=== PATIENT | male | born 1940 | race Caucasian/White ===

== ENCOUNTER → 2016-10-01 | Outpatient (CLI) | payer OTHER ==
[2016-10-01 12:23] LABS: HEMATOCRIT 45.4 % (42-52); MEAN CELL VOLUME 103.2 fL (80-100); MEAN CORPUSCULAR HEMOGLOBIN 35.5 pg (25-34); MEAN CORPUSCULAR HGB CONC 34.4 g/dl (32-36); MEAN PLATELET VOLUME 10.2 fL (7.4-10.4); PLATELET COUNT 212 K/uL (130-400); WHITE BLOOD COUNT 6.31 K/uL (4.8-10.8)
[2016-10-01 13:14] LABS: CALCIUM 9.3 mg/dl (8.5-10.1)
[2016-10-01 13:18] LABS: ALT/SGPT 28 U/L (12-78); BLOOD UREA NITROGEN 20 mg/dl (7-18); BUN/CREATININE RATIO 18.1 (10-20); CARBON DIOXIDE 28 mmol/L (21-32); CHLORIDE 105 mmol/L (98-107); CHOLESTEROL 207 mg/dl (0-200); GLUCOSE 104 mg/dl (70-99); POTASSIUM 4.3 mmol/L (3.5-5.1); SODIUM 139 mmol/L (136-145); TRIGLYCERIDES 67 mg/dl (0-150); VERY LOW DENSITY LIPOPROT CALC 13 mg/dl
[2016-10-01 13:28] LABS: ALKALINE PHOSPHATASE 67 U/L (45-117); AST/SGOT 24 U/L (15-37); CHOLESTEROL/HDL RATIO 2.9; HDL CHOLESTEROL 71 mg/dl; LDL CHOLESTEROL CALCULATED 123 mg/dl
--- NOTE | 2016-10-07 13:09 | CODING QUERY MEDICAL NECESSITY ---
SUPPORTING DIAGNOSIS NEEDED A supporting diagnosis is required for the test/procedure performed on this patient in order for us to be reimbursed by the patient's insurance. Please provide a supporting diagnosis for the following test/procedure listed below next to the test name along with your signature. *If there is no additional diagnosis for this patient that would support the following test/procedure please document that below next to the test/procedure. Test(s)/Procedure(s) that require a supporting diagnosis: DOS 10/01 * Vitamin D DIAGNOSIS: * Vitamin B12 DIAGNOSIS: Provider Signature: Date: Thank you Shanita Lynne Health Information Management Once completed, please kindly fax back to [phone] For questions please call [phone]
== END | disposition home or self-care (01) ==
LOC: C.LABBFT 08:48
PROVIDERS: ATTEND Family Medicine
DX: R14.0 Abdominal distension (gaseous) (principal); R53.83 Other fatigue; E66.9 Obesity, unspecified; I49.9 Cardiac arrhythmia, unspecified; E55.9 Vitamin D deficiency, unspecified

== ENCOUNTER → 2016-12-17 | Outpatient (CLI) | payer OTHER | END | disposition home or self-care (01) | LOC: C.LABPVFM 11:46 | PROVIDERS: ATTEND Nurse Practitioner Family | DX: L02.511 Cutaneous abscess of right hand (principal) ==

== ENCOUNTER → 2017-04-03 | Outpatient (CLI) | payer OTHER ==
[2017-04-03 13:38] LABS: BLOOD UREA NITROGEN 12 mg/dl (7-18); BUN/CREATININE RATIO 14.2 (10-20); CALCIUM 8.4 mg/dl (8.5-10.1); CARBON DIOXIDE 26 mmol/L (21-32); CHLORIDE 108 mmol/L (98-107); CREATININE 0.87 mg/dl (0.60-1.40); GLUCOSE 93 mg/dl (70-99); POTASSIUM 4.2 mmol/L (3.5-5.1); SODIUM 140 mmol/L (136-145)
[2017-04-03 13:46] LABS: ESTIMATED AVERAGE GLUCOSE 108 mg/dl; HA1C FLAG Normal (Normal)
[2017-04-03 13:56] LABS: ALKALINE PHOSPHATASE 71 U/L (45-117); ALT/SGPT 32 U/L (12-78); AST/SGOT 24 U/L (15-37); CHOLESTEROL 183 mg/dl (0-200); CHOLESTEROL/HDL RATIO 2.7; HDL CHOLESTEROL 69 mg/dl; LDL CHOLESTEROL CALCULATED 96 mg/dl; TRIGLYCERIDES 91 mg/dl (0-150); VERY LOW DENSITY LIPOPROT CALC 18 mg/dl
== END | disposition home or self-care (01) ==
LOC: C.LABPVFM 08:55
PROVIDERS: ATTEND Nurse Practitioner Family
DX: Z13.220 Encounter for screening for lipoid disorders (principal); R73.03 Prediabetes; E55.9 Vitamin D deficiency, unspecified

== ENCOUNTER → 2017-05-08 | Outpatient (CLI) | payer OTHER ==
[2017-05-08 13:22] LABS: C-REACTIVE PROTEIN < 0.29 mg/dl (0-0.29); RHEUMATOID FACTOR < 10.0 U/mL (0-15); URIC ACID 5.3 mg/dl (2.6-7.2)
[2017-05-08 13:23] LABS: LYME DISEASE AB IGG NEG (NEG); LYME DISEASE AB IGM NEG (NEG)
== END | disposition home or self-care (01) ==
LOC: C.LABPVFM 09:03
PROVIDERS: ATTEND Nurse Practitioner Family
DX: M79.671 Pain in right foot (principal)

== ENCOUNTER → 2017-12-29 | Outpatient (CLI) | payer OTHER ==
[2017-12-29 17:51] LABS: BASO % 0.1 %; BASO ABS # 0.01 K/uL (0-0.2); EOS % 0.3 %; EOS ABS # 0.02 K/uL (0-0.5); HEMATOCRIT 44.2 % (42-52); HEMOGLOBIN 15.3 g/dL (14.0-18.0); IG# 0.02 K/uL (0.00-0.02); LYMPH % 17.7 %; LYMPH ABS # 1.25 K/uL (1.2-3.4); MEAN CELL VOLUME 102.6 fL (80-100); MEAN CORPUSCULAR HEMOGLOBIN 35.5 pg (25-34); MEAN CORPUSCULAR HGB CONC 34.6 g/dl (32-36); MEAN PLATELET VOLUME 9.8 fL (7.4-10.4); MONO % 8.3 %; MONO ABS # 0.59 K/uL (0.11-0.59); NEUT % 73.3 %; NEUT ABS # 5.19 K/uL (1.4-6.5); PLATELET COUNT 210 K/uL (130-400); RED CELL DISTRIBUTION WIDTH CV 13.7 % (11.5-14.5); RED CELL DISTRIBUTION WIDTH SD 51.4 fL (36.4-46.3); WHITE BLOOD COUNT 7.08 K/uL (4.8-10.8)
[2017-12-29 18:07] LABS: ALBUMIN 3.8 gm/dl (3.4-5.0); ALKALINE PHOSPHATASE 56 U/L (45-117); ALT/SGPT 29 U/L (12-78); AST/SGOT 21 U/L (15-37); CREATININE 1.06 mg/dl (0.60-1.40); TOTAL PROTEIN 7.3 gm/dl (6.4-8.2)
== END | disposition home or self-care (01) ==
LOC: C.LAB1850 16:20
PROVIDERS: ATTEND Internal Medicine Rheumatology
DX: Z79.899 Other long term (current) drug therapy (principal)

== ENCOUNTER 2023-07-12 23:01 | Inpatient (IN) ==
[2023-07-12 23:37] LABS: Basophils # (auto) 0.02 K/uL (0.00-0.20); Basophils % (auto) 0.3 %; Eosinophils # (auto) 0.02 K/uL (0.00-0.50); Eosinophils % (auto) 0.3 %; Hematocrit (blood only) 43.9 % (42.0-52.0); Hemoglobin 14.6 g/dl (14.0-18.0); Immature Granulocytes # (auto) 0.02 K/uL (0.01-0.20); Immature Granulocytes % (auto) 0.3 %; Lymphocytes # (auto) 0.76 K/uL (1.20-3.40); Lymphocytes % (auto) 10.7 %; Mean Corpuscular Hemoglobin 35.8 pg (25.0-34.0); Mean Corpuscular Hgb Conc 33.3 g/dL (32.0-36.0); Mean Corpuscular Volume 107.6 fL (80.0-100.0); Mean Platelet Volume 9.7 fL (9.4-12.4); Monocytes # (auto) 0.66 K/uL (0.11-0.59); Monocytes % (auto) 9.3 %; Neutrophils # (auto) 5.65 K/uL (1.40-6.50); Neutrophils % (auto) 79.1 %; Platelet Count 194 K/uL (130-400); RDW Coefficient of Variation 14.5 % (11.5-14.5); RDW Standard Deviation 57.3 fL (36.4-46.3); Red Blood Count 4.08 M/uL (4.70-6.10); White Blood Count 7.13 K/ul (4.8-10.8)
[2023-07-12 23:52] LABS: Albumin Globulin Ratio 1.3 (0.9-2); Albumin Level 3.8 gm/dl (3.4-5.0); BUN Creatinine Ratio 24.5 (10-20); Bilirubin,Total 1.1 mg/dl (0.2-1.0); Calcium 9.1 mg/dl (8.6-10.3); Creatinine Clr Calc Pharmacy 64.5 ml/min; Est GFR (African American) 85.9 ml/min; Est GFR (Non-African American) 74.2 ml/min; Potassium 3.7 mmol/L (3.5-5.1); Total Protein 6.8 gm/dl (6.0-8.3)
[2023-07-13 00:06] LABS: Thyroid Stimulating Hormone 4.302 uIu/ml (0.300-4.500)
[2023-07-13 01:22] LABS: Troponin I High Sensitivity 11.2 pg/ml (0-20)
[2023-07-13 01:47] LABS: Adenovirus PCR Not Detected (NotDetected); Bordetella parapertussis PCR Not Detected (NotDetected); Bordetella pertussis PCR Not Detected (NotDetected); Chlamydia pneumoniae PCR Not Detected (NotDetected); Coronavirus 229E PCR Not Detected (NotDetected); Coronavirus CoV-2 (COVID19)PCR Not Detected (NotDetected); Coronavirus HKU1 PCR Not Detected (NotDetected); Coronavirus NL63 PCR Not Detected (NotDetected); Coronavirus OC43PCR Not Detected (NotDetected); Human Metapneumovirus PCR Not Detected (NotDetected); Influenza A PCR Not Detected (NotDetected); Influenza B PCR Not Detected (NotDetected); Mycoplasma pneumoniae PCR Not Detected (NotDetected); Parainfluenza Virus 1 PCR Not Detected (NotDetected); Parainfluenza Virus 2 PCR Not Detected (NotDetected); Parainfluenza Virus 3 PCR Not Detected (NotDetected); Parainfluenza Virus 4 PCR Not Detected (NotDetected); Respiratory Syncytial VirusPCR Not Detected (NotDetected); Rhinovirus/Enterovirus PCR Not Detected (NotDetected)
--- OUTSIDE RECORDS SUMMARY | 2023-07-13 02:53 | External Medical Summary | Summary of Care ---
Author Name Unknown Organization [facility] Address [address] [facility] [place] [address] Phone [phone] Care Team Providers Care Coach Wirer Name Role Phone Benny Waite DO Primary Care Provider [phone] Reason for Visit * Reason Onset Date Comments Referral 07/08/2023 [facility] Pain Encounter Details Date Type Department Care Team (Late st Contact Info) Description 07/08/2023 Telephone Pharmacy Call Center [phone] [place] [address] Pharmacist2, [facility] [address] [facility] [address] Referral ([facility] Pain) Allergies Active Allergy Reactions Criticality Noted Date Comments Adhesive Tape 02/04/2017 Levofloxacin 09/01/2019 documented as of this encounter (statuses as of 07/08/2023) Medications Medication Sig Dispensed Refills Start Date End Date Status Acetaminophen 500 MG Oral Tablet TAKE 1 IN THE MORNING AND 2 IN THE EVENING 0 Active Aspirin 81 MG Oral Tablet Chewable Take by mouth 1 Tablet in the morning. Do not start before February 06, 2022. 0 02/06/2022 Active Docusate Sodium 100 MG Oral Capsule Take 1 Capsule by mouth at noon and 1 Capsule in the evening. 0 Active Metoprolol Succinate ER 25 MG Oral Tablet Extended Release 24 Hour (toPROL XL)Indications:Bander And Cellophaner Machine gunjan atrial fibrillation (HCC),CHF (congestive heart failure), NYHA class I, chronic, diastolic (HCC) TAKE ONE-HALF TABLET BY MOUTH IN THE MORNING 45 Tablet 3 02/22/2023 02/22/2024 Active Neomycin-Polymyxin- HC 3.5-72153-4 Otic SolutionIndications :Other infective acute otitis externa of left ear Administer 4 Drops into the left ear in the morning and 4 Drops at noon and 4 Drops before bedtime. To affected ear for 10 days 10 mL 0 05/13/2023 Active Allopurinol 300 MG Oral Tablet (Zyloprim) Take 1 Tablet by mouth in the morning. 100 Tablet 3 05/16/2023 Active Gabapentin 300 MG Oral Capsule (Neurontin)Indicati ons:Acute bilateral low back pain without sciatica,Senile purpura (HCC) Take 2 tablets in AM and 1 tablet in PM 0 05/19/2023 Active Finasteride 5 MG Oral Tablet (Proscar)Indication s:BPH with obstruction/lower urinary tract symptoms TAKE ONE TABLET BY MOUTH EVERY MORNING 100 Tablet 2 05/25/2023 Active busPIRone HCl 5 MG Oral Tablet (Buspar)Indications :Anxiety Take 1 Tablet by mouth in the morning and 1 Tablet before bedtime. 200 Tablet 3 06/18/2023 Active busPIRone HCl 5 MG Oral Tablet (Buspar)Indications :Anxiety Take 1 Tablet by mouth in the morning and 1 Tablet before bedtime. 20 Tablet 0 06/18/2023 Active DULoxetine HCl 30 MG Oral Capsule Delayed Release Particles (Cymbalta)Indicatio ns:Lumbar degenerative disc disease Take 1 Capsule by mouth in the morning. Do not cut, crush or chew. 100 Capsule 3 07/07/2023 Active traMADol HCl 50 MG Oral Tablet (Ultram)Indications :Lumbar degenerative disc disease Take 1 Tablet by mouth every 6 hours as needed for Pain, Severe. 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 02/05/2022 Permanent atrial fibrillation 12/22/2021 Overview: Added automatically from request for surgery [id number] Current 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 07/09/2021 Moderate to severe mitral regurgitation 04/03/20 Lumbar degenerative disc disease 04/03/2021 DEX (obstructive sleep apnea) 10/01/2020 Encounter for long-term (current) use of medicat ions 05/09/2019 CHF (congestive heart failur e), NYHA class I, chronic, diastolic 05/02/2019 BPH with obstruction/lower urinary tract symptom s 09/27/2017 Macular puckering 12/19/2008 Elevated prostate specific antigen (PSA) 009 ADVANCE DIRECTIVE INFORMATION 03/31/2007 Overview: No, Advance Directive brochure offered , patient declined. documented as of this encounter (statuses as of 07/08/2023) Resolved Problems Problem Noted Date Diagnosed Date Resolved Date Severe obesity with body mas s index (BMI) of 35.0 to 39.9 with serious comorbidity 04/24/2022 Aortic root enlargement 10/01/202001/12 Enlarged aorta 05/02/2019 08/19/2020 Senile purpura 05/02/2019 08/19/2020 Mixed connective tissue disease 05/07/2018 08/19/2020 Chronic atrial fibrillation 01/18/2018 12/11/2022 documented as of this encounter (statuses as of 07/08/2023) Immunizations Name Administration Dates Next Due COVID-19 mRNA, LNP-s, No Pre serve, 2-Dose Series (Moderna) 08/20/2020,07/17/2020 COVID-19 mRNA, LNP-s, No Pre serve, 2-Dose Series (Sinnet) 05/14/2021 COVID-19, LNP-s, No Preserve , Robbie-sucrose, Ages 12+ (Pfizer) 11/04/2021 COVID-19, MRNA-LNP, 23-24, P F, 30 MCG/0.3 mL, 12 YRS AND ABOVE, IM ([employer]) 04/16/2023 Covid-19, Mrna, Lnp-s, Pf, B ivalent, 30 Mcg, IM, 12 yrs and above (Pfizer) 03/17/2022 Pneumococcal Conjugate Vacc, 13 Valent (Prevnar) 04/20/2018 Pneumococcal Polysaccharide PPV23 (Pneumovax) 05/02/2019 Season Influenza, Quad, PF, Adjuvanted, 65+ Yrs, IM (FLUAD) 02/29/2020 Seasonal Influenza Virus Vac cine, Unspecified Formulation 02/24/2017,03/14/2016,02/22/2015 Seasonal Influenza, PF, 6 M & above, IM , (FluLaval or Fluzone) 03/09/2018 Seasonal Influenza, Quadriva lent Hd (Fluzone Hd) 02/19/2023,03/12/2022,03/13/2021 Seasonal Influenza, Trivalen t, Adjuvanted, 65+ yrs 03/22/2019 TDAP (age 10 and older)(Boostrix) 04/20/2018 Varicella Zoster Vaccine (Adult) 04/18/2015 Zoster Vaccine Recombinant (Shingrix) 12/13/2019 ,07/17/2019 documented as of this encounter Social History Tobacco Use Types Packs/Day Years Used Date Smoking Tobacco: Never Passive Smoke Exposure: Never Smokeless Tobacco: Never Alcohol Use Standard Drinks/Week Comments Not Currently 0 (1 standard drink = 0.6 oz pur e alcohol) AUDIT-C Answer Date Recorded Q1: How often do you have a drink containing alc ohol? Monthly or less 04/30/2020 Q2: How many drinks containi ng alcohol do you have on a typical day when you are drinking? 1 or 2 04/30/2020 Q3: How often do you have si x or more drinks on one occasion? Not asked 04/30/2020 PHQ-2 Answer Date Recorded PHQ Adult Total Score 2 06/16/2023 Hunger Vital Sign Answer Date Recorded Within the past 12 months, y ou worried that your food would run out before you got the money to buy more. Never true 06/16/19 24 Within the past 12 months, t he food you bought just didn't last and you didn't have money to get more. Never true 06/16/2023 Sex and Gender Information Value Date Recorded Sex Assigned at Male 09/15/2018 8:52 AM EDT Gender Identity Male 09/15/2018 8:52 AM EDT Sexual Orientation Straight 09/15/2018 8: 52 AM EDT Job Start Date Occupation Industry Not on file Not on file Not on file documented as of this encounter Functional Status Functional Status Response Date of Assess ment Are you deaf or do you have serious difficulty h earing? No 11/16/2022 Are you blind or do you have serious difficulty seeing, even when wearing glasses? No 11/16/2022 Do you have serious difficul ty walking or climbing stairs? (5 years old or older) No 11/16/2022 Do you have difficulty dress ing or bathing? (5 years old or older) No 11/16/2022 Because of a physical, menta l, or emotional condition, do you have difficulty doing errands alone such as visiting a doctor s office or shopping? (15 years old or older) No 11/17/19 Cognitive Status Response Date of Assessm ent Because of a physical, menta l, or emotional condition, do you have serious difficulty concentrating, remembering, or making decisions? (5 years old or older) No 11/16/2022 documented as of this encounter Miscellaneous Notes * Telephone Encounter - Benny Waite DO - 07/08/2023 3:43 PM EST Refer to Pain Management at [facility] * Telephone Encounter - Ki Swift RPh - 07/08/2023 3:36 PM EST [facility] is unable to accept a referral for patients on opioids without a UDS completed in the last 3 months. Will forward to pcp, please inform [facility] when UDS has been completed. Referral received and reviewed. Reason for referral: Pain Need clarification from referring provider before scheduling. Ki Swift RPh 07/08/2023, 3:37 PM * Telephone Encounter - Velma De La Garza, sap hana developer - 07/08/2023 2:52 PM EST Comments Pharmacist Medication Therapy Management: Minimum frequency patient should be seen in person for medication management: as appropriate per clinical condition and patient status By my signature, I understand that my patient Nikolas Silvestre will have his medication therapy managed by the [facility] Medication Therapy Disease Management [facility] ([facility]) per established policies, procedures, and protocols. I also certify that this referral may serve as an initiation of service forthe management of drug therapy in the above noted patient. [facility] providers will be responsible for scheduling patient visits, obtaining appropriate laboratory studies, and adjusting medication management therapy per patient's need, in addition to those roles spelled out in the clinic policy, procedures, and drug management protocols. I understand that the service provided by the [facility] Clinic is voluntary and have informed patient that they can refuse the service at their discretion. I am aware that the [facility] will provide me with a copy of the patient encounter via my [employer]. I authorize the [facility] to carry out these activities on my behalf. I consider this program to be a necessary part of the patient's medical care. Marnie Baker LPN Order Specific Questions Referral Priority Within 30 days (routine) Where should this appointment be scheduled? [facility] Referring Provider Role: Primary Care Reason for Referral: Pain Pain Diagnosis: Back pain Pain Treatment Options: Opioids and/or Non-opioids Does patient have a signed TETE? This is required for patients on opioids Yes Has patient completed a Urine Drug Screen in the past 3 months? This is required for patients on opioids No Pain Treatment Goal: Med Optimization documented in this encounter Plan of Treatment Upcoming Encounters Date Type Department Care Team (Late st Contact Info) Description 08/25/2023 9:40 AM EDT Office Visit Family Practice [address] [facility] [address] [place] [address] Benny Waite DO [address] [facility] [place] [address] 12/21/2023 11:00 AM EDT Nurse Only Ancillary [address] [place] [address] College, Nurse Annual Wellness Visit [address] [place] [address] 01/05/2024 7:15 AM EDT Cardiac Studies Cardiac Studies, [facility] [address] [place] [address] 01/05/2024 8:30 AM EDT Office Visit Cardiology, [facility] [address] [place] [address] Franco Mcgregor MD [address] [place] [address] Health Maintenance Due Date Last Done Comments Hepatitis B (1 of 3 - Risk 3-dose series) 1998 Depression Screening 06/16/2024 06/16/2023 DTaP,Tdap,and Td Vaccines (2 - Td or Tdap) 04/20/2028 04/20/2018 Pneumococcal Vaccine: 65+ Years Completed 05/02/2019, 04/20/2018 Zoster Vaccines Completed 12/13/2019, 08/2019, 04/18/2015 Influenza Vaccine (FLU shot) Completed 01/2023, 03/12/2022, 03/13/2021, Additional history exists COVID-19 Vaccine Completed 04/16/2023, 09/2021, 11/04/2021, Additional history exists GARDASIL-HPV IMMUNIZATION SERIES Aged Out No longer eligible based on patient's age to complete this topic MENINGOCOCCAL (MENACTRA/MENVEO) Aged Out No longer eligible based on patient's age to complete this topic documented as of this encounter Medical Devices Implanted Type Area Edging Machine Operator Device Identifier Shelf Expiration Date Model / Serial / Lot Device Watchman Flx 35mm - [id number] Implanted:Qty: 1 on 02/05/2022 by Diamond Teran IV, [place] at [facility] [employer] : INTRV CARD [id number] 10/20/2024 [id number] / / [id number] Cath Thermodilution 6fr - [id number] Implanted:Qty: 1 on 07/31/2022 by Franco Mcgregor MD at [facility] [employer] [id number] 04/30/2024 [id number] / / [id number] Clip Delivery Sytem G4 Xtw - [id number] Implanted:Qty: 1 on 11/16/2022 at [facility] [employer] [id number] 09/10/2023 [id number] / / [id number] documented as of this encounter Advance Directives Latest Code Status on File Code Status Date Activated Date Inactivated Comments Full Code 11/16/2022 4:24 PM 11/17/2022 8:54 PM This or natalia reflects the patients wishes and were consensually agreed upon. Question Answer Comments Discussion of Advance Directives occurred with: Patient Code Status History Code Status Date Activated Date Inactivated Comments Full Code 02/05/2022 9:21 AM 02/06/2022 2:35 PM This order reflects the patients wishes and were consensually agreed upon. Question Answer Comments Discussion of Advance Directives occurred with: Patient Full Code 09/13/2012 2:00 PM 09/14/2012 5:59 PM This or natalia reflects the patients wishes and were consensually agreed upon. Question Answer Comments Discussion of Advance Directives occurred with: Not Discussed Full Code 10/22/2011 4:13 PM 10/23/2011 5:41 PM This order reflects the patients wishes and were consensually agreed upon. Care Teams Coach Wirer Relationship Specialty Start Date End Date Benny Waite DO [address] [place] [address] PCP - General Internal Medicine 04/03/21 documented as of this encounter
--- OUTSIDE RECORDS SUMMARY | 2023-07-13 02:53 | External Medical Summary | Summary of Care ---
Author Name Unknown Organization [facility] Address [address] [facility] [place] [address] Phone [phone] Care Team Providers Care Specimen Accessioner Name Role Phone Benny Waite DO Primary Care Provider [phone] Reason for Visit * Reason Onset Date Comments Advice 07/08/2023 Encounter Details Date Type Department Care Team (Late st Contact Info) Description 07/08/2023 Telephone Family Practice 65 [facility] [place] [address] [place] [id number] Benny Waite [address] [place], [place] [id number] Advice Allergies Active Allergy Reactions Criticality Noted Date [...] Oral Tablet Extended Release 24 Hour (toPROL XL)Indications:Veneer Splicer gunjan atrial fibrillation (HCC),CHF (congestive heart failure), NYHA class I, chronic, diastolic (HCC) TAKE ONE-HALF TABLET BY MOUTH IN THE MORNING 45 Tablet 3 02/22/2023 02/22/2024 Active Neomycin-Polymyxin- HC 3.5-37673-9 Otic SolutionIndications :Other infective acute otitis externa [...] CHF (congestive heart failure) 11/16/2022 Atherosclerosis of [place] co 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 pectoris 08/11/2022 Severe tricuspid regurgitation 08/11/2022 Gout, arthropathy 07/20/2022 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 02/05/2022 Permanent atrial fibrillation 12/22/2021 Overview: Added automatically from request for surgery [id number] Current moderate episode of major depressive disorder [...] mRNA, LNP-s, No Pre serve, 2-Dose Series (In[employer]) 05/14/2021 COVID-19, LNP-s, No Preserve , Robbie-sucrose, Ages 12+ (Pfizer) 11/04/2021 COVID-19, MRNA-LNP, 23-24, P F, 30 MCG/0.3 mL, 12 YRS AND ABOVE, IM [facility] 04/16/2023 Covid-19, Mrna, Lnp-s, Pf, B ivalent, [...] encounter Miscellaneous Notes * Telephone Encounter - Marnie Bobo RN - 07/08/2023 5:37 PM EST Pt calling in-states he needed medication for congestion and went to [facility]-he got mucinex DM-states they did not have any plain mucinex or coricidin HBP. Told him he should not take the mucinex DM since he has high blood pressure. Verified with Dr Spears and she too states he should not take the mucinex DM. Notified pt of the recommendations and told him to try at another pharmacy or [facility]. Pt verbalized understanding. documented in this encounter Plan of Treatment Upcoming Encounters Date Type Department Care Team (Late st Contact Info) Description 08/25/2023 9:40 AM EDT Office Visit Family Practice [address] [place] [address] [place] [address] Benny Waite, DO 293 [place] [address] 12/21/2023 11:00 AM EDT Nurse Only Ancillary [address] [place] [address] [place] [address] College, Nurse Annual Wellness Visit [address] [facility] [address] [place] [address] 01/05/2024 7:15 AM EDT Cardiac Studies Cardiac Studies, [facility] [address] [place] [address] 01/05/2024 8:30 AM EDT Office Visit Cardiology, [facility] [address] [place] [address] Franco Mcgregor MD [address] [place] [address] Health Maintenance Due Date Last Done Comments [...] this encounter Medical Devices Implanted Type Area Laser Cutter Device Identifier Shelf Expiration Date Model / Serial / Lot Device Watchman Flx 35mm - [id number] Implanted:Qty: 1 on 02/05/2022 [place] Diamond Teran IV, [place] [facility] [employer] : INTRV CARD [id number] 10/20/2024 [id number] / / [id number] Cath Thermodilution 6fr - [id number] Implanted:Qty: 1 on 07/31/2022 by Franco Mcgregor MD [place] [facility] [employer] [id number] 04/30/2024 [id number] / / [id number] Clip Delivery Sytem G4 Xtw - [id number] Implanted:Qty: 1 on 11/16/2022 at [facility] [employer] [id number] 09/10/2023 [id number] / / [id number] documented as of this encounter Advance [...] and were consensually agreed upon. Care Teams Specimen Accessioner Relationship Specialty Start Date End Date Benny Waite DO [address] [place] [address] PCP - General Internal Medicine 04/03/21 documented as of this encounter
--- OUTSIDE RECORDS SUMMARY | 2023-07-13 02:53 | External Medical Summary | Summary of Care ---
Author Name Unknown Organization [facility] Address [address] [place] [address] Phone [phone] Care Team Providers Care Kiln Worker Name Role Phone Benny Waite DO Primary Care Provider [phone] Reason for Referral * Evaluate & Treat - Unlimited Visits (Within 30 days (routine)) - Authorized Specialty Diagnoses / Procedures Referred By Elaina hernandez Referred To Contact Pharmacist / Pharmacy Diagnoses Lumbar degenerative disc disease Benny Waite DO [address] [place] [address] Referral ID Status Reason Start Date Expiration Date Visits Requested Visits Authorized [id number] Authorized Specialty Services Required 07/07/2023 99 99 Question Answer Referral Priority Within 30 days (routine) Where should this appointment be scheduled? [facility] Referring Provider Role: Primary Care Reason for Referral: Pain Pain Diagnosis: Back pain Pain Treatment Options: Opioids and/or Non-opioids Does patient have a signed TETE? This is required for patients on opioids Yes Has patient completed a Urine Drug Screen in the past 3 months? This is required for patients on opioids No Pain Treatment Goal: Med Optimization Comments Pharmacist Medication Therapy Management: Minimum frequency patient should be seen in person for medication management: as appropriate per clinical condition and patient status By my signature, I understand that my patient Nikolas Silvestre will have his medication therapy managed by the [facility] Medication Therapy Disease Management [facility] ([facility]) per established policies, procedures, and protocols. I also certify that this referral may serve as an initiation of service for the management of drug therapy in the above noted patient. [facility] providers will be responsible for scheduling patient visits, obtaining appropriate laboratory studies, and adjusting medication management therapy per patient's need, in addition to those roles spelled out in the clinic policy, procedures, and drug management protocols. I understand that the service provided by the [facility] is voluntary and have informed patient that they can refuse the service at their discretion. I am aware that the [facility] will provide me with a copy of the patient encounter via my [employer] InBitTorrentet. I authorize the [facility] to carry out these activities on my behalf. I consider this program to be a necessary part of the patient's medical care. Marnie Baker LPN Reason for Visit * Reason Onset Date Comments Advice 07/07/2023 Claudia tomas Encounter Details Date Type Department Care Team (Late st Contact Info) Description 07/07/2023 Telephone Family Practice [facility] [address] [place] [address] Benny Waite, [address] [place] [address] Advice (Claudia tomas) Allergies Active Allergy Reactions Criticality Noted Date [...] Oral Tablet Extended Release 24 Hour (toPROL XL)Indications:Chr onic atrial fibrillation (HCC),CHF (congestive heart failure), NYHA class I, chronic, diastolic (HCC) TAKE ONE-HALF TABLET BY MOUTH IN THE MORNING 45 Tablet 3 02/22/2023 4 Active Neomycin-Polymyxin -HC 3.5-77368-9 Otic SolutionIndication s:Other infective acute otitis externa of left ear Administer 4 Drops into the left ear in the morning and 4 Drops at noon and 4 Drops before bedtime. To affected ear for 10 days 10 mL 0 05/13/2023 Active Allopurinol 300 MG Oral Tablet (Zyloprim) Take 1 Tablet by mouth in the morning. 100 Tablet 3 05/16/2023 Active Gabapentin 300 MG Oral Capsule (Neurontin)Indicat ions:Acute bilateral low back pain without sciatica,Senile purpura (HCC) Take 2 tablets in AM and 1 tablet in PM 0 05/19/2023 Active Finasteride 5 MG Oral Tablet (Proscar)Indicatio ns:BPH with obstruction/lower urinary tract symptoms TAKE ONE TABLET BY MOUTH EVERY MORNING 100 Tablet 2 05/25/2023 Active busPIRone HCl 5 MG Oral Tablet (Buspar)Indication s:Anxiety Take 1 Tablet by mouth in the morning and 1 Tablet before bedtime. 200 Tablet 3 06/18/2023 Active busPIRone HCl 5 MG Oral Tablet (Buspar)Indication s:Anxiety Take 1 Tablet by mouth in the morning and 1 Tablet before bedtime. 20 Tablet 0 06/18/2023 Active DULoxetine HCl 30 MG Oral Capsule Delayed Release Particles (Cymbalta)Indicati ons:Lumbar degenerative disc disease Take 1 Capsule by mouth in the morning. Do not cut, crush or chew. 100 Capsule 3 07/07/2023 Active traMADol HCl 50 MG Oral Tablet (Ultram)Indication s:Lumbar degenerative disc disease Take 1 Tablet by mouth every 6 hours as needed for Pain, Severe. 30 Tablet 0 07/07/2023 Active traMADol HCl 50 MG Oral Tablet (Ultram)Indication s:Lumbar degenerative disc disease Take 1 Tablet by mouth every 6 hours as needed for Pain, Severe. 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 02/05/2022 Permanent atrial fibrillation 12/22/2021 Overview: Added automatically from request for surgery [id number] Current moderate episode of major depressive disorder [...] with serious comorbidity 04/24/2022 Aortic root enlargement 10/01/2020 0809/2022 Enlarged aorta 05/02/2019 08/19/2020 Senile purpura 05/02/2019 08/19/2020 Mixed connective tissue disease 05/07/2018 08/19/2020 Chronic atrial fibrillation 01/18/2018 12/11/2022 documented as of this encounter (statuses as of 07/08/2023) Immunizations Name Administration Dates Next Due COVID-19 mRNA, LNP-s, No Pre serve, 2-Dose Series (Moderna) 08/20/2020,07/17/2020 COVID-19 mRNA, LNP-s, No Pre serve, 2-Dose Series (Pfizer) 05/14/2021 COVID-19, LNP-s, No Preserve , Robbie-sucrose, Ages 12+ (Pfizer) 11/04/2021 COVID-19, MRNA-LNP, 23-24, P F, 30 MCG/0.3 mL, 12 YRS AND ABOVE, IM (PFIZER-Comirnaty) 04/16/2023 Covid-19, Mrna, Lnp-s, Pf, B ivalent, [...] encounter Miscellaneous Notes * Telephone Encounter - Macy Carbajal OSA - 07/08/2023 4:39 PM EST Per MD request records sent to [facility] manag[facility] * Telephone Encounter - Antonietta Nguyễn RPh - 07/08/2023 9:02 AM EST MTM pain appointment is being processed. * Telephone Encounter - Marnie Baker LPN - 07/07/2023 3:31 PM EST Please schedule mtm pain appt * Telephone Encounter - Benny Waite DO - 07/07/2023 3:15 PM EST Will need TETE and urine tox screen at next visit * Telephone Encounter - Benny Waite DO - 07/07/2023 3:14 PM EST I have reviewed the patients controlled substance dispensing history in the Prescription Drug Monitoring Program in compliance with the [facility] regulations before prescribing a controlled substance. Last Tox Screen Results: No results found. However, due to the size of the patient record, not all encounters were searched.Please check Results Review for a complete set of results. * Telephone Encounter - Marnie Baker LPN - 07/07/2023 3:02 PM EST Patient is aware and will comply. Will do a home test. Thank you * Telephone Encounter - Benny Waite DO - 07/07/2023 11:22 AM EST Refer to [facility] Pain Management. Start Duloxetine 30 mg daily. Medication will take up to 30 days to start working Continue tramadol and Gabapentin * Telephone Encounter - Jena Monaco [facility] - 07/07/2023 11:03 AM EST Patient reports [facility] is unable to offer him any more injections for his back. Heis requesting pain medication for his back. Will forward this to Dr Waite. Patient also experiencing upper respiratory symptoms.. headache and runny nose. He states he was seen yesterday at [facility] but they never completed the respiratory panel. Patient looking for advise from Dr Waite. Offered for patient to have swab completed at [address] [place] [address], however, patient refused. Jena Monaco, Pharm D, [facility] Clinical Pharmacist Pat [address] [facility] 07/07/2023, 11:10 AM * Telephone Encounter - Macy Carbajal OSA - 07/07/2023 10:44 AM EST Would like to speak to Antonietta, wouldn't say about what documented in this encounter Plan of Treatment Upcoming Encounters Date Type Department Care Team (Late st Contact Info) Description 08/25/2023 9:40 AM EDT Office Visit Family Practice [facility] [address] [place] [address] Benny Waite, [address] [place] [address] 12/21/2023 11:00 AM EDT Nurse Only Ancillary [facility] [address] [place] [address] College, Nurse Annual Wellness Visit [address] [address] 01/05/2024 7:15 AM EDT Cardiac Studies Cardiac Studies, [facility] [address] [place] [address] 01/05/2024 8:30 AM EDT Office Visit Cardiology, [facility] [address] [place] [address] Franco Mcgregor MD [address] [place] [address] Scheduled Referrals Name Type Priority Associated Diagnoses Orde r Schedule PHARMACIST MEDS THERAPY MGMT REFERRAL OP Referral Within 30 days (routine) Lumbar degenerative disc disease Ordered: 07/07/2023 Health Maintenance Due Date Last Done Comments Hepatitis B (1 of 3 - Risk 3-dose series) 1998 Depression Screening 06/16/2024 06/16/2023 DTaP,Tdap,and Td Vaccines (2 - Td or Tdap) 04/20/2028 04/20/2018 Pneumococcal Vaccine: 65+ Years Completed 05/02/2019, 04/20/2018 Zoster Vaccines Completed 12/13/2019, 02/08/2019, 04/18/2015 Influenza Vaccine (FLU shot) Completed 01/2023, 03/12/2022, 03/13/2021, Additional history exists COVID-19 Vaccine Completed 04/16/2023, 09/2021, 11/04/2021, Additional history exists GARDASIL-HPV IMMUNIZATION SERIES Aged Out No longer eligible based on patient's age to complete this topic MENINGOCOCCAL (MENACTRA/MENVEO) Aged Out No longer eligible based on patient's age to complete this topic documented as of this encounter Medical Devices Implanted Type Area Fireworks Assembler Device Identifier Shelf Expiration Date Model / Serial / Lot Device Watchman Flx 35mm - [id number] Implanted:Qty: 1 on 02/05/2022 by Diamond Teran IV, MD at [facility] Related Content Database (RCD[employer]) SCIENTIFIC : INTRV CARD [id number] 10/20/2024 [id number] / / [id number] Cath Thermodilution 6fr - [id number] Implanted:Qty: 1 on 07/31/2022 by Franco Mcgregor MD at [facility] [employer] [id number] 04/30/2024 [id number] / / [id number] Clip Delivery Sytem G4 Xtw - [id number] Implanted:Qty: 1 on 11/16/2022 at [facility] [employer] [id number] 09/10/2023 [id number] / / [id number] documented as of this encounter Visit Diagnoses Diagnosis Lumbar degenerative disc disease Degeneration of lumbar or lumbosacral intervertebral disc documented in this encounter Advance Directives Latest Code Status [...] and were consensually agreed upon. Care Teams Kiln Worker Relationship Specialty Start Date End Date Benny Waite DO [address] [facility] [place] [address] PCP - General Internal Medicine 04/03/21 documented as of this encounter
--- OUTSIDE RECORDS SUMMARY | 2023-07-13 02:53 | External Medical Summary | Summary of Care ---
Author Name Unknown Organization [facility] Address [address] [facility] [place] [address] Phone [phone] Care Team Providers Care Furnishings Conservator Name Role Phone Benny Waite DO Primary Care Provider [phone] Reason for Visit * Reason Onset Date Comments Referral 07/08/2023 [facility] Pain Encounter Details Date Type Department Care Team (Late st Contact Info) Description 07/08/2023 Telephone Pharmacy Call Center [address] [place] [address] Pharmacist2, [facility] [address] [facility] [address] [facility] ([facility] Pain) Allergies Active Allergy Reactions Criticality Noted [...] Oral Tablet Extended Release 24 Hour (toPROL XL)Indications:Applications Processor gunjan atrial fibrillation (HCC),CHF (congestive heart failure), NYHA class I, chronic, diastolic (HCC) TAKE ONE-HALF TABLET BY MOUTH IN THE MORNING 45 Tablet 3 02/22/2023 02/22/2024 Active Neomycin-Polymyxin- HC 3.5-51411-3 Otic SolutionIndications :Other infective acute otitis externa [...] CHF (congestive heart failure) 11/16/2022 Atherosclerosis of [place] co 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 pectoris 08/11/2022 Severe tricuspid regurgitation 08/11/2022 Gout, arthropathy 07/20/2022 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 02/05/2022 Permanent atrial fibrillation 12/22/2021 Overview: Added automatically from request for surgery [id number] Current moderate episode of major depressive disorder [...] mRNA, LNP-s, No Pre serve, 2-Dose Series ([employer]) 05/14/2021 COVID-19, LNP-s, No Preserve , Robbie-sucrose, Ages 12+ (Pfizer) 11/04/2021 COVID-19, MRNA-LNP, 23-24, P F, 30 MCG/0.3 mL, 12 YRS AND ABOVE, IM (Bulbstorm-Comirnat) 04/16/2023 Covid-19, Mrna, Lnp-s, Pf, B ivalent, [...] PM EST Refer to Pain Management at [facility] * Telephone Encounter - Ki Swift RPh - 07/08/2023 3:36 PM EST [facility] is unable to accept a referral for patients on opioids without a UDS completed in the last 3 months. Will forward to pcp, please inform [facility] when UDS has been completed. Referral received and reviewed. Reason for referral: Pain Need clarification from referring provider before scheduling. Ki Swift RPh 07/08/2023, 3:37 PM * Telephone Encounter - Velma De La Garza, home appliance washing machine mechanic - 07/08/2023 2:52 PM EST Comments Pharmacist Medication Therapy Management: Minimum frequency patient should be seen in person for medication management: as appropriate per clinical condition and patient status By my signature, I understand that my patient Nikolas Silvestre will have his medication therapy managed by the [facility] Medication Therapy Disease Management Clinic ([facility]) per established policies, procedures, and protocols. I also certify that this referral may serve as an initiation of service forthe management of drug therapy in the above noted patient. [facility] providers will be responsible for scheduling patient visits, obtaining appropriate laboratory studies, and adjusting medication management therapy per patient's need, in addition to those roles spelled out in the clinic policy, procedures, and drug management protocols. I understand that the service provided by the [facility] is voluntary and have informed patient that they can refuse the service at their discretion. I am aware that the [facility] will provide me with a copy of the patient encounter via my [employer]. I authorize the [facility] to carry out these activities on my behalf. I consider this program to be a necessary part of the patient's medical care. Marnie Baker LPN Order Specific Questions Referral Priority Within 30 days (routine) Where should this appointment be scheduled? [facility] Referring Provider Role: Primary Care Reason for [...] AM EDT Office Visit Family Practice 65 [facility] 293 [facility] [place] [address] Benny Waite DO 293 [place] [address] 12/21/2023 11:00 AM EDT Nurse Only Ancillary [address] [place] [address] College, Nurse Annual Wellness Visit 65 [facility] 293 [facility] [place] [address] 01/05/2024 7:15 AM EDT Cardiac Studies Cardiac Studies, [facility] [address] [place] [address] 01/05/2024 8:30 AM EDT Office Visit Cardiology, [facility] [address] [place] [address] Franco Mcgregor MD [address] [place] [address] Health Maintenance Due Date Last Done Comments [...] this encounter Medical Devices Implanted Type Area Continuous Absorption Process Operator Device Identifier Shelf Expiration Date Model / Serial / Lot Device Watchman Flx 35mm - [id number] Implanted:Qty: 1 on 02/05/2022 by Diamond Teran IV, MD at [facility] Mlog : INTRV CARD [id number] 10/20/2024 [id number] / / [id number] Cath Thermodilution 6fr - [id number] Implanted:Qty: 1 on 07/31/2022 by Franco Mcgregor MD at [facility] [employer] [id number] 04/30/2024 [id number] / / [id number] Clip Delivery Sytem G4 Xtw - [id number] Implanted:Qty: 1 on 11/16/2022 at [facility] [employer] [id number] 09/10/2023 [id number] / / [id number] documented as of this encounter Advance [...] and were consensually agreed upon. Care Teams Furnishings Conservator Relationship Specialty Start Date End Date Benny Waite DO [address] [place] [address] PCP - General Internal Medicine 04/03/21 documented as of this encounter
--- OUTSIDE RECORDS SUMMARY | 2023-07-13 02:53 | External Medical Summary | Summary of Care ---
Author Name Unknown Organization [facility] Address [address] [facility] [place] [address] Phone [phone] Care Team Providers Care Employment Adjudicator Name Role Phone Benny Waite DO Primary Care Provider [phone] Reason for Referral * Evaluate & Treat - Unlimited Visits (Within 10 days (routine)) - Authorized Specialty Diagnoses / Procedures Referred By Elaina t Referred To Contact CARDIAC REHAB / Cardiology Diagnoses Hx of mitral valve replacement David Davidson DO [address] [place] [address] Referral ID Status Reason Start Date Expiration Date Visits Requested Visits Authorized [id number] Authorized Specialty Services Required 07/08/2023 999 999 Question Answer Referral Priority Within 10 days (routine) Where should this appointment be scheduled? [facility] Cardiac Rehabilitation Modality Virtual Based Cardiac Rehab Only Encounter Details Date Type Department Care Team (Late st Contact Info) Description 07/08/2023 Orders Only Cardiac Rehab Advanced, Virtual [address] [place] [address] David Davidson DO [address] [facility] [place] [address] Hx of mitral valve replacement* Allergies Active Allergy Reactions Criticality Noted Date [...] Oral Tablet Extended Release 24 Hour (toPROL XL)Indications:Advanced Practice Provider gunjan atrial fibrillation (HCC),CHF (congestive heart failure), NYHA class I, chronic, diastolic (HCC) TAKE ONE-HALF TABLET BY MOUTH IN THE MORNING 45 Tablet 3 02/22/2023 02/22/2024 Active Neomycin-Polymyxin- HC 3.5-17395-3 Otic SolutionIndications :Other infective acute otitis externa [...] Date Diagnosed Date Sacroiliitis, not elsewhere classified S/P MVR (mitral valve repair) 11/16/2022 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) 11/16/2022 Atherosclerosis of [place] co 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 pectoris 08/11/2022 Severe tricuspid regurgitation 08/11/2022 Gout, arthropathy 07/20/2022 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 02/05/2022 Permanent atrial fibrillation 12/22/2021 Overview: Added automatically from request for surgery [id number] Current 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 07/09/2021 Moderate to severe mitral regurgitation 04/03/20 21 Lumbar degenerative disc disease 04/03/2021 DEX (obstructive [...] MCG/0.3 mL, 12 YRS AND ABOVE, IM (PFIZER-ComirnatTripsidea) 04/16/2023 Covid-19, Mrna, Lnp-s, Pf, B ivalent, [...] (15 years old or older) No 11/17/19 23 Cognitive Status Response Date of Assessm ent Because of a physical, menta l, or emotional condition, do you have serious difficulty concentrating, remembering, or making decisions? (5 years old or older) No 11/16/2022 documented as of this encounter Progress Notes * Opal Caro, JACKIE - 07/08/2023 12:35 PM EST Meri, REQUEST: Please sign the PENDED ORDER for Virtual Cardiac Rehab Eligible ICD-10 DX: Z95.2 DX Name: MVR Date of Event: 11/2022 Details: Your patient has been identified as someone who would benefit from cardiac rehab. They have expressed interest in participating in [facility] new virtual cardiac rehab offering, delivered by [employer] ([email or web address]). Based on a chart review, they are eligible for cardiac rehab per CMS guidelines. Virtual Cardiac Rehab is supervised by [facility] clinicians and includes all the raquel of our in-person rehab programs, such as exercise training and heart healthy education. During the 12-week program, patients meet with an field clerk over video to work on their recovery 2-3 times perweek to help support them and strengthen their heart. All notes from their sessions will be accessible in [employer]. If you have any questions, please reply to this message, call [phone], or e-mail at [email or web address], documented in this encounter Plan of Treatment Upcoming Encounters Date Type Department Care Team (Late st Contact Info) Description 08/25/2023 9:40 AM EDT Office Visit Family Practice [address] [address] Benny Waite, [address] [place] [address] 12/21/2023 11:00 AM EDT Nurse Only Ancillary [address] [address] College, Nurse Annual Wellness Visit [address] [address] 01/05/2024 7:15 AM EDT Cardiac Studies Cardiac Studies, [facility] 132 [facility] [place] [address] 01/05/2024 8:30 AM EDT Office Visit Cardiology, [facility] 132 [facility] [place] [address] Franco Mcgregor MD [address] [place] [address] Scheduled Referrals Name Type Priority Associated Diagnoses Orde r Schedule CARDIAC REHAB REFERRAL OP Referral Within 10 days (routine) Hx of mitral valve replacement Ordered: 07/08/2023 Health Maintenance Due Date Last Done Comments [...] this encounter Medical Devices Implanted Type Area Insurance Account Assistant Device Identifier Shelf Expiration Date Model / Serial / Lot Device Watchman Flx 35mm - [id number] Implanted:Qty: 1 on 02/05/2022 by Diamond Teran IV, MD at [facility] [employer] : INTRV CARD [id number] 10/20/2024 [id number] 50 / / [id number] Cath Thermodilution 6fr - [id number] Implanted:Qty: 1 on 07/31/2022 by Franco Mcgregor MD at [facility] [employer] [id number] 04/30/2024 [id number] / / [id number] Clip Delivery Sytem G4 Xtw - [id number] Implanted:Qty: 1 on 11/16/2022 at [facility] [employer] [id number] 09/10/2023 [id number] / / [id number] documented as of this encounter Visit Diagnoses Diagnosis Hx of mitral valve replacement- Primary Heart valve replaced by other means documented in this encounter Advance Directives Latest [...] and were consensually agreed upon. Care Teams Employment Adjudicator Relationship Specialty Start Date End Date Benny Waite DO [address] [place] [address] PCP - General Internal Medicine 04/03/21 documented as of this encounter
--- OUTSIDE RECORDS SUMMARY | 2023-07-13 02:53 | External Medical Summary | Summary of Care ---
Author Name Unknown Organization [facility] Address [address] [facility] [place] [address] Phone [phone] Care Team Providers Care Canal Boat Captain Name Role Phone Benny Waite DO Primary Care Provider [phone] Reason for Visit * Reason Onset Date Comments Referral 07/08/2023 [facility] Pain Encounter Details Date Type Department Care Team (Late st Contact Info) Description 07/08/2023 Telephone Pharmacy Call Center WB [address] [place] [address] Pharmacist2, [facility] [address] [facility] ([facility] Pain) Allergies Active Allergy Reactions Criticality Noted [...] Oral Tablet Extended Release 24 Hour (toPROL XL)Indications:Cubing Machine Tender gunjan atrial fibrillation (HCC),CHF (congestive heart failure), NYHA class I, chronic, diastolic (HCC) TAKE ONE-HALF TABLET BY MOUTH IN THE MORNING 45 Tablet 3 02/22/2023 02/22/2024 Active Neomycin-Polymyxin- HC 3.5-00395-4 Otic SolutionIndications :Other infective acute otitis externa [...] CHF (congestive heart failure) 11/16/2022 Atherosclerosis of [place] co 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 pectoris 08/11/2022 Severe tricuspid regurgitation 08/11/2022 Gout, arthropathy 07/20/2022 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 02/05/2022 Permanent atrial fibrillation 12/22/2021 Overview: Added automatically from request for surgery [id number] Current moderate episode of major depressive disorder [...] mRNA, LNP-s, No Pre serve, 2-Dose Series ([employer]) 05/14/2021 COVID-19, LNP-s, No Preserve , Robbie-sucrose, Ages 12+ (Pfizer) 11/04/2021 COVID-19, MRNA-LNP, 23-24, P F, 30 MCG/0.3 mL, 12 YRS AND ABOVE, IM ([employer]-Comirnat) 04/16/2023 Covid-19, Mrna, Lnp-s, Pf, B ivalent, [...] encounter Miscellaneous Notes * Telephone Encounter - Ki Swift RPh - 07/08/2023 3:36 PM EST [facility] is unable to accept a referral for patients on opioids without a UDS completed in the last 3 months. Will forward to pcp, please inform [facility] when UDS has been completed. Referral received and reviewed. Reason for referral: Pain Need clarification from referring provider before scheduling. Ki Swift RPh 07/08/2023, 3:37 PM * Telephone Encounter - Velma De La Garza, seafood farmer - 07/08/2023 2:52 PM EST Comments Pharmacist Medication Therapy Management: Minimum frequency patient should be seen in person for medication management: as appropriate per clinical condition and patient status By my signature, I understand that my patient Nikolas Silvestre will have his medication therapy managed by the [facility] ([facility]) per established policies, procedures, and protocols. I also certify that this referral may serve as an initiation of service forthe management of drug therapy in the above noted patient. [facility] providers will be responsible for scheduling patient visits, obtaining appropriate laboratory studies, and adjusting medication management therapy per patient's need, in addition to those roles spelled out in the clinic policy, procedures, and drug management protocols. I understand that the service provided by the [facility] is voluntary and have informed patient that they can refuse the service at their discretion. I am aware that the [facility] Clinic will provide me with a copy of the patient encounter via my [employer]. I authorize the [facility] to carry out these activities on my behalf. I consider this program to be a necessary part of the patient's medical care. Marnie Baker LPN Order Specific Questions Referral Priority Within 30 days (routine) Where should this appointment be scheduled? Pat Referring Provider Role: Primary Care Reason for [...] AM EDT Office Visit Family Practice 65 [facility] 293 [place] [address] Benny Waite, 293 [place] [address] 12/21/2023 11:00 AM EDT Nurse Only Ancillary 65 [facility] 293 [place] [address] College, Nurse Annual Wellness Visit [address] [place] [address] 01/05/2024 7:15 AM EDT Cardiac Studies Cardiac Studies, [facility] [place] [address] 01/05/2024 8:30 AM EDT Office Visit Cardiology, [facility] 132 [facility] [place] [address] Franco Mcgregor MD [address] [facility] [address] Health Maintenance Due Date Last Done [...] this encounter Medical Devices Implanted Type Area Cook Frozen Dessert Device Identifier Shelf Expiration Date Model / Serial / Lot Device Watchman Flx 35mm - [id number] Implanted:Qty: 1 on 02/05/2022 by Diamond Teran IV, MD at [facility] [employer] : INTRV CARD [id number] 10/20/2024 [id number] 50 / / [id number] Cath Thermodilution 6fr - [id number] Implanted:Qty: 1 on 07/31/2022 by Franco Mcgregor MD at [facility] [employer] [id number] 04/30/2024 [id number] / / [id number] Clip Delivery Sytem G4 Xtw - [id number] Implanted:Qty: 1 on 11/16/2022 at [facility] [employer] [id number] 09/10/2023 [id number] / / [id number] documented as of this encounter Advance [...] and were consensually agreed upon. Care Teams Canal Boat Captain Relationship Specialty Start Date End Date Benny Waite DO [address] [facility] [place] [address] PCP - General Internal Medicine 04/03/21 documented as of this encounter
--- OUTSIDE RECORDS SUMMARY | 2023-07-13 02:54 | External Medical Summary | Summary of Care ---
Author Name Unknown Organization [facility] Address [address] [facility] [place] [address] Phone [phone] Care Team Providers Care Bridge Crew Member Name Role Phone YifansaurabhBenny DO Primary Care Provider [phone] Reason for Visit * Reason Onset Date Comments Test Results 07/06/2023 Unexpected or In determinate Result Encounter Details Date Type Department Care Team (Late st Contact Info) Description 07/06/2023 Telephone Cardiology Yehuda Rodríguez [address] [place] [address] Aleksandra Aggarwal PA-C [address] [place] [address] Test Results (Unexpected or Indeterminate ... Allergies Active Allergy Reactions Criticality Noted Date Comments Adhesive Tape 02/04/2017 Levofloxacin 09/01/2019 documented as of this encounter (statuses as of 07/07/2023) Medications Medication Sig Dispensed Refills Start Date [...] 1 Capsule in the evening. 0 Active traMADol HCl 50 MG Oral Tablet (Ultram)Indications :Lumbar degenerative disc disease Take 1 Tablet by mouth every 6 hours as needed for Pain, Severe. 30 Tablet 0 11/10/2022 Active Metoprolol Succinate ER 25 MG Oral Tablet Extended Release 24 Hour (toPROL XL)Indications:Junior Mechanical Engineer gunjan atrial fibrillation (HCC),CHF (congestive heart failure), NYHA class I, chronic, diastolic (HCC) TAKE ONE-HALF TABLET BY MOUTH IN THE MORNING 45 Tablet 3 02/22/2023 02/22/2024 Active Neomycin-Polymyxin- HC 3.5-73598-5 Otic SolutionIndications :Other infective acute otitis externa [...] before bedtime. 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) 11/16/2022 Atherosclerosis of [place] co 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 pectoris 08/11/2022 Severe tricuspid regurgitation 08/11/2022 Gout, arthropathy 07/20/2022 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 02/05/2022 Permanent atrial fibrillation 12/22/2021 Overview: Added automatically from request for surgery [id number] Current moderate episode of major depressive disorder [...] as of this encounter (statuses as of 07/07/2023) Resolved Problems Problem Noted Date Diagnosed Date Resolved Date Severe obesity with body mas s index (BMI) of 35.0 to 39.9 with serious comorbidity 04/24/2022 Aortic root enlargement 10/01/202001/12 Enlarged aorta 05/02/2019 08/19/2020 Senile purpura 05/02/2019 08/19/2020 Mixed connective tissue disease 05/07/2018 08/19/2020 Chronic atrial fibrillation 01/18/2018 12/11/2022 documented as of this encounter (statuses as of 07/07/2023) Immunizations Name Administration Dates Next Due COVID-19 mRNA, LNP-s, No Pre serve, 2-Dose Series (Moderna) 08/20/2020,07/17/2020 COVID-19 mRNA, LNP-s, No Pre serve, 2-Dose Series (Tapad) 05/14/2021 COVID-19, LNP-s, No Preserve , Robbie-sucrose, Ages 12+ (Pfizer) 11/04/2021 COVID-19, MRNA-LNP, 23-24, P F, 30 MCG/0.3 mL, 12 YRS AND ABOVE, IM [facility] 04/16/2023 Covid-19, Mrna, Lnp-s, Pf, B ivalent, 30 Mcg, IM, 12 yrs and above (Tapad) 03/17/2022 Pneumococcal Conjugate Vacc, 13 Valent (Prevnar) [...] Encounter - Benny Waite DO - 07/07/2023 11:26 AM EST Agree with respiratory pathogen panel and CT chest. No additional recommendations at this time. * Telephone Encounter - Preston Mchugh OSA - 07/06/2023 8:39 AM EST Called patient he is all set up for today at [address] patient is aware and will be here, * Addendum Note - Aleksandra Aggarwal PA-C - 07/06/2023 8:33 AM ESTAddended by: ALEKSANDRA AGGARWAL on: 07/06/2023 08:33 AM Modules accepted: Orders * Telephone Encounter - Aleksandra Aggarwal PA-C - 07/06/2023 8:19 AM EST Reviewed lab results and chest x-ray with patient over phone. Does not appear respiratory panel wascollected. Patient states he is very short of breath and "something is radically wrong". Per chest x-ray report, radiologist recommends chest CT, will order stat. FYI to PCP, any further recommendations? For scheduling, please assist in scheduling CT. * Telephone Encounter - Aleksandra Aggarwal PA-C - 07/06/2023 7:38 AM EST Noted, chest x-ray reviewed. Will call patient today to discuss results. * Telephone Encounter - Vijaya Buckley OSA - 07/06/2023 4:42 AM EST Hello- The radiologist discovered an unexpected or indeterminate finding on Nikolas Silvestre ([id number]) and asks that you review the following report. Study Type:XR CHEST 2 VIEWS Date of Study: IMPRESSION IMPRESSION Increasing superior mediastinal density, with underlying mass or adenopathy not excluded. RecommendCT thorax for further evaluation. Please respond to this encounter to acknowledge receipt of this message and take responsibility to ensure this report is reviewed. Thank you, DEX Murillo Client Service [facility] documented in this encounter Plan of Treatment Upcoming Encounters Date Type Department Care Team (Late st Contact Info) Description 08/25/2023 9:40 AM EDT Office Visit Family Practice 65 [facility] 293 [place] [address] Benny Waite, 293 [place] [address] 12/21/2023 11:00 AM EDT Nurse Only Ancillary 65 [facility] 293 [place] [address] College, Nurse Annual Wellness Visit [address] [facility] 293 [place] [address] 01/05/2024 7:15 AM EDT Cardiac Studies [facility], [facility] [address] 01/05/2024 8:30 AM EDT Office Visit Cardiology, [facility] 132 [place] [place] [address] Franco Mcgregor MD [address] [place] [address] Health Maintenance Due Date Last Done Comments [...] this encounter Medical Devices Implanted Type Area Wheel Grinder Device Identifier Shelf Expiration Date Model / Serial / Lot Device Watchman Flx 35mm - [id number] Implanted:Qty: 1 on 02/05/2022 by Diamond Teran IV, MD at [facility] [employer] : INTRV CARD [id number] 10/20/2024 [id number] 50 / / [id number] Cath Thermodilution 6fr - [id number] Implanted:Qty: 1 on 07/31/2022 by Franco Mcgregor MD at [facility] [employer] [id number] 04/30/2024 [id number] / / [id number] Clip Delivery Sytem G4 Xtw - [id number] Implanted:Qty: 1 on 11/16/2022 at [facility] [employer] [id number] 09/10/2023 [id number] / / [id number] documented as of this encounter Visit Diagnoses Diagnosis CHESTER (dyspnea on exertion)- Primary Other dyspnea and respiratory abnormality Abnormal finding on chest xray Other nonspecific abnormal finding of lung field documented in this encounter Advance Directives Latest [...] and were consensually agreed upon. Care Teams Bridge Crew Member Relationship Specialty Start Date End Date Benny Waite DO 293 [place] [address] PCP - General Internal Medicine 04/03/21 documented as of this encounter
--- OUTSIDE RECORDS SUMMARY | 2023-07-13 02:54 | External Medical Summary | Summary of Care ---
Author Name Unknown Organization [facility] Address [address] [facility] [place] [address] Phone [phone] Care Team Providers Care Busher Helper Name Role Phone Benny Waite DO Primary Care Provider Reason for Referral * Precert (Within 24 hrs (call dept; emergent)) - Pending Review Specialty Diagnoses / Procedures Referred By Elaina hernandez Referred To Contact Radiology Diagnoses CHESTER (dyspnea on exertion) Abnormal finding on chest xray Procedures CT CHEST W WO CONTRAST Aleksandra Aggarwal PA-C 400 [place] [address] Referral ID Status Reason Start Date Expiration Date V isits Requested Visits Authorized [id number] Pending Review 07/06/2023 999 999 Reason for Visit * Reason Onset Date Comments Test Results 07/06/2023 Unexpected or In determinate Result Encounter Details Date Type Department Care Team (Late st Contact Info) Description 07/06/2023 Telephone Cardiology Yehuda Rodríguez [address] [place] [address] Aleksandra Aggarwal PA-C [address] [place] [address] Test Results (Unexpected or Indeterminate ... Allergies Active Allergy Reactions Criticality Noted Date Comments Adhesive Tape 02/04/2017 Levofloxacin 09/01/2019 documented as of this encounter (statuses as of 07/06/2023) Medications Medication Sig Dispensed Refills Start Date [...] Oral Tablet Extended Release 24 Hour (toPROL XL)Indications:Salt Washer Harvesting Station gunjan atrial fibrillation (HCC),CHF (congestive heart failure), NYHA class I, chronic, diastolic (HCC) TAKE ONE-HALF TABLET BY MOUTH IN THE MORNING 45 Tablet 3 02/22/2023 02/22/2024 Active Neomycin-Polymyxin- HC 3.5-50390-2 Otic SolutionIndications :Other infective acute otitis externa [...] as of this encounter (statuses as of 07/06/2023) Active Problems Problem Noted Date Diagnosed Date Sacroiliitis, not elsewhere classified S/P MVR (mitral valve repair) 11/16/2022 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) 11/16/2022 Atherosclerosis of [place] co 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 pectoris 08/11/2022 Severe tricuspid regurgitation 08/11/2022 Gout, arthropathy 07/20/2022 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 02/05/2022 Permanent atrial fibrillation 12/22/2021 Overview: Added automatically from request for surgery [id number] Current moderate episode of major depressive disorder [...] as of this encounter (statuses as of 07/06/2023) Resolved Problems Problem Noted Date Diagnosed Date Resolved Date Severe obesity with body mas s index (BMI) of 35.0 to 39.9 with serious comorbidity 04/24/2022 Aortic root enlargement 10/01/202001/12 Enlarged aorta 05/02/2019 08/19/2020 Senile purpura 05/02/2019 08/19/2020 Mixed connective tissue disease 05/07/2018 08/19/2020 Chronic atrial fibrillation 01/18/2018 12/11/2022 documented as of this encounter (statuses as of 07/06/2023) Immunizations Name Administration Dates Next Due COVID-19 mRNA, LNP-s, No Pre serve, 2-Dose Series (Moderna) 08/20/2020,07/17/2020 COVID-19 mRNA, LNP-s, No Pre serve, 2-Dose Series (Pfizer) 05/14/2021 COVID-19, LNP-s, No Preserve , Robbie-sucrose, Ages 12+ (Pfizer) 11/04/2021 COVID-19, MRNA-LNP, 23-24, P F, 30 MCG/0.3 mL, 12 YRS AND ABOVE, IM (P[employer]ER-Comirnat) 04/16/2023 Covid-19, Mrna, Lnp-s, Pf, B ivalent, [...] encounter Miscellaneous Notes * Telephone Encounter - Preston Mchugh OSA [...] unexpected or indeterminate finding on Nikolas Silvestre ([id number]) and asks that you review the following report. Study Type:XR CHEST 2 VIEWS Date of Study: IMPRESSION IMPRESSION Increasing superior mediastinal density, with underlying mass or adenopathy not excluded. RecommendCT thorax for further evaluation. Please respond to this encounter to acknowledge receipt of this message and take responsibility to ensure this report is reviewed. Thank you, DEX Murillo Client Service [facility] [place] documented in this encounter Plan of Treatment Upcoming Encounters Date Type Department Care Team (Late st Contact Info) Description 07/06/2023 4:15 PM EST Imaging Radiology [address], [address] [place] [address] 07/07/2023 9:30 AM EST Telemedicine [facility], [facility] 132 [facility] [place] [address] Luann Mcgrath PA-C 132 [facility] [place] [address] 08/25/2023 9:40 AM EDT Office Visit Family Practice 65 [facility] 293 [place] [address] Benny Waite, 293 [place] [address] 12/21/2023 11:00 AM EDT Nurse Only Ancillary 65 [facility] 293 [place] [address] College, Nurse Annual Wellness Visit [address] [place] [address] 01/05/2024 7:15 AM EDT Cardiac Studies Cardiac Studies, [facility] 132 [place] [address] 01/05/2024 8:30 AM EDT Office Visit Cardiology, [facility] 132 [place] [address] Franco Mcgregor MD [address] [place] [address] Scheduled Orders Name Type Priority Associated Diagnoses Orde r Schedule CT CHEST W WO CONTRAST Medical Imaging STAT CHESTER (dyspnea on exertion) Abnormal finding on chest xray Expected: 07/06/2023, Expires: 08/06/2024 Health Maintenance Due Date Last Done Comments [...] this encounter Medical Devices Implanted Type Area Senior Chemical Process Engineer Device Identifier Shelf Expiration Date Model / Serial / Lot Device Watchman Flx 35mm - [id number] Implanted:Qty: 1 on 02/05/2022 by Diamond Teran IV, [place] [facility] [employer] : INTRV CARD [id number] 10/20/2024 [id number] 50 / / [id number] Cath Thermodilution 6fr - [id number] Implanted:Qty: 1 on 07/31/2022 by Franco Mcgregor MD at [facility] [employer] [id number] 04/30/2024 [id number] / / [id number] Clip Delivery Sytem G4 Xtw - [id number] Implanted:Qty: 1 on 11/16/2022 at [facility] [employer] [id number] 09/10/2023 [id number] / / [id number] documented as of this encounter Visit [...] and were consensually agreed upon. Care Teams Busher Helper Relationship Specialty Start Date End Date Benny Waite DO [address] [place] [address] PCP - General Internal Medicine 04/03/21 documented as of this encounter
--- OUTSIDE RECORDS SUMMARY | 2023-07-13 02:54 | External Medical Summary | Summary of Care ---
Author Name Unknown Organization [facility] Address [address] [facility] [address] Phone [phone] Care Team Providers Care Day Spa Manager Name Role Phone Benny Waite DO Primary Care Provider [phone] Reason for Visit * Reason Onset Date Comments Call Back 07/07/2023 Encounter Details Date Type Department Care Team (Late st Contact Info) Description 07/07/2023 Telephone Family Practice 65 [facility] 293 [place] [id number] Benny Waite 293 [place], [place] [id number] Call Back Allergies Active Allergy Reactions Criticality Noted Date [...] Oral Tablet Extended Release 24 Hour (toPROL XL)Indications:Margarine Maker gunjan atrial fibrillation (HCC),CHF (congestive heart failure), NYHA class I, chronic, diastolic (HCC) TAKE ONE-HALF TABLET BY MOUTH IN THE MORNING 45 Tablet 3 02/22/2023 02/22/2024 Active Neomycin-Polymyxin- HC 3.5-06867-6 Otic SolutionIndications :Other infective acute otitis externa [...] CHF (congestive heart failure) 11/16/2022 Atherosclerosis of [place] co 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 pectoris 08/11/2022 Severe tricuspid regurgitation 08/11/2022 Gout, arthropathy 07/20/2022 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 02/05/2022 Permanent atrial fibrillation 12/22/2021 Overview: Added automatically from request for surgery [id number] Current moderate episode of major depressive disorder [...] encounter Miscellaneous Notes * Telephone Encounter - Stephanie Salvador OSA - 07/07/2023 10:52 AM EST Patient was frustrated because he didn't get covid tested when he was at clinic for symptoms. He called back and refused to run 60 miles round trip for a covid trip. He advised that there is no reason for him to come in, then disconnected line. * Telephone Encounter - Chery Murrieta PHARM Tech - 07/07/2023 10:46 AM EST Pt called stating he was suppose to get covid test done at lab yesterday. Pt wants to know hwy it wasn't done. Transferred pt to labs. Thanks, Chery Murrieta Licensed Embalmer [facility] 07/07/2023,10:48 AM documented in this encounter Plan of Treatment Upcoming Encounters Date Type Department Care Team (Late st Contact Info) Description 08/25/2023 9:40 AM EDT Office Visit Family Practice [address] [facility], [address] [place] [address] Benny Waite, 293 [place] [address] 12/21/2023 11:00 AM EDT Nurse Only Ancillary 65 [facility] 293 [place] [address] College, Nurse Annual Wellness Visit [address] [address] 01/05/2024 7:15 AM EDT Cardiac Studies Cardiac Studies, [facility] 132 [place] [address] 01/05/2024 8:30 AM EDT Office Visit Cardiology, [facility] 132 [place] [address] Franco Mcgregor MD [address] [place] [address] Health Maintenance Due Date Last [...] this encounter Medical Devices Implanted Type Area Briar Wood Sorter Device Identifier Shelf Expiration Date Model / Serial / Lot Device Watchman Flx 35mm - [id number] Implanted:Qty: 1 on 02/05/2022 by Diamond Teran IV, MD at [facility] [employer] : INTRV CARD [id number] 10/20/2024 [id number] 50 / / [id number] Cath Thermodilution 6fr - [id number] Implanted:Qty: 1 on 07/31/2022 by Franco Mcgregor MD at [facility] [employer] [id number] 04/30/2024 [id number] / / [id number] Clip Delivery Sytem G4 Xtw - [id number] Implanted:Qty: 1 on 11/16/2022 at [facility] [employer] [id number] 09/10/2023 [id number] / / [id number] documented as of this encounter Advance [...] and were consensually agreed upon. Care Teams Day Spa Manager Relationship Specialty Start Date End Date Benny Waite DO [address] [place] [address] PCP - General Internal Medicine 04/03/21 documented as of this encounter
--- OUTSIDE RECORDS SUMMARY | 2023-07-13 02:54 | External Medical Summary | Summary of Care ---
Author Name Unknown Organization [facility] Address [address] [facility] [address] Phone [phone] Care Team Providers Care Solvent Mixer Name Role Phone Benny Waite DO Primary Care Provider [phone] Reason for Visit * Reason Onset Date Comments Call Back 07/07/2023 Encounter Details Date Type Department Care Team (Late st Contact Info) Description 07/07/2023 Telephone Family Practice 65 [facility] [address] [place] [id number] Benny Waite [address] [place], [place] [id number] Call Back Allergies Active Allergy Reactions Criticality [...] Oral Tablet Extended Release 24 Hour (toPROL XL)Indications:Investor gunjan atrial fibrillation (HCC),CHF (congestive heart failure), NYHA class I, chronic, diastolic (HCC) TAKE ONE-HALF TABLET BY MOUTH IN THE MORNING 45 Tablet 3 02/22/2023 02/22/2024 Active Neomycin-Polymyxin- HC 3.5-59959-5 Otic SolutionIndications :Other infective acute otitis externa [...] CHF (congestive heart failure) 11/16/2022 Atherosclerosis of [place] co 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 pectoris 08/11/2022 Severe tricuspid regurgitation 08/11/2022 Gout, arthropathy 07/20/2022 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 02/05/2022 Permanent atrial fibrillation 12/22/2021 Overview: Added automatically from request for surgery [id number] Current moderate episode of major depressive disorder [...] Transferred pt to labs. Thanks, Chery Murrieta O And M Supervisor [facility] ([facility]) 07/07/2023,10:48 AM documented in this encounter Plan of Treatment Upcoming Encounters Date Type Department Care Team (Late st Contact Info) Description 08/25/2023 9:40 AM EDT Office Visit Family Practice 65 [facility], [address] [place] [address] Benny Waite, [address] [place] [address] 12/21/2023 11:00 AM EDT Nurse Only Ancillary 65 [facility] [place] [address] [place] [address] College, Nurse Annual Wellness Visit [address] [address] 01/05/2024 7:15 AM EDT Cardiac Studies Cardiac Studies, [facility] [address] [place] [address] 01/05/2024 8:30 AM EDT Office Visit Cardiology, [facility] [address] [place] [address] Franco Mcgregor MD [address] [place] [address] Health Maintenance Due Date Last [...] this encounter Medical Devices Implanted Type Area Wood Mechanist Device Identifier Shelf Expiration Date Model / Serial / Lot Device Watchman Flx 35mm - [id number] Implanted:Qty: 1 on 02/05/2022 by Diamond Teran IV, MD at [facility] [employer] : INTRV CARD [id number] 10/20/2024 [id number] / / [id number] Cath Thermodilution 6fr - [id number] Implanted:Qty: 1 on 07/31/2022 by Franco Mcgregor MD at [facility] [employer] [id number] 04/30/2024 [id number] / / [id number] Clip Delivery Sytem G4 Xtw - [id number] Implanted:Qty: 1 on 11/16/2022 at [facility] [employer] [id number] 09/10/2023 [id number] / / [id number] documented as of this encounter Advance [...] and were consensually agreed upon. Care Teams Solvent Mixer Relationship Specialty Start Date End Date Benny Waite DO 293 [facility] [place] [address] PCP - General Internal Medicine 04/03/21 documented as of this encounter
--- OUTSIDE RECORDS SUMMARY | 2023-07-13 02:54 | External Medical Summary | Summary of Care ---
Author Name Unknown Organization [facility] Address [address] [facility] [place] [address] Phone [phone] Care Team Providers Care Telephone Information Clerk Name Role Phone Benny Waite DO Primary Care Provider [phone] Reason for Visit * Reason Comments Follow Up Encounter Details Date Type Department Care Team (Late st Contact Info) Description 07/07/2023 9:30 AM [facility] Telemedicine Interventional Pain Center, [facility] [address] [place] [phone] Luann Mcgrath PA-C [address] [place] [address] Sacroiliitis (HCC)*; Chronic right-sided low back pain with right-sided sciatica Allergies Active Allergy Reactions Criticality Noted Date [...] Oral Tablet Extended Release 24 Hour (toPROL XL)Indications: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 Coater Operator gunjan atrial fibrillation (HCC),CHF (congestive heart failure), NYHA class I, chronic, diastolic (HCC) TAKE ONE-HALF TABLET BY MOUTH IN THE MORNING 45 Tablet 3 02/22/2023 02/22/2024 Active Neomycin-Polymyxin- HC 3.5-29108-1 Otic SolutionIndications :Other infective acute otitis externa [...] CHF (congestive heart failure) 11/16/2022 Atherosclerosis of [place] co 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 pectoris 08/11/2022 Severe tricuspid regurgitation 08/11/2022 Gout, arthropathy 07/20/2022 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 02/05/2022 Permanent atrial fibrillation 12/22/2021 Overview: Added automatically from request for surgery [id number] Current moderate episode of major depressive disorder [...] mRNA, LNP-s, No Pre serve, 2-Dose Series (DEQ) 05/14/2021 COVID-19, LNP-s, No Preserve , Robbie-sucrose, Ages 12+ (Pfizer) 11/04/2021 COVID-19, MRNA-LNP, 23-24, P F, 30 MCG/0.3 mL, 12 YRS AND ABOVE, IM ([employer]) 04/16/2023 Covid-19, Mrna, Lnp-s, Pf, B ivalent, 30 Mcg, IM, 12 yrs and above (DEQ) 03/17/2022 Pneumococcal Conjugate Vacc, 13 Valent (Prevnar) [...] as of this encounter Progress Notes * Luann Mcgrath PA-C - 07/07/2023 9:45 AM EST Name: Nikolas Silvestre Date: 07/07/2023 After connecting to the patient via telephone, the patient was identified by name and date of . Patient was then informed that this was a telephone call only visit. The patient agreed to participate. Visit Disposition: Routine follow-up Total call duration nine minutes. HPI: Nikolas Silvestre is a 82 year old male known to the Pain Management clinic presents for follow up after right SI joint injection on 05/26/23. Admits mild pain reduction lasting less than three weeks. Pain has returned to baseline without injury. Notes he is "done being a guinea pig." Frustrated with bills that have resulted from procedures that have not provided alf relief. Locates pain R low back buttock and lateral hip pain. Baseline weakness B LE. Denies progressive LEparaesthesia. Denies bowel/bladder dysfunction. Using gabapentin, tylenol for pain relief. Xrays of procedure were reviewed. History of injections: L SI joint: 02/10/23 B SI joint: 11/11/22 Caudal ABNER: 06/23/21 Cervical TPI: 06/23/22, 07/30/21 History: Past Medical History: Diagnosis Date Aortic root enlargement (HCC) 10/01/2020 BPH with obstruction/lower urinary tract symptoms CHF (congestive heart failure), NYHA class I, chronic, diastolic (HCC) 05/02/2019 Chronic atrial fibrillation (HCC) 01/18/2018 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) 07/09/2021 DDD (degenerative disc disease), lumbar Depression Gout, arthropathy 07/20/2022 Nonrheumatic mitral valve regurgitation 04/03/2021 Renal calculus Severe obesity with body mass index (BMI) of 35.0 to 39.9 with serious comorbidity (HCC) 04/24/2022 Sleep apnea, obstructive Past Surgical History: Procedure Laterality Date CATARACT SURGERY,COMPLEX COLONOSCOPY, DIAGNOSTIC (RECTUM) 02/13/2021 diverticulosis, fair prep / [facility] COLORECTAL CANCER SCREEN; NOT AT RISK 04/04/2008 Diverticulosis CORONARY ANGIOGRAPHY W/RIGHT+LEFT CATH Bilateral 07/31/2022 CORONARY ANGIOGRAPHY W/RIGHT+LEFT CATH performed by Franco Mcgregor MD at [facility] CYSTOSCOPY 10/22/2011 CYSTOURETHROSCOPY performed by LIBERTAD FITZPATRICK at [facility] CYSTOSCOPY 09/13/2012 CYSTOURETHROSCOPY performed by Eliseo Menard MD at OR [facility] INJECT DX/THER SUBSTANCE INTERLAMINAR LUMBAR/SACRAL W IMAGE GUIDE 06/23/2021 INJECTION SPINE LUMBAR OR SACRAL performed by Anderson Easton DO at OR [facility] OTHER 02/13/1980 Dr. Vicente KOWALSKI surgery OTHER left hand reconstruction PERC CLOSURE TRANSCATH LEFT ATRIAL APPENDAGE W/ENDOCARDIAL IMPLANT N/A 02/05/2022 PERCUTANEOUS CLOSURE LEFT ATRIAL APPENDAGE IMPLANT performed by Diamond Teran IV, MD at [facility] PSA 06/14/2004 3.42 PSA 06/14/2005 3.72 PSA 02/13/2008 5.17 REMOVAL OF PROSTATE (TURP) 10/22/2011 TRANSURETHRAL RESECTION PROSTATE ELECTROSURGICAL performed by LIBERTAD FITZPATRICK at OR [facility] REMOVAL OF PROSTATE (TURP) 09/13/2012 TRANSURETHRAL RESECTION PROSTATE ELECTROSURGICAL performed by Eliseo Menard MD at OR [facility] REMOVE CATARACT, INSERT LENS PROSTH OU REMOVE TONSILS & ADENOIDS, UNDER 12 SACROILIAC JOINT INJECT W/GUIDANCE 11/11/2022 INJECTION SACROILIAC JOINT performed by Anderson Easton DO at OR [facility] SACROILIAC JOINT INJECT W/GUIDANCE 02/10/2023 INJECTION SACROILIAC JOINT performed by Anderson Easton DO at OR [facility] SACROILIAC JOINT INJECT W/GUIDANCE 05/26/2023 INJECTION SACROILIAC JOINT performed by Anderson Easton DO at OR [facility] TRANSCATH REPAIR MITRAL VALVE, INITIAL Bilateral 11/16/2022 TRANSCATHETER MITRAL VALVE REPAIR performed by Franco Mcgregor MD at [facility] VITRECTOMY W/ REMOVE OF EPIRETINAL MEMBRANE 11/12/2008 Right eye Current Outpatient Medications Medication Sig Dispense Refill Acetaminophen 500 MG Oral Tablet TAKE 1 IN THE MORNING AND 2 IN THE EVENING Aspirin 81 MG Oral Tablet Chewable Take by mouth 1 Tablet in the morning. Do not start before February 06, 2022. Docusate Sodium 100 MG Oral Capsule Take 1 Capsule by mouth at noon and 1 Capsule in the evening. traMADol HCl 50 MG Oral Tablet (Ultram) Take 1 Tablet by mouth every 6 hours as needed for Pain, Severe. 30 Tablet 0 Metoprolol Succinate ER 25 MG Oral Tablet Extended Release 24 Hour (toPROL XL) TAKE ONE-HALF TABLETBY MOUTH IN THE MORNING 45 Tablet 3 Iioogtso-Efbqvitcl-ND 3.5-76171-0 Otic Solution Administer 4 Drops into the left ear in the morningand 4 Drops at noon and 4 Drops before bedtime. To affected ear for 10 days 10 mL 0 Allopurinol 300 MG Oral Tablet (Zyloprim) Take 1 Tablet by mouth in the morning. 100 Tablet 3 Gabapentin 300 MG Oral Capsule (Neurontin) Take 2 tablets in AM and 1 tablet in PM Finasteride 5 MG Oral Tablet (Proscar) TAKE ONE TABLET BY MOUTH EVERY MORNING 100 Tablet 2 busPIRone HCl 5 MG Oral Tablet (Buspar) Take 1 Tablet by mouth in the morning and 1 Tablet before bedtime. 200 Tablet 3 busPIRone HCl 5 MG Oral Tablet (Buspar) Take 1 Tablet by mouth in the morning and 1 Tablet before bedtime. 20 Tablet 0 No current facility-administered medications for this visit. Review of patient's allergies indicates: Allergen Reactions Adhesive Tape Levaquin [Levofloxacin] ASSESSMENT: Chronic low back pain SI joint dysfunction Spinal stenosis? RECOMMENDATION: Persistent low back, R hip and upper leg pain. Mild improvement with most recent SI joint injection. Frustrated subsequent injections have provided less relief. Discussed possible L spine MRI, patient declines - again very frustrated with recent medical bills. Defer future injections at this jenn, can continue with medication management - question if cymbalta could be considered - is using burspar. If interested in MRI, can contact our clinic. Patient requested copy of note be sent to PCP. Total call duration nine minutes. Luann Mcgrath PA-C 07/07/2023 documented in this encounter Plan of Treatment Upcoming Encounters Date Type Department Care Team (Late st Contact Info) Description 08/25/2023 9:40 AM EDT Office Visit Family Practice 65 [facility] [address] [place] [address] Benny Waite DO [address] [place] [address] 12/21/2023 11:00 AM EDT Nurse Only Ancillary 65 [facility] [address] [place] [address] College, Nurse Annual Wellness Visit [address] [address] 01/05/2024 7:15 AM EDT Cardiac Studies Cardiac Studies, [facility] [address] [place] [address] 01/05/2024 8:30 AM EDT Office Visit Cardiology, [facility] [address] [place] [address] Franco Mcgregor MD [address] [place] [address] Health Maintenance Due Date Last Done Comments Hepatitis B (1 of 3 - Risk 3-dose series) 1998 Depression Screening 06/16/2024 06/16/2023 DTaP,Tdap,and Td Vaccines (2 - Td or Tdap) 04/20/2028 04/20/2018 Pneumococcal Vaccine: 65+ Years Completed 05/02/2019, 04/20/2018 Zoster Vaccines Completed 12/13/2019, 020 08/2019, 04/18/2015 Influenza Vaccine (FLU shot) Completed 01/2023, 03/12/2022, 03/13/2021, Additional history exists COVID-19 Vaccine Completed 04/16/2023, 09/2021, 11/04/2021, Additional history exists GARDASIL-HPV IMMUNIZATION SERIES Aged Out No longer eligible based on patient's age to complete this topic MENINGOCOCCAL (MENACTRA/MENVEO) Aged Out No longer eligible based on patient's age to complete this topic documented as of this encounter Medical Devices Implanted Type Area Documentation Lead Device Identifier Shelf Expiration Date Model / Serial / Lot Device Watchman Flx 35mm - [id number] Implanted:Qty: 1 on 02/05/2022 by Diamond Teran IV, MD at [facility] [employer] : INTRV CARD [id number] 10/20/2024 [id number] 50 / / [id number] Cath Thermodilution 6fr - [id number] Implanted:Qty: 1 on 07/31/2022 by Franco Mcgregor MD at [facility] [employer] [id number] 04/30/2024 [id number] / / [id number] Clip Delivery Sytem G4 Xtw - [id number] Implanted:Qty: 1 on 11/16/2022 at [facility] [employer] [id number] 09/10/2023 [id number] / / [id number] documented as of this encounter Visit Diagnoses Diagnosis Sacroiliitis (HCC)- Primary Sacroiliitis, not elsewhere classified Chronic right-sided low back pain with right-sided sciatica documented in this encounter Advance Directives Latest [...] and were consensually agreed upon. Care Teams Telephone Information Clerk Relationship Specialty Start Date End Date Benny Waite DO [address] [place] [address] PCP - General Internal Medicine 04/03/21 documented as of this encounter
--- OUTSIDE RECORDS SUMMARY | 2023-07-13 02:54 | External Medical Summary | Summary of Care ---
Author Name Unknown Organization [facility] Address [address] [facility] [place] [address] Phone [phone] Care Team Providers Care Psychologists Name Role Phone Benny Waite DO Primary Care Provider [phone] Reason for Referral * Precert (Within 24 hrs (call dept; emergent)) - Pending Review Specialty Diagnoses / Procedures Referred By Elaina hernandez Referred To Contact Radiology Diagnoses CHESTER (dyspnea on exertion) Abnormal finding on chest xray Procedures CT CHEST W WO CONTRAST Aleksandra Aggarwal PA-C [address] [id number] Referral ID Status Reason Start Date Expiration Date V isits Requested Visits Authorized [id number] Pending Review 07/06/2023 999 999 Reason for Visit * Reason Onset Date Comments Test Results 07/06/2023 Unexpected or In determinate Result Encounter Details Date Type Department Care Team (Late st Contact Info) Description 07/06/2023 Telephone Cardiology Yehuda Rodríguez [address] [id number] Aleksandra Aggarwal PA-C [address] [place] [id number] Test Results (Unexpected or Indeterminate [...] Oral Tablet Extended Release 24 Hour (toPROL XL)Indications:Animal Impersonator gunjan atrial fibrillation (HCC),CHF (congestive heart failure), NYHA class I, chronic, diastolic (HCC) TAKE ONE-HALF TABLET BY MOUTH IN THE MORNING 45 Tablet 3 02/22/2023 02/22/2024 Active Neomycin-Polymyxin- HC 3.5-83486-8 Otic SolutionIndications :Other infective acute otitis externa [...] CHF (congestive heart failure) 11/16/2022 Atherosclerosis of [place] co 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 pectoris 08/11/2022 Severe tricuspid regurgitation 08/11/2022 Gout, arthropathy 07/20/2022 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 02/05/2022 Permanent atrial fibrillation 12/22/2021 Overview: Added automatically from request for surgery [id number] Current moderate episode of major depressive disorder [...] as of this encounter Miscellaneous Notes * Addendum Note - Aleksandra Aggarwal PA-C [...] unexpected or indeterminate finding on Nikolas Silvestre ([id number]) and asks that you review the following report. Study Type:XR CHEST 2 VIEWS Date of Study: IMPRESSION IMPRESSION Increasing superior mediastinal density, with underlying mass or adenopathy not excluded. RecommendCT thorax for further evaluation. Please respond to this encounter to acknowledge receipt of this message and take responsibility to ensure this report is reviewed. Thank you, DEX Murillo Client Service [facility] documented in this encounter Plan of Treatment Upcoming Encounters Date Type Department Care Team (Late st Contact Info) Description 07/07/2023 9:30 AM EST Telemedicine Interventional Pain Center, [facility] [address] [address] Luann Mcgrath PA-C [address] [place] [address] 08/25/2023 9:40 AM EDT Office Visit [address] [facility] [phone] Benny Waite, DO 293 [place] [address] 12/21/2023 11:00 AM EDT Nurse Only Ancillary 65 [facility] 293 [place] [address] College, Nurse Annual Wellness Visit [address] [address] 01/05/2024 7:15 AM EDT Cardiac Studies Cardiac Studies, [facility] [address] [place] [address] 01/05/2024 8:30 AM EDT Office Visit Cardiology, [facility] [address] [place] [address] Franco Mcgregor MD [address] [place] [address] Scheduled Orders Name Type Priority [...] this encounter Medical Devices Implanted Type Area Ice Cream Chef Device Identifier Shelf Expiration Date Model / Serial / Lot Device Watchman Flx 35mm - [id number] Implanted:Qty: 1 on 02/05/2022 by Diamond Teran IV, MD at [facility] [employer] : INTRV CARD [id number] 10/20/2024 [id number] 50 / / [id number] Cath Thermodilution 6fr - [id number] Implanted:Qty: 1 on 07/31/2022 by Franco Mcgregor MD at [facility] [employer] [id number] 04/30/2024 [id number] / / [id number] Clip Delivery Sytem G4 Xtw - [id number] Implanted:Qty: 1 on 11/16/2022 at [facility] [employer] [id number] 09/10/2023 [id number] / / [id number] documented as of this encounter Visit [...] and were consensually agreed upon. Care Teams Psychologists Relationship Specialty Start Date End Date Benny Waite DO [address] [place] [address] PCP - General Internal Medicine 04/03/21 documented as of this encounter
--- OUTSIDE RECORDS SUMMARY | 2023-07-13 02:54 | External Medical Summary | Summary of Care ---
Author Name Unknown Organization [facility] Address [address] [facility] [place] [address] Phone [phone] Care Team Providers Care Top Lift Compressor Name Role Phone YifansaurabhBenny DO Primary Care Provider Reason for Visit * Reason Onset Date Comments Test Results 07/07/2023 Encounter Details Date Type Department Care Team (Late st Contact Info) Description 07/07/2023 Telephone Cardiology, [facility] 132 [facility] [place] [phone] Aleksandra Berger PA-C [address] [place] [address] [place] [address] Test Results Allergies Active Allergy Reactions Criticality Noted Date [...] Oral Tablet Extended Release 24 Hour (toPROL XL)Indications:Route 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 Servicer gunjan atrial fibrillation (HCC),CHF (congestive heart failure), NYHA class I, chronic, diastolic (HCC) TAKE ONE-HALF TABLET BY MOUTH IN THE MORNING 45 Tablet 3 02/22/2023 02/22/2024 Active Neomycin-Polymyxin- HC 3.5-63227-5 Otic SolutionIndications :Other infective acute otitis externa [...] CHF (congestive heart failure) 11/16/2022 Atherosclerosis of [place] co 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 pectoris 08/11/2022 Severe tricuspid regurgitation 08/11/2022 Gout, arthropathy 07/20/2022 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 02/05/2022 Permanent atrial fibrillation 12/22/2021 Overview: Added automatically from request for surgery [id number] Current moderate episode of major depressive disorder [...] mRNA, LNP-s, No Pre serve, 2-Dose Series ([employer]) 05/14/2021 COVID-19, LNP-s, No Preserve , Robbie-sucrose, Ages 12+ (Pfizer) 11/04/2021 COVID-19, MRNA-LNP, 23-24, P F, 30 MCG/0.3 mL, 12 YRS AND ABOVE, IM ([employer]) 04/16/2023 Covid-19, Mrna, Lnp-s, Pf, B ivalent, [...] encounter Miscellaneous Notes * Telephone Encounter - Aleksandra Berger PA-C - 07/07/2023 1:21 PM EST Discussed results of CT chest over phone. He states that he woke up this morning with sore throat, continues to have runny nose, shortness of breath. Discussed symptoms may be related to viral illness. He did not have respiratory panel done yesterday, I offered to have it done today to try to confirm if symptoms are due to flu, COVID, etc. 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 Discussed supportive measures. Regarding his symptoms, we discussed possibly starting diuretic such as furosemide to see if it would help his breathing. He states he has tried that in the past, it made him dizzy, he has been started on it and taken off and does not want to try it again. Today he has stopped buspirone to see if that helps. Recommended he discuss that further with PCP as they prescribed it. He states he will call PCP today. He was instructed to call office with any concerns. If symptoms were to worsen or he feels like he can't breathe he should be evaluated in the emergency department. documented in this encounter Plan of Treatment Upcoming Encounters Date Type Department Care Team (Late st Contact Info) Description 08/25/2023 9:40 AM EDT Office Visit Family Practice 65 [facility] 293 [place] [address] Benny Waite DO [address] [place] [address] 12/21/2023 11:00 AM EDT Nurse Only Ancillary 65 [facility] [address] [place] [address] College, Nurse Annual Wellness Visit [address] [address] 01/05/2024 7:15 AM EDT Cardiac Studies Cardiac Studies, [facility] [address] [place] [address] 01/05/2024 8:30 AM EDT Office Visit Cardiology, [facility] [address] [place] [address] Franco Mcgregor MD [address] [place] [address] Health Maintenance Due Date Last [...] this encounter Medical Devices Implanted Type Area Casting Repairer Device Identifier Shelf Expiration Date Model / Serial / Lot Device Watchman Flx 35mm - [id number] Implanted:Qty: 1 on 02/05/2022 by Diamond Teran IV, MD at [facility] [employer] : INTRV CARD [id number] 10/20/2024 [id number] 50 / / [id number] Cath Thermodilution 6fr - [id number] Implanted:Qty: 1 on 07/31/2022 by Franco Mcgregor MD at [facility] [employer] [id number] 04/30/2024 [id number] / / [id number] Clip Delivery Sytem G4 Xtw - [id number] Implanted:Qty: 1 on 11/16/2022 at [facility] [employer] [id number] 09/10/2023 [id number] / / [id number] documented as of this encounter Advance [...] and were consensually agreed upon. Care Teams Top Lift Compressor Relationship Specialty Start Date End Date Benny Waite DO 293 [facility] [place] [address] PCP - General Internal Medicine 10/21/21 documented as of this encounter
--- OUTSIDE RECORDS SUMMARY | 2023-07-13 02:55 | External Medical Summary | Summary of Care ---
Author Name Unknown Organization [facility] Address [address] [place] [address] Phone [phone] Care Team Providers Care Recovery Collector Name Role Phone Benny Waite DO Primary Care Provider [phone] Reason for Referral * Precert (Within 10 days (routine)) - Authorized Specialty Diagnoses / Procedures Referred By Contac t Referred To Contact Cardiac Studies Diagnoses Nonrheumatic mitral valve regurgitation S/P mitral valve clip implantation Procedures ECHO, COMPLETE (2D), TRANS-THORACIC Ale Leon CRNP [address] [place] [address] Referral ID Status Reason Start Date Expiration Date V isits Requested Visits Authorized [id number] Authorized Precert 12/15/2023 999 999 Reason for Visit * Reason Comments Hospital Follow-Up Encounter Details Date Type Department Care Team (Late st Contact Info) Description 06/16/2023 10:30 AM EST Office Visit Cardiology, [facility] [address] [place] [address] Ale Leon CRNP [address] [place] [address] Nonrheumatic mitral valve regurgitation*; S/P mitral valve clip implantation Allergies Active Allergy Reactions Criticality Noted Date Comments Adhesive Tape 02/04/2017 Levofloxacin 09/01/2019 documented as of this encounter (statuses as of 06/16/2023) Medications Medication Sig Dispensed Refills Start Date End Date Status Acetaminophen 500 MG Oral Tablet Take 2 Tablets by mouth as needed. 0 Active Aspirin 81 MG Oral Tablet Chewable Take by mouth 1 Tablet in the morning. Do not start before February 06, 2022. 0 02/06/2022 Active Additional Information Patient taking differently:81 mg OralDaily(Non-Specified), Reported on 08/11/2022 Docusate Sodium 100 MG Oral Capsule Take 1 Capsule by mouth at noon and 1 Capsule in the evening. 0 Active traMADol HCl 50 MG Oral Tablet (Ultram)Indications :Lumbar degenerative disc disease Take 1 Tablet by mouth every 6 hours as needed for Pain, Severe. 30 Tablet 0 11/10/2022 Active Metoprolol Succinate ER 25 MG Oral Tablet Extended Release 24 Hour (toPROL XL)Indications:Photography Spotter gunjan atrial fibrillation (HCC),CHF (congestive heart failure), NYHA class I, chronic, diastolic (HCC) TAKE ONE-HALF TABLET BY MOUTH IN THE MORNING 45 Tablet 3 02/22/2023 02/22/2024 Active Neomycin-Polymyxin- HC 3.5-03928-3 Otic SolutionIndications :Other infective acute otitis externa [...] EVERY MORNING 100 Tablet 2 05/25/2023 Active Meclizine HCl 12.5 MG Oral Tablet (Antivert)Indicatio ns:Vertigo Take 1 Tablet by mouth 2 times a day as needed for Dizziness. 180 Tablet 1 06/16/2023 Active Hospital, Clinic, or Other Facility Administered Medication Ordered Dose Route Frequency Start Date End Date Status Albuterol Sulfate (Proventil) (2.5 MG/3ML) 0.083% inhalation solution 2.5 mgIndications:SOB (shortness of breath) 2.5 mg NEBULIZER PRN 12/02/2022 12/02/2023 Act jacinto Albuterol Sulfate (Proventil) (5 MG/ML) 0.5% *conc* inhalation solution 2.5 mgIndications:SOB (shortness of breath) 2.5 mg NEBULIZER PRN 12/02/2022 12/02/2023 Act jacinto documented as of this encounter (statuses as of 06/16/2023) Active Problems Problem Noted Date Diagnosed Date Sacroiliitis, not elsewhere classified S/P MVR (mitral valve repair) 11/16/2022 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) 11/16/2022 Atherosclerosis of [place] co 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 pectoris 08/11/2022 Severe tricuspid regurgitation 08/11/2022 Gout, arthropathy 07/20/2022 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 02/05/2022 Permanent atrial fibrillation 12/22/2021 Overview: Added automatically from request for surgery [id number] Current moderate episode of major depressive disorder [...] as of this encounter (statuses as of 06/16/2023) Resolved Problems Problem Noted Date Diagnosed Date Resolved Date Severe obesity with body mas s index (BMI) of 35.0 to 39.9 with serious comorbidity 04/24/2022 Aortic root enlargement 10/01/202001/12 Enlarged aorta 05/02/2019 08/19/2020 Senile purpura 05/02/2019 08/19/2020 Mixed connective tissue disease 05/07/2018 08/19/2020 Chronic atrial fibrillation 01/18/2018 12/11/2022 documented as of this encounter (statuses as of 06/16/2023) Immunizations Name Administration Dates Next Due COVID-19 mRNA, LNP-s, No Pre serve, 2-Dose Series (Moderna) 08/20/2020,07/17/2020 COVID-19 mRNA, LNP-s, No Pre serve, 2-Dose Series (Pfizer) 05/14/2021 COVID-19, LNP-s, No Preserve , Robbie-sucrose, Ages 12+ (Pfizer) 11/04/2021 COVID-19, MRNA-LNP, 23-24, P F, 30 MCG/0.3 mL, 12 YRS AND ABOVE, IM ([employer]) 04/16/2023 Covid-19, Mrna, Lnp-s, Pf, B ivalent, 30 Mcg, IM, 12 yrs and above ([employer]) 03/17/2022 Pneumococcal Conjugate Vacc, 13 Valent (Prevnar) [...] Passive Smoke Exposure: Never Smokeless Tobacco: Never Tobacco Cessation:Counseling Given: Not Answered Alcohol Use Standard Drinks/Week Comments Not Currently [...] Answer Date Recorded PHQ Adult Total Score 0 06/02/2023 Hunger Vital Sign Answer Date Recorded Within the past 12 months, y ou worried that your food would run out before you got the money to buy more. Never true 06/02/20 23 Within the past 12 months, t he food you bought just didn't last and you didn't have money to get more. Never true 06/02/2023 Sex and Gender Information Value Date Recorded Sex Assigned at Male 09/15/2018 8:52 AM EDT Gender Identity Male 09/15/2018 8:52 AM EDT Sexual Orientation Straight 09/15/2018 8: 52 AM EDT Job Start Date Occupation Industry Not on file Not on file Not on file documented as of this encounter Last Filed Vital Signs Vital Sign Reading Time Taken Comments Blood Pressure 128/76 06/16/2023 9:38 AM EST Pulse 86 06/16/2023 9:38 AM EST Temperature - - Respiratory Rate - - Oxygen Saturation 96% 06/16/2023 9:38 AM EST Inhaled Oxygen Concentration - - Weight 101.2 kg (223 lb) 06/16/2023 9:38 AM EST Height - - Body Mass Index 34.67 06/16/2023 8:53 AM EST documented in this encounter Functional Status Functional Status Response [...] as of this encounter Progress Notes * Ale Leon CRNP - 06/16/2023 10:30 AM EST Cardiology Outpatient Clinic Note 06/16/2023 Primary Tipple Worker: Dr. Barraza Past medical history: Permanent atrial fibrillation [id number] score of 3 (age 1, CHF) S/p watchman (# 35mm FLEX) 02/05/[address] Teran (BRBPR while on Eliquis) History amaurosis fugax, 11/2021 Negative carotid duplex HFpEF, NYHA class 2 Moderate to severe mitral and tricuspid regurgitation S/p MitraClip XT W device with reduction of regurgitation for 4+ to 1+, 11/16/[address] Mcgregor Mildly enlarged aortic root and proximal ascending aorta, 3.8/3.8 cm respectively per echo 12/2022 Severe DEX, not on CPAP Seronegative inflammatory arthritis, on Plaquenil Hx of GERD and gastritis Vertigo HPI 82-year-old male presenting to the cardiology office today for an acute/hospital discharge appointment. Patient presented to [facility] Emergency Department on 06/10/2023 with multiple complaints including occasional chest pain and shortness of breath, weakness/fatigue, and lightheadedness. Symptoms have been present for several months. Cardiac workup was unremarkable including an unchanged EKG revealing atrial fibrillation, negative high sensitivity troponins. Chest x-ray without evidence of CHF. Blood work without electrolyte imbalances or anemia. Blood pressure was normotensive. While in the emergency department he was started on Eliquis due to his permanent atrial fibrillation however he does have a Watchman in place due to history of significant bleeding while on anticoagulation. Patient never started this medication. Today the patient presents with ongoing complaints as stated above. He is frustrated with frequent doctor's visits. Seen by his PCP earlier today-- concerns for vertigo. Given a PT referral and placed on Meclizine. He states he is compliant with all medications, and offers no side effects. Takes his blood pressures at home prior to morning medications. Notes that readings are 150s over 80s. Blood pressure is controlled in office, today 128/76 and 134/74. Current Outpatient Medications Medication Sig Dispense Refill Acetaminophen 500 MG Oral Tablet Take 2 Tablets by mouth as needed. Aspirin 81 MG Oral Tablet Chewable Take by mouth 1 Tablet in the morning. Do not start before February 06, 2022. (Patient taking differently: Take 1 Tablet by mouth daily.) Docusate Sodium 100 MG Oral Capsule Take [...] MOUTH IN THE MORNING 45 Tablet 3 Wrzjaefv-Nljtqgdbk-QN 3.5-04708-6 Otic Solution Administer 4 Drops into the [...] BY MOUTH EVERY MORNING 100 Tablet 2 Meclizine HCl 12.5 MG Oral Tablet (Antivert) Take 1 Tablet by mouth 2 times a day as needed for Dizziness. 180 Tablet 1 Current Facility-Administered Medications Medication Dose Route Frequency Provider Last Rate Last Admin Albuterol Sulfate (Proventil) (2.5 MG/3ML) 0.083% inhalation solution 2.5 mg 2.5 mg Nebulizer PRN FallGlen PA-C Albuterol Sulfate (Proventil) (5 MG/ML) 0.5% *conc* inhalation solution 2.5 mg 2.5 mg Nebulizer PRNHGlen shaffer PA-C 2.5 mg at 12/10/22 1256 Facility-Administered Medications Ordered in Other Visits Medication Dose Route Frequency Provider Last Rate Last Admin LORazepam (ATIVAN) inj Once PRN Suarez, Marion, SRNA 2 mg at 09/13/12 1340 Past Medical History: Diagnosis Date Aortic root [...] DIAGNOSTIC (RECTUM) 02/13/2021 diverticulosis, fair prep / [facility] COLORECTAL CANCER SCREEN; NOT AT RISK 04/04/2008 Diverticulosis CORONARY ANGIOGRAPHY W/RIGHT+LEFT CATH Bilateral 07/31/2022 CORONARY ANGIOGRAPHY W/RIGHT+LEFT CATH [place] Mcgreg[place] [facility] [place] 10/22[place]2011 CYSTOURETHROSCOPY performed by LIBERTAD FITZPATRICK at [facility] CYSTOSCOPY 09/13/2012 CYSTOURETHROSCOPY performed [place] Eliseo Menard [place] [facility] DX/THER SUBSTANCE INTERLAMINAR LUMBAR/SACRAL W IMAGE GUIDE 06/23/2021 INJECTION SPINE LUMBAR OR SACRAL performed by Anderson Easton DO at OR [facility] OTHER 02/13/1980 Dr. Zhang DEX surgery OTHER left hand reconstruction PERC CLOSURE TRANSCATH LEFT ATRIAL APPENDAGE W/ENDOCARDIAL IMPLANT N/A 02/05/2022 PERCUTANEOUS CLOSURE LEFT ATRIAL APPENDAGE IMPLANT performed by Diamond Teran IV, [place] [facility] [place] 06/14/2004 3.42 PSA 06/14/2005 3.72 PSA 02/13/2008 5.17 REMOVAL OF PROSTATE (TURP) 10/22/2011 TRANSURETHRAL RESECTION PROSTATE ELECTROSURGICAL performed [place] LIBERTAD FITZPATRICK [place] [facility]OVAL OF PROSTATE (TURP) 09/13/2012 TRANSURETHRAL RESECTION PROSTATE ELECTROSURGICAL performed by Eliseo Menard [place] [facility] [place] REMOVE CATARACT, INSERT LENS PROSTH OU REMOVE TONSILS & ADENOIDS, UNDER 12 SACROILIAC JOINT INJECT W/GUIDANCE 11/11/2022 INJECTION SACROILIAC JOINT performed by Anderson Easton DO at OR [facility] SACROILIAC JOINT INJECT W/GUIDANCE 02/10/2023 INJECTION SACROILIAC JOINT performed by Anderson Easton DO at OR [facility] SACROILIAC JOINT INJECT W/GUIDANCE 05/26/2023 INJECTION SACROILIAC JOINT performed by Anderson Easton DO at OR [facility] TRANSCATH REPAIR MITRAL VALVE, INITIAL Bilateral 11/16/2022 TRANSCATHETER MITRAL VALVE REPAIR performed by Franco Mcgregor MD [place] [facility] [place] W/ REMOVE OF EPIRETINAL MEMBRANE 11/12/2008 Right eye Social History Tobacco Use Smoking status: Never Passive exposure: Never Smokeless tobacco: Never Vaping Use Vaping Use: Never used Substance Use Topics Alcohol use: Not Currently Drug use: No Review of patient's allergies indicates: Allergen Reactions Adhesive Tape Levaquin [Levofloxacin] Review of Systems: See HPI for pertinent positives. All others negative, other than those noted in HPI. Physical Exam BP 128/76 | Pulse 86 | Wt 101.2 kg (223 lb) | SpO2 96% | BMI 34.67 kg/m | BSA 2.19 m General: No acute distress. A+Ox3. HEENT: Normocephalic. Atraumatic. Conjunctiva and sclera clear. NECK: No carotid bruits. No JVD. Carotid upstrokes are brisk. Heart: Irregular. S1 and S2 noted. +2/6 systolic murmur. Lungs: Clear to auscultation. No wheezes, rhonchi, rales. Abdomen: Normal bowel sounds. Soft. Nontender. No masses or organomegaly. No abdominal bruits. Extremities: No edema. No clubbing or cyanosis. 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 BL groin sites healed. Pulses: radial=2/4, posterior tibial=2/4, dorsalis pedis = 2/4. NEURO: No focal deficits. PSYCH: Normal. Lab data/imaging study review: TTE 11/17/22- POD 1 MitraClip The examination is adequate to evaluate the referral indication. Calculated LV ejection Fraction = 47% (bi-plane method of discs). There is diffuse mild hypokinesis. The right ventricular cavity is mildly dilated. The right ventricular systolic function is qualitatively normal. SP transcutaneous mitral zvwu-zp-vhfd repair with two MitraClip XTW devices. Mild mitral regurgitation is present. The average mitral mean gradient at a heart rate of 88 bpm is 3 mmHg. The aortic root and proximal ascending aorta are mildly enlarged. There was atrial fibrillation during the examination. " BO 11/16/22- Intra op MitraClip Imaging was done prior to,during and following transcatheter edge to edge. repair of the mitral valve with a Mitraclip Findings were discusses at the time of the procedure with Dr Lema? The examination is adequate to evaluate the referral indication. Preprcedural findings: There is bileaflet mitral valve prolapse present. The A2 scallop overrides P2 leading to a severe jet of posterior directed jet of severe mitral regurgitation. There is definite tricuspid valve prolapse present. There were two moderate jets of tricuspid regurgitation. The larger was between the anterior and posterior leaflets Following placement of the first mitral clip, the eccentric severe jet was markedly reduced . A more lateral jet of moderate MR became apparent. Asecond mirtral clip was placed reducing the MR to mild . Following the removal of the trans septal sheath, flow across there interatrial septum was predominately left to right. Given the position of the largest TR jet, the decision was mad not to proceed with transcatheter edge to edge repair of the tricuspid valve. " DSE 06/18/2022 The examination is adequate to evaluate the referral indication. The stress echo is negative for inducible ischemia. The qualitative LV ejection fraction is 50-54% (normal). The LV wall thickness is mildly increased (concentric). The left ventricular wall motion is normal. The left atrium is severely enlarged. The right atrium is moderately enlarged. The left ventricular diastolic function is abnormal. Mild aortic valve sclerosis is present. There is mild mitral annular calcification. The mitral valve leaflets thickness is mildly increased. There is borderline anterior mitral leaflet prolapse. There is mild posterior mitral leaflet prolapse. Moderate to severe mitral regurgitation. Severe tricuspid regurgitation is present. There is mild pulmonary regurgitation. The aortic root and proximal ascending aorta are mildly enlarged. Impression/Plan: 2. Nonrheumatic mitral valve regurgitation status post MitraClip 3. Nonrheumatic tricuspid valve regurgitation -Moderate to severe mitral and tricuspid regurgitation. S/p MitraClip XT W device with reduction ofMitral regurgitation for 4+ to 1+, 11/16/[address] Mcgregor -NYHA class 2-3 1. Continue aspirin 81 mg daily 2. Repeat resting echocardiogram in December prior to Dr. Mcgregor/valve clinic appointment. 4. Chronic diastolic congestive heart failure (HCC) -Euvolemic on exam. -NYHA class 2-3 1. Lasix was held due to positional lightheadedness. Not currently requiring diuretic therapy. 2. Follow a low-sodium diet (less than 2g/2000mg daily). Start daily weights- weigh first thing in the morning after using the bathroom. Should weight increase 3 pounds in 1 day or 5 pounds in 1 week, notify cardiology. 5. Permanent atrial fibrillation (HCC) 6. Presence of Watchman left atrial appendage closure device -Permanent atrial fibrillation. -[id number] score of 3 (age 1, CHF). Intolerant to AC--BRBPR while on Eliquis -S/p watchman (# 35mm FLEX) 02/05/[address] Teran Continue aspirin 81 mg daily Patient does not wish to start anticoagulation. The patient agrees to the above plan and will call with additional questions or concerns. ER with all emergencies advised. Follow-up: Return in about 6 months (around 12/15/2023). | Check-out note: 6 months with SH-- only wants to See SH. Echo same day as Balbir appt. I spent a total of 30 minutes on the date of service in preparation, delivery, and documentation ofthe care provided to Nikolas Silvestre excluding any time spent in the performance of separately billed services. JUAN Valero [facility], Department of Cardiology This chart was completed in part utilizing [employer] Speech Voice Recognition Software. Grammatical errors, random word insertions, prounoun errors, and incomplete sentences are an occasional consequence of this system due to software limitations, ambient noise, and hardware issues. Any formal questions or concerns about the content, text, or information contained within the body of this dictation should be directly addressed to the provider for clarification. documented in this encounter Plan of Treatment Upcoming Encounters Date Type Department Care Team (Late st Contact Info) Description 07/07/2023 9:30 AM EST Telemedicine Interventional Pain Center, [facility] [address] [facility] [place] [address] Luann Mcgrath PA-C [address] [facility] [address] 08/25/2023 9:40 AM EDT Office Visit Family Practice [address] [facility] [address] [place] [address] Benny Waite, [address] [place] [address] 12/21/2023 11:00 AM EDT Nurse Only Ancillary [address] [facility] [address] [place] [address] College, Nurse Annual Wellness Visit [address] [place] [address] 01/05/2024 7:15 AM EDT Cardiac Studies Cardiac Studies, [facility] [address] [place] [address] 01/05/2024 8:30 AM EDT Office Visit Cardiology, [facility] [address] [place] [address] Franco Mcgregor MD [address] [place] [address] Scheduled Orders Name Type Priority Associated Diagnoses Orde r Schedule ECHO, COMPLETE (2D), TRANS-THORACIC Echocardiology Routine Nonrheumatic mitral valve regurgitation S/P mitral valve clip implantation Expected: 12/15/2023, Expires: 07/17/2025 Health Maintenance Due Date Last Done Comments Hepatitis B (1 of 3 - Risk 3-dose series) 1998 Depression Screening 06/16/2024 06/16/2023 DTaP,Tdap,and Td Vaccines (2 - Td or Tdap) 04/20/2028 04/20/2018 Pneumococcal Vaccine: 65+ Years Completed 05/02/2019, 04/20/2018 Zoster Vaccines Completed 12/13/2019, 02/0 08/2019, 04/18/2015 Influenza Vaccine (FLU shot) Completed 01/2023, 03/12/2022, 03/13/2021, Additional history exists COVID-19 Vaccine Completed 04/16/2023, 09/2021, 11/04/2021, Additional history exists GARDASIL-HPV IMMUNIZATION SERIES Aged Out No longer eligible based on patient's age to complete this topic MENINGOCOCCAL (MENACTRA/MENVEO) Aged Out No longer eligible based on patient's age to complete this topic documented as of this encounter Medical Devices Implanted Type Area Mortgage Clerk Device Identifier Shelf Expiration Date Model / Serial / Lot Device Watchman Flx 35mm - [id number] Implanted:Qty: 1 on 02/05/2022 by Diamond Teran IV, [place] [facility] [employer] : INTRV CARD [id number] 10/20/2024 [id number] / / [id number] Cath Thermodilution 6fr - [id number] Implanted:Qty: 1 on 07/31/2022 by Franco Mcgregor MD [place] [facility] [place] [employer] [id number] 04/30/2024 [id number] / / [id number] Clip Delivery Sytem G4 Xtw - [id number] Implanted:Qty: 1 on 11/16/2022 [place] [facility] [employer] [id number] 09/10/2023 [id number] / / [id number] documented as of this encounter Visit Diagnoses Diagnosis Nonrheumatic mitral valve regurgitation- Primary S/P mitral valve clip implantation documented in this encounter Advance Directives Latest [...] and were consensually agreed upon. Care Teams Recovery Collector Relationship Specialty Start Date End Date Benny Waite DO [address] [place] [address] PCP - General Internal Medicine 04/03/21 documented as of this encounter
--- OUTSIDE RECORDS SUMMARY | 2023-07-13 02:55 | External Medical Summary | Summary of Care ---
Author Name Unknown Organization [facility] Address [address] [facility] [place] [address] Phone [phone] Care Team Providers Care Jet Wiper Name Role Phone YifansaurabhBenny DO Primary Care Provider [phone] Encounter Details Date Type Department Care Team (Late st Contact Info) Description 07/05/2023 Telephone Cardiology, [facility] [address] [place] [address] Casimiro Barraza MD [address] [place] [address] Allergies Active Allergy Reactions Criticality Noted Date Comments Adhesive Tape 02/04/2017 Levofloxacin 09/01/2019 documented as of this encounter (statuses as of 07/05/2023) Medications Medication Sig Dispensed Refills Start Date [...] Oral Tablet Extended Release 24 Hour (toPROL XL)Indications:Software Test Specialist gunjan atrial fibrillation (HCC),CHF (congestive heart failure), NYHA class I, chronic, diastolic (HCC) TAKE ONE-HALF TABLET BY MOUTH IN THE MORNING 45 Tablet 3 02/22/2023 02/22/2024 Active Neomycin-Polymyxin- HC 3.5-72177-9 Otic SolutionIndications :Other infective acute otitis externa [...] as of this encounter (statuses as of 07/05/2023) Active Problems Problem Noted Date Diagnosed Date [...] Overview: Added automatically from request for surgery [id number] Current moderate episode of major depressive disorder [...] as of this encounter (statuses as of 07/05/2023) Resolved Problems Problem Noted Date Diagnosed Date Resolved Date Severe obesity with body mas s index (BMI) of 35.0 to 39.9 with serious comorbidity 04/24/2022 Aortic root enlargement 10/01/202001/12 Enlarged aorta 05/02/2019 08/19/2020 Senile purpura 05/02/2019 08/19/2020 Mixed connective tissue disease 05/07/2018 08/19/2020 Chronic atrial fibrillation 01/18/2018 12/11/2022 documented as of this encounter (statuses as of 07/05/2023) Immunizations Name Administration Dates Next Due COVID-19 mRNA, LNP-s, No Pre serve, 2-Dose Series (Moderna) 08/20/2020,07/17/2020 COVID-19 mRNA, LNP-s, No Pre serve, 2-Dose Series (Factonomy) 05/14/2021 COVID-19, LNP-s, No Preserve , Robbie-sucrose, Ages 12+ (Pfizer) 11/04/2021 COVID-19, MRNA-LNP, 23-24, P F, 30 MCG/0.3 mL, 12 YRS AND ABOVE, IM ([employer]-Comirnaty) 04/16/2023 Covid-19, Mrna, Lnp-s, Pf, B ivalent, [...] encounter Miscellaneous Notes * Telephone Encounter - Oscar Viera RN - 07/05/2023 9:55 AM EST Called and spoke to patient after speaking with Marnie Taylor RN from [facility] here in [facility]. The patient had called them and stated he was short of breath. He was outside filling the bird feeder when it happened and he could hardly make it back to the house. He called [facility]. They had him check his 02 at an it was 92% with HR running 33- 40's. Was able to obtain appointment for Nikolas at2:00 pm today with Aleksandra Berger. He accepted. I called [facility] and left message that the patient will be coming in to Cardiology. documented in this encounter Plan of Treatment Upcoming Encounters Date Type Department Care Team (Late st Contact Info) Description 07/05/2023 2:00 PM EST Office Visit Cardiology, [facility] 132 [facility] [place] [address] Aleksandra Berger PA-C [address] [place] [address] [place] [address] 07/07/2023 9:30 AM EST Telemedicine Interventional Pain Center, [facility] 132 [facility] [place] [address] Luann Mcgrath PA-C 132 [facility] [place] [address] 08/25/2023 9:40 AM EDT Office Visit Family Practice 65 [facility] 293 [place] [address] Benny Waite, 293 [facility] [place] [address] 12/21/2023 11:00 AM EDT Nurse Only Ancillary 65 [facility] 293 [place] [address] College, Nurse Annual Wellness Visit [address] [place] [address] 01/05/2024 7:15 AM EDT Cardiac Studies Cardiac Studies, [facility] 132 [facility] [place] [address] 01/05/2024 8:30 AM EDT Office Visit Cardiology, [facility] 132 [facility] [place] [address] Franco Mcgregor MD [address] [place] [address] Health Maintenance Due Date Last [...] this encounter Medical Devices Implanted Type Area Still Pump Operator Device Identifier Shelf Expiration Date Model / Serial / Lot Device Watchman Flx 35mm - [id number] Implanted:Qty: 1 on 02/05/2022 by Diamond Teran IV, MD at [facility] [place] [employer] : INTRV CARD [id number] 10/20/2024 [id number] / / [id number] Cath Thermodilution 6fr - [id number] Implanted:Qty: 1 on 07/31/2022 by Franco Mcgregor MD at [facility] [employer] [id number] 04/30/2024 [id number] / / [id number] Clip Delivery Sytem G4 Xtw - [id number] Implanted:Qty: 1 on 11/16/2022 at [facility] [employer] [id number] 09/10/2023 [id number] / / [id number] documented as of this encounter Advance [...] and were consensually agreed upon. Care Teams Jet Wiper Relationship Specialty Start Date End Date Benny Waite DO [address] [place] [facility] [place] [address] PCP - General Internal Medicine 04/03/21 documented as of this encounter
--- OUTSIDE RECORDS SUMMARY | 2023-07-13 02:55 | External Medical Summary | Summary of Care ---
Author Name Unknown Organization [facility] Address [address] [facility] [place] [address] Phone [phone] Care Team Providers Care Carbon Rod Inserter Name Role Phone YifansaurabhBenny DO Primary Care Provider [phone] Reason for Visit * Reason Comments Outpatient Testing Encounter Details Date Type Department Care Team (Late st Contact Info) Description 07/05/2023 2:30 PM EST Laboratory Laboratory, [facility] [address] [facility] 132 [place] [address] CHESTER (dyspnea on exertion) Allergies Active Allergy Reactions Criticality Noted Date [...] Oral Tablet Extended Release 24 Hour (toPROL XL)Indications:Beaver Trapper gunjan atrial fibrillation (HCC),CHF (congestive heart failure), NYHA class I, chronic, diastolic (HCC) TAKE ONE-HALF TABLET BY MOUTH IN THE MORNING 45 Tablet 3 02/22/2023 02/22/2024 Active Neomycin-Polymyxin- HC 3.5-55036-9 Otic SolutionIndications :Other infective acute otitis externa [...] CHF (congestive heart failure) 11/16/2022 Atherosclerosis of napaimute co 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 pectoris 08/11/2022 Severe tricuspid regurgitation 08/11/2022 Gout, arthropathy 07/20/2022 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 02/05/2022 Permanent atrial fibrillation 12/22/2021 Overview: Added automatically from request for surgery [id number] Current moderate episode of major depressive disorder [...] mRNA, LNP-s, No Pre serve, 2-Dose Series ([employer]) 05/14/2021 COVID-19, LNP-s, No Preserve , Robbie-sucrose, Ages 12+ (Pfizer) 11/04/2021 COVID-19, MRNA-LNP, 23-24, P F, 30 MCG/0.3 mL, 12 YRS AND ABOVE, IM ([facility]-Comirnaty) 04/16/2023 Covid-19, Mrna, Lnp-s, Pf, B ivalent, [...] No 11/16/2022 documented as of this encounter Plan of Treatment Upcoming Encounters Date Type Department Care Team (Late st Contact Info) Description 07/05/2023 2:40 PM EST [facility] [address] [place] [address] Arrived 07/07/2023 9:30 AM EST Telemedicine Interventional Pain Center, [facility] 132 [place] [address] Luann Mcgrath PA-C 132 [place] [address] 08/25/2023 9:40 AM EDT Office Visit Family Practice 65 [facility] [address] [facility] [address] 12/21/2023 11:00 AM EDT Nurse Only Ancillary 65 [facility] 293 [facility] [address] College, Nurse Annual Wellness Visit [address] [address] 01/05/2024 7:15 AM EDT Cardiac Studies Cardiac Studies, [facility] 132 [facility] [place] [address] 01/05/2024 8:30 AM EDT Office Visit Cardiology, [facility] 132 [facility] [place] [address] Franco Mcgregor MD [address] [place], [place] [id number] Pending Results Name Type Priority Associated Diagnoses Date /Time COMPREHENSIVE METABOLIC PANEL Lab Routine CHESTER (dyspnea on exertion) 07/05/2023 2:12 PM EST BNP, NT-PRO Lab Routine CHESTER (dyspnea on exertion) 07/05/2023 2:12 PM EST Health Maintenance Due Date Last Done Comments [...] this encounter Medical Devices Implanted Type Area Junior Systems Analyst Device Identifier Shelf Expiration Date Model / Serial / Lot Device Watchman Flx 35mm - [id number] Implanted:Qty: 1 on 02/05/2022 by Diamond Teran IV, MD at [facility] [employer] : INTRV CARD [id number] 10/20/2024 [id number] 50 / / [id number] Cath Thermodilution 6fr - [id number] Implanted:Qty: 1 on 07/31/2022 by Franco Mcgregor MD at [facility] [employer] [id number] 04/30/2024 [id number] / / [id number] Clip Delivery Sytem G4 Xtw - [id number] Implanted:Qty: 1 on 11/16/2022 at [facility] [employer] [id number] 09/10/2023 [id number] / / [id number] documented as of this encounter Procedures Procedure Name Priority Date/Time Associated Diagnosis Comments DIFFERENTIAL, AUTOMATED Routine 07/05/2023 2:12 PM EST CHESTER (dyspnea on exertion) CBC Routine 07/05/2023 2:12 PM EST CHESTER (dyspnea on exertion) CBC Routine 07/05/2023 2:12 PM EST CHESTER (dyspnea on exertion) documented in this encounter Results * DIFFERENTIAL, AUTOMATED (07/05/2023 2:12 PM EST) WBC 7.71 4.00 - 10.80 K/uL 07/05/2023 2:16 PM EST [facility] [place] [facility]10 Neutrophils % 68.5 40.0 - 75.0 % 07/05/2023 2:16 PM EST [facility] [place] 57-10 Lymphocytes % 18.0 18.0 - 42.0 % 07/05/2023 2:16 PM EST [facility] [place] 57-10 Monocytes % 10.9 1.0 - 11.0 % 07/05/2023 2:16 PM EST [facility] [place] 57-10 Eosinophils % 2.1 0.0 - 6.0 % 07/05/2023 2:16 PM EST [facility] [place] 57-10 Basophils % 0.5 0.0 - 2.0 % 07/05/2023 2:16 PM EST [facility] [place] 57-10 Absolute Neutrophils 5.28 1.80 - 7.70 K/uL 07/05/2023 2:16 PM EST [facility] [place] 57-10 Absolute Lymphocytes 1.39 1.00 - 4.80 K/ul 07/05/2023 2:16 PM EST [facility] [place] 57-10 Absolute Monocytes 0.84 0.00 - 1.10 K/uL 07/05/2023 2:16 PM EST [facility] [place] 57[facility]10 Absolute Eosinophils 0.16 0.00 - 0.70 K/uL 07/05/2023 2:16 PM EST [facility] [place] 57[facility]10 Absolute Basophils 0.04 0.00 - 0.20 K/uL 07/05/2023 2:16 PM EST [facility] [place] 57-10 Blood Venous blood specimen / Unknown Venipuncture / Unknown 07/05/2023 2:12 PM EST 07/05/2023 2:12 PM EST Aleksandra Berger PA-C LAB BLOOD ORDER [facility] [place] 57-10 132 [place] [address] * CBC (07/05/2023 2:12 PM EST) WBC 7.71 4.00 - 10.80 K/uL 07/05/2023 2:16 PM EST [facility] [place] 57[facility]10 RBC 4.10 4.50 - 5.25 M/uL 07/05/2023 2:16 PM EST [facility] 57-10 HGB 15.4 14.0 - 16.8 g/dL 07/05/2023 2:16 PM EST [facility] [place] 57-10 HCT 43.7 40.0 - 48.4 % 07/05/2023 2:16 PM EST [facility] [place] 57[facility]10 MCV 106.6 82.0 - 99.5 fL 07/05/2023 2:16 PM EST [facility] [place] 57[facility]10 MCH 37.6 27.0 - 34.0 pg 07/05/2023 2:16 PM EST [facility] [place] 57-10 MCHC 35.2 32.0 - 36.0 g/dL 07/05/2023 2:16 PM EST [facility] [place] 57[facility]10 RDW 14.2 11.5 - 15.5 % 07/05/2023 2:16 PM EST [facility] [place] 57-10 PLT 188 140 - 400 K/uL 07/05/2023 2:16 PM EST [facility] [place] 57-10 MPV 9.5 6.6 - 11.1 fL 07/05/2023 2:16 PM EST [facility] [place] 57-10 Blood Venous blood specimen / Unknown Venipuncture / Unknown 07/05/2023 2:12 PM EST 07/05/2023 2:12 PM EST Aleksandra Berger PA-C LAB BLOOD ORDER [facility] [place] 57-10 [address] [place] [address] documented in this encounter Visit Diagnoses Diagnosis CHESTER (dyspnea on exertion) Other dyspnea and respiratory abnormality documented in this encounter Advance Directives Latest [...] and were consensually agreed upon. Care Teams Carbon Rod Inserter Relationship Specialty Start Date End Date Benny Waite DO [address] [facility] [address] PCP - General Internal Medicine 04/03/21 documented as of this encounter
--- OUTSIDE RECORDS SUMMARY | 2023-07-13 02:55 | External Medical Summary ---
Author Name Unknown Address Unknown Organization [id number]:[facility] [place] 57-10 - [address] [place] [address] Laboratory Report Ordering Provider Test Date Status JASEN GAMA 07/05/2023 14:12:54 Final Observation Date Value Abnormality Reference (Units ) Status BUN 07/05/2023 14:12:54 27 Above high normal 6-20 (mg/dL) Final Creatinine 07/05/2023 14:12:54 1.0 0.6-1.2 (mg/dL) Final Glomerular filtration rate/1.73 sq M.predicted [Volume Rate/Area] in Serum, Plasma or Blood by Creatinine-based formula (CKD-EPI) 07/05/2023 14:12:54 72 >=60 (mL/min) Final eGFR is calculated based on the CKD-EPI 2020 equation SODIUM 07/05/2023 14:12:54 143 135-146 (m mol/L) Final Potassium 07/05/2023 14:12:54 4.5 3.5-5.1 (m mol/L) Final Cl 07/05/2023 14:12:54 107 98-107 (mm ol/L) Final CO2 07/05/2023 14:12:54 26 22-32 (mmo l/L) Final Anion gap 07/05/2023 14:12:54 10 7-15 (mmol /L) Final Glucose 07/05/2023 14:12:54 69 Below low normal 70- 120 (mg/dL) Final Albumin 07/05/2023 14:12:54 4.2 3.8-5.0 (g /dL) Final AST (Aspartate aminotransferase) 07/05/2023 14:12:54 34 10-50 (U/L) Fin al Result may be falsely elevat ed due to hemolysis. Alk Phos 07/05/2023 14:12:54 68 35-130 (U/ L) Final Bilirubin, Total 07/05/2023 14:12:54 0.5 <=1 .2 (mg/dL) Final Calcium 07/05/2023 14:12:54 9.4 8.4-10.2 ( mg/dL) Final Protein 07/05/2023 14:12:54 6.8 6.0-8.3 (g /dL) Final ALT (Alanine aminotransferase) 07/05/2023 14:12:54 26 10-50 (U/L) Final Performing Location LABORATORY [place] 57-1 0 - [address] [facility] [address]
--- OUTSIDE RECORDS SUMMARY | 2023-07-13 02:55 | External Medical Summary ---
Author Name Unknown Address Unknown Organization [id number]:[facility] 57-10 - [address] [place] [address] Laboratory Report Ordering Provider Test Date Status JASEN GAMA 07/05/2023 14:12:54 Final Observation Date Value Abnormality Reference (Units ) Status WBC, Total 07/05/2023 14:12:54 7.71 4.00-10.8 0 (K/uL) Final RBC 07/05/2023 14:12:54 4.10 4.50-5.25 (M/uL) Final Hemoglobin 07/05/2023 14:12:54 15.4 14.0-16.8 (g/dL) Final HCT 07/05/2023 14:12:54 43.7 40.0-48.4 (%) Final MCV 07/05/2023 14:12:54 106.6 82.0-99.5 (fL) Final MCH 07/05/2023 14:12:54 37.6 27.0-34.0 (pg) Final MCHC 07/05/2023 14:12:54 35.2 32.0-36.0 (g/dL) Final RDW 07/05/2023 14:12:54 14.2 11.5-15.5 (%) Final Platelets 07/05/2023 14:12:54 188 140-400 (K /uL) Final MPV 07/05/2023 14:12:54 9.5 6.6-11.1 ( fL) Final Performing Location [facility]ORY [facility] 57-1 0 - [address] [place] [address]
--- OUTSIDE RECORDS SUMMARY | 2023-07-13 02:55 | External Medical Summary ---
Author Name Unknown Address Unknown Organization K01:[facility]ORY [facility] [address] [place] [address] Laboratory Report Ordering Provider Test Date Status JASEN GAMA 07/05/2023 14:12:54 Final Exclude Heart Failure: <300 pg/mL
Diagnose Heart Failure:
Age <50 yr: >450 pg/mL
50-75 yr: >900 pg/mL
>75 yr: >1800 pg/mL
GFR is 30-59 mL/min: >1200 pg/mL or Age- adjusted values
GFR <30 mL/min: do not use, not reliable

Prognostic threshold: 1000 pg/mL Observation Date Value Abnormality Reference (Units ) Status BNP, Pro-hormone 07/05/2023 14:12:54 1839 Above high no rmal <300 (pg/mL) Final Performing Location LAB[facility]ATORY [facility] - [facility] [address] [place] [address]
--- OUTSIDE RECORDS SUMMARY | 2023-07-13 02:55 | External Medical Summary | Summary of Care ---
Author Name Unknown Organization [facility] Address [address] [facility] [place] [address] Phone [phone] Care Team Providers Care Quartz Miner Name Role Phone YifansaurabhBenny DO Primary Care Provider [phone] Reason for Visit * Reason Onset Date Comments Test Results 07/06/2023 Unexpected or In determinate Result Encounter Details Date Type Department Care Team (Late st Contact Info) Description 07/06/2023 Telephone Cardiology Yehuda Rodríguez [address] [place] [address] Aleksandra Berger PA-C [address] [place] [address] Test Results (Unexpected or [...] Oral Tablet Extended Release 24 Hour (toPROL XL)Indications:Continuous Loft Operator gunjan atrial fibrillation (HCC),CHF (congestive heart failure), NYHA class I, chronic, diastolic (HCC) TAKE ONE-HALF TABLET BY MOUTH IN THE MORNING 45 Tablet 3 02/22/2023 02/22/2024 Active Neomycin-Polymyxin- HC 3.5-53306-2 Otic SolutionIndications :Other infective acute otitis externa [...] CHF (congestive heart failure) 11/16/2022 Atherosclerosis of galena co 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 pectoris 08/11/2022 Severe tricuspid regurgitation 08/11/2022 Gout, arthropathy 07/20/2022 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 02/05/2022 Permanent atrial fibrillation 12/22/2021 Overview: Added automatically from request for surgery [id number] Current moderate episode of major depressive disorder [...] mRNA, LNP-s, No Pre serve, 2-Dose Series ([employer]) 05/14/2021 COVID-19, LNP-s, No Preserve , Robbie-sucrose, Ages 12+ (Pfizer) 11/04/2021 COVID-19, MRNA-LNP, 23-24, P F, 30 MCG/0.3 mL, 12 YRS AND ABOVE, IM ([facility]) 04/16/2023 Covid-19, Mrna, Lnp-s, Pf, B ivalent, 30 Mcg, IM, 12 yrs and above ([employer]) 03/17/2022 Pneumococcal Conjugate Vacc, 13 Valent (Prevnar) [...] Telephone Encounter - Aleksandra Berger PA-C - 07/06/2023 7:38 AM EST Noted, chest x-ray reviewed. Will call patient today to discuss results. * Telephone Encounter - Vijaya Buckley OSA - 07/06/2023 4:42 AM EST Hello- The radiologist discovered an unexpected or indeterminate finding on Nikolas Silvestre ([id number]) and asks that you review the following report. Study Type:XR CHEST 2 VIEWS Date of Study: IMPRESSION IMPRESSION Increasing superior mediastinal density, with underlying mass or adenopathy not excluded. RecommendCT thorax for further evaluation. Please respond to this encounter to acknowledge receipt of this message and take responsibility to ensure this report is reviewed. Thank you, DEX Murillo Client Service [facility] documented in this encounter Plan of Treatment Upcoming Encounters Date Type Department Care Team (Late st Contact Info) Description 07/07/2023 9:30 AM EST Telemedicine Interventional Pain Center, [facility] 132 [facility] [place] [address] Luann Mcgrath PA-C 132 [facility] [place] [address] 08/25/2023 9:40 AM EDT Office Visit Family Practice 65 [facility] 293 [place] [address] Benny Waite, 293 [place] [address] 12/21/2023 11:00 AM EDT Nurse Only Ancillary 65 [facility] 293 [place] [address] College, Nurse Annual Wellness Visit [address] [place] [address] 01/05/2024 7:15 AM EDT Cardiac Studies Cardiac Studies, [facility] [address] 01/05/2024 8:30 AM EDT Office Visit Cardiology, [facility] [address] Franco Mcgregor MD [address] [place] [address] Health Maintenance Due Date Last Done Comments Hepatitis B (1 of 3 - Risk 3-dose series) 1998 Depression Screening 06/16/2024 06/16/2023 DTaP,Tdap,and Td Vaccines (2 - Td or Tdap) 04/20/2028 04/20/2018 Pneumococcal Vaccine: 65+ Years Completed 05/02/2019, 04/20/2018 Zoster Vaccines Completed 12/13/2019, 0208/2019, 04/18/2015 Influenza Vaccine (FLU shot) Completed 01/2023, 03/12/2022, 03/13/2021, Additional history exists COVID-19 Vaccine Completed 04/16/2023, 09/2021, 11/04/2021, Additional history exists GARDASIL-HPV IMMUNIZATION SERIES Aged Out No longer eligible based on patient's age to complete this topic MENINGOCOCCAL (MENACTRA/MENVEO) Aged Out No longer eligible based on patient's age to complete this topic documented as of this encounter Medical Devices Implanted Type Area Stabilizing Machine Operator Device Identifier Shelf Expiration Date Model / Serial / Lot Device Watchman Flx 35mm - [id number] Implanted:Qty: 1 on 02/05/2022 by Diamond Teran IV, MD [place] [facility] [employer] : INTRV CARD [id number] 10/20/2024 [id number] 50 / / [id number] Cath Thermodilution 6fr - [id number] Implanted:Qty: 1 on 07/31/2022 by Franco Mcgregor MD at [facility] [employer] [id number] 04/30/2024 [id number] / / [id number] Clip Delivery Sytem G4 Xtw - [id number] Implanted:Qty: 1 on 11/16/2022 at [facility] [employer] [id number] 09/10/2023 [id number] / / [id number] documented as of this encounter Advance [...] and were consensually agreed upon. Care Teams Quartz Miner Relationship Specialty Start Date End Date Benny Waite DO [address] [facility] [place] [address] PCP - General Internal Medicine 04/03/21 documented as of this encounter
--- OUTSIDE RECORDS SUMMARY | 2023-07-13 02:55 | External Medical Summary | Summary of Care ---
Author Name Unknown Organization [facility] Address [address] [facility] [place] [address] Phone [phone] Care Team Providers Care Scrap Worker Name Role Phone YifansaurabhBenny DO Primary Care Provider [phone] Reason for Visit * Reason Comments Follow Up Bp check Encounter Details Date Type Department Care Team (Late st Contact Info) Description 06/17/2023 3:30 PM EST Nurse Only Family Practice 65 [facility] [address] [place] [address] College, Nurse [facility] Prac [address] [address] Follow Up (Bp check ) Allergies Active Allergy Reactions Criticality Noted Date Comments Adhesive Tape 02/04/2017 Levofloxacin 09/01/2019 documented as of this encounter (statuses as of 06/20/2023) Medications Medication Sig Dispensed Refills Start Date [...] Oral Tablet Extended Release 24 Hour (toPROL XL)Indications:Events Intern gunjan atrial fibrillation (HCC),CHF (congestive heart failure), NYHA class I, chronic, diastolic (HCC) TAKE ONE-HALF TABLET BY MOUTH IN THE MORNING 45 Tablet 3 02/22/2023 02/22/2024 Active Neomycin-Polymyxin- HC 3.5-72675-9 Otic SolutionIndications :Other infective acute otitis externa [...] EVERY MORNING 100 Tablet 2 05/25/2023 Active documented as of this encounter (statuses as of 06/20/2023) Active Problems Problem Noted Date Diagnosed Date Sacroiliitis, not elsewhere classified 4 S/P MVR (mitral valve repair) 11/16/2022 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) 11/16/2022 Atherosclerosis of [place] 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 pectoris 08/11/2022 Severe tricuspid regurgitation 08/11/2022 Gout, arthropathy 07/20/2022 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 02/05/2022 Permanent atrial fibrillation 12/22/2021 Overview: Added automatically from request for surgery [id number] Current moderate episode of major depressive disorder [...] as of this encounter (statuses as of 06/20/2023) Resolved Problems Problem Noted Date Diagnosed Date Resolved Date Severe obesity with body mas s index (BMI) of 35.0 to 39.9 with serious comorbidity 04/24/2022 Aortic root enlargement 10/01/202001/12 Enlarged aorta 05/02/2019 08/19/2020 Senile purpura 05/02/2019 08/19/2020 Mixed connective tissue disease 05/07/2018 08/19/2020 Chronic atrial fibrillation 01/18/2018 12/11/2022 documented as of this encounter (statuses as of 06/20/2023) Immunizations Name Administration Dates Next Due COVID-19 [...] Sign Reading Time Taken Comments Blood Pressure 120/74 06/17/2023 3:43 PM EST Pulse 76 06/17/2023 3:43 PM EST Temperature - - Respiratory Rate - - Oxygen Saturation - - Inhaled Oxygen Concentration - - Weight - - Height - - Body Mass Index - - documented in this encounter Functional Status Functional [...] 9:30 AM EST Telemedicine Interventional [facility], [facility] [address] [address] [address] Luann Mcgrath PA-C [address] [address] 08/25/2023 9:40 AM EDT Office Visit Family Practice 65 [facility] [address] Benny Waite, 293 [facility], [place] [address] 12/21/2023 11:00 AM EDT Nurse Only Ancillary 65 [facility] [address] [facility] [address] [facility], Nurse Annual Wellness Visit [address] [address] 01/05/2024 7:15 AM EDT Cardiac Studies Cardiac Studies, [facility] [address] [address] [address] 01/05/2024 8:30 AM EDT Office Visit Cardiology, [facility] [address] [place] [address] Franco Mcgregor MD [address] [place] [address] Health Maintenance Due Date Last Done Comments [...] this encounter Medical Devices Implanted Type Area Liquid Sugar Melter Device Identifier Shelf Expiration Date Model / Serial / Lot Device Watchman Flx 35mm - [id number] Implanted:Qty: 1 on 02/05/2022 by Diamond Teran IV, MD at [facility] [email or web address] : INTRV CARD [id number] 10/20/2024 [id number] 50 / / [id number] Cath Thermodilution 6fr - [id number] Implanted:Qty: 1 on 07/31/2022 by Franco Mcgregor MD at [facility] [employer] [id number] 04/30/2024 [id number] / / [id number] Clip Delivery Sytem G4 Xtw - [id number] Implanted:Qty: 1 on 11/16/2022 at [facility] [employer] [id number] 09/10/2023 [id number] / / [id number] documented as of this encounter Advance [...] and were consensually agreed upon. Care Teams Scrap Worker Relationship Specialty Start Date End Date Benny Waite DO [address] [place] [address] PCP - General Internal Medicine 04/03/21 documented as of this encounter
--- OUTSIDE RECORDS SUMMARY | 2023-07-13 02:55 | External Medical Summary | Summary of Care ---
Author Name Unknown Organization [facility] Address [address] [facility] [place] [address] Phone [phone] Care Team Providers Care Policy And Planning Manager Name Role Phone Benny Waite DO Primary Care Provider [phone] Reason for Visit * Reason Onset Date Comments Advice 06/18/202306/18 Encounter Details Date Type Department Care Team (Late st Contact Info) Description 06/18/2023 Telephone Family Practice [address] [facility] [place] [address] [place] [phone] Benny Waite DO [address] [place], [place] [phone] Advice (06/18) Allergies Active Allergy Reactions Criticality Noted Date Comments Adhesive Tape 02/04/2017 Levofloxacin 09/01/2019 documented as of this encounter (statuses as of 06/18/2023) Medications Medication Sig Dispensed Refills Start Date [...] Oral Tablet Extended Release 24 Hour (toPROL XL)Indications:Rand Butter gunjan atrial fibrillation (HCC),CHF (congestive heart failure), NYHA class I, chronic, diastolic (HCC) TAKE ONE-HALF TABLET BY MOUTH IN THE MORNING 45 Tablet 3 02/22/2023 02/22/2024 Active Neomycin-Polymyxin- HC 3.5-35619-1 Otic SolutionIndications :Other infective acute otitis externa [...] before bedtime. 20 Tablet 0 06/18/2023 Active Hospital, Clinic, or Other Facility Administered Medication Ordered Dose Route Frequency Start Date End Date Status Albuterol Sulfate (Proventil) (2.5 MG/3ML) 0.083% inhalation solution 2.5 mgIndications:SOB (shortness of breath) 2.5 mg NEBULIZER PRN 12/02/2022 06/18/2023 Discontinued Albuterol Sulfate (Proventil) (5 MG/ML) 0.5% *conc* inhalation solution 2.5 mgIndications:SOB (shortness of breath) 2.5 mg NEBULIZER PRN 12/02/2022 06/18/2023 Discontinued documented as of this encounter (statuses as of 06/18/2023) Active Problems Problem Noted Date Diagnosed Date Sacroiliitis, not elsewhere classified S/P MVR (mitral valve repair) 11/16/2022 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) 11/16/2022 Atherosclerosis of [place] co 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 pectoris 08/11/2022 Severe tricuspid regurgitation 08/11/2022 Gout, arthropathy 07/20/2022 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 02/05/2022 Permanent atrial fibrillation 12/22/2021 Overview: Added automatically from request for surgery [id number] Current moderate episode of major depressive disorder [...] as of this encounter (statuses as of 06/18/2023) Resolved Problems Problem Noted Date Diagnosed Date Resolved Date Severe obesity with body mas s index (BMI) of 35.0 to 39.9 with serious comorbidity 04/24/2022 Aortic root enlargement 10/01/2020 08/09/2022 Enlarged aorta 05/02/2019 08/19/2020 Senile purpura 05/02/2019 08/19/2020 Mixed connective tissue disease 05/07/2018 08/19/2020 Chronic atrial fibrillation 01/18/2018 12/11/2022 documented as of this encounter (statuses as of 06/18/2023) Immunizations Name Administration Dates Next Due COVID-19 mRNA, LNP-s, No Pre serve, 2-Dose Series (Moderna) 08/20/2020,07/17/2020 COVID-19 mRNA, LNP-s, No Pre serve, 2-Dose Series ([facility]) 05/14/2021 COVID-19, LNP-s, No Preserve , Robbie-sucrose, Ages 12+ (Pfizer) 11/04/2021 COVID-19, MRNA-LNP, 23-24, P F, 30 MCG/0.3 mL, 12 YRS AND ABOVE, IM ([employer]) 04/16/2023 Covid-19, Mrna, Lnp-s, Pf, B ivalent, 30 Mcg, IM, 12 yrs and above ([facility]) 03/17/2022 Pneumococcal Conjugate Vacc, 13 Valent (Prevnar) [...] Miscellaneous Notes * Telephone Encounter - Marnie Baker LPN - 06/18/2023 2:33 PM EST Patient is aware and will comply. * Telephone Encounter - Macy West OSA - 06/18/2023 2:24 PM EST Pt returning Angie call. States he will be inside for a little bit. Please call him back. * Telephone Encounter - Marnie Baker, AMBER - 06/18/2023 1:25 PM EST Called, left message for patient to return call. Please confirm pharmacy. Thank you * Telephone Encounter - Benny Waite DO - 06/18/2023 1:18 PM EST Tart Buspar 5 mg two times a day * Telephone Encounter - BakerMarnie mabryAMBER - 06/18/2023 10:48 AM EST States the meclizine is helping the dizziness some. No headache. Bp goes up at night states 131/105 pulse 90. Took medication at 0800. Did not sleep well. * Telephone Encounter - Macy Carbajal OSA - 06/18/2023 8:08 AM EST Wants to speak to marnie Wouldn't tell me about what. I also spoke to [place].. whom he says keeps calling him changing his appt. The front office secretary said that she is not calling him, his Appt is Wednesday at 9:30 So I called and told him to disregard any calls that may come from anyone changing his therapy appt documented in this encounter Plan of Treatment Upcoming Encounters Date Type Department Care Team (Late st Contact Info) Description 07/07/2023 9:30 AM EST Telemedicine Interventional Pain Center, [facility] [address] [address] Luann Mcgrath PA-C [address] [place] [address] 08/25/2023 9:40 AM EDT Office Visit Family Practice 65 [facility] [address] [place] [phone] Benny Waite, [address] [place] [address] 12/21/2023 11:00 AM EDT Nurse Only Ancillary 65 [facility] [address] [place] [address] College, Nurse Annual Wellness Visit [address] [address] 01/05/2024 7:15 AM EDT Cardiac Studies Cardiac Studies, [facility] [address] [place] [address] 01/05/2024 8:30 AM EDT Office Visit Cardiology, [facility] [address] [place] [address] Franco Mcgregor MD [address] [place] [address] Health Maintenance Due Date Last Done Comments [...] this encounter Medical Devices Implanted Type Area Academic Dean Device Identifier Shelf Expiration Date Model / Serial / Lot Device Watchman Flx 35mm - [id number] Implanted:Qty: 1 on 02/05/2022 by Diamond Teran IV, MD at [facility] [employer] : INTRV CARD [id number] 10/20/2024 [id number] 50 / / [id number] Cath Thermodilution 6fr - [id number] Implanted:Qty: 1 on 07/31/2022 by Franco Mcgregor MD at [facility] [employer] [id number] 04/30/2024 [id number] / / [id number] Clip Delivery Sytem G4 Xtw - [id number] Implanted:Qty: 1 on 11/16/2022 at [facility] [employer] [id number] 09/10/2023 [id number] / / [id number] documented as of this encounter Visit Diagnoses Diagnosis Anxiety- Primary Anxiety state, unspecified documented in this encounter Advance Directives Latest Code Status on File Code Status Date Activated Date Inactivated Comments Full Code 11/16/2022 4:24 PM 11/17/2022 8:54 PM This or naatlia reflects the patients wishes and were consensually [...] and were consensually agreed upon. Care Teams Policy And Planning Manager Relationship Specialty Start Date End Date Benny Waite DO [address] [facility] [place] [address] PCP - General Internal Medicine 10/21/21 documented as of this encounter
--- OUTSIDE RECORDS SUMMARY | 2023-07-13 02:55 | External Medical Summary | Summary of Care ---
Author Name Unknown Organization [facility] Address [address] [facility] [place] [address] Phone [phone] Care Team Providers Care Shovel Logger Name Role Phone YifansaurabhBenny DO Primary Care Provider [phone] Reason for Visit * Reason Comments Acute Encounter Details Date Type Department Care Team (Late st Contact Info) Description 07/05/2023 2:00 PM EST Office Visit Cardiology, [facility] [address] [facility] [place] [id number] Aleksandra Berger PA-C [address] [place] [id number] CHESTER (dyspnea on exertion)*; Chronic heart failure with preserved ejection fraction (HCC); Permanent atrial fibrillation (HCC); Nonrheumatic mitral valve regurgitation; S/P mitral valve clip implantation Allergies Active [...] Oral Tablet Extended Release 24 Hour (toPROL XL)Indications:Lead Sharepoint Developer gunjan atrial fibrillation (HCC),CHF (congestive heart failure), NYHA class I, chronic, diastolic (HCC) TAKE ONE-HALF TABLET BY MOUTH IN THE MORNING 45 Tablet 3 02/22/2023 02/22/2024 Active Neomycin-Polymyxin- HC 3.5-05800-8 Otic SolutionIndications :Other infective acute otitis externa [...] CHF (congestive heart failure) 11/16/2022 Atherosclerosis of [place] 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 pectoris 08/11/2022 Severe tricuspid regurgitation 08/11/2022 Gout, arthropathy 07/20/2022 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 02/05/2022 Permanent atrial fibrillation 12/22/2021 Overview: Added automatically from request for surgery [id number] Current moderate episode of major depressive disorder [...] mRNA, LNP-s, No Pre serve, 2-Dose Series ([employer]) 05/14/2021 COVID-19, LNP-s, No Preserve , Robbie-sucrose, Ages 12+ (Pfizer) 11/04/2021 COVID-19, MRNA-LNP, 23-24, P F, 30 MCG/0.3 mL, 12 YRS AND ABOVE, IM ([facility]) 04/16/2023 Covid-19, Mrna, Lnp-s, Pf, B [...] Sign Reading Time Taken Comments Blood Pressure 116/82 07/05/2023 1:28 PM EST Pulse 68 07/05/2023 1:28 PM EST Temperature - - Respiratory Rate 34 07/05/2023 1:28 PM EST Oxygen Saturation 94% 07/05/2023 1:28 PM EST Inhaled Oxygen Concentration - - Weight 101.2 kg (223 lb) 07/05/2023 1:28 PM EST Height - - Body Mass Index [...] as of this encounter Progress Notes * Aleksandra Berger PA-C - 07/05/2023 12:50 PM EST 07/05/2023 Cardiology Follow Up Primary Supervisor Publications: Dr. Barraza Past medical history: Permanent atrial fibrillation [id number] score of 3 (age 1, CHF) S/p [...] Plaquenil Hx of GERD and gastritis Vertigo HPI: Nikolas Silvestre is a 82 year old male who presents for acute visit. States for past 3 days he has developed shortness of breath with exertion. First noticed it when hewas walking out to feed the birds. Some chest tightness at times, mainly when bending over and standing up. Denies cough, congestion, fever. Has chronic dizziness, feels this is unchanged since valvesurgery. Recently started on buspirone. Otherwise no medication changes, compliant. Denies edema, weight gain. Normal appetite. Drinks 2-3 glasses of water a day. States he has not felt well for quite some time, thought valve surgery would help but it did not. However, feels significantly worse over past few days. Is under stress at home, caring for with dementia. REVIEW OF SYSTEMS: See HPI for pertinent positives. All others negative other than those noted in the HPI. CONSTITUTIONAL: No change in weight, No weakness, No fatigue and No fevers, No sweats or chills. PULMONARY: No cough, sputum, or hemoptysis, No wheezing, No shortness of breath and No recent change in breathing. CARDIOVASCULAR: No chest pain, + dyspnea on exertion, No edema, No palpitations and No syncope. GASTROINTESTINAL: No abdominal pain, No change in bowel habits, No significant heartburn, No nausea, No vomiting, No diarrhea, No constipation, No blood in stools or black tarry stools. No dysphagia. HEMATOLOGIC: No abnormal bleeding and No bruising. NEUROLOGICAL: Normal balance, No headaches and No weakness. Review of patient's allergies indicates: Allergen Reactions Adhesive Tape Levaquin [Levofloxacin] Current Outpatient Medications Medication Sig Dispense Refill [...] MOUTH IN THE MORNING 45 Tablet 3 Xqoqqgfi-Xaiszaxah-XL 3.5-70813-4 Otic Solution Administer 4 Drops into the [...] No current facility-administered medications for this visit. Past Medical History: Diagnosis Date Aortic root enlargement (HCC) 10/01/2020 BPH with obstruction/lower urinary tract symptoms CHF (congestive heart failure), NYHA class I, chronic, diastolic ([facility]) 05/02/2019 Chronic atrial fibrillation ([facility]) 01/18/2018 Current 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 ([facility]) 07/09/2021 DDD (degenerative disc disease), lumbar Depression Gout, arthropathy 07/20/2022 Nonrheumatic mitral valve regurgitation 04/03/2021 Renal calculus Severe obesity with body mass index (BMI) of 35.0 to 39.9 with serious comorbidity ([facility]) 04/24/2022 Sleep apnea, obstructive Family History Problem Relation Age of Onset Other (Natural causes) Mother Stroke Mother Migraines Father Heart attack Father 55 No Known Problems Sister No Known Problems Sister Cancer Sister "female cancer" No Known Problems Brother Cancer None ne head or neck cancer Other (sleep apnea) Son Social History Socioeconomic History Marital status: Tobacco Use Smoking status: Never Passive exposure: Never Smokeless tobacco: Never Vaping Use Vaping Use: Never used Substance and Sexual Activity Alcohol use: Not Currently Drug use: No Social Determinants of Health Food Insecurity: No Food Insecurity (06/16/2023) Hunger Vital Sign Worried About Running Out of Food in the Last Year: Never true Ran Out of Food in the Last Year: Never true OBJECTIVE/PHYSICAL EXAMINATION: BP 116/82 (BP Site: Left Arm, BP Position: Sitting, BP Cuff Size: Large) | Pulse 68 | Resp 34 | Wt 101.2 kg (223 lb) | SpO2 94% | BMI 34.67 kg/m | BSA 2.19 m General: No acute distress. A+Ox3. HEENT: Normocephalic. Atraumatic. PERRL. EOMI. Conjunctiva and sclera clear. NECK: No carotid bruits. No JVD. Carotid upstrokes are brisk. Heart: Irregular. S1 and S2 noted. No murmur. No rubs or gallops. PMI non displaced. Lungs: Rhonchi throughout. Abdomen: Normal bowel sounds. Soft. Nontender. No masses or organomegaly. No abdominal bruits. Extremities: No edema. No clubbing or cyanosis. 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 Pulses: radial=2/4, posterior tibial=2/4, dorsalis pedis = 2/4. NEURO: No focal deficits. PSYCH: Appropriate affect and insight. DATA Labs & Imaging Reviewed Below: Echo 01/05/23 The rhythm during the transthoracic echo examination was atrial fibrillation with controlled ventricular response. Calculated LV ejection Fraction = 55% (bi-plane method of discs). The left atrium is severely enlarged (>48 ml/m^2,). SP transcutaneous mitral iugv-wt-sdog repair with two MitraClip XTW devices. The average mitral mean gradient at a heart rate of 67 bpm is 2.7 mmHg. Trivial mitral regurgitation. Mild tricuspid regurgitation is present. The estimated pulmonary artery systolic pressure is 38mm Hg. Compared to last available study changes are noted as follows: Left ventricular systolic function has improved. Cardiac Cath 07/31/22 The coronary arteries have mild non-obstructive disease with minor luminal irregularities. ASSESSMENT/PLAN: 82 year old male 1. CHESTER (dyspnea on exertion) 2. Chronic heart failure with preserved ejection fraction (HCC) 3. Permanent atrial fibrillation (HCC) 4. Nonrheumatic mitral valve regurgitation 5. S/P mitral valve clip implantation - Presents today with worsening dyspnea on exertion, started acutely 3 days ago, denies chest pain,palpitations - blood pressure and heart rate controlled - no edema, weight stable from last visit, up from May - cath and echo within past year reviewed - due to rhonchi on exam, acute change, respiratory panel ordered and chest x- ray to evaluate for pneumonia - labs ordered - if workup unremarkable, will consider ischemic workup vs trial of diuretic - instructed if shortness of breath worsens, develops new symptoms to go to ED DISPOSITION: Follow up pending results All questions were answered to the patients satisfaction. Patient advised to report to ED with any and all emergencies. The patient agrees to the above plan and will call with additional questions or concerns. Aleksandra Berger PA-C Cardiology, [address] [place] [address] I spent a total of 40 minutes on the date of service in preparation, delivery, and documentation ofthe care provided to Nikolas Silvestre excluding any time spent in the performance of separately billed services. This chart was completed in part utilizing [employer] Speech Voice Recognition Software. Grammatical errors, random word insertions, pronoun errors, and incomplete sentences are an occasional consequence of this system due to software limitations, ambient noise, and hardware issues. Any formal questions or concerns about the content, text, or information contained within the body of this dictation should be directly addressed to the provider for clarification. documented in this encounter Nursing Notes * Jena Zapata CMA - 07/05/2023 1:48 PM EST Examination Room: 7 Name: Nikolas Silvestre Date of : (1940). Reason for Visit: f/u per PCP Interim Hospitalization(s): none Problems/Concerns: dizziness/off balance, denies falls or syncope Chest Pain/SOB: Denies CP. SOB [facility] Discussed: No [facility] is a way you can talk to your provider online through e-mail. Would you like to sign up? I can activate it for you? DECLINES Patient was instructed to not get up on the exam table until directed and assisted by their provider; patient is to remain seated in the chair/ wheelchair/ exam table for fall prevention and safety reasons. Patient is aware to have assistance to step down off exam table with personnel. Patient voiced full comprehension of instructions. documented in this encounter Plan of Treatment Upcoming Encounters Date Type Department Care Team (Late st Contact Info) Description 07/07/2023 9:30 AM EST Telemedicine Interventional Pain Center, [facility] [address] [facility] [place] [address] Luann Mcgrath PA-C 132 [facility] [place] [address] 08/25/2023 9:40 AM EDT Office Visit Family Practice [address] [phone] Benny Waite, [address] [place] [address] 12/21/2023 11:00 AM EDT Nurse Only Ancillary [address] [address] [place], Nurse Annual Wellness Visit [address] [address] 01/05/2024 7:15 AM EDT Cardiac Studies Cardiac Studies, [facility] [address] [facility] [place] [address] 01/05/2024 8:30 AM EDT Office Visit Cardiology, [facility] [address] [facility] [place] [address] Franco Mcgregor MD [address] [place] [address] Pending Results Name Type Priority Associated Diagnoses Date /Time XR CHEST 2 VIEWS Medical Imaging Routine CHESTER (dyspnea on exertion) 07/05/2023 2:43 PM EST BNP, NT-PRO Lab Routine [place]STER (dyspnea on exertion) 07/05/2023 2:12 PM EST Scheduled Orders Name Type Priority Associated Diagnoses Orde r Schedule RESPIRATORY PATHOGEN PANEL, PCR Lab Routine [place]STER (dyspnea on exertion) Expected: 07/05/2023, Expires: 07/05/2024 BNP, NT-PRO Lab Routine [place]STER (dyspnea on exertion) Expected: 07/05/2023, Expires: 07/05/2024 Health Maintenance Due Date Last Done Comments [...] this encounter Medical Devices Implanted Type Area Retail Business Development Manager Device Identifier Shelf Expiration Date Model / Serial / Lot Device Watchman Flx 35mm - [id number] Implanted:Qty: 1 on 02/05/2022 by Diamond Teran IV, MD at [facility] [employer] : INTRV CARD [id number] 10/20/2024 [id number] / / [id number] Cath Thermodilution 6fr - [id number] Implanted:Qty: 1 on 07/31/2022 by Franco Mcgregor MD at [facility] [employer] [id number] 04/30/2024 [id number] / / [id number] Clip Delivery Sytem G4 Xtw - [id number] Implanted:Qty: 1 on 11/16/2022 at [facility] [employer] [id number] 09/10/2023 [id number] / / [id number] documented as of this encounter Results * (ABNORMAL) COMPREHENSIVE METABOLIC PANEL (07/05/2023 2:12 PM EST) BUN 27(H) 6 - 20 mg/dL 07/05/2023 3:23 PM EST [facility] [place] [facility] [facility] Creatinine 1.0 0.6 - 1.2 mg/dL 07/05/2023 3:23 PM EST [facility] [place] [facility] Estimated Glomerular Filtration Rate 72 >=60 mL/min 07/05/2023 3:23 PM EST [facility] [place] [facility] Comment:eGFR is calculated b ased on the CKD-EPI 2020 equation Sodium 143 135 - 146 mmol/L 07/05/2023 3:23 PM EST [facility] [place] [facility] Potassium 4.5 3.5 - 5.1 mmol/L 07/05/2023 3:23 PM EST [facility] Chloride 107 98 - 107 mmol/L 07/05/2023 3:23 PM EST [facility] CO2 26 22 - 32 mmol/L 07/05/2023 3:23 PM EST [facility] [place] [facility] Anion Gap 10 7 - 15 mmol/L 07/05/2023 3:23 PM EST [facility] [place] [facility] Glucose 69(L) 70 - 120 mg/dL 07/05/2023 3:23 PM EST [facility] [place] [facility] Albumin 4.2 3.8 - 5.0 g/dL 07/05/2023 3:23 PM EST [facility] [place] [facility] AST 34 10 - 50 U/L 07/05/2023 3:23 PM EST [facility] Comment:Result may be falsel y elevated due to hemolysis. Alkaline Phosphatase 68 35 - 130 U/L 07/05/2023 3:23 PM EST [facility] Bilirubin, Total 0.5 <=1.2 mg/dL 07/05/2023 3:23 PM EST [facility] Calcium 9.4 8.4 - 10.2 mg/dL 07/05/2023 3:23 PM EST [facility] Protein 6.8 6.0 - 8.3 g/dL 07/05/2023 3:23 PM EST [facility] ALT 26 10 - 50 U/L 07/05/2023 3:23 PM EST [facility] Blood Venous blood specimen / Unknown Venipuncture / Unknown 07/05/2023 2:12 PM EST 07/05/2023 2:12 PM EST Aleksandra Berger PA-C LAB BLOOD ORDER [facility] [address] [place] [address] documented in this encounter Visit Diagnoses Diagnosis CHESTER (dyspnea on exertion)- Primary Other dyspnea and respiratory abnormality Chronic heart failure with preserved ejection fraction (HCC) Permanent atrial fibrillation (HCC) Atrial fibrillation Nonrheumatic mitral valve regurgitation S/P mitral valve clip implantation documented in [...] and were consensually agreed upon. Care Teams Shovel Logger Relationship Specialty Start Date End Date Benny Waite DO 293 [place] [address] PCP - General Internal Medicine 04/03/21 documented as of this encounter
--- OUTSIDE RECORDS SUMMARY | 2023-07-13 02:55 | External Medical Summary | Summary of Care ---
Author Name Unknown Organization [facility] Address [address] [facility] [place] [address] Phone [phone] Care Team Providers Care Windows Migration Technician Name Role Phone Benny Waite DO Primary Care Provider [phone] Reason for Visit * Reason Onset Date Comments Advice 07/05/2023 Encounter Details Date Type Department Care Team (Late st Contact Info) Description 07/05/2023 Telephone Family Practice 65 [facility] [place] [address] [place] [phone] Benny Waite [address] [place], [place] [phone] Advice Allergies Active Allergy Reactions Criticality Noted [...] Oral Tablet Extended Release 24 Hour (toPROL XL)Indications:Sales/Marketing gunjan atrial fibrillation (HCC),CHF (congestive heart failure), NYHA class I, chronic, diastolic (HCC) TAKE ONE-HALF TABLET BY MOUTH IN THE MORNING 45 Tablet 3 02/22/2023 02/22/2024 Active Neomycin-Polymyxin- HC 3.5-63217-8 Otic SolutionIndications :Other infective acute otitis externa [...] CHF (congestive heart failure) 11/16/2022 Atherosclerosis of [place] co 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 pectoris 08/11/2022 Severe tricuspid regurgitation 08/11/2022 Gout, arthropathy 07/20/2022 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 02/05/2022 Permanent atrial fibrillation 12/22/2021 Overview: Added automatically from request for surgery [id number] Current moderate episode of major depressive disorder [...] mRNA, LNP-s, No Pre serve, 2-Dose Series ([employer]) 05/14/2021 COVID-19, LNP-s, No Preserve , Robbie-sucrose, Ages 12+ (Pfizer) 11/04/2021 COVID-19, MRNA-LNP, 23-24, P F, 30 MCG/0.3 mL, 12 YRS AND ABOVE, IM ([facility] 04/16/2023 Covid-19, Mrna, Lnp-s, Pf, B ivalent, 30 Mcg, IM, 12 yrs and above ([employer]) 03/17/2022 Pneumococcal Conjugate Vacc, 13 Valent (Prevnar) [...] Telephone Encounter - Marnie Bobo RN - 07/05/2023 9:56 AM EST Pt has appt today at 2:00 PM with cardiology * Telephone Encounter - Marnie Bobo RN - 07/05/2023 9:02 AM EST Spoke with pt-states his breathing is not any better-walked about 100 ft to his bird feeder and hada hard time getting back to the house d/t his breathing/sob. Minimal cough. Had pt do his pulse ox-92%, HR 33-had him try another finger-79%, HR 40. Not sure if fingers are cold. States he went to one session of PT for his dizziness-not sure if its going to help. Also his back continues to hurt-takes 4 tylenol/day and his gabapentin-not helping. Pt has appt with pain management 07/07/23. Told I would talk with Dr Waite and let him know his recommendations Dr Waite recommends trying to get appt with cardiology today-if they can't get him in he will see him here at [address]. Call to cardiology-spoke with Kyle-said he would see if they could get him in, if not he will let us know so we can bring him in. Tried to call pt-no answer-went to busy signal. documented in this encounter Plan of Treatment Upcoming Encounters Date Type Department Care Team (Late st Contact Info) Description 07/05/2023 2:00 PM EST Office Visit Cardiology, [facility] 132 [facility] [place] [address] Aleksandra Berger PA-C [address] [place] [address] [place] [phone] 07/07/2023 9:30 AM EST Telemedicine Interventional Pain Center, [facility] [address] [place] [address] Luann Mcgrath PA-C 132 [facility] [place] [address] 08/25/2023 9:40 AM EDT Office Visit Family Practice 65 [facility] 293 [facility] [place] [phone] Benny Waite DO 293 [place] [address] 12/21/2023 11:00 AM EDT Nurse Only Ancillary 65 [facility] 293 [facility] [place] [address] [place], Nurse Annual Wellness Visit [address] [place] [address], [place] [address] 01/05/2024 7:15 AM EDT Cardiac Studies Cardiac Studies, [facility] 132 [facility] [place] [address] 01/05/2024 8:30 AM EDT Office Visit Cardiology, [facility] 132 [facility] [place] [address] Franco Mcgregor MD [address] [place] [address] Health Maintenance Due Date Last Done Comments [...] this encounter Medical Devices Implanted Type Area End Finder Forming Department Device Identifier Shelf Expiration Date Model / Serial / Lot Device Watchman Flx 35mm - [id number] Implanted:Qty: 1 on 02/05/2022 by Diamond Teran IV, MD at [facility] : INTRV CARD [id number] 10/20/2024 [id number] / / [id number] Cath Thermodilution 6fr - [id number] Implanted:Qty: 1 on 07/31/2022 by Franco Mcgregor MD at [facility] [employer] [id number] 04/30/2024 [id number] / / [id number] Clip Delivery Sytem G4 Xtw - [id number] Implanted:Qty: 1 on 11/16/2022 at [facility] [employer] [id number] 09/10/2023 [id number] / / [id number] documented as of this encounter Advance [...] and were consensually agreed upon. Care Teams Windows Migration Technician Relationship Specialty Start Date End Date Benny Waite DO [address] [facility] [address] PCP - General Internal Medicine 04/03/21 documented as of this encounter
--- OUTSIDE RECORDS SUMMARY | 2023-07-13 02:55 | External Medical Summary | Summary of Care ---
Author Name Unknown Organization [facility] Address [address] [facility] [place] [address] Phone [phone] Care Team Providers Care Boat Person Name Role Phone Benny Waite DO Primary Care Provider [phone] Reason for Visit * Reason Onset Date Comments FYI 06/02/2023 bills Encounter Details Date Type Department Care Team (Late st Contact Info) Description 06/02/2023 Telephone Family Practice 65 [facility], [place] [address] [place] [id number] Benny Waite DO 293 [place] [address] FYI (bills) Allergies Active Allergy Reactions Criticality Noted Date Comments Adhesive Tape 02/04/2017 Levofloxacin 09/01/2019 documented as of this encounter (statuses as of 06/22/2023) Medications Medication Sig Dispensed Refills Start Date [...] Oral Tablet Extended Release 24 Hour (toPROL XL)Indications:Vault Maker gunjan atrial fibrillation (HCC),CHF (congestive heart failure), NYHA class I, chronic, diastolic (HCC) TAKE ONE-HALF TABLET BY MOUTH IN THE MORNING 45 Tablet 3 02/22/2023 02/22/2024 Active Neomycin-Polymyxin- HC 3.5-61855-7 Otic SolutionIndications :Other infective acute otitis externa [...] as of this encounter (statuses as of 06/22/2023) Active Problems Problem Noted Date Diagnosed Date Sacroiliitis, not elsewhere classified 4 S/P MVR (mitral valve repair) 11/16/2022 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) 11/16/2022 Atherosclerosis of [place] co 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 pectoris 08/11/2022 Severe tricuspid regurgitation 08/11/2022 Gout, arthropathy 07/20/2022 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 02/05/2022 Permanent atrial fibrillation 12/22/2021 Overview: Added automatically from request for surgery [id number] Current moderate episode of major depressive disorder [...] as of this encounter (statuses as of 06/22/2023) Resolved Problems Problem Noted Date Diagnosed Date Resolved Date Severe obesity with body mas s index (BMI) of 35.0 to 39.9 with serious comorbidity 04/24/2022 Aortic root enlargement 10/01/202001/12 Enlarged aorta 05/02/2019 08/19/2020 Senile purpura 05/02/2019 08/19/2020 Mixed connective tissue disease 05/07/2018 08/19/2020 Chronic atrial fibrillation 01/18/2018 12/11/2022 documented as of this encounter (statuses as of 06/22/2023) Immunizations Name Administration Dates Next Due COVID-19 [...] Telephone Encounter - Macy Carbajal OSA - 06/02/2023 9:26 AM EST Is questioning his bills Wants to speak to someone about his bills Was told by two separate people that we had someone here at 65 that could help him with his bills. Is receiving bills from all over and wants an explanation Very upset we did not have anyone here tired of getting the run around. Please advise documented in this encounter Plan of Treatment Upcoming Encounters Date Type Department Care Team (Late st Contact Info) Description 07/07/2023 9:30 AM EST Telemedicine Interventional Pain Center, [facility] [address] [address] Luann Mcgrath PA-C [address] [place] [address] 08/25/2023 9:40 AM EDT Office Visit Family Practice 65 [facility] [phone] Benny [facility], DO [facility] [address] 12/21/2023 11:00 AM EDT Nurse Only Ancillary 65 [facility] [address] College, Nurse Annual Wellness Visit [address] [facility] [address] [facility] [address] 01/05/2024 7:15 AM EDT Cardiac Studies Cardiac Studies, [facility] 132 [facility] [place] [address] 01/05/2024 8:30 AM EDT Office Visit [facility], [facility] [address] Franco Mcgregor MD [address] [place] [address] Health Maintenance Due Date Last [...] this encounter Medical Devices Implanted Type Area Basting Puller Device Identifier Shelf Expiration Date Model / Serial / Lot Device Watchman Flx 35mm - [id number] Implanted:Qty: 1 on 02/05/2022 by Diamond Teran IV, MD at [facility] [employer] : INTRV CARD [id number] 10/20/2024 [id number] 50 / / [id number] Cath Thermodilution 6fr - [id number] Implanted:Qty: 1 on 07/31/2022 by Franco Mcgregor MD at [facility] [employer] [id number] 04/30/2024 [id number] / / [id number] Clip Delivery Sytem G4 Xtw - [id number] Implanted:Qty: 1 on 11/16/2022 at [facility] [employer] [id number] 09/10/2023 [id number] / / [id number] documented as of this encounter Advance [...] and were consensually agreed upon. Care Teams Boat Person Relationship Specialty Start Date End Date Benny Waite DO [address] [place] [address] PCP - General Internal Medicine 04/03/21 documented as of this encounter
--- OUTSIDE RECORDS SUMMARY | 2023-07-13 02:55 | External Medical Summary ---
Author Name Unknown Address Unknown Organization [facility] [address] [place] [address] Laboratory Report Ordering Provider Test Date Status JASEN GAMA 07/05/2023 14:12:54 Final Observation Date Value Abnormality Reference (Units ) Status SYNC LEUKOCYTES IN BLOOD BY AUTOMATED COUNT 07/05/2023 14:12:54 7.71 4.00-10.80 (K/uL) Final Segs 07/05/2023 14:12:54 68.5 40.0-75.0 (%) Final Lymphs % 07/05/2023 14:12:54 18.0 18.0-42.0 (%) Final Monos 07/05/2023 14:12:54 10.9 1.0-11.0 (%) Final Eosinophils 07/05/2023 14:12:54 2.1 0.0-6.0 (%) Final Basos 07/05/2023 14:12:54 0.5 0.0-2.0 (%) Final Absolute Segs 07/05/2023 14:12:54 5.28 1.80-7.70 (K/uL) Final Lymphs, absolute 07/05/2023 14:12:54 1.39 1.00-4.80 (K/ul) Final Monos, Abs 07/05/2023 14:12:54 0.84 0.00-1.10 (K/uL) Final Eos, Abs 07/05/2023 14:12:54 0.16 0.00-0.70 (K/uL) Final Basos, Abs 07/05/2023 14:12:54 0.04 0.00-0.20 (K/uL) Final Performing Location [facility] [address] [place] [address]
--- OUTSIDE RECORDS SUMMARY | 2023-07-13 02:55 | External Medical Summary | Summary of Care ---
Author Name Unknown Organization [facility] Address [address] [facility] [address] Phone [phone] Care Team Providers Care Flatbed Truck Driver Name Role Phone Benny Waite DO Primary Care Provider [phone] Reason for Visit * Reason Onset Date Comments Advice 06/21/2023 Encounter Details Date Type Department Care Team (Late st Contact Info) Description 06/21/2023 Telephone Family Practice 65 [facility], [place] [address] [place] [phone] Benny Waite 293 [place], [place] [phone] Advice Allergies Active Allergy Reactions Criticality Noted Date Comments Adhesive Tape 02/04/2017 Levofloxacin 09/01/2019 documented as of this encounter (statuses as of 06/21/2023) Medications Medication Sig Dispensed Refills Start Date [...] Oral Tablet Extended Release 24 Hour (toPROL XL)Indications:Senior Occupational Therapist gunjan atrial fibrillation (HCC),CHF (congestive heart failure), NYHA class I, chronic, diastolic (HCC) TAKE ONE-HALF TABLET BY MOUTH IN THE MORNING 45 Tablet 3 02/22/2023 02/22/2024 Active Neomycin-Polymyxin- HC 3.5-60751-7 Otic SolutionIndications :Other infective acute otitis externa [...] as of this encounter (statuses as of 06/21/2023) Active Problems Problem Noted Date Diagnosed Date Sacroiliitis, not elsewhere classified 4 S/P MVR (mitral valve repair) 11/16/2022 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) 11/16/2022 Atherosclerosis of [place] co 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 pectoris 08/11/2022 Severe tricuspid regurgitation 08/11/2022 Gout, arthropathy 07/20/2022 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 02/05/2022 Permanent atrial fibrillation 12/22/2021 Overview: Added automatically from request for surgery [id number] Current moderate episode of major depressive disorder [...] as of this encounter (statuses as of 06/21/2023) Resolved Problems Problem Noted Date Diagnosed Date Resolved Date Severe obesity with body mas s index (BMI) of 35.0 to 39.9 with serious comorbidity 04/24/2022 Aortic root enlargement 10/01/202001/12 Enlarged aorta 05/02/2019 08/19/2020 Senile purpura 05/02/2019 08/19/2020 Mixed connective tissue disease 05/07/2018 08/19/2020 Chronic atrial fibrillation 01/18/2018 12/11/2022 documented as of this encounter (statuses as of 06/21/2023) Immunizations Name Administration Dates Next Due COVID-19 mRNA, LNP-s, No Pre serve, 2-Dose Series (Moderna) 08/20/2020,07/17/2020 COVID-19 mRNA, LNP-s, No Pre serve, 2-Dose Series ([facility]) 05/14/2021 COVID-19, LNP-s, No Preserve , Robbie-sucrose, Ages 12+ (Pfizer) 11/04/2021 COVID-19, MRNA-LNP, 23-24, P F, 30 MCG/0.3 mL, 12 YRS AND ABOVE, IM ([facility] 04/16/2023 Covid-19, Mrna, Lnp-s, Pf, B ivalent, 30 Mcg, IM, 12 yrs and above ([facility]) 03/17/2022 Pneumococcal Conjugate Vacc, 13 Valent (Prevnar) [...] Telephone Encounter - Benny Waite DO - 06/21/2023 2:55 PM EST Noted * Telephone Encounter - Marnie Baker LPN - 06/21/2023 2:14 PM EST Bp now is 120/81 pulse is 61. Advised patient that is WNL. Thank you * Telephone Encounter - Marnie Baker LPN - 06/21/2023 2:12 PM EST Oxygen level is 97 % Pulse is 48 Will monitor. Aware of physical therapy. Thank you * Telephone Encounter - Benny Waite DO - 06/21/2023 1:07 PM EST PT visit should be a one time visit for the eply maneuver * Telephone Encounter - Macy West OSA - 06/21/2023 1:00 PM EST Pt calling to report numbers at Marnie's request. Pulse is 97/48 States he is having trouble getting the pressure but will have when you return his call. * Telephone Encounter - Marnie Baker LPN - 06/21/2023 12:33 PM EST Patient went for PT this am, was told it would be $35.00 each visit. Did call insurance and was told it would cost $20.00 Thank you * Telephone Encounter - Marnie Baker LPN - 06/21/2023 12:29 PM EST Patient was shoveling snow, dropped blood pressure. Did get a bit dizzy. Will strip picker buspar today if able. Bp last check was 122/80 * Telephone Encounter - Macy Carbajal OSA - 06/21/2023 10:15 AM EST Left us a voice mail Wants Marnie to call him documented in this encounter Plan of Treatment Upcoming Encounters Date Type Department Care Team (Late st Contact Info) Description 07/07/2023 9:30 AM EST Telemedicine Interventional Pain Center, [facility] [address] [place] [address] Luann Mcgrath PA-C [address] [place] [address] 08/25/2023 9:40 AM EDT Office Visit Family Practice [address] [place] [address] [address] [place] [address] Benny Waite, 293 [place] [address] 12/21/2023 11:00 AM EDT Nurse Only Ancillary [address], [place] 293 [place] [address] College, Nurse Annual Wellness Visit [address] [facility] 293 [place] [address] 01/05/2024 7:15 AM EDT Cardiac Studies Cardiac Studies, [facility] [address] [place] [address] 01/05/2024 8:30 AM EDT Office Visit Cardiology, [facility] 132 [place] [address] Franco Mcgregor MD [address] [place], [place] [phone] Health Maintenance Due Date Last Done Comments [...] this encounter Medical Devices Implanted Type Area Cheese Packer Device Identifier Shelf Expiration Date Model / Serial / Lot Device Watchman Flx 35mm - [id number] Implanted:Qty: 1 on 02/05/2022 by Diamond Teran IV, MD at [facility] [employer] : INTRV CARD [id number] 10/20/2024 [id number] 50 / / [id number] Cath Thermodilution 6fr - [id number] Implanted:Qty: 1 on 07/31/2022 by Franco Mcgregor MD at [facility] [employer] [id number] 04/30/2024 [id number] / / [id number] Clip Delivery Sytem G4 Xtw - [id number] Implanted:Qty: 1 on 11/16/2022 at [facility] [employer] [id number] 09/10/2023 [id number] / / [id number] documented as of this encounter Advance [...] and were consensually agreed upon. Care Teams Flatbed Truck Driver Relationship Specialty Start Date End Date Benny Waite DO 293 [facility] [address] PCP - General Internal Medicine 04/03/21 documented as of this encounter
--- OUTSIDE RECORDS SUMMARY | 2023-07-13 02:55 | External Medical Summary | Summary of Care ---
Author Name Unknown Organization [facility] Address [address] [facility] [place] [address] Phone [phone] Care Team Providers Care Edge Grinder Name Role Phone YifansaurabhBenny DO Primary Care Provider [phone] Reason for Visit * Reason Onset Date Comments Test Results 07/06/2023 Unexpected or In determinate Result Encounter Details Date Type Department Care Team (Late st Contact Info) Description 07/06/2023 Telephone Cardiology Yehuda Rodríguez [address] [place] [address] Aleksandra Berger PA-C [address] [place] [address] Test Results (Unexpected or [...] Oral Tablet Extended Release 24 Hour (toPROL XL)Indications:Cna Hha gunjan atrial fibrillation (HCC),CHF (congestive heart failure), NYHA class I, chronic, diastolic (HCC) TAKE ONE-HALF TABLET BY MOUTH IN THE MORNING 45 Tablet 3 02/22/2023 02/22/2024 Active Neomycin-Polymyxin- HC 3.5-06736-0 Otic SolutionIndications :Other infective acute otitis externa [...] CHF (congestive heart failure) 11/16/2022 Atherosclerosis of [place] co 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 pectoris 08/11/2022 Severe tricuspid regurgitation 08/11/2022 Gout, arthropathy 07/20/2022 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 02/05/2022 Permanent atrial fibrillation 12/22/2021 Overview: Added automatically from request for surgery [id number] Current moderate episode of major depressive disorder [...] mRNA, LNP-s, No Pre serve, 2-Dose Series ([employer]) 05/14/2021 COVID-19, LNP-s, No Preserve , Robbie-sucrose, Ages 12+ (Pfizer) 11/04/2021 COVID-19, MRNA-LNP, 23-24, P F, 30 MCG/0.3 mL, 12 YRS AND ABOVE, IM ([facility]) 04/16/2023 Covid-19, Mrna, Lnp-s, Pf, B ivalent, 30 Mcg, IM, 12 yrs and above ([employer]) 03/17/2022 Pneumococcal Conjugate Vacc, 13 Valent (Prevnar) [...] encounter Miscellaneous Notes * Telephone Encounter - Vijaya Buckley OSA - 07/06/2023 4:42 AM EST Hello- The radiologist discovered an unexpected or indeterminate finding on Nikolas Silvestre ([id number]) and asks that you review the following report. Study Type:XR CHEST 2 VIEWS Date of Study: IMPRESSION IMPRESSION Increasing superior mediastinal density, with underlying mass or adenopathy not excluded. RecommendCT thorax for further evaluation. Please respond to this encounter to acknowledge receipt of this message and take responsibility to ensure this report is reviewed. Thank you, DEX Murillo Client Service Rep Diagnostic Medicine [place] documented in this encounter Plan of Treatment Upcoming Encounters Date Type Department Care Team (Late st Contact Info) Description 07/07/2023 9:30 AM EST Telemedicine Interventional Pain Center, [facility] [address] [place] [address] Luann Mcgrath PA-C [address] [place] [address] 08/25/2023 9:40 AM EDT Office Visit Family Practice 65 [facility] 293 [place] [address] Benny Waite, 293 [place] [address] 12/21/2023 11:00 AM EDT Nurse Only Ancillary 65 [facility] 293 [place] [address] College, Nurse Annual Wellness Visit [address] [facility] 293 [place] [address] 01/05/2024 7:15 AM EDT Cardiac Studies Cardiac Studies, [facility] 132 [place] [address] 01/05/2024 8:30 AM EDT Office Visit Cardiology, [facility] 132 [place] [address] Franco Mcgregor MD [address] [place] [address] Health Maintenance Due Date Last [...] this encounter Medical Devices Implanted Type Area Drug Room Clerk Device Identifier Shelf Expiration Date Model / Serial / Lot Device Watchman Flx 35mm - [id number] Implanted:Qty: 1 on 02/05/2022 by Diamond Teran IV, MD at [facility] [employer] : INTRV CARD [id number] 10/20/2024 [id number] 50 / / [id number] Cath Thermodilution 6fr - [id number] Implanted:Qty: 1 on 07/31/2022 by Franco Mcgregor MD at [facility] [employer] [id number] 04/30/2024 [id number] / / [id number] Clip Delivery Sytem G4 Xtw - [id number] Implanted:Qty: 1 on 11/16/2022 at [facility] [employer] [id number] 09/10/2023 [id number] / / [id number] documented as of this encounter Advance [...] and were consensually agreed upon. Care Teams Edge Grinder Relationship Specialty Start Date End Date Benny Waite DO [address] [place] [address] PCP - General Internal Medicine 04/03/21 documented as of this encounter
--- OUTSIDE RECORDS SUMMARY | 2023-07-13 02:56 | External Medical Summary | Summary of Care ---
Author Name Unknown Organization [facility] Address [address] [facility] [place] [address] Phone [phone] Care Team Providers Care Operations Recruiter Name Role Phone Benny Waite DO Primary Care Provider [phone] Reason for Referral * Evaluate & Treat - Unlimited Visits (Within 10 days (routine)) - Authorized Specialty Diagnoses / Procedures Referred By Elaina hernandez Referred To Contact Physical Therapy / Physical Medicine And Rehab Diagnoses Vertigo Benny Waite DO [address] [place] [address] Referral ID Status Reason Start Date Expiration Date Visits Requested Visits Authorized [id number] Authorized Specialty Services Required 06/16/[phone] Question Answer Referral Priority Within 10 days (routine) Where should this appointment be scheduled? [facility] Reason for Visit * Reason Comments Follow Up Encounter Details Date Type Department Care Team (Late st Contact Info) Description 06/16/2023 8:40 AM EST Office Visit Family Practice [address], [place] [address] [place] [address] Benny Waite DO [address] [place] [address] Vertigo*; Chronic combined systolic and diastolic CHF (congestive heart failure) (HCC); Permanent atrial fibrillation (HCC); Atherosclerosis of [place] coronary artery of [place] heart without angina pectoris; 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); Sacroiliitis, not elsewhere classified (HCC); BPH with obstruction/lower urinary tract symptoms; DEX (obstructive sleep apnea); S/P MVR (mitral valve repair); Severe tricuspid regurgitation; Presence of Watchman left atrial appendage closure device; Lumbar degenerative disc disease; Gout, arthropathy Allergies Active Allergy Reactions Criticality Noted Date [...] Oral Tablet Extended Release 24 Hour (toPROL XL)Indications:Instructor Extension Work gunjan atrial fibrillation (HCC),CHF (congestive heart failure), NYHA class I, chronic, diastolic (HCC) TAKE ONE-HALF TABLET BY MOUTH IN THE MORNING 45 Tablet 3 02/22/2023 02/22/2024 Active Neomycin-Polymyxin- HC 3.5-28949-8 Otic SolutionIndications :Other infective acute otitis externa [...] CHF (congestive heart failure) 11/16/2022 Atherosclerosis of [place] co 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 pectoris 08/11/2022 Severe tricuspid regurgitation 08/11/2022 Gout, arthropathy 07/20/2022 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 02/05/2022 Permanent atrial fibrillation 12/22/2021 Overview: Added automatically from request for surgery [id number] Current moderate episode of major depressive disorder [...] mRNA, LNP-s, No Pre serve, 2-Dose Series ([employer]) 05/14/2021 COVID-19, LNP-s, No Preserve , Robbie-sucrose, Ages 12+ (Pfizer) 11/04/2021 COVID-19, MRNA-LNP, 23-24, P F, 30 MCG/0.3 mL, 12 YRS AND ABOVE, IM ([facility]) 04/16/2023 Covid-19, Mrna, Lnp-s, [...] Never Smokeless Tobacco: Never Tobacco Cessation:Counseling Given: Yes Alcohol Use Standard Drinks/Week Comments Not Currently [...] 8:52 AM EDT Sexual Orientation Straight 09/15/2018 8 :52 AM EDT Job Start Date Occupation Industry Not on file Not on file Not on file documented as of this encounter Last Filed Vital Signs Vital Sign Reading Time Taken Comments Blood Pressure 134/74 06/16/2023 8:53 AM EST Pulse 76 06/16/2023 8:53 AM EST Temperature 36.3 C (97.3 F) 06/16/2023 8:53 AM ES T Respiratory Rate 16 06/16/2023 8:53 AM EST Oxygen Saturation 96% 06/16/2023 8:53 AM EST Inhaled Oxygen Concentration - - Weight 101.2 kg (223 lb 1.6 oz) 06/16/2023 8:53 AM EST Height 170.8 cm (5' 7.25") 06/16/2023 8:53 AM ES T Body Mass Index 34.68 06/16/2023 8:53 AM EST documented in this [...] as of this encounter Progress Notes * Benny Waite, - 06/16/2023 9:21 AM EST SUBJECTIVE: Nikolas Silvestre is a 82 year old male. Chief Complaint Patient presents with Follow Up HPI: Patient is an 82 year old male with a history of Atrial Fibrillation, Mitral Valve Repair, Diastolic CHF, Sleep Apnea, BiPAP intolerance, Lumbar Disc Disease, SI joint arthritis, Internal Hemorrhoids, BPH, Gout, and Watchman Device Implant that is seen for continued dizziness when bends at the waist. He also has dizziness with position change. Symptoms have been present for the last 3 months and occur intermittently. No chest pain is present. Chronic shortness of breath has worsened slowly. Chronic low back pain is unchanged. He is scheduled to see pain management on 07/07. No recent falls. Weight is up and appetite is good. Patient Active Problem List Diagnosis Code ADVANCE DIRECTIVE INFORMATION Elevated prostate specific antigen (PSA) R97.20 Macular puckering H35.379 BPH with obstruction/lower urinary tract symptoms N40.1, N13.8 CHF (congestive heart failure), NYHA class I, chronic, diastolic ([facility]) I50.32 Encounter for long-term (current) use of medications Z79.899 DEX (obstructive sleep apnea) G47.33 Moderate to severe mitral regurgitation I34.0 Lumbar degenerative disc disease M51.36 Current 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 ([facility]) F32.1 Permanent atrial fibrillation ([facility]) I48.21 Presence of Watchman left atrial appendage closure device Z95.818 Gout, arthropathy M10.9 Atherosclerosis of [place] co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 pectoris I25.10 Severe tricuspid regurgitation I07.1 S/P MVR (mitral valve repair) Z98.890 Chronic combined systolic and diastolic CHF (congestive heart failure) ([facility]) I50.42 Sacroiliitis, not elsewhere classified ([facility]) M46.1 Current Outpatient Medications Medication Sig Dispense Refill [...] MOUTH IN THE MORNING 45 Tablet 3 Allopurinol 300 MG Oral Tablet (Zyloprim) Take [...] as needed for Dizziness. 180 Tablet 1 Fgtognkd-Cfglqkpuz-JI 3.5-59117-1 Otic Solution Administer 4 Drops into the left ear in the morningand 4 Drops at noon and 4 Drops before bedtime. To affected ear for 10 days 10 mL 0 Current Facility-Administered Medications Medication Dose Route Frequency Provider Last Rate Last Admin Albuterol Sulfate (Proventil) (2.5 MG/3ML) 0.083% inhalation solution 2.5 mg 2.5 mg Nebulizer PRN [place] PA-C Albuterol Sulfate (Proventil) (5 MG/ML) 0.5% *conc* inhalation solution 2.5 mg 2.5 mg Nebulizer PRGlen Lowe PA-C 2.5 mg at 12/10/22 1256 Facility-Administered Medications Ordered in Other Visits Medication Dose Route Frequency Provider Last Rate Last Admin LORazepam (ATIVAN) inj Once PRN Marion Suarez SRNA 2 mg at 09/13/12 1340 The patient's medication list was reviewed and updated as needed. Past Medical History: Diagnosis Date Aortic root enlargement (HCC) 10/01/2020 BPH with obstruction/lower urinary tract symptoms CHF (congestive heart failure), NYHA class I, chronic, diastolic ([facility]) 05/02/2019 Chronic atrial fibrillation (HCC) 01/18/2018 Current 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 ([facility]) 07/09/2021 DDD (degenerative disc disease), lumbar Depression Gout, arthropathy 07/20/2022 Nonrheumatic mitral valve regurgitation 04/03/2021 Renal calculus Severe obesity with body mass index (BMI) of 35.0 to 39.9 with serious comorbidity ([facility]) 04/24/2022 Sleep apnea, obstructive Past Surgical History: Procedure Laterality Date CATARACT SURGERY,COMPLEX COLONOSCOPY, DIAGNOSTIC (RECTUM) 02/13/2021 diverticulosis, fair prep / [facility] COLORECTAL CANCER SCREEN; NOT AT RISK 04/04/2008 Diverticulosis CORONARY ANGIOGRAPHY W/RIGHT+LEFT CATH Bilateral 07/31/2022 CORONARY ANGIOGRAPHY W/RIGHT+LEFT CATH performed by Franco Mcgregor MD at [facility] CYSTOSCOPY 10/22/2011 CYSTOURETHROSCOPY performed by LIBERTAD FITZPATRICK at [facility] [place]STOSCOPY 09/13/2012 CYSTOURETHROSCOPY performed by Eliseo Menard MD at [facility] INJECT DX/THER SUBSTANCE INTERLAMINAR LUMBAR/SACRAL W IMAGE GUIDE 06/23/2021 INJECTION SPINE LUMBAR OR SACRAL performed by Anderson Easton DO at [facility] OTHER 02/13/1980 Dr. Zhang DEX surgery OTHER left hand reconstruction PERC CLOSURE TRANSCATH LEFT ATRIAL APPENDAGE W/ENDOCARDIAL IMPLANT N/A 02/05/2022 PERCUTANEOUS CLOSURE LEFT ATRIAL APPENDAGE IMPLANT performed by Diamond Teran IV, MD at [facility] PSA 06/14/2004 3.42 PSA 06/14/2005 3.72 PSA 02/13/2008 5.17 REMOVAL OF PROSTATE (TURP) 10/22/2011 TRANSURETHRAL RESECTION PROSTATE ELECTROSURGICAL performed by LIBERTAD FITZPATRICK at [facility] REMOVAL OF PROSTATE (TURP) 09/13/2012 TRANSURETHRAL RESECTION PROSTATE ELECTROSURGICAL performed by Eliseo Menard MD at [facility] REMOVE CATARACT, INSERT LENS PROSTH OU REMOVE TONSILS & ADENOIDS, UNDER 12 SACROILIAC JOINT INJECT W/GUIDANCE 11/11/2022 INJECTION SACROILIAC JOINT performed by Anderson Easton DO at [facility] SACROILIAC JOINT INJECT W/GUIDANCE 02/10/2023 INJECTION SACROILIAC JOINT performed by Anderson Easton DO at [facility] SACROILIAC JOINT INJECT W/GUIDANCE 05/26/2023 INJECTION SACROILIAC JOINT performed by Anderson Easton DO at [facility] TRANSCATH REPAIR MITRAL VALVE, INITIAL Bilateral 11/16/2022 TRANSCATHETER MITRAL VALVE REPAIR performed by Franco Mcgregor MD at [facility] VITRECTOMY W/ REMOVE OF EPIRETINAL MEMBRANE 11/12/2008 Right eye Review of patient's allergies indicates: Allergen Reactions Adhesive Tape Levaquin [Levofloxacin] Review of Systems Constitutional: Positive for fatigue. Negative for appetite change, chills, fever and unexpected weight change. HENT: Negative for congestion, sore throat and trouble swallowing. Respiratory: Positive for shortness of breath. Negative for cough and wheezing. Cardiovascular: Negative for chest pain, palpitations and leg swelling. Gastrointestinal: Negative for abdominal pain, blood in stool, constipation, diarrhea, nausea and vomiting. Genitourinary: Negative for dysuria and hematuria. Musculoskeletal: Positive for arthralgias, back pain and gait problem. Neurological: Positive for dizziness. Negative for syncope, weakness and headaches. Psychiatric/Behavioral: Negative for confusion, decreased concentration and sleep disturbance. OBJECTIVE: BP 134/74 | Pulse 76 | Temp 36.3 C (97.3 F) (Tympanic) | Resp 16 | Ht 1.708 m (5' 7.25") | Wt 101.2 kg (223 lb 1.6 oz) | SpO2 96% | BMI 34.68 kg/m | BSA 2.19 m Physical Exam Vitals and nursing note reviewed. Constitutional: General: He is not in acute distress. Appearance: Normal appearance. He is not toxic-appearing. HENT: Head: Normocephalic and atraumatic. Right Ear: Tympanic membrane and ear canal normal. Left Ear: Tympanic membrane and ear canal normal. Cardiovascular: Rate and Rhythm: Normal rate and regular rhythm. Heart sounds: Murmur heard. No gallop. Pulmonary: Effort: Pulmonary effort is normal. Breath sounds: Normal breath sounds. No wheezing, rhonchi or rales. Abdominal: General: Bowel sounds are normal. There is no distension. Palpations: Abdomen is soft. Tenderness: There is no abdominal tenderness. Musculoskeletal: Right lower leg: No edema. Left lower leg: No edema. Neurological: Mental Status: He is alert and oriented to person, place, and time. Mental status is at baseline. Motor: No weakness. Gait: Gait abnormal. Psychiatric: Mood and Affect: Mood normal. Behavior: Behavior normal. Thought Content: Thought content normal. PLAN AND ASSESSMENT: Vertigo (Primary) - Start Meclizine HCl 12.5 MG Oral Tablet (Antivert); Take 1 Tablet by mouth 2 times a day as needed for Dizziness. - PHYSICAL THERAPY REFERRAL OP Chronic combined systolic and diastolic CHF (congestive heart failure) (HCC) Continue Metoprolol ER Permanent atrial fibrillation (HCC) Continue Metoprolol ER S/P Watchman Atherosclerosis of [place] coronary artery of [place] heart without angina pectoris Continue Metoprolol ER, and ASA 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) Patient does not wish to take medication Sacroiliitis, not elsewhere classified (HCC) Continue to follow with Pain Management BPH with obstruction/lower urinary tract symptoms Continue Finasteride DEX (obstructive sleep apnea) CPAP / BiPAP intolerant S/P MVR (mitral valve repair) Severe tricuspid regurgitation Presence of Watchman left atrial appendage closure device Lumbar degenerative disc disease Continue Tramadol , and Gabapentin Gout, arthropathy Follow-up: Return in about 10 weeks (around 08/25/2023), or if symptoms worsen or fail to improve. |Check-out note: Schedule PT for Vertigo Benny Waite DO 9:21 AM 06/16/2023 documented in this encounter Nursing Notes * Marnie Baker LPN - 06/16/2023 8:52 AM EST Here for follow up, complaining of back spasms. Also complaining of dizziness when bends over. documented in this encounter Plan of Treatment Upcoming Encounters Date Type Department Care Team (Late st Contact Info) Description 06/16/2023 10:30 AM EST Office Visit [facility] [address] [place] [address] Ale Leon CRNP [address] [place] [address] Nonrheumatic mitral valve regurgitation*; S/P mitral valve clip implantation 07/07/2023 9:30 AM EST Telemedicine [facility] [address] [place] [address] Luann Mcgrath PA-C [address] [place] [address] 08/25/2023 9:40 AM EDT Office Visit Family Practice [address] [facility] [address] [facility], [place] [address] Benny Waite, [address] [facility], [place] [address] 12/21/2023 11:00 AM EDT Nurse Only Ancillary [address] [facility] [address] [facility], [place] [address] College, Nurse Annual Wellness Visit [address], [place] [address] 01/05/2024 7:15 AM EDT Cardiac Studies Cardiac Studies, [facility] [address] [facility] [place] [address] 01/05/2024 8:30 AM EDT Office Visit Cardiology[facility] [address] [place] [address] Franco Mcgregor MD [address] [facility] [place] [address] Scheduled Referrals Name Type Priority Associated Diagnoses Orde r Schedule PHYSICAL THERAPY REFERRAL OP Referral Within 10 days (routine) Vertigo Ordered: 06/16/2023 Health Maintenance Due Date Last Done Comments [...] this encounter Medical Devices Implanted Type Area Renewals Specialist Device Identifier Shelf Expiration Date Model / Serial / Lot Device Watchman Flx 35mm - [id number] Implanted:Qty: 1 on 02/05/2022 by Diamond Teran IV, MD at [facility] [employer] : INTRV CARD [id number] 10/20/2024 [id number] / / [id number] Cath Thermodilution 6fr - [id number] Implanted:Qty: 1 on 07/31/2022 by Franco Mcgregor MD at [facility] [employer] [id number] 04/30/2024 [id number] / / [id number] Clip Delivery Sytem G4 Xtw - [id number] Implanted:Qty: 1 on 11/16/2022 at [facility] Chrom[employer] [id number] 09/10/2023 [id number] / / [id number] documented as of this encounter Visit Diagnoses Diagnosis Vertigo- Primary Dizziness and giddiness Chronic combined systolic and diastolic CHF (congestive heart failure) (HCC) Chronic combined systolic and diastolic heart failure Permanent atrial fibrillation (HCC) Atrial fibrillation Atherosclerosis of [place] coronary artery of [place] heart without angina pectoris 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) Sacroiliitis, not elsewhere classified (HCC) Sacroiliitis, not elsewhere classified BPH with obstruction/lower urinary tract symptoms Hypertrophy of prostate with urinary obstruction and other lower urinary tract symptoms (LUTS) DEX (obstructive sleep apnea) Obstructive sleep apnea (adult) (pediatric) S/P MVR (mitral valve repair) Other postprocedural status Severe tricuspid regurgitation 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 Care Teams Operations Recruiter Relationship Specialty Start Date End Date Benny Waite DO [address] [place] [address] PCP - General Internal Medicine 04/03/21 documented as of this encounter
--- OUTSIDE RECORDS SUMMARY | 2023-07-13 02:56 | External Medical Summary | Summary of Care ---
Author Name Unknown Organization [facility] Address [address] [facility] [place] [address] Phone [phone] Care Team Providers Care Tack Cutter Name Role Phone Benny Waite DO Primary Care Provider [phone] Reason for Visit * Reason Onset Date Comments Appointment 06/11/2023 Encounter Details Date Type Department Care Team (Late st Contact Info) Description 06/11/2023 Telephone Family Practice 65 [facility], [place] [address] [place] [phone] Benny Waite 293 [place], [place] [phone] Appointment Allergies Active Allergy Reactions Criticality Noted Date Comments Adhesive Tape 02/04/2017 Levofloxacin 09/01/2019 documented as of this encounter (statuses as of 06/11/2023) Medications Medication Sig Dispensed Refills Start Date [...] Oral Tablet Extended Release 24 Hour (toPROL XL)Indications:Installation Technician gunjan atrial fibrillation (HCC),CHF (congestive heart failure), NYHA class I, chronic, diastolic (HCC) TAKE ONE-HALF TABLET BY MOUTH IN THE MORNING 45 Tablet 3 02/22/2023 02/22/2024 Active Neomycin-Polymyxin- HC 3.5-14811-3 Otic SolutionIndications :Other infective acute otitis externa [...] EVERY MORNING 100 Tablet 2 05/25/2023 Active Hospital, Clinic, or Other Facility Administered [...] as of this encounter (statuses as of 06/11/2023) Active Problems Problem Noted Date Diagnosed Date S/P MVR (mitral valve repair) 11/16/2022 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) 11/16/2022 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 08/11/2022 Severe tricuspid regurgitation 08/11/2022 Gout, arthropathy 07/20/2022 Severe obesity with body mas s index (BMI) of 35.0 to 39.9 with serious comorbidity 04/24/2022 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 02/05/2022 Permanent atrial fibrillation 12/22/2021 Overview: Added automatically from request for surgery [id number] Current moderate episode of major depressive disorder [...] as of this encounter (statuses as of 06/11/2023) Resolved Problems Problem Noted Date Diagnosed Date Resolved Date Aortic root enlargement 10/01/202001/12 Enlarged aorta 05/02/2019 08/19/2020 Senile purpura 05/02/2019 08/19/2020 Mixed connective tissue disease 05/07/2018 08/19/2020 Chronic atrial fibrillation 01/18/2018 12/11/2022 documented as of this encounter (statuses as of 06/11/2023) Immunizations Name Administration Dates Next Due COVID-19 mRNA, LNP-s, No Pre serve, 2-Dose Series (Moderna) 08/20/2020,07/17/2020 COVID-19 mRNA, LNP-s, No Pre serve, 2-Dose Series ([employer]) 05/14/2021 COVID-19, LNP-s, No Preserve , Robbie-sucrose, Ages 12+ (Pfizer) 11/04/2021 COVID-19, MRNA-LNP, 23-24, P F, 30 MCG/0.3 mL, 12 YRS AND ABOVE, IM (Wyldfire-Comirnat) 04/16/2023 Covid-19, Mrna, Lnp-s, Pf, B ivalent, [...] encounter Miscellaneous Notes * Telephone Encounter - Ale Leon CRNP - 06/11/2023 10:49 AM EST [facility] chart reviewed. ED provider note 06/10/2023: History of Present Illness This patient is an 82-year-old male who comes with multiple different complaints. Has not been feeling well since he has had a heart valve surgery over the summer. He says blood pressure was high last night it was 151/120s at the [place]. He has been feeling weak for the last couple weeks he gets dyspnea on exertion and when he bends over he may have slight fevers and feels sweaty at night. He has occasional chest pain had an episode last night for 5 minutes or less. No lower extremity pain or swelling. no cough . occasional palpitations. He felt lightheaded for the last 6 months. He is not present on blood thinner although is chronic A-fib. He had no blood or melena stool. no focal numbness or weakness or difficulty speaking or swallowing. Has been seen by his regular doctor as well as his safe deposit attendant and says they cannot get to the bottom of the problem they just recently cut down his metoprolol apparently. MDM Narrative This patient is a 82-year-old male who comes in with multiple complaints including hypertension. Heis normotensive. has normal vital signs at present and he has no chest pain or shortness of breath.he had some dyspnea on exertion weakness and occasional chest pain that been going on for several weeks to months. He looks well. He has a normal baseline neurologic exam. I had him walk he ambulateswithout difficulty or ataxia. EKG shows baseline A-fib which is unchanged when compared to his old EKG. his troponin is not elevated. Chest x- ray shows some cardiomegaly but no overt CHF he has no significant anemia. He has no significant electrolyte or metabolic abnormalities. They have been adjust ing his medications. I did discuss case with in consultation with the on-call safe deposit attendant, Dr. Delvalle. Reviewed the labs and workup. He agrees with the plan. At this point I will discharge the patient home everything looks very reassuring and this is been going on for weeks to months. The patient seems to be frustrated as he cannot get immediate answers and has been to his doctor a couple times. He was encouraged to return if he has worsening symptoms, any new problems or concerns and is encouraged have close follow-up with his regular doctor. Past medical history per my last OV note dated 05/14/2023 Past medical history: Permanent atrial fibrillation [id number] score of 3 (age 1, CHF) S/p watchman (# 35mm FLEX) 02/05/[address] Teran (BRBPR while on Eliquis) History amaurosis fugax, 11/2021 Negative carotid duplex HFpEF, NYHA class 2 Moderate to severe mitral and tricuspid regurgitation S/p MitraClip XT W device with reduction of regurgitation for 4+ to 1+, 11/16/[address] Mcgregor Mildly enlarged aortic root and proximal ascending aorta, 3.9 cm/4.1 cm respectively per echo 10/2021 Severe DEX, not on CPAP Seronegative inflammatory arthritis, on Plaquenil Hx of GERD and gastritis * Telephone Encounter - Jackelyn Ivey, DEX - 06/11/2023 9:19 AM EST Spoke with Pt, he was very upset and began cursing because he can't be seen today. Pt stated he went to the ED yesterday because he couldn't get a call back from anyone in cardiology. Pt accepted an appointment with Ale on 06/16, but stated "I might as well call the home if I have to wait that long". Pt also upset that he has had to make a copay at our clinic plus a large copay at the EDand still doesn't have any answers. Says he will address this when he comes in for his appointment. * Telephone Encounter - Macy Carbajal OSA - 06/11/2023 9:11 AM EST Returning your call * Telephone Encounter - Marnie Baker LPN - 06/11/2023 8:43 AM EST Reviewed hospital information, ER prescribed elaquis. Patient states he knows not to take medication. Thank you * Telephone Encounter - Marnie Baker LPN - 06/11/2023 8:37 AM EST Patient calling states was in ER yesterday as he was advised to go to ER. Patient has cardiac questions, wants to see cardiology as follow up. Please call and schedule. Thank you documented in this encounter Plan of Treatment Upcoming Encounters Date Type Department Care Team (Late st Contact Info) Description 06/16/2023 8:40 AM EST Office Visit Family Practice [address], [place] [address] [place] [address] Benny Waite, DO 293 [place] [address] 06/16/2023 10:30 AM EST Office Visit Cardiology, [facility] 132 [facility] [place] [address] Ale Leon CRNP [facility] [address] 07/07/2023 9:30 AM EST Telemedicine Interventional Pain Center, [facility] 132 [facility] [place] [address] Luann Mcgrath PA-C 132 [facility] [address] 08/25/2023 9:40 AM EDT Office Visit Family Practice [address] [place] [phone] Benny Waite, 293 [place] [address] 12/21/2023 11:00 AM EDT Nurse Only Ancillary [address] [address] College, Nurse Annual Wellness Visit [address] [address] 01/05/2024 8:30 AM EDT Office Visit [facility], [facility] [address] Franco Mcgregor MD [address] [place] [address] Health Maintenance Due Date Last Done Comments Hepatitis B (1 of 3 - Risk 3-dose series) 1998 Depression Screening 06/02/2024 06/02/2023 DTaP,Tdap,and Td Vaccines (2 - Td or [...] this encounter Medical Devices Implanted Type Area Foot Gatherer Device Identifier Shelf Expiration Date Model / Serial / Lot Device Watchman Flx 35mm - [id number] Implanted:Qty: 1 on 02/05/2022 by Diamond Teran IV, MD at [facility] [employer] : INTRV CARD [id number] 10/20/2024 [id number] 50 / / [id number] Cath Thermodilution 6fr - [id number] Implanted:Qty: 1 on 07/31/2022 by Franco Mcgregor MD at [facility] [employer] JACINTO [id number] 04/30/2024 [id number] / / [id number] Clip Delivery Sytem G4 Xtw - [id number] Implanted:Qty: 1 on 11/16/2022 at [facility] [place] [employer] Card [id number] 09/10/2023 [id number] TW / / [id number] documented as of this encounter Advance [...] and were consensually agreed upon. Care Teams Tack Cutter Relationship Specialty Start Date End Date Benny Waite DO [address] [place] [address] PCP - General Internal Medicine 04/03/21 documented as of this encounter
--- OUTSIDE RECORDS SUMMARY | 2023-07-13 02:56 | External Medical Summary | Summary of Care ---
Author Name Unknown Organization [facility] Address [address] [facility] [place] [address] Phone [phone] Care Team Providers Care Wafer Fab Technician Name Role Phone Benny Waite DO Primary Care Provider [phone] Reason for Visit * Reason Onset Date Comments Appointment 06/11/2023 Encounter Details Date Type Department Care Team (Late st Contact Info) Description 06/11/2023 Telephone Family Practice 65 [facility], [place] [address] [place] [phone] Benny Waite 293 [place], [place] [phone] Appointment Allergies Active Allergy Reactions Criticality Noted [...] Oral Tablet Extended Release 24 Hour (toPROL XL)Indications:Campus Aide gunjan atrial fibrillation (HCC),CHF (congestive heart failure), NYHA class I, chronic, diastolic (HCC) TAKE ONE-HALF TABLET BY MOUTH IN THE MORNING 45 Tablet 3 02/22/2023 02/22/2024 Active Neomycin-Polymyxin- HC 3.5-29945-6 Otic SolutionIndications :Other infective acute otitis externa [...] CHF (congestive heart failure) 11/16/2022 Atherosclerosis of deering co 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 pectoris 08/11/2022 Severe tricuspid regurgitation 08/11/2022 Gout, arthropathy 07/20/2022 Severe obesity with body mas s index (BMI) of 35.0 to 39.9 with serious comorbidity 04/24/2022 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 02/05/2022 Permanent atrial fibrillation 12/22/2021 Overview: Added automatically from request for surgery [id number] Current moderate episode of major depressive disorder [...] mRNA, LNP-s, No Pre serve, 2-Dose Series ([employer]) 05/14/2021 COVID-19, LNP-s, No Preserve , Robbie-sucrose, Ages 12+ (Pfizer) 11/04/2021 COVID-19, MRNA-LNP, 23-24, P F, 30 MCG/0.3 mL, 12 YRS AND ABOVE, IM ([employer]ro-Comirnat) 04/16/2023 Covid-19, Mrna, Lnp-s, Pf, B ivalent, [...] Leon CRNP - 06/11/2023 10:49 AM EST [facility] chart reviewed. ED provider note 06/10/2023: History of Present Illness This patient is an 82-year-old male who comes with multiple different complaints. Has not been feeling well since he has had a heart valve surgery over the summer. He says blood pressure was high last night it was 151/120s at the [facility]. He has been feeling weak for the [...] his regular doctor as well as his flaker operator and says they cannot get to the [...] case with in consultation with the on-call flaker operator, Dr. Delvalle. Reviewed the labs and workup. [...] 05/14/2023 Past medical history: Permanent atrial fibrillation [id number] score of 3 (age 1, CHF) S/p [...] EST Office Visit Family Practice [address], [place] [address] [place] [address] Benny Waite, DO 293 [place] [address] 06/16/2023 10:30 AM EST Office Visit Cardiology, [facility] 132 [facility] [place] [address] Ale Leon CRNP 132 [facility] [address] 07/07/2023 9:30 AM EST Telemedicine Interventional Pain Center, [facility] 132 [facility] [place] [address] Luann Mcgrath PA-C 132 [facility] [place] [address] 08/25/2023 9:40 AM EDT Office Visit Family Practice [address] [place] [phone] Benny Waite, 293 [place] [address] 12/21/2023 11:00 AM EDT Nurse Only Ancillary [address] [address] College, Nurse Annual Wellness Visit [address] [address] 01/05/2024 8:30 AM EDT Office Visit Cardiology, [facility] 132 [facility] [address] Fracno Mcgregor MD [address] [place] [address] Health Maintenance Due Date Last Done Comments [...] this encounter Medical Devices Implanted Type Area Bee Keeper Device Identifier Shelf Expiration Date Model / Serial / Lot Device Watchman Flx 35mm - [id number] Implanted:Qty: 1 on 02/05/2022 by Diamond Teran IV, [place] at [facility] [employer] : INTRV CARD [id number] 10/20/2024 [id number] 50 / / [id number] Cath Thermodilution 6fr - [id number] Implanted:Qty: 1 on 07/31/2022 by Franco Mcgregor MD at [facility] [employer]INTO [id number] 04/30/2024 [id number] / / [id number] Clip Delivery Sytem G4 Xtw - [id number] Implanted:Qty: 1 on 11/16/2022 at [facility] [employer] [id number] 09/10/2023 [id number] / / [id number] documented as of this encounter Advance [...] and were consensually agreed upon. Care Teams Wafer Fab Technician Relationship Specialty Start Date End Date Benny Waite DO [address] [place] [address] PCP - General Internal Medicine 04/03/21 documented as of this encounter
--- OUTSIDE RECORDS SUMMARY | 2023-07-13 02:56 | External Medical Summary | Summary of Care ---
Author Name Unknown Organization [facility] Address [address] [facility] [place] [address] Phone [phone] Care Team Providers Care Nursing Program Chair Name Role Phone Benny Waite DO Primary Care Provider [phone] Reason for Visit * Reason Onset Date Comments Appointment 06/11/2023 Encounter Details Date Type Department Care Team (Late st Contact Info) Description 06/11/2023 Telephone Family Practice 65 [facility], [employer] [address] [place] [phone] Benny Waite 293 [place], [place] [phone] Appointment Allergies Active Allergy Reactions Criticality Noted [...] Oral Tablet Extended Release 24 Hour (toPROL XL)Indications:Revenue Coordinator gunjan atrial fibrillation (HCC),CHF (congestive heart failure), NYHA class I, chronic, diastolic (HCC) TAKE ONE-HALF TABLET BY MOUTH IN THE MORNING 45 Tablet 3 02/22/2023 02/22/2024 Active Neomycin-Polymyxin- HC 3.5-34061-5 Otic SolutionIndications :Other infective acute otitis externa [...] CHF (congestive heart failure) 11/16/2022 Atherosclerosis of samish co 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 pectoris 08/11/2022 Severe tricuspid regurgitation 08/11/2022 Gout, arthropathy 07/20/2022 Severe obesity with body mas s index (BMI) of 35.0 to 39.9 with serious comorbidity 04/24/2022 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 02/05/2022 Permanent atrial fibrillation 12/22/2021 Overview: Added automatically from request for surgery [id number] Current moderate episode of major depressive disorder [...] mRNA, LNP-s, No Pre serve, 2-Dose Series ([employer]) 05/14/2021 COVID-19, LNP-s, No Preserve , Robbie-sucrose, Ages 12+ (Pfizer) 11/04/2021 COVID-19, MRNA-LNP, 23-24, P F, 30 MCG/0.3 mL, 12 YRS AND ABOVE, IM (gamesGRABR-Comirnat) 04/16/2023 Covid-19, Mrna, Lnp-s, Pf, B ivalent, [...] encounter Miscellaneous Notes * Telephone Encounter - Jackelyn Ivey OSA - 06/11/2023 9:19 AM EST Spoke with [...] 8:40 AM EST Office Visit Family Practice [address] [place] [address] 293 [place] [address] Benny Waite DO 293 [place] [address] 06/16/2023 10:30 AM EST Office Visit Cardiology, [facility] 132 [place] [address] Ale Leon CRNP [address] [place] [address] 07/07/2023 9:30 AM EST Telemedicine Interventional Pain Center, [facility] 132 [place] [address] Luann Mcgrath PA-C [address] [place] [address] 08/25/2023 9:40 AM EDT Office Visit Family [address] 293 [place] [phone] Benny Waite, 293 [place] [address] 12/21/2023 11:00 AM EDT Nurse Only Ancillary [address], [employer] 293 [place] [address] College, Nurse Annual Wellness Visit [address] [facility] 293 [place] [address] 01/05/2024 8:30 AM EDT Office Visit Cardiology, [facility] 132 [facility] [place], [place] [phone] Franco Mcgregor MD [address] [place] [address] Health Maintenance Due Date Last [...] this encounter Medical Devices Implanted Type Area Jitterbug Operator Device Identifier Shelf Expiration Date Model / Serial / Lot Device Watchman Flx 35mm - [id number] Implanted:Qty: 1 on 02/05/2022 by Diamond Teran IV, MD at [facility] [place] [employer] : INTRV CARD [id number] 10/20/2024 [id number] 50 / / [id number] Cath Thermodilution 6fr - [id number] Implanted:Qty: 1 on 07/31/2022 by Franco Mcgregor MD at [facility] [place] [employer] [id number] 04/30/2024 [id number] / / [id number] Clip Delivery Sytem G4 Xtw - [id number] Implanted:Qty: 1 on 11/16/2022 at [facility] [place] [employer] [id number] 09/10/2023 [id number] TW / / [id number] documented as of this encounter Advance [...] and were consensually agreed upon. Care Teams Nursing Program Chair Relationship Specialty Start Date End Date Benny Waite DO [address] [place] [address] PCP - General Internal Medicine 04/03/21 documented as of this encounter
--- OUTSIDE RECORDS SUMMARY | 2023-07-13 02:56 | External Medical Summary | Summary of Care ---
Author Name Unknown Organization [facility] Address [address] [facility] [place] [address] Phone [phone] Care Team Providers Care Sales And Leasing Agent Name Role Phone Benny Waite DO Primary Care Provider [phone] Reason for Visit * Reason Onset Date Comments Appointment 06/11/2023 Encounter Details Date Type Department Care Team (Late st Contact Info) Description 06/11/2023 Telephone Family Practice 65 [facility], [place] [address] [place] [phone] Benny Waite 293 [place], [place] [phone] Appointment Allergies Active Allergy Reactions Criticality Noted [...] Oral Tablet Extended Release 24 Hour (toPROL XL)Indications:Lubricating Engineer gunjan atrial fibrillation (HCC),CHF (congestive heart failure), NYHA class I, chronic, diastolic (HCC) TAKE ONE-HALF TABLET BY MOUTH IN THE MORNING 45 Tablet 3 02/22/2023 02/22/2024 Active Neomycin-Polymyxin- HC 3.5-46742-3 Otic SolutionIndications :Other infective acute otitis externa [...] CHF (congestive heart failure) 11/16/2022 Atherosclerosis of zuni co 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 pectoris 08/11/2022 Severe tricuspid regurgitation 08/11/2022 Gout, arthropathy 07/20/2022 Severe obesity with body mas s index (BMI) of 35.0 to 39.9 with serious comorbidity 04/24/2022 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 02/05/2022 Permanent atrial fibrillation 12/22/2021 Overview: Added automatically from request for surgery [id number] Current moderate episode of major depressive disorder [...] mRNA, LNP-s, No Pre serve, 2-Dose Series ([employer]) 05/14/2021 COVID-19, LNP-s, No Preserve , Robbie-sucrose, Ages 12+ (Pfizer) 11/04/2021 COVID-19, MRNA-LNP, 23-24, P F, 30 MCG/0.3 mL, 12 YRS AND ABOVE, IM (LOOKK-Comirnat) 04/16/2023 Covid-19, Mrna, Lnp-s, Pf, B ivalent, [...] 8:40 AM EST Office Visit Family Practice [address] [place] [address] 293 [place] [address] Benny Waite DO 293 [place] [address] 06/16/2023 10:30 AM EST Office Visit Cardiology, [facility] 132 [place] [address] Ale Leon CRNP [address] [place] [address] 07/07/2023 9:30 AM EST Telemedicine Interventional Pain Center, [facility] 132 [place] [address] Luann Mcgrath PA-C [address] [place] [address] 08/25/2023 9:40 AM EDT Office Visit Family [address] 293 [facility] [place] [phone] Benny Waite, 293 [place] [address] 12/21/2023 11:00 AM EDT Nurse Only Ancillary [address], [place] 293 [facility] [place] [address] College, Nurse Annual Wellness Visit [address] [facility] 293 [place] [address] 01/05/2024 8:30 AM EDT Office Visit Cardiology, [facility] 132 [facility] [place], [place] [phone] Franco Mcgregor MD [address] [place] [address] Health Maintenance Due Date Last [...] this encounter Medical Devices Implanted Type Area Technical Support Representative Device Identifier Shelf Expiration Date Model / Serial / Lot Device Watchman Flx 35mm - [id number] Implanted:Qty: 1 on 02/05/2022 by Diamond Teran IV, MD at [facility] [place] [employer] : INTRV CARD [id number] 10/20/2024 [id number] 50 / / [id number] Cath Thermodilution 6fr - [id number] Implanted:Qty: 1 on 07/31/2022 by Franco Mcgregor MD at [facility] [place] [employer] [id number] 04/30/2024 [id number] / / [id number] Clip Delivery Sytem G4 Xtw - [id number] Implanted:Qty: 1 on 11/16/2022 at [facility] [place] [employer] [id number] 09/10/2023 [id number] / / [id number] documented as of this encounter Advance Directives Latest Code Status on File Code Status Date Activated Date Inactivated Comments Full Code 11/16/2022 4:24 PM 11/17/2022 8:54 PM This o rder reflects the patients wishes and were consensually [...] and were consensually agreed upon. Care Teams Sales And Leasing Agent Relationship Specialty Start Date End Date Benny Waite DO [address] [place] [address] PCP - General Internal Medicine 04/03/21 documented as of this encounter
--- NOTE | 2023-07-13 03:22 | CT Scan Report ---
Exam(s): CT HEAD Without Contrast EXAM: CT Head Without Intravenous Contrast CLINICAL HISTORY: Reason for exam: confusion. TECHNIQUE: Axial computed tomography images of the head/brain without intravenous contrast. CTDI is 37.01 mGy and DLP is 625.8 mGy-cm. Automated exposure control was utilized for the study. A dose lowering technique was utilized adhering to the principles of ALARA. COMPARISON: 05/24/2013 MRI examination. FINDINGS: Brain: Moderate generalized brain atrophy. No hemorrhage. No significant white matter disease. Ventricles: Unremarkable. No ventriculomegaly. Bones/joints: Unremarkable. No acute fracture. Soft tissues: Unremarkable. Sinuses: Unremarkable as visualized. No acute sinusitis. Mastoid air cells: Unremarkable as visualized. No mastoid effusion. Other findings: Decreased attenuation within the deep, like compatible with microangiopathic disease. IMPRESSION: Chronic changes as described with no acute intracranial hemorrhage or space-occupying lesion. Electronically signed by: Kell Zeng MD 07/13/23 03:21 AM
[2023-07-13] MEDS ORDERED: METOPROLOL TARTRATE 1 MG/ML VIAL IV STA (03:47)
[2023-07-13] MEDS ORDERED: POTASSIUM CHLORIDE CRTAB 20 MEQ TABCR PO STA (03:47)
[2023-07-13 04:11] LABS: Magnesium 1.9 mg/dl (1.7-2.4)
[2023-07-13] MEDS ORDERED: OLANZapine 10 MG/2.1 ML SDV IM PRN (04:26)
--- NOTE | 2023-07-13 04:48 | Emergency Department Note ---
Impression & Plan Hypoxia, Delirium, Pleural effusion, Multifocal PVCs with pairing Admit to the [facility] ED Provider Note NAME: ASUNCION MENSAH AGE: 82 SEX: Male INFORMANT: Patient ED PROVIDER(S): Patricia Templeton DO CHIEF COMPLAINT: Fall and confusion PLAN: Disposition: Admit to the [facility] MEDICAL DECISION MAKING: This is an 82-year-old male patient who presents to the emergency department from home after suffering multiple falls today and having increased confusion. The family thought he might be having a bad reaction to newly prescribed medication duloxetine. On presentation to the emergency department, the patient is hypoxic. Chest x-ray shows evidence of a new left-sided pleural effusion. bus monitor reveals multifocal PVCs with couplets. CT scan of the brain was unremarkable. Laboratory studies reveal no leukocytosis. H&H are stable. Renal function is normal. Glucose is normal. The patient remains moderately confused here in the emergency department. Patient remains on 2 L of supplemental oxygen to maintain O2 saturations greater than 90%. Care/management discussed with: manager transition and the [facility]. Triage Nursing notes: Reviewed and agree with them. Vital Signs: reviewed and remarkable for hypoxia Additional History obtained from: EMS Differential Diagnosis: Medication side effects, CVA, hypoglycemia, pneumonia, CHF Diagnostics, independently interpreted by me: ECG: A-fib with PVCs and T wave inversion in the anterior and lateral leads. Cardiac Monitoring: A-fib at a rate of 82 with multifocal PVCs and couplets Imaging studies: Significant cardiomegaly with a large left-sided pleural effusion HPI: 82 year old Male arrives for evaluation of confusion. Family noted some increased confusion over the past couple of days and the patient had multiple falls throughout the day today. They are concerned that he is having a reaction to a newly prescribed medication a couple weeks ago-duloxetine PAST MEDICAL HISTORY: See Below, PAST SURGICAL HISTORY: See Below, SOCIAL HISTORY: See Below, HOME MEDICATIONS: See list ALLERGIES: See list VITALS: See Below PHYSICAL EXAMINATION: HEENT: Head - normocephalic and atraumatic. Pupils are equal, round, and reactive to light. Extraocular eye muscles are intact and sclera are anicteric. Ears - bilaterally patent canals with noninjected tympanic membranes and no evidence of hemotympanum. Nose - moist nasal mucosa without discharge. Mouth - moist buccal mucosa. Oropharynx is nonerythematous and there is no tonsillar exudate or edema noted. Neck: Supple; no JVD, nuchal rigidity, cervical lymphadenopathy, or auscultated bruits. Heart: Irregularly irregular rhythm with a controlled rate. There is a normal S1 and S2 with no murmurs, clicks, or gallops appreciated. Lungs: Clear to auscultation bilaterally with no wheezes, rales, or rhonchi. Abdomen: Soft, completely nontender, nondistended, with good bowel sounds. There are no palpable pulsatile masses or hepatosplenomegaly. There is no guarding, rigidity, or rebound noted. Extremities: No evidence of cyanosis, clubbing, or edema. There are easily palpable peripheral pulses. Neuro:The patient is awake and alert, oriented to day, time, and place. Muscle strength is 5/5 in all 4 extremities. The patient has equal hydrogen cell tender strength and equal pedal push and pull. There are no cerebellar signs. Emergency department treatment: bus monitor, supplemental oxygen Emergency department course: The patient was evaluated in room B-9. A complete history and physical was performed. Laboratory studies were drawn as above. Patient a portable chest x-ray. An order was placed for continuous cardiac monitoring. The patient was in a A-fib at a rate of 82. A twelve-lead EKG was obtained as described above. Patient went for CT scan of the head as described above I discussed the case with the [facility] and they will evaluate for further inpatient care. Past Med/Surg History Medical History Osteoarthritis History of kidney stones Rectal bleeding reason for scheduled colonoscopy On anticoagulant therapy eliquis bid Atrial fibrillation on eliquis bid--follows with Dr. Barraza History of amputation of left hand HTN (hypertension) Sleep apnea does not use bipap as ordered Surgical History Amputation of left hand History of lumbar discectomy History of appendectomy History of tooth extraction all top teeth removed History of tonsillectomy and adenoidectomy History of bilateral cataract extraction History of colonoscopy Family History Other No family history of adverse response to anesthesia No pertinent family history Social History Smoking Status: Former smoker Tobacco Type: Cigarettes Second Hand Exposure: No; Do You Dip or Chew Tobacco: No; Hx Alcohol Use: No Hx Substance Use: No Preferred Language: Vincentian Communication Ability: Effective Yarn Man Required: No Beliefs That Will Affect Care: None Current Living Situation: Spouse Current Living Situation Comment: Has dementia Other Information That Helps Us Care for You: No Feels Safe at Home: Yes Safety Concerns: Afraid for Self Assistive Devices: None Allergies Allergies Allergy/AdvReac Type Severity Reaction Status Date / Time adhesive Allergy Mild BLISTER Verified 06/09/21 18:11 SKIN levofloxacin [From Levaquin] Allergy Unknown CAN'T Verified 06/09/21 18:11 REMEMBER duloxetine [From Cymbalta] AdvReac Intermediate confusion Verified 07/13/23 06:49 Home Meds Home Medications Medication Instructions Recorded Confirmed metoprolol succinate 25 mg 12.5 mg PO QAM 01/11/19 07/13/23 tablet,extended release 24 hr finasteride 5 mg tablet 5 mg PO QAM 06/09/21 07/13/23 gabapentin 300 mg capsule See Rx Instructions .Route .COMPLEX 06/09/21 07/13/23 acetaminophen 500 mg tablet 1,000 mg PO AMPM 07/13/23 07/13/23 allopurinol 300 mg tablet 300 mg PO QAM 07/13/23 07/13/23 aspirin 81 mg chewable tablet 81 mg PO QAM 07/13/23 07/13/23 buspirone 5 mg tablet 5 mg PO AMHS 07/13/23 07/13/23 docusate sodium 100 mg capsule 100 mg PO BID 07/13/23 07/13/23 duloxetine 30 mg capsule,delayed 30 mg PO DAILY 07/13/23 07/13/23 release meclizine 12.5 mg tablet 12.5 mg PO BID PRN Dizziness 07/13/23 07/13/23 tramadol 50 mg tablet 50 mg PO Q6 PRN pain,severe 07/13/23 07/13/23 Results & Data (ED) Vital Signs Vital Signs - 24 hr 07/12/23 23:07 07/12/23 23:07 07/12/23 23:08 Temperature 36.9 C Temperature Source Oral Pulse Rate 82 83 77 Pulse Rate from SpO2 Sensor 83 Pulse Rhythm Regular Pulse Strength Normal Respiratory Rate 19 18 Respiratory Effort / Characteristics Non-Labored Spontaneous Respiratory Depth Normal Respiratory Pattern Regular Blood Pressure 137/98 137/98 Blood Pressure Mean 111 111 Blood Pressure Position Sitting Pulse Oximetry 94 96 Oxygen Delivery Method Room Air Room Air Oxygen Flow Rate Sepsis Recent Fever Within 48 Hours No Sepsis New/Unexplained Change in Mental Status N/A Sepsis Action Taken by Nursing No Action Required 07/12/23 23:11 07/12/23 23:31 07/12/23 23:58 Temperature Temperature Source Pulse Rate 87 77 82 Pulse Rate from SpO2 Sensor 80 82 Pulse Rhythm Regular Pulse Strength Respiratory Rate 20 20 20 Respiratory Effort / Characteristics Respiratory Depth Respiratory Pattern Blood Pressure 181/132 H 158/87 H Blood Pressure Mean 148 110 Blood Pressure Position Pulse Oximetry 94 90 90 Oxygen Delivery Method Room Air Room Air Nasal Cannula Oxygen Flow Rate 1 Sepsis Recent Fever Within 48 Hours Sepsis New/Unexplained Change in Mental Status Sepsis Action Taken by Nursing 07/12/23 23:58 07/13/23 00:00 07/13/23 00:30 Temperature Temperature Source Pulse Rate 71 76 Pulse Rate from SpO2 Sensor 73 78 Pulse Rhythm Pulse Strength Respiratory Rate 22 22 Respiratory Effort / Characteristics Respiratory Depth Respiratory Pattern Blood Pressure 152/107 H 177/124 H Blood Pressure Mean 122 141 Blood Pressure Position Pulse Oximetry 94 94 96 Oxygen Delivery Method Nasal Cannula Nasal Cannula Nasal Cannula Oxygen Flow Rate 1 1 1 Sepsis Recent Fever Within 48 Hours Sepsis New/Unexplained Change in Mental Status Sepsis Action Taken by Nursing 07/13/23 01:01 07/13/23 01:30 07/13/23 02:01 Temperature Temperature Source Pulse Rate 77 84 72 Pulse Rate from SpO2 Sensor 75 85 79 Pulse Rhythm Pulse Strength Respiratory Rate 22 19 22 Respiratory Effort / Characteristics Respiratory Depth Respiratory Pattern Blood Pressure 160/111 H 155/104 H 157/105 H Blood Pressure Mean 127 121 122 Blood Pressure Position Pulse Oximetry 96 97 97 Oxygen Delivery Method Nasal Cannula Nasal Cannula Nasal Cannula Oxygen Flow Rate 1 1 1 Sepsis Recent Fever Within 48 Hours Sepsis New/Unexplained Change in Mental Status Sepsis Action Taken by Nursing 07/13/23 02:30 07/13/23 03:04 07/13/23 03:14 Temperature Temperature Source Pulse Rate 79 83 82 Pulse Rate from SpO2 Sensor 74 77 Pulse Rhythm Pulse Strength Respiratory Rate 22 22 Respiratory Effort / Characteristics Respiratory Depth Respiratory Pattern Blood Pressure 154/97 H 160/90 H Blood Pressure Mean 116 113 Blood Pressure Position Pulse Oximetry 97 97 Oxygen Delivery Method Nasal Cannula Nasal Cannula Oxygen Flow Rate 1 1 Sepsis Recent Fever Within 48 Hours Sepsis New/Unexplained Change in Mental Status Sepsis Action Taken by Nursing 07/13/23 03:31 07/13/23 04:00 07/13/23 04:01 Temperature Temperature Source Pulse Rate 87 77 84 Pulse Rate from SpO2 Sensor 76 80 Pulse Rhythm Pulse Strength Respiratory Rate 24 23 Respiratory Effort / Characteristics Respiratory Depth Respiratory Pattern Blood Pressure 187/150 H 165/122 H 165/122 H Blood Pressure Mean 162 136 Blood Pressure Position Pulse Oximetry 96 100 Oxygen Delivery Method Nasal Cannula Nasal Cannula Oxygen Flow Rate 1 1 Sepsis Recent Fever Within 48 Hours Sepsis New/Unexplained Change in Mental Status Sepsis Action Taken by Nursing 07/13/23 04:01 07/13/23 04:10 07/13/23 04:15 Temperature Temperature Source Pulse Rate 72 75 79 Pulse Rate from SpO2 Sensor 82 64 73 Pulse Rhythm Pulse Strength Respiratory Rate 22 22 22 Respiratory Effort / Characteristics Respiratory Depth Respiratory Pattern Blood Pressure 165/122 H 169/122 H 153/106 H Blood Pressure Mean 136 137 121 Blood Pressure Position Pulse Oximetry 100 99 98 Oxygen Delivery Method Nasal Cannula Nasal Cannula Nasal Cannula Oxygen Flow Rate 1 1 1 Sepsis Recent Fever Within 48 Hours Sepsis New/Unexplained Change in Mental Status Sepsis Action Taken by Nursing 07/13/23 04:16 07/13/23 04:34 Temperature Temperature Source Pulse Rate 79 79 Pulse Rate from SpO2 Sensor 70 Pulse Rhythm Pulse Strength Respiratory Rate 22 Respiratory Effort / Characteristics Respiratory Depth Respiratory Pattern Blood Pressure 153/106 H 158/117 H Blood Pressure Mean 130 Blood Pressure Position Pulse Oximetry 95 Oxygen Delivery Method Nasal Cannula Oxygen Flow Rate 1 Sepsis Recent Fever Within 48 Hours Sepsis New/Unexplained Change in Mental Status Sepsis Action Taken by Nursing Laboratory Data 07/14/23 06:15 07/14/23 06:15 Lab Results 07/12/23 07/12/23 Range/Units 23:11 23:15 WBC 7.13 (4.8-10.8) K/ul RBC 4.08 L (4.70-6.10) M/uL Hgb 14.6 (14.0-18.0) g/dl Hct 43.9 (42.0-52.0) % MCV 107.6 H (80.0-100.0) fL MCH 35.8 H (25.0-34.0) pg MCHC 33.3 (32.0-36.0) g/dL RDW Std Deviation 57.3 H (36.4-46.3) fL RDW Coeff of Neal 14.5 (11.5-14.5) % Plt Count 194 (130-400) K/uL MPV 9.7 (9.4-12.4) fL Immature Gran % (Auto) 0.3 % Neut % (Auto) 79.1 % Lymph % (Auto) 10.7 % Nance % (Auto) 9.3 % Eos % (Auto) 0.3 % Baso % (Auto) 0.3 % Neut # (Auto) 5.65 (1.40-6.50) K/uL Lymph # (Auto) 0.76 L (1.20-3.40) K/uL Nance # (Auto) 0.66 H (0.11-0.59) K/uL Eos # (Auto) 0.02 (0.00-0.50) K/uL Baso # (Auto) 0.02 (0.00-0.20) K/uL Immature Gran # (Auto) 0.02 (0.01-0.20) K/uL Sodium 141 (136-145) mmol/L Potassium 3.7 (3.5-5.1) mmol/L Chloride 107 (98-107) mmol/L Carbon Dioxide 26 (21-32) mmol/L Anion Gap 8 (3-11) BUN 23 (6-23) mg/dl Creatinine 0.94 (0.6-1.4) mg/dl Est Cr Clr Drug Dosing 64.5 ml/min Est GFR ( Amer) 85.9 ml/min Est GFR (Non-Af Amer) 74.2 ml/min BUN/Creatinine Ratio 24.5 H (10-20) Glucose 103 H (70-99(Fasting)) mg/dl Calcium 9.1 (8.6-10.3) mg/dl Magnesium 1.9 (1.7-2.4) mg/dl Total Bilirubin 1.1 H (0.2-1.0) mg/dl AST 31 (13-39) U/L ALT 39 (7-52) U/L Alkaline Phosphatase 68 (34-104) U/L Troponin I High Sens 11.2 (0-20) pg/ml B-Natriuretic Peptide 407 H (0-100) pg/ml Total Protein 6.8 (6.0-8.3) gm/dl Albumin 3.8 (3.4-5.0) gm/dl Globulin 3.0 (2.5-4.0) gm/dl Albumin/Globulin Ratio 1.3 (0.9-2) TSH 4.302 (0.300-4.500) uIu/ml Adenovirus (PCR) Not Detected (NotDetected) B. pertussis DNA (PCR) Not Detected (NotDetected) B.parapertussis DNA PCR Not Detected (NotDetected) C. pneumoniae DNA (PCR) Not Detected (NotDetected) Coronavirus OC43 (PCR) Not Detected (NotDetected) Coronavirus HKU1 (PCR) Not Detected (NotDetected) Coronavirus 229E (PCR) Not Detected (NotDetected) SARS-CoV-2 (PCR) Not Detected (NotDetected) Coronavirus NL63 (PCR) Not Detected (NotDetected) Human Metapneumovir PCR Not Detected (NotDetected) Influenza Type A (PCR) Not Detected (NotDetected) Influenza Type B (PCR) Not Detected (NotDetected) M. pneumoniae (PCR) Not Detected (NotDetected) Parainfluenza 1 (PCR) Not Detected (NotDetected) Parainfluenza 2 (PCR) Not Detected (NotDetected) Parainfluenza 3 (PCR) Not Detected (NotDetected) Parainfluenza 4 (PCR) Not Detected (NotDetected) RSV (PCR) Not Detected (NotDetected) Entero/Rhino (PCR) Not Detected (NotDetected) Administered Medications Acetaminophen (Acetaminophen 500 Mg Tab) 1,000 mg PO BID [facility] Stop: 08/12/23 08:59 Last Admin: 07/14/23 08:38 Dose: 1,000 mg Documented By: MAIKEL Co-signed By: MADINA Admin: 07/13/23 21:48 Dose: 1,000 mg Documented By: Admin: 07/13/23 08:21 Dose: 1,000 mg Documented By: WILMAN Allopurinol (Allopurinol 300 Mg Tab) 300 mg PO QAM [facility] Stop: 08/12/23 08:59 Last Admin: 07/14/23 08:30 Dose: 300 mg Documented By: MAIKEL Co-signed By: MADINA Admin: 07/13/23 08:22 Dose: 300 mg Documented By: WILMAN Aspirin (Aspirin 81 Mg Ectab) 81 mg PO QAM [facility] Stop: 08/12/23 08:59 Last Admin: 07/14/23 08:30 Dose: 81 mg Documented By: MAIKEL Co-signed By: MADINA Admin: 07/13/23 08:22 Dose: 81 mg Documented By: WILMAN Buspirone HCl (Buspirone 5 Mg Tab) 5 mg PO AMHS [facility] Stop: 08/12/23 08:59 Last Admin: 07/14/23 08:31 Dose: 5 mg Documented By: MAIKEL Co-signed By: MADINA Admin: 07/13/23 21:48 Dose: 5 mg Documented By: Admin: 07/13/23 08:22 Dose: 5 mg Documented By: WILMAN Docusate Sodium (Docusate Sodium 100 Mg Cap) 100 mg PO BID [facility] Stop: 08/12/23 08:59 Last Admin: 07/14/23 08:38 Dose: 100 mg Documented By: MAIKEL Co-signed By: MADINA Admin: 07/13/23 21:48 Dose: 100 mg Documented By: Admin: 07/13/23 08:22 Dose: 100 mg Documented By: WILMAN Enoxaparin Sodium (Enoxaparin Inj 40 Mg/0.4 Ml Syr) [facility] [place] Stop: 08/12/23 08:59 Last Admin: 07/14/23 08:31 Dose: 40 mg Documented By: MAIKEL Co-signed By: MADINA Admin: 07/13/23 08:22 Dose: 40 mg Documented By: WILMAN Finasteride (Finasteride 5 Mg Tab) [facility] [place] Stop: 08/12/23 08:59 Last Admin: 07/14/23 08:32 Dose: 5 mg Documented By: MAIKEL Co-signed By: MADINA Admin: 07/13/23 08:23 Dose: 5 mg Documented By: WILMAN Gabapentin (Gabapentin 300 Mg Cap) 300 mg PO PM [facility] Stop: 08/12/23 20:59 Last Admin: 07/13/23 21:48 Dose: 300 mg Documented By: AUBRIE Gabapentin (Gabapentin 600 Mg Tab) 600 mg PO [facility] Stop: 08/12/23 08:59 Last Admin: 07/14/23 08:34 Dose: 600 mg Documented By: MAIKEL Co-signed By: MADINA Admin: 07/13/23 08:23 Dose: 600 mg Documented By: WILMAN Lidocaine (Lidocaine 5% 1 Patch) 1 patch TD [facility] Stop: 08/12/23 04:59 Last Admin: 07/14/23 08:33 Dose: 1 patch Documented By: MAIKEL Co-signed By: MADINA Admin: 07/13/23 05:29 Dose: 1 patch Documented By: DEEPAK Lisinopril (Lisinopril 2.5 Mg Tab) 2.5 mg PO [facility] Stop: 08/12/23 08:59 Last Admin: 07/14/23 08:34 Dose: 2.5 mg Documented By: MAIKEL Co-signed By: MADINA Admin: 07/13/23 10:00 Dose: 2.5 mg Documented By: WILMAN Metoprolol Succinate (Metoprolol Succ 25mg Ext Rel Tab) 25 mg PO [facility] Stop: 08/13/23 08:59 Last Admin: 07/14/23 08:34 Dose: 25 mg Documented By: MAIKEL Co-signed By: MADINA Miscellaneous (Remove Lidoderm Patch) 1 each N/A DAILY@2100 [facility] Stop: 08/12/23 20:59 Last Admin: 07/13/23 21:48 Dose: 1 each Documented By: AUBRIE Oxycodone HCl (Oxycodone Hcl Ir 5 Mg Tab (Immediate Release)) 5 mg PO Q4H PRN PRN Reason: Pain Stop: 07/27/23 04:57 Last Admin: 07/13/23 13:33 Dose: 5 mg Documented By: MADINA Discontinued Medications Furosemide (Furosemide Inj 20 Mg/2 Ml Vial) 20 mg IV ONE ONE Stop: 07/13/23 04:53 Last Admin: 07/13/23 05:29 Dose: 20 mg Documented By: DEEPAK Furosemide (Furosemide Inj 20 Mg/2 Ml Vial) 20 mg IV ONE ONE Stop: 07/13/23 12:34 Last Admin: 07/13/23 12:47 Dose: 20 mg Documented By: WILMAN Furosemide (Furosemide Inj 20 Mg/2 Ml Vial) 20 mg IV ONE ONE Stop: 07/14/23 11:09 Last Admin: 07/14/23 11:48 Dose: 20 mg Documented By: MAIKEL Co-signed By: MADINA Magnesium Sulfate/Dextrose (Magnesium Sulfate / D5w) 1 gm in 100 mls @ 50 mls/hr IV ONE ONE Stop: 07/13/23 10:44 Last Infusion: 07/13/23 11:11 Dose: Infused Documented By: Admin: 07/13/23 09:30 Dose: 50 mls/hr Documented By: WILMAN Ipratropium [place] (Ipratropium [place] Neb Soln 0.02% 0.5mg/2.5ml Vial) 0.5 mg INH NOW STA Stop: 07/13/23 04:53 Last Admin: 07/13/23 05:36 Dose: 0.5 mg Documented By: FRANKLIN Levalbuterol HCl (Levalbuterol 1.25 Mg/3 Ml Neb) 1.25 mg NEB NOW STA Stop: 07/13/23 04:53 Last Admin: 07/13/23 05:36 Dose: 1.25 mg Documented By: FRANKLIN Metoprolol Succinate (Metoprolol Succ 25mg Ext Rel Tab) 12.[facility] [place] Stop: 08/12/23 08:59 Last Admin: 07/13/23 08:23 Dose: 12.5 mg Documented By: WILMAN Metoprolol Succinate (Metoprolol Succ 25mg Ext Rel Tab) 12.5 mg PO ONE ONE Stop: 07/13/23 09:01 Last Admin: 07/13/23 10:01 Dose: 12.5 mg Documented By: WILMAN Metoprolol Tartrate (Metoprolol Tartrate 1 Mg/Ml Vial) 2.5 mg IV NOW STA Stop: 07/13/23 03:48 Last Admin: 07/13/23 04:01 Dose: 2.5 mg Documented By: DEEPAK Nitroglycerin (Nitroglycerin Sl 0.4 Mg/Tab Tab) 0.4 mg SL NOW STA Stop: 07/13/23 04:53 Last Admin: 07/13/23 05:43 Dose: 0.4 mg Documented By: FRANKLIN Potassium Chloride (Potassium Chloride Crtab 20 Meq Tabcr) 40 meq PO NOW STA Stop: 07/13/23 03:48 Last Admin: 07/13/23 04:01 Dose: 40 meq Documented By: DEEPAK Imaging Data Radiologist's Impression: Head CT 07/13/23 00:53 Exam(s): CT HEAD Without Contrast EXAM: CT Head Without Intravenous Contrast CLINICAL HISTORY: Reason for exam: confusion. TECHNIQUE: Axial computed tomography images of the head/brain without intravenous contrast. CTDI is 37.01 mGy and DLP is 625.8 mGy-cm. Automated exposure control was utilized for the study. A dose lowering technique was utilized adhering to the principles of ALARA. COMPARISON: 05/24/2013 MRI examination. FINDINGS: Brain: Moderate generalized brain atrophy. No hemorrhage. No significant white matter disease. Ventricles: Unremarkable. No ventriculomegaly. Bones/joints: Unremarkable. No acute fracture. Soft tissues: Unremarkable. Sinuses: Unremarkable as visualized. No acute sinusitis. Mastoid air cells: Unremarkable as visualized. No mastoid effusion. Other findings: Decreased attenuation within the deep, like compatible with microangiopathic disease. IMPRESSION: Chronic changes as described with no acute intracranial hemorrhage or space-occupying lesion. Electronically signed by: Kell Zeng MD 07/13/23 03:21 AM Discharge Plan Visit Data Chief Complaint: Confusion Stated Complaint: Confusion, Frequent Falls ED Provider: Patricia Templeton Discharge Problem: Hypoxia, Delirium, Pleural effusion, Multifocal PVCs with pairing Patient Disposition: Admitted As Inpatient Discharge Instructions Interventions: ED Discharge Assessment Last Done: 07/13/23 06:10
[2023-07-13] MEDS ORDERED: NITROGLYCERIN SL 0.4 MG/TAB TAB SL STA (04:52)
[2023-07-13] MEDS ORDERED: LEVALBUTEROL 1.25 MG/3 ML NEB NEB STA (04:52)
[2023-07-13] MEDS ORDERED: XOPENEX/ATROVENT 1.25mg/0.5MG NEB COMBO NEB STA (04:52)
[2023-07-13] MEDS ORDERED: IPRATROPIUM BROMIDE NEB SOLN 0.02% 0.5MG/2.5ML VIAL INH STA (04:52)
[2023-07-13] MEDS ORDERED: FUROSEMIDE INJ 20 MG/2 ML VIAL IV ONE ×2 (04:52→12:33)
--- NOTE | 2023-07-13 04:54 | History & Physical Report ---
Date of Service July 13, 2023 Assessment & Plan (1) Decompensated heart failure: Plan: Possibly from uncontrolled blood pressure secondary to uncontrolled back pain, history sacroiliitis, past history of back surgery History diastolic dysfunction Chest pain from uncontrolled blood pressure Rule out ACS given nitroglycerin relief at the ER Episodic encephalopathy Multifactorial: Uncontrolled blood pressure ? New Cymbalta Rx Rule out UTI valvular heart disease (severe MR status post MitraClip surgery, hx TR) A-fib status post Watchman device, rate controlled hx PVD DEX/CSA BiPAP intolerant prediabetes, hemoglobin A1c of 5.6 last year hx BPH MCTD as per records anxiety/mood disorder, at baseline PCU Diuretic Rx Titrate beta-winston to suppress ectopy cautiously given bifascicular block Initiate lisinopril Follow troponin TTE, Cardiology consult Re: Chest pain, CHF N.p.o. until patient seen by cardiology in anticipation of ischemic workup Analgesia, Lidoderm patch trial for back pain MRI lumbosacral spine if patient agreeable (Patient refused outpatient pain management recommendation.) Stop Cymbalta and add to ADR list Check UA DVT prophylaxis per Lovenox subcu Full code Patient requests for daughter to be updated of progress. Ms. Clara Oviedo, contact #[phone]. Text document was generated using [employer] voice recognition software. It may contain grammatical or spelling errors. Kindly contact undersigned for clarification of any documentation item in question. History of Present Illness Chief Complaint: Dizziness as per patient Confusion as per family Primary Care Provider: Benny Waite DO History obtained from patient, ER provider, and records. Medical history significant for chronic diastolic heart failure (EF 55%, TTE 2022), valvular heart disease (severe MR status post MitraClip surgery, hx TR), A-fib status post Watchman device, PVD, DEX/CSA BiPAP intolerant,, hypertension, prediabetes, GERD, BPH, MCTD as per records, hx vertigo, sacroiliitis, anxiety/mood disorder. Last confinement 2014 under orthopedic spine service for lumbar laminectomy for severe lumbar spine stenosis. Unremarkable postop course. Patient with shortness of breath symptoms worsen exertion over the last few weeks. Chronic sore throat symptoms with congestion. Daily substernal pain across his chest. Bilateral leg swelling with possible weight gain. No unusual cough symptoms. Claims to be compliant with home medications. Pulse ox O2 sats of 70s documented at home at 1 time. Patient seen at [facility] cardiology office on follow-up last June 16 following ER visits for chest pain/SOB. TTE contemplated. Patient seen at [facility] pain management for follow-up for right sacroiliitis pain last week. Last right SI joint injection was last month. Patient declined lumbosacral MRI and additional injection recommendation. Cymbalta course initiated outpatient to help with pain. Patient with worsening symptoms since yesterday. Dizziness described as both lightheadedness and spinning. No headache symptoms. PCP made aware of symptoms. PCP making arrangements for patient to be seen by cath lab manager for follow-up outpatient. Mucolytic prescribed outpatient for cough symptoms. Patient noted to be more confused than usual. Denies headache, abdominal pain, dysuria symptoms. New Cymbalta Rx for back pain not helping as per patient. SBP 180s upon arrival at the ER. Multiple PVCs noted on the monitor. Chest pain improved with nitroglycerin administration at the ER. 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 Allergies Allergy/AdvReac Type Severity Reaction Status Date / Time adhesive Allergy Mild BLISTER Verified 06/09/21 18:11 SKIN levofloxacin [From Levaquin] Allergy Unknown CAN'T Verified 06/09/21 18:11 REMEMBER duloxetine [From Cymbalta] AdvReac Intermediate confusion Verified 07/13/23 06:49 Home Medications Medication Instructions Recorded Confirmed Type metoprolol succinate 25 mg 12.5 mg PO QAM 01/11/19 07/13/23 History tablet,extended release 24 hr finasteride 5 mg tablet 5 mg PO QAM 06/09/21 07/13/23 History gabapentin 300 mg capsule See Rx Instructions .Route .COMPLEX 06/09/21 07/13/23 History acetaminophen 500 mg tablet 1,000 mg PO AMPM 07/13/23 07/13/23 History allopurinol 300 mg tablet 300 mg PO QAM 07/13/23 07/13/23 History aspirin 81 mg chewable tablet 81 mg PO QAM 07/13/23 07/13/23 History buspirone 5 mg tablet 5 mg PO AMHS 07/13/23 07/13/23 History docusate sodium 100 mg capsule 100 mg PO BID 07/13/23 07/13/23 History duloxetine 30 mg capsule,delayed 30 mg PO DAILY 07/13/23 07/13/23 History release meclizine 12.5 mg tablet 12.5 mg PO BID PRN Dizziness 07/13/23 07/13/23 History tramadol 50 mg tablet 50 mg PO Q6 PRN pain,severe 07/13/23 07/13/23 History Past Med/Surg History Medical History Osteoarthritis History of kidney stones Rectal bleeding reason for scheduled colonoscopy On anticoagulant therapy eliquis bid Atrial fibrillation on eliquis bid--follows with Dr. Barraza History of amputation of left hand HTN (hypertension) Sleep apnea does not use bipap as ordered Surgical History Amputation of left hand History of lumbar discectomy History of appendectomy History of tooth extraction all top teeth removed History of tonsillectomy and adenoidectomy History of bilateral cataract extraction History of colonoscopy Family History Other No family history of adverse response to anesthesia No pertinent family history Social History Smoking Status: Former smoker Tobacco Type: Cigarettes Second Hand Exposure: No; Do You Dip or Chew Tobacco: No; Hx Alcohol Use: No Hx Substance Use: No Preferred Language: Divehi Communication Ability: Effective Guest Services Manager Required: No Beliefs That Will Affect Care: None Current Living Situation: Spouse Current Living Situation Comment: Has dementia Other Information That Helps Us Care for You: No Feels Safe at Home: Yes Safety Concerns: Afraid for Self Assistive Devices: Denture - Lower, Glasses and Walker Review of Systems Review of Systems: As per HPI, all other systems reviewed and negative Physical Exam Physical Exam: GENERAL: Slightly uncomfortable, obese, minimal respiratory distress SKIN: Normal color, warm HEENT: [place] palpebral conjunctivae, no ptosis, dry buccal mucosa, nasal cannula in place NECK : Supple, short neck, no tenderness CHEST : Decreased breath sounds, no tenderness HEART : irregular, systolic murmur ABDOMEN: Some distention, nontender BACK : Low back tenderness EXTREMITIES : Minimal LE swelling, no LE tenderness, left hand stump NEUROLOGIC : Coherent, no facial asymmetry, slightly hard of hearing, no other gross focality Results & Data Results & Data Vital Signs (Past 12 Hours) Vital Signs Temp Pulse Resp BP Pulse Ox O2 Del Method O2 Flow Rate 07/13/23 04:38 86 22 157/117 H 97 Nasal Cannula 1 07/13/23 04:34 79 22 158/117 H 95 Nasal Cannula 1 07/13/23 04:16 79 153/106 H 07/13/23 04:15 79 22 153/106 H 98 Nasal Cannula 1 07/13/23 04:10 75 22 169/122 H 99 Nasal Cannula 1 07/13/23 04:01 72 22 165/122 H 100 Nasal Cannula 1 07/13/23 04:01 84 165/122 H 07/13/23 04:00 77 23 165/122 H 100 Nasal Cannula 1 07/13/23 03:31 87 24 187/150 H 96 Nasal Cannula 1 07/13/23 03:14 82 07/13/23 03:04 83 22 160/90 H 97 Nasal Cannula 1 07/13/23 02:30 79 22 154/97 H 97 Nasal Cannula 1 07/13/23 02:01 72 22 157/105 H 97 Nasal Cannula 1 07/13/23 01:30 84 19 155/104 H 97 Nasal Cannula 1 07/13/23 01:01 77 22 160/111 H 96 Nasal Cannula 1 07/13/23 00:30 76 22 177/124 H 96 Nasal Cannula 1 07/13/23 00:00 71 22 152/107 H 94 Nasal Cannula 1 07/12/23 23:58 94 Nasal Cannula 1 07/12/23 23:58 82 20 158/87 H 90 Nasal Cannula 1 07/12/23 23:31 77 20 181/132 H 90 Room Air 07/12/23 23:11 87 20 94 Room Air 07/12/23 23:08 36.9 C 77 18 137/98 96 Room Air 07/12/23 23:07 83 19 137/98 94 Room Air 07/12/23 23:07 82 Laboratory Results Laboratory Results WBC 7.13 K/ul (4.8-10.8) 07/12/23 23:15 RBC 4.08 M/uL (4.70-6.10) L 07/12/23 23:15 Hgb 14.6 g/dl (14.0-18.0) 07/12/23 23:15 Hct 43.9 % (42.0-52.0) 07/12/23 23:15 MCV 107.6 fL (80.0-100.0) H 07/12/23 23:15 MCH 35.8 pg (25.0-34.0) H 07/12/23 23:15 MCHC 33.3 g/dL (32.0-36.0) 07/12/23 23:15 RDW Std Deviation 57.3 fL (36.4-46.3) H 07/12/23 23:15 RDW Coeff of Neal 14.5 % (11.5-14.5) 07/12/23 23:15 Plt Count 194 K/uL (130-400) 07/12/23 23:15 MPV 9.7 fL (9.4-12.4) 07/12/23 23:15 Immature Gran % (Auto) 0.3 % 07/12/23 23:15 Neut % (Auto) 79.1 % 07/12/23 23:15 Lymph % (Auto) 10.7 % 07/12/23 23:15 Gray % (Auto) 9.3 % 07/12/23 23:15 Eos % (Auto) 0.3 % 07/12/23 23:15 Baso % (Auto) 0.3 % 07/12/23 23:15 Neut # (Auto) 5.65 K/uL (1.40-6.50) 07/12/23 23:15 Lymph # (Auto) 0.76 K/uL (1.20-3.40) L 07/12/23 23:15 Gray # (Auto) 0.66 K/uL (0.11-0.59) H 07/12/23 23:15 Eos # (Auto) 0.02 K/uL (0.00-0.50) 07/12/23 23:15 Baso # (Auto) 0.02 K/uL (0.00-0.20) 07/12/23 23:15 Immature Gran # (Auto) 0.02 K/uL (0.01-0.20) 07/12/23 23:15 Sodium 141 mmol/L (136-145) 07/12/23 23:15 Potassium 3.7 mmol/L (3.5-5.1) 07/12/23 23:15 Chloride 107 mmol/L (98-107) 07/12/23 23:15 Carbon Dioxide 26 mmol/L (21-32) 07/12/23 23:15 Anion Gap 8 (3-11) 07/12/23 23:15 BUN 23 mg/dl (6-23) 07/12/23 23:15 Creatinine 0.94 mg/dl (0.6-1.4) 07/12/23 23:15 Est Cr Clr Drug Dosing 64.5 ml/min 07/12/23 23:15 Est GFR ( Amer) 85.9 ml/min 07/12/23 23:15 Est GFR (Non-Af Amer) 74.2 ml/min 07/12/23 23:15 BUN/Creatinine Ratio 24.5 (10-20) H 07/12/23 23:15 Glucose 103 mg/dl (70-99(Fasting)) H 07/12/23 23:15 Calcium 9.1 mg/dl (8.6-10.3) 07/12/23 23:15 Magnesium 1.9 mg/dl (1.7-2.4) 07/12/23 23:15 Total Bilirubin 1.1 mg/dl (0.2-1.0) H 07/12/23 23:15 AST 31 U/L (13-39) 07/12/23 23:15 ALT 39 U/L (7-52) 07/12/23 23:15 Alkaline Phosphatase 68 U/L (34-104) 07/12/23 23:15 Troponin I High Sens 11.2 pg/ml (0-20) 07/12/23 23:15 B-Natriuretic Peptide 407 pg/ml (0-100) H 07/12/23 23:15 Total Protein 6.8 gm/dl (6.0-8.3) 07/12/23 23:15 Albumin 3.8 gm/dl (3.4-5.0) 07/12/23 23:15 Globulin 3.0 gm/dl (2.5-4.0) 07/12/23 23:15 Albumin/Globulin Ratio 1.3 (0.9-2) 07/12/23 23:15 TSH 4.302 uIu/ml (0.300-4.500) 07/12/23 23:15 Adenovirus (PCR) Not Detected (NotDetected) 07/12/23 23:11 B. pertussis DNA (PCR) Not Detected (NotDetected) 07/12/23 23:11 B.parapertussis DNA PCR Not Detected (NotDetected) 07/12/23 23:11 C. pneumoniae DNA (PCR) Not Detected (NotDetected) 07/12/23 23:11 Coronavirus OC43 (PCR) Not Detected (NotDetected) 07/12/23 23:11 Coronavirus HKU1 (PCR) Not Detected (NotDetected) 07/12/23 23:11 Coronavirus 229E (PCR) Not Detected (NotDetected) 07/12/23 23:11 SARS-CoV-2 (PCR) Not Detected (NotDetected) 07/12/23 23:11 Coronavirus NL63 (PCR) Not Detected (NotDetected) 07/12/23 23:11 Human Metapneumovir PCR Not Detected (NotDetected) 07/12/23 23:11 Influenza Type A (PCR) Not Detected (NotDetected) 07/12/23 23:11 Influenza Type B (PCR) Not Detected (NotDetected) 07/12/23 23:11 M. pneumoniae (PCR) Not Detected (NotDetected) 07/12/23 23:11 Parainfluenza 1 (PCR) Not Detected (NotDetected) 07/12/23 23:11 Parainfluenza 2 (PCR) Not Detected (NotDetected) 07/12/23 23:11 Parainfluenza 3 (PCR) Not Detected (NotDetected) 07/12/23 23:11 Parainfluenza 4 (PCR) Not Detected (NotDetected) 07/12/23 23:11 RSV (PCR) Not Detected (NotDetected) 07/12/23 23:11 Entero/Rhino (PCR) Not Detected (NotDetected) 07/12/23 23:[address] 07/13/23 00:53 Exam(s): CT HEAD Without Contrast EXAM: CT Head Without Intravenous Contrast CLINICAL HISTORY: Reason for exam: confusion. TECHNIQUE: Axial computed tomography images of the head/brain without intravenous contrast. CTDI is 37.01 mGy and DLP is 625.8 mGy-cm. Automated exposure control was utilized for the study. A dose lowering technique was utilized adhering to the principles of ALARA. COMPARISON: 05/24/2013 MRI examination. FINDINGS: Brain: Moderate generalized brain atrophy. No hemorrhage. No significant white matter disease. Ventricles: Unremarkable. No ventriculomegaly. Bones/joints: Unremarkable. No acute fracture. Soft tissues: Unremarkable. Sinuses: Unremarkable as visualized. No acute sinusitis. Mastoid air cells: Unremarkable as visualized. No mastoid effusion. Other findings: Decreased attenuation within the deep, like compatible with microangiopathic disease. IMPRESSION: Chronic changes as described with no acute intracranial hemorrhage or space-occupying lesion. Electronically signed by: Kell Zeng MD 07/13/23 03:21 AM Diagnostic Findings Chest x-ray as per my interpretation cardiomegaly, congestion, left pleural effusion EKG as per my interpretation : Rate 75, A-fib, LAD, LAFB, RBBB, ST depression lateral leads
[2023-07-13] MEDS ORDERED: oxyCODONE HCL IR 5 MG TAB (IMMEDIATE RELEASE) PO PRN (04:58)
[2023-07-13] MEDS ORDERED: PROMETHAZINE HCL 6.25 MG in SODIUM CHLORIDE 0.9% 50 ML IV PRN (04:58)
[2023-07-13] MEDS: LIDOCAINE 5% 1 PATCH TD SCH (05:29)
[2023-07-13] MEDS ORDERED: NITROGLYCERIN SL 0.4 MG/TAB TAB SL PRN (06:10)
[2023-07-13] MEDS ORDERED: ACETAMINOPHEN 325 MG TAB PO PRN (06:10)
[2023-07-13] MEDS ORDERED: MECLIZINE 12.5 MG TAB PO PRN (06:10)
[2023-07-13 06:23] LABS: Basophils # (auto) 0.02 K/uL (0.00-0.20); Basophils % (auto) 0.3 %; Eosinophils # (auto) 0.05 K/uL (0.00-0.50); Eosinophils % (auto) 0.7 %; Hematocrit (blood only) 42.8 % (42.0-52.0); Immature Granulocytes # (auto) 0.02 K/uL (0.01-0.20); Immature Granulocytes % (auto) 0.3 %; Lymphocytes # (auto) 1.11 K/uL (1.20-3.40); Lymphocytes % (auto) 16.3 %; Mean Corpuscular Hemoglobin 37.1 pg (25.0-34.0); Mean Corpuscular Volume 105.9 fL (80.0-100.0); Monocytes # (auto) 0.62 K/uL (0.11-0.59); Monocytes % (auto) 9.1 %; Neutrophils # (auto) 5.01 K/uL (1.40-6.50); Neutrophils % (auto) 73.3 %; Platelet Count 196 K/uL (130-400); RDW Coefficient of Variation 14.3 % (11.5-14.5); RDW Standard Deviation 56.3 fL (36.4-46.3); Red Blood Count 4.04 M/uL (4.70-6.10); White Blood Count 6.83 K/ul (4.8-10.8)
[2023-07-13 06:28] LABS: BUN Creatinine Ratio 24.7 (10-20); Calcium 9.3 mg/dl (8.6-10.3); Chol HDL Ratio 2.6 (0-5); Est GFR (African American) 87.1 ml/min; Est GFR (Non-African American) 75.1 ml/min; Potassium 3.9 mmol/L (3.5-5.1)
[2023-07-13 06:35] LABS: Troponin I High Sensitivity 9.8 pg/ml (0-20)
[2023-07-13 06:37] LABS: Partial Thromboplastin Time 29 Seconds (21-31)
--- NOTE | 2023-07-13 07:20 | XRay Report ---
XR chest 1V portable HISTORY: weakness COMPARISON: Chest 06/10/2023. FINDINGS: There are low lung volumes. No pneumothorax. The heart remains enlarged. There is mild cent ral pulmonary vascular congestion without overt edema. Small left pleural effusion and left basilar d ensities have progressed in the interval. Degenerative changes within the shoulders. No acute fractur es identified. IMPRESSION: 1. Cardiomegaly with mild pulmonary vascular congestion. 2. A small left pleural effusion and left basilar densities have progressed. This could represent ate lectasis or pneumonia. ACT 112: Negative or not required by law. Electronically signed by: Preston Carmichael M.D. 07/13/2023 7:19 AM
[2023-07-13] MEDS: ACETAMINOPHEN 500 MG TAB PO SCH ×2 (08:21→21:48)
[2023-07-13] MEDS: ASPIRIN 81 MG ECTAB PO SCH (08:22)
[2023-07-13] MEDS: ENOXAPARIN INJ 40 MG/0.4 ML SYR SQ SCH (08:22)
[2023-07-13] MEDS: DOCUSATE SODIUM 100 MG CAP PO SCH ×2 (08:22→21:48)
[2023-07-13] MEDS: allopurinoL 300 MG TAB PO SCH (08:22)
[2023-07-13] MEDS: busPIRone 5 MG TAB PO SCH ×2 (08:22→21:48)
[2023-07-13] MEDS: FINASTERIDE 5 MG TAB PO SCH (08:23)
[2023-07-13] MEDS: GABAPENTIN 600 MG TAB PO SCH (08:23)
--- NOTE | 2023-07-13 08:30 | Cardiology Consultation ---
Date of Consultation July 13, 2023 Assessment & Plan (1) Decompensated heart failure: (2) Atrial fibrillation: (3) Multifocal PVCs with pairing: (4) Delirium: Plan Assessment: 82 year old male with several weeks of worsening dyspnea on exertion, weakness, falls and increased confusion. Concerns for superimposed infection vs heart failure. Plan: 1. Decompensated heart failure: initial Chest xray suggestive of increased vascular congestion and left pleural effusion. Repeat chest xray now shows left basilar densities have progressed, consider atelectasis or pneumonia. -Patient does not exhibit extensive hypervolemia on physical exam. Lungs with + Rhonci and wheezes throughout. Question superimposed pneumonia infection. Further investigation per primary team. Received one time dose of IV lasix today. Montior I&O and weights, echocardiogram pending and will consider further diuretic regimen at that time. -Continue Toprol xl and Lisinopril as part of HF regimen. 2. Persistent Atrial fibrillation -Not new, longstanding. -Continue on Toprol xl as part of rate control. -Patient is s/p watchman procedure and no longer on oral AC therapy. -Continue to monitor on telemetry 3. Multifocial PVC's: -Review of Telemetry shows A-fib with PVCs. No couplets or sustained runs of PVC's -Obtain echocardiogram today to assess overall structure and function -Labs remain stable. Goal Potassium 4.0 and magnesium 2.0. 4. Delirium: -reported at time of ED evaluation -patient is AxOx4 with very appropriate affect at time of exam. -Concern for possible superimposed pneumonia given repeat chest xray and physical exam findings. -Rule out UTI. Case has been discussed with Dr. Walsh. Further recommendations regarding plan of care as per his assessment. I spent a total of 30 minutes on the date of service in preparation, delivery, documentation of the care provided to the patient excluding any time spent in the performance of separately billed services. JUAN Rangel [facility] Cardiology [facility] Supervising Physician Co-Signing Physician Notes Attending attestation: I have reviewed the advanced practitioner's documentation, and agree with, and take responsibility for the plan of care. Subjective: Pt seen at 3:45 pm by the undersigned in from 456. Rate controlled AF in the 60s noted on telemetry. Denies chest pain at present. SOB improved. Notes sore throat. Exam: CV: irreglar rhythm, 06/19 SM, No edema Lung: decreased BS at left base Data: Chest x-ray reveals small left pleural effusion, mild pulmonary vascular congest ion EKG performed 07/12/2023 at 2311: Atrial fibrillation 73 bpm, right bundle branch block, with noted PVC. Echocardiogram performed 07/13/2023: Mild concentric left ventricular hypertrophy, LVEF 55-60, severe left atrial lodgment, evidence of percutaneous mitral valve clip, mild residual mitral regurgitation, mild tricuspid regurgitation, the pulmonary systolic pressure is estimated be 51 mmHg ( moderately elevated). Impression/ Plan: -Problems as noted above Received a single dose of IV furosemide today Continue prior to hospital medications Sore throat symptoms noted. Viral respiratory panel negative. Patient not anticoagulated due to history of gastrointestinal bleeding, as percutaneous left atrial appendage occlusion device (Watchman device). I spent a total of 20 minutes coordinating, documenting, and providing care for this patient excluding time spent in the performance of separately billed services or time spent by another provider. Gm Walsh DO History of Present Illness Reason for Consultation: CHF Requesting Physician: Pat colmenares Attending Physician: Jose Wagner MD History of Present Illness Patient is a 82 year old male that presented to the ED after sustaining multiple falls and increased confusion. Patient is AXOX4 at time of my examination. He states that he has not been feeling well for a couple weeks with increased shortness of breath. He was seen in the cardiology clinic 07/05/23 and subsequent CTA was ordered for further investigation. It did not show any acute infectious process of volume overload at that time. Patient reports over the past 3 days he has become increasingly weak, dizzy and short of breath with minimal exertion. He had fallen multiple times in his home, but never struck his head, denies any loss of consciousness or syncope. He denies any runny nose, fever, congestion, no lower extremity edema, but does endorse some belly bloat. He has been constipated as well. Denies any chest pain, pressure, palpitations. EKG demonstrates A-fib Chest xray shows cardiomegaly with mild pulmonary vascular congestion and small left pleural effusion. 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 Barraza. Last seen in clinic 07/05/23 by Aleksandra Berger PA-C PMHx: 1. Permanent atrial fibrillation a. [id number] score of 3 (age 1, CHF) b. S/p watchman (# 35mm FLEX) 02/05/[address] Teran ([facility] while on Eliquis) 2. History amaurosis fugax, 11/2021 a. Negative carotid duplex 3. HFpEF, NYHA class 2 4. Moderate to severe mitral and tricuspid regurgitation 1. S/p MitraClip XT W device with reduction of regurgitation for 4+ to 1+, 11/16/[address] Mcgregor 5. Mildly enlarged aortic root and proximal ascending aorta, 3.8/3.8 cm respectively per echo 12/2022 6. Severe DEX, not on CPAP 7. Seronegative inflammatory arthritis, on Plaquenil 8. Hx of GERD and gastritis 9. Vertigo Allergies Allergy/AdvReac Type Severity Reaction Status Date / Time adhesive Allergy Mild BLISTER Verified 06/09/21 18:11 SKIN levofloxacin [From Levaquin] Allergy Unknown CAN'T Verified 06/09/21 18:11 REMEMBER duloxetine [From Cymbalta] AdvReac Intermediate confusion Verified 07/13/23 06:49 Home Medications Medication Instructions Recorded Confirmed Type metoprolol succinate 25 mg 12.5 mg PO QAM 01/11/19 07/13/23 History tablet,extended release 24 hr finasteride 5 mg tablet 5 mg PO QAM 06/09/21 07/13/23 History gabapentin 300 mg capsule See Rx Instructions .Route .COMPLEX 06/09/21 07/13/23 History acetaminophen 500 mg tablet 1,000 mg PO AMPM 07/13/23 07/13/23 History allopurinol 300 mg tablet 300 mg PO QAM 07/13/23 07/13/23 History aspirin 81 mg chewable tablet 81 mg PO QAM 07/13/23 07/13/23 History buspirone 5 mg tablet 5 mg PO AMHS 07/13/23 07/13/23 History docusate sodium 100 mg capsule 100 mg PO BID 07/13/23 07/13/23 History duloxetine 30 mg capsule,delayed 30 mg PO DAILY 07/13/23 07/13/23 History release meclizine 12.5 mg tablet 12.5 mg PO BID PRN Dizziness 07/13/23 07/13/23 History tramadol 50 mg tablet 50 mg PO Q6 PRN pain,severe 07/13/23 07/13/23 History Patient History Medical History Osteoarthritis History of kidney stones Rectal bleeding reason for scheduled colonoscopy On anticoagulant therapy eliquis bid Atrial fibrillation on eliquis bid--follows with Dr. Barraza History of amputation of left hand HTN (hypertension) Sleep apnea does not use bipap as ordered Surgical History Amputation of left hand History of lumbar discectomy History of appendectomy History of tooth extraction all top teeth removed History of tonsillectomy and adenoidectomy History of bilateral cataract extraction History of colonoscopy Family History Other No family history of adverse response to anesthesia No pertinent family history Social History Smoking Status: Former smoker Tobacco Type: Cigarettes Second Hand Exposure: No; Do You Dip or Chew Tobacco: No; Hx Alcohol Use: No Hx Substance Use: No Preferred Language: Lao Communication Ability: Effective Hole Filler Required: No Beliefs That Will Affect Care: None Current Living Situation: Spouse Current Living Situation Comment: Has dementia Other Information That Helps Us Care for You: No Feels Safe at Home: Yes Safety Concerns: Afraid for Self Assistive Devices: Denture - Lower, Glasses and Walker Review of Systems Review of Systems: All systems reviewed & are unremarkable except as noted in HPI & below Physical Exam Constitutional: well developed and well nourished Neck: normal visual inspection and trachea midline Respiratory: normal respiratory effort; no respiratory distress Auscultation: + rhonchi and + wheezes (scattered throughout) Cardiovascular: Rate/Rhythm: + irregularly irregular Heart Sounds: normal S1 and normal S2 Vessels: dorsalis pedis pulses present; no JVD Extremities: no edema Skin: no rashes, warm and dry Psychiatric: A+Ox3, euthymic affect Results & Data Vital Signs (Past 12 Hours) Vital Signs Temp Pulse Resp BP Pulse Ox O2 Del Method O2 Flow Rate 07/13/23 07:35 80 07/13/23 06:47 75 20 150/105 H 94 Nasal Cannula 2 01/30/24 06:04 84 25 H 130/90 96 Nasal Cannula 2 07/13/23 05:57 Nasal Cannula 2 07/13/23 05:27 76 20 95 Nasal Cannula 1 07/13/23 05:00 74 22 141/102 H 96 07/13/23 04:38 86 22 157/117 H 97 Nasal Cannula 1 07/13/23 04:34 79 22 158/117 H 95 Nasal Cannula 1 07/13/23 04:16 79 153/106 H 07/13/23 04:15 79 22 153/106 H 98 Nasal Cannula 1 07/13/23 04:10 75 22 169/122 H 99 Nasal Cannula 1 07/13/23 04:01 72 22 165/122 H 100 Nasal Cannula 1 07/13/23 04:01 84 165/122 H 07/13/23 04:00 77 23 165/122 H 100 Nasal Cannula 1 07/13/23 03:31 87 24 187/150 H 96 Nasal Cannula 1 07/13/23 03:14 82 07/13/23 03:04 83 22 160/90 H 97 Nasal Cannula 1 07/13/23 02:30 79 22 154/97 H 97 Nasal Cannula 1 07/13/23 02:01 72 22 157/105 H 97 Nasal Cannula 1 07/13/23 01:30 84 19 155/104 H 97 Nasal Cannula 1 07/13/23 01:01 77 22 160/111 H 96 Nasal Cannula 1 07/13/23 00:30 76 22 177/124 H 96 Nasal Cannula 1 07/13/23 00:00 71 22 152/107 H 94 Nasal Cannula 1 07/12/23 23:58 94 Nasal Cannula 1 07/12/23 23:58 82 20 158/87 H 90 Nasal Cannula 1 07/12/23 23:31 77 20 181/132 H 90 Room Air 07/12/23 23:11 87 20 94 Room Air 07/12/23 23:08 36.9 C 77 18 137/98 96 Room Air 07/12/23 23:07 83 19 137/98 94 Room Air 07/12/23 23:07 82 Laboratory Results Cardiac Enzymes 07/12/23 07/13/23 Range/Units 23:15 05:38 AST 31 (13-39) U/L Troponin I High Sens 11.2 9.8 (0-20) pg/ml B-Natriuretic Peptide 407 H (0-100) pg/ml Coagulation 07/12/23 07/13/23 Range/Units 23:15 05:38 APTT 29 (21-31) Seconds B-Natriuretic Peptide 407 H (0-100) pg/ml Lipids 07/13/23 Range/Units 05:38 Triglycerides 61 (0-150) mg/dl Cholesterol 177 (0-200) mg/dl HDL Cholesterol 69 mg/dl Cholesterol/HDL Ratio 2.6 (0-5) CBC 07/12/23 07/13/23 Range/Units 23:15 05:38 WBC 7.13 6.83 (4.8-10.8) K/ul RBC 4.08 L 4.04 L (4.70-6.10) M/uL Hgb 14.6 15.0 (14.0-18.0) g/dl Hct 43.9 42.8 (42.0-52.0) % Plt Count 194 196 (130-400) K/uL Neut # (Auto) 5.65 5.01 (1.40-6.50) K/uL Lymph # (Auto) 0.76 L 1.11 L (1.20-3.40) K/uL [place] # (Auto) 0.66 H 0.62 H (0.11-0.59) K/uL Eos # (Auto) 0.02 0.05 (0.00-0.50) K/uL Baso # (Auto) 0.02 0.02 (0.00-0.20) K/uL Comprehensive Metabolic Panel 07/12/23 07/13/23 Range/Units 23:15 05:38 Sodium 141 141 (136-145) mmol/L Potassium 3.7 3.9 (3.5-5.1) mmol/L Chloride 107 108 H (98-107) mmol/L Carbon Dioxide 26 27 (21-32) mmol/L BUN 23 23 (6-23) mg/dl Creatinine 0.94 0.93 (0.6-1.4) mg/dl Glucose 103 H 141 H (70-99(Fasting)) mg/dl Calcium 9.1 9.3 (8.6-10.3) mg/dl AST 31 (13-39) U/L ALT 39 (7-52) U/L Alkaline Phosphatase 68 (34-104) U/L Total Protein 6.8 (6.0-8.3) gm/dl Albumin 3.8 (3.4-5.0) gm/dl Intake and Output 07/12/23 07/13/23 07/13/23 22:59 06:59 14:59 Output Total 400 / 400 Balance -400 / -400 Output: Urine 400 / 400 Other: Weight 102 kg Weight Measurement Method Built in [facility] Diagnostic Findings EKG 07/12/23 A-fib with PVC Left axis deviation Right BBB T wave abnormality, lateral leads. Rate 73bpm Echocardiogram 01/05/23 Interpretation Summary The rhythm during the transthoracic echo examination was atrial fibrillation with controlled ventricular response. Calculated LV ejection Fraction = 55% (bi-plane method of discs). The left atrium is severely enlarged (>48 ml/m^2,). SP transcutaneous mitral [id number]-[id number] repair with two MitraClip XTW devices. The average mitral mean gradient at a heart rate of 67 bpm is 2.7 mmHg. Trivial mitral regurgitation. Mild tricuspid regurgitation is present. The estimated pulmonary artery systolic pressure is 38mm Hg. Compared to last available study changes are noted as follows: Left ventricular systolic function has improved. Left heart cath 07/2022: [facility] [place]. Mild non-obstructive CAD (2) Atrial fibrillation Atrial fibrillation type: longstanding persistent Qualified Code(s): I48.11 - Longstanding persistent atrial fibrillation
[2023-07-13] MEDS ORDERED: MAGNESIUM SULFATE / D5W 1 GM/100 ML BAG IV ONE (08:45)
[2023-07-13] MEDS ORDERED: METOPROLOL SUCC 25MG EXT REL TAB PO ONE (09:00)
[2023-07-13] MEDS ORDERED: METOPROLOL SUCC 25MG EXT REL TAB PO SCH (09:00)
[2023-07-13] MEDS: lisinopril 2.5 MG TAB PO SCH (10:00)
--- NOTE | 2023-07-13 12:12 | Electrocardiogram Report ---
Test Reason : Blood Pressure : / mmHG Vent. Rate : 073 BPM Atrial Rate : 000 BPM P-R Int : 000 ms QRS Dur : 140 ms QT Int : 428 ms P-R-T Axes : 000 -38 049 degrees QTc Int : 471 ms Atrial fibrillation with premature ventricular or aberrantly conducted complexes Left axis deviation Right bundle branch block T wave abnormality, consider lateral ischemia Abnormal ECG When compared with ECG of 10-JUN-2023 11:54, Nonspecific T wave abnormality has replaced inverted T waves in Inferior leads Inverted T waves have replaced nonspecific T wave abnormality in Lateral leads Confirmed by Devan Gillis ([id number]) on 07/13/2023 12:12:23 PM Referred By: REFERRED SELF Confirmed By:Devan Gillis
[2023-07-13 13:20] LABS: Appearance Urine Clear (Clear); Bilirubin Urine Negative (Negative); Blood Urine Negative (Negative); Color Urine Yellow; Glucose Urine UA Negative (Negative); Ketones Urine Negative (Negative); Leukocyte Esterase Urine Negative (Negative); Nitrite Urine Negative (Negative); Protein Urine Negative (Negative); Specific Gravity Urine 1.012 (1.000-1.030); Urobilinogen Urine Negative (Negative)
--- NOTE | 2023-07-13 15:18 | Hospitalist Progress Note ---
Date of Service July 13, 2023 Assessment & Plan (1) Decompensated heart failure: Plan: Acute on chronic diastolic heart failure Hypoxia secondary to above Last EF 55% Valvular heart disease Severe mitral regurgitation S/P surgery H/O tricuspid regurgitation --CXR:Cardiomegaly with mild pulmonary vascular congestion. A small left pleural effusion and left basilar densities have progressed. This could represent atelectasis or pneumonia. --ECHO pending Received IV Lasix Monitor volume status, I/Os, daily weight Cardiology consulted Continue metoprolol, lisinopril Continue diuretics based on further testing Supplemental oxygen as needed Hypertensive urgency Likely due to uncontrolled pain Continue lisinopril, metoprolol Monitor BP and adjust medications as needed Persistent atrial fibrillation S/P Watchman procedure Continue metoprolol Monitor and adjust medications as needed Chest pain Likely multifactorial secondary to hypertensive urgency, volume overload Troponins x 2 negative EKG showed nonspecific T wave abnormality in inferior, lateral leads Normal lipid panel Echo pending Continue aspirin 81 mg daily Altered mental status ? Secondary to Cymbalta DD: Hypoxia contributing as well --CT Head:Chronic changes as described with no acute intracranial hemorrhage or space-occupying lesion. Urine analysis within normal limits BioFire negative Reorient frequently to minimize delirium Chronic back pain H/O sacroiliitis H/O lumbar laminectomy for severe lumbar spinal stenosis Last SI joint injection was 1 month ago per record Patient declined lumbosacral MRI and additional injections Cymbalta held due to change in mental status Cautious use of pain medications Other chronic conditions: H/O PVD DEX/CSA BiPAP intolerant Pprediabetes, hemoglobin A1c of 5.6 last year BPH MCTD as per records Anxiety/mood disorder Gout Continue appropriate home medications Obesity BMI 37 DVT Px: Lovenox SQ Code Status Full code Admission and Anticipated Discharge Date Admission Date: July 13, 2023 Subjective Patient is seen and examined at bedside Confused pleasantly during my encounter Poor historian Denies any chest pain, dyspnea Oriented x 4 later during the day per RN Saturating well on 2 L supplemental oxygen Review of Systems Review of Systems: Other Physical Exam Physical Exam: Physical Exam: Vitals signs as noted above General Appearance:Obese, no apparent distress Head: normocephalic, Atraumatic Eyes: normal inspection, EOMI Neck: supple, Trachea midline Respiratory/Chest: Normal breath sounds, CTA, No accessory muscle use Cardiovascular: Irregularly irregular, + murmur Abdomen/GI:Soft, Non tender, +protuberant, Bowel sounds present Extremities/Musculoskeletal:normal inspection, Trace edema, Left Hand stump Neurologic/Psych:Alert, awake, grossly no focal neurological deficits, confused Skin: normal color, warm Results & Data Results & Data Vital Signs (Past 12 Hours) Vital Signs Temp Pulse Pulse Resp BP BP Pulse Ox 07/13/23 13:18 36.4 C 69 20 152/98 H 96 07/13/23 11:13 07/13/23 11:00 66 24 84 L 07/13/23 11:00 156/119 H 07/13/23 10:00 80 33 H 94 07/13/23 10:00 140/98 07/13/23 09:00 82 24 94 07/13/23 09:00 134/93 07/13/23 08:00 151/103 H 07/13/23 08:00 80 29 H 07/13/23 07:35 80 07/13/23 07:00 142/107 H 07/13/23 07:00 77 31 H 93 07/13/23 06:48 74 28 H 92 07/13/23 06:47 75 20 150/105 H 94 07/13/23 06:10 07/13/23 06:04 84 25 H 130/90 96 07/13/23 05:57 07/13/23 05:27 76 20 95 07/13/23 05:00 74 22 141/102 H 96 07/13/23 04:38 86 22 157/117 H 97 07/13/23 04:34 79 22 158/117 H 95 07/13/23 04:16 79 153/106 H 07/13/23 04:15 79 22 153/106 H 98 07/13/23 04:10 75 22 169/122 H 99 07/13/23 04:01 72 22 165/122 H 100 07/13/23 04:01 84 165/122 H 07/13/23 04:00 77 23 165/122 H 100 07/13/23 03:31 87 24 187/150 H 96 07/13/23 03:14 82 07/13/23 03:04 83 22 160/90 H 97 Pulse Ox O2 Del Method O2 Del Method O2 Flow Rate O2 Flow Rate 07/13/23 13:18 Nasal Cannula 2 07/13/23 11:13 95 Nasal Cannula 2 07/13/23 11:00 07/13/23 11:00 07/13/23 10:00 07/13/23 10:00 07/13/23 09:00 07/13/23 09:00 07/13/23 08:00 07/13/23 08:00 07/13/23 07:35 07/13/23 07:00 07/13/23 07:00 07/13/23 06:48 07/13/23 06:47 Nasal Cannula 2 07/13/23 06:10 95 Nasal Cannula 2 07/13/23 06:04 Nasal Cannula 2 07/13/23 05:57 Nasal Cannula 2 07/13/23 05:27 Nasal Cannula 1 07/13/23 05:00 07/13/23 04:38 Nasal Cannula 1 07/13/23 04:34 Nasal Cannula 1 07/13/23 04:16 07/13/23 04:15 Nasal Cannula 1 07/13/23 04:10 Nasal Cannula 1 07/13/23 04:01 Nasal Cannula 1 07/13/23 04:01 07/13/23 04:00 Nasal Cannula 1 07/13/23 03:31 Nasal Cannula 1 07/13/23 03:14 07/13/23 03:04 Nasal Cannula 1 Laboratory Results Short CBC 07/12/23 07/13/23 Range/Units 23:15 05:38 WBC 7.13 6.83 (4.8-10.8) K/ul Hgb 14.6 15.0 (14.0-18.0) g/dl Hct 43.9 42.8 (42.0-52.0) % Plt Count 194 196 (130-400) K/uL [facility] 07/12/23 07/13/23 23:15 05:38 Sodium 141 141 Potassium 3.7 3.9 Chloride 107 108 H Carbon Dioxide 26 27 BUN 23 23 Creatinine 0.94 0.93 Glucose 103 H 141 H Calcium 9.1 9.3 Liver Function 07/12/23 Range/Units 23:15 Total Bilirubin 1.1 H (0.2-1.0) mg/dl AST 31 (13-39) U/L ALT 39 (7-52) U/L Alkaline Phosphatase 68 (34-104) U/L Albumin 3.8 (3.4-5.0) gm/dl Urine 07/13/23 Range/Units 13:03 Urine Color Yellow Urine Appearance Clear (Clear) Urine pH 6.0 (4.5-7.5) Ur Specific [place] 1.012 (1.000-1.030) Urine Protein Negative (Negative) Urine Glucose (UA) Negative (Negative)
[2023-07-13] MEDS ORDERED: GABAPENTIN 300 MG CAP SCH (21:00)
[2023-07-13] MEDS: GABAPENTIN 300 MG CAP PO SCH (21:48)
[2023-07-14 07:00] LABS: Hematocrit (blood only) 45.5 % (42.0-52.0); Mean Corpuscular Hemoglobin 36.1 pg (25.0-34.0); Mean Corpuscular Volume 109.4 fL (80.0-100.0); Mean Platelet Volume 9.8 fL (9.4-12.4); Platelet Count 194 K/uL (130-400); RDW Coefficient of Variation 14.4 % (11.5-14.5); RDW Standard Deviation 58.3 fL (36.4-46.3); Red Blood Count 4.16 M/uL (4.70-6.10); White Blood Count 5.75 K/ul (4.8-10.8)
[2023-07-14 07:10] LABS: BUN Creatinine Ratio 29.5 (10-20); Calcium 9.3 mg/dl (8.6-10.3); Creatinine Clr Calc Pharmacy 56.1 ml/min; Est GFR (African American) 75.2 ml/min; Est GFR (Non-African American) 64.9 ml/min; Magnesium 2.1 mg/dl (1.7-2.4); Potassium 4.1 mmol/L (3.5-5.1)
[2023-07-14] MEDS: allopurinoL 300 MG TAB PO SCH (08:30)
[2023-07-14] MEDS: ASPIRIN 81 MG ECTAB PO SCH (08:30)
[2023-07-14] MEDS: busPIRone 5 MG TAB PO SCH ×2 (08:31→19:50)
[2023-07-14] MEDS: ENOXAPARIN INJ 40 MG/0.4 ML SYR SQ SCH (08:31)
[2023-07-14] MEDS: FINASTERIDE 5 MG TAB PO SCH (08:32)
[2023-07-14] MEDS: LIDOCAINE 5% 1 PATCH TD SCH (08:33)
[2023-07-14] MEDS: METOPROLOL SUCC 25MG EXT REL TAB PO SCH (08:34)
[2023-07-14] MEDS: lisinopril 2.5 MG TAB PO SCH (08:34)
[2023-07-14] MEDS: GABAPENTIN 600 MG TAB PO SCH (08:34)
[2023-07-14] MEDS: ACETAMINOPHEN 500 MG TAB PO SCH ×2 (08:38→19:55)
[2023-07-14] MEDS: DOCUSATE SODIUM 100 MG CAP PO SCH ×2 (08:38→19:54)
--- NOTE | 2023-07-14 09:02 | Cardiology Progress Note ---
Date of Service July 14, 2023 Assessment & Plan (1) Decompensated heart failure: (2) Atrial fibrillation: (3) Multifocal PVCs with pairing: (4) Delirium: Plan Assessment: 82 year old male with several weeks of worsening dyspnea on exertion, weakness, falls and increased confusion. Concerns for superimposed infection vs heart failure. Plan: 1. Decompensated heart failure: initial Chest xray suggestive of increased vascular congestion and left pleural effusion. Repeat chest xray now shows left basilar densities have progressed, consider atelectasis or pneumonia. -Patient does not exhibit extensive hypervolemia on physical exam. faint Crackles appreciated in left lower base, scant Exp. wheezes. Currently requiring supplemental O2 Question superimposed pneumonia infection. Further investigation per primary team. -give Lasix 20mg IV x1 dose and monitor fluid status with I&O and daily weights. -Labs stable. -Repeat chest xray in the AM -Pending response to IV diuretic, consider transition to low dose furosemide at discharge with OP labs in one week. -Continue Toprol xl and Lisinopril as part of HF regimen. 2. Persistent Atrial fibrillation -Not new, longstanding. -Continue on Toprol xl as part of rate control. -Patient is s/p watchman procedure and no longer on oral AC therapy. -Continue to monitor on telemetry 3. Multifocial PVC's: -Review of Telemetry shows A-fib with PVCs. No couplets or sustained runs of PVC's -Obtain echocardiogram today to assess overall structure and function -Labs remain stable. Goal Potassium 4.0 and magnesium 2.0. 4. Delirium: -reported at time of ED evaluation -patient remains AxOx4 with very appropriate affect at time of exam. -Rule out UTI. Case has been discussed with Dr. Walsh. Further recommendations regarding plan of care as per his assessment. I spent a total of 30 minutes on the date of service in preparation, delivery, documentation of the care provided to the patient excluding any time spent in the performance of separately billed services. JUAN Rangel [facility] Cardiology [facility] Admission and Anticipated Discharge Date Admission Date: July 13, 2023 Supervising Physician Co-Signing Physician Notes Attending attestation: I have reviewed the advanced practitioner's documentation, and agree with, and take responsibility for the plan of care. Subjective: Pt seen at 2:20pm by the undersigned in from 456. Rate controlled AF in the 60s noted on telemetry. Resting comfortably. Exam: CV: irreglar rhythm, 1/6 SM, No edema Lung: decreased BS at left base Data: Chest x-ray reveals small left pleural effusion, mild pulmonary vascular congestion EKG performed 07/12/2023 at 2311: Atrial fibrillation 73 bpm, right bundle branch block, with noted PVC. Echocardiogram performed 07/13/2023: Mild concentric left ventricular hypertrophy, LVEF 55-60, severe left atrial lodgment, evidence of percutaneous mitral valve clip, mild residual mitral regurgitation, mild tricuspid regurgitation, the pulmonary systolic pressure is estimated be 51 mmHg (moderately elevated). Impression/ Plan: -Problems as noted above -Proceed with furosemide 20 mg x 1 again today, also had a dose on 07/13/2023. Continue prior to hospital medications Sore throat symptoms noted. Viral respiratory panel negative. Patient not anticoagulated due to history of gastrointestinal bleeding, h percutaneous left atrial appendage occlusion device (Watchman device). Increase activity as tolerated. Would consider discharge on low-dose furosemide, perhaps 20 mg 3 days/week on Mondays, Wednesdays, and Fridays. I spent a total of 20 minutes coordinating, documenting, and providing care for this patient excluding time spent in the performance of separately billed services or time spent by another provider. Gm Walsh DO Subjective 07/14/23: patient seen and examined in follow up. He is out of bed in the chair visiting with friend/family. Reports some mild improvement in his breathing, but is currently wearing supplemental O2 via nasal canula. Denies chest pain, pressure, palpitations. No fevers, chills, no URI symtpoms. Renal function stable. Review of telemetry shows A-fib with occasional PVC's. Rates 70's. No acute events overnight. Notes, labs, vitals and diagnostics reviewed. Review of Systems Review of Systems: All systems reviewed & are unremarkable except as noted in HPI & below Physical Exam Constitutional: well developed and well nourished; no acute distress Neck: normal visual inspection and trachea midline Respiratory: normal respiratory effort; no respiratory distress Auscultation: + crackles (left lower base) and + wheezes (faint exp. wheeze in b/l upper lobes ) Cardiovascular: Rate/Rhythm: + irregularly irregular Heart Sounds: normal S1 and normal S2 Vessels: no JVD Extremities: no edema Skin: no rashes, warm and dry Psychiatric: A+Ox3, euthymic affect Results & Data Vital Signs (Past 12 Hours) Vital Signs Temp Pulse Pulse Resp BP Pulse Ox O2 Del Method 07/14/23 07:58 36.8 C 77 19 147/98 H 94 Nasal Cannula 07/14/23 07:57 69 07/14/23 03:03 36.2 C L 66 18 137/97 95 Nasal Cannula 07/13/23 23:25 36.4 C L 60 16 134/84 94 Nasal Cannula 07/13/23 21:57 65 O2 Flow Rate 07/14/23 07:58 2.0 07/14/23 07:57 07/14/23 03:03 2 07/13/23 23:25 2 07/13/23 21:57 Laboratory Results CBC 07/14/23 Range/Units 06:15 WBC 5.75 (4.8-10.8) K/ul RBC 4.16 L (4.70-6.10) M/uL Hgb 15.0 (14.0-18.0) g/dl Hct 45.5 (42.0-52.0) % Plt Count 194 (130-400) K/uL Comprehensive Metabolic Panel 07/14/23 Range/Units 06:15 Sodium 139 (136-145) mmol/L Potassium 4.1 (3.5-5.1) mmol/L Chloride 102 (98-107) mmol/L Carbon Dioxide 32 (21-32) mmol/L BUN 31 H (6-23) mg/dl Creatinine 1.05 (0.6-1.4) mg/dl Glucose 90 (70-99(Fasting)) mg/dl Calcium 9.3 (8.6-10.3) mg/dl Intake and Output 07/13/23 07/14/23 07/14/23 22:59 06:59 14:59 Intake Total 250 / 990 100 / 990 Balance 250 / 790 100 / 790 Intake: Oral 250 / 890 100 / 890 Other: # Unmeasured Voids 1 Weight 97.2 kg Weight Measurement Method Standing Scale (2) Atrial fibrillation Atrial fibrillation type: longstanding persistent Qualified Code(s): I48.11 - Longstanding persistent atrial fibrillation
[2023-07-14] MEDS ORDERED: FUROSEMIDE INJ 20 MG/2 ML VIAL IV ONE (11:08)
--- NOTE | 2023-07-14 16:31 | Hospitalist Progress Note ---
Date of Service July 14, 2023 Assessment & Plan (1) Decompensated heart failure: Plan: Acute on chronic diastolic heart failure Hypoxia secondary to above Last EF 55% Valvular heart disease Severe mitral regurgitation S/P surgery H/O tricuspid regurgitation --CXR:Cardiomegaly with mild pulmonary vascular congestion. A small left pleural effusion and left basilar densities have progressed. This could represent atelectasis or pneumonia. --ECHO: Mild concentric LVH. Left ventricle wall motion is normal. Left ventricle systolic function is normal. EF 55 to 60%. Left atrium is severely dilated. Evidence of percutaneous mitral valve clip. Mild mitral and tricuspid regurgitation. Pulmonary artery systolic pressure estimated to be 51 mmHg. Monitor volume status, I/Os, daily weight Appreciate cardiology input Continue metoprolol, lisinopril Supplemental oxygen as needed Received IV Lasix today Check chest x-ray tomorrow PT OT prior to discharge Hypertensive urgency Likely due to uncontrolled pain Continue lisinopril, metoprolol Monitor BP and adjust medications as needed BP better today Persistent atrial fibrillation S/P Watchman procedure Continue metoprolol Monitor and adjust medications as needed Chest pain Likely multifactorial secondary to hypertensive urgency, volume overload Troponins x 2 negative EKG showed nonspecific T wave abnormality in inferior, lateral leads Normal lipid panel Echo as above Continue aspirin 81 mg daily Currently denies any chest pain Altered mental status ? Secondary to Cymbalta DD: Hypoxia contributing as well --CT Head:Chronic changes as described with no acute intracranial hemorrhage or space-occupying lesion. Urine analysis within normal limits BioFire negative Reorient frequently to minimize delirium Mental status much improved Chronic back pain H/O sacroiliitis H/O lumbar laminectomy for severe lumbar spinal stenosis Last SI joint injection was 1 month ago per record Patient declined lumbosacral MRI and additional injections Cymbalta held due to change in mental status Cautious use of pain medications Other chronic conditions: H/O PVD DEX/CSA BiPAP intolerant Pprediabetes, hemoglobin A1c of 5.6 last year BPH MCTD as per records Anxiety/mood disorder Gout Continue appropriate home medications Obesity BMI 37 DVT Px: Lovenox SQ Code Status Full code Disposition PT OT prior to discharge Family contact: [place]: [phone]. Requests updates from providers. Admission and Anticipated Discharge Date Admission Date: July 13, 2023 Subjective Patient is seen and examined at bedside Mental status seem to be back to baseline Updated patient's step daughter over the phone Subjectively feels much better Also discussed with patient's family at bedside Offers no specific complaints Discussed with cardiology today Denies any chest pain, dyspnea Saturating well on minimal supplemental oxygen Review of Systems Review of Systems: All systems reviewed & are unremarkable except as noted in Subjective Physical Exam Physical Exam: Physical Exam: Vitals signs as noted above General Appearance:Obese, no apparent distress Head: normocephalic, Atraumatic Eyes: normal inspection, EOMI Neck: supple, Trachea midline Respiratory/Chest: Normal breath sounds, CTA, No accessory muscle use Cardiovascular: Irregularly irregular, + murmur Abdomen/GI:Soft, Non tender, +protuberant, Bowel sounds present Extremities/Musculoskeletal:normal inspection, Trace edema, Left Hand stump Neurologic/Psych:Alert, awake, grossly no focal neurological deficits, confused Skin: normal color, warm Results & Data Results & Data Vital Signs (Past 12 Hours) Vital Signs Temp Pulse Pulse Resp BP Pulse Ox Pulse Ox 07/14/23 15:49 36.8 C 69 18 115/76 90 07/14/23 15:03 72 07/14/23 14:25 93 07/14/23 11:45 36.5 C 62 20 108/73 96 07/14/23 10:51 95 07/14/23 10:41 07/14/23 07:58 36.8 C 77 19 147/98 H 94 07/14/23 07:57 69 O2 Del Method O2 Flow Rate O2 Flow Rate 07/14/23 15:49 Room Air 07/14/23 15:03 07/14/23 14:25 2 07/14/23 11:45 Nasal Cannula 2 07/14/23 10:51 07/14/23 10:41 Nasal Cannula 2 07/14/23 07:58 Nasal Cannula 2.0 07/14/23 07:57 Laboratory Results Short CBC 07/14/23 Range/Units 06:15 WBC 5.75 (4.8-10.8) K/ul Hgb 15.0 (14.0-18.0) g/dl Hct 45.5 (42.0-52.0) % Plt Count 194 (130-400) K/uL BMP 07/14/23 06:15 Sodium 139 Potassium 4.1 Chloride 102 Carbon Dioxide 32 BUN 31 H Creatinine 1.05 Glucose 90 Calcium 9.3
[2023-07-14] MEDS ORDERED: COUGH DROP (SUGAR FREE) LOZ 24 LOZ/1 BOX BUCCAL ONE (16:49)
[2023-07-14] MEDS: GABAPENTIN 300 MG CAP PO SCH (19:44)
[2023-07-15 06:46] LABS: Hematocrit (blood only) 43.2 % (42.0-52.0); Mean Corpuscular Hemoglobin 36.3 pg (25.0-34.0); Mean Corpuscular Hgb Conc 34.7 g/dL (32.0-36.0); Mean Corpuscular Volume 104.6 fL (80.0-100.0); Mean Platelet Volume 9.9 fL (9.4-12.4); Platelet Count 196 K/uL (130-400); RDW Coefficient of Variation 13.7 % (11.5-14.5); RDW Standard Deviation 51.8 fL (36.4-46.3); Red Blood Count 4.13 M/uL (4.70-6.10); White Blood Count 5.06 K/ul (4.8-10.8)
[2023-07-15 07:16] LABS: BUN Creatinine Ratio 34.1 (10-20); Calcium 9.1 mg/dl (8.6-10.3); Creatinine Clr Calc Pharmacy 72.1 ml/min; Est GFR (African American) 94.1 ml/min; Est GFR (Non-African American) 81.2 ml/min; Potassium 3.9 mmol/L (3.5-5.1)
--- NOTE | 2023-07-15 08:52 | XRay Report ---
XR chest 2V PA/lateral CLINICAL HISTORY: CHF, compare TECHNIQUE: 2 views of the chest were obtained. Comparison: Comparison is made to chest radiograph 07/13/2023 FINDINGS: No lines and tubes are seen. The cardiomediastinal silhouette is normal. The lungs are clear. No evid ence of pleural effusion or pneumothorax. IMPRESSION: Cardiomegaly without evidence of CHF. ACT 112: Negative or not required by law. Electronically signed by: Osvaldo Castellanos M.D. 07/15/2023 8:51 AM
[2023-07-15] MEDS: allopurinoL 300 MG TAB PO SCH (08:59)
[2023-07-15] MEDS: ACETAMINOPHEN 500 MG TAB PO SCH (08:59)
[2023-07-15] MEDS: DOCUSATE SODIUM 100 MG CAP PO SCH (09:00)
[2023-07-15] MEDS: FINASTERIDE 5 MG TAB PO SCH (09:00)
[2023-07-15] MEDS: GABAPENTIN 600 MG TAB PO SCH (09:00)
[2023-07-15] MEDS: ASPIRIN 81 MG ECTAB PO SCH (09:00)
[2023-07-15] MEDS: lisinopril 2.5 MG TAB PO SCH (09:01)
[2023-07-15] MEDS: LIDOCAINE 5% 1 PATCH TD SCH (09:01)
[2023-07-15] MEDS: METOPROLOL SUCC 25MG EXT REL TAB PO SCH (09:02)
[2023-07-15] MEDS: busPIRone 5 MG TAB PO SCH (10:16)
[2023-07-15] MEDS: ENOXAPARIN INJ 40 MG/0.4 ML SYR SQ SCH (10:17)
--- NOTE | 2023-07-15 12:00 | Cardiology Progress Note ---
Date of Service July 15, 2023 Assessment & Plan (1) Decompensated heart failure: (2) Atrial fibrillation: (3) Multifocal PVCs with pairing: (4) Delirium: Plan Assessment: 82 year old male with several weeks of worsening dyspnea on exertion, weakness, falls and increased confusion. Concerns for superimposed infection vs heart failure. Plan: 1. Decompensated heart failure: -patient is doing well from a cardiovascular standpoint. Euvolemic on physical exam. -Negative fluid balance of -500ml today. -chest xray shows improvement. -Discussed case in person with hospitalist. Patient is ok for discharge when ok with primary team. -Recommend starting furosemide 20mg three times per week (MWF) upon discharge. -Continue Toprol xl and Lisinopril as part of HF regimen. -Recommend labs 1 week post discharge (BMP) 2. Persistent Atrial fibrillation -Not new, longstanding. -Continue on Toprol xl as part of rate control. -Patient is s/p watchman procedure and no longer on oral AC therapy. -Continue to monitor on telemetry during course of hospitalization 3. Multifocial PVC's: -Review of Telemetry shows A-fib with PVCs. No couplets or sustained runs of PVC's -No acute events overnight. -Labs remain stable. Goal Potassium 4.0 and magnesium 2.0. 4. Delirium: -remains AxOx4. Case has been discussed with Dr. Walsh. Further recommendations regarding plan of care as per his assessment. I spent a total of 30 minutes on the date of service in preparation, delivery, documentation of the care provided to the patient excluding any time spent in the performance of separately billed services. JUAN Rangel [facility] Cardiology [facility] Admission and Anticipated Discharge Date Admission Date: July 13, 2023 Supervising Physician Co-Signing Physician Notes Supervising Physician Attestation: I have personally performed a history and physical examination on the patient. I agree with the physician psychiatric technician assistant's findings and plan as documented. Gm Walsh DO Subjective 07/15/2023: patient seen an examined at bedside. He reports feeling much better than yesterday. Currently on room air and denies any chest pain, pressure, palpitations, no shortness of breath, cough, no edema. he does endorse a dry "scratchy throat" relieved with fluids and lozenges. Review of telemetry shows A-fib with PVC's rate controlled. No acute events overnight. Notes, labs, vitals and diagnostics reviewed. Review of Systems Review of Systems: All systems reviewed & are unremarkable except as noted in HPI & below Physical Exam Constitutional: well developed and well nourished; no acute distress Neck: normal visual inspection and trachea midline Respiratory: normal respiratory effort, lungs clear to auscultation normal respiratory effort; no respiratory distress Cardiovascular: Rate/Rhythm: + irregularly irregular Heart Sounds: normal S1 and normal S2 Vessels: dorsalis pedis pulses present; no JVD Extremities: no edema Skin: no rashes, warm and dry Psychiatric: A+Ox3, euthymic affect Results & Data Vital Signs (Past 12 Hours) Vital Signs Temp Pulse Pulse Resp BP Pulse Ox O2 Del Method 07/15/23 10:00 83 07/15/23 07:44 36.5 C 80 20 130/75 93 Room Air 07/15/23 03:16 36.3 C L 65 16 119/80 93 Nasal Cannula 07/15/23 00:56 79 O2 Flow Rate 07/15/23 10:00 07/15/23 07:44 07/15/23 03:16 2 07/15/23 00:56 Laboratory Results CBC 07/15/23 Range/Units 06:00 WBC 5.06 (4.8-10.8) K/ul RBC 4.13 L (4.70-6.10) M/uL Hgb 15.0 (14.0-18.0) g/dl Hct 43.2 (42.0-52.0) % Plt Count 196 (130-400) K/uL Comprehensive Metabolic Panel 07/15/23 Range/Units 06:00 Sodium 138 (136-145) mmol/L Potassium 3.9 (3.5-5.1) mmol/L Chloride 103 (98-107) mmol/L Carbon Dioxide 29 (21-32) mmol/L BUN 28 H (6-23) mg/dl Creatinine 0.82 (0.6-1.4) mg/dl Glucose 84 (70-99(Fasting)) mg/dl Calcium 9.1 (8.6-10.3) mg/dl Intake and Output 07/14/23 07/15/23 07/15/23 22:59 06:59 14:59 Intake Total 150 / 670 100 / 670 Output Total 500 / 500 Balance 150 / 270 100 / 270 -500 / -500 Intake: Oral 150 / 670 100 / 670 Output: Urine 500 / 500 Other: # Unmeasured Voids 1 Weight 97.7 kg Weight Measurement Method Standing Scale (2) Atrial fibrillation Atrial fibrillation type: longstanding persistent Qualified Code(s): I48.11 - Longstanding persistent atrial fibrillation
--- NOTE | 2023-07-15 12:23 | Hospitalist Progress Note ---
Date of Service July 15, 2023 Assessment & Plan (1) Decompensated heart failure: Plan: Acute on chronic diastolic heart failure Hypoxia secondary to above Valvular heart disease Severe mitral regurgitation S/P surgery H/O tricuspid regurgitation --CXR:Cardiomegaly with mild pulmonary vascular congestion. A small left pleural effusion and left basilar densities have progressed. This could represent atelectasis or pneumonia. --ECHO: Mild concentric LVH. Left ventricle wall motion is normal. Left ventricle systolic function is normal. EF 55 to 60%. Left atrium is severely dilated. Evidence of percutaneous mitral valve clip. Mild mitral and tricuspid regurgitation. Pulmonary artery systolic pressure estimated to be 51 mmHg. Repeat chest x-ray on 07/15/2023:Cardiomegaly without evidence of CHF. Monitor volume status, I/Os, daily weight Appreciate cardiology input Continue metoprolol, lisinopril Received IV Lasix 2 step: Did not qualify for supplemental oxygen Plan to discharge on Lasix 20 mg 3 times a week (Wednesday, Wednesday, Wednesday) Needs follow-up with cardiology with repeat BMP as outpatient Hypertensive urgency Likely due to uncontrolled pain Continue lisinopril, metoprolol BP much improved Persistent atrial fibrillation S/P Watchman procedure Continue metoprolol Monitor and adjust medications as needed Chest pain Likely multifactorial secondary to hypertensive urgency, volume overload Troponins x 2 negative EKG showed nonspecific T wave abnormality in inferior, lateral leads Normal lipid panel Echo as above Continue aspirin 81 mg daily Currently denies any chest pain Altered mental status Metabolic/toxic encephalopathy ? Secondary to Cymbalta DD: Hypoxia contributing as well --CT Head:Chronic changes as described with no acute intracranial hemorrhage or space-occupying lesion. Urine analysis within normal limits BioFire negative Reorient frequently to minimize delirium Mental status seem to be back to baseline Chronic back pain H/O sacroiliitis H/O lumbar laminectomy for severe lumbar spinal stenosis Last SI joint injection was 1 month ago per record Patient declined lumbosacral MRI and additional injections Cymbalta held due to change in mental status Cautious use of pain medications Other chronic conditions: H/O PVD DEX/CSA BiPAP intolerant Pprediabetes, hemoglobin A1c of 5.6 last year BPH MCTD as per records Anxiety/mood disorder Gout Continue appropriate home medications Obesity BMI 37 DVT Px: Lovenox SQ Code Status Full code Disposition Home with home health Admission and Anticipated Discharge Date Admission Date: July 13, 2023 Subjective Patient is seen and examined at bedside Patient reports mild sore throat this morning Otherwise offers no complaints Discussed with cardiology today Tried to update patient's daughter--no answer Denies any chest pain, dyspnea Saturating well on room air Had 2 step earlier today Review of Systems Review of Systems: All systems reviewed & are unremarkable except as noted in Subjective Physical Exam Physical Exam: Physical Exam: Vitals signs as noted above General Appearance:Obese, no apparent distress Head: normocephalic, Atraumatic Eyes: normal inspection, EOMI Neck: supple, Trachea midline Respiratory/Chest: Normal breath sounds, CTA, No accessory muscle use Cardiovascular: Irregularly irregular, + murmur Abdomen/GI:Soft, Non tender, +protuberant, Bowel sounds present Extremities/Musculoskeletal:normal inspection, Trace edema, Left Hand stump Neurologic/Psych:Alert, awake, grossly no focal neurological deficits, confused Skin: normal color, warm Results & Data Results & Data Vital Signs (Past 12 Hours) Vital Signs Temp Pulse Pulse Pulse Pulse Resp Resp 07/15/23 12:18 58 L 66 18 07/15/23 11:52 36.9 C 68 20 07/15/23 10:00 83 07/15/23 07:44 36.5 C 80 20 07/15/23 03:16 36.3 C L 65 16 07/15/23 00:56 79 Resp BP Pulse Ox Pulse Ox Pulse Ox O2 Del Method O2 Flow Rate 07/15/23 12:18 16 90 91 07/15/23 11:52 100/61 92 Room Air 07/15/23 10:00 07/15/23 07:44 130/75 93 Room Air 07/15/23 03:16 119/80 93 Nasal Cannula 2 07/15/23 00:56 Laboratory Results Short CBC 07/15/23 Range/Units 06:00 WBC 5.06 (4.8-10.8) K/ul Hgb 15.0 (14.0-18.0) g/dl Hct 43.2 (42.0-52.0) % Plt Count 196 (130-400) K/uL BMP 07/15/23 06:00 Sodium 138 Potassium 3.9 Chloride 103 Carbon Dioxide 29 BUN 28 H Creatinine 0.82 Glucose 84 Calcium 9.1
--- NOTE | 2023-07-15 12:46 | Discharge Summary ---
Date of Service July 15, 2023 Admission HPI Per Admitting Provider History obtained from patient, ER provider, and records. Medical history significant for chronic diastolic heart failure (EF 55%, TTE 2022), valvular heart disease (severe MR status post MitraClip surgery, hx TR), A-fib status post Watchman device, PVD, DEX/CSA BiPAP intolerant,, hypertension, prediabetes, GERD, BPH, MCTD as per records, hx vertigo, sacroiliitis, anxiety/mood disorder. Last confinement 2014 under orthopedic spine service for lumbar laminectomy for severe lumbar spine stenosis. Unremarkable postop course. Patient with shortness of breath symptoms worsen exertion over the last few weeks. Chronic sore throat symptoms with congestion. Daily substernal pain across his chest. Bilateral leg swelling with possible weight gain. No unusual cough symptoms. Claims to be compliant with home medications. Pulse ox O2 sats of 70s documented at home at 1 time. Patient seen at [facility] cardiology office on follow-up last June 16 following ER visits for chest pain/SOB. TTE contemplated. [place] [facility] [place]up for right sacroiliitis pain last week. Last right SI joint injection was last month. Patient declined lumbosacral MRI and additional injection recommendation. Cymbalta course initiated outpatient to help with pain. Patient with worsening symptoms since yesterday. Dizziness described as both lightheadedness and spinning. No headache symptoms. PCP made aware of symptoms. PCP making arrangements for patient to be seen by cream buyer for follow-up outpatient. Mucolytic prescribed outpatient for cough symptoms. Patient noted to be more confused than usual. Denies headache, abdominal pain, dysuria symptoms. New Cymbalta Rx for back pain not helping as per patient. SBP 180s upon arrival at the ER. Multiple PVCs noted on the monitor. Chest pain improved with nitroglycerin administration at the ER. 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 Admission Exam Per Admitting Provider GENERAL: Slightly uncomfortable, obese, minimal respiratory distress SKIN: Normal color, warm HEENT: [place] palpebral conjunctivae, no ptosis, dry buccal mucosa, nasal cannula in place NECK : Supple, short neck, no tenderness CHEST : Decreased breath sounds, no tenderness HEART : irregular, systolic murmur ABDOMEN: Some distention, nontender BACK : Low back tenderness EXTREMITIES : Minimal LE swelling, no LE tenderness, left hand stump NEUROLOGIC : Coherent, no facial asymmetry, slightly hard of hearing, no other gross focality Principal Diagnosis Acute on chronic diastolic heart failure Hypoxia--Resolved Valvular heart disease Metabolic/toxic encephalopathy Atrial fibrillation Hypertensive urgency Discharge Data Allergies Allergy/AdvReac Type Severity Reaction Status Date / Time adhesive Allergy Mild BLISTER Verified 06/09/21 18:11 SKIN levofloxacin [From Levaquin] Allergy Unknown CAN'T Verified 06/09/21 18:11 REMEMBER duloxetine [From Cymbalta] AdvReac Intermediate confusion Verified 07/13/23 06:49 Consultations 07/13/23 03:42 ED Decision to Admit Stat 07/13/23 06:10 Consult Cardiology Routine Procedures Performed Laboratory Results WBC 5.06 K/ul (4.8-10.8) 07/15/23 06:00 RBC 4.13 M/uL (4.70-6.10) L 07/15/23 06:00 Hgb 15.0 g/dl (14.0-18.0) 07/15/23 06:00 Hct 43.2 % (42.0-52.0) 07/15/23 06:00 MCV 104.6 fL (80.0-100.0) H 07/15/23 06:00 MCH 36.3 pg (25.0-34.0) H 07/15/23 06:00 MCHC 34.7 g/dL (32.0-36.0) 07/15/23 06:00 RDW Std Deviation 51.8 fL (36.4-46.3) H 07/15/23 06:00 RDW Coeff of Neal 13.7 % (11.5-14.5) 07/15/23 06:00 Plt Count 196 K/uL (130-400) 07/15/23 06:00 MPV 9.9 fL (9.4-12.4) 07/15/23 06:00 Immature Gran % (Auto) 0.3 % 07/13/23 05:38 Neut % (Auto) 73.3 % 07/13/23 05:38 Lymph % (Auto) 16.3 % 07/13/23 05:38 [place] % (Auto) 9.1 % 07/13/23 05:38 Eos % (Auto) 0.7 % 07/13/23 05:38 Baso % (Auto) 0.3 % 07/13/23 05:38 Neut # (Auto) 5.01 K/uL (1.40-6.50) 07/13/23 05:38 Lymph # (Auto) 1.11 K/uL (1.20-3.40) L 07/13/23 05:38 [place] # (Auto) 0.62 K/uL (0.11-0.59) H 07/13/23 05:38 Eos # (Auto) 0.05 K/uL (0.00-0.50) 07/13/23 05:38 Baso # (Auto) 0.02 K/uL (0.00-0.20) 07/13/23 05:38 Immature Gran # (Auto) 0.02 K/uL (0.01-0.20) 07/13/23 05:38 APTT 29 Seconds (21-31) 07/13/23 05:38 PTT Ratio 1.0 07/13/23 05:38 Sodium 138 mmol/L (136-145) 07/15/23 06:00 Potassium 3.9 mmol/L (3.5-5.1) 07/15/23 06:00 Chloride 103 mmol/L (98-107) 07/15/23 06:00 Carbon Dioxide 29 mmol/L (21-32) 07/15/23 06:00 Anion Gap 6 (3-11) 07/15/23 06:00 BUN 28 mg/dl (6-23) H 07/15/23 06:00 Creatinine 0.82 mg/dl (0.6-1.4) 07/15/23 06:00 Est Cr Clr Drug Dosing 72.1 ml/min 07/15/23 06:00 Est GFR ( Amer) 94.1 ml/min 07/15/23 06:00 Est GFR (Non-Af Amer) 81.2 ml/min 07/15/23 06:00 BUN/Creatinine Ratio 34.1 (10-20) H 07/15/23 06:00 Glucose 84 mg/dl (70-99(Fasting)) 07/15/23 06:00 Calcium 9.1 mg/dl (8.6-10.3) 07/15/23 06:00 Magnesium 2.1 mg/dl (1.7-2.4) 07/14/23 06:15 Total Bilirubin 1.1 mg/dl (0.2-1.0) H 07/12/23 23:15 AST 31 U/L (13-39) 07/12/23 23:15 ALT 39 U/L (7-52) 07/12/23 23:15 Alkaline Phosphatase 68 U/L (34-104) 07/12/23 23:15 Troponin I High Sens 9.8 pg/ml (0-20) 07/13/23 05:38 B-Natriuretic Peptide 407 pg/ml (0-100) H 07/12/23 23:15 Total Protein 6.8 gm/dl (6.0-8.3) 07/12/23 23:15 Albumin 3.8 gm/dl (3.4-5.0) 07/12/23 23:15 Globulin 3.0 gm/dl (2.5-4.0) 07/12/23 23:15 Albumin/Globulin Ratio 1.3 (0.9-2) 07/12/23 23:15 Triglycerides 61 mg/dl (0-150) 07/13/23 05:38 Cholesterol 177 mg/dl (0-200) 07/13/23 05:38 LDL Cholesterol, Calc 96 mg/dl 07/13/23 05:38 VLDL Cholesterol, Calc 12 mg/dl (0-30) 07/13/23 05:38 HDL Cholesterol 69 mg/dl 07/13/23 05:38 Cholesterol/HDL Ratio 2.6 (0-5) 07/13/23 05:38 TSH 4.302 uIu/ml (0.300-4.500) 07/12/23 23:15 Urine Color Yellow 07/13/23 13:03 Urine Appearance Clear (Clear) 07/13/23 13:03 Urine pH 6.0 (4.5-7.5) 07/13/23 13:03 Ur Specific [place] 1.012 (1.000-1.030) 07/13/23 13:03 Urine Protein Negative (Negative) 07/13/23 13:03 Urine Glucose (UA) Negative (Negative) 07/13/23 13:03 Urine Ketones Negative (Negative) 07/13/23 13:03 Urine Blood Negative (Negative) 07/13/23 13:03 Urine Nitrite Negative (Negative) 07/13/23 13:03 Urine Bilirubin Negative (Negative) 07/13/23 13:03 Urine Urobilinogen Negative (Negative) 07/13/23 13:03 Ur Leukocyte Esterase Negative (Negative) 07/13/23 13:03 Adenovirus (PCR) Not Detected (NotDetected) 07/12/23 23:11 B. pertussis DNA (PCR) Not Detected (NotDetected) 07/12/23 23:11 B.parapertussis DNA PCR Not Detected (NotDetected) 07/12/23 23:11 C. pneumoniae DNA (PCR) Not Detected (NotDetected) 07/12/23 23:11 Coronavirus OC43 (PCR) Not Detected (NotDetected) 07/12/23 23:11 Coronavirus HKU1 (PCR) Not Detected (NotDetected) 07/12/23 23:11 Coronavirus 229E (PCR) Not Detected (NotDetected) 07/12/23 23:11 SARS-CoV-2 (PCR) Not Detected (NotDetected) 07/12/23 23:11 Coronavirus NL63 (PCR) Not Detected (NotDetected) 07/12/23 23:11 Human Metapneumovir PCR Not Detected (NotDetected) 07/12/23 23:11 Influenza Type A (PCR) Not Detected (NotDetected) 07/12/23 23:11 Influenza Type B (PCR) Not Detected (NotDetected) 07/12/23 23:11 M. pneumoniae (PCR) Not Detected (NotDetected) 07/12/23 23:11 Parainfluenza 1 (PCR) Not Detected (NotDetected) 07/12/23 23:11 Parainfluenza 2 (PCR) Not Detected (NotDetected) 07/12/23 23:11 Parainfluenza 3 (PCR) Not Detected (NotDetected) 07/12/23 23:11 Parainfluenza 4 (PCR) Not Detected (NotDetected) 07/12/23 23:11 RSV (PCR) Not Detected (NotDetected) 07/12/23 23:11 Entero/Rhino (PCR) Not Detected (NotDetected) 07/12/23 23:[address] 07/13/23 00:53 Exam(s): CT HEAD Without Contrast EXAM: CT Head Without Intravenous Contrast CLINICAL HISTORY: Reason for exam: confusion. TECHNIQUE: Axial computed tomography images of the head/brain without intravenous contrast. CTDI is 37.01 mGy and DLP is 625.8 mGy-cm. Automated exposure control was utilized for the study. A dose lowering technique was utilized adhering to the principles of ALARA. COMPARISON: 05/24/2013 MRI examination. FINDINGS: Brain: Moderate generalized brain atrophy. No hemorrhage. No significant white matter disease. Ventricles: Unremarkable. No ventriculomegaly. Bones/joints: Unremarkable. No acute fracture. Soft tissues: Unremarkable. Sinuses: Unremarkable as visualized. No acute sinusitis. Mastoid air cells: Unremarkable as visualized. No mastoid effusion. Other findings: Decreased attenuation within the deep, like compatible with microangiopathic disease. IMPRESSION: Chronic changes as described with no acute intracranial hemorrhage or space-occupying lesion. Electronically signed by: Kell Zeng MD 07/13/23 03:21 AM Chest X-Ray 07/15/23 07:17 XR chest 2V PA/lateral CLINICAL HISTORY: CHF, compare TECHNIQUE: 2 views of the chest were obtained. Comparison: Comparison is made to chest radiograph 07/13/2023 FINDINGS: No lines and tubes are seen. The cardiomediastinal silhouette is normal. The lungs are clear. No evidence of pleural effusion or pneumothorax. IMPRESSION: Cardiomegaly without evidence of CHF. ACT 112: Negative or not required by law. Electronically signed by: Osvaldo Castellanos M.D. 07/15/2023 8:51 AM Ordered Studies 07/13/23 00:53 CT head/brain wo con Stat Hospital Course (1) Decompensated heart failure: Acute on chronic diastolic heart failure Hypoxia secondary to above Valvular heart disease Severe mitral regurgitation S/P surgery H/O tricuspid regurgitation --CXR:Cardiomegaly with mild pulmonary vascular congestion. A small left pleural effusion and left basilar densities have progressed. This could represent atelectasis or pneumonia. --ECHO: Mild concentric LVH. Left ventricle wall motion is normal. Left ventricle systolic function is normal. EF 55 to 60%. Left atrium is severely dilated. Evidence of percutaneous mitral valve clip. Mild mitral and tricuspid regurgitation. Pulmonary artery systolic pressure estimated to be 51 mmHg. Repeat chest x-ray on 07/15/2023:Cardiomegaly without evidence of CHF. Monitor volume status, I/Os, daily weight Appreciate cardiology input Continue metoprolol, lisinopril Received IV Lasix 2 step: Did not qualify for supplemental oxygen Plan to discharge on Lasix 20 mg 3 times a week (Wednesday, Wednesday, Wednesday) Needs follow-up with cardiology with repeat BMP as outpatient Hypertensive urgency Likely due to uncontrolled pain Continue lisinopril, metoprolol BP much improved Persistent atrial fibrillation S/P Watchman procedure Continue metoprolol Monitor and adjust medications as needed Chest pain Likely multifactorial secondary to hypertensive urgency, volume overload Troponins x 2 negative EKG showed nonspecific T wave abnormality in inferior, lateral leads Normal lipid panel Echo as above Continue aspirin 81 mg daily Currently denies any chest pain Altered mental status Metabolic/toxic encephalopathy ? Secondary to Cymbalta DD: Hypoxia contributing as well --CT Head:Chronic changes as described with no acute intracranial hemorrhage or space-occupying lesion. Urine analysis within normal limits BioFire negative Reorient frequently to minimize delirium Mental status seem to be back to baseline Chronic back pain H/O sacroiliitis H/O lumbar laminectomy for severe lumbar spinal stenosis Last SI joint injection was 1 month ago per record Patient declined lumbosacral MRI and additional injections Cymbalta held due to change in mental status Cautious use of pain medications Other chronic conditions: H/O PVD DEX/CSA BiPAP intolerant Pprediabetes, hemoglobin A1c of 5.6 last year BPH MCTD as per records Anxiety/mood disorder Gout Continue appropriate home medications Obesity BMI 37 DVT Px: Lovenox SQ Code Status Full code Disposition Patient not interested in rehab placement Plan to discharge Home with home health Total Time Total Time Spent Total Time Spent (In Minutes): 65 minutes Discharge Plan Discharge Items Patient Disposition: Home - Home Health Services Reason For Visit: CHF Discharge Diagnosis: Acute on chronic diastolic heart failure Hypoxia--Resolved Valvular heart disease Altered mental status Atrial fibrillation Activity: Per Instructions section Exercise/Sports: Wait until after follow-up appointment Non-emergency contact: Primary Care Provider and Completions Engineer Call non-emergency contact if: you have any medication questions, your pain is concerning for you and you have a fever Follow-up/Referrals: Gm Walsh DO [Completions Engineer] - (The Cardiology office will contact you for a follow up appointment.) Benny Waite DO [Primary Care Provider] - 07/21/23 1:20 pm Diet: Heart Healthy Addtl Attending Provider Instructions: Follow-up with your primary care physician Dr. Waite on 07/21/23 at 1:20PM Follow-up with your cream buyer as recommended -- Get blood test (basic metabolic panel) in 1 week and follow-up with your primary care physician with results. -- Monitor your blood pressure regularly at home. Discuss with your primary care physician for further adjustment of medications as needed. Seek immediate medical attention if your symptoms reoccur or worsen Please take all medications as instructed on discharge list below. Please call if you have any questions or problems. You can reach a [facility] hospitalist on duty at [facility] 24 hours a day by calling [phone] Call your Primary Care doctor if any of the following symptoms or problems start or get worse: * Shortness of breath or difficulty breathing * Wake up at night short of breath * Chest pain * Cough * Swelling of your hands, feet, or legs * More fatigued or tired with your normal activity * Palpitations - sudden fast heart beats WEIGHT * Weigh yourself every morning after using the bathroom. * Use the same scale. * Wear the same amount of clothing. * Write your weight down on a chart. * Call your Primary Care doctor if you gain more than 2-3 pounds in 1-2 days. MEDICATIONS * Use this discharge instruction sheet for medication instructions. * Take your medications at the time your doctor ordered. * Do not skip a dose of your medicines. * If you miss a dose of medicine, take it as soon as possible, but DO NOT DOUBLE A DOSE. * Read your medicine information when you get home. * Know all of the side effects of your medicine. If in doubt, ask your pharmacist * Call your Primary Care doctor's office if you have any side effects. * Be sure all of your doctors know what medicine and herbs you take (including cold, flu, and herbal medicine). Take the following with you to your follow-up doctor appointments: * Weight Chart * Medication List * List of questions Do not drink excessive alcohol, beer or wine. Pending Studies at Discharge: No Stand-Alone Forms: My [facility], Smoking Cessation Medications and DC Order Prescriptions: New metoprolol succinate 25 mg Tablet Extended Release 24 Hr 25 mg PO QAM Qty: 30 1RF lisinopril 2.5 mg Tablet 2.5 mg PO QAM Qty: 30 1RF furosemide [Lasix] 20 mg tablet 20 mg PO UD Qty: 30 1RF Rx Instructions: Three times a week (Wednesday, Wednesday and Wednesday only) as advised Continued tramadol 50 mg tablet 50 mg PO Q6 PRN (Reason: pain,severe) buspirone 5 mg tablet 5 mg PO AMHS allopurinol 300 mg tablet 300 mg PO QAM meclizine 12.5 mg Tablet 12.5 mg PO BID PRN (Reason: Dizziness) acetaminophen 500 mg Tablet 1,000 mg PO AMPM docusate sodium 100 mg Capsule 100 mg PO BID aspirin [Aspirin Child] 81 mg Tablet,Chewable 81 mg PO QAM gabapentin 300 mg capsule See Rx Instructions .ROUTE .COMPLEX Rx Instructions: 600 mg orally in the am and 300 mg orally in the pm finasteride 5 mg tablet 5 mg PO QAM Discontinued metoprolol succinate 25 mg Tablet Extended Release 24 Hr 12.5 mg PO QAM duloxetine 30 mg capsule,delayed release(DR/EC) 30 mg PO DAILY Discharge Orders: Discharge Order (Routine); Ordered 07/15/23 Ordered By: Jose Wagner Admission Data Admit Date/Time: 07/13/23 04:57 Attending Provider: Jose Wagner Admit Provider: Tello Mendez Primary Care Provider: Benny Waite Other Providers: Tello Mendez; Ale Hicks; Gm Walsh; Casimiro Barraza; Josue Delvalle; Lobito Strong; Júnior Coppola; Rosalba Unger cca; Haritha Chua; Ale Leon; Lucian Snider; Daniel Treadwell; Aleksandra Berger; Sherice Schmitz; Erin Anguiano; Asael Branch
== END 2023-07-15 15:58 | disposition home health service (06) | DRG 291 ==
LOC: ED 23:01 → EDINP 07-13 04:57 → 4W 07-13 06:10

== ENCOUNTER 2023-12-04 10:05 | Inpatient (IN) ==
--- OUTSIDE RECORDS SUMMARY | 2023-12-04 10:13 | External Medical Summary | Summary of Care ---
Author Name Unknown Organization [facility] Address [address] [facility] [place] [address] Phone [phone] Care Team Providers Care Infusion Rn Name Role Phone Benny Waite DO Primary Care Provider Reason for Visit * Reason Onset Date Comments Appointment 12/03/2023 Fitness eval Encounter Details Date Type Department Care Team (Late st Contact Info) Description 12/03/2023 Telephone Family Practice [address] [facility], [place] [address] [place] [phone] Benny Waite DO [address] [place] [address] Appointment (Fitness eval) Allergies Active Allergy Reactions Criticality Noted Date Comments Adhesive Tape 02/04/2017 Duloxetine High 07/13/2023 Other Reaction(s): confusion Levofloxacin 09/01/2019 documented as of this encounter (statuses as of 12/03/2023) Medications Medication Sig Dispensed Refills Start Date End Date Status Acetaminophen 500 MG Oral Tablet TAKE 1 IN THE MORNING AND 2 IN THE EVENING Active Aspirin 81 MG Oral Tablet Chewable Take by mouth 1 Tablet in the morning. Do not start before February 06, 2022. 02/06/2022 Active Docusate Sodium 100 MG Oral Capsule Take 1 Capsule by mouth in the morning and 1 Capsule before bedtime. Active Allopurinol 300 MG Oral Tablet (Zyloprim) Take 1 Tablet by mouth in the morning. 100 Tablet 3 05/16/2023 Active Finasteride 5 MG Oral Tablet (Proscar)Indicatio ns:BPH with obstruction/lower urinary tract symptoms TAKE ONE TABLET BY MOUTH EVERY MORNING 100 Tablet 2 05/25/2023 Active Gabapentin 300 MG Oral Capsule (Neurontin)Indicat ions:Acute bilateral low back pain without sciatica TAKE ONE CAPSULE BY MOUTH THREE TIMES A DAY 300 Capsule 3 08/08/2023 08/07/2024 Active Metoprolol Succinate ER 25 MG Oral Tablet Extended Release 24 Hour (toPROL XL)Indications:Chr onic atrial fibrillation (HCC),CHF (congestive heart failure), NYHA class I, chronic, diastolic (HCC) Take 1 Tablet by mouth daily. 90 Tablet 3 08/09/2023 08/08/2024 Active traMADol HCl 50 MG Oral Tablet (Ultram)Indication s:Permanent atrial fibrillation (HCC),Lumbar degenerative disc disease TAKE ONE TABLET BY MOUTH IN THE MORNING, ONE TABLET AT NOON, AND ONE TABLET IN THE EVENING 90 Tablet 10/29/2023 Active Ondansetron HCl 4 MG Oral TabletIndications: Nausea Take 1 Tablet by mouth every 8 hours as needed for Nausea. 30 Tablet 11/09/2023 Active Meclizine HCl 12.5 MG Oral Tablet (Antivert) Take 1 Tablet by mouth 2 times a day as needed for Dizziness. 60 Tablet 3 11/15/2023 Active Sertraline HCl 25 MG Oral Tablet (Zoloft)Indication s: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) Take 1 Tablet by mouth in the morning. 30 Tablet 5 11/22/2023 Active Furosemide 40 MG Oral Tablet (Lasix)Indications :CHF (congestive heart failure), NYHA class I, chronic, diastolic (HCC),HTN, goal below 150/90 Take 1 Tablet by mouth in the morning. 100 Tablet 3 11/22/2023 Active oxygen IN GASIndications:CHF (congestive heart failure), NYHA class I, chronic, diastolic (HCC) Administer 2 L/min(Oxygen) into nostril continuous. 1 Each 11/22/2023 Active DIURETIC TITRATION PLAN If no improvement on day 3, contact heart failure managing provider. 1 Each 12/01/2023 Active documented as of this encounter (statuses as of 12/03/2023) Active Problems Problem Noted Date Diagnosed Date Chronic respiratory failure with hypoxia 024 HTN, goal below 150/90 11/22/2023 Constipation 10/26/2023 Last Assessment & Plan: New issue. Reports he generally moves his bowels daily. No BM for a week. Some mild abdominal discomfort, he is able to pass gas. No nausea or vomiting. He took a dose of MiraLax and stool softener last night without results. He will go to [facility] for abdominal x-ray today to rule out any obstruction. Dulcolax suppository sent to his pharmacy to use when he gets home, after getting his x-ray. Also discussed fleets enema and he refuses. He will try suppository 1st. Intake to follow up tomorrow. History of CVA (cerebrovascular accident) 2023 Last Assessment & Plan: BP at goal Continues aspirin LDL 89. It was briefly discussed at Neurology the possibility of starting a statin for LDL goal less than 70-2 defer further discussion with PCP Rectal bleeding 08/11/2023 Last Assessment & Plan: Pt reports this is not new and ongoing for one year. Bright red, known hemorrhoids. Had CBC done 08/05 and normal, reports no increased bleeding since that lab draw or since taking plavix. Will share note with PCP [facility]. 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 Not on statin--LDL 89. Will defer to PCP to add statin--goal <70 BP at goal today. 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 He continues BuSpar. Moderate to severe mitral regurgitation 04/03/20 Lumbar degenerative disc disease 04/03/2021 Last Assessment & Plan: Ambulates without assistive device Continues prn tylenol and gabapentin DEX (obstructive sleep apnea) 10/01/2020 Last Assessment & Plan: Intolerant to CPAP Encounter for long-term (current) use of medicat ions 05/09/2019 CHF (congestive heart failur e), NYHA class I, chronic, diastolic 05/02/2019 Last Assessment & Plan: "RED FLAG" HF Symptoms: Leg Swelling (Examples: "I can't wear certain socks or shoes", "My pants feel tight") Medication Regimen: Beta Josemanuel Therapy: Metoprolol Succinate (ER) COLE Inhibitor/ARB Therapy: No COLE/ARB/ARNI secondary to: DC by PCP Diuretic therapy: Lasix SGLT2 Inhibitor: No Current SGLT2 (Describe in the Comments) Remote Patient Monitoring V[place] [facility] [place] Device(s): Connected Scale Self - Management Plan Double dose of Furosemide for 3 days Exacerbation Plan BMP Chest X-Ray Additional Comments: Euvolemic today. He has had a weight gain but he has not had a bowel movement in over 1 week. 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 documented as of this encounter (statuses as of 12/03/2023) Resolved Problems Problem Noted Date Diagnosed Date Resolved Date 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) 11/16/2022 07/23/2023 Severe obesity with body mas s index (BMI) of 35.0 to 39.9 with serious comorbidity 04/24/2022 Aortic root enlargement 10/01/202001/12 Enlarged aorta 05/02/2019 08/19/2020 Senile purpura 05/02/2019 08/19/2020 Mixed connective tissue disease 05/07/2018 08/19/2020 Chronic atrial fibrillation 01/18/2018 12/11/2022 documented as of this encounter (statuses as of 12/03/2023) Immunizations Name Administration Dates Next Due COVID-19 mRNA, LNP-s, No Pre serve, 2-Dose Series (Moderna) 08/20/2020,07/17/2020 COVID-19 mRNA, LNP-s, No Pre serve, 2-Dose Series (Pfizer) 05/14/2021 COVID-19, LNP-s, No Preserve , Robbie-sucrose, Ages 12+ (Pfizer) 11/04/2021 COVID-19, MRNA-LNP, 23-24, P F, 30 MCG/0.3 mL, 12 YRS AND ABOVE, IM ([facility]) 11/29/2023,04/16/2023 Covid-19, Mrna, Lnp-s, Pf, B ivalent, 30 Mcg, IM, 12 yrs and above (Fidelis) 03/17/2022 Pneumococcal Conjugate Vacc, 13 Valent (Prevnar) [...] Answer Date Recorded PHQ Adult Total Score 19 11/10/2023 Hunger Vital Sign Answer Date Recorded Within the past 12 months, y ou worried that your food would run out before you got the money to buy more. Never true 07/30/19 24 Within the past 12 months, t he food you bought just didn't last and you didn't have money to get more. Never true 07/30/2023 Childcare Answer Date Recorded Do you feel overwhelmed with taking care of a child, family member or friend? Yes 07/30/2023 Does your family need help f inding childcare? (Household - for ages 0-17 years) Not on file 07/30/2023 Clothing Answer Date Recorded Have you been unable to get clothing when it was really needed? No 07/30/2023 Is your family able to get c lothes or diapers when needed? (Household - for ages 0-17 years) Not on file 07/30/2023 Personal Safety Answer Date Recorded Do you feel unsafe or have concerns for your saf ety? No 07/30/2023 Do you have concerns for you r family's safety? (Household - for ages 0-17 years) Not on file 07/30/2023 Utilities Answer Date Recorded Do you have trouble paying y our heating, water, or electric bill? Yes 07/30/2023 Is your family able to pay t he heat, water, or electric bill? (Household - for ages 0-17 years) Not on file 07/30/2023 Does your family have access to good internet? (Household - for ages 0-17 years) Not on file 07/30/2023 Employment Status Answer Date Recorded Are you unemployed or without regular income? No 07/30/2023 Does the household have a re gular source of income? (Household - for ages 0-17 years) Not on file 07/30/2023 Social Connections Answer Date Recorded How often do you feel lonely or isolated from th ose around you? Often 07/30/2023 Financial Resource Strain Answer Date R ecorded Do you have any trouble payi ng for your medications, or do you think you might in the future? No 07/30/2023 Does your family have troubl e paying for medicine? (Household - for ages 0-17 years) Not on file 07/30/2023 Transportation Needs Answer Date Record ed READ ONLY Do you have troubl e getting a ride to medical visits or work? Never True 07/30/2023 Does your family have a hard time getting a ride to doctors visits? (Household - for ages 0-17 years) Not on file 07/30/2023 Has lack of transportation k ept you from medical appointments, meetings, work, or from getting things needed for daily living? Check all that apply. (Adult - for ages 18 years and over) Not on file 07/30/2023 Do you (or your family) have trouble finding or paying for a ride (transportation)? (Household - for ages 0-17 years) Not on file 07/30/2023 Housing Stability Answer Date Recorded Do you currently live in a s helter or have no steady place to sleep at night? No 07/30/2023 READ ONLY Do you think you a re at risk of becoming homeless? No 07/30/2023 Does your family worry about paying for your home or becoming homeless? (Household - for ages 0-17 years) Not on file 0 07/30/2023 Are you homeless or worried that you might be in the future? (Adult - for ages 18 years and over) Not on file Are you (or your family) lila eless or worried that you might be in the future? (Household - for ages 0-17 years) Not on file Food Insecurity Answer Date Recorded Do you need food for this week? No 07/30/2023 Are you able to get enough f ood for your family? (Household - for ages 0-17 years) Not on file 07/30/2023 Does your family need food t his week? (Household - for ages 0-17 years) Not on file 07/30/2023 Do you always have enough fo od for your family? (Household - for ages 0-17 years) Not on file 07/30/2023 Sex and Gender Information Value Date Recorded [...] Miscellaneous Notes * Telephone Encounter - Macy West OSA - 12/03/2023 4:37 PM EDT Please contact pt for a fitness eval. documented in this encounter Plan of Treatment Upcoming Encounters Date Type Department Care Team (Late st Contact Info) Description 12/03/2023 5:00 PM EDT Scheduled Telephone [facility] [place] [address] [place] [address] Coordinator, [facility] [address] [place] [address] [address] 12/13/2023 11:20 AM EDT Office Visit Family Practice [address] [facility] [address] [place] [address] Benny Waite, [address] [place] [address] 12/17/2023 8:30 AM EDT Home Visit [facility], [facility] [address] [facility] [place] [address] Myrtle Allen, MICHELLE [address] [facility] [place] [address] 12/21/2023 11:00 AM EDT Nurse Only Ancillary [address] [place] [address] [address] [place] [address] College, Nurse Annual Wellness Visit [address] [place] [address], [place] [address] 01/05/2024 10:30 AM EDT Office Visit Cardiology, [facility] [address] [facility] [place] [address] Júnior Coppola, PAClifC [address] [facility] [place] [address] 01/12/2024 8:30 AM EDT Office Visit Cardiology, [facility] [address] [facility] [place] [address] Franco Mcgregor MD [address] [place] [address] 01/25/2024 1:00 PM EDT Telemedicine [facility], [facility] [address] [place] [address] Yadira Omalley CRNP [address] [place] [address] Ines Castro, [facility] [address] [place] [address] 02/15/2024 8:00 AM EDT Office Visit Cardiology, [facility] [address] [place] [address] Casimiro Barraza MD [address] [place] [address] 05/15/2024 1:20 PM EST Office Visit [facility] [place] [address] George Ferrer PA-C [address] [place] [address] Health Maintenance Due Date Last Done Comments Depression Monitoring 11/09/2024 11/10/2023 , 10/12/2023, 10/12/2023, Additional history exists Albumin/Creatinine Ratio 04/20/2026 04/20/2023 DTaP,Tdap,and Td Vaccines (2 - Td or Tdap) 04/20/2028 04/20/2018 Pneumococcal Vaccine: 65+ Years Completed 05/02/2019, 04/20/2018 Zoster Vaccines Completed 12/13/2019, 08/2019, 04/18/2015 Influenza Vaccine (FLU shot) Completed 01/2023, 03/12/2022, 03/13/2021, Additional history exists COVID-19 Vaccine Completed 11/29/2023, 08/2022, 03/17/2022, Additional history exists GARDASIL-HPV IMMUNIZATION SERIES Aged Out No longer eligible based on patient's age to complete this topic Hepatitis B Aged Out No longer eligi ble based on patient's age to complete this topic MENINGOCOCCAL (MENACTRA/MENVEO) Aged Out No longer eligible based on patient's age to complete this topic documented as of this encounter Medical Devices Implanted Type Area Road Production General Manager Device Identifier Shelf Expiration Date Model / Serial / Lot Device Watchman Flx 35mm - [id number] Implanted:Qty: 1 on 02/05/2022 by Diamond Teran IV, MD at [facility] [employer] : INTRV CARD [id number] 10/20/2024 [id number] / / [id number] Cath Thermodilution 6fr - [id number] Implanted:Qty: 1 on 07/31/2022 by Franco Mcgregor MD at [facility] [employer] [id number] 04/30/2024 [id number] / / [id number] Mirtaclip G4 - [id number] Implanted:Qty: 1 on 11/16/2022 at [facility] [employer] 06/25/2023 [id number] / / [id number] Clip Delivery Sytem G4 Xtw - [id number] Implanted:Qty: 1 on 11/16/2022 at [facility] [employer] [id number] 08/10/2023 [id number] / / [id number] Clip Delivery Sytem G4 Xtw - [id number] Implanted:Qty: 1 on 11/16/2022 at [facility] [employer] [id number] 09/10/2023 [id number] / / [id number] documented as of this encounter Advance Directives * Full Code (Latest Code Status on File) Date Activated Date Inactivated Comments 11/16/2022 4:24 PM 11/17/2022 8:54 PM This order ref lects the patients wishes and were consensually agreed upon. Question Answer Comments Discussion of Advance Directives occurred with: Patient * Full Code Date Activated Date Inactivated Comments 02/05/2022 9:21 AM 02/06/2022 2:35 PM This order r eflects the patients wishes and were consensually agreed upon. Question Answer Comments Discussion of Advance Directives occurred with: Patient * Full Code Date Activated Date Inactivated Comments 09/13/2012 2:00 PM 09/14/2012 5:59 PM This order ref lects the patients wishes and were consensually agreed upon. Question Answer Comments Discussion of Advance Directives occurred with: Not Discussed * Full Code Date Activated Date Inactivated Comments 10/22/2011 4:13 PM 10/23/2011 5:41 PM This order r eflects the patients wishes and were consensually agreed upon. Care Teams Infusion Rn Relationship Specialty Start Date End Date Benny Waite DO [address] [facility] [place] [address] PCP - General Internal Medicine 11/25/23 documented as of this encounter
--- OUTSIDE RECORDS SUMMARY | 2023-12-04 10:14 | External Medical Summary | Summary of Care ---
Author Name Unknown Organization [facility] Address [address] [address] [address] Phone [phone] Care Team Providers Care Harvest Worker Fruit Name Role Phone Benny Waite DO Primary Care Provider [phone] Reason for Visit * Reason Comments Dosage Adjustment In Person (Anticoag Cl inic) Medication Management Encounter Details Date Type Department Care Team (Late st Contact Info) Description 12/03/2023 8:30 AM EDT Pharmacy Family Practice [address] [phone] College, Pharmacist [address] [address] Medication management* Allergies Active Allergy Reactions Criticality Noted Date [...] 05/16/2023 Active Finasteride 5 MG Oral Tablet (Proscar)Indicati ons:BPH with obstruction/lower urinary tract symptoms TAKE ONE TABLET BY MOUTH EVERY MORNING 100 Tablet 2 05/25/2023 Active Gabapentin 300 MG Oral Capsule (Neurontin)Indica tions:Acute bilateral low back pain without sciatica TAKE ONE CAPSULE BY MOUTH THREE TIMES A DAY 300 Capsule 3 08/08/2023 5 Active Metoprolol Succinate ER 25 MG Oral Tablet Extended Release 24 Hour (toPROL XL)Indications:Ch ronic atrial fibrillation (HCC),CHF (congestive heart failure), NYHA class I, chronic, diastolic (HCC) Take 1 Tablet by mouth daily. 90 Tablet 3 08/09/2023 5 Active traMADol HCl 50 MG Oral Tablet (Ultram)Indicatio ns:Permanent atrial fibrillation (HCC),Lumbar degenerative disc disease TAKE ONE TABLET BY MOUTH IN THE MORNING, ONE TABLET AT NOON, AND ONE TABLET IN THE EVENING 90 Tablet 10/29/2023 Active Ondansetron HCl 4 MG Oral TabletIndications :Nausea Take 1 Tablet by mouth every 8 hours as needed for Nausea. 30 Tablet 11/09/2023 Active Meclizine HCl 12.5 MG Oral Tablet (Antivert) Take 1 Tablet by mouth 2 times a day as needed for Dizziness. 60 Tablet 3 11/15/2023 Active Sertraline HCl 25 MG Oral Tablet (Zoloft)Indicatio ns:Current 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 ([facility]) Take 1 Tablet by mouth in the morning. 30 Tablet 5 11/22/2023 Active Furosemide 40 MG Oral Tablet (Lasix)Indication s:CHF (congestive heart failure), NYHA class I, chronic, diastolic (HCC),HTN, goal below 150/90 Take 1 Tablet by mouth in the morning. 100 Tablet 3 11/22/2023 Active oxygen IN GASIndications:CH F (congestive heart failure), NYHA class I, chronic, diastolic (HCC) Administer 2 L/min(Oxygen) into nostril continuous. 1 Each 11/22/2023 Active DIURETIC TITRATION PLAN If no improvement on day 3, contact heart failure managing provider. 1 Each 12/01/2023 Active Senna 8.6 MG Oral CapsuleIndication s:Constipation, unspecified constipation type Take 8.6 mg by mouth daily. 08/12/2023 4 Discontinue d(Medicatio n List Clean Up) Proventil HFA 108 (90 Base) MCG/ACT Inhalation Aerosol Solution Inhale 2 Puffs by mouth 3 times a day as needed for Dyspnea, Cough or Wheezing. 6.7 g 3 09/10/2023 4 Discontinue d(Medicatio n List Clean Up) documented as of this encounter (statuses as [...] night without results. He will go to [facility] for abdominal x-ray today to rule out [...] with PCP to further evaluate tomorrow at appt. 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 Not on statin--LDL 89. Will defer to PCP to add statin--goal <70 BP at goal today. 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 He continues BuSpar. Moderate to severe mitral regurgitation 04/03/20 21 Lumbar degenerative disc disease 04/03/2021 Last Assessment [...] in the Comments) Remote Patient Monitoring Vendor: [facility] Device(s): Connected Scale Self - Management Plan [...] mRNA, LNP-s, No Pre serve, 2-Dose Series ([employer]) 05/14/2021 COVID-19, LNP-s, No Preserve , Robbie-sucrose, Ages 12+ (Pfizer) 11/04/2021 COVID-19, MRNA-LNP, 23-24, P F, 30 MCG/0.3 mL, 12 YRS AND ABOVE, IM ([facility]) 11/29/2023,04/16/2023 Covid-19, Mrna, Lnp-s, Pf, B ivalent, [...] as of this encounter Progress Notes * Antonietta Nguyễn, [facility] - 12/03/2023 8:34 AM EDT Medication Therapy [facility] - Medication Reconciliation Nikolas Silvestre is an 83 year old being seen for medication reconciliation. Med Rec Reason: Other Prescription insurance information: SAUL Haq Do you have any other prescription coverage: Yes, PACE Preferred pharmacy: [facility] [x] Problem list reviewed [x] Allergies reviewed and updated if needed [x] Drug interaction check completed [x] HEDIS list addressed Immunizations: Up to Date Medication Organization/Adherence: Has home care nurse or caregiver: no but is visited by @ Patient uses a pill box? Yes, refill(s) completed by self When you are at home, how often do you miss doses of medications? Less than once a week How difficult is it for you to pay for your medications? Somewhat difficult How often do you experience side effects from your medications? Never Labs/Vitals/Risk Scores: The ASCVD Risk score (Lul SUN, et al., 2019) failed to calculate for the following reasons: The 2019 ASCVD risk score is only valid for ages 40 to 79 The patient has a prior ID or stroke diagnosis BP Readings from Last 3 Encounters: 11/29/23 118/62 11/24/23 120/85 11/22/23 118/74 Recent Labs Units 07/02/22 0908 HEMOGLOBIN A1C - [facility] % 5.6 Recent Labs Units 11/29/23 1407 09/28/23 0933 08/05/23 1330 ESTIMATED GLOMERULAR FILTRATION RATE - [facility] mL/min 61 71 69 Serum creatinine: 1.2 mg/dL 11/29/23 1407 Estimated creatinine clearance: 51.2 mL/min Assessment & Plan: Medication discrepancies identified: patient brought in bottles today. Had two strengths of furosmide in his box - removed 20 mg dose and put in labelled bag for patient in case we need to decrease his dose in future. Dose/frequency of medications appropriate for current renal function? yes Other medication problems identified: patient notes some inconsistent bowels - discussed trying miralax. Also reports he taking Coricidin HBP Cold and Flu which helps his pain. Discussed that this contains acetaminophen and chlorpheniramine. The acetaminophen is helping the tramadol, but the chlorph eniramine is a 1st gen antihistamine and can cause constipation, dry mouth, confusion, and falls. Advised to try increasing acetaminophen rather than taking the cold medicine. Patient education provided: per above Referral pended for follow up management of: N/A Summary- Changes & Recommendations: Med rec completed with patient at his request. Antonietta Marroquin [facility] Clinical Pharmacist - Emergency Veterinary Assistant Medication Therapy Management Clinic 12/03/2023, 8:35 AM documented in this encounter Plan of Treatment Upcoming Encounters Date Type Department Care Team (Late st Contact Info) Description 12/03/2023 3:30 PM EDT Office Visit Interventional Pain Center, [facility] [address] [place] [address] Luann Guerra PA-C 132 [facility] [place] [address] 12/03/2023 5:00 PM EDT Scheduled Telephone [facility] [address] [place] [address] Coordinator, [facility] [address] [facility] [place] [address] 12/13/2023 11:20 AM EDT Office Visit Family Practice [address] [place] [address] 293 [place] [address] Benny Waite DO 293 [place] [address] 12/17/2023 8:30 AM EDT Home Visit [facility], [facility] [address] [place] [address] Myrtle Allen, RN [address] [place] [address] 12/21/2023 11:00 AM EDT Nurse Only Ancillary 65 [facility] 293 [place] [address] College, Nurse Annual Wellness Visit [address] [place] [address] 01/05/2024 10:30 AM EDT Office Visit Cardiology, [facility] [address] [place] [address] Júnior Coppola PA-C [address] [place] [address] 01/12/2024 8:30 AM EDT Office Visit Cardiology, [facility] 132 [facility] [place] [address] Franco Mcgregor MD [address] [place], [place] [id number] 01/25/2024 1:00 PM EDT Telemedicine [facility], [facility] [address] [place] [address] Yadira Omalley CRNP [address] [place] [address] Ines Castro, Community Health Etl Database Developer [address] [place] [address] 02/15/2024 8:00 AM EDT Office Visit Cardiology, [facility] [place] [address] Casimiro Barraza MD [address] [place] [address] 05/15/2024 1:20 PM EST Office Visit Otolaryngology [facility] [address] [place] [address] George Ferrer PA-C [address] [place] [address] Health Maintenance Due Date Last Done Comments [...] this encounter Medical Devices Implanted Type Area Dramatic Director Device Identifier Shelf Expiration Date Model / Serial / Lot Device Watchman Flx 35mm - [id number] Implanted:Qty: 1 on 02/05/2022 by Diamond Teran IV, MD at [facility] [place] INTRV CARD [id number] 10/20/2024 [id number] / / [id number] Cath Thermodilution 6fr - [id number] Implanted:Qty: 1 on 07/31/2022 by Franco Mcgregor MD at [facility] [employer] [id number] 04/30/2024 [id number] / / [id number] Mirtaclip G4 - [id number] Implanted:Qty: 1 on 11/16/2022 at [facility] [employer] 06/25/2023 [id number] / / [id number] Clip Delivery Sytem G4 Xtw - [id number] Implanted:Qty: 1 on 11/16/2022 at [facility] [employer] [id number] 08/10/2023 [id number] / / [id number] Clip Delivery Sytem G4 Xtw - [id number] Implanted:Qty: 1 on 11/16/2022 at [facility] [employer] [id number] 09/10/2023 [id number] / / [id number] documented as of this encounter Visit Diagnoses Diagnosis Medication management- Primary Encounter for long-term (current) use of other medications documented in this encounter Advance Directives * Full Code [...] and were consensually agreed upon. Care Teams Harvest Worker Fruit Relationship Specialty Start Date End Date Benny Waite DO [address] [facility] [place] [address] PCP - General Internal Medicine 11/25/23 documented as of this encounter
--- OUTSIDE RECORDS SUMMARY | 2023-12-04 10:14 | External Medical Summary | Summary of Care ---
Author Name Unknown Organization [facility] Address [address] [facility] [place] [address] Phone [phone] Care Team Providers Care Hogshead Cooper Name Role Phone Benny Waite DO Primary Care Provider [phone] Reason for Visit * Reason Onset Date Comments Test Results 11/30/202311/29 Encounter Details Date Type Department Care Team (Late st Contact Info) Description 11/30/2023 Telephone Family Practice [address] [place] [address] [place] [address] Benny Waite DO [address] [place] [address] Test Results (11/29) Allergies Active Allergy Reactions Criticality Noted Date Comments Adhesive Tape 02/04/2017 Duloxetine High 07/13/2023 Other Reaction(s): confusion Levofloxacin 09/01/2019 documented as of this encounter (statuses as of 11/30/2023) Medications Medication Sig Dispensed Refills Start Date [...] noon and 1 Capsule in the evening. Active Allopurinol 300 MG Oral Tablet (Zyloprim) Take 1 Tablet by mouth in the morning. 100 Tablet 3 05/16/2023 Active Finasteride 5 MG Oral Tablet (Proscar)Indication s:BPH with obstruction/lower urinary tract symptoms TAKE ONE TABLET BY MOUTH EVERY MORNING 100 Tablet 2 05/25/2023 Active Gabapentin 300 MG Oral Capsule (Neurontin)Indicati ons:Acute bilateral low back pain without sciatica TAKE ONE CAPSULE BY MOUTH THREE TIMES A DAY 300 Capsule 3 08/08/2023 08/07/2024 Active Metoprolol Succinate ER 25 MG Oral Tablet Extended Release 24 Hour (toPROL XL)Indications:Yacht Builder gunjan atrial fibrillation (HCC),CHF (congestive heart failure), NYHA class I, chronic, diastolic (HCC) Take 1 Tablet by mouth daily. 90 Tablet 3 08/09/2023 08/08/2024 Active Senna 8.6 MG Oral CapsuleIndications: Constipation, unspecified constipation type Take 8.6 mg by mouth daily. 08/12/2023 Active Proventil HFA 108 (90 Base) MCG/ACT Inhalation Aerosol Solution Inhale 2 Puffs by mouth 3 times a day as needed for Dyspnea, Cough or Wheezing. 6.7 g 3 09/10/2023 Active traMADol HCl 50 MG Oral Tablet (Ultram)Indications :Permanent atrial fibrillation (HCC),Lumbar degenerative disc disease TAKE ONE TABLET BY MOUTH IN THE MORNING, ONE TABLET AT NOON, AND ONE TABLET IN THE EVENING 90 Tablet 10/29/2023 Active Ondansetron HCl 4 MG Oral TabletIndications:N ausea Take 1 Tablet by mouth every 8 hours as needed for Nausea. 30 Tablet 11/09/2023 Active Meclizine HCl 12.5 MG Oral Tablet (Antivert) Take 1 Tablet by mouth 2 times a day as needed for Dizziness. 60 Tablet 3 11/15/2023 Active Sertraline HCl 25 MG Oral Tablet (Zoloft)Indications :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) Take 1 Tablet by mouth in the morning. 30 Tablet 5 11/22/2023 Active Furosemide 40 MG Oral Tablet (Lasix)Indications: CHF (congestive heart failure), NYHA class I, chronic, diastolic (HCC),HTN, goal below 150/90 Take 1 Tablet by mouth in the morning. 100 Tablet 3 11/22/2023 Active oxygen IN GASIndications:CHF (congestive heart failure), NYHA class I, chronic, diastolic (HCC) Administer 2 L/min(Oxygen) into nostril continuous. 1 Each 11/22/2023 Active documented as of this encounter (statuses as of 11/30/2023) Active Problems Problem Noted Date Diagnosed Date [...] night without results. 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 02/05/2022 Permanent atrial fibrillation 12/22/2021 Overview: Added automatically from request for surgery [id number] Last Assessment & Plan: S/p Watchman Current [...] in the Comments) Remote Patient Monitoring Vendor: [facility] Device(s): Connected Scale Self - Management Plan [...] as of this encounter (statuses as of 11/30/2023) Resolved Problems Problem Noted Date Diagnosed Date [...] as of this encounter (statuses as of 11/30/2023) Immunizations Name Administration Dates Next Due COVID-19 mRNA, LNP-s, No Pre serve, 2-Dose Series ([employer]a) 08/20/2020,07/17/2020 COVID-19 mRNA, LNP-s, No Pre serve, 2-Dose Series ([employer]) 05/14/2021 COVID-19, LNP-s, No Preserve , Robbie-sucrose, Ages 12+ (Pfizer) 11/04/2021 COVID-19, MRNA-LNP, 23-24, P F, 30 MCG/0.3 mL, 12 YRS AND ABOVE, IM ([facility]) 11/29/2023,04/16/2023 Covid-19, Mrna, Lnp-s, Pf, B ivalent, 30 Mcg, IM, 12 yrs and above ([employer]) 03/17/2022 Pneumococcal Conjugate Vacc, 13 Valent [...] encounter Miscellaneous Notes * Telephone Encounter - Asiya Bliss LPN - 11/30/2023 2:13 PM EDT Call placed to patient and relayed information from Dr. Waite. Pt acknowledged understanding. No questions at this time. * Telephone Encounter - Macy Carbajal OSA - 11/30/2023 2:02 PM EDT Returned call * Telephone Encounter - Asiya Bliss LPN - 11/30/2023 1:45 PM EDT Call placed to patient - no answer. Messages left on home number to return call to [phone]. Unable to leave message on home phone - mailbox is full. * Telephone Encounter - Asiya Bliss LPN - 11/30/2023 1:45 PM EDT ----- Message from Benny Waite DO sent at 11/30/2023 7:54 AM EDT ----- Labs are good. Continue current medications. documented in this encounter Plan of Treatment Upcoming Encounters Date Type Department Care Team (Late st Contact Info) Description 12/03/2023 8:30 AM EDT Pharmacy Family Practice [address] [place] [address] [facility] [id number] College, Pharmacist [address] [place] [address] 12/03/2023 8:40 AM EDT Office Visit Family Practice 65 [facility] 293 [facility] [address] Benny Waite DO 293 [facility], [place] [address] 12/03/2023 3:30 PM EDT Office Visit Interventional Pain Center, [facility] [address] [place] [address] Luann Guerra PA-C [address] [place] [address] 12/13/2023 11:20 AM EDT Office Visit Family Practice 65 [facility] 293 [facility] [facility] [address] Benny Waite, DO 293 [facility] [place] [address] 12/17/2023 8:30 AM EDT Home Visit [facility], [facility] 132 [facility] [place] [address] Myrtle Allen RN 132 [place] [address] 12/21/2023 11:00 AM EDT Nurse Only Ancillary [address] [place] [address], [place] [address] College, Nurse Annual Wellness Visit [address] [place] [address], [place] [address] 01/05/2024 10:30 AM EDT Office Visit Cardiology, [facility] 132 [facility] [place] [address] Júnior Coppola, PAClifC [facility] [address] 01/12/2024 8:30 AM EDT Office Visit Cardiology, [facility] 132 [facility] [place] [address] Franco Mcgregor MD [address] [place] [facility] [place] [address] 01/25/2024 1:00 PM EDT Telemedicine [facility], [facility] 132 [facility] [place] [address] Yadira Omalley CRNP 132 [facility] [place] [address] Ines Castro, Community Health Section Beamer [address] [place] [address] 02/15/2024 8:00 AM EDT Office Visit Cardiology, [facility] [address] [place] [address] Casimiro Barraza MD [address] [place] [address] 05/15/2024 1:20 PM EST Office Visit Otolaryngology [facility] [address] [place] [address] George Ferrer PA-C [address] [place] [address] Health Maintenance Due Date Last Done Comments [...] this encounter Medical Devices Implanted Type Area Engine Cleaner Device Identifier Shelf Expiration Date Model / Serial / Lot Device Watchman Flx 35mm - [id number] Implanted:Qty: 1 on 02/05/2022 by Diamond Teran IV, [place] at [facility] [employer] : INTRV CARD [id number] 10/20/2024 [id number] / / [id number] Cath Thermodilution 6fr - [id number] Implanted:Qty: 1 on 07/31/2022 by Franco Mcgregor MD at [facility] [employer] [id number] 04/30/2024 [id number] / / [id number] Mirtaclip G4 - [id number] Implanted:Qty: 1 on 11/16/2022 at [facility] [employer] 06/25/2023 [id number] / / [id number] Clip Delivery Sytem G4 Xtw - [id number] Implanted:Qty: 1 on 11/16/2022 at [facility] [employer] [id number] 08/10/2023 [id number] / / [id number] Clip Delivery Sytem G4 Xtw - [id number] Implanted:Qty: 1 on 11/16/2022 at [facility] [employer] [id number] 09/10/2023 [id number] / / [id number] documented as of this encounter Advance [...] and were consensually agreed upon. Care Teams Hogshead Cooper Relationship Specialty Start Date End Date Benny Waite DO [address] [facility] [place] [address] PCP - General Internal Medicine 11/25/23 documented as of this encounter
--- OUTSIDE RECORDS SUMMARY | 2023-12-04 10:14 | External Medical Summary | Summary of Care ---
Author Name Unknown Organization [facility] Address [address] [facility] [place] [address] Phone [phone] Care Team Providers Care Independent Contractor Name Role Phone Benny Waite DO Primary Care Provider [phone] Reason for Visit * Reason Onset Date Comments [facility]: Maintenance 12/01/2023 Encounter Details Date Type Department Care Team (Late st Contact Info) Description 12/01/2023 Telephone [facility], [facility] [address] [facility] [place] [address] Coordinator, [facility] [address] [facility] [place] [address] [facility]: Maintenance Allergies Active Allergy Reactions Criticality Noted Date Comments Adhesive Tape 02/04/2017 Duloxetine High 07/13/2023 Other Reaction(s): confusion Levofloxacin 09/01/2019 documented as of this encounter (statuses as of 12/01/2023) Medications Medication Sig Dispensed Refills Start Date [...] 08/09/2023 08/08/2024 Active Senna 8.6 MG Oral CapsuleIndications :Constipation, unspecified constipation type Take 8.6 mg by [...] as of this encounter (statuses as of 12/01/2023) Active Problems Problem Noted Date Diagnosed Date [...] night without results. 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 02/05/2022 Permanent atrial fibrillation 12/22/2021 Overview: Added automatically from request for surgery [id number] Last Assessment & Plan: S/p Watchman Current [...] in the Comments) Remote Patient Monitoring Vendor: [facility] Device(s): Connected Scale Self - Management [...] as of this encounter (statuses as of 12/01/2023) Resolved Problems Problem Noted Date Diagnosed Date [...] as of this encounter (statuses as of 12/01/2023) Immunizations Name Administration Dates Next Due COVID-19 mRNA, LNP-s, No Pre serve, 2-Dose Series (newMentor) 08/20/2020,07/17/2020 COVID-19 mRNA, LNP-s, No Pre serve, 2-Dose Series (Vitryn) 05/14/2021 COVID-19, LNP-s, No Preserve , Robbie-sucrose, Ages 12+ (Vitryn) 11/04/2021 COVID-19, MRNA-LNP, 23-24, P F, 30 MCG/0.3 mL, 12 YRS AND ABOVE, IM (Jobber-Comirnat) 11/29/2023,04/16/2023 Covid-19, Mrna, Lnp-s, Pf, B ivalent, 30 Mcg, IM, 12 yrs and above (Vitryn) 03/17/2022 Pneumococcal Conjugate Vacc, 13 Valent (Prevnar) [...] encounter Miscellaneous Notes * Telephone Encounter - Haritha Peña LPN - 12/01/2023 2:09 PM EDT Noted, PC added * Addendum Note - Yadira Omalley CRNP - 12/01/2023 1:26 PM EDTAddended by: YADIRA OMALLEY on: 12/01/2023 01:26 PM Modules accepted: Orders * Telephone Encounter - Yadira Omalley CRNP - 12/01/2023 1:25 PM EDT I am wondering if today's weight is accurate? Since he is feeling okay I think we can monitor and see what his weight is tomorrow. If his weight is the same we can initiate DTP. DTP orders placed. * Telephone Encounter - Haritha Peña LPN - 12/01/2023 11:35 AM EDT Images from the original note were not included. [facility] Remote Patient Monitoring Able to contact patient: Trigger type: Abnormal reading(s): AMC (Advanced Monitored Caregiving): Scale: Baseline weight: not set lbs Trigger weight: 226.4 lbs; weight increased 6 lbs in 3 day(s) Trigger priority per [facility]: High Patient takes diuretic medication: Yes, reviewed current diuretic use: Name of medication: Lasix Dose: 40 mg Frequency: daily Symptom review: Diet Reviewed: Yes. Patient has had any foods high in sodium: No Fluid Intake Reviewed: Yes. Patient is on a fluid restriction: Yes, restriction amount in milliliters or liters: 2l Adherent to restriction: Yes Self-Management Plan Reviewed: Red Flags: LE edema, increased SOB Risk assignment recommendation: Moderate risk findings (check as applicable): [] Moderate trigger priority on AMC [] Confirmed tympanic equivalent temperature 100.4-101.9 F one hour post administration of antipyretic [] Weight gain of 2.1-4.9 lbs over 1-2 days [] Confirmed new sustained resting HR greater than 105 WITHOUT symptoms [x] Weight gain of greater than or equal to 5 lbs in 5 days WITHOUT heart failure symptoms [] Confirmed new sustained resting HRT less than 60 WITHOUT symptoms [] Moderate heart failure symptoms [] Confirmed SBP less than 90 WITHOUT symptoms [] Moderate COPD symptoms [] Confirmed SBP greater than 170 WITHOUT symptoms [] Confirmed new SpO2 90-93% [] Confirmed DBP greater than 90 WITHOUT symptoms High risk findings (check as applicable): Spoke with pt he reports he was feeling more SOB earlier after he mowed the lawn but did not wear oxygen while mowing. Tries not to wear it because he does noyt like it on his face, Reviewed importance of wearing oxygen particularly with the current extreme heat. He noted that his abdomen feels hard but then that its been that way for at least 3 months. Denies LE edema. No missed med doses, eats MOWs meals nearly everyday. Encourged to stay inside in AC, stay well hydratyed to restriction. Pt saw PCP 11/[address] Overall risk and identified plan: Moderate risk: Next day follow up call scheduled Route to RNCM (Registered Nurse Geochemistry Teacher) and Advance Practitioner Route to RMC (Remote Medical Coordinator) documented in this encounter Plan of Treatment Upcoming Encounters Date Type Department Care Team (Late st Contact Info) Description 12/03/2023 8:30 AM EDT Pharmacy Family Practice [address] [place] [address] 293 [facility] [place] [address] College, Pharmacist [address] [address] 12/03/2023 8:40 AM EDT Office Visit Family Practice 65 [facility] 293 [facility] [place] [address] Benny Waite, 293 [place] [address] 12/03/2023 3:30 PM EDT Office Visit Interventional Pain Center, [facility] [address] [place] [address] Luann Guerra PA-C 132 [place] [address] 12/13/2023 11:20 AM EDT Office Visit Family Practice 65 [facility] 293 [facility] [place] [address] Benny Waite, 293 [place] [address] 12/17/2023 8:30 AM EDT Home Visit [facility], [facility] 132 [place] [address] Myrtle Allen, MICHELLE 132 [place] [address] 12/21/2023 11:00 AM EDT Nurse Only Ancillary [address] [place] [address] 293 [facility] [place] [address] College, Nurse Annual Wellness Visit [address] [place] [address] 01/05/2024 10:30 AM EDT Office Visit Cardiology, [facility] 132 [place] [address] Júnior Coppola PAClifC 132 [place] [address] 01/12/2024 8:30 AM EDT Office Visit Cardiology, [facility] 132 [facility] [place] [address] Frnaco Mcgregor MD [address] [place] [address] 01/25/2024 1:00 PM EDT Telemedicine [facility], [facility] 132 [facility] [place] [address] Yadira Omalley CRNP 132 [place] [address] Ines Castro, Community Health Vacuum Forming Machine Operator [address] [place] [address] 02/15/2024 8:00 AM EDT Office Visit Cardiology, [facility] [address] [place] [address] Casimiro Barraza MD [address] [place] [address] 05/15/2024 1:20 PM EST Office Visit Otolaryngology [facility] [address] [place] [address] George Ferrer PA-C [address] [place] [address] Health Maintenance Due Date Last Done Comments [...] this encounter Medical Devices Implanted Type Area Health Nurse Device Identifier Shelf Expiration Date Model / Serial / Lot Device Watchman Flx 35mm - [id number] Implanted:Qty: 1 on 02/05/2022 by Diamond Teran IV, [place] [facility] [employer] : INTRV CARD [id number] 10/20/2024 [id number] / / [id number] Cath Thermodilution 6fr - [id number] Implanted:Qty: 1 on 07/31/2022 by Franco Mcgregor MD at [facility] [employer] [id number] 04/30/2024 [id number] / / [id number] Mirtaclip G4 - [id number] Implanted:Qty: 1 on 11/16/2022 at [facility] [employer] 06/25/2023 [id number] / / [id number] Clip Delivery Sytem G4 Xtw - [id number] Implanted:Qty: 1 on 11/16/2022 at [facility] [employer] [id number] 08/10/2023 [id number] / / [id number] Clip Delivery Sytem G4 Xtw - [id number] Implanted:Qty: 1 on 11/16/2022 at [facility] [employer] [id number] 09/10/2023 [id number] / / [id number] documented as of this encounter Advance [...] and were consensually agreed upon. Care Teams Independent Contractor Relationship Specialty Start Date End Date Benny Waite DO [address] [place] [address] PCP - General Internal Medicine 11/25/23 documented as of this encounter
--- OUTSIDE RECORDS SUMMARY | 2023-12-04 10:14 | External Medical Summary | Summary of Care ---
Author Name Unknown Organization [facility] Address [address] [facility] [place] [address] Phone [phone] Care Team Providers Care Medical Research Assistant Name Role Phone Benny Waite DO Primary Care Provider [phone] Reason for Visit * Reason Onset Date Comments [facility]: Maintenance 12/03/2023 Encounter Details Date Type Department Care Team (Late st Contact Info) Description 12/03/2023 5:00 PM EDT Scheduled Telephone [facility], [facility] [address] [place] [address] Coordinator, [facility] [address] [place] [address] Allergies Active Allergy Reactions Criticality Noted Date [...] of major depressive disorder without prior episode ([facility]) Take 1 Tablet by mouth in the [...] night without results. 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 02/05/2022 Permanent atrial fibrillation 12/22/2021 Overview: Added automatically from request for surgery [id number] Last Assessment & Plan: S/p Watchman Current [...] the Comments) Remote Patient Monitoring Vendor: [facility] Device(s): Connected Scale Self - Management Plan [...] of 35.0 to 39.9 with serious comorbidity 04/24/20224 Aortic root enlargement 10/01/202001/12 Enlarged aorta 05/02/2019 08/19/2020 Senile purpura 05/02/2019 08/19/2020 Mixed connective tissue disease 05/07/2018 08/19/2020 Chronic atrial fibrillation 01/18/2018 12/11/2022 documented as of this encounter (statuses as of 12/03/2023) Immunizations Name Administration Dates Next Due COVID-19 mRNA, LNP-s, No Pre serve, 2-Dose Series (Moderna) 08/20/2020,07/17/2020 COVID-19 mRNA, LNP-s, No Pre serve, 2-Dose Series (Paperless World) 05/14/2021 COVID-19, LNP-s, No Preserve , Robbie-sucrose, Ages 12+ (Pfizer) 11/04/2021 COVID-19, MRNA-LNP, 23-24, P F, 30 MCG/0.3 mL, 12 YRS AND ABOVE, IM ([facility]) 11/29/2023,04/16/2023 Covid-19, Mrna, Lnp-s, Pf, B ivalent, 30 Mcg, IM, 12 yrs and above (Paperless World) 03/17/2022 Pneumococcal Conjugate Vacc, 13 Valent (Prevnar) [...] encounter Miscellaneous Notes * Telephone Encounter - Annmarie Shaikh LPN - 12/03/2023 10:56 AM EDT Images from the original note were not included. [facility] Telephonic Nurse Follow-Up Call [facility] Subprogram: Focused Care Management (3-9 months) Follow Up Call Type: 48 hour follow up Acute issue requiring follow-up call: Other: weight increase per AMC Objective: 12/03/2023 8:38 AM 11/29/2023 1:44 PM 11/24/2023 11:08 AM 11/22/2023 4:04 PM 11/21/2023 10:51 AM VITALS ACROSS ENCOUNTERS BP 118/58 118/62 120/85 118/74 122/68 Pulse 56 56 53 72 Weight 101.7 kg 101.2 kg 102.1 kg BMI 34.86 34.7 34.98 BMI 34.85 kg/m2 34.71 kg/m2 34.99 kg/m2 Remote Patient Monitoring: [facility] Scale: not transmitting Oxygen Needs: NO CHANGE from baseline supplemental oxygen needs DME Needs: NO DME needs identified Medications: No medication or dose adjustments made during acute episode Subjective: Condition Status: Symptoms resolved and back to baseline Current Concerns: [facility] did not transmit the last 2 days Call to pt states he has weighed himself everyday.Pt can not remember his home weight today. Stateshe saw his PCP today and weight in the office was 227 lbs dressed and after breakfast. Reviewed PCP note in Epic no concerns today Will send message to [facility] to trouble shoot Pt states he feels ok Denies increased SOB, -CP, -cough, -BLE edema, -ABD distention Reports taking regular dose of diuretic as ordered Will forward to care for any further direction Disposition: Routed to [facility] and/or [facility] Care Team for further advice Future Visits Scheduled: Future Appointments-next 60 days Date/Time Provider Specialty Dept Phone 12/03/2023 3:30 PM (Arrive by 3:15 PM) Luann Guerra PA-C Pain Medicine [phone] 12/03/2023 5:00 PM Coordinator [facility] [phone] 12/13/2023 11:20 AM (Arrive by 11:05 AM) Benny Waite, Family Medicine [phone] 12/17/2023 8:30 AM Myrtle Allen RN [facility] [phone] 12/21/2023 11:00 AM College, Nurse Annual Wellness Visit [address] [facility] Ancillary [phone] 01/05/2024 10:30 AM (Arrive by 10:15 AM) Júnior Coppola PA-C Cardiology [phone] 01/12/2024 8:30 AM (Arrive by 8:15 AM) Franco Mcgregor MD Cardiology [phone] 01/25/2024 1:00 PM nIes Castro, Community Health Solder Deposit Operator; Yadira Omalley CRNP [facility] [phone] 02/15/2024 8:00 AM (Arrive by 7:45 AM) Casimiro Barraza MD Cardiology [phone] 05/15/2024 1:20 PM (Arrive by 1:05 PM) George Ferrer PA-C Otolaryngology [phone] Annmarie Shaikh LPN documented in this encounter Plan of Treatment Upcoming Encounters Date Type Department Care Team (Late st Contact Info) Description 12/03/2023 3:30 PM EDT Office Visit Interventional Pain Center, [facility] [address] [place] [address] Luann Guerra PA-C 132 [facility] [place] [address] 12/13/2023 11:20 AM EDT Office Visit Family Practice 65 [facility] 293 [place] [address] Benny Waite, 293 [place] [address] 12/17/2023 8:30 AM EDT Home Visit juan pablo at [facility] [address] [place] [address] Myrtle Allen, MICHELLE 132 [facility] [place] [address] 12/21/2023 11:00 AM EDT Nurse Only Ancillary [address], [place] [address] College, Nurse Annual Wellness Visit [address] [place] [address] 01/05/2024 10:30 AM EDT Office Visit Cardiology, [facility] [address] [facility] [place] [address] Júnior Coppola PA-C [address] [place] [address] 01/12/2024 8:30 AM EDT Office Visit Cardiology, [facility] [address] [facility] [place] [address] Franco Mcgregor MD [address] [place] [address] 01/25/2024 1:00 PM EDT Telemedicine [facility], [facility] [place] [address] Yadira Omalley CRNP [address] [place] [place] [address] Ines Castro, Community Health Solder Deposit Operator [address] [place] [address] 02/15/2024 8:00 AM EDT Office Visit Cardiology, [facility] [place] [address] Casimiro Barraza MD [address] [place] [address] 05/15/2024 1:20 PM EST Office Visit Otol[facility]ology [facility] [address] [facility] [place] [address] George Ferrer PA-C [address] [place] [address] Health Maintenance Due Date Last Done Comments [...] encounter Medical Devices Implanted Type Area Wood Grinder Operator Device Identifier Shelf Expiration Date Model / Serial / Lot Device Watchman Flx 35mm - [id number] Implanted:Qty: 1 on 02/05/2022 by Diamond Teran IV, MD at [facility] [employer] : INTRV CARD [id number] 10/20/2024 [id number] 50 / / [id number] Cath Thermodilution 6fr - [id number] Implanted:Qty: 1 on 07/31/2022 by Franco Mcgregor MD at [facility] [employer] [id number] 04/30/2024 [id number] / / [id number] Mirtaclip G4 - [id number] Implanted:Qty: 1 on 11/16/2022 at [facility] [employer] 06/25/2023 [id number] / / [id number] Clip Delivery Sytem G4 Xtw - [id number] Implanted:Qty: 1 on 11/16/2022 at [facility] [employer] [id number] 08/10/2023 [id number] TW / / [id number] Clip Delivery Sytem G4 Xtw - [id number] Implanted:Qty: 1 on 11/16/2022 at [facility] [employer] [id number] 09/10/2023 [id number] TW / / [id number] documented as of this encounter Advance [...] and were consensually agreed upon. Care Teams Medical Research Assistant Relationship Specialty Start Date End Date Benny Waite DO [address] [place] [address] PCP - General Internal Medicine 11/25/23 documented as of this encounter
--- OUTSIDE RECORDS SUMMARY | 2023-12-04 10:14 | External Medical Summary | Summary of Care ---
Author Name Unknown Organization [facility] Address [address] [facility] [place] [address] Phone [phone] Care Team Providers Care Music Department Chair Name Role Phone Benny Waite DO Primary Care Provider [phone] Reason for Visit * Reason Onset Date Comments [facility]: Maintenance 12/01/2023 Encounter Details Date Type Department Care Team (Late st Contact Info) Description 12/01/2023 Telephone [facility], [facility] [address] [facility] [place] [address] Coordinator, [facility] [address] [facility] [place] [address] [facility]: Maintenance Allergies Active Allergy [...] night without results. 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 02/05/2022 Permanent atrial fibrillation 12/22/2021 Overview: Added automatically from request for surgery [id number] Last Assessment & Plan: S/p Watchman Current [...] in the Comments) Remote Patient Monitoring Vendor: [facility] Device(s): Connected Scale Self - Management [...] mRNA, LNP-s, No Pre serve, 2-Dose Series (Intuitive [employer]ata) 08/20/2020,07/17/2020 COVID-19 mRNA, LNP-s, No Pre serve, 2-Dose Series (Myagi) 05/14/2021 COVID-19, LNP-s, No Preserve , Robbie-sucrose, Ages 12+ (Myagi) 11/04/2021 COVID-19, MRNA-LNP, 23-24, P F, 30 MCG/0.3 mL, 12 YRS AND ABOVE, IM ([employer]-Comirnat) 11/29/2023,04/16/2023 Covid-19, Mrna, Lnp-s, Pf, B ivalent, 30 Mcg, IM, 12 yrs and above (Myagi) 03/17/2022 Pneumococcal Conjugate Vacc, 13 Valent (Prevnar) [...] encounter Miscellaneous Notes * Addendum Note - Yadira Omalley CRNP [...] lbs in 3 day(s) Trigger priority per AMC: High Patient takes diuretic medication: Yes, reviewed [...] call scheduled Route to RNCM (Registered Nurse Fire Pot Operator) and Advance Practitioner Route to RMC (Remote Medical Coordinator) documented in this encounter Plan of Treatment Upcoming Encounters Date Type Department Care Team (Late st Contact Info) Description 12/03/2023 8:30 AM EDT Pharmacy Family Practice [address] [place] [address] 293 [place] [address] College, Pharmacist [address] [place] [address] 12/03/2023 8:40 AM EDT Office Visit Family Practice [address] [place] [address] 293 [place] [phone] Benny Waite, 293 [place] [address] 12/03/2023 3:30 PM EDT Office Visit Interventional Pain Center, [facility] [address] [address] Luann Guerra PA-C [address] [place] [address] 12/13/2023 11:20 AM EDT Office Visit Family Practice [address] [place] [address] 293 [place] [address] Benny Waite, 293 [place] [address] 12/17/2023 8:30 AM EDT Home Visit [facility], [facility] [address] [place] [address] Myrtle Allen, RN [address] [place] [address] 12/21/2023 11:00 AM EDT Nurse Only Ancillary 65 [facility] 293 [place] [address] College, Nurse Annual Wellness Visit [address] [place] [address] 01/05/2024 10:30 AM EDT Office Visit Cardiology, [facility] [place] [address] Júnior Coppola PAClifC 132 [place] [address] 01/12/2024 8:30 AM EDT Office Visit Cardiology, [facility] 132 [facility] [place] [address] Franco Mcgregor MD [address] [place], [place] [address] 01/25/2024 1:00 PM EDT Telemedicine [facility], [facility] [address] [facility] [place] [address] Yadira Omalley CRNP [address] [facility] [place] [address] Ines Castro, Community Health Tailings Dam Pumper [address] [place] [address] 02/15/2024 8:00 AM EDT Office Visit Cardiology, [facility] 132 [facility] [place] [address] Casimiro Barraza MD [address] [place] [address] 05/15/2024 1:20 PM EST Office Visit Otolaryngology [facility] [address] [place] [address] George Ferrer PA-C [address] [place] [address] Health Maintenance Due Date Last Done Comments [...] this encounter Medical Devices Implanted Type Area Motion Picture Cameraman Device Identifier Shelf Expiration Date Model / Serial / Lot Device Watchman Flx 35mm - [id number] Implanted:Qty: 1 on 02/05/2022 by Diamond Teran IV, MD at [facility] [employer]) : INTRV CARD [id number] 10/20/2024 [id number] 50 / / [id number] Cath Thermodilution 6fr - [id number] Implanted:Qty: 1 on 07/31/2022 by Franco Mcgregor MD at [facility] [employer] [id number] 04/30/2024 [id number] / / [id number] Mirtaclip G4 - [id number] Implanted:Qty: 1 on 11/16/2022 at [facility] [employer] 06/25/2023 [id number] / / [id number] Clip Delivery Sytem G4 Xtw - [id number] Implanted:Qty: 1 on 11/16/2022 at [facility] [employer] [id number] 08/10/2023 [id number] / / [id number] Clip Delivery Sytem G4 Xtw - [id number] Implanted:Qty: 1 on 11/16/2022 at [facility] [employer] [id number] 09/10/2023 [id number] / / [id number] documented as of this encounter Advance [...] and were consensually agreed upon. Care Teams Music Department Chair Relationship Specialty Start Date End Date Benny Waite DO [address] [place] [address] PCP - General Internal Medicine 11/25/23 documented as of this encounter
--- OUTSIDE RECORDS SUMMARY | 2023-12-04 10:14 | External Medical Summary | Summary of Care ---
Author Name Unknown Organization [facility] Address [address] [facility] [place] [address] Phone [phone] Care Team Providers Care Ring Sorter Name Role Phone Benny Waite DO Primary Care Provider [phone] Reason for Visit * Reason Onset Date Comments [facility]: Maintenance 12/01/2023 Encounter Details Date Type Department Care Team (Late st Contact Info) Description 12/01/2023 Telephone [facility], [facility] [address] [facility] [place] [address] Coordinator, [facility] [address] [facility] [place] [address] [facility]: Maintenance Allergies Active Allergy [...] night without results. 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 02/05/2022 Permanent atrial fibrillation 12/22/2021 Overview: Added automatically from request for surgery [id number] Last Assessment & Plan: S/p Watchman Current [...] in the Comments) Remote Patient Monitoring Vendor: [facility] Device(s): Connected Scale Self - Management Plan [...] mRNA, LNP-s, No Pre serve, 2-Dose Series ([employer]) 08/20/2020,07/17/2020 COVID-19 mRNA, LNP-s, No Pre serve, 2-Dose Series ([employer]) 05/14/2021 COVID-19, LNP-s, No Preserve , Robbie-sucrose, Ages 12+ ([employer]) 11/04/2021 COVID-19, MRNA-LNP, 23-24, P F, 30 MCG/0.3 mL, 12 YRS AND ABOVE, IM (Nveloped-Comirnat) 11/29/2023,04/16/2023 Covid-19, Mrna, Lnp-s, Pf, B ivalent, 30 Mcg, IM, 12 yrs and above ([employer]) 03/17/2022 Pneumococcal Conjugate Vacc, 13 Valent (Prevnar) [...] call scheduled Route to RNCM (Registered Nurse Engraver) and Advance Practitioner Route to RMC (Remote Medical Coordinator) documented in this encounter Plan of Treatment Upcoming Encounters Date Type Department Care Team (Late st Contact Info) Description 12/03/2023 8:30 AM EDT Pharmacy Family Practice [address] [place] [address] 293 [facility] [place] [address] College, Pharmacist [address] [place] [address] 12/03/2023 8:40 AM EDT Office Visit Family Practice [address] [place] [address] 293 [facility] [place] [phone] Benny Waite, 293 [place] [address] 12/03/2023 3:30 PM EDT Office Visit Interventional Pain Center, [facility] [address] [place] [address] Luann Guerra PA-C [address] [place] [address] 12/13/2023 11:20 AM EDT Office Visit Family Practice [address] [place] [address] 293 [facility] [place] [address] Benny Waite, 293 [place] [address] 12/17/2023 8:30 AM EDT [facility], [facility] [address] [place] [address] Myrtle Allen, RN [address] [place] [address] 12/21/2023 11:00 AM EDT Nurse Only Ancillary 65 [facility] 293 [facility] [place] [address] College, Nurse Annual Wellness Visit [address] [place] [address] 01/05/2024 10:30 AM EDT Office Visit Cardiology, [facility] [place] [address] Júnior Coppola PAClifC 132 [place] [address] 01/12/2024 8:30 AM EDT Office Visit Cardiology, [facility] 132 [facility] [place] [address] Franco Mcgregor MD [address] [place], [place] [id number] 01/25/2024 1:00 PM EDT Telemedicine [facility], [facility] [address] [place] [address] Yadira Omalley CRNP [address] [facility] [place] [address] Ines Castro, Community Health Media Reporter [address] [place] [address] 02/15/2024 8:00 AM EDT Office Visit Cardiology, [facility] 132 [facility] [place] [address] Casimiro Barraza MD [address] [place] [address] 05/15/2024 1:20 PM EST Office Visit Otolaryngology [facility] [address] [place] [address] George Ferrer PA-C [address] [place] [address] Health Maintenance Due Date Last Done Comments [...] this encounter Medical Devices Implanted Type Area Operations Leader Device Identifier Shelf Expiration Date Model / Serial / Lot Device Watchman Flx 35mm - [id number] Implanted:Qty: 1 on 02/05/2022 by Diamond Teran IV, [place] [facility] [email or web address] : INTRV CARD [id number] 10/20/2024 [id number] 50 / / [id number] Cath Thermodilution 6fr - [id number] Implanted:Qty: 1 on 07/31/2022 by Franco Mcgregor MD at [facility] [employer] [id number] 04/30/2024 [id number] / / [id number] Mirtaclip G4 - [id number] Implanted:Qty: 1 on 11/16/2022 at [facility] [employer] 06/25/2023 [id number] / / [id number] Clip Delivery Sytem G4 Xtw - [id number] Implanted:Qty: 1 on 11/16/2022 at [facility] [employer] [id number] 08/10/2023 [id number] TW / / [id number] Clip Delivery Sytem G4 Xtw - [id number] Implanted:Qty: 1 on 11/16/2022 at [facility] [employer] [id number] 09/10/2023 [id number] / / [id number] documented as of this encounter Advance [...] and were consensually agreed upon. Care Teams Ring Sorter Relationship Specialty Start Date End Date Benny Waite DO [address] [place] [address] PCP - General Internal Medicine 11/25/23 documented as of this encounter
--- OUTSIDE RECORDS SUMMARY | 2023-12-04 10:14 | External Medical Summary | Summary of Care ---
Author Name Unknown Organization [facility] Address [address] [facility] [place] [address] Phone [phone] Care Team Providers Care Siebel Consultant Name Role Phone Benny Waite DO Primary Care Provider [phone] Reason for Visit * Reason Onset Date Comments [facility]: Maintenance 12/02/2023 Encounter Details Date Type Department Care Team (Late st Contact Info) Description 12/02/2023 11:00 AM EDT Scheduled Telephone [facility], [facility] [address] [place] [address] Coordinator, [facility] [address] [place] [address] Allergies Active Allergy Reactions Criticality Noted Date Comments Adhesive Tape 02/04/2017 Duloxetine High 07/13/2023 Other Reaction(s): confusion Levofloxacin 09/01/2019 documented as of this encounter (statuses as of 12/02/2023) Medications Medication Sig Dispensed Refills Start Date [...] as of this encounter (statuses as of 12/02/2023) Active Problems Problem Noted Date Diagnosed Date [...] night without results. 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 02/05/2022 Permanent atrial fibrillation 12/22/2021 Overview: Added automatically from request for surgery [id number] Last Assessment & Plan: S/p Watchman Current [...] in the Comments) Remote Patient Monitoring Vendor: [facility] Device(s): Connected Scale Self - Management Plan [...] as of this encounter (statuses as of 12/02/2023) Resolved Problems Problem Noted Date Diagnosed Date [...] as of this encounter (statuses as of 12/02/2023) Immunizations Name Administration Dates Next Due COVID-19 mRNA, LNP-s, No Pre serve, 2-Dose Series ([employer]exercise) 08/20/2020,07/17/2020 COVID-19 mRNA, LNP-s, No Pre serve, 2-Dose Series ([employer]) 05/14/2021 COVID-19, LNP-s, No Preserve , Robbie-sucrose, Ages 12+ ([employer]) 11/04/2021 COVID-19, MRNA-LNP, 23-24, P F, 30 MCG/0.3 mL, 12 YRS AND ABOVE, IM (Un[employer]ision-Comirnat) 11/29/2023,04/16/2023 Covid-19, Mrna, Lnp-s, Pf, B ivalent, 30 Mcg, IM, 12 yrs and above ([employer]) 03/17/2022 Pneumococcal Conjugate Vacc, 13 Valent (Prevnar) [...] encounter Miscellaneous Notes * Telephone Encounter - Tameka Pearl LPN - 12/02/2023 10:03 AM EDT [facility] Telephonic Nurse Follow-Up Call [facility] Subprogram: Focused Care Management (3-9 months) Follow Up Call Type: Routine follow up call / Status Check Acute issue requiring follow-up call: Remote Patient Monitoring Trigger Objective: 11/29/2023 1:44 PM 11/24/2023 11:08 AM 11/22/2023 4:04 PM 11/21/2023 10:51 AM 11/20/2023 10:17 AM VITALS ACROSS ENCOUNTERS BP 118/62 120/85 118/74 122/68 119/81 Pulse 56 53 72 85 Weight 101.2 kg 102.1 kg BMI 34.7 34.98 BMI 34.71 kg/m2 34.99 kg/m2 Remote Patient Monitoring: AMC Scale: no weight today Oxygen Needs: NO CHANGE from baseline supplemental oxygen needs DME Needs: NO DME needs identified Medications: No medication or dose adjustments made during acute episode Current Concerns: Call placed to patient for weight follow up. No weight today per [facility]. Left message on home number for return call to [facility] Disposition: Follow up call scheduled for tomorrow with VOLUNTEER COORDINATOR Administrative Representative Future Visits Scheduled: Future Appointments-next 60 days Date/Time Provider Specialty Dept Phone 12/03/2023 8:30 AM (Arrive by 8:15 AM) College, Pharmacist [facility] [phone] 12/03/2023 8:40 AM (Arrive by 8:25 AM) Benny Waite DO Family Medicine [phone] 12/03/2023 3:30 PM (Arrive by 3:15 PM) Luann Guerra PA-C Pain Medicine [phone] 12/13/2023 11:20 AM (Arrive by 11:05 AM) Benny Waite DO Family Medicine [phone] 12/17/2023 8:30 AM Myrtle Allen RN [facility] [phone] 12/21/2023 11:00 AM College, Nurse Annual Wellness Visit 65 [facility] [phone] 01/05/2024 10:30 AM (Arrive by 10:15 AM) Júnior Coppola PA-C Cardiology [phone] 01/12/2024 8:30 AM (Arrive by 8:15 AM) Franco Mcgregor MD Cardiology [phone] 01/25/2024 1:00 PM Ines Castro, Community Health Nuclear Technologist; Yadira Omalley CRNP [facility] [phone] 02/15/2024 8:00 AM (Arrive by 7:45 AM) Casimiro Barraza MD Cardiology [phone] 05/15/2024 1:20 PM (Arrive by 1:05 PM) George Ferrer PA-C Otolaryngology [phone] AMBER Dennis LPN [facility] 12/02/2023,10:03 AM documented in this encounter Plan of Treatment Upcoming Encounters Date Type Department Care Team (Late st Contact Info) Description 12/03/2023 8:30 AM EDT Pharmacy Family Practice [address] [place] [address] 293 [place] [address] College, Pharmacist [address] [place] [address] 12/03/2023 8:40 AM EDT Office Visit Family Practice [address] [place] [address] 293 [place] [address] Benny Waite, 293 [facility] [place] [address] 12/03/2023 3:30 PM EDT Office Visit Interventional Pain Center, [facility] [address] [facility] [place] [address] Luann Guerra PA-C [facility] [place] [address] 12/03/2023 5:00 PM EDT Scheduled Telephone [facility], [facility] [address] [facility] [place] [address] Coordinator, [facility] [address] [facility] [place] [address] 12/13/2023 11:20 AM EDT Office Visit Family Practice 65 [facility] 293 [place] [address] Benny Waite, 293 [facility] [place] [address] 12/17/2023 8:30 AM EDT Home Visit [facility], [facility] 132 [place] [address] Myrtle Allen, MICHELLE 132 [place] [address] 12/21/2023 11:00 AM EDT Nurse Only Ancillary [address] [place] [address] 293 [place] [address] College, Nurse Annual Wellness Visit [address] [place] [address] 01/05/2024 10:30 AM EDT Office Visit Cardiology, [facility] 132 [facility] [place] [address] Júnior Coppola PAClifC 132 [place] [address] 01/12/2024 8:30 AM EDT Office Visit Cardiology, [facility] 132 [facility] [place] [address] Franco Mcgregor MD [address] [place] [address] 01/25/2024 1:00 PM EDT Telemedicine [facility], [facility] 132 [facility] [place] [address] Yadira Omalley CRNP 132 [facility] [place] [address] Ines Castro, Community Health Nuclear Technologist [address] [place] [address] 02/15/2024 8:00 AM EDT Office Visit Cardiology, [facility] [address] [place] [address] Casimiro Barraza MD [address] [place] [address] 05/15/2024 1:20 PM EST Office Visit Otolaryngology [facility] [address] [place] [address] George Ferrer PA-C [address] [place] [address] Health Maintenance Due Date Last Done Comments [...] this encounter Medical Devices Implanted Type Area Chocolate Maker Device Identifier Shelf Expiration Date Model / Serial / Lot Device Watchman Flx 35mm - [id number] Implanted:Qty: 1 on 02/05/2022 by Diamond Teran IV, MD at [facility] [employer] : INTRV CARD [id number] 10/20/2024 [id number] 50 / / [id number] Cath Thermodilution 6fr - [id number] Implanted:Qty: 1 on 07/31/2022 by Franco Mcgregor MD at [facility] [employer] [id number] 04/30/2024 [id number] / / [id number] Mirtaclip G4 - [id number] Implanted:Qty: 1 on 11/16/2022 at [facility] [employer] 06/25/2023 [id number] / / [id number] Clip Delivery Sytem G4 Xtw - [id number] Implanted:Qty: 1 on 11/16/2022 at [facility] [employer] [id number] 08/10/2023 [id number] TW / / [id number] Clip Delivery Sytem G4 Xtw - [id number] Implanted:Qty: 1 on 11/16/2022 at [facility] [employer] [id number] 09/10/2023 [id number] TW / / [id number] documented as of this encounter Advance [...] and were consensually agreed upon. Care Teams Siebel Consultant Relationship Specialty Start Date End Date Benny Waite DO [address] [place] [address] PCP - General Internal Medicine 11/25/23 documented as of this encounter
--- OUTSIDE RECORDS SUMMARY | 2023-12-04 10:14 | External Medical Summary | Summary of Care ---
Author Name Unknown Organization [facility] Address [address] [facility] [place] [address] Phone [phone] Care Team Providers Care Washing Machine Mechanic Name Role Phone Benny Waite DO Primary Care Provider [phone] Reason for Visit * Reason Onset Date Comments [facility]: Maintenance 12/01/2023 Encounter Details Date Type Department Care Team (Late st Contact Info) Description 12/01/2023 Telephone [facility], 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 He will go to [facility] for abdominal x-ray today to rule [...] with PCP to further evaluate [facility] at [facility]. 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 Not on statin--LDL 89. Will defer to PCP to add statin--goal <70 BP at goal today. 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 02/05/2022 Permanent atrial fibrillation 12/22/2021 Overview: Added automatically from request for surgery [id number] Last Assessment & Plan: S/p Watchman Current [...] in the Comments) Remote Patient Monitoring Vendor: [facility] Device(s): Connected Scale Self - Management Plan [...] mRNA, LNP-s, No Pre serve, 2-Dose Series (test company) 05/14/2021 COVID-19, LNP-s, No Preserve , Robbie-sucrose, Ages 12+ (Pfizer) 11/04/2021 COVID-19, MRNA-LNP, 23-24, P F, 30 MCG/0.3 mL, 12 YRS AND ABOVE, IM ([employer]-Comirnat) 11/29/2023,04/16/2023 Covid-19, Mrna, Lnp-s, Pf, B ivalent, 30 Mcg, IM, 12 yrs and above (test company) 03/17/2022 Pneumococcal Conjugate Vacc, 13 Valent (Prevnar) [...] call scheduled Route to RNCM (Registered Nurse Bilingual Kindergarten Teacher) and Advance Practitioner Route to RMC (Remote Medical Coordinator) documented in this encounter Plan of Treatment Upcoming Encounters Date Type Department Care Team (Late st Contact Info) Description 12/03/2023 8:30 AM EDT Pharmacy Family Practice [address] [place] [address], [place] [address] [place], Pharmacist [address] [place] [address] 12/03/2023 8:40 AM EDT Office Visit Family Practice 65 [facility] 293 [place] [address] Benny Waite, DO 293 [place] [address] 12/03/2023 3:30 PM EDT Office Visit Interventional Pain Center, [facility] [address] [place] [address] Luann Guerra PA-C [address] [place] [address] 12/13/2023 11:20 AM EDT Office Visit Family Practice [address] [place] [address] 293 [facility], [place] [address] Benny Waite, DO 293 [place] [address] 12/17/2023 8:30 AM EDT [facility] [address] [place] [address] Myrtle Allen RN [address] [place] [address] 12/21/2023 11:00 AM EDT Nurse Only Ancillary [address] [place] [address] 293 [place] [address] College, Nurse Annual Wellness Visit [address] [place] [address] 01/05/2024 10:30 AM EDT Office Visit Cardiology, [facility] [address] [place] [address] Júnior Coppola, PA-C [address] [place] [address] 01/12/2024 8:30 AM EDT Office Visit Cardiology, [facility] 132 [facility] [place] [address] Franco Mcgregor MD [address] [place] [address] 01/25/2024 1:00 PM EDT Telemedicine [facility] [place], [facility] 132 [facility] [place] [address] Yadira Omalley CRNP 132 [place] [address] Ines Castro, Community Health Steel Fabricator [address] [place], [place] [address] 02/15/2024 8:00 AM EDT Office Visit Cardiology, [facility] 132 [place] [address] Casimiro Barraza MD 132 [place] [address] 05/15/2024 1:20 PM EST Office Visit Otolaryngology [facility] 132 [place] [address] George Ferrer PA-C 132 [place] [address] Health Maintenance Due Date Last Done Comments [...] this encounter Medical Devices Implanted Type Area Mixing House Operator Device Identifier Shelf Expiration Date Model / Serial / Lot Device Watchman Flx 35mm - [id number] Implanted:Qty: 1 on 02/05/2022 by Diamond Teran IV, MD at [facility] [employer] : INTRV CARD [id number] 10/20/2024 [id number] 50 / / [id number] Cath Thermodilution 6fr - [id number] Implanted:Qty: 1 on 07/31/2022 by Franco Mcgregor MD at [facility] [employer] [id number] 04/30/2024 [id number] / / [id number] Mirtaclip G4 - [id number] Implanted:Qty: 1 on 11/16/2022 at [facility] [employer] 06/25/2023 [id number] / / [id number] Clip Delivery Sytem G4 Xtw - [id number] Implanted:Qty: 1 on 11/16/2022 at [facility] [employer] [id number] 08/10/2023 [id number] / / [id number] Clip Delivery Sytem G4 Xtw - [id number] Implanted:Qty: 1 on 11/16/2022 at [facility] [employer] [id number] 09/10/2023 [id number] / / [id number] documented as of this encounter Advance [...] and were consensually agreed upon. Care Teams Washing Machine Mechanic Relationship Specialty Start Date End Date Benny Waite DO 293 [place] [address] PCP - General Internal Medicine 11/25/23 documented as of this encounter
--- OUTSIDE RECORDS SUMMARY | 2023-12-04 10:14 | External Medical Summary | Summary of Care ---
Author Name Unknown Organization [facility] Address [address] [place] [address] Phone [phone] Care Team Providers Care Private Mortgage Banker Safe Name Role Phone Benny Waite DO Primary Care Provider [phone] Reason for Visit * Reason Onset Date Comments [facility]: Maintenance 12/01/2023 Encounter Details Date Type Department Care Team (Late st Contact Info) Description 12/01/2023 1:30 PM EDT Scheduled Telephone [facility], [facility] [address] [place] [address] Coordinator, [facility] [place] [address] Allergies Active Allergy Reactions Criticality Noted Date [...] night without results. 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 02/05/2022 Permanent atrial fibrillation 12/22/2021 Overview: Added automatically from request for surgery [id number] Last Assessment & Plan: S/p Watchman Current [...] in the Comments) Remote Patient Monitoring Vendor: [facility] Device(s): Connected Scale Self - Management Plan [...] mRNA, LNP-s, No Pre serve, 2-Dose Series (Tabula) 08/20/2020,07/17/2020 COVID-19 mRNA, LNP-s, No Pre serve, 2-Dose Series (Adylitica) 05/14/2021 COVID-19, LNP-s, No Preserve , Robbie-sucrose, Ages 12+ (Adylitica) 11/04/2021 COVID-19, MRNA-LNP, 23-24, P F, 30 MCG/0.3 mL, 12 YRS AND ABOVE, IM (Soompi-Comirnat) 11/29/2023,04/16/2023 Covid-19, Mrna, Lnp-s, Pf, B ivalent, 30 Mcg, IM, 12 yrs and above (Adylitica) 03/17/2022 Pneumococcal Conjugate Vacc, 13 Valent (Prevnar) [...] encounter Miscellaneous Notes * Telephone Encounter - Charlotte Medel RN - 12/01/2023 3:27 PM EDT See other note from today. FCC added to check weight again tomorrow. Charlotte Medel RN [facility] Intake Triage Coordinator [phone] documented in this encounter Plan of Treatment Upcoming Encounters Date Type Department Care Team (Late st Contact Info) Description 12/02/2023 11:00 AM EDT Scheduled Telephone [facility], [place] [address] [place] [address] [address] Coordinator, [facility] [address] [place] [address] [address] 12/03/2023 8:30 AM EDT Pharmacy Family Practice [address] [place] [address] [address] [place] [address] College, Pharmacist [address] [place] [address], [place] [address] 12/03/2023 8:40 AM EDT Office Visit Family Practice [address] [place] [address] [address] [place] [phone] Benny Waite, [address] [place] [address] 12/03/2023 3:30 PM EDT Office Visit Interventional Pain Center, [facility] [address] [facility] [place] [address] Luann Guerra PA-C [facility] [address] 12/13/2023 11:20 AM EDT Office Visit Family Practice [address] [place] [address] [address] [place] [address] Benny Waite, 293 [place] [address] 12/17/2023 8:30 AM EDT Home Visit [facility], [facility] [address] [place] [address] Myrtle Allen, RN [facility] [address] 12/21/2023 11:00 AM EDT Nurse Only Ancillary 65 [facility] [address] [place] [address] College, Nurse Annual Wellness Visit [address] [place] [address] 01/05/2024 10:30 AM EDT Office Visit [facility], [facility] [address] J[facility]ior Coppola PAClifC 132 [place] [address] 01/12/2024 8:30 AM EDT Office Visit Cardiology, [facility] 132 [facility] [place] [address] Franco Mcgregor MD [address] [place] [address] 01/25/2024 1:00 PM EDT Telemedicine [facility], [facility] 132 [facility] [place] [address] Yadira Omalley CRNP [address] [place] [address] Ines Castro, [facility] Power Shovel Engineer [address] [place] [address] 02/15/2024 8:00 AM EDT Office Visit Cardiology, [facility] 132 [facility] [place] [address] Casimiro Barraza MD 132 [facility] [place] [address] 05/15/2024 1:20 PM EST Office Visit Otolaryngology [facility] [address] [place] [address] George Ferrer PA-C [address] [place] [address] Health Maintenance Due Date Last Done Comments [...] this encounter Medical Devices Implanted Type Area Set Up And Lay Out Inspector Device Identifier Shelf Expiration Date Model / Serial / Lot Device Watchman Flx 35mm - [id number] Implanted:Qty: 1 on 02/05/2022 by Diamond Teran IV, [place] at [facility] [employer] : INTRV CARD [id number] 10/20/2024 [id number] / / [id number] Cath Thermodilution 6fr - [id number] Implanted:Qty: 1 on 07/31/2022 by Franco Mcgregor MD at [facility] [employer] [id number] 04/30/2024 [id number] / / [id number] Mirtaclip G4 - [id number] Implanted:Qty: 1 on 11/16/2022 at [facility] [employer] 06/25/2023 [id number] / / [id number] Clip Delivery Sytem G4 Xtw - [id number] Implanted:Qty: 1 on 11/16/2022 at [facility] [employer] [id number] 08/10/2023 [id number] / / [id number] Clip Delivery Sytem G4 Xtw - [id number] Implanted:Qty: 1 on 11/16/2022 at [facility] [employer] [id number] 09/10/2023 [id number] / / [id number] documented as of this encounter Advance [...] and were consensually agreed upon. Care Teams Private Mortgage Banker Safe Relationship Specialty Start Date End Date Benny Waite DO [address] [facility] [place] [address] PCP - General Internal Medicine 11/25/23 documented as of this encounter
--- OUTSIDE RECORDS SUMMARY | 2023-12-04 10:14 | External Medical Summary | Summary of Care ---
Author Name Unknown Organization [facility] Address [address] [place] [place] [place] [address] Phone [phone] Care Team Providers Care Ore Miner Name Role Phone Benny Waite DO Primary Care Provider [phone] Reason for Visit * Reason Comments Follow Up Encounter Details Date Type Department Care Team (Late st Contact Info) Description 12/03/2023 8:40 AM EDT Office Visit Family Practice [address] [place] [address] [place] [address] Benny Waite DO [address] [place] [address] CHF (congestive heart failure), NYHA class I, chronic, diastolic (HCC)*; Chronic respiratory failure with hypoxia (HCC); 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); BPH with obstruction/lower urinary tract symptoms; DEX (obstructive sleep apnea); Permanent atrial fibrillation (HCC); Presence of Watchman left atrial appendage closure device; S/P MVR (mitral valve repair); History of CVA (cerebrovascular accident); Drug-induced constipation; HTN, goal below 150/90; Gout, arthropathy; Atherosclerosis of hamilton coronary artery 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 He will go to [facility] for abdominal x-ray today to rule [...] with PCP to [facility]. 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 Not on statin--LDL 89. Will defer to PCP to add statin--goal <70 BP at goal today. Sacroiliitis, not elsewhere classified 4 S/P MVR (mitral valve repair) 11/16/2022 Atherosclerosis of hamilton co 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 pectoris 08/11/2022 Severe tricuspid regurgitation 08/11/2022 Gout, arthropathy 07/20/2022 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 02/05/2022 Permanent atrial fibrillation 12/22/2021 Overview: Added automatically from request for surgery [id number] Last Assessment & Plan: S/p Watchman Current [...] mRNA, LNP-s, No Pre serve, 2-Dose Series ([employer]) 05/14/2021 COVID-19, LNP-s, No Preserve , Robbie-sucrose, Ages 12+ (Pfizer) 11/04/2021 COVID-19, MRNA-LNP, 23-24, P F, 30 MCG/0.3 mL, 12 YRS AND ABOVE, IM (LYCEEM-Comirnat) 11/29/2023,04/16/2023 Covid-19, Mrna, Lnp-s, Pf, B ivalent, [...] Sign Reading Time Taken Comments Blood Pressure 118/58 12/03/2023 8:38 AM EDT Pulse 56 12/03/2023 8:38 AM EDT Temperature 36.5 C (97.7 F) 12/03/2023 8:38 AM ED T Respiratory Rate 16 12/03/2023 8:38 AM EDT Oxygen Saturation 94% 12/03/2023 8:38 AM EDT Inhaled Oxygen Concentration - - Weight 101.7 kg (224 lb 3.2 oz) 12/03/2023 8:38 AM EDT Height 170.8 cm (5' 7.25") 12/03/2023 8:38 AM ED T Body Mass Index 34.85 12/03/2023 8:38 AM EDT documented in this encounter Functional Status Functional [...] encounter Progress Notes * Benny Waite, - 12/03/2023 9:00 AM EDT SUBJECTIVE: Nikolas Silvestre is a 83 year old male. Chief Complaint Patient presents with Follow Up HPI: Patient is an 83 year old male with a history of Atrial Fibrillation, Mitral Valve Repair, Diastolic CHF, Sleep Apnea, PiPAP intolerance, Lumbar Disc Disease, SI joint arthritis, Internal Hemorrhoids, BPH, Gout, right Occipital CVA, and Watchman Device Implant that is seen for follow up. Mood has improved slightly. Shortness of breath with exertion is stable and he is breathing better since oxygen was started. Weight is stable and appetite is fair. Fatigue is unchanged. Chronic back pain is unchanged and he is scheduled for Pain Management evaluation today. 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 CHF (congestive heart failure), NYHA class I, chronic, diastolic (HCC) Encounter for long-term (current) use of medications DEX (obstructive sleep apnea) Moderate to severe mitral regurgitation Lumbar degenerative disc disease 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) Permanent atrial fibrillation (HCC) Presence of Watchman left atrial appendage closure device Gout, arthropathy Atherosclerosis of hamilton co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 pectoris Severe tricuspid regurgitation S/P MVR (mitral valve repair) Sacroiliitis, not elsewhere classified (HCC) Visual field loss, post-stroke Rectal bleeding History of CVA (cerebrovascular accident) Constipation HTN, goal below 150/90 Chronic respiratory failure with hypoxia (HCC) Current Outpatient Medications Medication Sig Dispense Refill Acetaminophen 500 MG Oral Tablet TAKE 1 IN THE MORNING AND 2 IN THE EVENING Aspirin 81 MG Oral Tablet Chewable Take by mouth 1 Tablet in the morning. Do not start before February 06, 2022. Docusate Sodium 100 MG Oral Capsule Take 1 Capsule by mouth in the morning and 1 Capsule before bedtime. Allopurinol 300 MG Oral Tablet (Zyloprim) Take 1 Tablet by mouth in the morning. 100 Tablet 3 Finasteride 5 MG Oral Tablet (Proscar) TAKE ONE TABLET BY MOUTH EVERY MORNING 100 Tablet 2 Gabapentin 300 MG Oral Capsule (Neurontin) TAKE ONE CAPSULE BY MOUTH THREE TIMES A DAY 300 Capsule 3 Metoprolol Succinate ER 25 MG Oral Tablet Extended Release 24 Hour (toPROL XL) Take 1 Tablet by mouth daily. 90 Tablet 3 traMADol HCl 50 MG Oral Tablet (Ultram) TAKE ONE TABLET BY MOUTH IN THE MORNING, ONE TABLET AT NOON, AND ONE TABLET IN THE EVENING 90 Tablet 0 Ondansetron HCl 4 MG Oral Tablet Take 1 Tablet by mouth every 8 hours as needed for Nausea. 30 Tablet 0 Meclizine HCl 12.5 MG Oral Tablet (Antivert) Take 1 Tablet by mouth 2 times a day as needed for Dizziness. 60 Tablet 3 Sertraline HCl 25 MG Oral Tablet (Zoloft) Take 1 Tablet by mouth in the morning. 30 Tablet 5 Furosemide 40 MG Oral Tablet (Lasix) Take 1 Tablet by mouth in the morning. 100 Tablet 3 oxygen IN GAS Administer 2 L/min(Oxygen) into nostril continuous. 1 Each 0 DIURETIC TITRATION PLAN If no improvement on day 3, contact heart failure managing provider. 1 Each0 No current facility-administered medications for this visit. The patient's medication list was reviewed and updated as needed. Past Medical History: Diagnosis Date Aortic root enlargement ([facility]) 10/01/2020 BPH with obstruction/lower urinary tract symptoms CHF (congestive heart failure), NYHA class I, chronic, diastolic (HCC) 05/02/2019 Chronic atrial fibrillation (HCC) 01/18/2018 Chronic respiratory failure with hypoxia ([facility]) 11/29/2023 Current 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 ([facility]) 07/09/2021 DDD (degenerative disc disease), lumbar Depression Gout, arthropathy 07/20/2022 History of CVA (cerebrovascular accident) 09/28/2023 Nonrheumatic mitral valve regurgitation 04/03/2021 Renal calculus Severe obesity with body mass index (BMI) of 35.0 to 39.9 with serious comorbidity ([facility]) 04/24/2022 Sleep apnea, obstructive Past Surgical History: Procedure Laterality Date CATARACT SURGERY,COMPLEX COLONOSCOPY, DIAGNOSTIC (RECTUM) 02/13/2021 diverticulosis, fair prep / [facility] COLORECTAL CANCER SCREEN; NOT AT RISK 04/04/2008 Diverticulosis CORONARY ANGIOGRAPHY W/RIGHT+LEFT CATH Bilateral 07/31/2022 CORONARY ANGIOGRAPHY W/RIGHT+LEFT CATH performed by Franco Mcgregor MD at [facility] [place]OSCOPY 10/22/2011 CYSTOURETHROSCOPY performed by LIBERTAD FITZPATRICK at [facility] CYSTOSCOPY 09/13/2012 CYSTOURETHROSCOPY performed by Eliseo Menard MD at [facility] INJECT DX/THER SUBSTANCE INTERLAMINAR LUMBAR/SACRAL W IMAGE GUIDE 06/23/2021 INJECTION SPINE LUMBAR OR SACRAL performed by Anderson Easton DO at OR [facility] OTHER 02/13/1980 Dr. Zhang DEX surgery OTHER left hand reconstruction PERC CLOSURE TRANSCATH LEFT ATRIAL APPENDAGE W/ENDOCARDIAL IMPLANT N/A 02/05/2022 PERCUTANEOUS CLOSURE LEFT ATRIAL APPENDAGE IMPLANT performed by Diamond Teran IV, MD at [facility] PSA 06/14/2004 3.42 PSA 06/14/2005 3.72 PSA 02/13/2008 5.17 REMOVAL OF PROSTATE (TURP) 10/22/2011 TRANSURETHRAL RESECTION PROSTATE ELECTROSURGICAL performed by LIBERTAD FITZPATRICK at [facility] REMOVAL OF PROSTATE (TURP) 09/13/2012 TRANSURETHRAL RESECTION PROSTATE ELECTROSURGICAL performed by Eliseo Menard MD at [place] [facility] REMOVE CATARACT, INSERT LENS PROSTH OU REMOVE TONSILS & ADENOIDS, UNDER 12 SACROILIAC JOINT INJECT W/GUIDANCE 11/11/2022 INJECTION SACROILIAC JOINT performed by Anderson Easton DO at OR [facility] SACROILIAC JOINT INJECT W/GUIDANCE 02/10/2023 INJECTION SACROILIAC JOINT performed by Anderson Easton DO at OR [facility] SACROILIAC JOINT INJECT W/GUIDANCE 05/26/2023 INJECTION SACROILIAC JOINT performed by Anderson Easton DO at [facility] TRANSCATH REPAIR MITRAL VALVE, INITIAL Bilateral 11/16/2022 TRANSCATHETER MITRAL VALVE REPAIR performed by Franco Mcgregor MD at [facility] VITRECTOMY W/ REMOVE OF EPIRETINAL MEMBRANE 11/12/2008 Right eye Review of patient's allergies indicates: Allergen Reactions Duloxetine Other Reaction(s): confusion Adhesive Tape Levaquin [Levofloxacin] Review of Systems Constitutional: Positive for activity change and fatigue. Negative for unexpected weight change. HENT: Negative for congestion, sore throat and trouble swallowing. Respiratory: Positive for shortness of breath. Negative for cough and wheezing. Cardiovascular: Negative for chest pain, palpitations and leg swelling. Gastrointestinal: Positive for constipation. Negative for abdominal pain, blood in stool, diarrhea,nausea and vomiting. Genitourinary: Negative for dysuria, frequency and hematuria. Musculoskeletal: Positive for arthralgias, back pain and gait problem. Neurological: Negative for dizziness, syncope and headaches. Psychiatric/Behavioral: Positive for dysphoric mood. Negative for confusion, decreased concentration and sleep disturbance. The patient is not nervous/anxious. OBJECTIVE: BP 118/58 | Pulse 56 | Temp 36.5 C (97.7 F) (Tympanic) | Resp 16 | Ht 1.708 m (5' 7.25") | Wt 101.7 kg (224 lb 3.2 oz) | SpO2 94% | BMI 34.85 kg/m | BSA 2.2 m Physical Exam Vitals and nursing note reviewed. Constitutional: General: He is not in acute distress. Appearance: Normal appearance. He is not toxic-appearing. HENT: Head: Normocephalic and atraumatic. Cardiovascular: Rate and Rhythm: Normal rate and regular rhythm. Heart sounds: Murmur heard. Systolic murmur is present with a grade of 2/6. No gallop. Pulmonary: Effort: Pulmonary effort is [...] at baseline. Motor: No weakness. Gait: Gait normal. Psychiatric: Mood and Affect: Mood normal. Behavior: Behavior normal. Thought Content: Thought content normal. Results for orders placed or performed in visit on 11/29/23 BASIC METABOLIC PANEL Result Value Ref Range BUN 22 (H) 6 - 20 mg/dL Creatinine 1.2 0.6 - 1.2 mg/dL Estimated Glomerular Filtration Rate 61 >=60 mL/min Sodium 139 135 - 146 mmol/L Potassium 4.8 3.5 - 5.1 mmol/L Chloride 104 98 - 107 mmol/L CO2 27 22 - 32 mmol/L Anion Gap 8 7 - 15 mmol/L Glucose 93 70 - 120 mg/dL Calcium 9.2 8.4 - 10.2 mg/dL MAGNESIUM Result Value Ref Range Magnesium 2.1 1.5 - 2.6 mg/dL CBC Result Value Ref Range WBC 5.32 4.00 - 10.80 K/uL RBC 4.29 4.50 - 5.25 M/uL HGB 15.5 14.0 - 16.8 g/dL HCT 45.7 40.0 - 48.4 % MCV 106.5 82.0 - 99.5 fL MCH 36.1 27.0 - 34.0 pg MCHC 33.9 32.0 - 36.0 g/dL RDW 14.2 11.5 - 15.5 % PLT 207 140 - 400 K/uL MPV 11.0 6.6 - 11.1 fL nRBCs 0 <=0 /100 WBCs DIFFERENTIAL, AUTOMATED Result Value Ref Range WBC 5.32 4.00 - 10.80 K/uL Neutrophils % 57.7 40.0 - 75.0 % Lymphocytes % 22.7 18.0 - 42.0 % Monocytes % 13.9 (H) 1.0 - 11.0 % Eosinophils % 4.5 0.0 - 6.0 % Basophils % 0.6 0.0 - 2.0 % Immature Granulocytes % 0.6 0.0 - 2.0 % Absolute Neutrophils 3.07 1.80 - 7.70 K/uL Absolute Lymphocytes 1.21 1.00 - 4.80 K/ul Absolute Monocytes 0.74 0.00 - 1.10 K/uL Absolute Eosinophils 0.24 0.00 - 0.70 K/uL Absolute Basophils 0.03 0.00 - 0.20 K/uL Absolute Immature Granulocytes 0.03 0.00 - 0.20 K/uL *Note: Due to a large number of results and/or encounters for the requested time period, some results have not been displayed. A complete set of results can be found in Results Review. PLAN AND ASSESSMENT: CHF (congestive heart failure), NYHA class I, chronic, diastolic (HCC) (Primary) Continue Metoprolol ER, and Furosemide Chronic respiratory failure with hypoxia (HCC) Continue Oxygen 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) Continue Sertraline BPH with obstruction/lower urinary tract symptoms Continue Finasteride DEX (obstructive sleep apnea) Continue Oxygen BIPAP intolerant Permanent atrial fibrillation (HCC) Continue Metoprolol ER Presence of Watchman left atrial appendage closure device S/P MVR (mitral valve repair) History of CVA (cerebrovascular accident) Drug-induced constipation Continue Docusate HTN, goal below 150/90 Continue Metoprolol ER Gout, arthropathy Continue Allopurinol Atherosclerosis of hamilton coronary artery of hamilton heart without angina pectoris Continue ASA, and Metoprolol ER Lumbar degenerative disc disease Continue Tramadol and Gabapentin Pain Management evaluation is scheduled for today. Follow-up: Return if symptoms worsen or fail to improve. | Check-out note: Schedule fitness evaluation Benny Waite DO 9:04 AM 12/03/2023 documented in this encounter Nursing Notes * Marnie Baker LPN - 12/03/2023 8:38 AM EDT Here for follow up documented in this encounter Plan of Treatment Upcoming Encounters Date Type Department Care Team (Late st Contact Info) Description 12/03/2023 3:30 PM EDT Office Visit [facility] [address] [address] Luann Guerra PA-C [address] [place] [address] 12/03/2023 5:00 PM EDT Scheduled Telephone [facility] [place] [address] [place] [address] Coordinator, [facility] [place] [address] [place] [address] [address] 12/13/2023 11:20 AM EDT Office Visit Family Practice [address] [facility] [address] [place] [address] Benny Waite, [address] [place] [address] 12/17/2023 8:30 AM EDT Home Visit [facility] [address] [place] [address] Myrtle Allen, MICHELLE [address] [place] [address] 12/21/2023 11:00 AM EDT Nurse Only Ancillary [address] [place] [address] [address] [place] [address] College, Nurse Annual Wellness Visit [address] [place] [address] 01/05/2024 10:30 AM EDT Office Visit Cardiology, [facility] [address] [place] [address] Júnior Coppola PAClifC [address] [place] [address] 01/12/2024 8:30 AM EDT Office Visit Cardiology, [facility] [address] [place] [address] Franco Mcgregor MD [address] [place] [address] 01/25/2024 1:00 PM EDT Telemedicine [facility] [address] [facility] [place] [address] Yadira Omalley CRNP [address] [place] [address] Ines Castro, [facility] Motion Picture Commentator [address] [place] [address] 02/15/2024 8:00 AM EDT Office Visit Cardiology, [facility] [address] [place] [address] Casimiro Barraza MD [address] [place] [address] 05/15/2024 1:20 PM EST Office Visit Otolaryngology [facility] [address] [place] [address] George Ferrer PA-C [address] [place] [address] Health Maintenance Due Date Last Done Comments [...] this encounter Medical Devices Implanted Type Area Tow Picker Device Identifier Shelf Expiration Date Model / Serial / Lot Device Watchman Flx 35mm - [id number] Implanted:Qty: 1 on 02/05/2022 by Diamond Teran IV, MD at [facility] [employer] : INTRV CARD [id number] 10/20/2024 [id number] / / [id number] Cath Thermodilution 6fr - [id number] Implanted:Qty: 1 on 07/31/2022 by Franco Mcgregor MD at [facility] [employer] [id number] 04/30/2024 [id number] / / [id number] Mirtaclip G4 - [id number] Implanted:Qty: 1 on 11/16/2022 at [facility] [employer] 06/25/2023 [id number] / / [id number] Clip Delivery Sytem G4 Xtw - [id number] Implanted:Qty: 1 on 11/16/2022 at [facility] [employer] [id number] 08/10/2023 [id number] / / [id number] Clip Delivery Sytem G4 Xtw - [id number] Implanted:Qty: 1 on 11/16/2022 at [facility] [employer] [id number] 09/10/2023 [id number] / / [id number] documented as of this encounter Visit Diagnoses Diagnosis CHF (congestive heart failure), NYHA class I, chronic, diastolic (HCC)- Primary Chronic respiratory failure with hypoxia (HCC) Chronic respiratory failure 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 and other lower urinary tract symptoms (LUTS) DEX (obstructive sleep apnea) Obstructive sleep apnea (adult) (pediatric) Permanent atrial fibrillation (HCC) Atrial fibrillation Presence of Watchman left atrial appendage closure device S/P MVR (mitral valve repair) Other postprocedural status History of CVA (cerebrovascular accident) Transient ischemic attack (TIA), and cerebral infarction without residual deficits Drug-induced constipation Other constipation HTN, goal below 150/90 Gout, arthropathy Gouty arthropathy, unspecified Atherosclerosis of hamilton coronary artery of hamilton heart without angina pectoris Lumbar degenerative disc disease Degeneration of lumbar or lumbosacral intervertebral disc documented in this encounter Advance Directives * [...] and were consensually agreed upon. Care Teams Ore Miner Relationship Specialty Start Date End Date Benny Waite DO [address] [place] [address] PCP - General Internal Medicine 11/25/23 documented as of this encounter
--- OUTSIDE RECORDS SUMMARY | 2023-12-04 10:14 | External Medical Summary | Summary of Care ---
Author Name Unknown Organization [facility] Address [address] [facility] [place] [address] Phone [phone] Care Team Providers Care Major Account Representative Name Role Phone Benny Waite DO Primary Care Provider [phone] Reason for Visit * Reason Onset Date Comments [facility]: Maintenance 11/29/2023 Encounter Details Date Type Department Care Team (Late st Contact Info) Description 11/29/2023 Telephone [facility], [facility] [address] [facility] [place] [address] [facility], Nurse [facility] [address] [facility] [place] [phone] [facility]: Maintenance Allergies Active Allergy Reactions Criticality Noted Date Comments Adhesive Tape 02/04/2017 Duloxetine High 07/13/2023 Other Reaction(s): confusion Levofloxacin 09/01/2019 documented as of this encounter (statuses as of 11/29/2023) Medications Medication Sig Dispensed Refills Start Date [...] Oral Tablet Extended Release 24 Hour (toPROL XL)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 He will go to [facility] for abdominal x-ray today to rule [...] [facility] 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 Not on statin--LDL 89. Will defer to PCP to add statin--goal <70 BP at goal today. 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 02/05/2022 Permanent atrial fibrillation 12/22/2021 Overview: Added automatically from request for surgery [id number] Last Assessment & Plan: S/p Watchman Current [...] in the Comments) Remote Patient Monitoring Vendor: [facility] Device(s): Connected Scale Self - Management Plan [...] as of this encounter (statuses as of 11/29/2023) Resolved Problems Problem Noted Date Diagnosed Date [...] as of this encounter (statuses as of 11/29/2023) Immunizations Name Administration Dates Next Due COVID-19 mRNA, LNP-s, No Pre serve, 2-Dose Series (Moderna) 08/20/2020,07/17/2020 COVID-19 mRNA, LNP-s, No Pre serve, 2-Dose Series (PredictionIO) 05/14/2021 COVID-19, LNP-s, No Preserve , Robbie-sucrose, Ages 12+ (Pfizer) 11/04/2021 COVID-19, MRNA-LNP, 23-24, P F, 30 MCG/0.3 mL, 12 YRS AND ABOVE, IM ([employer]-Comirnat) 11/29/2023,04/16/2023 Covid-19, Mrna, Lnp-s, Pf, B ivalent, 30 Mcg, IM, 12 yrs and above (PredictionIO) 03/17/2022 Pneumococcal Conjugate Vacc, 13 Valent (Prevnar) [...] money to get more. Never true 07/30/2023 Sex and Gender Information Value Date [...] encounter Miscellaneous Notes * Telephone Encounter - Ines Coates RN - 11/29/2023 4:24 PM EDT Images from the original note were not included. Received return call from patient reporting that he rechecked his oxygen level as instructed and it's 94%. Denies any sob, or other complaints. Reinforced to continue to wear oxygen 2LPM. * Telephone Encounter - Irlanda Real LPN - 11/29/2023 3:37 PM EDT [facility] Remote Patient Monitoring Able to contact patient: Trigger type: Abnormal reading(s): AMC (Advanced Monitored Caregiving): Pulse Oximeter: Oxygen saturation per oximeter: 88 measured while on room air Trigger priority per AMC: high Baseline oxygen requirements: Room air Increased oxygen needs in past 24 hours: No Symptom review: SOB: + Diet Reviewed: Yes. Patient has had any foods high in sodium: No Fluid Intake Reviewed: Yes. Patient is on a fluid restriction: Yes, restriction amount in milliliters or liters: 2L Adherent to restriction: Yes Self-Management Plan Reviewed: Red Flags: none list Risk assignment recommendation: Moderate risk findings (check as applicable): [] Moderate trigger priority on AMC [] Confirmed tympanic equivalent temperature 100.4-101.9 F one hour post administration of antipyretic [] Weight gain of 2.1-4.9 lbs over 1-2 days [] Confirmed new sustained resting HR greater than 105 WITHOUT symptoms [] Weight gain of greater than or equal [...] symptoms High risk findings (check as applicable): [x] High trigger priority on AMC [] Confirmed tympanic equivalent temperature greater than or equalto 102 F on hour post administration of antipyretic [] Weight gain of greater than or equal to 5 lbs over 1-2 days [] Confirmed tympanic equivalent temperature less than 96 F [] Weight gain of greater than or equal to 5 lbs in 5 days WITH heart failure symptoms [] Confirmednew sustained resting HR greater than 105 WITH symptoms [] Severe heart failure symptoms [] Confirmed new sustained resting HR less than 60 WITH symptoms [] Severe COPD symptoms [] Confirmed SBP less than 90 WITH symptoms [x] Confirmed new SpO2 less than 90% [] Confirmed SBP greater than 170 WITH symptoms [] Confirmed DBP greater than 90 WITH symptoms Additional risk selection justification: Return call received from pt, he is just returning from PCP appt. He does have slight increase in SOB. Denies cough, - edema, - abdominal fulness. Sp02 92% atpcp appt. On recheck Sp02 86-87%. He thinks it may be from just getting home. He will recheck in a little after he has rested. Encouraged pt to use 02 if need. He will call [facility] with any concerns. Overall risk and identified plan: High risk: Route to RNCM (Registered Nurse Clamp Jig Assembler) and Advance Practitioner * Telephone Encounter - Irlanda Real LPN - 11/29/2023 1:17 PM EDT Images from the original note were not included. [facility] Remote Patient Monitoring Unable to contact patient: Trigger type: Abnormal reading(s): Device(s) Triggered: AMC (Advanced Monitored Caregiving): Pulse Oximeter: Oxygen saturation per oximeter: 88 Called pt to F/U on pulse ox reading LMOM to return call documented in this encounter Plan of Treatment Upcoming Encounters Date Type Department Care Team (Late st Contact Info) Description 12/03/2023 8:30 AM EDT Pharmacy Family Practice 65 [facility] 293 [place] [address] College, Pharmacist [address], [place] [address] 12/03/2023 8:40 AM EDT Office Visit Family Practice [address] [place] [address] 293 [place] [phone] Benny Waite, DO 293 [place] [address] 12/03/2023 3:30 PM EDT Office Visit Interventional Pain Center, [facility] 132 [facility] [place] [address] Luann Guerra PA-C [facility] [place] [address] 12/13/2023 11:20 AM EDT Office Visit Family Practice [address] [place] [address] 293 [facility], [place] [address] Benny Waite, DO 293 [place] [address] 12/17/2023 8:30 AM EDT [facility] [address] [place] [address] Myrtle Allen, RN 132 [facility] [place] [address] 12/21/2023 11:00 AM EDT Nurse Only Ancillary [address] [place] [address] 293 [facility], [place] [address] College, Nurse Annual Wellness Visit [address] [place] [address], [place] [address] 01/05/2024 10:30 AM EDT Office Visit Cardiology, [facility] [address] [place] [address] Júnior Coppola PAJaleesa [address] [place] [address] 01/12/2024 8:30 AM EDT Office Visit Cardiology, [facility] 132 [facility] [place] [address] Franco Mcgregor MD [address] [place] [address] 01/25/2024 1:00 PM EDT Telemedicine [facility], [facility] 132 [facility] [place] [address] Yadira Omalley CRNP 132 [place] [address] Ines Castro, Community Health Syrup Mixer Helper [address] [place] [address] 02/15/2024 8:00 AM EDT Office Visit Cardiology, [facility] 132 [place] [address] Casimiro Barraza MD 132 [facility] [place] [address] 05/15/2024 1:20 PM EST Office Visit Otolaryngology [facility] 132 [facility] [place] [address] George Ferrer PA-C 132 [place] [address] Health Maintenance Due Date Last Done Comments [...] this encounter Medical Devices Implanted Type Area Tallow Pumper Device Identifier Shelf Expiration Date Model / Serial / Lot Device Watchman Flx 35mm - [id number] Implanted:Qty: 1 on 02/05/2022 by Diamond Teran IV, [place] at [facility] [employer] : INTRV CARD [id number] 10/20/2024 [id number] / / [id number] Cath Thermodilution 6fr - [id number] Implanted:Qty: 1 on 07/31/2022 by Franco Mcgregor MD at [facility] [employer] [id number] 04/30/2024 [id number] / / [id number] Mirtaclip G4 - [id number] Implanted:Qty: 1 on 11/16/2022 at [facility] [place] [employer] 06/25/2023 [id number] / / [id number] Clip Delivery Sytem G4 Xtw - [id number] Implanted:Qty: 1 on 11/16/2022 at [facility] [employer] [id number] 08/10/2023 [id number] / / [id number] Clip Delivery Sytem G4 Xtw - [id number] Implanted:Qty: 1 on 11/16/2022 at [facility] [employer] [id number] 09/10/2023 [id number] / / [id number] documented as of this encounter Advance [...] and were consensually agreed upon. Care Teams Major Account Representative Relationship Specialty Start Date End Date Benny Waite DO [address] [place] [address] PCP - General Internal Medicine 11/25/23 documented as of this encounter
--- OUTSIDE RECORDS SUMMARY | 2023-12-04 10:15 | External Medical Summary | Summary of Care ---
Author Name Unknown Organization [facility] Address [address] [facility] [place] [address] Phone [phone] Care Team Providers Care State Archivist Name Role Phone Benny Waite DO Primary Care Provider [phone] Reason for Visit * Reason Onset Date Comments [facility]: Maintenance 11/29/2023 Encounter Details Date Type Department Care Team (Late st Contact Info) Description 11/29/2023 Telephone [facility], [facility] [address] [facility] [place] [address] [facility], Nurse [facility] [address] [facility] [place] [phone] [facility]: Maintenance Allergies Active Allergy [...] Oral Tablet Extended Release 24 Hour (toPROL XL)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 He will go to [facility] for abdominal x-ray today to rule out [...] [facility] 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 Not on statin--LDL 89. Will defer to PCP to add statin--goal <70 BP at goal today. Sacroiliitis, not elsewhere classified 4 S/P MVR (mitral valve repair) 11/16/2022 Atherosclerosis of 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 02/05/2022 Permanent atrial fibrillation 12/22/2021 Overview: Added automatically from request for surgery [id number] Last Assessment & Plan: S/p Watchman Current [...] in the Comments) Remote Patient Monitoring Vendor: [facility] Device(s): Connected Scale Self [...] mRNA, LNP-s, No Pre serve, 2-Dose Series (Intern [place]) 05/14/2021 COVID-19, LNP-s, No Preserve , Robbie-sucrose, Ages 12+ (Pfizer) 11/04/2021 COVID-19, MRNA-LNP, 23-24, P F, 30 MCG/0.3 mL, 12 YRS AND ABOVE, IM ([employer]-Comirnat) 11/29/2023,04/16/2023 Covid-19, Mrna, Lnp-s, Pf, B ivalent, 30 Mcg, IM, 12 yrs and above (Intern [place]) 03/17/2022 Pneumococcal Conjugate Vacc, 13 Valent (Prevnar) [...] encounter Miscellaneous Notes * Telephone Encounter - Irlanda Real LPN - 11/29/2023 3:37 PM EDT [facility] Remote Patient Monitoring Able to [...] use 02 if need. He will call [facility] with any concerns. Overall risk and identified plan: High risk: Route to RNCM (Registered Nurse Engineer First Assistant) and Advance Practitioner * Telephone Encounter - [...] 8:30 AM EDT Pharmacy Family Practice 65 [facility] 293 [place] [address] College, Pharmacist [address] [place] [address] 12/03/2023 8:40 AM EDT Office Visit Family Practice [facility] 293 [facility], [place] [address] Benny Waite, 293 [place] [address] 12/03/2023 3:30 PM EDT Office Visit Interventional Pain Center, [facility] 132 [facility] [place] [address] Luann Guerra PA-C 132 [facility] [place] [address] 12/13/2023 11:20 AM EDT Office Visit Family Practice 65 [facility] 293 [place] [address] Benny Waite, DO 293 [place] [address] 12/17/2023 8:30 AM EDT [facility] Visit [facility] [place], [facility] 132 [facility] [place] [address] Myrtle Allen RN 132 [place] [address] 12/21/2023 11:00 AM EDT Nurse Only Ancillary 65 [facility] 293 [place] [address] College, Nurse Annual Wellness Visit [address] [place] [address], [place] [address] 01/05/2024 10:30 AM EDT Office Visit Cardiology, [facility] 132 [facility] [place] [address] Júnior Coppola PA-C 132 [facility] [place] [address] 01/12/2024 8:30 AM EDT Office Visit Cardiology, [facility] 132 [facility] [place] [address] Franco Mcgregor MD [address] [facility] [place] [address] 01/25/2024 1:00 PM EDT Telemedicine [facility], [facility] 132 [place] [address] Yadira Omalley CRNP 132 [place] [address] Ines Castro, Community Health Accounting Support Specialist [address] [place] [address] 02/15/2024 8:00 AM EDT Office Visit Cardiology, [facility] 132 [place] [address] Casimiro Barraza MD 132 [place] [address] 05/15/2024 1:20 PM EST Office Visit Otolaryngology [facility] 132 [place] [address] George Ferrer PA-C 132 [place] [address] Health Maintenance Due Date Last Done Comments [...] this encounter Medical Devices Implanted Type Area Basin Operator Device Identifier Shelf Expiration Date Model / Serial / Lot Device Watchman Flx 35mm - [id number] Implanted:Qty: 1 on 02/05/2022 by Diamond Teran IV, [place] [facility] [employer] : INTRV CARD [id number] 10/20/2024 [id number] 50 / / [id number] Cath Thermodilution 6fr - [id number] Implanted:Qty: 1 on 07/31/2022 by Franco Mcgregor MD at [facility] [employer] [id number] 04/30/2024 [id number] / / [id number] Mirtaclip G4 - [id number] Implanted:Qty: 1 on 11/16/2022 at [facility] [place] [employer] 06/25/2023 [id number] / / [id number] Clip Delivery Sytem G4 Xtw - [id number] Implanted:Qty: 1 on 11/16/2022 [place] [facility] [employer] [id number] 08/10/2023 [id number] / / [id number] Clip Delivery Sytem G4 Xtw - [id number] Implanted:Qty: 1 on 11/16/2022 at [facility] [employer] [id number] 09/10/2023 [id number] / / [id number] documented as of this encounter Advance [...] and were consensually agreed upon. Care Teams State Archivist Relationship Specialty Start Date End Date Benny Waite DO [address] [place] [address] PCP - General Internal Medicine 11/25/23 documented as of this encounter
--- OUTSIDE RECORDS SUMMARY | 2023-12-04 10:15 | External Medical Summary ---
Author Name Unknown Address Unknown Organization K01:[facility] - [address] [place] [address] Laboratory Report Ordering Provider Test Date Status NIKOS MISHRA 11/29/2023 14:07:55 Final Observation Date Value Abnormality Reference (Units ) Status BUN 11/29/2023 14:07:55 22 Above high normal 6-20 (mg/dL) Final Creatinine 11/29/2023 14:07:55 1.2 0.6-1.2 (mg/dL) Final Glomerular filtration rate/1.73 sq M.predicted [Volume Rate/Area] in Serum, Plasma or Blood by Creatinine-based formula (CKD-EPI) 11/29/2023 14:07:55 61 >=60 (mL/min) Final eGFR is calculated based on the CKD-EPI 2020 equation Sodium 11/29/2023 14:07:55 139 135-146 (m mol/L) Final Potassium 11/29/2023 14:07:55 4.8 3.5-5.1 (m mol/L) Final Cl 11/29/2023 14:07:55 104 98-107 (mm ol/L) Final CO2 11/29/2023 14:07:55 27 22-32 (mmo l/L) Final Anion gap 11/29/2023 14:07:55 8 7-15 (mmol /L) Final Glucose 11/29/2023 14:07:55 93 70-120 (mg /dL) Final Calcium 11/29/2023 14:07:55 9.2 8.4-10.2 ( mg/dL) Final Performing Location [facility] - [address] [place] [address]
--- OUTSIDE RECORDS SUMMARY | 2023-12-04 10:15 | External Medical Summary | Summary of Care ---
Author Name Unknown Organization [facility] Address [address] [place] [facility] [place] [address] Phone [phone] Care Team Providers Care Health Care Aide Name Role Phone Benny Waite DO Primary Care Provider [phone] Reason for Visit * Reason Comments Follow Up Encounter Details Date Type Department Care Team (Late st Contact Info) Description 11/22/2023 4:20 PM EDT Office Visit Family Practice [address] [facility] [place] [address] [place] [address] Benny Waite DO [address] [place] [address] Current 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 ([facility])*; CHF (congestive heart failure), NYHA class I, chronic, diastolic ([facility]); HTN, goal below 150/90; BPH with obstruction/lower urinary tract symptoms; DEX (obstructive sleep apnea); Permanent atrial fibrillation ([facility]); Presence of Watchman left atrial appendage closure device; S/P MVR (mitral valve repair); History of CVA (cerebrovascular accident); Constipation, unspecified constipation type; Sacroiliitis, not elsewhere classified ([facility]); Severe tricuspid regurgitation; Atherosclerosis of yurok coronary artery of yurok heart without angina pectoris; Gout, arthropathy Allergies Active Allergy Reactions Criticality Noted Date Comments Adhesive Tape 02/04/2017 Duloxetine High 07/13/2023 Other Reaction(s): confusion Levofloxacin 09/01/2019 documented as of this encounter (statuses as of 11/23/2023) Medications Medication Sig Dispensed Refills Start Date [...] TIMES A DAY 300 Capsule 3 08/08/2023 Active Metoprolol Succinate ER 25 MG Oral Tablet Extended Release 24 Hour (toPROL XL)Indications:Chr onic atrial fibrillation (HCC),CHF (congestive heart failure), NYHA class I, chronic, diastolic (HCC) Take 1 Tablet by mouth daily. 90 Tablet 3 08/09/2023 5 Active Senna 8.6 MG Oral CapsuleIndications :Constipation, [...] into nostril continuous. 1 Each 11/22/2023 Active Furosemide 20 MG Oral Tablet (Lasix)Indications :CHF (congestive heart failure), NYHA class I, chronic, diastolic (HCC) Take 1 Tablet by mouth in the morning. 100 Tablet 3 09/28/2023 4 Discontinue d(Medicatio n/Dose Changed) documented as of this encounter (statuses as of 11/23/2023) Active Problems Problem Noted Date Diagnosed Date HTN, goal below 150/90 11/22/2023 Constipation 10/26/2023 Last Assessment & Plan: New issue. Reports he generally moves his bowels daily. No BM for a week. Some mild abdominal discomfort, he is able to pass gas. No nausea or vomiting. He took a dose of MiraLax and stool softener last night without results. He will go to [facility] for abdominal x-ray today to rule [...] MVR (mitral valve repair) 11/16/2022 Atherosclerosis of y[place]k co 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 pectoris 08/11/2022 Severe tricuspid regurgitation 08/11/2022 Gout, arthropathy 07/20/2022 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 02/05/2022 Permanent atrial fibrillation 12/22/2021 Overview: Added automatically from request for surgery [id number] Last Assessment & Plan: S/p Watchman Current [...] the Comments) Remote Patient [place]endor[place] [facility] Device(s): Connected Scale Self - Management Plan [...] as of this encounter (statuses as of 11/23/2023) Resolved Problems Problem Noted Date Diagnosed Date [...] as of this encounter (statuses as of 11/23/2023) Immunizations Name Administration Dates Next Due COVID-19 [...] Sign Reading Time Taken Comments Blood Pressure 118/74 11/22/2023 4:04 PM EDT Pulse 72 11/22/2023 4:04 PM EDT Temperature 36.2 C (97.1 F) 11/22/2023 4:04 PM ED T Respiratory Rate 20 11/22/2023 4:04 PM EDT Oxygen Saturation 95% 11/22/2023 4:04 PM EDT Inhaled Oxygen Concentration - - Weight 102.1 kg (225 lb) 11/22/2023 4:04 PM EDT Height 170.8 cm (5' 7.24") 11/22/2023 4:04 PM ED T Body Mass Index 34.99 11/22/2023 4:04 PM EDT documented in this encounter Functional Status [...] as of this encounter Progress Notes * Marnie Baker LPN - 11/23/2023 3:03 PM EDT Order sent to [id number] | [employer] * Benny Waite DO - 11/22/2023 8:09 PM EDT SUBJECTIVE: Nikolas Silvestre is a 83 year old male. Chief Complaint Patient presents with Follow Up HPI: Patient is an 83 year old male with a history of Atrial Fibrillation, Mitral Valve Repair, Diastolic CHF, Sleep Apnea, BiPAP intolerance, Lumbar Disc Disease, SI joint arthritis, Internal Hemorrhoids, BPH, Gout, right occipital CVA, and Watchman Device Implant that is seen for follow up. He has continued shortness of breath that is present with exertion and when he lays flat. He has worsening anxiety and intermittent elevation of blood pressures when he is anxious. BP is otherwise normal on home monitor. Weight is up. No chest pain is present. Fatigue is unchanged. His recently and he has irritability, difficulty sleeping and cries at times. BAck pain is unchanged. Patient Active Problem List Diagnosis ADVANCE DIRECTIVE [...] appendage closure device Gout, arthropathy Atherosclerosis of yurok co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 pectoris Severe tricuspid regurgitation S/P MVR (mitral valve repair) Sacroiliitis, not elsewhere classified (HCC) Visual field loss, post-stroke Rectal bleeding History of CVA (cerebrovascular accident) Constipation HTN, goal below 150/90 Current Outpatient Medications Medication Sig Dispense Refill Acetaminophen 500 MG Oral Tablet TAKE 1 IN THE MORNING AND 2 IN THE EVENING Aspirin 81 MG Oral Tablet Chewable Take by mouth 1 Tablet in the morning. Do not start before February 06, 2022. Docusate Sodium 100 MG Oral Capsule Take 1 Capsule by mouth at noon and 1 Capsule in the evening. Allopurinol 300 MG Oral Tablet (Zyloprim) Take [...] Tablet by mouth daily. 90 Tablet 3 Senna 8.6 MG Oral Capsule Take 8.6 mg by mouth daily. Proventil HFA 108 (90 Base) MCG/ACT Inhalation Aerosol Solution Inhale 2 Puffs by mouth 3 times a day as needed for Dyspnea, Cough or Wheezing. 6.7 g 3 traMADol HCl 50 MG Oral Tablet [...] L/min(Oxygen) into nostril continuous. 1 Each 0 No current facility-administered medications for this [...] DIAGNOSTIC (RECTUM) 02/13/2021 diverticulosis, fair prep / [facility]; NOT AT RISK 04/04/2008 Diverticulosis CORONARY ANGIOGRAPHY W/RIGHT+LEFT CATH Bilateral 07/31/2022 CORONARY ANGIOGRAPHY W/RIGHT+LEFT CATH performed [place] Franco Mcgregor [place] [facility] [place] 10/22/2011 CYSTOURETHROSCOPY performed by LIBERTAD FITZPATRICK [place] [facility] [place] 09/13/2012 CYSTOURETHROSCOPY performed [place] Eliseo Menard [place] [facility] [place] DX/THER SUBSTANCE INTERLAMINAR LUMBAR/SACRAL W IMAGE GUIDE 06/23/2021 INJECTION SPINE LUMBAR OR SACRAL performed by Anderson Easton DO at [facility] OTHER 02/13/1980 Dr. Zhang DEX surgery OTHER [...] PROSTATE ELECTROSURGICAL performed by LIBERTAD FITZPATRICK at [facility] REMOVAL OF PROSTATE (TURP) 09/13/2012 TRANSURETHRAL RESECTION PROSTATE ELECTROSURGICAL performed by Eliseo Menard MD [place] [facility] [place]OVE CATARACT, INSERT LENS PROSTH OU REMOVE TONSILS & ADENOIDS, UNDER 12 SACROILIAC JOINT INJECT W/GUIDANCE 11/11/2022 INJECTION SACROILIAC JOINT performed by Anderson Easton DO at OR [facility] SACROILIAC JOINT INJECT W/GUIDANCE 02/10/2023 INJECTION SACROILIAC JOINT performed by Anderson Easton DO at OR [facility] SACROILIAC JOINT INJECT W/GUIDANCE 05/26/2023 INJECTION SACROILIAC JOINT performed by Anderson Easton DO at OR [facility] TRANSCATH REPAIR MITRAL VALVE, INITIAL Bilateral 11/16/2022 TRANSCATHETER MITRAL VALVE REPAIR performed by Franco Mcgregor MD [place] [facility] [place] [place]RECT[place] W/ REMOVE OF EPIRETINAL MEMBRANE 11/12/2008 Right eye Review of patient's allergies indicates: Allergen Reactions Duloxetine Other Reaction(s): confusion Adhesive Tape Levaquin [Levofloxacin] Review of Systems Constitutional: Positive for activity change and fatigue. Negative for appetite change and unexpected weight change. HENT: Negative for congestion, sore throat and trouble swallowing. Respiratory: Positive for shortness of breath. Negative for cough and wheezing. Cardiovascular: Positive for palpitations. Negative for chest pain and leg swelling. Gastrointestinal: Positive for constipation. Negative for abdominal pain, blood in stool, diarrhea,nausea and vomiting. Genitourinary: Negative for dysuria, frequency and hematuria. Musculoskeletal: Positive for arthralgias, back pain and gait problem. Neurological: Positive for dizziness and headaches. Negative for syncope. Psychiatric/Behavioral: Positive for agitation, dysphoric mood and sleep disturbance. Negative for confusion, decreased concentration and suicidal ideas. The patient is nervous/anxious. OBJECTIVE: BP 118/74 | Pulse 72 | Temp 36.2 C (97.1 F) | Resp 20 | Ht 1.708 m (5' 7.24") | Wt 102.1 kg (225 lb) | SpO2 95% | BMI 34.99 kg/m | BSA 2.2 m Physical Exam Vitals and nursing note reviewed. Constitutional: General: He is not in acute distress. Appearance: He is not toxic-appearing. HENT: Head: Normocephalic and atraumatic. Cardiovascular: Rate and Rhythm: Normal rate and regular rhythm. Heart sounds: Murmur heard. Systolic murmur is present with a grade of 2/6. No gallop. Pulmonary: Effort: Pulmonary effort is normal. Breath sounds: Normal breath sounds. No wheezing or rales. Abdominal: General: Bowel sounds are normal. There is no distension. Palpations: Abdomen is soft. Tenderness: There is no abdominal tenderness. Musculoskeletal: Right lower leg: No edema. Left lower leg: No edema. Neurological: Mental Status: He is alert. Mental status is at baseline. Gait: Gait abnormal. Psychiatric: Mood and Affect: Mood is depressed. Affect is flat. PLAN AND ASSESSMENT: 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) (Primary) - Start Sertraline HCl 25 MG Oral Tablet (Zoloft); Take 1 Tablet by mouth in the morning. CHF (congestive heart failure), NYHA class I, chronic, diastolic (HCC) - Increase Furosemide 40 MG Oral Tablet (Lasix); Take 1 Tablet by mouth in the morning. - PULSE OX W/ REST/EXERCISE, MULTIPLE (OP) - Start oxygen IN GAS; Administer 2 L/min(Oxygen) into nostril continuous. Oxygen saturation drops with ambulation HTN, goal below 150/90 - Furosemide 40 MG Oral Tablet (Lasix); Take 1 Tablet by mouth in the morning. BPH with obstruction/lower urinary tract symptoms Continue Finasteride DEX (obstructive sleep apnea) BIPAP intolerant Permanent atrial fibrillation (HCC) S/P Watchman Continue Metoprolol ER Presence of Watchman left atrial appendage closure device S/P MVR (mitral valve repair) History of CVA (cerebrovascular accident) Continue ASA Constipation, unspecified constipation type Continue Docusate Sacroiliitis, not elsewhere classified (HCC) Severe tricuspid regurgitation Atherosclerosis of yurok coronary artery of yurok heart without angina pectoris Continue ASA, and Metoprolol ER Gout, arthropathy Continue Allopurinol Follow Up: Return in about 1 week (around 11/29/2023), or if symptoms worsen or fail to improve. Benny Waite DO 8:09 PM 11/22/2023 documented in this encounter Nursing Notes * Marnie Baker LPN - 11/22/2023 4:01 PM EDT Here for follow up, pain left side of neck and above left hip as well. Please review zio documented in this encounter Plan of Treatment Upcoming Encounters Date Type Department Care Team (Late st Contact Info) Description 11/24/2023 11:00 AM EDT Home Visit Care Coordination and Integration [address] [place] [address] Mira Nascimento, [facility] Wellness Coordinator [address] [place] [address] 11/29/2023 1:40 PM EDT Office Visit Family Practice [address] [place] [address] [address] [place] [address] Benny Waite DO [address] [place] [address] 12/03/2023 8:30 AM EDT Pharmacy Family Practice 65 [facility] [address] [place] [id number] College, Pharmacist [address] [place] [address] 12/03/2023 8:40 AM EDT Office Visit Family Practice 65 [facility] 293 [place] [address] Benny Waite, DO 293 [facility] [place] [address] 12/03/2023 3:30 PM EDT Office Visit Interventional Pain Center, [facility] 132 [facility] [place] [address] Luann Guerra PA-C [facility] [place] [address] 12/13/2023 11:20 AM EDT Office Visit Family Practice [address] [place] [address] 293 [place] [address] Benny Waite, DO 293 [facility] [place] [address] 12/17/2023 8:30 AM EDT [facility] 132 [facility] [place] [address] Myrtle Allen RN 132 [place] [address] 12/21/2023 11:00 AM EDT Nurse Only Ancillary [address] [place] [address], [place] [address] College, Nurse Annual Wellness Visit [address] [place] [address], [place] [address] 01/05/2024 10:30 AM EDT Office Visit Cardiology, [facility] [address] [place] [address] Júnior Coppola PA-C [address] [place] [address] 01/12/2024 8:30 AM EDT Office Visit Cardiology, [facility] 132 [place] [address] Franco Mcgregor MD [address] [place] [address] 01/25/2024 1:00 PM EDT Telemedicine [facility] [place] 132 [place] [address] Yadira Omalley CRNP [address] [place] [address] Ines Castro, [facility] Wellness Coord[facility] [address] [place], [place] [id number] 02/15/2024 8:00 AM EDT Office Visit Cardiology, [facility] 132 [place] [address] Casimiro Barraza MD 132 [place] [address] 05/15/2024 1:20 PM EST Office Visit Otolaryngology [facility] 132 [place] [address] George Ferrer PA-C [address] [place] [address] Health Maintenance Due Date Last Done Comments COVID-19 Vaccine (2022- season) 2023 04/16/2023, 03/17/2022, 11/04/2021, Additional history exists Depression Monitoring 11/09/2024 11/10/2023 , 10/12/2023, 10/12/2023, Additional history exists Albumin/Creatinine Ratio 04/20/2026 04/20/2023 DTaP,Tdap,and Td Vaccines (2 - Td or Tdap) 04/20/2028 04/20/2018 Pneumococcal Vaccine: 65+ Years Completed 05/02/2019, 04/20/2018 Zoster Vaccines Completed 12/13/2019, 02/0 08/2019, 04/18/2015 Influenza Vaccine (FLU shot) Completed 01/2023, 03/12/2022, 03/13/2021, Additional history exists GARDASIL-HPV IMMUNIZATION SERIES Aged Out No longer eligible based on patient's age to complete this topic Hepatitis B Aged Out No longer eligi ble based on patient's age to complete this topic MENINGOCOCCAL (MENACTRA/MENVEO) Aged Out No longer eligible based on patient's age to complete this topic documented as of this encounter Medical Devices Implanted Type Area Geriatric Aide Device Identifier Shelf Expiration Date Model / Serial / Lot Device Watchman Flx 35mm - [id number] Implanted:Qty: 1 on 02/05/2022 by Diamond Teran IV, [place] [facility] [employer] : INTRV CARD [id number] 10/20/2024 [id number] / / [id number] Cath Thermodilution 6fr - [id number] Implanted:Qty: 1 on 07/31/2022 by Franco Mcgregor MD [place] [facility] [employer] [id number] 04/30/2024 [id number] / / [id number] Mirtaclip G4 - [id number] Implanted:Qty: 1 on 11/16/2022 at [facility] Jenn Rykert 06/25/2023 [id number] / / [id number] Clip Delivery Sytem G4 Xtw - [id number] Implanted:Qty: 1 on 11/16/2022 at [facility] [employer] [id number] 08/10/2023 [id number] / / [id number] Clip Delivery Sytem G4 Xtw - [id number] Implanted:Qty: 1 on 11/16/2022 at [facility] Jenn Rykert [id number] 09/10/2023 [id number] / / [id number] documented as of this encounter Procedures Procedure Name Priority Date/Time Associated Diagnosis Comments PULSE OX W/ REST/EXERCISE, MULTIPLE (OP) Routine 11/23/2023 CHF (congestive heart failure), NYHA class I, chronic, diastolic (HCC) documented in this encounter Results * PULSE OX W/ REST/EXERCISE, MULTIPLE (OP) (11/23/2023) Pulse Oximetry-Initia l Rest 90 Pulse Oximetry-During Exercise 86 Pulse Oximetry-Post Exercise 87 Comment:with 2 LPM of oxygen at rest 95. 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)- Primary CHF (congestive heart failure), NYHA class I, chronic, diastolic (HCC) HTN, goal below 150/90 BPH with obstruction/lower urinary tract symptoms Hypertrophy [...] (TIA), and cerebral infarction without residual deficits Constipation, unspecified constipation type Sacroiliitis, not elsewhere classified (HCC) Sacroiliitis, not elsewhere classified Severe tricuspid regurgitation Diseases of tricuspid valve Atherosclerosis of yurok coronary artery of yurok heart without angina pectoris Gout, arthropathy Gouty arthropathy, unspecified documented in this encounter Advance Directives * [...] and were consensually agreed upon. Care Teams Health Care Aide Relationship Specialty Start Date End Date Benny Waite DO [address] [facility] [place] [address] PCP - General Internal Medicine 04/03/21 documented as of this encounter
--- OUTSIDE RECORDS SUMMARY | 2023-12-04 10:15 | External Medical Summary | Summary of Care ---
Author Name Unknown Organization [facility] Address [address] [facility] [place] [address] Phone [phone] Care Team Providers Care Head Bander And Liner Operator Name Role Phone Benny Waite DO Primary Care Provider Reason for Visit * Reason Onset Date Comments [facility]: Maintenance 11/29/2023 Encounter Details Date Type Department Care Team (Late st Contact Info) Description 11/29/2023 Telephone [facility], [facility] [address] [facility] [place] [address] [facility], Nurse [facility] [address] [facility] [place] [phone] [facility]: Maintenance Allergies Active Allergy [...] Oral Tablet Extended Release 24 Hour (toPROL XL)Indications:Environmental Services Associate gunjan atrial fibrillation (HCC),CHF (congestive heart failure), [...] results. He will go to [facility] for abdominal x-ray today to [...] MVR (mitral valve repair) 11/16/2022 Atherosclerosis of [place] co 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 pectoris 08/11/2022 Severe tricuspid regurgitation 08/11/2022 Gout, arthropathy 07/20/2022 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 02/05/2022 Permanent atrial fibrillation 12/22/2021 Overview: Added automatically from request for surgery [id number] Last Assessment & Plan: S/p Watchman Current [...] the Comments) Remote Patient Monitoring Vendor: [facility] Device(s): Connected Scale Self - Management Plan [...] mRNA, LNP-s, No Pre serve, 2-Dose Series ([employer]) 08/20/2020,07/17/2020 COVID-19 mRNA, LNP-s, No Pre serve, 2-Dose Series ([employer]) 05/14/2021 COVID-19, LNP-s, No Preserve , Robbie-sucrose, Ages 12+ (Pfizer) 11/04/2021 COVID-19, MRNA-LNP, 23-24, P F, 30 MCG/0.3 mL, 12 YRS AND ABOVE, IM ([employer]) 04/16/2023 Covid-19, Mrna, Lnp-s, Pf, B ivalent, 30 Mcg, IM, 12 yrs and above ([employer]) 03/17/2022 Pneumococcal Conjugate Vacc, 13 Valent (Prevnar) [...] Team (Late st Contact Info) Description 11/29/2023 1:40 PM EDT Office Visit Family Practice [address] [place] [address] 293 [place] [phone] Benny Waite, 293 [place] [address] Arrived 12/03/2023 8:30 AM EDT Pharmacy Family Practice 65 [facility] 293 [place] [phone] College, Pharmacist [address] [place] [address] 12/03/2023 8:40 AM EDT Office Visit Family Practice 65 [facility] 293 [place] [address] Benny Waite, 293 [place] [address] 12/03/2023 3:30 PM EDT Office Visit Interventional Pain Center, [facility] [address] [place] [address] Luann Guerra PA-C [address] [place] [address] 12/13/2023 11:20 AM EDT Office Visit Family Practice 65 [facility] 293 [place] [address] Benny Waite, DO 293 [place] [address] 12/17/2023 8:30 AM EDT Home Visit [facility], [facility] 132 [place] [address] Myrtle Allen RN 132 [place] [address] 12/21/2023 11:00 AM EDT Nurse Only Ancillary [address] [place] [address] 293 [place] [address] College, Nurse Annual Wellness Visit [address] [place] [address] 01/05/2024 10:30 AM EDT Office Visit Cardiology, [facility] 132 [place] [address] Júnior Coppola PAClifC 132 [place] [address] 01/12/2024 8:30 AM EDT Office Visit Cardiology, [facility] 132 [facility] [place] [address] Franco Mcgregor MD [address] [place] [address] 01/25/2024 1:00 PM EDT Telemedicine [facility], [facility] 132 [place] [address] Yadira Omalley CRNP 132 [place] [address] Ines Castro, [facility] Women'S Activities Adviser [address] [place] [address] 02/15/2024 8:00 AM EDT Office Visit Cardiology, [facility] [address] [place] [address] Casimiro Barraza MD [address] [place] [address] 05/15/2024 1:20 PM EST Office Visit Otolaryngology [facility] [address] [place] [address] George Ferrer PA-C [address] [place] [address] Health Maintenance Due Date Last Done Comments COVID-19 Vaccine ( season) 2023 04/16/2023, 03/17/2022, 11/04/2021, Additional history [...] this encounter Medical Devices Implanted Type Area Hot Water Heater Installer Device Identifier Shelf Expiration Date Model / Serial / Lot Device Watchman Flx 35mm - [id number] Implanted:Qty: 1 on 02/05/2022 by Diamond Teran IV, [place] at [facility] [place] Operative Media : INTRV CARD [id number] 10/20/2024 [id number] / / [id number] Cath Thermodilution 6fr - [id number] Implanted:Qty: 1 on 07/31/2022 by Franco Mcgregor MD at [facility] [place] [employer] [id number] 04/30/2024 [id number] / / [id number] Mirtaclip G4 - [id number] Implanted:Qty: 1 on 11/16/2022 at [facility] [place] [employer] 06/25/2023 [id number] / / [id number] Clip Delivery Sytem G4 Xtw - [id number] Implanted:Qty: 1 on 11/16/2022 at [facility] [place] [employer] [id number] 08/10/2023 [id number] / / [id number] Clip Delivery Sytem G4 Xtw - [id number] Implanted:Qty: 1 on 11/16/2022 at [facility] [place] [employer] [id number] 09/10/2023 [id number] / / [id number] documented as of this encounter Advance [...] and were consensually agreed upon. Care Teams Head Bander And Liner Operator Relationship Specialty Start Date End Date Benny Waite DO [address] [place] [address] PCP - General Internal Medicine 11/25/23 documented as of this encounter
--- OUTSIDE RECORDS SUMMARY | 2023-12-04 10:15 | External Medical Summary | Summary of Care ---
Author Name Unknown Organization [facility] Address [address] [place] [address] Phone [phone] Care Team Providers Care Social And Human Services Assistant Name Role Phone Benny Waite DO Primary Care Provider [phone] Reason for Visit * Reason Onset Date Comments Advice 11/23/202311/22 Encounter Details Date Type Department Care Team (Late st Contact Info) Description 11/23/2023 Telephone Family Practice [address], [place] 293 [place] [phone] Benny Waite DO 293 [place] [address] Advice (11/22) Allergies Active Allergy Reactions Criticality Noted Date Comments Adhesive Tape 02/04/2017 Duloxetine High 07/13/2023 Other Reaction(s): confusion Levofloxacin 09/01/2019 documented as of this encounter (statuses as of 11/24/2023) Medications Medication Sig Dispensed Refills Start Date [...] Oral Tablet Extended Release 24 Hour (toPROL XL)Indications: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 02/05/2022 Permanent atrial fibrillation 12/22/2021 Overview: Added automatically from request for surgery [id number] Last Assessment & Plan: S/p Watchman Current [...] in the Comments) Remote Patient Monitoring Vendor: [facility] Device(s): Connected Scale Self - Management Plan [...] as of this encounter (statuses as of 11/24/2023) Resolved Problems Problem Noted Date Diagnosed Date [...] as of this encounter (statuses as of 11/24/2023) Immunizations Name Administration Dates Next Due COVID-19 mRNA, LNP-s, No Pre serve, 2-Dose Series (Moderna) 08/20/2020,07/17/2020 COVID-19 mRNA, LNP-s, No Pre serve, 2-Dose Series (Pfizer) 05/14/2021 COVID-19, LNP-s, No Preserve , Robbie-sucrose, Ages 12+ (Pfizer) 11/04/2021 COVID-19, MRNA-LNP, 23-24, P F, 30 MCG/0.3 mL, 12 YRS AND ABOVE, IM ([employer]-ComirnatTensil[employer]) 04/16/2023 Covid-19, Mrna, Lnp-s, Pf, B ivalent, [...] Telephone Encounter - Benny Waite DO - 11/24/2023 1:01 PM EDT Noted * Telephone Encounter - Marnie Baker LPN - 11/24/2023 12:50 PM EDT Advised patient to use portable oxygen until home concentrator arrives. Thank you * Telephone Encounter - Macy Carbajal OSA - 11/24/2023 9:44 AM EDT Returned Marnie's call When calling back, sounded very short of breath * Telephone Encounter - Benny Waite DO - 11/23/2023 8:14 PM EDT Noted Check in on patient tomorrow. * Telephone Encounter - Marnie Baker LPN - 11/23/2023 3:58 PM EDT Did take tramadol last night. Did sleep well and oxygen helped. Said he slept well last night. [facility], may will go as in patient. Thank you * Telephone Encounter - Macy Carbajal OSA - 11/23/2023 3:36 PM EDT Returning call wants one of the Angie to call him * Telephone Encounter - Marnie Baker LPN - 11/23/2023 2:49 PM EDT Called home number, left message to return call. Called cell, voicemail is full Thank you * Telephone Encounter - Macy Carbajal OSA - 11/23/2023 10:30 AM EDT Would like to speak to one of the Angie documented in this encounter Plan of Treatment Upcoming Encounters Date Type Department Care Team (Late st Contact Info) Description 11/29/2023 1:40 PM EDT Office Visit Family Practice 65 [facility] 293 [place] [address] Benny Waite, 293 [place] [address] 12/03/2023 8:30 AM EDT Pharmacy Family Practice 65 [facility] 293 [place] [address] College, Pharmacist [address] [place] [address] 12/03/2023 8:40 AM EDT Office Visit Family Practice 65 [facility] 293 [place] [address] Benny Waite, DO 293 [place] [place] [address] 12/03/2023 3:30 PM EDT Office Visit Interventional Pain Center, [facility] [address] [place] [address] Luann Guerra PA-C [address] [place] [address] 12/13/2023 11:20 AM EDT Office Visit Family Practice 65 [facility] 293 [place] [address] Benny Waite, 293 [place] [address] 12/17/2023 8:30 AM EDT [facility], [facility] 132 [facility] [place] [address] Myrtle Allen, MICHELLE [facility] [address] 12/21/2023 11:00 AM EDT Nurse Only Ancillary [address] [place] [address] 293 [place] [address] College, Nurse Annual Wellness Visit [address] [place] [address], [place] [address] 01/05/2024 10:30 AM EDT Office Visit Cardiology, [facility] 132 [facility] [place] [address] Júnior Coppola, PAClifC 132 [facility] [address] 01/12/2024 8:30 AM EDT Office Visit Cardiology, [facility] 132 [facility] [place] [address] Franco Mcgregor MD [address] [place] [address] 01/25/2024 1:00 PM EDT [facility]medicine [facility], [facility] 132 [facility] [place] [address] Yadira Omalley CRNP 132 [employer] [place] [address] Ines Castro, Community Health Director Bioinformatics [address] [place] [address] 02/15/2024 8:00 AM EDT Office Visit Cardiology, [facility] [address] [place] [address] Casimiro Barraza MD [address] [place] [address] 05/15/2024 1:20 PM EST Office Visit [facility] [place] [address] George Ferrer PA-C [address] [place] [address] Health Maintenance Due Date Last Done Comments [...] this encounter Medical Devices Implanted Type Area Rewind Operator Device Identifier Shelf Expiration Date Model / Serial / Lot Device Watchman Flx 35mm - [id number] Implanted:Qty: 1 on 02/05/2022 by Diamond Teran IV, MD at [facility] [employer] : INTRV CARD [id number] 10/20/2024 [id number] 50 / / [id number] Cath Thermodilution 6fr - [id number] Implanted:Qty: 1 on 07/31/2022 by Franco Mcgregor MD at [facility] [employer] [id number] 04/30/2024 [id number] / / [id number] Mirtaclip G4 - [id number] Implanted:Qty: 1 on 11/16/2022 at [facility] [employer] 06/25/2023 [id number] / / [id number] Clip Delivery Sytem G4 Xtw - [id number] Implanted:Qty: 1 on 11/16/2022 at [facility] [employer] [id number] 08/10/2023 [id number] / / [id number] Clip Delivery Sytem G4 Xtw - [id number] Implanted:Qty: 1 on 11/16/2022 at [facility] [employer] [id number] 09/10/2023 [id number] / / [id number] documented as of this encounter Advance [...] and were consensually agreed upon. Care Teams Social And Human Services Assistant Relationship Specialty Start Date End Date Benny Waite DO [address] [place] [address] PCP - General Internal Medicine 04/03/21 documented as of this encounter
--- OUTSIDE RECORDS SUMMARY | 2023-12-04 10:15 | External Medical Summary | Summary of Care ---
Author Name Unknown Organization [facility] Address [address] [facility] [address] Phone [phone] Care Team Providers Care Retail Merchandising Coordinator Name Role Phone Benny Waite DO Primary Care Provider [phone] Reason for Visit * Reason Onset Date Comments Advice 11/25/2023 Encounter Details Date Type Department Care Team (Late st Contact Info) Description 11/25/2023 Telephone Family Practice [address], [place] [address] [place] [address] [facility] [address] [place] [address] Advice Allergies Active Allergy Reactions Criticality Noted Date Comments Adhesive Tape 02/04/2017 Duloxetine High 07/13/2023 Other Reaction(s): confusion Levofloxacin 09/01/2019 documented as of this encounter (statuses as of 11/25/2023) Medications Medication Sig Dispensed Refills Start Date [...] Oral Tablet Extended Release 24 Hour (toPROL XL)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 Reports he generally moves his bowels daily. No BM for a week. Some mild abdominal discomfort, he is able to pass gas. No nausea or vomiting. He took a dose of MiraLax and stool softener last night without results. 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 02/05/2022 Permanent atrial fibrillation 12/22/2021 Overview: Added automatically from request for surgery [id number] Last Assessment & Plan: S/p Watchman Current [...] in the Comments) Remote Patient Monitoring Vendor: [facility] Device(s): Connected Scale Self - Management Plan [...] as of this encounter (statuses as of 11/25/2023) Resolved Problems Problem Noted Date Diagnosed Date [...] as of this encounter (statuses as of 11/25/2023) Immunizations Name Administration Dates Next Due COVID-19 mRNA, LNP-s, No Pre serve, 2-Dose Series (Moderna) 08/20/2020,07/17/2020 COVID-19 mRNA, LNP-s, No Pre serve, 2-Dose Series (Pfizer) 05/14/2021 COVID-19, LNP-s, No Preserve , Robbie-sucrose, Ages 12+ (Pfizer) 11/04/2021 COVID-19, MRNA-LNP, 23-24, P F, 30 MCG/0.3 mL, 12 YRS AND ABOVE, IM ([employer]) 04/16/2023 Covid-19, Mrna, Lnp-s, Pf, B ivalent, [...] encounter Miscellaneous Notes * Telephone Encounter - Antonietta Nguyễn [facility] - 11/25/2023 10:26 AM EDT Patient wondering about his sertraline and furosemide. Advised him that it was sent from [place] to [facility] and is on a truck. Per tracking number it will be delivered between 10:30a-2:30p today. Patient also asking about his oxygen, but while I put him on hold to check with the nurses and he hung up. Nurse checking with tomorrow health about the O2 order. Antonietta Vo, Pharm D, BCACP Clinical Pharmacist 65 [facility] 11/25/2023, 10:32 AM Ph. [phone] * Telephone Encounter - Macy West OSA - 11/25/2023 9:41 AM EDT Pt left a voicemail requesting Antonietta return his phone call. Please call him at [phone] documented in this encounter Plan of Treatment Upcoming Encounters Date Type Department Care Team (Late st Contact Info) Description 11/29/2023 1:40 PM EDT Office Visit Family Practice [address] [place] [address], [place] [phone] Benny Waite DO 293 [facility] [place] [address] 12/03/2023 8:30 AM EDT Pharmacy Family Practice [address] [place] [address] 293 [facility] [place] [address] College, Pharmacist [address] [place] [address], [place] [address] 12/03/2023 8:40 AM EDT Office Visit Family Practice 65 [facility] 293 [facility] [place] [address] Benny Waite, DO 293 [facility] [place] [address] 12/03/2023 3:30 PM EDT Office Visit Interventional Pain Center, [facility] [address] [place] [address] Luann Guerra PA-C [address] [place] [address] 12/13/2023 11:20 AM EDT Office Visit Family Practice [address] [place] [address] 293 [facility] [place] [address] Benny Waite, DO 293 [facility] [place] [address] 12/17/2023 8:30 AM EDT [facility] [address] [place] [address] Myrtle Allen RN [facility] [place] [address] 12/21/2023 11:00 AM EDT Nurse Only Ancillary [address] [place] [address], [place] [address] College, Nurse Annual Wellness Visit [address] [place] [address], [place] [address] 01/05/2024 10:30 AM EDT Office Visit Cardiology, [facility] 132 [place] [address] Júnior Coppola PA-C [address] [place] [address] 01/12/2024 8:30 AM EDT Office Visit Cardiology, [facility] 132 [facility] [place] [address] Franco Mcgregor MD [address] [place], [place] [address] 01/25/2024 1:00 PM EDT Telemedicine [facility], [facility] 132 [facility] [place] [address] Yadira Omalley CRNP 132 [place] [address] Ines Castro, Community Health Application Integration Architect [address] [place] [address] 02/15/2024 8:00 AM EDT Office Visit Cardiology, [facility] 132 [facility] [place] [address] Casimiro Barraza MD 132 [place] [address] 05/15/2024 1:20 PM EST Office Visit Otolaryngology [facility] 132 [facility] [place] [address] George Ferrer PA-C 132 [place] [address] Health Maintenance Due Date Last Done Comments [...] this encounter Medical Devices Implanted Type Area Invas Tech Device Identifier Shelf Expiration Date Model / Serial / Lot Device Watchman Flx 35mm - [id number] Implanted:Qty: 1 on 02/05/2022 by Diamond Teran IV, MD at [facility] [employer] : INTRV CARD [id number] 10/20/2024 [id number] 50 / / [id number] Cath Thermodilution 6fr - [id number] Implanted:Qty: 1 on 07/31/2022 by Franco Mcgregor MD at [facility] [employer] [id number] 04/30/2024 [id number] / / [id number] Mirtaclip G4 - [id number] Implanted:Qty: 1 on 11/16/2022 at [facility] [employer] 06/25/2023 [id number] / / [id number] Clip Delivery Sytem G4 Xtw - [id number] Implanted:Qty: 1 on 11/16/2022 at [facility] [employer] [id number] 08/10/2023 [id number] TW / / [id number] Clip Delivery Sytem G4 Xtw - [id number] Implanted:Qty: 1 on 11/16/2022 at [facility] [employer] [id number] 09/10/2023 [id number] TW / / [id number] documented as of this encounter Advance [...] and were consensually agreed upon. Care Teams Retail Merchandising Coordinator Relationship Specialty Start Date End Date Benny Waite DO PCP - General Internal Medicine 04/03/21 documented as of this encounter
--- OUTSIDE RECORDS SUMMARY | 2023-12-04 10:15 | External Medical Summary | Summary of Care ---
Author Name Unknown Organization [facility] Address [address] [facility] [address] Phone [phone] Care Team Providers Care Associate Product Manager Name Role Phone Benny Waite DO Primary Care Provider [phone] Reason for Visit * Reason Onset Date Comments Advice 11/25/2023 Encounter Details Date Type Department Care Team (Late st Contact Info) Description 11/25/2023 Telephone Family Practice 65 [facility] [place] 293 [place] [address] Benny Waite DO 293 [place] [address] Advice Allergies Active Allergy Reactions Criticality Noted [...] Oral Tablet Extended Release 24 Hour (toPROL XL)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 Call to pt-states he received a call from [facility] and they will be delivering his O2-pt not sure when. Told I would think it would be today or at latest tomorrow. To call if they do not come. Pt states since only getting O2 now would it be necessary to come in on Wednesday to see Dr Waite-told definitely to keep his appt on Wednesday. Pt still having some dizziness/lightheadedness. Told to monitor his time outside for the next few days-to be in the 80's and 90's. To stay inside when able and to drink plenty of fluids. * Telephone Encounter - Chery Murrieta PHARM Tech - 11/25/2023 11:47 AM EDT Reg home care called stating she needed to clarify a few things on script with While on the phone caller said she found it and disregard call. Thanks, Chery Murrieta Home Care Scheduler [facility] 11/25/2023,11:47 AM * Telephone Encounter - Marnie Bobo RN - 11/25/2023 11:03 AM EDT Pt had called in to pharmacist. Was also asking about when his oxygen is coming. Call made to [employer]. Flight Test Data Acquisition Technician pushed his O2 order as we talked. States it will be going through [facility] and that someone from [employer] and [facility] would be reaching out to him probably today Call to pt and notified of the above. Pt currently using POC at home when needed. documented in this encounter Plan of Treatment Upcoming Encounters Date Type Department Care Team (Late st Contact Info) Description 11/29/2023 1:40 PM EDT Office Visit Family Practice 65 [facility] 293 [place] [address] Benny Waite, DO 293 [place] [address] 12/03/2023 8:30 AM EDT Pharmacy Family Practice 65 [facility] 293 [place] [address] College, Pharmacist [address] [place] [address], [place] [address] 12/03/2023 8:40 AM EDT Office Visit Family Practice 65 [facility] 293 [place] [address] Benny Waite, DO 293 [place] [address] 12/03/2023 3:30 PM EDT Office Visit Interventional Pain Center, [facility] [address] [place] [address] Luann Guerra PA-C [facility] [place] [address] 12/13/2023 11:20 AM EDT Office Visit Family Practice [address] [place] [address] 293 [place] [address] Benny Waite, DO 293 [place] [address] 12/17/2023 8:30 AM EDT Home Visit [facility], [facility] [address] [place] [address] Myrtle Allen RN [address] [place] [address] 12/21/2023 11:00 AM EDT Nurse Only Ancillary 65 [facility] 293 [place] [address] College, Nurse Annual Wellness Visit [address] [place] [address] 01/05/2024 10:30 AM EDT Office Visit Cardiology, [facility] 132 [facility] [place] [address] Júnior Coppola PAClifC 132 [facility] [address] 01/12/2024 8:30 AM EDT Office Visit Cardiology, [facility] 132 [facility] [place] [address] Franco Mcgregor MD [address] [place] [address] 01/25/2024 1:00 PM EDT Telemedicine [facility], [facility] [place] [address] Yadira Omalley CRNP 132 [facility] [address] Ines Castro, Community Health Softball Umpire [address] [place] [address] 02/15/2024 8:00 AM EDT Office Visit Cardiology, [facility] 132 [facility] [place] [address] Casimiro Barraza MD 132 [facility] [address] 05/15/2024 1:20 PM EST Office Visit Otolaryngology [facility] 132 [facility] [place] [address] George Ferrer PA-C [address] [place] [address] Health Maintenance Due Date Last Done Comments [...] this encounter Medical Devices Implanted Type Area Linen Supervisor Device Identifier Shelf Expiration Date Model / Serial / Lot Device Watchman Flx 35mm - [id number] Implanted:Qty: 1 on 02/05/2022 by Diamond Teran IV, MD at [facility] [employer] : INTRV CARD [id number] 10/20/2024 [id number] 50 / / [id number] Cath Thermodilution 6fr - [id number] Implanted:Qty: 1 on 07/31/2022 by Franco Mcgregor MD at [facility] [employer] [id number] 04/30/2024 [id number] / / [id number] Mirtaclip G4 - [id number] Implanted:Qty: 1 on 11/16/2022 at [facility] [employer] 06/25/2023 [id number] / / [id number] Clip Delivery Sytem G4 Xtw - [id number] Implanted:Qty: 1 on 11/16/2022 at [facility] [employer] [id number] 08/10/2023 [id number] TW / / [id number] Clip Delivery Sytem G4 Xtw - [id number] Implanted:Qty: 1 on 11/16/2022 at [facility] [employer] [id number] 09/10/2023 [id number] / / [id number] documented as of this encounter Advance [...] and were consensually agreed upon. Care Teams Associate Product Manager Relationship Specialty Start Date End Date Benny Waite DO PCP - General Internal Medicine 04/03/21 documented as of this encounter
--- OUTSIDE RECORDS SUMMARY | 2023-12-04 10:15 | External Medical Summary | Summary of Care ---
Author Name Unknown Organization [facility] Address [address] [place] [place] [address] Phone [phone] Care Team Providers Care Director Of Vocational Guidance Name Role Phone Benny Waite DO Primary Care Provider [phone] Reason for Visit * Reason Onset Date Comments Advice 11/24/2023 Encounter Details Date Type Department Care Team (Late st Contact Info) Description 11/24/2023 Telephone Family Practice [address] [facility] [place] [facility] [place] [address] [place] [address] Benny Waite DO [address] [place] [address] Advice Allergies Active Allergy Reactions [...] Oral Tablet Extended Release 24 Hour (toPROL XL)Indications: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 02/05/2022 Permanent atrial fibrillation 12/22/2021 Overview: Added automatically from request for surgery [id number] Last Assessment & Plan: S/p Watchman Current [...] in the Comments) Remote Patient Monitoring V[place] [facility] [place]s): Connected Scale Self [...] MCG/0.3 mL, 12 YRS AND ABOVE, IM (Trunk Show-ComirnatPiqora) 04/16/2023 Covid-19, Mrna, Lnp-s, Pf, B ivalent, [...] Miscellaneous Notes * Telephone Encounter - Marnie Bobo, RN - 11/24/2023 12:13 PM EDT Returned call to Mira-she was asking about his O2-had just been in to see Nikolas and he said he hadn't gotten it yet and he wasn't sure where it was coming from. Told Mira that it was sent in through [employer] yesterday and it would be coming from [facility]. He is to use it as needed for SOB at 2 L. He has a portable oxygen concentrator at home. She will let Nikolas know. * Telephone Encounter - Macy Carbajal OSA - 11/24/2023 11:25 AM EDT Mira Nascimento called Wants to speak to Marnie Taylor Please call back documented in this encounter Plan of Treatment Upcoming Encounters Date Type Department Care Team (Late st Contact Info) Description 11/29/2023 1:40 PM EDT Office Visit Family Practice [address] [place] [address] [address] [place] [phone] Benny Waite, [address] [facility], [place] [address] 12/03/2023 8:30 AM EDT Pharmacy Family Practice 65 [facility] [address] [place] [phone] College, Pharmacist [address] [place] [address] 12/03/2023 8:40 AM EDT Office Visit Family Practice 65 [facility] [address] [place] [phone] Benny Waite, DO 293 [facility] [place] [address] 12/03/2023 3:30 PM EDT Office Visit Interventional Pain Center, [facility] 132 [facility] [place] [address] Luann Guerra PA-C 132 [facility] [place] [address] 12/13/2023 11:20 AM EDT Office Visit Family Practice [address] [place] [address] [address] [place] [address] Benny Waite, DO 293 [facility] [place] [address] 12/17/2023 8:30 AM EDT Home Visit [facility], [facility] 132 [facility] [place] [address] yMrtle Allen RN [facility] [address] 12/21/2023 11:00 AM EDT Nurse Only Ancillary [address] [place] [address], [place] [address] College, Nurse Annual Wellness Visit [address] [place] [address], [place] [address] 01/05/2024 10:30 AM EDT Office Visit Cardiology, [facility] [address] [facility] [place] [address] Júnior Coppola PAJaleesa [address] [place] [address] 01/12/2024 8:30 AM EDT Office Visit Cardiology, [facility] [address] [facility] [place] [address] Franco Mcgregor MD [address] [facility] [place] [address] 01/25/2024 1:00 PM EDT Telemedicine [facility], [facility] [address] Yadira Omalley CRNP 132 [place] [address] Ines Castro, [facility] [employer] Estate Underwriter [address] [place] [address] 02/15/2024 8:00 AM EDT Office Visit Cardiology, [facility] 132 [facility] [place] [address] Casimiro Barraza MD [address] [place] [address] 05/15/2024 1:20 PM EST Office Visit Otolaryngology [facility] 132 [facility] [address] George Ferrer PA-C [address] [place] [address] Health Maintenance Due Date Last Done Comments [...] this encounter Medical Devices Implanted Type Area Digital Measurement Advisor Device Identifier Shelf Expiration Date Model / Serial / Lot Device Watchman Flx 35mm - [id number] Implanted:Qty: 1 on 02/05/2022 by Diamond Teran IV, MD at [facility] [employer] : INTRV CARD [id number] 10/20/2024 [id number] / / [id number] Cath Thermodilution 6fr - [id number] Implanted:Qty: 1 on 07/31/2022 by Franco Mcgregor MD at [facility] [employer] [id number] 04/30/2024 [id number] / / [id number] Mirtaclip G4 - [id number] Implanted:Qty: 1 on 11/16/2022 at [facility] [employer] 06/25/2023 [id number] / / [id number] Clip Delivery Sytem G4 Xtw - [id number] Implanted:Qty: 1 on 11/16/2022 at [facility] [employer] [id number] 08/10/2023 [id number] / / [id number] Clip Delivery Sytem G4 Xtw - [id number] Implanted:Qty: 1 on 11/16/2022 at [facility] [employer] [id number] 09/10/2023 [id number] / / [id number] documented as of this encounter Advance [...] and were consensually agreed upon. Care Teams Director Of Vocational Guidance Relationship Specialty Start Date End Date Benny Waite DO [address] [place] [address] PCP - General Internal Medicine 04/03/21 documented as of this encounter
--- OUTSIDE RECORDS SUMMARY | 2023-12-04 10:15 | External Medical Summary | Summary of Care ---
Author Name Unknown Organization [facility] Address [address] [place] [address] Phone [phone] Care Team Providers Care Preflight Inspector Name Role Phone Benny Waite DO Primary Care Provider [phone] Reason for Visit * Reason Comments Follow Up Encounter Details Date Type Department Care Team (Late st Contact Info) Description 11/29/2023 1:40 PM EDT Office Visit Family Practice [address] [place] [address] [place] [address] Benny Waite DO [address] [place] [address] CHF (congestive heart failure), NYHA class I, chronic, diastolic (HCC)*; Permanent atrial fibrillation (HCC); Presence of Watchman left atrial appendage closure device; Chronic respiratory failure with hypoxia (HCC); 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); BPH with obstruction/lower urinary tract symptoms; DEX (obstructive sleep apnea); Gout, arthropathy; 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 He will go to [facility] for [facility]-ray today to [...] [facility] 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 Not on statin--LDL 89. Will defer to PCP to add statin--goal <70 BP at goal today. Sacroiliitis, not elsewhere classified 4 S/P MVR (mitral valve repair) 11/16/2022 Atherosclerosis of barrow co 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 pectoris 08/11/2022 Severe tricuspid regurgitation 08/11/2022 Gout, arthropathy 07/20/2022 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 02/05/2022 Permanent atrial fibrillation 12/22/2021 Overview: Added automatically from request for surgery [id number] Last Assessment & Plan: S/p Watchman Current [...] in the Comments) Remote Patient Monitoring Vendor: [facility] Device(s): Connected Scale Self - Management Plan [...] MCG/0.3 mL, 12 YRS AND ABOVE, IM ([employer]) 11/29/2023,04/16/2023 Covid-19, Mrna, Lnp-s, Pf, B ivalent, [...] Sign Reading Time Taken Comments Blood Pressure 118/62 11/29/2023 1:44 PM EDT Pulse 56 11/29/2023 1:44 PM EDT Temperature 36.7 C (98 F) 11/29/2023 1:44 PM EDT Respiratory Rate 16 11/29/2023 1:44 PM EDT Oxygen Saturation 92% 11/29/2023 1:44 PM EDT Inhaled Oxygen Concentration - - Weight 101.2 kg (223 lb 3.2 oz) 11/29/2023 1:44 PM EDT Height 170.8 cm (5' 7.24") 11/29/2023 1:44 PM ED T Body Mass Index 34.71 11/29/2023 1:44 PM EDT documented in this encounter Functional [...] No 11/16/2022 documented as of this encounter Patient Instructions * Patient Instructions* Marnie Baker LPN - 11/29/2023 1:43 PM EDT Patient Instructions - Fall Prevention (This education is for all patients over 65 regardless of symptoms) Remember to take your current medications as prescribed. In order to prevent falls, you are encouraged to: Exercise Utilize assistive/adaptive devices Avoid multifocal lenses when walking Avoid hazards in home Maintain a regular toileting schedule Any questions please contact our office. Preventing Falls in the Home (This education is for all patients over 65 regardless of symptoms) As you get older, falls are more likely. Thats because your reaction time slows. Your muscles and joints may also get stiffer, making them less flexible. Illness, medications, and vision changes can also affect your balance. A fall could leave you unable to live on your own. To make your home safer, follow these tips: Floors Put nonskid pads under area rugs Remove throw rugs Replace worn floor coverings Tack carpets firmly to each step on carpeted stairs. Put nonskid strips on the edges of uncarpeted stairs Keep floors and stairs free of clutter and cords Arrange furniture so there are clear pathways Clean up any spills right away Bathrooms Install grab bars in the tub or shower Apply nonskid strips or put a nonskid rubber mat in the tub or shower Sit on a bath chair to bathe Use bathmats with nonskid backing Lighting Keep a flashlight in each room Put a nightlight along the pathway between the bedroom and the bathroom Luis A Patient Education Copyright 2008 - 2010 Luis A except where otherwise noted Preventing Falls: Exercises to Improve Balance, Flexibility, Strength, and Staying Power (This education is for all patients over 65 regardless of symptoms) Certain types of exercises may help make you less likely to fall. Try the ones below. Or do other exercises that your healthcare provider suggests. Depending on your health, you may need to start slowly. Dont let that stop you. Even small amounts of exercise can help you. Be sure to talk to yourhealthcare provider before starting any exercise program. Improve Balance Many types of exercise can help improve balance. Riaz chi and yoga are good examples. Heres another one to try. You can do it anytime and almost anywhere. Stand next to a counter or solid support. Push yourself up onto your tiptoes. Hold for 5 seconds. If you start to lose your balance, hold on to the counter. Rest and repeat 5 times. Work up to holding for 20 to 30 seconds, if you can. Increase Flexibility Being more flexible makes it easier for you to move around safely. Try exercises like the seated hamstring stretch. Sit in a chair and put one foot on a stool. Straighten your leg and reach with both hands down either side of your leg. Reach as far down your leg as you can. Hold for about 20 seconds. Go back to the starting position. Then repeat 5 times. Switch legs. Build Strength Resistance exercises help build strength. You can do them without equipment. Or you can use weights, elastic bands, or special machines. One such exercise is called the biceps curl. You can hold a 1 pound weight or even a can of soup. Do this exercise at least 3 times a week. Strive for everyday. Sit up straight in a chair. Keep your elbow close to your body and your wrist straight. Bend your arm, moving your hand up to your shoulder. Then slowly lower your arm. Repeat 5 times. Switch to the other arm. Build Your Staying Power Aerobic exercises make your heart and lungs stronger so you can keep moving longer. Walking and swimming are two of the best types of exercises you can do. Using a stationary bike is great, too. Find an aerobic exercise that you enjoy. Start slowly and build up. Even 5 minutes is helpful. Aimfor a goal of 30 minutes, at least 3 times a week. You dont have to do 30 minutes in one session. Break it up and walk a little throughout the day. More Helpful Tips Start easy. Slowly work up to doing more. Talk with your healthcare provider about the best exercises for you. Call senior centers or health clubs about exercise programs. If needed, have a family member watch you walk every so often to check your stability. Exercise with a friend. Choose an activity you both enjoy. Try exercises that you can do anytime, anywhere. Here are two examples. Have someone with you when you first try these: Practice walking by placing one foot right in front of the other. Stand up and sit down 10 times. Repeat this throughout the day. Luis A Patient Education Copyright 2008 - 2010 Luis A except where otherwise noted. Preventing Falls: Moving Safely Using a Cane or Walker (This education is for all patients over 65 regardless of symptoms) Keep the cane away from your feet so you dont trip. A walking aid, such as a cane or walker, can help you stay more independent and avoid falls. Remember to keep your walking aid within easy reach when youre in a chair or in bed. And learn how to use it safely so you dont injure yourself. Using a Cane If you have a stronger side, hold the cane on that side. Get your balance. Move the cane and your weaker leg forward. Support your weight on both the cane and your weaker side. Step with your stronger leg. Start again from step 1. If youre using a folding walker, be sure you know how to lock it open. Check that its locked open before each use. Using a Walker Roll the walker (or lift it, if youre using one without wheels) forward about 12 inches. Step forward with your weaker leg first. Use the walker to help keep your balance. Bring your other foot forward to the center of the walker. Start again from step 1. Helpful Tips Check with your healthcare provider about the right walking aid to use. Ask about a walker with a seat attached. Check the tips of your cane or walker to make sure they have nonskid covers. Move slowly from room to room. Dont hanson. Sit down to get dressed. Use a donavon pack or backpack to keep your hands free. Get help for jobs that mean climbing, even on a stepstool. [employer] Patient Education Copyright 2008 - 2010 Luis A except where otherwise noted. Treating Urinary Incontinence in Men (This education is for all patients over 65 regardless of symptoms) You can't always control the release of urine. You may leak urine. Or you may not be able to hold your urine until you can get to a bathroom. This is called urinary incontinence. The problem can be managed. Talk to your doctor about your treatment options. Taking Medications Prescription medications may help you. They may: Help the sphincter to work better. (This is the muscle that closes to keep urine from leaking out of the bladder.) Help stop the bladder from valentino too often to push urine out. Help the bladder muscles contract with more force. Help relax the sphincter muscle and allow urine to flow more freely. Making Changes to Your Routine Certain changes in your daily routine may help. These include: Avoiding caffeine and alcohol. Using timed voiding. This is following a schedule for drinking fluids and urinating. Doing Kegel exercises daily. These exercises involve tightening the muscles in your sphincter and around your bladder to help strengthen them. Your doctor can explain how to do them. Using a Catheter A catheter is a narrow tube that is inserted through the urethra into the bladder. It drains urine.A condom catheter covers the penis. It channels urine into a collection bag. It is worn most of thetime. Intermittent catheterization means inserting a catheter to drain the bladder, then removing it. This is done on a regular schedule. Having Surgery If other options don't work, surgery may be recommended. If surgery is an option, your healthcare provider can discuss it with you and explain its risks and benefits. Healing After Prostate Surgery Surgery on the prostate gland can cause incontinence. Most often, the incontinence is only for a short time. It clears up when healing is complete. Very rarely, prostate surgery can result in permanent incontinence. documented in this encounter Progress Notes * Benny Waite, - 11/29/2023 2:10 PM EDT SUBJECTIVE: Nikolas Silvestre is a [...] with exertion and when he lays flat. Furosemide was increased 1 week ago and shortness of breath has improved slightly. Mood is slightly better. Weight is down. No chest pain is present. Fatigue is unchanged. His recently and he has irritability, difficulty sleeping and cries at times. Back pain is unchanged. Patient Active Problem List [...] appendage closure device Gout, arthropathy Atherosclerosis of barrow co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 pectoris Severe tricuspid [...] (HCC) 01/18/2018 Chronic respiratory failure with hypoxia (HCC) 11/29/2023 Current moderate episode of major depressive [...] (RECTUM) 02/13/2021 diverticulosis, fair prep / [facility] COLORECTAL CANCER SCREEN; NOT AT RISK 04/04/2008 Diverticulosis CORONARY ANGIOGRAPHY W/RIGHT+LEFT CATH Bilateral 07/31/2022 CORONARY ANGIOGRAPHY W/RIGHT+LEFT CATH performed by Franco Mcgregor MD at [facility] CYSTOSCOPY 10/22/2011 CYSTOURETHROSCOPY performed by LIBERTAD FITZPATRICK at [facility] CYSTOSCOPY 09/13/2012 CYSTOURETHROSCOPY performed by Eliseo Menard MD at [facility] INJECT DX/THER SUBSTANCE INTERLAMINAR LUMBAR/SACRAL W IMAGE GUIDE 06/23/2021 INJECTION SPINE LUMBAR OR SACRAL performed by Anderson Easton DO at [facility] OTHER 02/13/1980 Dr. Zhang DEX surgery OTHER left hand reconstruction PERC CLOSURE TRANSCATH LEFT ATRIAL APPENDAGE W/ENDOCARDIAL IMPLANT N/A 02/05/2022 PERCUTANEOUS CLOSURE LEFT ATRIAL APPENDAGE IMPLANT performed by Diamond Teran IV, MD at [facility] PSA 06/14/2004 3.42 PSA 06/14/2005 3.72 PSA 02/13/2008 5.17 REMOVAL OF PROSTATE (TURP) 10/22/2011 TRANSURETHRAL RESECTION PROSTATE ELECTROSURGICAL performed by LIBERTAD FITZPATRICK at [facility] REMOVAL OF PROSTATE (TURP) 09/13/2012 TRANSURETHRAL RESECTION PROSTATE ELECTROSURGICAL performed by Eliseo Menard MD at [facility] REMOVE CATARACT, INSERT LENS PROSTH OU REMOVE TONSILS & ADENOIDS, UNDER 12 SACROILIAC JOINT INJECT W/GUIDANCE 11/11/2022 INJECTION SACROILIAC JOINT performed by Anderson Easton DO at OR [facility] SACROILIAC JOINT INJECT W/GUIDANCE 02/10/2023 INJECTION SACROILIAC JOINT performed by Anderson Easton DO at OR [facility] SACROILIAC JOINT INJECT W/GUIDANCE 05/26/2023 INJECTION SACROILIAC JOINT performed by Anderson Easton DO at [facility] TRANSCATH REPAIR MITRAL VALVE, INITIAL Bilateral 11/16/2022 TRANSCATHETER MITRAL VALVE REPAIR performed by Franco Mcgregor MD at [facility] VITRECTOMY W/ REMOVE OF EPIRETINAL MEMBRANE 11/12/2008 Right eye Review of patient's allergies indicates: Allergen Reactions Duloxetine Other Reaction(s): confusion Adhesive Tape Levaquin [Levofloxacin] Review of Systems Constitutional: Positive for activity change and fatigue. Negative for chills and fever. HENT: Negative for congestion, sore throat and trouble swallowing. Respiratory: Positive for shortness of breath. Negative for cough and wheezing. Cardiovascular: Negative for chest pain, palpitations and leg swelling. Gastrointestinal: Negative for abdominal pain, blood in stool, constipation, diarrhea, nausea and vomiting. Genitourinary: Negative for dysuria, frequency and hematuria. Musculoskeletal: Positive for arthralgias, back pain, gait problem and myalgias. Neurological: Negative for dizziness, syncope and headaches. Psychiatric/Behavioral: Positive for agitation, dysphoric mood and sleep disturbance. Negative for confusion, decreased concentration, self-injury and suicidal ideas. OBJECTIVE: BP 118/62 | Pulse 56 | Temp 36.7 C (98 F) (Tympanic) | Resp 16 | Ht 1.708 m (5' 7.24") | Wt 101.2 kg (223 lb 3.2 oz) | SpO2 92% | BMI 34.71 kg/m | BSA 2.19 m Physical Exam [...] Motor: No weakness. Gait: Gait normal. Psychiatric: Attention and Perception: Attention normal. Mood and Affect: Mood is depressed. Affect is flat. Speech: Speech normal. Behavior: Behavior normal. Cognition and Memory: Cognition and memory normal. PLAN AND ASSESSMENT: CHF (congestive heart failure), NYHA class I, chronic, diastolic (HCC) (Primary) - BASIC METABOLIC PANEL; Future; Expected date: 11/29/2023 - MAGNESIUM; Future; Expected date: 11/29/2023 - BASIC METABOLIC PANEL - MAGNESIUM Continue Furosemide and Metoprolol ER Permanent atrial fibrillation (HCC) - CBC WITH WBC DIFFERENTIAL; Future; Expected date: 11/29/2023 - CBC WITH WBC DIFFERENTIAL Continue Metoprolol ER Presence of Watchman left atrial appendage closure device Chronic respiratory failure with hypoxia (HCC) Continue Oxygen 2 L NC 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) Continue Sertraline BPH with obstruction/lower urinary tract symptoms Continue FInasteride DEX (obstructive sleep apnea) BIPAP intolerant Gout, arthropathy Continue Allopurinol 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 Benny Waite DO 2:11 PM 11/29/2023 documented in this encounter Plan of Treatment Upcoming Encounters Date Type Department Care Team (Late st Contact Info) Description 12/03/2023 8:30 AM EDT Pharmacy Family Practice [address] [facility] [address] [place] [address] College, Pharmacist [address] [place] [address], [place] [address] 12/03/2023 8:40 AM EDT Office Visit Family Practice [address] [place] [address] [address] [place] [phone] Benny Waite DO 293 [place] [address] 12/03/2023 3:30 PM EDT Office Visit Interventional Pain Center, [facility] [address] [facility] [place] [address] Luann Guerra PA-C [address] [facility] [place] [address] 12/13/2023 11:20 AM EDT Office Visit Family Practice [address] [facility] [address] [place] [address] Benny Waite, [address] [place] [address] 12/17/2023 8:30 AM EDT Home Visit [facility], [facility] [address] [facility] [place] [address] Myrtle Allen RN 132 [facility] [place] [address] 12/21/2023 11:00 AM EDT Nurse Only Ancillary [address] [facility] [address] [place] [address] College, Nurse Annual Wellness Visit [address] [place] [address], [place] [address] 01/05/2024 10:30 AM EDT Office Visit Cardiology, [facility] [address] [facility] [place] [address] Júnior Coppola PA-C [address] [facility] [place] [address] 01/12/2024 8:30 AM EDT Office Visit Cardiology, [facility] [address] [facility] [place] [address] Franco Mcgregor MD [address] [place] [facility] [place] [address] 01/25/2024 1:00 PM EDT Telemedicine [facility], [facility] [address] [place] [address] Yadira Omalley CRNP [address] [facility] [place] [address] Ines Castro, Community Health Retail Salesperson [address] [place] [address] 02/15/2024 8:00 AM EDT Office Visit Cardiology, [facility] [address] [facility] [place] [address] Casimiro Barraza MD 132 [place] [address] 05/15/2024 1:20 PM EST Office Visit Otolaryngology [facility] [address] [facility] [place] [address] George Ferrer PA-C 132 [place] [address] Pending Results Name Type Priority Associated Diagnoses Date /Time BASIC METABOLIC PANEL Lab Routine CHF (congestive heart failure), NYHA class I, chronic, diastolic (HCC) 11/29/2023 2:07 PM EDT MAGNESIUM Lab Routine CHF (congestive heart failure), NYHA class I, chronic, diastolic (HCC) 11/29/2023 2:07 PM EDT CBC WITH WBC DIFFERENTIAL Lab Routine Permanent atrial fibrillation (HCC) 11/29/2023 2:07 PM EDT CBC Lab Routine Permanent atrial fibrillation (HCC) 11/29/2023 2:07 PM EDT DIFFERENTIAL, AUTOMATED Lab Routine Permanent atrial fibrillation (HCC) 11/29/2023 2:07 PM EDT Scheduled Orders Name Type Priority Associated Diagnoses Orde r Schedule BASIC METABOLIC PANEL Lab Routine CHF (congestive heart failure), NYHA class I, chronic, diastolic (HCC) Expected: 11/29/2023 (Approximate), Expires: 11/28/2024 MAGNESIUM Lab Routine CHF (congestive heart failure), NYHA class I, chronic, diastolic (HCC) Expected: 11/29/2023 (Approximate), Expires: 11/28/2024 CBC WITH WBC DIFFERENTIAL Lab Routine Permanent atrial fibrillation (HCC) Expected: 11/29/2023 (Approximate), Expires: 11/28/2024 Health Maintenance Due Date Last Done Comments [...] this encounter Medical Devices Implanted Type Area Rn Homecare Device Identifier Shelf Expiration Date Model / Serial / Lot Device Watchman Flx 35mm - [id number] Implanted:Qty: 1 on 02/05/2022 by Diamond Teran IV, MD at [facility] [employer] : INTRV CARD [id number] 10/20/2024 [id number] 50 / / [id number] Cath Thermodilution 6fr - [id number] Implanted:Qty: 1 on 07/31/2022 by Franco Mcgregor MD at [facility] [employer] [id number] 04/30/2024 [id number] / / [id number] Mirtaclip G4 - [id number] Implanted:Qty: 1 on 11/16/2022 at [facility] [employer] 06/25/2023 [id number] / / [id number] Clip Delivery Sytem G4 Xtw - [id number] Implanted:Qty: 1 on 11/16/2022 at [facility] [employer] [id number] 08/10/2023 [id number] / / [id number] Clip Delivery Sytem G4 Xtw - [id number] Implanted:Qty: 1 on 11/16/2022 at [facility] [employer] [id number] 09/10/2023 [id number] TW / / [id number] documented as of this encounter Visit Diagnoses Diagnosis CHF (congestive heart failure), NYHA class I, chronic, diastolic (HCC)- Primary Permanent atrial fibrillation (HCC) Atrial fibrillation Presence of Watchman left atrial appendage closure device Chronic respiratory failure with hypoxia (HCC) Chronic respiratory failure 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 and other lower urinary tract symptoms (LUTS) DEX (obstructive sleep apnea) Obstructive sleep apnea (adult) (pediatric) Gout, arthropathy Gouty arthropathy, unspecified 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 Care Teams Preflight Inspector Relationship Specialty Start Date End Date Benny Waite DO [address] [place] [address] PCP - General Internal Medicine 11/25/23 documented as of this encounter
--- OUTSIDE RECORDS SUMMARY | 2023-12-04 10:15 | External Medical Summary ---
Author Name Unknown Address Unknown Organization K01:[facility] - [address] [place] [address] Laboratory Report Ordering Provider Test Date Status NIKOS MISHRA 11/29/2023 14:07:55 Final Observation Date Value Abnormality Reference (Units ) Status Magnesium 11/29/2023 14:07:55 2.1 1.5-2.6 (m g/dL) Final Performing Location [facility] [address] [place] [address]
--- OUTSIDE RECORDS SUMMARY | 2023-12-04 10:15 | External Medical Summary ---
Author Name Unknown Address Unknown Organization K01:LABORATORY [facility] [place] - [address] [facility] [place] [address] Laboratory Report Ordering Provider Test Date Status NIKOS MISHRA 11/29/2023 14:07:55 Final Observation Date Value Abnormality Reference (Units ) Status SYNC LEUKOCYTES IN BLOOD BY AUTOMATED COUNT 11/29/2023 14:07:55 5.32 4.00-10.80 (K/uL) Final Segs 11/29/2023 14:07:55 57.7 40.0-75.0 (%) Final Lymphs % 11/29/2023 14:07:55 22.7 18.0-42.0 (%) Final Monos 11/29/2023 14:07:55 13.9 Above high normal 1.0-11.0 (%) Final Eosinophils 11/29/2023 14:07:55 4.5 0.0-6.0 (%) Final Basos 11/29/2023 14:07:55 0.6 0.0-2.0 (%) Final Immature Granulocyte, Percent 11/29/2023 14:07:55 0.6 0.0-2.0 (%) Final Absolute Segs 11/29/2023 14:07:55 3.07 1.80-7.70 (K/uL) Final Lymphs, absolute 11/29/2023 14:07:55 1.21 1.00-4.80 (K/ul) Final Monos, Abs 11/29/2023 14:07:55 0.74 0.00-1.10 (K/uL) Final Eos, Abs 11/29/2023 14:07:55 0.24 0.00-0.70 (K/uL) Final Basos, Abs 11/29/2023 14:07:55 0.03 0.00-0.20 (K/uL) Final Immature Granulocytes, Number 11/29/2023 14:07:55 0.03 0.00-0.20 (K/uL) Final Performing Location LABORATORY [facility] - [facility] [address] [facility] [address]
--- OUTSIDE RECORDS SUMMARY | 2023-12-04 10:15 | External Medical Summary | Summary of Care ---
Author Name Unknown Organization [facility] Address [address] [place] [address] Phone [phone] Care Team Providers Care Service Tester Name Role Phone Benny Waite DO Primary Care Provider [phone] Encounter Details Date Type Department Care Team (Late st Contact Info) Description 11/24/2023 11:00 AM EDT Home Visit Care Coordination and Integration [address] [place], [place] [phone] Mira Nascimento, Community Health Production Tester [address] [place], [place] [phone] Allergies Active Allergy Reactions Criticality Noted Date [...] Oral Tablet Extended Release 24 Hour (toPROL XL)Indications: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 He will go to 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 02/05/2022 Permanent atrial fibrillation 12/22/2021 Overview: Added automatically from request for surgery [id number] Last Assessment & Plan: S/p Watchman Current [...] Comments) Remote Patient Monitoring [place]endor[place] [facility] [place]s): Connected Scale Self - Management Plan [...] MCG/0.3 mL, 12 YRS AND ABOVE, IM (Met[employer]-Comirnat[employer] & Loyal) 04/16/2023 Covid-19, Mrna, Lnp-s, Pf, B ivalent, [...] Sign Reading Time Taken Comments Blood Pressure 120/85 11/24/2023 11:08 AM EDT Pulse 53 11/24/2023 11:08 AM EDT Temperature 36.2 C (97.1 F) 11/24/2023 11:08 AM E DT Respiratory Rate 20 11/24/2023 11:08 AM EDT Oxygen Saturation 91% 11/24/2023 11:08 AM EDT Inhaled Oxygen Concentration - - Weight - [...] as of this encounter Progress Notes * Mira Nascimento [facility] Health Production Tester - 11/24/2023 11:23 AM EDT Telemedicine visit: No Community Health Production Tester (REBEKAH) documentation: CHW f/u visit to check on vital signs/ BP. Pt's vital signs were good, although he stated he was having dizziness again and a headache. Pt stated the was to [facility] on Wednesday, November 212023. They changed his Lasix to double to dose,Zoloft was added, also. He stated he has not received these medications yet from mail order. CHW contacted the mail order services, however, there were no available techs to take the call. Pt's number was left for call back. Pt also stated that at his visit he was ordered home oxygen. He states that he has had no one from any oxygen vendor contact him yet. CHW placed a call to Marnie Bobo RN at [address] [place] [address] to see who the vendor was that was set up for oxygen. Awaiting return call. Electronically signed by Mira Nascimento [facility] Health Production Tester at 11/24/2023 11:48 AM EDT documented in this encounter Plan of Treatment Upcoming Encounters Date Type Department Care Team (Late st Contact Info) Description 11/29/2023 1:40 PM EDT Office Visit Family Practice [address] [place] [address] [place] [address] Benny Waite, DO 293 [facility] [place] [address] 12/03/2023 8:30 AM EDT Pharmacy Family Practice [address] [place] [address], [place] [address] College, Pharmacist [address] [place] [address] 12/03/2023 8:40 AM EDT Office Visit Family Practice 65 [facility] 293 [place] [address] Benny Waite, DO 293 [facility] [place] [address] 12/03/2023 3:30 PM EDT Office Visit Interventional Pain Center, [facility] 132 [facility] [place] [address] Luann Guerra PA-C 132 [facility] [place] [address] 12/13/2023 11:20 AM EDT Office Visit Family Practice [address] [place] [address], [place] [address] Benny Waite, DO 293 [facility] [place] [address] 12/17/2023 8:30 AM EDT [facility] [address] [place] [address] Myrtle Allen, RN 132 [facility] [place] [address] 12/21/2023 11:00 AM EDT Nurse Only Ancillary [address] [place] [address], [place] [address] College, Nurse Annual Wellness Visit [address], [place] [address] 01/05/2024 10:30 AM EDT Office Visit Cardiology, [facility] [address] [place] [address] Júnior Coppola PA-C 132 [facility] [place] [address] 01/12/2024 8:30 AM EDT Office Visit Cardiology, [facility] [place] [address] Franco Mcgregor MD [address] [place] [address] 01/25/2024 1:00 PM EDT Telemedicine [facility], [facility] [place] [address] Yadira Omalley CRNP 132 [facility] [place] [address] Ines Castro, Community Health Production Tester [address] [place], [place] [phone] 02/15/2024 8:00 AM EDT Office Visit Cardiology, [facility] 132 [facility] [place] [address] Casimiro Barraza MD 132 [facility] [place] [address] 05/15/2024 1:20 PM EST Office Visit Otolaryngology [facility] 132 [facility] [place] [address] George Ferrer PA-C 132 [facility] [address] Health Maintenance Due Date Last Done Comments [...] this encounter Medical Devices Implanted Type Area Lettuce Trimmer Device Identifier Shelf Expiration Date Model / Serial / Lot Device Watchman Flx 35mm - [id number] Implanted:Qty: 1 on 02/05/2022 by Diamnod Teran IV, MD at [facility] [employer] : INTRV CARD [id number] 10/20/2024 [id number] / / [id number] Cath Thermodilution 6fr - [id number] Implanted:Qty: 1 on 07/31/2022 by Franco Mcgregor MD at [facility] [employer] [id number] 04/30/2024 [id number] / / [id number] Mirtaclip G4 - [id number] Implanted:Qty: 1 on 11/16/2022 at [facility] [employer] 06/25/2023 [id number] / / [id number] Clip Delivery Sytem G4 Xtw - [id number] Implanted:Qty: 1 on 11/16/2022 at [facility] [employer] [id number] 08/10/2023 [id number] / / [id number] Clip Delivery Sytem G4 Xtw - [id number] Implanted:Qty: 1 on 11/16/2022 at [facility] [employer] [id number] 09/10/2023 [id number] / / [id number] documented as of this encounter Advance [...] and were consensually agreed upon. Care Teams Service Tester Relationship Specialty Start Date End Date Benny Waite DO [address] [place] [address] PCP - General Internal Medicine 04/03/21 documented as of this encounter
--- OUTSIDE RECORDS SUMMARY | 2023-12-04 10:15 | External Medical Summary | Summary of Care ---
Author Name Unknown Organization [facility] Address [address] [place] [facility] [place] [address] Phone [phone] Care Team Providers Care Supervisor [employer]ar [employer] Name Role Phone Benny Waite DO Primary Care Provider [phone] Reason for Visit * Reason Onset Date Comments Advice 11/23/202311/22 Encounter Details Date Type Department Care Team (Late st Contact Info) Description 11/23/2023 Telephone Family Practice [address] [place] [address] [place] [phone] Benny Waite DO 293 [place] [address] Advice (11/22) Allergies Active Allergy [...] Oral Tablet Extended Release 24 Hour (toPROL XL)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 [facility] to [facility], may will go as in patient. [...] PM EDT Office Visit Family Practice 65 [facility] 293 [place] [address] Benny Waite, 293 [place] [address] 12/03/2023 8:30 AM EDT Pharmacy Family Practice 65 [facility] 293 [place] [address] College, Pharmacist [address] [place] [address] 12/03/2023 8:40 AM EDT Office Visit Family Practice 65 [facility] 293 [place] [address] Benny Waite, DO 293 [place] [address] 12/03/2023 3:30 PM EDT Office Visit Interventional Pain Center, [facility] [address] [place] [address] Luann Guerra PA-C [address] [place] [address] 12/13/2023 11:20 AM EDT Office Visit Family Practice 65 [facility] 293 [place] [address] Benny Waite, 293 [place] [address] 12/17/2023 8:30 AM EDT [facility] Visit [facility], [facility] 132 [facility] [place] [address] Myrtle Allen, MICHELLE 132 [facility] [address] 12/21/2023 11:00 AM EDT Nurse Only Ancillary [address] [place] [address] 293 [place] [address] College, Nurse Annual Wellness Visit [address] [place] [address], [place] [address] 01/05/2024 10:30 AM EDT Office Visit Cardiology, [facility] 132 [facility] [place] [address] Júnior Coppola, PAClifC 132 [facility] [address] 01/12/2024 8:30 AM EDT Office Visit Cardiology, [facility] 132 [facility] [place] [address] Franco Mcgregor MD [address] [place] [address] 01/25/2024 1:00 PM EDT Telemedicine [facility], [facility] 132 [facility] [place] [address] Yadira Omalley CRNP 132 [place] [address] Ines Castro, Community Health Mechanical Intern [address] [place] [address] 02/15/2024 8:00 AM EDT Office Visit Cardiology, [facility] [address] [place] [address] Casimiro Barraza MD [address] [place] [address] 05/15/2024 1:20 PM EST Office Visit [facility]ol[facility]ology [facility] [place] [address] George Ferrer PA-C [address] [place] [address] Health Maintenance Due Date Last Done Comments [...] this encounter Medical Devices Implanted Type Area Spare Fixer Device Identifier Shelf Expiration Date Model / Serial / Lot Device Watchman Flx 35mm - [id number] Implanted:Qty: 1 on 02/05/2022 by Diamond Teran IV, MD at [facility] [employer] : INTRV CARD [id number] 10/20/2024 [id number] 50 / / [id number] Cath Thermodilution 6fr - [id number] Implanted:Qty: 1 on 07/31/2022 by Franco Mcgregor MD at [facility] [employer] [id number] 04/30/2024 [id number] / / [id number] Mirtaclip G4 - [id number] Implanted:Qty: 1 on 11/16/2022 at [facility] [employer] 06/25/2023 [id number] / / [id number] Clip Delivery Sytem G4 Xtw - [id number] Implanted:Qty: 1 on 11/16/2022 at [facility] [employer] [id number] 08/10/2023 [id number] / / [id number] Clip Delivery Sytem G4 Xtw - [id number] Implanted:Qty: 1 on 11/16/2022 at [facility] [employer] [id number] 09/10/2023 [id number] / / [id number] documented as of this encounter Advance [...] and were consensually agreed upon. Care Teams Supervisor Briar Shop Relationship Specialty Start Date End Date Benny Waite DO [address] [place] [address] PCP - General Internal Medicine 04/03/21 documented as of this encounter
--- OUTSIDE RECORDS SUMMARY | 2023-12-04 10:15 | External Medical Summary ---
Author Name Unknown Address Unknown Organization K01:LABORATORY [facility] [place] - [address] [facility] [address] [facility] [address] Laboratory Report Ordering Provider Test Date Status NIKOS MISHRA 11/29/2023 14:07:55 Final Observation Date Value Abnormality Reference (Units ) Status WBC, Total 11/29/2023 14:07:55 5.32 4.00-10.80 (K/uL) Final RBC 11/29/2023 14:07:55 4.29 4.50-5.25 (M/uL) Final Hemoglobin 11/29/2023 14:07:55 15.5 14.0-16.8 (g/dL) Final HCT 11/29/2023 14:07:55 45.7 40.0-48.4 (%) Final MCV 11/29/2023 14:07:55 106.5 82.0-99.5 (fL) Final MCH 11/29/2023 14:07:55 36.1 27.0-34.0 (pg) Final MCHC 11/29/2023 14:07:55 33.9 32.0-36.0 (g/dL) Final RDW 11/29/2023 14:07:55 14.2 11.5-15.5 (%) Final Platelets 11/29/2023 14:07:55 207 140-400 (K/uL) Final MPV 11/29/2023 14:07:55 11.0 6.6-11.1 (fL) Final Nucleated erythrocytes/100 leukocytes [Ratio] in Blood by Automated count 11/29/2023 14:07:55 0 <=0 (/100 WBCs) Final Performing Location LABORATORY [facility] - [address] [place] [address]
--- OUTSIDE RECORDS SUMMARY | 2023-12-04 10:16 | External Medical Summary | Summary of Care ---
Author Name Unknown Organization [facility] Address [address] [facility] [place] [address] Phone [phone] Care Team Providers Care Ebd Special Education Teacher Name Role Phone Benny Waite DO Primary Care Provider Reason for Visit * Reason Comments [facility]: Maintenance Encounter Details Date Type Department Care Team (Late st Contact Info) Description 11/18/2023 8:30 AM EDT [facility], [facility] [address] [place] [address] Myrtle Allen, RN [address] [place] [address] Allergies Active Allergy Reactions Criticality Noted Date Comments Adhesive Tape 02/04/2017 Duloxetine High 07/13/2023 Other Reaction(s): confusion Levofloxacin 09/01/2019 documented as of this encounter (statuses as of 11/18/2023) Medications Medication Sig Dispensed Refills Start Date [...] TIMES A DAY 300 Capsule 3 08/08/2023 08/07/19 25 Active Metoprolol Succinate ER 25 MG Oral Tablet Extended Release 24 Hour (toPROL XL)Indications:Ch ronic atrial fibrillation (HCC),CHF (congestive heart failure), NYHA class I, chronic, diastolic (HCC) Take 1 Tablet by mouth daily. 90 Tablet 3 08/09/2023 08/08/19 25 Active Senna 8.6 MG Oral CapsuleIndication s:Constipation, unspecified constipation type Take 8.6 mg by mouth daily. 08/12/2023 Active Additional Information Patient not taking.Reported on 11/18/2023 Proventil HFA 108 (90 Base) MCG/ACT Inhalation Aerosol Solution Inhale 2 Puffs by mouth 3 times a day as needed for Dyspnea, Cough or Wheezing. 6.7 g 3 09/10/2023 Active Furosemide 20 MG Oral Tablet (Lasix)Indication s:CHF (congestive heart failure), NYHA class I, chronic, diastolic (HCC) Take 1 Tablet by mouth in the morning. 100 Tablet 3 09/28/2023 Active traMADol HCl 50 MG Oral Tablet [...] for Dizziness. 60 Tablet 3 11/15/2023 Active Bisacodyl 10 MG Rectal Suppository (Dulcolax) Administer 1 Suppository into the rectum daily as needed for Constipation. Do not use for more than 1 week. 10 Suppository 10/26/2023 11/18/19 24 Discontinu ed(Medicat ion List Clean Up) documented as of this encounter (statuses as of 11/18/2023) Active Problems Problem Noted Date Diagnosed Date Constipation 10/26/2023 Last Assessment & Plan: New issue. Reports he generally moves his bowels daily. No BM for a week. Some mild abdominal discomfort, he is able to pass gas. No nausea or vomiting. He took a dose of MiraLax and stool softener last night without results. 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 02/05/2022 Permanent atrial fibrillation 12/22/2021 Overview: Added automatically from request for surgery [id number] Last Assessment & Plan: S/p Watchman Current [...] in the Comments) Remote Patient Monitoring Vendor: [facility] Device(s): Connected Scale Self - [...] as of this encounter (statuses as of 11/18/2023) Resolved Problems Problem Noted Date Diagnosed Date [...] as of this encounter (statuses as of 11/18/2023) Immunizations Name Administration Dates Next Due COVID-19 mRNA, LNP-s, No Pre serve, 2-Dose Series (Moderna) 08/20/2020,07/17/2020 COVID-19 mRNA, LNP-s, No Pre serve, 2-Dose Series (Pfizer) 05/14/2021 COVID-19, LNP-s, No Preserve , Robbie-sucrose, Ages 12+ (Pfizer) 11/04/2021 COVID-19, MRNA-LNP, 23-24, P F, 30 MCG/0.3 mL, 12 YRS AND ABOVE, IM ([employer]) 04/16/2023 Covid-19, Mrna, Lnp-s, Pf, B ivalent, 30 Mcg, IM, 12 yrs and above ([employer]) 03/17/2022 Pneumococcal Conjugate Vacc, 13 Valent (Prevnar) [...] Sign Reading Time Taken Comments Blood Pressure 108/68 11/18/2023 10:05 AM EDT left arm standing Pulse 85 11/18/2023 9:50 AM EDT Temperature 36.9 C (98.4 F) 11/18/2023 9 :50 AM EDT Respiratory Rate 20 11/18/2023 9:50 AM EDT Oxygen Saturation 93% 11/18/2023 9:5 0 AM EDT Inhaled Oxygen Concentration - - Weight 100.4 kg (221 lb 4.8 oz) 11/18/2023 9:50 AM EDT Height - - Body Mass Index 34.41 11/10/2023 2:03 PM EDT documented in this encounter Functional [...] as of this encounter Progress Notes * Myrtle Allen RN - 11/18/2023 7:49 AM EDT Images from the original note were not included. [facility] Green Promotions Specialist Visit Date: 11/18/2023 Time: 7:49 AM Name: Nikolas Silvestre : 1940 Current Concerns: Pt seen for return RNCM visit Pt reports he continues to have issues with high bp readings He checks at least once a day, sometimes twice a day He states he gets a headache when he has high readings Today he states he has a headache that radiates down the left side of his head and down to his leftshoulder area Also reports intermittent chest pains at times - last episode was this am, unable to say how long it lasted - states he drank a glass of water and went back to bed and it went away BP low during visit after taking morning meds - 100/60 manually and 105/71 with [facility]C cuff Bp 100/60 sitting and 108/68 standing Denies dizziness at this time States he does get dizzy sometimes with bending over Requesting to see medtronics technician but does not until end of December Message sent to Cardiology and scheduling to see if he can see Dr. Barraza or Júnior Coppola this month Lungs clear bilaterally Pulse ox of 97% reading today was nurse reading, not patient - to check accuracy Physical Exam: BP 108/68 Comment: left arm standing | Pulse 85 | Temp 36.9 C (98.4 F) | Resp 20 | Wt 100.4 kg (221 lb 4.8 oz) | SpO2 93% | BMI 34.41 kg/m | BSA 2.18 m Pain 4 Physical Exam Constitutional: General: He is not in acute distress. Cardiovascular: Rate and Rhythm: Normal rate and regular rhythm. Pulses: Normal pulses. Heart sounds: Normal heart sounds. Pulmonary: Effort: Pulmonary effort is normal. Breath sounds: Normal breath sounds. Abdominal: Palpations: Abdomen is soft. Skin: General: Skin is warm and dry. Neurological: Mental Status: He is alert and oriented to person, place, and time. Problems/Symptoms: Review of Systems Constitutional: Negative. HENT: Negative. Eyes: Negative. Respiratory: Positive for shortness of breath (at baseline). Cardiovascular: Negative. Gastrointestinal: Negative. Genitourinary: Negative. Musculoskeletal: Positive for arthralgias and gait problem. Skin: Negative. Neurological: Positive for dizziness (intermittent). Psychiatric/Behavioral: Positive for dysphoric mood. Medication Reconciliation: (See medication list) Does patient take medications as ordered: Yes Patient Well Being: PHQ2/9: No questionnaires available. No change in living situation Denies falls [facility] Completed this Visit: No. Routine visit and No falls since last visit Advanced Care Planning: No documentation, acp on file. Reinforcement/Education: Reviewed HF symptom monitoring: -Weigh self daily in am, post-void and record -Do not add salt to food, avoid foods high in sodium -Limit fluids to 2 liters per day -Report the following: ->2 lb weight gain in one day or 5 lbs in a week to PCP -increased edema in feet, abdomen or hands -increased SOB and cough, especially if at night -increased fatigue or vertigo Educated on home safety: Create a fall proof home Clear floors of clutter, loose wires, throw rugs, and cords. Make sure halls, stairways, and entrances are well lit. Install a nightlight in your bedroom, hallway and bathroom. Install grab bars or handrails in the bathroom and on stairs. Use a non-skid tub/shower mat. Avoid climbing on a chair; instead use a step stool with a high handrail. Keep sidewalks and steps in good repair Keep steps and sidewalks free of snow and ice. Using aids to support and prevent falls If you have poor balance or have fallen in the past, consider additional support such as a cane or walker. Use a cane with good support and that is the proper length for you. Use a walker if a cane doesnt provide enough support. Avoid medications that increase the risk of falling by causing dizziness, change in sensation or slowed reflexes. Certain medicines may cause falls - blood pressure pills, heart medicines, water pills, or sleepingpills. Be sure to understand each medicine that you are taking and any side effects that may occur. Improve your balance and flexibility with muscle strengthening exercises. Ask your health care provider for some exercises that will be right for you. Reinforced safety education and fall prevention. and Reinforced medication regimen. Timing., Dosing., and Purspose. Treatment/Plan: Continue meds as prescribed/reviewed Tramadol prn for pain Also takes apap twice a day Low Na diet Meclizine prn for dizziness Use of assistive device Keep all appts as scheduled Daily wts, bp and pulse ox readings via [facility] Home Interventions Provided: Home Intervention: Other; eval Consulted PCP/Specialist Reinforced current Plan of Care, including self-management and medication regimen Patient's 'Red Flags': Worsening SOB Poor balance Feeling more depressed or down Patient Needs to Remember: Call [facility] at with any new or worsening health concerns or problems, red flag symptoms. Referrals Needed: Other none Follow Up: Is there cellular connectivity/connectivity in the home? Yes Does the patient have internet in the home? Yes Patient encouraged to call the intake phone number for all urgent but not emergent issues. Is the patient new to [employer] [facility] within the last 30 days? No, Assess appropriateness for upcoming telehealth visits. Cancel telehealth visits & schedule home visit with care manufacturing team leader(s)as indicated. Provider is in agreement with Plan of Care: Yes Scheduled to follow up with patient in one month. Myrtle Allen RN 11/18/2023 7:49 AM documented in this encounter Plan of Treatment Upcoming Encounters Date Type Department Care Team (Late st Contact Info) Description 12/03/2023 8:30 AM EDT Pharmacy Family Practice [address] [place] [address] [place], Pharmacist [address] [place] [address] [place] [address] 12/03/2023 8:40 AM EDT Office Visit Family Practice 65 [facility] 293 [facility] [place] [address] Benny Waite, DO 293 [place] [address] 12/03/2023 3:30 PM EDT Office Visit Interventional [facility] Center, [facility] 132 [facility] [address] Luann Guerra PA-C 132 [place] [address] 12/13/2023 11:20 AM EDT Office Visit Family Practice 65 [facility] 293 [facility] [place] [address] Benny Waite, DO 293 [place] [address] 12/17/2023 8:30 AM EDT [facility] Visit [facility], [facility] 132 [facility] [place] [address] Myrtle Allen RN 132 [place] [address] 12/21/2023 11:00 AM EDT Nurse Only Ancillary 65 [facility] 293 [facility] [place] [address] College, Nurse Annual Wellness Visit [address] [place] [address] 01/12/2024 8:30 AM EDT Office Visit Cardiology, [facility] 132 [facility] [place] [address] Franco Mcgregor MD [address] [place] [address] 01/25/2024 1:00 PM EDT Telemedicine [facility], [facility] 132 [facility] [place] [address] Yadira Omalley CRNP [address] [place] [address] Ines Castro, Community Health Strainer Cleaner [address] [place] [address] 02/15/2024 8:00 AM EDT Office Visit Cardiology, [facility] 132 [facility] [place] [address] Casimiro Barraza MD 132 [facility] [place] [address] 05/15/2024 1:20 PM EST Office Visit Otolaryngology [facility] 132 [facility] [place] [address] George Ferrer PA-C 132 [facility] [place] [address] Health Maintenance Due Date Last Done Comments COVID-19 Vaccine ( season) 2023 04/16/2023, 03/17/2022, 11/04/2021, Additional history exists Depression, Most Recent Score >= 10 (will fire each visit until score < 10) 11/11/2023 11/10/2023, 10/12/2023, 10/12/2023, Additional history exists DTaP,Tdap,and Td Vaccines (2 - Td or [...] this encounter Medical Devices Implanted Type Area Medical Affairs Manager Device Identifier Shelf Expiration Date Model / Serial / Lot Device Watchman Flx 35mm - [id number] Implanted:Qty: 1 on 02/05/2022 by Diamond Teran IV, MD at [facility] [employer] : INTRV CARD [id number] 10/20/2024 [id number] / / [id number] Cath Thermodilution 6fr - [id number] Implanted:Qty: 1 on 07/31/2022 by Franco Mcgregor MD at [facility] [employer] [id number] 04/30/2024 [id number] / / [id number] Mirtaclip G4 - [id number] Implanted:Qty: 1 on 11/16/2022 at [facility] [employer] 06/25/2023 [id number] / / [id number] Clip Delivery Sytem G4 Xtw - [id number] Implanted:Qty: 1 on 11/16/2022 at [facility] [employer] [id number] 08/10/2023 [id number] / / [id number] Clip Delivery Sytem G4 Xtw - [id number] Implanted:Qty: 1 on 11/16/2022 at [facility] [employer] [id number] 09/10/2023 [id number] / / [id number] documented as of this encounter Advance [...] and were consensually agreed upon. Care Teams Ebd Special Education Teacher Relationship Specialty Start Date End Date Benny Waite DO 293 [place] [address] PCP - General Internal Medicine 04/03/21 documented as of this encounter
--- OUTSIDE RECORDS SUMMARY | 2023-12-04 10:16 | External Medical Summary | Summary of Care ---
Author Name Unknown Organization [facility] Address [address] [facility] [place] [address] Phone [phone] Care Team Providers Care Continuous Wave Operator Name Role Phone Benny Waite DO Primary Care Provider [phone] Reason for Visit * Reason Comments [facility]: Maintenance Encounter Details Date Type Department Care Team (Late st Contact Info) Description 11/20/2023 4:00 PM EDT Home Visit [facility], [facility] 132 [facility] [place] [address] [facility], Nurse [facility] 132 [facility] [place] [address] Allergies Active Allergy Reactions Criticality Noted Date Comments Adhesive Tape 02/04/2017 Duloxetine High 07/13/2023 Other Reaction(s): confusion Levofloxacin 09/01/2019 documented as of this encounter (statuses as of 11/20/2023) Medications Medication Sig Dispensed Refills Start Date [...] 09/10/2023 Active Furosemide 20 MG Oral Tablet (Lasix)Indications [...] for Dizziness. 60 Tablet 3 11/15/2023 Active documented as of this encounter (statuses as of 11/20/2023) Active Problems Problem Noted Date Diagnosed Date Constipation 10/26/2023 Last Assessment & Plan: New issue. Reports he generally moves his bowels daily. No BM for a week. Some mild abdominal discomfort, he is able to pass gas. No nausea or vomiting. He took a dose of MiraLax and stool softener last night without results. He will go to 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 02/05/2022 Permanent atrial fibrillation 12/22/2021 Overview: Added automatically from request for surgery [id number] Last Assessment & Plan: S/p Watchman Current [...] as of this encounter (statuses as of 11/20/2023) Resolved Problems Problem Noted Date Diagnosed Date [...] as of this encounter (statuses as of 11/20/2023) Immunizations Name Administration Dates Next Due COVID-19 mRNA, LNP-s, No Pre serve, 2-Dose Series (Moderna) 08/20/2020,07/17/2020 COVID-19 mRNA, LNP-s, No Pre serve, 2-Dose Series (Pfizer) 05/14/2021 COVID-19, LNP-s, No Preserve , Robbie-sucrose, Ages 12+ (Pfizer) 11/04/2021 COVID-19, MRNA-LNP, 23-24, P F, 30 MCG/0.3 mL, 12 YRS AND ABOVE, IM ([facility]) 04/16/2023 Covid-19, Mrna, Lnp-s, Pf, B ivalent, 30 Mcg, IM, 12 yrs and above ([employer]) 03/17/2022 Pneumococcal Conjugate Vacc, 13 Valent (Prevnar) [...] Sign Reading Time Taken Comments Blood Pressure 119/81 11/20/2023 10:17 AM EDT AM C bp monitor cuff Pulse 85 11/20/2023 10:17 AM EDT Temperature - - Respiratory Rate - - [...] as of this encounter Progress Notes * Teresa Hernández RN - 11/20/2023 4:00 PM EDT Images from the original note were not included. [facility] Home Mortgage UnderwriterCyber Security Instructor Visit Date: 11/20/2023 Time: 9:58 AM Name: Nikolas Silvestre : 1940 Acute HV 11/19/23- "Acute visit made to check bp at request of PCP Pt had spoke with PCP office this am and reported increased bp this am of 155/110 at 0630, 148/79 at 0830 - these were prior to taking morning meds He had also reported a severe headache upon awakening this am BP during visit 124/76 Denies HYDE this time - took Tramadol for pain with relief" Current Concerns: Acute visit for 24 hour prakash of bp. Took 2 Tramadol and bp medication around 0800. Still with headache at present. States he had been push mowing small area of back yard yesterday [place] SOB, increased headache and dizziness. Mentions his 6 weeks ago-offered condolences. RN manual bp 122/84 [facility] automatic cuff--119/81 HR 85 Pt denies falls, but states he flipped his computer chair onto its side yesterday. Did not hit his body or head on the floor. Denies injuries from accident yesterday. Physical Exam: BP 119/81 Comment: [facility] bp monitor cuff | Pulse 85 119/81 HR 85 on [facility] bp monitor cuff after RNCM manual bp check Pain 4 Manageable pain level is 2 [facility]-10 Completed this Visit: Yes. [facility]: Reason Completed: Status post fall [facility] ([facility]) Fall Risk Assessment Tool Age 65+: Yes (11/20/23999) Diagnosis (3 or more co-existing): Yes (11/20/23999) Prior history of falls within 3 months: No (11/20/23999) Incontinence: No (11/20/23999) Visual impairment: No (11/20/23999) Impaired functional mobility: No (11/20/23 1000) Environmental hazards: Yes (11/20/23999) Poly Pharmacy (4 or more prescriptions - any type): Yes (06/08/24 1000) Pain affecting level of function: No (11/20/23 1000) Cognitive impairment: No (11/20/23 1000) Score - a score of 4 or more is considered at risk for fallin (11/20/23 1000) [facility] Interventions: Fall education provided, reviewed/provided Fall brochure Treatment/Plan: 24 hr f/u visit for manual bp check Keep follow up visit with PCP 11/22/23 Home Interventions Provided: Home Intervention: Other; bp check Patient Needs to Remember: Call [facility] at with any new or worsening health concerns or problems, red flag symptoms. Referrals Needed: none Follow Up: Is there cellular connectivity/connectivity in the home? Yes Does the patient have internet in the home? Yes Patient encouraged to call the intake phone number for all urgent but not emergent issues. Scheduled to follow up with patient in 1 day. Teresa Hernández RN 11/20/2023 9:58 AM documented in this encounter Plan of Treatment Upcoming Encounters Date Type Department Care Team (Late st Contact Info) Description 11/21/2023 9:30 AM EDT [facility] Visit [facility] [place], [facility] 132 [facility] [place] [address] [facility], Nurse [facility] 132 [facility] [place] [address] 11/22/2023 4:20 PM EDT Office Visit Family Practice [address] [place] [address] 293 [facility], [place] [address] Benny Waite DO 293 [facility], [place] [address] 12/03/2023 8:30 AM EDT Pharmacy Family Practice 65 [facility] 293 [facility], [place] [address] College, Pharmacist [address] [place] [address], [place] [address] 12/03/2023 8:40 AM EDT Office Visit Family Practice 65 [facility] 293 [place] [address] Benny Waite, DO 293 [place] [address] 12/03/2023 3:30 PM EDT Office Visit Interventional Pain Center, [facility] 132 [facility] [place] [address] Luann Guerra PA-C 132 [facility] [address] 12/13/2023 11:20 AM EDT Office Visit Family Practice [address] [place] [address] Benny Waite, DO 293 [place] [address] 12/17/2023 8:30 AM EDT Home Visit [facility] [place], [facility] 132 [facility] [place] [address] Myrtle Allen RN 132 [facility] [address] 12/21/2023 11:00 AM EDT Nurse Only Ancillary [address] [place] [address] College, Nurse Annual Wellness Visit [address] [place] [address], [place] [address] 01/12/2024 8:30 AM EDT Office Visit Cardiology, [facility] 132 [facility] [place] [address] Franco Mcgregor MD 100 [place] [facility] [address] 01/25/2024 1:00 PM EDT [facility]icine [facility], [facility] [place] [address] Yadira Omalley CRNP 132 [facility] [place] [address] Ines Castro, Community Health Payroll Services Analyst [address] [place] [address] 02/15/2024 8:00 AM EDT Office Visit Cardiology, [facility] 132 [facility] [place] [address] Casimiro Barraza MD 132 [facility] [place] [address] 05/15/2024 1:20 PM EST Office Visit Otolaryngology [facility] 132 [facility] [place] [address] George Ferrer PA-C 132 [facility] [place] [address] Health Maintenance Due Date Last Done Comments [...] this encounter Medical Devices Implanted Type Area Inspector Hairspring Device Identifier Shelf Expiration Date Model / Serial / Lot Device Watchman Flx 35mm - [id number] Implanted:Qty: 1 on 02/05/2022 by Diamond Teran IV, MD at [facility] [place] [employer] : INTRV CARD [id number] 10/20/2024 [id number] 50 / / [id number] Cath Thermodilution 6fr - [id number] Implanted:Qty: 1 on 07/31/2022 by Franco Mcgregor MD at [facility] [facility] [employer] [id number] 04/30/2024 [id number] / / [id number] Mirtaclip G4 - [id number] Implanted:Qty: 1 on 11/16/2022 at [facility] [employer] 06/25/2023 [id number] / / [id number] Clip Delivery Sytem G4 Xtw - [id number] Implanted:Qty: 1 on 11/16/2022 at [facility] [employer] [id number] 08/10/2023 [id number] TW / / [id number] Clip Delivery Sytem G4 Xtw - [id number] Implanted:Qty: 1 on 11/16/2022 at [facility] [employer] [id number] 09/10/2023 [id number] / / [id number] documented as of this encounter Advance [...] and were consensually agreed upon. Care Teams Continuous Wave Operator Relationship Specialty Start Date End Date Benny Waite DO 293 [facility] [place] [address] PCP - General Internal Medicine 04/03/21 documented as of this encounter
--- OUTSIDE RECORDS SUMMARY | 2023-12-04 10:16 | External Medical Summary | Summary of Care ---
Author Name Unknown Organization [facility] Address [address] [place] [place] [address] Phone [phone] Care Team Providers Care Lease Broker Name Role Phone Benny Waite DO Primary Care Provider [phone] Reason for Visit * Reason Onset Date Comments Information 11/22/2023 Encounter Details Date Type Department Care Team (Late st Contact Info) Description 11/22/2023 Telephone Family Practice 65 [facility], [place] [address] [place] [address] Benny Waite DO [address] [place] [address] Information Allergies Active Allergy Reactions Criticality Noted Date Comments Adhesive Tape 02/04/2017 Duloxetine High 07/13/2023 Other Reaction(s): confusion Levofloxacin 09/01/2019 documented as of this encounter (statuses as of 11/22/2023) Medications Medication Sig Dispensed Refills Start Date [...] as of this encounter (statuses as of 11/22/2023) Active Problems Problem Noted Date Diagnosed Date Constipation 10/26/2023 Last Assessment & Plan: New issue. Reports he generally moves his bowels daily. No BM for a week. Some mild abdominal discomfort, he is able to pass gas. No nausea or vomiting. He took a dose of MiraLax and stool softener last night without results. He will go to [facility] for abdominal x-ray today to rule [...] [facility] 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 Not on statin--LDL 89. Will defer to PCP to add statin--goal <70 BP at goal today. 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 02/05/2022 Permanent atrial fibrillation 12/22/2021 Overview: Added automatically from request for surgery [id number] Last Assessment & Plan: S/p Watchman Current [...] in the Comments) Remote Patient Monitoring Vendor: [facility] Device(s): Connected Scale [...] as of this encounter (statuses as of 11/22/2023) Resolved Problems Problem Noted Date Diagnosed Date [...] as of this encounter (statuses as of 11/22/2023) Immunizations Name Administration Dates Next Due COVID-19 mRNA, LNP-s, No Pre serve, 2-Dose Series (Moderna) 08/20/2020,07/17/2020 COVID-19 mRNA, LNP-s, No Pre serve, 2-Dose Series (Pfizer) 05/14/2021 COVID-19, LNP-s, No Preserve , Robbie-sucrose, Ages 12+ (Pfizer) 11/04/2021 COVID-19, MRNA-LNP, 23-24, P F, 30 MCG/0.3 mL, 12 YRS AND ABOVE, IM ([employer]) 04/16/2023 Covid-19, Mrna, Lnp-s, Pf, B ivalent, [...] Telephone Encounter - Benny Waite DO - 11/22/2023 8:41 AM EDT Noted * Telephone Encounter - Marnie Bobo RN - 11/22/2023 8:30 AM EDT Pt calling in-states he awoke this AM with severe headache and dizzines-took BP- and it was 177/121,took AM meds-BP came down to 128/83, currently 135/71. Headache and dizziness have improved, stateshe just avoids bending over because that with start the headache and dizziness over again. [facility] was in for BP checks over the weekend and within normal range 11/19-119/81 and 122/84, 11/20 122/68. Pt has appt today with Dr Waite-to keep appt as scheduled. Dr Waite made aware. documented in this encounter Plan of Treatment Upcoming Encounters Date Type Department Care Team (Late st Contact Info) Description 11/22/2023 9:15 AM EDT Scheduled Telephone [facility], [facility] 132 [facility] [place] [address] Coordinator, [facility] 132 [facility] [place] [address] 11/22/2023 4:20 PM EDT Office Visit Family Practice [address] [place] [address] [address] [place] [address] Benny Waite, [address] [place] [address] 11/24/2023 11:00 AM EDT Home Visit Care Coordination and Integration [address] [place] [address] Mira Nascimento, Community Health Commissioner Public Works [address] [place] [address] 12/03/2023 8:30 AM EDT Pharmacy Family Practice 65 [facility] 293 [facility] [place] [address] College, Pharmacist [address] [place] [address] 12/03/2023 8:40 AM EDT Office Visit Family Practice [facility] 293 [facility] [place] [address] Benny Waite, DO 293 [facility] [place] [address] 12/03/2023 3:30 PM EDT Office Visit Interventional Pain Center, [facility] [address] [place] [address] Luann Guerra PA-C 132 [facility] [place] [address] 12/13/2023 11:20 AM EDT Office Visit Family Practice [facility] 293 [facility] [place] [address] Benny Waite, DO 293 [facility] [place] [address] 12/17/2023 8:30 AM EDT [facility], [facility] [address] [place] [address] Myrtle Allen RN 132 [facility] [place] [address] 12/21/2023 11:00 AM EDT Nurse Only Ancillary [address] [place] [address] 293 [facility] [place] [address] College, Nurse Annual Wellness Visit [address] [place] [address], [place] [address] 01/05/2024 10:30 AM EDT Office Visit Cardiology, [facility] [address] [place] [address] Júnior Coppola PAJaleesa [address] [place] [address] 01/12/2024 8:30 AM EDT Office Visit Cardiology, [facility] 132 [place] [address] Franco Mcgregor MD [address] [place] [address] 01/25/2024 1:00 PM EDT Telemedicine [facility], [place] [facility] 132 [place] [address] Yadira Omalley CRNP 132 [facility] [place] [address] Ines Castro, Community Health Commissioner Public Works [address] [place] [address] 02/15/2024 8:00 AM EDT Office Visit Cardiology, [facility] 132 [place] [address] Casimiro Barraza MD 132 [facility] [address] 05/15/2024 1:20 PM EST Office Visit Otolaryngology [facility] 132 [place] [address] George Ferrer PA-C 132 [place] [address] Health Maintenance Due Date Last Done Comments [...] this encounter Medical Devices Implanted Type Area Manager Chinese Device Identifier Shelf Expiration Date Model / Serial / Lot Device Watchman Flx 35mm - [id number] Implanted:Qty: 1 on 02/05/2022 by Diamond Teran IV, MD at [facility] Host Committee : INTRV CARD [id number] 10/20/2024 [id number] / / [id number] Cath Thermodilution 6fr - [id number] Implanted:Qty: 1 on 07/31/2022 by Franco Mcgregor MD at [facility] [employer] [id number] 04/30/2024 [id number] / / [id number] Mirtaclip G4 - [id number] Implanted:Qty: 1 on 11/16/2022 at [facility] [employer] 06/25/2023 [id number] / / [id number] Clip Delivery Sytem G4 Xtw - [id number] Implanted:Qty: 1 on 11/16/2022 at [facility] [employer] [id number] 08/10/2023 [id number] TW / / [id number] Clip Delivery Sytem G4 Xtw - [id number] Implanted:Qty: 1 on 11/16/2022 at [facility] [employer] [id number] 09/10/2023 [id number] TW / / [id number] documented as of this encounter Advance [...] and were consensually agreed upon. Care Teams Lease Broker Relationship Specialty Start Date End Date Benny Waite DO [address] [place] [address] PCP - General Internal Medicine 04/03/21 documented as of this encounter
--- OUTSIDE RECORDS SUMMARY | 2023-12-04 10:16 | External Medical Summary | Summary of Care ---
Author Name Unknown Organization [facility] Address [address] [facility] [place] [address] Phone [phone] Care Team Providers Care Civil Drafting Technician Name Role Phone Benny Waite DO Primary Care Provider Reason for Visit * Reason Comments [facility]: Acute Encounter Details Date Type Department Care Team (Late st Contact Info) Description 11/21/2023 9:30 AM EDT Home Visit [facility], [facility] 132 [facility] [place] [address] [facility], Nurse [facility] 132 [facility] [place] [address] Allergies Active Allergy Reactions Criticality Noted Date Comments Adhesive Tape 02/04/2017 Duloxetine High 07/13/2023 Other Reaction(s): confusion Levofloxacin 09/01/2019 documented as of this encounter (statuses as of 11/21/2023) Medications Medication Sig Dispensed Refills Start Date [...] as of this encounter (statuses as of 11/21/2023) Active Problems Problem Noted Date Diagnosed Date Constipation 10/26/2023 Last Assessment & Plan: New issue. Reports he generally moves his bowels daily. No BM for a week. Some mild abdominal discomfort, he is able to pass gas. No nausea or vomiting. He took a dose of MiraLax and stool softener last night without results. 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 02/05/2022 Permanent atrial fibrillation 12/22/2021 Overview: Added automatically from request for surgery [id number] Last Assessment & Plan: S/p Watchman Current [...] Comments) Remote Patient Monitoring Vendor: [facility] Device(s): Connected Scale Self - Management Plan [...] as of this encounter (statuses as of 11/21/2023) Resolved Problems Problem Noted Date Diagnosed Date [...] as of this encounter (statuses as of 11/21/2023) Immunizations Name Administration Dates Next Due COVID-19 mRNA, LNP-s, No Pre serve, 2-Dose Series (Moderna) 08/20/2020,07/17/2020 COVID-19 mRNA, LNP-s, No Pre serve, 2-Dose Series (Pfizer) 05/14/2021 COVID-19, LNP-s, No Preserve , Robbie-sucrose, Ages 12+ (Pfizer) 11/04/2021 COVID-19, MRNA-LNP, 23-24, P F, 30 MCG/0.3 mL, 12 YRS AND ABOVE, IM ([facility]) 04/16/2023 Covid-19, Mrna, Lnp-s, Pf, B ivalent, 30 Mcg, IM, 12 yrs and above ([employer]) 03/17/2022 Pneumococcal Conjugate Vacc, 13 Valent (Prevnar) [...] Sign Reading Time Taken Comments Blood Pressure 122/68 11/21/2023 10:51 AM EDT Pulse - - Temperature - - Respiratory Rate - - [...] Progress Notes * Myrtle Allen RN - 11/21/2023 10:27 AM EDT Images from the original note were not included. [facility] [employer] Cart RepairersBarrel Dedenting Machine Operator Visit Date: 11/21/2023 Time: 10:27 AM Name: Nikolas Silvestre : 1940 Current Concerns: Pt seen for bp check Has appt with pcp tomorrow and pcp requested daily bp check until seen Pt reports he woke up with a severe headache again this am Takes Tramadol 3x a day and is also taking Tylenol 1gram in am and 500mg in pm BP was 145/96 prior to taking bp meds and with HYDE He reports he still has a headache - meds help "some" Now bp is 131/93 via [facility] cuff and 122/68 manually Problems/Symptoms: Review of Systems Respiratory: Positive for shortness of breath (CHESTER - at baseline). Neurological: Positive for headaches. Physical Exam: BP 122/68 Pain 4 Physical Exam Constitutional: General: He is not in acute distress. Musculoskeletal: Right lower leg: No edema. Left lower leg: No edema. Skin: General: Skin is warm and dry. Neurological: Mental Status: He is alert and oriented to person, place, and time. [facility]-10 Completed this Visit: No. No falls since last visit Treatment/Plan: Continue meds as ordered Daily wts and bp check via [facility] Tramadol 3x a day APAP 1 gram twice a day or q 8 hrs as needed F/u with PCP tomorrow CHW check scheduled for 11/23 Home Interventions Provided: Home Intervention: Other; bp check, eval Reinforced current Plan of Care, including self-management and medication regimen Patient Needs to Remember: Call [facility] at with any new or worsening health concerns or problems, red flag symptoms. Referrals Needed: Other none Follow Up: Is there cellular connectivity/connectivity in the home? Yes Does the patient have internet in the home? Yes Patient encouraged to call the intake phone number for all urgent but not emergent issues. Scheduled to follow up with patient in 3 weeks, sooner if needed. Myrtle Allen RN 11/21/2023 10:27 AM documented in this encounter Plan of Treatment Upcoming Encounters Date Type Department Care Team (Late st Contact Info) Description 11/22/2023 4:20 PM EDT Office Visit Family Practice 65 [facility] 293 [place] [phone] Benny Waite, 293 [place] [address] 11/24/2023 11:00 AM EDT Home Visit Care Coordination and Integration [address] [place] [address] Mira Nascimento, Community Health Hospice Admitting Clerk [address] [place] [address] 12/03/2023 8:30 AM EDT Pharmacy Family Practice 65 [facility] 293 [place] [phone] College, Pharmacist [address] [place] [address], [place] [address] 12/03/2023 8:40 AM EDT Office Visit Family Practice [address] [place] [address] 293 [place] [phone] Benny Waite, 293 [place] [address] 12/03/2023 3:30 PM EDT Office Visit Interventional Pain Center, [facility] [address] [place] [address] Luann Guerra PA-C [address] [place] [address] 12/13/2023 11:20 AM EDT Office Visit Family Practice 65 [facility] [address] [place] [phone] Benny Waite, 293 [place] [address] 12/17/2023 8:30 AM EDT Home Visit [facility], [facility] 132 [facility] [place] [address] Myrtle Allen, RN 132 [facility] [place] [address] 12/21/2023 11:00 AM EDT Nurse Only Ancillary 65 [facility] 293 [place] [address] College, Nurse Annual Wellness Visit [address] [place] [address] 01/12/2024 8:30 AM EDT Office Visit Cardiology, [facility] 132 [place] [address] Franco Mcgregor MD [address] [place] [address] 01/25/2024 1:00 PM EDT Telemedicine [facility], [facility] 132 [place] [address] Yadira Omalley CRNP 132 [facility] [place] [address] Ines Castro, Community Health Hospice Admitting Clerk [address] [place], [place] [id number] 02/15/2024 8:00 AM EDT Office Visit Cardiology, [facility] 132 [place] [address] Casimiro Barraza MD 132 [facility] [place] [address] 05/15/2024 1:20 PM EST Office Visit Otolaryngology [facility] 132 [place] [place] [address] George Ferrer PA-C [address] [place] [address] Health Maintenance Due Date Last Done Comments [...] this encounter Medical Devices Implanted Type Area Supervisor Kosher Dietary Service Device Identifier Shelf Expiration Date Model / Serial / Lot Device Watchman Flx 35mm - [id number] Implanted:Qty: 1 on 02/05/2022 by Diamond Teran IV, MD at [facility] [employer] : INTRV CARD [id number] 10/20/2024 [id number] 50 / / [id number] Cath Thermodilution 6fr - [id number] Implanted:Qty: 1 on 07/31/2022 by Franco Mcgregor MD at [facility] [employer] [id number] 04/30/2024 [id number] / / [id number] Mirtaclip G4 - [id number] Implanted:Qty: 1 on 11/16/2022 at [facility] [employer] 06/25/2023 [id number] / / [id number] Clip Delivery Sytem G4 Xtw - [id number] Implanted:Qty: 1 on 11/16/2022 at [facility] [employer] [id number] 08/10/2023 [id number] TW / / [id number] Clip Delivery Sytem G4 Xtw - [id number] Implanted:Qty: 1 on 11/16/2022 at [facility] [employer] [id number] 09/10/2023 [id number] / / [id number] documented as of this encounter Advance [...] and were consensually agreed upon. Care Teams Civil Drafting Technician Relationship Specialty Start Date End Date Benny Waite DO [address] [facility] [place] [address] PCP - General Internal Medicine 04/03/21 documented as of this encounter
--- OUTSIDE RECORDS SUMMARY | 2023-12-04 10:16 | External Medical Summary | Summary of Care ---
Author Name Unknown Organization [facility] Address [address] [facility] [address] Phone [phone] Care Team Providers Care Shipping Specialist Name Role Phone Benny Waite DO Primary Care Provider [phone] Reason for Visit * Reason Onset Date Comments Advice 11/17/202311/16 Encounter Details Date Type Department Care Team (Late st Contact Info) Description 11/17/2023 Telephone Family Practice [address] [place] [address] [place] [phone] Benny Waite DO [address] [place] [address] Advice (11/16) Allergies Active Allergy Reactions Criticality Noted Date Comments Adhesive Tape 02/04/2017 Duloxetine High 07/13/2023 Other Reaction(s): confusion Levofloxacin 09/01/2019 documented as of this encounter (statuses as of 11/17/2023) Medications Medication Sig Dispensed Refills Start Date [...] by mouth daily. 90 Tablet 3 08/09/2023 Active Senna 8.6 MG Oral CapsuleIndications :Constipation, [...] the morning. 100 Tablet 3 09/28/2023 Active Bisacodyl 10 MG Rectal Suppository (Dulcolax) Administer 1 Suppository into the rectum daily as needed for Constipation. Do not use for more than 1 week. 10 Suppository 10/26/2023 Active traMADol HCl 50 MG Oral Tablet [...] as of this encounter (statuses as of 11/17/2023) Active Problems Problem Noted Date Diagnosed Date Constipation 10/26/2023 Last Assessment & Plan: New issue. Reports he generally moves his bowels daily. No BM for a week. Some mild abdominal discomfort, he is able to pass gas. No nausea or vomiting. He took a dose of MiraLax and stool softener last night without results. 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 02/05/2022 Permanent atrial fibrillation 12/22/2021 Overview: Added automatically from request for surgery [id number] Last Assessment & Plan: S/p Watchman Current [...] in the Comments) Remote Patient Monitoring Vendor: [facility] Device(s): Connected Scale Self [...] as of this encounter (statuses as of 11/17/2023) Resolved Problems Problem Noted Date Diagnosed Date [...] as of this encounter (statuses as of 11/17/2023) Immunizations Name Administration Dates Next Due COVID-19 mRNA, LNP-s, No Pre serve, 2-Dose Series (Moderna) 08/20/2020,07/17/2020 COVID-19 mRNA, LNP-s, No Pre serve, 2-Dose Series (Pfizer) 05/14/2021 COVID-19, LNP-s, No Preserve , Robbie-sucrose, Ages 12+ (Pfizer) 11/04/2021 COVID-19, MRNA-LNP, 23-24, P F, 30 MCG/0.3 mL, 12 YRS AND ABOVE, IM ([facility]) 04/16/2023 Covid-19, Mrna, Lnp-s, Pf, B ivalent, 30 Mcg, IM, 12 yrs and above ([employer]) 03/17/2022 Pneumococcal Conjugate Vacc, 13 Valent (Prevnar) [...] Telephone Encounter - Marnie Bobo RN - 11/17/2023 5:14 PM EDT Call to pt-states has not rechecked BP. Denies chest pain. Told I had checked with Dr Spears and she was OK with BP-just should continue to monitor. [facility] going in tomorrow. Pt states he has a sore throat-denies any allergies. DId not take temp. Told to try warm salt watergargles and keep throat moist with frequent sips of water. Pt asking if ZIO patch results are back yet-told that weren't and it takes 2-4 weeks to get results and that we would let him know once received. Pt frustrated that no one is helping him-told that we were trying-that is why we are doing the tests. Told to see how he does tomorrow with [facility]. * Telephone Encounter - Macy eWst OSA - 11/17/2023 4:54 PM EDT Pt calling back. When answering the phone, pt angrily states "Joelle Russo, thanks for having one of those nurses call me back, its pretty bad when you're having blood pressure problems and are unable to talk to a nurse" Pt was advised that Marnie Taylor did reach out to him earlier this afternoon but he didn't answer and a vm was not avail. Pt then asked if we expected him to sit in front of his phone waiting on a call all day long. I advised, yes, if you are waiting on a call and you do not have a voicemail, you should probably wait until you hear back. Pt states he does not need Marnie Taylor to call him back [facility] will be at his house tomorrow and theycan answer this for him. Marnie TaylorONOFRE. * Telephone Encounter - Mica Guzman LPN - 11/17/2023 3:31 PM EDT Please advise on below as well: ----- Message from Benny Waite DO sent at 11/17/2023 3:20 PM EDT ----- Zio is OK * Telephone Encounter - Marnie Bobo RN - 11/17/2023 2:32 PM EDT Call to pt-no answer-unable to leave a message-no machine. * Telephone Encounter - Macy Carbajal OSA - 11/17/2023 10:03 AM EDT Wants to speak to one of the Angie Outcome of tests ran last week And BP is elevated 143/90 Wants called documented in this encounter Plan of Treatment Upcoming Encounters Date Type Department Care Team (Late st Contact Info) Description 11/18/2023 8:30 AM EDT Home Visit [facility] [address] [address] Myrtle Allen RN [address] [address] 12/03/2023 8:30 AM EDT Pharmacy Family Practice 65 [facility] 293 [place] [phone] College, Pharmacist 65 [facility] 293 [place] [address] 12/03/2023 8:40 AM EDT Office Visit Family Practice 65 [facility] 293 [place] [phone] Benny Waite, 293 [facility] [place] [address] 12/03/2023 3:30 PM EDT Office Visit Interventional Pain Center, [facility] [address] [place] [address] Luann Guerra PA-C 132 [facility] [place] [address] 12/13/2023 11:20 AM EDT Office Visit Family Practice 65 [facility] 293 [place] [address] Benny Waite, [address] [place] [address] 12/21/2023 11:00 AM EDT Nurse Only Ancillary 65 [facility] [address] [place] [address] [place], Nurse Annual Wellness Visit [address] [address] 01/12/2024 8:30 AM EDT Office Visit Cardiology, [facility] 132 [place] [address] Franco Mcgregor MD [address] [place] [address] 01/25/2024 1:00 PM EDT Telemedicine [facility] [place], [facility] [address] [place] [address] Yadira Omalley CRNP 132 [place] [address] Ines Castro, [employer] Production Machine Operator [address] [place] [address] 02/15/2024 8:00 AM EDT Office Visit Cardiology, [facility] [address] [place] [address] Casimiro Barraza MD 132 [facility] [place] [address] 05/15/2024 1:20 PM EST Office Visit Otolaryngology [facility] [address] [place] [address] George Ferrer PA-C [address] [address] Health Maintenance Due Date Last Done Comments [...] this encounter Medical Devices Implanted Type Area Car Conditioner Device Identifier Shelf Expiration Date Model / Serial / Lot Device Watchman Flx 35mm - [id number] Implanted:Qty: 1 on 02/05/2022 by Diamond Teran IV, MD at [facility] [employer] : INTRV CARD [id number] 10/20/2024 [id number] / / [id number] Cath Thermodilution 6fr - [id number] Implanted:Qty: 1 on 07/31/2022 by Franco Mcgregor MD at [facility] [employer] [id number] 04/30/2024 [id number] / / [id number] Mirtaclip G4 - [id number] Implanted:Qty: 1 on 11/16/2022 at [facility] [employer] 06/25/2023 [id number] / / [id number] Clip Delivery Sytem G4 Xtw - [id number] Implanted:Qty: 1 on 11/16/2022 at [facility] [employer] [id number] 08/10/2023 [id number] / / [id number] Clip Delivery Sytem G4 Xtw - [id number] Implanted:Qty: 1 on 11/16/2022 at [facility] [employer] [id number] 09/10/2023 [id number] / / [id number] documented as of this encounter Advance [...] and were consensually agreed upon. Care Teams Shipping Specialist Relationship Specialty Start Date End Date Benny Waite DO [address] [place] [address] PCP - General Internal Medicine 04/03/21 documented as of this encounter
--- OUTSIDE RECORDS SUMMARY | 2023-12-04 10:16 | External Medical Summary | Summary of Care ---
Author Name Unknown Organization [facility] Address [address] [facility] [place] [address] Phone [phone] Care Team Providers Care Medical Chemist Name Role Phone Benny Waite DO Primary Care Provider [phone] Reason for Visit * Reason Onset Date Comments [facility]: Maintenance 11/18/2023 Encounter Details Date Type Department Care Team (Late st Contact Info) Description 11/18/2023 Telephone [facility], [facility] [address] [place] [address] Myrtle Allen, RN [address] [address] [address] [facility]: Maintenance Allergies Active Allergy [...] results. 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 02/05/2022 Permanent atrial fibrillation 12/22/2021 Overview: Added automatically from request for surgery [id number] Last Assessment & Plan: S/p Watchman Current [...] in the Comments) Remote Patient Monitoring Vendor: [facility] Device(s): Connected Scale Self - [...] MCG/0.3 mL, 12 YRS AND ABOVE, IM ([employer] [facility]) 04/16/2023 Covid-19, Mrna, Lnp-s, Pf, B ivalent, 30 Mcg, IM, 12 yrs and above ([employer]) 03/17/2022 Pneumococcal Conjugate Vacc, 13 Valent (Prevnar) [...] Miscellaneous Notes * Telephone Encounter - Preston Mchugh, DEX - 11/22/2023 8:18 AM EDT Patient has been scheduled on: Wednesday Arrive by 10:15 AM Appt at 10:30 AM (30 min) * Telephone Encounter - Benny Waite DO - 11/20/2023 8:45 AM EDT Noted. Agree with office visit on 11/21. * Telephone Encounter - Marnie Bobo RN - 11/19/2023 4:26 PM EDT Pt called in states that I should read the message from Júnior Coppola. Told him that he didn't wantto change/add any new medications at this time and that he should stay well hydrated, control his pain, etc. Told him that he wanted to schedule a f/u appt with him and that someone from his office would be reaching out to him. Pt states he was mowing grass-push mower-stopped and checked his BP-it was 199/80, pulse ox was 85%and HR 64. Pt has been resting and had him recheck his BP-it was 115/76, pulse ox 95, HR 86. [facility] and it was 124/76. Told pt that some from [facility] would be stopping in tomorr and Wednesday to check his BP. States he will be out of his meclizine tomorrow-states he calledmail order pharmacy and was told it was sent out today and he should have it tomorrow. Reinforced with him that this it a prn medication and should not be taken bid every day-only as needed. Pt to keep scheduled appt on Wednesday with Dr Waite. * Telephone Encounter - Júnior Coppola PA-C - 11/19/2023 1:15 PM EDT Labile blood pressures noted with systolic readings ranging from 97-160, generally acceptably well-controlled. With these readings, I am hesitant to add additional antihypertensive therapy at this time. Recommend staying hydrated, controlling pain, typical nonpharmacologic treatments. Please arrange cardiology follow-up evaluation with the undersigned. Júnior Coppola PA-C Department of Cardiology * Telephone Encounter - Benny Waite DO - 11/19/2023 12:51 PM EDT Noted. * Telephone Encounter - Marnie Bobo RN - 11/19/2023 12:[address] Waite had a cancellation on Wednesday11/22/23 at 4;20-call to pt-agreeable to appt-appt on Wednesday11/24/23 cancelled. * Telephone Encounter - Marnie Bobo RN - 11/19/2023 11:34 AM EDT Call to pt-states BP this AM at 6:30 was 155/110, 8:30 148/74 (took medication at that time), and 11:10 133/94. Continues with headaches that radiate down left neck and shoulder. Scheduled pt for appt 11/24 23 at 8:40AM-pt upset that he can't be seen sooner. Told would keep that appt but would checkwith Dr Waite on Wednesday to see if he can be seen any sooner. Pt not happy but agreeable. Sent message to Myrtle at [facility] to see how frequently they could go in to do a manual BP reading. Myrtle reached out stating that they can try to go in daily for a manual BP-told to do if possible until he is seen next week by Dr Waite. She suggested maybe only having him check his BP 1-2 hr after taking his blood pressure medication. She will let him know. * Telephone Encounter - Benny Waite DO - 11/19/2023 9:05 AM EDT Recommend daily BP taken manually, not with electronic device. Pain may be musculoskeletal referred from cervical disc disease. Neurologic evaluation just done in 07/2023 including MRI brain, and MRA head/ neck. Pain that radiates to the shoulder is not a symptom of TIA/CVA. He does not need evaluation id ED at this time. Does cardiology have any recommendations on blood pressure variation ? Schedule visit with me. * Telephone Encounter - Júnior Coppola PA-C - 11/18/2023 3:43 PM EDT I'm not convinced that the BP readings are causing the headaches that radiate down left side of face and to shoulder area. Recommend evaluation by PCP et al, ER if acute neurological issues. Júnior Coppola PA-C Department of Cardiology * Telephone Encounter - Myrtle Allen RN - 11/18/2023 10:15 AM EDT Images from the original note were not included. Pt has been having ongoing issues with fluctuating bp, high readings with headaches that radiate down left side of face and to shoulder area. Has home [facility] bp cuff and checked today and seems accurate. [facility] cuff reading was 105/70 and manual was 100/60 sitting and 108/68 standing. He is requesting f/u with Dr. Barraza or Júnior Coppola this month if possible. He sees Dr. Mcgregor end of next month but this issue has been ongoing and he is getting concerned with his readings and headaches. Could an appointment please be arranged? Thank you! documented in this encounter Plan of Treatment Upcoming Encounters Date Type Department Care Team (Late st Contact Info) Description 11/22/2023 9:15 AM EDT Scheduled Telephone [facility] [place], [address] [place] [address] Coordinator, [facility] [address] [place] [address] 11/22/2023 4:20 PM EDT Office Visit Family Practice 65 [facility] 293 [place] [phone] Benny Waite, DO 293 [place] [address] 11/24/2023 11:00 AM EDT Home Visit Care Coordination and Integration [address] [place] [address] Mira Nascimento, Community Health Recreation Worker [address] [place] [address] 12/03/2023 8:30 AM EDT Pharmacy Family Practice 65 [facility] 293 [place] [phone] College, Pharmacist [address] [place] [address] 12/03/2023 8:40 AM EDT Office Visit Family Practice [address] [place] [address] 293 [place] [phone] Benny Waite, DO 293 [place] [address] 12/03/2023 3:30 PM EDT Office Visit Interventional Pain Center, [facility] [address] [address] Luann Guerra PA-C [address] [place] [address] 12/13/2023 11:20 AM EDT Office Visit Family Practice 65 [facility] 293 [place] [phone] Benny Waite, DO 293 [place] [address] 12/17/2023 8:30 AM EDT Home Visit [facility], [facility] 132 [place] [address] Myrtle Allen, RN 132 [place] [address] 12/21/2023 11:00 AM EDT Nurse Only Ancillary 65 [facility] 293 [place] [address] College, Nurse Annual Wellness Visit [address] [place] [address] 01/05/2024 10:30 AM EDT Office Visit Cardiology, [facility] 132 [place] [address] Júnior Coppola PAClifC [address] [place] [address] 01/12/2024 8:30 AM EDT Office Visit Cardiology, [facility] 132 [place] [address] Franco Mcgregor MD [address] [place] [address] 01/25/2024 1:00 PM EDT Telemedicine [facility], [facility] 132 [place] [address] Yadira Omalley CRNP 132 [place] [address] Ines Castro, Community Health Recreation Worker [address] [place] [address] 02/15/2024 8:00 AM EDT Office Visit Cardiology, [facility] [address] [place] [address] Casimiro Barraza MD [address] [place] [address] 05/15/2024 1:20 PM EST Office Visit Otolaryngology [facility] [address] [place] [address] George Ferrer PA-C [address] [place] [address] Health Maintenance Due Date Last Done Comments [...] this encounter Medical Devices Implanted Type Area Dry Cell And Battery Assembler Device Identifier Shelf Expiration Date Model / Serial / Lot Device Watchman Flx 35mm - [id number] Implanted:Qty: 1 on 02/05/2022 by Diamond Teran IV, MD at [facility] [place] [employer] : INTRV CARD [id number] 10/20/2024 [id number] 50 / / [id number] Cath Thermodilution 6fr - [id number] Implanted:Qty: 1 on 07/31/2022 by Franco Mcgregor MD at [facility] [place] [place] [employer] [id number] 04/30/2024 [id number] / / [id number] Mirtaclip G4 - [id number] Implanted:Qty: 1 on 11/16/2022 at [facility] [place] [place] [employer] 06/25/2023 [id number] / / [id number] Clip Delivery Sytem G4 Xtw - [id number] Implanted:Qty: 1 on 11/16/2022 at [facility] [place] [place] [employer] [id number] 08/10/2023 [id number] / / [id number] Clip Delivery Sytem G4 Xtw - [id number] Implanted:Qty: 1 on 11/16/2022 at [facility] [place] [place] [employer] [id number] 09/10/2023 [id number] / / [id number] documented as of this encounter Advance [...] were consensually agreed upon. Care Teams Medical Chemist Relationship Specialty Start Date End Date Benny Waite DO 293 [facility], [place] [address] PCP - General Internal Medicine 04/03/21 documented as of this encounter
--- OUTSIDE RECORDS SUMMARY | 2023-12-04 10:16 | External Medical Summary | Summary of Care ---
Author Name Unknown Organization [facility] Address [address] [facility] [place] [address] Phone [phone] Care Team Providers Care Real Estate Broker Name Role Phone Benny Waite DO Primary Care Provider [phone] Reason for Visit * Reason Onset Date Comments Follow Up 11/22/2023 Encounter Details Date Type Department Care Team (Late st Contact Info) Description 11/22/2023 9:15 AM EDT Scheduled Telephone [facility], [facility] [address] [place] [address] Coordinator, [facility] [address] [place] [address] Allergies Active Allergy Reactions Criticality Noted Date [...] night without results. 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 02/05/2022 Permanent atrial fibrillation 12/22/2021 Overview: Added automatically from request for surgery [id number] Last Assessment & Plan: S/p Watchman Current [...] in the Comments) Remote Patient Monitoring Vendor: [facility] Device(s): Connected Scale Self - Management Plan [...] MCG/0.3 mL, 12 YRS AND ABOVE, IM ([employer]EX) 04/16/2023 Covid-19, Mrna, Lnp-s, Pf, B ivalent, 30 Mcg, IM, 12 yrs and above ([employer]) 03/17/2022 Pneumococcal Conjugate Vacc, 13 Valent (Prevnar) [...] encounter Miscellaneous Notes * Telephone Encounter - Symone Sneed RN - 11/22/2023 8:12 AM EDT Images from the original note were not included. [facility] Telephonic Nurse Follow-Up Call [facility] Subprogram: Focused Care Management (3-9 months) Follow Up Call Type: Routine follow up call / Status Check Acute issue requiring follow-up call: Other: Dizzy, nervous, hypertensive. Objective: 11/21/2023 10:51 AM 11/20/2023 10:17 AM 11/20/2023 10:16 AM 11/19/2023 12:52 PM 11/18/2023 10:05 AM VITALS ACROSS ENCOUNTERS BP 122/68 119/81 122/84 124/76 108/68 Pulse 85 Remote Patient Monitoring: [facility] Blood Pressure Cuff: Oxygen Needs: NO CHANGE from baseline supplemental oxygen needs DME Needs: NO DME needs identified Medications: No medication or dose adjustments made during acute episode Subjective: Condition Status: Improvement in symptoms but not at baseline Current Concerns: Spoke to Nikolas, he tells me he is feeling better now, denies dizziness, denies headache. Last BP on [facility] this morning 162/84. He states he wasn't calling 911 to go to ED last night because they don't doanything for him. I explained that they have medication to lower BP. He states [facility] nurses came to check his BP this weekend and he doesn't know why, he has a BP cuff that we monitor. I explained we just want to check on him and make sure the BP cuff was working properly. He also told me he doesn't know if he is going to PCP appt today, it is at 4:30pm and that doesn't give him a lot of time in office because it closes. I recommended he go to PCP appointment. Advised to call [facility] at [phone] with any new or worsening symptoms, call 911 in case of emergency. Disposition: Issue resolved. All appropriate follow up scheduled. Future Visits Scheduled: Future Appointments-next 60 days Date/Time Provider Specialty Dept Phone 11/22/2023 9:15 AM [facility] [phone] 11/22/2023 4:20 PM (Arrive by 4:05 PM) Benny Waite DO Family Medicine [phone] 11/24/2023 11:00 AM Mira Nascimento [facility] Health Pipe Organ Mechanic Apprentice Family Medicine [phone] 12/03/2023 8:30 AM (Arrive by 8:15 AM) Edi, Pharmacist 65 [facility] Medicine [phone] 12/03/2023 8:40 AM (Arrive by 8:25 AM) Benny Waite DO Family Medicine [phone] 12/03/2023 3:30 PM (Arrive by 3:15 PM) Luann Guerra PA-C Pain Medicine [phone] 12/13/2023 11:20 AM (Arrive by 11:05 AM) Benny Waite DO Family Medicine [phone] 12/17/2023 8:30 AM Myrtle Allen RN [facility] [place] [phone] 12/21/2023 11:00 AM College, Nurse Annual Wellness Visit [address] [place] [address] 01/05/2024 10:30 AM (Arrive by 10:15 AM) Júnior Coppola PA-C Cardiology [phone] 01/12/2024 8:30 AM (Arrive by 8:15 AM) Franco Mcgregor MD Cardiology [phone] 01/25/2024 1:00 PM Ines Castro, Community Health Pipe Organ Mechanic Apprentice; Yadira Omalley CRNP [facility] [phone] 02/15/2024 8:00 AM (Arrive by 7:45 AM) Casimiro Barraza MD Cardiology [phone] 05/15/2024 1:20 PM (Arrive by 1:05 PM) George Ferrer PA-C Otolaryngology [phone] Symone Sneed RN documented in this encounter Plan of Treatment Upcoming Encounters Date Type Department Care Team (Late st Contact Info) Description 11/22/2023 4:20 PM EDT Office Visit Family Practice [address] [place] [address] [place] [address] Benny Waite DO [address] [place] [address], [place] [address] 11/24/2023 11:00 AM EDT Home Visit Care Coordination and Integration [address] [facility] [place] [address] Mira Nascimento, Community Health Pipe Organ Mechanic Apprentice [address] [place] [address] 12/03/2023 8:30 AM EDT Pharmacy Family Practice [address] [place] [address] College, Pharmacist [address] [address] 12/03/2023 8:40 AM EDT Office Visit Family Practice [address] [place] [phone] Benny Waite, DO 293 [place] [address] 12/03/2023 3:30 PM EDT Office Visit Interventional Pain Center, [facility] 132 [facility] [place] [address] Luann Guerra PA-C 132 [facility] [place] [address] 12/13/2023 11:20 AM EDT Office Visit Family Practice [address] [place] [phone] Benny Waite, DO 293 [place] [address] 12/17/2023 8:30 AM EDT Home Visit [facility], [facility] [address] [place] [address] Myrtle Allen, RN [facility] [place] [address] 12/21/2023 11:00 AM EDT Nurse Only Ancillary 65 [address] [address] College, Nurse Annual Wellness Visit [address] [place] [address] 01/05/2024 10:30 AM EDT Office Visit Cardiology, [facility] 132 [facility] [place] [address] Júnior Coppola, PA-C [address] [place] [address] 01/12/2024 8:30 AM EDT Office Visit Cardiology, [facility] 132 [facility] [place] [address] Franco Mcgregor MD [address] [place] [address] 01/25/2024 1:00 PM EDT Telemedicine [facility] [address] [facility] [place] [address] Yadira Omalley CRNP [address] [place] [address] Ines Castro, Community Health Pipe Organ Mechanic Apprentice [address] [place] [address] 02/15/2024 8:00 AM EDT Office Visit Cardiology, [facility] 132 [facility] [place] [address] Casimiro Barraza MD [address] [place] [address] 05/15/2024 1:20 PM EST Office Visit Otolaryngology [facility] [address] [place] [address] George Ferrer PAJaleesa [address] [place] [address] Health Maintenance Due Date Last Done Comments COVID-19 Vaccine (2022-24 season) 2023 04/16/2023, 03/17/2022, 11/04/2021, Additional history [...] this encounter Medical Devices Implanted Type Area Bank Vault Custodian Device Identifier Shelf Expiration Date Model / Serial / Lot Device Watchman Flx 35mm - [id number] Implanted:Qty: 1 on 02/05/2022 by Diamond Teran IV, MD at [facility] [employer] : INTRV CARD [id number] 10/20/2024 [id number] 50 / / [id number] Cath Thermodilution 6fr - [id number] Implanted:Qty: 1 on 07/31/2022 by Franco Mcgregor MD at [facility] [employer] [id number] 04/30/2024 [id number] / / [id number] Mirtaclip G4 - [id number] Implanted:Qty: 1 on 11/16/2022 at [facility] [employer] 06/25/2023 [id number] / / [id number] Clip Delivery Sytem G4 Xtw - [id number] Implanted:Qty: 1 on 11/16/2022 at [facility] [employer] [id number] 08/10/2023 [id number] / / [id number] Clip Delivery Sytem G4 Xtw - [id number] Implanted:Qty: 1 on 11/16/2022 at [facility] [employer] [id number] 09/10/2023 [id number] / / [id number] documented as of this encounter Advance [...] and were consensually agreed upon. Care Teams Real Estate Broker Relationship Specialty Start Date End Date Benny Waite DO [address] [place] [address] PCP - General Internal Medicine 04/03/21 documented as of this encounter
--- OUTSIDE RECORDS SUMMARY | 2023-12-04 10:16 | External Medical Summary | Summary of Care ---
Author Name Unknown Organization [facility] Address [address] [facility] [place] [address] Phone [phone] Care Team Providers Care Associate Professor Of Biblical Studies Name Role Phone Benny Waite DO Primary Care Provider [phone] Reason for Visit * Reason Comments [facility]: Acute Encounter Details Date Type Department Care Team (Late st Contact Info) Description 11/19/2023 2:30 PM EDT Home Visit [facility], [facility] 132 [employer] [address] [place] [address] Myrtle Allen, RN [address] [place] [address] Allergies Active Allergy Reactions Criticality Noted Date Comments Adhesive Tape 02/04/2017 Duloxetine High 07/13/2023 Other Reaction(s): confusion Levofloxacin 09/01/2019 documented as of this encounter (statuses as of 11/19/2023) Medications Medication Sig Dispensed Refills Start Date [...] as of this encounter (statuses as of 11/19/2023) Active Problems Problem Noted Date Diagnosed Date Constipation 10/26/2023 Last Assessment & Plan: New issue. Reports he generally moves his bowels daily. No BM for a week. Some mild abdominal discomfort, he is able to pass gas. No nausea or vomiting. He took a dose of MiraLax and stool softener last night without results. 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 02/05/2022 Permanent atrial fibrillation 12/22/2021 Overview: Added automatically from request for surgery [id number] Last Assessment & Plan: S/p Watchman Current [...] the Comments) Remote Patient Monitoring Vendor: [facility] Device(s): Connected Scale Self - Management Plan [...] as of this encounter (statuses as of 11/19/2023) Resolved Problems Problem Noted Date Diagnosed Date [...] as of this encounter (statuses as of 11/19/2023) Immunizations Name Administration Dates Next Due COVID-19 mRNA, LNP-s, No Pre serve, 2-Dose Series (Moderna) 08/20/2020,07/17/2020 COVID-19 mRNA, LNP-s, No Pre serve, 2-Dose Series (Pfizer) 05/14/2021 COVID-19, LNP-s, No Preserve , Robbie-sucrose, Ages 12+ (Pfizer) 11/04/2021 COVID-19, MRNA-LNP, 23-24, P F, 30 MCG/0.3 mL, 12 YRS AND ABOVE, IM ([facility]) 04/16/2023 Covid-19, Mrna, Lnp-s, Pf, B ivalent, 30 Mcg, IM, 12 yrs and above ([employer]) 03/17/2022 Pneumococcal Conjugate Vacc, 13 Valent (Prevnar) [...] Sign Reading Time Taken Comments Blood Pressure 124/76 11/19/2023 12:52 PM EDT le ft arm sitting Pulse - - Temperature - - Respiratory [...] Progress Notes * Myrtle Allen RN - 11/19/2023 12:52 PM EDT [facility] [employer] Architect Visit Date: 11/19/2023 Time: 12:53 PM Name: Nikolas Silvestre : 1940 Current Concerns: Acute visit made to check bp at request of PCP Pt had spoke with PCP office this am and reported increased bp this am of 155/110 at 0630, 148/79 at 0830 - these were prior to taking morning meds He had also reported a severe headache upon awakening this am BP during visit 124/76 Denies HYDE this time - took Tramadol for pain with relief TT sent to PCP's nurse Marnie Bobo with update Physical Exam: BP 124/76 Comment: left arm sitting Pain 0 [facility]-10 Completed this Visit: No. No falls since last visit Treatment/Plan: 24 and 48 hr f/u visit to check bp manually Advised pt to only check bp once a day 2-3 hrs after taking bp meds in am Home Interventions Provided: Home Intervention: Other; bp check Patient Needs to Remember: Call [facility] at with any new or worsening health concerns or problems, red flag symptoms. Referrals Needed: Other none Follow Up: Is there cellular connectivity/connectivity in the home? Yes Does the patient have internet in the home? Yes Patient encouraged to call the intake phone number for all urgent but not emergent issues. Scheduled to follow up with patient in 24 hrs. Myrtle Allen RN 11/19/2023 12:53 PM documented in this encounter Plan of Treatment Upcoming Encounters Date Type Department Care Team (Late st Contact Info) Description 11/20/2023 4:00 PM EDT Home Visit Pat at [facility] 132 [place] [address] [facility], Nurse [place] [address] [place] [address] 11/21/2023 9:30 AM EDT Home Visit Pat at [facility] [address] [place] [address] [facility], Nurse [facility] 132 [facility] [place] [address] 11/22/2023 4:20 PM EDT Office Visit Family Practice 65 [facility] 293 [place] [address] Benny Waite, DO 293 [facility], [place] [address] 12/03/2023 8:30 AM EDT Pharmacy Family Practice 65 [facility] 293 [place] [address] College, Pharmacist [address] [place] [address] 12/03/2023 8:40 AM EDT Office Visit Family Practice 65 [facility] 293 [place] [address] Benny Waite, DO 293 [facility] [address] 12/03/2023 3:30 PM EDT Office Visit Interventional Pain Center, [facility] 132 [facility] [place] [address] Luann Guerra PA-C 132 [facility] [place] [address] 12/13/2023 11:20 AM EDT Office Visit Family Practice 65 [facility] 293 [facility], [place] [address] Benny Waite, DO 293 [facility], [place] [address] 12/17/2023 8:30 AM EDT [facility] Visit [facility], [facility] 132 [facility] [place] [address] Myrtle Allen RN [address] [place] [address] 12/21/2023 11:00 AM EDT Nurse Only Ancillary 65 [facility] 293 [place] [address] College, Nurse Annual Wellness Visit [address] [place] [address] 01/12/2024 8:30 AM EDT Office Visit Cardiology, [facility] 132 [facility] [place] [address] Franco Mcgregor MD [address] [place] [address] 01/25/2024 1:00 PM EDT Telemedicine [facility], [facility] 132 [facility] [place] [address] Yadira Omalley CRNP [facility] [address] Ines Castro, Community Health Science Intern [address] [place] [address] 02/15/2024 8:00 AM EDT Office Visit Cardiology, [facility] 132 [facility] [place] [address] Casimiro Barraza MD [address] [place] [address] 05/15/2024 1:20 PM EST Office Visit Otolaryngology [facility] [address] [place] [address] George Ferrer PA-C [address] [place] [address] Health Maintenance Due Date Last Done Comments [...] this encounter Medical Devices Implanted Type Area Drivers License Examiner Device Identifier Shelf Expiration Date Model / Serial / Lot Device Watchman Flx 35mm - [id number] Implanted:Qty: 1 on 02/05/2022 by Diamond Teran IV, [place] [facility] [employer] : INTRV CARD [id number] 10/20/2024 [id number] 50 / / [id number] Cath Thermodilution 6fr - [id number] Implanted:Qty: 1 on 07/31/2022 by Franco Mcgregor MD at [facility] [employer] [id number] 04/30/2024 [id number] / / [id number] Mirtaclip G4 - [id number] Implanted:Qty: 1 on 11/16/2022 at [facility] [employer] 06/25/2023 [id number] / / [id number] Clip Delivery Sytem G4 Xtw - [id number] Implanted:Qty: 1 on 11/16/2022 at [facility] [employer] [id number] 08/10/2023 [id number] / / [id number] Clip Delivery Sytem G4 Xtw - [id number] Implanted:Qty: 1 on 11/16/2022 at [facility] [employer] [id number] 09/10/2023 [id number] / / [id number] documented as of this encounter Advance [...] were consensually agreed upon. Care Teams Associate Professor Of Biblical Studies Relationship Specialty Start Date End Date Benny Waite DO [address] [place] [address] PCP - General Internal Medicine 04/03/21 documented as of this encounter
--- OUTSIDE RECORDS SUMMARY | 2023-12-04 10:16 | External Medical Summary | Summary of Care ---
Author Name Unknown Organization [facility] Address [address] [facility] [place] [address] Phone [phone] Care Team Providers Care Customer Development Representative Name Role Phone Benny Waite DO Primary Care Provider [phone] Reason for Visit * Reason Comments [facility]: Maintenance Encounter Details Date Type Department Care Team (Late st Contact Info) Description 11/18/2023 8:30 AM EDT Home Visit [facility], [facility] [address] [place] [address] [place] [address] Myrtle Allen, RN [address] [place] [address] Allergies Active Allergy Reactions Criticality Noted Date [...] night without results. 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 [facility] [facility] Visit Date: 11/18/2023 Time: 7:49 AM Name: [...] sometimes with bending over Requesting to see gravel inspector but does not until end of December [...] No change in living situation Denies falls [facility] Completed this Visit: No. Routine visit [...] wts, bp and pulse ox readings via [facility] Home Interventions Provided: Home Intervention: Other; eval Consulted PCP/Specialist Reinforced current Plan of Care, including self-management and medication regimen Patient's 'Red Flags': Worsening SOB Poor balance Feeling more depressed or down Patient Needs to Remember: Call [facility] at with any new or worsening health concerns or problems, red flag symptoms. Referrals Needed: Other none Follow Up: Is there cellular connectivity/connectivity in the home? Yes Does the patient have internet in the home? Yes Patient encouraged to call the intake phone number for all urgent but not emergent issues. Is the patient new to [facility] within the last 30 days? No, Assess appropriateness for upcoming telehealth visits. Cancel telehealth visits & schedule home visit with care inspector outside steam distribution(s)as indicated. Provider is in agreement with Plan of Care: Yes Scheduled to follow up with patient in one month. Myrtle Allen RN 11/18/2023 7:49 AM documented in this encounter Plan of Treatment Upcoming Encounters Date Type Department Care Team (Late st Contact Info) Description 11/22/2023 4:20 PM EDT Office Visit Family [facility] 65 [facility] 293 [place] [address] Benny Waite, DO 293 [place] [address] 12/03/2023 8:30 AM EDT Pharmacy Family Practice [address] [place] [address] College, Pharmacist [address] [place] [address] 12/03/2023 8:40 AM EDT Office Visit Family Practice [address] [place] [address] Benny Waite, DO 293 [facility], [place] [address] 12/03/2023 3:30 PM EDT Office Visit Interventional Pain Center, [facility] 132 [facility] Willie [facility] [place] [address] Luann Guerra PA-C 132 [facility] [address] 12/13/2023 11:20 AM EDT Office Visit Family Practice [address] [place] [address], [place] [address] Benny Waite, DO 293 [place] [address] 12/17/2023 8:30 AM EDT [facility] [address] [place] [address] Myrtle Allen, RN [facility] [place] [address] 12/21/2023 11:00 AM EDT Nurse Only Ancillary [address] [place] [address] College, Nurse Annual Wellness Visit [address] [place] [address] 01/12/2024 8:30 AM EDT Office Visit Cardiology, [facility] 132 [facility] [place] [address] Franco Mcgregor MD [address] [place] [address] 01/25/2024 1:00 PM EDT Telemedicine [facility], [facility] 132 [facility] [place] [address] Yadira Omalley CRNP 132 [place] [address] Ines Castro, Community Health Courtroom Deputy Or Calendar Clerk [address] [place] [address] 02/15/2024 8:00 AM EDT Office Visit Cardiology, [facility] 132 [facility] [place] [address] Casimiro Barraza MD 132 [place] [address] 05/15/2024 1:20 PM EST Office Visit Otolaryngology [facility] 132 [facility] [place] [address] George Ferrer PA-C 132 [place] [address] Health Maintenance Due Date Last Done Comments [...] encounter Medical Devices Implanted Type Area Manager Java Device Identifier Shelf Expiration Date Model / Serial / Lot Device Watchman Flx 35mm - [id number] Implanted:Qty: 1 on 02/05/2022 by Diamond Teran IV, [place] [facility] [employer] : INTRV CARD [id number] 10/20/2024 [id number] 50 / / [id number] Cath Thermodilution 6fr - [id number] Implanted:Qty: 1 on 07/31/2022 by Franco Mcgregor MD at [facility] [employer] [id number] 04/30/2024 [id number] / / [id number] Mirtaclip G4 - [id number] Implanted:Qty: 1 on 11/16/2022 at [facility] [employer] 06/25/2023 [id number] / / [id number] Clip Delivery Sytem G4 Xtw - [id number] Implanted:Qty: 1 on 11/16/2022 at [facility] [employer] [id number] 08/10/2023 [id number] / / [id number] Clip Delivery Sytem G4 Xtw - [id number] Implanted:Qty: 1 on 11/16/2022 at [facility] [employer] [id number] 09/10/2023 [id number] / / [id number] documented as of this encounter Advance [...] and were consensually agreed upon. Care Teams Customer Development Representative Relationship Specialty Start Date End Date Benny Waite DO 293 [place] [address] PCP - General Internal Medicine 04/03/21 documented as of this encounter
--- OUTSIDE RECORDS SUMMARY | 2023-12-04 10:16 | External Medical Summary | Summary of Care ---
Author Name Unknown Organization [facility] Address [address] [facility] [place] [address] Phone [phone] Care Team Providers Care Marketing Area Manager Name Role Phone Benny Waite DO Primary Care Provider [phone] Reason for Visit * Reason Onset Date Comments [facility]: Maintenance 11/18/2023 Encounter Details Date Type Department Care Team (Late st Contact Info) Description 11/18/2023 Telephone [facility], [facility] [address] [place] [address] Myrtle Allen, RN [address] [place] [address] [facility]: Maintenance Allergies Active Allergy [...] results. 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 [facility] was in [place] and checked his BP and it was [...] but agreeable. Sent message to Myrtle at [email or web address] to see how frequently they could go [...] face and to shoulder area. Has home [facility] bp cuff and checked today and seems accurate. [facility] cuff reading was 105/70 and manual was 100/60 sitting and 108/68 standing. He is requesting f/u with Dr. Barraza or Júnior Copploa this month if possible. He sees Dr. [...] PM EDT Home Visit [facility], [facility] 132 [facility] [place] [address] [facility], Nurse [address] [place] [address] 11/21/2023 9:30 AM EDT Home Visit [facility], [facility] 132 [facility] [place] [address] [facility], [facility] 132 [facility] [place]ANE [place] [address] 11/22/2023 4:20 PM EDT Office Visit Family Practice 65 [facility] 293 [place] [place] [phone] Benny Waite, DO 293 [place] [address] 12/03/2023 8:30 AM EDT Pharmacy Family Practice 65 [facility] 293 [place] [place] [phone] College, Pharmacist [address] [place] [address] 12/03/2023 8:40 AM EDT Office Visit Family Practice 65 [facility] 293 [facility] [place] [address] Benny Waite, DO 293 [place] [address] 12/03/2023 3:30 PM EDT Office Visit Interventional Pain Center, [facility] 132 [facility] [place] [address] Luann Guerra PA-C 132 [facility] [place] [address] 12/13/2023 11:20 AM EDT Office Visit Family Practice 65 [facility] 293 [facility] [place] [address] Benny Waite, DO 293 [place] [address] 12/17/2023 8:30 AM EDT Home Visit [facility], [facility] 132 [facility] [place] [address] Myrtle Allen, RN 132 [facility] [place] [address] 12/21/2023 11:00 AM EDT Nurse Only Ancillary 65 [facility] 293 [place] [address] College, Nurse Annual Wellness Visit [address] [place] [address] 01/12/2024 8:30 AM EDT Office Visit Cardiology, [facility] 132 [facility] [place] [address] Franco Mcgregor MD [address] [place] [address] 01/25/2024 1:00 PM EDT Telemedicine [facility], [facility] 132 [facility] [place] [address] Yadira Omalley CRNP 132 [facility] [place] [address] Ines Castro, Community Health Independent Insurance Adjuster [address] [place] [address] 02/15/2024 8:00 AM EDT Office Visit Cardiology, [facility] 132 [facility] [place] [address] Casimiro Barraza MD 132 [facility] [place] [address] 05/15/2024 1:20 PM EST Office Visit Otolaryngology [facility] [address] [place] [address] George Ferrer PA-C [address] [place] [address] Health Maintenance Due Date Last Done Comments COVID-19 Vaccine (7 - 2023-24 season) 2023 04/16/2023, 03/17/2022, 11/04/2021, Additional history [...] this encounter Medical Devices Implanted Type Area Director Of Assisted Living Device Identifier Shelf Expiration Date Model / Serial / Lot Device Watchman Flx 35mm - [id number] Implanted:Qty: 1 on 02/05/2022 by Diamond Teran IV, MD at [facility] [employer] : INTRV CARD [id number] 10/20/2024 [id number] / / [id number] Cath Thermodilution 6fr - [id number] Implanted:Qty: 1 on 07/31/2022 by Franco Mcgregor MD at [facility] [employer] [id number] 04/30/2024 [id number] / / [id number] Mirtaclip G4 - [id number] Implanted:Qty: 1 on 11/16/2022 at [facility] [employer] 06/25/2023 [id number] / / [id number] Clip Delivery Sytem G4 Xtw - [id number] Implanted:Qty: 1 on 11/16/2022 at [facility] [employer] [id number] 08/10/2023 [id number] / / [id number] Clip Delivery Sytem G4 Xtw - [id number] Implanted:Qty: 1 on 11/16/2022 at [facility] [employer] [id number] 09/10/2023 [id number] / / [id number] documented as of this encounter Advance [...] and were consensually agreed upon. Care Teams Marketing Area Manager Relationship Specialty Start Date End Date Benny Waite DO [address] [place] [address] PCP - General Internal Medicine 04/03/21 documented as of this encounter
--- OUTSIDE RECORDS SUMMARY | 2023-12-04 10:16 | External Medical Summary | Summary of Care ---
Author Name Unknown Organization [facility] Address [address] [place] [place] [place] [address] Phone [phone] Care Team Providers Care Ear Flap Binder Name Role Phone Benny Waite DO Primary Care Provider [phone] Reason for Visit * Reason Comments Follow Up Encounter Details Date Type Department Care Team (Late st Contact Info) Description 11/22/2023 4:20 PM EDT Office Visit Family Practice 65 [facility] [place] 293 [place] [address] Benny Waite DO 293 [place] [address] Current 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 ([facility]; CHF (congestive heart failure), NYHA class I, chronic, diastolic ([facility]); HTN, goal below 150/90; BPH with obstruction/lower urinary tract symptoms; DEX (obstructive sleep apnea); Permanent atrial fibrillation ([facility]); Presence of Watchman left atrial appendage closure device; S/P MVR (mitral valve repair); History of CVA (cerebrovascular accident); Constipation, unspecified constipation type; Sacroiliitis, not elsewhere classified ([facility]); Severe tricuspid regurgitation; Atherosclerosis of [place] coronary artery of [place] heart without angina pectoris; Gout, arthropathy Allergies [...] night without results. He will go to [facility] for abdominal x-ray today to rule [...] MVR (mitral valve repair) 11/16/2022 Atherosclerosis of [place] co 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 pectoris 08/11/2022 Severe tricuspid regurgitation 08/11/2022 Gout, arthropathy 07/20/2022 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 02/05/2022 Permanent atrial fibrillation 12/22/2021 Overview: Added automatically from request for surgery [id number] Last Assessment & Plan: S/p Watchman Current [...] Remote Patient Monitoring Vendor: [facility] Device(s): Connected Scale Self - [...] encounter Progress Notes * Benny Waite, - 11/22/2023 8:09 PM EDT SUBJECTIVE: Nikolas [...] heart failure), NYHA class I, chronic, diastolic ([facility]) Encounter for long-term (current) use of medications DEX (obstructive sleep apnea) Moderate to severe mitral regurgitation Lumbar degenerative disc disease Current 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 ([facility]) Permanent atrial fibrillation ([facility]) Presence of Watchman left atrial appendage closure device Gout, arthropathy Atherosclerosis of [place] co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 pectoris Severe tricuspid regurgitation S/P MVR (mitral valve repair) Sacroiliitis, not elsewhere classified ([facility]) Visual field loss, post-stroke Rectal bleeding History [...] Medical History: Diagnosis Date Aortic root enlargement ([facility]) 10/01/2020 BPH with obstruction/lower urinary tract symptoms CHF (congestive heart failure), NYHA class I, chronic, diastolic ([facility]) 05/02/2019 Chronic atrial fibrillation ([facility]) 01/18/2018 Current 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 ([facility]) 07/09/2021 DDD (degenerative disc disease), lumbar Depression Gout, arthropathy 07/20/2022 History of CVA (cerebrovascular accident) 09/28/2023 Nonrheumatic mitral valve regurgitation 04/03/2021 Renal calculus Severe obesity with body mass index (BMI) of 35.0 to 39.9 with serious comorbidity ([facility]) 04/24/2022 Sleep apnea, obstructive Past Surgical History: Procedure Laterality Date CATARACT SURGERY,COMPLEX COLONOSCOPY, DIAGNOSTIC (RECTUM) 02/13/2021 diverticulosis, fair prep / [facility] COLORECTAL CANCER SCREEN; NOT AT RISK 04/04/2008 Diverticulosis CORONARY ANGIOGRAPHY W/RIGHT+LEFT CATH Bilateral 07/31/2022 CORONARY ANGIOGRAPHY W/RIGHT+LEFT CATH performed by Franco Mcgregor MD at [facility] CYSTOSCOPY 10/22/2011 CYSTOURETHROSCOPY performed by LIBERTAD FITZPATRICK at OR [facility] CYSTOSCOPY 09/13/2012 CYSTOURETHROSCOPY performed by Eliseo Menard MD at OR [facility] INJECT DX/THER SUBSTANCE INTERLAMINAR LUMBAR/SACRAL W IMAGE GUIDE 06/23/2021 INJECTION SPINE LUMBAR OR SACRAL performed by Anderson Easton DO at OR [facility] OTHER 02/13/1980 Dr. Zhang DEX surgery OTHER left hand reconstruction PERC CLOSURE TRANSCATH LEFT ATRIAL APPENDAGE W/ENDOCARDIAL IMPLANT N/A 02/05/2022 PERCUTANEOUS CLOSURE LEFT ATRIAL APPENDAGE IMPLANT performed by Diamond Teran IV, MD at [facility] PSA 06/14/2004 3.42 PSA 06/14/2005 3.72 PSA 02/13/2008 5.17 REMOVAL OF PROSTATE (TURP) 10/22/2011 TRANSURETHRAL RESECTION PROSTATE ELECTROSURGICAL performed by LIBERTAD FITZPATRICK at [facility] REMOVAL OF PROSTATE (TURP) 09/13/2012 TRANSURETHRAL RESECTION PROSTATE ELECTROSURGICAL performed by Eliseo Menard MD at [facility] REMOVE CATARACT, INSERT LENS PROSTH OU REMOVE TONSILS & ADENOIDS, UNDER 12 SACROILIAC JOINT INJECT W/GUIDANCE 11/11/2022 INJECTION SACROILIAC JOINT performed by Anderson Easton DO at [facility] SACROILIAC JOINT INJECT W/GUIDANCE 02/10/2023 INJECTION SACROILIAC JOINT performed by Anderson Easton DO at OR [facility] SACROILIAC JOINT INJECT W/GUIDANCE 05/26/2023 INJECTION SACROILIAC JOINT performed by Anderson Easton DO at [facility] TRANSCATH REPAIR MITRAL VALVE, INITIAL Bilateral 11/16/2022 TRANSCATHETER MITRAL VALVE REPAIR performed by Franco Mcgregor MD at [facility] VITRECTOMY W/ REMOVE [...] heart failure), NYHA class I, chronic, diastolic ([facility]) - Increase Furosemide 40 MG Oral Tablet [...] classified (HCC) Severe tricuspid regurgitation Atherosclerosis of [place] coronary artery of [place] heart without angina pectoris Continue ASA, and [...] Visit Care Coordination and Integration [address] [place] [address] Mira Nascimento, Community Health Tv Host [address] [place] [address] 11/29/2023 1:40 PM EDT Office Visit Family Practice [address] [place] [address], [place] [phone] Benny Waite, 293 [place] [address] 12/03/2023 8:30 AM EDT Pharmacy Family Practice 65 [facility] 293 [facility] [place] [address] College, Pharmacist [address] [place] [address] 12/03/2023 8:40 AM EDT Office Visit Family Practice 65 [facility] 293 [facility] [place] [address] Benny Waite, 293 [facility] [address] 12/03/2023 3:30 PM EDT Office Visit Interventional Pain Center, [facility] 132 [facility] [place] [address] Luann Guerra PA-C 132 [facility] [place] [address] 12/13/2023 11:20 AM EDT Office Visit Family Practice 65 [facility] 293 [place] [address] Benny Waite, 293 [facility] [place] [address] 12/17/2023 8:30 AM EDT [facility] Visit [facility], [facility] 132 [facility] [place] [address] Myrtle Allen RN 132 [facility] [place] [address] 12/21/2023 11:00 AM EDT Nurse Only Ancillary [address] [place] [address] College, Nurse Annual Wellness Visit [address] [address] 01/05/2024 10:30 AM EDT Office Visit Cardiology, [facility] 132 [facility] [place] [address] Júnior Coppola PA-C 132 [facility] [place] [address] 01/12/2024 8:30 AM EDT Office Visit Cardiology, [facility] 132 [facility] [place] [address] Franco Mcgregor MD 100 [address] [facility], [place] [address] 01/25/2024 1:00 PM EDT [facility], [facility] 132 [facility] [place] [address] Yadira Omalley CRNP 132 [facility] [place] [address] Ines Castro, Community Health Tv Host [address] [place] [address] 02/15/2024 8:00 AM EDT Office Visit Cardiology, [facility] 132 [facility] [place] [address] Casimiro Barraza MD 132 [facility] [place] [address] 05/15/2024 1:20 PM EST Office Visit Otolaryngology [facility] 132 [facility] [place] [address] George Ferrer PA-C 132 [facility] [address] Scheduled Orders Name Type Priority Associated Diagnoses Orde r Schedule PULSE OX W/ REST/EXERCISE, MULTIPLE (OP) Procedures Routine CHF (congestive heart failure), NYHA class I, chronic, diastolic (HCC) Ordered: 11/22/2023 Health Maintenance Due Date Last Done Comments [...] this encounter Medical Devices Implanted Type Area Anatomy And Physiology Instructor Device Identifier Shelf Expiration Date Model / Serial / Lot Device Watchman Flx 35mm - [id number] Implanted:Qty: 1 on 02/05/2022 by Diamond Teran IV, MD at [facility] [employer] : INTRV CARD [id number] 10/20/2024 [id number] 50 / / [id number] Cath Thermodilution 6fr - [id number] Implanted:Qty: 1 on 07/31/2022 by Franco Mcgregor MD at [facility] [employer] [id number] 04/30/2024 [id number] / / [id number] Mirtaclip G4 - [id number] Implanted:Qty: 1 on 11/16/2022 at [facility] [employer] 06/25/2023 [id number] / / [id number] Clip Delivery Sytem G4 Xtw - [id number] Implanted:Qty: 1 on 11/16/2022 at [facility] [employer] [id number] 08/10/2023 [id number] TW / / [id number] Clip Delivery Sytem G4 Xtw - [id number] Implanted:Qty: 1 on 11/16/2022 at [facility] [employer] [id number] 09/10/2023 [id number] / / [id number] documented as of this encounter Visit Diagnoses Diagnosis Current moderate [...] regurgitation Diseases of tricuspid valve Atherosclerosis of [place] coronary artery of [place] heart without angina pectoris Gout, arthropathy Gouty [...] and were consensually agreed upon. Care Teams Ear Flap Binder Relationship Specialty Start Date End Date Benny Waite DO 293 [facility] [place] [address] PCP - General Internal Medicine 04/03/21 documented as of this encounter
--- OUTSIDE RECORDS SUMMARY | 2023-12-04 10:17 | External Medical Summary | Summary of Care ---
Author Name Unknown Organization [facility] Address [address] [facility] [place] [address] Phone [phone] Care Team Providers Care Senior Oracle D[employer] Name Role Phone Benny Waite DO Primary Care Provider [phone] Reason for Visit * Reason Onset Date Comments Med Request 11/15/2023 Encounter Details Date Type Department Care Team (Late st Contact Info) Description 11/15/2023 Telephone Family Practice 65 [facility] [address] [place] [address] Benny Waite DO 293 [place] [address] Med Request Allergies Active Allergy Reactions Criticality Noted Date Comments Adhesive Tape 02/04/2017 Duloxetine High 07/13/2023 Other Reaction(s): confusion Levofloxacin 09/01/2019 documented as of this encounter (statuses as of 11/15/2023) Medications Medication Sig Dispensed Refills Start Date [...] for Dizziness. 60 Tablet 3 11/15/2023 Active Meclizine HCl 12.5 MG Oral Tablet (Antivert) Take 1 Tablet by mouth 2 times a day as needed for Dizziness. 07/23/2023 11/15/19 24 Discontinu ed(Refill) documented as of this encounter (statuses as of 11/15/2023) Active Problems Problem Noted Date Diagnosed Date Constipation 10/26/2023 Last Assessment & Plan: New issue. Reports he generally moves his bowels daily. No BM for a week. Some mild abdominal discomfort, he is able to pass gas. No nausea or vomiting. He took a dose of MiraLax and stool softener last night without results. He will go to [facility] for abdominal x-ray today to rule out [...] MVR (mitral valve repair) 11/16/2022 Atherosclerosis of [place] co 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 pectoris 08/11/2022 Severe tricuspid regurgitation 08/11/2022 Gout, arthropathy 07/20/2022 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 02/05/2022 Permanent atrial fibrillation 12/22/2021 Overview: Added automatically from request for surgery [id number] Last Assessment & Plan: S/p Watchman Current [...] as of this encounter (statuses as of 11/15/2023) Resolved Problems Problem Noted Date Diagnosed Date [...] as of this encounter (statuses as of 11/15/2023) Immunizations Name Administration Dates Next Due COVID-19 mRNA, LNP-s, No Pre serve, 2-Dose Series (Moderna) 08/20/2020,07/17/2020 COVID-19 mRNA, LNP-s, No Pre serve, 2-Dose Series (Pfizer) 05/14/2021 COVID-19, LNP-s, No Preserve , Robbie-sucrose, Ages 12+ (Pfizer) 11/04/2021 COVID-19, MRNA-LNP, 23-24, P F, 30 MCG/0.3 mL, 12 YRS AND ABOVE, IM ([facility] 04/16/2023 Covid-19, Mrna, Lnp-s, Pf, B ivalent, [...] Telephone Encounter - Marnie Baker LPN - 11/15/2023 1:12 PM EDT Pended. * Telephone Encounter - Aleksandra Mcdonald CPhT - 11/15/2023 12:42 PM EDT Patient requesting refills for Meclizine HCl 12.5 MG Oral Tablet (Antivert) . Upon chart review, medication is listed as discontinued, with discontinuation reason as "patient preference". Please advise if you wish to continue this therapy for the patient. Thank you, Aleksandra Mcdonald [place] [facility] ([facility]) (Formerly Telepharmacy) 11/15/2023,12:44 PM documented in this encounter Plan of Treatment Upcoming Encounters Date Type Department Care Team (Late st Contact Info) Description 11/18/2023 8:30 AM EDT Home Visit [facility] 132 [place] [address] Myrtle Allen RN 132 [place] [address] 12/03/2023 8:40 AM EDT Office Visit Family Practice [address] [place] [address] 293 [place] [address] Benny Waite, 293 [facility], [place] [address] 12/03/2023 3:30 PM EDT Office Visit Interventional Pain Center, Health system 132 [place] [address] Luann Guerra PA-C 132 [place] [address] 12/13/2023 11:20 AM EDT Office Visit Family Practice 65 [facility] 293 [place] [address] Benny Waite, 293 [facility] [place] [address] 12/21/2023 11:00 AM EDT Nurse Only Ancillary 65 [facility] 293 [place] [address] College, Nurse Annual Wellness Visit [address] [place] [address] 01/12/2024 8:30 AM EDT Office Visit Cardiology, Health system 132 [facility] [place] [address] Franco Mcgregor MD [address] [place] [address] 01/25/2024 1:00 PM EDT [facility]icine [facility] [place], [facility] 132 [facility] [place] [address] Yadira Omalley CRNP 132 [place] [address] Ines Castro, Community Health Refuse Laborer [address] [place] [address] 02/15/2024 8:00 AM EDT Office Visit Cardiology, Health system 132 [facility] [place] [address] Casimiro Barraza MD 132 [place] [address] 05/15/2024 1:20 PM EST Office Visit Otolaryngology Health system 132 [facility] [place] [address] George Ferrer PA-C [address] [place] [address] Health Maintenance Due Date Last Done Comments [...] this encounter Medical Devices Implanted Type Area General Maintenance Mechanic Device Identifier Shelf Expiration Date Model / Serial / Lot Device Watchman Flx 35mm - [id number] Implanted:Qty: 1 on 02/05/2022 by Diamond Teran IV, MD at [facility] [employer] : INTRV CARD [id number] 10/20/2024 [id number] 50 / / [id number] Cath Thermodilution 6fr - [id number] Implanted:Qty: 1 on 07/31/2022 by Franco Mcgregor MD at [facility] [employer] [id number] 04/30/2024 [id number] / / [id number] Mirtaclip G4 - [id number] Implanted:Qty: 1 on 11/16/2022 at [facility] [employer] 06/25/2023 [id number] / / [id number] Clip Delivery Sytem G4 Xtw - [id number] Implanted:Qty: 1 on 11/16/2022 at [facility] [employer] [id number] 08/10/2023 [id number] TW / / [id number] Clip Delivery Sytem G4 Xtw - [id number] Implanted:Qty: 1 on 11/16/2022 at [facility] [employer] [id number] 09/10/2023 [id number] / / [id number] documented as of this encounter Advance [...] and were consensually agreed upon. Care Teams Senior Oracle Dba Relationship Specialty Start Date End Date Benny Waite DO [address] [place] [address] PCP - General Internal Medicine 04/03/21 documented as of this encounter
--- OUTSIDE RECORDS SUMMARY | 2023-12-04 10:17 | External Medical Summary | Summary of Care ---
Author Name Unknown Organization [facility] Address [address] [facility] [place] [address] Phone [phone] Care Team Providers Care Film Writer Name Role Phone Benny Waite DO Primary Care Provider [phone] Reason for Visit * Reason Onset Date Comments [facility]: Maintenance 11/12/2023 Encounter Details Date Type Department Care Team (Late st Contact Info) Description 11/12/2023 Telephone [facility], [facility] [address] [facility] [place] [address] [facility], Nurse [facility] [address] [facility] J[place] ABBASI [id number] [facility]: Maintenance Allergies Active Allergy Reactions Criticality Noted Date Comments Adhesive Tape 02/04/2017 Duloxetine High 07/13/2023 Other Reaction(s): confusion Levofloxacin 09/01/2019 documented as of this encounter (statuses as of 11/12/2023) Medications Medication Sig Dispensed Refills Start Date [...] a day as needed for Dizziness. 07/23/2023 Active Gabapentin 300 MG Oral Capsule (Neurontin)Indicat [...] needed for Nausea. 30 Tablet 11/09/2023 Active documented as of this encounter (statuses as of 11/12/2023) Active Problems Problem Noted Date Diagnosed Date Constipation 10/26/2023 Last Assessment & Plan: New issue. Reports he generally moves his bowels daily. No BM for a week. Some mild abdominal discomfort, he is able to pass gas. No nausea or vomiting. He took a dose of MiraLax and stool softener last night without results. He will go to [facility] for abdominal x-ray today to rule [...] MVR (mitral valve repair) 11/16/2022 Atherosclerosis of [place] co 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 pectoris 08/11/2022 Severe tricuspid regurgitation 08/11/2022 Gout, arthropathy 07/20/2022 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 02/05/2022 Permanent atrial fibrillation 12/22/2021 Overview: Added automatically from request for surgery [id number] Last Assessment & Plan: S/p Watchman Current [...] Remote Patient Monitoring Vendor: [facility] Device(s): Connected Scale Self - Management Plan [...] as of this encounter (statuses as of 11/12/2023) Resolved Problems Problem Noted Date Diagnosed Date [...] as of this encounter (statuses as of 11/12/2023) Immunizations Name Administration Dates Next Due COVID-19 mRNA, LNP-s, No Pre serve, 2-Dose Series (Moderna) 08/20/2020,07/17/2020 COVID-19 mRNA, LNP-s, No Pre serve, 2-Dose Series (Pfizer) 05/14/2021 COVID-19, LNP-s, No Preserve , Robbie-sucrose, Ages 12+ (Pfizer) 11/04/2021 COVID-19, MRNA-LNP, 23-24, P F, 30 MCG/0.3 mL, 12 YRS AND ABOVE, IM ([facility]) 04/16/2023 Covid-19, Mrna, Lnp-s, Pf, B ivalent, 30 Mcg, IM, 12 yrs and above (Choosly) 03/17/2022 Pneumococcal Conjugate Vacc, 13 Valent (Prevnar) [...] Telephone Encounter - Irlanda Real LPN - 11/12/2023 12:18 PM EDT [facility] Remote Patient Monitoring Able to contact patient: Trigger type: Abnormal reading(s): AMC (Advanced Monitored Caregiving): Pulse Oximeter: Oxygen saturation per oximeter: 88 measured while on room air Trigger priority per AMC: high Symptom review: denies new/worsening symptoms Diet Reviewed: N/A Fluid Intake Reviewed: N/A Self-Management Plan Reviewed: Red Flags: none listed Risk assignment recommendation: Moderate risk findings (check [...] symptoms High risk findings (check as applicable): [] High trigger priority on AMC [] Confirmed tympanic equivalent temperature greater than or equal to 102 F on hour post administration of [...] 90 WITH symptoms Additional risk selection justification: Spoke with pt denies increased SOB. On recheck Sp02 92%. Encouraged to call [facility] with any concerns Overall risk and identified plan: High risk: Route to RNCM (Registered Nurse Catch Basin Cleaner) and Advance Practitioner * Telephone Encounter - Irlanda Real LPN - 11/12/2023 11:35 AM EDT Images from the original note were not included. [facility] Remote Patient Monitoring Unable to contact patient: Trigger type: Abnormal reading(s): Device(s) Triggered: AMC (Advanced Monitored Caregiving): Pulse Oximeter: Oxygen saturation per oximeter: 88 Called pt to F/U on Sp02 reading no answer LMOM to return call documented in this encounter Plan of Treatment Upcoming Encounters Date Type Department Care Team (Late st Contact Info) Description 11/18/2023 8:30 AM EDT [facility] Visit [facility], [facility] [address] [place] [address] Myrtle Allen RN [facility] [place] [address] 12/03/2023 8:40 AM EDT Office Visit Family Practice [address] [place] [address] 293 [facility] [place] [place] [address] Benny Waite, 293 [place] [address] 12/03/2023 3:30 PM EDT Office Visit Interventional Pain Center, [facility] [address] [place] [address] Luann Guerra PA-C 132 [facility] [place] [address] 12/13/2023 11:20 AM EDT Office Visit Family Practice 65 [facility] 293 [facility] [place] [address] Benny Waite, 293 [facility], [place] [address] 12/21/2023 11:00 AM EDT Nurse Only Ancillary [facility] 293 [facility] [address] [place], Nurse Annual Wellness Visit [address] [facility] 293 [place] [address] 01/12/2024 8:30 AM EDT Office Visit Cardiology, [facility] [place] [address] Franco Mcgregor MD [address] [place] [address] 01/25/2024 1:00 PM EDT Telemedicine [facility], [facility] 132 [place] [address] Yadira Omalley CRNP 132 [place] [address] Ines Castro, Community Health Freight Broker Agent [address] [place], [place] [id number] 02/15/2024 8:00 AM EDT Office Visit Cardiology, [facility] [address] Casimiro Barraza MD 132 [facility] [address] 05/15/2024 1:20 PM EST Office Visit Otolaryngology [facility] 132 [facility] [place] [address] George Ferrer PA-C 132 [facility] [address] Health Maintenance Due Date Last Done Comments [...] this encounter Medical Devices Implanted Type Area Corrections Counselor Device Identifier Shelf Expiration Date Model / Serial / Lot Device Watchman Flx 35mm - [id number] Implanted:Qty: 1 on 02/05/2022 by Diamond Teran IV, MD at [facility] [employer] : INTRV CARD [id number] 10/20/2024 [id number] / / [id number] Cath Thermodilution 6fr - [id number] Implanted:Qty: 1 on 07/31/2022 by Franco Mcgregor MD at [facility] [employer]ACINTO [id number] 04/30/2024 [id number] / / [id number] Mirtaclip G4 - [id number] Implanted:Qty: 1 on 11/16/2022 at [facility] CASEY [employer] 06/25/2023 [id number] / / [id number] Clip Delivery Sytem G4 Xtw - [id number] Implanted:Qty: 1 on 11/16/2022 at [facility] [employer] [id number] 08/10/2023 [id number] / / [id number] Clip Delivery Sytem G4 Xtw - [id number] Implanted:Qty: 1 on 11/16/2022 at [facility] [employer] [id number] 09/10/2023 [id number] / / [id number] documented as of this encounter Advance [...] and were consensually agreed upon. Care Teams Film Writer Relationship Specialty Start Date End Date Benny Waite DO 293 [place] [address] PCP - General Internal Medicine 04/03/21 documented as of this encounter
--- OUTSIDE RECORDS SUMMARY | 2023-12-04 10:17 | External Medical Summary | Summary of Care ---
Author Name Unknown Organization [facility] Address [address] [place] [place] [address] Phone [phone] Care Team Providers Care Saas Architect Name Role Phone Benny Waite DO Primary Care Provider [phone] Reason for Visit * Reason Onset Date Comments Appointment 11/12/2023 No show Encounter Details Date Type Department Care Team (Late st Contact Info) Description 11/12/2023 Telephone Family Practice 65 [facility] [place] 293 [place] [address] Benny Waite DO 293 [place] [address] Appointment (No show) Allergies Active Allergy Reactions Criticality Noted Date [...] night without results. 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 * Telephone Encounter - Marnie Baker LPN - 11/12/2023 10:25 AM EDT Called patient, he overslept. Patient is scheduled for follow up 12/02. Reviewed appt date and time. States he is feeling a bit better today as far as his nausea. Dizziness continues. Thank you * Telephone Encounter - Macy Carbajal OSA - 11/12/2023 9:54 AM EDT Patient no showed for appointment Wants marnie to call him documented in this encounter Plan of Treatment Upcoming Encounters Date Type Department Care Team (Late st Contact Info) Description 11/18/2023 8:30 AM EDT Home Visit [facility] 132 [place] [address] Myrtle Allen RN [address] [place] [address] 12/03/2023 8:40 AM EDT Office Visit Family [address] [address] Benny Waite DO 293 [place] [address] 12/03/2023 3:30 PM EDT Office Visit Interventional Pain Center, [facility] [address] [place] [address] Luann Guerra PA-C [address] [place] [address] 12/13/2023 11:20 AM EDT Office Visit Family [address] [place] [address] Benny Waite, 293 [place] [address] 12/21/2023 11:00 AM EDT Nurse Only Ancillary [facility] 293 [place] [address] College, Nurse Annual Wellness Visit [address] [place] [address] 01/12/2024 8:30 AM EDT Office Visit Cardiology, [facility] 132 [facility] [place] [address] Franco Mcgregor MD [address] [place] [address] 01/25/2024 1:00 PM EDT [facility]icine [facility] [place], [facility] 132 [facility] [place] [address] Yadira Omalley CRNP 132 [facility] [place] [address] Ines Castro, Community Health Information Security Consultant [address] [place] [address] 02/15/2024 8:00 AM EDT Office Visit Cardiology, [facility] 132 [facility] [place] [address] Casimiro Barraza MD 132 [facility] [place] [address] 05/15/2024 1:20 PM EST Office Visit Otolaryngology [facility] 132 [facility] [place] [address] George Ferrer PA-C 132 [facility] [place] [address] Health Maintenance Due Date Last Done Comments [...] this encounter Medical Devices Implanted Type Area Tank Tester Device Identifier Shelf Expiration Date Model / Serial / Lot Device Watchman Flx 35mm - [id number] Implanted:Qty: 1 on 02/05/2022 by Diamond Teran IV, [place] [facility] [place] [employer] : INTRV CARD [id number] 10/20/2024 [id number] / / [id number] Cath Thermodilution 6fr - [id number] Implanted:Qty: 1 on 07/31/2022 by Franco Mcgregor [place] [facility] [place] [employer] [id number] 04/30/2024 [id number] / / [id number] Mirtaclip G4 - [id number] Implanted:Qty: 1 on 11/16/2022 at [facility] [place] CASEY [employer] 06/25/2023 [id number] / / [id number] Clip Delivery Sytem G4 Xtw - [id number] Implanted:Qty: 1 on 11/16/2022 [place] [facility] [place] [employer] [id number] 08/10/2023 [id number] TW / / [id number] Clip Delivery Sytem G4 Xtw - [id number] Implanted:Qty: 1 on 11/16/2022 at [facility] [place] [employer] [id number] 09/10/2023 [id number] / / [id number] documented as of this encounter Advance [...] and were consensually agreed upon. Care Teams Saas Architect Relationship Specialty Start Date End Date Benny Waite DO [address] [place] [address] PCP - General Internal Medicine 04/03/21 documented as of this encounter
--- OUTSIDE RECORDS SUMMARY | 2023-12-04 10:17 | External Medical Summary | Summary of Care ---
Author Name Unknown Organization [facility] Address [address] [facility] [place] [address] Phone [phone] Care Team Providers Care Financial Aid Counselor Name Role Phone Benny Waite DO Primary Care Provider [phone] Reason for Visit * Reason Onset Date Comments [facility]: Maintenance 11/16/2023 Encounter Details Date Type Department Care Team (Late st Contact Info) Description 11/16/2023 Telephone [facility], [place] [address] [place] [address] [facility], Nurse [facility] [address] [place] [address] [facility]: Maintenance Allergies Active Allergy Reactions Criticality Noted Date Comments Adhesive Tape 02/04/2017 Duloxetine High 07/13/2023 Other Reaction(s): confusion Levofloxacin 09/01/2019 documented as of this encounter (statuses as of 11/16/2023) Medications Medication Sig Dispensed Refills Start Date [...] as of this encounter (statuses as of 11/16/2023) Active Problems Problem Noted Date Diagnosed Date Constipation 10/26/2023 Last Assessment & Plan: New issue. Reports he generally moves his bowels daily. No BM for a week. Some mild abdominal discomfort, he is able to pass gas. No nausea or vomiting. He took a dose of MiraLax and stool softener last night without results. He will go to [facility] for abdominal x-ray today to rule [...] [facility] 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 Not on statin--LDL 89. Will defer to PCP to add statin--goal <70 BP at goal today. 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 02/05/2022 Permanent atrial fibrillation 12/22/2021 Overview: Added automatically from request for surgery [id number] Last Assessment & Plan: S/p Watchman Current [...] in the Comments) Remote Patient Monitoring Vendor: [facility] Device(s): Connected Scale Self - Management [...] as of this encounter (statuses as of 11/16/2023) Resolved Problems Problem Noted Date Diagnosed Date [...] as of this encounter (statuses as of 11/16/2023) Immunizations Name Administration Dates Next Due COVID-19 mRNA, LNP-s, No Pre serve, 2-Dose Series (Moderna) 08/20/2020,07/17/2020 COVID-19 mRNA, LNP-s, No Pre serve, 2-Dose Series (Pfizer) 05/14/2021 COVID-19, LNP-s, No Preserve , Robbie-sucrose, Ages 12+ (Elite [employer]) 11/04/2021 COVID-19, MRNA-LNP, 23-24, P F, 30 MCG/0.3 mL, 12 YRS AND ABOVE, IM ([facility] [place] [facility]) 04/16/2023 Covid-19, Mrna, Lnp-s, Pf, B ivalent, 30 Mcg, IM, 12 yrs and above (Elite Form) 03/17/2022 Pneumococcal Conjugate Vacc, 13 Valent (Prevnar) [...] encounter Miscellaneous Notes * Telephone Encounter - Agatha Reddy LPN - 11/16/2023 10:51 AM EDT Images from the original note were not included. [facility] Remote Patient Monitoring Able to contact patient: Trigger type: Abnormal reading(s): AMC ([facility]): Pulse Oximeter: Oxygen saturation per oximeter: 88% measured while on room air Symptom review: Headache Diet Reviewed: N/A Fluid Intake Reviewed: N/A Self-Management Plan Reviewed: Red Flags: none Risk assignment recommendation: Moderate risk findings (check as applicable): [x] Moderate trigger priority on AMC [] Confirmed tympanic equivalent temperature 100.4-101.9 F onehour post administration of antipyretic [] Weight gain [...] as applicable): [] High trigger priority on [facility] [] Confirmed tympanic equivalent temperature greater than [...] Confirmed SBP less than 90 WITH symptoms [] Confirmed new SpO2 less than 90% [] Confirmed SBP greater than 170 WITH symptoms [] Confirmed DBP greater than 90 WITH symptoms Additional risk selection justification: Spoke to patient had headache took tylenol and is startingto go away denies any chest pain or increased SOB at this time Pulse ox now 91% RA Rechecking his BP also 148/98 wash 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 supervisor 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 spoke 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 this am Encouraged to call with any urgent issues Overall risk and identified plan: Moderate risk: Route to RNCM (Registered Nurse Pump Machine Operator) and Advance Practitioner documented in this encounter Plan of Treatment Upcoming Encounters Date Type Department Care Team (Late st Contact Info) Description 11/18/2023 8:30 AM EDT Home Visit [facility], [facility] [address] [place] [address] Myrtle Allen, RN [address] [place] [address] 12/03/2023 8:30 AM EDT Pharmacy Family Practice [facility] 293 [place] [address] College, Pharmacist [address] [place] [address] 12/03/2023 8:40 AM EDT Office Visit Family Practice [facility] 293 [facility], [place] [address] Benny Waite, 293 [facility], [place] [address] 12/03/2023 3:30 PM EDT Office Visit Interventional Pain Center, [facility] [address] [place] [address] Luann Guerra PA-C 132 [facility] [address] 12/13/2023 11:20 AM EDT Office Visit Family Practice [facility] 293 [place] [address] Benny Waite, 293 [place] [address] 12/21/2023 11:00 AM EDT Nurse Only Ancillary [facility] 293 [place] [address] College, Nurse Annual Wellness Visit [address] [place] [address] 01/12/2024 8:30 AM EDT Office Visit Cardiology, [facility] 132 [place] [address] Franco Mcgregor MD [address] [place] [address] 01/25/2024 1:00 PM EDT Telemedicine [facility], [facility] 132 [place] [address] Yadira Omalley CRNP 132 [place] [address] Ines Castro, Community Health Seed Yeast Operator [address] [place] [address] 02/15/2024 8:00 AM EDT Office Visit Cardiology, [facility] 132 [place] [address] Casimiro Barraza MD 132 [place] [address] 05/15/2024 1:20 PM EST Office Visit Otolaryngology [facility] 132 [place] [address] George Ferrer PA-C 132 [place] [address] Health Maintenance Due Date Last Done Comments [...] this encounter Medical Devices Implanted Type Area Warehouse Operator Device Identifier Shelf Expiration Date Model / Serial / Lot Device Watchman Flx 35mm - [id number] Implanted:Qty: 1 on 02/05/2022 by Diamond Teran IV, MD at [facility] [employer] : INTRV CARD [id number] 10/20/2024 [id number] / / [id number] Cath Thermodilution 6fr - [id number] Implanted:Qty: 1 on 07/31/2022 by Franco Mcgregor MD at [facility] [employer] [id number] 04/30/2024 [id number] / / [id number] Mirtaclip G4 - [id number] Implanted:Qty: 1 on 11/16/2022 at [facility] CASEY [employer] 06/25/2023 [id number] / / [id number] Clip Delivery Sytem G4 Xtw - [id number] Implanted:Qty: 1 on 11/16/2022 at [facility] [employer] [id number] 08/10/2023 [id number] TW / / [id number] Clip Delivery Sytem G4 Xtw - [id number] Implanted:Qty: 1 on 11/16/2022 at [facility] [employer] [id number] 09/10/2023 [id number] / / [id number] documented as of this encounter Advance Directives * Full Code (Latest Code Status on File) Date Activated Date Inactivated Comments 11/16/2022 4:24 PM 11/17/2022 8:54 PM This order re flects the patients wishes and were consensually agreed [...] and were consensually agreed upon. Care Teams Financial Aid Counselor Relationship Specialty Start Date End Date Benny Waite DO 293 [place] [address] PCP - General Internal Medicine 04/03/21 documented as of this encounter
--- OUTSIDE RECORDS SUMMARY | 2023-12-04 10:17 | External Medical Summary | Summary of Care ---
Author Name Unknown Organization [facility] Address [address] [place] [place] [place] [address] Phone [phone] Care Team Providers Care C.O.D. Clerk Name Role Phone Benny Waite DO Primary Care Provider Reason for Visit * Reason Onset Date Comments Home Monitoring Orders Only 11/15/2023 Encounter Details Date Type Department Care Team (Late st Contact Info) Description 11/15/2023 Home Monitoring Family Practice [address], [place] 293 [place] [address] Benny Waite DO 293 [place] [address] DEX (obstructive sleep apnea)* Allergies Active Allergy Reactions Criticality Noted Date [...] night without results. 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 Patient does not understand what is going on. * Macy West OSA - 11/16/2023 8:43 AM EDT Pt calling to advise he got a call from someone who will be picking up equipment, however; he was unaware of anything being changed. Please call him at his home number. * Anamaria San OSA - 11/15/2023 12:00 PM EDT Patient [place] been [place] [address] home [place] program due to program completed. documented in this encounter Plan of Treatment Upcoming Encounters Date Type Department Care Team (Late st Contact Info) Description 11/18/2023 8:30 AM EDT Home Visit [facility] [address] [address] Myrtle Allen RN [address] [address] 12/03/2023 8:30 AM EDT Pharmacy Family Practice 65 [facility] 293 [facility], [place] [phone] College, Pharmacist [address], [place] [address] 12/03/2023 8:40 AM EDT Office Visit Family Practice 65 [facility] 293 [facility], [place] [phone] Benny Waite DO 293 [place] [address] 12/03/2023 3:30 PM EDT Office Visit [facility], [facility] [place] [address] Luann Guerra PA-C [address] [place] [address] 12/13/2023 11:20 AM EDT Office Visit Family Practice 65 [facility] 293 [place] [address] Benny Waite, 293 [place] [address] 12/21/2023 11:00 AM EDT Nurse Only Ancillary 65 [facility] 293 [place] [address] College, Nurse Annual Wellness Visit [address] [place] [address] 01/12/2024 8:30 AM EDT Office Visit Cardiology, [facility] [address] [facility] [place] [address] Franco Mcgregor MD [address] [place], [place] [id number] 01/25/2024 1:00 PM EDT [facility]icine [facility] [place], [facility] [address] [place] [address] Yadira Omalley CRNP [address] [place] [address] Ines Castro, Community Health Film Casting Operator [address] [place] [address] 02/15/2024 8:00 AM EDT Office Visit Cardiology, [facility] 132 [facility] [address] Casimiro Barraza MD [address] [place] [address] 05/15/2024 1:20 PM EST Office Visit Otolaryngology [facility] [address] [place] [address] George Ferrer PA-C [address] [place] [address] Health Maintenance Due Date Last Done Comments [...] this encounter Medical Devices Implanted Type Area Gear Tooth Lapping Machine Operator Device Identifier Shelf Expiration Date Model / Serial / Lot Device Watchman Flx 35mm - [id number] Implanted:Qty: 1 on 02/05/2022 by Diamond Teran IV, MD at [facility] [employer] : INTRV CARD [id number] 10/20/2024 [id number] 50 / / [id number] Cath Thermodilution 6fr - [id number] Implanted:Qty: 1 on 07/31/2022 by Franco Mcgregor MD at [facility] [employer]TO [id number] 04/30/2024 [id number] / / [id number] Mirtaclip G4 - [id number] Implanted:Qty: 1 on 11/16/2022 at [facility] [employer] 06/25/2023 [id number] / / [id number] Clip Delivery Sytem G4 Xtw - [id number] Implanted:Qty: 1 on 11/16/2022 at [facility] [employer] [id number] 08/10/2023 [id number] TW / / [id number] Clip Delivery Sytem G4 Xtw - [id number] Implanted:Qty: 1 on 11/16/2022 at [facility] [employer] [id number] 09/10/2023 [id number] / / [id number] documented as of this encounter Visit Diagnoses Diagnosis DEX (obstructive sleep apnea)- Primary Obstructive sleep apnea (adult) (pediatric) documented in this encounter Advance Directives * [...] and were consensually agreed upon. Care Teams C.O.D. Clerk Relationship Specialty Start Date End Date Benny Waite DO [address] [place] [address] PCP - General Internal Medicine 04/03/21 documented as of this encounter
--- OUTSIDE RECORDS SUMMARY | 2023-12-04 10:17 | External Medical Summary | Summary of Care ---
Author Name Unknown Organization [facility] Address [address] [place] [place] [address] Phone [phone] Care Team Providers Care Dress Draper Name Role Phone Benny Waite DO Primary Care Provider [phone] Reason for Visit * Reason Onset Date Comments Home Monitoring Orders Only 11/15/2023 Encounter Details Date Type Department Care Team (Late st Contact Info) Description 11/15/2023 Home Monitoring Family Practice [address], [place] [address] [place] [address] Benny Waite DO 293 [place] [address] DEX (obstructive sleep apnea)* Allergies [...] night without results. He will go to [facility] for abdominal x-ray today to rule [...] Overview: Added automatically from request for surgery [id number] Last Assessment & Plan: S/p Watchman Current [...] in the Comments) Remote Patient Monitoring Vendor: [facility] Device(s): Connected Scale Self - Management Plan [...] MCG/0.3 mL, 12 YRS AND ABOVE, IM ([employer]) 04/16/2023 Covid-19, Mrna, Lnp-s, Pf, B ivalent, 30 Mcg, IM, 12 yrs and above ([employer]) 03/17/2022 Pneumococcal Conjugate Vacc, 13 Valent (Prevnar) [...] as of this encounter Progress Notes * Anamaria San OSA - 11/15/2023 12:00 PM EDT Patient has been [facility] the [id number] due to program completed. documented in this encounter Plan of Treatment Upcoming Encounters Date Type Department Care Team (Late st Contact Info) Description 11/18/2023 8:30 AM EDT Home Visit [facility] [place], [facility] [address] [address] Myrtle Allen RN [address] [place] [address] 12/03/2023 8:40 AM EDT Office Visit Family Practice [address] [place] [address] [facility] [phone] Benny Waite, DO 293 [place] [address] 12/03/2023 3:30 PM EDT Office Visit [facility], [facility] [address] [place] [address] Luann Guerra PA-C [facility] [place] [address] 12/13/2023 11:20 AM EDT Office Visit Family Practice [address] [place] [address] [facility] [address] Benny Waite, DO 293 [place] [address] 12/21/2023 11:00 AM EDT Nurse Only Ancillary [address] [place] [address], [place] [address] [place], Nurse Annual Wellness Visit [address] [address] 01/12/2024 8:30 AM EDT Office Visit Cardiology, [facility] [address] [place] [address] Franco Mcgregor MD [address] [facility] [place] [address] 01/25/2024 1:00 PM EDT [facility]icine [facility], [facility] [address] Yadira Omalley CRNP 132 [place] [address] Ines Castro, Community Health Steel Erector [address] [place] [address] 02/15/2024 8:00 AM EDT Office Visit Cardiology, [facility] [address] Casimiro Barraza MD [address] [facility] [place] [place] [address] 05/15/2024 1:20 PM EST Office Visit Otolaryngology [facility] 132 [facility] [address] George Ferrer PA-C [address] [facility] [place] [address] Health Maintenance Due Date Last Done Comments [...] encounter Medical Devices Implanted Type Area Manager Supply Chain Planning Device Identifier Shelf Expiration Date Model / Serial / Lot Device Watchman Flx 35mm - [id number] Implanted:Qty: 1 on 02/05/2022 by Diamond Teran IV, MD at [facility] [employer] : INTRV CARD [id number] 10/20/2024 [id number] 50 / / [id number] Cath Thermodilution 6fr - [id number] Implanted:Qty: 1 on 07/31/2022 by Franco Mcgregor MD at [facility] [employer] [id number] 04/30/2024 [id number] / / [id number] Mirtaclip G4 - [id number] Implanted:Qty: 1 on 11/16/2022 at [facility] [employer] 06/25/2023 [id number] / / [id number] Clip Delivery Sytem G4 Xtw - [id number] Implanted:Qty: 1 on 11/16/2022 at [facility] [employer]ajah [id number] 08/10/2023 [id number] / / [id number] Clip Delivery Sytem G4 Xtw - [id number] Implanted:Qty: 1 on 11/16/2022 at [facility] Jajah [id number] 09/10/2023 [id number] TW / / [id number] documented as of this encounter Visit [...] and were consensually agreed upon. Care Teams Dress Draper Relationship Specialty Start Date End Date Benny Waite DO 293 [place] [address] PCP - General Internal Medicine 04/03/21 documented as of this encounter
--- OUTSIDE RECORDS SUMMARY | 2023-12-04 10:17 | External Medical Summary | Summary of Care ---
Author Name Unknown Organization [facility] Address [address] [place] [facility] [place] [address] Phone [phone] Care Team Providers Care Mail Weigher Name Role Phone Benny Waite DO Primary Care Provider [phone] Reason for Visit * Reason Onset Date Comments Home Monitoring Orders Only 11/15/2023 Encounter Details Date Type Department Care Team (Late st Contact Info) Description 11/15/2023 Home Monitoring Family Practice [address], [place] 293 [place] [address] Benny Waite DO 293 [place] [address] DEX (obstructive sleep apnea)* Allergies [...] night without results. 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) 04/16/2023 Covid-19, Mrna, Lnp-s, Pf, B ivalent, 30 Mcg, IM, 12 yrs and above ([employer]) 03/17/2022 Pneumococcal Conjugate Vacc, 13 Valent (Prevnar) [...] EDT Patient has been [place] the [place] [address] [place] program due to program completed. documented in this encounter Plan of Treatment Upcoming Encounters Date Type Department Care Team (Late st Contact Info) Description 11/18/2023 8:30 AM EDT Home Visit [facility] [address] [address] Myrtle Allen RN [address] [address] [address] 12/03/2023 8:30 AM EDT Pharmacy Family Practice 65 [facility] 293 [facility], [place] [address] College, Pharmacist [address], [place] [address] 12/03/2023 8:40 AM EDT Office Visit Family Practice [facility] 293 [facility], [place] [phone] Benny Waite DO 293 [place] [address] 12/03/2023 3:30 PM EDT Office Visit Interventional [facility] Center, [facility] [place] [address] Luann Guerra PA-C [facility] [place] [address] 12/13/2023 11:20 AM EDT Office Visit Family Practice 65 [facility] 293 [place] [address] Benny Waite, 293 [place] [address] 12/21/2023 11:00 AM EDT Nurse Only Ancillary 65 [facility] 293 [place] [address] College, Nurse Annual Wellness Visit [address] [place] [address] 01/12/2024 8:30 AM EDT Office Visit Cardiology, [facility] 132 [place] [address] Franco Mcgregor MD [address] [place], [place] [address] 01/25/2024 1:00 PM EDT [facility]icine [facility] [place], [facility] [place] [address] Yadira Omalley CRNP [address] [place] [address] Ines Castro, Community Health Metal Storage Worker [address] [place] [address] 02/15/2024 8:00 AM EDT Office Visit Cardiology, [facility] 132 [place] [address] Casimiro Barraza MD [address] [place] [address] 05/15/2024 1:20 PM EST Office Visit Otolaryngology [facility] [address] [place] [address] George Ferrer PA-C [address] [place] [address] Health Maintenance Due Date Last Done Comments [...] this encounter Medical Devices Implanted Type Area Automotive Teacher Device Identifier Shelf Expiration Date Model / Serial / Lot Device Watchman Flx 35mm - [id number] Implanted:Qty: 1 on 02/05/2022 by Diamond Teran IV, MD at [facility] [employer] : INTRV CARD [id number] 10/20/2024 [id number] 50 / / [id number] Cath Thermodilution 6fr - [id number] Implanted:Qty: 1 on 07/31/2022 by Franco Mcgregor MD at [facility] [employer] [id number] 04/30/2024 [id number] / / [id number] Mirtaclip G4 - [id number] Implanted:Qty: 1 on 11/16/2022 at [facility] [employer] 06/25/2023 [id number] / / [id number] Clip Delivery Sytem G4 Xtw - [id number] Implanted:Qty: 1 on 11/16/2022 at [facility] [employer] [id number] 08/10/2023 [id number] TW / / [id number] Clip Delivery Sytem G4 Xtw - [id number] Implanted:Qty: 1 on 11/16/2022 at [facility] [employer] [id number] 09/10/2023 [id number] / / [id number] documented as of this encounter Visit [...] and were consensually agreed upon. Care Teams Mail Weigher Relationship Specialty Start Date End Date Benny Waite DO [address] [place] [address] PCP - General Internal Medicine 04/03/21 documented as of this encounter
--- OUTSIDE RECORDS SUMMARY | 2023-12-04 10:17 | External Medical Summary | Summary of Care ---
Author Name Unknown Organization [facility] Address [address] [place] [facility] [place] [address] Phone [phone] Care Team Providers Care Patient Financial Specialist Name Role Phone Benny Waite DO Primary Care Provider [phone] Reason for Visit * Reason Onset Date Comments Home Monitoring Orders Only 11/15/2023 Encounter Details Date Type Department Care Team (Late st Contact Info) Description 11/15/2023 Home Monitoring Family Practice [address], [place] 293 [place] [address] Benny Waite DO 293 [place] [address] DEX (obstructive sleep apnea)* Allergies [...] night without results. 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 Device(s): Connected Scale Self [...] MCG/0.3 mL, 12 YRS AND ABOVE, IM ([employer]) 04/16/2023 Covid-19, Mrna, Lnp-s, Pf, B ivalent, 30 Mcg, IM, 12 yrs and above ([employer]) 03/17/2022 Pneumococcal Conjugate Vacc, 13 Valent (Prevnar) [...] as of this encounter Progress Notes * Macy West, DEX - 11/16/2023 8:43 AM EDT Pt calling to advise he got a call from someone who will be picking up equipment, however; he was unaware of anything being changed. Please call him at his home number. * Anamaria San OSA - 11/15/2023 12:00 PM EDT Patient has been [place] the [place] [address] home monitoring program due to program completed. documented in this encounter Plan of Treatment Upcoming Encounters Date Type Department Care Team (Late st Contact Info) Description 11/18/2023 8:30 AM EDT Home Visit Pat at [facility] [address] [address] Myrtle Allen RN [address] [place] [address] 12/03/2023 8:30 AM EDT Pharmacy Family Practice [address] [place] [address] 293 [place] [address] College, Pharmacist [address] [place] [address] 12/03/2023 8:40 AM EDT Office Visit Family Practice 65 [facility] 293 [place] [address] Benny Waite, 293 [place] [address] 12/03/2023 3:30 PM EDT Office Visit [facility], [facility] [address] [address] Luann Guerra PA-C [address] [place] [address] 12/13/2023 11:20 AM EDT Office Visit Family Practice 65 [facility] 293 [place] [address] Benny Waite, 293 [place] [address] 12/21/2023 11:00 AM EDT Nurse Only Ancillary 65 [facility] 293 [place] [address] College, Nurse Annual Wellness Visit [address] [place] [address] 01/12/2024 8:30 AM EDT Office Visit Cardiology, [facility] 132 [facility] [place] [address] Franco Mcgregor MD [address] [place] [address] 01/25/2024 1:00 PM EDT [facility]icine [facility] [place], [facility] 132 [place] [address] Yadira Omalley CRNP [address] [place] [address] Ines Castro, Community Health International Project Manager [address] [place] [address] 02/15/2024 8:00 AM EDT Office Visit Cardiology, [facility] 132 [facility] [place] [address] Casimiro Barraza MD 132 [place] [address] 05/15/2024 1:20 PM EST Office Visit Otolaryngology [facility] 132 [place] [place] [address] George Ferrer PA-C [address] [place] [address] Health Maintenance Due Date Last Done Comments [...] this encounter Medical Devices Implanted Type Area Consulting Technical Manager Device Identifier Shelf Expiration Date Model / Serial / Lot Device Watchman Flx 35mm - [id number] Implanted:Qty: 1 on 02/05/2022 by Diamond Teran IV, MD at [facility] [employer] : INTRV CARD [id number] 10/20/2024 [id number] 50 / / [id number] Cath Thermodilution 6fr - [id number] Implanted:Qty: 1 on 07/31/2022 by Franco Mcgregor MD at [facility] [employer] [id number] 04/30/2024 [id number] / / [id number] Mirtaclip G4 - [id number] Implanted:Qty: 1 on 11/16/2022 at [facility] [employer] 06/25/2023 [id number] / / [id number] Clip Delivery Sytem G4 Xtw - [id number] Implanted:Qty: 1 on 11/16/2022 at [facility] [employer] [id number] 08/10/2023 [id number] / / [id number] Clip Delivery Sytem G4 Xtw - [id number] Implanted:Qty: 1 on 11/16/2022 at [facility] [employer] [id number] 09/10/2023 [id number] / / [id number] documented as of this encounter Visit [...] and were consensually agreed upon. Care Teams Patient Financial Specialist Relationship Specialty Start Date End Date Benny Waite DO 293 [place] [address] PCP - General Internal Medicine 04/03/21 documented as of this encounter
--- OUTSIDE RECORDS SUMMARY | 2023-12-04 10:17 | External Medical Summary | Summary of Care ---
Author Name Unknown Organization [facility] Address [address] [facility] [place] [address] Phone [phone] Care Team Providers Care Building Maintenance Technician Name Role Phone Benny Waite DO Primary Care Provider [phone] Reason for Visit * Reason Onset Date Comments [facility]: Maintenance 11/15/2023 Encounter Details Date Type Department Care Team (Late st Contact Info) Description 11/15/2023 Telephone [facility], [facility] [address] [place] [address] Myrtle Allen, RN [address] [place] [address] [facility]: Maintenance Allergies Active Allergy [...] results. He will go to [facility] for abdominal x-ray today to rule out [...] [facility] 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 Not on statin--LDL 89. Will defer to PCP to add statin--goal <70 BP at goal today. 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 He is concerned that his BP is high and fluctuating. TT sent to Yoav Allen RNCM re: same. Myrtle clarified that only the wearable is being discontinued, it was just for short term. He can still have the BP cuff and scale. Notified pt of same and he verbalized understanding. Laura RICK, RN [facility] Intake Triage Coordinator [phone] * Telephone Encounter - Myrtle Allen RN - 11/15/2023 11:37 AM EDT Please discharge the patient from [facility]. Device(s) to be discontinued: CHM wearable devicedue to monitoring completed. Thank you. documented in this encounter Plan of Treatment Upcoming Encounters Date Type Department Care Team (Late st Contact Info) Description 11/18/2023 8:30 AM EDT Home Visit [facility] [address] [facility] [address] [facility] [place] [address] Myrtle Allen RN [address] [facility] [address] [facility] [address] 12/03/2023 8:30 AM EDT Pharmacy Family Practice [address] [facility] [address] [facility] [place] [id number] College, Pharmacist [address] [place] [address] 12/03/2023 8:40 AM EDT Office Visit Family Practice [address] [facility] [address] [facility] [place] [id number] Benny Waite, 293 [place] [address] 12/03/2023 3:30 PM EDT Office Visit Interventional [facility], [facility] 132 [facility] [place] [address] Luann Guerra PA-C 132 [facility] [place] [address] 12/13/2023 11:20 AM EDT Office Visit Family Practice [address] [facility] [address] [facility] [place] [address] Benny Waite, 293 [place] [address] 12/21/2023 11:00 AM EDT Nurse Only Ancillary [address] [place] [address], [place] [address] College, Nurse Annual Wellness Visit [address] [place] [address] 01/12/2024 8:30 AM EDT Office Visit Cardiology, [facility] [address] [facility] [place] [address] Franco Mcgregor MD [address] [place] [address] 01/25/2024 1:00 PM EDT Telemedicine [facility], [facility] [address] [facility] [place] [address] Yadira Omalley CRNP [facility] [address] Ines Castro, [facility] Cytogenetic Technologist [address] [place] [address] 02/15/2024 8:00 AM EDT Office Visit Cardiology, [facility] [address] [facility] [place] [id number] Casimiro Barraza MD [address] [place] [address] 05/15/2024 1:20 PM EST Office Visit Otolaryngology [facility] [address] [place] [address] George Ferrer PA-C [address] [place] [address] Health Maintenance Due Date Last Done Comments [...] this encounter Medical Devices Implanted Type Area Flight Operations Manager Device Identifier Shelf Expiration Date Model / Serial / Lot Device Watchman Flx 35mm - [id number] Implanted:Qty: 1 on 02/05/2022 by Diamond Teran IV, MD at [facility] [employer] : INTRV CARD [id number] 10/20/2024 [id number] / / [id number] Cath Thermodilution 6fr - [id number] Implanted:Qty: 1 on 07/31/2022 by Franco Mcgregor MD at [facility] [place] [employer] [id number] 04/30/2024 [id number] / / [id number] Mirtaclip G4 - [id number] Implanted:Qty: 1 on 11/16/2022 at [facility] [employer] 06/25/2023 [id number] / / [id number] Clip Delivery Sytem G4 Xtw - [id number] Implanted:Qty: 1 on 11/16/2022 at [facility] [employer] [id number] 08/10/2023 [id number] / / [id number] Clip Delivery Sytem G4 Xtw - [id number] Implanted:Qty: 1 on 11/16/2022 at [facility] [facility] [employer] [id number] 09/10/2023 [id number] / / [id number] documented as of this encounter Advance [...] and were consensually agreed upon. Care Teams Building Maintenance Technician Relationship Specialty Start Date End Date Benny Waite DO [address] [facility] [place] [address] PCP - General Internal Medicine 04/03/21 documented as of this encounter
--- OUTSIDE RECORDS SUMMARY | 2023-12-04 10:17 | External Medical Summary | Summary of Care ---
Author Name Unknown Organization [facility] Address [address] [facility] [address] Phone [phone] Care Team Providers Care Riddler Operator Name Role Phone Benny Waite DO Primary Care Provider [phone] Reason for Visit * Reason Comments NEW PATIENT Nosebleeds, dry thro at and impacted cerumen * Evaluate & Treat - Unlimited Visits (Within 10 days (routine)) - Pending Review Specialty Diagnoses / Procedures Referred By Elaina hernandez Referred To Contact Otolaryngology Diagnoses Bleeding from the nose Benny Waite DO [address] [place] [address] Referral ID Status Reason Start Date Expiration Date Visits Requested Visits Authorized [id number] Pending Review Specialty Services Required 09/02/[phone] Encounter Details Date Type Department Care Team (Late st Contact Info) Description 11/10/2023 2:20 PM EDT Office Visit Otolaryngology [facility] [address] [facility] [place] [address] George Ferrer PA-C [address] [place] [address] Recurrent epistaxis [R04.0]*; Chronic sore throat; Sore throat Allergies Active Allergy Reactions Criticality Noted Date [...] results. He will go to [facility] for abdominal x-ray today to rule [...] MVR (mitral valve repair) 11/16/2022 Atherosclerosis of confederated salish co 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 pectoris 08/11/2022 Severe tricuspid regurgitation 08/11/2022 Gout, arthropathy 07/20/2022 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 02/05/2022 Permanent atrial fibrillation 12/22/2021 Overview: Added automatically from request for surgery [id number] Last Assessment & Plan: S/p Watchman Current [...] in the Comments) Remote Patient Monitoring Vendor: [facility] Device(s): Connected Scale Self - [...] mRNA, LNP-s, No Pre serve, 2-Dose Series ([employer]) 05/14/2021 COVID-19, LNP-s, No Preserve , Robbie-sucrose, Ages 12+ (Pfizer) 11/04/2021 COVID-19, MRNA-LNP, 23-24, P F, 30 MCG/0.3 mL, 12 YRS AND ABOVE, IM ([employer]) 04/16/2023 Covid-19, Mrna, Lnp-s, Pf, B ivalent, [...] Sign Reading Time Taken Comments Blood Pressure - - Pulse - - Temperature 35.8 C (96.5 F) 11/10/2023 2:03 PM ED T Respiratory Rate - - Oxygen Saturation - - Inhaled Oxygen Concentration - - Weight 100.7 kg (222 lb 1.6 oz) 11/10/2023 2:03 PM EDT Height 170.8 cm (5' 7.24") 11/10/2023 2:03 PM ED T Body Mass Index 34.53 11/10/2023 2:03 PM EDT documented in this [...] this encounter Patient Instructions * Patient Instructions* George Ferrer PA-C - 11/10/2023 2:34 PM EDT Education of epistaxis prevention was provided, which includes: 1. NeilMed or similar nasal irrigations twice a day 2. Rankin spray or saline mist spray 4 times a day and as needed to keep nasal mucosa moist 3. Avoid nasal cannula for supplemental oxygen if required, can use face tent or face mask instead. 4. Use of a humidifier in the bedroom 5. Vaseline in bilateral nasal vestibules twice a day (after using NeilMed) If patient has an episode of epistaxis: 1. Can use over the counter Oxymetazoline spray (Afrin) in both nostrils 2. Hold firm pressure over the soft portion of the nose, as demonstrated in clinic for 20 minutes. NO PEEKING. 3. Lean forward so blood is not swallowed or aspirated 4. If still bleeding after 20 minutes can repeat steps 1-3 one more time 5. If still bleeding proceed to nearest Emergency department or Urgent care [facility]: [phone] documented in this encounter Progress Notes * George Ferrer PA-C - 11/10/2023 2:20 PM EDT HISTORY OF PRESENT ILLNESS This 83 year old male is seen at the request of Benny Waite DO for the initial evaluation of epistaxis. Patient is accompanied by self. Had bleeding from both nostrils in August. He had nose bleeding and was seen at [facility] ER 08/31/23. Was seen again 09/05/23 at the ER for removal of packing from left nostril. Prior to August , no issues with recurrent epistaxis. Since August has not had any nosebleeds. Pt is on aspirin. Was on plavix at time of bleeds for afib-- has since discontinued looks like back in August. He does not use any saline sprays or vaseline. His throat is often sore and irritated. He will sometimes just get a drink of water and will resolve. Other times takes a few cough drops. Smoking hx: when he was much younger for a few years. No hx of head/neck cancer for pt or family. Denies blood tinged mucous. Ear: left ear has had some dampness and decreased hearing. Hearing is worse in left ear compared toright. He was seen by audiology 3-4 years ago at [facility] and noted to have asymmetry. Has not had any recent change in hearing. Some discomfort in left ear. Fairly constant left sided tinnitus for years. No hx of otologic surgeries. No injury or trauma. Does not wear hearing aids. 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] 07/23/2023 Sacroiliitis, not elsewhere classified (HCC) [M46.1] 06/16/2023 S/P MVR (mitral valve repair) [Z98.890] 11/16/2022 Atherosclerosis of confederated salish co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 pectoris [I25.10] 08/11/2022 Severe tricuspid regurgitation [I07.1] 08/11/2022 Gout, arthropathy [M10.9] 07/20/2022 Presence of Watchman left atrial appendage closure device [Z95.818] 02/05/2022 Permanent atrial fibrillation (HCC) [I48.21] 12/22/2021 Added automatically from request for surgery [id number] 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) [F32.1] 07/09/2021 Moderate to severe mitral regurgitation [I34.0] 04/03/2021 Lumbar degenerative disc disease [M51.36] 04/03/2021 DEX (obstructive sleep apnea) [G47.33] 10/01/2020 Encounter for long-term (current) use of medications [Z79.899] 05/09/2019 CHF (congestive heart failure), NYHA class I, chronic, diastolic (HCC) [I50.32] 05/02/2019 BPH with obstruction/lower urinary tract symptoms [N40.1, N13.8] 09/27/2017 Macular puckering [H35.379] 12/19/2008 Elevated prostate specific antigen (PSA) [R97.20] 11/12/2008 ADVANCE DIRECTIVE INFORMATION 03/31/2007 No, Advance Directive brochure offered , patient declined. Past Medical History: Diagnosis Date Aortic root [...] DIAGNOSTIC (RECTUM) 02/13/2021 diverticulosis, fair prep / [facility] COLORECTAL CANCER SCREEN; NOT AT RISK 04/04/2008 Diverticulosis CORONARY ANGIOGRAPHY W/RIGHT+LEFT CATH Bilateral 07/31/2022 CORONARY ANGIOGRAPHY W/RIGHT+LEFT CATH performed by Franco Mcgregor MD at [facility] CYSTOSCOPY 10/22/2011 CYSTOURETHROSCOPY performed by LIBERTAD FITZPATRICK at [facility] CYSTOSCOPY 09/13/2012 CYSTOURETHROSCOPY performed by Eliseo Menard MD at [facility] INJECT DX/THER SUBSTANCE INTERLAMINAR LUMBAR/SACRAL W IMAGE GUIDE 06/23/2021 INJECTION SPINE LUMBAR OR SACRAL performed by Anderson Easton DO at OR [facility] OTHER 02/13/1980 Dr. Zhang DEX surgery OTHER left hand reconstruction PERC CLOSURE TRANSCATH LEFT ATRIAL APPENDAGE W/ENDOCARDIAL IMPLANT N/A 02/05/2022 PERCUTANEOUS CLOSURE LEFT ATRIAL APPENDAGE IMPLANT performed by Diamond Teran IV, MD at [facility] PSA 06/14/2004 3.42 PSA 06/14/2005 3.72 PSA 02/13/2008 5.17 REMOVAL OF PROSTATE (TURP) 10/22/2011 TRANSURETHRAL RESECTION PROSTATE ELECTROSURGICAL performed by LIBERTAD FITZPATRICK at [facility] REMOVAL OF PROSTATE (TURP) 09/13/2012 TRANSURETHRAL RESECTION PROSTATE ELECTROSURGICAL performed by Eliseo Menard MD at [facility] REMOVE CATARACT, INSERT LENS PROSTH OU REMOVE TONSILS & ADENOIDS, UNDER 12 SACROILIAC JOINT INJECT W/GUIDANCE 11/11/2022 INJECTION SACROILIAC JOINT performed by Anderson Easton DO at [facility] SACROILIAC JOINT INJECT W/GUIDANCE 02/10/2023 INJECTION SACROILIAC JOINT performed by Anderson Easton DO at [facility] SACROILIAC JOINT INJECT W/GUIDANCE 05/26/2023 INJECTION SACROILIAC JOINT performed by Anderson Easton DO at [facility] TRANSCATH REPAIR MITRAL VALVE, INITIAL Bilateral 11/16/2022 TRANSCATHETER MITRAL VALVE REPAIR performed by Franco Mcgregor MD at [facility] VITRECTOMY W/ REMOVE OF EPIRETINAL MEMBRANE 11/12/2008 [...] times a day as needed for Dizziness. Gabapentin 300 MG Oral Capsule (Neurontin) TAKE [...] Dyspnea, Cough or Wheezing. 6.7 g 3 Furosemide 20 MG Oral Tablet (Lasix) Take 1 Tablet by mouth in the morning. 100 Tablet 3 Bisacodyl 10 MG Rectal Suppository (Dulcolax) Administer 1 Suppository into the rectum daily as needed for Constipation. Do not use for more than 1 week. 10 Suppository 0 traMADol HCl 50 MG Oral Tablet (Ultram) TAKE ONE TABLET BY MOUTH IN THE MORNING, ONE TABLET AT NOON, AND ONE TABLET IN THE EVENING 90 Tablet 0 Ondansetron HCl 4 MG Oral Tablet Take 1 Tablet by mouth every 8 hours as needed for Nausea. 30 Tablet 0 No current facility-administered medications for this visit. Review of patient's allergies indicates: Allergen Reactions Duloxetine Other Reaction(s): confusion Adhesive Tape Levaquin [Levofloxacin] Family History Problem Relation Name Age of Onset Other (Natural causes) Mother Stroke Mother Migraines Father Heart attack Father 55 No Known Problems Sister No Known Problems Sister Cancer Sister "female cancer" No Known Problems Brother Cancer None ne head or neck cancer Other (sleep apnea) Son Social History Social History Tobacco Use Smoking status: Never Passive exposure: Never Smokeless tobacco: Never Substance Use Topics Alcohol use: Not Currently Vaping/E-Cigarette Use Vaping/E-Cigarette Use Never User Vaping/E-Cigarette Substances Nicotine No Other No Flavoring No THC No Cannabidiol (CBD) No Vaping/E-Cigarette Devices Disposable No Pre-filled or Refillable Cartridge No Refillable Tank No Pre-filled Pod No I reviewed the updated past medical history, problem list, past surgical history, social history, family history, allergy and current medication list. Occupational History Work: ROS General: No recent weight loss/gain. No fatigue. Cardio: No palpitations, chest pain, no orthopnea, or dyspnea on exertion. Lung: No cough, wheezing, sputum or shortness of breath. Nerve: No numbness, weakness of extremities, diplopia, vertigo, mental status change Heme: No easy bruising, bleeding. No fever. No chills. No sweats. Neuro: No memory loss, no weakness, no numbness. Skin: No rash, itching or new/changing lesions. Eyes: No change in vision, redness of the eyes, or ocular pain. ROS otherwise negative unless stated in PMH or HPI. Temp 35.8 C (96.5 F) (Tympanic) | Ht 1.708 m (5' 7.24") | Wt 100.7 kg (222 lb 1.6 oz) | BMI 34.53 kg/m | BSA 2.19 m PHYSICAL EXAMINATION: Gen: Patient is a healthy male and appears his stated age. He is alert, oriented, cooperative and in no acute distress. The patient is obese.. He is appropriately conversant and His voice is normal in character and quality. Face: No facial asymmetry. There was no erythema or edema noted. Facial movement was symmetric without weakness. No skin lesions were detected. Eyes: The pupils are equal round. No scleral icterus. Ears: The auricles are normally formed without lesions. The external auditory canals are patent andwithout lesion. Both tympanic membranes are intact and freely mobile without perforation, effusion or significant retraction pockets. Nose: The septum is non obstructing and the turbinates are without abnormality. No masses, polyps, mucopus, or other lesion are visualized. Oral Cavity: The mucosa is moist without lesion. The hard palate is intact. The soft palate is intact . The occlusion is stable. Tongue is of normal size with normal mobility. Oropharynx: The tonsils are unremarkable. There is no erythema and no exudate on either side. Salivary glands: No visible or palpable abnormalities of the parotid glands or submandibular glandsbilaterally Neck: Thyroid- no thyromegaly. No neck mass to palpation. Lymphatics: No visible or palpable abnormalities of the lymph nodes of the posterior triangle, anterior cervical chain, central neck or submandibular region. Cranial nerves: Cranial nerves II, III, IV, and were noted to be intact via extra-ocular muscle movement testing. Cranial nerve VII noted to be intact and symmetric by facial movement. Cranial nerve VIII was grossly normal (not tested with tuning forks).. Cranial nerves IX and X noted to be intact by gag reflex and palatal movement. Cranial nerve XII noted to be intact by active and symmetric tongue movement. CV/Heart: regular rate Lungs: No audible stridor No increased work of breathing Able to speak in full sentences Procedure: Due to patient's inability to cooperate with mirror exam or concern for structures otherwise not evaluated, fiberoptic examination of the larynx was performed. The nose was first topically decongested with topical oxymetazoline 0.05% spray and topically anesthetized with topical Lidocaine 4% spray.The scope was used to examine each side of the nose. There were no masses visualized. The nasal mucosa was without lesion. The middle meatus on each side was clear of mass, polyp, or mucopus. The septum was non-obstructing. The nasopharynx was without lesion. Fiberoptic examination revealed no masslesions. Vocal cord mobility was normal without paralysis or paresis. There was no significant edema or erythema of the larynx. No vocal cord masses were visualized. Exam was negative for post cricoid or pyriform sinuses lesions. The patient tolerated the procedure well. Patient should refrain fromeating or drinking for 30-45 minutes due to anesthesia of the pharynx and possible interference with swallowing. I performed the procedure. ASSESSMENT: 1. Recurrent epistaxis [R04.0] 2. Chronic sore throat 3. Sore throat Plan: Focus on prevention of epistaxis as discussed below. Normal scope exam. Offered repeat neck CT-- he had done in 2020 and was normal-- he declined at this time He would like to see an reporting developer to see about possibly getting hearing aids- given information. F/U in 4-6 mo for recheck, sooner PRN. Patient Instructions Education of epistaxis prevention was provided, which includes: 1. NeilMed or similar nasal irrigations twice a day 2. Rankin spray or saline mist spray 4 times a day and as needed to keep nasal mucosa moist 3. Avoid nasal cannula for supplemental oxygen if required, can use face tent or face mask instead. 4. Use of a humidifier in the bedroom 5. Vaseline in bilateral nasal vestibules twice a day (after using NeilMed) If patient has an episode of epistaxis: 1. Can use over the counter Oxymetazoline spray (Afrin) in both nostrils 2. Hold firm pressure over the soft portion of the nose, as demonstrated in clinic for 20 minutes. NO PEEKING. 3. Lean forward so blood is not swallowed or aspirated 4. If still bleeding after 20 minutes can repeat steps 1-3 one more time 5. If still bleeding proceed to nearest Emergency department or Urgent care [facility]: [phone] Pt verbalized understanding of above and agrees with plan. Questions/Concerns addressed. Patient Goals for plan of care discussed in detail. BRENNA Bond Otol[facility]ology, [facility] [place] 11/10/2023 7:14 AM I spent a total of 30-39 minutes (exact time 36 mins) on the date of service in preparation, delivery, and documentation of the care provided to Nikolas Silvestre excluding any time spent in the performance of separately billed services. documented in this encounter Nursing Notes * Asael Agosto CMA - 11/10/2023 2:01 PM EDT Chief Complaint Patient presents with NEW PATIENT Nosebleeds, dry throat and impacted cerumen Nikolas Silvestre is a 83 year old male who presents today with nosebleeds that occurred from both nostrils 5 months ago, he had his nose packed at [facility]. He is on 81mg of Aspirinbut no anticoagulants. He also has a dry throat that is sore in the morning. He states that he has wax in his left ear and his ear has been wet. He was referred by his PCP. documented in this encounter Plan of Treatment Upcoming Encounters Date Type Department Care Team (Late st Contact Info) Description 11/18/2023 8:30 AM EDT Home Visit Pat at [facility] [address] [facility] [place] [address] Myrtle Allen, RN 132 [facility] [place] [address] 12/03/2023 8:40 AM EDT Office Visit Family Practice [address] [facility] 293 [place] [address] Benny Waite, DO 293 [facility] [place] [address] 12/03/2023 3:30 PM EDT Office Visit Interventional [facility] Center, [facility] 132 [facility] [place] [address] Luann Guerra PA-C [address] [facility] [address] [facility] [address] 12/13/2023 11:20 AM EDT Office Visit Family Practice [address] [place] [address] [address] [place] [address] Benny Waite, DO [address] [facility] [place] [address] 12/21/2023 11:00 AM EDT Nurse Only Ancillary [address] [place] [address], [place] [address] College, Nurse Annual Wellness Visit [address] [place] [address] 01/12/2024 8:30 AM EDT Office Visit Cardiology, [facility] [address] [facility] [place] [address] Franco Mcgregor MD [address] [facility] [place] [address] 01/25/2024 1:00 PM EDT Telemedicine [facility] [place], [facility] [address] [place] [address] Yadira Omalley CRNP [address] [facility] [place] [address] Ines Castro, Community Health Disaster Recovery Specialist [address] [place] [address] 02/15/2024 8:00 AM EDT Office Visit Cardiology, [facility] [place] [address] Casimiro Barraza MD [address] [place] [address] 05/15/2024 1:20 PM EST Office Visit Otolaryngology [facility] [place] [address] George Ferrer PA-C [address] [place] [address] Scheduled Referrals Name Type Priority Associated Diagnoses Order Schedule ADULT/PEDS OTOLARYNGOLOGY REFERRAL OP Referral Within 10 days (routine) Bleeding from the nose Ordered: 09/02/2023 Health Maintenance Due Date Last Done Comments [...] this encounter Medical Devices Implanted Type Area Projects Manager Device Identifier Shelf Expiration Date Model / Serial / Lot Device Watchman Flx 35mm - [id number] Implanted:Qty: 1 on 02/05/2022 by Diamond Teran IV, MD at [facility] [employer] : INTRV CARD [id number] 10/20/2024 [id number] / / [id number] Cath Thermodilution 6fr - [id number] Implanted:Qty: 1 on 07/31/2022 by Franco Mcgregor MD at [facility] [employer] [id number] 04/30/2024 [id number] / / [id number] Mirtaclip G4 - [id number] Implanted:Qty: 1 on 11/16/2022 at [facility] [employer] 06/25/2023 [id number] / / [id number] Clip Delivery Sytem G4 Xtw - [id number] Implanted:Qty: 1 on 11/16/2022 at [facility] [employer] [id number] 08/10/2023 [id number] / / [id number] Clip Delivery Sytem G4 Xtw - [id number] Implanted:Qty: 1 on 11/16/2022 at [facility] [employer] [id number] 09/10/2023 [id number] / / [id number] documented as of this encounter Visit Diagnoses Diagnosis Recurrent epistaxis [R04.0]- Primary Epistaxis Chronic sore throat Chronic pharyngitis Sore throat Acute pharyngitis documented in this encounter Advance Directives * [...] and were consensually agreed upon. Care Teams Riddler Operator Relationship Specialty Start Date End Date Benny Waite DO [address] [place] [address] PCP - General Internal Medicine 04/03/21 documented as of this encounter
--- OUTSIDE RECORDS SUMMARY | 2023-12-04 10:17 | External Medical Summary | Summary of Care ---
Author Name Unknown Organization [facility] Address [address] [facility] [place] [address] Phone [phone] Care Team Providers Care Specimen Accessioner Name Role Phone Benny Waite DO Primary Care Provider [phone] Reason for Visit * Reason Onset Date Comments [facility]: Maintenance 11/15/2023 Encounter Details Date Type Department Care Team (Late st Contact Info) Description 11/15/2023 Telephone [facility], [facility] [address] [place] [address] Myrtle Allen, RN [address] [place] [address] [facility]: Maintenance Allergies Active Allergy [...] [facility] 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 Not on statin--LDL 89. Will defer to PCP to add statin--goal <70 BP at goal today. Sacroiliitis, not elsewhere classified 4 S/P MVR (mitral valve repair) 11/16/2022 Atherosclerosis of [place] co 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 pectoris 08/11/2022 Severe tricuspid regurgitation 08/11/2022 Gout, arthropathy 07/20/2022 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 02/05/2022 Permanent atrial fibrillation 12/22/2021 Overview: Added automatically from request for surgery [id number] Last Assessment & Plan: S/p Watchman Current [...] Comments) Remote Patient Monitoring Vendor: [facility] Device(s): Connected Scale Self - Management Plan [...] MCG/0.3 mL, 12 YRS AND ABOVE, IM ([facility]) 04/16/2023 Covid-19, Mrna, Lnp-s, Pf, B ivalent, 30 Mcg, IM, 12 yrs and above ([employer]) 03/17/2022 Pneumococcal Conjugate Vacc, 13 Valent (Prevnar) [...] encounter Miscellaneous Notes * Telephone Encounter - Myrtle Allen RN - 11/15/2023 11:37 AM EDT Please discharge the patient from [facility]. Device(s) to be discontinued: CHM wearable devicedue to monitoring completed. Thank you. documented in this encounter Plan of Treatment Upcoming Encounters Date Type Department Care Team (Late st Contact Info) Description 11/18/2023 8:30 AM EDT Home Visit [facility] [address] [place] [address] Myrtle Allen RN [address] [place] [address] 12/03/2023 8:40 AM EDT Office Visit Family Practice [address] [place] [address] 293 [place] [address] Benny Waite, 293 [place] [address] 12/03/2023 3:30 PM EDT Office Visit Interventional Pain Center, [facility] 132 [place] [address] Luann Guerra PA-C [facility] [address] 12/13/2023 11:20 AM EDT Office Visit Family Practice [address] [place] [address] 293 [facility], [place] [address] Benny Waite, 293 [facility], [place] [address] 12/21/2023 11:00 AM EDT Nurse Only Ancillary [address] [place] [address] 293 [facility], [place] [address] College, Nurse Annual Wellness Visit [address] [place] [address], [place] [address] 01/12/2024 8:30 AM EDT Office Visit Cardiology, [facility] 132 [place] [address] Franco Mcgregor MD [address] [place] [address] 01/25/2024 1:00 PM EDT Telemedicine [facility], [facility] 132 [place] [address] Yadira Omalley CRNP 132 [place] [address] Ines Castro, Community Health Senior Product Development Scientist [address] [place], [place] [id number] 02/15/2024 8:00 AM EDT Office Visit Cardiology, [facility] 132 [place] [address] Casimiro Barraza MD 132 [place] [address] 05/15/2024 1:20 PM EST Office Visit Otolaryngology [facility] 132 [place] [address] George Ferrer PA-C [address] [place] [address] Health Maintenance Due Date Last Done Comments [...] this encounter Medical Devices Implanted Type Area Facepiece Line Supervisor Device Identifier Shelf Expiration Date Model / Serial / Lot Device Watchman Flx 35mm - [id number] Implanted:Qty: 1 on 02/05/2022 by Diamond Teran IV, MD at [facility] [employer] : INTRV CARD [id number] 10/20/2024 [id number] 50 / / [id number] Cath Thermodilution 6fr - [id number] Implanted:Qty: 1 on 07/31/2022 by Franco Mcgregor MD at [facility] [employer] [id number] 04/30/2024 [id number] / / [id number] Mirtaclip G4 - [id number] Implanted:Qty: 1 on 11/16/2022 at [facility] [employer]/20 06/25/2023 [id number] / / [id number] Clip Delivery Sytem G4 Xtw - [id number] Implanted:Qty: 1 on 11/16/2022 at [facility] [employer]/20 [id number] 08/10/2023 [id number] / / [id number] Clip Delivery Sytem G4 Xtw - [id number] Implanted:Qty: 1 on 11/16/2022 at [facility] [employer] [id number] 09/10/2023 [id number] / / [id number] documented as of this encounter Advance [...] Date End Date Benny Waite DO [address] [place] [address] PCP - General Internal Medicine 04/03/21 documented as of this encounter
--- OUTSIDE RECORDS SUMMARY | 2023-12-04 10:17 | External Medical Summary | Summary of Care ---
Author Name Unknown Organization [facility] Address [address] [facility] [place] [address] Phone [phone] Care Team Providers Care Afterschool Babysitter Name Role Phone Benny Waite DO Primary Care Provider [phone] Reason for Visit * Reason Onset Date Comments Home Monitoring Orders Only 11/15/2023 Encounter Details Date Type Department Care Team (Late st Contact Info) Description 11/15/2023 Home Monitoring Family Practice [address] [place] [address] [place] [address] Benny Waite DO 293 [place] [address] DEX (obstructive sleep apnea)* Allergies [...] without results. 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) 04/16/2023 Covid-19, Mrna, Lnp-s, Pf, B ivalent, 30 Mcg, IM, 12 yrs and above ([employer]) 03/17/2022 Pneumococcal Conjugate Vacc, 13 Valent (Prevnar) [...] EDT Patient [place] been [place] the [place] [address] home monitoring program due to program completed. documented in this encounter Plan of Treatment Upcoming Encounters Date Type Department Care Team (Late st Contact Info) Description 11/18/2023 8:30 AM EDT Home Visit [facility] 132 [place] [address] Myrtle Allen RN [address] [place] [address] 12/03/2023 8:30 AM EDT Pharmacy Family Practice [address] [place] [address] 293 [place] [address] College, Pharmacist [address] [place] [address] 12/03/2023 8:40 AM EDT Office Visit Family Practice 65 [facility] 293 [place] [address] Benny Waite, 293 [place] [address] 12/03/2023 3:30 PM EDT Office Visit Interventional Pain Center, [facility] 132 [place] [address] Luann Guerra PA-C [address] [address] 12/13/2023 11:20 AM EDT Office Visit Family Practice 65 [facility] 293 [place] [address] Benny Waite, 293 [place] [address] 12/21/2023 11:00 AM EDT Nurse Only Ancillary 65 [facility] 293 [place] [address] College, Nurse Annual Wellness Visit [address] [place] [address] 01/12/2024 8:30 AM EDT Office Visit Cardiology, [facility] 132 [employer] [place] [address] Franco Mcgregor MD [address] [place] [address] 01/25/2024 1:00 PM EDT [facility]icine [facility] [place], [facility] [address] [employer] [address] Yadira Omalley CRNP 132 [place] [address] Ines Castro, Community Health Reporting Analyst [address] [place] [address] 02/15/2024 8:00 AM EDT Office Visit Cardiology, [facility] [address] [employer] [place] [address] Casimiro Barraza MD 132 [facility] [place] [address] 05/15/2024 1:20 PM EST Office Visit Otolaryngology [facility] [address] [facility] [place] [address] George Ferrer PA-C [address] [place] [address] Health Maintenance Due Date Last Done Comments [...] this encounter Medical Devices Implanted Type Area Display Mechanic Device Identifier Shelf Expiration Date Model / Serial / Lot Device Watchman Flx 35mm - [id number] Implanted:Qty: 1 on 02/05/2022 by Diamond Teran IV, MD at [facility] [employer] : INTRV CARD [id number] 10/20/2024 [id number] 50 / / [id number] Cath Thermodilution 6fr - [id number] Implanted:Qty: 1 on 07/31/2022 by Franco Mcgregor MD at [facility] [facility] [employer] [id number] 04/30/2024 [id number] / / [id number] Mirtaclip G4 - [id number] Implanted:Qty: 1 on 11/16/2022 at [facility] [employer] 06/25/2023 [id number] / / [id number] Clip Delivery Sytem G4 Xtw - [id number] Implanted:Qty: 1 on 11/16/2022 at [facility] [employer] [id number] 08/10/2023 [id number] TW / / [id number] Clip Delivery Sytem G4 Xtw - [id number] Implanted:Qty: 1 on 11/16/2022 at [facility] [employer] [id number] 09/10/2023 [id number] TW / / [id number] documented as of this encounter Visit [...] and were consensually agreed upon. Care Teams Afterschool Babysitter Relationship Specialty Start Date End Date Benny Waite DO 293 [place] [address] PCP - General Internal Medicine 04/03/21 documented as of this encounter
--- OUTSIDE RECORDS SUMMARY | 2023-12-04 10:18 | External Medical Summary | Summary of Care ---
Author Name Unknown Organization [facility] Address [address] [facility] [place] [address] Phone [phone] Care Team Providers Care Client Support Administrator Name Role Phone Benny Waite DO Primary Care Provider [phone] Reason for Visit * Reason Onset Date Comments [facility]: Maintenance 11/11/2023 Encounter Details Date Type Department Care Team (Late st Contact Info) Description 11/11/2023 Telephone [facility], [facility] [address] [facility] [place] [address] [facility], Nurse [facility] [address] [facility] J[place] [id number] [facility]: Maintenance Allergies Active Allergy Reactions Criticality Noted Date Comments Adhesive Tape 02/04/2017 Duloxetine High 07/13/2023 Other Reaction(s): confusion Levofloxacin 09/01/2019 documented as of this encounter (statuses as of 11/11/2023) Medications Medication Sig Dispensed Refills Start Date [...] as of this encounter (statuses as of 11/11/2023) Active Problems Problem Noted Date Diagnosed Date Constipation 10/26/2023 Last Assessment & Plan: New issue. Reports he generally moves his bowels daily. No BM for a week. Some mild abdominal discomfort, he is able to pass gas. No nausea or vomiting. He took a dose of MiraLax and stool softener last night without results. 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 02/05/2022 Permanent atrial fibrillation 12/22/2021 Overview: Added automatically from request for surgery [id number] Last Assessment & Plan: S/p Watchman Current [...] the Comments) Remote Patient Monitoring Vendor: [facility] Device(s): Connected Scale Self [...] as of this encounter (statuses as of 11/11/2023) Resolved Problems Problem Noted Date Diagnosed Date [...] as of this encounter (statuses as of 11/11/2023) Immunizations Name Administration Dates Next Due COVID-19 mRNA, LNP-s, No Pre serve, 2-Dose Series (Moderna) 08/20/2020,07/17/2020 COVID-19 mRNA, LNP-s, No Pre serve, 2-Dose Series (Pfizer) 05/14/2021 COVID-19, LNP-s, No Preserve , Robbie-sucrose, Ages 12+ (Pfizer) 11/04/2021 COVID-19, MRNA-LNP, 23-24, P F, 30 MCG/0.3 mL, 12 YRS AND ABOVE, IM ([facility]) 04/16/2023 Covid-19, Mrna, Lnp-s, Pf, B ivalent, 30 Mcg, IM, 12 yrs and above ([employer]) 03/17/2022 Pneumococcal Conjugate Vacc, 13 Valent (Prevnar) [...] encounter Miscellaneous Notes * Telephone Encounter - Gayla Quinones LPN - 11/11/2023 11:10 AM EDT Images from the original note were not included. [facility] Remote Patient Monitoring Unable to contact patient: Trigger type: Abnormal reading(s): Device(s) Triggered: AMC (Advanced Monitored Caregiving): Pulse Oximeter: Trigger priority per AMC: 85 LMOM to please return call documented in this encounter Plan of Treatment Upcoming Encounters Date Type Department Care Team (Late st Contact Info) Description 11/12/2023 8:00 AM EDT Office Visit Family Practice [address] [place] [address] 293 [place] [address] Benny Waite, 293 [facility], [place] [address] 11/18/2023 8:30 AM EDT [facility] [address] [place] [address] Myrtle Allen RN 132 [facility] [address] 12/03/2023 8:40 AM EDT Office Visit Family Practice [address] [place] [address] 293 [facility], [place] [address] Benny Waite, 293 [place] [address] 12/03/2023 3:30 PM EDT Office Visit Interventional [facility] Center, [facility] [address] [place] [address] Luann Guerra PA-C [address] [place] [address] 12/13/2023 11:20 AM EDT Office Visit [address] 293 [place] [address] Benny Waite, 293 [place] [address] 12/21/2023 11:00 AM EDT Nurse Only Ancillary 65 [facility] 293 [place] [address] College, Nurse Annual Wellness Visit [address] [place] [address] 01/12/2024 8:30 AM EDT Office Visit Cardiology, [facility] 132 [facility] [address] Franco Mcgregor MD [address] [place], [place] [address] 01/25/2024 1:00 PM EDT Telemedicine [facility] [place], [facility] 132 [facility] [place] [address] Yadira Omalley CRNP 132 [facility] [place] [address] Ines Castro, Community Health Operations And Intelligence Assistant [address] [place] [address] 02/15/2024 8:00 AM EDT Office Visit Cardiology, [facility] 132 [facility] [place] [address] Casimiro Barraza MD 132 [facility] [place] [address] 05/15/2024 1:20 PM EST Office Visit Otolaryngology [facility] 132 [facility] [place] [address] George Ferrer PA-C 132 [facility] [place] [address] Health Maintenance Due Date Last Done Comments [...] this encounter Medical Devices Implanted Type Area Refrigerator Tester Device Identifier Shelf Expiration Date Model / Serial / Lot Device Watchman Flx 35mm - [id number] Implanted:Qty: 1 on 02/05/2022 by Diamond Teran IV, MD at [facility] [employer] : INTRV CARD [id number] 10/20/2024 [id number] 50 / / [id number] Cath Thermodilution 6fr - [id number] Implanted:Qty: 1 on 07/31/2022 by Franco Mcgregor MD at [facility] [employer] [id number] 04/30/2024 [id number] / / [id number] Mirtaclip G4 - [id number] Implanted:Qty: 1 on 11/16/2022 at [facility] [employer] 06/25/2023 [id number] / / [id number] Clip Delivery Sytem G4 Xtw - [id number] Implanted:Qty: 1 on 11/16/2022 at [facility] [employer] [id number] 08/10/2023 [id number] TW / / [id number] Clip Delivery Sytem G4 Xtw - [id number] Implanted:Qty: 1 on 11/16/2022 at [facility] [employer] [id number] 09/10/2023 [id number] / / [id number] documented as of this encounter Advance [...] and were consensually agreed upon. Care Teams Client Support Administrator Relationship Specialty Start Date End Date Benny Waite DO 293 [place] [address] PCP - General Internal Medicine 04/03/21 documented as of this encounter
--- OUTSIDE RECORDS SUMMARY | 2023-12-04 10:18 | External Medical Summary | Summary of Care ---
Author Name Unknown Organization [facility] Address [address] [facility] [place] [address] Phone [phone] Care Team Providers Care Paper Hanger Name Role Phone Benny Waite DO Primary Care Provider Reason for Visit * Reason Onset Date Comments [facility]: Maintenance 11/06/2023 Encounter Details Date Type Department Care Team (Late st Contact Info) Description 11/06/2023 9:30 AM EDT Scheduled Telephone [facility], [facility] 132 [facility] [place] [address] [facility], Nurse [facility] 132 [facility] [place] [address] Allergies Active Allergy Reactions Criticality Noted Date Comments Adhesive Tape 02/04/2017 Duloxetine High 07/13/2023 Other Reaction(s): confusion Levofloxacin 09/01/2019 documented as of this encounter (statuses as of 11/06/2023) Medications Medication Sig Dispensed Refills Start Date [...] IN THE EVENING 90 Tablet 10/29/2023 Active documented as of this encounter (statuses as of 11/06/2023) Active Problems Problem Noted Date Diagnosed Date Constipation 10/26/2023 Last Assessment & Plan: New issue. Reports he generally moves his bowels daily. No BM for a week. Some mild abdominal discomfort, he is able to pass gas. No nausea or vomiting. He took a dose of MiraLax and stool softener last night without results. 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 02/05/2022 Permanent atrial fibrillation 12/22/2021 Overview: Added automatically from request for surgery [id number] Last Assessment & Plan: S/p Watchman Current [...] in the Comments) Remote Patient Monitoring Vendor: [facility] Device(s): Connected Scale Self [...] as of this encounter (statuses as of 11/06/2023) Resolved Problems Problem Noted Date Diagnosed Date [...] as of this encounter (statuses as of 11/06/2023) Immunizations Name Administration Dates Next Due COVID-19 mRNA, LNP-s, No Pre serve, 2-Dose Series (Moderna) 08/20/2020,07/17/2020 COVID-19 mRNA, LNP-s, No Pre serve, 2-Dose Series (Pfizer) 05/14/2021 COVID-19, LNP-s, No Preserve , Robbie-sucrose, Ages 12+ (Pfizer) 11/04/2021 COVID-19, MRNA-LNP, 23-24, P F, 30 MCG/0.3 mL, 12 YRS AND ABOVE, IM ([employer]) 04/16/2023 Covid-19, Mrna, Lnp-s, Pf, B ivalent, 30 Mcg, IM, 12 yrs and above (Digabit) 03/17/2022 Pneumococcal Conjugate Vacc, 13 Valent (Prevnar) [...] Answer Date Recorded PHQ Adult Total Score 3 10/12/2023 Hunger Vital Sign Answer Date Recorded Within [...] encounter Miscellaneous Notes * Telephone Encounter - Teresa Hernández RN - 11/06/2023 8:48 AM EDT Images from the original note were not included. Communication Note Name: Nikolas Silvestre Situation: f/u elevated bp, pt called triage 11/04 with elevated bp Background: HF AMC readings Assessment: Feeling at baseline today. Bp is a little better this morning. Denies ill symptoms from baseline yesterday with elevated bp. States he did wear oxygen yesterday as he felt sob and had pain at the bottom of R/ribs--pt states this occurs from time to time at baseline. Per pt at baseline he has dizziness, hazy vision(no changes with elevated bp), constipation with abdominal bloating. Cannot recall any stressful events that would increase bp Pt fills a pill production planner scheduler independently, but does not know his medications. Metoprolol once daily -pt is not uncertain of names of medication, "I just put them in my pill production planner scheduler" Per pt, he thought maybe he missed medication yesterday, but pill slots were empty. Otherwise he states he has been taking his medications daily according to the prescription bottle instructions. Denies chest pain/pressure, increased sob today, cough/congestion, fever/chills, nausea, vomiting, diarrhea. States he is wearing a Zio patch at present time. Last BM 11/04 Weighed yesterday but no weight transmission. Has not weighed yet today--pt stepped on scale during call 220.2 lbs--after 1 cup coffee Denies s/s of worsening HF. Denies pain issues--lower back pain has improved with new Tramadol rx. States he does not have pain today so far. Pt voices upset with call yesterday and repeated questions regarding when/what medications he took that day. States he will not calling the at home nurses again and will call [address] production officer doctor. Pt was agreeable to [facility] RN phone follow up in 1 day to reassess. Recommendation: Continue to monitor bp Take medications as ordered Nurse phone f/u 1 day Call [facility] at with any new or worsening health concerns or problems, red flag symptoms. Call 911 with stroke like symptoms, reviewed with pt. documented in this encounter Plan of Treatment Upcoming Encounters Date Type Department Care Team (Late st Contact Info) Description 11/07/2023 8:30 AM EDT Scheduled Telephone [facility] [place], [address] [place] [address] [facility], Nurse [facility] [address] [place] [address] 11/10/2023 2:20 PM EDT Office Visit Otolaryngology [facility] 132 [facility] [place] [address] George Ferrer PA-C [address] [place] [address] 11/18/2023 8:30 AM EDT [facility], [facility] [place] [address] Myrtle Allen RN [facility] [place] [address] 12/03/2023 8:40 AM EDT Office Visit Family Practice [address] [place] [address] 293 [place] [address] Benny Waite, 293 [facility], [place] [address] 12/03/2023 3:30 PM EDT Office Visit Interventional Pain Center, [facility] 132 [facility] [place] [address] Luann Guerra PA-C 132 [facility] [place] [address] 12/13/2023 11:20 AM EDT Office Visit Family Practice [address] [place] [address] 293 [place] [address] Benny Waite, 293 [facility] [place] [address] 12/21/2023 11:00 AM EDT Nurse Only Ancillary [address] [place] [address] 293 [place] [address] College, Nurse Annual Wellness Visit [address] [facility] 293 [place] [address] 01/12/2024 8:30 AM EDT Office Visit Cardiology, [facility] 132 [place] [address] Franco Mcgregor MD [address] [place] [address] 01/25/2024 1:00 PM EDT [facility]medicine [facility], [facility] 132 [place] [address] Yadira Omalley CRNP 132 [place] [address] Ines Castro, Community Health Stock Selector [address] [place] [address] 02/15/2024 8:00 AM EDT Office Visit Cardiology, [facility] 132 [place] [address] Casimiro Barraza MD 132 [place] [address] Health Maintenance Due Date Last Done Comments COVID-19 Vaccine (2022- season) 2023 04/16/2023, 03/17/2022, 11/04/2021, Additional history exists DTaP,Tdap,and Td Vaccines (2 [...] this encounter Medical Devices Implanted Type Area Food Porter Device Identifier Shelf Expiration Date Model / Serial / Lot Device Watchman Flx 35mm - [id number] Implanted:Qty: 1 on 02/05/2022 by Diamond Teran IV, [place] at [facility] [employer] : INTRV CARD [id number] 10/20/2024 [id number] 50 / / [id number] Cath Thermodilution 6fr - [id number] Implanted:Qty: 1 on 07/31/2022 by Franco Mcgregor MD at [facility] [employer] [id number] 04/30/2024 [id number] / / [id number] Mirtaclip G4 - [id number] Implanted:Qty: 1 on 11/16/2022 at [facility] [employer] 06/25/2023 [id number] / / [id number] Clip Delivery Sytem G4 Xtw - [id number] Implanted:Qty: 1 on 11/16/2022 at [facility] [employer] [id number] 08/10/2023 [id number] / / [id number] Clip Delivery Sytem G4 Xtw - [id number] Implanted:Qty: 1 on 11/16/2022 at [facility] [employer] [id number] 09/10/2023 [id number] / / [id number] documented as of this encounter Advance [...] and were consensually agreed upon. Care Teams Paper Hanger Relationship Specialty Start Date End Date Benny Waite DO 293 [place] [address] PCP - General Internal Medicine 04/03/21 documented as of this encounter
--- OUTSIDE RECORDS SUMMARY | 2023-12-04 10:18 | External Medical Summary | Summary of Care ---
Author Name Unknown Organization [facility] Address [address] [place] [place] [address] Phone [phone] Care Team Providers Care Hvac Lead Name Role Phone Benny Waite DO Primary Care Provider Reason for Visit * Reason Onset Date Comments Information 11/09/2023 Encounter Details Date Type Department Care Team (Late st Contact Info) Description 11/09/2023 Telephone Family Practice [address], [place] 293 [place] [address] Benny Waite DO 293 [place] [address] Information Allergies Active Allergy Reactions Criticality Noted Date Comments Adhesive Tape 02/04/2017 Duloxetine High 07/13/2023 Other Reaction(s): confusion Levofloxacin 09/01/2019 documented as of this encounter (statuses as of 11/09/2023) Medications Medication Sig Dispensed Refills Start Date [...] as of this encounter (statuses as of 11/09/2023) Active Problems Problem Noted Date Diagnosed Date Constipation 10/26/2023 Last Assessment & Plan: New issue. Reports he generally moves his bowels daily. No BM for a week. Some mild abdominal discomfort, he is able to pass gas. No nausea or vomiting. He took a dose of MiraLax and stool softener last night without results. 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 02/05/2022 Permanent atrial fibrillation 12/22/2021 Overview: Added automatically from request for surgery [id number] Last Assessment & Plan: S/p Watchman Current [...] as of this encounter (statuses as of 11/09/2023) Resolved Problems Problem Noted Date Diagnosed Date [...] as of this encounter (statuses as of 11/09/2023) Immunizations Name Administration Dates Next Due COVID-19 mRNA, LNP-s, No Pre serve, 2-Dose Series (Moderna) 08/20/2020,07/17/2020 COVID-19 mRNA, LNP-s, No Pre serve, 2-Dose Series (Pfizer) 05/14/2021 COVID-19, LNP-s, No Preserve , Robbie-sucrose, Ages 12+ (Pfizer) 11/04/2021 COVID-19, MRNA-LNP, 23-24, P F, 30 MCG/0.3 mL, 12 YRS AND ABOVE, IM ([employer]) 04/16/2023 Covid-19, Mrna, Lnp-s, Pf, B ivalent, 30 Mcg, IM, 12 yrs and above (Everstring) 03/17/2022 Pneumococcal Conjugate Vacc, 13 Valent (Prevnar) [...] Telephone Encounter - Marnie Baker LPN - 11/09/2023 5:04 PM EDT Patient is aware and will comply. Thank you * Telephone Encounter - Benny Waite DO - 11/09/2023 5:02 PM EDT Star Zofran 4 mg three times a day as needed. * Telephone Encounter - Marnie Baker LPN - 11/09/2023 4:02 PM EDT Called, complaining of upset stomach and slight headache. States when in this morning did take one tylenol as directed. States this did help some. Can he have medication for nausea No vomiting or diarrhea, no fever or chills, is able to eat and drink, no chest pain no sob increased. Please add to nurse call back schedule tomorrow at 1 pm Thank you documented in this encounter Plan of Treatment Upcoming Encounters Date Type Department Care Team (Late st Contact Info) Description 11/10/2023 2:20 PM EDT Office Visit Otolaryngology [facility] [address] [place] [address] George Ferrer PA-C 132 [place] [address] 11/12/2023 8:00 AM EDT Office Visit Family Practice [address] [place] [address] 293 [place] [address] Benny Waite DO 293 [facility], [place] [address] 11/18/2023 8:30 AM EDT Home Visit juan pablo at [facility] 132 [place] [address] Myrtle Allen, RN [address] [place] [address] 12/03/2023 8:40 AM EDT Office Visit Family Practice 65 [facility] 293 [place] [phone] Benny Waite, DO 293 [place] [address] 12/03/2023 3:30 PM EDT Office Visit Interventional Pain Center, [facility] 132 [place] [address] Luann Guerra PA-C 132 [place] [address] 12/13/2023 11:20 AM EDT Office Visit Family Practice 65 [facility] 293 [place] [address] Benny Waite, DO 293 [place] [address] 12/21/2023 11:00 AM EDT Nurse Only Ancillary [address] [place] [address] College, Nurse Annual Wellness Visit [address] [address] 01/12/2024 8:30 AM EDT Office Visit Cardiology, [facility] 132 [place] [address] Franco Mcgregor MD [address] [place] [address] 01/25/2024 1:00 PM EDT [facility]icine [facility], [facility] 132 [place] [address] Yadira Omalley CRNP 132 [facility] [place] [address] Ines Castro, Community Health Animal Care Specialist [address] [facility] [place] [address] 02/15/2024 8:00 AM EDT Office Visit Cardiology, [facility] [address] [place] [address] Casimiro Barraza MD [address] [place] [address] Health Maintenance Due Date Last Done Comments [...] this encounter Medical Devices Implanted Type Area Licensed Psychologist Manager Device Identifier Shelf Expiration Date Model / Serial / Lot Device Watchman Flx 35mm - [id number] Implanted:Qty: 1 on 02/05/2022 by Diamond Teran IV, [place] [facility] [place] [employer] ! : INTRV CARD [id number] 10/20/2024 [id number] 50 / / [id number] Cath Thermodilution 6fr - [id number] Implanted:Qty: 1 on 07/31/2022 by Franco Mcgregor MD at [facility] [place] [employer] [id number] 04/30/2024 [id number] / / [id number] Mirtaclip G4 - [id number] Implanted:Qty: 1 on 11/16/2022 at [facility] [employer] 06/25/2023 [id number] / / [id number] Clip Delivery Sytem G4 Xtw - [id number] Implanted:Qty: 1 on 11/16/2022 at [facility] [employer] [id number] 08/10/2023 [id number] TW / / [id number] Clip Delivery Sytem G4 Xtw - [id number] Implanted:Qty: 1 on 11/16/2022 at [facility] [employer] [id number] 09/10/2023 [id number] TW / / [id number] documented as of this encounter Visit Diagnoses Diagnosis Nausea- Primary Nausea alone documented in this encounter Advance Directives * [...] and were consensually agreed upon. Care Teams Hvac Lead Relationship Specialty Start Date End Date Benny Waite DO 293 [place] [address] PCP - General Internal Medicine 04/03/21 documented as of this encounter
--- OUTSIDE RECORDS SUMMARY | 2023-12-04 10:18 | External Medical Summary | Summary of Care ---
Author Name Unknown Organization [facility] [address] [facility] [address] Phone [phone] Care Team Providers Care Shank Archer Name Role Phone Benny Waite DO Primary Care Provider [phone] Encounter Details Date Type Department Care Team (Late st Contact Info) Description 11/09/2023 10:00 AM EDT Nurse Only Family Practice 65 [facility] 293 [place] [address] College, Nurse Fam Prac [address] [address] Allergies Active Allergy Reactions Criticality Noted Date [...] night without results. He will go to [facility] for abdominal x-ray today to rule [...] Overview: Added automatically from request for surgery [id number] Last Assessment & Plan: S/p Watchman Current [...] MCG/0.3 mL, 12 YRS AND ABOVE, IM ([employer] [employer]) 04/16/2023 Covid-19, Mrna, Lnp-s, Pf, B ivalent, 30 Mcg, IM, 12 yrs and above ([employer]) 03/17/2022 Pneumococcal Conjugate Vacc, 13 Valent (Prevnar) [...] Sign Reading Time Taken Comments Blood Pressure 128/86 11/09/2023 10:06 AM EDT Pulse 64 11/09/2023 10:06 AM EDT Temperature - - Respiratory Rate - - Oxygen Saturation 92% 11/09/2023 10:06 AM EDT Inhaled Oxygen Concentration - - [...] of this encounter Progress Notes * Benny Waite DO - 11/09/2023 10:52 AM EDT Noted * Marnie Baker LPN - 11/09/2023 10:01 AM EDT Patient in today for bp check, states at home his bp is high. Today states his at home monitor was 159/?, states problems with dizziness and headache. documented in this encounter Plan of Treatment Upcoming Encounters Date Type Department Care Team (Late st Contact Info) Description 11/09/2023 12:15 PM EDT [facility]uled Telephone [facility] [address] [place] [address] Coordinator, [facility] 132 [facility] [place] [address] 11/10/2023 2:20 PM EDT Office Visit Otolaryngology [facility] [address] [place] [address] George Ferrer PA-C [address] [place] [address] 11/18/2023 8:30 AM EDT [facility] Visit [facility] [place], [facility] [address] [place] [address] Myrtle Allen RN [address] [place] [address] 12/03/2023 8:40 AM EDT Office Visit Family Practice [address] [place] [address] 293 [place] [address] Benny Waite DO 293 [facility], [place] [address] 12/03/2023 3:30 PM EDT Office Visit Interventional Pain Center, [facility] 132 [facility] [place] [address] Luann Guerra PA-C 132 [facility] [address] 12/13/2023 11:20 AM EDT Office Visit Family Practice 65 [facility] 293 [place] [address] Benny Waite, 293 [place] [address] 12/21/2023 11:00 AM EDT Nurse Only Ancillary 65 [facility] 293 [place] [address] College, Nurse Annual Wellness Visit [address] [place] [address] 01/12/2024 8:30 AM EDT Office Visit Cardiology, [facility] [address] Franco Mcgregor MD [address] [place] [address] 01/25/2024 1:00 PM EDT Telemedicine [facility] [place], [facility] 132 [facility] [place] [address] Yadira Omalley CRNP 132 [facility] [place] [address] Ines Castro, Community Health Surgical Instrument Repair Specialist [address] [place] [address] 02/15/2024 8:00 AM EDT Office Visit Cardiology, [facility] 132 [facility] [place] [address] Casimiro Barraza MD [address] [place] [address] Health Maintenance Due Date Last Done Comments [...] this encounter Medical Devices Implanted Type Area Machine Adjuster Leader Device Identifier Shelf Expiration Date Model / Serial / Lot Device Watchman Flx 35mm - [id number] Implanted:Qty: 1 on 02/05/2022 by Diamond Teran IV, [place] [facility] [employer] : INTRV CARD [id number] 10/20/2024 [id number] 50 / / [id number] Cath Thermodilution 6fr - [id number] Implanted:Qty: 1 on 07/31/2022 by rFanco Mcgregor MD at [facility] [employer] [id number] 04/30/2024 [id number] / / [id number] Mirtaclip G4 - [id number] Implanted:Qty: 1 on 11/16/2022 [place] [facility] [employer] 06/25/2023 [id number] / / [id number] Clip Delivery Sytem G4 Xtw - [id number] Implanted:Qty: 1 on 11/16/2022 [place] [facility] [employer] [id number] 08/10/2023 [id number] / / [id number] Clip Delivery Sytem G4 Xtw - [id number] Implanted:Qty: 1 on 11/16/2022 at [facility] [employer] [id number] 09/10/2023 [id number] / / [id number] documented as of this encounter Advance [...] and were consensually agreed upon. Care Teams Shank Archer Relationship Specialty Start Date End Date Benny Waite DO [address] [place] [address] PCP - General Internal Medicine 04/03/21 documented as of this encounter
--- OUTSIDE RECORDS SUMMARY | 2023-12-04 10:18 | External Medical Summary | Summary of Care ---
Author Name Unknown Organization [facility] Address [address] [facility] [place] [address] Phone [phone] Care Team Providers Care Lithograph Press Operator Tinware Name Role Phone Benny Waite DO Primary Care Provider [phone] Reason for Visit * Reason Onset Date Comments [facility]: Maintenance 11/06/2023 Encounter Details Date Type Department Care Team (Late st Contact Info) Description 11/06/2023 9:30 AM EDT Scheduled Telephone [facility], [facility] 132 [facility] [place] [address] [facility], Nurse [facility] 132 [facility] [place] [address] Allergies Active Allergy Reactions Criticality Noted Date Comments Adhesive Tape 02/04/2017 Duloxetine High 07/13/2023 Other Reaction(s): confusion Levofloxacin 09/01/2019 documented as of this encounter (statuses as of 11/07/2023) Medications Medication Sig Dispensed Refills Start Date [...] as of this encounter (statuses as of 11/07/2023) Active Problems Problem Noted Date Diagnosed Date Constipation 10/26/2023 Last Assessment & Plan: New issue. Reports he generally moves his bowels daily. No BM for a week. Some mild abdominal discomfort, he is able to pass gas. No nausea or vomiting. He took a dose of MiraLax and stool softener last night without results. 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 02/05/2022 Permanent atrial fibrillation 12/22/2021 Overview: Added automatically from request for surgery [id number] Last Assessment & Plan: S/p Watchman Current [...] in the Comments) Remote Patient Monitoring Vendor[place] [facility] [place] Device(s): Connected Scale Self - Management Plan [...] as of this encounter (statuses as of 11/07/2023) Resolved Problems Problem Noted Date Diagnosed Date [...] as of this encounter (statuses as of 11/07/2023) Immunizations Name Administration Dates Next Due COVID-19 mRNA, LNP-s, No Pre serve, 2-Dose Series (Moderna) 08/20/2020,07/17/2020 COVID-19 mRNA, LNP-s, No Pre serve, 2-Dose Series (Pfizer) 05/14/2021 COVID-19, LNP-s, No Preserve , Robbie-sucrose, Ages 12+ (Pfizer) 11/04/2021 COVID-19, MRNA-LNP, 23-24, P F, 30 MCG/0.3 mL, 12 YRS AND ABOVE, IM ([facility]) 04/16/2023 Covid-19, Mrna, Lnp-s, Pf, B ivalent, 30 Mcg, IM, 12 yrs and above (Groove) 03/17/2022 Pneumococcal Conjugate Vacc, 13 Valent (Prevnar) [...] would increase bp Pt fills a pill corporate meeting planner independently, but does not know his medications. Metoprolol once daily -pt is not uncertain of names of medication, "I just put them in my pill corporate meeting planner" Per pt, he thought maybe he missed [...] nurses again and will call 65 Forward contract negotiation manager doctor. Pt was agreeable to [facility] RN phone follow up in 1 day to reassess. Recommendation: Continue to monitor bp Take medications as ordered Nurse phone f/u 1 day Call [facility] at with any new or worsening health concerns or problems, red flag symptoms. Call 911 with stroke like symptoms, reviewed with pt. documented in this encounter Plan of Treatment Upcoming Encounters Date Type Department Care Team (Late st Contact Info) Description 11/10/2023 2:20 PM EDT Office Visit Otolaryngology [facility] 132 [facility] [place] [address] George Ferrer PA-C [address] [place] [address] 11/18/2023 8:30 AM EDT Home Visit Pat at Home, [facility] [address] [place] [address] Myrtle Allen, RN [address] [place] [address] 12/03/2023 8:40 AM EDT Office Visit Family Practice [address] [place] [address], [place] [phone] Benny Waite, DO 293 [place] [address] 12/03/2023 3:30 PM EDT Office Visit Interventional Pain Center, [facility] [place] [address] Luann Guerra PA-C 132 [facility] [place] [address] 12/13/2023 11:20 AM EDT Office Visit Family Practice [address] [place] [address] 293 [place] [phone] Benny Waite, DO 293 [place] [address] 12/21/2023 11:00 AM EDT Nurse Only Ancillary [address] [place] [address], [place] [address] College, Nurse Annual Wellness Visit [address] [place] [address], [place] [address] 01/12/2024 8:30 AM EDT Office Visit Cardiology, [facility] 132 [facility] [place] [address] Franco Mcgregor MD [address] [place] [address] 01/25/2024 1:00 PM EDT [facility]medicine [facility], [facility] 132 [place] [address] Yadira Omalley CRNP 132 [place] [address] Ines Castro, Community Health Conservation Science Officer [address] [place] [address] 02/15/2024 8:00 AM EDT Office Visit Cardiology, [facility] 132 [place] [address] Casimiro Barraza MD 132 [place] [address] Health Maintenance Due Date Last Done Comments [...] this encounter Medical Devices Implanted Type Area Transmission Worker Device Identifier Shelf Expiration Date Model / Serial / Lot Device Watchman Flx 35mm - [id number] Implanted:Qty: 1 on 02/05/2022 by Diamond Teran IV, [place] [facility] [place] [employer] : INTRV CARD [id number] 10/20/2024 [id number] 50 / / [id number] Cath Thermodilution 6fr - [id number] Implanted:Qty: 1 on 07/31/2022 by Franco Mcgregor MD [place] [facility] [place] [employer] [id number] 04/30/2024 [id number] / / [id number] Mirtaclip G4 - [id number] Implanted:Qty: 1 on 11/16/2022 at [facility] [employer] 06/25/2023 [id number] / / [id number] Clip Delivery Sytem G4 Xtw - [id number] Implanted:Qty: 1 on 11/16/2022 [place] [facility] [employer] [id number] 08/10/2023 [id number] TW / / [id number] Clip Delivery Sytem G4 Xtw - [id number] Implanted:Qty: 1 on 11/16/2022 at [facility] [employer] [id number] 09/10/2023 [id number] / / [id number] documented as of this encounter Advance [...] and were consensually agreed upon. Care Teams Lithograph Press Operator Tinware Relationship Specialty Start Date End Date Benny Waite DO [address] [address] PCP - General Internal Medicine 04/03/21 documented as of this encounter
--- OUTSIDE RECORDS SUMMARY | 2023-12-04 10:18 | External Medical Summary | Summary of Care ---
Author Name Unknown Organization [facility] Address [address] [facility] [place] [address] Phone [phone] Care Team Providers Care Auto Transport Driver Name Role Phone Benny Waite DO Primary Care Provider [phone] Reason for Visit * Reason Onset Date Comments Advice 11/01/2023 Information 11/01/202310/31 Encounter Details Date Type Department Care Team (Late st Contact Info) Description 11/01/2023 Telephone Family Practice 65 [facility] [place] 293 [place] [phone] Benny Waite 293 [place], [place] [id number] Advice; Information (10/31) Allergies Active Allergy Reactions Criticality Noted Date Comments Adhesive Tape 02/04/2017 Duloxetine High 07/13/2023 Other Reaction(s): confusion Levofloxacin 09/01/2019 documented as of this encounter (statuses as of 11/01/2023) Medications Medication Sig Dispensed Refills Start Date [...] as of this encounter (statuses as of 11/01/2023) Active Problems Problem Noted Date Diagnosed Date Constipation 10/26/2023 Last Assessment & Plan: New issue. Reports he generally moves his bowels daily. No BM for a week. Some mild abdominal discomfort, he is able to pass gas. No nausea or vomiting. He took a dose of MiraLax and stool softener last night without results. He will go to 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 02/05/2022 Permanent atrial fibrillation 12/22/2021 Overview: Added automatically from request for surgery [id number] Last Assessment & Plan: S/p Watchman Current [...] in the Comments) Remote Patient Monitoring Vendor: [facility] [place] Device(s): Connected Scale Self - Management Plan [...] as of this encounter (statuses as of 11/01/2023) Resolved Problems Problem Noted Date Diagnosed Date [...] as of this encounter (statuses as of 11/01/2023) Immunizations Name Administration Dates Next Due COVID-19 mRNA, LNP-s, No Pre serve, 2-Dose Series (Moderna) 08/20/2020,07/17/2020 COVID-19 mRNA, LNP-s, No Pre serve, 2-Dose Series (Pfizer) 05/14/2021 COVID-19, LNP-s, No Preserve , Robbie-sucrose, Ages 12+ (Pfizer) 11/04/2021 COVID-19, MRNA-LNP, 23-24, P F, 30 MCG/0.3 mL, 12 YRS AND ABOVE, IM ([facility]) 04/16/2023 Covid-19, Mrna, Lnp-s, Pf, B ivalent, 30 Mcg, IM, 12 yrs and above (Wildfire) 03/17/2022 Pneumococcal Conjugate Vacc, 13 Valent (Prevnar) [...] Telephone Encounter - Macy Carbajal OSA - 11/01/2023 1:20 PM EDT 11/10/2023 14:20 Patient aware * Telephone Encounter - Marnie BakerAMBER - 11/01/2023 1:13 PM EDT Patient is aware and will comply. was ill and recently , please assist with ENT appt. Thank you * Telephone Encounter - Benny Waite DO - 11/01/2023 11:59 AM EDT Reschedule with ENT * Telephone Encounter - Asiya Bliss LPN - 11/01/2023 11:00 AM EDT Call placed to patient. He states the Zio patch is loose. Upon further discussion sounds like the adhesive is intact but the button monitor is not touching his skin. Informed pt that the button does not have adhesive. Pt states it is not flashing orange. Pt also stated he had to cancel appt with Ear/nose dr that was a f/u to his nose bleeds due to his 's illness. He is asking about rescheduling that appt. Please advise - does pt still need appt? Pt would like call back after 1:00 advising if he needs appt. * Telephone Encounter - Macy Carbajal OSA - 11/01/2023 10:49 AM EDT "This is second call with no return call" Please call his * Telephone Encounter - Macy Carbajal OSA - 11/01/2023 8:47 AM EDT Would like one of the Angie to call documented in this encounter Plan of Treatment Upcoming Encounters Date Type Department Care Team (Late st Contact Info) Description 11/10/2023 2:20 PM EDT Office Visit Otolaryngology [facility] [address] [place] [address] George Ferrer PA-C 132 [place] [address] 11/18/2023 8:30 AM EDT Home Visit Pat at Home, [facility] 132 [place] [address] Myrtle Allen RN [address] [place] [address] 12/03/2023 8:40 AM EDT Office Visit Family Practice [address] [place] [address] 293 [facility], [place] [phone] Benny Waite, 293 [facility], [place] [address] 12/03/2023 3:30 PM EDT Office Visit Interventional Pain Center, [facility] [address] [place] [address] Luann Guerra PA-C [address] [place] [address] 12/13/2023 11:20 AM EDT Office Visit Family Practice 65 [facility] 293 [place] [address] Benny Waite, 293 [place] [address] 12/21/2023 11:00 AM EDT Nurse Only Ancillary 65 [facility] 293 [facility], [place] [address] College, Nurse Annual Wellness Visit [address] [place] [address] 01/12/2024 8:30 AM EDT Office Visit Cardiology, [facility] 132 [place] [address] Franco Mcgregor MD [address] [place] [address] 01/25/2024 1:00 PM EDT Telemedicine [facility], [facility] 132 [place] [address] Yadira Omalley CRNP 132 [place] [address] Ines Castro, Community Health Data Warehousing Manager [address] [place] [address] 02/15/2024 8:00 AM EDT Office Visit Cardiology, [facility] 132 [place] [address] Casimiro Barraza MD 132 [place] [address] Health Maintenance Due Date Last Done Comments [...] this encounter Medical Devices Implanted Type Area Dormitory Maid Device Identifier Shelf Expiration Date Model / Serial / Lot Device Watchman Flx 35mm - [id number] Implanted:Qty: 1 on 02/05/2022 by Diamond Teran IV, [place] at [facility] [place] [employer] : INTRV CARD [id number] 10/20/2024 [id number] 50 / / [id number] Cath Thermodilution 6fr - [id number] Implanted:Qty: 1 on 07/31/2022 by Franco Mcgregor MD at [facility] [employer] [id number] 04/30/2024 [id number] / / [id number] Mirtaclip G4 - [id number] Implanted:Qty: 1 on 11/16/2022 at [facility] [employer] [facility] 06/25/2023 [id number] / / [id number] Clip Delivery Sytem G4 Xtw - [id number] Implanted:Qty: 1 on 11/16/2022 at [facility] [employer] [id number] 08/10/2023 [id number] TW / / [id number] Clip Delivery Sytem G4 Xtw - [id number] Implanted:Qty: 1 on 11/16/2022 at [facility] [employer] [id number] 09/10/2023 [id number] / / [id number] documented as of this encounter Advance [...] and were consensually agreed upon. Care Teams Auto Transport Driver Relationship Specialty Start Date End Date Benny Waite DO [address] [place] [address] PCP - General Internal Medicine 04/03/21 documented as of this encounter
--- OUTSIDE RECORDS SUMMARY | 2023-12-04 10:18 | External Medical Summary | Summary of Care ---
Author Name Unknown Organization [facility] Address [address] [facility] [place] [address] Phone [phone] Care Team Providers Care Dial Marker Name Role Phone Benny Waite DO Primary Care Provider [phone] Reason for Visit * Reason Onset Date Comments [facility]: Maintenance 11/04/2023 Encounter Details Date Type Department Care Team (Late st Contact Info) Description 11/04/2023 Telephone [facility], [place] [address] [place] [address] [facility], Nurse [facility] [address] [place] [address] [facility]: Maintenance Allergies Active Allergy Reactions Criticality Noted Date Comments Adhesive Tape 02/04/2017 Duloxetine High 07/13/2023 Other Reaction(s): confusion Levofloxacin 09/01/2019 documented as of this encounter (statuses as of 11/04/2023) Medications Medication Sig Dispensed Refills Start Date [...] as of this encounter (statuses as of 11/04/2023) Active Problems Problem Noted Date Diagnosed Date Constipation 10/26/2023 Last Assessment & Plan: New issue. Reports he generally moves his bowels daily. No BM for a week. Some mild abdominal discomfort, he is able to pass gas. No nausea or vomiting. He took a dose of MiraLax and stool softener last night without results. 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 02/05/2022 Permanent atrial fibrillation 12/22/2021 Overview: Added automatically from request for surgery [id number] Last Assessment & Plan: S/p Watchman Current [...] in the Comments) Remote Patient Monitoring Vendor: [facility] [place] Device(s): Connected Scale Self - Management Plan [...] as of this encounter (statuses as of 11/04/2023) Resolved Problems Problem Noted Date Diagnosed Date [...] as of this encounter (statuses as of 11/04/2023) Immunizations Name Administration Dates Next Due COVID-19 mRNA, LNP-s, No Pre serve, 2-Dose Series (Moderna) 08/20/2020,07/17/2020 COVID-19 mRNA, LNP-s, No Pre serve, 2-Dose Series (Pfizer) 05/14/2021 COVID-19, LNP-s, No Preserve , Robbie-sucrose, Ages 12+ (Pfizer) 11/04/2021 COVID-19, MRNA-LNP, 23-24, P F, 30 MCG/0.3 mL, 12 YRS AND ABOVE, IM ([facility]) 04/16/2023 Covid-19, Mrna, Lnp-s, Pf, B ivalent, 30 Mcg, IM, 12 yrs and above (Real Life Plus) 03/17/2022 Pneumococcal Conjugate Vacc, 13 Valent (Prevnar) [...] Telephone Encounter - Agatha Reddy LPN - 11/04/2023 12:24 PM EDT Images from the original note were not included. [facility] Remote Patient Monitoring Able to contact patient: Trigger type: Abnormal reading(s): AMC (Advanced Monitored Caregiving): Scale: Trigger weight: 222.9 lbs; weight increased 3.1 lbs in 1 day(s) Symptom review: None Diet Reviewed: N/A Fluid Intake Reviewed: N/A Self-Management Plan Reviewed: Red Flags: None listed Risk assignment recommendation: Moderate risk findings (check as applicable): [x] Moderate trigger priority on AMC [] Confirmed tympanic equivalent temperature 100.4-101.9 F onehour post administration of antipyretic [x] Weight gain of 2.1-4.9 lbs over 1-2 days [] Confirmed new sustained resting HR greater than 105WITHOUT symptoms [] Weight gain of greater than [...] Additional risk selection justification: Spoke to patient denies any issues of increased SOB or edema last BM yesterday taking stool softners will call with any issues Taking furosemide 20mg daily Overall risk and identified plan: Moderate risk: Route to RNCM (Registered Nurse Sales Representatives) and Advance Practitioner documented in this encounter Plan of Treatment Upcoming Encounters Date Type Department Care Team (Late st Contact Info) Description 11/10/2023 2:20 PM EDT Office Visit Otolaryngology [facility] 132 [facility] [place] [address] George Ferrer PA-C [address] [place] [address] 11/18/2023 8:30 AM EDT Home Visit [facility], [facility] [address] [place] [address] Myrtle Allen, RN [address] [place] [address] 12/03/2023 8:40 AM EDT Office Visit Family Practice [address] [place] [address] 293 [place] [address] Benny Waite, DO 293 [place] [address] 12/03/2023 3:30 PM EDT Office Visit Interventional Pain Center, [facility] [place] [address] Luann Guerra PA-C [address] [place] [address] 12/13/2023 11:20 AM EDT Office Visit Family Practice [address] [place] [address] 293 [facility], [place] [address] Benny Waite, DO 293 [place] [address] 12/21/2023 11:00 AM EDT Nurse Only Ancillary [address] [place] [address] 293 [facility], [place] [address] College, Nurse Annual Wellness Visit [address] [place] [address] 01/12/2024 8:30 AM EDT Office Visit Cardiology, [facility] 132 [place] [address] Franco Mcgregor MD [address] [place] [address] 01/25/2024 1:00 PM EDT Telemedicine [facility], [facility] 132 [place] [address] Yadira Omalley CRNP 132 [facility] [place] [address] Ines Castro, Community Health Network Solutions Architect [address] [place], [place] [id number] 02/15/2024 8:00 AM EDT Office Visit Cardiology, [facility] 132 [place] [address] Casimiro Braraza MD 132 [place] [address] Health Maintenance Due Date Last Done Comments [...] this encounter Medical Devices Implanted Type Area Lean Manufacturing Coordinator Device Identifier Shelf Expiration Date Model / Serial / Lot Device Watchman Flx 35mm - [id number] Implanted:Qty: 1 on 02/05/2022 by Diamond Teran IV, [place] [facility] [place] [employer] : INTRV CARD [id number] 10/20/2024 [id number] / / [id number] Cath Thermodilution 6fr - [id number] Implanted:Qty: 1 on 07/31/2022 by Franco Mcgregor MD at [facility] [place] [employer] [id number] 04/30/2024 [id number] / / [id number] Mirtaclip G4 - [id number] Implanted:Qty: 1 on 11/16/2022 at [facility] [place] [employer] 06/25/2023 [id number] / / [id number] Clip Delivery Sytem G4 Xtw - [id number] Implanted:Qty: 1 on 11/16/2022 at [facility] [place] [employer] [id number] 08/10/2023 [id number] / / [id number] Clip Delivery Sytem G4 Xtw - [id number] Implanted:Qty: 1 on 11/16/2022 at [facility] [place] [employer] [id number] 09/10/2023 [id number] / / [id number] documented as of this encounter Advance [...] and were consensually agreed upon. Care Teams Dial Marker Relationship Specialty Start Date End Date Benny Waite DO [address] [facility] [place] [address] PCP - General Internal Medicine 04/03/21 documented as of this encounter
--- OUTSIDE RECORDS SUMMARY | 2023-12-04 10:18 | External Medical Summary | Summary of Care ---
Author Name Unknown Organization [facility] Address [address] [place] [facility] [place] [place] [address] Phone [phone] Care Team Providers Care Change Director Name Role Phone Benny Waite DO Primary Care Provider [phone] Reason for Visit * Reason Onset Date Comments Returning Call 11/09/2023 Phone call Encounter Details Date Type Department Care Team (Late st Contact Info) Description 11/09/2023 Telephone Family Practice [address] [place] [address] [place] [phone] Benny Waite DO 293 [place] [address] Returning Call (Phone call) Allergies Active Allergy Reactions Criticality Noted Date [...] He will go to [facility] for abdominal x-ray today to rule out [...] MVR (mitral valve repair) 11/16/2022 Atherosclerosis of [place] co 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 pectoris 08/11/2022 Severe tricuspid regurgitation 08/11/2022 Gout, arthropathy 07/20/2022 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 * Telephone Encounter - Marnie Baker LPN - 11/09/2023 12:44 PM EDT States he is feeling better now, did take one tylenol and a mecizine. * Telephone Encounter - Macy Carbajal OSA - 11/09/2023 12:02 PM EDT Left message on donor recruiter phone Wants Marnie to call him documented in this encounter Plan of Treatment Upcoming Encounters Date Type Department Care Team (Late st Contact Info) Description 11/10/2023 2:20 PM EDT Office Visit Otolaryngology [facility] [address] [address] George Ferrer PA-C 132 [facility] [place] [address] 11/18/2023 8:30 AM EDT Home Visit [facility] at [facility] 132 [place] [address] Myrtle Allen RN [address] [place] [address] 12/03/2023 8:40 AM EDT Office Visit Family Practice [address] [place] [address] 293 [facility], [place] [address] Benny Waite, 293 [place] [address] 12/03/2023 3:30 PM EDT Office Visit Interventional Pain Center, [facility] 132 [place] [address] Luann Guerra PA-C [address] [place] [address] 12/13/2023 11:20 AM EDT Office Visit Family Practice 65 [facility] 293 [place] [address] Benny Waite, 293 [place] [address] 12/21/2023 11:00 AM EDT Nurse Only Ancillary 65 [facility] [address] [place] [address] College, Nurse Annual Wellness Visit [address] [address] 01/12/2024 8:30 AM EDT [facility] 132 [place] [address] Franco Mcgregor MD [address] [place] [address] 01/25/2024 1:00 PM EDT [facility]medicine [facility], [facility] 132 [place] [address] Yadira Omalely CRNP 132 [place] [address] Ines Castro, Community Health Director [employer] [address] [place], [place] [id number] 02/15/2024 8:00 AM EDT Office Visit Cardiology, [facility] 132 [place] [address] Casimiro Barraza MD 132 [facility] [place] [address] Health Maintenance Due Date Last Done Comments [...] this encounter Medical Devices Implanted Type Area Auto Damage Adjuster Device Identifier Shelf Expiration Date Model / Serial / Lot Device Watchman Flx 35mm - [id number] Implanted:Qty: 1 on 02/05/2022 by Diamond Teran IV, [place] [facility] [place] [employer] : INTRV CARD [id number] 10/20/2024 [id number] 50 / / [id number] Cath Thermodilution 6fr - [id number] Implanted:Qty: 1 on 07/31/2022 by Franco Mcgregor MD [place] [facility] [place] [employer] [id number] 04/30/2024 [id number] / / [id number] Mirtaclip G4 - [id number] Implanted:Qty: 1 on 11/16/2022 at [facility] [employer] 06/25/2023 [id number] / / [id number] Clip Delivery Sytem G4 Xtw - [id number] Implanted:Qty: 1 on 11/16/2022 at [facility] [employer] [id number] 08/10/2023 [id number] TW / / [id number] Clip Delivery Sytem G4 Xtw - [id number] Implanted:Qty: 1 on 11/16/2022 at [facility] [employer] [id number] 09/10/2023 [id number] TW / / [id number] documented as of this encounter Advance [...] and were consensually agreed upon. Care Teams Change Director Relationship Specialty Start Date End Date Benny Waite DO 293 [place] [address] PCP - General Internal Medicine 04/03/21 documented as of this encounter
--- OUTSIDE RECORDS SUMMARY | 2023-12-04 10:18 | External Medical Summary | Summary of Care ---
Author Name Unknown Organization [facility] Address [address] [facility] [place] [address] Phone [phone] Care Team Providers Care Technology Lead Name Role Phone Benny Waite DO Primary Care Provider [phone] Reason for Visit * Reason Onset Date Comments [facility]: Maintenance 11/06/2023 Encounter Details Date Type Department Care Team (Late st Contact Info) Description 11/06/2023 9:30 AM EDT Scheduled Telephone [facility], [facility] 132 [facility] [place] [address] [facility], Nurse [facility] 132 [facility] [place] [address] Allergies Active Allergy Reactions Criticality Noted Date [...] night without results. 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) 04/16/2023 Covid-19, Mrna, Lnp-s, Pf, B ivalent, 30 Mcg, IM, 12 yrs and above ([employer]) 03/17/2022 Pneumococcal Conjugate Vacc, 13 Valent (Prevnar) [...] would increase bp Pt fills a pill transit planner independently, but does not know his medications. Metoprolol once daily -pt is not uncertain of names of medication, "I just put them in my pill transit planner" Per pt, he thought maybe he [...] nurses again and will call [address] aws solution architect doctor. Pt was agreeable to [facility] RN phone follow up in 1 day to reassess. Recommendation: Continue to monitor bp Take medications as ordered Nurse phone f/u 1 day Call [facility] at with any new or worsening health concerns or problems, red flag symptoms. Call 911 with stroke like symptoms, reviewed with pt. documented in this encounter Plan of Treatment Upcoming Encounters Date Type Department Care Team (Late st Contact Info) Description 11/07/2023 8:30 AM EDT Scheduled Telephone [facility] at [facility], [address] [place] [address] [facility], Nurse [facility] [address] [place] [address] 11/10/2023 2:20 PM EDT Office Visit Otolaryngology [facility] 132 [facility] [place] [address] George Ferrer PA-C [address] [facility] [place] [address] 11/18/2023 8:30 AM EDT [facility] Visit [facility], [facility] [place] [address] Myrtle Allen RN [facility] [place] [address] 12/03/2023 8:40 AM EDT Office Visit Family Practice [address] [place] [address] 293 [facility] [place] [address] Benny Waite, 293 [facility], [place] [address] 12/03/2023 3:30 PM EDT Office Visit Interventional Pain Center, [facility] 132 [facility] [place] [address] Luann Guerra PA-C 132 [facility] [place] [address] 12/13/2023 11:20 AM EDT Office Visit Family Practice [address] [place] [address] 293 [facility] [place] [phone] Benny Waite, 293 [place] [address] 12/21/2023 11:00 AM EDT Nurse Only Ancillary [address] [place] [address] 293 [place] [address] College, Nurse Annual Wellness Visit [address] [facility] 293 [place] [address] 01/12/2024 8:30 AM EDT Office Visit Cardiology, [facility] 132 [place] [address] Franco Mcgregor MD [address] [place] [address] 01/25/2024 1:00 PM EDT Telemedicine [facility], [facility] 132 [place] [address] Yadira Omalley CRNP 132 [place] [address] Ines Castro, Community Health Patent Attorney [address] [place] [address] 02/15/2024 8:00 AM EDT Office Visit Cardiology, [facility] 132 [place] [address] Casimiro Barraza MD 132 [place] [address] Health Maintenance Due Date Last Done Comments [...] this encounter Medical Devices Implanted Type Area Cost Control Specialist Device Identifier Shelf Expiration Date Model / Serial / Lot Device Watchman Flx 35mm - [id number] Implanted:Qty: 1 on 02/05/2022 by Diamond Teran IV, MD at [facility] [place] [employer] : INTRV CARD [id number] 10/20/2024 [id number] 50 / / [id number] Cath Thermodilution 6fr - [id number] Implanted:Qty: 1 on 07/31/2022 by Franco Mcgregor MD at [facility] [place] [employer] [id number] 04/30/2024 [id number] / / [id number] Mirtaclip G4 - [id number] Implanted:Qty: 1 on 11/16/2022 at [facility] [place] [employer] 06/25/2023 [id number] / / [id number] Clip Delivery Sytem G4 Xtw - [id number] Implanted:Qty: 1 on 11/16/2022 at [facility] [place] [employer] [id number] 08/10/2023 [id number] TW / / [id number] Clip Delivery Sytem G4 Xtw - [id number] Implanted:Qty: 1 on 11/16/2022 at [facility] [place] [employer] [id number] 09/10/2023 [id number] TW / / [id number] documented as of this encounter Advance [...] and were consensually agreed upon. Care Teams Technology Lead Relationship Specialty Start Date End Date Benny Waite DO 293 [place] [address] PCP - General Internal Medicine 04/03/21 documented as of this encounter
--- OUTSIDE RECORDS SUMMARY | 2023-12-04 10:18 | External Medical Summary | Summary of Care ---
Author Name Unknown Organization [facility] Address [address] [facility] [place] [address] Phone [phone] Care Team Providers Care Clinical Geneticist Name Role Phone Benny Waite DO Primary Care Provider [phone] Reason for Visit * Reason Onset Date Comments [facility]: Maintenance 11/07/2023 Encounter Details Date Type Department Care Team (Late st Contact Info) Description 11/07/2023 8:30 AM EDT Scheduled Telephone [facility], [facility] 132 [facility] [place] [address] [facility], Nurse [facility] 132 [facility] [place] [address] Allergies Active Allergy Reactions Criticality Noted Date [...] without results. He will go to 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 02/05/2022 Permanent atrial fibrillation 12/22/2021 Overview: Added automatically from request for surgery [id number] Last Assessment & Plan: S/p Watchman Current [...] the Comments) Remote Patient Monitoring Vendor: [facility] Device(s): Connected Scale [...] MCG/0.3 mL, 12 YRS AND ABOVE, IM ([facility]) 04/16/2023 Covid-19, Mrna, Lnp-s, Pf, B ivalent, 30 Mcg, IM, 12 yrs and above ([employer]) 03/17/2022 Pneumococcal Conjugate Vacc, 13 Valent (Prevnar) [...] Telephone Encounter - Ines Coates RN - 11/07/2023 10:23 AM EDT Images from the original note were not included. [facility] Telephonic Nurse Follow-Up Call [facility] Subprogram: Focused Care Management (3-9 months) Follow Up Call Type: Weekend Call Acute issue requiring follow-up call: Other: blood pressure readings Objective: 10/29/2023 7:59 AM 10/26/2023 11:19 AM 10/14/2023 8:51 AM 10/12/2023 8:55 AM 10/12/2023 8:50 AM VITALS ACROSS ENCOUNTERS BP 118/58 120/60 124/64 Pulse 64 66 72 88 95 Weight 102 kg 98.2 kg BMI 34.95 BMI 34.95 kg/m2 33.66 kg/m2 Remote Patient Monitoring: [facility] Scale: see below [facility] Blood Pressure Cuff: see below [facility] Pulse Ox: see below Oxygen Needs: NO supplemental oxygen needs identified DME Needs: NO DME needs identified Medications: No medication or dose adjustments made during acute episode Subjective: Condition Status: Symptoms resolved and back to baseline Current Concerns: call to follow up on elevated blood pressure on 11/05/23. Per [facility] readings, bp back to baseline. Spoke to pt who reports that he is feeling much better and back to baseline. Concerned about why bp spiked. Unsure if he missed bp pill in med box. Instructed to continue taking his regular meds as ordered and checking his blood pressure, wts daily and we will continue to monitor. Call got cuff off prior to providing instruction on HTN management. Attempted to call back. No answer. No vm. Will continue to monitor [facility]. Disposition: Issue resolved. All appropriate follow up scheduled. Future Visits Scheduled: Future Appointments-next 60 days Date/Time Provider Specialty Dept Phone 11/10/2023 2:20 PM (Arrive by 2:05 PM) George Ferrer PA-C Otolaryngology [phone] 11/18/2023 8:30 AM Myrtle Allen RN [facility] [phone] 12/03/2023 8:40 AM (Arrive by 8:25 AM) Benny Waite DO Family Medicine [phone] 12/03/2023 3:30 PM (Arrive by 3:15 PM) Luann Guerra PA-C Pain Medicine [phone] 12/13/2023 11:20 AM (Arrive by 11:05 AM) Benny Waite DO Family Medicine [phone] 12/21/2023 11:00 AM College, Nurse Annual Wellness Visit [address] [place] [address] 01/12/2024 8:30 AM (Arrive by 8:15 AM) Franco Mcgregor MD Cardiology [phone] 01/25/2024 1:00 PM Ines Castro, Community Health Collaborating Supervising Physician; Shahram Yadira L, [facility] [phone] 02/15/2024 8:00 AM (Arrive by 7:45 AM) Casimiro Barraza MD Cardiology [phone] Ines Coates, RN documented in this encounter Plan of Treatment Upcoming Encounters Date Type Department Care Team (Late st Contact Info) Description 11/10/2023 2:20 PM EDT Office Visit Otolaryngology [facility] [address] [place] [address] George Ferrer PA-C [address] [place] [address] 11/18/2023 8:30 AM EDT Home Visit Pat at [facility] [address] [address] Myrtle Allen, RN [address] [place] [address] 12/03/2023 8:40 AM EDT Office Visit Family Practice [address] [place] [address] 293 [facility] [place] [place] [address] Benny Waite, 293 [place] [address] 12/03/2023 3:30 PM EDT Office Visit Interventional Pain Center, [facility] [address] [place] [address] Luann Guerra PA-C 132 [facility] [place] [address] 12/13/2023 11:20 AM EDT Office Visit Family Practice 65 [facility] 293 [facility] [place] [address] Benny Waite, DO 293 [place] [address] 12/21/2023 11:00 AM EDT Nurse Only Ancillary 65 [facility] 293 [facility] [place] [place] [address] College, Nurse Annual Wellness Visit [address] [place] [address] 01/12/2024 8:30 AM EDT Office Visit Cardiology, [facility] 132 [place] [address] Franco Mcgregor MD [address] [place] [address] 01/25/2024 1:00 PM EDT Telemedicine [facility], [facility] 132 [place] [place] [address] Yadira Omalley CRNP 132 [facility] [place] [address] Ines Castro, Community Health Collaborating Supervising Physician [address] [place] [address] 02/15/2024 8:00 AM EDT Office Visit Cardiology, [facility] 132 [facility] [place] [address] Casimiro Braraza MD 132 [facility] [place] [address] Health Maintenance Due Date Last Done Comments [...] this encounter Medical Devices Implanted Type Area Screen Tacker Device Identifier Shelf Expiration Date Model / Serial / Lot Device Watchman Flx 35mm - [id number] Implanted:Qty: 1 on 02/05/2022 by Diamond Teran IV, MD at [facility] [place] [employer] : INTRV CARD [id number] 10/20/2024 [id number] 50 / / [id number] Cath Thermodilution 6fr - [id number] Implanted:Qty: 1 on 07/31/2022 by Franco Mcgregor MD at [facility] [place] [employer] [id number] 04/30/2024 [id number] / / [id number] Mirtaclip G4 - [id number] Implanted:Qty: 1 on 11/16/2022 at [facility] [employer] 06/25/2023 [id number] / / [id number] Clip Delivery Sytem G4 Xtw - [id number] Implanted:Qty: 1 on 11/16/2022 at [facility] [employer] [id number] 08/10/2023 [id number]-C TW / / [id number] Clip Delivery Sytem G4 Xtw - [id number] Implanted:Qty: 1 on 11/16/2022 at [facility] [employer] [id number] 09/10/2023 [id number] TW / / [id number] documented as of this encounter Advance [...] and were consensually agreed upon. Care Teams Clinical Geneticist Relationship Specialty Start Date End Date Benny Waite DO 293 [place] [address] PCP - General Internal Medicine 04/03/21 documented as of this encounter
--- OUTSIDE RECORDS SUMMARY | 2023-12-04 10:18 | External Medical Summary | Summary of Care ---
Author Name Unknown Organization [facility] Address [address] [facility] [place] [address] Phone [phone] Care Team Providers Care Pathologist Assistant Name Role Phone Benny Waite DO Primary Care Provider Reason for Visit * Reason Onset Date Comments [facility]: Maintenance 11/12/2023 Encounter Details Date Type Department Care Team (Late st Contact Info) Description 11/12/2023 Telephone [facility], [facility] [address] [facility] [place] [address] [facility], Nurse [facility] [address] [facility] [place] [id number] [facility]: Maintenance Allergies Active Allergy [...] night without results. 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) 04/16/2023 Covid-19, Mrna, Lnp-s, Pf, B ivalent, 30 Mcg, IM, 12 yrs and above ([employer]) 03/17/2022 Pneumococcal Conjugate Vacc, 13 Valent (Prevnar) [...] Home Visit [facility], [facility] [address] [place] [address] Myrtle Allen RN [address] [place] [address] 12/03/2023 8:40 AM EDT Office Visit Family Practice [address] [place] [address] 293 [facility] [place] [address] Benny Waite, 293 [facility] [address] 12/03/2023 3:30 PM EDT Office Visit Interventional Pain Center, [facility] [address] [place] [address] Luann Guerra PA-C 132 [facility] [address] 12/13/2023 11:20 AM EDT Office Visit Family Practice 65 [facility] 293 [facility] [address] Benny Waite, 293 [facility] [address] 12/21/2023 11:00 AM EDT Nurse Only Ancillary 65 [facility] 293 [facility] [address] College, Nurse Annual Wellness Visit [address] [employer] 293 [facility] [address] 01/12/2024 8:30 AM EDT Office Visit Cardiology, [facility] 132 [facility] [address] Franco Mcgregor MD [address] [place] [address] 01/25/2024 1:00 PM EDT Telemedicine [facility], [facility] 132 [place] [address] Yadira Omalley CRNP 132 [place] [address] Ines Castro, Community Health Refuge Manager [address] [place] [address] 02/15/2024 8:00 AM EDT Office Visit Cardiology, [facility] 132 [place] [address] Casimiro Barraza MD 132 [place] [address] 05/15/2024 1:20 PM EST Office Visit Otolaryngology [facility] 132 [place] [address] George Ferrer PA-C 132 [place] [address] Health Maintenance Due Date Last Done Comments [...] this encounter Medical Devices Implanted Type Area Heart Nurse Device Identifier Shelf Expiration Date Model / Serial / Lot Device Watchman Flx 35mm - [id number] Implanted:Qty: 1 on 02/05/2022 by Diamond Teran IV, MD at [facility] [place] [employer] : INTRV CARD [id number] 10/20/2024 [id number] 50 / / [id number] Cath Thermodilution 6fr - [id number] Implanted:Qty: 1 on 07/31/2022 by Franco Mcgregor MD at [facility] [employer] [id number] 04/30/2024 [id number] / / [id number] Mirtaclip G4 - [id number] Implanted:Qty: 1 on 11/16/2022 at [facility] [employer] 06/25/2023 [id number] / / [id number] Clip Delivery Sytem G4 Xtw - [id number] Implanted:Qty: 1 on 11/16/2022 at [facility] [employer] [id number] 08/10/2023 [id number] TW / / [id number] Clip Delivery Sytem G4 Xtw - [id number] Implanted:Qty: 1 on 11/16/2022 at [facility] [employer] [id number] 09/10/2023 [id number] TW / / [id number] documented as of this encounter Advance [...] and were consensually agreed upon. Care Teams Pathologist Assistant Relationship Specialty Start Date End Date Benny Waite DO 293 [place] [address] PCP - General Internal Medicine 04/03/21 documented as of this encounter
--- OUTSIDE RECORDS SUMMARY | 2023-12-04 10:18 | External Medical Summary | Summary of Care ---
Author Name Unknown Organization [facility] Address [address] [facility] [place] [address] Phone [phone] Care Team Providers Care Traffic Sign Erection Supervisor Name Role Phone Benny Waite DO Primary Care Provider [phone] Reason for Visit * Reason Onset Date Comments [facility]: Maintenance 11/10/2023 Encounter Details Date Type Department Care Team (Late st Contact Info) Description 11/10/2023 Telephone [facility], [place] [address] [facility] [place] [address] Region, Nurse [facility] [address] [facility] [place] [address] [facility]: Maintenance Allergies Active Allergy Reactions Criticality Noted Date Comments Adhesive Tape 02/04/2017 Duloxetine High 07/13/2023 Other Reaction(s): confusion Levofloxacin 09/01/2019 documented as of this encounter (statuses as of 11/10/2023) Medications Medication Sig Dispensed Refills Start Date [...] as of this encounter (statuses as of 11/10/2023) Active Problems Problem Noted Date Diagnosed Date [...] Overview: Added automatically from request for surgery [id number] Last Assessment & Plan: S/p Watchman Current [...] the Comments) Remote Patient Monitoring Vendor: [facility] Device(s): Connected Scale Self - Management Plan [...] as of this encounter (statuses as of 11/10/2023) Resolved Problems Problem Noted Date Diagnosed Date [...] as of this encounter (statuses as of 11/10/2023) Immunizations Name Administration Dates Next Due COVID-19 mRNA, LNP-s, No Pre serve, 2-Dose Series (Moderna) 08/20/2020,07/17/2020 COVID-19 mRNA, LNP-s, No Pre serve, 2-Dose Series (Pfizer) 05/14/2021 COVID-19, LNP-s, No Preserve , Robbie-sucrose, Ages 12+ (Pfizer) 11/04/2021 COVID-19, MRNA-LNP, 23-24, P F, 30 MCG/0.3 mL, 12 YRS AND ABOVE, IM ([facility]) 04/16/2023 Covid-19, Mrna, Lnp-s, Pf, B ivalent, 30 Mcg, IM, 12 yrs and above ([employer]de[employer]) 03/17/2022 Pneumococcal Conjugate Vacc, 13 Valent (Prevnar) [...] Telephone Encounter - Tameka Pearl LPN - 11/10/2023 12:40 PM EDT Images from the original note were not included. [facility] Remote Patient Monitoring Unable to contact patient: Trigger type: Abnormal reading(s): Device(s) Triggered: AMC (Advanced Monitored Caregiving): Pulse Oximeter: Oxygen saturation per oximeter: 85% Pulse rate per oximeter: 80 Trigger priority per AMC: high Plan: call placed to patient for AMC trigger. Left message on home number for return call to [facility] Tameka Pearl LPN [facility] 11/10/2023,12:40 PM documented in this encounter Plan of Treatment Upcoming Encounters Date Type Department Care Team (Late st Contact Info) Description 11/10/2023 2:20 PM EDT Office Visit Otolaryngology [facility] 132 [place] [address] George Ferrer PA-C [facility] [place] [address] 11/12/2023 8:00 AM EDT Office Visit [address] 293 [facility] [place] [address] Benny Waite, 293 [place] [address] 11/18/2023 8:30 AM EDT Home Visit [facility] [place], [facility] 132 [place] [address] Myrtle Allen, RN [address] [place] [address] 12/03/2023 8:40 AM EDT Office Visit [address] 293 [facility] [place] [address] Benny Waite, [address] [place] [address] 12/03/2023 3:30 PM EDT Office Visit Interventional Pain Center, [facility] [place] [address] Luann Guerra PA-C [facility] [place] [address] 12/13/2023 11:20 AM EDT Office Visit Family Practice 65 [facility] 293 [facility] [place] [address] Benny Waite, [address] [place] [address] 12/21/2023 11:00 AM EDT Nurse Only Ancillary 65 [facility] 293 [facility] [place] [address] College, Nurse Annual Wellness Visit [address] [place] [address] 01/12/2024 8:30 AM EDT Office Visit Cardiology, [facility] 132 [place] [address] Franco Mcgregor MD [address] [place], [place] [id number] 01/25/2024 1:00 PM EDT Telemedicine [facility] [place], [facility] [place] [address] Yadira Omalley CRNP [address] [place] [address] Ines Castro, [facility] Spun Paste Machine Operator [address] [place] [address] 02/15/2024 8:00 AM EDT Office Visit Cardiology, [facility] 132 [facility] [place] [address] Casimiro Barraza MD [address] [place] [address] Health Maintenance Due Date Last Done Comments [...] this encounter Medical Devices Implanted Type Area Carpet Installation Specialist Device Identifier Shelf Expiration Date Model / Serial / Lot Device Watchman Flx 35mm - [id number] Implanted:Qty: 1 on 02/05/2022 by Diamond Teran IV, [place] at [facility] [employer] : INTRV CARD [id number] 10/20/2024 [id number] / / [id number] Cath Thermodilution 6fr - [id number] Implanted:Qty: 1 on 07/31/2022 by Franco Mcgregor MD at [facility] [employer] [id number] 04/30/2024 [id number] / / [id number] Mirtaclip G4 - [id number] Implanted:Qty: 1 on 11/16/2022 at [facility] [employer] 06/25/2023 [id number] / / [id number] Clip Delivery Sytem G4 Xtw - [id number] Implanted:Qty: 1 on 11/16/2022 at [facility] [employer] [id number] 08/10/2023 [id number] TW / / [id number] Clip Delivery Sytem G4 Xtw - [id number] Implanted:Qty: 1 on 11/16/2022 at [facility] [employer] [id number] 09/10/2023 [id number] / / [id number] documented as of this encounter Advance [...] and were consensually agreed upon. Care Teams Traffic Sign Erection Supervisor Relationship Specialty Start Date End Date Benny Waite DO [address] [place] [address] PCP - General Internal Medicine 04/03/21 documented as of this encounter
--- OUTSIDE RECORDS SUMMARY | 2023-12-04 10:18 | External Medical Summary | Summary of Care ---
Author Name Unknown Organization [facility] Address [address] [facility] [place] [address] Phone [phone] Care Team Providers Care Special Officer Automat Name Role Phone Benny Waite DO Primary Care Provider [phone] Reason for Visit * Reason Onset Date Comments Follow Up 11/09/2023 Encounter Details Date Type Department Care Team (Late st Contact Info) Description 11/09/2023 12:15 PM EDT Scheduled Telephone [facility], [facility] [address] [place] [address] Coordinator, [facility] [address] [place] [address] Allergies Active Allergy Reactions Criticality Noted Date [...] night without results. 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 No answer, unable to leave message, mailbox is full. No answer on home phone. Per chart review, patient did go to see PCP today for same. documented in this encounter Plan of Treatment Upcoming Encounters Date Type Department Care Team (Late st Contact Info) Description 11/10/2023 2:20 PM EDT Office Visit Otolaryngology [facility] 132 [facility] [place] [address] George Ferrer PA-C [address] [place] [address] 11/12/2023 8:00 AM EDT Office Visit Family Practice [address] [place] [address] 293 [place] [address] Benny Waite, DO 293 [place] [address] 11/18/2023 8:30 AM EDT Home Visit [facility] [place] [address] Myrtle Allen RN [facility] [place] [address] 12/03/2023 8:40 AM EDT Office Visit Family Practice [address] [place] [address] 293 [place] [address] Benny Waite, DO 293 [place] [address] 12/03/2023 3:30 PM EDT Office Visit Interventional Pain Center, [facility] [address] [place] [address] Luann Guerra PA-C [address] [place] [address] 12/13/2023 11:20 AM EDT Office Visit Family Practice [address] [place] [address] [place] [address] Benny Waite, 293 [place] [address] 12/21/2023 11:00 AM EDT Nurse Only Ancillary [address] [place] [address] College, Nurse Annual Wellness Visit [address] [place] [address] 01/12/2024 8:30 AM EDT Office Visit Cardiology, [facility] [address] [place] [address] Franco Mcgregor MD [address] [place] [address] 01/25/2024 1:00 PM EDT [facility]icine [facility] [place], [facility] [address] [place] [address] Yadira Omalley CRNP 132 [place] [address] Ines Castro, [facility] Inner Layer Scrubber Tender [address] [place] [address] 02/15/2024 8:00 AM EDT Office Visit Cardiology, [facility] 132 [facility] [place] [address] Casimiro Barraza MD 132 [place] [address] Health Maintenance Due Date Last Done Comments [...] this encounter Medical Devices Implanted Type Area Processor Inspector Device Identifier Shelf Expiration Date Model / Serial / Lot Device Watchman Flx 35mm - [id number] Implanted:Qty: 1 on 02/05/2022 by Diamond Teran IV, MD at [facility] [employer] : INTRV CARD [id number] 10/20/2024 [id number] 50 / / [id number] Cath Thermodilution 6fr - [id number] Implanted:Qty: 1 on 07/31/2022 by Franco Mcgregor MD at [facility] [employer] [id number] 04/30/2024 [id number] / / [id number] Mirtaclip G4 - [id number] Implanted:Qty: 1 on 11/16/2022 at [facility] [employer] 06/25/2023 [id number] / / [id number] Clip Delivery Sytem G4 Xtw - [id number] Implanted:Qty: 1 on 11/16/2022 at [facility] [employer] [id number] 08/10/2023 [id number] TW / / [id number] Clip Delivery Sytem G4 Xtw - [id number] Implanted:Qty: 1 on 11/16/2022 at [facility] [employer] [id number] 09/10/2023 [id number] / / [id number] documented as of this encounter Advance [...] and were consensually agreed upon. Care Teams Special Officer Automat Relationship Specialty Start Date End Date Benny Waite DO [address] [place] [address] PCP - General Internal Medicine 04/03/21 documented as of this encounter
--- OUTSIDE RECORDS SUMMARY | 2023-12-04 10:19 | External Medical Summary | Summary of Care ---
Author Name Unknown Organization [facility] Address [address] [place] [address] Phone [phone] Care Team Providers Care [employer] Name Role Phone Benny Waite DO Primary Care Provider [phone] Reason for Visit * Reason Comments [facility]: Telehealth Encounter Details Date Type Department Care Team (Late st Contact Info) Description 10/26/2023 11:00 AM EDT Telemedicine [facility], [facility] [address] [place] [address] Yadira Omalley CRNP [address] [place] [address] Ines Castro, Community Health Supervisor [facility] [address] [place] [address] Constipation, unspecified constipation type*; CHF (congestive heart failure), NYHA class I, chronic, diastolic (HCC); 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); History of CVA (cerebrovascular accident); Presence of Watchman left atrial appendage closure device; Permanent atrial fibrillation (HCC) Allergies Active Allergy Reactions Criticality Noted Date Comments Adhesive Tape 02/04/2017 Duloxetine High 07/13/2023 Other Reaction(s): confusion Levofloxacin 09/01/2019 documented as of this encounter (statuses as of 10/27/2023) Medications Medication Sig Dispensed Refills Start Date [...] 1 Capsule in the evening. 0 Active Allopurinol 300 MG Oral Tablet (Zyloprim) [...] before bedtime. 200 Tablet 3 06/18/2023 Active Meclizine HCl 12.5 MG Oral Tablet (Antivert) Take 1 Tablet by mouth 2 times a day as needed for Dizziness. 0 07/23/2023 Active Gabapentin 300 MG Oral Capsule [...] type Take 8.6 mg by mouth daily. 0 08/12/2023 Active Proventil HFA 108 (90 Base) [...] disc disease Take 1 Tablet by mouth in the morning and 1 Tablet at noon and 1 Tablet in the evening. 90 Tablet 0 09/28/2023 Active Bisacodyl 10 MG Rectal Suppository (Dulcolax) Administer 1 Suppository into the rectum daily as needed for Constipation. Do not use for more than 1 week. 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 08/11/2022 Severe tricuspid regurgitation 08/11/2022 Gout, arthropathy 07/20/2022 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 02/05/2022 Permanent atrial fibrillation 12/22/2021 Overview: Added automatically from request for surgery [id number] Last Assessment & Plan: S/p Watchman Current [...] Comments) Remote Patient Monitoring Vendor[place] [facility] Device(s): Connected Scale Self - Management Plan [...] as of this encounter (statuses as of 10/27/2023) Resolved Problems Problem Noted Date Diagnosed Date [...] as of this encounter (statuses as of 10/27/2023) Immunizations Name Administration Dates Next Due COVID-19 mRNA, LNP-s, No Pre serve, 2-Dose Series (Moderna) 08/20/2020,07/17/2020 COVID-19 mRNA, LNP-s, No Pre serve, 2-Dose Series ([employer]) 05/14/2021 COVID-19, LNP-s, No Preserve , Robbie-sucrose, Ages 12+ ([employer]) 11/04/2021 COVID-19, MRNA-LNP, 23-24, P F, 30 MCG/0.3 mL, 12 YRS AND ABOVE, IM ([employer]) 04/16/2023 Covid-19, Mrna, Lnp-s, Pf, B ivalent, 30 Mcg, IM, 12 yrs and above ([employer]) 03/17/2022 Pneumococcal Conjugate Vacc, 13 Valent (Prevnar) [...] Sign Reading Time Taken Comments Blood Pressure 120/60 10/26/2023 11:19 AM EDT Pulse 66 10/26/2023 11:19 AM EDT Temperature 35.8 C (96.5 F) 10/26/2023 11:19 AM E DT Respiratory Rate - - Oxygen Saturation 94% 10/26/2023 11:19 AM EDT Inhaled Oxygen Concentration - - [...] as of this encounter Progress Notes * Ines Castro, Community Health Supervisor [facility] - 10/26/2023 11:18 AM EDT Telemedicine visit: Yes Patient location: HOME. I was not in a hospital or clinic location. After connecting through televideo, patient was verified with two unique identifiers. Patient (or authorized legal litigation claim representative) was then informed that this was a Telemedicine visit and being conducted confidentially over secure lines. Methods to assure confidentiality were taken. Patient acknowledged consent and understanding of privacy and security of the Telemedicine visit. The patient agreed to participate. Community Health Supervisor [facility] ([facility]) documentation: CHW initiated telehealth visit with provider Yadira Castro- Community Health Worker 1 Support Services/[facility] [employer] [facility] [email or web address] * Yadira Omalley CRNP - 10/26/2023 11:00 AM EDT Images from the original note were not included. [facility] Problem Oriented Charting Provider Visit Date: 10/26/2023 Time: 11:27 AM [facility] Sub-Program: Focused Care Management (3-9 months) Assessment and Plan #1 Constipation, unspecified constipation type (Primary) Assessment & Plan: New issue. Reports he [...] when he gets home, after getting his x-ray.Also discussed fleets enema and he refuses. He will try suppository 1st. Intake to follow up tomorrow. Orders: - XR Abd Obstruct Series with Chest 1 View #2 CHF (congestive heart failure), NYHA class I, chronic, diastolic (HCC) Assessment & Plan: "RED FLAG" HF Symptoms: Leg Swelling (Examples: "I can't wear certain socks or shoes", "My pants feel tight") Medication Regimen: Beta Josemanuel Therapy: Metoprolol Succinate (ER) COLE Inhibitor/ARB Therapy: No COLE/ARB/ARNI secondary to: DC by PCP Diuretic therapy: Lasix SGLT2 Inhibitor: No Current SGLT2 (Describe in the Comments) Remote Patient Monitoring Vendor: [facility] Device(s): Connected Scale Self - Management Plan Double dose of Furosemide for 3 days Exacerbation Plan BMP Chest X-Ray Additional Comments: Euvolemic today. He has had a weight gain but he has not had a bowel movement in over 1 week. #3 Current 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 ([facility]) Assessment & Plan: Discussed how he is feeling in light of the recent of his and he reports he is coping. He continues BuSpar. #4 History of CVA (cerebrovascular accident) Assessment & Plan: BP at goal Continues aspirin LDL 89. It was briefly discussed at Neurology the possibility of starting a statin for LDL goal less than 70-2 defer further discussion with PCP #5 Presence of Watchman left atrial appendage closure device #6 Permanent atrial fibrillation ([facility]) Overview: Added automatically from request for surgery [id number] Other orders - Bisacodyl; Administer 1 Suppository into the rectum daily as needed for Constipation. Do not use for more than 1 week. Dispense: 10 Suppository; Refill: 0 Additional Medical Decision Making: Plan as above. Low suspicion for bowel obstruction but he is willing to go for an x-ray. Advised to use suppository. We will have intake follow-up tomorrow resultsof x-ray and if he had a bowel movement. RN to continue to monitor. We will plan a recheck in 12 weeks. Check-out note: [facility] scheduling--please schedule 12 week follow-up via telemedicine Scheduled appointments in the next 60 days: Future Appointments-next 60 days Date/Time Provider Specialty Dept Phone 10/26/2023 11:00 AM Ines Castro, [facility] Health Supervisor Sewing [facility]; Yadira Omalley CRNP [facility] [phone] 10/29/2023 8:00 AM (Arrive by 7:45 AM) Benny Waite DO Family Medicine [phone] 11/18/2023 8:30 AM Myrtle Allen RN [facility] [phone] 12/03/2023 3:30 PM (Arrive by 3:15 PM) Luann Guerra PA-C Pain Medicine [phone] 12/13/2023 11:20 AM (Arrive by 11:05 AM) Benny Waite DO Family Medicine [phone] 12/21/2023 11:00 AM College, Nurse Annual Wellness Visit [facility] [phone] 01/12/2024 8:30 AM (Arrive by 8:15 AM) Franco Mcgregor MD Cardiology [phone] 02/15/2024 8:00 AM (Arrive by 7:45 AM) Casimiro Barraza MD Cardiology [phone] A total of 20 minutes was spent face to face (via video-based telemedicine if designated as a telemedicine visit) This dictation was verbally transcribed via Dictation system. Occasional Errors, spelling flaws andomissions are inherent in digital transcriptions. Please contact the undersigned for any clarification/correction in the dictated transcript as needed. Subjective Subjective Is this a Telemedicine Visit? Yes, Patient location: HOME. I was not in a hospital or clinic location. After connecting through televideo, patient was verified with two unique identifiers. Patient (or authorized legal litigation claim representative) was then informed that this was a Telemedicine visit and being conducted confidentially over secure lines. Methods to assure confidentiality were taken. Patient acknowledged consent and understanding of privacy and security of the Telemedicine visit. The patient agreed to participate. Reason For [facility] Visit: Follow-Up Current Concerns: Nikolas Silvestre is a 83 year old male [facility] PMH--chronic diastolic heart failure, valvular heart disease-severe MR status post mitral clip surgery, AFib status post Watchman device, PVD, DEX/CSA BiPAP intolerant, hypertension, prediabetes, GERD, BPH ED 08/31/23--epistaxis ED 09/04--nasal packing removal PCP 10/12/23 Today's concerns are: No BM for approx one week. Tried miralax last night with stool softener and no BM. Some upper abd mild discomfort, passing gas. No N/V. Had dulcolax supp but did not use. Typically moves bowels once a day Additional Review of Systems Constitutional: Negative for appetite change. Trying to keep wt down Respiratory: Positive for cough (occasional--dry throat at night) and shortness of breath. Cardiovascular: Negative for leg swelling. Gastrointestinal: Positive for constipation. Negative for nausea and vomiting. Genitourinary: Negative for difficulty urinating. Neurological: Negative for dizziness and light-headedness. Objective Objective Vitals: 10/26/23 1119 Temp: 35.8 C (96.5 F) Pulse: 66 SpO2: 94% BP: 120/60 Last Weights: Wt Readings from Last 3 Encounters: 10/14/23 98.2 kg (216 lb 8 oz) 10/12/23 99.6 kg (219 lb 8 oz) 09/28/23 99.9 kg (220 lb 3.2 oz) Last BPs: BP Readings from Last 4 Encounters: 10/26/23 120/60 10/14/23 124/64 10/12/23 122/76 09/28/23 122/78 Physical Exam Constitutional: General: He is not in acute distress. Appearance: He is not toxic-appearing. Cardiovascular: Rate and Rhythm: Normal rate and regular rhythm. Pulmonary: Effort: Pulmonary effort is normal. No respiratory distress. Breath sounds: Normal breath sounds. Abdominal: General: Bowel sounds are normal. Palpations: Abdomen is soft. Tenderness: There is abdominal tenderness (epigastric). Skin: Coloration: Skin is not pale. Neurological: General: No focal deficit present. Mental Status: He is alert. Psychiatric: Mood and Affect: Mood normal. Behavior: Behavior normal. Comments: Flat affect Lab Review: I have reviewed the following results: BMP results Recent Labs Units 09/28/23 0933 08/05/23 1330 07/21/23 1404 SODIUM - [facility] mmol/L 141 145 143 POTASSIUM - [facility] mmol/L 4.5 4.2 4.2 CHLORIDE - [facility] mmol/L 106 106 105 CO2 - [facility] mmol/L 27 29 29 CREATININE - [facility] mg/dL 1.0 1.1 1.1 BUN - [facility] mg/dL 13 13 22* Lipid panel results Recent Labs Units 11/17/22 0445 CHOLESTEROL - [facility] mg/dL 157 LDL CHOLESTEROL (CALCULATED) - [facility] mg/dL 89 HDL CHOLESTEROL - [facility] mg/dL 51 TRIGLYCERIDES - [facility] mg/dL 87 CBC results Recent Labs Units 09/28/23 0933 08/05/23 1330 07/05/23 1412 WBC K/uL 8.65 5.94 7.71 HGB g/dL 15.4 15.8 15.4 HCT % 44.3 47.2 43.7 PLT K/uL 199 194 188 HbA1c results Recent Labs Units 07/02/22 0908 HEMOGLOBIN A1C - [facility] % 5.6 TSH results Recent Labs Units 11/19/21 1426 TSH - [facility] uIU/mL 2.63 Vitamin D results No results for input(s): "25OHVITAMIND" in the last 88022 hours. Hepatic panel results Recent Labs Units 09/28/23 0933 07/05/23 1412 11/20/22 0732 PROTEIN - [facility] g/dL 6.5 6.8 7.6 BILIRUBIN, TOTAL - [facility] mg/dL 0.9 0.5 1.2 ALKALINE PHOSPHATASE - [facility] U/L 86 68 94 AST - [facility] U/L 33 34 26 ALT - [facility] U/L 24 26 26 Protein/cr ratio results No results for input(s): "PROCRRATIO" in the last 50203 hours. Medication Review "Bottles Out" medication review not performed today JUAN Domínguez 9:04 AM *Communication sent to PCP (via autofax if non-[facility]), [facility] Health Care Team members,relevant Specialty Care Physicians* documented in this encounter Miscellaneous Notes * Assessment & Plan Note - Yadira Omalley CRNP - 10/26/2023 2:08 PM EDT Associated Problem(s): Constipation New issue. Reports he generally moves his [...] when he gets home, after getting his x-ray.Also discussed fleets enema and he refuses. He will try suppository 1st. Intake to follow up tomorrow. * Assessment & Plan Note - Yadira Omalley CRNP - 10/26/2023 2:07 PM EDT Associated Problem(s): History of CVA (cerebrovascular accident) BP at goal Continues aspirin LDL 89. 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 He continues BuSpar. * Assessment & Plan Note - Yadira Omalley CRNP - 10/26/2023 2:03 PM EDT Associated Problem(s): CHF (congestive heart failure), NYHA class I, chronic, diastolic (HCC) "RED FLAG" HF Symptoms: Leg Swelling (Examples: "I can't wear certain socks or shoes", "My pants feel tight") Medication Regimen: Beta Josemanuel Therapy: Metoprolol Succinate (ER) COLE Inhibitor/ARB Therapy: No COLE/ARB/ARNI secondary to: DC by PCP Diuretic therapy: Lasix SGLT2 Inhibitor: No Current SGLT2 (Describe in the Comments) Remote Patient Monitoring Vendor: [facility] Device(s): Connected Scale Self - Management Plan Double dose of Furosemide for 3 days Exacerbation Plan BMP Chest X-Ray Additional Comments: Euvolemic today. He has had a weight gain but he has not had a bowel movement in over 1 week. documented in this encounter Plan of Treatment Upcoming Encounters Date Type Department Care Team (Late st Contact Info) Description 10/27/2023 12:45 PM EDT Scheduled Telephone [facility], [facility] [address] [place] [address] Coordinator, [facility] [address] [place] [address] 10/29/2023 8:00 AM EDT Office Visit Family Practice [address] [place] [address] [address] [place] [address] Benny Waite DO [address] [place] [address] 11/18/2023 8:30 AM EDT [facility] Visit [facility] [address] [place] [address] Myrtle Allen, RN 132 [facility] [place] [address] 12/03/2023 3:30 PM EDT Office Visit Interventional Pain Center, [facility] [address] [place] [address] Luann Guerra PA-C 132 [place] [address] 12/13/2023 11:20 AM EDT Office Visit Family Practice 65 [facility] [address] [place] [address] Benny Waite, 293 [place] [address] 12/21/2023 11:00 AM EDT Nurse Only Ancillary 65 [facility] [address] [place] [address] College, Nurse Annual Wellness Visit [address] [place] [address] 01/12/2024 8:30 AM EDT Office Visit Cardiology, [facility] 132 [place] [address] Franco Mcgregor MD [address] [place] [address] 02/15/2024 8:00 AM EDT Office Visit Cardiology, [facility] 132 [facility] [place] [address] Casimiro Barraza MD [address] [place] [address] Scheduled Orders Name Type Priority Associated Diagnoses Orde r Schedule XR ABDOMEN OBSTRUCT SERIES W CHEST 1 VIEW Medical Imaging Routine Constipation, unspecified constipation type Ordered: 10/26/2023 Health Maintenance Due Date Last Done Comments DTaP,Tdap,and Td Vaccines (2 - Td or [...] this encounter Medical Devices Implanted Type Area Extruder Operator Helper Device Identifier Shelf Expiration Date Model / Serial / Lot Device Watchman Flx 35mm - [id number] Implanted:Qty: 1 on 02/05/2022 by Diamond Teran IV, MD at [facility] [place] [place] [employer] : INTRV CARD [id number] 10/20/2024 [id number] / / [id number] Cath Thermodilution 6fr - [id number] Implanted:Qty: 1 on 07/31/2022 by Franco Mcgregor MD at [facility] [place] [place] [employer] [id number] 04/30/2024 [id number] / / [id number] Mirtaclip G4 - [id number] Implanted:Qty: 1 on 11/16/2022 at [facility] [place] [place] [employer] 06/25/2023 [id number] / / [id number] Clip Delivery Sytem G4 Xtw - [id number] Implanted:Qty: 1 on 11/16/2022 at [facility] [place] [place] [employer] [id number] 08/10/2023 [id number] / / [id number] Clip Delivery Sytem G4 Xtw - [id number] Implanted:Qty: 1 on 11/16/2022 at [facility] [place] [place] [employer] [id number] 09/10/2023 [id number] / / [id number] documented as of this encounter Visit Diagnoses Diagnosis Constipation, unspecified constipation type- Primary CHF (congestive heart failure), NYHA class I, chronic, diastolic (HCC) 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) History of CVA (cerebrovascular accident) Transient ischemic attack (TIA), and cerebral infarction without residual deficits Presence of Watchman left atrial appendage closure device Permanent atrial fibrillation (HCC) Atrial fibrillation documented in this encounter Advance Directives Latest [...] and were consensually agreed upon. Care Teams [employer] Relationship Specialty Start Date End Date Benny Waite DO [address] [place] [address] PCP - General Internal Medicine 04/03/21 documented as of this encounter
--- OUTSIDE RECORDS SUMMARY | 2023-12-04 10:19 | External Medical Summary | Summary of Care ---
Author Name Unknown Organization [facility] Address [address] [facility] [place] [address] Phone [phone] Care Team Providers Care Armament Repairer Name Role Phone Benny Waite DO Primary Care Provider [phone] Reason for Visit * Reason Onset Date Comments [facility]: Maintenance 10/26/2023 Encounter Details Date Type Department Care Team (Late st Contact Info) Description 10/26/2023 Telephone [facility], [facility] [address] [facility] [place] [address] [facility], Nurse [facility] [address] [facility] J[place] ABBASI [id number] [facility]: Maintenance Allergies Active Allergy Reactions Criticality Noted Date Comments Adhesive Tape 02/04/2017 Duloxetine High 07/13/2023 Other Reaction(s): confusion Levofloxacin 09/01/2019 documented as of this encounter (statuses as of 10/26/2023) Medications Medication Sig Dispensed Refills Start Date [...] 05/16/2023 Active Finasteride 5 MG Oral Tablet (Proscar)Indications :BPH with obstruction/lower urinary tract symptoms TAKE ONE TABLET BY MOUTH EVERY MORNING 100 Tablet 2 05/25/2023 Active busPIRone HCl 5 MG Oral Tablet (Buspar)Indications: Anxiety Take 1 Tablet by mouth in the morning and 1 Tablet before bedtime. 200 Tablet 3 06/18/2023 Active Meclizine HCl 12.5 MG Oral Tablet (Antivert) Take 1 Tablet by mouth 2 times a day as needed for Dizziness. 0 07/23/2023 Active Gabapentin 300 MG Oral Capsule (Neurontin)Indicatio ns:Acute bilateral low back pain without sciatica TAKE ONE CAPSULE BY MOUTH THREE TIMES A DAY 300 Capsule 3 08/08/2023 08/07/2024 Active Metoprolol Succinate ER 25 MG Oral Tablet Extended Release 24 Hour (toPROL XL)Indications:Chron ic atrial fibrillation (HCC),CHF (congestive heart failure), NYHA class I, chronic, diastolic (HCC) Take 1 Tablet by mouth daily. 90 Tablet 3 08/09/2023 08/08/2024 Active Senna 8.6 MG Oral CapsuleIndications:C onstipation, unspecified constipation type Take 8.6 mg by mouth daily. 0 08/12/2023 Active Proventil HFA 108 (90 Base) MCG/ACT Inhalation Aerosol Solution Inhale 2 Puffs by mouth 3 times a day as needed for Dyspnea, Cough or Wheezing. 6.7 g 3 09/10/2023 Active Furosemide 20 MG Oral Tablet (Lasix)Indications:C HF (congestive heart failure), NYHA class I, chronic, diastolic (HCC) Take 1 Tablet by mouth in the morning. 100 Tablet 3 09/28/2023 Active traMADol HCl 50 MG Oral Tablet (Ultram)Indications: Lumbar degenerative disc disease Take 1 Tablet by mouth in the morning and 1 Tablet at noon and 1 Tablet in the evening. 90 Tablet 0 09/28/2023 Active documented as of this encounter (statuses as of 10/26/2023) Active Problems Problem Noted Date Diagnosed Date History of CVA (cerebrovascular accident) 2023 Rectal bleeding 08/11/2023 Last Assessment & Plan: Pt reports this is not new and ongoing for one year. Bright red, known hemorrhoids. 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 Asked if Crisis called him "I don't know, there have been so many people calling me." Reports he feels like he may as well not be living, but denies suicidal plan. No guns in the home. Continues buspar. [facility] Crisis number given to pt by [facility] Behavioral health CM referral placed Moderate to severe mitral regurgitation 04/03/20 21 [...] Therapy: Metoprolol Succinate (ER) COLE Inhibitor/ARB Therapy: Lisinopril Diuretic therapy: Lasix SGLT2 Inhibitor: No Current SGLT2 (Describe in the Comments) Remote Patient Monitoring Vendor: [facility] Device(s): Connected Scale Connected Pulse Ox Connected BP Cuff Self - Management Plan Double dose of Furosemide for 3 days Exacerbation Plan BMP Additional Comments: Euvolemic today. Pt requests [facility] scale, BP and pulse ox which was ordered. 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 documented as of this encounter (statuses as of 10/26/2023) Resolved Problems Problem Noted Date Diagnosed Date [...] as of this encounter (statuses as of 10/26/2023) Immunizations Name Administration Dates Next Due COVID-19 mRNA, LNP-s, No Pre serve, 2-Dose Series (Moderna) 08/20/2020,07/17/2020 COVID-19 mRNA, LNP-s, No Pre serve, 2-Dose Series ([employer]) 05/14/2021 COVID-19, LNP-s, No Preserve , Robbie-sucrose, [...] encounter Miscellaneous Notes * Telephone Encounter - Yari Aponte RN - 10/26/2023 12:24 PM EDT Follow up phone call scheduled tomorrow 10/26 per provider request. Yari Aponte RN, BSN [facility] negative restorer Navigator * Telephone Encounter - Yadira Omalley CRNP - 10/26/2023 12:05 PM EDT Patient has not had a BM in close to a week. He has no signs of fluid retention. He is going to go today for an abdominal x-ray to rule out any obstruction. I sent Dulcolax suppositories for him to start today after he goes for the x- ray.(TT sent to scheduling to schedule x-ray at [facility]) Please follow-up with call tomorrow to ensure he had bowel movement/results of x-ray. * Telephone Encounter - Iris Guerra LPN - 10/26/2023 10:40 AM EDT Images from the original note were not included. [facility] Remote Patient Monitoring documented in this encounter Plan of Treatment Upcoming Encounters Date Type Department Care Team (Late st Contact Info) Description 10/27/2023 12:45 PM EDT Scheduled Telephone [facility] [place], [facility] [address] [place] [address] Coordinator, [facility] [address] [place] [address] 10/29/2023 8:00 AM EDT Office Visit Family Practice [address] [place] [address] 293 [place] [address] Benny Watie DO 293 [place] [address] 11/18/2023 8:30 AM EDT Home Visit [facility] [place], [facility] [address] [place] [address] Myrtle Allen, RN 132 [facility] [place] [address] 12/03/2023 3:30 PM EDT Office Visit Interventional Pain Center, [facility] [address] [place] [address] Luann Guerra PA-C [address] [place] [address] 12/13/2023 11:20 AM EDT Office Visit Family Practice [address] [facility] 293 [place] [address] Benny Waite DO 293 [place] [address] 12/21/2023 11:00 AM EDT Nurse Only Ancillary [facility] 293 [place] [address] College, Nurse Annual Wellness Visit [address] [address] 01/12/2024 8:30 AM EDT Office Visit Cardiology, [facility] 132 [place] [address] Franco Mcgregor MD [address] [place] [address] 02/15/2024 8:00 AM EDT Office Visit Cardiology, [facility] 132 [place] [address] Casimiro Barraza MD 132 [place] [address] Health Maintenance Due Date Last Done Comments [...] this encounter Medical Devices Implanted Type Area Computer Application Developer Device Identifier Shelf Expiration Date Model / Serial / Lot Device Watchman Flx 35mm - [id number] Implanted:Qty: 1 on 02/05/2022 by Diamond Teran IV, MD at [facility] [employer] : INTRV CARD [id number] 10/20/2024 [id number] / / [id number] Cath Thermodilution 6fr - [id number] Implanted:Qty: 1 on 07/31/2022 by Franco Mcgregor MD at [facility] [employer] [id number] 04/30/2024 [id number] / / [id number] Mirtaclip G4 - [id number] Implanted:Qty: 1 on 11/16/2022 at [facility] [employer] 06/25/2023 [id number] / / [id number] Clip Delivery Sytem G4 Xtw - [id number] Implanted:Qty: 1 on 11/16/2022 at [facility] [email or web address] [id number] 08/10/2023 [id number] / / [id number] Clip Delivery Sytem G4 Xtw - [id number] Implanted:Qty: 1 on 11/16/2022 at [facility] [email or web address] [id number] 09/10/2023 [id number] / / [id number] documented as of this encounter Advance [...] and were consensually agreed upon. Care Teams Armament Repairer Relationship Specialty Start Date End Date Benny Waite DO [address] [place] [address] PCP - General Internal Medicine 04/03/21 documented as of this encounter
--- OUTSIDE RECORDS SUMMARY | 2023-12-04 10:19 | External Medical Summary | Summary of Care ---
Author Name Unknown Organization [facility] [address] [facility] [address] Phone [phone] Care Team Providers Care Hydraulic Dredge Operator Name Role Phone Benny Waite DO Primary Care Provider [phone] Encounter Details Date Type Department Care Team (Late st Contact Info) Description 07/27/2023 Telephone [facility], [facility] [address] [facility] [place] [phone] [facility], Nurse [facility] [address] [facility] [place] [address] Allergies Active Allergy Reactions Criticality Noted Date [...] as needed for Dizziness. 0 07/23/2023 Active Neomycin-Polymyxin -HC 3.5-34128-0 Otic SolutionIndication s:Other infective acute otitis externa of left ear Administer 4 Drops into the left ear in the morning and 4 Drops at noon and 4 Drops before bedtime. To affected ear for 10 days 10 mL 0 05/13/2023 4 Discontinue d(Medicatio n List Clean Up) Gabapentin 300 MG Oral Capsule (Neurontin)Indicat ions:Acute bilateral low back pain without sciatica,Senile purpura (HCC) Take 2 tablets in AM and 1 tablet in PM 0 05/19/2023 4 Discontinue d(Refill) traMADol HCl 50 MG Oral Tablet (Ultram)Indication s:Lumbar degenerative disc disease Take 1 Tablet by mouth every 6 hours as needed for Pain, Severe. 30 Tablet 0 07/07/2023 4 Discontinue d(Refill) Lisinopril 2.5 MG Oral Tablet (Prinivil) Take 1 Tablet by mouth in the morning. 0 4 Discontinue d(Refill) Furosemide 20 MG Oral Tablet (Lasix) Take 1 Tablet by mouth once a day on Wednesday, Wednesday, and Wednesday only. 0 4 Discontinue d(Refill) Clopidogrel Bisulfate 75 MG Oral Tablet (Plavix)Indication s:Visual field loss, post-stroke Take 1 Tablet by mouth in the morning. 30 Tablet 0 07/22/2023 4 Discontinue d(Medicatio n List Clean Up) Metoprolol Succinate ER 25 MG Oral Tablet Extended Release 24 Hour (toPROL XL)Indications:Chr onic atrial fibrillation (HCC),CHF (congestive heart failure), NYHA class I, chronic, diastolic (HCC) Take 1 Tablet by mouth in the morning. Pt taking full 25mg. 0 07/23/2023 4 Discontinue d(Medicatio n List Clean Up) [...] results. 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 02/05/2022 Permanent atrial fibrillation 12/22/2021 Overview: Added automatically from request for surgery [id number] Last Assessment & Plan: S/p Watchman Current [...] in the Comments) Remote Patient Monitoring Vendor: [facility] Device(s): Connected Scale Self - Management Plan [...] MCG/0.3 mL, 12 YRS AND ABOVE, IM ([employer]) 04/16/2023 Covid-19, Mrna, Lnp-s, Pf, B ivalent, [...] Telephone Encounter - Haritha Peña LPN - 07/27/2023 6:17 PM EST Will call pt to confirm 07/29 HV documented in this encounter Plan of Treatment Upcoming Encounters Date Type Department Care Team (Late st Contact Info) Description 10/27/2023 12:45 PM EDT Scheduled Telephone [facility], [facility] [address] [place] [address] Coordinator, [facility] 132 [place] [address] 10/29/2023 8:00 AM EDT Office Visit [address] 293 [facility] [place] [address] Benny Waite, 293 [place] [address] 11/18/2023 8:30 AM EDT Home Visit [facility], [facility] [address] [place] [address] Myrtle Allen, RN 132 [place] [address] 12/03/2023 3:30 PM EDT Office Visit Interventional Pain Center, [facility] [address] [place] [address] Luann Guerra PA-C [address] [place] [address] 12/13/2023 11:20 AM EDT Office Visit [address] 293 [facility] [place] [address] Benny Waite DO 293 [place] [address] 12/21/2023 11:00 AM EDT Nurse Only Ancillary 65 [facility] 293 [facility] [place] [address] College, Nurse Annual Wellness Visit [address] [place] [address] 01/12/2024 8:30 AM EDT Office Visit Cardiology, [facility] 132 [place] [address] Franco Mcgregor MD [address] [place] [address] 02/15/2024 8:00 AM EDT Office Visit Cardiology, [facility] 132 [place] [address] Casimiro Barraza MD 132 [place] [address] Health Maintenance Due Date Last Done Comments [...] this encounter Medical Devices Implanted Type Area Luster Repairer Device Identifier Shelf Expiration Date Model / Serial / Lot Device Watchman Flx 35mm - [id number] Implanted:Qty: 1 on 02/05/2022 by Diamond Teran IV, MD at [facility] [employer] : INTRV CARD [id number] 10/20/2024 [id number] / / [id number] Cath Thermodilution 6fr - [id number] Implanted:Qty: 1 on 07/31/2022 by Franco Mcgregor MD at [facility] [employer] [id number] 04/30/2024 [id number] / / [id number] Mirtaclip G4 - [id number] Implanted:Qty: 1 on 11/16/2022 at [facility] [employer] 06/25/2023 [id number] / / [id number] Clip Delivery Sytem G4 Xtw - [id number] Implanted:Qty: 1 on 11/16/2022 at [facility] [employer] [id number] 08/10/2023 [id number] / / [id number] Clip Delivery Sytem G4 Xtw - [id number] Implanted:Qty: 1 on 11/16/2022 at [facility] [employer] [id number] 09/10/2023 [id number] / / [id number] documented as of this encounter Advance [...] and were consensually agreed upon. Care Teams Hydraulic Dredge Operator Relationship Specialty Start Date End Date Benny Waite DO 293 [place] [address] PCP - General Internal Medicine 04/03/21 documented as of this encounter
--- OUTSIDE RECORDS SUMMARY | 2023-12-04 10:19 | External Medical Summary | Summary of Care ---
Author Name Unknown Organization [facility] Address [address] [facility] [place] [address] Phone [phone] Care Team Providers Care Maitre D' Name Role Phone Benny Waite DO Primary Care Provider [phone] Reason for Visit * Reason Onset Date Comments [facility]: Maintenance 10/31/2023 Encounter Details Date Type Department Care Team (Late st Contact Info) Description 10/31/2023 4:00 PM EDT Scheduled Telephone [facility], [facility] 132 [facility] [place] [address] [facility], Nurse [facility] 132 [facility] [place] [address] Allergies Active Allergy Reactions Criticality Noted Date Comments Adhesive Tape 02/04/2017 Duloxetine High 07/13/2023 Other Reaction(s): confusion Levofloxacin 09/01/2019 documented as of this encounter (statuses as of 10/31/2023) Medications Medication Sig Dispensed Refills Start Date [...] as of this encounter (statuses as of 10/31/2023) Active Problems Problem Noted Date Diagnosed Date Constipation 10/26/2023 Last Assessment & Plan: New issue. Reports he generally moves his bowels daily. No BM for a week. Some mild abdominal discomfort, he is able to pass gas. No nausea or vomiting. He took a dose of MiraLax and stool softener last night without results. 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 02/05/2022 Permanent atrial fibrillation 12/22/2021 Overview: Added automatically from request for surgery [id number] Last Assessment & Plan: S/p Watchman Current [...] in the Comments) Remote Patient Monitoring Vendor: [facility] Device(s): Connected Scale Self - Management Plan [...] as of this encounter (statuses as of 10/31/2023) Resolved Problems Problem Noted Date Diagnosed Date [...] as of this encounter (statuses as of 10/31/2023) Immunizations Name Administration Dates Next Due COVID-19 mRNA, LNP-s, No Pre serve, 2-Dose Series (Moderna) 08/20/2020,07/17/2020 COVID-19 mRNA, LNP-s, No Pre serve, 2-Dose Series (Pfizer) 05/14/2021 COVID-19, LNP-s, No Preserve , Robbie-sucrose, Ages 12+ (Pfizer) 11/04/2021 COVID-19, MRNA-LNP, 23-24, P F, 30 MCG/0.3 mL, 12 YRS AND ABOVE, IM ([facility]) 04/16/2023 Covid-19, Mrna, Lnp-s, Pf, B ivalent, 30 Mcg, IM, 12 yrs and above (Trly Uniq) 03/17/2022 Pneumococcal Conjugate Vacc, 13 Valent (Prevnar) [...] encounter Miscellaneous Notes * Telephone Encounter - Yasmine Leung RN - 10/31/2023 10:51 AM EDT Images from the original note were not included. [facility] Telephonic Nurse Follow-Up Call [facility] Subprogram: Focused Care Management (3-9 months) Follow Up Call Type: Weekend Call Acute issue requiring follow-up call: Remote Patient Monitoring Trigger Objective: 10/29/2023 7:59 AM 10/26/2023 11:19 AM 10/14/2023 8:51 AM 10/12/2023 8:55 AM 10/12/2023 8:50 AM VITALS ACROSS ENCOUNTERS BP 118/58 120/60 124/64 Pulse 64 66 72 88 95 Weight 102 kg 98.2 kg BMI 34.95 BMI 34.95 kg/m2 33.66 kg/m2 Remote Patient Monitoring: [facility] Scale: Oxygen Needs: NO supplemental oxygen needs identified DME Needs: NO DME needs identified Medications: No medication or dose adjustments made during acute episode Subjective: Condition Status: No change in symptoms Current Concerns: Denies SOB, Edema. Feels OK Disposition: Issue resolved. All appropriate follow up scheduled. Future Visits Scheduled: Future Appointments-next 60 days Date/Time Provider Specialty Dept Phone 10/31/2023 4:[address] [facility], Nurse Fanny Stewart at Home [phone] 11/18/2023 8:30 AM Myrtle Allen RN [facility] [phone] 12/03/2023 8:40 AM (Arrive by 8:25 AM) Benny Waite DO Family Medicine [phone] 12/03/2023 3:30 PM (Arrive by 3:15 PM) Luann Guerra PA-C Pain Medicine [phone] 12/13/2023 11:20 AM (Arrive by 11:05 AM) Benny Waite DO Family Medicine [phone] 12/21/2023 11:00 AM [facility] Nurse Annual Wellness Visit 65 [facility] [phone] 01/12/2024 8:30 AM (Arrive by 8:15 AM) Franco Mcgregor MD Cardiology [phone] 01/25/2024 1:00 PM Ines Castro, [facility]; Yadira Omalley CRNP [facility] [phone] 02/15/2024 8:00 AM (Arrive by 7:45 AM) Casimiro Barraza MD Cardiology [phone] Yasmine Leung, RN documented in this encounter Plan of Treatment Upcoming Encounters Date Type Department Care Team (Late st Contact Info) Description 11/18/2023 8:30 AM EDT Home Visit [facility] at [facility], [facility] [place] [address] Myrtle Allen RN [address] [place] [address] 12/03/2023 8:40 AM EDT Office Visit Family Practice [address] [place] [address], [place] [address] Benny Waite, DO 293 [place] [address] 12/03/2023 3:30 PM EDT Office Visit Interventional Pain Center, [facility] 132 [facility] [place] [address] Luann Guerra PA-C 132 [facility] [address] 12/13/2023 11:20 AM EDT Office Visit Family Practice [address] [place] [address] 293 [facility], [place] [address] Benny Waite, DO 293 [place] [address] 12/21/2023 11:00 AM EDT Nurse Only Ancillary [address] [place] [address], [place] [address] College, Nurse Annual Wellness Visit [address], [place] [address] 01/12/2024 8:30 AM EDT Office Visit Cardiology, [facility] 132 [facility] [place] [address] Franco Mcgregor MD [address] [place] [address] 01/25/2024 1:00 PM EDT Telemedicine [facility] [place], [facility] 132 [place] [address] Yadira Omalley CRNP 132 [place] [address] Ines Castro, [facility] [address] [place] [address] 02/15/2024 8:00 AM EDT Office Visit Cardiology, [facility] 132 [place] [address] Casimiro Barraza MD 132 [place] [address] Health Maintenance Due Date Last Done Comments [...] this encounter Medical Devices Implanted Type Area Plant Attendant Device Identifier Shelf Expiration Date Model / Serial / Lot Device Watchman Flx 35mm - [id number] Implanted:Qty: 1 on 02/05/2022 by Diamond Teran IV, MD at [facility] [employer] : INTRV CARD [id number] 10/20/2024 [id number] / / [id number] Cath Thermodilution 6fr - [id number] Implanted:Qty: 1 on 07/31/2022 by Franco Mcgregor MD at [facility] [employer] [id number] 04/30/2024 [id number] / / [id number] Mirtaclip G4 - [id number] Implanted:Qty: 1 on 11/16/2022 at [facility] [employer] 06/25/2023 [id number] / / [id number] Clip Delivery Sytem G4 Xtw - [id number] Implanted:Qty: 1 on 11/16/2022 at [facility] [employer] [id number] 08/10/2023 [id number] TW / / [id number] Clip Delivery Sytem G4 Xtw - [id number] Implanted:Qty: 1 on 11/16/2022 at [facility] [employer] [id number] 09/10/2023 [id number] / / [id number] documented as of this encounter Advance [...] and were consensually agreed upon. Care Teams Maitre D' Relationship Specialty Start Date End Date Benny Waite DO [address] [place] [address] PCP - General Internal Medicine 04/03/21 documented as of this encounter
--- OUTSIDE RECORDS SUMMARY | 2023-12-04 10:19 | External Medical Summary | Summary of Care ---
Author Name Unknown Organization [facility] Address [address] [place] [address] Phone [phone] Care Team Providers Care Leacher Name Role Phone Benny Waite DO Primary Care Provider [phone] Reason for Visit * Reason Comments Follow Up Encounter Details Date Type Department Care Team (Late st Contact Info) Description 10/29/2023 8:00 AM EDT Office Visit Family Practice [address] [place] [address] [place] [address] Benny Waite DO [address] [place] [address] Dizziness*; CHF (congestive heart failure), NYHA class I, chronic, diastolic (HCC); Permanent atrial fibrillation (HCC); History of CVA (cerebrovascular accident); S/P MVR (mitral valve repair); Severe tricuspid regurgitation; Atherosclerosis of [place] coronary artery of [place] heart without angina pectoris; Gout, arthropathy; Presence of Watchman left atrial appendage closure device; BPH with obstruction/lower urinary tract symptoms; 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); Lumbar degenerative disc disease; Abdominal pain, generalized; Abnormal CBC Allergies Active Allergy Reactions Criticality Noted Date Comments Adhesive Tape 02/04/2017 Duloxetine High 07/13/2023 Other Reaction(s): confusion Levofloxacin 09/01/2019 documented as of this encounter (statuses as of 10/29/2023) Medications Medication Sig Dispensed Refills Start Date [...] 07/23/2023 Active Gabapentin 300 MG Oral Capsule (Neurontin)Indica [...] 1 week. 10 Suppository 0 10/26/2023 Active traMADol HCl 50 MG Oral Tablet (Ultram)Indicatio ns:Permanent atrial fibrillation (HCC),Lumbar degenerative disc disease TAKE ONE TABLET BY MOUTH IN THE MORNING, ONE TABLET AT NOON, AND ONE TABLET IN THE EVENING 90 Tablet 0 10/29/2023 Active busPIRone HCl 5 MG Oral Tablet (Buspar)Indicatio ns:Anxiety Take 1 Tablet by mouth in the morning and 1 Tablet before bedtime. 200 Tablet 3 06/18/2023 10/29/19 24 Discontinu ed(Medicat ion/Dose Changed) traMADol HCl 50 MG Oral Tablet (Ultram)Indicatio ns:Lumbar degenerative disc disease Take 1 Tablet by mouth in the morning and 1 Tablet at noon and 1 Tablet in the evening. 90 Tablet 0 09/28/2023 10/29/19 24 Discontinu ed(Refill) documented as of this encounter (statuses as of 10/29/2023) Active Problems Problem Noted Date Diagnosed Date Constipation 10/26/2023 Last Assessment & Plan: New issue. Reports he generally moves his bowels daily. No BM for a week. Some mild abdominal discomfort, he is able to pass gas. No nausea or vomiting. He took a dose of MiraLax and stool softener last night without results. He will go to [facility] for abdominal x-ray today to rule out [...] MVR (mitral valve repair) 11/16/2022 Atherosclerosis of [place] co 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 pectoris 08/11/2022 Severe tricuspid regurgitation 08/11/2022 Gout, arthropathy 07/20/2022 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 02/05/2022 Permanent atrial fibrillation 12/22/2021 Overview: Added automatically from request for surgery [id number] Last Assessment & Plan: S/p Watchman Current [...] in the Comments) Remote Patient Monitoring Vendor: [facility] Device(s): Connected Scale [...] as of this encounter (statuses as of 10/29/2023) Resolved Problems Problem Noted Date Diagnosed Date [...] as of this encounter (statuses as of 10/29/2023) Immunizations Name Administration Dates Next Due COVID-19 mRNA, LNP-s, No Pre serve, 2-Dose Series (Moderna) 08/20/2020,07/17/2020 COVID-19 mRNA, LNP-s, No Pre serve, 2-Dose Series (Archevos) 05/14/2021 COVID-19, LNP-s, No Preserve , Robbie-sucrose, Ages 12+ (Pfizer) 11/04/2021 COVID-19, MRNA-LNP, 23-24, P F, 30 MCG/0.3 mL, 12 YRS AND ABOVE, IM (Gigalocal-Comirnaty) 04/16/2023 Covid-19, Mrna, Lnp-s, Pf, B ivalent, [...] Reading Time Taken Comments Blood Pressure 118/58 10/29/2023 7:59 AM EDT Pulse 64 10/29/2023 7:59 AM EDT Temperature 36.4 C (97.6 F) 10/29/2023 7:59 AM ED T Respiratory Rate 16 10/29/2023 7:59 AM EDT Oxygen Saturation 96% 10/29/2023 7:59 AM EDT Inhaled Oxygen Concentration - - Weight 102 kg (224 lb 12.8 oz) 10/29/2023 7:59 A M EDT Height 170.8 cm (5' 7.25") 10/29/2023 7:59 AM ED T Body Mass Index 34.95 10/29/2023 7:59 AM EDT documented in this encounter Functional [...] encounter Progress Notes * Benny Waite, - 10/29/2023 8:29 AM EDT SUBJECTIVE: Nikolas Silvestre is a 83 year old male. Chief Complaint Patient presents with Follow Up HPI: Patient is an 83 year old male with a history of Atrial Fibrillation, Mitral Valve Repair, Diastolic CHF, Sleep Apnea, BiPAP intolerance, Lumbar DIsc DIsease, SI joint Arthritis, Internal Hemorrhoids, BPH, Gout, right occipital CVA, and Watchman Device Implant that is seen for follow up. Shortness of breath is unchanged with increased dose of Furosemide. Weight is up and appetite has improved. Hebecomes short of breath with ambulation and when he bends at the waist. No chest pain is present. Difficulty sleeping and fatigue are unchanged. Dizziness with position change has not improved. He does not believe that Buspar is helping with Anxiety. Chronic back pain is unchanged. Patient Active Problem List Diagnosis Code ADVANCE DIRECTIVE INFORMATION Elevated prostate specific antigen (PSA) R97.20 Macular puckering H35.379 BPH with obstruction/lower urinary tract symptoms N40.1, N13.8 CHF (congestive heart failure), NYHA class I, chronic, diastolic ([facility]) I50.32 Encounter for long-term (current) use of medications Z79.899 DEX (obstructive sleep apnea) G47.33 Moderate to severe mitral regurgitation I34.0 Lumbar degenerative disc disease M51.36 Current 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 ([facility]) F32.1 Permanent atrial fibrillation ([facility]) I48.21 Presence of Watchman left atrial appendage closure device Z95.818 Gout, arthropathy M10.9 Atherosclerosis of [place] co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 pectoris I25.10 Severe tricuspid regurgitation I07.1 S/P MVR (mitral valve repair) Z98.890 Sacroiliitis, not elsewhere classified ([facility]) M46.1 Visual field loss, 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 90 Tablet 3 Proventil HFA 108 (90 Base) MCG/ACT Inhalation Aerosol Solution Inhale 2 Puffs by mouth 3 times a day as needed for Dyspnea, Cough or Wheezing. 6.7 g 3 Furosemide 20 MG Oral Tablet (Lasix) Take 1 Tablet by mouth in the morning. 100 Tablet 3 traMADol HCl 50 MG Oral Tablet (Ultram) Take 1 Tablet by mouth in the morning and 1 Tablet at noon and 1 Tablet in the evening. 90 Tablet 0 Senna 8.6 MG Oral Capsule Take 8.6 mg by mouth daily. Bisacodyl 10 MG Rectal Suppository (Dulcolax) Administer 1 Suppository into the rectum daily as needed for Constipation. Do not use for more than 1 week. 10 Suppository 0 No current facility-administered medications for this visit. The patient's medication list was reviewed and updated as needed. Past Medical History: Diagnosis Date Aortic root enlargement (HCC) 10/01/2020 BPH with obstruction/lower urinary tract symptoms CHF (congestive heart failure), NYHA class I, chronic, diastolic ([facility]) 05/02/2019 Chronic atrial fibrillation ([facility]) 01/18/2018 Current 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 ([facility]) 07/09/2021 DDD (degenerative disc disease), lumbar Depression Gout, arthropathy 07/20/2022 History of CVA (cerebrovascular accident) 09/28/2023 Nonrheumatic mitral valve regurgitation 04/03/2021 Renal calculus Severe obesity with body mass index (BMI) of 35.0 to 39.9 with serious comorbidity ([facility]) 04/24/2022 Sleep apnea, obstructive Past Surgical History: Procedure Laterality Date CATARACT SURGERY,COMPLEX COLONOSCOPY, DIAGNOSTIC (RECTUM) 02/13/2021 diverticulosis, fair prep / [facility] COLORECTAL CANCER SCREEN; NOT AT RISK 04/04/2008 Diverticulosis CORONARY ANGIOGRAPHY W/RIGHT+LEFT CATH Bilateral 07/31/2022 CORONARY ANGIOGRAPHY W/RIGHT+LEFT CATH performed by Franco Mcgregor MD at [facility] CYSTOSCOPY 10/22/2011 CYSTOURETHROSCOPY performed by LIBERTAD FITZPATRICK at [facility] CYSTOSCOPY 09/13/2012 CYSTOURETHROSCOPY performed by Eliseo Menard MD at OR [facility] INJECT DX/THER SUBSTANCE INTERLAMINAR LUMBAR/SACRAL W IMAGE GUIDE 06/23/2021 INJECTION SPINE LUMBAR OR SACRAL performed by Anderson Easton DO at OR [facility] OTHER 02/13/1980 Dr. Ivcente DEX surgery OTHER left hand reconstruction PERC CLOSURE TRANSCATH LEFT ATRIAL APPENDAGE W/ENDOCARDIAL IMPLANT N/A 02/05/2022 PERCUTANEOUS CLOSURE LEFT ATRIAL APPENDAGE IMPLANT performed by Diamond Teran IV, MD at [facility] PSA 06/14/2004 3.42 PSA 06/14/2005 3.72 PSA 02/13/2008 5.17 REMOVAL OF PROSTATE (TURP) 10/22/2011 TRANSURETHRAL RESECTION PROSTATE ELECTROSURGICAL performed by LIBERTAD FITZPATRICK at [facility] REMOVAL OF PROSTATE (TURP) 09/13/2012 TRANSURETHRAL RESECTION PROSTATE ELECTROSURGICAL performed by Eliseo Menard MD at [facility] REMOVE CATARACT, INSERT LENS PROSTH OU REMOVE TONSILS & ADENOIDS, UNDER 12 SACROILIAC JOINT INJECT W/GUIDANCE 11/11/2022 INJECTION SACROILIAC JOINT performed by Anderson Easton DO at [facility] SACROILIAC JOINT INJECT W/GUIDANCE 02/10/2023 INJECTION SACROILIAC JOINT performed by Anderson Easton DO at OR [facility] SACROILIAC JOINT INJECT W/GUIDANCE 05/26/2023 INJECTION SACROILIAC JOINT performed by Anderson Easton DO at OR [facility] TRANSCATH REPAIR MITRAL VALVE, INITIAL Bilateral 11/16/2022 TRANSCATHETER MITRAL VALVE REPAIR performed by Franco Mcgregor MD at [facility] VITRECTOMY W/ REMOVE OF EPIRETINAL MEMBRANE 11/12/2008 Right eye Review of patient's allergies indicates: Allergen Reactions Duloxetine Other Reaction(s): confusion Adhesive Tape Levaquin [Levofloxacin] Review of Systems Constitutional: Positive for fatigue. Negative for chills, fever and unexpected weight change. HENT: Negative for congestion, sore throat and trouble swallowing. Respiratory: Positive for shortness of breath. Negative for cough and wheezing. Cardiovascular: Negative for chest pain, palpitations and leg swelling. Gastrointestinal: Positive for constipation. Negative for abdominal pain, blood in stool, diarrhea,nausea and vomiting. Genitourinary: Negative for dysuria and hematuria. Musculoskeletal: Positive for arthralgias, back pain and gait problem. Neurological: Positive for dizziness. Negative for syncope and headaches. Psychiatric/Behavioral: Positive for sleep disturbance. Negative for confusion and decreased concentration. OBJECTIVE: BP 118/58 | Pulse 64 | Temp 36.4 C (97.6 F) (Tympanic) | Resp 16 | Ht 1.708 m (5' 7.25") | Wt 102 kg (224 lb 12.8 oz) | SpO2 96% | BMI 34.95 kg/m | BSA 2.2 m Physical Exam Vitals and nursing note reviewed. Constitutional: General: He is not in acute distress. Appearance: Normal appearance. He is not toxic-appearing. HENT: Head: Normocephalic and atraumatic. Cardiovascular: Rate and Rhythm: Normal rate. Rhythm irregular. Heart sounds: Murmur heard. Systolic murmur is present. No gallop. Pulmonary: Effort: Pulmonary effort is [...] and time. Mental status is at baseline. Gait: Gait abnormal. Psychiatric: Mood and Affect: Mood normal. Behavior: Behavior normal. Thought Content: Thought content normal. PLAN AND ASSESSMENT: Dizziness (Primary) - EXTERNAL EKG 8 TO 15 DAYS HOME ENROLLMENT; Future; Expected date: 10/30/2023 - EXTERNAL EKG 8 TO 15 DAYS HOME ENROLLMENT Continue Meclizine Stop Buspar CHF (congestive heart failure), NYHA class I, chronic, diastolic (HCC) Continue Furosemide Permanent atrial fibrillation (HCC) - EXTERNAL EKG 8 TO 15 DAYS HOME ENROLLMENT; Future; Expected date: 10/30/2023 - EXTERNAL EKG 8 TO 15 DAYS HOME ENROLLMENT Continue Metoprolol ER S/P Watchman History of CVA (cerebrovascular accident) Continue ASA S/P MVR (mitral valve repair) Severe tricuspid regurgitation Atherosclerosis of [place] coronary artery of [place] heart without angina pectoris Continue ASA, and Metoprolol ER Gout, arthropathy Continue Allopurinol 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 Abdominal pain, generalized Due to constipation Patient taking Senna and Docusate Abnormal CBC Follow Up: Return in about 1 month (around 11/29/2023), or if symptoms worsen or fail to improve. Benny Waite DO 8:29 AM 10/29/2023 * Marnie Baker LPN - 10/29/2023 8:28 AM EDT Zio applied per order documented in this encounter Nursing Notes * Marnie Baker LPN - 10/29/2023 7:59 AM EDT Continues to have back pain and sob. documented in this encounter Plan of Treatment Upcoming Encounters Date Type Department Care Team (Late st Contact Info) Description 11/18/2023 8:30 AM EDT Home Visit [facility] [address] [address] Myrtle Allen RN [address] [place] [address] 12/03/2023 8:40 AM EDT Office Visit [address] [place] [address] Benny Waite DO [address] [place] [address] 12/03/2023 3:30 PM EDT Office Visit [facility] Center, [facility] [address] [address] Luann Guerra PA-C [address] [place] [address] 12/13/2023 11:20 AM EDT Office Visit Family Practice [address] [facility] [address] [place] [address] Benny Waite, [address] [place] [address] 12/21/2023 11:00 AM EDT Nurse Only Ancillary [address] [address] College, Nurse Annual Wellness Visit [address] [address] 01/12/2024 8:30 AM EDT [facility] [address] [place] [address] Franco Mcgregor MD [address] [place] [address] 01/25/2024 1:00 PM EDT Telemedicine [facility] [address] [place] [address] Yadira Omalley CRNP [address] [place] [address] Ines Castro, [facility] [employer] Machine Adjuster [address] [place] [address] 02/15/2024 8:00 AM EDT Office Visit Cardiology, [facility] [address] [place] [address] Casimiro Barraza MD [address] [place] [address] Scheduled Orders Name Type Priority Associated Diagnoses Orde r Schedule EXTERNAL EKG 8 TO 15 DAYS HOME ENROLLMENT Holter Routine Dizziness Permanent atrial fibrillation (HCC) Expected: 10/30/2023 (Approximate), Expires: 10/28/2024 Health Maintenance Due Date Last Done Comments [...] this encounter Medical Devices Implanted Type Area Scrubbing Machine Operator Device Identifier Shelf Expiration Date Model / Serial / Lot Device Watchman Flx 35mm - [id number] Implanted:Qty: 1 on 02/05/2022 by Diamond Teran IV, MD at [facility] Hologic : INTRV CARD [id number] 10/20/2024 [id number] / / [id number] Cath Thermodilution 6fr - [id number] Implanted:Qty: 1 on 07/31/2022 by Franco Mcgregor MD at [facility] [employer] [id number] 04/30/2024 [id number] / / [id number] Mirtaclip G4 - [id number] Implanted:Qty: 1 on 11/16/2022 at [facility] [employer] 06/25/2023 [id number] / / [id number] Clip Delivery Sytem G4 Xtw - [id number] Implanted:Qty: 1 on 11/16/2022 at [facility] [employer] [id number] 08/10/2023 [id number] / / [id number] Clip Delivery Sytem G4 Xtw - [id number] Implanted:Qty: 1 on 11/16/2022 at [facility] [employer] [id number] 09/10/2023 [id number] / / [id number] documented as of this encounter Visit Diagnoses Diagnosis Dizziness- Primary Dizziness and giddiness CHF (congestive heart failure), NYHA class I, chronic, diastolic (HCC) Permanent atrial fibrillation (HCC) Atrial fibrillation History of CVA (cerebrovascular accident) Transient ischemic attack (TIA), and cerebral infarction without residual deficits S/P MVR (mitral valve repair) Other postprocedural status Severe tricuspid regurgitation Diseases of tricuspid valve Atherosclerosis of [place] coronary artery of [place] heart without angina pectoris Gout, arthropathy Gouty arthropathy, unspecified Presence of Watchman left atrial appendage 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 Care Teams Leacher Relationship Specialty Start Date End Date Benny Waite DO [address] [place] [address] PCP - General Internal Medicine 04/03/21 documented as of this encounter
--- OUTSIDE RECORDS SUMMARY | 2023-12-04 10:19 | External Medical Summary | Summary of Care ---
Author Name Unknown Organization [facility] Address [address] [facility] [place] [address] Phone [phone] Care Team Providers Care Spice Fumigator Name Role Phone Benny Waite DO Primary Care Provider [phone] Reason for Visit * Reason Onset Date Comments [facility]: Maintenance 10/27/2023 Encounter Details Date Type Department Care Team (Late st Contact Info) Description 10/27/2023 12:45 PM EDT Scheduled Telephone [facility], [facility] [address] [place] [address] Coordinator, [facility] [address] [place] [address] Allergies Active Allergy Reactions Criticality Noted Date [...] without results. He will go to [facility] for abdominal x-ray today to rule [...] MVR (mitral valve repair) 11/16/2022 Atherosclerosis of [place] co 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 pectoris 08/11/2022 Severe tricuspid regurgitation 08/11/2022 Gout, arthropathy 07/20/2022 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 02/05/2022 Permanent atrial fibrillation 12/22/2021 Overview: Added automatically from request for surgery [id number] Last Assessment & Plan: S/p Watchman Current [...] in the Comments) Remote Patient Monitoring Vendor: [facility] Device(s): Connected Scale Self - Management Plan [...] MCG/0.3 mL, 12 YRS AND ABOVE, IM ([facility] 04/16/2023 Covid-19, Mrna, Lnp-s, Pf, B ivalent, [...] Telephone Encounter - Irlanda Real LPN - 10/27/2023 10:52 AM EDT See telephone encounter documented in this encounter Plan of Treatment Upcoming Encounters Date Type Department Care Team (Late st Contact Info) Description 10/29/2023 8:00 AM EDT Office Visit Family Practice 65 [facility] 293 [place] [address] Benny Waite, [address] [place] [address] 11/18/2023 8:30 AM EDT Home Visit [facility] [address] [place] [address] Myrtle Allen RN [address] [place] [address] 12/03/2023 3:30 PM EDT Office Visit Interventional Pain Center, [facility] [address] [place] [address] Luann Guerra PA-C [facility] [place] [address] 12/13/2023 11:20 AM EDT Office Visit Family Practice [address] [place] [address] 293 [place] [address] Benny Waite, [address] [place] [address] 12/21/2023 11:00 AM EDT Nurse Only Ancillary [address] [place] [address] 293 [facility], [place] [address] [place], Nurse Annual Wellness Visit [address] [place] [address], [place] [address] 01/12/2024 8:30 AM EDT Office Visit Cardiology, [facility] [place] [address] Franco Mcgregor MD [address] [place] [facility] [address] 02/15/2024 8:00 AM EDT Office Visit Cardiology, [facility] [address] [place] [address] Casimiro Barraza MD [address] [place] [address] Health Maintenance Due Date Last Done Comments [...] this encounter Medical Devices Implanted Type Area Social Worker Clinical Device Identifier Shelf Expiration Date Model / Serial / Lot Device Watchman Flx 35mm - [id number] Implanted:Qty: 1 on 02/05/2022 by Diamond Teran IV, MD at [facility] [employer] : INTRV CARD [id number] 10/20/2024 [id number] 50 / / [id number] Cath Thermodilution 6fr - [id number] Implanted:Qty: 1 on 07/31/2022 by Franco Mcgregor MD at [facility] [employer] [id number] 04/30/2024 [id number] / / [id number] Mirtaclip G4 - [id number] Implanted:Qty: 1 on 11/16/2022 at [facility] [employer] 06/25/2023 [id number] / / [id number] Clip Delivery Sytem G4 Xtw - [id number] Implanted:Qty: 1 on 11/16/2022 at [facility] [employer] [id number] 08/10/2023 [id number] TW / / [id number] Clip Delivery Sytem G4 Xtw - [id number] Implanted:Qty: 1 on 11/16/2022 at [facility] [employer] [id number] 09/10/2023 [id number] / / [id number] documented as of this encounter Advance [...] and were consensually agreed upon. Care Teams Spice Fumigator Relationship Specialty Start Date End Date Benny Waite DO [address] [place] [address] PCP - General Internal Medicine 04/03/21 documented as of this encounter
--- OUTSIDE RECORDS SUMMARY | 2023-12-04 10:19 | External Medical Summary | Summary of Care ---
Author Name Unknown Organization [facility] Address [address] [place] [facility] [place] [address] Phone [phone] Care Team Providers Care Hunting Guide Name Role Phone Benny Waite DO Primary Care Provider [phone] Reason for Visit * Reason Comments Follow Up Encounter Details Date Type Department Care Team (Late st Contact Info) Description 10/29/2023 8:00 AM EDT Office Visit Family Practice [address] [place] [address] [place] [address] Benny Waite DO [address] [place] [address] Dizziness*; CHF (congestive heart failure), NYHA class I, chronic, diastolic (HCC); Permanent atrial fibrillation (HCC); History of CVA (cerebrovascular accident); S/P MVR (mitral valve repair); Severe tricuspid regurgitation; Atherosclerosis of [place] coronary artery of [place] heart without angina pectoris; Gout, arthropathy; Presence [...] ns:Permanent atrial fibrillation (HCC),Lumbar degenerative disc disease Take 1 Tablet by mouth in the morning and 1 Tablet at noon and 1 Tablet in the evening. 90 Tablet 0 10/29/2023 Active busPIRone HCl [...] night without results. He will go to [facility] for abdominal x-ray today to rule [...] MVR (mitral valve repair) 11/16/2022 Atherosclerosis of [place] co 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 pectoris 08/11/2022 Severe tricuspid regurgitation 08/11/2022 Gout, arthropathy 07/20/2022 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 02/05/2022 Permanent atrial fibrillation 12/22/2021 Overview: Added automatically from request for surgery [id number] Last Assessment & Plan: S/p Watchman Current [...] Comments) Remote Patient Monitoring Vendor: [facility] Device(s): Connected Scale Self - Management Plan [...] mRNA, LNP-s, No Pre serve, 2-Dose Series (FOUNDD) 05/14/2021 COVID-19, LNP-s, No Preserve , Robbie-sucrose, Ages 12+ (Pfizer) 11/04/2021 COVID-19, MRNA-LNP, 23-24, P F, 30 MCG/0.3 mL, 12 YRS AND ABOVE, IM (BrightTALK-Comirnaty) 04/16/2023 Covid-19, Mrna, Lnp-s, Pf, B ivalent, [...] heart failure), NYHA class I, chronic, diastolic ([facility]) I50.32 Encounter for long-term (current) use of medications Z79.899 DEX (obstructive sleep apnea) G47.33 Moderate to severe mitral regurgitation I34.0 Lumbar degenerative disc disease M51.36 Current 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 ([facility]) F32.1 Permanent atrial fibrillation ([facility]) I48.21 Presence of Watchman left atrial appendage closure device Z95.818 Gout, arthropathy M10.9 Atherosclerosis of [place] co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 pectoris I25.10 Severe tricuspid regurgitation I07.1 S/P MVR (mitral valve repair) Z98.890 Sacroiliitis, not elsewhere classified ([facility]) M46.1 Visual field loss, 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, 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 [...] heart failure), NYHA class I, chronic, diastolic ([facility]) 05/02/2019 Chronic atrial fibrillation ([facility]) 01/18/2018 Current 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 ([facility]) 07/09/2021 DDD (degenerative disc disease), lumbar Depression Gout, arthropathy 07/20/2022 History of CVA (cerebrovascular accident) 09/28/2023 Nonrheumatic mitral valve regurgitation 04/03/2021 Renal calculus Severe obesity with body mass index (BMI) of 35.0 to 39.9 with serious comorbidity ([facility]) 04/24/2022 Sleep apnea, obstructive Past Surgical History: Procedure Laterality Date CATARACT SURGERY,COMPLEX COLONOSCOPY, DIAGNOSTIC (RECTUM) 02/13/2021 diverticulosis, fair prep / [facility] COLORECTAL CANCER SCREEN; NOT AT RISK 04/04/2008 Diverticulosis CORONARY ANGIOGRAPHY W/RIGHT+LEFT CATH Bilateral 07/31/2022 CORONARY ANGIOGRAPHY W/RIGHT+LEFT CATH performed by Franco Mcgregor MD at [facility] CYSTOSCOPY 10/22/2011 CYSTOURETHROSCOPY performed by LIBERTAD FITZPATRICK at [facility] CYSTOSCOPY 09/13/2012 CYSTOURETHROSCOPY performed by Eliseo Menard MD at OR [facility] INJECT DX/THER SUBSTANCE INTERLAMINAR LUMBAR/SACRAL W IMAGE GUIDE 06/23/2021 INJECTION SPINE LUMBAR OR SACRAL performed by Anderson Easton DO at OR [facility] OTHER 02/13/1980 Dr. Vicente DEX surgery OTHER left hand reconstruction PERC CLOSURE TRANSCATH LEFT ATRIAL APPENDAGE W/ENDOCARDIAL IMPLANT N/A 02/05/2022 PERCUTANEOUS CLOSURE LEFT ATRIAL APPENDAGE IMPLANT performed by Diamond Teran IV, MD at [facility] PSA 06/14/2004 3.42 PSA 06/14/2005 3.72 PSA 02/13/2008 5.17 REMOVAL OF PROSTATE (TURP) 10/22/2011 TRANSURETHRAL RESECTION PROSTATE ELECTROSURGICAL performed by LIBERTAD FITZPATRICK at [facility] REMOVAL OF PROSTATE (TURP) 09/13/2012 TRANSURETHRAL RESECTION PROSTATE ELECTROSURGICAL performed by Eliseo Menard MD at [facility] REMOVE CATARACT, INSERT LENS PROSTH OU REMOVE TONSILS & ADENOIDS, UNDER 12 SACROILIAC JOINT INJECT W/GUIDANCE 11/11/2022 INJECTION SACROILIAC JOINT performed by Anderson Easton DO at [facility] SACROILIAC JOINT INJECT W/GUIDANCE 02/10/2023 INJECTION SACROILIAC JOINT performed by Anderson Easton DO at OR [facility] SACROILIAC JOINT INJECT W/GUIDANCE 05/26/2023 INJECTION SACROILIAC JOINT performed by Anderson Easton DO at OR [facility] TRANSCATH REPAIR MITRAL VALVE, INITIAL Bilateral 11/16/2022 TRANSCATHETER MITRAL VALVE REPAIR performed by Franco Mcgregor MD at [facility] VITRECTOMY W/ REMOVE OF EPIRETINAL MEMBRANE 11/12/2008 [...] valve repair) Severe tricuspid regurgitation Atherosclerosis of [place] coronary artery of [place] heart without angina pectoris Continue ASA, and [...] Description 11/18/2023 8:30 AM EDT Home Visit [facility] [address] [place] [address] Myrtle Allen RN [address] [place] [address] 12/03/2023 8:40 AM EDT Office Visit [address] 293 [place] [address] Benny Waite DO 293 [place] [address] 12/03/2023 3:30 PM EDT Office Visit [facility], [facility] [address] [place] [address] Luann Guerra PA-C [address] [place] [address] 12/13/2023 11:20 AM EDT Office Visit Family Practice 65 [facility] [address] [place] [address] Benny Waite, [address] [place] [address] 12/21/2023 11:00 AM EDT Nurse Only Ancillary [address] [address] College, Nurse Annual Wellness Visit [address] [address] 01/12/2024 8:30 AM EDT [facility] [address] [place] [address] Franco Mcgregor MD [address] [place] [address] 01/25/2024 1:00 PM EDT Telemedicine [facility] at [facility] [address] [place] [address] Yadira Omalley CRNP [address] [place] [address] Ines Castro, Community Health Quality Control Tech [employer] [address] [place] [address] 02/15/2024 8:00 AM EDT Office Visit Cardiology, [facility] [address] [place] [address] Casimiro Barraza MD [address] [place] [address] Scheduled Orders Name Type Priority Associated Diagnoses [...] this encounter Medical Devices Implanted Type Area Bender Hand Device Identifier Shelf Expiration Date Model / Serial / Lot Device Watchman Flx 35mm - [id number] Implanted:Qty: 1 on 02/05/2022 by Diamond Teran IV, MD at [facility] Banno : INTRV CARD [id number] 10/20/2024 [id number] 50 / / [id number] Cath Thermodilution 6fr - [id number] Implanted:Qty: 1 on 07/31/2022 by Franco Mcgregor MD at [facility] [employer] [id number] 04/30/2024 [id number] / / [id number] Mirtaclip G4 - [id number] Implanted:Qty: 1 on 11/16/2022 at [facility] [employer] 06/25/2023 [id number] / / [id number] Clip Delivery Sytem G4 Xtw - [id number] Implanted:Qty: 1 on 11/16/2022 at [facility] [employer] [id number] 08/10/2023 [id number] / / [id number] Clip Delivery Sytem G4 Xtw - [id number] Implanted:Qty: 1 on 11/16/2022 at [facility] [employer] [id number] 09/10/2023 [id number] / / [id number] documented as of this encounter Visit Diagnoses Diagnosis Dizziness- Primary Dizziness and giddiness CHF (congestive heart failure), NYHA class I, chronic, diastolic (HCC) Permanent atrial fibrillation (HCC) Atrial fibrillation History of CVA (cerebrovascular accident) Transient ischemic attack (TIA), and cerebral infarction without residual deficits S/P MVR (mitral valve repair) Other postprocedural status Severe tricuspid regurgitation Diseases of tricuspid valve Atherosclerosis of [place] coronary artery of [place] heart without angina pectoris Gout, arthropathy Gouty [...] and were consensually agreed upon. Care Teams Hunting Guide Relationship Specialty Start Date End Date Benny Waite DO 293 [place] [address] PCP - General Internal Medicine 04/03/21 documented as of this encounter
--- OUTSIDE RECORDS SUMMARY | 2023-12-04 10:19 | External Medical Summary | Summary of Care ---
Author Name Unknown Organization [facility] Address [address] [facility] [place] [address] Phone [phone] Care Team Providers Care Fuel Efficient Aircraft Designer Name Role Phone Benny Waite DO Primary Care Provider Reason for Visit * Reason Onset Date Comments [facility]: Screening 10/30/2023 Encounter Details Date Type Department Care Team (Late st Contact Info) Description 10/30/2023 Telephone [facility], [facility] [address] [facility] [place] [address] Region, Nurse [address] [place] [address] [facility]: Screening Allergies Active Allergy Reactions Criticality Noted Date Comments Adhesive Tape 02/04/2017 Duloxetine High 07/13/2023 Other Reaction(s): confusion Levofloxacin 09/01/2019 documented as of this encounter (statuses as of 10/30/2023) Medications Medication Sig Dispensed Refills Start Date [...] THE EVENING 90 Tablet 0 10/29/2023 Active documented as of this encounter (statuses as of 10/30/2023) Active Problems Problem Noted Date Diagnosed Date Constipation 10/26/2023 Last Assessment & Plan: New issue. Reports he generally moves his bowels daily. No BM for a week. Some mild abdominal discomfort, he is able to pass gas. No nausea or vomiting. He took a dose of MiraLax and stool softener last night without results. He will go to [facility] for abdominal x-ray today to rule [...] Overview: Added automatically from request for surgery [id number] Last Assessment & Plan: S/p Watchman Current [...] as of this encounter (statuses as of 10/30/2023) Resolved Problems Problem Noted Date Diagnosed Date [...] as of this encounter (statuses as of 10/30/2023) Immunizations Name Administration Dates Next Due COVID-19 mRNA, LNP-s, No Pre serve, 2-Dose Series (Moderna) 08/20/2020,07/17/2020 COVID-19 mRNA, LNP-s, No Pre serve, 2-Dose Series (Pfizer) 05/14/2021 COVID-19, LNP-s, No Preserve , Robbie-sucrose, Ages 12+ (Yesmywine) 11/04/2021 COVID-19, MRNA-LNP, 23-24, P F, 30 MCG/0.3 mL, 12 YRS AND ABOVE, IM ([employer]) 04/16/2023 Covid-19, Mrna, Lnp-s, Pf, B ivalent, 30 Mcg, IM, 12 yrs and above (Yesmywine) 03/17/2022 Pneumococcal Conjugate Vacc, 13 Valent (Prevnar) [...] Telephone Encounter - Haritha Peña LPN - 10/30/2023 9:46 AM EDT Images from the original note were not included. [facility] Remote Patient Monitoring Unable to contact patient: Trigger type: Abnormal reading(s): Device(s) Triggered: AMC (Advanced Monitored Caregiving): Scale: Trigger weight: 221.8 lbs; weight increased 4.2 lbs in 4 day(s) Plan: Follow up call scheduled LM requesting return call Pt had OV w PCP yesterday and there was no mention of sx of fluid overload. documented in this encounter Plan of Treatment Upcoming Encounters Date Type Department Care Team (Late st Contact Info) Description 10/31/2023 4:00 PM EDT Scheduled Telephone [facility], [facility] [address] [place] [address] [facility], Nurse [facility] [address] [place] [address] 11/18/2023 8:30 AM EDT Home Visit [facility] [place], [facility] [address] [place] [address] Myrtle Allen RN [address] [place] [address] 12/03/2023 8:40 AM EDT Office Visit Family [address] 293 [facility] [place] [address] Benny Waite DO 293 [place] [address] 12/03/2023 3:30 PM EDT Office Visit Inter[facility], [facility] [address] [place] [address] Luann Guerra PA-C [address] [place] [address] 12/13/2023 11:20 AM EDT Office Visit Family Practice [address] [place] [address] 293 [place] [address] Benny Waite, DO 293 [place] [address] 12/21/2023 11:00 AM EDT Nurse Only Ancillary 65 [facility] 293 [place] [address] College, Nurse Annual Wellness Visit [address] [place] [address] 01/12/2024 8:30 AM EDT Office Visit Cardiology, [facility] [address] [place] [address] Franco Mcgregor MD [address] [place] [address] 01/25/2024 1:00 PM EDT Telemedicine [facility], [facility] [address] [place] [address] Yadira Omalley CRNP 132 [place] [address] Ines Castro, Community Health Rn Er [address] [place] [address] 02/15/2024 8:00 AM EDT Office Visit Cardiology, [facility] [address] [place] [address] Casimiro Barraza MD 132 [place] [address] Health Maintenance Due Date Last Done Comments [...] this encounter Medical Devices Implanted Type Area Therapeutic Dietitian Device Identifier Shelf Expiration Date Model / Serial / Lot Device Watchman Flx 35mm - [id number] Implanted:Qty: 1 on 02/05/2022 by Diamond Teran IV, MD at [facility] [employer] Index : INTRV CARD [id number] 10/20/2024 [id number] 50 / / [id number] Cath Thermodilution 6fr - [id number] Implanted:Qty: 1 on 07/31/2022 by Franco Mcgregor MD at [facility] [employer] [id number] 04/30/2024 [id number] / / [id number] Mirtaclip G4 - [id number] Implanted:Qty: 1 on 11/16/2022 at [facility] [employer] 06/25/2023 [id number] / / [id number] Clip Delivery Sytem G4 Xtw - [id number] Implanted:Qty: 1 on 11/16/2022 at [facility] [employer] [id number] 08/10/2023 [id number] TW / / [id number] Clip Delivery Sytem G4 Xtw - [id number] Implanted:Qty: 1 on 11/16/2022 at [facility] [employer] [id number] 09/10/2023 [id number] TW / / [id number] documented as of this encounter Advance [...] and were consensually agreed upon. Care Teams Fuel Efficient Aircraft Designer Relationship Specialty Start Date End Date Benny Waite DO 293 [place] [address] PCP - General Internal Medicine 04/03/21 documented as of this encounter
--- OUTSIDE RECORDS SUMMARY | 2023-12-04 10:19 | External Medical Summary | Summary of Care ---
Author Name Unknown Organization [facility] Address [address] [place] [address] Phone [phone] Care Team Providers Care Bankruptcy Attorney Name Role Phone Benny Waite DO Primary Care Provider [phone] Reason for Visit * Reason Onset Date Comments Appointment 10/26/2023 Encounter Details Date Type Department Care Team (Late st Contact Info) Description 10/26/2023 Telephone [facility], [facility] [address] [facility] [place] [address] Bindu Colon, Community Health Funds Development Director [address] [place] [address] Appointment Allergies Active Allergy Reactions Criticality Noted [...] at goal today. Sacroiliitis, not elsewhere classified S/P MVR (mitral valve repair) 11/16/2022 Atherosclerosis of [place] co 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 pectoris 08/11/2022 Severe tricuspid regurgitation 08/11/2022 Gout, arthropathy 07/20/2022 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 02/05/2022 Permanent atrial fibrillation 12/22/2021 Overview: Added automatically from request for surgery [id number] Last Assessment & Plan: S/p Watchman Current [...] No guns in the home. Continues buspar. [facility] Crisis number given to pt by [facility] health CM referral placed Moderate to severe [...] [facility] Device(s): Connected Scale Connected Pulse Ox Connected BP Cuff Self - Management Plan Double dose of Furosemide for 3 days Exacerbation Plan BMP Additional Comments: Euvolemic today. Pt requests [facility] scale, BP and pulse ox which was [...] mRNA, LNP-s, No Pre serve, 2-Dose Series ([email or web address]) 05/14/2021 COVID-19, LNP-s, No Preserve , Robbie-sucrose, Ages 12+ (Pfizer) 11/04/2021 COVID-19, MRNA-LNP, 23-24, P F, 30 MCG/0.3 mL, 12 YRS AND ABOVE, IM ([facility]) 04/16/2023 Covid-19, Mrna, Lnp-s, [...] encounter Miscellaneous Notes * Telephone Encounter - Bindu Colon Community Health Funds Development Director - 10/26/2023 11:58 AM EDT TT from Simona Omalley to schedule abdominal xray for today for Pt at [facility]. Called and spoke withDenise. She stated that for xrays Pt does not need an appt. But must be there prior to 2:55pm as that is when they stop accepting patients. Called Pt and advised. He stated that he would go . documented in this encounter Plan of Treatment Upcoming Encounters Date Type Department Care Team (Late st Contact Info) Description 10/29/2023 8:00 AM EDT Office Visit Family Practice 65 [facility] 293 [place] [address] Benny Waite, DO 293 [place] [address] 11/18/2023 8:30 AM EDT [facility] 132 [facility] [place] [address] Myrtle Allen RN 132 [place] [address] 12/03/2023 3:30 PM EDT Office Visit Interventional [facility] Center, [facility] 132 [facility] [place] [address] Luann Guerra PA-C 132 [facility] [place] [address] 12/13/2023 11:20 AM EDT Office Visit Family Practice 65 [facility] 293 [place] [address] Benny Waite, DO 293 [place] [address] 12/21/2023 11:00 AM EDT Nurse Only Ancillary 65 [facility] 293 [place] [address] [place], Nurse Annual Wellness Visit [address] [place] [address] 01/12/2024 8:30 AM EDT Office Visit Cardiology, [facility] 132 [facility] [place] [address] Franco Mcgregor MD [address] [place] [facility] [place] [address] 02/15/2024 8:00 AM EDT Office Visit Cardiology, [facility] [address] [place] [address] Casimiro Barraza MD [address] [place] [address] Health Maintenance Due Date Last Done Comments [...] encounter Medical Devices Implanted Type Area Director Labor Standards Device Identifier Shelf Expiration Date Model / Serial / Lot Device Watchman Flx 35mm - [id number] Implanted:Qty: 1 on 02/05/2022 by Diamond Teran IV, MD at [facility] [employer] : INTRV CARD [id number] 10/20/2024 [id number] / / [id number] Cath Thermodilution 6fr - [id number] Implanted:Qty: 1 on 07/31/2022 by Franco Mcgregor MD at [facility] [employer] [id number] 04/30/2024 [id number] / / [id number] Mirtaclip G4 - [id number] Implanted:Qty: 1 on 11/16/2022 at [facility] [employer] 06/25/2023 [id number] / / [id number] Clip Delivery Sytem G4 Xtw - [id number] Implanted:Qty: 1 on 11/16/2022 at [facility] [employer] [id number] 08/10/2023 [id number] TW / / [id number] Clip Delivery Sytem G4 Xtw - [id number] Implanted:Qty: 1 on 11/16/2022 at [facility] [employer] [id number] 09/10/2023 [id number] / / [id number] documented as of this encounter Advance [...] and were consensually agreed upon. Care Teams Bankruptcy Attorney Relationship Specialty Start Date End Date Benny Waite DO [address] [place] [address] PCP - General Internal Medicine 04/03/21 documented as of this encounter
--- OUTSIDE RECORDS SUMMARY | 2023-12-04 10:19 | External Medical Summary | Summary of Care ---
Author Name Unknown Organization [facility] Address [address] [facility] [place] [address] Phone [phone] Care Team Providers Care University Manager Name Role Phone Benny Waite DO Primary Care Provider [phone] Reason for Visit * Reason Onset Date Comments [facility]: Maintenance 10/27/2023 Encounter Details Date Type Department Care Team (Late st Contact Info) Description 10/27/2023 Telephone [facility], [facility] [address] [facility] [place] [address] [facility], Nurse [facility] [address] [facility] JON ABBASI [phone] [facility]: Maintenance Allergies Active Allergy [...] night without results. He will go to [facility] for abdominal x-ray today to rule [...] (mitral valve repair) 11/16/2022 Atherosclerosis of [place] co 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 pectoris 08/11/2022 Severe tricuspid regurgitation 08/11/2022 Gout, arthropathy 07/20/2022 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 02/05/2022 Permanent atrial fibrillation 12/22/2021 Overview: Added automatically from request for surgery [id number] Last Assessment & Plan: S/p Watchman Current [...] in the Comments) Remote Patient Monitoring Vendor: [facility] Device(s): Connected Scale Self [...] MCG/0.3 mL, 12 YRS AND ABOVE, IM ([facility]) 04/16/2023 Covid-19, Mrna, Lnp-s, Pf, B ivalent, 30 Mcg, IM, 12 yrs and above (Budding [employer]) 03/17/2022 Pneumococcal Conjugate Vacc, 13 Valent (Prevnar) [...] Encounter - Irlanda Real LPN - 10/27/2023 10:25 AM EDT Images from the original note were not included. [facility] Remote Patient Monitoring Able to contact patient: Trigger type: Abnormal reading(s): AMC (Advanced Monitored Caregiving): Scale: Trigger weight: 219.8 lbs; weight increased 7.1 lbs in 6 day(s) Trigger priority per AMC: high Patient takes diuretic medication: Yes, reviewed current diuretic use: Name of medication: furosemide Dose: 20 mg Frequency: daily Symptom review: Abdominal Pain: + Abdominal Fullness: + Diet Reviewed: Yes. Patient has had any foods high in sodium: No Fluid Intake Reviewed: Yes. Patient is on a fluid restriction: Yes, restriction amount in milliliters or liters: 64 oz Adherent to restriction: No, drinks about 120 oz daily Self-Management Plan Reviewed: Red Flags: none listed [...] as applicable): [x] High trigger priority on [facility] [] Confirmed tympanic equivalent temperature greater than [...] selection justification: Spoke with pt denies increased SOB, - edema. Abdominal bloating continues. Abdomin sore to touch per pt this has been ongoing. He did not go for xray and did not use suppositories. He had 3 small soft bowel movements yesterday and 2 today. He is passing gas,denies N/V. He believes he is steady on scale. Believes he is adherent to sodium restriction, receives meals on wheels. Had pepper steak with mash potatoes and carrots for dinner, small amount of gravy on meat. C/O sore throat and dry peeling lips x 1 weeks. Denies cough or congestion. He drinks approx ten 12 oz glasses of water daily. Denies any missed doses of medication. Overall risk and identified plan: High risk: Route to RNCM (Registered Nurse Home Stereo Equipment Installer) and Advance Practitioner documented in this encounter Plan of Treatment Upcoming Encounters Date Type Department Care Team (Late st Contact Info) Description 10/27/2023 12:45 PM EDT Scheduled Telephone [facility], [facility] [address] [place] [address] Coordinator, [facility] [address] [place] [address] 10/29/2023 8:00 AM EDT Office Visit Family Practice [address] [place] [address] 293 [place] [address] Benny Waite DO 293 [place] [address] 11/18/2023 8:30 AM EDT [facility] Visit [facility] [place], [facility] [address] [place] [address] Myrtle Allen RN [address] [place] [address] 12/03/2023 3:30 PM EDT Office Visit Interventional Pain Center, [facility] [address] [place] [address] Luann Guerra PA-C 132 [facility] [place] [address] 12/13/2023 11:20 AM EDT Office Visit Family Practice [address] [place] [address] 293 [place] [address] Benny Waite, 293 [place] [address] 12/21/2023 11:00 AM EDT Nurse Only Ancillary 65 [facility] 293 [place] [address] [place], Nurse Annual Wellness Visit [address] [place] [address] 01/12/2024 8:30 AM EDT Office Visit Cardiology, [facility] 132 [facility] [place] [address] Franco Mcgregor MD [address] [place] [address] 02/15/2024 8:00 AM EDT Office Visit Cardiology, [facility] 132 [facility] [place] [address] Casimiro Barraza MD 132 [facility] [address] Health Maintenance Due Date Last Done Comments [...] this encounter Medical Devices Implanted Type Area Box Truck Washer Device Identifier Shelf Expiration Date Model / Serial / Lot Device Watchman Flx 35mm - [id number] Implanted:Qty: 1 on 02/05/2022 by Diamond Teran IV, MD at [facility] [employer] : INTRV CARD [id number] 10/20/2024 [id number] 50 / / [id number] Cath Thermodilution 6fr - [id number] Implanted:Qty: 1 on 07/31/2022 by Franco Mcgregor MD at [facility] [employer] [id number] 04/30/2024 [id number] / / [id number] Mirtaclip G4 - [id number] Implanted:Qty: 1 on 11/16/2022 at [facility] [employer] 06/25/2023 [id number] / / [id number] Clip Delivery Sytem G4 Xtw - [id number] Implanted:Qty: 1 on 11/16/2022 at [facility] [employer] [id number] 08/10/2023 [id number] / / [id number] Clip Delivery Sytem G4 Xtw - [id number] Implanted:Qty: 1 on 11/16/2022 at [facility] [employer] [id number] 09/10/2023 [id number] TW / / [id number] documented as of this encounter Advance [...] and were consensually agreed upon. Care Teams University Manager Relationship Specialty Start Date End Date Benny Waite DO 293 [place] [address] PCP - General Internal Medicine 04/03/21 documented as of this encounter
--- OUTSIDE RECORDS SUMMARY | 2023-12-04 10:19 | External Medical Summary | Summary of Care ---
Author Name Unknown Organization [facility] Address [address] [place] [address] Phone [phone] Care Team Providers Care Semiconductor Assembler Name Role Phone Benny Waite DO Primary Care Provider [phone] Reason for Visit * Reason Onset Date Comments Appointment 10/27/2023 Encounter Details Date Type Department Care Team (Late st Contact Info) Description 10/27/2023 Telephone [facility], [facility] [address] [place] [address] [phone] Services, Scheduling [address] [place] [address] Appointment Allergies Active Allergy Reactions Criticality Noted [...] results. 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 02/05/2022 Permanent atrial fibrillation 12/22/2021 Overview: Added automatically from request for surgery [id number] Last Assessment & Plan: S/p Watchman Current [...] in the Comments) Remote Patient Monitoring Vendor: [facility] Device(s): Connected Scale Self - [...] MCG/0.3 mL, 12 YRS AND ABOVE, IM ([facility]) 04/16/2023 Covid-19, Mrna, Lnp-s, Pf, B ivalent, 30 Mcg, IM, 12 yrs and above ([employer]) 03/17/2022 Pneumococcal Conjugate Vacc, 13 Valent (Prevnar) [...] encounter Miscellaneous Notes * Telephone Encounter - Madelyn Slaughter OSA - 10/27/2023 3:50 PM EDT Shahram requests a 3 mon fu, appt set for 01/24, reminder sent documented in this encounter Plan of Treatment Upcoming Encounters Date Type Department Care Team (Late st Contact Info) Description 10/29/2023 8:00 AM EDT Office Visit Family Practice 65 [facility] 293 [place] [address] Benny Waite, DO 293 [facility] [place] [address] 11/18/2023 8:30 AM EDT [facility], [facility] 132 [place] [address] Myrtle Allen RN [address] [place] [address] 12/03/2023 3:30 PM EDT Office Visit Interventional Pain Center, [facility] [address] [facility] [place] [address] Luann Guerra PA-C 132 [place] [address] 12/13/2023 11:20 AM EDT Office Visit Family Practice 65 [facility] 293 [place] [address] Benny Waite, DO 293 [facility] [place] [address] 12/21/2023 11:00 AM EDT Nurse Only Ancillary [address] [place] [address] 293 [place] [address] College, Nurse Annual Wellness Visit [address] [place] [address] 01/12/2024 8:30 AM EDT Office Visit Cardiology, [facility] 132 [facility] [place] [address] Franco Mcgregor MD [address] [place] [address] 01/25/2024 1:00 PM EDT Telemedicine [facility] [place], [facility] 132 [place] [address] Yadira Omalley CRNP 132 [place] [address] Ines Castro, Community Health Lens Cementer [address] [place] [address] 02/15/2024 8:00 AM EDT Office Visit Cardiology, [facility] 132 [place] [address] Casimiro Barraza MD 132 [place] [address] Health Maintenance Due Date Last Done Comments [...] this encounter Medical Devices Implanted Type Area Second Mate Device Identifier Shelf Expiration Date Model / Serial / Lot Device Watchman Flx 35mm - [id number] Implanted:Qty: 1 on 02/05/2022 by Diamond Teran IV, MD at [facility] [employer] : INTRV CARD [id number] 10/20/2024 [id number] 50 / / [id number] Cath Thermodilution 6fr - [id number] Implanted:Qty: 1 on 07/31/2022 by Franco Mcgregor MD at [facility] [employer] [id number] 04/30/2024 [id number] / / [id number] Mirtaclip G4 - [id number] Implanted:Qty: 1 on 11/16/2022 at [facility] [employer] 06/25/2023 [id number] / / [id number] Clip Delivery Sytem G4 Xtw - [id number] Implanted:Qty: 1 on 11/16/2022 at [facility] [employer] [id number] 08/10/2023 [id number] TW / / [id number] Clip Delivery Sytem G4 Xtw - [id number] Implanted:Qty: 1 on 11/16/2022 at [facility] [employer] [id number] 09/10/2023 [id number] TW / / [id number] documented as of this encounter Advance [...] and were consensually agreed upon. Care Teams Semiconductor Assembler Relationship Specialty Start Date End Date Benny Waite DO [address] [place] [address] PCP - General Internal Medicine 04/03/21 documented as of this encounter
--- OUTSIDE RECORDS SUMMARY | 2023-12-04 10:19 | External Medical Summary | Summary of Care ---
Author Name Unknown Organization [facility] Address [address] [facility] [place] [address] Phone [phone] Care Team Providers Care Knotting Machine Operator Name Role Phone Benny Waite DO Primary Care Provider [phone] Reason for Visit * Reason Onset Date Comments [facility]: Screening 10/30/2023 Encounter Details Date Type Department Care Team (Late st Contact Info) Description 10/30/2023 Telephone [facility], [facility] [address] [facility] [place] [address] Region, Nurse [address] [place] [address] [facility]: [...] results. 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 Feels the best today he has all week. Had a couple episodes of diarrhea earlier in the week. Resolved now. Will continue to monitor * Telephone Encounter - Haritha Peña LPN [...] PM EDT Scheduled Telephone [facility], [facility] [address] [place] [address] [facility], Nurse [facility] [address] [place] [address] 11/18/2023 8:30 AM EDT Home Visit [facility] [place], [facility] [address] [place] [address] Myrtle Allen RN 132 [facility] [place] [address] 12/03/2023 8:40 AM EDT Office Visit Family Practice [address] [place] [address] [place] [address] Benny Waite DO 293 [facility], [place] [address] 12/03/2023 3:30 PM EDT Office Visit Interventional Pain Center, [facility] 132 [place] [address] Luann Guerra PA-C 132 [place] [address] 12/13/2023 11:20 AM EDT Office Visit Family Practice 65 [facility] 293 [place] [address] Benny Waite, 293 [place] [address] 12/21/2023 11:00 AM EDT Nurse Only Ancillary 65 [facility] 293 [place] [address] College, Nurse Annual Wellness Visit [address] [place] [address] 01/12/2024 8:30 AM EDT Office Visit Cardiology, [facility] 132 [place] [address] Franco Mcgregor MD [address] [place] [address] 01/25/2024 1:00 PM EDT [facility]icine [facility] [place], [facility] 132 [place] [address] Yadira Omalley CRNP 132 [place] [address] Ines Castro, Community Health Nutritional Assistant [address] [place] [address] 02/15/2024 8:00 AM EDT Office Visit Cardiology, [facility] [place] [address] Casimiro Barraza MD 132 [place] [address] Health Maintenance Due Date Last Done Comments [...] this encounter Medical Devices Implanted Type Area Administrative Resources Associate Device Identifier Shelf Expiration Date Model / Serial / Lot Device Watchman Flx 35mm - [id number] Implanted:Qty: 1 on 02/05/2022 by Diamond Teran IV, MD at [facility] [employer] : INTRV CARD [id number] 10/20/2024 [id number] 50 / / [id number] Cath Thermodilution 6fr - [id number] Implanted:Qty: 1 on 07/31/2022 by Franco Mcgregor MD at [facility] [employer] [id number] 04/30/2024 [id number] / / [id number] Mirtaclip G4 - [id number] Implanted:Qty: 1 on 11/16/[address] [facility] [employer] 06/25/2023 [id number] / / [id number] Clip Delivery Sytem G4 Xtw - [id number] Implanted:Qty: 1 on 11/16/[address] [facility] [employer] [id number] 08/10/2023 [id number] TW / / [id number] Clip Delivery Sytem G4 Xtw - [id number] Implanted:Qty: 1 on 11/16/[address] [facility] [employer] [id number] 09/10/2023 [id number] TW / / [id number] documented as of this encounter Advance [...] and were consensually agreed upon. Care Teams Knotting Machine Operator Relationship Specialty Start Date End Date Benny Waite DO 293 [place] [address] PCP - General Internal Medicine 04/03/21 documented as of this encounter
--- OUTSIDE RECORDS SUMMARY | 2023-12-04 10:20 | External Medical Summary | Summary of Care ---
Author Name Unknown Organization [facility] Address [address] [facility] [place] [address] Phone [phone] Care Team Providers Care Pepper Cutter Name Role Phone Benny Waite DO Primary Care Provider [phone] Reason for Visit * Reason Onset Date Comments [facility]: Maintenance 10/25/2023 Encounter Details Date Type Department Care Team (Late st Contact Info) Description 10/25/2023 Telephone [facility], [facility] [address] [facility] [place] [address] [facility], Nurse [facility] 1000 [address] [facility] JON ABBASI [phone] [facility]: Maintenance Allergies Active Allergy Reactions Criticality Noted Date Comments Adhesive Tape 02/04/2017 Duloxetine High 07/13/2023 Other Reaction(s): confusion Levofloxacin 09/01/2019 documented as of this encounter (statuses as of 10/25/2023) Medications Medication Sig Dispensed Refills Start Date [...] as of this encounter (statuses as of 10/25/2023) Active Problems Problem Noted Date Diagnosed Date [...] MVR (mitral valve repair) 11/16/2022 Atherosclerosis of [place] co 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 pectoris 08/11/2022 Severe tricuspid regurgitation 08/11/2022 Gout, arthropathy 07/20/2022 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 Continues buspar. [facility] Crisis number given to pt by [facility] Behavioral health CM referral placed Moderate to [...] Remote Patient Monitoring Vendor: [facility] Device(s): Connected Scale Connected Pulse Ox Connected BP Cuff Self - Management Plan Double dose of Furosemide for 3 days Exacerbation Plan BMP Additional Comments: Euvolemic today. Pt requests [facility] scale, BP and pulse ox which was ordered. 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 documented as of this encounter (statuses as of 10/25/2023) Resolved Problems Problem Noted Date Diagnosed Date [...] as of this encounter (statuses as of 10/25/2023) Immunizations Name Administration Dates Next Due COVID-19 mRNA, LNP-s, No Pre serve, 2-Dose Series (Moderna) 08/20/2020,07/17/2020 COVID-19 mRNA, LNP-s, No Pre serve, 2-Dose Series (Orabrush) 05/14/2021 COVID-19, LNP-s, No Preserve , Robbie-sucrose, [...] encounter Miscellaneous Notes * Telephone Encounter - Irladna Real, AMBER - 10/25/2023 12:03 PM EDT Images from the original note were not included. [facility] Remote Patient Monitoring Able to contact patient: Trigger type: Abnormal reading(s): AMC (Advanced Monitored Caregiving): Pulse Oximeter: Oxygen saturation per oximeter: 89 measured while on room air Trigger priority per AMC: high Baseline oxygen requirements: Room air Symptom review: headache Diet Reviewed: Yes. Patient has had any foods high in sodium: No Fluid Intake Reviewed: Yes. Patient is on a fluid restriction: Yes, restriction amount in milliliters or liters: 64 oz Adherent to restriction: Yes Self-Management Plan Reviewed: Red Flags: none listed [...] Additional risk selection justification: Spoke with pt c/o headache and not feeling "right" this morning. He did feel increased SOB this morning. Unsure if it's related to 's passing last week. On recheck Sp02 93%. Denies increased edema. Abdominal does feel bloated but he has not had a normal BM in 3 days. He is drinking approx 40 oz daily. Encouraged to drink 64 oz fluid. He believes he is adherent to sodium restriction. Encouraged to call [facility] with any concerns. Overall risk and identified plan: High risk: Route to RNCM (Registered Nurse Hospitalist Nocturnist Physician) and Advance Practitioner documented in this encounter Plan of Treatment Upcoming Encounters Date Type Department Care Team (Late st Contact Info) Description 10/26/2023 11:00 AM EDT Telemedicine [facility], [address] [place] [address] Yadira Omalley CRNP [address] [place] [address] Ines Castro, Community Health Bit Shaver [address] [place] [address] 10/29/2023 8:00 AM EDT Office Visit Family Practice [address] [place] [address] 293 [place] [address] Benny Waite, DO 293 [facility] [place] [address] 11/18/2023 8:30 AM EDT [facility] 132 [facility] [place] [address] Myrtle Allen RN 132 [place] [address] 12/03/2023 3:30 PM EDT Office Visit Interventional Pain Center, [facility] 132 [facility] [place] [address] Luann Guerra PA-C [facility] [place] [address] 12/13/2023 11:20 AM EDT Office Visit Family Practice [address] [place] [address] 293 [place] [address] Benny Waite, DO 293 [facility] [place] [address] 12/21/2023 11:00 AM EDT Nurse Only Ancillary [address] [place] [address] 293 [place] [address] College, Nurse Annual Wellness Visit [address] [place] [address], [place] [address] 01/12/2024 8:30 AM EDT Office Visit Cardiology, [facility] 132 [place] [address] Franco Mcgregor MD [address] [place] [address] 02/15/2024 8:00 AM EDT Office Visit Cardiology, [facility] 132 [place] [address] Casimiro Barraza MD 132 [place] [address] Health Maintenance Due Date Last Done Comments [...] this encounter Medical Devices Implanted Type Area Building Service Worker Device Identifier Shelf Expiration Date Model / Serial / Lot Device Watchman Flx 35mm - [id number] Implanted:Qty: 1 on 02/05/2022 by Diamond Teran IV, MD at [facility] [employer] : INTRV CARD [id number] 10/20/2024 [id number] 50 / / [id number] Cath Thermodilution 6fr - [id number] Implanted:Qty: 1 on 07/31/2022 by Franco Mcgregor MD at [facility] [employer] [id number] 04/30/2024 [id number] / / [id number] Mirtaclip G4 - [id number] Implanted:Qty: 1 on 11/16/2022 at [facility] [employer] 06/25/2023 [id number] / / [id number] Clip Delivery Sytem G4 Xtw - [id number] Implanted:Qty: 1 on 11/16/2022 at [facility] [employer] [id number] 08/10/2023 [id number] / / [id number] Clip Delivery Sytem G4 Xtw - [id number] Implanted:Qty: 1 on 11/16/2022 at [facility] [employer] [id number] 09/10/2023 [id number] / / [id number] documented as of this encounter Advance [...] and were consensually agreed upon. Care Teams Pepper Cutter Relationship Specialty Start Date End Date Benny Waite DO [address] [place] [facility] [place] [address] PCP - General Internal Medicine 04/03/21 documented as of this encounter
--- OUTSIDE RECORDS SUMMARY | 2023-12-04 10:20 | External Medical Summary | Summary of Care ---
Author Name Unknown Organization [facility] Address [address] [place] [address] Phone [phone] Care Team Providers Care Financial Foundations Representative Name Role Phone Benny Waite DO Primary Care Provider [phone] Encounter Details Date Type Department Care Team (Late st Contact Info) Description 10/20/2023 9:30 AM EDT Home Visit Care Coordination and Integration [address] [place], [place] [phone] Ines Castro, Community Health Drupal Web Developer [address] [place] [address], [place] [id number] Allergies Active Allergy Reactions Criticality Noted Date Comments Adhesive Tape 02/04/2017 Duloxetine High 07/13/2023 Other Reaction(s): confusion Levofloxacin 09/01/2019 documented as of this encounter (statuses as of 10/20/2023) Medications Medication Sig Dispensed Refills Start Date [...] as of this encounter (statuses as of 10/20/2023) Active Problems Problem Noted Date Diagnosed Date [...] MVR (mitral valve repair) 11/16/2022 Atherosclerosis of [place] co 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 No guns in the home. [facility] Crisis number given to pt by [facility] Behavioral health CM referral placed Moderate [...] in the Comments) Remote Patient Monitoring Vendor: [facility] Device(s): Connected Scale Connected Pulse Ox Connected BP Cuff Self - Management Plan Double dose of Furosemide for 3 days Exacerbation Plan BMP Additional Comments: Euvolemic today. Pt requests [facility] scale, BP and pulse ox which was ordered. 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 documented as of this encounter (statuses as of 10/20/2023) Resolved Problems Problem Noted Date Diagnosed Date [...] as of this encounter (statuses as of 10/20/2023) Immunizations Name Administration Dates Next Due COVID-19 [...] Progress Notes * Ines Castro, Community Health Drupal Web Developer - 10/20/2023 10:00 AM EDT Telemedicine visit: No Community Health Drupal Web Developer (REBEKAH) documentation: CHW initiated home visit with patient. Patient was very negative when CHW arrived and said that he argued over and over again yesterday with [facility] about what was going on with his current health monitor and that it was not staying on and keeps coming off at night and he is not aware that it is. The velcro on the band is not holding. CHW suggested other places to wear it and patient refused to try it and continued to argue that it would still come off. He is only willing to wear this monitor for aweek, that was what he agreed to before he got it. Patient put his [facility] BP cuff on and got a readingof 129/75. Patient became very agitated with CHW and [facility] in general. Very argumentative and defiant with anything and just saying that there is no reason his BP is going up and down and he never had high BP. And his [facility] doctors are not doing anything about it. Refused CHW to take his vitals. Patient would possibly like a second opinion and he would like time to think about it. CM instructed CHW to take CH monitor, she got enough readings. Ines Castro- Community Health Worker 1 Support Services/[facility] [email or web address] documented in this encounter Plan of Treatment Upcoming Encounters Date Type Department Care Team (Late st Contact Info) Description 10/26/2023 11:00 AM EDT Telemedicine [facility], [facility] 132 [facility] [place] [address] Yadira Omalley CRNP 132 [facility] [place] [address] Ines Castro, Community Health Drupal Web Developer [address] [place] [address] 10/29/2023 8:00 AM EDT Office Visit Family Practice [address] [place] [address] [address] [place] [address] Benny Waite, 293 [place] [address] 11/18/2023 8:30 AM EDT Home Visit [facility], [facility] [address] [place] [address] Myrtle Allen, RN 132 [facility] [place] [address] 12/03/2023 3:30 PM EDT Office Visit Interventional [facility] Center, [facility] [address] [place] [address] Luann Guerra PA-C 132 [facility] [place] [address] 12/13/2023 11:20 AM EDT Office Visit Family Practice 65 [facility] 293 [place] [address] Benny Waite, 293 [place] [address] 12/21/2023 11:00 AM EDT Nurse Only Ancillary 65 [facility] 293 [place] [address] College, Nurse Annual Wellness Visit [address] [place] [address] 01/12/2024 8:30 AM EDT Office Visit Cardiology, [facility] 132 [facility] [place] [address] Franco Mcgregor MD [address] [place] [address] 02/15/2024 8:00 AM EDT Office Visit Cardiology, [facility] 132 [facility] [place] [address] Casimiro Barraza MD 132 [place] [address] Health Maintenance Due Date Last Done Comments [...] this encounter Medical Devices Implanted Type Area Intelligence Agent Device Identifier Shelf Expiration Date Model / Serial / Lot Device Watchman Flx 35mm - [id number] Implanted:Qty: 1 on 02/05/2022 by Diamond Teran IV, MD at [facility] [employer] : INTRV CARD [id number] 10/20/2024 [id number] 50 / / [id number] Cath Thermodilution 6fr - [id number] Implanted:Qty: 1 on 07/31/2022 by Franco Mcgregor MD at [facility] [employer] [id number] 04/30/2024 [id number] / / [id number] Mirtaclip G4 - [id number] Implanted:Qty: 1 on 11/16/2022 at [facility] [employer] 06/25/2023 [id number] / / [id number] Clip Delivery Sytem G4 Xtw - [id number] Implanted:Qty: 1 on 11/16/2022 at [facility] [employer] [id number] 08/10/2023 [id number] / / [id number] Clip Delivery Sytem G4 Xtw - [id number] Implanted:Qty: 1 on 11/16/2022 at [facility] [employer] [id number] 09/10/2023 [id number] / / [id number] documented as of this encounter Advance [...] were consensually agreed upon. Care Teams Financial Foundations Representative Relationship Specialty Start Date End Date Benny Waite DO [address] [place] [address] PCP - General Internal Medicine 04/03/21 documented as of this encounter
--- OUTSIDE RECORDS SUMMARY | 2023-12-04 10:20 | External Medical Summary | Summary of Care ---
Author Name Unknown Organization [facility] Address [address] [facility] [place] [address] Phone [phone] Care Team Providers Care Psych Arnp Name Role Phone Benny Waite DO Primary Care Provider [phone] Reason for Visit * Reason Onset Date Comments [facility]: Maintenance 10/26/2023 Encounter Details Date Type Department Care Team (Late st Contact Info) Description 10/26/2023 Telephone [facility], [facility] [address] [facility] [place] [address] [facility], Nurse [facility] [address] [facility] [place] [phone] [facility]: Maintenance Allergies Active Allergy [...] MVR (mitral valve repair) 11/16/2022 Atherosclerosis of [place] co 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 pectoris 08/11/2022 Severe tricuspid regurgitation 08/11/2022 Gout, arthropathy 07/20/2022 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 Continues buspar. [facility] Crisis number given to pt by [facility] Behavioral health CM referral placed Moderate [...] in the Comments) Remote Patient Monitoring Vendor: [facility] Device(s): Connected Scale Connected Pulse Ox Connected BP Cuff Self - Management Plan Double dose of Furosemide for 3 days Exacerbation Plan BMP Additional Comments: Euvolemic today. Pt requests [facility] scale, BP and pulse ox which [...] mRNA, LNP-s, No Pre serve, 2-Dose Series (SecondMic) 05/14/2021 COVID-19, LNP-s, No Preserve , Robbie-sucrose, [...] encounter Miscellaneous Notes * Telephone Encounter - Yadira Omalley CRNP [...] sent to scheduling to schedule x-ray at [facility]) Please follow-up with call tomorrow to ensure [...] AM EDT Office Visit Family Practice 65 [facility] 293 [place] [address] eBnny Waite, DO 293 [place] [address] 11/18/2023 8:30 AM EDT [facility] Visit [facility] [place], [facility] [place] [address] Myrtle Allen RN 132 [facility] [place] [address] 12/03/2023 3:30 PM EDT Office Visit Interventional Pain Center, [facility] 132 [place] [address] Luann Guerra PA-C 132 [facility] [place] [address] 12/13/2023 11:20 AM EDT Office Visit Family Practice 65 [facility] 293 [facility], [place] [address] Benny Waite, 293 [facility], [place] [address] 12/21/2023 11:00 AM EDT Nurse Only Ancillary 65 [facility] 293 [facility], [place] [address] College, Nurse Annual Wellness Visit [address] [place] [address] 01/12/2024 8:30 AM EDT Office Visit Cardiology, [facility] 132 [place] [address] Franco Mcgregor MD [address] [place] [address] 02/15/2024 8:00 AM EDT Office Visit Cardiology, [facility] 132 [place] [address] Casimiro Barraza MD 132 [facility] [place] [address] Health Maintenance Due Date Last Done Comments [...] this encounter Medical Devices Implanted Type Area Marketing Services Coordinator Device Identifier Shelf Expiration Date Model / Serial / Lot Device Watchman Flx 35mm - [id number] Implanted:Qty: 1 on 02/05/2022 by Diamond Teran IV, MD at [facility] [employer] : INTRV CARD [id number] 10/20/2024 [id number] 50 / / [id number] Cath Thermodilution 6fr - [id number] Implanted:Qty: 1 on 07/31/2022 by Franco Mcgregor MD at [facility] [employer] [id number] 04/30/2024 [id number] / / [id number] Mirtaclip G4 - [id number] Implanted:Qty: 1 on 11/16/2022 at [facility] [employer] 06/25/2023 [id number] / / [id number] Clip Delivery Sytem G4 Xtw - [id number] Implanted:Qty: 1 on 11/16/2022 at [facility] [employer] [id number] 08/10/2023 [id number] TW / / [id number] Clip Delivery Sytem G4 Xtw - [id number] Implanted:Qty: 1 on 11/16/2022 at [facility] [employer] [id number] 09/10/2023 [id number] / / [id number] documented as of this encounter Advance [...] and were consensually agreed upon. Care Teams Psych Arnp Relationship Specialty Start Date End Date Benny Waite DO [address] [facility] [place] [address] PCP - General Internal Medicine 04/03/21 documented as of this encounter
--- OUTSIDE RECORDS SUMMARY | 2023-12-04 10:20 | External Medical Summary | Summary of Care ---
Author Name Unknown Organization [facility] Address [address] [facility] [place] [address] Phone [phone] Care Team Providers Care Fire Extinguisher Installer Name Role Phone Benny Waite DO Primary Care Provider [phone] Reason for Visit * Reason Onset Date Comments [facility]: Maintenance 10/26/2023 Encounter Details Date Type Department Care Team (Late st Contact Info) Description 10/26/2023 Telephone [facility], [facility] 1000 [address] [facility] [place] [address] [facility], Nurse [facility] 1000 E [facility] [place] [phone] [facility]: Maintenance Allergies Active Allergy [...] MVR (mitral valve repair) 11/16/2022 Atherosclerosis of [place] co 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 Continues buspar. [facility] Crisis number given to pt by [facility] Behavioral health CM referral placed [...] in the Comments) Remote Patient Monitoring Vendor: [facility] Device(s): Connected Scale Connected Pulse Ox Connected BP Cuff Self - Management Plan Double dose of Furosemide for 3 days Exacerbation Plan BMP Additional Comments: Euvolemic today. Pt requests [facility] scale, BP and pulse ox which was [...] mRNA, LNP-s, No Pre serve, 2-Dose Series (MediaPhy) 05/14/2021 COVID-19, LNP-s, No Preserve , Robbie-sucrose, [...] encounter Miscellaneous Notes * Telephone Encounter - Iris Guerra LPN - 10/26/2023 10:40 AM EDT Images from the original note were not included. [facility] Remote Patient Monitoring documented in this encounter Plan of Treatment Upcoming Encounters Date Type Department Care Team (Late st Contact Info) Description 10/26/2023 11:00 AM EDT Telemedicine [facility], [facility] [place] [address] Yadira Omalley CRNP [address] [place] [address] Matthew, Ines Y, Community Health Electric Meter Tester [address] [place] [address] 10/29/2023 8:00 AM EDT Office Visit Family Practice 65 [facility] 293 [place] [address] eBnny Waite, DO 293 [place] [address] 11/18/2023 8:30 AM EDT Home Visit [facility], [facility] 132 [facility] [place] [address] Myrtle Allen RN 132 [facility] [place] [address] 12/03/2023 3:30 PM EDT Office Visit Interventional Pain Center, [facility] 132 [facility] [place] [address] Luann Guerra PA-C 132 [place] [address] 12/13/2023 11:20 AM EDT Office Visit Family Practice 65 [facility] 293 [place] [address] Benny Waite, DO 293 [place] [address] 12/21/2023 11:00 AM EDT Nurse Only Ancillary 65 [facility] 293 [place] [address] College, Nurse Annual Wellness Visit [address] [place] [address] 01/12/2024 8:30 AM EDT Office Visit Cardiology, [facility] 132 [facility] [place] [address] Franco Mcgregor MD [address] [place] [address] 02/15/2024 8:00 AM EDT Office Visit Cardiology, [facility] [address] [place] [address] Casimiro Barraza MD [address] [place] [address] Health Maintenance Due Date Last Done Comments [...] this encounter Medical Devices Implanted Type Area Die Trouble Shooter Device Identifier Shelf Expiration Date Model / Serial / Lot Device Watchman Flx 35mm - [id number] Implanted:Qty: 1 on 02/05/2022 by Diamond Teran IV, MD at [facility] [employer] : INTRV CARD [id number] 10/20/2024 [id number] 50 / / [id number] Cath Thermodilution 6fr - [id number] Implanted:Qty: 1 on 07/31/2022 by Franco Mcgregor MD at [facility] [employer] [id number] 04/30/2024 [id number] / / [id number] Mirtaclip G4 - [id number] Implanted:Qty: 1 on 11/16/2022 at [facility] [employer] 06/25/2023 [id number] / / [id number] Clip Delivery Sytem G4 Xtw - [id number] Implanted:Qty: 1 on 11/16/2022 at [facility] [employer] [id number] 08/10/2023 [id number] / / [id number] Clip Delivery Sytem G4 Xtw - [id number] Implanted:Qty: 1 on 11/16/2022 at [facility] [employer] [id number] 09/10/2023 [id number] / / [id number] documented as of this encounter Advance [...] and were consensually agreed upon. Care Teams Fire Extinguisher Installer Relationship Specialty Start Date End Date Benny Waite DO 293 [place] [address] PCP - General Internal Medicine 04/03/21 documented as of this encounter
--- OUTSIDE RECORDS SUMMARY | 2023-12-04 10:20 | External Medical Summary | Summary of Care ---
Author Name Unknown Organization [facility] Address [address] [facility] [place] [address] Phone [phone] Care Team Providers Care Technical Training Specialist Name Role Phone Benny Waite DO Primary Care Provider [phone] Reason for Visit * Reason Onset Date Comments [facility]: Maintenance 10/26/2023 Encounter Details Date Type Department Care Team (Late st Contact Info) Description 10/26/2023 Telephone [facility], [facility] 1000 [address] [facility] [place] [address] [facility], Nurse [facility] 1000 [address] [facility] [place] [phone] [facility]: Maintenance Allergies Active Allergy [...] MVR (mitral valve repair) 11/16/2022 Atherosclerosis of [place] co 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 pectoris 08/11/2022 Severe tricuspid regurgitation 08/11/2022 Gout, arthropathy 07/20/2022 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 Continues buspar. [facility] Crisis number given to pt by [facility] Behavioral health CM referral placed Moderate [...] BMP Additional Comments: Euvolemic today. Pt requests [facility] scale, BP and pulse ox which was [...] mRNA, LNP-s, No Pre serve, 2-Dose Series ([email or web address]) 05/14/2021 COVID-19, LNP-s, No Preserve , Robbie-sucrose, [...] EDT Office Visit Family Practice [address] [place] 293 [place] [address] Benny Waite, DO 293 [place] [address] 11/18/2023 8:30 AM EDT [facility] Visit [facility], [facility] 132 [facility] [place] [address] Myrtle Allen, RN 132 [facility] [place] [address] 12/03/2023 3:30 PM EDT Office Visit Interventional Pain Center, [facility] 132 [facility] [place] [address] Luann Guerra PA-C 132 [facility] [place] [address] 12/13/2023 11:20 AM EDT Office Visit Family Practice 65 [facility] 293 [place] [address] Benny Waite, 293 [place] [address] 12/21/2023 11:00 AM EDT Nurse Only Ancillary [address] [place] [address] 293 [place] [address] College, Nurse Annual Wellness Visit [address] [place] [address], [place] [address] 01/12/2024 8:30 AM EDT Office Visit Cardiology, [facility] 132 [facility] [place] [address] Franco Mc[place]geor MD [address] [place] [address] 02/15/2024 8:00 AM EDT Office Visit Cardiology, [facility] 132 [facility] [place] [address] Casimiro Barraza MD 132 [facility] [place] [address] Health Maintenance Due Date Last Done Comments [...] this encounter Medical Devices Implanted Type Area Reformatory Attendant Device Identifier Shelf Expiration Date Model / Serial / Lot Device Watchman Flx 35mm - [id number] Implanted:Qty: 1 on 02/05/2022 by Diamond Teran IV, [place] [facility] [employer] : INTRV CARD [id number] 10/20/2024 [id number] 50 / / [id number] Cath Thermodilution 6fr - [id number] Implanted:Qty: 1 on 07/31/2022 by Franco Mcgreg[place] MD at [facility] [employer] [id number] 04/30/2024 [id number] / / [id number] Mirtaclip G4 - [id number] Implanted:Qty: 1 on 11/16/2022 at [facility] [employer] 06/25/2023 [id number] / / [id number] Clip Delivery Sytem G4 Xtw - [id number] Implanted:Qty: 1 on 11/16/2022 at [facility] [employer] [id number] 08/10/2023 [id number] TW / / [id number] Clip Delivery Sytem G4 Xtw - [id number] Implanted:Qty: 1 on 11/16/2022 at [facility] [employer] [id number] 09/10/2023 [id number] / / [id number] documented as of this encounter Advance [...] and were consensually agreed upon. Care Teams Technical Training Specialist Relationship Specialty Start Date End Date Benny Waite DO 293 [place] [address] PCP - General Internal Medicine 04/03/21 documented as of this encounter
--- OUTSIDE RECORDS SUMMARY | 2023-12-04 10:20 | External Medical Summary | Summary of Care ---
Author Name Unknown Organization [facility] Address [address] [facility] [place] [address] Phone [phone] Care Team Providers Care Derrick Boat Captain Name Role Phone Benny Waite DO Primary Care Provider [phone] Reason for Visit * Reason Onset Date Comments Test Results 10/19/2023 Encounter Details Date Type Department Care Team (Late st Contact Info) Description 10/19/2023 Telephone Cardiology, [facility] [address] [facility] [place] [address] Ale Leon CRNP [address] [facility] [place] [address] Test Results Allergies Active Allergy Reactions Criticality Noted Date Comments Adhesive Tape 02/04/2017 Duloxetine High 07/13/2023 Other Reaction(s): confusion Levofloxacin 09/01/2019 documented as of this encounter (statuses as of 10/19/2023) Medications Medication Sig Dispensed Refills Start Date [...] as of this encounter (statuses as of 10/19/2023) Active Problems Problem Noted Date Diagnosed Date [...] MVR (mitral valve repair) 11/16/2022 Atherosclerosis of [place] co 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 pectoris 08/11/2022 Severe tricuspid regurgitation 08/11/2022 Gout, arthropathy 07/20/2022 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 Continues buspar. [facility] Crisis number given to pt by [facility] Behavioral health CM referral placed [...] in the Comments) Remote Patient Monitoring Vendor: [facility] Device(s): Connected Scale Connected Pulse Ox Connected BP Cuff Self - Management Plan Double dose of Furosemide for 3 days Exacerbation Plan BMP Additional Comments: Euvolemic today. Pt requests [facility] scale, BP and pulse ox which was ordered. 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 documented as of this encounter (statuses as of 10/19/2023) Resolved Problems Problem Noted Date Diagnosed Date [...] as of this encounter (statuses as of 10/19/2023) Immunizations Name Administration Dates Next Due COVID-19 mRNA, LNP-s, No Pre serve, 2-Dose Series (Moderna) 08/20/2020,07/17/2020 COVID-19 mRNA, LNP-s, No Pre serve, 2-Dose Series (Pfizer) 05/14/2021 COVID-19, LNP-s, No Preserve , Robbie-sucrose, Ages 12+ ([employer]acher[employer]) 11/04/2021 COVID-19, MRNA-LNP, 23-24, P F, 30 [...] Telephone Encounter - Ale Leon CRNP - 10/19/2023 11:44 AM EDT Patient being evaluated by [facility] today for blood pressure check. * Telephone Encounter - Tyree Estrada LPN - 10/19/2023 9:51 AM EDT Called patient and informed of Ale's message. Patient verbalized understanding. Patient complained of ongoing issues with BP and headaches. Does have a PCP appointment scheduled on 10/29/23. ----- Message from JUAN Tanner sent at 10/19/2023 7:54 AM EDT ----- Echocardiogram showing a normal LVEF of 55-59%. Evidence of mitral valve clip without stenosis. Mild MR and TR. PASP of 47 mmHg. Follow-up with Dr. Mcgregor as scheduled. documented in this encounter Plan of Treatment Upcoming Encounters Date Type Department Care Team (Late st Contact Info) Description 10/26/2023 11:00 AM EDT Telemedicine [facility], [facility] 132 [facility] [place] [address] Yadira Omalley CRNP 132 [facility] [place] [address] Ines Castro, Community Health Financial Analysis Manager [address] [place] [address] 10/29/2023 8:00 AM EDT Office Visit [address] 293 [place] [address] Benny Waite, 293 [place] [address] 11/18/2023 8:30 AM EDT [facility] Visit [facility] [place], [facility] 132 [facility] [place] [address] Myrtle Allen, RN 132 [facility] [place] [address] 12/03/2023 3:30 PM EDT Office Visit Interventional Pain Center, [facility] [address] [place] [address] Luann Guerra PA-C [facility] [place] [address] 12/13/2023 11:20 AM EDT Office Visit [address] 293 [place] [address] Benny Waite, 293 [place] [address] 12/21/2023 11:00 AM EDT Nurse Only Ancillary [address] [place] 293 [place] [address] College, Nurse Annual Wellness Visit [address] [facility] 293 [place] [address] 01/12/2024 8:30 AM EDT Office Visit Cardiology, [facility] 132 [place] [address] Franco Mcgregor MD [address] [place] [address] 02/15/2024 8:00 AM EDT Office Visit Cardiology, [facility] 132 [place] [address] Casimiro Barraza MD 132 [place] [address] Health Maintenance Due Date Last Done Comments [...] this encounter Medical Devices Implanted Type Area Field Counsel Device Identifier Shelf Expiration Date Model / Serial / Lot Device Watchman Flx 35mm - [id number] Implanted:Qty: 1 on 02/05/2022 by Diamond Teran IV, [place] [facility] [email or web address] : INTRV CARD [id number] 10/20/2024 [id number] 50 / / [id number] Cath Thermodilution 6fr - [id number] Implanted:Qty: 1 on 07/31/2022 by Franco Mcgregor MD at [facility] [employer] [id number] 04/30/2024 [id number] / / [id number] Mirtaclip G4 - [id number] Implanted:Qty: 1 on 11/16/2022 at [facility] [employer] 06/25/2023 [id number] / / [id number] Clip Delivery Sytem G4 Xtw - [id number] Implanted:Qty: 1 on 11/16/2022 at [facility] [employer] [id number] 08/10/2023 [id number] / / [id number] Clip Delivery Sytem G4 Xtw - [id number] Implanted:Qty: 1 on 11/16/2022 at [facility] [employer] [id number] 09/10/2023 [id number] / / [id number] documented as of this encounter Advance [...] and were consensually agreed upon. Care Teams Derrick Boat Captain Relationship Specialty Start Date End Date Benny Waite DO [address] [place] [address] PCP - General Internal Medicine 04/03/21 documented as of this encounter
--- OUTSIDE RECORDS SUMMARY | 2023-12-04 10:20 | External Medical Summary | Summary of Care ---
Author Name Unknown Organization [facility] Address [address] [facility] [place] [address] Phone [phone] Care Team Providers Care Slab Lifting Supervisor Name Role Phone Benny Waite DO Primary Care Provider [phone] Reason for Visit * Reason Onset Date Comments [facility]: Maintenance 10/19/2023 Encounter Details Date Type Department Care Team (Late st Contact Info) Description 10/19/2023 Telephone [facility], [facility] [address] [facility] [place] [address] [facility], Nurse 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 Continues buspar. [facility] Crisis number given to pt by [facility] Behavioral health CM referral placed [facility] [place] Device(s): Connected Scale Connected Pulse Ox Connected BP Cuff Self - Management Plan Double dose of Furosemide for 3 days Exacerbation Plan BMP Additional Comments: Euvolemic today. Pt requests [facility] scale, BP and pulse ox which [...] mRNA, LNP-s, No Pre serve, 2-Dose Series (Guided Delivery Systems) 05/14/2021 COVID-19, LNP-s, No Preserve , Robbie-sucrose, [...] encounter Miscellaneous Notes * Addendum Note - Claribel Quiles RN - 10/19/2023 12:44 PM EDTAddended by: CLARIBEL QUILES on: 10/19/2023 12:44 PM Modules accepted: Orders * Telephone Encounter - Claribel Quiles RN - 10/19/2023 12:15 PM EDT Call received from pt. Calling to report that the arm band for his [facility] BP cuff is not staying on. States that the velcro is not sticking. Pt asking for a [facility] steam heating installer to come and trouble shoot AMCcuff. TT message sent to [facility] shipping order clerk to assist with setting up home visit today or tomorrow to trouble shoot [facility] equipment. * Telephone Encounter - Ines Coates RN - 10/19/2023 10:46 AM EDT Received incoming call from pt stating there are no lights on his sensor/pneumatic deicer inspector and thinks there should be. Confirmed pneumatic deicer inspector is plugged into outlet. Had pt unplug/plug back in. Asked pt to move to another outlet. Patient, at that time discovered that the cord was not plugged into the back of the pneumatic deicer inspector. Connected cord and pulsing green lights appeared. Instructed to leave on the pneumatic deicer inspector for 30 minutes,then reapply to arm band. Pt verbalizes understanding and able to repeat back instruction correctly. * Telephone Encounter - Annmarie Shaikh LPN - 10/19/2023 10:08 AM EDT CH trigger for no data in 4 hrs and battery at only 1% Call to pt made aware CHM is not transmitting due to low battery Pt will charge device now documented in this encounter Plan of Treatment Upcoming Encounters Date Type Department Care Team (Late st Contact Info) Description 10/26/2023 11:00 AM EDT Telemedicine [facility] [place], [facility] 132 [place] [address] Yadira Omalley CRNP 132 [place] [address] Ines Castro, Community Health Rn Diabetes [address] [place] [address] 10/29/2023 8:00 AM EDT Office Visit Family Practice 65 [facility] [place] 293 [place] [address] Benny Waite, DO 293 [place] [address] 11/18/2023 8:30 AM EDT [facility] Visit [facility], [facility] 132 [place] [address] Myrtle Allen, RN 132 [place] [address] 12/03/2023 3:30 PM EDT Office Visit Interventional Pain Center, [facility] 132 [place] [address] Luann Guerra PA-C 132 [place] [address] 12/13/2023 11:20 AM EDT Office Visit Family Practice 65 [facility] 293 [place] [address] Benny Waite, DO 293 [place] [address] 12/21/2023 11:00 AM EDT Nurse Only Ancillary [address] [place] [address], [place] [address] College, Nurse Annual Wellness Visit [address] [place] [address] 01/12/2024 8:30 AM EDT Office Visit Cardiology, [facility] 132 [place] [address] Franco Mcgregor MD [address] [facility] [place] [address] 02/15/2024 8:00 AM EDT Office Visit Cardiology, [facility] 132 [facility] [place] [address] Casimiro Barraza MD 132 [facility] [place] [address] Health Maintenance Due Date Last Done Comments [...] this encounter Medical Devices Implanted Type Area Glue Size Machine Operator Device Identifier Shelf Expiration Date Model / Serial / Lot Device Watchman Flx 35mm - [id number] Implanted:Qty: 1 on 02/05/2022 by Diamond Teran IV, [place] at [facility] [employer] : INTRV CARD [id number] 10/20/2024 [id number] 50 / / [id number] Cath Thermodilution 6fr - [id number] Implanted:Qty: 1 on 07/31/2022 by Franco cMgregor MD at [facility] [employer] [id number] 04/30/2024 [id number] / / [id number] Mirtaclip G4 - [id number] Implanted:Qty: 1 on 11/16/2022 at [facility] [employer] 06/25/2023 [id number] / / [id number] Clip Delivery Sytem G4 Xtw - [id number] Implanted:Qty: 1 on 11/16/2022 at [facility] [employer] [id number] 08/10/2023 [id number] / / [id number] Clip Delivery Sytem G4 Xtw - [id number] Implanted:Qty: 1 on 11/16/2022 at [facility] [employer] [id number] 09/10/2023 [id number] / / [id number] documented as of this encounter Visit Diagnoses Diagnosis CHF (congestive heart failure), NYHA class I, chronic, diastolic (HCC)- Primary documented in this encounter Advance Directives Latest [...] and were consensually agreed upon. Care Teams Slab Lifting Supervisor Relationship Specialty Start Date End Date Benny Waite DO [address] [place] [address] PCP - General Internal Medicine 04/03/21 documented as of this encounter
--- OUTSIDE RECORDS SUMMARY | 2023-12-04 10:20 | External Medical Summary | Summary of Care ---
Author Name Unknown Organization [facility] Address [address] [facility] [place] [address] Phone [phone] Care Team Providers Care Sewer Line Repairer Name Role Phone Benny Waite DO Primary Care Provider Reason for Visit * Reason Onset Date Comments [facility]: Maintenance 10/19/2023 Encounter Details Date Type Department Care Team (Late st Contact Info) Description 10/19/2023 Telephone [facility], [facility] [address] [facility] [place] [address] [facility], Nurse [facility] [address] [facility] [place] ABB[place] [id number] [facility]: Maintenance Allergies Active Allergy [...] (mitral valve repair) 11/16/2022 Atherosclerosis of [place] co 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 pectoris 08/11/2022 Severe tricuspid regurgitation 08/11/2022 Gout, arthropathy 07/20/2022 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 Continues buspar. [facility] Crisis number given to pt by [facility] Behavioral health CM referral placed [...] in the Comments) Remote Patient Monitoring Vendor: [facility] Device(s): Connected Scale Connected Pulse Ox Connected BP Cuff Self - Management Plan Double dose of Furosemide for 3 days Exacerbation Plan BMP Additional Comments: Euvolemic today. Pt requests [facility] scale, BP and pulse ox which was [...] mRNA, LNP-s, No Pre serve, 2-Dose Series ([employer] 05/14/2021 COVID-19, LNP-s, No Preserve , Robbie-sucrose, [...] encounter Miscellaneous Notes * Telephone Encounter - Claribel Quiles RN - 10/19/2023 4:37 PM EDT Call placed to the pt. Made him aware of ANNIE home visit tomorrow. Pt states that he believes that the CHM monitoring is supposed to be completed soon and asking if he could just discontinue wearing. Will forward to Myrtle MARTINEZ for input on CHM monitoring and need for annie tomorrow to troubleshoot. * Addendum Note - Claribel Quiles RN - 10/19/2023 12:44 PM EDTAddended by: CLARIBEL QUILES on: 10/19/2023 12:44 PM Modules accepted: Orders * Telephone Encounter - Claribel Quiles RN - 10/19/2023 12:15 PM EDT Call received from pt. Calling to report that the arm band for his CHM BP cuff is not staying on. States that the velcro is not sticking. Pt asking for a [facility] recruiting team lead to come and trouble shoot AMCcuff. TT message sent to [facility] vb developer to assist with setting up home visit today or tomorrow to trouble shoot [facility] equipment. * Telephone Encounter - Ines Coates RN - 10/19/2023 10:46 AM EDT Received incoming call from pt stating there are no lights on his sensor/sfdc solution architect and thinks there should be. Confirmed sfdc solution architect is plugged into outlet. Had pt unplug/plug back in. Asked pt to move to another outlet. Patient, at that time discovered that the cord was not plugged into the back of the sfdc solution architect. Connected cord and pulsing green lights appeared. Instructed to leave on the sfdc solution architect for 30 minutes,then reapply to arm band. [...] Visit Care Coordination and Integration [address] [place], [place] [id number] Ines Castro, Community Health Call Person [address] [place] [address] 10/26/2023 11:00 AM EDT Tele[facility]icine [facility], [facility] 132 [place] [address] Yadira Omalley CRNP 132 [facility] [place] [place] [address] Ines Castro, Community Health Call Person [address] [place] [address] 10/29/2023 8:00 AM EDT Office Visit Family Practice [address] [place] [address] 293 [place] [address] Benny Waite, 293 [place] [address] 11/18/2023 8:30 AM EDT Home Visit [facility], [facility] 132 [facility] [place] [address] Myrtle Allen RN 132 [facility] [place] [address] 12/03/2023 3:30 PM EDT Office Visit Interventional Pain Center, [facility] 132 [facility] [place] [address] Luann Guerra PA-C [address] [facility] [place] [place] [address] 12/13/2023 11:20 AM EDT Office Visit Family Practice [address] [place] [address] 293 [place] [address] Benny Waite, 293 [place] [address] 12/21/2023 11:00 AM EDT Nurse Only Ancillary 65 [facility] 293 [place] [address] College, Nurse Annual Wellness Visit 65 [facility] 293 [place] [address] 01/12/2024 8:30 AM EDT Office Visit Cardiology, [facility] 132 [place] [address] Franco Mcgregor MD [address] [place] [address] 02/15/2024 8:00 AM EDT Office Visit Cardiology, [facility] 132 [place] [address] Casimiro Barraza MD 132 [place] [address] Health Maintenance Due Date Last Done Comments [...] encounter Medical Devices Implanted Type Area Manager Of Tax Device Identifier Shelf Expiration Date Model / Serial / Lot Device Watchman Flx 35mm - [id number] Implanted:Qty: 1 on 02/05/2022 by Diamond Teran IV, MD at [facility] [employer] : INTRV CARD [id number] 10/20/2024 [id number] 50 / / [id number] Cath Thermodilution 6fr - [id number] Implanted:Qty: 1 on 07/31/2022 by Franco Mcgregor MD at [facility] [employer] [id number] 04/30/2024 [id number] / / [id number] Mirtaclip G4 - [id number] Implanted:Qty: 1 on 11/16/2022 at [facility] [employer] 06/25/2023 [id number] / / [id number] Clip Delivery Sytem G4 Xtw - [id number] Implanted:Qty: 1 on 11/16/2022 at [facility] [employer] [id number] 08/10/2023 [id number] / / [id number] Clip Delivery Sytem G4 Xtw - [id number] Implanted:Qty: 1 on 11/16/2022 at [facility] [employer] [id number] 09/10/2023 [id number] / / [id number] documented as of this encounter Visit [...] and were consensually agreed upon. Care Teams Sewer Line Repairer Relationship Specialty Start Date End Date Benny Waite DO [address] [place] [address] PCP - General Internal Medicine 04/03/21 documented as of this encounter
--- OUTSIDE RECORDS SUMMARY | 2023-12-04 10:20 | External Medical Summary | Summary of Care ---
Author Name Unknown Organization [facility] Address [address] [facility] [place] [address] Phone [phone] Care Team Providers Care Foot Piece Assembler Name Role Phone Benny Waite DO Primary Care Provider [phone] Reason for Visit * Reason Onset Date Comments [facility]: Maintenance 10/19/2023 Encounter Details Date Type Department Care Team (Late st Contact Info) Description 10/19/2023 Telephone [facility], [place] [address] [place] [address] [facility], Nurse [facility] [address] [place] [address] [facility]: Maintenance Allergies Active Allergy [...] Overview: Added automatically from request for surgery [id number] Last Assessment & Plan: S/p Watchman Current [...] No guns in the home. Continues buspar. [facility] Crisis number given to pt by [facility] health CM referral placed Moderate to [...] the Comments) Remote Patient Monitoring Vendor: [facility] Device(s): Connected Scale Connected Pulse Ox Connected BP Cuff Self - Management Plan Double dose of Furosemide for 3 days Exacerbation Plan BMP Additional Comments: Euvolemic today. Pt requests [facility] scale, BP and pulse ox which was [...] Miscellaneous Notes * Telephone Encounter - Agatha Rdedy LPN - 10/19/2023 10:49 AM EDT Call to patient with recommendations to recheck BP at 2p Verbalized understanding * Telephone Encounter - Agatha Reddy LPN - 10/19/2023 10:14 AM EDT Call to patient with recommendations to recheck BP this afternoon UTC on home phone Call to cell Mailbox full Will attempt later today * Telephone Encounter - Domingo Bland PA-C - 10/19/2023 10:02 AM EDT [facility] Remote Medical Command Phone Encounter Thank you for your assistance in the care of this patient today. 83 year old year old male patient who presents today with no complaints today. He was called because his AMC scale noted that his blood pressure was elevated. Per patient his blood pressure typicallyis elevated in the morning and then decreases in the afternoon. Recommendations: Given that the patient is asymptomatic lids conduct a trial of having the patient do his blood pressure in the morning and around 2:00 a.m. each day. Patient is scheduled to see a nurse practitioner on October 26, 2023, his primary care provider on October 29, 2023 This note was prepared with the help of fluency and if there is any mis-spelled words , sentences or something which doesn't represent the content of the subject that could be technical error and please refer to the author for clarification. * Telephone Encounter - Agatha Reddy LPN - 10/19/2023 8:44 AM EDT Images from the original note were not included. [facility] Remote Patient Monitoring Able to contact patient: Trigger type: Abnormal reading(s): AMC (Advanced Monitored Caregiving): Blood Pressure Cuff: Blood pressure per cuff: 151/104 Symptom review: None Diet Reviewed: N/A Fluid [...] WITHOUT symptoms [] Confirmed new SpO2 90-93% [x] Confirmed DBP greater than 90 WITHOUT symptoms [...] selection justification: Spoke to patient denies any headaches, dizziness, palpitations for chest pain, taking medications as directed per med list Rechecked BP still high 138/101 States it has been high in the am then will go down in the afternoon Routing to [facility] /Care team for recommendations Overall risk and identified plan: Moderate risk: Route to RNCM (Registered Nurse Parachute Marker) and Advance Practitioner Route to RMC (Remote Medical Coordinator) documented in this encounter Plan of Treatment Upcoming Encounters Date Type Department Care Team (Late st Contact Info) Description 10/26/2023 11:00 AM EDT Telemedicine [facility] at [facility] 132 [place] [address] Yadira Omalley CRNP 132 [place] [address] Ines Castro, Community Health Echocardiography Tech [address] [place] [address] 10/29/2023 8:00 AM EDT Office Visit Family Practice [address] [place] 293 [place] [id number] Benny Waite, 293 [place] [address] 11/18/2023 8:30 AM EDT Home Visit [facility], [facility] 132 [facility] [place] [address] Myrtle Allen, RN 132 [facility] [place] [address] 12/03/2023 3:30 PM EDT Office Visit Interventional Pain Center, [facility] 132 [facility] [place] [address] Luann Guerra PA-C 132 [place] [address] 12/13/2023 11:20 AM EDT Office Visit Family Practice [address] [place] [address] 293 [place] [address] Benny Waite, 293 [place] [address] 12/21/2023 11:00 AM EDT Nurse Only Ancillary [address] [place] [address] College, Nurse Annual Wellness Visit [address] [place] [address] 01/12/2024 8:30 AM EDT Office Visit Cardiology, [facility] [address] Franco Mcgregor MD [address] [place] [address] 02/15/2024 8:00 AM EDT Office Visit Cardiology, [facility] 132 [facility] [place] [address] Casimiro Barraza MD 132 [place] [address] Health Maintenance Due Date Last Done Comments [...] this encounter Medical Devices Implanted Type Area Well Drill Operator Device Identifier Shelf Expiration Date Model / Serial / Lot Device Watchman Flx 35mm - [id number] Implanted:Qty: 1 on 02/05/2022 by Diamond Teran IV, [place] at [facility] [employer] : INTRV CARD [id number] 10/20/2024 [id number] 50 / / [id number] Cath Thermodilution 6fr - [id number] Implanted:Qty: 1 on 07/31/2022 by Franco Mcgregor MD at [facility] [employer] [id number] 04/30/2024 [id number] / / [id number] Mirtaclip G4 - [id number] Implanted:Qty: 1 on 11/16/2022 at [facility] [employer] 06/25/2023 [id number] / / [id number] Clip Delivery Sytem G4 Xtw - [id number] Implanted:Qty: 1 on 11/16/2022 at [facility] [employer] [id number] 08/10/2023 [id number] TW / / [id number] Clip Delivery Sytem G4 Xtw - [id number] Implanted:Qty: 1 on 11/16/2022 at [facility] [employer] [id number] 09/10/2023 [id number] / / [id number] documented as of this encounter Advance [...] and were consensually agreed upon. Care Teams Foot Piece Assembler Relationship Specialty Start Date End Date Benny Waite DO 293 [place] [address] PCP - General Internal Medicine 04/03/21 documented as of this encounter
--- OUTSIDE RECORDS SUMMARY | 2023-12-04 10:20 | External Medical Summary | Summary of Care ---
Author Name Unknown Organization [facility] Address [address] [facility] [place] [address] Phone [phone] Care Team Providers Care Clinical Scientist Name Role Phone Benny Waite DO Primary Care Provider [phone] Reason for Visit * Reason Onset Date Comments [facility]: Maintenance 10/25/2023 Encounter Details Date Type Department Care Team (Late st Contact Info) Description 10/25/2023 Telephone [facility], [facility] [address] [facility] [place] [address] [facility], Nurse [facility] [address] [facility] [place] ABBAS[place] [id number] [facility]: Maintenance Allergies Active Allergy [...] MVR (mitral valve repair) 11/16/2022 Atherosclerosis of [place] co 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 pectoris 08/11/2022 Severe tricuspid regurgitation 08/11/2022 Gout, arthropathy 07/20/2022 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 Continues buspar. [facility] Crisis number given to pt by [facility] Behavioral health CM referral placed Moderate [facility] Device(s): Connected Scale Connected Pulse Ox Connected BP Cuff Self - Management Plan Double dose of Furosemide for 3 days Exacerbation Plan BMP Additional Comments: Euvolemic today. Pt requests [facility] scale, BP and pulse ox which was [...] mRNA, LNP-s, No Pre serve, 2-Dose Series (CLARED) 05/14/2021 COVID-19, LNP-s, No Preserve , Robbie-sucrose, [...] Telephone Encounter - Yadira Omalley CRNP - 10/25/2023 4:26 PM EDT Pt reporting no BM in 3 days--please see if he is passing gas, having any abd pain. Can use dulcolax supp and/or miralax to have BM. Please follow up tomorrow. * Telephone Encounter - Irlanda Real LPN - 10/25/2023 12:03 PM EDT Images from [...] as applicable): [] Moderate trigger priority on [facility] [] Confirmed tympanic equivalent temperature 100.4-101.9 F [...] as applicable): [x] High trigger priority on [facility] [] Confirmed tympanic equivalent temperature greater than [...] adherent to sodium restriction. Encouraged to call [facility] with any concerns. Overall risk and identified plan: High risk: Route to RNCM (Registered Nurse Ice Skating Coach) and Advance Practitioner documented in this encounter Plan of Treatment Upcoming Encounters Date Type Department Care Team (Late st Contact Info) Description 10/26/2023 11:00 AM EDT Telemedicine [facility], [facility] 132 [facility] [place] [address] Yadira Omalley CRNP 132 [facility] [place] [address] Ines Castro, Community Health Corporate Attorney [address] [place] [address] 10/29/2023 8:00 AM EDT Office Visit [address] 293 [place] [address] Benny Waite, 293 [place] [address] 11/18/2023 8:30 AM EDT Home Visit [facility], [facility] [address] [place] [address] Myrtle Allen RN 132 [facility] [place] [address] 12/03/2023 3:30 PM EDT Office Visit Interventional Pain Center, [facility] [address] [place] [address] Luann Guerra PA-C [address] [place] [address] 12/13/2023 11:20 AM EDT Office Visit [address] 293 [place] [address] Benny Waite DO 293 [place] [address] 12/21/2023 11:00 AM EDT Nurse Only Ancillary 65 [facility] 293 [place] [address] College, Nurse Annual Wellness Visit [address] [place] [address] 01/12/2024 8:30 AM EDT Office Visit Cardiology, [facility] 132 [place] [address] Franco Mcgregor MD [address] [place] [address] 02/15/2024 8:00 AM EDT Office Visit Cardiology, [facility] 132 [facility] [place] [id number] Casiimro Barraza MD 132 [place] [address] Health Maintenance Due Date Last Done Comments [...] this encounter Medical Devices Implanted Type Area Efficiency Miner Device Identifier Shelf Expiration Date Model / Serial / Lot Device Watchman Flx 35mm - [id number] Implanted:Qty: 1 on 02/05/2022 by Diamond Teran IV, MD at [facility] [employer] : INTRV CARD [id number] 10/20/2024 [id number] 50 / / [id number] Cath Thermodilution 6fr - [id number] Implanted:Qty: 1 on 07/31/2022 by Franco Mcgregor MD at [facility] [employer] [id number] 04/30/2024 [id number] / / [id number] Mirtaclip G4 - [id number] Implanted:Qty: 1 on 11/16/2022 at [facility] [employer] 06/25/2023 [id number] / / [id number] Clip Delivery Sytem G4 Xtw - [id number] Implanted:Qty: 1 on 11/16/2022 at [facility] [employer] [id number] 08/10/2023 [id number] TW / / [id number] Clip Delivery Sytem G4 Xtw - [id number] Implanted:Qty: 1 on 11/16/2022 at [facility] [employer] [id number] 09/10/2023 [id number] TW / / [id number] documented as of this encounter Advance [...] were consensually agreed upon. Care Teams Clinical Scientist Relationship Specialty Start Date End Date Benny Waite DO 293 [place] [address] PCP - General Internal Medicine 04/03/21 documented as of this encounter
--- OUTSIDE RECORDS SUMMARY | 2023-12-04 10:20 | External Medical Summary | Summary of Care ---
Author Name Unknown Organization [facility] Address [address] [facility] [place] [address] Phone [phone] Care Team Providers Care Extraction Operator Name Role Phone Benny Waite DO Primary Care Provider [phone] Reason for Visit * Reason Onset Date Comments [facility]: Maintenance 10/25/2023 Encounter Details Date Type Department Care Team (Late st Contact Info) Description 10/25/2023 Telephone [facility], [facility] [address] [facility] [place] [address] [facility], Nurse [facility] [address] [facility] JON ABBASI [id number] [facility]: Maintenance Allergies Active Allergy [...] (mitral valve repair) 11/16/2022 Atherosclerosis of [place] co 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 pectoris 08/11/2022 Severe tricuspid regurgitation 08/11/2022 Gout, arthropathy 07/20/2022 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 Continues buspar. [facility] Crisis number given to pt by [facility] Behavioral health CM referral placed Moderate [...] in the Comments) Remote Patient Monitoring Vendor: [facility] Device(s): Connected Scale Connected Pulse Ox Connected BP Cuff Self - Management Plan Double dose of Furosemide for 3 days Exacerbation Plan BMP Additional Comments: Euvolemic today. Pt requests [facility] scale, BP and pulse ox which was [...] mRNA, LNP-s, No Pre serve, 2-Dose Series (Machine Safety Manangement) 05/14/2021 COVID-19, LNP-s, No Preserve , Robbie-sucrose, [...] Telephone Encounter - Annmarie Shaikh LPN - 10/25/2023 4:33 PM EDT Call to pt states he is passing some gas Repots some ABD pain, discomfort, bloating Relayed instructions from Simona Omalley pt states he thinks he has both dulcolax supp and miralax at home will try one today Pt has a telemed visit scheduled with Simona Omalley tomorrow at 11:30 am no f/u call scheduled Will forward to provider to make aware * Telephone Encounter - Yadira Omalley CRNP - 10/25/2023 4:26 PM EDT Pt reporting no BM in 3 days--please see if he is passing gas, having any abd pain. Can use dulcolax supp and/or miralax to have BM. Please follow up tomorrow. * Telephone Encounter - Irlanda Real AIRPORT DUTY MANAGER - 10/25/2023 12:03 PM EDT Images from [...] adherent to sodium restriction. Encouraged to call [facility] with any concerns. Overall risk and identified plan: High risk: Route to RNCM (Registered Nurse Greaser And Oiler) and Advance Practitioner documented in this encounter Plan of Treatment Upcoming Encounters Date Type Department Care Team (Late st Contact Info) Description 10/26/2023 11:00 AM EDT [facility] 132 [facility] [place] [address] Yadira Omalley CRNP 132 [facility] [place] [address] Ines Castro, Community Health Cutter Operator [address] [place] [address] 10/29/2023 8:00 AM EDT Office Visit Family Practice 65 [facility], [place] 293 [place] [address] Benny Waite, 293 [place] [address] 11/18/2023 8:30 AM EDT [facility] Visit [facility] 132 [facility] [place] [address] Myrtle Allen RN 132 [facility] [place] [address] 12/03/2023 3:30 PM EDT Office Visit Interventional Pain Center, [facility] 132 [facility] [place] [address] Luann Guerra PA-C 132 [facility] [place] [address] 12/13/2023 11:20 AM EDT Office Visit Family Practice [address] [place] [address] 293 [place] [address] Benny Waite, 293 [place] [address] 12/21/2023 11:00 AM EDT Nurse Only Ancillary [address] [place] [address] College, Nurse Annual Wellness Visit [address] [place] [address] 01/12/2024 8:30 AM EDT Office Visit Cardiology, [facility] 132 [facility] [place] [address] Franco Mcgregor MD [address] [place] [address] 02/15/2024 8:00 AM EDT Office Visit Cardiology, [facility] 132 [facility] [place] [address] Casimiro Barraza MD 132 [facility] [address] Health Maintenance Due Date Last Done Comments [...] this encounter Medical Devices Implanted Type Area Pallet Assembler Device Identifier Shelf Expiration Date Model / Serial / Lot Device Watchman Flx 35mm - [id number] Implanted:Qty: 1 on 02/05/2022 by Diamond Teran IV, [place] [facility] [place] [employer] : INTRV CARD [id number] 10/20/2024 [id number] 50 / / [id number] Cath Thermodilution 6fr - [id number] Implanted:Qty: 1 on 07/31/2022 by Franco Mcgregor MD [place] [facility] [place] [employer] [id number] 04/30/2024 [id number] / / [id number] Mirtaclip G4 - [id number] Implanted:Qty: 1 on 11/16/2022 at [facility] [employer] 06/25/2023 [id number] / / [id number] Clip Delivery Sytem G4 Xtw - [id number] Implanted:Qty: 1 on 11/16/2022 at [facility] [employer] [id number] 08/10/2023 [id number] TW / / [id number] Clip Delivery Sytem G4 Xtw - [id number] Implanted:Qty: 1 on 11/16/2022 at [facility] [employer] [id number] 09/10/2023 [id number] / / [id number] documented as of this encounter Advance [...] and were consensually agreed upon. Care Teams Extraction Operator Relationship Specialty Start Date End Date Benny Waite DO [address] [facility] [place] [address] PCP - General Internal Medicine 04/03/21 documented as of this encounter
--- OUTSIDE RECORDS SUMMARY | 2023-12-04 10:20 | External Medical Summary | Summary of Care ---
Author Name Unknown Organization [facility] Address [address] [place] [address] Phone [phone] Care Team Providers Care Skein Bleacher Name Role Phone Benny Waite DO Primary Care Provider [phone] Reason for Visit * Reason Onset Date Comments Appointment 10/19/2023 Encounter Details Date Type Department Care Team (Late st Contact Info) Description 10/19/2023 Telephone [facility], [place] [address] [place], [place] [id number] Services, Scheduling [address] [place] [address] Appointment Allergies Active Allergy Reactions Criticality Noted [...] MVR (mitral valve repair) 11/16/2022 Atherosclerosis of [place] co 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 pectoris 08/11/2022 Severe tricuspid regurgitation 08/11/2022 Gout, arthropathy 07/20/2022 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 No guns in the home. [facility] Crisis number given to pt by [facility] Behavioral health CM referral placed Moderate [place] Device(s): Connected Scale Connected [...] Telephone Encounter - Madelyn Slaughter OSA - 10/19/2023 3:35 PM EDT [facility] the BP Cuff. Appt set for 10/19 documented in this encounter Plan of Treatment Upcoming Encounters Date Type Department Care Team (Late st Contact Info) Description 10/20/2023 9:30 AM EDT Home Visit Care Coordination and Integration [address] [place] [address] Ines Castro, Community Health Information Management Manager [address] [place] [address] 10/26/2023 11:00 AM EDT Telemedicine [facility], [address] [place] [address] Yadira Omalley CRNP 132 [place] [address] Ines Castro, Community Health Information Management Manager [address] [place] [address] 10/29/2023 8:00 AM EDT Office Visit Family Practice [address] [place] [address] 293 [place] [address] Benny Waite, DO 293 [place] [address] 11/18/2023 8:30 AM EDT [facility] Visit [facility], [facility] 132 [facility] [place] [address] Myrtle Allen RN 132 [facility] [place] [address] 12/03/2023 3:30 PM EDT Office Visit Interventional Pain Center, [facility] 132 [facility] [place] [address] Luann Guerra PA-C 132 [facility] [place] [address] 12/13/2023 11:20 AM EDT Office Visit Family Practice [address] [place] [address] 293 [place] [address] Benny Waite, 293 [place] [address] 12/21/2023 11:00 AM EDT Nurse Only Ancillary 65 [facility] 293 [place] [address] College, Nurse Annual Wellness Visit [address] [place] [address], [place] [address] 01/12/2024 8:30 AM EDT Office Visit Cardiology, [facility] 132 [place] [address] Franco Mcgregor MD [address] [place] [address] 02/15/2024 8:00 AM EDT Office Visit Cardiology, [facility] 132 [place] [address] Caismiro Barraza MD 132 [place] [address] Health Maintenance Due Date Last Done Comments [...] this encounter Medical Devices Implanted Type Area Tree Surgeon Device Identifier Shelf Expiration Date Model / Serial / Lot Device Watchman Flx 35mm - [id number] Implanted:Qty: 1 on 02/05/2022 by Diamond Teran IV, MD at [facility] [employer] : INTRV CARD [id number] 10/20/2024 [id number] 50 / / [id number] Cath Thermodilution 6fr - [id number] Implanted:Qty: 1 on 07/31/2022 by Franco Mcgregor MD at [facility] [employer] [id number] 04/30/2024 [id number] / / [id number] Mirtaclip G4 - [id number] Implanted:Qty: 1 on 11/16/2022 at [facility] [employer] 06/25/2023 [id number] / / [id number] Clip Delivery Sytem G4 Xtw - [id number] Implanted:Qty: 1 on 11/16/2022 at [facility] [employer] [id number] 08/10/2023 [id number] TW / / [id number] Clip Delivery Sytem G4 Xtw - [id number] Implanted:Qty: 1 on 11/16/2022 at [facility] [employer] [id number] 09/10/2023 [id number] / / [id number] documented as of this encounter Advance [...] and were consensually agreed upon. Care Teams Skein Bleacher Relationship Specialty Start Date End Date Benny Waite DO 293 [address] [place] [address] PCP - General Internal Medicine 04/03/21 documented as of this encounter
--- OUTSIDE RECORDS SUMMARY | 2023-12-04 10:21 | External Medical Summary | Summary of Care ---
Author Name Unknown Organization [facility] Address [address] [facility] [place] [address] Phone [phone] Care Team Providers Care Gis Administrator Name Role Phone Benny Waite DO Primary Care Provider [phone] Reason for Visit * Reason Onset Date Comments [facility]: Maintenance 10/19/2023 Encounter Details Date Type Department Care Team (Late st Contact Info) Description 10/19/2023 Telephone [facility], [place] [address] [place] [address] 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 Continues buspar. [facility] Crisis number given to pt by [facility] health CM referral placed Moderate to [...] Comments) Remote Patient Monitoring Vendor: [facility] Device(s): Connected Scale Connected Pulse Ox Connected BP Cuff Self - Management Plan Double dose of Furosemide for 3 days Exacerbation Plan BMP Additional Comments: Euvolemic today. Pt requests [facility] scale, BP and pulse [...] with recommendations to recheck BP this afternoon [facility] on home phone Call to cell Mailbox [...] Moderate risk: Route to RNCM (Registered Nurse Telephone Triage Nurse) and Advance Practitioner Route to RMC (Remote Medical Coordinator) documented in this encounter Plan of Treatment Upcoming Encounters Date Type Department Care Team (Late st Contact Info) Description 10/26/2023 11:00 AM EDT [facility]medicine [facility] [address] [facility] [place] [address] Yadira Omalley CRNP 132 [place] [address] Ines Castro, Community Health Front Facer [address] [place] [address] 10/29/2023 8:00 AM EDT Office Visit Family Practice [address] [place] [address], [place] [address] [place] [address] Benny Waite, 293 [place] [address] 11/18/2023 8:30 AM EDT [facility] Visit [facility] [address] [facility] [place] [address] Myrtle Allen RN 132 [facility] [place] [address] 12/03/2023 3:30 PM EDT Office Visit Interventional Pain Center, [facility] 132 [facility] [place] [address] Luann Guerra PA-C 132 [facility] [place] [address] 12/13/2023 11:20 AM EDT Office Visit Family Practice [address] [place] [address] 293 [facility] [place] [address] Benny Waite, 293 [facility] [place] [address] 12/21/2023 11:00 AM EDT Nurse Only Ancillary [address] [place] [address] 293 [place] [address] College, Nurse Annual Wellness Visit [address] [place] [address] 01/12/2024 8:30 AM EDT Office Visit Cardiology, [facility] [address] [facility] [place] [address] Franco Mcgregor MD [address] [place] [address] 02/15/2024 8:00 AM EDT Office Visit Cardiology, [facility] [address] [facility] [place] [address] Casimiro Barraza MD 132 [facility] [place] [address] Health Maintenance Due Date Last Done Comments [...] this encounter Medical Devices Implanted Type Area Edge Stitcher Device Identifier Shelf Expiration Date Model / Serial / Lot Device Watchman Flx 35mm - [id number] Implanted:Qty: 1 on 02/05/2022 by Diamond Teran IV, MD at [facility] [employer] : INTRV CARD [id number] 10/20/2024 [id number] 50 / / [id number] Cath Thermodilution 6fr - [id number] Implanted:Qty: 1 on 07/31/2022 by Franco Mcgregor MD at [facility] [employer] [id number] 04/30/2024 [id number] / / [id number] Mirtaclip G4 - [id number] Implanted:Qty: 1 on 11/16/2022 at [facility] [employer] 06/25/2023 [id number] / / [id number] Clip Delivery Sytem G4 Xtw - [id number] Implanted:Qty: 1 on 11/16/2022 at [facility] [employer] [id number] 08/10/2023 [id number] TW / / [id number] Clip Delivery Sytem G4 Xtw - [id number] Implanted:Qty: 1 on 11/16/2022 at [facility] [employer] [id number] 09/10/2023 [id number] TW / / [id number] documented as of this encounter Advance [...] and were consensually agreed upon. Care Teams Gis Administrator Relationship Specialty Start Date End Date Benny Waite DO 293 [facility] [place] [address] PCP - General Internal Medicine 04/03/21 documented as of this encounter
--- OUTSIDE RECORDS SUMMARY | 2023-12-04 10:21 | External Medical Summary | Summary of Care ---
Author Name Unknown Organization [facility] Address [address] [facility] [place] [address] Phone [phone] Care Team Providers Care Structural Engineering Project Manager Name Role Phone Benny Waite DO Primary Care Provider [phone] Reason for Visit * Reason Onset Date Comments Test Results 10/19/2023 Encounter Details Date Type Department Care Team (Late st Contact Info) Description 10/19/2023 Telephone Cardiology, [facility] [address] [facility] [place] [address] Ale Leon CRNP [address] [facility] [place] [address] Test Results Allergies Active Allergy Reactions Criticality [...] MVR (mitral valve repair) 11/16/2022 Atherosclerosis of [place] co 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 pectoris 08/11/2022 Severe tricuspid regurgitation 08/11/2022 Gout, arthropathy 07/20/2022 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 02/05/2022 Permanent atrial fibrillation 12/22/2021 Overview: Added automatically from request for surgery [id number] Last Assessment & Plan: S/p Watchman Current [...] No guns in the home. Continues buspar. [facility] Crisis number given to pt by [facility] Behavioral health CM referral placed Moderate to [...] [facility] Device(s): Connected Scale Connected Pulse Ox Connected BP Cuff Self - Management Plan Double dose of Furosemide for 3 days Exacerbation Plan BMP Additional Comments: Euvolemic today. Pt requests [facility] scale, BP and pulse ox [...] LNP-s, No Preserve , Robbie-sucrose, Ages 12+ (IO Turbine) 11/04/2021 COVID-19, MRNA-LNP, 23-24, P F, 28 [...] encounter Miscellaneous Notes * Telephone Encounter - Tyree Estrada LPN [...] 11:00 AM EDT Telemedicine [facility], [facility] [address] [place] [address] Yadira Omalley CRNP [address] [place] [address] Ines Castro, Community Health Development Specialist [address] [place] [address] 10/29/2023 8:00 AM EDT Office Visit Family Practice [address] [place] [address] 293 [place] [address] Benny Waite, 293 [place] [address] 11/18/2023 8:30 AM EDT [facility] Visit [facility], [facility] [address] [place] [address] Myrtle Allen RN 132 [facility] [place] [address] 12/03/2023 3:30 PM EDT Office Visit Interventional Pain Center, [facility] [address] [place] [address] Luann Guerra PA-C [facility] [place] [address] 12/13/2023 11:20 AM EDT Office Visit Family Practice 65 [facility] 293 [place] [address] Benny Waite, 293 [place] [address] 12/21/2023 11:00 AM EDT Nurse Only Ancillary [facility] 293 [place] [address] College, Nurse Annual Wellness Visit [address] [place] [place] [address] 01/12/2024 8:30 AM EDT Office Visit Cardiology, [facility] 132 [place] [address] Franco Mcgregor MD [address] [place] [address] 02/15/2024 8:00 AM EDT Office Visit Cardiology, [facility] 132 [place] [address] Casimiro Barraza MD 132 [facility] [place] [address] Health Maintenance Due Date Last Done Comments [...] this encounter Medical Devices Implanted Type Area Hog Slaughterer Device Identifier Shelf Expiration Date Model / Serial / Lot Device Watchman Flx 35mm - [id number] Implanted:Qty: 1 on 02/05/2022 by Diamond Teran IV, MD at [facility] [employer] : INTRV CARD [id number] 10/20/2024 [id number] 50 / / [id number] Cath Thermodilution 6fr - [id number] Implanted:Qty: 1 on 07/31/2022 by Franco Mcgregor MD at [facility] [employer] [id number] 04/30/2024 [id number] / / [id number] Mirtaclip G4 - [id number] Implanted:Qty: 1 on 11/16/2022 at [facility] [employer] 06/25/2023 [id number] / / [id number] Clip Delivery Sytem G4 Xtw - [id number] Implanted:Qty: 1 on 11/16/2022 at [facility] [employer] [id number] 08/10/2023 [id number] TW / / [id number] Clip Delivery Sytem G4 Xtw - [id number] Implanted:Qty: 1 on 11/16/2022 at [facility] [employer] [id number] 09/10/2023 [id number] TW / / [id number] documented as of this encounter Advance [...] and were consensually agreed upon. Care Teams Structural Engineering Project Manager Relationship Specialty Start Date End Date Benny Waite DO [address] [place] [address] PCP - General Internal Medicine 04/03/21 documented as of this encounter
--- OUTSIDE RECORDS SUMMARY | 2023-12-04 10:21 | External Medical Summary | Summary of Care ---
Author Name Unknown Organization [facility] Address [address] [place] [facility] [place] [address] Phone [phone] Care Team Providers Care Community Center Worker Name Role Phone Benny Waite DO Primary Care Provider [phone] Reason for Visit * Reason Onset Date Comments Information 10/18/2023 Encounter Details Date Type Department Care Team (Late st Contact Info) Description 10/18/2023 Telephone Family Practice 65 [facility] [place] [address] [place] [address] Benny Waite DO 293 [place] [address] Information Allergies Active Allergy Reactions Criticality Noted Date Comments Adhesive Tape 02/04/2017 Duloxetine High 07/13/2023 Other Reaction(s): confusion Levofloxacin 09/01/2019 documented as of this encounter (statuses as of 10/18/2023) Medications Medication Sig Dispensed Refills Start Date [...] as of this encounter (statuses as of 10/18/2023) Active Problems Problem Noted Date Diagnosed Date History of CVA (cerebrovascular accident) 2023 Rectal bleeding 08/11/2023 Last Assessment & Plan: Pt reports this is not new and ongoing for one year. Bright red, known hemorrhoids. Had CBC done 08/05 and normal, reports no increased bleeding since that lab draw or since taking plavix. Will share [facility] with [facility] 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 Not on statin--LDL 89. Will defer to PCP to add statin--goal <70 BP at goal today. 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 Continues buspar. [facility] Crisis number given to pt by [facility] Behavioral health CM referral placed Moderate [...] [facility] Device(s): Connected Scale Connected Pulse Ox Connected BP Cuff Self - Management Plan Double dose of Furosemide for 3 days Exacerbation Plan BMP Additional Comments: Euvolemic today. Pt requests [facility] scale, BP and pulse ox which was ordered. 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 documented as of this encounter (statuses as of 10/18/2023) Resolved Problems Problem Noted Date Diagnosed Date [...] as of this encounter (statuses as of 10/18/2023) Immunizations Name Administration Dates Next Due COVID-19 [...] Telephone Encounter - Benny Waite DO - 10/18/2023 4:44 PM EDT Keep visit on 10/25 * Telephone Encounter - Marnie Baker LPN - 10/18/2023 3:29 PM EDT States took bp at home and was high but today is normal. States yesterday didn't feel well today feels ok. States he gets fatigued very easily. Had cardiac study today. Has appt on 10/[address] Waite. * Telephone Encounter - Macy Carbajal OSA - 10/18/2023 2:40 PM EDT Would like to speak to one of the Marnie's documented in this encounter Plan of Treatment Upcoming Encounters Date Type Department Care Team (Late st Contact Info) Description 10/26/2023 11:00 AM EDT Tele[facility]icine [facility], [facility] [address] [place] [address] Yadira Omalley CRNP [address] [place] [address] Ines Castro, Community Health Die Hardener [facility] [place] [address] 10/29/2023 8:00 AM EDT Office Visit Family [address] [place] [address] Benny Waite DO 293 [place] [address] 11/18/2023 8:30 AM EDT [facility] Visit [facility], [facility] [address] [place] [address] Myrtle Allen RN [address] [place] [address] 12/03/2023 3:30 PM EDT Office Visit Interventional Pain Center, [facility] [address] [place] [address] Luann Guerra PA-C [address] [place] [address] 12/13/2023 11:20 AM EDT Office Visit [address] [place] [address] Benny Waite DO 293 [place] [address] 12/21/2023 11:00 AM EDT Nurse Only Ancillary 65 [facility] [place] 293 [place] [address] College, Nurse Annual Wellness Visit [address] [place] [address] 01/12/2024 8:30 AM EDT Office Visit Cardiology, [facility] 132 [place] [address] Franco Mcgregor MD [address] [place] [address] 02/15/2024 8:00 AM EDT Office Visit Cardiology, [facility] 132 [place] [address] Casimiro Barraza MD 132 [place] [address] Health Maintenance Due Date Last Done Comments [...] this encounter Medical Devices Implanted Type Area Post Doc Fellowship Device Identifier Shelf Expiration Date Model / Serial / Lot Device Watchman Flx 35mm - [id number] Implanted:Qty: 1 on 02/05/2022 by Diamond Teran IV, MD at [facility] [employer] : INTRV CARD [id number] 10/20/2024 [id number] 50 / / [id number] Cath Thermodilution 6fr - [id number] Implanted:Qty: 1 on 07/31/2022 by Franco Mcgregor MD at [facility] [employer] [id number] 04/30/2024 [id number] / / [id number] Mirtaclip G4 - [id number] Implanted:Qty: 1 on 11/16/2022 at [facility] [employer] 06/25/2023 [id number] / / [id number] Clip Delivery Sytem G4 Xtw - [id number] Implanted:Qty: 1 on 11/16/2022 at [facility] [employer] [id number] 08/10/2023 [id number] TW / / [id number] Clip Delivery Sytem G4 Xtw - [id number] Implanted:Qty: 1 on 11/16/2022 at [facility] [employer] [id number] 09/10/2023 [id number] TW / / [id number] documented as of this encounter Advance [...] and were consensually agreed upon. Care Teams Community Center Worker Relationship Specialty Start Date End Date Benny Waite DO 293 [place] [address] PCP - General Internal Medicine 04/03/21 documented as of this encounter
--- OUTSIDE RECORDS SUMMARY | 2023-12-04 10:21 | External Medical Summary | Summary of Care ---
Author Name Unknown Organization [facility] Address [address] [facility] [place] [address] Phone [phone] Care Team Providers Care System Operation Superintendent Name Role Phone Benny Waite DO Primary Care Provider [phone] Reason for Visit * Reason Onset Date Comments [facility]: Maintenance 10/19/2023 Encounter Details Date Type Department Care Team (Late st Contact Info) Description 10/19/2023 Telephone [facility], [facility] [address] [facility] [place] [address] [facility], Nurse [facility] [address] [facility] [place] [id number] [facility]: Maintenance Allergies Active Allergy [...] MVR (mitral valve repair) 11/16/2022 Atherosclerosis of [place] co 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 pectoris 08/11/2022 Severe tricuspid regurgitation 08/11/2022 Gout, arthropathy 07/20/2022 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 02/05/2022 Permanent atrial fibrillation 12/22/2021 Overview: Added automatically from request for surgery [id number] Last Assessment & Plan: S/p Watchman Current [...] No guns in the home. Continues buspar. [facility] Crisis number given to pt by [facility] Behavioral health CM referral placed Moderate to [...] in the Comments) Remote Patient Monitoring Vendor: [facility] Device(s): Connected Scale Connected Pulse Ox Connected BP Cuff Self - Management Plan Double dose of Furosemide for 3 days Exacerbation Plan BMP Additional Comments: Euvolemic today. Pt requests [facility] scale, BP and pulse ox which was [...] mRNA, LNP-s, No Pre serve, 2-Dose Series (SCREEMO) 05/14/2021 COVID-19, LNP-s, No Preserve , Robbie-sucrose, [...] Info) Description 10/26/2023 11:00 AM EDT Telemedicine [facility] [address] [place] [address] Yadira Omalley CRNP [address] [place] [address] Ines Castro, Community Health Economics Professor [address] [place] [address] 10/29/2023 8:00 AM EDT Office Visit Family Practice 65 [facility] 293 [place] [address] Benny Waite, DO 293 [place] [address] 11/18/2023 8:30 AM EDT [facility] 132 [facility] [place] [address] Myrtle Allen RN 132 [place] [address] 12/03/2023 3:30 PM EDT Office Visit Interventional Pain Center, [facility] 132 [facility] [place] [address] Luann Guerra PA-C 132 [facility] [address] 12/13/2023 11:20 AM EDT Office Visit Family Practice [address] [place] [address] 293 [place] [address] Benny Waite, 293 [place] [address] 12/21/2023 11:00 AM EDT Nurse Only Ancillary [address] [place] [address] 293 [place] [address] College, Nurse Annual Wellness Visit [address] [place] [address], [place] [address] 01/12/2024 8:30 AM EDT Office Visit Cardiology, [facility] [place] [address] Franco Mcgregor MD [address] [facility], [place] [address] 02/15/2024 8:00 AM EDT Office Visit Cardiology, [facility] [address] [place] [address] Casimiro Barraza MD [address] [place] [address] Health Maintenance Due Date Last Done Comments [...] this encounter Medical Devices Implanted Type Area Assembling Fabricator Device Identifier Shelf Expiration Date Model / Serial / Lot Device Watchman Flx 35mm - [id number] Implanted:Qty: 1 on 02/05/2022 by Diamond Teran IV, MD at [facility] [employer] : INTRV CARD [id number] 10/20/2024 [id number] 50 / / [id number] Cath Thermodilution 6fr - [id number] Implanted:Qty: 1 on 07/31/2022 by Franco Mcgregor MD at [facility] [employer] [id number] 04/30/2024 [id number] / / [id number] Mirtaclip G4 - [id number] Implanted:Qty: 1 on 11/16/2022 at [facility] [employer] 06/25/2023 [id number] / / [id number] Clip Delivery Sytem G4 Xtw - [id number] Implanted:Qty: 1 on 11/16/2022 at [facility] [employer] [id number] 08/10/2023 [id number] / / [id number] Clip Delivery Sytem G4 Xtw - [id number] Implanted:Qty: 1 on 11/16/2022 at [facility] [employer] [id number] 09/10/2023 [id number] / / [id number] documented as of this encounter Advance [...] and were consensually agreed upon. Care Teams System Operation Superintendent Relationship Specialty Start Date End Date Benny Waite DO 293 [place] [address] PCP - General Internal Medicine 04/03/21 documented as of this encounter
--- OUTSIDE RECORDS SUMMARY | 2023-12-04 10:21 | External Medical Summary | Summary of Care ---
Author Name Unknown Organization [facility] Address [address] [place] [address] Phone [phone] Care Team Providers Care Asbestos Remover Name Role Phone Benny Waite DO Primary Care Provider [phone] Reason for Visit * Reason Onset Date Comments Home Monitoring Orders Only 10/14/2023 Encounter Details Date Type Department Care Team (Latest Contact Info) Description 10/14/2023 Home Monitoring Care Coordination and Integration [address], [place] [id number] Josseline Trinh OSA [address] [place] [address] Abnormal vital signs* Allergies Active Allergy Reactions Criticality Noted Date Comments Adhesive Tape 02/04/2017 Duloxetine High 07/13/2023 Other Reaction(s): confusion Levofloxacin 09/01/2019 documented as of this encounter (statuses as of 10/14/2023) Medications Medication Sig Dispensed Refills Start Date [...] as of this encounter (statuses as of 10/14/2023) Active Problems Problem Noted Date Diagnosed Date History of CVA (cerebrovascular accident) 2023 Rectal bleeding 08/11/2023 Last Assessment & Plan: Pt reports this is not new and ongoing for one year. Bright red, known hemorrhoids. Had CBC done 08/05 and normal, reports no increased bleeding since that lab draw or since taking plavix. Will share note with PCP to further evaluate tomorrow at [facility]. 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 Not on statin--LDL 89. Will defer to PCP to add statin--goal <70 BP at goal today. 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 Continues buspar. [facility] Crisis number given to pt by [facility] Behavioral health CM referral placed [...] in the Comments) Remote Patient Monitoring Vendor: [facility] Device(s): Connected Scale Connected Pulse Ox Connected BP Cuff Self - Management Plan Double dose of Furosemide for 3 days Exacerbation Plan BMP Additional Comments: Euvolemic today. Pt requests [facility] scale, BP and pulse ox which was ordered. 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 documented as of this encounter (statuses as of 10/14/2023) Resolved Problems Problem Noted Date Diagnosed Date [...] as of this encounter (statuses as of 10/14/2023) Immunizations Name Administration Dates Next Due COVID-19 [...] as of this encounter Progress Notes * Josseline Trinh OSA - 10/14/2023 1:13 PM EDT Patient has been successfully enrolled to the [id number] program and will be provided with the Current AppUpper - ASO Wearable device to facilitate their participation in remote monitoring: [facility] wearable only Patient has been oriented to remote patient monitoring by their Habilitation Worker. The case operator has also provided the patient with instruction and education regarding the program. Current health to assist with initial device set-up. Delivery Method: On-Hand Kit Kit Name: Nick hogan Delivered by Ines Castro Diagnosis: Vital Sign Trending Patient understands that this monitoring should not be used as a replacement for emergency and/or urgent care. If patient experiences any urgent symptoms, they are aware to call their corporate safety manager for additional instructions. In emergency situations, they will either call 911 or report directly to the ED for further evaluation. documented in this encounter Plan of Treatment Upcoming Encounters Date Type Department Care Team (Late st Contact Info) Description 10/14/2023 2:30 PM EDT Home Visit Care Coordination and Integration [address] [place] [address] Ines Castro, Community Health Company Manager [address] [place] [address] 10/15/2023 10:30 AM EDT Scheduled Telephone Family Practice [address] [place] [address] [address] [place] [address] College, Nurse [facility] Prac [address] [place] [address] 10/18/2023 11:30 AM EDT Cardiac Studies Cardiac Studies, [facility] [address] 10/26/2023 11:00 AM EDT Telemedicine [facility], [facility] 132 [facility] [place] [address] Yadira Omalley CRNP 132 [facility] [address] Ines Castro, Community Health Company Manager [address] [place] [address] 10/29/2023 8:00 AM EDT Office Visit Family Practice [address] [place] [address] [address] [place] [address] Benny Waite, [address] [place] [address] 11/18/2023 8:30 AM EDT Home Visit [facility], [facility] 132 [facility] [place] [address] Myrtle Allen, RN 132 [facility] [place] [address] 12/03/2023 3:30 PM EDT Office Visit Interventional Pain Center, [facility] 132 [facility] [place] [address] Luann Guerra PA-C 132 [facility] [place] [address] 12/13/2023 11:20 AM EDT Office Visit Family Practice [address] [place] [address], [place] [address] Benny Waite, [address] [place] [address] 12/21/2023 11:00 AM EDT Nurse Only Ancillary [address] [place] [address], [place] [address] College, Nurse Annual Wellness Visit [address] [place] [address] 01/12/2024 8:30 AM EDT Office Visit Cardiology, [facility] 132 [facility] [place] [address] Franco Mcgregor MD [address] [place] [address] 02/15/2024 8:00 AM EDT Office Visit Cardiology, [facility] 132 [facility] [place] [address] Casimiro Barraza MD 132 [facility] [place] [address] Health Maintenance Due Date Last Done Comments [...] encounter Medical Devices Implanted Type Area Manager Access Device Identifier Shelf Expiration Date Model / Serial / Lot Device Watchman Flx 35mm - [id number] Implanted:Qty: 1 on 02/05/2022 by Diamond Teran IV, MD at [email or web address] : INTRV CARD [id number] 10/20/2024 [id number] / / [id number] Cath Thermodilution 6fr - [id number] Implanted:Qty: 1 on 07/31/2022 by Franco Mcgregor MD at [facility] [employer] [id number] 04/30/2024 [id number] / / [id number] Mirtaclip G4 - [id number] Implanted:Qty: 1 on 11/16/2022 at [facility] [employer] 06/25/2023 [id number] / / [id number] Clip Delivery Sytem G4 Xtw - [id number] Implanted:Qty: 1 on 11/16/2022 at [facility] [employer] [id number] 08/10/2023 [id number] / / [id number] Clip Delivery Sytem G4 Xtw - [id number] Implanted:Qty: 1 on 11/16/2022 at [facility] [employer] [id number] 09/10/2023 [id number] / / [id number] documented as of this encounter Visit Diagnoses Diagnosis Abnormal vital signs- Primary documented in this encounter Advance Directives [...] and were consensually agreed upon. Care Teams Asbestos Remover Relationship Specialty Start Date End Date Benny Waite DO [address] [place] [address] PCP - General Internal Medicine 04/03/21 documented as of this encounter
--- OUTSIDE RECORDS SUMMARY | 2023-12-04 10:21 | External Medical Summary | Summary of Care ---
Author Name Unknown Organization [facility] Address [address] [facility] [place] [address] Phone [phone] Care Team Providers Care Mattress Specialist Name Role Phone Benny Waite DO Primary Care Provider [phone] Reason for Referral * Evaluate & Treat - Unlimited Visits (Within 10 days (routine)) - Pending Review Specialty Diagnoses / Procedures Referred By Elaina hernandez Referred To Contact Laboratory Veterinarian Diagnoses DEX (obstructive sleep apnea) Arturo Saenz DO [address] [facility] [place] [address] Referral ID Status Reason Start Date Expiration Date Visits Requested Visits Authorized [id number] Pending Review Specialty Services Required 10/14/[phone] Question Answer Referral Priority Within 10 days (routine) Program Type [facility] Current Health Device(s) Requested 04/01 Wearable Where should this appointment be scheduled? [facility] Alarm Settings Standard per protocol Comments Current Health Monitor Ordering Form: Method of Delivery: On-Hand Kit Delivery: "One of our team members will deliver the kit to your home and aide in the set up." Enrollment Diagnosis: Vital Sign Trending Anticipated Duration: 7-14 days Responsible Program: [facility] Reason for Visit * Reason Comments [facility]: Maintenance Encounter Details Date Type Department Care Team (Late st Contact Info) Description 10/14/2023 8:30 AM EDT Home Visit [facility], [address] [place] [address] Myrtle Allen RN 132 [place] [address] DEX (obstructive sleep apnea)* Allergies Active Allergy [...] MVR (mitral valve repair) 11/16/2022 Atherosclerosis of marshall co 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 pectoris 08/11/2022 Severe tricuspid regurgitation 08/11/2022 Gout, arthropathy 07/20/2022 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 Continues buspar. [facility] Crisis number given to pt by [facility] Home health referral placed Moderate to severe mitral regurgitation [...] mRNA, LNP-s, No Pre serve, 2-Dose Series ([employer]) 08/20/2020,07/17/2020 COVID-19 mRNA, LNP-s, No Pre serve, 2-Dose Series ([employer]) 05/14/2021 COVID-19, LNP-s, No Preserve , Robbie-sucrose, Ages 12+ ([employer]) 11/04/2021 COVID-19, MRNA-LNP, 23-24, P F, 30 MCG/0.3 mL, 12 YRS AND ABOVE, IM ([employer]) 04/16/2023 Covid-19, Mrna, Lnp-s, Pf, B ivalent, 30 Mcg, IM, 12 yrs and above ([employer]) 03/17/2022 Pneumococcal Conjugate Vacc, 13 Valent (Prevnar) [...] Sign Reading Time Taken Comments Blood Pressure 124/64 10/14/2023 8:51 AM EDT Pulse 72 10/14/2023 8:51 AM EDT Temperature 36.4 C (97.6 F) 10/14/2023 8:51 AM ED T Respiratory Rate 18 10/14/2023 8:51 AM EDT Oxygen Saturation 94% 10/14/2023 8:51 AM EDT RA at rest Inhaled Oxygen Concentration - - Weight 98.2 kg (216 lb 8 oz) 10/14/2023 8:51 AM EDT Height - - Body Mass Index 33.66 08/25/2023 9:27 AM EDT documented in this encounter Functional [...] Progress Notes * Myrtle Allen RN - 10/14/2023 6:43 AM EDT Images from the original note were not included. [facility] Laboratory Veterinarian Visit Date: 10/14/2023 Time: 8:43 AM Name: Nikolas Silvestre : 1940 Current Concerns: Pt seen for return RNCM visit His last week on hospice services Tearful at times but states it was for the best and he is holding up Provided support Received new [facility] scale and it did transmit okay BP cuff was not transmitting Pt was checking bp in a different room and had pt check closer to router Also called [facility] for troubleshooting and is transmitting now. Saw PCP earlier this week at [address] Was referred to Pain Medicine for ongoing back pain Referred to podiatry for nail care No changes in meds noted At last PCP appt on 09/27, his furosemide was increased from 20mg 3x a week to daily and tramadol increased to TID PRN from BID PRN He states he has only been taking it as needed, has not been taking it 3x a day States he gets SOB with exertion Also gets a pain across his chest, not new and is not associated with activity or SOB - cannot say if it is every day or several times a week - does report that it happens when he is outside being more active Pt has had some low oxygen level readings He states they are usually low when he first gets up States he had a sleep apnea test in the past and also had a bipap but he does not want to do that again He is agreeable to have CH 24/7 Wearable device to track pulse ox trends for a week or two Referral placed for CHW delivery Physical Exam: BP 124/64 | Pulse 65 | Temp 36.4 C (97.6 F) | Resp 18 | Wt 98.2 kg (216 lb 8 oz) | SpO2 94% Comment: RA at rest | BMI 33.66 kg/m | BSA 2.16 m Pain 0 Physical Exam Constitutional: General: He is not in acute distress. Cardiovascular: Rate and Rhythm: Normal rate and regular rhythm. Pulses: Normal pulses. Pulmonary: Effort: Pulmonary effort is normal. Breath sounds: Wheezing (LLL) present. Abdominal: General: Bowel sounds are normal. Palpations: Abdomen is soft. Skin: General: Skin is warm and dry. Neurological: Mental Status: He is alert and oriented to person, place, and time. Problems/Symptoms: Review of Systems Constitutional: Negative. HENT: Negative. Respiratory: Positive for shortness of breath (CHESTER _ at baseline). Gastrointestinal: Negative. Genitourinary: Negative. Musculoskeletal: Positive for arthralgias and back pain. Skin: Negative. Psychiatric/Behavioral: Positive for dysphoric mood. Medication Reconciliation: (See medication list) Does patient take medications as ordered: Yes Patient Well Being: PHQ2/9: No questionnaires available. Support provided on recent passing of Denies falls [facility]-10 Completed this Visit: No. Routine visit and No falls since last visit Advanced Care Planning: No documentation, ACP on file. Reinforcement/Education: Educated on home safety: Create a fall [...] exercises that will be right for you. Reviewed HF symptom monitoring: -Weigh self daily [...] if at night -increased fatigue or vertigo Reinforced safety education and fall prevention. and Reinforced medication regimen. Timing., Dosing., and Purspose. Treatment/Plan: Continue meds as prescribed/reviewed Tramadol prn for pain Also takes apap twice a day Low Na diet Meclizine prn for dizziness Use of assistive device Keep all appts as scheduled Daily wts, bp and pulse ox readings via [facility] RPM for Wearable device referral placed Home Interventions Provided: Home Intervention: Other; eval Reinforced current Plan of Care, including self-management and medication regimen Patient's 'Red Flags': Worsening SOB Poor balance Feeling more depressed or down Patient Needs to Remember: Call [facility] at with any new or worsening health concerns or problems, red flag symptoms. Referrals Needed: Other [facility] Wearable RPM Follow Up: Is there cellular connectivity/connectivity in the home? Yes Does the patient have internet in the home? Yes Patient encouraged to call the intake phone number for all urgent but not emergent issues. Is the patient new to [facility] within the last 30 days? No, Assess appropriateness for upcoming telehealth visits. Cancel telehealth visits & schedule home visit with care team sports sales associate(s)as indicated. Provider is in agreement with Plan of Care: Yes Scheduled to follow up with patient in 10 days with provider, 3 weeks with RNCM. Myrtle Allen, RN 10/14/2023 8:43 AM documented in this encounter Plan of Treatment Upcoming Encounters Date Type Department Care Team (Late st Contact Info) Description 10/14/2023 2:30 PM EDT Home Visit Care Coordination and Integration [address] [place] [address] Ines Castro, Community Health Art Preparator [address] [place] [address] 10/15/2023 10:30 AM EDT Scheduled Telephone Family Practice [address] [place] [address] [address] [place] [address] College, Nurse [facility] Prac [address] [place] [address] 10/18/2023 11:30 AM EDT Cardiac Studies Cardiac Studies, [facility] 132 [place] [address] 10/26/2023 11:00 AM EDT Telemedicine [facility], [facility] 132 [place] [address] Yadira Omalley CRNP 132 [place] [address] Ines Castro, Community Health Art Preparator [address] [place] [address] 10/29/2023 8:00 AM EDT Office Visit Family Practice [address] [place] [address] [address] [place] [address] Benny Waite DO [address] [place] [address] 11/18/2023 8:30 AM EDT Home Visit [facility], [facility] 132 [facility] [place] [address] Myrtle Allen, RN 132 [facility] [place] [address] 12/03/2023 3:30 PM EDT Office Visit Interventional Pain Center, [facility] 132 [facility] [place] [address] Luann Guerra PA-C 132 [facility] [place] [address] 12/13/2023 11:20 AM EDT Office Visit Family Practice [address] [place] [address] [address] [place] [address] Benny Waite, [address] [place] [address] 12/21/2023 11:00 AM EDT Nurse Only Ancillary [address] [address] [place], Nurse Annual Wellness Visit [address] [address] 01/12/2024 8:30 AM EDT Office Visit Cardiology, [facility] 132 [facility] [place] [address] Franco Mcgregor MD [address] [place] [address] 02/15/2024 8:00 AM EDT Office Visit Cardiology, [facility] 132 [facility] [place] [address] Casimiro [facility]raza MD [facility] [address] Scheduled Referrals Name Type Priority Associated Diagnoses Orde r Schedule REMOTE PATIENT MONITORING REFERRAL Referral Within 10 days (routine) DEX (obstructive sleep apnea) Ordered: 10/14/2023 Health Maintenance Due Date Last Done Comments [...] this encounter Medical Devices Implanted Type Area Statistical Machine Mechanic Device Identifier Shelf Expiration Date Model / Serial / Lot Device Watchman Flx 35mm - [id number] Implanted:Qty: 1 on 02/05/2022 by Diamond Teran IV, MD at [facility] [id number] : INTRV CARD [id number] 10/20/2024 [id number] / / [id number] Cath Thermodilution 6fr - [id number] Implanted:Qty: 1 on 07/31/2022 by Franco Mcgregor MD at [facility] [employer] [id number] 04/30/2024 [id number] / / [id number] Mirtaclip G4 - [id number] Implanted:Qty: 1 on 11/16/2022 at [facility] [employer] 06/25/2023 [id number] / / [id number] Clip Delivery Sytem G4 Xtw - [id number] Implanted:Qty: 1 on 11/16/2022 at [facility] [employer] [id number] 08/10/2023 [id number] / / [id number] Clip Delivery Sytem G4 Xtw - [id number] Implanted:Qty: 1 on 11/16/2022 at [facility] [employer] [id number] 09/10/2023 [id number] / / [id number] documented as of this encounter Visit Diagnoses Diagnosis DEX (obstructive sleep apnea)- Primary Obstructive sleep apnea (adult) (pediatric) documented in this encounter Advance Directives Latest [...] and were consensually agreed upon. Care Teams Mattress Specialist Relationship Specialty Start Date End Date Benny Waite DO [address] [place] [address] PCP - General Internal Medicine 04/03/21 documented as of this encounter
--- OUTSIDE RECORDS SUMMARY | 2023-12-04 10:21 | External Medical Summary | Summary of Care ---
Author Name Unknown Organization [facility] Address [address] [facility] [place] [address] Phone [phone] Care Team Providers Care Fire Claims Adjuster Name Role Phone Benny Waite DO Primary Care Provider [phone] Reason for Visit * Reason Onset Date Comments [facility]: Maintenance 10/19/2023 Encounter Details Date Type Department Care Team (Late st Contact Info) Description 10/19/2023 Telephone [facility], [place] [facility] [address] [place] [address] [facility], Nurse 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 Continues buspar. [facility] Crisis number given to pt by [facility] health CM referral placed Moderate to [...] [facility] Device(s): Connected Scale Connected Pulse Ox Connected BP Cuff Self - Management Plan Double dose of Furosemide for 3 days Exacerbation Plan BMP Additional Comments: Euvolemic today. Pt requests [facility] scale, BP and pulse ox which was [...] Encounter - Agatha Rdedy LPN - 10/19/2023 8:44 AM EDT Images from the original note were not included. [facility] at Home Remote Patient Monitoring Able to [...] Moderate risk: Route to RNCM (Registered Nurse Program Admin) and Advance Practitioner Route to RMC (Remote Medical Coordinator) documented in this encounter Plan of Treatment Upcoming Encounters Date Type Department Care Team (Late st Contact Info) Description 10/26/2023 11:00 AM EDT Telemedicine [facility] at [facility] [address] [place] [address] Yadira Omalley CRNP [address] [place] [address] Ines Castro, Community Health Predatory Hunter [facility] [place] [address] 10/29/2023 8:00 AM EDT Office Visit Family Practice 65 [facility] 293 [place] [address] Benny Waite, DO 293 [place] [address] 11/18/2023 8:30 AM EDT [facility] Visit [facility], [facility] 132 [facility] [place] [address] Myrtle Allen, RN 132 [facility] [place] [address] 12/03/2023 3:30 PM EDT Office Visit Interventional Pain Center, [facility] 132 [facility] [place] [address] Luann Guerra PA-C 132 [place] [address] 12/13/2023 11:20 AM EDT Office Visit Family Practice 65 [facility] 293 [place] [address] Benny Waite, DO 293 [place] [address] 12/21/2023 11:00 AM EDT Nurse Only Ancillary 65 [facility] 293 [place] [address] College, Nurse Annual Wellness Visit [address] [place] [address] 01/12/2024 8:30 AM EDT Office Visit Cardiology, [facility] 132 [facility] [place] [address] Franco Mcgregor MD [address] [place] [facility] [place] [address] 02/15/2024 8:00 AM EDT Office Visit Cardiology, [facility] [address] [place] [address] Casimiro Barraza MD [address] [place] [address] Health Maintenance Due Date Last Done Comments [...] this encounter Medical Devices Implanted Type Area Clipper Counters Device Identifier Shelf Expiration Date Model / Serial / Lot Device Watchman Flx 35mm - [id number] Implanted:Qty: 1 on 02/05/2022 by Diamond Teran IV, MD at [facility] [employer] : INTRV CARD [id number] 10/20/2024 [id number] 50 / / [id number] Cath Thermodilution 6fr - [id number] Implanted:Qty: 1 on 07/31/2022 by Franco Mcgregor MD at [facility] [employer] [id number] 04/30/2024 [id number] / / [id number] Mirtaclip G4 - [id number] Implanted:Qty: 1 on 11/16/2022 at [facility] [employer] 06/25/2023 [id number] / / [id number] Clip Delivery Sytem G4 Xtw - [id number] Implanted:Qty: 1 on 11/16/2022 at [facility] [employer] [id number] 08/10/2023 [id number] / / [id number] Clip Delivery Sytem G4 Xtw - [id number] Implanted:Qty: 1 on 11/16/2022 at [facility] [employer] [id number] 09/10/2023 [id number] / / [id number] documented as of this encounter Advance [...] were consensually agreed upon. Care Teams Fire Claims Adjuster Relationship Specialty Start Date End Date Benny Waite DO [address] [place] [address] PCP - General Internal Medicine 04/03/21 documented as of this encounter
--- OUTSIDE RECORDS SUMMARY | 2023-12-04 10:21 | External Medical Summary | Summary of Care ---
Author Name Unknown Organization [facility] Address [address] [facility] [place] [address] Phone [phone] Care Team Providers Care Gig Tender Name Role Phone Benny Waite DO Primary Care Provider Reason for Visit * Reason Onset Date Comments [facility]: Maintenance 10/15/2023 Encounter Details Date Type Department Care Team (Late st Contact Info) Description 10/15/2023 Telephone [facility], [facility] [address] [facility] [place] [address] [facility], Nurse [facility] [address] [facility] J[place] ABBASI [phone] [facility]: Maintenance Allergies Active Allergy Reactions Criticality Noted Date Comments Adhesive Tape 02/04/2017 Duloxetine High 07/13/2023 Other Reaction(s): confusion Levofloxacin 09/01/2019 documented as of this encounter (statuses as of 10/15/2023) Medications Medication Sig Dispensed Refills Start Date [...] as of this encounter (statuses as of 10/15/2023) Active Problems Problem Noted Date Diagnosed Date [...] MVR (mitral valve repair) 11/16/2022 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 Continues buspar. [facility] Crisis number given to pt by [facility] Behavioral health CM referral placed Moderate [...] [facility] Device(s): Connected Scale Connected Pulse Ox Connected BP Cuff Self - Management Plan Double dose of Furosemide for 3 days Exacerbation Plan BMP Additional Comments: Euvolemic today. Pt requests [facility] scale, BP and pulse ox which was ordered. 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 documented as of this encounter (statuses as of 10/15/2023) Resolved Problems Problem Noted Date Diagnosed Date [...] as of this encounter (statuses as of 10/15/2023) Immunizations Name Administration Dates Next Due COVID-19 mRNA, LNP-s, No Pre serve, 2-Dose Series (Moderna) 08/20/2020,07/17/2020 COVID-19 mRNA, LNP-s, No Pre serve, 2-Dose Series (VenueAgent) 05/14/2021 COVID-19, LNP-s, No Preserve , Robbie-sucrose, [...] encounter Miscellaneous Notes * Telephone Encounter - Joni GaylaAMBER mayen - 10/15/2023 12:16 PM EDT Images from the original note were not included. [facility] at Home Remote Patient Monitoring Able to contact patient: Trigger type: Abnormal reading(s): 82 Symptom review: none Diet Reviewed: Yes. Patient has had any foods high in sodium: No Fluid Intake Reviewed: No, Self-Management Plan Reviewed: Red Flags: Risk assignment recommendation: Moderate risk findings (check [...] 90 WITH symptoms Additional risk selection justification: spoke with Nikolas states he feels fine denies any SOB, chest discomfort states he is just relaxing today and will call if he needs us. Nikolas mentioned he is currently unable to use BP Due to being handicap and not being able to use that arm Overall risk and identified plan: Moderate risk: Next day follow up call scheduled Route to RNCM (Registered Nurse [place]) and Advance Practitioner documented in this encounter Plan of Treatment Upcoming Encounters Date Type Department Care Team (Late st Contact Info) Description 10/18/2023 11:30 AM EDT Cardiac Studies Cardiac Studies, [facility] [address] [place] [address] 10/26/2023 11:00 AM EDT Telemedicine [facility] [place], [facility] [address] [place] [address] Yadira Omalley CRNP [address] [place] [address] Ines Castro, Community Health Pediatric Immunologist [address] [place] [address] 10/29/2023 8:00 AM EDT Office Visit Family Practice 65 [facility] 293 [place] [address] Benny Waite, DO 293 [place] [address] 11/18/2023 8:30 AM EDT Home Visit [facility] at [facility] 132 [place] [address] Myrtle Allen RN 132 [place] [address] 12/03/2023 3:30 PM EDT Office Visit Interventional Pain Center, [facility] 132 [facility] [address] Luann Guerra PA-C 132 [place] [address] 12/13/2023 11:20 AM EDT Office Visit Family Practice [address] [place] [address] 293 [place] [address] Benny Waite, DO 293 [place] [address] 12/21/2023 11:00 AM EDT Nurse Only Ancillary [address] [place] [address] 293 [place] [address] College, Nurse Annual Wellness Visit [address] [place] [address], [place] [address] 01/12/2024 8:30 AM EDT Office Visit Cardiology, [facility] 132 [place] [address] Franco Mcgregor MD [address] [place] [address] 02/15/2024 8:00 AM EDT Office Visit Cardiology, [facility] [address] [place] [address] Casimiro Barraza MD [address] [place] [address] Health Maintenance Due Date Last Done Comments [...] this encounter Medical Devices Implanted Type Area Vegetable Harvest Worker Device Identifier Shelf Expiration Date Model / Serial / Lot Device Watchman Flx 35mm - [id number] Implanted:Qty: 1 on 02/05/2022 by Diamond Teran IV, MD at [facility] [employer] : INTRV CARD [id number] 10/20/2024 [id number] 50 / / [id number] Cath Thermodilution 6fr - [id number] Implanted:Qty: 1 on 07/31/2022 by Franco Mcgregor MD at [facility] [employer] [id number] 04/30/2024 [id number] / / [id number] Mirtaclip G4 - [id number] Implanted:Qty: 1 on 11/16/[address] [facility] [employer] 06/25/2023 [id number] / / [id number] Clip Delivery Sytem G4 Xtw - [id number] Implanted:Qty: 1 on 11/16/[address] [facility] [employer] [id number] 08/10/2023 [id number] TW / / [id number] Clip Delivery Sytem G4 Xtw - [id number] Implanted:Qty: 1 on 11/16/[address] [facility] [employer] [id number] 09/10/2023 [id number] TW / / [id number] documented as of this encounter Advance [...] and were consensually agreed upon. Care Teams Gig Tender Relationship Specialty Start Date End Date Benny Waite DO 293 [place] [address] PCP - General Internal Medicine 04/03/21 documented as of this encounter
--- OUTSIDE RECORDS SUMMARY | 2023-12-04 10:21 | External Medical Summary | Summary of Care ---
Author Name Unknown Organization [facility] Address [address] [facility] [place] [address] Phone [phone] Care Team Providers Care Negative Turner Name Role Phone Benny Waite DO Primary Care Provider [phone] Reason for Visit * Reason Onset Date Comments [facility]: Maintenance 10/14/2023 Encounter Details Date Type Department Care Team (Late st Contact Info) Description 10/14/2023 Telephone [facility], [facility] [address] [facility] [place] [address] [facility], Nurse [facility] [address] [facility] JON BORJAS [phone] [facility]: Maintenance Allergies Active Allergy [...] MVR (mitral valve repair) 11/16/2022 Atherosclerosis of tanacross co 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 pectoris 08/11/2022 Severe tricuspid regurgitation 08/11/2022 Gout, arthropathy 07/20/2022 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 Continues buspar. [facility] Crisis number given to pt by [facility] Behavioral health CM referral placed Moderate [...] [facility] Device(s): Connected Scale Connected Pulse Ox Connected BP Cuff Self - Management Plan Double dose of Furosemide for 3 days Exacerbation Plan BMP Additional Comments: Euvolemic today. Pt requests [facility] scale, BP and pulse ox [...] mRNA, LNP-s, No Pre serve, 2-Dose Series (Motostrano) 05/14/2021 COVID-19, LNP-s, No Preserve , Robbie-sucrose, [...] Telephone Encounter - Annmarie Shaikh LPN - 10/14/2023 4:03 PM EDT Images from the original note were not included. Pt on [facility] report for instillation Review of [facility] and [facility] notes. Pt seen by [facility] today / and RNCM assisted with set up Review of [facility] readings are transmitting documented in this encounter Plan of Treatment Upcoming Encounters Date Type Department Care Team (Late st Contact Info) Description 10/15/2023 10:30 AM EDT Scheduled Telephone Family Practice 65 [facility] [place] 293 [facility] [place] [address] [place], Nurse [facility] Prac [address] [place] [address] 10/18/2023 11:30 AM EDT Cardiac Studies Cardiac Studies, [facility] [place] [address] 10/26/2023 11:00 AM EDT [facility]icine [facility], [facility] 132 [place] [address] Yadira Omalley CRNP 132 [facility] [address] Ines Castro, Community Health Floral Associate [facility] [place] [address] 10/29/2023 8:00 AM EDT Office Visit Family Practice [address] [place] [address] 293 [place] [address] Benny Waite, 293 [place] [address] 11/18/2023 8:30 AM EDT Home Visit [facility], [facility] 132 [facility] [place] [address] Myrtle Allen RN 132 [facility] [place] [address] 12/03/2023 3:30 PM EDT Office Visit Interventional Pain Center, [facility] 132 [place] [address] Luann Guerra PA-C 132 [facility] [address] 12/13/2023 11:20 AM EDT Office Visit Family [address] [place] [address] Benny Waite, 293 [place] [address] 12/21/2023 11:00 AM EDT Nurse Only Ancillary 65 [facility] 293 [facility] [place] [address] College, Nurse Annual Wellness Visit [address] [place] [address] 01/12/2024 8:30 AM EDT Office Visit Cardiology, [facility] 132 [place] [address] Franco Mcgregor MD [address] [place] [address] 02/15/2024 8:00 AM EDT Office Visit Cardiology, [facility] 132 [facility] [place] [address] Casimiro Barraza MD 132 [place] [address] Health Maintenance Due Date Last Done Comments [...] this encounter Medical Devices Implanted Type Area Veneer Drier Tailer Device Identifier Shelf Expiration Date Model / Serial / Lot Device Watchman Flx 35mm - [id number] Implanted:Qty: 1 on 02/05/2022 by Diamond Teran IV, MD at [facility] [email or web address] : INTRV CARD [id number] 10/20/2024 [id number] 50 / / [id number] Cath Thermodilution 6fr - [id number] Implanted:Qty: 1 on 07/31/2022 by Franco Mcgregor MD at [facility] [employer] [id number] 04/30/2024 [id number] / / [id number] Mirtaclip G4 - [id number] Implanted:Qty: 1 on 11/16/2022 at [facility] [employer] 06/25/2023 [id number] / / [id number] Clip Delivery Sytem G4 Xtw - [id number] Implanted:Qty: 1 on 11/16/2022 at [facility] [employer] [id number] 08/10/2023 [id number] TW / / [id number] Clip Delivery Sytem G4 Xtw - [id number] Implanted:Qty: 1 on 11/16/2022 at [facility] [employer] [id number] 09/10/2023 [id number] TW / / [id number] documented as of this encounter Advance [...] and were consensually agreed upon. Care Teams Negative Turner Relationship Specialty Start Date End Date Benny Waite DO [address] [facility] [place] [address] PCP - General Internal Medicine 04/03/21 documented as of this encounter
--- OUTSIDE RECORDS SUMMARY | 2023-12-04 10:21 | External Medical Summary | Summary of Care ---
Author Name Unknown Organization [facility] Address [address] [facility] [place] [address] Phone [phone] Care Team Providers Care Filler Leaf Cutter Long Name Role Phone Benny Waite DO Primary Care Provider [phone] Reason for Visit * Reason Onset Date Comments [facility]: Maintenance 10/19/2023 Encounter Details Date Type Department Care Team (Late st Contact Info) Description 10/19/2023 Telephone [facility], [facility] [address] [facility] J[place] [address] [facility], Nurse [facility] 1000 [address] [facility] JON ABBASI [phone] [facility]: Maintenance Allergies Active Allergy [...] MVR (mitral valve repair) 11/16/2022 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 08/11/2022 Severe tricuspid regurgitation 08/11/2022 Gout, arthropathy 07/20/2022 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 Continues buspar. [facility] Crisis number given to pt by [facility] Behavioral health CM referral placed Moderate to [...] [facility] [place] Device(s): Connected Scale Connected Pulse Ox Connected BP Cuff Self - Management Plan Double dose of Furosemide for 3 days Exacerbation Plan BMP Additional Comments: Euvolemic today. Pt requests [facility] scale, BP and pulse [...] mRNA, LNP-s, No Pre serve, 2-Dose Series ([email or web address]) 05/14/2021 COVID-19, LNP-s, No Preserve , Robbie-sucrose, [...] stating there are no lights on his sensor/waiter/waitress economy class and thinks there should be. Confirmed waiter/waitress economy class is plugged into outlet. Had pt unplug/plug back in. Asked pt to move to another outlet. Patient, at that time discovered that the cord was not plugged into the back of the waiter/waitress economy class. Connected cord and pulsing green lights appeared. Instructed to leave on the waiter/waitress economy class for 30 minutes,then reapply to arm band. [...] 11:00 AM EDT Telemedicine [facility], [facility] [address] [place] [address] Yadira Omalley CRNP [address] [place] [address] Ines Castro, Community Health [employer] [address] [place] [address] 10/29/2023 8:00 AM EDT Office Visit Family [address] 293 [place] [address] Benny Waite, 293 [place] [address] 11/18/2023 8:30 AM EDT [facility] Visit [facility] [place], [facility] [address] [place] [address] Myrtle Allen, MICHELLE 132 [facility] J[place] [address] 12/03/2023 3:30 PM EDT Office Visit Interventional Pain Center, [facility] 132 [place] [address] Luann Guerra PA-C [address] [place] [address] 12/13/2023 11:20 AM EDT Office Visit Family Practice 65 [facility] 293 [place] [address] Benny Waite, 293 [place] [address] 12/21/2023 11:00 AM EDT Nurse Only Ancillary 65 [facility] 293 [place] [address] College, Nurse Annual Wellness Visit [address] [address] 01/12/2024 8:30 AM EDT [facility] 132 [facility] [place] [address] Franco Mcgregor MD [address] [place] [address] 02/15/2024 8:00 AM EDT Office Visit Cardiology, [facility] [address] Casimiro Barraza MD 132 [place] [address] Health Maintenance Due Date Last Done Comments [...] this encounter Medical Devices Implanted Type Area Business Services Vice President Device Identifier Shelf Expiration Date Model / Serial / Lot Device Watchman Flx 35mm - [id number] Implanted:Qty: 1 on 02/05/2022 by Diamond Teran IV, [place] [facility] [employer] : INTRV CARD [id number] 10/20/2024 [id number] 50 / / [id number] Cath Thermodilution 6fr - [id number] Implanted:Qty: 1 on 07/31/2022 by Franco Mcgregor MD at [facility] [employer] [id number] 04/30/2024 [id number] / / [id number] Mirtaclip G4 - [id number] Implanted:Qty: 1 on 11/16/2022 at [facility] [employer] 06/25/2023 [id number] / / [id number] Clip Delivery Sytem G4 Xtw - [id number] Implanted:Qty: 1 on 11/16/2022 at [facility] [employer] [id number] 08/10/2023 [id number] TW / / [id number] Clip Delivery Sytem G4 Xtw - [id number] Implanted:Qty: 1 on 11/16/2022 at [facility] [employer] [id number] 09/10/2023 [id number] / / [id number] documented as of this encounter Advance [...] and were consensually agreed upon. Care Teams Filler Leaf Cutter Long Relationship Specialty Start Date End Date Benny Waite DO [address] [place] [address] PCP - General Internal Medicine 04/03/21 documented as of this encounter
--- OUTSIDE RECORDS SUMMARY | 2023-12-04 10:21 | External Medical Summary | Summary of Care ---
Author Name Unknown Organization [facility] Address [address] [place] [address] Phone [phone] Care Team Providers Care Fast Food Delivery Driver Name Role Phone Benny Waite DO Primary Care Provider [phone] Encounter Details Date Type Department Care Team (Late st Contact Info) Description 10/14/2023 2:30 PM EDT Home Visit Care Coordination and Integration [address] [place], [place] [phone] Ines Castro, Community Health Logging Crew Foreman [address] [place] [address], [place] [phone] Allergies Active Allergy Reactions Criticality Noted Date [...] MVR (mitral valve repair) 11/16/2022 Atherosclerosis of elem co 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 pectoris 08/11/2022 Severe tricuspid regurgitation 08/11/2022 Gout, arthropathy 07/20/2022 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 No guns in the home. [facility] Crisis number given to pt by [facility] Behavioral health CM referral placed [...] the Comments) Remote Patient Monitoring Vendor: [facility] Device(s): Connected Scale Connected Pulse Ox Connected [...] Progress Notes * Ines Castro, Community Health Logging Crew Foreman - 10/14/2023 3:15 PM EDT Telemedicine visit: No Community Health Logging Crew Foreman (REBEKAH) documentation: CHW initiated home visit and assisted in setting up CH 04/01 monitor Ines Castro- Community Health Worker 1 Support Services/[facility] [employer] [facility] [email or web address] documented in this encounter Plan of Treatment Upcoming Encounters Date Type Department Care Team (Late st Contact Info) Description 10/15/2023 10:30 AM EDT Scheduled Telephone Family Practice [address], [place] [address] [place] [id number] College, Nurse [facility] Prac [address] [facility] [address] [place] [address] 10/18/2023 11:30 AM EDT Cardiac Studies Cardiac Studies, [facility] 132 [facility] [place] [address] 10/26/2023 11:00 AM EDT Telemedicine [facility], [facility] 132 [facility] [place] [address] Yadira Omalley CRNP 132 [facility] [place] [address] Ines Castro, Community Health Logging Crew Foreman [facility] [place] [address] 10/29/2023 8:00 AM EDT Office Visit [address] [place] [address] Benny Waite, 293 [place] [address] 11/18/2023 8:30 AM EDT [facility] Visit [facility], [facility] 132 [facility] [place] [address] Myrtle Allen, RN 132 [place] [address] 12/03/2023 3:30 PM EDT Office Visit Interventional Pain Center, [facility] 132 [facility] [place] [address] Luann Guerra PA-C 132 [facility] [address] 12/13/2023 11:20 AM EDT Office Visit [address] [place] [address] Benny Waite, 293 [place] [address] 12/21/2023 11:00 AM EDT Nurse Only Ancillary [facility] [address] [place] [address] College, Nurse Annual Wellness Visit [address] [address] 01/12/2024 8:30 AM EDT Office Visit Cardiology, [facility] 132 [place] [address] Franco Mcgregor MD [address] [place] [address] 02/15/2024 8:00 AM EDT Office Visit Cardiology, [facility] [address] [place] [address] Casimiro Barraza MD 132 [place] [address] Health Maintenance Due Date Last Done Comments [...] this encounter Medical Devices Implanted Type Area Meter Reader Chief Device Identifier Shelf Expiration Date Model / Serial / Lot Device Watchman Flx 35mm - [id number] Implanted:Qty: 1 on 02/05/2022 by Diamond Teran IV, MD at [facility] [employer] : INTRV CARD [id number] 10/20/2024 [id number] 50 / / [id number] Cath Thermodilution 6fr - [id number] Implanted:Qty: 1 on 07/31/2022 by Franco Mcgregor MD at [facility] [employer] [id number] 04/30/2024 [id number] / / [id number] Mirtaclip G4 - [id number] Implanted:Qty: 1 on 11/16/2022 at [facility] [employer] 06/25/2023 [id number] / / [id number] Clip Delivery Sytem G4 Xtw - [id number] Implanted:Qty: 1 on 11/16/2022 at [facility] [employer] [id number] 08/10/2023 [id number] TW / / [id number] Clip Delivery Sytem G4 Xtw - [id number] Implanted:Qty: 1 on 11/16/2022 at [facility] [employer] [id number] 09/10/2023 [id number] / / [id number] documented as of this encounter Advance [...] and were consensually agreed upon. Care Teams Fast Food Delivery Driver Relationship Specialty Start Date End Date Benny Waite DO [address] [facility] [place] [address] PCP - General Internal Medicine 04/03/21 documented as of this encounter
--- OUTSIDE RECORDS SUMMARY | 2023-12-04 10:21 | External Medical Summary | Summary of Care ---
Author Name Unknown Organization [facility] Address [address] [facility] [place] [address] Phone [phone] Care Team Providers Care Marine Specialist Name Role Phone Benny Waite DO Primary Care Provider [phone] Reason for Visit * Reason Onset Date Comments [facility]: Maintenance 10/19/2023 Encounter Details Date Type Department Care Team (Late st Contact Info) Description 10/19/2023 Telephone [facility], [place] [address] [place] [address] [facility], Nurse [facility] [address] [place] [address] [facility]: Maintenance Allergies Active Allergy [...] MVR (mitral valve repair) 11/16/2022 Atherosclerosis of [place] co 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 pectoris 08/11/2022 Severe tricuspid regurgitation 08/11/2022 Gout, arthropathy 07/20/2022 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 Pt requests [facility] scale, BP and pulse ox [...] encounter Miscellaneous Notes * Telephone Encounter - Domingo Bland PA-C - 10/19/2023 10:02 AM EDT [facility] Command Phone Encounter Thank you [...] for clarification. * Telephone Encounter - Agatha ReddyAMBER - 10/19/2023 8:44 AM EDT Images from [...] Moderate risk: Route to RNCM (Registered Nurse Clerical Administrative Assistant) and Advance Practitioner Route to RMC (Remote Medical Coordinator) documented in this encounter Plan of Treatment Upcoming Encounters Date Type Department Care Team (Late st Contact Info) Description 10/26/2023 11:00 AM EDT Telemedicine [facility], [facility] [address] [place] [address] Yadira Omalley CRNP [address] [place] [address] Ines Castro, Community Health Brown Stock Washer [address] [place] [address] 10/29/2023 8:00 AM EDT Office Visit Family Practice [address] [place] [address] [address] [place] [address] Benny Waite, 293 [place] [address] 11/18/2023 8:30 AM EDT Home Visit [facility], [facility] [address] [place] [address] Myrtle Allen, MICHELLE [facility] [place] [address] 12/03/2023 3:30 PM EDT Office Visit Interventional Pain Center, [facility] [address] [place] [address] Luann Guerra PA-C [address] [place] [address] 12/13/2023 11:20 AM EDT Office Visit Family Practice 65 [facility] 293 [facility] [place] [address] Benny Waite DO 293 [place] [address] 12/21/2023 11:00 AM EDT Nurse Only Ancillary 65 [facility] [address] [place] [address] College, Nurse Annual Wellness Visit [address] [place] [address] 01/12/2024 8:30 AM EDT [facility] 132 [place] [address] Franco Mcgregor MD [address] [place] [address] 02/15/2024 8:00 AM EDT Office Visit Cardiology, [facility] 132 [place] [address] Casimiro Bararza MD 132 [place] [address] Health Maintenance Due Date Last Done Comments [...] this encounter Medical Devices Implanted Type Area Primary Therapist Device Identifier Shelf Expiration Date Model / Serial / Lot Device Watchman Flx 35mm - [id number] Implanted:Qty: 1 on 02/05/2022 by Diamond Teran IV, MD at [facility] [employer] : INTRV CARD [id number] 10/20/2024 [id number] 50 / / [id number] Cath Thermodilution 6fr - [id number] Implanted:Qty: 1 on 07/31/2022 by Franco Mcgregor MD at [facility] [employer] [id number] 04/30/2024 [id number] / / [id number] Mirtaclip G4 - [id number] Implanted:Qty: 1 on 11/16/2022 at [facility] [employer] 06/25/2023 [id number] / / [id number] Clip Delivery Sytem G4 Xtw - [id number] Implanted:Qty: 1 on 11/16/2022 at [facility] [employer] [id number] 08/10/2023 [id number] TW / / [id number] Clip Delivery Sytem G4 Xtw - [id number] Implanted:Qty: 1 on 11/16/2022 at [facility] [place] [employer] [id number] 09/10/2023 [id number] TW / / [id number] documented as of this encounter Advance [...] and were consensually agreed upon. Care Teams Marine Specialist Relationship Specialty Start Date End Date Benny Waite DO [address] [place] [address] PCP - General Internal Medicine 04/03/21 documented as of this encounter
--- OUTSIDE RECORDS SUMMARY | 2023-12-04 10:21 | External Medical Summary | Summary of Care ---
Author Name Unknown Organization [facility] Address [address] [facility] [place] [address] Phone [phone] Care Team Providers Care Long Goods Drier Name Role Phone Benny Waite DO Primary Care Provider [phone] Reason for Visit * Reason Onset Date Comments [facility]: Maintenance 10/19/2023 Encounter Details Date Type Department Care Team (Late st Contact Info) Description 10/19/2023 Telephone [facility], [place] [address] [place] [address] [facility], Nurse [facility] [address] [place] [address] [facility]: Maintenance Allergies Active Allergy [...] MVR (mitral valve repair) 11/16/2022 Atherosclerosis of [place] co 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 pectoris 08/11/2022 Severe tricuspid regurgitation 08/11/2022 Gout, arthropathy 07/20/2022 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 Continues buspar. [facility] Crisis number given to pt by [facility] health CM referral placed Moderate to [...] [facility] Device(s): Connected Scale Connected Pulse Ox Connected BP Cuff Self - Management Plan Double dose of Furosemide for 3 days Exacerbation Plan BMP Additional Comments: Euvolemic today. Pt requests [facility] scale, BP and pulse ox which was [...] from the original note were not included. [facility] Remote Patient Monitoring Able to [...] Moderate risk: Route to RNCM (Registered Nurse Central Sterilization Technician) and Advance Practitioner Route to RMC (Remote Medical Coordinator) documented in this encounter Plan of Treatment Upcoming Encounters Date Type Department Care Team (Late st Contact Info) Description 10/26/2023 11:00 AM EDT Telemedicine [facility] [address] [place] [address] Yadira Omalley CRNP [address] [place] [address] Ines Castro, Community Health Quarantine Officer [facility] [place] [place] [address] 10/29/2023 8:00 AM EDT Office Visit Family Practice 65 [facility] 293 [place] [address] Benny Waite, DO 293 [place] [address] 11/18/2023 8:30 AM EDT Home Visit [facility], [facility] 132 [facility] [place] [address] Myrtle Allen, RN 132 [place] [address] 12/03/2023 3:30 PM EDT Office Visit Interventional Pain Center, [facility] 132 [facility] [place] [address] Luann Guerra PA-C 132 [place] [address] 12/13/2023 11:20 AM EDT Office Visit Family Practice 65 [facility] 293 [place] [address] Benny Waite, DO 293 [place] [address] 12/21/2023 11:00 AM EDT Nurse Only Ancillary 65 [facility] 293 [place] [address] College, Nurse Annual Wellness Visit [address] [place] [address] 01/12/2024 8:30 AM EDT Office Visit [facility], [facility] [address] Franco Mcgregor MD [address] [place] [facility] [place] [address] 02/15/2024 8:00 AM EDT Office Visit Cardiology, [facility] [address] [place] [address] Casimiro Barraza MD [address] [place] [address] Health Maintenance Due Date Last Done Comments [...] this encounter Medical Devices Implanted Type Area Order To Delivery Supervisor Device Identifier Shelf Expiration Date Model / Serial / Lot Device Watchman Flx 35mm - [id number] Implanted:Qty: 1 on 02/05/2022 by Diamond Teran IV, MD at [facility] [employer] : INTRV CARD [id number] 10/20/2024 [id number] 50 / / [id number] Cath Thermodilution 6fr - [id number] Implanted:Qty: 1 on 07/31/2022 by Franco Mcgregor MD at [facility] [employer] [id number] 04/30/2024 [id number] / / [id number] Mirtaclip G4 - [id number] Implanted:Qty: 1 on 11/16/2022 at [facility] [employer] 06/25/2023 [id number] / / [id number] Clip Delivery Sytem G4 Xtw - [id number] Implanted:Qty: 1 on 11/16/2022 at [facility] [employer] [id number] 08/10/2023 [id number] TW / / [id number] Clip Delivery Sytem G4 Xtw - [id number] Implanted:Qty: 1 on 11/16/2022 at [facility] [employer] [id number] 09/10/2023 [id number] TW / / [id number] documented as of this encounter Advance [...] and were consensually agreed upon. Care Teams Long Goods Drier Relationship Specialty Start Date End Date Benny Waite DO [address] [place] [address] PCP - General Internal Medicine 04/03/21 documented as of this encounter
--- OUTSIDE RECORDS SUMMARY | 2023-12-04 10:22 | External Medical Summary | Summary of Care ---
Author Name Unknown Organization [facility] Address [address] [place] [address] Phone [phone] Care Team Providers Care Quantitative Software Engineer Name Role Phone Benny Waite DO Primary Care Provider [phone] Reason for Referral * Evaluate & Treat - Unlimited Visits (Within 10 days (routine)) - Pending Review Specialty Diagnoses / Procedures Referred By Elaina hernandez Referred To Contact Pain Management / Pain Medicine Diagnoses Lumbar degenerative disc disease Benny Waite DO [address] [place] [address] Referral ID Status Reason Start Date Expiration Date Visits Requested Visits Authorized [id number] Pending Review Specialty Services Required 10/12/[phone] Question Answer Referral Priority Within 10 days (routine) Where should this appointment be scheduled? [place] Reason for referral? Interventional Pain Management - (Injection) What condition is the patient being referred for? Lumbar Radiculopathy What is the preferred location to have this test performed? [facility] Comments Patient Name: Nikolas Silvestre Date of : 1940 Department Phone Number: MRI or CT (if unable to have a MRI) is recommended if any of the following apply: 1. Patient has neck or back pain with radiation to extremities. A previous MRI will be accepted if symptoms unchanged since prior MRI. 2. Spinal surgery since last MRI. If yes, order a MRI with and without contrast. 3. Hx or ongoing cancer treatment. Patient will need spine x-ray (Ap/Lat) for axial neck or back pain if not done previously. Fax No. [facility] [phone] or contact medical front desk coordinator [phone] Fax No. [facility] [phone] or contact medical front desk coordinator [phone] Fax No. [facility] [phone] or contact medical front desk coordinator [phone] * Evaluate & Treat - Unlimited Visits (Within 10 days (routine)) - Pending Review Specialty Diagnoses / Procedures Referred By Elaina hernandez Referred To Contact Podiatry Diagnoses Acquired deformity of toenail Benny Waite DO [address] [place] [address] Referral ID Status Reason Start Date Expiration Date Visits Requested Visits Authorized [id number] Pending Review Specialty Services Required 10/12/[phone] Question Answer Referral Priority Within 10 days (routine) Where should this appointment be scheduled? [facility] Which condition are you referring this patient for? Nail trimming Medicare Patient? Yes Can Patient perform routine footcare without assistance? No Does patient have a chronic condition? Yes Has patient been seen in the past 6 months? No Reason for Visit * Reason Comments Short of Breath Encounter Details Date Type Department Care Team (Late st Contact Info) Description 10/12/2023 8:00 AM EDT Office Visit Family Practice [address] [place] [address], [place] [address] [place] [address] Benny Waite DO [address] [place] [address] CHF (congestive heart failure), NYHA class I, chronic, diastolic (HCC)*; DEX (obstructive sleep apnea); Permanent atrial fibrillation (HCC); Presence of Watchman left atrial appendage closure device; S/P MVR (mitral valve repair); Severe tricuspid regurgitation; Visual field loss, post-stroke; History of CVA (cerebrovascular accident); Acquired deformity of toenail; BPH with obstruction/lower urinary tract symptoms; Lumbar degenerative disc disease; Gout, arthropathy; Atherosclerosis of galena coronary artery of galena heart without angina pectoris; Shortness of breath Allergies Active Allergy Reactions Criticality Noted Date Comments Adhesive Tape 02/04/2017 Duloxetine High 07/13/2023 Other Reaction(s): confusion Levofloxacin 09/01/2019 documented as of this encounter (statuses as of 10/12/2023) Medications Medication Sig Dispensed Refills Start Date [...] as of this encounter (statuses as of 10/12/2023) Active Problems Problem Noted Date Diagnosed Date [...] Overview: Added automatically from request for surgery [id number] Last Assessment & Plan: S/p Watchman Current [...] No guns in the home. Continues buspar. [facility] Crisis number given to pt by [facility] health CM referral placed Moderate to severe mitral regurgitation 04/03/20 Lumbar [facility] [place]s): Connected Scale Connected Pulse Ox Connected BP Cuff Self - Management Plan Double dose of Furosemide for 3 days Exacerbation Plan BMP Additional Comments: Euvolemic today. Pt requests [facility] [place], BP and pulse ox which was ordered. 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 documented as of this encounter (statuses as of 10/12/2023) Resolved Problems Problem Noted Date Diagnosed Date [...] as of this encounter (statuses as of 10/12/2023) Immunizations Name Administration Dates Next Due COVID-19 mRNA, LNP-s, No Pre serve, 2-Dose Series (Moderna) 08/20/2020,07/17/2020 COVID-19 mRNA, LNP-s, No Pre serve, 2-Dose Series (Pfizer) 05/14/2021 COVID-19, LNP-s, No Preserve , Robbie-sucrose, Ages 12+ (Pfizer) 11/04/2021 COVID-19, MRNA-LNP, 23-24, P F, 30 MCG/0.3 mL, 12 YRS AND ABOVE, IM ([employer]) 04/16/2023 Covid-19, Mrna, Lnp-s, Pf, B ivalent, [...] Sign Reading Time Taken Comments Blood Pressure 122/76 10/12/2023 8:33 AM EDT Pulse 88 10/12/2023 8:55 AM EDT Temperature 36.4 C (97.6 F) 10/12/2023 8:33 AM ED T Respiratory Rate - - Oxygen Saturation 96% 10/12/2023 8:55 AM EDT Inhaled Oxygen Concentration - - Weight 99.6 kg (219 lb 8 oz) 10/12/2023 8:33 AM EDT Height - - Body Mass Index 34.12 08/25/2023 9:27 AM EDT documented in this [...] of this encounter Progress Notes * Marnie Bobo RN - 10/12/2023 11:55 AM EDT Pulse ox with rest/exercise with and without O2 Pulse ox without O2 Rest 92%, HR 71 Walk 89%, HR 91 Rest 92%, HR 88 Pulse ox with O2 at 2L Rest 94%, HR 75 Walk 93%, HR 95 Rest 96%, HR 88 * Benny Waite, - 10/12/2023 10:06 AM EDT SUBJECTIVE: Nikolas Silvestre is a 83 year old male. Chief Complaint Patient presents with Short of Breath HPI: Patient is an 83 year old male with a history of Atrial Fibrillation, Mitral Valve Repair, Diastolic CHF, Sleep Apnea, BiPAP intolerance, Lumbar DIsc DIsease, SI joint Arthritis, Internal Hemorrhoids, BPH, Gout, right occipital CVA, and Watchman Device Implant that is seen for follow up. Shortness of breath continues to worsen. Furosemide dose was increased and breathing did not improve. Weight is down and appetite is fair. He is scheduled for Echo in 12/2023. He becomes short of breath with ambulation and when he bends at the waist. No chest pain is present. His this week andappetite has decreased. Difficulty sleeping and fatigue are unchanged. He is unable to bend to trimhis toenails. Patient Active Problem List Diagnosis Code ADVANCE DIRECTIVE INFORMATION Elevated prostate specific antigen (PSA) R97.20 Macular puckering H35.379 BPH with obstruction/lower urinary tract symptoms N40.1, N13.8 CHF (congestive heart failure), NYHA class I, chronic, diastolic ([facility]) I50.32 Encounter for long-term (current) use of medications Z79.899 DEX (obstructive sleep apnea) G47.33 Moderate to severe mitral regurgitation I34.0 Lumbar degenerative disc disease M51.36 Current 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 ([facility]) F32.1 Permanent atrial fibrillation ([facility]) I48.21 Presence of Watchman left atrial appendage closure device Z95.818 Gout, arthropathy M10.9 Atherosclerosis of galena co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 pectoris I25.10 Severe tricuspid regurgitation I07.1 S/P MVR (mitral valve repair) Z98.890 Sacroiliitis, not elsewhere classified ([facility]) M46.1 Visual field loss, 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, H54.7 Rectal bleeding K62.5 History of CVA (cerebrovascular accident) Z86.73 Current Outpatient Medications Medication Sig Dispense Refill [...] 1 Tablet before bedtime. 200 Tablet 3 Meclizine HCl 12.5 MG Oral Tablet (Antivert) [...] Capsule Take 8.6 mg by mouth daily. Furosemide 20 MG Oral Tablet (Lasix) Take 1 Tablet by mouth in the morning. 100 Tablet 3 traMADol HCl 50 MG Oral Tablet (Ultram) Take 1 Tablet by mouth in the morning and 1 Tablet at noon and 1 Tablet in the evening. 90 Tablet 0 Proventil HFA 108 (90 Base) MCG/ACT Inhalation Aerosol Solution Inhale 2 Puffs by mouth 3 times a day as needed for Dyspnea, Cough or Wheezing. 6.7 g 3 No current facility-administered medications for this visit. [...] (RECTUM) 02/13/2021 diverticulosis, fair prep / [facility]; NOT AT RISK 04/04/2008 Diverticulosis CORONARY ANGIOGRAPHY W/RIGHT+LEFT CATH Bilateral 07/31/2022 CORONARY ANGIOGRAPHY W/RIGHT+LEFT CATH performed by Franco Mcgregor MD at [facility] [place] CYSTOSCOPY 10/22/2011 CYSTOURETHROSCOPY performed by LIBERTAD FITZPATRICK at [facility] CYSTOSCOPY 09/13/2012 CYSTOURETHROSCOPY performed by Eliseo Menard MD at OR [facility] [place] INJECT DX/THER SUBSTANCE INTERLAMINAR LUMBAR/SACRAL W IMAGE GUIDE 06/23/2021 INJECTION SPINE LUMBAR OR SACRAL performed by Anderson Easton DO at OR [facility] OTHER 02/13/1980 Dr. Zhang DEX surgery OTHER left hand reconstruction PERC CLOSURE TRANSCATH LEFT ATRIAL APPENDAGE W/ENDOCARDIAL IMPLANT N/A 02/05/2022 PERCUTANEOUS CLOSURE LEFT ATRIAL APPENDAGE IMPLANT performed by Diamond Teran IV, MD at [facility] [place] PSA 06/14/2004 3.42 PSA 06/14/2005 3.72 PSA 02/13/2008 5.17 REMOVAL OF PROSTATE (TURP) 10/22/2011 TRANSURETHRAL RESECTION PROSTATE ELECTROSURGICAL performed by LIBERTAD FITZPATRICK at [facility] REMOVAL OF PROSTATE (TURP) 09/13/2012 TRANSURETHRAL RESECTION PROSTATE ELECTROSURGICAL performed by Eliseo Menard MD at OR [facility] [place] REMOVE CATARACT, INSERT LENS PROSTH OU REMOVE TONSILS & ADENOIDS, UNDER 12 SACROILIAC JOINT INJECT W/GUIDANCE 11/11/2022 INJECTION SACROILIAC JOINT performed by Anderson Easton DO at OR [facility] SACROILIAC JOINT INJECT W/GUIDANCE 02/10/2023 INJECTION SACROILIAC JOINT performed by Anderson Easton DO at OR [facility] SACROILIAC JOINT INJECT W/GUIDANCE 05/26/2023 INJECTION SACROILIAC JOINT performed by Anderson Easton DO at OR [facility] TRANSCATH REPAIR MITRAL VALVE, INITIAL Bilateral 11/16/2022 TRANSCATHETER MITRAL VALVE REPAIR performed by Franco Mcgregor MD at [facility] [place] VITRECTOMY W/ REMOVE OF EPIRETINAL MEMBRANE 11/12/2008 Right eye Review of patient's allergies indicates: Allergen Reactions Duloxetine Other Reaction(s): confusion Adhesive Tape Levaquin [Levofloxacin] Review of Systems Constitutional: Positive for appetite change and fatigue. Negative for chills and fever. HENT: Negative for congestion, sore throat and trouble swallowing. Respiratory: Positive for shortness of breath. Negative for cough and wheezing. Cardiovascular: Negative for chest pain, palpitations and leg swelling. Gastrointestinal: Negative for abdominal pain, blood in stool, constipation, diarrhea, nausea and vomiting. Genitourinary: Negative for dysuria, frequency and hematuria. Musculoskeletal: Positive for back pain and gait problem. Neurological: Negative for dizziness, syncope and headaches. Psychiatric/Behavioral: Positive for dysphoric mood and sleep disturbance. Negative for confusion, decreased concentration and suicidal ideas. OBJECTIVE: BP 122/76 (BP Site: Left Arm, BP Position: Sitting, BP Cuff Size: Regular) | Pulse 88 | Temp 36.4 C (97.6 F) | Wt 99.6 kg (219 lb 8 oz) | SpO2 93% | BMI 34.12 kg/m | BSA 2.17 m Physical Exam Vitals and nursing note [...] No edema. Left lower leg: No edema. Feet: Comments: All toenails are thickened and long Neurological: Mental Status: He is alert and oriented to person, place, and time. Mental status is at baseline. Motor: No weakness. Gait: Gait normal. Psychiatric: Mood and Affect: Mood normal. Behavior: Behavior normal. Thought Content: Thought content normal. PLAN AND ASSESSMENT: CHF (congestive heart failure), NYHA class I, chronic, diastolic (HCC) (Primary) Echo scheduled Continue to follow with Cardiology Continue Furosemide DEX (obstructive sleep apnea) Patient did not tolerate BIPAP Permanent atrial fibrillation (HCC) Continue Metoprolol ER S/P Watchman Presence of Watchman left atrial appendage closure device S/P MVR (mitral valve repair) Severe tricuspid regurgitation Visual field loss, post-stroke History of CVA (cerebrovascular accident) Continue ASA Acquired deformity of toenail - PODIATRY REFERRAL OP BPH with obstruction/lower urinary tract symptoms Lumbar degenerative disc disease - PAIN MEDICINE REFERRAL OP Gout, arthropathy Continue Allopurinol Atherosclerosis of galena coronary artery of galena heart without angina pectoris Continue Metoprolol and ASA Shortness of breath - PULSE OX W/ REST/EXERCISE, MULTIPLE (OP) Follow-up: Return in about 2 weeks (around 10/26/2023), or if symptoms worsen or fail to improve. | Check-out note: See if Echo can be moved up. Schedule Podiatry. Benny Waite DO 10:06 AM 10/12/2023 documented in this encounter Nursing Notes * Marnie Boob RN - 10/12/2023 8:27 AM EDT Return visit Still having some SOB with exertion. PUuse ox 89-93% ? fungal infection-more so on right great toe, but some on left great toe. documented in this encounter Plan of Treatment Upcoming Encounters Date Type Department Care Team (Late st Contact Info) Description 10/13/2023 10:00 AM EDT Scheduled Telephone Family Practice 65 [facility] [address] [place] [id number] [place], Nurse Fam Prac [address] [address] 10/14/2023 8:30 AM EDT Home Visit [facility] [address] [facility] [place] [address] Myrtle Allen RN 132 [place] [address] 10/15/2023 10:30 AM EDT Scheduled Telephone Family Practice 65 [facility] 293 [facility] [place] [address] Mamers, Nurse Fam Prac [address] [address] 10/18/2023 11:30 AM EDT Cardiac Studies Cardiac Studies, [facility] [address] [facility] [place] [address] 10/26/2023 11:00 AM EDT Telemedicine [facility] [address] [facility] [place] [address] Yadira Omalley CRNP 132 [facility] [place] [address] Ines Castro, Community Health Guardian Ad Litem [address] [place] [address] 10/29/2023 8:00 AM EDT Office Visit Family Practice 65 [facility] 293 [facility] [place] [address] Benny Waite, DO [address] [place] [address] 12/03/2023 3:30 PM EDT Office Visit [facility], [facility] [address] [facility] [place] [address] Luann Guerra PA-C [address] [place] [address] 12/13/2023 11:20 AM EDT Office Visit Family Practice 65 [facility] 293 [facility] [place] [address] Benny Waite, DO [address] [place] [address] 12/21/2023 11:00 AM EDT Nurse Only Ancillary [address] [place] [address] College, Nurse Annual Wellness Visit [address] [place] [address] 01/12/2024 8:30 AM EDT Office Visit Cardiology, [facility] [address] [facility] [place] [address] Franco Mcgregor MD [address] [place] [address] 02/15/2024 8:00 AM EDT Office Visit Cardiology, [facility] 132 [facility] [place] [address] Casimiro Barraza MD 132 [facility] [place] [address] Scheduled Orders Name Type Priority Associated Diagnoses Orde r Schedule PULSE OX W/ REST/EXERCISE, MULTIPLE (OP) Procedures Routine Shortness of breath Ordered: 10/12/2023 Scheduled Referrals Name Type Priority Associated Diagnoses Orde r Schedule PODIATRY REFERRAL OP Referral Within 10 days (routine) Acquired deformity of toenail Ordered: 10/12/2023 PAIN MEDICINE REFERRAL OP Referral Within 10 days (routine) Lumbar degenerative disc disease Ordered: 10/12/2023 Health Maintenance Due Date Last Done Comments [...] encounter Medical Devices Implanted Type Area Senior Restaurant Manager Device Identifier Shelf Expiration Date Model / Serial / Lot Device Watchman Flx 35mm - [id number] Implanted:Qty: 1 on 02/05/2022 by Diamond Teran IV, MD at [facility] [place] [employer] : INTRV CARD [id number] 10/20/2024 [id number] / / [id number] Cath Thermodilution 6fr - [id number] Implanted:Qty: 1 on 07/31/2022 by Franco Mcgregor MD at [facility] [place] [employer] [id number] 04/30/2024 [id number] / / [id number] Mirtaclip G4 - [id number] Implanted:Qty: 1 on 11/16/2022 at [facility] [place] [email or web address] 06/25/2023 [id number] / / [id number] Clip Delivery Sytem G4 Xtw - [id number] Implanted:Qty: 1 on 11/16/2022 at [facility] [place] [email or web address] [id number] 08/10/2023 [id number] / / [id number] Clip Delivery Sytem G4 Xtw - [id number] Implanted:Qty: 1 on 11/16/2022 at [facility] [place] [email or web address] [id number] 09/10/2023 [id number] / / [id number] documented as of this encounter Visit Diagnoses Diagnosis CHF (congestive heart failure), NYHA class I, chronic, diastolic (HCC)- Primary DEX (obstructive sleep apnea) Obstructive sleep apnea (adult) (pediatric) Permanent atrial fibrillation (HCC) Atrial fibrillation Presence of Watchman left atrial appendage closure device S/P MVR (mitral valve repair) Other postprocedural status Severe tricuspid regurgitation Diseases of tricuspid valve Visual field loss, post-stroke Disturbances of vision, late effect of cerebrovascular disease History of CVA (cerebrovascular accident) Transient ischemic attack (TIA), and cerebral infarction without residual deficits Acquired deformity of toenail Unspecified disease of nail BPH with obstruction/lower urinary tract symptoms Hypertrophy of prostate with urinary obstruction and other lower urinary tract symptoms (LUTS) Lumbar degenerative disc disease Degeneration of lumbar or lumbosacral intervertebral disc Gout, arthropathy Gouty arthropathy, unspecified Atherosclerosis of galena coronary artery of galena heart without angina pectoris Shortness of breath documented in this encounter Advance Directives Latest [...] and were consensually agreed upon. Care Teams Quantitative Software Engineer Relationship Specialty Start Date End Date Benny Waite DO [address] [place] [address] PCP - General Internal Medicine 04/03/21 documented as of this encounter
--- OUTSIDE RECORDS SUMMARY | 2023-12-04 10:22 | External Medical Summary | Summary of Care ---
Author Name Unknown Organization [facility] [address] [facility] [address] Phone [phone] Care Team Providers Care Mail Technician Name Role Phone Benny Waite DO Primary Care Provider [phone] Reason for Visit * Reason Onset Date Comments Information 10/13/202310/12 Encounter Details Date Type Department Care Team (Late st Contact Info) Description 10/13/2023 10:00 AM EDT Scheduled Telephone Family Practice 65 [facility] 293 [place] [phone] College, Nurse [facility] Prac [address] [address] Arrived Allergies Active Allergy Reactions Criticality Noted Date Comments Adhesive Tape 02/04/2017 Duloxetine High 07/13/2023 Other Reaction(s): confusion Levofloxacin 09/01/2019 documented as of this encounter (statuses as of 10/13/2023) Medications Medication Sig Dispensed Refills Start Date [...] as of this encounter (statuses as of 10/13/2023) Active Problems Problem Noted Date Diagnosed Date [...] Overview: Added automatically from request for surgery [id number] Last Assessment & Plan: S/p Watchman Current [...] No guns in the home. Continues buspar. [facility] Crisis number given to pt by [facility] Behavioral health CM referral placed Moderate to [...] the Comments) Remote Patient Monitoring Vendor: [facility] Device(s): Connected Scale Connected Pulse Ox Connected BP Cuff Self - Management Plan Double dose of Furosemide for 3 days Exacerbation Plan BMP Additional Comments: Euvolemic today. Pt requests [facility] scale, BP and pulse ox which was ordered. 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 documented as of this encounter (statuses as of 10/13/2023) Resolved Problems Problem Noted Date Diagnosed Date [...] as of this encounter (statuses as of 10/13/2023) Immunizations Name Administration Dates Next Due COVID-19 mRNA, LNP-s, No Pre serve, 2-Dose Series (Moderna) 08/20/2020,07/17/2020 COVID-19 mRNA, LNP-s, No Pre serve, 2-Dose Series (The Kitchen Hotline) 05/14/2021 COVID-19, LNP-s, No Preserve , Robbie-sucrose, [...] Telephone Encounter - Marnie Baker LPN - 10/13/2023 3:43 PM EDT Spoke to Nikolas, he is doing ok. Discussed appointments. Thank you * Telephone Encounter - Marnie Baker LPN - 10/13/2023 2:25 PM EDT Called, left message for patient to return call. Wanting to check status of Nikolas. Thank you documented in this encounter Plan of Treatment Upcoming Encounters Date Type Department Care Team (Late st Contact Info) Description 10/14/2023 8:30 AM EDT [facility] 132 [place] [address] Myrtle Allen RN 132 [place] [address] 10/15/2023 10:30 AM EDT Scheduled Telephone Family Practice [address] [place] [address] 293 [place] [address] Sch[place], Nurse [facility] Prac [address] [place] [address] 10/18/2023 11:30 AM EDT Cardiac Studies Cardiac Studies, [facility] 132 [place] [address] 10/26/2023 11:00 AM EDT Telemedicine [facility], [facility] 132 [employer] [place] [address] Yadira Omalley CRNP 132 [place] [address] Ines Castro, Community Health Production Planning Supervisor [address] [place] [address] 10/29/2023 8:00 AM EDT Office Visit Family Practice [address] [place] [address] 293 [place] [address] Benny Waite DO 293 [place] [address] 12/03/2023 3:30 PM EDT Office Visit Interventional Pain Center, [facility] 132 [employer] [place] [address] Luann Guerra PA-C 132 [facility] [address] 12/13/2023 11:20 AM EDT Office Visit Family Practice 65 [facility] 293 [place] [address] Benny Waite DO 293 [place] [address] 12/21/2023 11:00 AM EDT Nurse Only Ancillary 65 [facility] 293 [place] [address] College, Nurse Annual Wellness Visit [address] [address] 01/12/2024 8:30 AM EDT Office Visit Cardiology, [facility] 132 [employer] [address] Franco Mcgregor MD [address] [place] [address] 02/15/2024 8:00 AM EDT Office Visit Cardiology, [facility] 132 [employer] [place] [address] Casimiro Barraza MD 132 [place] [address] Health Maintenance Due Date Last Done Comments [...] this encounter Medical Devices Implanted Type Area Chief Jailer Device Identifier Shelf Expiration Date Model / Serial / Lot Device Watchman Flx 35mm - [id number] Implanted:Qty: 1 on 02/05/2022 by Diamond Teran IV, MD at [facility] [employer] : INTRV CARD [id number] 10/20/2024 [id number] 50 / / [id number] Cath Thermodilution 6fr - [id number] Implanted:Qty: 1 on 07/31/2022 by Franco Mcgregor MD at [facility] [employer] [id number] 04/30/2024 [id number] / / [id number] Mirtaclip G4 - [id number] Implanted:Qty: 1 on 11/16/2022 at [facility] [employer] 06/25/2023 [id number] / / [id number] Clip Delivery Sytem G4 Xtw - [id number] Implanted:Qty: 1 on 11/16/2022 at [facility] [employer] [id number] 08/10/2023 [id number] TW / / [id number] Clip Delivery Sytem G4 Xtw - [id number] Implanted:Qty: 1 on 11/16/2022 at [facility] [employer] [id number] 09/10/2023 [id number] TW / / [id number] documented as of this encounter Advance [...] were consensually agreed upon. Care Teams Mail Technician Relationship Specialty Start Date End Date Benny Waite DO 293 [place] [address] PCP - General Internal Medicine 04/03/21 documented as of this encounter
--- OUTSIDE RECORDS SUMMARY | 2023-12-04 10:22 | External Medical Summary | Summary of Care ---
Author Name Unknown Organization [facility] Address [address] [facility] [place] [address] Phone [phone] Care Team Providers Care Refrigeration Insulator Name Role Phone Benny Waite DO Primary Care Provider [phone] Reason for Visit * Reason Onset Date Comments [facility]: Maintenance 10/14/2023 Encounter Details Date Type Department Care Team (Late st Contact Info) Description 10/14/2023 Telephone [facility], [place] [facility] [address] [place] [address] [facility], Nurse [facility] [address] [place] [address] [facility]: Maintenance Allergies Active Allergy [...] valve repair) 11/16/2022 Atherosclerosis of [place] co 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 pectoris 08/11/2022 Severe tricuspid regurgitation 08/11/2022 Gout, arthropathy 07/20/2022 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 Continues buspar. [facility] Crisis number given to pt by [facility] health CM referral placed Moderate to [...] Regimen: Beta Josemanuel Therapy: Metoprolol Succinate (ER) CLOE Inhibitor/ARB Therapy: Lisinopril Diuretic therapy: Lasix SGLT2 Inhibitor: No Current SGLT2 (Describe in the Comments) Remote Patient Monitoring Vendor: [facility] Device(s): Connected Scale Connected Pulse Ox Connected BP Cuff Self - Management Plan Double dose of Furosemide for 3 days Exacerbation Plan BMP Additional Comments: Euvolemic today. Pt requests [facility] scale, BP and [...] Telephone Encounter - Agatha Reddy LPN - 10/14/2023 7:56 AM EDT Images from the original note were not included. ONOFRE sanchez Has appt with RNCM today documented in this encounter Plan of Treatment Upcoming Encounters Date Type Department Care Team (Late st Contact Info) Description 10/14/2023 8:30 AM EDT [facility] [address] [place] [address] Myrtle Allen RN 132 [place] [address] 10/15/2023 10:30 AM EDT Scheduled Telephone Family Practice [address] [place] [address] [place] [phone] College, Nurse [facility] Prac [address] [place] [address], [place] [address] 10/18/2023 11:30 AM EDT Cardiac Studies Cardiac Studies, [facility] 132 [place] [address] 10/26/2023 11:00 AM EDT [facility]medicine [facility], [facility] 132 [place] [address] Yadira Omalley CRNP 132 [place] [address] Ines Castro, Community Health Jar Capper [address] [place] [address] 10/29/2023 8:00 AM EDT Office Visit Family Practice [address] [place] [address], [place] [phone] Benny Waite, 293 [place] [address] 12/03/2023 3:30 PM EDT Office Visit Interventional Pain Center, [facility] 132 [facility] [address] Luann Guerra PA-C 132 [place] [address] 12/13/2023 11:20 AM EDT Office Visit Family Practice [address] [place] [address] [place] [phone] Benny Waite, 293 [place] [address] 12/21/2023 11:00 AM EDT Nurse Only Ancillary [facility] 293 [place] [address] College, Nurse Annual Wellness Visit 65 [facility] 293 [place] [address] 01/12/2024 8:30 AM EDT Office Visit Cardiology, [facility] 132 [place] [address] Franco Mcgregor MD [address] [place] [address] 02/15/2024 8:00 AM EDT Office Visit Cardiology, [facility] 132 [place] [address] Casimiro Barraza MD 132 [place] [address] Health Maintenance Due Date Last Done Comments [...] this encounter Medical Devices Implanted Type Area Press Cutter Device Identifier Shelf Expiration Date Model / Serial / Lot Device Watchman Flx 35mm - [id number] Implanted:Qty: 1 on 02/05/2022 by Diamond Teran IV, MD at [facility] [employer] : INTRV CARD [id number] 10/20/2024 [id number] 50 / / [id number] Cath Thermodilution 6fr - [id number] Implanted:Qty: 1 on 07/31/2022 by Franco Mcgregor MD at [facility] [employer] [id number] 04/30/2024 [id number] / / [id number] Mirtaclip G4 - [id number] Implanted:Qty: 1 on 11/16/2022 at [facility] [employer] 06/25/2023 [id number] / / [id number] Clip Delivery Sytem G4 Xtw - [id number] Implanted:Qty: 1 on 11/16/2022 at [facility] [employer] [id number] 08/10/2023 [id number] TW / / [id number] Clip Delivery Sytem G4 Xtw - [id number] Implanted:Qty: 1 on 11/16/2022 at [facility] [employer] [id number] 09/10/2023 [id number] TW / / [id number] documented as of this encounter Advance [...] and were consensually agreed upon. Care Teams Refrigeration Insulator Relationship Specialty Start Date End Date Benny Waite DO 293 [place] [address] PCP - General Internal Medicine 04/03/21 documented as of this encounter
--- OUTSIDE RECORDS SUMMARY | 2023-12-04 10:22 | External Medical Summary | Summary of Care ---
Author Name Unknown Organization [facility] Address [address] [facility] [place] [address] Phone [phone] Care Team Providers Care Distillation Operator Helper Name Role Phone Benny Waite DO Primary Care Provider [phone] Reason for Visit * Reason Onset Date Comments [facility]: Maintenance 10/12/2023 Encounter Details Date Type Department Care Team (Late st Contact Info) Description 10/12/2023 Telephone [facility], [facility] [address] [place] [address] Ines Coates, RN [address] [place] [address] [facility]: Maintenance Allergies Active Allergy [...] Overview: Added automatically from request for surgery [id number] Last Assessment & Plan: S/p Watchman Current [...] No guns in the home. Continues buspar. [facility] Crisis number given to pt by [facility] Behavioral health CM referral placed Moderate to [...] in the Comments) Remote Patient Monitoring Vendor: [facility] Device(s): Connected Scale Connected Pulse Ox Connected BP Cuff Self - Management Plan Double dose of Furosemide for 3 days Exacerbation Plan BMP Additional Comments: Euvolemic today. Pt requests [facility] scale, BP and pulse ox [...] Telephone Encounter - Ines Coates RN - 10/12/2023 12:23 PM EDT Incoming call from patient to confirm his upcoming RNCM HV scheduled for 10/14/23. Reports he was to see PCP today. Did not qualify for oxygen. Pulse ox at home currently 96%. Ongoing SOB, but no increase in swelling or abdominal bloating. Per PCP notes, lungs clear. States he would like RNCM to help him set up new [facility] scale when she comes this week. States currentweight is down from normal. Reinforced to call [facility] if having increased sob, spo2 less than 90%, increased swelling, abdominal bloating. Pt verbalizes understanding. Wt Readings from Last 8 Encounters: 10/12/23 99.6 kg (219 lb 8 oz) 09/28/23 99.9 kg (220 lb 3.2 oz) 08/25/23 101.5 kg (223 lb 11.2 oz) 08/20/23 94.3 kg (208 lb) 08/12/23 100.1 kg (220 lb 11.2 oz) 07/29/23 101.6 kg (224 lb) 07/21/23 100.1 kg (220 lb 9.6 oz) 07/05/23 101.2 kg (223 lb) documented in this encounter Plan of Treatment Upcoming Encounters Date Type Department Care Team (Late st Contact Info) Description 10/13/2023 10:00 AM EDT Scheduled Telephone Family Practice [address] [place] [address], [place] [address] [place], Nurse Jesus Prac [address] [place] [address] 10/14/2023 8:30 AM EDT [facility] [place], [facility] [address] [place] [address] Myrtle Allen RN 132 [facility] [place] [address] 10/15/2023 10:30 AM EDT Scheduled Telephone Family Practice 65 [facility] 293 [facility], [place] [address] [place], Nurse Fam Prac [address] [place] [address] 10/18/2023 11:30 AM EDT Cardiac Studies Cardiac Studies, [facility] [address] [place] [address] 10/26/2023 11:00 AM EDT Telemedicine [facility], [facility] [address] [place] [address] Yadira Omalley CRNP [address] [place] [address] Ines Castro, Community Health Dean For Student Affairs [address] [place] [address] 10/29/2023 8:00 AM EDT Office Visit Family Practice [address] [phone] Benny Waite, DO 293 [place] [address] 12/03/2023 3:30 PM EDT Office Visit Interventional Pain Center, [facility] 132 [facility] [place] [address] Luann Guerra PA-C 132 [facility] [address] 12/13/2023 11:20 AM EDT Office Visit Family Practice [address] [place] [address], [place] [address] Benny Waite, 293 [place] [address] 12/21/2023 11:00 AM EDT Nurse Only Ancillary [address] [place] [address] College, Nurse Annual Wellness Visit [address] [place] [address] 01/12/2024 8:30 AM EDT Office Visit Cardiology, [facility] 132 [facility] [place] [address] Franco Mcgregor MD [address] [place] [address] 02/15/2024 8:00 AM EDT Office Visit Cardiology, [facility] 132 [facility] [place] [address] Casimiro Barraza MD [address] [place] [address] Health Maintenance Due Date Last Done Comments [...] this encounter Medical Devices Implanted Type Area Doll Wig Maker Device Identifier Shelf Expiration Date Model / Serial / Lot Device Watchman Flx 35mm - [id number] Implanted:Qty: 1 on 02/05/2022 by Diamond Teran IV, MD at [facility] [employer] : INTRV CARD [id number] 10/20/2024 [id number] 50 / / [id number] Cath Thermodilution 6fr - [id number] Implanted:Qty: 1 on 07/31/2022 by Franco Mcgregor MD at [facility] [employer] [id number] 04/30/2024 [id number] / / [id number] Mirtaclip G4 - [id number] Implanted:Qty: 1 on 11/16/2022 at [facility] [employer] 06/25/2023 [id number] / / [id number] Clip Delivery Sytem G4 Xtw - [id number] Implanted:Qty: 1 on 11/16/2022 at [facility] [employer] [id number] 08/10/2023 [id number] TW / / [id number] Clip Delivery Sytem G4 Xtw - [id number] Implanted:Qty: 1 on 11/16/2022 at [facility] [employer] [id number] 09/10/2023 [id number] TW / / [id number] documented as of this encounter Advance [...] and were consensually agreed upon. Care Teams Distillation Operator Helper Relationship Specialty Start Date End Date Benny Waite DO 293 [facility] [place] [address] PCP - General Internal Medicine 04/03/21 documented as of this encounter
--- OUTSIDE RECORDS SUMMARY | 2023-12-04 10:22 | External Medical Summary | Summary of Care ---
Author Name Unknown Organization [facility] Address [address] [facility] [place] [address] Phone [phone] Care Team Providers Care Books Binder Name Role Phone Benny Waite DO Primary Care Provider [phone] Reason for Visit * Reason Onset Date Comments [facility]: Maintenance 10/13/2023 Encounter Details Date Type Department Care Team (Late st Contact Info) Description 10/13/2023 Telephone [facility], [facility] [address] [facility] [place] [address] [facility], Nurse [facility] 1000 [address] [facility] J[place] [id number] [facility]: Maintenance Allergies Active Allergy [...] MVR (mitral valve repair) 11/16/2022 Atherosclerosis of [place] co 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 pectoris 08/11/2022 Severe tricuspid regurgitation 08/11/2022 Gout, arthropathy 07/20/2022 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 02/05/2022 Permanent atrial fibrillation 12/22/2021 Overview: Added automatically from request for surgery [id number] Last Assessment & Plan: S/p Watchman Current [...] System Crisis number given to pt by [facility] Behavioral health CM referral placed Moderate [...] the Comments) Remote Patient Monitoring Vendor: [facility] Device(s): Connected Scale Connected Pulse Ox Connected BP Cuff Self - Management Plan Double dose of Furosemide for 3 days Exacerbation Plan BMP Additional Comments: Euvolemic today. Pt requests [facility] scale, BP and pulse [...] mRNA, LNP-s, No Pre serve, 2-Dose Series (Usbek & Rica) 05/14/2021 COVID-19, LNP-s, No Preserve , Robbie-sucrose, [...] Telephone Encounter - Gayla Quinones LPN - 10/13/2023 10:24 AM EDT Images from the original note were not included. [facility] Remote Patient Monitoring Unable to contact patient: Trigger type: Abnormal reading(s): Device(s) Triggered: [facility] (Advanced Monitored Caregiving): Pulse Oximeter: Trigger priority per [facility]: Patient new to [facility] monitoring per [facility] has FP appointment today documented in this encounter Plan of Treatment Upcoming Encounters Date Type Department Care Team (Late st Contact Info) Description 10/14/2023 8:30 AM EDT Home Visit [facility] [place], [address] [place] [address] Myrtle Allen, RN 132 [facility] [place] [address] 10/15/2023 10:30 AM EDT Scheduled Telephone Family Practice [address] [place] [address] 293 [place] [phone] College, Nurse [facility] Prac [address] [place] [address] 10/18/2023 11:30 AM EDT Cardiac Studies Cardiac Studies, [facility] 132 [facility] [place] [address] 10/26/2023 11:00 AM EDT [facility]icine [facility], [facility] 132 [facility] [place] [address] Yadira Omalley CRNP 132 [place] [address] Ines Castro, Community Health Dielectric Embossing Machine Operator [address] [place] [address] 10/29/2023 8:00 AM EDT Office Visit Family Practice [address] [place] [phone] Benny Waite, 293 [place] [address] 12/03/2023 3:30 PM EDT Office Visit Interventional Pain Center, [facility] 132 [facility] [place] [address] Luann Guerra PA-C [facility] [place] [address] 12/13/2023 11:20 AM EDT Office Visit Family Practice [address] [place] [address], [place] [phone] Benny Waite, 293 [place] [address] 12/21/2023 11:00 AM EDT Nurse Only Ancillary [address], [place] 293 [place] [address] College, Nurse Annual Wellness Visit [address] [address] 01/12/2024 8:30 AM EDT Office Visit Cardiology, [facility] 132 [place] [address] Franco Mcgregor MD [address] [place] [address] 02/15/2024 8:00 AM EDT Office Visit Cardiology, [facility] 132 [place] [address] Casimiro Barraza MD 132 [place] [address] Health Maintenance Due Date Last Done Comments [...] this encounter Medical Devices Implanted Type Area Marble Machine Tender Device Identifier Shelf Expiration Date Model / Serial / Lot Device Watchman Flx 35mm - [id number] Implanted:Qty: 1 on 02/05/2022 by Diamond Teran IV, MD at [facility] [employer] : INTRV CARD [id number] 10/20/2024 [id number] / / [id number] Cath Thermodilution 6fr - [id number] Implanted:Qty: 1 on 07/31/2022 by Franco Mcgregor MD at [facility] [employer] [id number] 04/30/2024 [id number] / / [id number] Mirtaclip G4 - [id number] Implanted:Qty: 1 on 11/16/2022 at [facility] [employer] 06/25/2023 [id number] / / [id number] Clip Delivery Sytem G4 Xtw - [id number] Implanted:Qty: 1 on 11/16/2022 at [facility] [employer] [id number] 08/10/2023 [id number] TW / / [id number] Clip Delivery Sytem G4 Xtw - [id number] Implanted:Qty: 1 on 11/16/2022 at [facility] [employer] [id number] 09/10/2023 [id number] / / [id number] documented as of this encounter Advance [...] and were consensually agreed upon. Care Teams Books Binder Relationship Specialty Start Date End Date Benny Waite DO [address] [place] [address] PCP - General Internal Medicine 04/03/21 documented as of this encounter
--- OUTSIDE RECORDS SUMMARY | 2023-12-04 10:22 | External Medical Summary | Summary of Care ---
Author Name Unknown Organization [facility] Address [address] [facility] [place] [address] Phone [phone] Care Team Providers Care Interactive Art Director Name Role Phone Benny Waite DO Primary Care Provider [phone] Reason for Visit * Reason Onset Date Comments [facility]: Maintenance 10/14/2023 Encounter Details Date Type Department Care Team (Late st Contact Info) Description 10/14/2023 Telephone [facility], [place] [address] [place] [address] [facility], Nurse [facility] [address] [place] [address] [facility]: Maintenance Allergies Active Allergy [...] MVR (mitral valve repair) 11/16/2022 Atherosclerosis of tling[place] & [place] co 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 pectoris 08/11/2022 Severe tricuspid regurgitation 08/11/2022 Gout, arthropathy 07/20/2022 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 Continues buspar. [facility] Crisis number given to pt by [facility] health CM referral placed Moderate [...] BMP Additional Comments: Euvolemic today. Pt requests [facility] scale, BP and [...] [facility] [address] [place] [address] Myrtle Allen RN 132 [place] [address] 10/15/2023 10:30 AM EDT Scheduled Telephone Family Practice [address] [place] [address] 293 [facility] [place] [phone] College, Nurse [facility] Prac [address] [place] [address], [place] [address] 10/18/2023 11:30 AM EDT Cardiac Studies Cardiac Studies, [facility] 132 [place] [address] 10/26/2023 11:00 AM EDT Telemedicine [facility], [facility] 132 [place] [address] Yadira Omalley CRNP 132 [place] [address] Ines Castro, Community Health [employer] [address] [place] [address] 10/29/2023 8:00 AM EDT Office Visit Family Practice [address] [place] [address], [place] [phone] Benny Waite, 293 [place] [address] 12/03/2023 3:30 PM EDT Office Visit [facility], [facility] [address] [facility] [address] Luann Guerra PA-C 132 [place] [address] 12/13/2023 11:20 AM EDT Office Visit Family Practice [address] [place] [address] 293 [place] [address] Benny Waite, 293 [place] [address] 12/21/2023 11:00 AM EDT Nurse Only Ancillary 65 [facility] 293 [place] [address] College, Nurse Annual Wellness Visit [address] [facility] 293 [place] [address] 01/12/2024 8:30 AM EDT Office Visit Cardiology, [facility] 132 [place] [address] Franco Mcgregor MD [address] [place] [address] 02/15/2024 8:00 AM EDT Office Visit Cardiology, [facility] 132 [place] [address] Casimiro Barraza MD 132 [place] [address] Health Maintenance Due Date Last Done Comments [...] this encounter Medical Devices Implanted Type Area Patrol Man Device Identifier Shelf Expiration Date Model / Serial / Lot Device Watchman Flx 35mm - [id number] Implanted:Qty: 1 on 02/05/2022 by Diamond Teran IV, MD at [facility] [employer] : INTRV CARD [id number] 10/20/2024 [id number] 50 / / [id number] Cath Thermodilution 6fr - [id number] Implanted:Qty: 1 on 07/31/2022 by Franco Mcgregor MD at [facility] [employer] [id number] 04/30/2024 [id number] / / [id number] Mirtaclip G4 - [id number] Implanted:Qty: 1 on 11/16/2022 at [facility] [employer] 06/25/2023 [id number] / / [id number] Clip Delivery Sytem G4 Xtw - [id number] Implanted:Qty: 1 on 11/16/2022 at [facility] [employer] [id number] 08/10/2023 [id number] / / [id number] Clip Delivery Sytem G4 Xtw - [id number] Implanted:Qty: 1 on 11/16/2022 at [facility] [employer] [id number] 09/10/2023 [id number] / / [id number] documented as of this encounter Advance [...] and were consensually agreed upon. Care Teams Interactive Art Director Relationship Specialty Start Date End Date Benny Waite DO [address] [place] [address] PCP - General Internal Medicine 04/03/21 documented as of this encounter
--- OUTSIDE RECORDS SUMMARY | 2023-12-04 10:23 | External Medical Summary | Summary of Care ---
Author Name Unknown Organization [facility] Address [address] [place] [facility] [place] [address] Phone [phone] Care Team Providers Care Performance Instructor Name Role Phone Benny Waite DO Primary Care Provider [phone] Encounter Details Date Type Department Care Team (Late st Contact Info) Description 10/04/2023 Telephone Family Practice 65 [facility] 293 [place] [address] Benny Waite DO 293 [place] [address] Allergies Active Allergy Reactions Criticality Noted Date Comments Adhesive Tape 02/04/2017 Duloxetine High 07/13/2023 Other Reaction(s): confusion Levofloxacin 09/01/2019 documented as of this encounter (statuses as of 10/05/2023) Medications Medication Sig Dispensed Refills Start Date [...] as of this encounter (statuses as of 10/05/2023) Active Problems Problem Noted Date Diagnosed Date [...] MVR (mitral valve repair) 11/16/2022 Atherosclerosis of [place] co 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 pectoris 08/11/2022 Severe tricuspid regurgitation 08/11/2022 Gout, arthropathy 07/20/2022 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 Continues buspar. [facility] Crisis number given to pt by [facility] Behavioral health CM referral placed Moderate [...] as of this encounter (statuses as of 10/05/2023) Resolved Problems Problem Noted Date Diagnosed Date [...] as of this encounter (statuses as of 10/05/2023) Immunizations Name Administration Dates Next Due COVID-19 [...] Answer Date Recorded PHQ Adult Total Score 18 09/28/2023 Hunger Vital Sign Answer Date Recorded Within [...] Telephone Encounter - Benny Waite DO - 10/05/2023 9:16 AM EDT Noted. * Telephone Encounter - Marnie Baker LPN - 10/04/2023 1:40 PM EDT Patient called, states that he occasionally gets problems with his vision. Had this before, had work up with eye doc was negative. Reviewed appt dates and times, confirmed. Appt on 10/08/2023 Thank you documented in this encounter Plan of Treatment Upcoming Encounters Date Type Department Care Team (Late st Contact Info) Description 10/06/2023 2:20 PM EDT Office Visit Otolaryngology [facility] 132 [facility] [place] [address] George Ferrer PA-C 132 [facility] [place] [address] 10/08/2023 8:20 AM EDT Office Visit Family Practice 65 [facility] 293 [place] [address] Benny Waite, DO 293 [facility] [place] [address] 10/14/2023 8:30 AM EDT [facility] Visit [facility], [facility] 132 [place] [address] Myrtle Allen RN 132 [place] [address] 10/26/2023 11:00 AM EDT Telemedicine [facility], [facility] 132 [place] [address] Yadira Omalley CRNP 132 [place] [address] Ines Castro, Community Health Transportation Economics Teacher [address] [place] [address] 12/13/2023 11:20 AM EDT Office Visit Family Practice 65 [facility] 293 [place] [address] Benny Waite, 293 [facility] [place] [address] 12/21/2023 11:00 AM EDT Nurse Only Ancillary 65 [facility] 293 [facility] [place] [facility], [place] [address] College, Nurse Annual Wellness Visit [address] [facility], [place] [address] 01/12/2024 7:15 AM EDT Cardiac Studies Cardiac Studies, [facility] 132 [facility] [address] 01/12/2024 8:30 AM EDT Office Visit Cardiology, [facility] 132 [facility] [place] [address] Franco Mcgregor MD [address] [facility] [place] [address] Health Maintenance Due Date Last Done Comments Depression, Most Recent Score >= 10 (will fire each visit until score < 10) 09/29/2023 09/28/2023, 09/28/2023 DTaP,Tdap,and Td Vaccines (2 - Td or [...] this encounter Medical Devices Implanted Type Area Program Lead Device Identifier Shelf Expiration Date Model / Serial / Lot Device Watchman Flx 35mm - [id number] Implanted:Qty: 1 on 02/05/2022 by Diamond Teran IV, MD at [facility] [employer] : INTRV CARD [id number] 10/20/2024 [id number] 50 / / [id number] Cath Thermodilution 6fr - [id number] Implanted:Qty: 1 on 07/31/2022 by Franco Mcgregor MD at [facility] [employer] [id number] 04/30/2024 [id number] / / [id number] Mirtaclip G4 - [id number] Implanted:Qty: 1 on 11/16/2022 at [facility] [employer] 06/25/2023 [id number] / / [id number] Clip Delivery Sytem G4 Xtw - [id number] Implanted:Qty: 1 on 11/16/2022 at [facility] [employer] [id number] 08/10/2023 [id number] TW / / [id number] Clip Delivery Sytem G4 Xtw - [id number] Implanted:Qty: 1 on 11/16/2022 at [facility] [employer] [id number] 09/10/2023 [id number] TW / / [id number] documented as of this encounter Advance [...] and were consensually agreed upon. Care Teams Performance Instructor Relationship Specialty Start Date End Date Benny Waite DO [address] [place] [address] PCP - General Internal Medicine 04/03/21 documented as of this encounter
--- OUTSIDE RECORDS SUMMARY | 2023-12-04 10:23 | External Medical Summary ---
Author Name Unknown Address Unknown Organization K01:[facility] [facility] [place] [address] Laboratory Report Ordering Provider Test Date Status NIKOS MISHRA 09/28/2023 09:33:01 Final Exclude Heart Failure: <300 pg/mL
Diagnose Heart Failure:
Age <50 yr: >450 pg/mL
50-75 yr: >900 pg/mL
>75 yr: >1800 pg/mL
GFR is 30-59 mL/min: >1200 pg/mL or Age- adjusted values
GFR <30 mL/min: do not use, not reliable

Prognostic threshold: 1000 pg/mL Observation Date Value Abnormality Reference (Units ) Status BNP, Pro-hormone 09/28/2023 09:33:01 896 Above high no rmal <300 (pg/mL) Final Performing Location [facility] [place] [facility] [place] [address]
--- OUTSIDE RECORDS SUMMARY | 2023-12-04 10:23 | External Medical Summary ---
Author Name Unknown Address Unknown Organization [id number]:[facility] [place] - [address] [facility] [place] [address] Laboratory Report Ordering Provider Test Date Status NIKOS MISHRA 09/28/2023 09:33:01 Final Observation Date Value Abnormality Reference (Units ) Status SYNC LEUKOCYTES IN BLOOD BY AUTOMATED COUNT 09/28/2023 09:33:01 8.65 4.00-10.80 (K/uL) Final Segs 09/28/2023 09:33:01 76.1 Above high normal 40.0-75.0 (%) Final Lymphs % 09/28/2023 09:33:01 11.0 Below low normal 18.0-42.0 (%) Final Monos 09/28/2023 09:33:01 10.1 1.0-11.0 (%) Final Eosinophils 09/28/2023 09:33:01 2.3 0.0-6.0 (%) Final Basos 09/28/2023 09:33:01 0.3 0.0-2.0 (%) Final Immature Granulocyte, Percent 09/28/2023 09:33:01 0.2 0.0-2.0 (%) Final Absolute Segs 09/28/2023 09:33:01 6.58 1.80-7.70 (K/uL) Final Lymphs, absolute 09/28/2023 09:33:01 0.95 Below low normal 1.00-4.80 (K/ul) Final Monos, Abs 09/28/2023 09:33:01 0.87 0.00-1.10 (K/uL) Final Eos, Abs 09/28/2023 09:33:01 0.20 0.00-0.70 (K/uL) Final Basos, Abs 09/28/2023 09:33:01 0.03 0.00-0.20 (K/uL) Final Immature Granulocytes, Number 09/28/2023 09:33:01 0.02 0.00-0.20 (K/uL) Final Performing Location [facility] [place] - [facility] [place] [address]
--- OUTSIDE RECORDS SUMMARY | 2023-12-04 10:23 | External Medical Summary | Summary of Care ---
Author Name Unknown Organization [facility] Address [address] [facility] [place] [address] Phone [phone] Care Team Providers Care Md Pediatric Allergist Name Role Phone Benny Waite DO Primary Care Provider [phone] Encounter Details Date Type Department Care Team (Late st Contact Info) Description 09/20/2023 Telephone Family Practice 65 [facility] 293 [place] [address] Benny Waite DO 293 [place] [address] Allergies Active Allergy Reactions Criticality Noted Date Comments Adhesive Tape 02/04/2017 Duloxetine High 07/13/2023 Other Reaction(s): confusion Levofloxacin 09/01/2019 documented as of this encounter (statuses as of 09/28/2023) Medications Medication Sig Dispensed Refills Start Date [...] or Wheezing. 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 No guns in the home. [facility]ues [facility] Crisis number given to pt by [facility] health CM referral placed Moderate to [...] [facility] Device(s): Connected Scale Connected Pulse Ox Connected BP Cuff Self - Management Plan Double dose of Furosemide for 3 days Exacerbation Plan BMP Additional Comments: Euvolemic today. Pt requests [facility] scale, BP and pulse ox which was ordered. 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 documented as of this encounter (statuses as of 09/28/2023) Resolved Problems Problem Noted Date Diagnosed Date [...] as of this encounter (statuses as of 09/28/2023) Immunizations Name Administration Dates Next Due COVID-19 mRNA, LNP-s, No Pre serve, 2-Dose Series (Moderna) 08/20/2020,07/17/2020 COVID-19 mRNA, LNP-s, No Pre serve, 2-Dose Series (Adworx) 05/14/2021 COVID-19, LNP-s, No Preserve , Robbie-sucrose, [...] Telephone Encounter - Marnie Bobo RN - 09/28/2023 3:28 PM EDT Spoke with pt and notified of message below. * Telephone Encounter - Marnie Bobo RN - 09/20/2023 4:03 PM EDT Pt calling in-states he has not been receiving his monthly OTC master cards. Told pt that I would talk with the health plan inbound sales representative in the office and he will reach out to him. Stephon notified and states he will f/u with pt. Pt also states he never did receive his $40 gift card for doing his AWV back in December 2022. Had talked with the Medicare Rewards Program several times-last time was back on 05/03/23 and was told that they received his claim on 03/31/23 and that it will be 3-4 months until pt receives his card. Call to Medicare REwards Program-spoke with Antonietta-states they just mailed out his reward card on 09/03/23-he should receive by end of October. Told that he has been waiting since December. Will let pt know. Sent message to Adelaida Ocampo on 09/21/23 and she was going to reach out to the head of the Medicare Rewards Program documented in this encounter Plan of Treatment Upcoming Encounters Date Type Department Care Team (Late st Contact Info) Description 10/01/2023 10:40 AM EDT Office Visit Family Practice [address] [place] [address] 293 [place] [address] Benny Waite, 293 [place] [address] 10/06/2023 2:20 PM EDT Office Visit Otolaryngology [facility] 132 [facility] [place] [address] George Ferrer PA-C 132 [place] [address] 10/08/2023 8:20 AM EDT Office Visit Family Practice [address] [place] [address] 293 [place] [address] Benny Waite, 293 [place] [address] 10/14/2023 8:30 AM EDT [facility] [address] [place] [address] Myrtle Allen, RN [address] [facility] [place] [address] 10/26/2023 11:00 AM EDT [facility]medicine [facility], [facility] [address] [place] [address] Yadira Omalley CRNP 132 [facility] [place] [address] Ines Castro, Community Health Oil And Gas Field Technician [address] [place] [address] 12/13/2023 11:20 AM EDT Office Visit Family Practice 65 [facility] [address] [place] [address] Benny Waite, 293 [place] [address] 12/21/2023 11:00 AM EDT Nurse Only Ancillary 65 [facility] [address] [place] [address] College, Nurse Annual Wellness Visit [address] [address] 01/12/2024 7:15 AM EDT Cardiac Studies Cardiac Studies, [facility] 132 [place] [address] 01/12/2024 8:30 AM EDT Office Visit Cardiology, [facility] 132 [place] [address] Franco Mcgregor MD [address] [place], [place] [address] Health Maintenance Due Date Last Done Comments [...] this encounter Medical Devices Implanted Type Area Hostler Helper Device Identifier Shelf Expiration Date Model / Serial / Lot Device Watchman Flx 35mm - [id number] Implanted:Qty: 1 on 02/05/2022 by Diamond Teran IV, [place] [facility] [employer] : INTRV CARD [id number] 10/20/2024 [id number] / / [id number] Cath Thermodilution 6fr - [id number] Implanted:Qty: 1 on 07/31/2022 by Franco Mcgregor MD at [facility] [employer] [id number] 04/30/2024 [id number] / / [id number] Mirtaclip G4 - [id number] Implanted:Qty: 1 on 11/16/2022 at [facility] [employer] 06/25/2023 [id number] / / [id number] Clip Delivery Sytem G4 Xtw - [id number] Implanted:Qty: 1 on 11/16/2022 at [facility] [employer] [id number] 08/10/2023 [id number] / / [id number] Clip Delivery Sytem G4 Xtw - [id number] Implanted:Qty: 1 on 11/16/2022 at [facility] [employer] [id number] 09/10/2023 [id number] / / [id number] documented as of this encounter Advance [...] and were consensually agreed upon. Care Teams Md Pediatric Allergist Relationship Specialty Start Date End Date Benny Waite DO [address] [place] [address] PCP - General Internal Medicine 04/03/21 documented as of this encounter
--- OUTSIDE RECORDS SUMMARY | 2023-12-04 10:23 | External Medical Summary | Summary of Care ---
Author Name Unknown Organization [facility] Address [address] [address] Phone [phone] Care Team Providers Care Donor Relations Manager Name Role Phone Benny Waite DO Primary Care Provider [phone] Reason for Visit * Reason Onset Date Comments Appointment 10/11/2023 Encounter Details Date Type Department Care Team (Late st Contact Info) Description 10/11/2023 Telephone Family Practice [address] [place] [address] [place] [address] Benny Waite DO 293 [place], [place] [id number] Appointment Allergies Active Allergy Reactions Criticality Noted Date Comments Adhesive Tape 02/04/2017 Duloxetine High 07/13/2023 Other Reaction(s): confusion Levofloxacin 09/01/2019 documented as of this encounter (statuses as of 10/11/2023) Medications Medication Sig Dispensed Refills Start Date [...] as of this encounter (statuses as of 10/11/2023) Active Problems Problem Noted Date Diagnosed Date History of CVA (cerebrovascular accident) 2023 Rectal bleeding 08/11/2023 Last Assessment & Plan: Pt reports this is not new and ongoing for one year. Bright red, known hemorrhoids. Had CBC done 08/05 and normal, reports no increased bleeding since that lab draw or since taking plavix. Will share [facility] with [facility] 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 Continues buspar. [facility] Crisis number given to pt by [facility] health referral placed Moderate to severe mitral [...] as of this encounter (statuses as of 10/11/2023) Resolved Problems Problem Noted Date Diagnosed Date [...] as of this encounter (statuses as of 10/11/2023) Immunizations Name Administration Dates Next Due COVID-19 [...] Telephone Encounter - Marnie Bobo RN - 10/11/2023 9:15 AM EDT Pt calling in to reschedule his appt with Dr Waite which he had to cancel on Wednesday d/t his passing away. Pt states he is doing OK. Is having issues with his toenail-?fungal infection. Thick and lifting up. Denies any redness, discharge, pain. Appt rescheduled for 10/02/23 at 8:00 AM documented in this encounter Plan of Treatment Upcoming Encounters Date Type Department Care Team (Late st Contact Info) Description 10/12/2023 8:00 AM EDT Office Visit Family Practice 65 [facility] 293 [facility] [place] [address] Benny Waite, DO 293 [facility] [place] [address] 10/14/2023 8:30 AM EDT [facility], [facility] 132 [place] [address] Myrtle Allen, RN 132 [facility] [place] [address] 10/26/2023 11:00 AM EDT Telemedicine [facility], [facility] 132 [place] [address] Yadira Omalley CRNP 132 [place] [address] Ines Castro, Community Health Performance Improvement Director 100 [place] [address] 12/13/2023 11:20 AM EDT Office Visit Family Practice 65 [facility] 293 [facility] [place] [address] Benny Waite, DO 293 [facility] [place] [address] 12/21/2023 11:00 AM EDT Nurse Only Ancillary 65 [facility] 293 [facility] [place] [address] College, Nurse Annual Wellness Visit [address] [place] [address], [place] [address] 01/12/2024 7:15 AM EDT Cardiac Studies Cardiac Studies, [facility] 132 [place] [address] 01/12/2024 8:30 AM EDT Office Visit Cardiology, [facility] 132 [facility] [place] [address] Franco Mcgregor MD [address] [place] [address] 02/15/2024 8:00 AM EDT Office Visit Cardiology, [facility] 132 [facility] [place] [address] Casimiro Barraza MD 132 [facility] [place] [address] Health Maintenance Due Date Last Done Comments [...] this encounter Medical Devices Implanted Type Area Support Director Device Identifier Shelf Expiration Date Model / Serial / Lot Device Watchman Flx 35mm - [id number] Implanted:Qty: 1 on 02/05/2022 by Diamond Teran IV, [place] at [facility] [employer] [place] INTRV CARD [id number] 10/20/2024 [id number] / / [id number] Cath Thermodilution 6fr - [id number] Implanted:Qty: 1 on 07/31/2022 by Franco Mcgregor MD at [facility] [employer] [id number] 04/30/2024 [id number] / / [id number] Mirtaclip G4 - [id number] Implanted:Qty: 1 on 11/16/2022 at [facility] [employer] 06/25/2023 [id number] / / [id number] Clip Delivery Sytem G4 Xtw - [id number] Implanted:Qty: 1 on 11/16/2022 at [facility] [employer] [id number] 08/10/2023 [id number] / / [id number] Clip Delivery Sytem G4 Xtw - [id number] Implanted:Qty: 1 on 11/16/2022 at [facility] [employer] [id number] 09/10/2023 [id number] / / [id number] documented as of this encounter Advance [...] and were consensually agreed upon. Care Teams Donor Relations Manager Relationship Specialty Start Date End Date Benny Waite DO [address] [place] [address] PCP - General Internal Medicine 04/03/21 documented as of this encounter
--- OUTSIDE RECORDS SUMMARY | 2023-12-04 10:23 | External Medical Summary | Summary of Care ---
Author Name Unknown Organization [facility] Address [address] [place] [address] Phone [phone] Care Team Providers Care Survey Director Name Role Phone Benny Waite DO Primary Care Provider [phone] Reason for Visit * Reason Onset Date Comments Test Results 09/28/202309/27 Encounter Details Date Type Department Care Team (Late st Contact Info) Description 09/28/2023 Telephone Family Practice [address] [facility] [place] 293 [place] [address] Benny Waite DO 293 [place] [address] Test Results (09/27) Allergies Active Allergy Reactions Criticality Noted Date [...] [facility] 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 Not on statin--LDL 89. Will defer to PCP to add statin--goal <70 BP at goal today. Sacroiliitis, not elsewhere classified 4 S/P MVR (mitral valve repair) 11/16/2022 Atherosclerosis of [place] co 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 pectoris 08/11/2022 Severe tricuspid regurgitation 08/11/2022 Gout, arthropathy 07/20/2022 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 02/05/2022 Permanent atrial fibrillation 12/22/2021 Overview: Added automatically from request for surgery [id number] Last Assessment & Plan: S/p Watchman Current [...] No guns in the home. Continues buspar. [facility] Crisis number given to pt by [facility] Behavioral health referral placed Moderate to severe mitral [...] in the Comments) Remote Patient Monitoring Vendor: [facility] Device(s): Connected Scale Connected Pulse Ox Connected [...] Telephone Encounter - Asiya Bliss LPN - 09/28/2023 4:32 PM EDT Call placed to patient and relayed information from Dr. Waite. Patient acknowledged understanding and states he will comply. * Telephone Encounter - Asiya Bliss LPN - 09/28/2023 4:30 PM EDT ----- Message from Benny Waite DO sent at 09/28/2023 4:22 PM EDT ----- Labs are stable. Continue medications as discussed at visit. documented in this encounter Plan of Treatment Upcoming Encounters Date Type Department Care Team (Late st Contact Info) Description 10/01/2023 10:40 AM EDT Office Visit [address] 293 [place] [address] Benny Waite, 293 [place] [address] 10/06/2023 2:20 PM EDT Office Visit Otolaryngology [facility] 132 [facility] [place] [address] George Ferrer PA-C 132 [facility] [place] [address] 10/08/2023 8:20 AM EDT Office Visit [address] 293 [place] [address] Benny Waite, 293 [place] [address] 10/14/2023 8:30 AM EDT [facility] [place], [facility] [address] [place] [address] Myrtle Allen RN [address] [place] [address] 10/26/2023 11:00 AM EDT Telemedicine [facility], [facility] [address] [place] [address] Yadira Omalley CRNP [address] [place] [address] Ines Csatro, Community Health Levee Superintendent [place] [address] 12/13/2023 11:20 AM EDT Office Visit Family Practice 65 [facility] 293 [place] [address] Benny Waite, 293 [place] [address] 12/21/2023 11:00 AM EDT Nurse Only Ancillary 65 [facility] 293 [place] [address] College, Nurse Annual Wellness Visit [address] [address] 01/12/2024 7:15 AM EDT Cardiac Studies Cardiac Studies, [facility] 132 [place] [address] 01/12/2024 8:30 AM EDT Office Visit Cardiology, [facility] 132 [place] [address] Franco Mcgregor MD [address] [place] [address] Health Maintenance Due Date Last Done Comments [...] this encounter Medical Devices Implanted Type Area Biology Tutor Device Identifier Shelf Expiration Date Model / Serial / Lot Device Watchman Flx 35mm - [id number] Implanted:Qty: 1 on 02/05/2022 by Diamond Teran IV, MD at [facility] [place] [employer] : INTRV CARD [id number] 10/20/2024 [id number] / / [id number] Cath Thermodilution 6fr - [id number] Implanted:Qty: 1 on 07/31/2022 by Franco Mcgregor MD at [facility] [place] [employer] [id number] 04/30/2024 [id number] / / [id number] Mirtaclip G4 - [id number] Implanted:Qty: 1 on 11/16/2022 at [facility] [place] [employer] 06/25/2023 [id number] / / [id number] Clip Delivery Sytem G4 Xtw - [id number] Implanted:Qty: 1 on 11/16/2022 at [facility] [place] [employer] [id number] 08/10/2023 [id number] / / [id number] Clip Delivery Sytem G4 Xtw - [id number] Implanted:Qty: 1 on 11/16/2022 at [facility] [place] [employer] [id number] 09/10/2023 [id number] / / [id number] documented as of this encounter Advance [...] and were consensually agreed upon. Care Teams Survey Director Relationship Specialty Start Date End Date Benny Waite DO [address] [place] [address] PCP - General Internal Medicine 04/03/21 documented as of this encounter
--- OUTSIDE RECORDS SUMMARY | 2023-12-04 10:23 | External Medical Summary | Summary of Care ---
Author Name Unknown Organization [facility] Address [address] [place] [address] Phone [phone] Care Team Providers Care Adjunct Professor Name Role Phone Benny Waite DO Primary Care Provider [phone] Reason for Visit * Reason Onset Date Comments Advice 09/27/202309/26 Encounter Details Date Type Department Care Team (Late st Contact Info) Description 09/27/2023 Telephone Family Practice 65 [facility] [place] 293 [place] [address] Benny Waite DO 293 [place] [address] Advice (09/26) Allergies Active Allergy Reactions Criticality Noted Date Comments Adhesive Tape 02/04/2017 Duloxetine High 07/13/2023 Other Reaction(s): confusion Levofloxacin 09/01/2019 documented as of this encounter (statuses as of 09/27/2023) Medications Medication Sig Dispensed Refills Start Date [...] 1 Capsule in the evening. 0 Active Neomycin-Polymyxin -HC 3.5-87951-6 Otic SolutionIndication s:Other infective acute otitis externa of left ear Administer 4 Drops into the left ear in the morning and 4 Drops at noon and 4 Drops before bedtime. To affected ear for 10 days 10 mL 0 05/13/2023 Active Additional Information Patient not taking.Reported on 07/28/2023 Allopurinol 300 MG Oral Tablet (Zyloprim) Take [...] before bedtime. 200 Tablet 3 06/18/2023 Active Furosemide 20 MG Oral Tablet (Lasix) Take 1 Tablet by mouth once a day on Wednesday, Wednesday, and Wednesday only. 0 Active Meclizine HCl 12.5 MG Oral Tablet [...] mg by mouth daily. 0 08/12/2023 Active traMADol HCl 50 MG Oral Tablet (Ultram)Indication s:Lumbar degenerative disc disease Take 1 Tablet by mouth in the morning and 1 Tablet before bedtime. 60 Tablet 0 08/25/2023 Active Amoxicillin-Pot Clavulanate 875-125 MG Oral Tablet (Augmentin) Take 1 Tablet by mouth in the morning and 1 Tablet before bedtime. 0 08/31/2023 Active Lisinopril 2.5 MG Oral Tablet (Prinivil)Indicati ons:CHF (congestive heart failure), NYHA class I, chronic, diastolic (HCC) Take 1 Tablet by mouth in the morning. 100 Tablet 3 09/07/2023 Active Proventil HFA 108 (90 Base) MCG/ACT Inhalation Aerosol Solution Inhale 2 Puffs by mouth 3 times a day as needed for Dyspnea, Cough or Wheezing. 6.7 g 3 09/10/2023 Active documented as of this encounter (statuses as of 09/27/2023) Active Problems Problem Noted Date Diagnosed Date Rectal bleeding 08/11/2023 Last Assessment & Plan: Pt reports this is not new and ongoing for one year. Bright red, known hemorrhoids. Had CBC done 08/05 and normal, reports no increased bleeding since that lab draw or since taking plavix. Will share note with [facility]CP [facility] 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 Not on statin--LDL 89. Will defer to PCP to add statin--goal <70 BP at goal today. 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 Continues buspar. [facility] Crisis number given to pt by [facility] health CM referral placed Moderate [...] as of this encounter (statuses as of 09/27/2023) Resolved Problems Problem Noted Date Diagnosed Date [...] as of this encounter (statuses as of 09/27/2023) Immunizations Name Administration Dates Next Due COVID-19 mRNA, LNP-s, No Pre serve, 2-Dose Series (Moderna) 08/20/2020,07/17/2020 COVID-19 mRNA, LNP-s, No Pre serve, 2-Dose Series (Pfizer) 05/14/2021 COVID-19, LNP-s, No Preserve , Robbie-sucrose, Ages 12+ (Pfizer) 11/04/2021 COVID-19, MRNA-LNP, 23-24, P F, 30 MCG/0.3 mL, 12 YRS AND ABOVE, IM ([email or web address]) 04/16/2023 Covid-19, Mrna, Lnp-s, Pf, B ivalent, 30 Mcg, IM, 12 yrs and above ([employer]) 03/17/2022 Pneumococcal Conjugate Vacc, 13 Valent (Prevnar) [...] Answer Date Recorded PHQ Adult Total Score 15 09/24/2023 Hunger Vital Sign Answer Date Recorded Within [...] Telephone Encounter - Marnie Bobo RN - 09/27/2023 3:30 PM EDT Pt returned call-states has been having SOB-started last /Wednesday and feels has gotten worse. Hard to talk at time. Throat is dry and dryness goes up into ears. Feels he is on too many medications. Had spoken with cardiology and they will talk with Dr Barraza about his medications. Denies any chest pain. Feels SOB in throat/neck-denies feeling of swelling. Used VICKS and help temporarily. Denies swelling in feet/legs/hands/face. States gets lightheaded when stands up. Had pt check his O2 level-93-94%, HR 66. Spoke with Dr Waite-he doesn't want to stop any of his medications at this time. Request pt come in to be seen. Offered pt appt tomorrow at 8AM-pt will try to get a ride. To call if doesn't work outand can find another time to come. Pt agreeable. To continue to monitor his pulse ox. * Telephone Encounter - Marnie Bobo RN - 09/27/2023 3:16 PM EDT Call to pt-no answer-unable to leave message * Telephone Encounter - Macy Carbajal OSA - 09/27/2023 2:00 PM EDT Would like to speak someone Wouldn't give me any information Please call documented in this encounter Plan of Treatment Upcoming Encounters Date Type Department Care Team (Late st Contact Info) Description 09/28/2023 8:00 AM EDT Office Visit Family Practice [address], [place] 293 [place] [place] [address] Benny Waite, 293 [place] [address] 10/06/2023 2:20 PM EDT Office Visit Otolaryngology [facility] 132 [place] [address] George Ferrer PA-C 132 [place] [address] 10/08/2023 8:20 AM EDT Office Visit Family Practice 65 [facility] 293 [place] [address] Benny Waite, DO 293 [place] [address] 10/14/2023 8:30 AM EDT [facility], [facility] 132 [place] [address] Myrtle Allen RN 132 [place] [address] 10/26/2023 11:00 AM EDT Telemedicine [facility], [facility] 132 [place] [address] Yadira Omalley CRNP 132 [place] [address] Ines Castro, Community Health Milk Powder Grinder 100 [place] [address] 12/13/2023 11:20 AM EDT Office Visit Family Practice 65 [facility] 293 [place] [address] Benny Waite, [address] [place] [address] 12/21/2023 11:00 AM EDT Nurse Only Ancillary 65 [facility] 293 [place] [place] [address] College, Nurse Annual Wellness Visit [address] [place] [address] 01/12/2024 7:15 AM EDT Cardiac Studies Cardiac Studies, [facility] 132 [place] [address] 01/12/2024 8:30 AM EDT Office Visit Cardiology, [facility] 132 [place] [address] Franco Mcgregor MD [address] [place] [address] Health Maintenance Due Date Last Done Comments Depression, Most Recent Score >= 10 (will fire each visit until score < 10) 09/25/2023 09/24/2023 DTaP,Tdap,and Td Vaccines (2 - Td or [...] this encounter Medical Devices Implanted Type Area Skein Winding Operator Device Identifier Shelf Expiration Date Model / Serial / Lot Device Watchman Flx 35mm - [id number] Implanted:Qty: 1 on 02/05/2022 by Diamond Teran IV, [place] at [facility] [place] [employer] : INTRV CARD [id number] 10/20/2024 [id number] / / [id number] Cath Thermodilution 6fr - [id number] Implanted:Qty: 1 on 07/31/2022 by Franco Mcgregor MD [place] [facility] [place] [place] [employer] [id number] 04/30/2024 [id number] / / [id number] Mirtaclip G4 - [id number] Implanted:Qty: 1 on 11/16/2022 at [facility] [place] [employer] 06/25/2023 [id number] / / [id number] Clip Delivery Sytem G4 Xtw - [id number] Implanted:Qty: 1 on 11/16/2022 at [facility] [place] [employer] [id number] 08/10/2023 [id number] / / [id number] Clip Delivery Sytem G4 Xtw - [id number] Implanted:Qty: 1 on 11/16/2022 at [facility] [place] [employer] [id number] 09/10/2023 [id number] / / [id number] documented as of this encounter Advance [...] and were consensually agreed upon. Care Teams Adjunct Professor Relationship Specialty Start Date End Date Benny Waite DO [address] [facility] [place] [address] PCP - General Internal Medicine 04/03/21 documented as of this encounter
--- OUTSIDE RECORDS SUMMARY | 2023-12-04 10:23 | External Medical Summary | Summary of Care ---
Author Name Unknown Organization [facility] Address [address] [address] Phone [phone] Care Team Providers Care Lcac Radar Operator/Navigator Name Role Phone Benny Waite DO Primary Care Provider [phone] Reason for Visit * Reason Comments Follow Up Encounter Details Date Type Department Care Team (Late st Contact Info) Description 09/28/2023 8:00 AM EDT Office Visit Family Practice [address] [facility] [address] [place] [phone] Benny Waite DO [address] [place] [address] Shortness of breath*; CHF (congestive heart failure), NYHA class I, chronic, diastolic (HCC); Current 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 ([facility]); BPH with obstruction/lower urinary tract symptoms; DEX (obstructive sleep apnea); Lumbar degenerative disc disease; Permanent atrial fibrillation ([facility]); Gout, arthropathy; S/P MVR (mitral valve repair); Severe tricuspid regurgitation; History of CVA (cerebrovascular accident); Atherosclerosis of te-moak coronary artery of te-moak heart without angina pectoris; Presence of Watchman left atrial appendage closure device Allergies Active Allergy Reactions Criticality Noted Date Comments Adhesive Tape 02/04/2017 Duloxetine High 07/13/2023 Other Reaction(s): confusion Levofloxacin 09/01/2019 documented as of this encounter (statuses as of 09/30/2023) Medications Medication Sig Dispensed Refills Start Date [...] the evening. 90 Tablet 0 09/28/2023 Active Neomycin-Polymyxin -HC [id number] Otic SolutionIndication s:Other infective acute otitis externa of left ear Administer 4 Drops into the left ear in the morning and 4 Drops at noon and 4 Drops before bedtime. To affected ear for 10 days 10 mL 0 05/13/2023 4 Discontinue d(Medicatio n List Clean Up) Furosemide 20 MG Oral Tablet (Lasix) Take 1 Tablet by mouth once a day on Wednesday, Wednesday, and Wednesday only. 0 4 Discontinue d(Refill) traMADol HCl 50 MG Oral Tablet (Ultram)Indication s:Lumbar degenerative disc disease Take 1 Tablet by mouth in the morning and 1 Tablet before bedtime. 60 Tablet 0 08/25/2023 4 Discontinue d(Refill) Amoxicillin-Pot Clavulanate 875-125 MG Oral Tablet (Augmentin) Take 1 Tablet by mouth in the morning and 1 Tablet before bedtime. 0 08/31/2023 4 Discontinue d(Medicatio n List Clean Up) Lisinopril 2.5 MG Oral Tablet (Prinivil)Indicati ons:CHF (congestive heart failure), NYHA class I, chronic, diastolic (HCC) Take 1 Tablet by mouth in the morning. 100 Tablet 3 09/07/2023 4 Discontinue d(Medicatio n/Dose Changed) documented as of this encounter (statuses as of 09/30/2023) Active Problems Problem Noted Date Diagnosed Date [...] MVR (mitral valve repair) 11/16/2022 Atherosclerosis of te-moak co 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 pectoris 08/11/2022 Severe tricuspid regurgitation 08/11/2022 Gout, arthropathy 07/20/2022 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 02/05/2022 Permanent atrial fibrillation 12/22/2021 Overview: Added automatically from request for surgery [id number] Last Assessment & Plan: S/p Watchman Current [...] Continues buspar. [facility] Crisis number given to pt by [facility] health CM referral placed Moderate [...] as of this encounter (statuses as of 09/30/2023) Resolved Problems Problem Noted Date Diagnosed Date [...] as of this encounter (statuses as of 09/30/2023) Immunizations Name Administration Dates Next Due COVID-19 mRNA, LNP-s, No Pre serve, 2-Dose Series (Moderna) 08/20/2020,07/17/2020 COVID-19 mRNA, LNP-s, No Pre serve, 2-Dose Series (Net 263) 05/14/2021 COVID-19, LNP-s, No Preserve , Robbie-sucrose, Ages 12+ (Net 263) 11/04/2021 COVID-19, MRNA-LNP, 23-24, P F, 30 MCG/0.3 mL, 12 YRS AND ABOVE, IM ([employer]-Comirnaty) 04/16/2023 Covid-19, Mrna, Lnp-s, Pf, B ivalent, [...] Sign Reading Time Taken Comments Blood Pressure 122/78 09/28/2023 8:23 AM EDT Pulse 77 09/28/2023 8:23 AM EDT Temperature 36.1 C (96.9 F) 09/28/2023 8:23 AM ED T Respiratory Rate - - Oxygen Saturation 96% 09/28/2023 8:23 AM EDT Inhaled Oxygen Concentration - - Weight 99.9 kg (220 lb 3.2 oz) 09/28/2023 8:23 A M EDT Height - - Body Mass Index 34.23 08/25/2023 9:27 AM EDT documented in this [...] Progress Notes * Benny Waite DO - 09/30/2023 2:02 PM EDT SUBJECTIVE: Nikolas Silvestre is a 83 year old male. Chief Complaint Patient presents with Follow Up HPI: Patient is an 83 year old male with a history of Atrial FIbrillation, Mitral Valve Repair, DIastolic CHF, Sleep Apnea, BiPAP intolerance, Lumbar Disc Disease, SI joint Arthritis, Internal Hemorrhoids, BPH, Gout, right occipital CVA, and Watchman Device implant that is seen for follow up. Chronic shortness of breath continues to worsen. Chronic low back pain that does not radiate is unchanged as well. No chest pain is present. He is dizzy when he bends down. No syncope. Weight is stable and appetite is good. He has difficulty sleeping and fatigue is present daily. He does feel bad about himself but would not hurt himself. Patient Active Problem List Diagnosis Code ADVANCE DIRECTIVE INFORMATION Elevated prostate specific antigen (PSA) R97.20 Macular puckering H35.379 BPH with obstruction/lower urinary tract symptoms N40.1, N13.8 CHF (congestive heart failure), NYHA class I, chronic, diastolic ([facility]) I50.32 Encounter for long-term (current) use of medications Z79.899 DEX (obstructive sleep apnea) G47.33 Moderate to severe mitral regurgitation I34.0 Lumbar degenerative disc disease M51.36 Current 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 ([facility]) F32.1 Permanent atrial fibrillation ([facility]) I48.21 Presence of Watchman left atrial appendage closure device Z95.818 Gout, arthropathy M10.9 Atherosclerosis of te-moak co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 pectoris I25.10 Severe tricuspid regurgitation I07.1 S/P MVR (mitral valve repair) Z98.890 Sacroiliitis, not elsewhere classified ([facility]) M46.1 Visual field loss, post-stroke [...] Tablet in the evening. 90 Tablet 0 No current facility-administered medications for this visit. The patient's medication list was reviewed and updated as needed. Past Medical History: Diagnosis Date Aortic root enlargement (HCC) 10/01/2020 BPH with obstruction/lower urinary tract symptoms CHF (congestive heart failure), NYHA class I, chronic, diastolic (HCC) 05/02/2019 Chronic atrial fibrillation (HCC) 01/18/2018 Current 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 ([facility]) 07/09/2021 DDD (degenerative disc disease), lumbar Depression Gout, arthropathy 07/20/2022 History of CVA (cerebrovascular accident) 09/28/2023 Nonrheumatic mitral valve regurgitation 04/03/2021 Renal calculus Severe obesity with body mass index (BMI) of 35.0 to 39.9 with serious comorbidity (HCC) 04/24/2022 Sleep apnea, obstructive Past Surgical History: Procedure Laterality Date CATARACT SURGERY,COMPLEX COLONOSCOPY, DIAGNOSTIC (RECTUM) 02/13/2021 diverticulosis, [facility] COLORECTAL CANCER SCREEN; NOT AT RISK 04/04/2008 Diverticulosis CORONARY ANGIOGRAPHY W/RIGHT+LEFT CATH Bilateral 07/31/2022 CORONARY ANGIOGRAPHY W/RIGHT+LEFT CATH performed [place] Franco Mcgregor [place] [facility] [place]STOSCOPY 10/22/2011 CYSTOURETHROSCOPY performed by LIBERTAD FITZPATRICK at [place] [facility] CYSTOSCOPY 09/13/2012 CYSTOURETHROSCOPY performed by Eliseo Menard MD at [place] [facility] INJECT DX/THER SUBSTANCE INTERLAMINAR LUMBAR/SACRAL W IMAGE GUIDE 06/23/2021 INJECTION SPINE LUMBAR OR SACRAL performed by Anderson Easton DO at OR [facility] OTHER 02/13/1980 Dr. Zhang DEX surgery OTHER left hand reconstruction PERC CLOSURE TRANSCATH LEFT ATRIAL APPENDAGE W/ENDOCARDIAL IMPLANT N/A 02/05/2022 PERCUTANEOUS CLOSURE LEFT ATRIAL APPENDAGE IMPLANT performed by Diamond Teran IV, MD at [facility] PSA 06/14/2004 3.42 PSA 06/14/2005 3.72 PSA 02/13/2008 5.17 REMOVAL OF PROSTATE (TURP) 10/22/2011 TRANSURETHRAL RESECTION PROSTATE ELECTROSURGICAL performed by LIBERTAD FITZPATRICK [place] [facility] REMOVAL OF PROSTATE (TURP) 09/13/2012 TRANSURETHRAL RESECTION PROSTATE ELECTROSURGICAL performed by Eliseo Menard MD at [place] [facility] REMOVE CATARACT, INSERT LENS PROSTH OU REMOVE TONSILS & ADENOIDS, UNDER 12 SACROILIAC JOINT INJECT W/GUIDANCE 11/11/2022 INJECTION SACROILIAC JOINT performed by Anderson Easton DO at OR [facility] SACROILIAC JOINT INJECT W/GUIDANCE 02/10/2023 INJECTION SACROILIAC JOINT performed by Anderson Easton DO at OR [facility] SACROILIAC JOINT INJECT W/GUIDANCE 05/26/2023 INJECTION SACROILIAC JOINT performed by Anderson Easton DO at OR [facility] TRANSCATH REPAIR MITRAL VALVE, INITIAL Bilateral 11/16/2022 TRANSCATHETER MITRAL VALVE REPAIR performed by Franco Mcgregor MD at [facility] VITRECTOMY W/ REMOVE OF [...] blood in stool, diarrhea,nausea and vomiting. Genitourinary: Positive for frequency. Negative for dysuria and hematuria. Musculoskeletal: Positive for arthralgias, back pain and gait problem. Neurological: Positive for dizziness. Negative for syncope and headaches. Psychiatric/Behavioral: Positive for dysphoric mood and sleep disturbance. Negative for confusion, decreased concentration, self-injury and suicidal ideas. OBJECTIVE: BP 122/78 (BP Site: Left Arm) | Pulse 77 | Temp 36.1 C (96.9 F) | Wt 99.9 kg (220 lb 3.2 oz) | SpO2 96% | BMI 34.23 kg/m | BSA 2.18 m Physical Exam Vitals and nursing note reviewed. Constitutional: General: He is not in acute distress. Appearance: Normal appearance. He is not toxic-appearing. HENT: Head: Normocephalic and atraumatic. Cardiovascular: Rate and Rhythm: Normal rate and regular rhythm. Heart sounds: Murmur heard. Systolic murmur is present. No gallop. Pulmonary: Effort: Pulmonary effort is normal. Breath sounds: Normal breath sounds. No wheezing or rales. Chest: Chest wall: No tenderness. Abdominal: General: Bowel sounds are normal. There [...] Content: Thought content normal. PLAN AND ASSESSMENT: Shortness of breath (Primary) - XR CHEST 2 VIEWS - COMPREHENSIVE METABOLIC PANEL; Future; Expected date: 09/28/2023 - CBC WITH WBC DIFFERENTIAL; Future; Expected date: 09/28/2023 - COMPREHENSIVE METABOLIC PANEL - CBC WITH WBC DIFFERENTIAL CHF (congestive heart failure), NYHA class I, chronic, diastolic (HCC) - XR CHEST 2 VIEWS - COMPREHENSIVE METABOLIC PANEL; Future; Expected date: 09/28/2023 - CBC WITH WBC DIFFERENTIAL; Future; Expected date: 09/28/2023 - BNP, NT-PRO; Future; Expected date: 09/28/2023 - Increase Furosemide 20 MG Oral Tablet (Lasix); Take 1 Tablet by mouth in the morning. Continue Metoprolol ER - COMPREHENSIVE METABOLIC PANEL - CBC WITH WBC DIFFERENTIAL - BNP, NT-PRO 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) Patient does not wish to start additional medications. BPH with obstruction/lower urinary tract symptoms Continue Finasteride DEX (obstructive sleep apnea) Did not tolerate BiPAP Lumbar degenerative disc disease - traMADol HCl 50 MG Oral Tablet (Ultram); Take 1 Tablet by mouth in the morning and 1 Tablet at noon and 1 Tablet in the evening. Continue Gabapentin Permanent atrial fibrillation (HCC) Continue Metoprolol ER S/P Watchman implant Gout, arthropathy S/P MVR (mitral valve repair) Severe tricuspid regurgitation History of CVA (cerebrovascular accident) Atherosclerosis of te-[place] coronary artery of te-moak heart without angina pectoris Presence of Watchman left atrial appendage closure device Follow Up: Return in about 3 days (around 10/01/2023), or if symptoms worsen or fail to improve. Benny Waite DO 2:02 PM 09/30/2023 * Marnie Bobo RN - 09/28/2023 9:32 AM EDT LAB DRA[place] AND [place] [facility] [place] documented in this encounter Miscellaneous Notes * Result Encounter Note - Marnie Baker LPN - 09/29/2023 10:44 AM EDT Letter has been sent * Result Encounter Note - Asiya Bliss LPN - 09/28/2023 4:33 PM EDT Spoke to patient - see telephone encounter. documented in this encounter Plan of Treatment Upcoming Encounters Date Type Department Care Team (Late st Contact Info) Description 10/01/2023 10:40 AM EDT Office Visit Family Practice [address] [place] [address] [place] [phone] Benny Waite DO [address] [place] [address] 10/06/2023 2:20 PM EDT Office Visit Otolaryngology [facility] [address] [place] [address] George Ferrer PA-C [address] [place] [address] 10/08/2023 8:20 AM EDT Office Visit Family Practice [address] [place] [address] [address] [facility] [place] [phone] Benny Waite, [address] [place] [address] 10/14/2023 8:30 AM EDT Home Visit [facility], [facility] [address] [place] [address] Myrtle Allen, RN [address] [place] [address] 10/26/2023 11:00 AM EDT Telemedicine [facility], [facility] [address] [place] [address] Yadira Omalley CRNP [address] [place] [address] Ines Castro, Community Health Economic Forecaster [address] [place] [address] 12/13/2023 11:20 AM EDT Office Visit Family Practice [address] [place] [address] [address] [facility] [place] [phone] Benny Waite, DO [address] [place] [address] 12/21/2023 11:00 AM EDT Nurse Only Ancillary [facility] [address] [place] [address] College, Nurse Annual Wellness Visit [address] [facility] [address] [place] [address] 01/12/2024 7:15 AM EDT Cardiac Studies Cardiac Studies, [facility] [address] [place] [address] 01/12/2024 8:30 AM EDT Office Visit Cardiology, [facility] [address] [place] [address] Franco Mcgregor MD [address] [place] [address] Health Maintenance Due Date Last Done Comments [...] this encounter Medical Devices Implanted Type Area [employer]astics Production Machine Operator Device Identifier Shelf Expiration Date Model / Serial / Lot Device Watchman Flx 35mm - [id number] Implanted:Qty: 1 on 02/05/2022 by Diamond Teran IV, MD at [facility] [employer] : INTRV CARD [id number] 10/20/2024 [id number] / / [id number] Cath Thermodilution 6fr - [id number] Implanted:Qty: 1 on 07/31/2022 by Franco Mcgregor MD at [facility] [employer] [id number] 04/30/2024 [id number] / / [id number] Mirtaclip G4 - [id number] Implanted:Qty: 1 on 11/16/2022 at [facility] [employer] 06/25/2023 [id number] / / [id number] Clip Delivery Sytem G4 Xtw - [id number] Implanted:Qty: 1 on 11/16/2022 at [facility] [employer] [id number] 08/10/2023 [id number] / / [id number] Clip Delivery Sytem G4 Xtw - [id number] Implanted:Qty: 1 on 11/16/2022 at [facility] [employer] [id number] 09/10/2023 [id number] / / [id number] documented as of this encounter Procedures Procedure Name Priority Date/Time Associated Diagnosis Comments XR CHEST 2 VIEWS Routine 09/28/2023 10:3 9 AM EDT Shortness of breath CHF (congestive heart failure), NYHA class I, chronic, diastolic (HCC) DIFFERENTIAL, AUTOMATED Routine 09/28/2023 9:33 AM EDT Shortness of breath CHF (congestive heart failure), NYHA class I, chronic, diastolic (HCC) BNP (NT-PROBNP) Routine 09/28/2023 9:33 AM EDT CHF (congestive heart failure), NYHA class I, chronic, diastolic (HCC) COMPREHENSIVE METABOLIC PANEL Routine 09/28/2023 9:33 AM EDT Shortness of breath CHF (congestive heart failure), NYHA class I, chronic, diastolic (HCC) CBC Routine 09/28/2023 9:33 AM EDT Shortness of breath CHF (congestive heart failure), NYHA class I, chronic, diastolic (HCC) CBC Routine 09/28/2023 9:33 AM EDT Shortness of breath CHF (congestive heart failure), NYHA class I, chronic, diastolic (HCC) documented in this encounter Results * XR CHEST 2 VIEWS (09/28/2023 10:39 AM EDT) Anatomical Region Laterality Modality Chest Digital Radiogra phy 09/28/2023 7:25 PM EDT Impressions 09/28/2023 7:23 PM EDT IMPRESSION No active disease. Narrative 09/28/2023 7:23 PM EDT EXAM XR CHEST 2 VIEWS - 09/28/2023 10:39 am HISTORY "shortness of breath" TECHNIQUE Frontal and lateral views of the chest were obtained. COMPARISON 07/05/2023 FINDINGS Stable cardiomediastinal silhouette. No acute consolidation. No pleural effusion or pneumothorax. Procedure Note Stefano Rossi MD - 09/28/2023 EXAM XR CHEST 2 VIEWS - 09/28/2023 10:39 am HISTORY "shortness of breath" TECHNIQUE Frontal and lateral views of the chest were obtained. COMPARISON 07/05/2023 FINDINGS Stable cardiomediastinal silhouette. No acute consolidation. No pleuraleffusion or pneumothorax. IMPRESSION IMPRESSION No active disease. Benny Waite DO RADIOLOGY (RAD GENER AL) * (ABNORMAL) DIFFERENTIAL, AUTOMATED (09/28/2023 9:33 AM EDT) WBC 8.65 4.00 - 10.80 K/uL 09/28/2023 3:39 PM EDT [facility] Neutrophils % 76.1(H) 40.0 - 75.0 % 09/28/2023 3:39 PM EDT [facility] Lymphocytes % 11.0(L) 18.0 - 42.0 % 09/28/2023 3:39 PM EDT [facility] Monocytes % 10.1 1.0 - 11.0 % 09/28/2023 3:39 PM EDT [facility] Eosinophils % 2.3 0.0 - 6.0 % 09/28/2023 3:39 PM EDT [facility] Basophils % 0.3 0.0 - 2.0 % 09/28/2023 3:39 PM EDT [facility] Immature Granulocytes % 0.2 0.0 - 2.0 % 09/28/2023 3:39 PM EDT [facility] Absolute Neutrophils 6.58 1.80 - 7.70 K/uL 09/28/2023 3:39 PM EDT [facility] Absolute Lymphocytes 0.95(L) 1.00 - 4.80 K/ul 09/28/2023 3:39 PM EDT [facility] Absolute Monocytes 0.87 0.00 - 1.10 K/uL 09/28/2023 3:39 PM EDT [facility] Absolute Eosinophils 0.20 0.00 - 0.70 K/uL 09/28/2023 3:39 PM EDT [facility] Absolute Basophils 0.03 0.00 - 0.20 K/uL 09/28/2023 3:39 PM EDT [facility] Absolute Immature Granulocytes 0.02 0.00 - 0.20 K/uL 09/28/2023 3:39 PM EDT [facility] Blood Venous blood specimen / Unknown Venipuncture / Unknown 09/28/2023 9:33 AM EDT 09/28/2023 9:33 AM EDT Benny Waite DO LAB BLOOD ORDERABLES [facility] [address] [place] [address] * CBC (09/28/2023 9:33 AM EDT) [facility] WBC 8.65 4.00 - 10.80 K/uL 09/28/2023 3:39 PM EDT [facility] RBC 4.22 4.50 - 5.25 M/uL 09/28/2023 3:39 PM EDT [facility] HGB 15.4 14.0 - 16.8 g/dL 09/28/2023 3:39 PM EDT [facility] HCT 44.3 40.0 - 48.4 % 09/28/2023 3:39 PM EDT [facility] MCV 105.0 82.0 - 99.5 fL 09/28/2023 3:39 PM EDT [facility] MCH 36.5 27.0 - 34.0 pg 09/28/2023 3:39 PM EDT LAB[facility]ATORY [facility] MCHC 34.8 32.0 - 36.0 g/dL 09/28/2023 3:39 PM EDT LAB[facility]ATORY [facility] RDW 13.8 11.5 - 15.5 % 09/28/2023 3:39 PM EDT LAB[facility]ORY [facility] PLT 199 140 - 400 K/uL 09/28/2023 3:39 PM EDT LAB[facility]ATORY [facility] MPV 10.3 6.6 - 11.1 fL 09/28/2023 3:39 PM EDT LAB[facility]ORY [facility] nRBCs 0 <=0 /100 WBCs 09/28/2023 3:39 PM EDT [facility]ORY [facility] Blood Venous blood specimen / Unknown Venipuncture / Unknown 09/28/2023 9:33 AM EDT 09/28/2023 9:33 AM EDT Benny Waite DO LAB BLOOD ORDERABLES [facility] [address] [place] [address] * (ABNORMAL) BNP, NT-PRO (09/28/2023 9:33 AM EDT) [facility] Signature BNP, NT-Pro 896(H) <300 pg/mL 09/28/2023 2:36 PM EDT LABORATORY [facility] Blood Venous blood specimen / Unknown Venipuncture / Unknown 09/28/2023 9:33 AM EDT 09/28/2023 9:33 AM EDT Narrative [facility]ATORY [facility] - 09/28/2023 2:36 PM EDT Exclude Heart Failure: <300 pg/mL Diagnose Heart Failure: Age <50 yr: >450 pg/mL 50-75 yr: >900 pg/mL >75 yr: >1800 pg/mL GFR is 30-59 mL/min: >1200 pg/mL or Age-adjusted values GFR <30 mL/min: do not use, not reliable Prognostic threshold: 1000 pg/mL Benny Waite DO LAB BLOOD ORDERABLES [facility] [address] [place] [address] * COMPREHENSIVE METABOLIC PANEL (09/28/2023 9:33 AM EDT) BUN 13 6 - 20 mg/dL 09/28/2023 2:36 PM EDT [facility] Creatinine 1.0 0.6 - 1.2 mg/dL 09/28/2023 2:36 PM EDT LABORATORY GM Estimated Glomerular Filtration Rate 71 >=60 mL/min 09/28/2023 2:36 PM EDT [facility] Comment:eGFR is calculated b ased on the CKD-EPI 2020 equation Sodium 141 135 - 146 mmol/L 09/28/2023 2:36 PM EDT [facility] Potassium 4.5 3.5 - 5.1 mmol/L 09/28/2023 2:36 PM EDT [facility] Chloride 106 98 - 107 mmol/L 09/28/2023 2:36 PM EDT [facility] CO2 27 22 - 32 mmol/L 09/28/2023 2:36 PM EDT [facility] Anion Gap 8 7 - 15 mmol/L 09/28/2023 2:36 PM EDT [facility] Glucose 92 70 - 120 mg/dL 09/28/2023 2:36 PM EDT [facility] Albumin 4.0 3.8 - 5.0 g/dL 09/28/2023 2:36 PM EDT [facility] AST 33 10 - 50 U/L 09/28/2023 2:36 PM EDT [facility] Alkaline Phosphatase 86 35 - 130 U/L 09/28/2023 2:36 PM EDT [facility] Bilirubin, Total 0.9 <=1.2 mg/dL 09/28/2023 2:36 PM EDT [facility] Calcium 9.3 8.4 - 10.2 mg/dL 09/28/2023 2:36 PM EDT [facility] Protein 6.5 6.0 - 8.3 g/dL 09/28/2023 2:36 PM EDT [facility] ALT 24 10 - 50 U/L 09/28/2023 2:36 PM EDT [facility] Blood Venous blood specimen / Unknown Venipuncture / Unknown 09/28/2023 9:33 AM EDT 09/28/2023 9:33 AM EDT Benny Waite DO LAB BLOOD ORDERABLES [facility] [address] [place] [address] documented in this encounter Visit Diagnoses Diagnosis Shortness of breath- Primary CHF (congestive heart failure), NYHA class I, chronic, diastolic (HCC) 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 and other lower urinary tract symptoms (LUTS) DEX (obstructive sleep apnea) Obstructive sleep apnea (adult) (pediatric) Lumbar degenerative disc disease Degeneration of lumbar or lumbosacral intervertebral disc Permanent atrial fibrillation (HCC) Atrial fibrillation Gout, arthropathy Gouty arthropathy, unspecified S/P MVR (mitral valve repair) Other postprocedural status Severe tricuspid regurgitation Diseases of tricuspid valve History of CVA (cerebrovascular accident) Transient ischemic attack (TIA), and cerebral infarction without residual deficits Atherosclerosis of te-[place]ak coronary artery of te-[place] heart without angina pectoris Presence of Watchman left atrial appendage closure device documented in this encounter Advance Directives Latest [...] and were consensually agreed upon. Care Teams Lcac Radar Operator/Navigator Relationship Specialty Start Date End Date Benny Waite DO [address] [place] [address] PCP - General Internal Medicine 04/03/21 documented as of this encounter
--- OUTSIDE RECORDS SUMMARY | 2023-12-04 10:23 | External Medical Summary ---
Author Name Unknown Address Unknown Organization K01:LABORATORY [facility] - [facility] [place] [address] Laboratory Report Ordering Provider Test Date Status NIKOS MISHRA 09/28/2023 09:33:01 Final Observation Date Value Abnormality Reference (Units ) Status BUN 09/28/2023 09:33:01 13 6-20 (mg/dL) Final Creatinine 09/28/2023 09:33:01 1.0 0.6-1.2 (mg/dL) Final Glomerular filtration rate/1.73 sq M.predicted [Volume Rate/Area] in Serum, Plasma or Blood by Creatinine-based formula (CKD-EPI) 09/28/2023 09:33:01 71 >=60 (mL/min) Final eGFR is calculated based on the CKD-EPI 2020 equation Sodium 09/28/2023 09:33:01 141 135-146 (m mol/L) Final Potassium 09/28/2023 09:33:01 4.5 3.5-5.1 (m mol/L) Final Cl 09/28/2023 09:33:01 106 98-107 (mm ol/L) Final CO2 09/28/2023 09:33:01 27 22-32 (mmo l/L) Final Anion gap 09/28/2023 09:33:01 8 7-15 (mmol /L) Final Glucose 09/28/2023 09:33:01 92 70-120 (mg /dL) Final Albumin 09/28/2023 09:33:01 4.0 3.8-5.0 (g /dL) Final AST (Aspartate aminotransferase) 09/28/2023 09:33:01 33 10-50 (U/L) Final Alk Phos 09/28/2023 09:33:01 86 35-130 (U/ L) Final Bilirubin, Total 09/28/2023 09:33:01 0.9 <=1 .2 (mg/dL) Final Calcium 09/28/2023 09:33:01 9.3 8.4-10.2 ( mg/dL) Final Protein 09/28/2023 09:33:01 6.5 6.0-8.3 (g /dL) Final ALT (Alanine aminotransferase) 09/28/2023 09:33:01 24 10-50 (U/L) Final Performing Location LABORATORY [facility] - [facility] [address]. [facility] [address]
--- OUTSIDE RECORDS SUMMARY | 2023-12-04 10:23 | External Medical Summary | Summary of Care ---
Author Name Unknown Organization [facility] Address [address] [place] [address] Phone [phone] Care Team Providers Care Screening Technician Name Role Phone Benny Waite DO Primary Care Provider [phone] Reason for Referral * Evaluate & Treat - Unlimited Visits (Within 10 days (routine)) - Pending Review Specialty Diagnoses / Procedures Referred By Elaina hernandez Referred To Contact Pain Management / Pain Medicine Diagnoses Lumbar degenerative disc disease Benny Waite DO [address] [place] [address] Referral ID Status Reason Start Date Expiration Date Visits Requested Visits Authorized [id number] Pending Review Specialty Services Required 10/12/2023 999 [...] pain if not done previously. Fax No. [facility] [phone] or contact front end developer [phone] Fax No. [facility] [phone] or contact front end developer [phone] Fax No. [facility] [phone] or contact front end developer [phone] * Evaluate & Treat - Unlimited Visits (Within 10 days (routine)) - Pending Review Specialty Diagnoses / Procedures Referred By Elaina hernandez Referred To Contact Podiatry Diagnoses Acquired deformity of toenail Benny Waite DO [address] [place] [address] Referral ID Status Reason Start Date Expiration Date Visits Requested Visits Authorized [id number] Pending Review Specialty Services Required 10/12/2023 999 [...] AM EDT Office Visit Family Practice [address] [place] [address], [place] [address] [place] [address] Benny Waite DO [address] [place] [address] CHF (congestive heart failure), NYHA class I, chronic, diastolic (HCC)*; DEX (obstructive sleep apnea); Permanent atrial fibrillation (HCC); Presence of Watchman left atrial appendage closure device; S/P MVR (mitral valve repair); Severe tricuspid regurgitation; Visual field loss, post-stroke; History of CVA (cerebrovascular accident); Acquired deformity of toenail; BPH with obstruction/lower urinary tract symptoms; Lumbar degenerative disc disease; Gout, arthropathy; Atherosclerosis of [place] coronary artery of [place] heart without angina pectoris; Shortness of breath [...] MVR (mitral valve repair) 11/16/2022 Atherosclerosis of [place] co 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 pectoris 08/11/2022 Severe tricuspid regurgitation 08/11/2022 Gout, arthropathy 07/20/2022 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 02/05/2022 Permanent atrial fibrillation 12/22/2021 Overview: Added automatically from request for surgery [id number] Last Assessment & Plan: S/p Watchman Current [...] No guns in the home. Continues buspar. [facility] Crisis number given to pt by [facility] health CM referral placed Moderate to [...] in the Comments) Remote Patient Monitoring Vendor: [facility] Device(s): Connected Scale Connected Pulse Ox Connected BP Cuff Self - Management Plan Double dose of Furosemide for 3 days Exacerbation Plan BMP Additional Comments: Euvolemic today. Pt requests [facility] scale, BP and pulse ox which was [...] MCG/0.3 mL, 12 YRS AND ABOVE, IM (Novogenie-ComirnatSwank) 04/16/2023 Covid-19, Mrna, Lnp-s, Pf, B ivalent, [...] 10/12/2023 8:33 AM EDT Pulse 88 10/12/2023 8:33 AM EDT Temperature 36.4 C (97.6 F) 10/12/2023 8:33 AM ED T Respiratory Rate - - Oxygen Saturation 93% 10/12/2023 8:33 AM EDT Inhaled Oxygen Concentration - - [...] this encounter Progress Notes * Benny Waite, DO - 10/12/2023 10:06 AM EDT SUBJECTIVE: Nikolas [...] failure), NYHA class I, chronic, diastolic (HCC) I50.32 Encounter for long-term (current) use of medications Z79.899 DEX (obstructive sleep apnea) G47.33 Moderate to severe mitral regurgitation I34.0 Lumbar degenerative disc disease M51.36 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) F32.1 Permanent atrial fibrillation (HCC) I48.21 Presence of Watchman left atrial appendage closure device Z95.818 Gout, arthropathy M10.9 Atherosclerosis of [place] co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 pectoris I25.10 Severe tricuspid regurgitation I07.1 S/P MVR (mitral valve repair) Z98.890 Sacroiliitis, not elsewhere classified (HCC) M46.1 Visual field loss, 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, H54.7 [...] of major depressive disorder without prior episode ([facility]) 07/09/2021 DDD (degenerative disc disease), lumbar Depression Gout, arthropathy 07/20/2022 History of CVA (cerebrovascular accident) 09/28/2023 Nonrheumatic mitral valve regurgitation 04/03/2021 Renal calculus Severe obesity with body mass index (BMI) of 35.0 to 39.9 with serious comorbidity ([facility]) 04/24/2022 Sleep apnea, obstructive Past Surgical History: Procedure Laterality Date CATARACT SURGERY,COMPLEX COLONOSCOPY, DIAGNOSTIC (RECTUM) 02/13/2021 diverticulosis, fair prep / [facility] COLORECTAL CANCER SCREEN; NOT AT RISK 04/04/2008 Diverticulosis CORONARY ANGIOGRAPHY W/RIGHT+LEFT CATH Bilateral 07/31/2022 CORONARY ANGIOGRAPHY W/RIGHT+LEFT CATH performed by Franco Mcgregor MD at [facility] CYSTOSCOPY 10/22/2011 CYSTOURETHROSCOPY performed by LIBERTAD FITZPATRICK at [facility] CYSTOSCOPY 09/13/2012 CYSTOURETHROSCOPY performed by Eliseo Menard MD at OR [facility] INJECT DX/THER SUBSTANCE INTERLAMINAR LUMBAR/SACRAL W IMAGE GUIDE 06/23/2021 INJECTION SPINE LUMBAR OR SACRAL performed by Anderson Easton DO at OR [facility] OTHER 02/13/1980 Dr. Vicente KOWALSKI surgery OTHER left hand reconstruction PERC CLOSURE TRANSCATH LEFT ATRIAL APPENDAGE W/ENDOCARDIAL IMPLANT N/A 02/05/2022 PERCUTANEOUS CLOSURE LEFT ATRIAL APPENDAGE IMPLANT performed by Diamond Teran IV, MD at [facility] PSA 06/14/2004 3.42 PSA 06/14/2005 3.72 PSA 02/13/2008 5.17 REMOVAL OF PROSTATE (TURP) 10/22/2011 TRANSURETHRAL RESECTION PROSTATE ELECTROSURGICAL performed by LIBERTAD FITZPATRICK at [facility] REMOVAL OF PROSTATE (TURP) 09/13/2012 TRANSURETHRAL RESECTION PROSTATE ELECTROSURGICAL performed by Eliseo Menard MD at OR [facility] REMOVE CATARACT, INSERT LENS [...] Franco Mcgregor MD at [facility] VITRECTOMY W/ REMOVE OF [...] OP Gout, arthropathy Continue Allopurinol Atherosclerosis of [place] coronary artery of [place] heart without angina pectoris Continue Metoprolol and ASA Shortness of breath - PULSE OX W/ REST/EXERCISE, MULTIPLE (OP) Follow-up: Return in about 2 weeks (around 10/26/2023), or if symptoms worsen or fail to improve. | Check-out note: See if Echo can be moved up. Schedule Podiatry. Benny Waite DO 10:06 AM 10/12/2023 documented in this encounter Nursing Notes * Marnie Bobo RN - 10/12/2023 8:27 AM EDT Return visit Still having some SOB with exertion. PUuse ox 89-93% ? fungal infection-more so on right great toe, but some on left great toe. documented in this encounter Plan of Treatment Upcoming Encounters Date Type Department Care Team (Late st Contact Info) Description 10/13/2023 10:00 AM EDT Scheduled Telephone Family Practice [facility], [address] [place] [address] [place], Nurse Fam Prac [address] [place] [address] 10/14/2023 8:30 AM EDT Home Visit [facility], [facility] 132 [facility] [place] [address] Mytrle Allen, RN 132 [place] [address] 10/15/2023 10:30 AM EDT Scheduled Telephone Family Practice [address] [place] [address] 293 [place] [phone] [place], Nurse Fam Prac [address] [address] 10/26/2023 11:00 AM EDT Telemedicine [facility], [facility] 132 [facility] [place] [address] Yadira Omalley CRNP 132 [place] [address] Ines Castro, Community Health Farmer [employer] [address] [place] [address] 10/29/2023 8:00 AM EDT Office Visit Family Practice [address] [place] [address] 293 [place] [address] Benny Waite, [address] [place] [address] 12/03/2023 3:30 PM EDT Office Visit [facility], [facility] 132 [facility] [place] [address] Luann Guerra PA-C 132 [facility] [place] [address] 12/13/2023 11:20 AM EDT Office Visit Family Practice 65 [facility] 293 [place] [address] Benny Waite, [address] [place] [address] 12/21/2023 11:00 AM EDT Nurse Only Ancillary 65 [facility] [address] [place] [address] College, Nurse Annual Wellness Visit [address] [place] [address] 01/12/2024 7:15 AM EDT Cardiac Studies Cardiac Studies, [facility] 132 [place] [address] 01/12/2024 8:30 AM EDT Office Visit Cardiology, [facility] 132 [place] [address] Franco Mcgregor MD [address] [place] [address] 02/15/2024 8:00 AM EDT Office Visit Cardiology, [facility] 132 [place] [address] Casimiro Barraza MD [address] [place] [address] Scheduled Orders Name Type Priority Associated Diagnoses [...] this encounter Medical Devices Implanted Type Area Roller Shop Supervisor Device Identifier Shelf Expiration Date Model / Serial / Lot Device Watchman Flx 35mm - [id number] Implanted:Qty: 1 on 02/05/2022 by Diamond Teran IV, MD at [facility] Parse : INTRV CARD [id number] 10/20/2024 [id number] / / [id number] Cath Thermodilution 6fr - [id number] Implanted:Qty: 1 on 07/31/2022 by Franco Mcgregor MD at [facility] [employer] [id number] 04/30/2024 [id number] / / [id number] Mirtaclip G4 - [id number] Implanted:Qty: 1 on 11/16/2022 at [facility] [employer] 06/25/2023 [id number] / / [id number] Clip Delivery Sytem G4 Xtw - [id number] Implanted:Qty: 1 on 11/16/2022 at [facility] [employer] [id number] 08/10/2023 [id number] / / [id number] Clip Delivery Sytem G4 Xtw - [id number] Implanted:Qty: 1 on 11/16/2022 at [facility] [employer] [id number] 09/10/2023 [id number] / / [id number] documented as of this encounter Visit [...] Gout, arthropathy Gouty arthropathy, unspecified Atherosclerosis of [place] coronary artery of [place] heart without angina pectoris Shortness of breath [...] and were consensually agreed upon. Care Teams Screening Technician Relationship Specialty Start Date End Date Benny Waite DO [address] [place] [address] PCP - General Internal Medicine 04/03/21 documented as of this encounter
--- OUTSIDE RECORDS SUMMARY | 2023-12-04 10:23 | External Medical Summary | Summary of Care ---
Author Name Unknown Organization [facility] Address [address] [facility] [address] Phone [phone] Care Team Providers Care Concrete Laborer Name Role Phone Benny Waite DO Primary Care Provider [phone] Reason for Visit * Reason Onset Date Comments Advice 10/05/2023 Encounter Details Date Type Department Care Team (Late st Contact Info) Description 10/05/2023 Telephone Family Practice 65 [facility] [address] [place] [address] Benny Waite DO [address] [place], [place] [id number] Advice (/) Allergies Active Allergy Reactions Criticality Noted Date Comments Adhesive Tape 02/04/2017 Duloxetine High 07/13/2023 Other Reaction(s): confusion Levofloxacin 09/01/2019 documented as of this encounter (statuses as of 10/08/2023) Medications Medication Sig Dispensed Refills Start Date [...] as of this encounter (statuses as of 10/08/2023) Active Problems Problem Noted Date Diagnosed Date [...] [facility] 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 Not on statin--LDL 89. Will defer to PCP to add statin--goal <70 BP at goal today. Sacroiliitis, not elsewhere classified 4 S/P MVR (mitral valve repair) 11/16/2022 Atherosclerosis of [place] co 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 pectoris 08/11/2022 Severe tricuspid regurgitation 08/11/2022 Gout, arthropathy 07/20/2022 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 02/05/2022 Permanent atrial fibrillation 12/22/2021 Overview: Added automatically from request for surgery [id number] Last Assessment & Plan: S/p Watchman Current [...] [place] Crisis number given to pt by [facility] health CM referral placed Moderate [...] the Comments) Remote Patient Monitoring Vendor: [facility] Device(s): Connected Scale Connected Pulse Ox Connected BP Cuff Self - Management Plan Double dose of Furosemide for 3 days Exacerbation Plan BMP Additional Comments: Euvolemic today. Pt requests [facility] scale, BP and pulse ox which was ordered. 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 documented as of this encounter (statuses as of 10/08/2023) Resolved Problems Problem Noted Date Diagnosed Date [...] as of this encounter (statuses as of 10/08/2023) Immunizations Name Administration Dates Next Due COVID-19 mRNA, LNP-s, No Pre serve, 2-Dose Series (Moderna) 08/20/2020,07/17/2020 COVID-19 mRNA, LNP-s, No Pre serve, 2-Dose Series ([employer]) 05/14/2021 COVID-19, LNP-s, No Preserve , Robbie-sucrose, [...] Telephone Encounter - Marnie Baker LPN - 10/05/2023 2:28 PM EDT Called, not able leave a message documented in this encounter Plan of Treatment Upcoming Encounters Date Type Department Care Team (Late st Contact Info) Description 10/14/2023 8:30 AM EDT Home Visit [facility] [address] [place] [address] Myrtle Allen RN [address] [place] [address] 10/26/2023 11:00 AM EDT Telemedicine [facility], [facility] [address] [place] [address] Yadira Omalley CRNP [address] [place] [address] Ines Castro, Community Health Oral Therapist [address] [place] [address] 12/13/2023 11:20 AM EDT Office Visit Family Practice [address] [place] [phone] Benny Waite, DO [address] [place] [address] 12/21/2023 11:00 AM EDT Nurse Only Ancillary 65 [facility] [address] [place] [address] College, Nurse Annual Wellness Visit [address] [address] 01/12/2024 7:15 AM EDT Cardiac Studies Cardiac Studies, [facility] [address] [place] [address] 01/12/2024 8:30 AM EDT Office Visit Cardiology, [facility] [address] [place] [address] Franco Mcgregor MD [address] [place], [place] [phone] Health Maintenance Due Date Last Done Comments [...] this encounter Medical Devices Implanted Type Area Pediatric Psychologist Device Identifier Shelf Expiration Date Model / Serial / Lot Device Watchman Flx 35mm - [id number] Implanted:Qty: 1 on 02/05/2022 by Diamond Teran IV, MD at [facility] Dom[employer] Income : INTRV CARD [id number] 10/20/2024 [id number] / / [id number] Cath Thermodilution 6fr - [id number] Implanted:Qty: 1 on 07/31/2022 by Franco Mcgregor MD at [facility] [employer] [id number] 04/30/2024 [id number] / / [id number] Mirtaclip G4 - [id number] Implanted:Qty: 1 on 11/16/2022 at [facility] [employer] 06/25/2023 [id number] / / [id number] Clip Delivery Sytem G4 Xtw - [id number] Implanted:Qty: 1 on 11/16/2022 at [facility] [employer] [id number] 08/10/2023 [id number] / / [id number] Clip Delivery Sytem G4 Xtw - [id number] Implanted:Qty: 1 on 11/16/2022 at [facility] [employer] [id number] 09/10/2023 [id number] / / [id number] documented as of this encounter Advance [...] and were consensually agreed upon. Care Teams Concrete Laborer Relationship Specialty Start Date End Date Benny Waite DO [address] [place] [address] PCP - General Internal Medicine 04/03/21 documented as of this encounter
--- OUTSIDE RECORDS SUMMARY | 2023-12-04 10:23 | External Medical Summary ---
Author Name Unknown Address Unknown Organization K01:LABORATORY [facility] - [facility] [address] [facility] [address] [place] [address] Laboratory Report Ordering Provider Test Date Status NIKOS MISHRA 09/28/2023 09:33:01 Final Observation Date Value Abnormality Reference (Units ) Status WBC, Total 09/28/2023 09:33:01 8.65 4.00-10.80 (K/uL) Final RBC 09/28/2023 09:33:01 4.22 4.50-5.25 (M/uL) Final Hemoglobin 09/28/2023 09:33:01 15.4 14.0-16.8 (g/dL) Final HCT 09/28/2023 09:33:01 44.3 40.0-48.4 (%) Final MCV 09/28/2023 09:33:01 105.0 82.0-99.5 (fL) Final MCH 09/28/2023 09:33:01 36.5 27.0-34.0 (pg) Final MCHC 09/28/2023 09:33:01 34.8 32.0-36.0 (g/dL) Final RDW 09/28/2023 09:33:01 13.8 11.5-15.5 (%) Final Platelets 09/28/2023 09:33:01 199 140-400 (K/uL) Final MPV 09/28/2023 09:33:01 10.3 6.6-11.1 (fL) Final Nucleated erythrocytes/100 leukocytes [Ratio] in Blood by Automated count 09/28/2023 09:33:01 0 <=0 (/100 WBCs) Final Performing Location LABORATORY [facility] - [address] [place] [address]
--- OUTSIDE RECORDS SUMMARY | 2023-12-04 10:23 | External Medical Summary | Summary of Care ---
Author Name Unknown Organization [facility] Address [address] [facility] [address] Phone [phone] Care Team Providers Care Pumper Brewery Name Role Phone Benny Waite DO Primary Care Provider [phone] Reason for Visit * Reason Comments Dosage Adjustment In Person (Anticoag Cl inic) Medication Management Encounter Details Date Type Department Care Team (Late st Contact Info) Description 09/28/2023 9:00 AM EDT Pharmacy Family Practice [address] [address] Huetter, Pharmacist [address] [address] Encounter for medication management* Allergies Active Allergy Reactions Criticality Noted [...] with [facility] 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 Not on statin--LDL 89. Will defer to PCP to add statin--goal <70 BP at goal today. 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 [facility] Crisis number given to pt by [facility] health referral placed Moderate to severe mitral [...] [facility] Device(s): Connected Scale Connected Pulse Ox Connected [...] mRNA, LNP-s, No Pre serve, 2-Dose Series ([employer]) 05/14/2021 COVID-19, LNP-s, No Preserve , Robbie-sucrose, Ages 12+ ([employer]) 11/04/2021 COVID-19, MRNA-LNP, 23-24, P F, 30 MCG/0.3 mL, 12 YRS AND ABOVE, IM ([facility]) 04/16/2023 Covid-19, Mrna, Lnp-s, Pf, B ivalent, 30 Mcg, IM, 12 yrs and above ([employer]) 03/17/2022 Pneumococcal Conjugate Vacc, 13 Valent (Prevnar) [...] as of this encounter Progress Notes * Hui Vo, Antonietta Taveras, [facility] - 09/28/2023 11:54 AM EDT Medication Therapy [facility] - Medication Reconciliation Nikolas Silvestre is an 83 year old being seen for medication reconciliation. PCP made multiple changes today - reviewed these with patient Prescription insurance information: SAUL summers Do you have any other prescription coverage: Yes, ZEHRA Preferred pharmacy: [facility] ([facility]) [x] Problem list reviewed [x] Allergies reviewed and updated if needed [x] Drug interaction check completed [x] HEDIS list addressed Immunizations: Up to Date Medication Organization/Adherence: Has home care nurse or caregiver: no Patient uses a pill box? Yes, refill(s) completed by self When you are at home, how often do you miss doses of medications? unknown How difficult is it for you to pay for your medications? Somewhat difficult How often do you experience side effects from your medications? unknown Labs/Vitals/Risk Scores: The ASCVD Risk score (Lul SUN, et al., 2019) failed to calculate for the following reasons: The 2019 ASCVD risk score is only valid for ages 40 to 79 The patient has a prior CT or stroke diagnosis BP Readings from Last 3 Encounters: 09/28/23 122/78 09/09/23 118/68 08/25/23 118/64 Recent Labs Units 07/02/22 0908 H[facility] 5.6 Recent Labs Units 08/05/23 1330 07/21/23 1404 07/05/23 1412 ESTIMATED GLOMERULAR FILTRATION RATE - [facility] mL/min 69 64 72 Serum creatinine: 1.1 mg/dL 08/05/23 1330 Estimated creatinine clearance: 55.6 mL/min Assessment & Plan: Medication discrepancies identified: none Dose/frequency of medications appropriate for current renal function? yes Other medication problems identified: confusion on medications. Low BP and fluid retension. Increased pain - all addressed by pcp today. Patient education provided: regarding med changes from PCP visit today - STOP lisinopril, increase furosemide and tramadol. Referral pended for follow up management of: N/A Depression - no medications BPH - finasteride CHF - on low dose metoprolol succinate, COLE stopped today, lasix increased Disc disease/Pain - tramadol, acetaminophen, gabapentin Afib/Valve disease - no anticoagulation due to watchman. ASCVD/Hx CVA - on baby aspirin, completed 30 days of clopidogrel. LDL not at goal < 70, not currently on statin. Neuro said to defer to PCP. Constipation - senna Summary- Changes & Recommendations: Med review completed and meds reviewed with patient. Provided chart below to help with medication changes. PCP to see patient again in 3 days - could consider initiation of statin for CVA per neuro as well as minimization/discontinuation of gabapentin with concurrent HF, especially in setting of current swelling. Repeat med rec visit in 1 year Antonietta Marroquin [facility] Clinical Pharmacist - Electric Motor Analyst Medication Therapy Management [facility] 09/28/2023, 11:54 AM Why you take it Medication Directions Morning Midday Evening Fluid Furosemide 20 MG Oral Tablet (Lasix) Take 1 Tablet by mouth in the morning. 1 tablet Pain traMADol HCl 50 MG Oral Tablet (Ultram) Take 1 Tablet by mouth in the morning and 1 Tablet at noon and 1 Tablet in the evening. 1 tablet 1 tablet 1 tablet Constipation Senna 8.6 MG Oral Capsule Take 8.6 mg by mouth daily. 1 tablet Heart Metoprolol Succinate ER 25 MG Oral Tablet Extended Release 24 Hour (toPROL XL) Take 1 Tablet by mouth daily. 1 tablet Pain Gabapentin 300 MG Oral Capsule (Neurontin) TAKE ONE CAPSULE BY MOUTH THREE TIMES A DAY 1 capsule 1 capsule 1 capsule Anxiety busPIRone HCl 5 MG Oral Tablet (Buspar) Take 1 Tablet by mouth in the morning and 1 Tablet before bedtime. 1 tablet 1 tablet Prostate Finasteride 5 MG Oral Tablet (Proscar) TAKE ONE TABLET BY MOUTH EVERY MORNING 1 tablet Gout Allopurinol 300 MG Oral Tablet (Zyloprim) Take 1 Tablet by mouth in the morning. 1 tablet Constipation Docusate Sodium 100 MG Oral Capsule Take 1 Capsule by mouth at noon and 1 Capsule in the evening. 1 capsule 1 capsule Heart Aspirin 81 MG Oral Tablet Chewable Take by mouth 1 Tablet in the morning. Do not start beforeAugus2021. 1 tablet Pain Acetaminophen 500 MG Oral Tablet TAKE 1 IN THE MORNING AND 2 IN THE EVENING as needed Breathing Proventil HFA 108 (90 Base) MCG/ACT Inhalation Aerosol Solution Inhale 2 Puffs by mouth 3times a day as needed for Dyspnea, Cough or Wheezing. as needed Dizziness Meclizine HCl 12.5 MG Oral Tablet (Antivert) Take 1 Tablet by mouth 2 times a day as needed for Dizziness. as needed STOP lisinopril Increase furosemide to every day Increase tramadol to three times a day documented in this encounter Plan of Treatment Upcoming Encounters Date Type Department Care Team (Late st Contact Info) Description 10/01/2023 10:40 AM EDT Office Visit Family [address] 293 [facility] [place] [address] Benny Waite, 293 [place] [address] 10/06/2023 2:20 PM EDT Office Visit Otolaryngology [facility] 132 [facility] [place] [address] George Ferrer PA-C [facility] [address] 10/08/2023 8:20 AM EDT Office Visit [facility] [address] [place] [address] 293 [facility] [place] [address] Benny Waite, 293 [place] [address] 10/14/2023 8:30 AM EDT [facility] Visit [facility] [place], [facility] [address] [place] [address] Myrtle [place], RN 132 [facility] [place] [address] 10/26/2023 11:00 AM EDT [facility]medicine [facility], [facility] [address] [place] [address] Yadira Omalley CRNP [facility] [address] Ines Castro, Community Health Administrator [address] [place] [address] 12/13/2023 11:20 AM EDT Office Visit Family Practice 65 [facility] 293 [place] [address] Benny Waite, 293 [place] [address] 12/21/2023 11:00 AM EDT Nurse Only Ancillary 65 [facility] 293 [place] [address] College, Nurse Annual Wellness Visit [address] [address] 01/12/2024 7:15 AM EDT Cardiac Studies Cardiac Studies, [facility] 132 [place] [address] 01/12/2024 8:30 AM EDT Office Visit Cardiology, [facility] 132 [place] [address] Franco Mcgregor MD [address] [place] [address] Health Maintenance Due Date Last Done Comments [...] this encounter Medical Devices Implanted Type Area Cath Laboratory Technician Device Identifier Shelf Expiration Date Model / Serial / Lot Device Watchman Flx 35mm - [id number] Implanted:Qty: 1 on 02/05/2022 by Diamond Teran IV, MD at [facility] [employer] : INTRV CARD [id number] 10/20/2024 [id number] / / [id number] Cath Thermodilution 6fr - [id number] Implanted:Qty: 1 on 07/31/2022 by Franco Mcgregor MD at [facility] [employer] [id number] 04/30/2024 [id number] / / [id number] Mirtaclip G4 - [id number] Implanted:Qty: 1 on 11/16/2022 at [facility] [employer] 06/25/2023 [id number] / / [id number] Clip Delivery Sytem G4 Xtw - [id number] Implanted:Qty: 1 on 11/16/2022 at [facility] [employer] [id number] 08/10/2023 [id number] / / [id number] Clip Delivery Sytem G4 Xtw - [id number] Implanted:Qty: 1 on 11/16/2022 at [facility] [employer] [id number] 09/10/2023 [id number] / / [id number] documented as of this encounter Visit Diagnoses Diagnosis Encounter for medication management- Primary Encounter for long-term (current) use of other medications documented in this encounter Advance Directives Latest [...] and were consensually agreed upon. Care Teams Pumper Brewery Relationship Specialty Start Date End Date Benny Waite DO 293 [place] [address] PCP - General Internal Medicine 04/03/21 documented as of this encounter
--- OUTSIDE RECORDS SUMMARY | 2023-12-04 10:23 | External Medical Summary | Summary of Care ---
Author Name Unknown Organization [facility] Address [address] [facility] [address] Phone [phone] Care Team Providers Care Detention Officer Name Role Phone Benny Waite DO Primary Care Provider [phone] Reason for Visit * Reason Onset Date Comments Appointment 10/01/2023 Encounter Details Date Type Department Care Team (Late st Contact Info) Description 10/01/2023 Telephone Family Practice [address] [place] [address] [place] [address] Benny Waite DO 293 [place], [place] [id number] Appointment Allergies Active Allergy Reactions Criticality Noted Date Comments Adhesive Tape 02/04/2017 Duloxetine High 07/13/2023 Other Reaction(s): confusion Levofloxacin 09/01/2019 documented as of this encounter (statuses as of 10/01/2023) Medications Medication Sig Dispensed Refills Start Date [...] as of this encounter (statuses as of 10/01/2023) Active Problems Problem Noted Date Diagnosed Date [...] [facility] 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 Not on statin--LDL 89. Will defer to PCP to add statin--goal <70 BP at goal today. Sacroiliitis, not elsewhere classified 4 S/P MVR (mitral valve repair) 11/16/2022 Atherosclerosis of [place] co 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 pectoris 08/11/2022 Severe tricuspid regurgitation 08/11/2022 Gout, arthropathy 07/20/2022 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 02/05/2022 Permanent atrial fibrillation 12/22/2021 Overview: Added automatically from request for surgery [id number] Last Assessment & Plan: S/p Watchman Current [...] No guns in the home. Continues buspar. [facility] Crisis number given to pt by [facility] health referral placed Moderate to severe mitral [...] [place] [facility] [place] Device(s): Connected Scale Connected Pulse Ox Connected BP Cuff Self - Management Plan Double dose of Furosemide for 3 days Exacerbation Plan BMP Additional Comments: Euvolemic today. Pt [place] [facility] [place], BP and pulse ox which was ordered. 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 documented as of this encounter (statuses as of 10/01/2023) Resolved Problems Problem Noted Date Diagnosed Date [...] as of this encounter (statuses as of 10/01/2023) Immunizations Name Administration Dates Next Due COVID-19 [...] Telephone Encounter - Marnie Bobo RN - 10/01/2023 8:23 AM EDT Pt has appt already scheduled for 10/08/23-no need to come to appt 10/07/23-pt notified and agreeableto appt 10/08/23. * Telephone Encounter - Marnie Bobo RN - 10/01/2023 8:14 AM EDT Pt called-states he needs to cancel his appt today. States he is doing much better-breathing improved. Told him I would talk to Dr Waite to see if he wants him to reschedule and would let him know. Spoke with Dr Waite-would like him to come in next week so we can monitor his blood work and see if any further changes in his medication need to be made. Spoke with pt-agreeable to appt next 10/07/23 at 8:40 AM-appt scheduled. documented in this encounter Plan of Treatment Upcoming Encounters Date Type Department Care Team (Late st Contact Info) Description 10/06/2023 2:20 PM EDT Office Visit Otolaryngology [facility] 132 [facility] [place] [address] George Ferrer PA-C 132 [place] [address] 10/08/2023 8:20 AM EDT Office Visit Family Practice [address] [place] [address] 293 [place] [address] Benny Waite, 293 [place] [address] 10/14/2023 8:30 AM EDT [facility] Visit [facility] [place], [facility] 132 [facility] [place] [address] Myrtle [place] RN 132 [place] [address] 10/26/2023 11:00 AM EDT Telemedicine [facility], [facility] 132 [facility] [place] [address] Yadira Omalley CRNP 132 [facility] [place] [address] Ines Castro, Community Health Procurement Manager [facility] [place] [address] 12/13/2023 11:20 AM EDT Office Visit Family Practice 65 [facility] 293 [place] [address] Benny Waite, DO 293 [place] [address] 12/21/2023 11:00 AM EDT Nurse Only Ancillary 65 [facility] 293 [place] [address] College, Nurse Annual Wellness Visit 65 [facility] 293 [place] [address] 01/12/2024 7:15 AM EDT Cardiac Studies Cardiac Studies, [facility] 132 [place] [address] 01/12/2024 8:30 AM EDT Office Visit Cardiology, [facility] 132 [place] [address] Franco Mcgregor MD [address] [place] [address] Health Maintenance Due Date Last [...] this encounter Medical Devices Implanted Type Area Environmental Remediation Engineer Device Identifier Shelf Expiration Date Model / Serial / Lot Device Watchman Flx 35mm - [id number] Implanted:Qty: 1 on 02/05/2022 by Diamond Teran IV, MD at [facility] [employer] : INTRV CARD [id number] 10/20/2024 [id number] / / [id number] Cath Thermodilution 6fr - [id number] Implanted:Qty: 1 on 07/31/2022 by Franco Mcgregor MD at [facility] [employer] [id number] 04/30/2024 [id number] / / [id number] Mirtaclip G4 - [id number] Implanted:Qty: 1 on 11/16/2022 at [facility] [employer] 06/25/2023 [id number] / / [id number] Clip Delivery Sytem G4 Xtw - [id number] Implanted:Qty: 1 on 11/16/2022 at [facility] [employer] [id number] 08/10/2023 [id number] / / [id number] Clip Delivery Sytem G4 Xtw - [id number] Implanted:Qty: 1 on 11/16/2022 at [facility] [employer] [id number] 09/10/2023 [id number] / / [id number] documented as of this encounter Advance [...] and were consensually agreed upon. Care Teams Detention Officer Relationship Specialty Start Date End Date Benny Waite DO [address] [place] [address] PCP - General Internal Medicine 04/03/21 documented as of this encounter
--- OUTSIDE RECORDS SUMMARY | 2023-12-04 10:23 | External Medical Summary | Summary of Care ---
Author Name Unknown Organization [facility] Address [address] [facility] [address] Phone [phone] Care Team Providers Care Counter Stitcher Name Role Phone Benny Waite DO Primary Care Provider [phone] Reason for Visit * Reason Onset Date Comments Appointment 10/01/2023 Encounter Details Date Type Department Care Team (Late st Contact Info) Description 10/01/2023 Telephone Family Practice [address], [place] [address] [place] [address] Benny Waite DO 293 [place], [place] [phone] Appointment Allergies Active Allergy Reactions Criticality Noted [...] [facility] 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 Not on statin--LDL 89. Will defer to PCP to add statin--goal <70 BP at goal today. Sacroiliitis, not elsewhere classified 4 S/P MVR (mitral valve repair) 11/16/2022 Atherosclerosis of [place] co 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 pectoris 08/11/2022 Severe tricuspid regurgitation 08/11/2022 Gout, arthropathy 07/20/2022 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 02/05/2022 Permanent atrial fibrillation 12/22/2021 Overview: Added automatically from request for surgery [id number] Last Assessment & Plan: S/p Watchman Current [...] guns in the home. Continues buspar. [facility] Crisis number given to pt by [facility] health referral placed Moderate to severe [...] [facility] Device(s): Connected Scale Connected Pulse Ox Connected BP Cuff Self - Management Plan Double dose of Furosemide for 3 days Exacerbation Plan BMP Additional Comments: Euvolemic today. Pt requests [facility] scale, BP and pulse ox which was [...] 10/06/2023 2:20 PM EDT Office Visit Otolaryngology [facility] 132 [facility] [place] [address] George Ferrer PA-C 132 [place] [address] 10/08/2023 8:20 AM EDT Office Visit Family Practice [address] [place] [address] 293 [place] [address] Benny Waite, 293 [place] [address] 10/14/2023 8:30 AM EDT [facility] Visit [facility] [place], [facility] 132 [facility] [place] [address] Myrtle [place] RN 132 [facility] [place] [address] 10/26/2023 11:00 AM EDT Telemedicine [facility], [facility] 132 [facility] [place] [address] Yadira Omalley CRNP 132 [facility] [place] [address] Ines Castro, Community Health Assistant Auto Center Manager [facility] [place] [address] 12/13/2023 11:20 AM EDT Office Visit Family Practice 65 [facility] 293 [place] [address] Benny Waite, DO 293 [place] [address] 12/21/2023 11:00 AM EDT Nurse Only Ancillary 65 [facility] 293 [place] [address] College, Nurse Annual Wellness Visit 65 [facility] 293 [place] [address] 01/12/2024 7:15 AM EDT Cardiac Studies Cardiac Studies, [facility] 132 [place] [address] 01/12/2024 8:30 AM EDT Office Visit Cardiology, [facility] 132 [place] [address] Franco Mcgregor MD [address] [place] [address] Health Maintenance Due Date Last [...] this encounter Medical Devices Implanted Type Area Foam Dispenser Device Identifier Shelf Expiration Date Model / Serial / Lot Device Watchman Flx 35mm - [id number] Implanted:Qty: 1 on 02/05/2022 by Diamond Teran IV, MD at [facility] [employer] : INTRV CARD [id number] 10/20/2024 [id number] / / [id number] Cath Thermodilution 6fr - [id number] Implanted:Qty: 1 on 07/31/2022 by Franco Mcgregor MD at [facility] [employer] [id number] 04/30/2024 [id number] / / [id number] Mirtaclip G4 - [id number] Implanted:Qty: 1 on 11/16/2022 at [facility] [employer] 06/25/2023 [id number] / / [id number] Clip Delivery Sytem G4 Xtw - [id number] Implanted:Qty: 1 on 11/16/2022 at [facility] [employer] [id number] 08/10/2023 [id number] / / [id number] Clip Delivery Sytem G4 Xtw - [id number] Implanted:Qty: 1 on 11/16/2022 at [facility] [employer] [id number] 09/10/2023 [id number] / / [id number] documented as of this encounter Advance [...] and were consensually agreed upon. Care Teams Counter Stitcher Relationship Specialty Start Date End Date Benny Waite DO [address] [place] [address] PCP - General Internal Medicine 04/03/21 documented as of this encounter
--- OUTSIDE RECORDS SUMMARY | 2023-12-04 10:24 | External Medical Summary | Summary of Care ---
Author Name Unknown Organization [facility] Address [address] [facility] [place] [address] Phone [phone] Care Team Providers Care Magnetic Tester Name Role Phone Danica Waite DO Primary Care Provider [phone] Reason for Visit * Reason Onset Date Comments [facility]: Maintenance 09/09/2023 Encounter Details Date Type Department Care Team (Late st Contact Info) Description 09/09/2023 Telephone [facility], [facility] [address] [facility] [place] [address] Myrtle Allen, RN [address] [place] [address] [facility]: Maintenance Allergies Active Allergy Reactions Criticality Noted Date Comments Adhesive Tape 02/04/2017 Duloxetine High 07/13/2023 Other Reaction(s): confusion Levofloxacin 09/01/2019 documented as of this encounter (statuses as of 09/10/2023) Medications Medication Sig Dispensed Refills Start Date [...] in the evening. 0 Active Neomycin-Polymyxin -HC 3.5-67847-9 Otic SolutionIndication s:Other infective acute otitis externa [...] as of this encounter (statuses as of 09/10/2023) Active Problems Problem Noted Date Diagnosed Date Rectal bleeding 08/11/2023 Last Assessment & Plan: Pt reports this is not new and ongoing for one year. Bright red, known hemorrhoids. Had CBC done 08/05 and normal, reports no increased bleeding since that lab draw or since taking plavix. [facility] 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 Not on statin--LDL 89. Will defer to PCP to add statin--goal <70 BP at goal today. 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 Continues buspar. [facility] Crisis number given to pt by [facility] CM referral placed Moderate to severe mitral [...] [facility] Device(s): Connected Scale Connected Pulse Ox Connected BP Cuff Self - Management Plan Double dose of Furosemide for 3 days Exacerbation Plan BMP Additional Comments: Euvolemic today. Pt requests [facility] scale, BP and pulse ox which was ordered. 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 documented as of this encounter (statuses as of 09/10/2023) Resolved Problems Problem Noted Date Diagnosed Date [...] as of this encounter (statuses as of 09/10/2023) Immunizations Name Administration Dates Next Due COVID-19 mRNA, LNP-s, No Pre serve, 2-Dose Series (Moderna) 08/20/2020,07/17/2020 COVID-19 mRNA, LNP-s, No Pre serve, 2-Dose Series (Pfizer) 05/14/2021 COVID-19, LNP-s, No Preserve , Robbie-sucrose, Ages 12+ (Pfizer) 11/04/2021 COVID-19, MRNA-LNP, 23-24, P F, 30 MCG/0.3 mL, 12 YRS AND ABOVE, IM ([facility]) 04/16/2023 Covid-19, Mrna, Lnp-s, Pf, B ivalent, 30 Mcg, IM, 12 yrs and above ([employer]) 03/17/2022 Pneumococcal Conjugate Vacc, 13 Valent (Prevnar) [...] Answer Date Recorded PHQ Adult Total Score 17 07/30/2023 Hunger Vital Sign Answer Date Recorded Within [...] encounter Miscellaneous Notes * Addendum Note - SulDanica wiley DO - 09/10/2023 3:51 PM EDTAddended by: DANICA WAITE on: 09/10/2023 03:51 PM Modules accepted: Orders * Telephone Encounter - Myrtle Allen RN - 09/10/2023 3:47 PM EDT Called and spoke with Nikolas. He is aware of the above. Let him know to call [facility] when inhaler arrives and [facility] nurse can stop out and show him how to use it. He verbalizes understanding. * Addendum Note - Marnie Baker LPN - 09/10/2023 1:49 PM EDTAddended by: MARNIE BAKER on: 09/10/2023 01:49 PM Modules accepted: Orders * Telephone Encounter - Marnie Baker LPN - 09/10/2023 1:49 PM EDT Will send to mail away. Will send to [facility] nurse to assist patient with training. * Telephone Encounter - Danica Waite DO - 09/09/2023 8:07 PM EDT Start albuterol two puffs three times a day as needed If no improvement in shortness of breath in 4 weeks would stop Albiuterol * Telephone Encounter - Ines Coates RN - 09/09/2023 2:51 PM EDT Spoke with primary RNMyrtle CARBAJAL RN. She feels that with some education, pt would be able to use an inhaler if one is ordered. * Telephone Encounter - Macy Carbajal OSA - 09/09/2023 2:32 PM EDT Returned call * Telephone Encounter - Marnie Baker LPN - 09/09/2023 2:05 PM EDT Called, not able to leave a message. Is there a device we can use with patient as he has one hand. Will send to nurse [facility] and pharmacy. Thank you * Telephone Encounter - Danica Waite DO - 09/09/2023 12:35 PM EDT See if patient will be able to use an inhaler. Shortness of breath is going to be present due to chronic cardiac disease * Telephone Encounter - Myrtle Allen RN - 09/09/2023 9:19 AM EDT Good morning, Pt reports he has SOB with exertion - has had for months - not getting worse but not getting better- wondering if anything more can be done Noted scattered wheezing of right lobes He has been using a cool mist humidifier at night and feels it helps some No acute cough - just a dry non productive cough in the mornings upon waking. Pulse ox 98% at rest and does not decrease much with ambulation. Is there any other recommendations for him? Would a prn inhaler be beneficial? Please advise. Thank you! documented in this encounter Plan of Treatment Upcoming Encounters Date Type Department Care Team (Late st Contact Info) Description 10/06/2023 2:20 PM EDT Office Visit Otolaryngology [facility] 132 [facility] [place] [address] George Ferrer PA-C 132 [facility] [place] [address] 10/08/2023 8:20 AM EDT Office Visit Family Practice [address] [place] [phone] Danica Waite, DO 293 [place] [address] 10/14/2023 8:30 AM EDT [facility] 132 [facility] [place] [address] Myrtle Allen RN 132 [facility] [address] 12/13/2023 11:20 AM EDT Office Visit Family Practice [address] [place] [address] 293 [place] [address] Danica Waite, DO 293 [place] [address] 12/21/2023 11:00 AM EDT Nurse Only Ancillary [address] [place] [address], [place] [address] College, Nurse Annual Wellness Visit [address] [place] [address], [place] [address] 01/12/2024 7:15 AM EDT Cardiac Studies Cardiac Studies, [facility] 132 [facility] [place] [address] 01/12/2024 8:30 AM EDT Office Visit Cardiology, [facility] [address] [facility] [place] [address] Franco Mcgregor MD [address] [facility] [place] [address] Health Maintenance Due Date Last Done Comments Depression, Most Recent Score >= 10 (will fire each visit until score < 10) 07/31/2023 07/30/2023 DTaP,Tdap,and Td Vaccines (2 - Td or [...] this encounter Medical Devices Implanted Type Area Forest Management Teacher Device Identifier Shelf Expiration Date Model / Serial / Lot Device Watchman Flx 35mm - [id number] Implanted:Qty: 1 on 02/05/2022 by Diamond Teran IV, MD at [facility] [employer] : INTRV CARD [id number] 10/20/2024 [id number] 50 / / [id number] Cath Thermodilution 6fr - [id number] Implanted:Qty: 1 on 07/31/2022 by Franco Mcgregor MD at [facility] [employer] [id number] 04/30/2024 [id number] / / [id number] Mirtaclip G4 - [id number] Implanted:Qty: 1 on 11/16/2022 at [facility] [employer] 06/25/2023 [id number] / / [id number] Clip Delivery Sytem G4 Xtw - [id number] Implanted:Qty: 1 on 11/16/2022 at [facility] [employer] [id number] 08/10/2023 [id number] / / [id number] Clip Delivery Sytem G4 Xtw - [id number] Implanted:Qty: 1 on 11/16/2022 at [facility] [employer] [id number] 09/10/2023 [id number] / / [id number] documented as of this encounter Advance [...] and were consensually agreed upon. Care Teams Magnetic Tester Relationship Specialty Start Date End Date Danica Waite DO [address] [place] [address] PCP - General Internal Medicine 04/03/21 documented as of this encounter
--- OUTSIDE RECORDS SUMMARY | 2023-12-04 10:24 | External Medical Summary | Summary of Care ---
Author Name Unknown Organization [facility] Address [address] [place] [facility] [place] [address] Phone [phone] Care Team Providers Care Senior Formulation Scientist Name Role Phone Benny Waite DO Primary Care Provider [phone] Reason for Visit * Reason Onset Date Comments Medication Problem 09/14/2023 Encounter Details Date Type Department Care Team (Late st Contact Info) Description 09/14/2023 Telephone Family Practice 65 [facility] 293 [place] [address] Benny Waite DO 293 [place], [place] [id number] Medication Problem Allergies Active Allergy Reactions Criticality Noted Date Comments Adhesive Tape 02/04/2017 Duloxetine High 07/13/2023 Other Reaction(s): confusion Levofloxacin 09/01/2019 documented as of this encounter (statuses as of 09/14/2023) Medications Medication Sig Dispensed Refills Start Date [...] in the evening. 0 Active Neomycin-Polymyxin -HC 3.5-63406-9 Otic SolutionIndication s:Other infective acute otitis externa [...] as of this encounter (statuses as of 09/14/2023) Active Problems Problem Noted Date Diagnosed Date Rectal bleeding 08/11/2023 Last Assessment & Plan: Pt reports this is not new and ongoing for one year. Bright red, known hemorrhoids. Had CBC done 08/05 and normal, reports no increased bleeding since that lab draw or since taking plavix. Will share note with PCP [facility] 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 Not on statin--LDL 89. Will defer to PCP to add statin--goal <70 BP at goal today. 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 Continues buspar. [facility] Crisis number given to pt by [facility] health CM referral placed Moderate to [...] the Comments) Remote Patient Monitoring Vendor: [facility] Device(s): Connected Scale Connected Pulse Ox Connected BP Cuff Self - Management Plan Double dose of Furosemide for 3 days Exacerbation Plan BMP Additional Comments: Euvolemic today. Pt requests [facility] scale, BP and pulse ox which was ordered. 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 documented as of this encounter (statuses as of 09/14/2023) Resolved Problems Problem Noted Date Diagnosed Date [...] as of this encounter (statuses as of 09/14/2023) Immunizations Name Administration Dates Next Due COVID-19 mRNA, LNP-s, No Pre serve, 2-Dose Series (Moderna) 08/20/2020,07/17/2020 COVID-19 mRNA, LNP-s, No Pre serve, 2-Dose Series (Pfizer) 05/14/2021 COVID-19, LNP-s, No Preserve , Robbie-sucrose, Ages 12+ (Pfizer) 11/04/2021 COVID-19, MRNA-LNP, 23-24, P F, 30 MCG/0.3 mL, 12 YRS AND ABOVE, IM ([facility]) 04/16/2023 Covid-19, Mrna, Lnp-s, Pf, B ivalent, 30 Mcg, IM, 12 yrs and above ([employer]) 03/17/2022 Pneumococcal Conjugate Vacc, 13 Valent (Prevnar) [...] Telephone Encounter - Marnie Baker LPN - 09/14/2023 1:11 PM EDT Spoke to patient, annie is going into home advised him to have her call me once he is there. Thank you * Telephone Encounter - Antonietta Nguyễn [facility] - 09/14/2023 12:24 PM EDT Checked mail order records. Patient was shipped 3 albuterol HFA inhalers and were delivered yesterday. Neither mail order or PCP office have nasal spray on file. 12:25 PM - called patient - no answer, no voicemail picked up. Antonietta Vo, Pharm D, BCACP Clinical Pharmacist [address] [facility] 09/14/2023, 12:25 PM Ph. [phone] * Telephone Encounter - Macy West OSA - 09/14/2023 11:53 AM EDT Pt calling to speak with Marnie or Antonietta. Pt states that he did receive the nasal spray but did not receive the inhalers. Please call him as she doesn't know what he should do. documented in this encounter Plan of Treatment Upcoming Encounters Date Type Department Care Team (Late st Contact Info) Description 09/14/2023 2:30 PM EDT Home Visit [facility] Coordination [facility] Integration [address] [place] [facility] [place] [address] [facility] Printer Apprentice [address] [place] [facility] [place] [address] 10/06/2023 2:20 PM EDT Office Visit Otolaryngology [facility] [address] [place] [address] George Ferrer PA-C [address] [place] [address] 10/08/2023 8:20 AM EDT Office Visit Family Practice [address] [phone] Benny Waite, DO 293 [place] [address] 10/14/2023 8:30 AM EDT Home Visit [facility] at [facility] 132 [facility] [place] [address] Myrtle Allen RN 132 [place] [address] 12/13/2023 11:20 AM EDT Office Visit Family Practice [address] [phone] Benny Waite, DO 293 [place] [address] 12/21/2023 11:00 AM EDT Nurse Only Ancillary [address] [address] College, Nurse Annual Wellness Visit [address] [address] 01/12/2024 7:15 AM EDT Cardiac Studies Cardiac Studies, [facility] 132 [facility] [place] [address] 01/12/2024 8:30 AM EDT Office Visit Cardiology, [facility] 132 [facility] [place] [address] Franco Mcgregor MD [address] [facility] [place] [address] Health Maintenance Due Date Last Done [...] this encounter Medical Devices Implanted Type Area Vertical Mill Operator Device Identifier Shelf Expiration Date Model / Serial / Lot Device Watchman Flx 35mm - [id number] Implanted:Qty: 1 on 02/05/2022 by Diamond Teran IV, MD at [facility] [employer] : INTRV CARD [id number] 10/20/2024 [id number] 50 / / [id number] Cath Thermodilution 6fr - [id number] Implanted:Qty: 1 on 07/31/2022 by Franco Mcgregor MD at [facility] [employer] [id number] 04/30/2024 [id number] / / [id number] Mirtaclip G4 - [id number] Implanted:Qty: 1 on 11/16/2022 at [facility] [employer] 06/25/2023 [id number] / / [id number] Clip Delivery Sytem G4 Xtw - [id number] Implanted:Qty: 1 on 11/16/2022 at [facility] [employer] [id number] 08/10/2023 [id number] TW / / [id number] Clip Delivery Sytem G4 Xtw - [id number] Implanted:Qty: 1 on 11/16/2022 at [facility] [employer] [id number] 09/10/2023 [id number] TW / / [id number] documented as of this encounter Advance [...] were consensually agreed upon. Care Teams Senior Formulation Scientist Relationship Specialty Start Date End Date Benny Waite DO [address] [place] [address] PCP - General Internal Medicine 04/03/21 documented as of this encounter
--- OUTSIDE RECORDS SUMMARY | 2023-12-04 10:24 | External Medical Summary | Summary of Care ---
Author Name Unknown Organization [facility] Address [address] [facility] [place] [address] Phone [phone] Care Team Providers Care Manufacturing Engineering Technician Name Role Phone Benny Waite DO Primary Care Provider [phone] Reason for Visit * Reason Onset Date Comments [facility]: Maintenance 09/09/2023 Encounter Details Date Type Department Care Team (Late st Contact Info) Description 09/09/2023 Telephone [facility], [facility] 132 [facility] [place] [address] Myrtle Allen, RN [address] [place] [address] [facility]: Maintenance Allergies Active Allergy [...] in the evening. 0 Active Neomycin-Polymyxin -HC 3.5-40156-3 Otic SolutionIndication s:Other infective acute otitis externa [...] the morning. 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 Continues buspar. [facility] Crisis number given to pt by [facility] referral placed Moderate to severe mitral regurgitation [...] [facility] [place] Device(s): Connected Scale Connected Pulse Ox Connected BP Cuff Self - Management Plan Double dose of Furosemide for 3 days Exacerbation Plan BMP Additional Comments: Euvolemic today. Pt requests [facility] scale, BP and pulse [...] MCG/0.3 mL, 12 YRS AND ABOVE, IM ([facility] 04/16/2023 Covid-19, Mrna, Lnp-s, Pf, B ivalent, 30 Mcg, IM, 12 yrs and above ([employer]) 03/17/2022 Pneumococcal Conjugate Vacc, 13 Valent (Prevnar) [...] encounter Miscellaneous Notes * Addendum Note - Marnie Baker LPN - 09/10/2023 1:49 PM EDTAddended by: MARNIE BAKER on: 09/10/2023 01:49 PM Modules accepted: Orders * Telephone Encounter - Marnie Baker LPN - 09/10/2023 1:49 PM EDT Will send to mail away. Will send to [facility] nurse to assist patient with training. * Telephone Encounter - Benny Waite DO - 09/09/2023 8:07 PM EDT Start albuterol two puffs three times a day as needed If no improvement in shortness of breath in 4 weeks would stop Albiuterol * Telephone Encounter - Ines Coates RN - 09/09/2023 2:51 PM EDT Spoke with primary RNCM, Myrtle Allen RN. She feels that with some education, [...] Telephone Encounter - Benny Waite DO - 09/09/2023 12:35 PM EDT [...] 10/06/2023 2:20 PM EDT Office Visit Otolaryngology [facility] [address] [address] George Ferrer PA-C [address] [place] [address] 10/08/2023 8:20 AM EDT Office Visit Family Practice [address] [place] [address] 293 [place] [address] Benny Waite DO 293 [place] [address] 10/14/2023 8:30 AM EDT Home Visit [facility] [address] [place] [address] Myrtle Allen RN 132 [place] [address] 12/13/2023 11:20 AM EDT Office Visit Family Practice 65 [facility] 293 [place] [address] Benny Waite, 293 [place] [address] 12/21/2023 11:00 AM EDT Nurse Only Ancillary 65 [facility] 293 [place] [address] College, Nurse Annual Wellness Visit 65 [facility] 293 [place] [address] 01/12/2024 7:15 AM EDT Cardiac Studies Cardiac Studies, [facility] 132 [place] [address] 01/12/2024 8:30 AM EDT Office Visit Cardiology, [facility] 132 [place] [address] Franco Mcgregor MD [address] [place] [address] Health Maintenance Due Date Last [...] encounter Medical Devices Implanted Type Area Insurance Processor Device Identifier Shelf Expiration Date Model / Serial / Lot Device Watchman Flx 35mm - [id number] Implanted:Qty: 1 on 02/05/2022 by Diamond Teran IV, [place] [facility] [employer] : INTRV CARD [id number] 10/20/2024 [id number] / / [id number] Cath Thermodilution 6fr - [id number] Implanted:Qty: 1 on 07/31/2022 by Franco Mcgregor MD at [facility] [employer] [id number] 04/30/2024 [id number] / / [id number] Mirtaclip G4 - [id number] Implanted:Qty: 1 on 11/16/2022 at [facility] [employer] 06/25/2023 [id number] / / [id number] Clip Delivery Sytem G4 Xtw - [id number] Implanted:Qty: 1 on 11/16/2022 at [facility] [employer] [id number] 08/10/2023 [id number] TW / / [id number] Clip Delivery Sytem G4 Xtw - [id number] Implanted:Qty: 1 on 11/16/2022 at [facility] [employer] [id number] 09/10/2023 [id number] / / [id number] documented as of this encounter Advance [...] and were consensually agreed upon. Care Teams Manufacturing Engineering Technician Relationship Specialty Start Date End Date Benny Waite DO 293 [place] [address] PCP - General Internal Medicine 04/03/21 documented as of this encounter
--- OUTSIDE RECORDS SUMMARY | 2023-12-04 10:24 | External Medical Summary | Summary of Care ---
Author Name Unknown Organization [facility] Address [address] [place] [address] Phone [phone] Care Team Providers Care Customs Appraiser Name Role Phone Benny Waite DO Primary Care Provider [phone] Encounter Details Date Type Department Care Team (Late st Contact Info) Description 09/14/2023 2:30 PM EDT Home Visit Care Coordination and Integration [address] [place] [address] Mira Nascimento, [facility] [address] [place] [address] Allergies Active Allergy Reactions Criticality Noted Date [...] in the evening. 0 Active Neomycin-Polymyxin -HC 3.5-89050-2 Otic SolutionIndication s:Other infective acute otitis externa [...] [facility] 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 Not on statin--LDL 89. Will defer to PCP to add statin--goal <70 BP at goal today. 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 02/05/2022 Permanent atrial fibrillation 12/22/2021 Overview: Added automatically from request for surgery [id number] Last Assessment & Plan: S/p Watchman Current [...] Hospital Crisis number given to pt by [facility] health referral placed Moderate to [...] MCG/0.3 mL, 12 YRS AND ABOVE, IM ([facility] 04/16/2023 Covid-19, Mrna, Lnp-s, Pf, B [...] of this encounter Progress Notes * Mira Nascimento, [facility] - 09/14/2023 4:27 PM EDT Telemedicine visit: No [facility] (REBEKAH) documentation: CHW completed hv that was supposed to be to trouble shoot the [facility] scale, however, when CHW arrived,pt said he wanted the scale gone from his house and handed the box to the CHW. CHW took the [facility] scale to the [facility] for [employer] black pickler. Ines Ramon RNCM was notified and made aware. Electronically signed by Mira Nascimento [facility] at 09/14/2023 4:34 PM EDT documented in this encounter Plan of Treatment Upcoming Encounters Date Type Department Care Team (Late st Contact Info) Description 10/06/2023 2:20 PM EDT Office Visit Otolaryngology [facility] [address] [facility] [place] [address] George Ferrer PA-C 132 [facility] [place] [address] 10/08/2023 8:20 AM EDT Office Visit Family Practice 65 [facility] 293 [facility], [place] [address] Benny Waite, 293 [place] [address] 10/14/2023 8:30 AM EDT Home Visit [facility] [address] [place] [address] Myrtle Allen RN 132 [place] [address] 12/13/2023 11:20 AM EDT Office Visit Family Practice 65 [facility] [address] [place] [address] Benny Waite, 293 [place] [address] 12/21/2023 11:00 AM EDT Nurse Only Ancillary 65 [facility] 293 [facility], [place] [address] College, Nurse Annual Wellness Visit [address] [facility] [address] [place] [facility] [place] [address] 01/12/2024 7:15 AM EDT Cardiac Studies Cardiac Studies, [facility] [address] [place] [address] 01/12/2024 8:30 AM EDT Office Visit Cardiology, [facility] 132 [place] [address] Franco Mcgregor MD [address] [place] [address] Health Maintenance Due Date Last [...] this encounter Medical Devices Implanted Type Area Tobacco Educator Device Identifier Shelf Expiration Date Model / Serial / Lot Device Watchman Flx 35mm - [id number] Implanted:Qty: 1 on 02/05/2022 by Diamond Teran IV, MD at [facility] [employer] : INTRV CARD [id number] 10/20/2024 [id number] / / [id number] Cath Thermodilution 6fr - [id number] Implanted:Qty: 1 on 07/31/2022 by Franco Mcgregor MD at [facility] [employer] [id number] 04/30/2024 [id number] / / [id number] Mirtaclip G4 - [id number] Implanted:Qty: 1 on 11/16/2022 at [facility] [employer] 06/25/2023 [id number] / / [id number] Clip Delivery Sytem G4 Xtw - [id number] Implanted:Qty: 1 on 11/16/2022 at [facility] [employer] [id number] 08/10/2023 [id number] / / [id number] Clip Delivery Sytem G4 Xtw - [id number] Implanted:Qty: 1 on 11/16/2022 at [facility] [employer] [id number] 09/10/2023 [id number] / / [id number] documented as of this encounter Advance [...] and were consensually agreed upon. Care Teams Customs Appraiser Relationship Specialty Start Date End Date Benny Waite DO [address] [place] [place] [address] PCP - General Internal Medicine 04/03/21 documented as of this encounter
--- OUTSIDE RECORDS SUMMARY | 2023-12-04 10:24 | External Medical Summary | Summary of Care ---
Author Name Unknown Organization [facility] Address [address] [facility] [place] [address] Phone [phone] Care Team Providers Care Produce Team Member Name Role Phone Benny Waite DO Primary Care Provider [phone] Reason for Visit * Reason Onset Date Comments [facility]: Maintenance 09/09/2023 Encounter Details Date Type Department Care Team (Late st Contact Info) Description 09/09/2023 Telephone [facility], [facility] 132 [facility] [place] [address] Myrtle Allen, RN [address] [place] [address] [facility]: Maintenance Allergies Active Allergy [...] in the evening. 0 Active Neomycin-Polymyxin -HC 3.5-16752-7 Otic SolutionIndication s:Other infective acute otitis externa [...] MVR (mitral valve repair) 11/16/2022 Atherosclerosis of [place] co 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 pectoris 08/11/2022 Severe tricuspid regurgitation 08/11/2022 Gout, arthropathy 07/20/2022 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 02/05/2022 Permanent atrial fibrillation 12/22/2021 Overview: Added automatically from request for surgery [id number] Last Assessment & Plan: S/p Watchman Current [...] No guns in the home. Continues buspar. [facility] Crisis number given to pt by [facility] referral placed Moderate to severe mitral regurgitation [...] MCG/0.3 mL, 12 YRS AND ABOVE, IM ([employer] [facility] 04/16/2023 Covid-19, Mrna, Lnp-s, Pf, B ivalent, 30 Mcg, IM, 12 yrs and above ([employer]) 03/17/2022 Pneumococcal Conjugate Vacc, 13 Valent (Prevnar) [...] the above. Let him know to call [facility] when inhaler arrives and [facility] nurse can stop out and show him how to use it. He verbalizes understanding. * Addendum Note - Marnie Baker LPN - 09/10/2023 1:49 PM EDTAddended by: MARNIE BAKER on: 09/10/2023 01:49 PM Modules accepted: Orders * Telephone Encounter - Marnie Baker LPN - 09/10/2023 1:49 PM EDT Will send to mail away. Will send to [facility] nurse to assist patient with training. [...] 10/06/2023 2:20 PM EDT Office Visit Otolaryngology [facility] [address] [place] [address] George Ferrer PA-C [address] [address] 10/08/2023 8:20 AM EDT Office Visit Family Practice [address] [place] [address] 293 [facility], [place] [address] Benny Waite DO 293 [facility], [place] [address] 10/14/2023 8:30 AM EDT Home Visit [facility], [facility] [address] [facility] [place] [address] Myrtle Allen, RN 132 [facility] [place] [address] 12/13/2023 11:20 AM EDT Office Visit Family Practice [address] [place] [address] 293 [place] [address] Benny Waite, [address] [place] [address] 12/21/2023 11:00 AM EDT Nurse Only Ancillary [address] [place] [address] College, Nurse Annual Wellness Visit [address] [place] [address] 01/12/2024 7:15 AM EDT Cardiac Studies Cardiac Studies, [facility] 132 [place] [address] 01/12/2024 8:30 AM EDT Office Visit Cardiology, [facility] 132 [place] [address] Franco Mcgregor MD [address] [place] [address] Health Maintenance Due Date Last [...] this encounter Medical Devices Implanted Type Area Apartment Manager Device Identifier Shelf Expiration Date Model / Serial / Lot Device Watchman Flx 35mm - [id number] Implanted:Qty: 1 on 02/05/2022 by Diamond Teran IV, MD at [facility] [employer] : INTRV CARD [id number] 10/20/2024 [id number] / / [id number] Cath Thermodilution 6fr - [id number] Implanted:Qty: 1 on 07/31/2022 by Franco Mcgregor MD at [facility] [employer] [id number] 04/30/2024 [id number] / / [id number] Mirtaclip G4 - [id number] Implanted:Qty: 1 on 11/16/2022 at [facility] [employer] 06/25/2023 [id number] / / [id number] Clip Delivery Sytem G4 Xtw - [id number] Implanted:Qty: 1 on 11/16/2022 at [facility] [employer] [id number] 08/10/2023 [id number] / / [id number] Clip Delivery Sytem G4 Xtw - [id number] Implanted:Qty: 1 on 11/16/2022 at [facility] [employer] [id number] 09/10/2023 [id number] / / [id number] documented as of this encounter Advance [...] and were consensually agreed upon. Care Teams Produce Team Member Relationship Specialty Start Date End Date Benny Waite DO 293 [place] [address] PCP - General Internal Medicine 04/03/21 documented as of this encounter
--- OUTSIDE RECORDS SUMMARY | 2023-12-04 10:24 | External Medical Summary | Summary of Care ---
Author Name Unknown Organization [facility] Address [address] [place] [address] Phone [phone] Care Team Providers Care Turntable Man Name Role Phone Benny Waite DO Primary Care Provider Reason for Referral * Evaluate & Treat - Unlimited Visits (Within 10 days (routine)) - Pending Review Specialty Diagnoses / Procedures Referred By Elaina hernandez Referred To Contact Oral/Maxillofacial Surgery / Oral Maxillary Surgery Diagnoses Lip lesion Benny Waite DO [address] [place] [address] Referral ID Status Reason Start Date Expiration Date Visits Requested Visits Authorized [id number] Pending Review Specialty Services Required 08/25/[phone] Question Answer Referral Priority Within 10 days (routine) Where should this appointment be scheduled? External Reason for Referral Other (Comment Below) Reason for Visit * Reason Comments Follow Up Encounter Details Date Type Department Care Team (Late st Contact Info) Description 08/25/2023 9:40 AM EDT Office Visit Family Practice [facility] [place] [address] [place] [address] Benny Waite DO [address] [place] [address] CHF (congestive heart failure), NYHA class I, chronic, diastolic (HCC)*; DEX (obstructive sleep apnea); Permanent atrial fibrillation (HCC); Presence of Watchman left atrial appendage closure device; Atherosclerosis of inaja coronary artery of inaja heart without angina pectoris; S/P MVR (mitral valve repair); Rectal bleeding; 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); BPH with obstruction/lower urinary tract symptoms; Lumbar degenerative disc disease; Lip lesion Allergies Active Allergy Reactions Criticality Noted Date [...] 1 Capsule in the evening. 0 Active Neomycin-Polymyxi n-HC 3.5-52246-3 Otic SolutionIndicatio ns:Other infective acute otitis externa of left ear [...] 08/09/2023 5 Active Senna 8.6 MG Oral CapsuleIndication s:Constipation, unspecified constipation type Take 8.6 mg by mouth daily. 0 08/12/2023 Active traMADol HCl 50 MG Oral Tablet (Ultram)Indicatio ns:Lumbar degenerative disc disease Take 1 Tablet by mouth in the morning and 1 Tablet before bedtime. 60 Tablet 0 08/25/2023 Active Lisinopril 2.5 MG Oral Tablet (Prinivil) Take 1 Tablet by mouth in the morning. 0 4 Discontinue d(Refill) Clopidogrel Bisulfate 75 MG Oral Tablet (Plavix)Indicatio ns:Visual field loss, post-stroke Take 1 Tablet by mouth in the morning. 30 Tablet 0 07/22/2023 4 Discontinue d(Medicatio n List Clean Up) traMADol HCl 50 MG Oral Tablet (Ultram)Indicatio ns:Lumbar degenerative disc disease Take 1 Tablet by mouth every 6 hours as needed for Pain, Severe. 30 Tablet 0 08/10/2023 4 Discontinue d(Refill) documented as of this [...] MVR (mitral valve repair) 11/16/2022 Atherosclerosis of [place] co 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 pectoris 08/11/2022 Severe tricuspid regurgitation 08/11/2022 Gout, arthropathy 07/20/2022 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 02/05/2022 Permanent atrial fibrillation 12/22/2021 Overview: Added automatically from request for surgery [id number] Last Assessment & Plan: S/p Watchman Current [...] No guns in the home. Continues buspar. [facility] Crisis number given to pt by [facility] health CM referral placed Moderate to [...] [facility] [place] Device(s): Connected Scale Connected Pulse Ox Connected BP Cuff Self - Management Plan Double dose of Furosemide for 3 days Exacerbation Plan BMP Additional Comments: Euvolemic today. Pt requests [facility] scale, BP and pulse ox which [...] mRNA, LNP-s, No Pre serve, 2-Dose Series ([employer] Watch) 05/14/2021 COVID-19, LNP-s, No Preserve , Robbie-sucrose, Ages 12+ (Pfizer) 11/04/2021 COVID-19, MRNA-LNP, 23-24, P F, 30 MCG/0.3 mL, 12 YRS AND ABOVE, IM ([employer]-Comirnaty) 04/16/2023 Covid-19, Mrna, Lnp-s, Pf, B ivalent, [...] Sign Reading Time Taken Comments Blood Pressure 118/64 08/25/2023 9:27 AM EDT Pulse 60 08/25/2023 9:27 AM EDT Temperature 36.4 C (97.5 F) 08/25/2023 9:27 AM ED T Respiratory Rate 18 08/25/2023 9:27 AM EDT Oxygen Saturation 95% 08/25/2023 9:27 AM EDT Inhaled Oxygen Concentration - - Weight 101.5 kg (223 lb 11.2 oz) 08/25/2023 9:27 AM EDT Height 170.8 cm (5' 7.25") 08/25/2023 9:27 AM ED T Body Mass Index 34.78 08/25/2023 9:27 AM EDT documented in this [...] encounter Progress Notes * Benny Waite, - 08/25/2023 10:49 AM EDT SUBJECTIVE: Nikolas Silvestre is a 83 year old male. Chief Complaint Patient presents with Follow Up HPI: Patient is an 83 year old male with a history of Atrial Fibrillation, Mitral Valve repair, Diastolic CHF, Sleep Apnea, BiPAP intolerance, Lumbar Disc Disease, SI joint arthritis, Internal Hemorrhoids, BPH, gout, right occipital CVA, and Watchman Device implant that is seen for follow up. Left eye vision loss is stable. Chronic shortness of breath is unchanged. Lumbar back pain that does not radiate is unchanged. No chest pain is present. Weight is stable but abdominal girth has enlarged. Patient has lip lesion that bleeds daily for over 1 year. Patient Active Problem List Diagnosis Code ADVANCE DIRECTIVE INFORMATION Elevated prostate specific antigen (PSA) R97.20 Macular puckering H35.379 BPH with obstruction/lower urinary tract symptoms N40.1, N13.8 CHF (congestive heart failure), NYHA class I, chronic, diastolic ([facility]) I50.32 Encounter for long-term (current) use of medications Z79.899 DEX (obstructive sleep apnea) G47.33 Moderate to severe mitral regurgitation I34.0 Lumbar degenerative disc disease M51.36 Current 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 ([facility]) F32.1 Permanent atrial fibrillation ([facility]) I48.21 Presence of Watchman left atrial appendage closure device Z95.818 Gout, arthropathy M10.9 Atherosclerosis of inaja co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 pectoris I25.10 Severe tricuspid regurgitation I07.1 S/P MVR (mitral valve repair) Z98.890 Sacroiliitis, not elsewhere classified ([facility]) M46.1 Visual field loss, 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 60 Tablet 0 Acetaminophen 500 MG Oral Tablet TAKE 1 IN THE MORNING AND 2 IN THE EVENING Aspirin 81 MG Oral Tablet Chewable Take by mouth 1 Tablet in the morning. Do not start before February 06, 2022. Docusate Sodium 100 MG Oral Capsule Take 1 Capsule by mouth at noon and 1 Capsule in the evening. Gxevrgjb-Qzuedjuvr-ZZ 3.5-44903-3 Otic Solution Administer 4 Drops into the left ear in the morningand 4 Drops at noon and 4 Drops before bedtime. To affected ear for 10 days (Patient not taking: Reported on 07/28/2023) 10 mL 0 Allopurinol 300 MG Oral Tablet (Zyloprim) Take 1 Tablet by mouth in the morning. 100 Tablet 3 Finasteride 5 MG Oral Tablet (Proscar) TAKE ONE TABLET BY MOUTH EVERY MORNING 100 Tablet 2 busPIRone HCl 5 MG Oral Tablet (Buspar) Take 1 Tablet by mouth in the morning and 1 Tablet before bedtime. 200 Tablet 3 Lisinopril 2.5 MG Oral Tablet (Prinivil) Take 1 Tablet by mouth in the morning. Furosemide 20 MG Oral Tablet (Lasix) Take 1 Tablet by mouth once a day on Wednesday, Wednesday, and Wednesday only. Clopidogrel Bisulfate 75 MG Oral Tablet (Plavix) Take 1 Tablet by mouth in the morning. 30 Tablet 0 Meclizine HCl 12.5 MG [...] Capsule Take 8.6 mg by mouth daily. No current facility-administered medications for this visit. [...] DIAGNOSTIC (RECTUM) 02/13/2021 diverticulosis, fair prep / [facility] COLOR[facility]AL CANCER SCREEN; NOT AT RISK 04/04/2008 Diverticulosis CORONARY ANGIOGRAPHY W/RIGHT+LEFT CATH Bilateral 07/31/2022 CORONARY ANGIOGRAPHY W/RIGHT+LEFT CATH performed by Franco Mcgregor MD at [facility] CYSTOSCOPY 10/22/2011 CYSTOURETHROSCOPY performed by LIBERTAD FITZPATRICK at OR [facility] CYSTOSCOPY 09/13/2012 CYSTOURETHROSCOPY performed by Eliseo Menard MD at OR [facility] INJECT DX/THER SUBSTANCE INTERLAMINAR LUMBAR/SACRAL W IMAGE GUIDE 06/23/2021 INJECTION SPINE LUMBAR OR SACRAL performed by Anderson Easton DO at OR [facility] OTHER 02/13/1980 Dr. Zhang DEX [...] ELECTROSURGICAL performed by LIBERTAD FITZPATRICK at OR [facility] REMOVAL OF PROSTATE (TURP) 09/13/2012 TRANSURETHRAL RESECTION PROSTATE ELECTROSURGICAL performed by Eliseo Menard MD at OR [facility] REMOVE CATARACT, INSERT LENS PROSTH OU REMOVE TONSILS & ADENOIDS, UNDER 12 SACROILIAC JOINT INJECT W/GUIDANCE 11/11/2022 INJECTION SACROILIAC JOINT performed by Anderson Easton DO at OR [facility] SACROILIAC JOINT INJECT W/GUIDANCE 02/10/2023 INJECTION SACROILIAC JOINT performed by Anderson Easton DO at OR [facility] SACROILIAC JOINT INJECT W/GUIDANCE 05/26/2023 INJECTION SACROILIAC JOINT performed by Anderson Easton DO at OR [facility] TRANSCATH REPAIR MITRAL VALVE, INITIAL Bilateral 11/16/2022 TRANSCATHETER MITRAL VALVE REPAIR performed by Franco Mcgregor MD at [facility] VITRECTOMY W/ REMOVE OF EPIRETINAL MEMBRANE 11/12/2008 Right eye Review of patient's allergies indicates: Allergen Reactions Duloxetine Other Reaction(s): confusion Adhesive Tape Levaquin [Levofloxacin] Review of Systems Constitutional: Positive for fatigue. Negative for appetite change and unexpected weight change. HENT: Negative for congestion, sore throat and trouble swallowing. Eyes: Positive for visual disturbance. Respiratory: Positive for shortness of breath. Negative for cough. Cardiovascular: Negative for chest pain, palpitations and leg swelling. Gastrointestinal: Positive for constipation. Negative for abdominal pain, blood in stool, diarrhea,nausea and vomiting. Genitourinary: Positive for frequency. Negative for dysuria and hematuria. Musculoskeletal: Positive for arthralgias, back pain and gait problem. Neurological: Negative for dizziness, syncope and headaches. Psychiatric/Behavioral: Negative for confusion, decreased concentration and sleep disturbance. OBJECTIVE: BP 118/64 | Pulse 60 | Temp 36.4 C (97.5 F) | Resp 18 | Ht 1.708 m (5' 7.25") | Wt 101.5 kg (223 lb 11.2 oz) | SpO2 95% | BMI 34.78 kg/m | BSA 2.19 m Physical Exam Vitals and nursing note reviewed. Constitutional: General: He is not in acute distress. Appearance: Normal appearance. He is not toxic-appearing. HENT: Head: Normocephalic and atraumatic. Mouth/Throat: Mouth: Mucous membranes are moist. Pharynx: No oropharyngeal exudate or posterior oropharyngeal erythema. Comments: Purple papular upper lip lesion is present Cardiovascular: Rate and Rhythm: Normal rate and [...] and Affect: Mood normal. Behavior: Behavior normal. Results for orders placed or performed in visit on 08/05/23 BASIC METABOLIC PANEL Result Value Ref Range BUN 13 6 - 20 mg/dL Creatinine 1.1 0.6 - 1.2 mg/dL Estimated Glomerular Filtration Rate 69 >=60 mL/min Sodium 145 135 - 146 mmol/L Potassium 4.2 3.5 - 5.1 mmol/L Chloride 106 98 - 107 mmol/L CO2 29 22 - 32 mmol/L Anion Gap 10 7 - 15 mmol/L Glucose 114 70 - 120 mg/dL Calcium 9.2 8.4 - 10.2 mg/dL ERYTHROCYTE SEDIMENTATION RATE (ESR) Result Value Ref Range ESR 8 <20 mm/hour CRP (INFLAMMATORY MARKER) Result Value Ref Range CRP (Inflammatory Marker) <3 <=5 mg/L CBC Result Value Ref Range WBC 5.94 4.00 - 10.80 K/uL RBC 4.36 4.50 - 5.25 M/uL HGB 15.8 14.0 - 16.8 g/dL HCT 47.2 40.0 - 48.4 % MCV 108.3 82.0 - 99.5 fL MCH 36.2 27.0 - 34.0 pg MCHC 33.5 32.0 - 36.0 g/dL RDW 14.3 11.5 - 15.5 % PLT 194 140 - 400 K/uL MPV 9.7 6.6 - 11.1 fL DIFFERENTIAL, AUTOMATED Result Value Ref Range WBC 5.94 4.00 - 10.80 K/uL Neutrophils % 71.0 40.0 - 75.0 % Lymphocytes % 15.7 (L) 18.0 - 42.0 % Monocytes % 11.1 (H) 1.0 - 11.0 % Eosinophils % 1.9 0.0 - 6.0 % Basophils % 0.3 0.0 - 2.0 % Absolute Neutrophils 4.22 1.80 - 7.70 K/uL Absolute Lymphocytes 0.93 (L) 1.00 - 4.80 K/ul Absolute Monocytes 0.66 0.00 - 1.10 K/uL Absolute Eosinophils 0.11 0.00 - 0.70 K/uL Absolute Basophils 0.02 0.00 - 0.20 K/uL *Note: Due to a large number of results and/or encounters for the requested time period, some results have not been displayed. A complete set of results can be found in Results Review. 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 Lip lesion - ORAL & MAXILLOFACIAL SURGERY REFERRAL OP Follow-up: Return in about 3 months (around 11/25/2023), or if symptoms worsen or fail to improve. |Check-out note: Schedule with Oral Surgery Benny Waite DO 10:51 AM 08/25/2023 documented in this encounter Plan of Treatment Upcoming Encounters Date Type Department Care Team (Late st Contact Info) Description 09/14/2023 2:30 PM EDT Home Visit Care Coordination and Integration [address] [place] [address] [facility] Sales Correspondence Clerk [address] [place] [address] 10/06/2023 2:20 PM EDT Office Visit Otolaryngology [facility] 132 [facility] [address] [facility] [place] [address] George Ferrer PA-C 132 [facility] [place] [address] 10/08/2023 8:20 AM EDT Office Visit [address] [place] [address] Benny Waite DO [address] [place] [address] 10/14/2023 8:30 AM EDT Home Visit [facility] [address] [place] [address] Myrtle Allen, RN [address] [facility] [place] [address] 12/13/2023 11:20 AM EDT Office Visit Family Practice 65 [facility] [address] [place] [address] Benny Waite, [address] [place] [address] 12/21/2023 11:00 AM EDT Nurse Only Ancillary 65 [facility] [address] [place] [address] College, Nurse Annual Wellness Visit [address] [address] 01/12/2024 7:15 AM EDT Cardiac Studies Cardiac Studies, [facility] 132 [place] [address] 01/12/2024 8:30 AM EDT Office Visit Cardiology, [facility] [address] [place] [address] Franco Mcgregor MD [address] [place] [address] Scheduled Referrals Name Type Priority Associated Diagnoses Order Schedule ORAL & MAXILLOFACIAL SURGERY REFERRAL OP Referral Within 10 days (routine) Lip lesion Ordered: 08/25/2023 Health Maintenance Due Date Last Done Comments [...] this encounter Medical Devices Implanted Type Area Commission Auditor Device Identifier Shelf Expiration Date Model / Serial / Lot Device Watchman Flx 35mm - [id number] Implanted:Qty: 1 on 02/05/2022 by Diamond Teran IV, MD at [facility] [employer] : INTRV CARD [id number] 10/20/2024 [id number] / / [id number] Cath Thermodilution 6fr - [id number] Implanted:Qty: 1 on 07/31/2022 by Franco Mcgregor MD at [facility] [employer] [id number] 04/30/2024 [id number] / / [id number] Mirtaclip G4 - [id number] Implanted:Qty: 1 on 11/16/2022 at [facility] [employer] 06/25/2023 [id number] / / [id number] Clip Delivery Sytem G4 Xtw - [id number] Implanted:Qty: 1 on 11/16/2022 at [facility] [employer] [id number] 08/10/2023 [id number] / / [id number] Clip Delivery Sytem G4 Xtw - [id number] Implanted:Qty: 1 on 11/16/2022 at [facility] [employer] [id number] 09/10/2023 [id number] / / [id number] documented as of this encounter Visit Diagnoses Diagnosis CHF (congestive heart failure), NYHA class I, chronic, diastolic (HCC)- Primary DEX (obstructive sleep apnea) Obstructive sleep apnea (adult) (pediatric) Permanent atrial fibrillation (HCC) Atrial fibrillation Presence of Watchman left atrial appendage closure device Atherosclerosis of inaja coronary artery of inaja heart without angina pectoris S/P MVR (mitral valve repair) Other postprocedural status Rectal bleeding Hemorrhage of rectum and anus 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 Care Teams Turntable Man Relationship Specialty Start Date End Date Benny Waite DO [address] [place] [address] PCP - General Internal Medicine 04/03/21 documented as of this encounter
--- OUTSIDE RECORDS SUMMARY | 2023-12-04 10:24 | External Medical Summary | Summary of Care ---
Author Name Unknown Organization [facility] Address [address] [facility] [place] [address] Phone [phone] Care Team Providers Care Marine Diesel Mechanic Name Role Phone Benny Waite DO Primary Care Provider [phone] Reason for Visit * Reason Onset Date Comments Appointment 09/27/2023 Encounter Details Date Type Department Care Team (Late st Contact Info) Description 09/27/2023 Telephone Cardiology, [facility] [address] [place] [address] Ale Leon CRNP [address] [place] [address] Appointment Allergies Active Allergy Reactions Criticality Noted [...] in the evening. 0 Active Neomycin-Polymyxin -HC 3.5-05525-2 Otic SolutionIndication s:Other infective acute otitis externa [...] [facility] 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 Not on statin--LDL 89. Will defer to PCP to add statin--goal <70 BP at goal today. 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 Continues buspar. [facility] Crisis number given to pt by [facility] Behavioral health CM referral placed Moderate [...] MCG/0.3 mL, 12 YRS AND ABOVE, IM ([facility]) 04/16/2023 Covid-19, Mrna, Lnp-s, Pf, B ivalent, 30 Mcg, IM, 12 yrs and above ([employer]) 03/17/2022 Pneumococcal Conjugate Vacc, 13 Valent (Prevnar) [...] encounter Miscellaneous Notes * Telephone Encounter - Su Barrett LPN - 09/27/2023 3:40 PM EDT Pt scheduled for both 01/12/24 * Telephone Encounter - Su Barrett LPN - 09/27/2023 3:27 PM EDT Provider note 06/2023 states echo in December 2023 prior to follow up with valve clinic. Neither are scheduled. Spoke with pt today asking when his follow up is. Please assist pt with scheduling. Orders for echo are placed. documented in this encounter Plan of Treatment Upcoming Encounters Date Type Department Care Team (Late st Contact Info) Description 09/28/2023 8:00 AM EDT Office Visit Family [address] 293 [place] [address] Benny Waite DO 293 [place] [address] 10/06/2023 2:20 PM EDT Office Visit Otolaryngology [facility] [address] [place] [address] George Ferrer PA-C [facility] [place] [address] 10/08/2023 8:20 AM EDT Office Visit [address] [facility], [place] [address] Benny Waite DO 293 [facility], [place] [address] 10/14/2023 8:30 AM EDT Home Visit juan pablo at [facility] [address] [place] [address] Myrtle Allen, RN [address] [place] [address] 10/26/2023 11:00 AM EDT Telemedicine [facility], [facility] 132 [facility] [place] [address] Yadira Omalley CRNP 132 [place] [address] Ines Castro, Community Health Knitting Tester [address] [place] [address] 12/13/2023 11:20 AM EDT Office Visit Family Practice 65 [facility] [address] [place] [address] Benny Waite, DO [address] [place] [address] 12/21/2023 11:00 AM EDT Nurse Only Ancillary 65 [facility] [address] [place] [address] College, Nurse Annual Wellness Visit [address] [address] 01/12/2024 7:15 AM EDT Cardiac Studies Cardiac Studies, [facility] 132 [place] [address] 01/12/2024 8:30 AM EDT Office Visit Cardiology, [facility] 132 [place] [address] Franco Mcgregor MD [address] [place], [place] [id number] Health Maintenance Due Date Last Done Comments [...] encounter Medical Devices Implanted Type Area Business Account Manager Device Identifier Shelf Expiration Date Model / Serial / Lot Device Watchman Flx 35mm - [id number] Implanted:Qty: 1 on 02/05/2022 by Diamond Teran IV, MD at [facility] [place] [employer] : INTRV CARD [id number] 10/20/2024 [id number] / / [id number] Cath Thermodilution 6fr - [id number] Implanted:Qty: 1 on 07/31/2022 by Franco Mcgregor MD at [facility] [place] [employer] [id number] 04/30/2024 [id number] / / [id number] Mirtaclip G4 - [id number] Implanted:Qty: 1 on 11/16/2022 at [facility] [place] [employer] 06/25/2023 [id number] / / [id number] Clip Delivery Sytem G4 Xtw - [id number] Implanted:Qty: 1 on 11/16/2022 at [facility] [place] [employer] [id number] 08/10/2023 [id number] / / [id number] Clip Delivery Sytem G4 Xtw - [id number] Implanted:Qty: 1 on 11/16/2022 at [facility] [place] [employer] [id number] 09/10/2023 [id number] / / [id number] documented as of this encounter Advance [...] were consensually agreed upon. Care Teams Marine Diesel Mechanic Relationship Specialty Start Date End Date Benny Waite DO [address] [place] [address] PCP - General Internal Medicine 04/03/21 documented as of this encounter
--- OUTSIDE RECORDS SUMMARY | 2023-12-04 10:24 | External Medical Summary | Summary of Care ---
Author Name Unknown Organization [facility] Address [address] [facility] [place] [address] Phone [phone] Care Team Providers Care Lead Dental Assistant Name Role Phone Benny Waite DO Primary Care Provider [phone] Reason for Visit * Reason Onset Date Comments [facility]: Maintenance 09/14/2023 Encounter Details Date Type Department Care Team (Late st Contact Info) Description 09/14/2023 Telephone [facility], [facility] 132 [facility] [place] [address] [facility], Nurse [facility] 132 [facility] [place] [address] [facility]: Maintenance Allergies Active Allergy [...] in the evening. 0 Active Neomycin-Polymyxin -HC 3.5-84790-3 Otic SolutionIndication s:Other infective acute otitis externa [...] to further evaluate tomorrow at [facility]. 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 Not on statin--LDL 89. Will defer to PCP to add statin--goal <70 BP at goal today. Sacroiliitis, not elsewhere classified 4 S/P MVR (mitral valve repair) 11/16/2022 Atherosclerosis of [place] co 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 pectoris 08/11/2022 Severe tricuspid regurgitation 08/11/2022 Gout, arthropathy 07/20/2022 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 02/05/2022 Permanent atrial fibrillation 12/22/2021 Overview: Added automatically from request for surgery [id number] Last Assessment & Plan: S/p Watchman Current [...] No guns in the home. Continues buspar. [facility] Crisis number given to pt by [facility] referral placed Moderate to severe mitral regurgitation [...] the Comments) Remote Patient Monitoring Vendor: [facility] Device(s): Connected Scale Connected Pulse Ox Connected BP Cuff Self - Management Plan Double dose of Furosemide for 3 days Exacerbation Plan BMP Additional Comments: Euvolemic today. Pt requests [facility] scale, BP and pulse [...] mRNA, LNP-s, No Pre serve, 2-Dose Series (Pax8) 05/14/2021 COVID-19, LNP-s, No Preserve , Orbbie-sucrose, Ages 12+ (Pfizer) 11/04/2021 COVID-19, MRNA-LNP, 23-24, P F, 30 MCG/0.3 mL, 12 YRS AND ABOVE, IM ([facility] 04/16/2023 Covid-19, Mrna, Lnp-s, Pf, B ivalent, 30 Mcg, IM, 12 yrs and above (Pax8) 03/17/2022 Pneumococcal Conjugate Vacc, 13 Valent (Prevnar) [...] Telephone Encounter - Yari Aponte RN - 09/14/2023 10:03 AM EDT Phone call from patient who reports [facility] keeps calling him about not getting readings. Patient inquiring if [facility] is able to see readings. [facility] dashboard reviewed, no transmissions noted. Patient is very frustrated that [facility] has not been receiving readings, states he recently went to hospital for epistaxis and has been checking BP 2x/day. BP has been fluctuating. Patient is frustrated that readings have not been coming through and is asking why [facility] or RNCM did not notify him of same.Patient states [facility] equipment is "junk" and would like to notify their engine assembly supervisor. Did attempt to explain that is why [facility] was contacting patient. Patient obtained BP while on phone 131/92 HR-74. He states weight is between 214-215 lbs He states he has spoken to [facility] and they want him to move it all around his house but he doesn't have very many places he can move it. Patient states he wants to know if equipment will work and if not, he does not want it. Offered to have CHW come out to home to troubleshoot. TT message sent to care team CHW Barney Castro for HV Yari Aponte RN, BSN [facility] manager field Navigator documented in this encounter Plan of Treatment Upcoming Encounters Date Type Department Care Team (Late st Contact Info) Description 10/06/2023 2:20 PM EDT [facility] [address] [place] [address] George Ferrer PA-C 132 [place] [address] 10/08/2023 8:20 AM EDT Office Visit Family Practice [address] [place] [address] [facility] [address] Benny Waite DO 293 [facility], [place] [address] 10/14/2023 8:30 AM EDT [facility] Visit [facility], [facility] 132 [place] [address] Myrtle Allen, RN 132 [place] [address] 12/13/2023 11:20 AM EDT Office Visit Family Practice 65 [facility] 293 [place] [address] Benny Waite, 293 [place] [address] 12/21/2023 11:00 AM EDT Nurse Only Ancillary 65 [facility] 293 [place] [address] College, Nurse Annual Wellness Visit [address] [place] [address] 01/12/2024 7:15 AM EDT Cardiac Studies Cardiac Studies, [facility] 132 [place] [address] 01/12/2024 8:30 AM EDT Office Visit Cardiology, [facility] 132 [place] [address] Franco Mcgregor MD [address] [place] [address] Health Maintenance Due Date Last [...] this encounter Medical Devices Implanted Type Area Tours Captain Device Identifier Shelf Expiration Date Model / Serial / Lot Device Watchman Flx 35mm - [id number] Implanted:Qty: 1 on 02/05/2022 by Diamond Teran IV, MD at [facility] [employer] : INTRV CARD [id number] 10/20/2024 [id number] 50 / / [id number] Cath Thermodilution 6fr - [id number] Implanted:Qty: 1 on 07/31/2022 by Franco Mcgregor MD at [facility] [employer] [id number] 04/30/2024 [id number] / / [id number] Mirtaclip G4 - [id number] Implanted:Qty: 1 on 11/16/2022 at [facility] [employer] 06/25/2023 [id number] / / [id number] Clip Delivery Sytem G4 Xtw - [id number] Implanted:Qty: 1 on 11/16/2022 at [facility] [employer] [id number] 08/10/2023 [id number] / / [id number] Clip Delivery Sytem G4 Xtw - [id number] Implanted:Qty: 1 on 11/16/2022 at [facility] [employer] [id number] 09/10/2023 [id number] / / [id number] documented as of this encounter Advance [...] and were consensually agreed upon. Care Teams Lead Dental Assistant Relationship Specialty Start Date End Date Benny Waite DO 293 [place] [address] PCP - General Internal Medicine 04/03/21 documented as of this encounter
--- OUTSIDE RECORDS SUMMARY | 2023-12-04 10:24 | External Medical Summary | Summary of Care ---
Author Name Unknown Organization [facility] Address [address] [facility] [place] [address] Phone [phone] Care Team Providers Care Senior Cost Estimator Name Role Phone Benny Waite DO Primary Care Provider [phone] Reason for Visit * Reason Onset Date Comments [facility]: Maintenance 09/17/2023 Encounter Details Date Type Department Care Team (Late st Contact Info) Description 09/17/2023 Telephone [facility], [facility] 132 [facility] [place] [address] [facility], Nurse [facility] 132 [facility] [place]ST[place] [address] [facility]: Maintenance Allergies Active Allergy Reactions Criticality Noted Date Comments Adhesive Tape 02/04/2017 Duloxetine High 07/13/2023 Other Reaction(s): confusion Levofloxacin 09/01/2019 documented as of this encounter (statuses as of 09/17/2023) Medications Medication Sig Dispensed Refills Start Date [...] in the evening. 0 Active Neomycin-Polymyxin -HC 3.5-48577-9 Otic SolutionIndication s:Other infective acute otitis externa [...] as of this encounter (statuses as of 09/17/2023) Active Problems Problem Noted Date Diagnosed Date Rectal bleeding 08/11/2023 Last Assessment & Plan: Pt reports this is not new and ongoing for one year. Bright red, known hemorrhoids. Had CBC done 08/05 and normal, reports no increased bleeding since that lab draw or since taking plavix. Will [facility] 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 Not on statin--LDL 89. Will defer to PCP to add statin--goal <70 BP at goal today. 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 Continues buspar. [facility] Crisis number given to pt by [facility] referral placed Moderate to severe mitral regurgitation [...] as of this encounter (statuses as of 09/17/2023) Resolved Problems Problem Noted Date Diagnosed Date [...] as of this encounter (statuses as of 09/17/2023) Immunizations Name Administration Dates Next Due COVID-19 mRNA, LNP-s, No Pre serve, 2-Dose Series (Moderna) 08/20/2020,07/17/2020 COVID-19 mRNA, LNP-s, No Pre serve, 2-Dose Series ([employer]) 05/14/2021 COVID-19, LNP-s, No Preserve , Robbie-sucrose, Ages 12+ (Pfizer) 11/04/2021 COVID-19, MRNA-LNP, 23-24, P F, 30 MCG/0.3 mL, 12 YRS AND ABOVE, IM ([facility]) 04/16/2023 Covid-19, Mrna, Lnp-s, Pf, B ivalent, 30 Mcg, IM, 12 yrs and above ([employer]) 03/17/2022 Pneumococcal Conjugate Vacc, 13 Valent [...] Telephone Encounter - Claribel Quiles RN - 09/17/2023 9:42 AM EDT Call received from the pt. States that he got 2 [facility] scales in the mail this week. Pt asking what heshould do with them. Advised pt to set up one of the scales and if it works properly GA can come and pickling operator the extra scale. Pt verbalized understanding. Will call back with any issues and to make GA aware the scale is set up. documented in this encounter Plan of Treatment Upcoming Encounters Date Type Department Care Team (Late st Contact Info) Description 10/06/2023 2:20 PM EDT Office Visit Otolaryngology [facility] 132 [facility] Willie [facility] [place] [address] George Ferrer PA-C [address] [place] [address] 10/08/2023 8:20 AM EDT Office Visit Family Practice [address] [place] [address] 293 [place] [address] Benny Waite, [address] [place] [address] 10/14/2023 8:30 AM EDT Home Visit [facility] 132 [facility] [place] [address] Myrtle Allen RN [address] [place] [address] 12/13/2023 11:20 AM EDT Office Visit Family Practice [address] [place] [address] 293 [place] [address] Benny Waite, 293 [place] [address] 12/21/2023 11:00 AM EDT Nurse Only Ancillary [address] [place], [place] [address] [place] [address] College, Nurse Annual Wellness Visit [facility] 293 [place] [address] 01/12/2024 7:15 AM EDT Cardiac Studies Cardiac Studies, [facility] 132 [place] [address] 01/12/2024 8:30 AM EDT Office Visit Cardiology, [facility] 132 [place] [address] Franco Mcgregor MD [address] [place] [address] Health Maintenance Due Date Last Done Comments [...] this encounter Medical Devices Implanted Type Area Corn Husker Machine Operator Device Identifier Shelf Expiration Date Model / Serial / Lot Device Watchman Flx 35mm - [id number] Implanted:Qty: 1 on 02/05/2022 by Diamond Teran IV, MD at [facility] [employer] : INTRV CARD [id number] 10/20/2024 [id number] 50 / / [id number] Cath Thermodilution 6fr - [id number] Implanted:Qty: 1 on 07/31/2022 by Franco Mcgregor MD at [facility] [employer] [id number] 04/30/2024 [id number] / / [id number] Mirtaclip G4 - [id number] Implanted:Qty: 1 on 11/16/2022 at [facility] [employer] 06/25/2023 [id number] / / [id number] Clip Delivery Sytem G4 Xtw - [id number] Implanted:Qty: 1 on 11/16/2022 at [facility] [employer] [id number] 08/10/2023 [id number] / / [id number] Clip Delivery Sytem G4 Xtw - [id number] Implanted:Qty: 1 on 11/16/2022 at [facility] [employer] [id number] 09/10/2023 [id number] / / [id number] documented as of this encounter Advance [...] were consensually agreed upon. Care Teams Senior Cost Estimator Relationship Specialty Start Date End Date Benny Waite DO 293 [facility], [place] [address] PCP - General Internal Medicine 04/03/21 documented as of this encounter
--- OUTSIDE RECORDS SUMMARY | 2023-12-04 10:24 | External Medical Summary | Summary of Care ---
Author Name Unknown Organization [facility] Address [address] [facility] [address] Phone [phone] Care Team Providers Care Sheep Clipper Name Role Phone Benny Waite DO Primary Care Provider [phone] Encounter Details Date Type Department Care Team (Late st Contact Info) Description [facility]2023 [facility] [address] [place] [address] Isela Obrien PA-C 174 [facility] JON [place] [address] Allergies Active Allergy Reactions Criticality Noted Date Comments Adhesive Tape 02/04/2017 Duloxetine High 07/13/2023 Other Reaction(s): confusion Levofloxacin 09/01/2019 documented as of this encounter (statuses as of 09/13/2023) Medications Medication Sig Dispensed Refills Start Date [...] in the evening. 0 Active Neomycin-Polymyxin -HC 3.5-87083-3 Otic SolutionIndication s:Other infective acute otitis externa [...] as of this encounter (statuses as of 09/13/2023) Active Problems Problem Noted Date Diagnosed Date [...] [facility] 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 Not on statin--LDL 89. Will defer to PCP to add statin--goal <70 BP at goal today. 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 Continues buspar. [facility] Crisis number given to pt by [facility] health referral placed Moderate to severe mitral [...] in the Comments) Remote Patient Monitoring Vendor: [facility] Device(s): Connected Scale Connected Pulse Ox Connected BP Cuff Self - Management Plan Double dose of Furosemide for 3 days Exacerbation Plan BMP Additional Comments: Euvolemic today. Pt requests [facility] scale, BP and pulse ox which was ordered. 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 documented as of this encounter (statuses as of 09/13/2023) Resolved Problems Problem Noted Date Diagnosed Date [...] as of this encounter (statuses as of 09/13/2023) Immunizations Name Administration Dates Next Due COVID-19 mRNA, LNP-s, No Pre serve, 2-Dose Series (Moderna) 08/20/2020,07/17/2020 COVID-19 mRNA, LNP-s, No Pre serve, 2-Dose Series (Pfizer) 05/14/2021 COVID-19, LNP-s, No Preserve , Robbie-sucrose, Ages 12+ (Pfizer) 11/04/2021 COVID-19, MRNA-LNP, 23-24, P F, 30 MCG/0.3 mL, 12 YRS AND ABOVE, IM ([facility]) 04/16/2023 Covid-19, Mrna, Lnp-s, Pf, B ivalent, 30 Mcg, IM, 12 yrs and above ([employer]) 03/17/2022 Pneumococcal Conjugate Vacc, 13 Valent (Prevnar) [...] encounter Miscellaneous Notes * Telephone Encounter - Isela Obrien PA-C - 09/13/2023 12:47 PM EDT Patient spelled last name and verbalized birthdate to verify identity. Called to ask when and where next appt is on 10/06/23. Discussed w pt,no other questions documented in this encounter Plan of Treatment Upcoming Encounters Date Type Department Care Team (Late st Contact Info) Description 10/06/2023 2:20 PM EDT Office Visit Otolaryngology [facility] [address] [place] [address] George Ferrer PA-C [address] [place] [address] 10/08/2023 8:20 AM EDT Office Visit Family Practice [address] [place] [address] 293 [facility] [place] [address] Benny Waite, 293 [facility], [place] [address] 10/14/2023 8:30 AM EDT Home Visit [facility] [address] [place] [address] Myrtle Allen RN [facility] [place] [address] 12/13/2023 11:20 AM EDT Office Visit Family Practice [address] [place] [address] 293 [facility], [place] [address] Benny Waite, 293 [facility], [place] [address] 12/21/2023 11:00 AM EDT Nurse Only Ancillary 65 [facility] 293 [facility], [place] [address] College, Nurse Annual Wellness Visit [address] [address] 01/12/2024 7:15 AM EDT Cardiac Studies Cardiac Studies, [facility] 132 [facility] [place]ST[place] [address] 01/12/2024 8:30 AM EDT Office Visit Cardiology, [facility] 132 [facility] [place] [address] Franco Mcgregor MD [address] [place] [address] Health Maintenance Due Date Last [...] this encounter Medical Devices Implanted Type Area Pipe Installer Device Identifier Shelf Expiration Date Model / Serial / Lot Device Watchman Flx 35mm - [id number] Implanted:Qty: 1 on 02/05/2022 by Diamond Teran IV, MD [place] [facility] [employer] : INTRV CARD [id number] 10/20/2024 [id number] 50 / / [id number] Cath Thermodilution 6fr - [id number] Implanted:Qty: 1 on 07/31/2022 by Franco Mcgregor MD at [facility] [employer] [id number] 04/30/2024 [id number] / / [id number] Mirtaclip G4 - [id number] Implanted:Qty: 1 on 11/16/2022 at [facility] [employer] 06/25/2023 [id number] / / [id number] Clip Delivery Sytem G4 Xtw - [id number] Implanted:Qty: 1 on 11/16/2022 at [facility] [employer] [id number] 08/10/2023 [id number] / / [id number] Clip Delivery Sytem G4 Xtw - [id number] Implanted:Qty: 1 on 11/16/2022 at [facility] [employer] [id number] 09/10/2023 [id number] / / [id number] documented as of this encounter Advance [...] and were consensually agreed upon. Care Teams Sheep Clipper Relationship Specialty Start Date End Date Benny Waite DO [address] [place] [address] PCP - General Internal Medicine 04/03/21 documented as of this encounter
--- OUTSIDE RECORDS SUMMARY | 2023-12-04 10:24 | External Medical Summary | Summary of Care ---
Author Name Unknown Organization [facility] Address [address] [place] [address] Phone [phone] Care Team Providers Care Reservationist Name Role Phone Benny Waite DO Primary Care Provider [phone] Reason for Visit * Reason Onset Date Comments Appointment 09/20/2023 Encounter Details Date Type Department Care Team (Late st Contact Info) Description 09/20/2023 Telephone [facility], [facility] [address] [facility] [place] [address] Services, Scheduling [address] [place] [address] Appointment (//) Allergies Active Allergy Reactions Criticality Noted Date Comments Adhesive Tape 02/04/2017 Duloxetine High 07/13/2023 Other Reaction(s): confusion Levofloxacin 09/01/2019 documented as of this encounter (statuses as of 09/20/2023) Medications Medication Sig Dispensed Refills Start Date [...] in the evening. 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 [facility] Crisis number given to pt by [facility] health CM referral placed Moderate to [...] as of this encounter (statuses as of 09/20/2023) Resolved Problems Problem Noted Date Diagnosed Date [...] as of this encounter (statuses as of 09/20/2023) Immunizations Name Administration Dates Next Due COVID-19 mRNA, LNP-s, No Pre serve, 2-Dose Series (Moderna) 08/20/2020,07/17/2020 COVID-19 mRNA, LNP-s, No Pre serve, 2-Dose Series (Pfizer) 05/14/2021 COVID-19, LNP-s, No Preserve , Robbie-sucrose, Ages 12+ (FriendCode) 11/04/2021 COVID-19, MRNA-LNP, 23-24, P F, 30 MCG/0.3 mL, 12 YRS AND ABOVE, IM ([facility]) 04/16/2023 Covid-19, Mrna, Lnp-s, Pf, B ivalent, 30 Mcg, IM, 12 yrs and above (FriendCode) 03/17/2022 Pneumococcal Conjugate Vacc, 13 Valent (Prevnar) [...] encounter Miscellaneous Notes * Telephone Encounter - Amaya Menard OSA - 09/20/2023 9:45 AM EDT Per Request to schedule 3 month telemed... Called s/w pt he advised 10/25 at 11:00am is a good date and time. documented in this encounter Plan of Treatment Upcoming Encounters Date Type Department Care Team (Late st Contact Info) Description 10/06/2023 2:20 PM EDT Office Visit Otolaryngology [facility] [address] [facility] [place] [address] George Ferrer PA-C 132 [facility] [place] [address] 10/08/2023 8:20 AM EDT Office Visit Family Practice [address] [place] [address] 293 [place] [address] Benny Waite, [address] [place] [address] 10/14/2023 8:30 AM EDT [facility] Visit [facility], [facility] [address] [facility] [place] [address] Myrtle Allen, RN 132 [place] [address] 10/26/2023 11:00 AM EDT Telemedicine [facility], [facility] [address] [facility] [place] [address] Yadira Omalley CRNP 132 [place] [address] Ines Castro, Community Health Station Repairer [address] [place] [address] 12/13/2023 11:20 AM EDT Office Visit [address] [place] [address] Benny Waite, [address] [place] [address] 12/21/2023 11:00 AM EDT Nurse Only Ancillary [address] [facility] [place] [address] [place] [address] College, Nurse Annual Wellness Visit [address] [facility] 293 [place] [address] 01/12/2024 7:15 AM EDT Cardiac Studies Cardiac Studies, [facility] [address] [place] [address] 01/12/2024 8:30 AM EDT Office Visit Cardiology, [facility] [address] [place] [address] Franco Mcgregor MD [address] [place] [address] Health Maintenance Due Date Last [...] encounter Medical Devices Implanted Type Area Rn Office Device Identifier Shelf Expiration Date Model / Serial / Lot Device Watchman Flx 35mm - [id number] Implanted:Qty: 1 on 02/05/2022 by Diamond Teran IV, MD at [facility] [employer] : INTRV CARD [id number] 10/20/2024 [id number] 50 / / [id number] Cath Thermodilution 6fr - [id number] Implanted:Qty: 1 on 07/31/2022 by Franco Mcgregor MD at [facility] [employer] [id number] 04/30/2024 [id number] / / [id number] Mirtaclip G4 - [id number] Implanted:Qty: 1 on 11/16/2022 at [facility] Remote 06/25/2023 [id number] / / [id number] Clip Delivery Sytem G4 Xtw - [id number] Implanted:Qty: 1 on 11/16/2022 at [facility] Remote [id number] 08/10/2023 [id number] / / [id number] Clip Delivery Sytem G4 Xtw - [id number] Implanted:Qty: 1 on 11/16/2022 at [facility] Remote [id number] 09/10/2023 [id number] / / [id number] documented as of this encounter Advance [...] and were consensually agreed upon. Care Teams Reservationist Relationship Specialty Start Date End Date Benny Waite DO [address] [place] [address] PCP - General Internal Medicine 04/03/21 documented as of this encounter
--- OUTSIDE RECORDS SUMMARY | 2023-12-04 10:24 | External Medical Summary | Summary of Care ---
Author Name Unknown Organization [facility] Address [address] [facility] [place] [address] Phone [phone] Care Team Providers Care Surveillance Analyst Name Role Phone Benny Waite DO Primary Care Provider [phone] Reason for Visit * Reason Onset Date Comments [facility]: Maintenance 09/14/2023 Encounter Details Date Type Department Care Team (Late st Contact Info) Description 09/14/2023 Telephone [facility], [facility] 132 [facility] JON VILLAR [address] [facility], Nurse [facility] 132 [facility] [place] [address] [facility] [...] in the evening. 0 Active Neomycin-Polymyxin -HC 3.5-94732-0 Otic SolutionIndication s:Other infective acute otitis externa [...] MVR (mitral valve repair) 11/16/2022 Atherosclerosis of [place] co 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 pectoris 08/11/2022 Severe tricuspid regurgitation 08/11/2022 Gout, arthropathy 07/20/2022 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 02/05/2022 Permanent atrial fibrillation 12/22/2021 Overview: Added automatically from request for surgery [id number] Last Assessment & Plan: S/p Watchman Current [...] No guns in the home. Continues buspar. [facility] Crisis number given to pt by [facility] referral placed Moderate to severe mitral [...] in the Comments) Remote Patient Monitoring Vendor: [facility] Device(s): Connected Scale Connected Pulse Ox Connected BP Cuff Self - Management Plan Double dose of Furosemide for 3 days Exacerbation Plan BMP Additional Comments: Euvolemic today. Pt requests [facility] scale, BP and [...] mRNA, LNP-s, No Pre serve, 2-Dose Series (iNEWiT) 05/14/2021 COVID-19, LNP-s, No Preserve , Robbie-sucrose, Ages 12+ (Pfizer) 11/04/2021 COVID-19, MRNA-LNP, 23-24, P F, 30 MCG/0.3 mL, 12 YRS AND ABOVE, IM ([facility]) 04/16/2023 Covid-19, Mrna, Lnp-s, Pf, B ivalent, 30 Mcg, IM, 12 yrs and above (iNEWiT) 03/17/2022 Pneumococcal Conjugate Vacc, 13 Valent (Prevnar) [...] EDT Phone call from patient who reports [facility] keeps calling him about not getting readings. Patient inquiring if [facility] is able to see readings. [facility] dashboard reviewed, no transmissions noted. Patient is very frustrated that [facility] has not been receiving readings, states he recently went to hospital for epistaxis and has been checking BP 2x/day. BP has been fluctuating. Patient is frustrated that readings have not been coming through and is asking why [facility] or RNCM did not notify him of same.Patient states [facility] equipment is "junk" and would like to notify their scanning supervisor. Did attempt to explain that is why [facility] was contacting patient. Patient obtained BP while on phone 131/92 HR-74. He states weight is between 214-215 lbs He states he has spoken to [facility] and they want him to move it all around his house but he doesn't have very many places he can move it. Patient states he wants to know if equipment will work and if not, he does not want it. Offered to have [facility]W come out to home to troubleshoot. [facility] scheduled today with Angela Nascimento to troubleshoot scale. Patient is agreeable to having equipment checked by CHW before discontinuing. Yari Aponte RN, BSN [facility] renal dialysis technician Navigator documented in this encounter Plan of Treatment Upcoming Encounters Date Type Department Care Team (Late st Contact Info) Description 09/14/2023 2:30 PM EDT Home Visit Care Coordination and Integration [address] [facility] [place] [address] Mira Nascimento Community [facility] Claim Service Representative [address] [place] [facility] [place] [address] 10/06/2023 2:20 PM EDT Office Visit Otolaryngology [facility] 132 [place] [address] George Ferrer PA-C 132 [place] [address] 10/08/2023 8:20 AM EDT Office Visit Family Practice [facility] 293 [place] [address] Benny Waite, DO 293 [place] [address] 10/14/2023 8:30 AM EDT Home Visit [facility] 132 [facility] [place] [address] Myrtle Allen RN 132 [facility] [place] [address] 12/13/2023 11:20 AM EDT Office Visit Family Practice [address] [place] [address] 293 [place] [address] Benny Waite, DO 293 [place] [address] 12/21/2023 11:00 AM EDT Nurse Only Ancillary [address] [place] [address] College, Nurse Annual Wellness Visit [address] [place] [address] 01/12/2024 7:15 AM EDT Cardiac Studies Cardiac Studies, [facility] [address] 01/12/2024 8:30 AM EDT Office Visit Cardiology, [facility] 132 [place] [address] Franco Mcgregor MD [address] [place] [address] Health Maintenance Due Date Last [...] this encounter Medical Devices Implanted Type Area Speedboat Driver Device Identifier Shelf Expiration Date Model / Serial / Lot Device Watchman Flx 35mm - [id number] Implanted:Qty: 1 on 02/05/2022 by Diamond Teran IV, MD at [facility] [employer] : INTRV CARD [id number] 10/20/2024 [id number] 50 / / [id number] Cath Thermodilution 6fr - [id number] Implanted:Qty: 1 on 07/31/2022 by Franco Mcgregor MD at [facility] [employer] [id number] 04/30/2024 [id number] / / [id number] Mirtaclip G4 - [id number] Implanted:Qty: 1 on 11/16/2022 at [facility] [employer] 06/25/2023 [id number] / / [id number] Clip Delivery Sytem G4 Xtw - [id number] Implanted:Qty: 1 on 11/16/2022 at [facility] [employer] [id number] 08/10/2023 [id number] TW / / [id number] Clip Delivery Sytem G4 Xtw - [id number] Implanted:Qty: 1 on 11/16/2022 at [facility] [employer] [id number] 09/10/2023 [id number] / / [id number] documented as of this encounter Advance [...] and were consensually agreed upon. Care Teams Surveillance Analyst Relationship Specialty Start Date End Date Benny Waite DO [address] [place] [address] PCP - General Internal Medicine 04/03/21 documented as of this encounter
--- OUTSIDE RECORDS SUMMARY | 2023-12-04 10:25 | External Medical Summary | Summary of Care ---
Author Name Unknown Organization [facility] Address [address] [facility] [address] Phone [phone] Care Team Providers Care Operational Review Sergeant Name Role Phone Danica Waite DO Primary Care Provider [phone] Reason for Visit * Reason Onset Date Comments FYI 09/06/202309/08 Encounter Details Date Type Department Care Team (Late st Contact Info) Description 09/06/2023 Refill Family Practice [address], [place] [address] [place] [address] Danica Waite DO [address] [place], [place] [address] CHF (congestive heart failure), NYHA class I, chronic, diastolic (HCC)*; Lumbar degenerative disc disease Allergies Active Allergy Reactions Criticality Noted Date Comments Adhesive Tape 02/04/2017 Duloxetine High 07/13/2023 Other Reaction(s): confusion Levofloxacin 09/01/2019 documented as of this encounter (statuses as of 09/09/2023) Medications Medication Sig Dispensed Refills Start Date [...] in the evening. 0 Active Neomycin-Polymyxi n-HC 3.5-86431-9 Otic SolutionIndicatio ns:Other infective acute otitis externa [...] 08/31/2023 Active Lisinopril 2.5 MG Oral Tablet (Prinivil)Indicat ions:CHF (congestive heart failure), NYHA class I, chronic, diastolic (HCC) Take 1 Tablet by mouth in the morning. 100 Tablet 3 09/07/2023 Active Lisinopril 2.5 MG Oral Tablet (Prinivil) Take 1 Tablet by mouth in the morning. 0 4 Discontinue d(Refill) Clopidogrel Bisulfate 75 MG Oral Tablet (Plavix)Indicatio ns:Visual field loss, post-stroke Take 1 Tablet by mouth in the morning. 30 Tablet 0 07/22/2023 4 Discontinue d(Medicatio n List Clean Up) documented as of this encounter (statuses as of 09/09/2023) Active Problems Problem Noted Date Diagnosed Date [...] Overview: Added automatically from request for surgery [id number] Last Assessment & Plan: S/p Watchman Current [...] No guns in the home. Continues buspar. [facility] Crisis number given to pt by [facility] health CM referral placed Moderate to severe [...] Remote Patient Monitoring Vendor: [facility] Device(s): Connected Scale Connected Pulse Ox Connected BP Cuff Self - Management Plan Double dose of Furosemide for 3 days Exacerbation Plan BMP Additional Comments: Euvolemic today. Pt requests [facility] scale, BP and pulse ox which was ordered. 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 documented as of this encounter (statuses as of 09/09/2023) Resolved Problems Problem Noted Date Diagnosed Date [...] as of this encounter (statuses as of 09/09/2023) Immunizations Name Administration Dates Next Due COVID-19 mRNA, LNP-s, No Pre serve, 2-Dose Series (PFSweb) 08/20/2020,07/17/2020 COVID-19 mRNA, LNP-s, No Pre serve, 2-Dose Series ([employer]) 05/14/2021 COVID-19, LNP-s, No Preserve , Robbie-sucrose, Ages 12+ ([employer]) 11/04/2021 COVID-19, MRNA-LNP, 23-24, P F, 30 MCG/0.3 mL, 12 YRS AND ABOVE, IM ([facility]) 04/16/2023 Covid-19, Mrna, Lnp-s, Pf, B ivalent, 30 Mcg, IM, 12 yrs and above ([employer]) 03/17/2022 Pneumococcal Conjugate Vacc, 13 Valent [...] encounter Miscellaneous Notes * Telephone Encounter - Samuel Caro, LPN - 09/09/2023 2:38 PM EDT Called and spoke to Mel, states he "is not that bad and not that good". Taking medication "as I should be". Advised patient to call office if he needs anything. Thank you * Telephone Encounter - Marnie Baker LPN - 09/09/2023 2:09 PM EDT Called, not able leave a message. Will continue to call to check in on patients needs. Thank you * Telephone Encounter - Marnie Baker LPN - 09/07/2023 10:40 AM EDT Patient is aware and will comply. Will call patient later today to check to see if he needs any other refills. Thank you * Telephone Encounter - Danica Waite DO - 09/07/2023 8:38 AM EDTSigned Prescriptions: Disp Refills Lisinopril 2.5 MG Oral Tablet (Prinivil) 100 Ta*3 Sig: Take 1 Tablet by mouth in the morning. Authorizing Provider: DANICA WAITE * Telephone Encounter - Danica Waite DO - 09/07/2023 8:37 AM EDT Tramadol not due yet. Filled 30 day supply at [facility] on 08/25/2023 * Telephone Encounter - Antonietta Nguyễn [facility] - 09/07/2023 7:57 AM EDT Patient needs refills on lisinopril and tramadol - needs jesus manuel. * Telephone Encounter - Antonietta Nguyễn [facility] - 09/06/2023 4:50 PM EDT Called patient back. Female answered the phone and wouldn't identify herself. She said mel was not available. Antonietta Vo, Pharm D, BCACP Clinical Pharmacist [address] - [facility] 09/06/2023, 4:51 PM Ph. [phone] * Telephone Encounter - Macy West OSA - 09/06/2023 3:57 PM EDT Pt calling for Antonietta yDe to return his call. He can be reached at [phone] He is stating he has meds that need over nighted TONIGHT. Please call him at his home number documented in this encounter Plan of Treatment Upcoming Encounters Date Type Department Care Team (Late st Contact Info) Description 10/06/2023 2:20 PM EDT Office Visit Otolaryngology [facility] 132 [place] [address] George Ferrer PA-C 132 [place] [address] 10/08/2023 8:20 AM EDT Office Visit Family Practice [address] [address] Danica Waite, DO [address] [place] [address] 10/14/2023 8:30 AM EDT [facility] [place] [address] Myrtle Allen RN [address] [facility] [place] [address] 12/13/2023 11:20 AM EDT Office Visit Family Practice [address] [place] [address] 293 [place] [address] Danica Waite, DO 293 [place] [address] 12/21/2023 11:00 AM EDT Nurse Only Ancillary [address] [place] [address] College, Nurse Annual Wellness Visit [address] [address] 01/12/2024 7:15 AM EDT Cardiac Studies Cardiac Studies, [facility] 132 [facility] [place] [address] 01/12/2024 8:30 AM EDT Office Visit Cardiology, [facility] [address] [facility] [place] [address] Franco Mcgregor MD [address] [place] [facility] [place] [address] Health Maintenance Due Date Last Done [...] this encounter Medical Devices Implanted Type Area Python Java Developer Device Identifier Shelf Expiration Date Model / Serial / Lot Device Watchman Flx 35mm - [id number] Implanted:Qty: 1 on 02/05/2022 by Diamond Teran IV, MD at [facility] [employer] : INTRV CARD [id number] 10/20/2024 [id number] / / [id number] Cath Thermodilution 6fr - [id number] Implanted:Qty: 1 on 07/31/2022 by Franco Mcgregor MD at [facility] [employer] [id number] 04/30/2024 [id number] / / [id number] Mirtaclip G4 - [id number] Implanted:Qty: 1 on 11/16/2022 at [facility] [employer] 06/25/2023 [id number] / / [id number] Clip Delivery Sytem G4 Xtw - [id number] Implanted:Qty: 1 on 11/16/2022 at [facility] [employer] [id number] 08/10/2023 [id number] / / [id number] Clip Delivery Sytem G4 Xtw - [id number] Implanted:Qty: 1 on 11/16/2022 at [facility] [employer] [id number] 09/10/2023 [id number] / / [id number] documented as of this encounter Visit Diagnoses Diagnosis CHF (congestive heart failure), NYHA class I, chronic, diastolic (HCC)- Primary Lumbar degenerative disc disease Degeneration of lumbar [...] and were consensually agreed upon. Care Teams Operational Review Sergeant Relationship Specialty Start Date End Date Danica Waite DO [address] [place] [address] PCP - General Internal Medicine 04/03/21 documented as of this encounter
--- OUTSIDE RECORDS SUMMARY | 2023-12-04 10:25 | External Medical Summary | Summary of Care ---
Author Name Unknown Organization [facility] Address [address] [facility] [place] [address] Phone [phone] Care Team Providers Care Head Of Commission Department Name Role Phone Benny Waite DO Primary Care Provider [phone] Reason for Visit * Reason Onset Date Comments [facility]: Maintenance 09/07/2023 Encounter Details Date Type Department Care Team (Late st Contact Info) Description 09/07/2023 9:00 AM EDT Scheduled Telephone [facility], [facility] [address] [facility] [place] [address] Coordinator, [facility] 132 [facility] [place] [address] Allergies Active Allergy Reactions Criticality Noted Date Comments Adhesive Tape 02/04/2017 Duloxetine High 07/13/2023 Other Reaction(s): confusion Levofloxacin 09/01/2019 documented as of this encounter (statuses as of 09/07/2023) Medications Medication Sig Dispensed Refills Start Date [...] in the evening. 0 Active Neomycin-Polymyxin -HC 3.5-71074-0 Otic SolutionIndication s:Other infective acute otitis externa [...] as of this encounter (statuses as of 09/07/2023) Active Problems Problem Noted Date Diagnosed Date Rectal bleeding 08/11/2023 Last Assessment & Plan: Pt reports this is not new and ongoing for one year. Bright red, known hemorrhoids. Had CBC done 08/05 and normal, reports no increased bleeding since that lab draw or since taking plavix. Will share note with PCP [facility] 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 Not on statin--LDL 89. Will defer to PCP to add statin--goal <70 BP at goal today. 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 [facility] Crisis number given to pt by [facility] referral placed Moderate to severe mitral [...] in the Comments) Remote Patient Monitoring Vendor: [facility] Device(s): Connected Scale Connected Pulse Ox Connected BP Cuff Self - Management Plan Double dose of Furosemide for 3 days Exacerbation Plan BMP Additional Comments: Euvolemic today. Pt requests [facility] scale, BP and pulse ox which was ordered. 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 documented as of this encounter (statuses as of 09/07/2023) Resolved Problems Problem Noted Date Diagnosed Date [...] as of this encounter (statuses as of 09/07/2023) Immunizations Name Administration Dates Next Due COVID-19 mRNA, LNP-s, No Pre serve, 2-Dose Series (Moderna) 08/20/2020,07/17/2020 COVID-19 mRNA, LNP-s, No Pre serve, 2-Dose Series (Pfizer) 05/14/2021 COVID-19, LNP-s, No Preserve , Robbie-sucrose, Ages 12+ (Pfizer) 11/04/2021 COVID-19, MRNA-LNP, 23-24, P F, 30 MCG/0.3 mL, 12 YRS AND ABOVE, IM ([facility]ins[facility]) 04/16/2023 Covid-19, Mrna, Lnp-s, Pf, B ivalent, 30 Mcg, IM, 12 yrs and above ([employer]) 03/17/2022 Pneumococcal Conjugate Vacc, 13 Valent (Prevnar) [...] encounter Miscellaneous Notes * Telephone Encounter - Micheline Medrano RN - 09/07/2023 8:34 AM EDT [facility] Telephonic Nurse Follow-Up Call [facility] Subprogram: Focused Care Management (3-9 months) Follow Up Call Type: Routine follow up call / Status Check Acute issue requiring follow-up call: Other: nose bleed Objective: 08/25/2023 9:27 AM 08/20/2023 9:17 AM 08/12/2023 9:00 AM 08/11/2023 10:28 AM 08/05/2023 2:21 PM VITALS ACROSS ENCOUNTERS BP 118/64 108/62 114/66 120/60 130/72 Pulse 60 60 70 68 Weight 101.5 kg 94.3 kg 100.1 kg BMI 34.78 34.32 BMI 34.78 kg/m2 32.34 kg/m2 34.31 kg/m2 Remote Patient Monitoring: NONE Oxygen Needs: NO supplemental oxygen needs identified DME Needs: NO DME needs identified Medications: No medication or dose adjustments made during acute episode Subjective: Condition Status: Symptoms resolved and back to baseline Current Concerns: Spoke with Nikolas states his nose bleed has resolved and is only having clear drainage from his nostrils. Continues to use saline nasal spray to both nares 3- 4 times daily, and cool mist humidifier. Advised to continue using saline nasal spray and humidifier. Aware that his cardiology appt is on 01/[address] Barraza, may call their office to have the appt changed. Disposition: Routed to [facility] and/or [facility] Care Team for further advice and RNCM visit scheduled Future Visits Scheduled: Future Appointments-next 60 days Date/Time Provider Specialty Dept Phone 09/07/2023 9:00 AM [facility] [phone] 09/09/2023 12:30 PM Myrtle Allen RN [facility] [phone] 10/06/2023 2:20 PM (Arrive by 2:05 PM) George Ferrer PA-C Otolaryngology [phone] 10/08/2023 8:20 AM (Arrive by 8:05 AM) Benny Waite DO Family Medicine [phone] 12/13/2023 11:20 AM (Arrive by 11:05 AM) Benny Waite DO Family Medicine [phone] 12/21/2023 11:00 AM College, Nurse Annual Wellness Visit [address] [phone] 01/12/2024 7:15 AM SPINNING FRAME TENDER 2 GW Cardiac Studies [phone] 01/12/2024 8:30 AM (Arrive by 8:15 AM) Franco Mcgregor MD Cardiology [phone] Micheline Medrano, RN documented in this encounter Plan of Treatment Upcoming Encounters Date Type Department Care Team (Late st Contact Info) Description 09/09/2023 12:30 PM EDT [facility] [address] [place] [address] Myrtle Allen RN [address] [place] [address] 10/06/2023 2:20 PM EDT Office Visit Otolaryngology [facility] [address] [place] [address] George Ferrer PA-C 132 [facility] [place] [address] 10/08/2023 8:20 AM EDT Office Visit Family Practice [address] [place] [address], [place] [phone] Benny Waite, DO 293 [place] [place] [address] 12/13/2023 11:20 AM EDT Office Visit Family Practice 65 [facility] 293 [place] [phone] Benny Waite, DO 293 [place] [address] 12/21/2023 11:00 AM EDT Nurse Only Ancillary [address] [place] [address] College, Nurse Annual Wellness Visit [address] 293 [place] [address] 01/12/2024 7:15 AM EDT Cardiac Studies Cardiac Studies, [facility] [address] 01/12/2024 8:30 AM EDT Office Visit Cardiology, [facility] 132 [place] [address] Franco Mcgregor MD [address] [place] [address] Health Maintenance Due Date Last Done Comments [...] this encounter Medical Devices Implanted Type Area Delinquent Account Clerk Device Identifier Shelf Expiration Date Model / Serial / Lot Device Watchman Flx 35mm - [id number] Implanted:Qty: 1 on 02/05/2022 by Diamond Teran IV, MD at [facility] [employer] : INTRV CARD [id number] 10/20/2024 [id number] 50 / / [id number] Cath Thermodilution 6fr - [id number] Implanted:Qty: 1 on 07/31/2022 by Franco Mcgregor MD at [facility] [employer] [id number] 04/30/2024 [id number] / / [id number] Mirtaclip G4 - [id number] Implanted:Qty: 1 on 11/16/2022 at [facility] [email or web address] 06/25/2023 [id number] / / [id number] Clip Delivery Sytem G4 Xtw - [id number] Implanted:Qty: 1 on 11/16/2022 at [facility] [email or web address] [id number] 08/10/2023 [id number] / / [id number] Clip Delivery Sytem G4 Xtw - [id number] Implanted:Qty: 1 on 11/16/2022 at [facility] [email or web address] [id number] 09/10/2023 [id number] / / [id number] documented as of this encounter Advance [...] were consensually agreed upon. Care Teams Head Of Commission Department Relationship Specialty Start Date End Date Benny Waite DO [address] [place] [address] PCP - General Internal Medicine 04/03/21 documented as of this encounter
--- OUTSIDE RECORDS SUMMARY | 2023-12-04 10:25 | External Medical Summary | Summary of Care ---
Author Name Unknown Organization [facility] Address [address] [facility] [place] [address] Phone [phone] Care Team Providers Care Business Development Officer Name Role Phone Benny Waite DO Primary Care Provider [phone] Reason for Visit * Reason Onset Date Comments [facility]: Maintenance 09/09/2023 Encounter Details Date Type Department Care Team (Late st Contact Info) Description 09/09/2023 Telephone [facility], [facility] 132 [facility] [place] [address] Myrtle Allen, RN [address] [place] [address] [facility]: Maintenance Allergies Active Allergy [...] in the evening. 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 [facility] Crisis number given to pt by [facility] referral placed Moderate to severe mitral [...] in the Comments) Remote Patient Monitoring Vendor: [facility] Device(s): Connected Scale Connected Pulse Ox Connected BP Cuff Self - Management Plan Double dose of Furosemide for 3 days Exacerbation Plan BMP Additional Comments: Euvolemic today. Pt requests [facility] scale, BP and pulse ox which was [...] MCG/0.3 mL, 12 YRS AND ABOVE, IM ([facility]ist-[facility])) 04/16/2023 Covid-19, Mrna, Lnp-s, Pf, B ivalent, 30 Mcg, IM, 12 yrs and above ([employer]) 03/17/2022 Pneumococcal Conjugate Vacc, 13 Valent (Prevnar) [...] 10/06/2023 2:20 PM EDT Office Visit Otolaryngology [facility] 132 [place] [address] George Ferrer PA-C 132 [facility] [place] [address] 10/08/2023 8:20 AM EDT Office Visit Family Practice [address] [place] [address] 293 [place] [address] Benny Waite, DO 293 [place] [address] 10/14/2023 8:30 AM EDT Home Visit [facility] at [facility] 132 [place] [address] Myrtle Allen RN 132 [place] [address] 12/13/2023 11:20 AM EDT Office Visit Family Practice [address] [place] [address] 293 [place] [address] Benny Waite, DO 293 [place] [address] 12/21/2023 11:00 AM EDT Nurse Only Ancillary [address] [place] [address] College, Nurse Annual Wellness Visit [address] [place] [address], [place] [address] 01/12/2024 7:15 AM EDT Cardiac Studies Cardiac Studies, [facility] 132 [facility] [place] [address] 01/12/2024 8:30 AM EDT Office Visit Cardiology, [facility] 132 [facility] [place] [address] Franco Mcgregor MD [address] [place] [address] Health Maintenance Due Date Last [...] this encounter Medical Devices Implanted Type Area Pug Machine Operator Device Identifier Shelf Expiration Date Model / Serial / Lot Device Watchman Flx 35mm - [id number] Implanted:Qty: 1 on 02/05/2022 by Diamond Teran IV, MD at [facility] [employer] : INTRV CARD [id number] 10/20/2024 [id number] 50 / / [id number] Cath Thermodilution 6fr - [id number] Implanted:Qty: 1 on 07/31/2022 by Franco Mcgregor MD at [facility] [employer] [id number] 04/30/2024 [id number] / / [id number] Mirtaclip G4 - [id number] Implanted:Qty: 1 on 11/16/2022 at [facility] [employer] 06/25/2023 [id number] / / [id number] Clip Delivery Sytem G4 Xtw - [id number] Implanted:Qty: 1 on 11/16/2022 at [facility] [employer] [id number] 08/10/2023 [id number] / / [id number] Clip Delivery Sytem G4 Xtw - [id number] Implanted:Qty: 1 on 11/16/2022 at [facility] [employer] [id number] 09/10/2023 [id number] / / [id number] documented as of this encounter Advance [...] and were consensually agreed upon. Care Teams Business Development Officer Relationship Specialty Start Date End Date Benny Waite DO [address] [facility] [place] [address] PCP - General Internal Medicine 04/03/21 documented as of this encounter
--- OUTSIDE RECORDS SUMMARY | 2023-12-04 10:25 | External Medical Summary | Summary of Care ---
Author Name Unknown Organization [facility] Address [address] [facility] [place] [address] Phone [phone] Care Team Providers Care Solar Energy Systems Engineer Name Role Phone Benny Waite DO Primary Care Provider [phone] Reason for Visit * Reason Comments [facility]: Maintenance Encounter Details Date Type Department Care Team (Late st Contact Info) Description 09/09/2023 12:30 PM EDT Home Visit [facility], [facility] 132 [facility] [place] [address] Myrtle Allen, RN [address] [place] [address] Allergies Active Allergy Reactions Criticality Noted Date [...] in the evening. 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 Continues buspar. [facility] Crisis number given to pt by [facility] referral placed Moderate to severe mitral regurgitation [...] in the Comments) Remote Patient Monitoring Vendor: [facility] Device(s): Connected Scale Connected Pulse Ox Connected BP Cuff Self - Management Plan Double dose of Furosemide for 3 days Exacerbation Plan BMP Additional Comments: Euvolemic today. Pt requests [facility] scale, BP and pulse ox which was [...] MCG/0.3 mL, 12 YRS AND ABOVE, IM ([employer]) 04/16/2023 Covid-19, Mrna, Lnp-s, Pf, B ivalent, 30 Mcg, IM, 12 yrs and above ([employer]) 03/17/2022 Pneumococcal Conjugate Vacc, 13 Valent [...] Sign Reading Time Taken Comments Blood Pressure 118/68 09/09/2023 9:03 AM EDT Pulse 66 09/09/2023 9:03 AM EDT Temperature 36.3 C (97.3 F) 09/09/2023 9:03 AM ED T Respiratory Rate 18 09/09/2023 9:03 AM EDT Oxygen Saturation 98% 09/09/2023 9:03 AM EDT Inhaled Oxygen Concentration - - [...] of this encounter Progress Notes * Myrtle Allen, RN - 09/09/2023 8:22 AM EDT [facility] Bonding Equipment Operator Visit Date: 09/09/2023 Time: 8:22 AM Name: Nikolas Silvestre : 1940 Current Concerns: Pt seen for return RNCM visit Was in ED last week for nosebleed and had packing placed - then returned to have it removed Reports no further bleeding noted since Is having some clear drainage but this is chronic Pt reports he has SOB with exertion - has had for months - not getting worse but not getting better- wondering if anything more can be done Noted scattered wheezing of right lobes He has been using a cool mist humidifier at night and feels it helps some Has a dry cough usually only in the mornings TE sent to PCP Dr. Waite to see if any other intervention is recommended Physical Exam: BP 118/68 | Pulse 66 | Temp 36.3 C (97.3 F) | Resp 18 | SpO2 98% Pain 0 Physical Exam Constitutional: General: He is not in acute distress. Cardiovascular: Rate and Rhythm: Normal rate and regular rhythm. Pulses: Normal pulses. Heart sounds: Normal heart sounds. Pulmonary: Effort: Pulmonary effort is normal. Breath sounds: Wheezing (expiratory, right lobes) present. Abdominal: Palpations: Abdomen is soft. Skin: General: Skin is warm and dry. Neurological: Mental Status: He is alert and oriented to person, place, and time. Problems/Symptoms: Review of Systems Constitutional: Positive for fatigue. HENT: Positive for rhinorrhea (clear). Eyes: Positive for visual disturbance (left eye "barnhart spots" intermittent). Respiratory: Positive for shortness of breath (CHESTER and with bending over). Cardiovascular: Negative. Gastrointestinal: Negative. Genitourinary: Negative. Musculoskeletal: Positive for arthralgias. Skin: Negative. Psychiatric/Behavioral: Negative. Medication Reconciliation: (See medication list) Does patient take medications as ordered: Yes Patient Well Being: PHQ2/9: No questionnaires available. No change in living situation Denies falls [facility] Completed this Visit: No. Routine visit and No falls since last visit Advanced Care Planning: No documentation, acp on file. Reinforcement/Education: Educated on home safety: [...] assistive device Keep all appts as scheduled TE sent to PCP regarding possible intervention for ongoing SOB Home Interventions Provided: Home Intervention: Other; eval Consulted PCP/Specialist Reinforced current Plan of Care, including self-management and medication regimen Patient's 'Red Flags': Worsening vision Poor balance Uncontrolled pain Patient Needs to Remember: Call [facility] at with any new or worsening health concerns or problems, red flag symptoms. Referrals Needed: Other none Follow Up: Is there cellular connectivity/connectivity in the home? Yes Does the patient have internet in the home? Yes Patient encouraged to call the intake phone number for all urgent but not emergent issues. Is the patient new to [facility] within the last 30 days? No, Assess appropriateness for upcoming telehealth visits. Cancel telehealth visits & schedule home visit with care steam crane operator(s)as indicated. Provider is in agreement with Plan of Care: Yes Scheduled to follow up with patient in one month. Myrtle Allen RN 09/09/2023 8:22 AM documented in this encounter Plan of Treatment Upcoming Encounters Date Type Department Care Team (Late st Contact Info) Description 10/06/2023 2:20 PM EDT Office Visit Otolaryngology [facility] 132 [place] [address] George Ferrer PA-C [address] [place] [address] 10/08/2023 8:20 AM EDT Office Visit [address] 293 [place] [address] Benny Waite DO 293 [place] [address] 10/14/2023 8:30 AM EDT [facility] 132 [place] [address] Myrtle Allen RN 132 [place] [address] 12/13/2023 11:20 AM EDT Office Visit [address] [place] [address] Benny Waite, 293 [place] [address] 12/21/2023 11:00 AM EDT Nurse Only Ancillary 65 [facility] 293 [place] [address] College, Nurse Annual Wellness Visit [address] [address] 01/12/2024 7:15 AM EDT Cardiac Studies Cardiac Studies, [facility] 132 [place] [address] 01/12/2024 8:30 AM EDT Office Visit Cardiology, [facility] 132 [place] [address] Franco Mcgregor MD [address] [place] [address] Health Maintenance Due Date Last [...] this encounter Medical Devices Implanted Type Area Heading Matcher And Assembler Device Identifier Shelf Expiration Date Model / Serial / Lot Device Watchman Flx 35mm - [id number] Implanted:Qty: 1 on 02/05/2022 by Diamond Teran IV, MD at [facility] [employer] : INTRV CARD [id number] 10/20/2024 [id number] / / [id number] Cath Thermodilution 6fr - [id number] Implanted:Qty: 1 on 07/31/2022 by Franco Mcgregor MD at [facility] [employer] [id number] 04/30/2024 [id number] / / [id number] Mirtaclip G4 - [id number] Implanted:Qty: 1 on 11/16/2022 at [facility] [employer] 06/25/2023 [id number] / / [id number] Clip Delivery Sytem G4 Xtw - [id number] Implanted:Qty: 1 on 11/16/2022 at [facility] [employer] [id number] 08/10/2023 [id number] / / [id number] Clip Delivery Sytem G4 Xtw - [id number] Implanted:Qty: 1 on 11/16/2022 at [facility] [employer] [id number] 09/10/2023 [id number] / / [id number] documented as of this encounter Advance [...] and were consensually agreed upon. Care Teams Solar Energy Systems Engineer Relationship Specialty Start Date End Date Benny Waite DO [address] [facility] [place] [address] PCP - General Internal Medicine 04/03/21 documented as of this encounter
--- OUTSIDE RECORDS SUMMARY | 2023-12-04 10:25 | External Medical Summary | Summary of Care ---
Author Name Unknown Organization [facility] Address [address] [facility] [place] [address] Phone [phone] Care Team Providers Care Word Processing Operator Name Role Phone Benny Waite DO Primary Care Provider [phone] Reason for Visit * Reason Onset Date Comments [facility]: Maintenance 09/09/2023 Encounter Details Date Type Department Care Team (Late st Contact Info) Description 09/09/2023 Telephone [facility], [facility] 132 [facility] [place] [address] Myrtle Allen, RN [address] [place] [address] [facility]: Maintenance Allergies Active Allergy [...] in the evening. 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 Continues buspar. [facility] Crisis number given to pt by [facility] referral placed Moderate to severe mitral regurgitation [...] MCG/0.3 mL, 12 YRS AND ABOVE, IM ([facility]) 04/16/2023 Covid-19, Mrna, Lnp-s, Pf, B ivalent, 30 Mcg, IM, 12 yrs and above (BroadClip) 03/17/2022 Pneumococcal Conjugate Vacc, 13 Valent (Prevnar) [...] Office Visit Otolaryngology [facility] [address] [address] George Ferrer PA-C [address] [place] [address] 10/08/2023 8:20 AM EDT Office Visit Family Practice [address] [place] [address], [place] [address] Benny Waite, 293 [place] [address] 10/14/2023 8:30 AM EDT Home Visit [facility] 132 [place] [address] Myrtle Allen RN [facility] [place] [address] 12/13/2023 11:20 AM EDT Office Visit Family Practice [address] [place] [address] 293 [place] [address] Benny Waite, 293 [place] [address] 12/21/2023 11:00 AM EDT Nurse Only Ancillary [address] [place] [address] 293 [place] [address] College, Nurse Annual Wellness Visit [address] [place] [address], [place] [address] 01/12/2024 7:15 AM EDT Cardiac Studies Cardiac Studies, [facility] 132 [facility] [place] [address] 01/12/2024 8:30 AM EDT Office Visit Cardiology, [facility] 132 [facility] [place] [address] Franco Mcgregor MD [address] [place] [address] Health Maintenance Due Date Last Done Comments [...] this encounter Medical Devices Implanted Type Area Teacher Of The Sight Impaired Device Identifier Shelf Expiration Date Model / Serial / Lot Device Watchman Flx 35mm - [id number] Implanted:Qty: 1 on 02/05/2022 by Diamond Teran IV, [place] [facility] [employer] : INTRV CARD [id number] 10/20/2024 [id number] / / [id number] Cath Thermodilution 6fr - [id number] Implanted:Qty: 1 on 07/31/2022 by Franco Mcgregor MD [place] [facility] [employer] [id number] 04/30/2024 [id number] / / [id number] Mirtaclip G4 - [id number] Implanted:Qty: 1 on 11/16/2022 at [facility] [employer] 06/25/2023 [id number] / / [id number] Clip Delivery Sytem G4 Xtw - [id number] Implanted:Qty: 1 on 11/16/2022 at [facility] [employer] [id number] 08/10/2023 [id number] / / [id number] Clip Delivery Sytem G4 Xtw - [id number] Implanted:Qty: 1 on 11/16/2022 at [facility] [employer] [id number] 09/10/2023 [id number] / / [id number] documented as of this encounter Advance [...] and were consensually agreed upon. Care Teams Word Processing Operator Relationship Specialty Start Date End Date Benny Waite DO [address] [place] [address] PCP - General Internal Medicine 04/03/21 documented as of this encounter
--- OUTSIDE RECORDS SUMMARY | 2023-12-04 10:25 | External Medical Summary | Summary of Care ---
Author Name Unknown Organization [facility] Address [address] [facility] [place] [address] Phone [phone] Care Team Providers Care Special Assets Officer Name Role Phone Benny Waite DO Primary Care Provider [phone] Reason for Visit * Reason Onset Date Comments [facility]: Maintenance 09/09/2023 Encounter Details Date Type Department Care Team (Late st Contact Info) Description 09/09/2023 Telephone [facility], [facility] 132 [facility] [place] [address] Myrtle Allen, RN [address] [place] [address] [facility]: Maintenance Allergies Active Allergy [...] in the evening. 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 Continues buspar. [facility] Crisis number given to pt by [facility] referral placed Moderate to severe [place]): Connected Scale Connected Pulse Ox Connected BP Cuff Self - Management Plan Double dose of Furosemide for 3 days Exacerbation Plan BMP Additional Comments: Euvolemic today. Pt requests [facility] [place], BP and pulse ox which was [...] MCG/0.3 mL, 12 YRS AND ABOVE, IM ([facility]) 04/16/2023 Covid-19, Mrna, Lnp-s, Pf, B ivalent, 30 Mcg, IM, 12 yrs and above (NextFit) 03/17/2022 Pneumococcal Conjugate Vacc, 13 Valent (Prevnar) [...] encounter Miscellaneous Notes * Telephone Encounter - Iens Coates RN - 09/09/2023 2:51 PM EDT [...] 10/06/2023 2:20 PM EDT Office Visit Otolaryngology [facility] 132 [place] [address] George Ferrer PA-C 132 [place] [address] 10/08/2023 8:20 AM EDT Office Visit Family Practice [address] [place] [address] 293 [place] [address] Benny Waite, DO 293 [place] [address] 10/14/2023 8:30 AM EDT Home Visit [facility] [address] [place] [address] Myrtle Allen RN 132 [place] [address] 12/13/2023 11:20 AM EDT Office Visit Family Practice [address] [place] [address] 293 [place] [address] Benny Waite, DO 293 [place] [address] 12/21/2023 11:00 AM EDT Nurse Only Ancillary [address] [place] [address] College, Nurse Annual Wellness Visit [address] [place] [address], [place] [address] 01/12/2024 7:15 AM EDT Cardiac Studies Cardiac Studies, [facility] [address] [place] [address] 01/12/2024 8:30 AM EDT Office Visit Cardiology, [facility] [address] [place] [address] Franco Mcgregor MD [address] [place] [address] Health Maintenance Due Date Last [...] this encounter Medical Devices Implanted Type Area Neuropsychology Medical Consultant Device Identifier Shelf Expiration Date Model / Serial / Lot Device Watchman Flx 35mm - [id number] Implanted:Qty: 1 on 02/05/2022 by Diamond Teran IV, MD [place] [facility] [place] [employer] : INTRV CARD [id number] 10/20/2024 [id number] 50 / / [id number] Cath Thermodilution 6fr - [id number] Implanted:Qty: 1 on 07/31/2022 by Franco Mcgregor MD [place] [facility] [place] [employer] [id number] 04/30/2024 [id number] / / [id number] Mirtaclip G4 - [id number] Implanted:Qty: 1 on 11/16/2022 at [facility] [place] [employer] 06/25/2023 [id number] / / [id number] Clip Delivery Sytem G4 Xtw - [id number] Implanted:Qty: 1 on 11/16/2022 at [facility] [place] [employer] [id number] 08/10/2023 [id number] TW / / [id number] Clip Delivery Sytem G4 Xtw - [id number] Implanted:Qty: 1 on 11/16/2022 at [facility] [place] [employer] [id number] 09/10/2023 [id number] TW / / [id number] documented as of this encounter Advance [...] were consensually agreed upon. Care Teams Special Assets Officer Relationship Specialty Start Date End Date Benny Waite DO 293 [place] [place] [address] PCP - General Internal Medicine 04/03/21 documented as of this encounter
--- OUTSIDE RECORDS SUMMARY | 2023-12-04 10:25 | External Medical Summary | Summary of Care ---
Author Name Unknown Organization [facility] Address [address] [facility] [address] Phone [phone] Care Team Providers Care Relay Associate Name Role Phone Danica Waite DO Primary Care Provider [phone] Reason for Visit * Reason Onset Date Comments FYI 09/06/2023 Encounter Details Date Type Department Care Team (Late st Contact Info) Description 09/06/2023 Refill Family Practice 65 [facility] 293 [place] [address] Danica Waite DO 293 [place] [address] CHF (congestive heart failure), NYHA class I, chronic, diastolic (HCC)*; Lumbar degenerative disc disease Allergies Active Allergy Reactions Criticality Noted Date Comments Adhesive Tape 02/04/2017 Duloxetine High 07/13/2023 Other Reaction(s): confusion Levofloxacin 09/01/2019 documented as of this encounter (statuses as of 09/08/2023) Medications Medication Sig Dispensed Refills Start Date [...] in the evening. 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 02/05/2022 Permanent atrial fibrillation 12/22/2021 Overview: Added automatically from request for surgery [id number] Last Assessment & Plan: S/p Watchman Current [...] [place] Crisis number given to pt by [place] [...] as of this encounter (statuses as of 09/08/2023) Resolved Problems Problem Noted Date Diagnosed Date [...] as of this encounter (statuses as of 09/08/2023) Immunizations Name Administration Dates Next Due COVID-19 mRNA, LNP-s, No Pre serve, 2-Dose Series (Identiv) 08/20/2020,07/17/2020 COVID-19 mRNA, LNP-s, No Pre serve, 2-Dose Series (Gorsh) 05/14/2021 COVID-19, LNP-s, No Preserve , Robbie-sucrose, Ages 12+ (Gorsh) 11/04/2021 COVID-19, MRNA-LNP, 23-24, P F, 30 MCG/0.3 mL, 12 YRS AND ABOVE, IM ([employer]ir[employer]) 04/16/2023 Covid-19, Mrna, Lnp-s, Pf, B ivalent, 30 Mcg, IM, 12 yrs and above (Gorsh) 03/17/2022 Pneumococcal Conjugate Vacc, 13 Valent (Prevnar) [...] Miscellaneous Notes * Telephone Encounter - Samuel Marnie BrarAMBER - 09/07/2023 10:40 AM EDT Patient is [...] due yet. Filled 30 day supply at [facility] on 08/25/2023 * Telephone Encounter - Antonietta Nguyễn RP - 09/07/2023 7:57 AM EDT Patient needs refills on lisinopril and tramadol - needs jesus manuel. * Telephone Encounter - Antonietta Nguyễn RPh - 09/06/2023 4:50 PM EDT Called patient back. Female answered the phone and wouldn't identify herself. She said mel was not available. Antonietta Vo, Pharm D, BCACP Clinical Pharmacist [address] [place] [address] - Medication Therapy [facility] 09/06/2023, 4:51 PM Ph. [phone] * Telephone Encounter - Macy West OSA - 09/06/2023 3:57 PM EDT Pt calling for Antonietta or Marnie to return his call. He can be reached at [phone] He is stating he has meds that need over nighted TONIGHT. Please call him at his home number documented in this encounter Plan of Treatment Upcoming Encounters Date Type Department Care Team (Late st Contact Info) Description 09/09/2023 12:30 PM EDT Home Visit [facility] [place], [facility] [address] [place] [address] Myrtle Allen RN [address] [place] [address] 10/06/2023 2:20 PM EDT Office Visit Otolaryngology [facility] [address] [place] [address] George Ferrer PA-C 132 [facility] [place] [address] 10/08/2023 8:20 AM EDT Office Visit Family Practice [address] [place] [address] 293 [facility], [place] [address] Danica Waite, 293 [place] [address] 12/13/2023 11:20 AM EDT Office Visit Family Practice 65 [facility] 293 [place] [address] Danica Waite, 293 [place] [address] 12/21/2023 11:00 AM EDT Nurse Only Ancillary 65 [facility] 293 [place] [address] College, Nurse Annual Wellness Visit 65 [facility] 293 [place] [address] 01/12/2024 7:15 AM EDT Cardiac Studies Cardiac Studies, [facility] 132 [facility] [place] [address] 01/12/2024 8:30 AM EDT Office Visit Cardiology, [facility] 132 [place] [address] Franco Mcgregor MD [address] [place] [address] Health Maintenance Due Date Last [...] this encounter Medical Devices Implanted Type Area Wire Drawing Machine Operator Device Identifier Shelf Expiration Date Model / Serial / Lot Device Watchman Flx 35mm - [id number] Implanted:Qty: 1 on 02/05/2022 by Diamond Teran IV, MD at [facility] [employer] : INTRV CARD [id number] 10/20/2024 [id number] 50 / / [id number] Cath Thermodilution 6fr - [id number] Implanted:Qty: 1 on 07/31/2022 by Franco Mcgregor MD at [facility] [employer] [id number] 04/30/2024 [id number] / / [id number] Mirtaclip G4 - [id number] Implanted:Qty: 1 on 11/16/2022 at [facility] [employer] 06/25/2023 [id number] / / [id number] Clip Delivery Sytem G4 Xtw - [id number] Implanted:Qty: 1 on 11/16/2022 at [facility] [employer] [id number] 08/10/2023 [id number] TW / / [id number] Clip Delivery Sytem G4 Xtw - [id number] Implanted:Qty: 1 on 11/16/2022 at [facility] [employer] [id number] 09/10/2023 [id number] / / [id number] documented as of this encounter Visit [...] and were consensually agreed upon. Care Teams Relay Associate Relationship Specialty Start Date End Date Danica Waite DO [address] [facility] [place] [address] PCP - General Internal Medicine 04/03/21 documented as of this encounter
--- OUTSIDE RECORDS SUMMARY | 2023-12-04 10:25 | External Medical Summary | Summary of Care ---
Author Name Unknown Organization [facility] Address [address] [facility] [address] Phone [phone] Care Team Providers Care Repair Operator Name Role Phone Danica Waite DO Primary Care Provider [phone] Reason for Visit * Reason Onset Date Comments FYI 09/06/202309/08 Encounter Details Date Type Department Care Team (Late st Contact Info) Description 09/06/2023 Refill Family Practice [address] [facility] [place] 293 [place] [address] Danica Waite DO 293 [place], [place] [address] CHF (congestive heart failure), NYHA class I, [...] in the evening. 0 Active Neomycin-Polymyxi n-HC 3.5-79126-2 Otic SolutionIndicatio ns:Other infective acute otitis externa [...] Overview: Added automatically from request for surgery [id number] Last Assessment & Plan: S/p Watchman Current [...] No guns in the home. Continues buspar. [facility] Crisis number given to pt by [facility] Device(s): Connected Scale Connected Pulse Ox Connected BP Cuff Self - Management Plan Double dose of Furosemide for 3 days Exacerbation Plan BMP Additional Comments: Euvolemic today. Pt requests [facility] scale, BP and pulse ox which was [...] mRNA, LNP-s, No Pre serve, 2-Dose Series (Javelin) 08/20/2020,07/17/2020 COVID-19 mRNA, LNP-s, No Pre serve, 2-Dose Series ([employer]us [employer]) 05/14/2021 COVID-19, LNP-s, No Preserve , Robbie-sucrose, Ages 12+ (Nimbus Data) 11/04/2021 COVID-19, MRNA-LNP, 23-24, P F, 30 MCG/0.3 mL, 12 YRS AND ABOVE, IM ([facility]) 04/16/2023 Covid-19, Mrna, Lnp-s, Pf, B ivalent, 30 Mcg, IM, 12 yrs and above ([employer] Data) 03/17/2022 Pneumococcal Conjugate Vacc, 13 Valent (Prevnar) [...] due yet. Filled [address] [facility] on 08/25/2023 * Telephone Encounter - Antonietta Nguyễn [facility] - 09/07/2023 7:57 AM EDT Patient needs refills on lisinopril and tramadol - needs jesus manuel. * Telephone Encounter - Antonietta Nguyễn RP - 09/06/2023 4:50 PM EDT Called patient back. Female answered the phone and wouldn't identify herself. She said eml was not available. Antonietta Vo, Pharm D, BCACP Clinical Pharmacist [address] [place] [address] - Medication Therapy [facility] 09/06/2023, 4:51 PM Ph. [phone] * Telephone Encounter - Macy West OSA - 09/06/2023 3:57 PM EDT Pt calling for Antonietta Dye to return his call. He can be reached at [phone] He is stating he has meds that need over nighted TONIGHT. Please call him at his home number documented in this encounter Plan of Treatment Upcoming Encounters Date Type Department Care Team (Late st Contact Info) Description 10/06/2023 2:20 PM EDT Office Visit Otolaryngology [facility] 132 [facility] [place] [address] George Ferrer PA-C 132 [facility] [place] [address] 10/08/2023 8:20 AM EDT Office Visit Family Practice [address] [place] [address] 293 [facility] [address] Danica Waite DO 293 [place] [address] 10/14/2023 8:30 AM EDT [facility], [facility] 132 [facility] [place] [address] Myrtle Allen, RN 132 [place] [address] 12/13/2023 11:20 AM EDT Office Visit Family Practice [address] [place] [address] 293 [place] [address] Danica Waite, 293 [place] [address] 12/21/2023 11:00 AM EDT Nurse Only Ancillary [address] [place] [address] 293 [place] [address] College, Nurse Annual Wellness Visit [address] [place] [address] 01/12/2024 7:15 AM EDT Cardiac Studies Cardiac Studies, [facility] 132 [place] [address] 01/12/2024 8:30 AM EDT Office Visit Cardiology, [facility] 132 [place] [address] Franco Mcgregor MD [address] [place] [address] Health Maintenance Due Date Last [...] this encounter Medical Devices Implanted Type Area Incident Response Consultant Device Identifier Shelf Expiration Date Model / Serial / Lot Device Watchman Flx 35mm - [id number] Implanted:Qty: 1 on 02/05/2022 by Diamond Teran IV, MD at [facility] [place] [employer] : INTRV CARD [id number] 10/20/2024 [id number] 50 / / [id number] Cath Thermodilution 6fr - [id number] Implanted:Qty: 1 on 07/31/2022 by Franco Mcgregor MD at [facility] [place] [employer] [id number] 04/30/2024 [id number] / / [id number] Mirtaclip G4 - [id number] Implanted:Qty: 1 on 11/16/2022 at [facility] [place] [employer] 06/25/2023 [id number] / / [id number] Clip Delivery Sytem G4 Xtw - [id number] Implanted:Qty: 1 on 11/16/2022 at [facility] [place] [employer] [id number] 08/10/2023 [id number] TW / / [id number] Clip Delivery Sytem G4 Xtw - [id number] Implanted:Qty: 1 on 11/16/2022 at [facility] [place] [employer] [id number] 09/10/2023 [id number] / / [id number] documented as of this encounter Visit [...] and were consensually agreed upon. Care Teams Repair Operator Relationship Specialty Start Date End Date Danica Waite DO [address] [place] [address] PCP - General Internal Medicine 04/03/21 documented as of this encounter
--- OUTSIDE RECORDS SUMMARY | 2023-12-04 10:25 | External Medical Summary | Summary of Care ---
Author Name Unknown Organization [facility] Address [address] [place] [address] Phone [phone] Care Team Providers Care Commercial Loan Underwriter Name Role Phone Benny Waite DO Primary Care Provider [phone] Reason for Visit * Reason Onset Date Comments Advice 09/01/2023 Bloody nose Encounter Details Date Type Department Care Team (Late st Contact Info) Description 09/01/2023 Telephone Family Practice 65 [facility] [place] [address] [place] [address] Benny Waite DO [address] [place] [address] Advice (Bloody nose) Allergies Active Allergy Reactions Criticality Noted Date Comments Adhesive Tape 02/04/2017 Duloxetine High 07/13/2023 Other Reaction(s): confusion Levofloxacin 09/01/2019 documented as of this encounter (statuses as of 09/06/2023) Medications Medication Sig Dispensed Refills Start Date [...] in the evening. 0 Active Neomycin-Polymyxin -HC 3.5-99730-2 Otic SolutionIndication s:Other infective acute otitis externa [...] before bedtime. 200 Tablet 3 06/18/2023 Active Lisinopril 2.5 MG Oral Tablet (Prinivil) Take 1 Tablet by mouth in the morning. 0 Active Furosemide 20 MG Oral Tablet (Lasix) Take 1 Tablet by mouth once a day on Wednesday, Wednesday, and Wednesday only. 0 Active Clopidogrel Bisulfate 75 MG Oral Tablet (Plavix)Indication s:Visual field loss, post-stroke Take 1 Tablet by mouth in the morning. 30 Tablet 0 07/22/2023 Active Meclizine HCl 12.5 MG Oral Tablet [...] before bedtime. 60 Tablet 0 08/25/2023 Active documented as of this encounter (statuses as of 09/06/2023) Active Problems Problem Noted Date Diagnosed Date Rectal bleeding 08/11/2023 Last Assessment & Plan: Pt reports this is not new and ongoing for one year. Bright red, known hemorrhoids. Had CBC done 08/05 and normal, reports no increased bleeding since that lab draw or since taking plavix. Will share [facility] with [facility] 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 No guns in the home. [facility] health referral placed Moderate to severe [...] as of this encounter (statuses as of 09/06/2023) Resolved Problems Problem Noted Date Diagnosed Date [...] as of this encounter (statuses as of 09/06/2023) Immunizations Name Administration Dates Next Due COVID-19 mRNA, LNP-s, No Pre serve, 2-Dose Series (Moderna) 08/20/2020,07/17/2020 COVID-19 mRNA, LNP-s, No Pre serve, 2-Dose Series (Pfizer) 05/14/2021 COVID-19, LNP-s, No Preserve , Robbie-sucrose, Ages 12+ (Pfizer) 11/04/2021 COVID-19, MRNA-LNP, 23-24, P F, 30 MCG/0.3 mL, 12 YRS AND ABOVE, IM ([employer]) 04/16/2023 Covid-19, Mrna, Lnp-s, Pf, B ivalent, [...] Telephone Encounter - Marnie Baker LPN - 09/02/2023 3:59 PM EDT Patient went to ER for nose bleed on 08/30 was told 5 days placement of rocket to have removed. Will go to ER on Wednesday to have rocket removed. Is scheduled with ENT 10/05. Thank you * Telephone Encounter - Marnie Bobo RN - 09/02/2023 9:03 AM EDT Pt calling in-states he has small amt of blood/water draining from nose-not large amt-dabs with kleenex/handkerchief. States rocket still in but is out about 1 inch. States was to be getting a call for a follow up appt with ENT to have removed. Told I would look into it and talk with Dr Waite and let him know the plan. ENT declines taking packing out-states they did not put it in. Pt will have to return to ER to haveremoved. ENT will follow with pt 10/06/23 to assess nose. Pt can f/u with Dr Waite after the packing is removed. * Telephone Encounter - Macy West OSA - 09/01/2023 5:04 PM EDT Pt calling to speak with nursing, however; all nursing is gone for the day. Pt states the Left side of his nose packaging has come out and now has a bloody, watery discharge. States not blood but bloody water. Pt was advised to go to the ER as no nursing is available at this time. Dr Waite advised if bleeding to go to the ER. Pt declined to go to the ER and disconnected the call. Pt was also advised, before hanging up on me, that he could call back and talk with a triage nurse who can assist him rather than waiting until tomorrow morning when nursing comes back in. Nothing avail w pcp at this time tomorrow. documented in this encounter Plan of Treatment Upcoming Encounters Date Type Department Care Team (Late st Contact Info) Description 09/07/2023 9:00 AM EDT Scheduled Telephone [facility], [facility] [address] [place] [address] Coordinator, [facility] 132 [facility] [place] [address] 09/09/2023 12:30 PM EDT [facility], [facility] 132 [facility] [place] [address] Myrtle Allen, RN [address] [place] [address] 10/06/2023 2:20 PM EDT Office Visit Otolaryngology [facility] 132 [facility] [place] [address] George Ferrer PA-C 132 [facility] [place] [address] 10/08/2023 8:20 AM EDT Office Visit Family Practice 65 [facility] 293 [place] [address] Benny Waite, DO 293 [facility] [place] [address] 12/13/2023 11:20 AM EDT Office Visit Family Practice 65 [facility] 293 [facility] [address] Benny Waite, DO 293 [facility] [place] [address] 12/21/2023 11:00 AM EDT Nurse Only Ancillary [address] [place] [address] College, Nurse Annual Wellness Visit [address] [place] [address], [place] [address] 01/12/2024 7:15 AM EDT Cardiac Studies Cardiac Studies, [facility] [address] [place] [address] 01/12/2024 8:30 AM EDT Office Visit Cardiology, [facility] [address] [place] [address] Franco Mcgregor MD [address] [facility] [address] Health Maintenance Due Date Last Done [...] this encounter Medical Devices Implanted Type Area Yeast Maker Device Identifier Shelf Expiration Date Model / Serial / Lot Device Watchman Flx 35mm - [id number] Implanted:Qty: 1 on 02/05/2022 by Diamond Teran IV, MD at [facility] [email or web address] : INTRV CARD [id number] 10/20/2024 [id number] 50 / / [id number] Cath Thermodilution 6fr - [id number] Implanted:Qty: 1 on 07/31/2022 by Franco Mcgregor MD at [facility] [employer] [id number] 04/30/2024 [id number] / / [id number] Mirtaclip G4 - [id number] Implanted:Qty: 1 on 11/16/2022 at [facility] [employer] 06/25/2023 [id number] / / [id number] Clip Delivery Sytem G4 Xtw - [id number] Implanted:Qty: 1 on 11/16/2022 at [facility] [employer] [id number] 08/10/2023 [id number] TW / / [id number] Clip Delivery Sytem G4 Xtw - [id number] Implanted:Qty: 1 on 11/16/2022 at [facility] [employer] [id number] 09/10/2023 [id number] / / [id number] documented as of this encounter Advance [...] and were consensually agreed upon. Care Teams Commercial Loan Underwriter Relationship Specialty Start Date End Date Benny Waite DO [address] [place] [address] PCP - General Internal Medicine 04/03/21 documented as of this encounter
--- OUTSIDE RECORDS SUMMARY | 2023-12-04 10:25 | External Medical Summary | Summary of Care ---
Author Name Unknown Organization [facility] Address [address] [facility] [address] Phone [phone] Care Team Providers Care Fish Peddler Name Role Phone Danica Waite DO Primary Care Provider [phone] Reason for Visit * Reason Onset Date Comments FYI 09/06/202309/08 Encounter Details Date Type Department Care Team (Late st Contact Info) Description 09/06/2023 Refill Family Practice [address] [facility] [place] [address] [place] [address] Danica Waite DO [address] [place], [place] [id number] CHF (congestive heart failure), NYHA class I, [...] in the evening. 0 Active Neomycin-Polymyxi n-HC 3.5-37904-8 Otic SolutionIndicatio ns:Other infective acute otitis externa [...] Overview: Added automatically from request for surgery [id number] Last Assessment & Plan: S/p Watchman Current [...] Center Crisis number given to pt by [facility] health CM referral placed Moderate to [...] the Comments) Remote Patient Monitoring Vendor: [facility] Device(s): Connected Scale Connected Pulse Ox Connected BP Cuff Self - Management Plan Double dose of Furosemide for 3 days Exacerbation Plan BMP Additional Comments: Euvolemic today. Pt requests [facility] scale, BP and pulse ox which was [...] mRNA, LNP-s, No Pre serve, 2-Dose Series (TYT ([employer])) 08/20/2020,07/17/2020 COVID-19 mRNA, LNP-s, No Pre serve, 2-Dose Series (Sentiment) 05/14/2021 COVID-19, LNP-s, No Preserve , Robbie-sucrose, Ages 12+ (Sentiment) 11/04/2021 COVID-19, MRNA-LNP, 23-24, P F, 30 MCG/0.3 mL, 12 YRS AND ABOVE, IM ([facility]) 04/16/2023 Covid-19, Mrna, Lnp-s, Pf, B ivalent, 30 Mcg, IM, 12 yrs and above (Sentiment) 03/17/2022 Pneumococcal Conjugate Vacc, 13 Valent (Prevnar) [...] due yet. Filled 30 day supply at [facility] on 08/25/2023 * Telephone Encounter - Antonietta Nguyễn [facility] - 09/07/2023 7:57 AM EDT Patient needs refills on lisinopril and tramadol - needs jesus manuel. * Telephone Encounter - Antonietta Nguyễn [facility] - 09/06/2023 4:50 PM EDT Called patient back. Female answered the phone and wouldn't identify herself. She said mel was not available. Antonietta Vo, Pharm D, BCACP Clinical Pharmacist [address] [facility] 09/06/2023, 4:51 PM Ph. [phone] * Telephone Encounter - Macy West OSA - 09/06/2023 3:57 PM EDT Pt calling for Antonietta Dye to return his call. He can be reached at [phone] He is stating he has meds that need over nighted TONIGHT. Please call him at his home number documented in this encounter Plan of Treatment Upcoming Encounters Date Type Department Care Team (Late st Contact Info) Description 10/06/2023 2:20 PM EDT Office Visit Otolaryngology [facility] [address] [place] [address] George Ferrer PA-C 132 [facility] [place] [address] 10/08/2023 8:20 AM EDT Office Visit Family Practice [address] [address] Danica Waite, DO [address] [place] [address] 10/14/2023 8:30 AM EDT [facility] 132 [facility] [place] [address] Myrtle Allen RN 132 [place] [address] 12/13/2023 11:20 AM EDT Office Visit Family Practice [address] [place] [address] 293 [place] [address] Danica Waite, DO 293 [place] [address] 12/21/2023 11:00 AM EDT Nurse Only Ancillary [address] [place] [address] College, Nurse Annual Wellness Visit [address] [address] 01/12/2024 7:15 AM EDT Cardiac Studies Cardiac Studies, [facility] 132 [facility] [place] [address] 01/12/2024 8:30 AM EDT Office Visit Cardiology, [facility] 132 [facility] [place] [address] Franco Mcgregor MD [address] [facility] [place] [address] Health Maintenance Due Date Last Done [...] this encounter Medical Devices Implanted Type Area Switch Inspector Device Identifier Shelf Expiration Date Model / Serial / Lot Device Watchman Flx 35mm - [id number] Implanted:Qty: 1 on 02/05/2022 by Diamond Teran IV, MD at [facility] [employer] : INTRV CARD [id number] 10/20/2024 [id number] 50 / / [id number] Cath Thermodilution 6fr - [id number] Implanted:Qty: 1 on 07/31/2022 by Franco Mcgregor MD at [facility] [employer] [id number] 04/30/2024 [id number] / / [id number] Mirtaclip G4 - [id number] Implanted:Qty: 1 on 11/16/2022 at [facility] [employer] 06/25/2023 [id number] / / [id number] Clip Delivery Sytem G4 Xtw - [id number] Implanted:Qty: 1 on 11/16/2022 at [facility] [employer] [id number] 08/10/2023 [id number] TW / / [id number] Clip Delivery Sytem G4 Xtw - [id number] Implanted:Qty: 1 on 11/16/2022 at [facility] [employer] [id number] 09/10/2023 [id number] TW / / [id number] documented as of this encounter Visit [...] and were consensually agreed upon. Care Teams Fish Peddler Relationship Specialty Start Date End Date Danica Waite DO [address] [place] [address] PCP - General Internal Medicine 04/03/21 documented as of this encounter
--- OUTSIDE RECORDS SUMMARY | 2023-12-04 10:25 | External Medical Summary | Summary of Care ---
Author Name Unknown Organization [facility] Address [address] [facility] [address] Phone [phone] Care Team Providers Care Clinical Rehabilitation Liaison Name Role Phone Danica Waite DO Primary Care Provider [phone] Reason for Visit * Reason Onset Date Comments FYI 09/06/202309/08 Encounter Details Date Type Department Care Team (Late st Contact Info) Description 09/06/2023 Refill Family Practice [address], [place] [address] [place] [address] Danica Waite DO [address] [place], [place] [phone] CHF (congestive heart failure), NYHA class I, [...] in the evening. 0 Active Neomycin-Polymyxi n-HC 3.5-38713-5 Otic SolutionIndicatio ns:Other infective acute otitis externa [...] MVR (mitral valve repair) 11/16/2022 Atherosclerosis of [place]in[place]cock co 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 pectoris 08/11/2022 Severe tricuspid regurgitation 08/11/2022 Gout, arthropathy 07/20/2022 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 02/05/2022 Permanent atrial fibrillation 12/22/2021 Overview: Added automatically from request for surgery [id number] Last Assessment & Plan: S/p Watchman Current [...] in the home. Continues [facility]par. [facility] Crisis number given to pt by [facility] health CM referral placed Moderate to [...] mRNA, LNP-s, No Pre serve, 2-Dose Series ([employer]) 08/20/2020,07/17/2020 COVID-19 mRNA, LNP-s, No Pre serve, 2-Dose Series ([employer]) 05/14/2021 COVID-19, LNP-s, No Preserve , Robbie-sucrose, Ages 12+ ([employer]) 11/04/2021 COVID-19, MRNA-LNP, 23-24, P F, 30 MCG/0.3 mL, 12 YRS AND ABOVE, IM ([employer]) 04/16/2023 Covid-19, Mrna, Lnp-s, Pf, B ivalent, 30 Mcg, IM, 12 yrs and above ([employer]) 03/17/2022 Pneumococcal Conjugate Vacc, 13 Valent (Prevnar) [...] due yet. Filled 30 day supply at [facility] on 08/25/2023 * Telephone Encounter - Antonietta Nguyễn [facility] - 09/07/2023 7:57 AM EDT Patient needs refills on lisinopril and tramadol - needs jesus manuel. * Telephone Encounter - Antonietta Nguyễn [facility] - 09/06/2023 4:50 PM EDT Called patient back. Female answered the phone and wouldn't identify herself. She said mel was not available. Antonietta Vo, Pharm D, BCACP Clinical Pharmacist [address] [facility] 09/06/2023, 4:51 PM Ph. [phone] * Telephone Encounter - Macy West OSA - 09/06/2023 3:57 PM EDT Pt calling for Antonietta Dye to return his call. He can be reached at [phone] He is stating he has meds that need over nighted TONIGHT. Please call him at his home number documented in this encounter Plan of Treatment Upcoming Encounters Date Type Department Care Team (Late st Contact Info) Description 10/06/2023 2:20 PM EDT Office Visit Otolaryngology [facility] [address] [address] George Ferrer PA-C 132 [facility] [place] [address] 10/08/2023 8:20 AM EDT Office Visit Family Practice [address] [address] Danica Waite, DO 293 [place] [address] 10/14/2023 8:30 AM EDT [facility] 132 [facility] [place] [address] Myrtle Allen RN 132 [place] [address] 12/13/2023 11:20 AM EDT Office Visit Family Practice [address] [place] [address] 293 [facility] [address] Danica Waite, DO 293 [place] [address] 12/21/2023 11:00 AM EDT Nurse Only Ancillary [address] [place] [address] College, Nurse Annual Wellness Visit [address] [address] 01/12/2024 7:15 AM EDT Cardiac Studies Cardiac Studies, [facility] 132 [facility] [place] [address] 01/12/2024 8:30 AM EDT Office Visit Cardiology, [facility] 132 [facility] [place] [address] Franco Mcgregor MD [address] [place] [address] Health Maintenance Due Date Last Done [...] this encounter Medical Devices Implanted Type Area Color Checker Roving Or Yarn Device Identifier Shelf Expiration Date Model / Serial / Lot Device Watchman Flx 35mm - [id number] Implanted:Qty: 1 on 02/05/2022 by Diamond Teran IV, MD at [facility] [email or web address] : INTRV CARD [id number] 10/20/2024 [id number] 50 / / [id number] Cath Thermodilution 6fr - [id number] Implanted:Qty: 1 on 07/31/2022 by Franco Mcgregor MD at [facility] [employer] [id number] 04/30/2024 [id number] / / [id number] Mirtaclip G4 - [id number] Implanted:Qty: 1 on 11/16/2022 at [facility] [employer] 06/25/2023 [id number] / / [id number] Clip Delivery Sytem G4 Xtw - [id number] Implanted:Qty: 1 on 11/16/2022 at [facility] [employer] [id number] 08/10/2023 [id number] TW / / [id number] Clip Delivery Sytem G4 Xtw - [id number] Implanted:Qty: 1 on 11/16/2022 at [facility] [employer] [id number] 09/10/2023 [id number] TW / / [id number] documented as of this encounter Visit [...] were consensually agreed upon. Care Teams Clinical Rehabilitation Liaison Relationship Specialty Start Date End Date Danica Waite DO [address] [place] [address] PCP - General Internal Medicine 04/03/21 documented as of this encounter
--- OUTSIDE RECORDS SUMMARY | 2023-12-04 10:25 | External Medical Summary | Summary of Care ---
Author Name Unknown Organization [facility] Address [address] [place] [address] Phone [phone] Care Team Providers Care Grinder Needle Tip Name Role Phone Benny Waite DO Primary Care Provider [phone] Reason for Visit * Reason Onset Date Comments Information 09/06/2023 Encounter Details Date Type Department Care Team (Late st Contact Info) Description 09/06/2023 Telephone Family Practice [address] [place] [address] Benny Waite DO [address] [place], [place] [id number] Information Allergies Active Allergy Reactions Criticality Noted [...] in the evening. 0 Active Neomycin-Polymyxin -HC 3.5-52680-3 Otic SolutionIndication s:Other infective acute otitis externa [...] 1 Tablet before bedtime. 0 08/31/2023 Active documented as of this encounter (statuses [...] [facility] 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 Not on statin--LDL 89. Will defer to PCP to add statin--goal <70 BP at goal today. Sacroiliitis, not elsewhere classified 4 S/P MVR (mitral valve repair) 11/16/2022 Atherosclerosis of [place] co 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 pectoris 08/11/2022 Severe tricuspid regurgitation 08/11/2022 Gout, arthropathy 07/20/2022 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 02/05/2022 Permanent atrial fibrillation 12/22/2021 Overview: Added automatically from request for surgery [id number] Last Assessment & Plan: S/p Watchman Current [...] Continues buspar. [facility] Crisis number given to pt by [facility] referral placed Moderate to severe mitral [...] Additional Comments: Euvolemic today. Pt requests [facility] scale, BP [...] MCG/0.3 mL, 12 YRS AND ABOVE, IM (Loladex-Comiratrium health [employer]) 04/16/2023 Covid-19, Mrna, Lnp-s, Pf, B ivalent, 30 Mcg, IM, 12 yrs and above ([email or web address]) 03/17/2022 Pneumococcal Conjugate Vacc, 13 Valent (Prevnar) [...] Telephone Encounter - Marnie Baker LPN - 09/06/2023 3:00 PM EDT Reviewed medication list with patient. Scheduled for one month follow up. * Telephone Encounter - Benny Waite DO - 09/06/2023 10:59 AM EDT Needs visit in 1 month * Telephone Encounter - Marnie Baker LPN - 09/06/2023 10:20 AM EDT Went to ER for packing removal of nose. States no problems, feels ok. Keep scheduled appts as directed. Is scheduled to see DR Waite in December, is this acceptable? Is scheduled to see ENT 10/06/2023 documented in this encounter Plan of Treatment Upcoming Encounters Date Type Department Care Team (Late st Contact Info) Description 09/07/2023 9:00 AM EDT Scheduled Telephone [facility], [facility] [address] [address] Coordinator, [facility] [address] [address] 09/09/2023 12:30 PM EDT Home Visit [facility] at [facility] [address] [address] Myrtle Allen RN [address] [address] 10/06/2023 2:20 PM EDT Office Visit Otolaryngology [facility] [address] [address] George Ferrer PA-C [address] [address] 10/08/2023 8:20 AM EDT Office Visit Family Practice [address] [place] [address] [facility] [address] Benny Waiet, DO 293 [place] [address] 12/13/2023 11:20 AM EDT Office Visit Family Practice 65 [facility] 293 [place] [address] Benny Waite, DO 293 [place] [address] 12/21/2023 11:00 AM EDT Nurse Only Ancillary 65 [facility] 293 [place] [address] College, Nurse Annual Wellness Visit [address] [place] [address] 01/12/2024 7:15 AM EDT Cardiac Studies Cardiac Studies, [facility] 132 [facility] [address] 01/12/2024 8:30 AM EDT Office Visit Cardiology, [facility] 132 [facility] [place] [address] Franco Mcgregor MD [address] [place] [address] Health Maintenance Due Date [...] this encounter Medical Devices Implanted Type Area Broadcast Checker Device Identifier Shelf Expiration Date Model / Serial / Lot Device Watchman Flx 35mm - [id number] Implanted:Qty: 1 on 02/05/2022 by Diamond Teran IV, MD at [facility] [employer] : INTRV CARD [id number] 10/20/2024 [id number] / / [id number] Cath Thermodilution 6fr - [id number] Implanted:Qty: 1 on 07/31/2022 by Franco Mcgregor MD at [facility] [employer] [id number] 04/30/2024 [id number] / / [id number] Mirtaclip G4 - [id number] Implanted:Qty: 1 on 11/16/[address] [employer] 06/25/2023 [id number] / / [id number] Clip Delivery Sytem G4 Xtw - [id number] Implanted:Qty: 1 on 11/16/[address] [facility] [employer] [id number] 08/10/2023 [id number] / / [id number] Clip Delivery Sytem G4 Xtw - [id number] Implanted:Qty: 1 on 11/16/[address] [facility] [employer] [id number] 09/10/2023 [id number] / / [id number] documented as of this encounter Advance [...] and were consensually agreed upon. Care Teams Grinder Needle Tip Relationship Specialty Start Date End Date Benny Waite DO [address] [facility] [place] [address] PCP - General Internal Medicine 04/03/21 documented as of this encounter
--- OUTSIDE RECORDS SUMMARY | 2023-12-04 10:26 | External Medical Summary | Summary of Care ---
Author Name Unknown Organization [facility] Address [address] [facility] [place] [address] Phone [phone] Care Team Providers Care Cager Operator Name Role Phone Benny Waite DO Primary Care Provider [phone] Reason for Visit * Reason Onset Date Comments [facility]: Maintenance 09/05/2023 Encounter Details Date Type Department Care Team (Late st Contact Info) Description 09/05/2023 3:00 PM EDT Scheduled Telephone [facility], [facility] 132 [facility] [place] [address] [facility], Nurse [facility] 132 [facility] [place] [address] Allergies Active Allergy Reactions Criticality Noted Date Comments Adhesive Tape 02/04/2017 Duloxetine High 07/13/2023 Other Reaction(s): confusion Levofloxacin 09/01/2019 documented as of this encounter (statuses as of 09/05/2023) Medications Medication Sig Dispensed Refills Start Date [...] in the evening. 0 Active Neomycin-Polymyxin -HC 3.5-08614-2 Otic SolutionIndication s:Other infective acute otitis externa [...] as of this encounter (statuses as of 09/05/2023) Active Problems Problem Noted Date Diagnosed Date Rectal bleeding 08/11/2023 Last Assessment & Plan: Pt reports this is not new and ongoing for one year. Bright red, known hemorrhoids. Had CBC done 08/05 and normal, reports no increased bleeding since that lab draw or since taking plavix. Will share note with [facility] 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 Not on statin--LDL 89. Will defer to PCP to add statin--goal <70 BP at goal today. Sacroiliitis, not elsewhere classified 4 S/P MVR (mitral valve repair) 11/16/2022 Atherosclerosis of [place] co 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 pectoris 08/11/2022 Severe tricuspid regurgitation 08/11/2022 Gout, arthropathy 07/20/2022 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 02/05/2022 Permanent atrial fibrillation 12/22/2021 Overview: Added automatically from request for surgery [id number] Last Assessment & Plan: S/p Watchman Current [...] plan. No guns in the home. [facility] Crisis number given to pt by [facility] health CM referral placed Moderate to [...] Patient Monitoring Vendor: [facility] Device(s): Connected Scale Connected Pulse Ox Connected BP Cuff Self - Management Plan Double dose of Furosemide for 3 days Exacerbation Plan BMP Additional Comments: Euvolemic today. Pt requests [facility] scale, BP and pulse ox which was ordered. 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 documented as of this encounter (statuses as of 09/05/2023) Resolved Problems Problem Noted Date Diagnosed Date [...] as of this encounter (statuses as of 09/05/2023) Immunizations Name Administration Dates Next Due COVID-19 mRNA, LNP-s, No Pre serve, 2-Dose Series (Moderna) 08/20/2020,07/17/2020 COVID-19 mRNA, LNP-s, No Pre serve, 2-Dose Series (Pfizer) 05/14/2021 COVID-19, LNP-s, No Preserve , Robbie-sucrose, Ages 12+ (Pfizer) 11/04/2021 COVID-19, MRNA-LNP, 23-24, P F, 30 MCG/0.3 mL, 12 YRS AND ABOVE, IM ([employer] [place]-ComirnatVendAsta) 04/16/2023 Covid-19, Mrna, Lnp-s, Pf, B ivalent, [...] encounter Miscellaneous Notes * Telephone Encounter - Mahamed Camara RN - 09/05/2023 2:25 PM EDT PC to follow up on the following- Assessment (professional conclusion, VS) Patient was recently in ED for a nosebleed and had packing placed in both nostrils. Patient currently still has packing in one nostril as the other had fallen out a few days ago. Patient does note that there is blood-tinged watery seepage around packing that is still in place. Patient is asking about whether he should go to ED to have it removed. Recommendation/Request Per notes, patient was previously recommended to go to ED today to have packing removed as ENT declined to remove packing. Advised patient that he should go to ED for this. Patient unwilling to commit to going as directed saying he might "get cold feet." Advised patient that he should make every effort to go so they can remove packing and make sure bleeding has stopped. Routed to [facility] weekend nurse and director of casework services for follow up as necessary. Spoke with patient who reports he did go to the ER to have the packing removed from his nostril. Hesays he's been home for about an hour. Patient says he bent over in the ER to pick something up, and when he sat up, he had a mouthful of blood. Nurse told him that was normal, and he was sent home within a 1/2 hour. Patient reports he did have 1 more episode like that after getting home, but it stopped. Encouraged patient to keep a bottle of Afrin nasal spray readily available, as this can help to stop the bleeding. Also, encouraged patient to avoid bending over, blowing his nose, lifting, etc. Educated patient on finger placement if he needs to hold pressure on his nose. Patient v/u. No other acute concerns at this time. Patient aware to call with any questions/concerns. documented in this encounter Plan of Treatment Upcoming Encounters Date Type Department Care Team (Late st Contact Info) Description 09/09/2023 12:30 PM EDT Home Visit [facility] [address] [address] Myrtle Allen RN [address] [address] 10/06/2023 2:20 PM EDT Office Visit Otolaryngology [facility] [address] [address] George Ferrer PA-C 132 [place] [address] 12/13/2023 11:20 AM EDT Office Visit Family Practice [facility] 293 [place] [address] Benny Waite, 293 [facility] [place] [address] 12/21/2023 11:00 AM EDT Nurse Only Ancillary 65 [facility] 293 [place] [address] College, Nurse Annual Wellness Visit [address] [place] [address] 01/12/2024 7:15 AM EDT Cardiac Studies Cardiac Studies, [facility] 132 [place] [address] 01/12/2024 8:30 AM EDT Office Visit Cardiology, [facility] 132 [place] [address] Franco Mcgregor MD [address] [place] [address] Health Maintenance Due Date Last [...] this encounter Medical Devices Implanted Type Area Tariff Supervisor Device Identifier Shelf Expiration Date Model / Serial / Lot Device Watchman Flx 35mm - [id number] Implanted:Qty: 1 on 02/05/2022 by Diamond Teran IV, MD at [facility] [employer] : INTRV CARD [id number] 10/20/2024 [id number] 50 / / [id number] Cath Thermodilution 6fr - [id number] Implanted:Qty: 1 on 07/31/2022 by Franco Mcgregor MD at [facility] [employer] [id number] 04/30/2024 [id number] / / [id number] Mirtaclip G4 - [id number] Implanted:Qty: 1 on 11/16/2022 at [facility] [employer] 06/25/2023 [id number] / / [id number] Clip Delivery Sytem G4 Xtw - [id number] Implanted:Qty: 1 on 11/16/2022 at [facility] [employer] [id number] 08/10/2023 [id number] / / [id number] Clip Delivery Sytem G4 Xtw - [id number] Implanted:Qty: 1 on 11/16/2022 at [facility] [employer] [id number] 09/10/2023 [id number] / / [id number] documented as of this encounter Advance [...] and were consensually agreed upon. Care Teams Cager Operator Relationship Specialty Start Date End Date Benny Waite DO [address] [place] [address] PCP - General Internal Medicine 04/03/21 documented as of this encounter
--- OUTSIDE RECORDS SUMMARY | 2023-12-04 10:26 | External Medical Summary | Summary of Care ---
Author Name Unknown Organization [facility] Address [address] [facility] [place] [address] Phone [phone] Care Team Providers Care Car Dryer Name Role Phone Benny Waite DO Primary Care Provider [phone] Reason for Visit * Reason Onset Date Comments [facility]: Maintenance 09/06/2023 Encounter Details Date Type Department Care Team (Late st Contact Info) Description 09/06/2023 12:15 PM EDT Scheduled Telephone [facility], [facility] 132 [facility] [place] [address] Coordinator, [facility] [address] [address] Allergies Active Allergy Reactions Criticality Noted Date [...] in the evening. 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 No guns in the home. [facility] Crisis number given to pt by [facility] health CM referral placed Moderate [...] [facility] Device(s): Connected Scale Connected Pulse Ox Connected BP Cuff Self - Management Plan Double dose of Furosemide for 3 days Exacerbation Plan BMP Additional Comments: Euvolemic today. Pt requests [facility] scale, BP and pulse ox which was [...] MCG/0.3 mL, 12 YRS AND ABOVE, IM ([employer]irnat[employer]) 04/16/2023 Covid-19, Mrna, Lnp-s, Pf, B ivalent, [...] Telephone Encounter - Ines Coates RN - 09/06/2023 8:12 AM EDT [facility] Telephonic Nurse Follow-Up Call [facility] Subprogram: Focused Care Management (3-9 months) Follow Up Call Type: 24 hour follow up Acute issue requiring follow-up call: Other: nose bleed Objective: 08/25/2023 9:27 AM 08/20/2023 9:17 AM 08/12/2023 9:00 AM 08/11/2023 10:28 AM 08/05/2023 2:21 PM VITALS ACROSS ENCOUNTERS BP 118/64 108/62 114/66 120/60 130/72 Pulse 60 60 70 68 Weight 101.5 kg 94.3 kg 100.1 kg BMI 34.78 34.32 BMI 34.78 kg/m2 32.34 kg/m2 34.31 kg/m2 Medications: No medication or dose adjustments made during acute episode Subjective: Patient on for follow up call to see if he had packing removed at ED yesterday. Pt recently in ED for nosebleed and had packing placed in both nostrils. Called into triage yesterday to report packinghad come out of one side. Pt was instructed to go to ED at [facility] to have packing removed as previously instructed. Condition Status: spoke with patient who confirms that he did go to [facility] ED yesterday and packing was removed from both sides. Pt reports a couple of times he has had watery, blood tinged drainage from his nose when he leans forward. Pt reports using saline nasal mist to keep membranes moist.Pt continues on plavix and baby aspirin daily. Pt also reports continue daily "sore throat" in the morning when he wakes. Uses throat lozengesDenies seeing any white patches/lesions in the back of his throat or on his tongue. Reports that the sore throat lasts a few hours in the am. Has tried cool mist humidifier, but symptoms persist. Pt reports this is a long standing issue and PCP is aware. Pt also concerned about white,flaky patches on his face and arms. States that he picks at them and they bleed. Advised not to pick at areas due to chance of bleeding, infection. Will forward to RNCM to assess at home visit scheduled later this week. Pt also asking if he can reschedule cardiology appt that he missed last week. Will send to scheduling. Recommendations/ Plan: Continue saline nasal mist to both nares 3-4 times a day and as needed to keep membranes moist Cool mist humifier If nose bleed returns, pinch and hold pressure to nose just below bridge of nose, call [facility]. If bleeding persists longer than 10-15 minutes or feeling dizzy, light headed, call 911. [facility] Forward to scheduling to r/s cardiology appt and set up ED follow up with PCP Disposition: Follow up call scheduled for tomorrow with AMBER ThomasRailroad Watchman Future Visits Scheduled: Future Appointments-next 60 days Date/Time Provider Specialty Dept Phone 09/06/2023 12:15 PM Coordinator, Fanny Thomas [facility] [phone] 09/09/2023 12:30 PM Myrtle Allen RN [facility] [phone] 10/06/2023 2:20 PM (Arrive by 2:05 PM) George Ferrer PA-C Otolaryngology [phone] 12/13/2023 11:20 AM (Arrive by 11:05 AM) Benny Waite, Family Medicine [phone] 12/21/2023 11:00 AM College, Nurse Annual Wellness Visit [address] [facility] Ancillary [phone] 01/12/2024 7:15 AM INSTRUCTIONAL COACH 2 [facility] Cardiac Studies [phone] 01/12/2024 8:30 AM (Arrive by 8:15 AM) Franco Mcgregor MD Cardiology [phone] Ines Coates RN documented in this encounter Plan of Treatment Upcoming Encounters Date Type Department Care Team (Late st Contact Info) Description 09/07/2023 9:00 AM EDT Scheduled Telephone [facility], [facility] [address] [address] Coordinator, Fanny Thomas [address] [address] 09/09/2023 12:30 PM EDT [facility] Visit [facility] [place], [facility] [address] [address] Myrtle Allen RN [address] [address] 10/06/2023 2:20 PM EDT Office Visit Otolaryngology [facility] 132 [facility] [place] [address] George Ferrer PA-C 132 [facility] [place] [address] 12/13/2023 11:20 AM EDT Office Visit Family Practice 65 [facility] 293 [place] [address] Benny Waite, 293 [place] [address] 12/21/2023 11:00 AM EDT Nurse Only Ancillary [address] [place] [address], [place] [address] College, Nurse Annual Wellness Visit [address] [place] [address], [place] [address] 01/12/2024 7:15 AM EDT Cardiac Studies Cardiac Studies, [facility] 132 [facility] [address] 01/12/2024 8:30 AM EDT Office Visit Cardiology, [facility] 132 [facility] [address] Franco Mcgregor MD [address] [place] [address] Health Maintenance Due Date Last [...] this encounter Medical Devices Implanted Type Area Stitch Burnisher Device Identifier Shelf Expiration Date Model / Serial / Lot Device Watchman Flx 35mm - [id number] Implanted:Qty: 1 on 02/05/2022 by Diamond Teran IV, MD at [facility] [employer] : INTRV CARD [id number] 10/20/2024 [id number] / / [id number] Cath Thermodilution 6fr - [id number] Implanted:Qty: 1 on 07/31/2022 by Franco Mcgregor MD at [facility] [employer] [id number] 04/30/2024 [id number] / / [id number] Mirtaclip G4 - [id number] Implanted:Qty: 1 on 11/16/2022 at [facility] [employer] 06/25/2023 [id number] / / [id number] Clip Delivery Sytem G4 Xtw - [id number] Implanted:Qty: 1 on 11/16/2022 at [facility] [employer] [id number] 08/10/2023 [id number] / / [id number] Clip Delivery Sytem G4 Xtw - [id number] Implanted:Qty: 1 on 11/16/2022 at [facility] [employer] [id number] 09/10/2023 [id number] / / [id number] documented as of this encounter Advance [...] and were consensually agreed upon. Care Teams Car Dryer Relationship Specialty Start Date End Date Benny Waite DO 293 [facility] [place] [address] PCP - General Internal Medicine 04/03/21 documented as of this encounter
[2023-12-04 11:23] LABS: Basophils # (auto) 0.04 K/uL (0.00-0.20); Basophils % (auto) 0.7 %; Eosinophils # (auto) 0.23 K/uL (0.00-0.50); Eosinophils % (auto) 3.8 %; Hematocrit (blood only) 43.1 % (42.0-52.0); Hemoglobin 14.4 g/dl (14.0-18.0); Immature Granulocytes # (auto) 0.01 K/uL (0.01-0.20); Immature Granulocytes % (auto) 0.2 %; Lymphocytes # (auto) 1.06 K/uL (1.20-3.40); Lymphocytes % (auto) 17.6 %; Mean Corpuscular Hemoglobin 34.9 pg (25.0-34.0); Mean Corpuscular Hgb Conc 33.4 g/dL (32.0-36.0); Mean Corpuscular Volume 104.4 fL (80.0-100.0); Mean Platelet Volume 9.8 fL (9.4-12.4); Monocytes # (auto) 0.78 K/uL (0.11-0.59); Neutrophils # (auto) 3.89 K/uL (1.40-6.50); Neutrophils % (auto) 64.7 %; Platelet Count 200 K/uL (130-400); RDW Coefficient of Variation 14.3 % (11.5-14.5); RDW Standard Deviation 54.7 fL (36.4-46.3); Red Blood Count 4.13 M/uL (4.70-6.10); White Blood Count 6.01 K/ul (4.8-10.8)
[2023-12-04 11:39] LABS: Albumin Level 3.9 gm/dl (3.4-5.0); BUN Creatinine Ratio 22.3 (10-20); Bilirubin Direct 0.1 mg/dl (0-0.2); Bilirubin,Total 0.5 mg/dl (0.2-1.0); Calcium 9.2 mg/dl (8.6-10.3); Creatinine Clr Calc Pharmacy 60.2 ml/min; Est GFR (African American) 76.4 ml/min; Est GFR (Non-African American) 65.9 ml/min; Potassium 4.5 mmol/L (3.5-5.1); Total Protein 6.8 gm/dl (6.0-8.3)
[2023-12-04 11:44] LABS: Troponin I High Sensitivity 4.1 pg/ml (0-20)
--- NOTE | 2023-12-04 11:44 | CT Scan Report ---
CT SCAN OF THE BRAIN WITHOUT IV CONTRAST CLINICAL HISTORY: Change in mental status. Hallucinations. COMPARISON STUDY: Abdominal CT dated 07/13/2023. TECHNIQUE: Unenhanced axial CT scan of the brain is performed from the vertex to the skull base. A do se lowering technique was utilized adhering to the principles of ALARA. 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 A chronic appearing right o ccipital lobe infarct is new from 07/13/2023. There is age-related involutional change noting moderate subcortical and periventricular microangiopathic disease. There is no hemorrhage, mass effect, or ev idence of acute territorial ischemia by CT criteria. Bland-white matter differentiation is preserved. No extra-axial fluid collection is seen. Ventricles, sulci, cisterns: Prominent secondary to involutional change. Intracranial vasculature: There is atherosclerotic calcification of the cavernous carotid arteries. Calvarium: Unremarkable. Sinuses and mastoids: The visualized paranasal sinuses are clear. The mastoid air cells are well pneu matized. Orbits: The bony orbits are grossly intact. There are bilateral ocular lens implants. IMPRESSION: There is no hemorrhage, mass effect, or evidence of acute territorial ischemia by CT christian humphries. ACT 112: Negative or not required by law. Electronically signed by: Tobi Swenson M.D. 12/04/2023 11:41 AM
--- NOTE | 2023-12-04 12:45 | Emergency Department Note ---
Impression & Plan AMS (altered mental status) ED Provider Note NAME: ASUNCION MENSAH AGE: 83 SEX: Male INFORMANT: Patient ED PROVIDER(S): Bassem Mckeon MD CHIEF COMPLAINT: Change in mental status PLAN: Disposition: Admitted Outpatient prescription management: none Referral: None MEDICAL DECISION MAKING: Patient presented because of a change mental status with concerns of hallucinations. Patient states that he does feel off at times. Workup was initiated. CT imaging of the head and abdomen and pelvis performed. Blood work obtained. ECG completed as well. Patient's ECG did show A-fib with PVCs. Right bundle branch block. No acute ischemia. Patient CBC, chemistry panel, LFTs, procalcitonin, and troponin along with lactate were unremarkable. Urinalysis was negative. CT imaging of the head as well as the abdomen pelvis did not reveal any gross abnormalities. There was an old appearing occipital infarct seen that was new from his last imaging about 6 months ago. The patient was exhibiting signs of confusion and I am concerned about his managing his medications. The patient reportedly did take extra Zoloft. He does not have any serotonergic findings at this time. This raises concerns that he may have taken/not taken his other medications properly. I did talk with his daughter and she noted he was very confused this morning at home taking things off the wall and throwing things outside. Due to this I think the patient needs further management in the hospital. It appears patient does not realize the extent of his problem. [facility] Case discussed and diagnostics were reviewed. Patient was evaluated by the team in the ER and admitted for further management. Care/management discussed with: salt manager Level of care consideration(s): After review of the information above and other included data, I feel the patient requires escalation of care to admission Triage Nursing notes: reviewed and agree them. Vital Signs: reviewed and remarkable for no significant abnormalities Additional History obtained from: Patient's daughter. She notes patient was exhibiting significant confusion. He was throwing things outside his home. Chronic Medical/Social Conditions affecting care: A-fib, anticoagulation use, hypertension Prior/ Outside/ External records reviewed: none Differential Diagnosis: Infection, hypoglycemia, electrolyte abnormalities, overdose, toxicologic, cardiac sources, intracerebral event, neurologic, trauma, as well as other pathologies. Diagnostics, independently interpreted by me: ECG: Twelve-lead ECG reveals atrial fibrillation with PVCs at 67 bpm. Left axis deviation right bundle pallavi block. No ST elevation. Cardiac Monitoring: Cardiac monitoring ordered by me: The patient was placed on continuous cardiac monitoring and observed. It revealed a normal sinus rhythm at 63 bpm Medical decision rules: none Imaging studies: Head CT: A noncontrast CT scan of the head was performed and was negative for tumor, fracture, intracranial hemorrhage, or other acute pathology. HPI: 83 year old Male arrives for evaluation of change in mental status. Patient notes feeling off and having hallucinations. Family was concerned about confusion. He saw his PCP yesterday. He was recently started on Zoloft and this was continued. Patient wears chronic home O2. He denies any trauma. He does note some generalized lower abdominal pain that is described as mild. Pt denies LOC, headache, fevers, chills, diaphoresis, visual changes, neck pain, chest pain, new breathing difficulties, nausea, vomiting, back pain, melena, hematochezia, urinary symptoms, numbness, focal weakness, rash, or other complaints.. PAST MEDICAL HISTORY: See Below, hypertension, A-fib PAST SURGICAL HISTORY: See Below, SOCIAL HISTORY: See Below, retired HOME MEDICATIONS: See Below ALLERGIES: See Below VITALS: See Below PHYSICAL EXAMINATION: GENERAL: Awake, alert, [id number], in no distress HENT: Normocephalic, atraumatic. Oropharynx unremarkable. EYES: Normal conjunctiva. Sclera non-icteric. NECK: Inspection normal. Non-tender. Supple. No nuchal rigidity. FROM. No masses. RESPIRATORY: Clear to auscultation. No wheezes. No rales. Normal respiratory effort. CARDIAC: Normal rate. Irregular rhythm. No murmurs. No rubs. Extremities warm and well perfused. Pulses equal. No JVD. GI: Soft, non-distended. No tenderness to palpation. No rebound or guarding. No masses. RECTAL: Deferred. MUSCULOSKELETAL: Atraumatic. Chest examination reveals no tenderness. The back is symmetrical on inspection without obvious abnormality. There is no CVA tenderness to palpation. No joint edema. LOWER EXTREMITIES: Calves are equal size bilaterally and non-tender. No edema. No discoloration. NEURO: Relatively normal sensorium. No focal sensory or motor deficits noted. SKIN: No rash or jaundice noted. PROCEDURES: none CRITICAL CARE: none OBSERVATION NOTE: none Past Med/Surg History Problem List (Updated 12/04/23 @ 12:44 by Bassem Mckeon MD) AMS (altered mental status) (Acute) Vision loss, left eye Severe tricuspid regurgitation Lip lesion BPH (benign prostatic hyperplasia) Lumbar disc disease CHF (congestive heart failure) Decompensated heart failure Multifocal PVCs with pairing (Acute) Pleural effusion (Acute) Delirium (Acute) Hypoxia (Acute) Atrial fibrillation on eliquis bid--follows with Dr. Barraza On anticoagulant therapy (Acute) eliquis bid Encounter for pre-operative examination Lumbar spinal stenosis (Acute) Achilles tendonitis, bilateral Plantar fasciitis, bilateral History of amputation of left hand History of colonoscopy 2020 HTN (hypertension) Sleep apnea does not use bipap as ordered Medical History Mitral regurgitation Presence of Watchman left atrial appendage closure device Occipital stroke Osteoarthritis History of kidney stones Rectal bleeding reason for scheduled colonoscopy On anticoagulant therapy eliquis bid Atrial fibrillation on eliquis bid--follows with Dr. 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 History of lumbar discectomy History of appendectomy History of tooth extraction all top teeth removed History of tonsillectomy and adenoidectomy History of bilateral cataract extraction 2020 History of colonoscopy 2020 Family History Other No family history of adverse response to anesthesia No pertinent family history Social History Smoking Status: Never smoker Tobacco Type: Cigarettes Second Hand Exposure: No; Do You Dip or Chew Tobacco: No; Hx Alcohol Use: No Hx Substance Use: No Preferred Language: Bolivian Communication Ability: Effective 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 Plant 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 Required: No Beliefs That Will Affect Care: None Current Living Situation: Spouse Current Living Situation Comment: Has dementia Feels Safe at Home: Yes Assistive Devices: None Allergies Allergies Allergy/AdvReac Type Severity Reaction Status Date / Time adhesive Allergy Mild BLISTER Verified 06/09/21 18:11 SKIN levofloxacin [From Levaquin] Allergy Unknown CAN'T Verified 06/09/21 18:11 REMEMBER duloxetine [From Cymbalta] AdvReac Intermediate confusion Verified 07/13/23 06:49 Home Meds Home Medications Medication Instructions Recorded Confirmed finasteride 5 mg tablet 5 mg PO QAM 06/09/21 12/04/23 gabapentin 300 mg capsule 300 mg PO TID 06/09/21 12/04/23 acetaminophen 500 mg tablet 1,000 mg PO AMPM 07/13/23 12/04/23 allopurinol 300 mg tablet 300 mg PO QAM 07/13/23 12/04/23 aspirin 81 mg chewable tablet 81 mg PO QAM 07/13/23 12/04/23 docusate sodium 100 mg capsule 100 mg PO BID 07/13/23 12/04/23 meclizine 12.5 mg tablet 12.5 mg PO BID PRN Dizziness 07/13/23 12/04/23 tramadol 50 mg tablet 50 mg PO Q6 PRN pain,severe 07/13/23 12/04/23 clopidogrel 75 mg tablet 75 mg PO DAILY 08/26/23 12/04/23 furosemide 20 mg tablet (Lasix) 40 mg PO DAILY 12/04/23 12/04/23 ketoconazole 2 % topical cream 1 applic topical UD 12/04/23 12/04/23 sertraline 25 mg tablet 25 mg PO DAILY 12/04/23 12/04/23 Previous Rx's Medication Instructions Recorded metoprolol succinate 25 mg 25 mg PO QAM #30 tabs 07/15/23 tablet,extended release 24 hr Results & Data (ED) Vital Signs Vital Signs - 24 hr 12/04/23 10:17 12/04/23 10:23 12/04/23 12:26 Temperature 37.1 C Temperature Source Oral Pulse Rate 64 72 Pulse Rate [Apical] 63 Pulse Rhythm [Apical] Pulse Strength [Apical] Respiratory Rate 18 19 Respiratory Effort / Characteristics Non-Labored Non-Labored Respiratory Depth Normal Normal Respiratory Pattern Regular Regular Blood Pressure 131/90 Blood Pressure [Left Arm] Blood Pressure Mean 103 Blood Pressure Mean [Left Arm] Pulse Oximetry 95 97 Oxygen Delivery Method Nasal Cannula Nasal Cannula Oxygen Flow Rate 2 2 Sepsis Recent Fever Within 48 Hours No Sepsis New/Unexplained Change in Mental Status Yes Sepsis Action Taken by Nursing No Action Required 12/04/23 14:47 12/04/23 14:50 12/04/23 16:00 Temperature Temperature Source Pulse Rate Pulse Rate [Apical] 74 68 Pulse Rhythm [Apical] Regular Pulse Strength [Apical] Normal Respiratory Rate 20 18 Respiratory Effort / Characteristics SOB on Exertion Respiratory Depth Normal Respiratory Pattern Regular Blood Pressure Blood Pressure [Left Arm] 167/107 H 143/84 H Blood Pressure Mean Blood Pressure Mean [Left Arm] 127 103 Pulse Oximetry 96 96 97 Oxygen Delivery Method Nasal Cannula Nasal Cannula Nasal Cannula Oxygen Flow Rate 2 2 2 Sepsis Recent Fever Within 48 Hours Sepsis New/Unexplained Change in Mental Status Sepsis Action Taken by Nursing 12/04/23 16:41 12/04/23 17:00 Temperature Temperature Source Pulse Rate 82 Pulse Rate [Apical] 78 Pulse Rhythm [Apical] Pulse Strength [Apical] Respiratory Rate 14 Respiratory Effort / Characteristics Respiratory Depth Respiratory Pattern Blood Pressure Blood Pressure [Left Arm] 158/98 H Blood Pressure Mean Blood Pressure Mean [Left Arm] 118 Pulse Oximetry 96 Oxygen Delivery Method Nasal Cannula Oxygen Flow Rate 2 Sepsis Recent Fever Within 48 Hours Sepsis New/Unexplained Change in Mental Status Sepsis Action Taken by Nursing Laboratory Data 12/04/23 11:08 12/04/23 11:08 Lab Results 12/04/23 12/04/23 Range/Units 11:08 Unknown WBC 6.01 (4.8-10.8) K/ul RBC 4.13 L (4.70-6.10) M/uL Hgb 14.4 (14.0-18.0) g/dl Hct 43.1 (42.0-52.0) % MCV 104.4 H (80.0-100.0) fL MCH 34.9 H (25.0-34.0) pg MCHC 33.4 (32.0-36.0) g/dL RDW Std Deviation 54.7 H (36.4-46.3) fL RDW Coeff of Neal 14.3 (11.5-14.5) % Plt Count 200 (130-400) K/uL MPV 9.8 (9.4-12.4) fL Immature Gran % (Auto) 0.2 % Neut % (Auto) 64.7 % Lymph % (Auto) 17.6 % [place] % (Auto) 13.0 % Eos % (Auto) 3.8 % Baso % (Auto) 0.7 % Neut # (Auto) 3.89 (1.40-6.50) K/uL Lymph # (Auto) 1.06 L (1.20-3.40) K/uL [place] # (Auto) 0.78 H (0.11-0.59) K/uL Eos # (Auto) 0.23 (0.00-0.50) K/uL Baso # (Auto) 0.04 (0.00-0.20) K/uL Immature Gran # (Auto) 0.01 (0.01-0.20) K/uL Sodium 141 (136-145) mmol/L Potassium 4.5 (3.5-5.1) mmol/L Chloride 107 (98-107) mmol/L Carbon Dioxide 29 (21-32) mmol/L Anion Gap 5 (3-11) BUN 23 (6-23) mg/dl Creatinine 1.03 (0.6-1.4) mg/dl Est Cr Clr Drug Dosing 60.2 ml/min Est GFR ( Amer) 76.4 ml/min Est GFR (Non-Af Amer) 65.9 ml/min BUN/Creatinine Ratio 22.3 H (10-20) Glucose 102 H (70-99(Fasting)) mg/dl Lactate 0.8 (0.4-2.0) mmol/L Calcium 9.2 (8.6-10.3) mg/dl Magnesium 2.0 (1.7-2.4) mg/dl Total Bilirubin 0.5 (0.2-1.0) mg/dl Direct Bilirubin 0.1 (0-0.2) mg/dl AST 28 (13-39) U/L ALT 28 (7-52) U/L Alkaline Phosphatase 79 (34-104) U/L Troponin I High Sens 4.1 (0-20) pg/ml Total Protein 6.8 (6.0-8.3) gm/dl Albumin 3.9 (3.4-5.0) gm/dl Procalcitonin < 0.02 (0-0.5) ng/ml Urine Color Yellow Urine Appearance Clear (Clear) Urine pH 5.5 (4.5-7.5) Ur Specific [place] >= 1.030 (1.000-1.030) Urine Protein 1+ H (Negative) Urine Glucose (UA) Negative (Negative) Urine Ketones Negative (Negative) Urine Blood Negative (Negative) Urine Nitrite Negative (Negative) Urine Bilirubin Negative (Negative) Urine Urobilinogen Negative (Negative) Ur Leukocyte Esterase Negative (Negative) Urine RBC 3-5 H (0-2) /hpf Urine WBC 0-5 (0-5) /hpf Ur Epithelial Cells 3-5 H (0-2) /hpf Urine Bacteria None Seen (None Seen) Hyaline Casts Present A (None Presnt) /lpf Imaging Data Radiologist's Impression: Chest X-Ray 12/04/23 10:47 SINGLE VIEW CHEST CLINICAL HISTORY: Sepsis FINDINGS: An AP, portable, upright chest radiograph is compared to study dated 07/15/2023.. The heart is enlarged noting atherosclerotic calcification of the thoracic aorta. There is pulmonary vascular congestion. The cervical chain projects over the mitral valve. There is bibasilar scarring/atelectasis. No airspace consolidation or large pleural effusion is identified. No pneumothorax is seen. The skeletal structures are osteopenic. The bony thorax is grossly intact. Arthritic change is seen in the shoulders. IMPRESSION: 1. Cardiomegaly with pulmonary vascular congestion. 2. No airspace consolidation or large pleural effusion is identified. ACT 112: Negative or not required by law. Electronically signed by: Tobi Swenson M.D. 12/04/2023 1:13 PM Abdomen/Pelvis CT 12/04/23 11:16 CT SCAN OF THE ABDOMEN AND PELVIS WITHOUT IV CONTRAST CLINICAL HISTORY: Change in mental status. Lower abdominal pain COMPARISON STUDY: Abdominal CT dated 12/05/2021. TECHNIQUE: CT scan of the abdomen and pelvis is performed from the lung bases to the proximal femora. Images are reviewed in the axial, sagittal, and coronal planes. IV contrast was not administered for this examination as per the referring clinician. Note that the examination was performed insignificantly suboptimal fashion without oral and IV contrast. There is also motion artifact. A dose lowering technique was utilized adhering to the principles of ALARA. CT DOSE: 3.83 mGy.cm FINDINGS: Lung bases: The heart is markedly enlarged and without pericardial effusion. Postsurgical change is seen in the expected location of the mitral valve. A small hiatal hernia is noted. The lung bases are clear noting bibasilar scarring/atelectasis. Liver: The unenhanced liver is normal in size, contour, and attenuation. There is no intrahepatic biliary ductal dilatation. Gallbladder: Surgically absent noting clips in the gallbladder fossa. Spleen: Normal in size and attenuation. Pancreas: The unenhanced pancreas is mildly atrophic and grossly unremarkable. Adrenal glands: Unremarkable. Kidneys: The unenhanced kidneys demonstrate cortical atrophy and are without hydronephrosis. There are no renal calculi identified. A 13 mm cyst is noted on the right. Abdominal vasculature: The abdominal aorta is normal in course and caliber noting moderate atherosclerotic calcification. Bowel: There is advanced colonic diverticulosis without CT evidence of acute diverticulitis. No bowel obstruction is seen. Moderate fecal retention is noted throughout the colon. The appendix is not identified and reported surgically absent. Peritoneum: There is no intraperitoneal free air or abdominal ascites. There is a fat-containing umbilical hernia. Lymphadenopathy: None. Pelvic viscera: The prostate gland is diminutive and heterogeneous. The bladder is mildly distended, and the wall is thickened/trabeculated indicating chronic outlet obstruction. A 4 mm bladder diverticulum is seen on the left. There are small bilateral fat-containing groin hernias. Skeletal structures: The skeletal structures are osteopenic. There is moderate to advanced lumbosacral spondylosis. Postlaminectomy changes seen in the lower lumbar region. Sclerotic change is noted in the pubic symphysis. No lytic or blastic lesions are seen. IMPRESSION: 1. Suboptimal examination without oral and IV contrast. 2. No acute infectious or inflammatory findings are identified in the abdomen or pelvis. 3. Marked cardiomegaly. 4. Colonic diverticulosis without CT evidence of acute diverticulitis. 5. Additional findings as above. ACT 112: Negative or not required by law. Electronically signed by: Tobi Swenson M.D. 12/04/2023 1:[address] 12/04/23 11:16 CT SCAN OF THE BRAIN WITHOUT IV CONTRAST CLINICAL HISTORY: Change in mental status. Hallucinations. COMPARISON STUDY: Abdominal CT dated 07/13/2023. TECHNIQUE: Unenhanced axial CT scan of the brain is performed from the vertex to the skull base. A dose lowering technique was utilized adhering to the principles of ALARA. FINDINGS: Brain parenchyma: A focus of right cerebellar encephalomalacia is unchanged and consistent with a remote insult. 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 A chronic appearing right occipital lobe infarct is new from 07/13/2023. There is age-related involutional change noting moderate subcortical and periventricular microangiopathic disease. There is no hemorrhage, mass effect, or evidence of acute territorial ischemia by CT criteria. Bland-white matter differentiation is preserved. No extra-axial fluid collection is seen. Ventricles, sulci, cisterns: Prominent secondary to involutional change. Intracranial vasculature: There is atherosclerotic calcification of the cavernous carotid arteries. Calvarium: Unremarkable. Sinuses and mastoids: The visualized paranasal sinuses are clear. The mastoid air cells are well pneumatized. Orbits: The bony orbits are grossly intact. There are bilateral ocular lens implants. IMPRESSION: There is no hemorrhage, mass effect, or evidence of acute territorial ischemia by CT criteria. ACT 112: Negative or not required by law. Electronically signed by: Tobi Swenson M.D. 12/04/2023 11:41 AM Discharge Plan Visit Data Chief Complaint: Illness Stated Complaint: HALLUCINATIONS ED Provider: Bassem Mckeon Discharge Problem: AMS (altered mental status) Forms Stand Alone Forms: My [facility] Prescriptions Prescriptions: No Action clopidogrel 75 mg tablet 75 mg PO DAILY tramadol 50 mg tablet 50 mg PO Q6 PRN (Reason: pain,severe) allopurinol 300 mg tablet 300 mg PO QAM meclizine 12.5 mg Tablet 12.5 mg PO BID PRN (Reason: Dizziness) acetaminophen 500 mg Tablet 1,000 mg PO AMPM docusate sodium 100 mg Capsule 100 mg PO BID aspirin 81 mg Tablet,Chewable 81 mg PO QAM metoprolol succinate 25 mg Tablet Extended Release 24 Hr 25 mg PO QAM Qty: 30 1RF gabapentin 300 mg capsule 300 mg PO TID finasteride 5 mg tablet 5 mg PO QAM sertraline 25 mg tablet 25 mg PO DAILY ketoconazole 2 % cream 1 applic TOPICAL UD furosemide [Lasix] 20 mg tablet 40 mg PO DAILY Referrals Referrals: Benny Waite DO [Primary Care Provider] -
--- NOTE | 2023-12-04 13:14 | XRay Report ---
SINGLE VIEW CHEST CLINICAL HISTORY: Sepsis FINDINGS: An AP, portable, upright chest radiograph is compared to study dated 07/15/2023.. The heart i s enlarged noting atherosclerotic calcification of the thoracic aorta. There is pulmonary vascular c ongestion. The cervical chain projects over the mitral valve. There is bibasilar scarring/atelectasis . No airspace consolidation or large pleural effusion is identified. No pneumothorax is seen. The ske letal structures are osteopenic. The bony thorax is grossly intact. Arthritic change is seen in the s houlders. IMPRESSION: 1. Cardiomegaly with pulmonary vascular congestion. 2. No airspace consolidation or large pleural effusion is identified. ACT 112: Negative or not required by law. Electronically signed by: Tobi Swenson M.D. 12/04/2023 1:13 PM
--- NOTE | 2023-12-04 13:18 | Electrocardiogram Report ---
Test Reason : Blood Pressure : / mmHG Vent. Rate : 067 BPM Atrial Rate : 000 BPM P-R Int : 000 ms QRS Dur : 142 ms QT Int : 428 ms P-R-T Axes : 000 -44 -15 degrees QTc Int : 452 ms Atrial fibrillation with premature ventricular or aberrantly conducted complexes Left axis deviation Right bundle branch block Abnormal ECG When compared with ECG of 12-JUL-2023 23:11, Inverted T waves have replaced nonspecific T wave abnormality in Inferior leads Confirmed by Devan Gillis ([id number]) on 12/04/2023 1:18:14 PM Referred By: Benny Waite Confirmed By:Devan Gillis
--- NOTE | 2023-12-04 13:35 | CT Scan Report ---
CT SCAN OF THE ABDOMEN AND PELVIS WITHOUT IV CONTRAST CLINICAL HISTORY: Change in mental status. Lower abdominal pain COMPARISON STUDY: Abdominal CT dated 12/05/2021. TECHNIQUE: CT scan of the abdomen and pelvis is performed from the lung bases to the proximal femora. Images are reviewed in the axial, sagittal, and coronal planes. IV contrast was not administered for this examination as per the referring clinician. Note that the examination was performed insignifica ntly suboptimal fashion without oral and IV contrast. There is also motion artifact. A dose lowering technique was utilized adhering to the principles of ALARA. CT DOSE: 2063.83 mGy.cm FINDINGS: Lung bases: The heart is markedly enlarged and without pericardial effusion. Postsurgical change is s een in the expected location of the mitral valve. A small hiatal hernia is noted. The lung bases are clear noting bibasilar scarring/atelectasis. Liver: The unenhanced liver is normal in size, contour, and attenuation. There is no intrahepatic cintia iary ductal dilatation. Gallbladder: Surgically absent noting clips in the gallbladder fossa. Spleen: Normal in size and attenuation. Pancreas: The unenhanced pancreas is mildly atrophic and grossly unremarkable. Adrenal glands: Unremarkable. Kidneys: The unenhanced kidneys demonstrate cortical atrophy and are without hydronephrosis. There ar e no renal calculi identified. A 13 mm cyst is noted on the right. Abdominal vasculature: The abdominal aorta is normal in course and caliber noting moderate atheroscle rotic calcification. Bowel: There is advanced colonic diverticulosis without CT evidence of acute diverticulitis. No bowel obstruction is seen. Moderate fecal retention is noted throughout the colon. The appendix is not id entified and reported surgically absent. Peritoneum: There is no intraperitoneal free air or abdominal ascites. There is a fat-containing umbi lical hernia. Lymphadenopathy: None. Pelvic viscera: The prostate gland is diminutive and heterogeneous. The bladder is mildly distended, and the wall is thickened/trabeculated indicating chronic outlet obstruction. A 4 mm bladder divertic ulum is seen on the left. There are small bilateral fat-containing groin hernias. Skeletal structures: The skeletal structures are osteopenic. There is moderate to advanced lumbosacra l spondylosis. Postlaminectomy changes seen in the lower lumbar region. Sclerotic change is noted in the pubic symphysis. No lytic or blastic lesions are seen. IMPRESSION: 1. Suboptimal examination without oral and IV contrast. 2. No acute infectious or inflammatory findings are identified in the abdomen or pelvis. 3. Marked cardiomegaly. 4. Colonic diverticulosis without CT evidence of acute diverticulitis. 5. Additional findings as above. ACT 112: Negative or not required by law. Electronically signed by: Tobi Swenson M.D. 12/04/2023 1:33 PM
[2023-12-04 15:03] LABS: Appearance Urine Clear (Clear); Bilirubin Urine Negative (Negative); Blood Urine Negative (Negative); Color Urine Yellow; Glucose Urine UA Negative (Negative); Ketones Urine Negative (Negative); Leukocyte Esterase Urine Negative (Negative); Nitrite Urine Negative (Negative); Protein Urine 1+ (Negative); Specific Gravity Urine >= 1.030 (1.000-1.030); Urobilinogen Urine Negative (Negative); pH Urine 5.5 (4.5-7.5)
[2023-12-04 15:28] LABS: Hyaline Casts Urine Present /lpf (None Presnt)
[2023-12-04 15:29] LABS: Bacteria Urine None Seen (None Seen); WBC Urine 0-5 /hpf (0-5)
--- NOTE | 2023-12-04 16:32 | History & Physical Report ---
Date of Service December 04, 2023 Assessment & Plan (1) AMS (altered mental status): (2) CHF (congestive heart failure): (3) Atrial fibrillation: (4) HTN (hypertension): (5) Presence of Watchman left atrial appendage closure device: (6) Mitral regurgitation: Plan: AMS Metabolic/toxic encephalopathy - Admit to PCU - CT reviewed: small chronic left parietal lobe infarct is also unchanged. A chronic appearing right occipital lobe infarct is new from 07/13/2023. There is age-related involutional change noting moderate subcortical and periventricular microangiopathic disease. There is no hemorrhage, mass effect, or evidence of acute territorial ischemia by CT criteria. - Possible that he had this occipital lobe infarct since the last time he was here - Lives at home alone, in a trailor, O2 dependent - family is concerned that he can't go home - UA does not appear grossly infected, no other acute signs of infection, follow blood cultures - Check Urine drug screen, TSH - ? medication noncompliance vs dosing inappropriately - Started zoloft a week ago- possible med confusion? daughter told ER he took 2 pills vs 1 as instructed. Monitor med compliance. - 1:1 may be needed - possible dementia is adding to his symptoms, attempt gentle reorientation -? Secondary to Cymbalta DD: Hypoxia contributing as well Chronic diastolic heart failure Hypoxia secondary to above Valvular heart disease Severe mitral regurgitation S/P surgery H/O tricuspid regurgitation Peripheral vascular disease -CXR:Cardiomegaly with pulmonary vascular congestion. -ECHO Jun 2023: Mild concentric LVH. Left ventricle wall motion is normal. Left ventricle systolic function is normal. EF 55 to 60%. Left atrium is severely dilated. Evidence of percutaneous mitral valve clip. Mild mitral and tricuspid regurgitation. Pulmonary artery systolic pressure estimated to be 51 mmHg. -Monitor volume status, I/Os, daily weight -Continue metoprolol, lisinopril, lasix 40 mg daily -BiPAP intolerant Persistent atrial fibrillation S/P Watchman procedure -Continue metoprolol -Monitor and adjust medications as needed Chronic back pain H/O sacroiliitis H/O lumbar laminectomy for severe lumbar spinal stenosis -Last SI joint injection was 1 month ago per record -Patient declined lumbosacral MRI and additional injections -Cautious use of pain medications Depression - Daughter reports his in September - likely that this was the reason for trying zoloft. Will discontinue this med as he has only taken it for 1 day with worsening confusion/hallucinations. Also during last hospital stay was taken off cymbalta for neuropathy also with worsening mood. - Pt has not been on SSRI previously, could trial paxil if he hasn't previously for his age for depression and poor medication compliance with it's extended half life. - May also consider rexulti for patient of this age if it is for mood stabilization, age related agitation associated with dementia in light of the chronic cva seen on imaging, and as AMS resolves. Prediabetes - hemoglobin A1c of 5.6 last year BPH - chronic, stable Gout - chronic, stable Obesity -BMI 35 - diet and exercise to be encouraged throughout hospital stay Discussion held with Bindu over the phone. She was updated on the patient's course/plan for admission, specific questions were answered, she plans to come visit the patient tomorrow. DVT PPx: Lovenox SQ DVT ppx: teds, scds, plavix, aspirin Lines: PIV x 1 FEN/GI: Heart healthy easy to chew CODE: DNR/DNI Dispo: From home, likely to remain in the hospital x 1-2 days A total of 80 minutes were spent with greater than 50% of that time face to face with the patient, personally reviewing all current laboratories, imaging studies, past medication reconciliation, outpatient chart review, and discussion with specialists to collaborate care for the patient with attending. Please see attending documentation for corrections and/or additions. History of Present Illness Chief Complaint: AMS Primary Care Provider: Benny Waite, This is a 83-year-old male with PMHx of chronic diastolic heart failure (EF 55%, TTE 2022), valvular heart disease (severe MR status post MitraClip surgery, hx TR), A-fib status post Watchman device, PVD, DEX/CSA BiPAP intolerant,, hyp ertension, prediabetes, GERD, BPH, MCTD as per records, hx vertigo, sacroiliitis, anxiety/mood disorder.who presents to the hospital with worsening altered mental status. It appears that he was started on Zoloft approximately 1 week ago and has worsening hallucinations since that timeframe per daughters report to the ER. Similarly per EMR link when he started trial of BuSpar in the past he also had development of hallucinations. I discussed his case with Bindu (step-daughter), Patient called his daughter this morning, stripping bed, thinking there were people plastering his house, which is not occurring per Bindu. His other daughter, Mira, is currently in [place] visiting friends, thinking she was having an affair but this also is not actually occurring. Pt states he took 2 zolofts total, which arrived in the mail Wednesday night, but is confused if he took one yesterday and today, or two together last night. Also when reviewing medications with the patient, he is telling me that he used to take Lasix 15 and increased it to 20 mg, which does not make sense as he was never prescribed 15 mg on my review. He cannot recall if he actually took his medications this morning. Nursing states that he was wandering around the C pod earlier today looking for his dog. The patient himself today denies any auditory or visual hallucinations. He says he sometimes sees bland/black visual changes out of the left triana, but that has been going on for some time now. He denies remembering exactly what happened this morning. He denies any acute complaints of worsening pain but states that he does use pain meds for his lower back 2-3 times per day. Family has concern for his safety at home as he lives alone, with left hand removed sometime ago and being left-handed, having to learn to be right-handed, family wonders if they may benefit from having him placed in a facility. Allergies Allergy/AdvReac Type Severity Reaction Status Date / Time adhesive Allergy Mild BLISTER Verified 06/09/21 18:11 SKIN levofloxacin [From Levaquin] Allergy Unknown CAN'T Verified 06/09/21 18:11 REMEMBER duloxetine [From Cymbalta] AdvReac Intermediate confusion Verified 07/13/23 06:49 Home Medications Medication Instructions Recorded Confirmed Type finasteride 5 mg tablet 5 mg PO QAM 06/09/21 12/04/23 History gabapentin 300 mg capsule 300 mg PO TID 06/09/21 12/04/23 History acetaminophen 500 mg tablet 1,000 mg PO AMPM 07/13/23 12/04/23 History allopurinol 300 mg tablet 300 mg PO QAM 07/13/23 12/04/23 History aspirin 81 mg chewable tablet 81 mg PO QAM 07/13/23 12/04/23 History docusate sodium 100 mg capsule 100 mg PO BID 07/13/23 12/04/23 History meclizine 12.5 mg tablet 12.5 mg PO BID PRN Dizziness 07/13/23 12/04/23 History tramadol 50 mg tablet 50 mg PO Q6 PRN pain,severe 07/13/23 12/04/23 History metoprolol succinate 25 mg 25 mg PO QAM #30 tabs 07/15/23 12/04/23 Rx tablet,extended release 24 hr clopidogrel 75 mg tablet 75 mg PO DAILY 08/26/23 12/04/23 History furosemide 20 mg tablet (Lasix) 40 mg PO DAILY 12/04/23 12/04/23 History ketoconazole 2 % topical cream 1 applic topical UD 12/04/23 12/04/23 History sertraline 25 mg tablet 25 mg PO DAILY 12/04/23 12/04/23 History Past Med/Surg History Problem List (Updated 12/04/23 @ 12:44 by Bassem Mckeon MD) AMS (altered mental status) (Acute) Vision loss, left eye Severe tricuspid regurgitation Lip lesion BPH (benign prostatic hyperplasia) Lumbar disc disease CHF (congestive heart failure) Decompensated heart failure Multifocal PVCs with pairing (Acute) Pleural effusion (Acute) Delirium (Acute) Hypoxia (Acute) Atrial fibrillation on eliquis bid--follows with Dr. Barraza On anticoagulant therapy (Acute) eliquis bid Encounter for pre-operative examination Lumbar spinal stenosis (Acute) Achilles tendonitis, bilateral Plantar fasciitis, bilateral History of amputation of left hand History of colonoscopy 2020 HTN (hypertension) Sleep apnea does not use bipap as ordered Medical History Mitral regurgitation Presence of Watchman left atrial appendage closure device Occipital stroke Osteoarthritis History of kidney stones Rectal bleeding reason for scheduled colonoscopy On anticoagulant therapy eliquis bid Atrial fibrillation on eliquis bid--follows with Dr. 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 History of lumbar discectomy History of appendectomy History of tooth extraction all top teeth removed History of tonsillectomy and adenoidectomy History of bilateral cataract extraction 2020 History of colonoscopy 2020 Family History Other No family history of adverse response to anesthesia No pertinent family history Social History Smoking Status: Never smoker Tobacco Type: Cigarettes Second Hand Exposure: No; Do You Dip or Chew Tobacco: No; Hx Alcohol Use: No Hx Substance Use: No Preferred Language: Brazilian Communication Ability: Effective Vice Provost Required: No Beliefs That Will Affect Care: None Current Living Situation: Spouse Current Living Situation Comment: Has dementia Feels Safe at Home: Yes Assistive Devices: None Review of Systems Review of Systems: Constitutional: No fever, sweats or chills Eyes: No diplopia, no worsening or blurred vision ENT: normal hearing, no trouble swallowing Respiratory: No cough, sputum, dyspnea at rest or on exertion, Wears 2 to 3 L while at home times Cardiovascular: No chest pain, tightness or palpitations Abdomen: No pain, nausea, vomiting, diarrhea or constipation Musculoskeletal: No joint pain, calf pain, swelling Neurologic: No weakness, numbness/tingling, or balance problems Psychiatric: No anxiety or depression, Denies suicidal or homicidal ideations Skin: No rash or itch Physical Exam Physical Exam: General: awake, alert, no apparent distress, elderly white male Head: Normocephalic, atraumatic ENT: PERRL, EOMI, no pharyngeal exudate, mucous membranes moist Chest: On 2 LPM NC, diminished breath sounds throughout, expiratory wheeze audible, faint crackles, no rales Cardiac: irregularly irregular, rate controlled, no murmur, no JVD, normal peripheral pulses, good capillary refill Abdominal: protuberant abdomen, NABS x 4 quadrants, soft, nondistended, nontender to palpation, no rebound or guarding Extremities: Normal inspection, no peripheral edema or erythema, calfs nontender to palpation Psych: Normal mood and affect confused, denies auditory or visual hallucinations, denies SI and HI Neuro: AAO to self, place that he is in a hospital, cannot recall events from this morning, strength intact bilaterally and rated 4/5, no motor deficits, speech is clear, no peripheral sensory deficits Results & Data Results & Data Vital Signs (Past 12 Hours) Vital Signs Temp Pulse Pulse Resp BP BP Pulse Ox 12/04/23 16:00 68 18 143/84 H 97 12/04/23 14:50 96 12/04/23 14:47 74 20 167/107 H 96 12/04/23 12:26 63 19 97 12/04/23 10:23 72 12/04/23 10:17 37.1 C 64 18 131/90 95 O2 Del Method O2 Flow Rate 12/04/23 16:00 Nasal Cannula 2 12/04/23 14:50 Nasal Cannula 2 12/04/23 14:47 Nasal Cannula 2 12/04/23 12:26 Nasal Cannula 2 12/04/23 10:23 12/04/23 10:17 Nasal Cannula 2 Laboratory Results 12/04/23 11:08 Aerobic Blood Culture - Pending Blood Anaerobic Blood Culture - Pending 12/04/23 11:05 Aerobic Blood Culture - Pending Blood Anaerobic Blood Culture - Pending 12/04/23 12/04/23 Unknown 11:08 WBC 6.01 RBC 4.13 L Hgb 14.4 Hct 43.1 MCV 104.4 H MCH 34.9 H MCHC 33.4 RDW Std Deviation 54.7 H RDW Coeff of Neal 14.3 Plt Count 200 MPV 9.8 Immature Gran % (Auto) 0.2 Neut % (Auto) 64.7 Lymph % (Auto) 17.6 Barton % (Auto) 13.0 Eos % (Auto) 3.8 Baso % (Auto) 0.7 Neut # (Auto) 3.89 Lymph # (Auto) 1.06 L Barton # (Auto) 0.78 H Eos # (Auto) 0.23 Baso # (Auto) 0.04 Immature Gran # (Auto) 0.01 Sodium 141 Potassium 4.5 Chloride 107 Carbon Dioxide 29 Anion Gap 5 BUN 23 Creatinine 1.03 Est Cr Clr Drug Dosing 60.2 Est GFR ( Amer) 76.4 Est GFR (Non-Af Amer) 65.9 BUN/Creatinine Ratio 22.3 H Glucose 102 H Lactate 0.8 Calcium 9.2 Magnesium 2.0 Total Bilirubin 0.5 Direct Bilirubin 0.1 AST 28 ALT 28 Alkaline Phosphatase 79 Troponin I High Sens 4.1 Total Protein 6.8 Albumin 3.9 Procalcitonin < 0.02 Urine Color Yellow Urine Appearance Clear Urine pH 5.5 Ur Specific [place] >= 1.030 Urine Protein 1+ H Urine Glucose (UA) Negative Urine Ketones Negative Urine Blood Negative Urine Nitrite Negative Urine Bilirubin Negative Urine Urobilinogen Negative Ur Leukocyte Esterase Negative Urine RBC 3-5 H Urine WBC 0-5 Ur Epithelial Cells 3-5 H Urine Bacteria None Seen Hyaline Casts Present A Diagnostic Findings Chest X-Ray 12/04/23 10:47 SINGLE VIEW CHEST CLINICAL HISTORY: Sepsis FINDINGS: An AP, portable, upright chest radiograph is compared to study dated 07/15/2023.. The heart is enlarged noting atherosclerotic calcification of the thoracic aorta. There is pulmonary vascular congestion. The cervical chain projects over the mitral valve. There is bibasilar scarring/atelectasis. No airspace consolidation or large pleural effusion is identified. No pneumothorax is seen. The skeletal structures are osteopenic. The bony thorax is grossly intact. Arthritic change is seen in the shoulders. IMPRESSION: 1. Cardiomegaly with pulmonary vascular congestion. 2. No airspace consolidation or large pleural effusion is identified. ACT 112: Negative or not required by law. Electronically signed by: Tobi Swenson M.D. 12/04/2023 1:13 PM Abdomen/Pelvis CT 12/04/23 11:16 CT SCAN OF THE ABDOMEN AND PELVIS WITHOUT IV CONTRAST CLINICAL HISTORY: Change in mental status. Lower abdominal pain COMPARISON STUDY: Abdominal CT dated 12/05/2021. TECHNIQUE: CT scan of the abdomen and pelvis is performed from the lung bases to the proximal femora. Images are reviewed in the axial, sagittal, and coronal planes. IV contrast was not administered for this examination as per the referring clinician. Note that the examination was performed insignificantly suboptimal fashion without oral and IV contrast. There is also motion artifact. A dose lowering technique was utilized adhering to the principles of ALARA. CT DOSE: 3.83 mGy.cm FINDINGS: Lung bases: The heart is markedly enlarged and without pericardial effusion. Postsurgical change is seen in the expected location of the mitral valve. A small hiatal hernia is noted. The lung bases are clear noting bibasilar scarring/atelectasis. Liver: The unenhanced liver is normal in size, contour, and attenuation. There is no intrahepatic biliary ductal dilatation. Gallbladder: Surgically absent noting clips in the gallbladder fossa. Spleen: Normal in size and attenuation. Pancreas: The unenhanced pancreas is mildly atrophic and grossly unremarkable. Adrenal glands: Unremarkable. Kidneys: The unenhanced kidneys demonstrate cortical atrophy and are without hydronephrosis. There are no renal calculi identified. A 13 mm cyst is noted on the right. Abdominal vasculature: The abdominal aorta is normal in course and caliber noting moderate atherosclerotic calcification. Bowel: There is advanced colonic diverticulosis without CT evidence of acute diverticulitis. No bowel obstruction is seen. Moderate fecal retention is noted throughout the colon. The appendix is not identified and reported surgically absent. Peritoneum: There is no intraperitoneal free air or abdominal ascites. There is a fat-containing umbilical hernia. Lymphadenopathy: None. Pelvic viscera: The prostate gland is diminutive and heterogeneous. The bladder is mildly distended, and the wall is thickened/trabeculated indicating chronic outlet obstruction. A 4 mm bladder diverticulum is seen on the left. There are small bilateral fat-containing groin hernias. Skeletal structures: The skeletal structures are osteopenic. There is moderate to advanced lumbosacral spondylosis. Postlaminectomy changes seen in the lower lumbar region. Sclerotic change is noted in the pubic symphysis. No lytic or blastic lesions are seen. IMPRESSION: 1. Suboptimal examination without oral and IV contrast. 2. No acute infectious or inflammatory findings are identified in the abdomen or pelvis. 3. Marked cardiomegaly. 4. Colonic diverticulosis without CT evidence of acute diverticulitis. 5. Additional findings as above. ACT 112: Negative or not required by law. Electronically signed by: Tobi Swenson M.D. 12/04/2023 1:[address] 12/04/23 11:16 CT SCAN OF THE BRAIN WITHOUT IV CONTRAST CLINICAL HISTORY: Change in mental status. Hallucinations. COMPARISON STUDY: Abdominal CT dated 07/13/2023. TECHNIQUE: Unenhanced axial CT scan of the brain is performed from the vertex to the skull base. A dose lowering technique was utilized adhering to the princip les of ALA. FINDINGS: Brain parenchyma: A focus of right cerebellar encephalomalacia is unchanged and consistent with a remote insult. 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 A chronic appearing right occipital lobe infarct is new from 07/13/2023. There is age-related involutional change noting moderate subcortical and periventricular microangiopathic disease. There is no hemorrhage, mass effect, or evidence of acute territorial ischemia by CT criteria. Bland-white matter differentiation is preserved. No extra-axial fluid collection is seen. Ventricles, sulci, cisterns: Prominent secondary to involutional change. Intracranial vasculature: There is atherosclerotic calcification of the cavernous carotid arteries. Calvarium: Unremarkable. Sinuses and mastoids: The visualized paranasal sinuses are clear. The mastoid air cells are well pneumatized. Orbits: The bony orbits are grossly intact. There are bilateral ocular lens implants. IMPRESSION: There is no hemorrhage, mass effect, or evidence of acute territorial ischemia by CT criteria. ACT 112: Negative or not required by law. Electronically signed by: Tobi Swenson M.D. 12/04/2023 11:41 AM Supervising Physician Co-Signing Physician Notes Patient seen and examined independently. Discussed with above provider. Patient's presents with altered mental status after initiation of sertraline. In the ED, he was calm and cooperative; not in distress. He is oriented to time and place. Chest x-ray shows pulmonary edema. Patient lives alone; admitted for possible placement. Also IV Lasix for acute on chronic diastolic heart failure. I have reviewed the advanced practitioner's documentation, and I agree with, and take responsibility for the plan of care I spent a total of 25 minutes coordinating, documenting, and providing care for this patient excluding time spent in the performance of separately billed services. All of the aforementioned completed while collaborating with the assigned advanced practitioner for a full treatment plan (3) Atrial fibrillation Atrial fibrillation type: longstanding persistent Qualified Code(s): I48.11 - Longstanding persistent atrial fibrillation
[2023-12-04] MEDS: FUROSEMIDE INJ 20 MG/2 ML VIAL IV ONE (18:07)
[2023-12-04 20:00] LABS: Thyroid Stimulating Hormone 1.816 uIu/ml (0.300-4.500)
[2023-12-04] MEDS: ACETAMINOPHEN 500 MG TAB PO SCH (20:34)
[2023-12-04] MEDS: DOCUSATE SODIUM 100 MG CAP PO SCH (20:35)
[2023-12-04] MEDS: GABAPENTIN 300 MG CAP PO SCH (20:35)
[2023-12-05] MEDS: COUGH DROP (SUGAR FREE) LOZ 24 LOZ/1 BOX BUCCAL PRN (01:01)
[2023-12-05] MEDS: ACETAMINOPHEN 325 MG TAB PO PRN (01:26)
[2023-12-05 07:40] LABS: Hemoglobin 14.9 g/dl (14.0-18.0); Mean Corpuscular Hemoglobin 35.1 pg (25.0-34.0); Mean Corpuscular Hgb Conc 33.1 g/dL (32.0-36.0); Mean Corpuscular Volume 105.9 fL (80.0-100.0); Mean Platelet Volume 9.8 fL (9.4-12.4); Platelet Count 179 K/uL (130-400); RDW Coefficient of Variation 14.2 % (11.5-14.5); RDW Standard Deviation 55.3 fL (36.4-46.3); Red Blood Count 4.25 M/uL (4.70-6.10); White Blood Count 6.21 K/ul (4.8-10.8)
[2023-12-05 07:57] LABS: BUN Creatinine Ratio 23.5 (10-20); Creatinine Clr Calc Pharmacy 63.1 ml/min; Est GFR (African American) 81.2 ml/min
[2023-12-05] MEDS ORDERED: FUROSEMIDE 40 MG TAB PO SCH (09:00)
[2023-12-05] MEDS: allopurinoL 300 MG TAB PO SCH (09:06)
[2023-12-05] MEDS: ENOXAPARIN INJ 40 MG/0.4 ML SYR SQ SCH (09:06)
[2023-12-05] MEDS: CLOPIDOGREL BISULFATE 75 MG TAB PO SCH (09:07)
[2023-12-05] MEDS: ASPIRIN 81 MG ECTAB PO SCH (09:08)
[2023-12-05] MEDS: FINASTERIDE 5 MG TAB PO SCH (09:08)
[2023-12-05 09:09] LABS: Amphetamines+Metham, Urine Neg (Neg); Barbiturates, Urine Neg (Neg); Benzodiazepine, Urine Neg (Neg); Cocaine, Urine Neg (Neg); Fentanyl, Urine Neg (Neg); MDMA (Ecstacy), Urine Neg (Neg); Marijuana, Urine Neg (Neg); Methadone, Urine Neg (Neg); Opiate, Urine Neg (Neg); Phencyclidine, Urine Neg (Neg)
[2023-12-05] MEDS: FUROSEMIDE INJ 20 MG/2 ML VIAL IV SCH (09:09)
[2023-12-05] MEDS: METOPROLOL SUCC 25MG EXT REL TAB PO SCH (09:09)
--- NOTE | 2023-12-05 14:01 | Psychiatric Consultation ---
Date of Consultation December 05, 2023 Impression / Recommendations Impression Nikolas Silvestre is a 83 yo old man with history of occipital lobe stroke admitted for altered mental status. Diagnostically consistent with possible encephalopathy/delirium versus dementia with hallucinations (vascular dementia based on head CT findings vs lewy body dementia given fluctuations and visual hallucinations) versus sequelae from occipital lobe stroke/Александр Bonnet syndrome versus medication side effect (would be quite an atypical response to low dose SSRI but history of atypical side effects to buspar and duloxetine). Goal in dementia is to avoid medication management of behaviors if possible by maximizing non-pharmacologic strategies for behavioral management. However, given worsening paranoia and distress due to this and concerns about it impacting his safety of living alone could consider starting antipsychotic if patient and family feels risk/benefit profile favors treatment. Note all antipsychotic medications carry black box warning for increased risk of all- cause mortality in setting of dementia. Overall, I spent a total of 60 minutes with this case including review of chart records, review of labwork, review of EKG QTc, direct evaluation of the patient at bedside, counseling the patient, discussion of the patient with the hospitalist provider, discussion with the psychiatric liason during clinical rounds and documentation in the electronic health record. (1) AMS (altered mental status): (2) Visual hallucinations: Plan -Agree with discontinuation of sertraline, would not restart an alternative SSRI -Consider outpatient neurology workup for dementia -Consider seroquel 12.5 mg qhs and can titrate up to 25mg HS if tolerated and as needed for management of paranoia/hallucinations. -Consider melatonin 3mg HS -Continue medical workup to rule out and treat any underlying causes contributing to potential delirium, avoid or limit use of deliriogenic medications (benzodiazepines, opioids, anticholinergics) -Continue with delirium prevention measures: raising blinds during the day, closing at night, frequent re-orientation, contact with family/friends, explaining procedures/nursing care measures prior to physical contact, correct any hearing and visual impairments -Psych liason to attempt to get collateral information from pt's daughter -For behavioral emergency: olanzapine 2.5 mg IM x 1 (DO NOT exceed 10mg per 24 hours, check EKG if IM dose required, NEVER co-administer with IM or IV benzodiazepines). Psych History Identifying Data 83 yo man with history of chronic diastolic heart failure, valvular heart disease, A-fib status post Watchman device, PVD, DEX/CSA BiPAP intolerant, hypertension, prediabetes, GERD, BPH, hx vertigo, sacroiliitis, anxiety admitted medically for altered mental status. Psychiatry consulted for visual hallucinations. Chief Complaint "I can't go to rehab I need to have my back injections next week". History of Present Illness Nikolas was brought to the hospital by family due to concerns for increased paranoia and new visual hallucinations. Per admission H&P from collateral from family: "Bindu (step-daughter), Patient called his daughter this morning, stripping bed, thinking there were people plastering his house, which is not occurring per Bindu. His other daughter, Mira, is currently in [place] visiting friends, thinking she was having an affair but this also is not actually occurring. " He was recently started on sertraline 25mg daily about one week ago but he's only taken one or two doses. History of possible visual hallucinations with Buspar and duloxetine trials in the past. Nikolas denies any current visual hallucinations today but recalls seeing things in the past that were "illusions" and "like watching a movie strip in front of my eyes". He expresses frustration that he's been in the hospital previously (Jul 2023) and "no one could tell me what's wrong". He struggles to identify what if any symptoms he's dealing with but when asked specific questions endorses some depression since his of 50 years . He denies any SI. Endorses increased memory difficulties including losing his "pocketbook" even after looking for it the drawer where his step-daughter found it. Reports belief that his step- daughter is stealing his money and trying to mess with his medication. Does not want us to talk to her, Bindu, but gives permission for psych liason RN to call his daughter Mira. Allergies Allergy/AdvReac Type Severity Reaction Status Date / Time adhesive Allergy Mild BLISTER Verified 06/09/21 18:11 SKIN levofloxacin [From Levaquin] Allergy Unknown CAN'T Verified 06/09/21 18:11 REMEMBER duloxetine [From Cymbalta] AdvReac Intermediate confusion Verified 07/13/23 06:49 Home Medications Medication Instructions Recorded Confirmed Type finasteride 5 mg tablet 5 mg PO QAM 06/09/21 12/04/23 History gabapentin 300 mg capsule 300 mg PO TID 06/09/21 12/04/23 History acetaminophen 500 mg tablet 1,000 mg PO AMPM 07/13/23 12/04/23 History allopurinol 300 mg tablet 300 mg PO QAM 07/13/23 12/04/23 History aspirin 81 mg chewable tablet 81 mg PO QAM 07/13/23 12/04/23 History docusate sodium 100 mg capsule 100 mg PO BID 07/13/23 12/04/23 History meclizine 12.5 mg tablet 12.5 mg PO BID PRN Dizziness 07/13/23 12/04/23 History tramadol 50 mg tablet 50 mg PO Q6 PRN pain,severe 07/13/23 12/04/23 History metoprolol succinate 25 mg 25 mg PO QAM #30 tabs 07/15/23 12/04/23 Rx tablet,extended release 24 hr clopidogrel 75 mg tablet 75 mg PO DAILY 08/26/23 12/04/23 History furosemide 20 mg tablet (Lasix) 40 mg PO DAILY 12/04/23 12/04/23 History ketoconazole 2 % topical cream 1 applic topical UD 12/04/23 12/04/23 History sertraline 25 mg tablet 25 mg PO DAILY 12/04/23 12/04/23 History Patient History Medical History Mitral regurgitation Presence of Watchman left atrial appendage closure device Occipital stroke Osteoarthritis History of kidney stones Rectal bleeding reason for scheduled colonoscopy Surgical History S/P TURP H/O cystoscopy H/O mitral valve repair Amputation of left hand History of lumbar discectomy History of appendectomy History of tooth extraction all top teeth removed History of tonsillectomy and adenoidectomy History of bilateral cataract extraction 2020 Family History Other No family history of adverse response to anesthesia No pertinent family history Social History Smoking Status: Never smoker Tobacco Type: Cigarettes Second Hand Exposure: No; Do You Dip or Chew Tobacco: No; Hx Alcohol Use: No Hx Substance Use: No Preferred Language: Indonesian Communication Ability: Effective Forestry Instructor Required: No Beliefs That Will Affect Care: None Current Living Situation: Alone Current Living Situation Comment: Has dementia Feels Safe at Home: Yes Safety Concerns: Feels Safe At This Time Assistive Devices: Cane, Oxygen - Continuous and Walker Physical Exam Psychiatric: Orientation: alert, oriented to person and oriented to place Apperance: appropriately dressed and appropriately groomed Eye Contact: good eye contact Motor Behavior: no abnormal motor movements Speech: normal rate/rhythm/volume of speech Affect: + tearful affect and + irritable affect Mood: + anxious mood and + irritable mood Thought Process: + looseness of associations and + perseveration Thought Content: + preoccupation and + paranoid Suicidal Thoughts: denies suicidal thoughts Homicidal Thoughts: denies homicidal thoughts Hallucinations: no auditory hallucinations and no visual hallucinations Cognition: remote memory grossly intact, attention grossly intact and language grossly intact; + recent memory not intact Insight: + poor insight Judgment: + limited judgement Vital Signs (Past 24 Hours): Last Vital Signs Temp 36.6 C 12/05/23 01:00 Pulse 73 12/05/23 11:25 Resp 20 12/05/23 11:25 BP 129/86 12/05/23 11:25 Pulse Ox 94 12/05/23 11:25 O2 Del Method Nasal Cannula 12/05/23 11:25 O2 Flow Rate 3 12/05/23 11:25 Results & Data (PSY) Diagnostic Findings Per radiologist report of head CT: "A focus of right cerebellar encephalomalacia is unchanged and consistent with a remote insult. 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 A chronic appearing right occipital lobe infarct is new from 07/13/2023. There is age-related involutional change noting moderate subcortical and periventricular microangiopathic disease." Medications Administered Acetaminophen (Acetaminophen 500 Mg Tab) 1,000 mg PO BID DANIELLE Stop: 01/03/24 19:59 Last Admin: 12/05/23 09:07 Dose: 1,000 mg Documented By: Admin: 12/04/23 20:34 Dose: 1,000 mg Documented By: JOSELIN Acetaminophen (Acetaminophen 325 Mg Tab) 650 mg PO Q4H PRN PRN Reason: Moderate Pain (Scale 4, 5, 6) Stop: 01/03/24 19:25 Last Admin: 12/05/23 01:26 Dose: 650 mg Documented By: WILBERT Allopurinol ([facility]ol 300 Mg Tab) [facility] [place] Stop: 01/04/24 08:59 Last Admin: 12/05/23 09:06 Dose: 300 mg Documented By: JOHNIE Aspirin (Aspirin 81 Mg Ectab) 81 mg PO QAM [facility] Stop: 01/04/24 08:59 Last Admin: 12/05/23 09:08 Dose: 81 mg Documented By: JOHNIE Clopidogrel Bisulfate (Clopidogrel Bisulfate 75 Mg Tab) 75 mg PO DAILY [facility] Stop: 01/04/24 08:59 Last Admin: 12/05/23 09:07 Dose: 75 mg Documented By: JOHNIE Docusate Sodium (Docusate Sodium 100 Mg Cap) 100 mg PO BID [facility] Stop: 01/03/24 20:59 Last Admin: 12/05/23 09:08 Dose: 100 mg Documented By: Admin: 12/04/23 20:35 Dose: 100 mg Documented By: JOSELIN Enoxaparin Sodium (Enoxaparin Inj 40 Mg/0.4 Ml Syr) 40 mg SQ [facility] Stop: 01/04/24 08:59 Last Admin: 12/05/23 09:06 Dose: 40 mg Documented By: JOHNIE Finasteride (Finasteride 5 Mg Tab) [facility] [place] Stop: 01/04/24 08:59 Last Admin: 12/05/23 09:08 Dose: 5 mg Documented By: JOHNIE Furosemide (Furosemide Inj 20 Mg/2 Ml Vial) 20 mg IV DAILY [facility] Stop: 01/04/24 08:59 Last Admin: 12/05/23 09:09 Dose: 20 mg Documented By: JOHNIE Gabapentin (Gabapentin 300 Mg Cap) 300 mg PO TID [facility] Stop: 01/03/24 20:59 Last Admin: 12/05/23 09:07 Dose: 300 mg Documented By: Admin: 12/04/23 20:35 Dose: 300 mg Documented By: JOSELIN Menthol (Cough Drop (Sugar Free) Ap 24 Ap/1 Box) 1 ap BUCCAL Q6H PRN PRN Reason: Sore Throat Stop: 01/04/24 00:12 Last Admin: 12/05/23 01:01 Dose: 1 ap Documented By: WILBERT Metoprolol Succinate (Metoprolol Succ 25mg Ext Rel Tab) 25 mg PO QA DANIELLE Stop: 01/04/24 08:59 Last Admin: 12/05/23 09:09 Dose: 25 mg Documented By: JOHNIE Coding Level of Care Code 67137 IN/OBS CONSULT LVL 4,60M Diagnoses AMS (altered mental status) R41.82 Visual hallucinations R44.1
[2023-12-05] MEDS: OLANZapine 10 MG/2.1 ML SDV IM STA (15:16)
--- NOTE | 2023-12-05 15:16 | Hospitalist Progress Note ---
Date of Service December 05, 2023 Assessment & Plan (1) AMS (altered mental status): (2) CHF (congestive heart failure): (3) Atrial fibrillation: (4) HTN (hypertension): (5) Presence of Watchman left atrial appendage closure device: (6) Mitral regurgitation: Plan: AMS Possible Metabolic/toxic encephalopathy Possible side effect from SSRI Patient presented with hallucination after he was started on sertraline - CT reviewed: small chronic left parietal lobe infarct is also unchanged. A chronic appearing right occipital lobe infarct is new from 07/13/2023. There is age-related involutional change noting moderate subcortical and periventricular microangiopathic disease. There is no hemorrhage, mass effect, or evidence of acute territorial ischemia by CT criteria. - Lives at home alone, in a trailor, O2 dependent - family is concerned that he can't go home - UA does not appear grossly infected, no other acute signs of infection, follow blood cultures Psychiatry consulted; started on Seroquel 12.5mg HS Frequent re-orientation Continue on aspirin, started on rosuvastatin for possible vascular dementia. patient not under anticoagulation give hx of GI bleeding and has watchman procedure. Acute on Chronic diastolic heart failure Valvular heart disease Severe mitral regurgitation S/P surgery H/O tricuspid regurgitation Peripheral vascular disease -CXR on andmission:Cardiomegaly with pulmonary vascular congestion. -ECHO Jun 2023: Mild concentric LVH. Left ventricle wall motion is normal. Left ventricle systolic function is normal. EF 55 to 60%. Left atrium is severely dilated. Evidence of percutaneous mitral valve clip. Mild mitral and tricuspid regurgitation. Pulmonary artery systolic pressure estimated to be 51 mmHg. -Monitor volume status, I/Os, daily weight -Continue metoprolol, lisinopril -on iv lasix daily. Persistent atrial fibrillation S/P Watchman procedure -Continue metoprolol -Monitor and adjust medications as needed Chronic back pain H/O sacroiliitis H/O lumbar laminectomy for severe lumbar spinal stenosis -Last SI joint injection was 1 month ago per record -Patient declined lumbosacral MRI and additional injections -Cautious use of pain medications Depression -Sertaline disconitnue; -Psychiatry consulted; started on seroquel Prediabetes - hemoglobin A1c of 5.6 last year BPH - chronic, stable Gout - chronic, stable Obesity -BMI 35 -outpatient follow up DVT PPx: Lovenox SQ Lines: PIV x 1 FEN/GI: Heart healthy easy to chew CODE: DNR/DNI Dispo: PT/OT eval; may require rehab. Time spent evaluating patient, direct bedside care, chart review, placing o rders, interpretation of diagnostic studies, discussion with consultants, patient, and family members, as well as other required patient management activities is 50 minutes Please note the above document was generated using voice recognition software. It may contain grammatical, syntax or spelling errors. Any formal questions or concerns about the content, text or information contained within the body of this dictation should be directly addressed to the provider for clarification Admission and Anticipated Discharge Date Admission Date: December 04, 2023 Subjective Patient seen and examined at bedside He is awake and able to answer most of the question appropriately Required IM Zyprexa for delirium Review of Systems Review of Systems: All systems reviewed & are unremarkable except as noted in Subjective Physical Exam Physical Exam: Constitutional: AOx3; not in any distress Respiratory: Bilateral basal crackles Cardiovascular: RRR, no murmur, no edema Vessels: no JVD or carotid bruit Chest: normal inspection of chest Abdomen: normal bowel sounds, soft, nontender, no hepatosplenomegaly Musculoskeletal: no cyanosis or clubbing, extremities motor strength 5/5 Skin: no rashes, warm and dry normal turgor Neurologic: PERRL, EOMI, accommodation nl, no face palsy, no dysarthria CN's II- XI intact bilaterally and moves all extremities Results & Data Results & Data Vital Signs (Past 12 Hours) Vital Signs Pulse Pulse Resp BP Pulse Ox Pulse Ox O2 Del Method 12/05/23 14:52 74 20 130/91 96 Nasal Cannula 12/05/23 14:00 95 12/05/23 14:00 77 12/05/23 11:25 73 20 129/86 94 Nasal Cannula 12/05/23 08:00 78 20 142/88 H 94 Nasal Cannula 12/05/23 07:17 74 20 157/102 H 92 Nasal Cannula 12/05/23 06:50 74 12/05/23 05:20 76 18 117/74 98 Nasal Cannula O2 Del Method O2 Flow Rate O2 Flow Rate 12/05/23 14:52 3 12/05/23 14:00 Nasal Cannula 3 12/05/23 14:00 12/05/23 11:25 3 12/05/23 08:00 2 12/05/23 07:17 2 12/05/23 06:50 12/05/23 05:20 2 (3) Atrial fibrillation Atrial fibrillation type: longstanding persistent Qualified Code(s): I48.11 - Longstanding persistent atrial fibrillation
[2023-12-05] MEDS: ROSUVASTATIN CALCIUM 20 MG TAB PO SCH (16:50)
[2023-12-05] MEDS: QUEtiapine FUMARATE 25 MG TABLET PO SCH (20:45)
[2023-12-05] MEDS: LORATADINE 10 MG TAB PO SCH (20:45)
[2023-12-06] MEDS: CHLORASEPTIC (PHENOL) 1.4% SOLN 180 ML BTL MT PRN (01:32)
[2023-12-06 06:58] LABS: BUN Creatinine Ratio 23.1 (10-20); Calcium 8.8 mg/dl (8.6-10.3); Creatinine Clr Calc Pharmacy 58.6 ml/min; Est GFR (African American) 75.5 ml/min; Est GFR (Non-African American) 65.2 ml/min; Potassium 3.5 mmol/L (3.5-5.1)
[2023-12-06 07:13] LABS: Estimated Average Glucose 114 mg/dl; Hemoglobin A1C 5.6 % (4.5-5.6)
[2023-12-06] MEDS: FLUTICASONE PROPIONATE NA SPR 16 GM BTL SCH (10:19)
[2023-12-06] MEDS: MAGNESIUM HYDROXIDE SUSP 30 ML UDC PO SCH (10:19)
--- NOTE | 2023-12-06 11:43 | Hospitalist Progress Note ---
Date of Service December 06, 2023 Assessment & Plan (1) AMS (altered mental status): (2) CHF (congestive heart failure): (3) Atrial fibrillation: (4) HTN (hypertension): (5) Presence of Watchman left atrial appendage closure device: (6) Mitral regurgitation: Plan: AMS Possible Metabolic/toxic encephalopathy Possible side effect from SSRI Patient presented with hallucination after he was started on sertraline - CT reviewed: small chronic left parietal lobe infarct is also unchanged. A chronic appearing right occipital lobe infarct is new from 07/13/2023. There is age-related involutional change noting moderate subcortical and periventricular microangiopathic disease. There is no hemorrhage, mass effect, or evidence of acute territorial ischemia by CT criteria. - Lives at home alone, in a trailor, O2 dependent - family is concerned that he can't go home - UA does not appear grossly infected, no other acute signs of infection, follow blood cultures Psychiatry consulted; started on Seroquel 12.5mg HS Frequent re-orientation Continue on aspirin, started on rosuvastatin for possible vascular dementia. patient not under anticoagulation give hx of GI bleeding and has watchman procedure. Acute on Chronic diastolic heart failure Valvular heart disease Severe mitral regurgitation S/P surgery H/O tricuspid regurgitation Peripheral vascular disease -CXR on andmission:Cardiomegaly with pulmonary vascular congestion. -ECHO Jun 2023: Mild concentric LVH. Left ventricle wall motion is normal. Left ventricle systolic function is normal. EF 55 to 60%. Left atrium is severely dilated. Evidence of percutaneous mitral valve clip. Mild mitral and tricuspid regurgitation. Pulmonary artery systolic pressure estimated to be 51 mmHg. -Monitor volume status, I/Os, daily weight -Continue metoprolol, lisinopril -on iv lasix daily. Persistent atrial fibrillation S/P Watchman procedure -Continue metoprolol -Monitor and adjust medications as needed Chronic back pain H/O sacroiliitis H/O lumbar laminectomy for severe lumbar spinal stenosis -Last SI joint injection was 1 month ago per record -Patient declined lumbosacral MRI and additional injections -Cautious use of pain medications Depression -Sertaline disconitnue; -Psychiatry consulted; started on seroquel Prediabetes - hemoglobin A1c of 5.6 last year BPH - chronic, stable Gout - chronic, stable Obesity -BMI 35 -outpatient follow up DVT PPx: Lovenox SQ Lines: PIV x 1 FEN/GI: Heart healthy easy to chew CODE: DNR/DNI Dispo: PT OT eval completed; recommend home. Will remove one-to-one monitoring. Possible discharge in next few days. Currently on IV diuretics for acute on chronic diastolic heart failure Time spent evaluating patient, direct bedside care, chart review, placing orders, interpretation of diagnostic studies, discussion with consultants, patient, and family members, as well as other required patient management activities is 50 minutes Please note the above document was generated using voice recognition software. It may contain grammatical, syntax or spelling errors. Any formal questions or concerns about the content, text or information contained within the body of this dictation should be directly addressed to the provider for clarification Admission and Anticipated Discharge Date Admission Date: December 04, 2023 Subjective Patient seen and examined at bedside. His alert oriented x 3; not in distress. No agitation overnight Reports nasal stuffiness. Saturating well at 2 L of oxygen Physical Exam Physical Exam: Constitutional: AOx3; not in any distress Respiratory: Bilateral basal crackles Cardiovascular: RRR, no murmur, no edema Vessels: no JVD or carotid bruit Chest: normal inspection of chest Abdomen: normal bowel sounds, soft, nontender, no hepatosplenomegaly Musculoskeletal: no cyanosis or clubbing, extremities motor strength 5/5 Skin: no rashes, warm and dry normal turgor Neurologic: PERRL, EOMI, accommodation nl, no face palsy, no dysarthria CN's II- XI intact bilaterally and moves all extremities Results & Data Results & Data Vital Signs (Past 12 Hours) Vital Signs Temp Pulse Pulse Resp BP Pulse Ox O2 Del Method 12/06/23 11:30 36.3 C L 78 20 125/84 93 Nasal Cannula 12/06/23 07:57 37.0 C 82 20 141/80 H 96 Nasal Cannula 12/06/23 07:24 78 12/06/23 07:11 Nasal Cannula 12/06/23 02:50 36.8 C 80 18 162/95 H 95 Nasal Cannula O2 Flow Rate 12/06/23 11:30 2 12/06/23 07:57 2 12/06/23 07:24 12/06/23 07:11 2 12/06/23 02:50 2 (3) Atrial fibrillation Atrial fibrillation type: longstanding persistent Qualified Code(s): I48.11 - Longstanding persistent atrial fibrillation
[2023-12-07 07:22] LABS: Calcium 9.1 mg/dl (8.6-10.3); Creatinine Clr Calc Pharmacy 63.7 ml/min; Est GFR (African American) 83.2 ml/min; Est GFR (Non-African American) 71.8 ml/min; Potassium 3.7 mmol/L (3.5-5.1)
--- NOTE | 2023-12-07 13:06 | Hospitalist Progress Note ---
Date of Service December 07, 2023 Assessment & Plan (1) AMS (altered mental status): (2) CHF (congestive heart failure): (3) Atrial fibrillation: (4) HTN (hypertension): (5) Presence of Watchman left atrial appendage closure device: (6) Mitral regurgitation: Plan: AMS Possible Metabolic/toxic encephalopathy Possible side effect from SSRI Patient presented with hallucination after he was started on sertraline - CT reviewed: small chronic left parietal lobe infarct is also unchanged. A chronic appearing right occipital lobe infarct is new from 07/13/2023. There is age-related involutional change noting moderate subcortical and periventricular microangiopathic disease. There is no hemorrhage, mass effect, or evidence of acute territorial ischemia by CT criteria. - Lives at home alone, in a trailor, O2 dependent - family is concerned that he can't go home - UA does not appear grossly infected, no other acute signs of infection, follow blood cultures Psychiatry consulted; started on Seroquel 12.5mg HS Frequent re-orientation Continue on aspirin, started on rosuvastatin for possible vascular dementia. patient not under anticoagulation give hx of GI bleeding and has watchman procedure. Acute on Chronic diastolic heart failure Valvular heart disease Severe mitral regurgitation S/P surgery H/O tricuspid regurgitation Peripheral vascular disease -CXR on andmission:Cardiomegaly with pulmonary vascular congestion. -ECHO Jun 2023: Mild concentric LVH. Left ventricle wall motion is normal. Left ventricle systolic function is normal. EF 55 to 60%. Left atrium is severely dilated. Evidence of percutaneous mitral valve clip. Mild mitral and tricuspid regurgitation. Pulmonary artery systolic pressure estimated to be 51 mmHg. -Monitor volume status, I/Os, daily weight -Continue metoprolol, lisinopril -Status post IV Lasix, will restart an oral Lasix 40 mg once a day tomorrow a.m. Persistent atrial fibrillation S/P Watchman procedure -Continue metoprolol -Monitor and adjust medications as needed Chronic back pain H/O sacroiliitis H/O lumbar laminectomy for severe lumbar spinal stenosis -Last SI joint injection was 1 month ago per record -Patient declined lumbosacral MRI and additional injections -Cautious use of pain medications Depression -Sertaline disconitnue; -Psychiatry consulted; started on seroquel Prediabetes - hemoglobin A1c of 5.6 last year BPH - chronic, stable Gout - chronic, stable Obesity -BMI 35 -outpatient follow up DVT PPx: Lovenox SQ Lines: PIV x 1 FEN/GI: Heart healthy easy to chew CODE: DNR/DNI Dispo: PT OT eval completed; recommend home. As per case management, daughter arranging for additional caregiver. Plan to monitor for delirium pain overnight. Time spent evaluating patient, direct bedside care, chart review, placing orders, interpretation of diagnostic studies, discussion with consultants, patient, and family members, as well as other required patient management activities is 50 minutes Please note the above document was generated using voice recognition software. It may contain grammatical, syntax or spelling errors. Any formal questions or concerns about the content, text or information contained within the body of this dictation should be directly addressed to the provider for clarification Admission and Anticipated Discharge Date Admission Date: December 04, 2023 Subjective Patient seen and examined at bedside. Comfortable; not in distress. Denies fever, chills, chest pain, shortness of breath, abdominal pain or urinary symptoms. No significant overnight events Review of Systems Review of Systems: All systems reviewed & are unremarkable except as noted in Subjective Physical Exam Physical Exam: Constitutional: AOx3; not in any distress Respiratory:clear breath sounds Cardiovascular: RRR, no murmur, no edema Vessels: no JVD or carotid bruit Chest: normal inspection of chest Abdomen: normal bowel sounds, soft, nontender, no hepatosplenomegaly Musculoskeletal: no cyanosis or clubbing, extremities motor strength 5/5 Skin: no rashes, warm and dry normal turgor Neurologic: PERRL, EOMI, accommodation nl, no face palsy, no dysarthria CN's II- XI intact bilaterally and moves all extremities Results & Data Results & Data Vital Signs (Past 12 Hours) Vital Signs Temp Pulse Resp BP BP Pulse Ox O2 Del Method 12/07/23 11:45 36.9 C 60 18 101/65 91 Nasal Cannula 12/07/23 07:48 36.6 C 66 18 137/90 90 Nasal Cannula 12/07/23 07:25 Nasal Cannula 12/07/23 03:48 36.6 C 52 L 18 131/59 L 95 Room Air O2 Flow Rate 12/07/23 11:45 2 12/07/23 07:48 2 12/07/23 07:25 2 12/07/23 03:48 (3) Atrial fibrillation Atrial fibrillation type: longstanding persistent Qualified Code(s): I48.11 - Longstanding persistent atrial fibrillation
[2023-12-08 08:17] LABS: Calcium 8.9 mg/dl (8.6-10.3); Potassium 3.9 mmol/L (3.5-5.1)
[2023-12-08 08:23] LABS: BUN Creatinine Ratio 22.1 (10-20); Creatinine Clr Calc Pharmacy 70.6 ml/min; Est GFR (African American) 91.6 ml/min; Est GFR (Non-African American) 79.1 ml/min
[2023-12-08] MEDS: FUROSEMIDE 40 MG TAB PO SCH (09:45)
--- NOTE | 2023-12-08 15:12 | Hospitalist Progress Note ---
Date of Service December 08, 2023 Assessment & Plan (1) AMS (altered mental status): (2) CHF (congestive heart failure): (3) Atrial fibrillation: (4) HTN (hypertension): (5) Presence of Watchman left atrial appendage closure device: (6) Mitral regurgitation: Plan: AMS Possible Metabolic/toxic encephalopathy Possible side effect from SSRI Patient presented with hallucination after he was started on sertraline - CT reviewed: unchanged small chronic left parietal lobe infarct. A chronic appearing right occipital lobe infarct is new from 07/13/2023. There is age- related involutional change noting moderate subcortical and periventricular microangiopathic disease. There is no hemorrhage, mass effect, or evidence of acute territorial ischemia by CT criteria. - Lives at home alone, in a trailor, O2 dependent - family is concerned that he can't go home - UA does not appear grossly infected, no other acute signs of infection, follow blood cultures Psychiatry consulted; started on Seroquel 12.5mg HS Frequent re-orientation Continue on aspirin, started on rosuvastatin for possible vascular dementia. continue. patient not under anticoagulation give hx of GI bleeding and has watchman procedure. Acute on Chronic diastolic heart failure Valvular heart disease Severe mitral regurgitation S/P surgery H/O tricuspid regurgitation Peripheral vascular disease -CXR on andmission:Cardiomegaly with pulmonary vascular congestion. -ECHO Jun 2023: Mild concentric LVH. Left ventricle wall motion is normal. Left ventricle systolic function is normal. EF 55 to 60%. Left atrium is severely dilated. Evidence of percutaneous mitral valve clip. Mild mitral and tricuspid regurgitation. Pulmonary artery systolic pressure estimated to be 51 mmHg. -Monitor volume status, I/Os, daily weight -Continue metoprolol, lisinopril -Status post IV Lasix, c/w oral Lasix 40 mg once a day Persistent atrial fibrillation S/P Watchman procedure -Continue metoprolol -Monitor and adjust medications as needed Chronic back pain H/O sacroiliitis H/O lumbar laminectomy for severe lumbar spinal stenosis -Last SI joint injection was 1 month ago per record -Patient declined lumbosacral MRI and additional injections -Cautious use of pain medications Depression -Sertaline disconitnue; -Psychiatry consulted; started on seroquel Prediabetes - hemoglobin A1c of 5.6 last year BPH - chronic, stable Gout - chronic, stable Obesity -BMI 35 -outpatient follow up DVT PPx: Lovenox SQ Lines: PIV x 1 FEN/GI: Heart healthy easy to chew CODE: DNR/DNI Dispo: PT OT eval completed; recommend home. As per case management, daughter arranging for additional caregiver/other arrangements. Once social issues resolved, pt can be discharged. med/surg until then. Please note the above document was generated using voice recognition software. It may contain grammatical, syntax or spelling errors. Any formal questions or concerns about the content, text or information contained within the body of this dictation should be directly addressed to the provider for clarification Admission and Anticipated Discharge Date Admission Date: December 04, 2023 Subjective Patient seen and examined at bedside. Comfortable; not in distress. Denies fever, chills, chest pain, shortness of breath, abdominal pain or urinary symptoms. No significant overnight events, reports eating ok and moving bowels ok. Physical Exam Physical Exam: Constitutional: AOx3; not in any distress Respiratory:clear breath sounds Cardiovascular: RRR, no murmur, no edema Vessels: no JVD or carotid bruit Chest: normal inspection of chest Abdomen: normal bowel sounds, soft, nontender, no hepatosplenomegaly Musculoskeletal: no cyanosis or clubbing, extremities motor strength 5/5 Skin: no rashes, warm and dry normal turgor Neurologic: PERRL, EOMI, accommodation nl, no face palsy, no dysarthria CN's II- XI intact bilaterally and moves all extremities Results & Data Results & Data Vital Signs (Past 12 Hours) Vital Signs Temp Pulse Pulse Resp BP Pulse Ox O2 Del Method 12/08/23 14:48 88 12/08/23 10:45 36.8 C 77 19 141/91 H 91 Room Air 12/08/23 09:35 93 Room Air 12/08/23 09:29 122/66 94 Nasal Cannula 12/08/23 09:00 Room Air 12/08/23 07:52 97 H 12/08/23 07:34 36.5 C 80 20 147/101 H 94 Nasal Cannula O2 Flow Rate 12/08/23 14:48 12/08/23 10:45 12/08/23 09:35 12/08/23 09:29 1 12/08/23 09:00 12/08/23 07:52 12/08/23 07:34 1 (3) Atrial fibrillation Atrial fibrillation type: longstanding persistent Qualified Code(s): I48.11 - Longstanding persistent atrial fibrillation
--- NOTE | 2023-12-09 15:48 | Hospitalist Progress Note ---
Date of Service December 09, 2023 Assessment & Plan (1) AMS (altered mental status): (2) CHF (congestive heart failure): (3) Atrial fibrillation: (4) HTN (hypertension): (5) Presence of Watchman left atrial appendage closure device: (6) Mitral regurgitation: Plan: AMS Possible Metabolic/toxic encephalopathy Possible side effect from SSRI Patient presented with hallucination after he was started on sertraline - CT reviewed: unchanged small chronic left parietal lobe infarct. A chronic appearing right occipital lobe infarct is new from 07/13/2023. There is age- related involutional change noting moderate subcortical and periventricular microangiopathic disease. There is no hemorrhage, mass effect, or evidence of acute territorial ischemia by CT criteria. - Lives at home alone, in a trailor, O2 dependent - family is concerned that he can't go home - UA does not appear grossly infected, no other acute signs of infection, follow blood cultures Psychiatry consulted; started on Seroquel 12.5mg HS Frequent re-orientation Continue on aspirin, started on rosuvastatin for possible vascular dementia. continue. patient not under anticoagulation give hx of GI bleeding and has watchman procedure. Acute on Chronic diastolic heart failure Valvular heart disease Severe mitral regurgitation S/P surgery H/O tricuspid regurgitation Peripheral vascular disease -CXR on andmission:Cardiomegaly with pulmonary vascular congestion. -ECHO Jun 2023: Mild concentric LVH. Left ventricle wall motion is normal. Left ventricle systolic function is normal. EF 55 to 60%. Left atrium is severely dilated. Evidence of percutaneous mitral valve clip. Mild mitral and tricuspid regurgitation. Pulmonary artery systolic pressure estimated to be 51 mmHg. -Monitor volume status, I/Os, daily weight -Continue metoprolol, lisinopril -Status post IV Lasix, c/w oral Lasix 40 mg once a day -He is euvolemic Persistent atrial fibrillation S/P Watchman procedure -Continue metoprolol -Monitor and adjust medications as needed Chronic back pain H/O sacroiliitis H/O lumbar laminectomy for severe lumbar spinal stenosis -Last SI joint injection was 1 month ago per record -Patient declined lumbosacral MRI and additional injections -Cautious use of pain medications Depression -Sertraline discontinued; -Psychiatry consulted; started on seroquel Prediabetes - hemoglobin A1c of 5.6 last year BPH - chronic, stable Gout - chronic, stable Obesity -BMI 35 -outpatient follow up DVT PPx: Lovenox SQ CODE: DNR/DNI Dispo: PT OT eval completed; recommend home. As per case management, daughter arranging for additional caregiver/other arrangements. Daughter unable to secure caregivers and plan is to go to [facility] on Wednesday. Pt was seen and examined in collaboration with Dr. Basurto, please see addendum A total of 42 minutes was spent coordinating, documenting, and providing care for this patient excluding time spent in the performance of separately billed services. This included personally viewing all current laboratories and imaging studies, medication reconciliation, outpatient chart review, and discussion with specialists. Admission and Anticipated Discharge Date Admission Date: December 04, 2023 Supervising Physician Co-Signing Physician Notes Pt was not seen and evaluated by myself. Subjective Pt was seen and examined in room 383-1. Follow up metabolic encephalopathy. He is lying in bed and offers no acute complaints. He would like to talk to CM regarding his POA paperwork. He is hopeful to go home soon. He denies f/c/s, chest pain, sob, n/v/d. Review of Systems Review of Systems: All systems reviewed & are unremarkable except as noted in HPI & below Physical Exam Physical Exam: Gen: WD/WN, NAD, A&O x3 HEENT: Normocephalic, atraumatic, conjunctivae moist, sclerae anicteric, mucous membranes moist. Lung: Clear to Auscultation bilaterally, no wheezes/rales/rhonchi Heart: Regular rate, regular rhythm, no murmurs, rubs, or gallops Abdomen: obese abd, Soft, NT, ND +BS x 4 Extremities: No edema, L partial hand amputation Skin: Warm, no rash, negative turgor. Results & Data Results & Data Vital Signs (Past 12 Hours) Vital Signs Temp Pulse Resp BP Pulse Ox O2 Del Method 12/09/23 14:59 37 C 81 16 152/88 H 95 Room Air 12/09/23 10:17 Room Air 12/09/23 07:36 36.4 C L 94 H 19 157/90 H 92 Room Air Medications Administered Current Inpatient Medications Acetaminophen (Acetaminophen 500 Mg Tab) 1,000 mg PO BID DANIELLE Stop: 01/03/24 19:59 Last Admin: 12/09/23 08:00 Dose: Not Given Acetaminophen (Acetaminophen 325 Mg Tab) 650 mg PO Q4H PRN PRN Reason: Moderate Pain (Scale 4, 5, 6) Stop: 01/03/24 19:25 Last Admin: 12/09/23 07:58 Dose: 650 mg Allopurinol (Allopurinol 300 Mg Tab) [facility] [place] Stop: 01/04/24 08:59 Last Admin: 12/09/23 07:50 Dose: 300 mg Aspirin (Aspirin 81 Mg Ectab) 81 mg [facility] [place] Stop: 01/04/24 08:59 Last Admin: 12/09/23 07:50 Dose: 81 mg Clopidogrel Bisulfate (Clopidogrel Bisulfate 75 Mg Tab) 75 mg PO DAILY [facility] Stop: 01/04/24 08:59 Last Admin: 12/09/23 07:50 Dose: 75 mg Docusate Sodium (Docusate Sodium 100 Mg Cap) 100 mg PO BID [facility] Stop: 01/03/24 20:59 Last Admin: 12/09/23 07:58 Dose: 100 mg Enoxaparin Sodium (Enoxaparin Inj 40 Mg/0.4 Ml Syr) 40 mg SQ [facility] Stop: 01/04/24 08:59 Last Admin: 12/09/23 07:53 Dose: 40 mg Finasteride (Finasteride 5 Mg Tab) 5 mg PO [facility] Stop: 01/04/24 08:59 Last Admin: 12/09/23 07:54 Dose: 5 mg Fluticasone Propionate (Fluticasone Propionate Na Spr 16 Gm Btl) 2 sprays NA BID [facility] Stop: 01/05/24 09:44 Last Admin: 12/09/23 07:52 Dose: 2 sprays Furosemide (Furosemide 40 Mg Tab) 40 mg [facility] [place] Stop: 01/07/24 08:59 Last Admin: 12/09/23 07:53 Dose: 40 mg Gabapentin (Gabapentin 300 Mg Cap) 300 mg PO TID [facility] Stop: 01/03/24 20:59 Last Admin: 12/09/23 15:01 Dose: 300 mg Loratadine (Loratadine 10 Mg Tab) 10 mg [facility] [place] Stop: 01/04/24 18:29 Last Admin: 12/09/23 07:49 Dose: 10 mg Magnesium Hydroxide (Magnesium Hydroxide Susp 30 Ml Udc) 30 ml PO BID [facility] Stop: 01/05/24 09:44 Last Admin: 12/09/23 07:58 Dose: 30 ml Menthol (Cough Drop (Sugar Free) Ap 24 Ap/1 Box) 1 ap BUCCAL Q6H PRN PRN Reason: Sore Throat Stop: 01/04/24 00:12 Last Admin: 12/05/23 23:00 Dose: 1 ap Metoprolol Succinate (Metoprolol Succ 25mg Ext Rel Tab) 25 mg [facility] [place] Stop: 01/04/24 08:59 Last Admin: 12/09/23 07:50 Dose: 25 mg Ondansetron HCl (Ondansetron Inj 2 Mg/Ml 2 Ml Vial) 4 mg IV Q4H PRN PRN Reason: Nausea And Vomiting Stop: 01/03/24 19:25 Phenol (Chloraseptic (Phenol) 1.4% Soln 180 Ml Btl) 1 sprays MT TID PRN PRN Reason: Sore Throat Stop: 01/05/24 01:10 Last Admin: 12/06/23 01:32 Dose: 1 sprays Quetiapine Fumarate (Quetiapine Fumarate 25 Mg Tablet) 12.5 mg PO HS [facility] Stop: 01/04/24 20:59 Last Admin: 12/08/23 20:15 Dose: 12.5 mg Rosuvastatin Calcium (Rosuvastatin Calcium 20 Mg Tab) 20 mg [facility] [place] Stop: 01/04/24 15:14 Last Admin: 12/09/23 07:51 Dose: 20 mg (3) Atrial fibrillation Atrial fibrillation type: longstanding persistent Qualified Code(s): I48.11 - Longstanding persistent atrial fibrillation
[2023-12-10] MEDS ORDERED: AZELASTINE HCL 0.1% NASAL 200 SPRAYS/27,400 MCG BTL SCH (01:10)
[2023-12-10] MEDS: AZELASTINE HCL 0.1% NASAL 200 SPRAYS/27,400 MCG BTL PRN (03:12)
[2023-12-10 08:07] LABS: Basophils # (auto) 0.03 K/uL (0.00-0.20); Basophils % (auto) 0.6 %; Eosinophils # (auto) 0.25 K/uL (0.00-0.50); Eosinophils % (auto) 5.1 %; Hematocrit (blood only) 44.5 % (42.0-52.0); Hemoglobin 15.2 g/dl (14.0-18.0); Immature Granulocytes # (auto) 0.02 K/uL (0.01-0.20); Immature Granulocytes % (auto) 0.4 %; Lymphocytes # (auto) 1.23 K/uL (1.20-3.40); Lymphocytes % (auto) 25.1 %; Mean Corpuscular Hemoglobin 35.2 pg (25.0-34.0); Mean Corpuscular Hgb Conc 34.2 g/dL (32.0-36.0); Mean Platelet Volume 9.9 fL (9.4-12.4); Monocytes # (auto) 0.65 K/uL (0.11-0.59); Monocytes % (auto) 13.2 %; Neutrophils # (auto) 2.73 K/uL (1.40-6.50); Neutrophils % (auto) 55.6 %; Platelet Count 176 K/uL (130-400); RDW Standard Deviation 53.7 fL (36.4-46.3); Red Blood Count 4.32 M/uL (4.70-6.10); White Blood Count 4.91 K/ul (4.8-10.8)
[2023-12-10 08:26] LABS: BUN Creatinine Ratio 17.7 (10-20); Calcium 8.8 mg/dl (8.6-10.3); Creatinine Clr Calc Pharmacy 63.2 ml/min; Est GFR (African American) 83.2 ml/min; Est GFR (Non-African American) 71.8 ml/min; Magnesium 2.3 mg/dl (1.7-2.4); Potassium 3.7 mmol/L (3.5-5.1)
[2023-12-10 08:28] LABS: Creatinine Clr Calc Pharmacy 61.3 ml/min; Est GFR (African American) 80.2 ml/min; Est GFR (Non-African American) 69.2 ml/min
[2023-12-10 10:12] LABS: Folate (Folic Acid),Ser orPlas 12.7 ng/ml (>5.38)
[2023-12-10] MEDS: ONDANSETRON INJ 2 MG/ML 2 ML VIAL IV PRN (10:14)
--- NOTE | 2023-12-10 11:40 | CT Scan Report ---
CT abd pelvis wo con CLINICAL HISTORY: eval for diverticular bleed vs other GIB, BRPR TECHNIQUE: Helical axial images of the abdomen and pelvis were obtained. Automated dose lowering tech niques and/or adjustment according to patient size were utilized for this exam. This exam was perfor med without intravenous contrast. CT DOSE: 1303.8 mGy.cm COMPARISON: Comparison is made to CT abdomen pelvis 12/04/2023 FINDINGS: Lower chest: Cardiomegaly is partially visualized. Liver: Unremarkable. No focal lesions are seen. Gallbladder and biliary tree: Patient is status post cholecystectomy. No intra- or extrahepatic bilia ry ductal dilation. Pancreas: Unremarkable, no focal lesions. Spleen: Splenule is incidentally noted. Adrenals: Unremarkable. Kidneys and ureters: Unremarkable. Bladder: Unremarkable. Reproductive organs: Unremarkable. Bowel: Diverticulosis is seen without evidence of diverticulitis. A small hiatal hernia is seen Lymph nodes Retroperitoneal: Unremarkable. Pelvic: Unremarkable. Mesenteric: Unremarkable. Peritoneum: Normal. Vessels: Unremarkable. Abdominal wall: Unremarkable. Bones: Unremarkable. IMPRESSION: 1. No acute abnormality and in particular no evidence of GI bleed in this noncontrast exam. 2. Diverticulosis without diverticulitis. 3. Additional findings as above. ACT 112: Negative or not required by law. Electronically signed by: Osvaldo Castellanos M.D. 12/10/2023 11:38 AM
[2023-12-10 14:43] LABS: Hematocrit (blood only) 43.6 % (42.0-52.0); Hemoglobin 14.9 g/dl (14.0-18.0)
--- NOTE | 2023-12-10 14:50 | Hospitalist Progress Note ---
Date of Service December 10, 2023 Assessment & Plan (1) AMS (altered mental status): (2) CHF (congestive heart failure): (3) Atrial fibrillation: (4) HTN (hypertension): (5) Presence of Watchman left atrial appendage closure device: (6) Mitral regurgitation: (7) Chronic hypoxic respiratory failure, on home oxygen therapy: (8) Rectal bleeding: Plan AMS Possible Metabolic/toxic encephalopathy Possible side effect from SSRI Patient presented with hallucination after he was started on sertraline - CT reviewed: unchanged small chronic left parietal lobe infarct. A chronic appearing right occipital lobe infarct is new from 07/13/2023. There is age- related involutional change noting moderate subcortical and periventricular microangiopathic disease. There is no hemorrhage, mass effect, or evidence of acute territorial ischemia by CT criteria. - Lives at home alone, in a trailor, O2 dependent - family is concerned that he can't go home - UA does not appear grossly infected, no other acute signs of infection, follow blood cultures Psychiatry consulted; started on Seroquel 12.5mg HS Frequent re-orientation Continue on aspirin, started on rosuvastatin for possible vascular dementia. continue. patient not under anticoagulation give hx of GI bleeding and has watchman procedure. Acute BRBPR Pt has had 3 BRBPR episodes today HOLD plavix and Lovenox for now, continue ASA last cscope in 2020 internal hem and sigmoid diverticulosis - this was done due to rectal bleeding on eliquis and was felt to be diverticular in nature vs hemorrhoids I suspect this is again related to int hemorrhoids vs diverticular I will d/c lovenox and hold plavix until bleeding resolves, pt currently on DAPT Hgb 15.2 this a.m. and 14.9 @ 1400, no significant drop --CT a/p showed diverticulosis, no acute abn Anusol HC MT bid x 7 days consult GI per Dr. Sb Loza on PPI daily Acute on Chronic diastolic heart failure Valvular heart disease Severe mitral regurgitation S/P surgery H/O tricuspid regurgitation Peripheral vascular disease -CXR on admission:Cardiomegaly with pulmonary vascular congestion. -ECHO Jun 2023: Mild concentric LVH. Left ventricle wall motion is normal. Left ventricle systolic function is normal. EF 55 to 60%. Left atrium is severely dilated. Evidence of percutaneous mitral valve clip. Mild mitral and tricuspid regurgitation. Pulmonary artery systolic pressure estimated to be 51 mmHg. 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 given not an oral anticoagulation candidate Eval for cognitive decline pt w/o formal dx of dementia daughter concerned about cognitive decline and wishes for formal eval I discussed with her that I will have ST eval for cognitive assessment and based on those results we can refer him back to neurology for neuropsych testing Chronic back pain H/O sacroiliitis H/O lumbar laminectomy for severe lumbar spinal stenosis -Last SI joint injection was 1 month ago per record -Patient declined lumbosacral MRI and additional injections -Cautious use of pain medications Depression -Sertraline discontinued; -Psychiatry consulted; started on seroquel Prediabetes - hemoglobin A1c of 5.6 last year BPH - chronic, stable Gout - chronic, stable Obesity -BMI 35 -outpatient follow up DVT PPx: Lovenox SQ D/C due to rectal bleeding, SCDS only CODE: DNR/DNI Dispo: PT OT eval completed; recommend home. As per case management, daughter arranging for additional caregiver/other arrangements. Daughter unable to secure caregivers and plan is to go to [facility] on Wednesday. Pt was seen and examined in collaboration with Dr. Basurto, please see addendum A total of 56 minutes was spent coordinating, documenting, and providing care for this patient excluding time spent in the performance of separately billed services. This included personally viewing all current laboratories and imaging studies, medication reconciliation, outpatient chart review, and discussion with specialists. Discussed with daughter Mira over the phone regarding today's current assessment and plan and she agrees with above. She is requesting cognitive evaluation. Admission and Anticipated Discharge Date Admission Date: December 04, 2023 Supervising Physician Co-Signing Physician Notes Pt was not seen and evaluated by myself. Subjective Pt was seen and examined in room 383-1. Follow up metabolic encephalopathy. He is sitting up along his bedside. Nurse is also at bedside. Prior to my visit he complains of 2 episodes of bright red blood per rectum. He states he noticed bright red blood in the toilet bowl and a significant amount. He denies ever having anything like this in the past. Nurse states that she did get his Plavix so far today. He denies any nausea, vomiting or grace abdominal pain. He feels his abdomen is, "tight." He also complains of a frontal headache and some dizziness upon standing. He denies fever, chills, sweats, chest pain, shortness breath. During further conversation he becomes very tearful. "I've been through a lot and it is just one thing after another." Review of Systems Review of Systems: All systems reviewed & are unremarkable except as noted in HPI & below Physical Exam Physical Exam: Gen: WD/WN, NAD, A&O x3, very tearful, anxious HEENT: Normocephalic, atraumatic, conjunctivae moist, sclerae anicteric, mucous membranes moist. Lung: Clear to Auscultation bilaterally, no wheezes/rales/rhonchi Heart: Regular rate, regular rhythm, no murmurs, rubs, or gallops Abdomen: obese abd, Soft, NT, ND +BS x 4 Extremities: No edema, L partial hand amputation Skin: Warm, no rash, negative turgor. Rectal: no external bleeding hemorrhoids, bright red blood noted on external rectal area Results & Data Results & Data Vital Signs (Past 12 Hours) Vital Signs Temp Pulse Resp BP BP Pulse Ox O2 Del Method 12/10/23 14:30 36.6 C 74 16 108/72 94 Room Air 12/10/23 07:22 36.8 C 67 16 120/69 92 Room Air 12/10/23 06:27 36.7 C 74 20 130/84 92 Room Air Laboratory Results Short CBC 12/10/23 12/10/23 Range/Units 07:27 14:16 WBC 4.91 (4.8-10.8) K/ul Hgb 15.2 14.9 (14.0-18.0) g/dl Hct 44.5 43.6 (42.0-52.0) % Plt Count 176 (130-400) K/uL BMP 12/10/23 12/10/23 07:27 07:27 Sodium 142 Potassium 3.7 Chloride 106 Carbon Dioxide 31 BUN 17 Creatinine 0.99 0.96 Glucose 107 H Calcium 8.8 I have independently reviewed and interpreted patient's a.m. labs including CBC, BMP Diagnostic Findings Abdomen/Pelvis CT 12/10/23 10:20 CT abd pelvis wo con CLINICAL HISTORY: eval for diverticular bleed vs other GIB, BRPR TECHNIQUE: Helical axial images of the abdomen and pelvis were obtained. Automated dose lowering techniques and/or adjustment according to patient size were utilized for this exam. This exam was performed without intravenous contrast. CT DOSE: 1303.8 mGy.cm COMPARISON: Comparison is made to CT abdomen pelvis 12/04/2023 FINDINGS: Lower chest: Cardiomegaly is partially visualized. Liver: Unremarkable. No focal lesions are seen. Gallbladder and biliary tree: Patient is status post cholecystectomy. No intra- or extrahepatic biliary ductal dilation. Pancreas: Unremarkable, no focal lesions. Spleen: Splenule is incidentally noted. Adrenals: Unremarkable. Kidneys and ureters: Unremarkable. Bladder: Unremarkable. Reproductive organs: Unremarkable. Bowel: Diverticulosis is seen without evidence of diverticulitis. A small hiatal hernia is seen Lymph nodes Retroperitoneal: Unremarkable. Pelvic: Unremarkable. Mesenteric: Unremarkable. Peritoneum: Normal. Vessels: Unremarkable. Abdominal wall: Unremarkable. Bones: Unremarkable. IMPRESSION: 1. No acute abnormality and in particular no evidence of GI bleed in this noncontrast exam. 2. Diverticulosis without diverticulitis. 3. Additional findings as above. ACT 112: Negative or not required by law. Electronically signed by: Osvaldo Castellanos M.D. 12/10/2023 11:38 AM Medications Administered Current Inpatient Medications Acetaminophen (Acetaminophen 500 Mg Tab) 1,000 mg PO BID [facility] Stop: 01/03/24 19:59 Last Admin: 12/10/23 09:31 Dose: 1,000 mg Acetaminophen (Acetaminophen 325 Mg Tab) 650 mg PO Q4H PRN PRN Reason: Moderate Pain (Scale 4, 5, 6) Stop: 01/03/24 19:25 Last Admin: 12/10/23 03:12 Dose: 650 mg Allopurinol (Allopurinol 300 Mg Tab) 300 mg PO QAM [facility] Stop: 01/04/24 08:59 Last Admin: 12/10/23 09:32 Dose: 300 mg Aspirin (Aspirin 81 Mg Ectab) 81 mg PO QAM [facility] Stop: 01/04/24 08:59 Last Admin: 12/10/23 09:44 Dose: 81 mg Azelastine HCl (Azelastine Hcl 0.1% Nasal 200 Sprays/27,400 Mcg Btl) 1 sprays NA BID PRN PRN Reason: Allergic Symptoms Stop: 01/09/24 01:09 Last Admin: 12/10/23 03:12 Dose: 1 sprays Clopidogrel Bisulfate (Clopidogrel Bisulfate 75 Mg Tab) 75 mg PO DAILY [facility] Stop: 01/04/24 08:59 Last Admin: 12/10/23 09:32 Dose: 75 mg Docusate Sodium (Docusate Sodium 100 Mg Cap) 100 mg PO BID [facility] Stop: 01/03/24 20:59 Last Admin: 12/10/23 09:32 Dose: 100 mg Enoxaparin Sodium (Enoxaparin Inj 40 Mg/0.4 Ml Syr) 40 mg SQ [facility] Stop: 01/04/24 08:59 Last Admin: 12/10/23 09:43 Dose: Not Given Finasteride (Finasteride 5 Mg Tab) 5 mg PO [facility] Stop: 01/04/24 08:59 Last Admin: 12/10/23 09:32 Dose: 5 mg Fluticasone Propionate (Fluticasone Propionate Na Spr 16 Gm Btl) 2 sprays NA BID [facility] Stop: 01/05/24 09:44 Last Admin: 12/10/23 09:34 Dose: 2 sprays Furosemide ([facility]semide 40 Mg Tab) [facility] Stop: 01/07/24 08:59 Last Admin: 12/10/23 09:35 Dose: 40 mg Gabapentin (Gabapentin 300 Mg Cap) 300 mg PO TID [facility] Stop: 01/03/24 20:59 Last Admin: 12/10/23 13:42 Dose: 300 mg Loratadine (Loratadine 10 Mg Tab) 10 mg PO QAM [facility] Stop: 01/04/24 18:29 Last Admin: 12/10/23 09:33 Dose: 10 mg Magnesium Hydroxide (Magnesium Hydroxide Susp 30 Ml Udc) 30 ml PO BID [facility] Stop: 01/05/24 09:44 Last Admin: 12/10/23 09:35 Dose: Not Given Menthol (Cough Drop (Sugar Free) Ap 24 Ap/1 Box) 1 ap BUCCAL Q6H PRN PRN Reason: Sore Throat Stop: 01/04/24 00:12 Last Admin: 12/05/23 23:00 Dose: 1 ap Metoprolol Succinate (Metoprolol Succ 25mg Ext Rel Tab) 25 mg PO [facility] Stop: 01/04/24 08:59 Last Admin: 12/10/23 09:33 Dose: 25 mg Ondansetron HCl (Ondansetron Inj 2 Mg/Ml 2 Ml Vial) 4 mg IV Q4H PRN PRN Reason: Nausea And Vomiting Stop: 01/03/24 19:25 Last Admin: 12/10/23 10:14 Dose: 4 mg Phenol (Chloraseptic (Phenol) 1.4% Soln 180 Ml Btl) 1 sprays MT TID PRN PRN Reason: Sore Throat Stop: 01/05/24 01:10 Last Admin: 12/06/23 01:32 Dose: 1 sprays Quetiapine Fumarate (Quetiapine Fumarate 25 Mg Tablet) 12.5 mg PO [facility] Stop: 01/04/24 20:59 Last Admin: 12/09/23 20:41 Dose: 12.5 mg Rosuvastatin Calcium (Rosuvastatin Calcium 20 Mg Tab) 20 mg PO [facility] Stop: 01/04/24 15:14 Last Admin: 12/10/23 09:33 Dose: 20 mg (3) Atrial fibrillation Atrial fibrillation type: longstanding persistent Qualified Code(s): I48.11 - Longstanding persistent atrial fibrillation
--- NOTE | 2023-12-10 15:09 | Gastrointestinal Consultation ---
Date of Consultation December 10, 2023 Assessment & Plan (1) Rectal bleedin year male with history of chronic diastolic heart failure (EF 55%, TTE 2022), valvular heart disease (severe MR status post MitraClip surgery, hx TR), A-fib status post Watchman device, PVD, DEX/CSA BiPAP intolerant, hypertension, prediabetes, GERD, BPH, MCTD as per records, hx vertigo, sacroiliitis, anxiety/mood disorder admitted through the ED w/ AMS - GI was asked to evaluate for rectal bleeding. Colonoscopy in 2020 for evaluation of rectal bleeding noting diverticulosis and internal hemorrhiods. He had two isolated episodes of BRBPR, has remained hemodynamically stable throughout day with stable HGB at 14.9 without BUN elevation. Suspected rectal bleeding is related to hemorrhoids or diverticular disease. As he has remained clinically stable, would continue observation for now. If there is evidence of active, ongoing GI bleeding, consideration for endoscopic evaluation would be made at that time. Hold ASA/Plavix and Lovenox if able and observe response. Trend H&H. Monitor and document GI output. Transfuse PRN per primary team. PO PPI. Agree w/ treatment of hemorrhoids with Anusol. Offered general surgery evaluation but he has deferred this at this point in time. If bleeding returns, persists associated with drop in HGB, please contact the covering GI service for consideration of endoscopic evaluation early next week/weekend if needed. Thank you for allowing us to participate in the care of this patient. Please call with any acute changes, questions or concerns. Please see addendum below with additional recommendation from my supervising physician. I spent a total of 60 minutes on the date of service in review of patient's record, and previously obtained information in person and appropriate medical visit, discussion and education of plan, with patient and/or caregiver, placing orders for te sts/referral/procedures as medically necessary and documentation of pertinent clinical information in patient's medical records for their visit today. Supervising Physician Co-Signing Physician Notes I examined the patient and reviewed patient's chart , laboratory data and imaging studies. I agree with with assessment and plan of care as suggested by advanced practice provider. Minor rectal bleeding. Hemodynamically stable. No major change in hemoglobin. He is on Lovenox and Plavix. Recent colonoscopy in 2020 showed diverticula. If possible discontinue Plavix. Defer colonoscopy. Reevaluate for major or ongoing bleeding History of Present Illness Reason for Consultation: rectal bleeding Requesting Physician: Sb Attending Physician: Juan Basurto MD History of Present Illness 83 year male with history of chronic diastolic heart failure (EF 55%, TTE 2022), valvular heart disease (severe MR status post MitraClip surgery, hx TR), A-fib status post Watchman device, PVD, DEX/CSA BiPAP intolerant, hypertension, prediabetes, GERD, BPH, MCTD as per records, hx vertigo, sacroiliitis, an xiety/mood disorder admitted through the ED w/ AMS - GI was asked to evaluate for rectal bleeding. Pt was seen and evaluated, chart reviewed. Notes he woke up this morning with some abd cramping, need to move his bowels. This was a formed brown stool, followed by some BRB in the toilet bowl. No clots. Suggests a few hours later he had urge to pass stool again and he had a looser brown stool mixed with BRB in the toilet bowl. No further episodes since early AM. No nausea, vomiting. Tolerating PO intake. He notes he has had intermittent dizziness but suggests this outdates the episodes of rectal bleeding. HGB 14.9 BUN 17 Anticoagulated on ASA, Plavix CTAP 2023:No acute abnormality and in particular no evidence of GI bleed in this noncontrast exam. Diverticulosis without diverticulitis.Additional findings as above. Colonoscopy 2020: - Preparation of the colon was fair. - The examined colon appeared normal. - Sigmoid diverticulosis. - Internal hemorrhoids. - Suspect bleeding is from diverticula +/- hemorrhoids. Allergies Allergy/AdvReac Type Severity Reaction Status Date / Time adhesive Allergy Mild BLISTER Verified 06/09/21 18:11 SKIN levofloxacin [From Levaquin] Allergy Unknown CAN'T Verified 06/09/21 18:11 REMEMBER sertraline AdvReac Severe hallucinati Verified 12/09/23 16:22 ons duloxetine [From Cymbalta] AdvReac Intermediate confusion Verified 07/13/23 06:49 Home Medications Medication Instructions Recorded Confirmed Type finasteride 5 mg tablet 5 mg PO QAM 06/09/21 12/04/23 History gabapentin 300 mg capsule 300 mg PO TID 06/09/21 12/04/23 History acetaminophen 500 mg tablet 1,000 mg PO AMPM 07/13/23 12/04/23 History allopurinol 300 mg tablet 300 mg PO QAM 07/13/23 12/04/23 History aspirin 81 mg chewable tablet 81 mg PO QAM 07/13/23 12/04/23 History docusate sodium 100 mg capsule 100 mg PO BID 07/13/23 12/04/23 History meclizine 12.5 mg tablet 12.5 mg PO BID PRN Dizziness 07/13/23 12/04/23 History tramadol 50 mg tablet 50 mg PO Q6 PRN pain,severe 07/13/23 12/04/23 History metoprolol succinate 25 mg 25 mg PO QAM #30 tabs 07/15/23 12/04/23 Rx tablet,extended release 24 hr clopidogrel 75 mg tablet 75 mg PO DAILY 08/26/23 12/04/23 History furosemide 20 mg tablet (Lasix) 40 mg PO DAILY 12/04/23 12/04/23 History ketoconazole 2 % topical cream 1 applic topical UD 12/04/23 12/04/23 History sertraline 25 mg tablet 25 mg PO DAILY 12/04/23 12/04/23 History Patient History Medical History Mitral regurgitation Presence of Watchman left atrial appendage closure device Occipital stroke Osteoarthritis History of kidney stones Rectal bleeding reason for scheduled colonoscopy Surgical History S/P TURP H/O cystoscopy H/O mitral valve repair Amputation of left hand History of lumbar discectomy History of appendectomy History of tooth extraction all top teeth removed History of tonsillectomy and adenoidectomy History of bilateral cataract extraction 2020 Family History Other No family history of adverse response to anesthesia No pertinent family history Social History Smoking Status: Never smoker Tobacco Type: Cigarettes Second Hand Exposure: No; Do You Dip or Chew Tobacco: No; Hx Alcohol Use: No Hx Substance Use: No Preferred Language: German Communication Ability: Effective Remote Ruby On Rails Developer Required: No Beliefs That Will Affect Care: None Current Living Situation: Alone Current Living Situation Comment: Has dementia Feels Safe at Home: Yes Assistive Devices: Cane, Oxygen - Continuous and Walker Review of Systems Review of Systems: All other findings negative except as noted in HPI. Physical Exam Constitutional: WD/WN, vitals as above Respiratory: normal respiratory effort, lungs clear to auscultation Cardiovascular: Rate/Rhythm: regular rate and regular rhythm Gastrointestinal (Abdomen): normal bowel sounds, soft, nontender, no hepatosplenomegaly Skin: no rashes, warm and dry Results & Data Vital Signs (Past 12 Hours) Vital Signs Temp Pulse Resp BP BP Pulse Ox O2 Del Method 12/10/23 14:30 36.6 C 74 16 108/72 94 Room Air 12/10/23 08:00 Room Air 12/10/23 07:22 36.8 C 67 16 120/69 92 Room Air 12/10/23 06:27 36.7 C 74 20 130/84 92 Room Air Laboratory Results 12/10/23 12/10/23 12/10/23 Range/Units 14:16 07:27 07:27 WBC (4.8-10.8) K/ul RBC (4.70-6.10) M/uL Hgb 14.9 (14.0-18.0) g/dl Hct 43.6 (42.0-52.0) % MCV (80.0-100.0) fL MCH (25.0-34.0) pg MCHC (32.0-36.0) g/dL RDW Std Deviation (36.4-46.3) fL RDW Coeff of Neal (11.5-14.5) % Plt Count (130-400) K/uL MPV (9.4-12.4) fL Immature Gran % (Auto) % Neut % (Auto) % Lymph % (Auto) % [place] % (Auto) % Eos % (Auto) % Baso % (Auto) % Neut # (Auto) (1.40-6.50) K/uL Lymph # (Auto) (1.20-3.40) K/uL [place] # (Auto) (0.11-0.59) K/uL Eos # (Auto) (0.00-0.50) K/uL Baso # (Auto) (0.00-0.20) K/uL Immature Gran # (Auto) (0.01-0.20) K/uL Sodium (136-145) mmol/L Potassium (3.5-5.1) mmol/L Chloride (98-107) mmol/L Carbon Dioxide (21-32) mmol/L Anion Gap (3-11) BUN (6-23) mg/dl Creatinine (0.6-1.4) mg/dl Est Cr Clr Drug Dosing ml/min Est GFR ( Amer) 83.2 ml/min Est GFR (Non-Af Amer) 71.8 69.2 ml/min BUN/Creatinine Ratio 17.7 (10-20) Glucose 107 H (70-99(Fasting)) mg/dl Calcium 8.8 (8.6-10.3) mg/dl Phosphorus 3.0 (2.5-4.9) mg/dl Magnesium 2.3 (1.7-2.4) mg/dl Vitamin B12 430 (180-914) pg/ml Folate 12.70 (>5.38) ng/ml 12/10/23 12/10/23 12/10/23 Range/Units 07:27 07:27 07:27 WBC 4.91 (4.8-10.8) K/ul RBC 4.32 L (4.70-6.10) M/uL Hgb 15.2 (14.0-18.0) g/dl Hct 44.5 (42.0-52.0) % MCV 103.0 H (80.0-100.0) fL MCH 35.2 H (25.0-34.0) pg MCHC 34.2 (32.0-36.0) g/dL RDW Std Deviation 53.7 H (36.4-46.3) fL RDW Coeff of Neal 14.0 (11.5-14.5) % Plt Count 176 (130-400) K/uL MPV 9.9 (9.4-12.4) fL Immature Gran % (Auto) 0.4 % Neut % (Auto) 55.6 % Lymph % (Auto) 25.1 % [place] % (Auto) 13.2 % Eos % (Auto) 5.1 % Baso % (Auto) 0.6 % Neut # (Auto) 2.73 (1.40-6.50) K/uL Lymph # (Auto) 1.23 (1.20-3.40) K/uL [place] # (Auto) 0.65 H (0.11-0.59) K/uL Eos # (Auto) 0.25 (0.00-0.50) K/uL Baso # (Auto) 0.03 (0.00-0.20) K/uL Immature Gran # (Auto) 0.02 (0.01-0.20) K/uL Sodium 142 (136-145) mmol/L Potassium 3.7 (3.5-5.1) mmol/L Chloride 106 (98-107) mmol/L Carbon Dioxide 31 (21-32) mmol/L Anion Gap 5 (3-11) BUN 17 (6-23) mg/dl Creatinine 0.96 0.99 (0.6-1.4) mg/dl Est Cr Clr Drug Dosing 63.2 61.3 ml/min Est GFR ( Amer) 80.2 ml/min Est GFR (Non-Af Amer) ml/min BUN/Creatinine Ratio (10-20) Glucose (70-99(Fasting)) mg/dl Calcium (8.6-10.3) mg/dl Phosphorus (2.5-4.9) mg/dl Magnesium (1.7-2.4) mg/dl Vitamin B12 (180-914) pg/ml Folate (>5.38) ng/ml PG Care Time/CCT Total # of Minutes Spent Total Time Spent with Patient: Total time spent is greater than 50% in coordination of care (as documented) at patient's floor/unit and/or counseling patient: Coding Level of Care Code 38360 INT INP/OBS CARE 2/55MIN Diagnoses Rectal bleeding K62.5
[2023-12-10] MEDS: PANTOprazole 40 MG TAB PO SCH (16:05)
[2023-12-10] MEDS: HYDROCORTISONE ACETATE 25 MG SUPP PR SCH (20:39)
[2023-12-11 07:09] LABS: Hematocrit (blood only) 43.9 % (42.0-52.0); Hemoglobin 15.1 g/dl (14.0-18.0); Mean Corpuscular Hemoglobin 35.6 pg (25.0-34.0); Mean Corpuscular Hgb Conc 34.4 g/dL (32.0-36.0); Mean Corpuscular Volume 103.5 fL (80.0-100.0); Platelet Count 173 K/uL (130-400); RDW Coefficient of Variation 13.9 % (11.5-14.5); RDW Standard Deviation 53.1 fL (36.4-46.3); Red Blood Count 4.24 M/uL (4.70-6.10); White Blood Count 5.66 K/ul (4.8-10.8)
[2023-12-11 07:55] LABS: BUN Creatinine Ratio 17.2 (10-20); Calcium 8.7 mg/dl (8.6-10.3); Creatinine Clr Calc Pharmacy 61.3 ml/min; Est GFR (African American) 80.2 ml/min; Est GFR (Non-African American) 69.2 ml/min; Potassium 3.8 mmol/L (3.5-5.1)
--- NOTE | 2023-12-11 15:28 | Hospitalist Progress Note ---
Date of Service December 11, 2023 Assessment & Plan (1) AMS (altered mental status): (2) CHF (congestive heart failure): (3) Atrial fibrillation: (4) HTN (hypertension): (5) Presence of Watchman left atrial appendage closure device: (6) Mitral regurgitation: (7) Chronic hypoxic respiratory failure, on home oxygen therapy: (8) Rectal bleeding: Plan Possible Metabolic/toxic encephalopathy: Possible side effect from SSRI Patient presented with hallucination after he was started on sertraline. Admitting CT head with no acute finding. UA negative for infection, blood culture negative growth for 5 days. Patient lives alone at home, in trailer, O2 dependentfamily is concerned that he cannot take care of himself alone at home. Psychiatry consulted; started on Seroquel 12.5mg HS Frequent re-orientation, Mentation has improved. Continue on aspirin, started on rosuvastatin for possible vascular dementia. continue. patient not under anticoagulation give hx of GI bleeding and has watchman procedure. Acute BRBPR: 3 episodes on 12/10/2023. GI evaluated, recommended holding aspirin and Plavix and Lovenox. They are on hold, patient with no further BRBPR today. If with further bleeding, reach out to GI service again for possible endoscopic evaluation. Last c-scope in 2020 internal hem and sigmoid diverticulosis - this was done due to rectal bleeding on eliquis and was felt to be diverticular in nature vs hemorrhoids Etiology:int hemorrhoids vs diverticular CTAP 12/09 with diverticulosis, no acute abnormality. Continue Anusol HC pr. twice daily 12/09, PPI daily. Acute on Chronic diastolic heart failure Valvular heart disease Severe mitral regurgitation S/P surgery H/O tricuspid regurgitation Peripheral vascular disease -CXR on admission:Cardiomegaly with pulmonary vascular congestion. -ECHO Jun 2023: Mild concentric LVH. Left ventricle wall motion is normal. Left ventricle systolic function is normal. EF 55 to 60%. Left atrium is severely dilated. Evidence of percutaneous mitral valve clip. Mild mitral and tricuspid regurgitation. Pulmonary artery systolic pressure estimated to be 51 mmHg. 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 Speech for cognitive assessment. Formal neuropsychiatric testing as an outpatient. Chronic back pain H/O sacroiliitis H/O lumbar laminectomy for severe lumbar spinal stenosis -Last SI joint injection was 1 month ago per record -Patient declined lumbosacral MRI and additional injections -Cautious use of pain medications Depression: Sertraline discontinued. Psychiatric evaluated, started on Seroquel. Continue. Prediabetes: hemoglobin A1c of 5.6 last year BPH: chronic, stable Gout: chronic, stable Obesity: BMI 35. outpatient follow up DVT PPx: Lovenox SQ D/C due to rectal bleeding, SCDS only CODE: DNR/DNI Dispo: PT OT eval completed; recommend home. As per case management, daughter arranging for additional caregiver/other arrangements. Daughter unable to secure caregivers and plan is to go to [facility] on Wednesday. Admission and Anticipated Discharge Date Admission Date: December 04, 2023 Subjective Pt was seen and examined in room 383-1. Follow up metabolic encephalopathy. Patient was lying in bed, on room air, comfortable, not in any acute distress. Patient reports no further blood per rectum. He reports improvement. He denies any abdominal pain. He offers no other Complaints. He denies fever/chills/sweats/chest pain/shortness of breath. Physical Exam Physical Exam: Constitutional: AOx3; not in any distress Respiratory:clear breath sounds Cardiovascular: RRR, no murmur, no edema Vessels: no JVD or carotid bruit Chest: normal inspection of chest Abdomen: normal bowel sounds, soft, nontender, no hepatosplenomegaly Musculoskeletal: no cyanosis or clubbing, extremities motor strength 5/5 Skin: no rashes, warm and dry normal turgor Neurologic: PERRL, EOMI, accommodation nl, no face palsy, no dysarthria CN's II- XI intact bilaterally and moves all extremities Results & Data Results & Data Vital Signs (Past 12 Hours) Vital Signs Temp Pulse Resp BP Pulse Ox O2 Del Method 12/11/23 15:10 36.5 C 72 16 122/79 91 Room Air 12/11/23 07:25 36.3 C L 76 16 123/80 91 Room Air (3) Atrial fibrillation Atrial fibrillation type: longstanding persistent Qualified Code(s): I48.11 - Longstanding persistent atrial fibrillation
[2023-12-12 06:30] LABS: Hematocrit (blood only) 45.2 % (42.0-52.0); Hemoglobin 15.4 g/dl (14.0-18.0); Mean Corpuscular Hemoglobin 35.2 pg (25.0-34.0); Mean Corpuscular Hgb Conc 34.1 g/dL (32.0-36.0); Mean Corpuscular Volume 103.4 fL (80.0-100.0); Mean Platelet Volume 9.9 fL (9.4-12.4); Platelet Count 182 K/uL (130-400); RDW Coefficient of Variation 13.8 % (11.5-14.5); RDW Standard Deviation 52.9 fL (36.4-46.3); Red Blood Count 4.37 M/uL (4.70-6.10); White Blood Count 6.28 K/ul (4.8-10.8)
[2023-12-12 06:50] LABS: Calcium 8.9 mg/dl (8.6-10.3); Creatinine Clr Calc Pharmacy 64.6 ml/min; Est GFR (African American) 85.3 ml/min; Est GFR (Non-African American) 73.6 ml/min; Magnesium 2.3 mg/dl (1.7-2.4); Phosphorus 3.6 mg/dl (2.5-4.9); Potassium 3.9 mmol/L (3.5-5.1)
--- NOTE | 2023-12-12 13:50 | Hospitalist Progress Note ---
Date of Service December 12, 2023 Assessment & Plan (1) AMS (altered mental status): (2) CHF (congestive heart failure): (3) Atrial fibrillation: (4) HTN (hypertension): (5) Presence of Watchman left atrial appendage closure device: (6) Mitral regurgitation: (7) Chronic hypoxic respiratory failure, on home oxygen therapy: (8) Rectal bleeding: Plan Possible Metabolic/toxic encephalopathy: Possible side effect from SSRI Patient presented with hallucination after he was started on sertraline. Admitting CT head with no acute finding. UA negative for infection, blood culture negative growth for 5 days. Patient lives alone at home, in trailer, O2 dependentfamily is concerned that he cannot take care of himself alone at home. Psychiatry consulted; started on Seroquel 12.5mg HS Frequent re-orientation, Mentation has improved. Continue on aspirin, started on rosuvastatin for possible vascular dementia. continue. patient not under anticoagulation give hx of GI bleeding and has watchman procedure. Acute BRBPR: 3 episodes on 12/10/2023. GI evaluated, recommended holding aspirin and Plavix and Lovenox. They are on hold, patient with no further BRBPR today. If with further bleeding, reach out to GI service again for possible endoscopic evaluation. Last c-scope in 2020 internal hem and sigmoid diverticulosis - this was done due to rectal bleeding on eliquis and was felt to be diverticular in nature vs hemorrhoids Etiology:int hemorrhoids vs diverticular CTAP 12/09 with diverticulosis, no acute abnormality. Continue Anusol HC pr. twice daily 12/09, PPI daily. DAPT needs resumed gradually in next few days. Acute on Chronic diastolic heart failure Valvular heart disease Severe mitral regurgitation S/P surgery H/O tricuspid regurgitation Peripheral vascular disease -CXR on admission:Cardiomegaly with pulmonary vascular congestion. -ECHO Jun 2023: Mild concentric LVH. Left ventricle wall motion is normal. Left ventricle systolic function is normal. EF 55 to 60%. Left atrium is severely dilated. Evidence of percutaneous mitral valve clip. Mild mitral and tricuspid regurgitation. Pulmonary artery systolic pressure estimated to be 51 mmHg. 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 Speech for cognitive assessment. Formal neuropsychiatric testing as an outpatient. Chronic back pain H/O sacroiliitis H/O lumbar laminectomy for severe lumbar spinal stenosis -Last SI joint injection was 1 month ago per record -Patient declined lumbosacral MRI and additional injections -Cautious use of pain medications Depression: Sertraline discontinued. Psychiatric evaluated, started on Seroquel. Continue. Prediabetes: hemoglobin A1c of 5.6 last year BPH: chronic, stable Gout: chronic, stable Obesity: BMI 35. outpatient follow up DVT PPx: Lovenox SQ D/C due to rectal bleeding, SCDS only CODE: DNR/DNI Dispo: PT OT eval completed; recommend home. As per case management, daughter arranging for additional caregiver/other arrangements. Daughter unable to secure caregivers and plan is to go to [facility] on Wednesday. Admission and Anticipated Discharge Date Admission Date: December 04, 2023 Subjective Pt was seen and examined in room 383-1. Follow up metabolic encephalopathy. Patient was lying in bed, on room air, comfortable, not in any acute distress. Patient reports no further bloody BM. He reports improvement. He denies any abdominal pain. He offers no other Complaints. He denies fever/chills/sweats/chest pain/shortness of breath. Physical Exam Physical Exam: Constitutional: AOx3; not in any distress Respiratory:clear breath sounds Cardiovascular: RRR, no murmur, no edema Vessels: no JVD or carotid bruit Chest: normal inspection of chest Abdomen: normal bowel sounds, soft, nontender, no hepatosplenomegaly Musculoskeletal: no cyanosis or clubbing, extremities motor strength 5/5 Skin: no rashes, warm and dry normal turgor Neurologic: PERRL, EOMI, accommodation nl, no face palsy, no dysarthria CN's II- XI intact bilaterally and moves all extremities Results & Data Results & Data Vital Signs (Past 12 Hours) Vital Signs Temp Pulse Resp BP Pulse Ox O2 Del Method 12/12/23 08:22 Room Air 12/12/23 07:33 36.5 C 84 16 125/77 92 Room Air (3) Atrial fibrillation Atrial fibrillation type: longstanding persistent Qualified Code(s): I48.11 - Longstanding persistent atrial fibrillation
[2023-12-13 07:34] LABS: Hematocrit (blood only) 45.1 % (42.0-52.0); Hemoglobin 15.6 g/dl (14.0-18.0); Mean Corpuscular Hemoglobin 35.5 pg (25.0-34.0); Mean Corpuscular Hgb Conc 34.6 g/dL (32.0-36.0); Mean Corpuscular Volume 102.7 fL (80.0-100.0); Mean Platelet Volume 10.1 fL (9.4-12.4); Platelet Count 178 K/uL (130-400); RDW Coefficient of Variation 13.8 % (11.5-14.5); RDW Standard Deviation 53.4 fL (36.4-46.3); Red Blood Count 4.39 M/uL (4.70-6.10); White Blood Count 6.73 K/ul (4.8-10.8)
--- NOTE | 2023-12-13 09:29 | Hospitalist Progress Note ---
Date of Service December 13, 2023 Assessment & Plan (1) AMS (altered mental status): (2) CHF (congestive heart failure): (3) Atrial fibrillation: (4) HTN (hypertension): (5) Presence of Watchman left atrial appendage closure device: (6) Mitral regurgitation: (7) Chronic hypoxic respiratory failure, on home oxygen therapy: (8) Rectal bleeding: Plan Nikolas Silvestre is an 83 y/o M with PMHx of chronic diastolic heart failure [EF 55%; TTE 2022], valvular heart disease [severe MR s/p MitraClip surgery; hx TR], A-fib s/p Watchman device, PVD, DEX/CSA BiPAP intolerance, hypertension, prediabetes, GERD, BPH, MCTD as per records, hx of vertigo, sacroiliitis, anxiety/mood disorder and other problems listed below who presented to the hospital with worsening altered mental status. Per previous hospitalist progress note with additional updates/addendum: Possible Metabolic/Toxic Encephalopathy: ? Possible side effect from SSRI (sertraline). -Patient presented to ED with hallucinations after he was started on sertraline. -Admitting CT head with no acute finding. UA negative for infection, blood culture negative growth after 5 days. Pt lives alone at home (in trailer), O2 dependent --> Family is concerned that he cannot take care of himself alone at home. Psychiatry consulted; pt was started on Seroquel 12.5mg HS - pt reports he is doing well on this medication so far. Frequent re-orientation, mentation has improved significantly. Pt was started on rosuvastatin for possible vascular dementia - will continue. Pt not under anticoagulation give significant hx of GI bleeding and Watchman procedure. Acute BRBPR: Pt had 3 episodes on 12/10/2023. GI evaluated him; recommended holding aspirin, Plavix and SQ Lovenox. Those medications are currently on hold, patient with no further BRBPR since 12/09. If pt with further bleeding at any point, plan to reach out to GI service again for possible endoscopic evaluation. Last c-scope in 2020 showed internal hem and sigmoid diverticulosis --> This was done 2/2 rectal bleeding on Eliquis and was felt to be diverticular in nature vs. hemorrhoids. Etiology: ? int hemorrhoids vs. diverticular CTAP 12/09 with diverticulosis, no acute abnormality. Continue Anusol HC NV twice daily 12/09, PPI daily. Pt c/o blood streaks on toilet paper when wiping today; denies blood in stool - Hgb holding steady ~15. Will continue to hold DAPT for now - will need to reassess restarting regimen in the outpatient setting following discharge. Acute on Chronic Diastolic Heart Failure Valvular Heart Disease Severe Mitral Regurgitation S/P Surgery H/O Tricuspid Regurgitation Peripheral Vascular Disease CXR on admission: Cardiomegaly with pulmonary vascular congestion. ECHO Jun 2023: Mild concentric LVH. Left ventricle wall motion is normal. Left ventricle systolic function is normal. EF 55 to 60%. Left atrium is severely dilated. Evidence of percutaneous mitral valve clip. Mild mitral and tricuspid regurgitation. Pulmonary artery systolic pressure estimated to be 51 mmHg. Monitor volume status, I/Os, and daily weights. Weight has remained stable ~99-100kg. Continue metoprolol, euvolemic on examination. Pt s/p IV Lasix, c/w oral Lasix 40 mg once a day. Persistent Atrial Fibrillation S/P Watchman Procedure: Continue metoprolol, monitor and adjust medications PRN. Chronic Hypoxic Respiratory Failure 2/2 DEX Intolerant to BiPAP, CHF, Afib: Continue supplemental oxygen at HS; currently 94% SpO2 on RA, denies any SOB and has been ambulating w/o issue. Hx of R Occipital CVA On ASA, Plavix and statin as outpatient --> Will continue holding DAPT for now 2/2 blood streaking on toilet paper when wiping Hx of failing just ASA therapy in setting of stroke, hence emt intermediate DAPT candidate given not an oral anticoagulation candidate. Will ultimately need to reassess restarting DAPT regimen in the outpatient setting following discharge. Evaluation for Cognitive Decline Pt w/o formal dx of dementia --> Pt's daughter concerned about cognitive decline and wishes for formal evaluation. Speech therapy saw pt and conducted cognitive assessment. Formal christiano ropsychiatric testing as an outpatient. Chronic Back Pain H/O Sacroiliitis H/O Lumbar Laminectomy 2/2 Severe Lumbar Spinal Stenosis Last SI joint injection was ~1 month ago per chart review. Pt previously declined lumbosacral MRI and additional injections. Cautious use of pain medications given presenting hallucinations, risk of conf usion. Depression: Sertraline discontinued 2/2 presenting hallucinations. Psychiatry evaluated, pt started on Seroquel - will continue. Prediabetes: Hemoglobin A1c of 5.6 last year, no need to readdress at this time. 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 Obesity: BMI 35 on admission, recommend outpatient follow-up w/ PCP to address this concern. DVT Prophylaxis: SQ Lovenox discontinued 2/2 rectal bleeding, SCDs only for now. Code Status: DNR/DNI - Per previous provider documentation. PCP: Benny Waite DO Dispo: As per discussion with CM via [facility] [employer] today, plan is to have the patient discharged to [facility] tomorrow prior to 10AM so that his daughter can transport him to the facility. Patient seen in collaboration with Dr. Basurto. Please see addendum. I spent a total of 50 minutes coordinating, documenting, and providing care for this patient excluding time spent in the performance of separately billed services. This included personally reviewing all current laboratories and imaging studies, medical reconciliation, outpatient chart review and discussion with specialists. This chart was completed in part utilizing Speech Voice Recognition Software. Grammatical errors, random word insertions, pronoun errors, and incomplete sentences are an occasional consequence of this system due to software limitations, ambient noise, and hardware issues. Any formal questions or concerns about the content, text, or information contained within the body of this dictation should be directly addressed to the provider for clarification. Admission and Anticipated Discharge Date Admission Date: December 04, 2023 Supervising Physician Co-Signing Physician Notes pt was not seen and examined by myself. Subjective Patient seen and examined at bedside in room N383-1. Patient is upset with having to go to [facility]. Would like to go home as soon as he can; however, he expresses understanding in terms of safety and need for placement given lack of at-home caregiver resources. Patient mentions that he is still seeing some blood on the toilet paper when he wipes. He denies any grace blood in the toilet when passing bowel movements. He is very tearful throughout our conversation. He expresses lack of personal support from his daughter, Mira. Patient lost his approximately 3 weeks ago. He mentions that the Seroquel makes him very tired. He currently denies any lightheadedness, dizziness or ambulatory issues. He has not required any supplemental oxygen support since being here. He does endorse using 2L of oxygen via [place] [facility] when home. Denies any SOB, chest pain, abdominal pain or urinary issues. Review of Systems Review of Systems: At least ten systems reviewed and negative, except as noted in the HPI. Physical Exam Physical Exam: General: WD/WN, vitals as above, NAD, laying down in bed, conversing appropriately.A+Ox3, tearful affect. HEENT: Normocephalic, atraumatic. PERRL, EOMI, conjunctivae normal, anicteric sclerae. External ear and nose normal, oropharynx normal. Neck: Normal visual inspection, trachea midline, no thyromegaly. Respiratory: Normal respiratory effort, lungs clear to auscultation, no wheeze, rales, rhonchi. No accessory muscle use. Cardiovascular: Regular rate, rhythm, no murmur, normal peripheral pulses, no BLE edema. Vessels: No JVD. Abdomen/GI: Normal bowel sounds, soft, nontender, no hepatosplenomegaly. Extremities/Musculoskeletal: No cyanosis or clubbing, extremities motor strength intact, moves all extremities. Neurologic: No face palsy, no dysarthria, CN's II-XI not formally tested but appear grossly intact bilaterally. Skin: No rashes, normal color, warm/dry. Results & Data Results & Data Vital Signs (Past 12 Hours) Vital Signs Temp Pulse Resp BP Pulse Ox O2 Del Method 12/13/23 07:49 Room Air 12/13/23 07:09 36.4 C L 74 17 133/87 94 Room Air Laboratory Results Short CBC 12/13/23 Range/Units 07:07 WBC 6.73 (4.8-10.8) K/ul Hgb 15.6 (14.0-18.0) g/dl Hct 45.1 (42.0-52.0) % Plt Count 178 (130-400) K/uL BMP 12/13/23 07:07 Creatinine 1.10 Diagnostic Findings Chest X-Ray 12/04/23 10:47 SINGLE VIEW CHEST CLINICAL HISTORY: Sepsis FINDINGS: An AP, portable, upright chest radiograph is compared to study dated 07/15/2023.. The heart is enlarged noting atherosclerotic calcification of the thoracic aorta. There is pulmonary vascular congestion. The cervical chain projects over the mitral valve. There is bibasilar scarring/atelectasis. No airspace consolidation or large pleural effusion is identified. No pneumothorax is seen. The skeletal structures are osteopenic. The bony thorax is grossly intact. Arthritic change is seen in the shoulders. IMPRESSION: 1. Cardiomegaly with pulmonary vascular congestion. 2. No airspace consolidation or large pleural effusion is identified. ACT 112: Negative or not required by law. Electronically signed by: Tobi Swenson M.D. 12/04/2023 1:13 PM Abdomen/Pelvis CT 12/04/23 11:16 CT SCAN OF THE ABDOMEN AND PELVIS WITHOUT IV CONTRAST CLINICAL HISTORY: Change in mental status. Lower abdominal pain COMPARISON STUDY: Abdominal CT dated 12/05/2021. TECHNIQUE: CT scan of the abdomen and pelvis is performed from the lung bases to the proximal femora. Images are reviewed in the axial, sagittal, and coronal planes. IV contrast was not administered for this examination as per the referring clinician. Note that the examination was performed insignificantly suboptimal fashion without oral and IV contrast. There is also motion artifact. A dose lowering technique was utilized adhering to the principles of ALARA. CT DOSE: 2063.83 mGy.cm FINDINGS: Lung bases: The heart is markedly enlarged and without pericardial effusion. Postsurgical change is seen in the expected location of the mitral valve. A small hiatal hernia is noted. The lung bases are clear noting bibasilar scarring/atelectasis. Liver: The unenhanced liver is normal in size, contour, and attenuation. There is no intrahepatic biliary ductal dilatation. Gallbladder: Surgically absent noting clips in the gallbladder fossa. Spleen: Normal in size and attenuation. Pancreas: The unenhanced pancreas is mildly atrophic and grossly unremarkable. Adrenal glands: Unremarkable. Kidneys: The unenhanced kidneys demonstrate cortical atrophy and are without hydronephrosis. There are no renal calculi identified. A 13 mm cyst is noted on the right. Abdominal vasculature: The abdominal aorta is normal in course and caliber noting moderate atherosclerotic calcification. Bowel: There is advanced colonic diverticulosis without CT evidence of acute diverticulitis. No bowel obstruction is seen. Moderate fecal retention is noted throughout the colon. The appendix is not identified and reported surgically absent. Peritoneum: There is no intraperitoneal free air or abdominal ascites. There is a fat-containing umbilical hernia. Lymphadenopathy: None. Pelvic viscera: The prostate gland is diminutive and heterogeneous. The bladder is mildly distended, and the wall is thickened/trabeculated indicating chronic outlet obstruction. A 4 mm bladder diverticulum is seen on the left. There are s mall bilateral fat-containing groin hernias. Skeletal structures: The skeletal structures are osteopenic. There is moderate to advanced lumbosacral spondylosis. Postlaminectomy changes seen in the lower lumbar region. Sclerotic change is noted in the pubic symphysis. No lytic or blastic lesions are seen. IMPRESSION: 1. Suboptimal examination without oral and IV contrast. 2. No acute infectious or inflammatory findings are identified in the abdomen or pelvis. 3. Marked cardiomegaly. 4. Colonic diverticulosis without CT evidence of acute diverticulitis. 5. Additional findings as above. ACT 112: Negative or not required by law. Electronically signed by: Tobi Swenson M.D. 12/04/2023 1:[address] 12/04/23 11:16 CT SCAN OF THE BRAIN WITHOUT IV CONTRAST CLINICAL HISTORY: Change in mental status. Hallucinations. COMPARISON STUDY: Abdominal CT dated 07/13/2023. TECHNIQUE: Unenhanced axial CT scan of the brain is performed from the vertex to the skull base. A dose lowering technique was utilized adhering to the principles of ALARA. FINDINGS: Brain parenchyma: A focus of right cerebellar encephalomalacia is unchanged and consistent with a remote insult. 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 A chronic appearing right occipital lobe infarct is new from 07/13/2023. There is age-related involutional change noting moderate subcortical and periventricular microangiopathic disease. There is no hemorrhage, mass effect, or evidence of acute territorial ischemia by CT criteria. Bland-white matter differentiation is preserved. No extra-axial fluid collection is seen. Ventricles, sulci, cisterns: Prominent secondary to involutional change. Intracranial vasculature: There is atherosclerotic calcification of the cavernous carotid arteries. Calvarium: Unremarkable. Sinuses and mastoids: The visualized paranasal sinuses are clear. The mastoid air cells are well pneumatized. Orbits: The bony orbits are grossly intact. There are bilateral ocular lens implants. IMPRESSION: There is no hemorrhage, mass effect, or evidence of acute territorial ischemia by CT criteria. ACT 112: Negative or not required by law. Electronically signed by: Tobi Swenson M.D. 12/04/2023 11:41 AM Abdomen/Pelvis CT 12/10/23 10:20 CT abd pelvis wo con CLINICAL HISTORY: eval for diverticular bleed vs other GIB, BRPR TECHNIQUE: Helical axial images of the abdomen and pelvis were obtained. Automated dose lowering techniques and/or adjustment according to patient size were utilized for this exam. This exam was performed without intravenous contrast. CT DOSE: 1303.8 mGy.cm COMPARISON: Comparison is made to CT abdomen pelvis 12/04/2023 FINDINGS: Lower chest: Cardiomegaly is partially visualized. Liver: Unremarkable. No focal lesions are seen. Gallbladder and biliary tree: Patient is status post cholecystectomy. No intra- or extrahepatic biliary ductal dilation. Pancreas: Unremarkable, no focal lesions. Spleen: Splenule is incidentally noted. Adrenals: Unremarkable. Kidneys and ureters: Unremarkable. Bladder: Unremarkable. Reproductive organs: Unremarkable. Bowel: Diverticulosis is seen without evidence of diverticulitis. A small hiatal hernia is seen Lymph nodes Retroperitoneal: Unremarkable. Pelvic: Unremarkable. Mesenteric: Unremarkable. Peritoneum: Normal. Vessels: Unremarkable. Abdominal wall: Unremarkable. Bones: Unremarkable. IMPRESSION: 1. No acute abnormality and in particular no evidence of GI bleed in this noncontrast exam. 2. Diverticulosis without diverticulitis. 3. Additional findings as above. ACT 112: Negative or not required by law. Electronically signed by: Osvalod Castellanos M.D. 12/10/2023 11:38 AM Medications Administered Acetaminophen (Acetaminophen 500 Mg Tab) 1,000 mg PO BID DANIELLE Stop: 01/03/24 19:59 Last Admin: 12/13/23 08:06 Dose: 1,000 mg Documented By: Admin: 12/12/23 20:45 Dose: 1,000 mg Documented By: Admin: 12/12/23 08:05 Dose: 1,000 mg Documented By: Admin: 12/11/23 20:28 Dose: 1,000 mg Documented By: Admin: 12/11/23 07:52 Dose: 1,000 mg Documented By: Admin: 12/10/23 20:42 Dose: 1,000 mg Documented By: Admin: 12/10/23 09:31 Dose: 1,000 mg Documented By: Admin: 12/09/23 20:39 Dose: 1,000 mg Documented By: Admin: 12/09/23 08:00 Dose: Not Given Documented By: Admin: 12/08/23 20:14 Dose: 1,000 mg Documented By: Admin: 12/08/23 09:42 Dose: 1,000 mg Documented By: Admin: 12/07/23 20:03 Dose: 1,000 mg Documented By: Admin: 12/07/23 07:31 Dose: 1,000 mg Documented By: Admin: 12/06/23 20:05 Dose: 1,000 mg Documented By: Admin: 12/06/23 07:59 Dose: 1,000 mg Documented By: Admin: 12/05/23 20:45 Dose: 1,000 mg Documented By: Admin: 12/05/23 09:07 Dose: 1,000 mg Documented By: Admin: 12/04/23 20:34 Dose: 1,000 mg Documented By: JOSELIN Acetaminophen (Acetaminophen 325 Mg Tab) 650 mg PO Q4H PRN PRN Reason: Moderate Pain (Scale 4, 5, 6) Stop: 01/03/24 19:25 Last Admin: 12/11/23 05:41 Dose: 650 mg Documented By: JOHNIE(2) Admin: 12/10/23 03:12 Dose: 650 mg Documented By: Admin: 12/09/23 07:58 Dose: 650 mg Documented By: Admin: 12/07/23 11:55 Dose: 650 mg Documented By: Admin: 12/05/23 01:26 Dose: 650 mg Documented By: WILBERT Allopurinol (Allopurinol 300 Mg Tab) 300 mg PO QAM [facility] Stop: 01/04/24 08:59 Last Admin: 12/13/23 08:07 Dose: 300 mg Documented By: Admin: 12/12/23 08:03 Dose: 300 mg Documented By: Admin: 12/11/23 07:49 Dose: 300 mg Documented By: Admin: 12/10/23 09:32 Dose: 300 mg Documented By: Admin: 12/09/23 07:50 Dose: 300 mg Documented By: Admin: 12/08/23 09:44 Dose: 300 mg Documented By: Admin: 12/07/23 07:25 Dose: 300 mg Documented By: Admin: 12/06/23 07:58 Dose: 300 mg Documented By: Admin: 12/05/23 09:06 Dose: 300 mg Documented By: JOHNIE Aspirin (Aspirin 81 Mg Ectab) 81 mg PO QAM DANIELLE Stop: 01/04/24 08:59 Last Admin: 12/11/23 07:48 Dose: 81 mg Documented By: Admin: 12/10/23 09:44 Dose: 81 mg Documented By: Admin: 12/09/23 07:50 Dose: 81 mg Documented By: Admin: 12/08/23 09:45 Dose: 81 mg Documented By: Admin: 12/07/23 07:25 Dose: 81 mg Documented By: Admin: 12/06/23 07:58 Dose: 81 mg Documented By: Admin: 12/05/23 09:08 Dose: 81 mg Documented By: JOHNIE Azelastine HCl (Azelastine Hcl 0.1% Nasal 200 Sprays/27,400 Mcg Btl) 1 sprays NA BID PRN PRN Reason: Allergic Symptoms Stop: 01/09/24 01:09 Last Admin: 12/13/23 08:06 Dose: 1 sprays Documented By: Admin: 12/10/23 03:12 Dose: 1 sprays Documented By: RAY Clopidogrel Bisulfate (Clopidogrel Bisulfate 75 Mg Tab) 75 mg PO DAILY DANIELLE Stop: 01/04/24 08:59 Last Admin: 12/10/23 09:32 Dose: 75 mg Documented By: Admin: 12/09/23 07:50 Dose: 75 mg Documented By: Admin: 12/08/23 09:45 Dose: 75 mg Documented By: Admin: 12/07/23 07:27 Dose: 75 mg Documented By: Admin: 12/06/23 07:58 Dose: 75 mg Documented By: Admin: 12/05/23 09:07 Dose: 75 mg Documented By: JOHNIE Docusate Sodium (Docusate Sodium 100 Mg Cap) 100 mg PO BID DANIELLE Stop: 01/03/24 20:59 Last Admin: 12/13/23 08:06 Dose: 100 mg Documented By: Admin: 12/12/23 20:45 Dose: 100 mg Documented By: Admin: 12/12/23 08:04 Dose: Not Given Documented By: Admin: 12/11/23 20:28 Dose: 100 mg Documented By: Admin: 12/11/23 07:51 Dose: Not Given Documented By: Admin: 12/10/23 20:42 Dose: 100 mg Documented By: Admin: 12/10/23 09:32 Dose: 100 mg Documented By: Admin: 12/09/23 20:40 Dose: 100 mg Documented By: Admin: 12/09/23 07:58 Dose: 100 mg Documented By: Admin: 12/08/23 20:14 Dose: 100 mg Documented By: Admin: 12/08/23 09:42 Dose: 100 mg Documented By: Admin: 12/07/23 20:03 Dose: 100 mg Documented By: Admin: 12/07/23 07:27 Dose: Not Given Documented By: Admin: 12/06/23 20:05 Dose: 100 mg Documented By: Admin: 12/06/23 07:59 Dose: 100 mg Documented By: Admin: 12/05/23 20:45 Dose: 100 mg Documented By: Admin: 12/05/23 09:08 Dose: 100 mg Documented By: Admin: 12/04/23 20:35 Dose: 100 mg Documented By: JOSELIN Finasteride (Finasteride 5 Mg Tab) 5 mg PO QAM DANIELLE Stop: 01/04/24 08:59 Last Admin: 12/13/23 08:07 Dose: 5 mg Documented By: Admin: 12/12/23 08:03 Dose: 5 mg Documented By: Admin: 12/11/23 07:49 Dose: 5 mg Documented By: Admin: 12/10/23 09:32 Dose: 5 mg Documented By: Admin: 12/09/23 07:54 Dose: 5 mg Documented By: Admin: 12/08/23 09:45 Dose: 5 mg Documented By: Admin: 12/07/23 07:25 Dose: 5 mg Documented By: Admin: 12/06/23 07:59 Dose: 5 mg Documented By: Admin: 12/05/23 09:08 Dose: 5 mg Documented By: SWD Fluticasone Propionate (Fluticasone Propionate Na Spr 16 Gm Btl) 2 sprays NA BID DANIELLE Stop: 01/05/24 09:44 Last Admin: 12/13/23 08:06 Dose: 2 sprays Documented By: Admin: 12/12/23 20:46 Dose: 2 sprays Documented By: Admin: 12/12/23 08:02 Dose: 2 sprays Documented By: Admin: 12/11/23 20:30 Dose: 2 sprays Documented By: Admin: 12/11/23 07:50 Dose: 2 sprays Documented By: Admin: 12/10/23 20:44 Dose: 2 sprays Documented By: Admin: 12/10/23 09:34 Dose: 2 sprays Documented By: Admin: 12/09/23 20:40 Dose: 2 sprays Documented By: Admin: 12/09/23 07:52 Dose: 2 sprays Documented By: Admin: 12/08/23 20:14 Dose: 2 sprays Documented By: Admin: 12/08/23 09:46 Dose: 2 sprays Documented By: Admin: 12/07/23 20:03 Dose: 2 sprays Documented By: Admin: 12/07/23 07:25 Dose: 2 sprays Documented By: Admin: 12/06/23 20:05 Dose: 2 sprays Documented By: Admin: 12/06/23 10:19 Dose: 2 sprays Documented By: GUNNAR Furosemide (Furosemide 40 Mg Tab) 40 mg PO QAM DANIELLE Stop: 01/07/24 08:59 Last Admin: 12/13/23 08:07 Dose: 40 mg Documented By: Admin: 12/12/23 08:03 Dose: 40 mg Documented By: Admin: 12/11/23 07:49 Dose: 40 mg Documented By: Admin: 12/10/23 09:35 Dose: 40 mg Documented By: Admin: 12/09/23 07:53 Dose: 40 mg Documented By: Admin: 12/08/23 09:45 Dose: 40 mg Documented By: ANGI Gabapentin (Gabapentin 300 Mg Cap) 300 mg PO TID DANIELLE Stop: 01/03/24 20:59 Last Admin: 12/13/23 08:07 Dose: 300 mg Documented By: Admin: 12/12/23 20:45 Dose: 300 mg Documented By: Admin: 12/12/23 14:38 Dose: 300 mg Documented By: Admin: 12/12/23 08:02 Dose: 300 mg Documented By: Admin: 12/11/23 20:29 Dose: 300 mg Documented By: Admin: 12/11/23 14:44 Dose: 300 mg Documented By: Admin: 12/11/23 07:49 Dose: 300 mg Documented By: Admin: 12/10/23 20:40 Dose: 300 mg Documented By: Admin: 12/10/23 13:42 Dose: 300 mg Documented By: Admin: 12/10/23 09:32 Dose: 300 mg Documented By: Admin: 12/09/23 20:41 Dose: 300 mg Documented By: Admin: 12/09/23 15:01 Dose: 300 mg Documented By: Admin: 12/09/23 07:52 Dose: 300 mg Documented By: Admin: 12/08/23 20:15 Dose: 300 mg Documented By: Admin: 12/08/23 14:35 Dose: 300 mg Documented By: Admin: 12/08/23 09:45 Dose: 300 mg Documented By: Admin: 12/07/23 20:03 Dose: 300 mg Documented By: Admin: 12/07/23 11:55 Dose: 300 mg Documented By: Admin: 12/07/23 07:27 Dose: 300 mg Documented By: Admin: 12/06/23 20:05 Dose: 300 mg Documented By: Admin: 12/06/23 13:05 Dose: 300 mg Documented By: Admin: 12/06/23 07:59 Dose: 300 mg Documented By: Admin: 12/05/23 20:45 Dose: 300 mg Documented By: Admin: 12/05/23 14:13 Dose: 300 mg Documented By: Admin: 12/05/23 09:07 Dose: 300 mg Documented By: Admin: 12/04/23 20:35 Dose: 300 mg Documented By: JOSELIN Hydrocortisone (Hydrocortisone Acetate 25 Mg Supp) 25 mg NV BID DANIELLE Stop: 12/17/23 20:59 Last Admin: 12/13/23 08:29 Dose: 25 mg Documented By: Admin: 12/12/23 20:45 Dose: 25 mg Documented By: Admin: 12/12/23 08:02 Dose: 25 mg Documented By: Admin: 12/11/23 20:28 Dose: 25 mg Documented By: Admin: 12/11/23 07:50 Dose: 25 mg Documented By: Admin: 12/10/23 20:39 Dose: 25 mg Documented By: JAZ Loratadine (Loratadine 10 Mg Tab) 10 mg PO QAM DANIELLE Stop: 01/04/24 18:29 Last Admin: 12/13/23 08:07 Dose: 10 mg Documented By: Admin: 12/12/23 08:04 Dose: 10 mg Documented By: Admin: 12/11/23 07:48 Dose: 10 mg Documented By: Admin: 12/10/23 09:33 Dose: 10 mg Documented By: Admin: 12/09/23 07:49 Dose: 10 mg Documented By: Admin: 12/08/23 09:45 Dose: 10 mg Documented By: Admin: 12/07/23 07:27 Dose: 10 mg Documented By: Admin: 12/06/23 07:59 Dose: 10 mg Documented By: Admin: 12/05/23 20:45 Dose: 10 mg Documented By: HNT Magnesium Hydroxide (Magnesium Hydroxide Susp 30 Ml Udc) 30 ml PO BID DANIELLE Stop: 01/05/24 09:44 Last Admin: 12/13/23 08:11 Dose: 30 ml Documented By: Admin: 12/12/23 20:45 Dose: 30 ml Documented By: Admin: 12/12/23 08:04 Dose: Not Given Documented By: Admin: 12/11/23 20:29 Dose: 30 ml Documented By: Admin: 12/11/23 07:51 Dose: Not Given Documented By: Admin: 12/10/23 20:40 Dose: 30 ml Documented By: Admin: 12/10/23 09:35 Dose: Not Given Documented By: Admin: 12/09/23 20:41 Dose: 30 ml Documented By: Admin: 12/09/23 07:58 Dose: 30 ml Documented By: Admin: 12/08/23 20:15 Dose: 30 ml Documented By: Admin: 12/08/23 09:42 Dose: 30 ml Documented By: Admin: 12/07/23 20:04 Dose: Not Given Documented By: Admin: 12/07/23 07:24 Dose: Not Given Documented By: Admin: 12/06/23 20:05 Dose: 30 ml Documented By: Admin: 12/06/23 10:19 Dose: 30 ml Documented By: GUNNAR Menthol (Cough Drop (Sugar Free) Lore 24 Lore/1 Box) 1 lore BUCCAL Q6H PRN PRN Reason: Sore Throat Stop: 01/04/24 00:12 Last Admin: 12/05/23 23:00 Dose: 1 lore Documented By: Admin: 12/05/23 17:04 Dose: 1 lore Documented By: Admin: 12/05/23 01:01 Dose: 1 lore Documented By: WILBERT Metoprolol Succinate (Metoprolol Succ 25mg Ext Rel Tab) [facility] [place] Stop: 01/04/24 08:59 Last Admin: 12/13/23 08:07 Dose: 25 mg Documented By: Admin: 12/12/23 08:03 Dose: 25 mg Documented By: Admin: 12/11/23 07:48 Dose: 25 mg Documented By: Admin: 12/10/23 09:33 Dose: 25 mg Documented By: Admin: 12/09/23 07:50 Dose: 25 mg Documented By: Admin: 12/08/23 09:45 Dose: 25 mg Documented By: Admin: 12/07/23 07:25 Dose: 25 mg Documented By: Admin: 12/06/23 07:59 Dose: 25 mg Documented By: Admin: 12/05/23 09:09 Dose: 25 mg Documented By: JOHNIE Ondansetron HCl (Ondansetron Inj 2 Mg/Ml 2 Ml Vial) 4 mg IV Q4H PRN PRN Reason: Nausea And Vomiting Stop: 01/03/24 19:25 Last Admin: 12/10/23 10:14 Dose: 4 mg Documented By: CARLOTTA Pantoprazole Sodium (Pantoprazole 40 Mg Tab) 40 mg [facility] [place] Stop: 01/09/24 15:59 Last Admin: 12/13/23 08:07 Dose: 40 mg Documented By: Admin: 12/12/23 08:03 Dose: 40 mg Documented By: Admin: 12/11/23 07:49 Dose: 40 mg Documented By: Admin: 12/10/23 16:05 Dose: 40 mg Documented By: CARLOTTA Phenol (Chloraseptic (Phenol) 1.4% Soln 180 Ml Btl) 1 sprays MT TID PRN PRN Reason: Sore Throat Stop: 01/05/24 01:10 Last Admin: 12/06/23 01:32 Dose: 1 sprays Documented By: DANNIELLET Quetiapine Fumarate (Quetiapine Fumarate 25 Mg Tablet) 12.5 mg PO HS DANIELLE Stop: 01/04/24 20:59 Last Admin: 12/12/23 20:45 Dose: 12.5 mg Documented By: Admin: 12/11/23 20:28 Dose: 12.5 mg Documented By: Admin: 12/10/23 20:37 Dose: 12.5 mg Documented By: Admin: 12/09/23 20:41 Dose: 12.5 mg Documented By: Admin: 12/08/23 20:15 Dose: 12.5 mg Documented By: Admin: 12/07/23 20:04 Dose: 12.5 mg Documented By: Admin: 12/06/23 20:05 Dose: 12.5 mg Documented By: Admin: 12/05/23 20:45 Dose: 12.5 mg Documented By: RODNEY Rosuvastatin Calcium (Rosuvastatin Calcium 20 Mg Tab) 20 mg PO QAM DANIELLE Stop: 01/04/24 15:14 Last Admin: 12/13/23 08:07 Dose: 20 mg Documented By: Admin: 12/12/23 08:04 Dose: 20 mg Documented By: Admin: 12/11/23 07:49 Dose: 20 mg Documented By: Admin: 12/10/23 09:33 Dose: 20 mg Documented By: Admin: 12/09/23 07:51 Dose: 20 mg Documented By: Admin: 12/08/23 09:45 Dose: 20 mg Documented By: Admin: 12/07/23 07:25 Dose: 20 mg Documented By: Admin: 12/06/23 09:01 Dose: 20 mg Documented By: Admin: 12/05/23 16:50 Dose: 20 mg Documented By: GUNNAR Discontinued Medications Enoxaparin Sodium (Enoxaparin Inj 40 Mg/0.4 Ml Syr) 40 mg SQ QAM DANIELLE Stop: 01/04/24 08:59 Last Admin: 12/10/23 09:43 Dose: Not Given Documented By: Admin: 12/09/23 07:53 Dose: 40 mg Documented By: Admin: 12/08/23 09:44 Dose: 40 mg Documented By: Admin: 12/07/23 07:29 Dose: 40 mg Documented By: Admin: 12/06/23 07:59 Dose: 40 mg Documented By: Admin: 12/05/23 09:06 Dose: 40 mg Documented By: JOHNIE Furosemide (Furosemide Inj 20 Mg/2 Ml Vial) 20 mg IV ONE ONE Stop: 12/04/23 17:20 Last Admin: 12/04/23 18:07 Dose: 20 mg Documented By: MIKE Furosemide (Furosemide Inj 20 Mg/2 Ml Vial) 20 mg IV DAILY DANIELLE Stop: 01/04/24 08:59 Last Admin: 12/07/23 07:31 Dose: 20 mg Documented By: Admin: 12/06/23 07:59 Dose: 20 mg Documented By: Admin: 12/05/23 09:09 Dose: 20 mg Documented By: JOHNIE Olanzapine (Olanzapine 10 Mg/2.1 Ml Sdv) 2.5 mg IM NOW STA Stop: 12/05/23 06:15 Last Admin: 12/05/23 15:16 Dose: Not Given Documented By: MARA (1) AMS (altered mental status) Altered mental status type: unspecified Qualified Code(s): R41.82 - Altered mental status, unspecified (2) CHF (congestive heart failure) Heart failure chronicity: unspecified Heart failure type: unspecified Qualified Code(s): I50.9 - Heart failure, unspecified (3) Atrial fibrillation Atrial fibrillation type: longstanding persistent Qualified Code(s): I48.11 - Longstanding persistent atrial fibrillation (4) HTN (hypertension) Hypertension type: unspecified Qualified Code(s): I10 - Essential (primary) hypertension (6) Mitral regurgitation Cardiac valve disease etiology: etiology unspecified Qualified Code(s): I34.0 - Nonrheumatic mitral (valve) insufficiency
[2023-12-13 10:29] LABS: Creatinine Clr Calc Pharmacy 55.2 ml/min; Est GFR (African American) 70.6 ml/min; Est GFR (Non-African American) 60.9 ml/min
--- NOTE | 2023-12-14 06:39 | Discharge Summary ---
Date of Service December 14, 2023 Admission HPI Per Admitting Provider This is a 83-year-old male with PMHx of chronic diastolic heart failure (EF 55%, TTE 2022), valvular heart disease (severe MR status post MitraClip surgery, hx TR), A-fib status post Watchman device, PVD, DEX/CSA BiPAP intolerant,, hypertension, prediabetes, GERD, BPH, MCTD as per records, hx vertigo, sacroiliitis, anxiety/mood disorder.who presents to the hospital with worsening altered mental status. It appears that he was started on Zoloft approximately 1 week ago and has worsening hallucinations since that timeframe per daughters report to the ER. Similarly per EMR link when he started trial of BuSpar in the past he also had development of hallucinations. I discussed his case with Bindu (step-daughter), Patient called his daughter this morning, stripping bed, thinking there were people plastering his house, which is not occurring per Bindu. His other daughter, Mira, is currently in [place] visiting friends, thinking she was having an affair but this also is not actually occurring. Pt states he took 2 zolofts total, which arrived in the mail Wednesday night, but is confused if he took one yesterday and today, or two together last night. Also when reviewing medications with the patient, he is telling me that he used to take Lasix 15 and increased it to 20 mg, which does not make sense as he was never prescribed 15 mg on my review. He cannot recall if he actually took his medications this morning. Nursing states that he was wandering around the C pod earlier today looking for his dog. The patient himself today denies any auditory or visual hallucinations. He says he sometimes sees barnhart/black visual changes out of the left triana, but that has been going on for some time now. He denies remembering exactly what happened this morning. He denies any acute complaints of worsening pain but states that he does use pain meds for his lower back 2-3 times per day. Family has concern for his safety at home as he lives alone, with left hand removed sometime ago and being left-handed, having to learn to be right-handed, family wonders if they may benefit from having him placed in a facility. Admission Exam Per Admitting Provider General: awake, alert, no apparent distress, elderly white male Head: Normocephalic, atraumatic ENT: PERRL, EOMI, no pharyngeal exudate, mucous membranes moist Chest: On 2 LPM NC, diminished breath sounds throughout, expiratory wheeze audible, faint crackles, no rales Cardiac: irregularly irregular, rate controlled, no murmur, no JVD, normal peripheral pulses, good capillary refill Abdominal: protuberant abdomen, NABS x 4 quadrants, soft, nondistended, nontender to palpation, no rebound or guarding Extremities: Normal inspection, no peripheral edema or erythema, calfs nontender to palpation Psych: Normal mood and affect confused, denies auditory or visual hallucinations, denies SI and HI Neuro: AAO to self, place that he is in a hospital, cannot recall events from this morning, strength intact bilaterally and rated 4/5, no motor deficits, speech is clear, no peripheral sensory deficits Principal Diagnosis Altered Mental Status (AMS) Acute on Chronic Diastolic Heart Failure Discharge Exam General: WD/WN, vitals as above, NAD, laying down in bed, conversing appropriately. A+Ox3, euthymic affect. HEENT: Normocephalic, atraumatic. PERRL, EOMI, conjunctivae normal, anicteric sclerae. External ear and nose normal, oropharynx normal. Neck: Normal visual inspection, trachea midline, no thyromegaly. Respiratory: Normal respiratory effort, lungs clear to auscultation, no wheeze, rales, rhonchi. No accessory muscle use. Cardiovascular: Regular rate, rhythm, no murmur, normal peripheral pulses, no BLE edema. Vessels: No JVD. Abdomen/GI: Normal bowel sounds, soft, nontender, no hepatosplenomegaly. Extremities/Musculoskeletal: No cyanosis or clubbing, extremities motor strength intact, moves all extremities. Neurologic: No face palsy, no dysarthria, CN's II-XI not formally tested but appear grossly intact bilaterally. Skin: No rashes, normal color, warm/dry. Discharge Data Allergies Allergy/AdvReac Type Severity Reaction Status Date / Time adhesive Allergy Mild BLISTER Verified 06/09/21 18:11 SKIN levofloxacin [From Levaquin] Allergy Unknown CAN'T Verified 06/09/21 18:11 REMEMBER sertraline AdvReac Severe hallucinati Verified 12/09/23 16:22 ons duloxetine [From Cymbalta] AdvReac Intermediate confusion Verified 07/13/23 06:49 Consultations 12/04/23 16:49 ED Decision to Admit Stat 12/05/23 11:11 Consult Psychiatry Routine 12/10/23 14:50 Consult Gastroenterology Routine Ordered Studies 12/04/23 11:16 CT Abd and Pelvis [CT abd pelvis wo con] Stat CT head/brain wo con Stat 12/10/23 10:20 CT Abd and Pelvis [CT abd pelvis wo con] Stat Hospital Course (1) AMS (altered mental status): (2) CHF (congestive heart failure): (3) Atrial fibrillation: (4) HTN (hypertension): (5) Presence of Watchman left atrial appendage closure device: (6) Mitral regurgitation: (7) Chronic hypoxic respiratory failure, on home oxygen therapy: (8) Rectal bleeding: Neil Silvestre is an 83 y/o M with PMHx of chronic diastolic heart failure [EF 55%; TTE 2022], valvular heart disease [severe MR s/p MitraClip surgery; hx TR], A-fib s/p Watchman device, PVD, DEX/CSA BiPAP intolerance, hypertension, prediabetes, GERD, BPH, MCTD as per records, hx of vertigo, sacroiliitis, anxiety/mood disorder and other problems listed below who presented to the hospital with worsening altered mental status. Possible Metabolic/Toxic Encephalopathy: Likely 2/2 side effect from SSRI (sertraline). Patient presented to ED with hallucinations after he was started on sertraline. Admitting CT head with no acute finding. UA negative for infection, blood culture negative growth after 5 days. Psychiatry was consulted. Patient was transitioned from sertraline to Seroquel 12.5mg HS. Patient doing well on this medication at time of discharge. Mentions his anxiety symptoms are beginning to improve a little bit. His mentation status is now back at baseline. Acute BRBPR Patient had 3 episodes of BRBPR on 12/10/2023. GI evaluated him and recommended holding his ASA and Plavix. Those medications will continue to be on hold at time of discharge due to the patient still experiencing scant blood on the toilet paper when wiping following bowel movements. His last c-scope in 2020 showed internal hemorrhoids and sigmoid diverticulosis, which was done 2/2 rectal bleeding on Eliquis and was felt to be diverticular in nature versus hemorrhoids. Patient was on SQ Lovenox for DVT prophylaxis while admitted up until the BRBPR started, then that medication was ultimately stopped and SCDs were utilized. Patient will need to be assessed in the outpatient setting to determine when to restart DAPT. He will continue daily PPI therapy and Anusol HC OR BID at time of discharge. Patients Hgb remained stable around 15 throughout his hospitalization. Acute on Chronic Diastolic Heart Failure Valvular Heart Disease Severe Mitral Regurgitation S/P Surgery H/O Tricuspid Regurgitation Peripheral Vascular Disease Admitting CXR revealed cardiomegaly with pulmonary vascular congestion. Patient had an echocardiogram in 06/2023 that revealed the following: Mild concentric LVH. Left ventricle wall motion is normal. Left ventricle systolic function is normal. EF 55 to 60%. Left atrium is severely dilated. Evidence of percutaneous mitral valve clip. Mild mitral and tricuspid regurgitation. Pulmonary artery systolic pressure estimated to be 51 mmHg. Patient is now s/p IV Lasix therapy; his weight has remained stable around 99-100kg. Patient can continue to take his oral Lasix as prescribed. He appeared euvolemic on physical examination at time of discharge. Persistent Atrial Fibrillation S/P Watchman Procedure: Patient to continue taking his metoprolol succinate as prescribed at time of discharge. Chronic Hypoxic Respiratory Failure 2/2 DEX Intolerant to BiPAP, CHF, Afib: Patient to continue supplemental oxygen at HS at time of discharge. Hx of R Occipital CVA Patient was on aspirin, Plavix and statin therapies as outpatient. Plan to continue holding his DAPT at time of discharge until follow-up with PCP given patients experience of blood on the toilet paper after wiping. Patient has a history of failing just ASA therapy in the setting of stroke, hence long-term DAPT candidate given not an oral anticoagulation candidate. Evaluation for Cognitive Decline Patient without formal diagnosis of dementia at time of admission. His daughter was concerned about cognitive decline. Patient was formally evaluated by speech therapy, whom recommend formal neuropsychiatric testing in the outpatient setting. Patient was ultimately started on rosuvastatin during his hospitalization 2/2 concern for possible vascular dementia. Chronic Back Pain H/O Sacroiliitis H/O Lumbar Laminectomy 2/2 Severe Lumbar Spinal Stenosis Patients last SI joint injection was approximately 1 month prior to admission. Patient had previously declined lumbosacral MRI and additional injections. Given presenting hallucinations, cautious use of pain medications was initiated throughout his hospitalization. Depression: Sertraline was discontinued 2/2 presenting hallucinations. Ps ychiatry evaluated the patient and he was subsequently transitioned to Seroquel 12.5mg HS. Patient will continue this medication regimen at time of discharge. Prediabetes: Hemoglobin A1c of 5.6 last year; did not repeat patients Hgb A1c while he was admitted, glucose levels were well-controlled. BPH: Patient can continue [employer] finasteride at time of discharge. Gout: Patient can continue [employer] allopurinol at time of discharge. Obesity: BMI 35 on admission, outpatient follow-up with PCP is recommended at time of discharge to address this concern. PCP: Benny Waite DO Dispo: Patient being discharged to [facility] this morning. Patient seen in collaboration with Dr. Basurto. Please see addendum. I spent a total of 50 minutes coordinating, documenting, and providing care for this patient excluding time spent in the performance of separately billed services. This included personally reviewing all current laboratories and imaging studies, medical reconciliation, outpatient chart review and discussion with specialists. This chart was completed in part utilizing Speech Voice Recognition Software. Grammatical errors, random word insertions, pronoun errors, and incomplete sentences are an occasional consequence of this system due to software limitations, ambient noise, and hardware issues. Any formal questions or concerns about the content, text, or information contained within the body of this dictation should be directly addressed to the provider for clarification. Home Health Attestation I certify that this patient is under my care and that I, or a physicians sociology research assistant working with me, had a face to-face encounter that meets the home health [id number] encounter requirements with this patient. The encounter with the patient was in whole, or in part, for the following medical condition, which is the primary reason for home health care (list medical condition): I certify that, based on my findings, the following services are medically ne cessary home health services: My clinical findings support the need for the above services because: Further, I certify that my clinical findings support that this patient is homebound (i.e. absences from home require considerable and taxing effort and are for medical reasons or confucianist services or infrequently or of short duration when for other reasons) because: Certification for Home Health Services: Based on the above findings, I certify that this patient is confined to the home and needs intermittent long term care, physical therapy and/or speech therapy or continues to need occupational therapy. The patient is under my care, and I have initiated the establishment of the plan of care. This patient will be followed by a physician who will periodically review the plan of care. Total Time Total Time Spent Total Time Spent (In Minutes): 50 Discharge Plan Discharge Items Patient Disposition: Personal Shelter Reason For Visit: ENCEPHALOPATHY Discharge Diagnosis: Altered Mental Status (AMS) Acute on Chronic Diastolic Heart Failure Acute Bright Red Blood Per Rectum (BRBPR) Activity: Resume your previous activity Non-emergency contact: Primary Care Provider Call non-emergency contact if: you have any medication questions and your symptoms worsen Follow-up/Referrals: Benny Waite, [Primary Care Provider] - (Dr Waite's office is aware of your discharge and will contact you for a follow up appointment.) Diet: Heart Healthy Diet Texture: Easy to Chew Addtl Attending Provider Instructions: You were admitted to the hospital due to altered mental status (AMS). We suspect your hallucinations occurred secondary to being started on sertraline (AKA Zoloft). Therefore, we stopped your sertraline. You were seen by psychiatry during your hospitalization. Psychiatry started you on quetiapine (AKA Seroquel). Please continue to take your Seroquel as prescribed. You were also treated for acute heart failure during your admission. We administered IV furosemide (Lasix), which is a diuretic medication, to help eliminate the fluid that accumulated in your lungs. Please continue to take your oral furosemide (Lasix) as prescribed following discharge from the hospital. We stopped your aspirin and Plavix while you were admitted as well. We did this because you were experiencing blood in your bowel movements. Please continue to HOLD your aspirin and Plavix until you follow-up with your primary care provider (PCP). Please follow-up with your PCP within the next week. You are being discharged to [facility]. Seek medical attention if you have: * temperature above 101 * chest pain or trouble breathing * abdominal pain, nausea, vomiting * diarrhea, dark stools or bloody stools * any unanswered questions or concerns Call 911 if symptoms are severe. Please take good care of yourself. It has been a pleasure taking care of you. Please take care of yourself. If you have any questions regarding your recent hospitalization please contact [facility] and request Pat Branch @ [phone]. Pending Studies at Discharge: No Stand-Alone Forms: My [facility], Smoking Cessation Skilled Items Patient informed of condition?: Yes DNR: Yes Discharge Level of Care: Other Communicable Disease: No Discharge Prognosis: Stable Lines: None Urinary Catheter: No Medications and DC Order Prescriptions: New desloratadine 5 mg tablet 10 mg PO DAILY Qty: 60 0RF rosuvastatin 20 mg Tablet 20 mg PO QAM Qty: 30 0RF quetiapine 25 mg Tablet 12.5 mg PO HS Qty: 30 0RF azelastine 137 mcg (0.1 %) Aerosol,[place] 1 spray NA BID PRN (Reason: allergy symptoms) 30 Days Qty: 30 0RF fluticasone propionate 50 mcg/actuation [place],Suspension 2 spray NA BID 30 Days Qty: 16 0RF hydrocortisone acetate [Anucort-HC] 25 mg Suppository 25 mg OR BID Qty: 30 0RF pantoprazole 40 mg Tablet,Delayed Release (Dr/Ec) 40 mg PO QAM Qty: 30 0RF Continued allopurinol 300 mg tablet 300 mg PO QAM acetaminophen 500 mg Tablet 1,000 mg PO AMPM docusate sodium 100 mg Capsule 100 mg PO BID finasteride 5 mg tablet 5 mg PO QAM ketoconazole 2 % cream 1 applic TOPICAL UD furosemide [Lasix] 20 mg tablet 40 mg PO DAILY meclizine 12.5 mg Tablet 12.5 mg PO BID PRN (Reason: Dizziness) Qty: 30 0RF gabapentin 300 mg capsule 300 mg PO TID Qty: 90 0RF metoprolol succinate 25 mg Tablet Extended Release 24 Hr 25 mg PO QAM Qty: 30 1RF Held clopidogrel 75 mg tablet 75 mg PO DAILY Hold Instructions: Please do not take this medication until you are seen by your PCP in the outpatient setting. aspirin 81 mg Tablet,Chewable 81 mg PO QAM Hold Instructions: Please do not take this medication until you are seen by your PCP in the outpatient setting. Discontinued tramadol 50 mg tablet 50 mg PO Q6 PRN (Reason: pain,severe) sertraline 25 mg tablet 25 mg PO DAILY Discharge Orders: Discharge Order (Routine); Ordered 12/14/23 Ordered By: Rosaura Gunn/Other Patient Handouts: Quetiapine Oral Tablet, Low-Salt Choices, Heart Failure Post Hospital, Tracking Symptoms of Heart Failure, ED Confusion, Heart Failure Admission Data Admit Date/Time: 12/04/23 16:35 Attending Provider: Juan Basurto Admit Provider: Rebel Gotti Primary Care Provider: Benny Waite Other Providers: Rebel Gotti; Libertad Haro; Kris Cerda; Gm Talamantes Jr; Maria Elena Omalley; Maddy Martinez; Paul Ozuna; Leo Valerio Other Interventions: Discharge Summary Assessment (RN) Last Done: 12/14/23 09:52 Supervising Physician Co-Signing Physician Notes 83 yo M was seen and examined at bedside as f/u of AMS likely 2/2 sertraline, now changed to seroquel and doing better, also had acute brbpr while in hospital, now blood per rectum resolved, likely hemorrhoids on anusol HC cream bid x 7days, pt advised to f/u w/ pcp for evaluation regarding resuming his aspirin and plavix which are on hold at the time of discharge. Pt voiced understanding. On exam, on ra, no ble edema, heart/lungs/abdomen exam wnl. rest of the exam as above. I have seen and examined the patient and have discussed the case with the provider above. I agree with the assessment and plan as stated.
== END 2023-12-14 10:18 | disposition home or self-care (01) | DRG 91 ==
LOC: ED 10:05 → SUATTDRO 16:35 → EDINP 16:35 → 2N 19:26 → 3N 12-08 22:07

== ENCOUNTER 2024-03-26 09:39 | Inpatient (IN) ==
--- OUTSIDE RECORDS SUMMARY | 2024-03-26 09:47 | External Medical Summary | Summary of Care ---
Author Name Unknown Organization [facility] Address [address] [facility] [place] [address] Phone [phone] Care Team Providers Care Millwright Apprentice Name Role Phone Benny Waite DO Primary Care Provider [phone] Reason for Visit * Reason Onset Date Comments Information 03/23/2024 Encounter Details Date Type Department Care Team (Late st Contact Info) Description 03/23/2024 Telephone Cardiology, [facility] [address] [place] [id number] Júnior Coppola PA-C [address] [facility] [place] [address] Information Allergies Active Allergy Reactions Criticality Noted Date Comments Adhesive Tape 02/04/2017 Duloxetine High 07/13/2023 Other Reaction(s): confusion Levofloxacin 09/01/2019 documented as of this encounter (statuses as of 03/24/2024) Medications Medication Sig Dispensed Refills Start Date End Date Status Acetaminophen 500 MG Oral Tablet Take 2 Tablets by mouth in the morning and 2 Tablets before bedtime. TAKE 2 IN THE MORNING AND 2 IN THE EVENING. Active Docusate Sodium 100 MG Oral Capsule [...] mouth daily. 90 Tablet 3 08/09/2023 Active Meclizine HCl 12.5 MG Oral Tablet (Antivert) Take 1 Tablet by mouth 2 times a day as needed for Dizziness. 60 Tablet 3 11/15/2023 Active Furosemide 40 MG Oral Tablet (Lasix)Indications [...] failure managing provider. 1 Each 12/01/2023 Active Fluticasone Propionate 50 MCG/ACT Nasal Suspension (Flonase)Indicatio ns:Allergies Administer 2 Sprays into nostril in the morning and 2 Sprays before bedtime. 16 g 2 12/17/2023 Active Azelastine HCl 137 MCG/SPRAY Nasal SolutionIndication s:Allergies Administer 1 Markle into each nostril 2 times a day as needed for Allergies (allergy symptoms). 30 mL 3 12/17/2023 Active Ketoconazole 2 % External Cream Apply 1 Application topically to affected area as needed for Itching. Apply to affected area Active Pantoprazole Sodium 40 MG Oral Tablet Delayed Release (Protonix) Take 1 Tablet by mouth in the morning. 90 Tablet 3 01/05/2024 Active Rosuvastatin Calcium 20 MG Oral Tablet (Crestor) Take 1 Tablet by mouth daily. 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 50 Tablet 3 01/05/2024 Active oxygen IN GASIndications:Chr onic respiratory failure with hypoxia (HCC),CHF (congestive heart failure), NYHA class I, chronic, diastolic (HCC),Shortness of breath Administer 2 L/min(Oxygen) into nostril continuous. Portable oxygen concentrator. Please remove his tanks Needs to keep the in home concentrator 1 Each 01/20/2024 Active Clopidogrel Bisulfate 75 MG Oral Tablet (Plavix)Indication s:History of CVA (cerebrovascular accident) Take 1 Tablet by mouth in the morning. 100 Tablet 3 02/22/2024 Active predniSONE 20 MG Oral Tablet (Deltasone) Take 3 tabs for 3 days, 2 tabs for 3 days, 1 tab for 3 days, 1/2 tab for 3 days 20 Tablet 03/06/2024 Active ProAir HFA 108 (90 Base) MCG/ACT Inhalation Aerosol SolutionIndication s:Restrictive lung disease Inhale 2 Puffs by mouth every 4 hours as needed for Wheezing. 18 g 1 03/15/2024 Active Spacer/Aero-Holdin g Chambers DeviceIndications: Restrictive lung disease Use with inhaler. 1 Each 03/15/2024 Active Finasteride 5 MG Oral Tablet (Proscar)Indicatio ns:BPH with obstruction/lower urinary tract symptoms TAKE ONE TABLET BY MOUTH EVERY MORNING 100 Tablet 2 03/21/2024 Active documented as of this encounter (statuses as of 03/24/2024) Active Problems Problem Noted Date Diagnosed Date Chronic respiratory failure with hypoxia 024 Last Assessment & Plan: He is only wearing oxygen at night reports that at times it is dropping in the 70s. He has known DEX intolerant to CPAP. Advised this is likely contributing to his hypoxia at night. He is willing to see Sleep Medicine again to further address. Referral placed. HTN, goal below 150/90 11/22/2023 Constipation 10/26/2023 Last Assessment & Plan: New issue. Reports he generally moves his bowels daily. No BM for a week. Some mild abdominal discomfort, he is able to pass gas. No nausea or vomiting. He took a dose of MiraLax and stool softener last night without results. He will go to [facility] for abdominal x-ray today to rule [...] Overview: Added automatically from request for surgery [id number] Last Assessment & Plan: S/p Watchman Current 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 07/09/2021 Last Assessment & Plan: He continue Seroquel and reports he is feeling good. Continue to monitor Moderate to severe mitral regurgitation 04/03/20 Lumbar degenerative disc disease 04/03/2021 Last Assessment & Plan: Planning spinal injections. Currently his Plavix is on hold for the procedure 10/27 He continues gabapentin and PRN Tylenol DEX (obstructive sleep apnea) 10/01/2020 Last Assessment [...] BMP Chest X-Ray Additional Comments: Euvolemic today. Continues to check weight daily BPH with obstruction/lower urinary tract symptom s 09/27/2017 Macular puckering 12/19/2008 Elevated prostate specific antigen (PSA) 009 ADVANCE DIRECTIVE INFORMATION 03/31/2007 Overview: No, Advance Directive brochure offered , patient declined. documented as of this encounter (statuses as of 03/24/2024) Resolved Problems Problem Noted Date Diagnosed Date [...] as of this encounter (statuses as of 03/24/2024) Immunizations Name Administration Dates Next Due COVID-19 mRNA, LNP-s, No Pre serve, 2-Dose Series (Moderna) 08/20/2020,07/17/2020 COVID-19 mRNA, LNP-s, No Pre serve, 2-Dose Series (Pfizer) 05/14/2021 COVID-19, LNP-s, No Preserve , Robbie-sucrose, Ages 12+ (Pfizer) 11/04/2021 COVID-19, MRNA-LNP, 23-24, P F, 30 MCG/0.3 mL, 12 YRS AND ABOVE, IM ([facility]) 11/29/2023,04/16/2023 Covid-19, Mrna, Lnp-s, Pf, B ivalent, [...] 02/19/2023,03/12/2022,03/13/2021 Seasonal Influenza, Trivalen t, Adjuvanted, 65+ YRS, PF, (Fluad) 03/22/2019 TDAP (age 10 and older)(Boostrix) 04/20/2018 [...] Date Recorded PHQ Adult Total Score 15 03/08/2024 Hunger Vital Sign Answer Date Recorded Within [...] Telephone Encounter - Tyree Estrada LPN - 03/24/2024 9:29 AM EDT Sent patient a MyChart and spoke to him on the phone to make aware. * Telephone Encounter - Júnior Coppola PA-C - 03/23/2024 4:45 PM EDT Agree with recommendations. Oxygen prescribed 2 liters/minute via [place] continuously per documentation Júnior Coppola PA-C Department of Cardiology * Telephone Encounter - Su Barrett LPN - 03/23/2024 1:12 PM EDT Pt states he is getting conflicting information. [facility] nurses are telling him he needs to wear O2 continuously/day and night. Says he was told by cardiology that he does not need to wear the O2 when he is feeling well. Per patient. Advised pt that if his O2 is <90-92% he needs to apply 2L of oxygen, regardless of how he is feeling. Reviewed oxygen orders with patient. Pt Called [facility] nurses this morning because his BP was 94/74. His O2 was 97% on room air at that time. Says he does not want to wear O2 continuously. He was outside all day yesterday and he felt "great." Pt has sleep study scheduled - asking if he needs to keep that appt. Advised pt to keep sleep studyappt. Had appt with pulm in December 2023, recommended 1 year follow up - asking if he should return sooner. Complained of a lump on his arm. He was seen for this and per pt told it was probably cancer. Has appt in [facility] end of month. documented in this encounter Plan of Treatment Upcoming Encounters Date Type Department Care Team (Late st Contact Info) Description 03/27/2024 5:30 PM EDT [facility] Visit [facility] [address] [place] [address] Myrtle Allen RN [facility] [address] 04/04/2024 8:00 AM EDT Office Visit Family Practice [address] [place] [address] [address] [place] [address] Benny Waite, [address] [place] [address] 04/13/2024 8:30 AM EDT Office Visit Orthopaedics, [facility] [address] [place] [address] Josue Espinosa MD [address] [place] [address] 04/25/2024 1:40 PM EST Telemedicine [facility] [place], [facility] [address] [facility] [place] [address] Yadira Omalley CRNP [address] [place] [address] Ines Castro, [facility] Contact Lens Technician [address] [place] [facility] [place] [address] 05/24/2024 9:15 AM EST Hospital Encounter OR [facility], Operating Room [facility] [address] [place] [phone] Amador Christian, DO [address] [place] [id number] 05/24/2024 9:15 AM EST - 05/24/2024 9:40 AM EST Surgery OR [facility], Operating Room [facility] [address] [place] [phone] Amador Christian, DO [address] [place] [address] INJECTION SPINE LUMBAR OR SACRAL 07/12/2024 8:00 AM EST Office Visit Cardiology, [facility] [address] [place] [address] Júnior Coppola PA-C [address] [place] [address] 08/14/2024 10:00 AM EST Office Visit Cardiology, [facility] [address] [place] [address] Casimiro Barraza MD [address] [place] [address] Scheduled Procedures Name Priority Associated Diagnoses Date/Ti me INJECTION SPINE LUMBAR OR SACRAL Spinal stenosis of lumbar region with neurogenic claudication 05/24/2024 9:15 AM EST Health Maintenance Due Date Last Done Comments COVID-19 Vaccine ( season) 2024 11/29/2023, 04/16/2023, 03/17/2022, Additional history exists Influenza Vaccine (FLU shot) (#1) 2024 02/19/2023, 03/12/2022, 03/13/2021, Additional history exists Adult Wellness Visit 12/20/2024 12/21/2023, 12/16/2022, 04/10/2022 Depression Monitoring 03/08/2025 03/08/2024 , 12/21/2023, 10/12/2023, Additional history exists Albumin/Creatinine Ratio 04/20/2026 04/20/2023 DTap/Tdap Vaccines (2 - Td or Tdap) 04/20/2028 04/20/2018 Pneumococcal Vaccine: 65+ Years Completed 05/02/2019, 04/20/2018 Zoster Vaccines Completed 12/13/2019, 08/2019, 04/18/2015 HPV (Gardasil) Vaccine Aged Out No lo nger eligible based on patient's age to complete this topic Hepatitis B Vaccine Aged Out No longe r eligible based on patient's age to complete this topic MENINGOCOCCAL (MENACTRA/MENVEO) Aged Out No longer eligible based on patient's age to complete this topic documented as of this encounter Medical Devices Implanted Type [place] Device Identifier Shelf Expiration Date Model / Serial / Lot Device Watchman Flx 35mm - [id number] Implanted:Qty: 1 on 02/05/2022 by Diamond Teran IV, MD at [facility] [employer] : INTRV CARD [id number] 10/20/2024 [id number] / / [id number] Cath Thermodilution 6fr - [id number] Implanted:Qty: 1 on 07/31/2022 by Franco Mcgregor MD at [facility] [employer] [id number] 04/30/2024 [id number] / / [id number] Mirtaclip G4 - [id number] Implanted:Qty: 1 on 11/16/2022 at [facility] [employer] 06/25/2023 [id number] / / [id number] Clip Delivery Sytem G4 Xtw - [id number] Implanted:Qty: 1 on 11/16/2022 at [facility] [employer] [id number] 08/10/2023 [id number] / / [id number] Clip Delivery Sytem G4 Xtw - [id number] Implanted:Qty: 1 on 11/16/2022 at [facility] [employer] [id number] 09/10/2023 [id number] / / [id number] documented as of this encounter Advance [...] and were consensually agreed upon. Care Teams Millwright Apprentice Relationship Specialty Start Date End Date Benny Waite DO [address] [place] [address] PCP - General Internal Medicine 11/25/23 documented as of this encounter
--- OUTSIDE RECORDS SUMMARY | 2024-03-26 09:47 | External Medical Summary | Summary of Care ---
Author Name Unknown Organization [facility] Address [address] [facility] [address] Phone [phone] Care Team Providers Care Winding Lathe Operator Name Role Phone Danica Waite DO Primary Care Provider [phone] Reason for Visit * Reason Comments Medication Refill Encounter Details Date Type Department Care Team (Late st Contact Info) Description 03/20/2024 Refill Family Practice [address] [place] [address] [place] [address] Danica Waite DO [address] [place] [address] BPH with obstruction/lower urinary tract symptoms Allergies Active Allergy Reactions Criticality Noted Date Comments Adhesive Tape 02/04/2017 Duloxetine High 07/13/2023 Other Reaction(s): confusion Levofloxacin 09/01/2019 documented as of this encounter (statuses as of 03/21/2024) Medications Medication Sig Dispensed Refills Start Date [...] 05/16/2023 Active Gabapentin 300 MG Oral Capsule (Neurontin)Indica [...] 11/15/2023 Active Furosemide 40 MG Oral Tablet (Lasix)Indication [...] Active Fluticasone Propionate 50 MCG/ACT Nasal Suspension (Flonase)Indicati ons:Allergies Administer 2 Sprays into nostril in the morning and 2 Sprays before bedtime. 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 50 Tablet 3 01/05/2024 Active oxygen IN GASIndications:Ch ronic respiratory failure with hypoxia (HCC),CHF (congestive heart failure), NYHA class I, chronic, diastolic (HCC),Shortness of breath Administer 2 L/min(Oxygen) into nostril continuous. Portable oxygen concentrator. Please remove his tanks Needs to keep the in home concentrator 1 Each 01/20/2024 Active Clopidogrel Bisulfate 75 MG Oral Tablet (Plavix)Indicatio ns:History of CVA (cerebrovascular accident) Take 1 Tablet by mouth in the morning. 100 Tablet 3 02/22/2024 Active predniSONE 20 MG Oral Tablet (Deltasone) Take 3 tabs for 3 days, 2 tabs for 3 days, 1 tab for 3 days, 1/2 tab for 3 days 20 Tablet 03/06/2024 Active ProAir HFA 108 (90 Base) MCG/ACT Inhalation Aerosol SolutionIndicatio ns:Restrictive lung disease Inhale 2 Puffs by mouth every 4 hours as needed for Wheezing. 18 g 1 03/15/2024 Active Spacer/Aero-Holdi ng Chambers DeviceIndications :Restrictive lung disease Use with inhaler. 1 Each 03/15/2024 Active Finasteride 5 MG Oral Tablet (Proscar)Indicati ons:BPH with obstruction/lower urinary tract symptoms TAKE ONE TABLET BY MOUTH EVERY MORNING 100 Tablet 2 03/21/2024 Active Finasteride 5 MG Oral Tablet (Proscar)Indicati ons:BPH with obstruction/lower urinary tract symptoms TAKE ONE TABLET BY MOUTH EVERY MORNING 100 Tablet 2 05/25/2023 4 Discontinu ed(Refill) documented as of this encounter (statuses as of 03/21/2024) Active Problems Problem Noted Date Diagnosed Date [...] night without results. 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 Continue to monitor Moderate to severe mitral regurgitation 04/03/20 21 [...] as of this encounter (statuses as of 03/21/2024) Resolved Problems Problem Noted Date Diagnosed Date [...] as of this encounter (statuses as of 03/21/2024) Immunizations Name Administration Dates Next Due COVID-19 mRNA, LNP-s, No Pre serve, 2-Dose Series (Moderna) 08/20/2020,07/17/2020 COVID-19 mRNA, LNP-s, No Pre serve, 2-Dose Series (Pfizer) 05/14/2021 COVID-19, LNP-s, No Preserve , Robbie-sucrose, Ages 12+ (Pfizer) 11/04/2021 COVID-19, MRNA-LNP, 23-24, P F, 30 MCG/0.3 mL, 12 YRS AND ABOVE, IM ([facility] 11/29/2023,04/16/2023 Covid-19, Mrna, Lnp-s, Pf, B ivalent, 30 Mcg, IM, 12 yrs and above (Yodlee) 03/17/2022 Pneumococcal Conjugate Vacc, 13 Valent (Prevnar) [...] encounter Miscellaneous Notes * Telephone Encounter - Danica Waite DO - 03/21/2024 3:20 PM EDTSigned Prescriptions: Disp Refills Finasteride 5 MG Oral Tablet (Proscar) 100 Ta*2 Sig: TAKE ONE TABLET BY MOUTH EVERY MORNINGAuthorizing Provider: DANICA WAITE * Telephone Encounter - Bhumika Roberson [facility] - 03/21/2024 2:36 PM EDTPending Prescriptions: Disp Refills Finasteride 5 MG Oral Tablet (Proscar) 100 Ta*2 Sig: TAKE ONE TABLET BY MOUTH EVERY MORNING * Telephone Encounter - Bhumika Roberson [facility] - 03/21/2024 2:35 PM EDT Last PSA was in 2013 and elevated. Please approve if appropriate. Thanks, Bhumika Roberson Clinical Pharmacist [facility] [phone] 03/21/2024, 2:35 PM * Telephone Encounter - Laine Ziegler [facility] - 03/21/2024 11:46 AM EDT Did you pend patient's preferred pharmacy and medication before forwarding?yes Pharmacy: [facility] Pending Prescriptions: Disp Refills Finasteride 5 MG Oral Tablet (Proscar) 100 Ta*2 Sig: TAKE ONE TABLET BY MOUTH EVERY MORNING Last Visit: 01/07/2024 (in office), Visit date not found (telemedicine) Next Visit: 04/04/2024 If no future appointments scheduled, and last appointment is greater than a year ago, please schedule patient for a follow-up appointment Last date the medication was ordered: 05/25/23 Is this request for a controlled substance?No Urine Drug Screen:No results found. However, due to the size of the patient record, not all encounters were searched. Please check Results Review for a complete set of results. Patient Phone Numbers Labs: Lab Results Component Value Date/Time CREAT 1.2 11/29/2023 02:07 PM CREAT 0.87 12/05/2021 12:00 AM CREAT 1.3 (H) 06/03/2020 08:39 AM POTASSIUM 4.8 11/29/2023 02:07 PM POTASSIUM 4.3 11/16/2022 03:52 PM POTASSIUM 4.1 12/05/2021 12:00 AM POTASSIUM 5.1 06/03/2020 08:39 AM TSH 2.63 11/19/2021 02:26 PM TSH 1.34 07/17/2019 12:51 PM LDL 89 11/17/2022 04:45 AM LDL 67 06/03/2020 08:39 AM LDL NOT APPLICABLE 06/03/2020 08:39 AM ALT 24 09/28/2023 09:33 AM ALT 57 (H) 06/03/2020 08:39 AM HGBA1C 5.6 07/02/2022 09:08 AM HGBA1C 5.7 02/26/2006 04:14 PM documented in this encounter Plan of Treatment Upcoming Encounters Date Type Department Care Team (Late st Contact Info) Description 03/23/2024 10:00 AM EDT [facility] Visit [facility] [place], [facility] [address] [facility] [place] [address] Myrtle Allen RN 132 [facility] [place] [address] 04/04/2024 8:00 AM EDT Office Visit Family Practice [address] [place] [address] [address] [place] [address] Danica Waite, [address] [place] [address] 04/13/2024 8:30 AM EDT Office Visit Orthopaedics, [place] [address] [place] [address] Josue Espinosa MD [address] [place] [address] 04/25/2024 1:40 PM EST [facility]icine [facility], [facility] [address] [facility] [place] [address] Yadira Omalley CRNP 132 [facility] [place] [address] Ines Castro, [facility] Winding Lathe Operator [address] [place] [facility] [place] [address] 05/24/2024 9:15 AM EST Hospital Encounter [facility], Operating Room [facility] [address] [place] [phone] Amador Christian, DO [address] [place] [phone] 05/24/2024 9:15 AM EST - 05/24/2024 9:40 AM EST Surgery OR [facility], Operating Room [facility] [address] [place] [phone] Amador Christian, DO [address] [place] [phone] INJECTION SPINE LUMBAR OR SACRAL 07/12/2024 8:00 AM EST Office Visit Cardiology, [facility] [address] [place] [address] Júnior Coppola PAClifC [address] [place] [address] 08/14/2024 10:00 AM EST Office Visit Cardiology, [facility] [address] [place] [address] Casimiro Barraza MD [address] [place] [address] Scheduled Procedures Name Priority Associated Diagnoses Date/Ti [...] encounter Medical Devices Implanted Type Area Supervisor [employer] Device Identifier Shelf Expiration Date Model / Serial / Lot Device Watchman Flx 35mm - [id number] Implanted:Qty: 1 on 02/05/2022 by Diamond Teran IV, MD at [facility] [employer] : INTRV CARD [id number] 10/20/2024 [id number] / / [id number] Cath Thermodilution 6fr - [id number] Implanted:Qty: 1 on 07/31/2022 by Franco Mcgregor MD at [facility] [employer] [id number] 04/30/2024 [id number] / / [id number] Mirtaclip G4 - [id number] Implanted:Qty: 1 on 11/16/2022 at [facility] [employer] 06/25/2023 [id number] / / [id number] Clip Delivery Sytem G4 Xtw - [id number] Implanted:Qty: 1 on 11/16/2022 at [facility] [employer] [id number] 08/10/2023 [id number] / / [id number] Clip Delivery Sytem G4 Xtw - [id number] Implanted:Qty: 1 on 11/16/2022 at [facility] [employer] [id number] 09/10/2023 [id number] / / [id number] documented as of this encounter Visit Diagnoses Diagnosis BPH with obstruction/lower urinary tract symptoms Hypertrophy of prostate with urinary obstruction and other lower urinary tract symptoms (LUTS) Spinal stenosis of lumbar region with neurogenic claudication Spinal stenosis, lumbar region, with neurogenic claudication documented in this encounter Advance Directives * [...] and were consensually agreed upon. Care Teams Winding Lathe Operator Relationship Specialty Start Date End Date Danica Waite DO [address] [place] [address] PCP - General Internal Medicine 11/25/23 documented as of this encounter
--- OUTSIDE RECORDS SUMMARY | 2024-03-26 09:47 | External Medical Summary | Summary of Care ---
Author Name Unknown Organization [facility] Address [address] [facility] [place] [address] Phone [phone] Care Team Providers Care Information Receptionist Name Role Phone Benny Waite DO Primary Care Provider [phone] Reason for Visit * Reason Onset Date Comments Information 03/23/2024 Encounter Details Date Type Department Care Team (Late st Contact Info) Description 03/23/2024 Telephone Cardiology, [facility] [address] [place] [id number] Júnior Coppola PA-C [address] [facility] [place] [address] Information Allergies Active Allergy Reactions [...] 137 MCG/SPRAY Nasal SolutionIndication s:Allergies Administer 1 [place] into each nostril 2 times a day [...] night without results. 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 * Telephone Encounter - Júnior Coppola PA-C - 03/23/2024 4:45 PM EDT Agree with recommendations. Oxygen prescribed 2 liters/minute via NC continuously per documentation Júnior Coppola PA-C Department of Cardiology * Telephone Encounter - Su Barrett LPN - 03/23/2024 1:12 PM EDT Pt states he is getting conflicting information. [facility] nurses are telling him he needs to wear O2 continuously/day and night. Says he was told by cardiology that he does not need to wear the O2 when he is feeling well. Per patient. Advised pt that if his O2 is <90-92% he needs to apply 2L of oxygen, regardless of how he is feeling. Reviewed oxygen orders with patient. Pt Called [facility] nurses this morning because his BP [...] it was probably cancer. [facility] [place] [place] [facility] [place] end of month. documented in this encounter Plan of Treatment Upcoming Encounters Date Type Department Care Team (Late st Contact Info) Description 03/27/2024 5:30 PM EDT [facility] [address] [facility] [place] [address] Myrtle Allen RN 132 [place] [address] 04/04/2024 8:00 AM EDT Office Visit Family Practice [address] [place] [address] [address] [place] [address] Benny Waite, [address] [place] [address] 04/13/2024 8:30 AM EDT Office Visit Orthopaedics, [place] [address] [place] [address] Josue Espinosa MD [address] [place] [address] 04/25/2024 1:40 PM EST Telemedicine [facility] [address] [facility] [place] [address] Yadira Omalley CRNP [address] [place] [address] Ines Castro, Community Health Digital Media Specialist [address] [place] [facility] [place] [address] 05/24/2024 9:15 AM EST Hospital Encounter [facility], Operating Room [facility] [address] [place] [phone] Amador Christian, DO [address] [place] [phone] 05/24/2024 9:15 AM EST - 05/24/2024 9:40 AM EST Surgery OR [facility], Operating Room [facility] [address] [place] [phone] Amador Christian, DO [address] [place] [phone] INJECTION SPINE LUMBAR OR SACRAL 07/12/2024 8:00 AM EST Office Visit Cardiology, [facility] [address] [place] [address] Júnior Coppola PA-C [address] [place] [address] 08/14/2024 10:00 AM EST Office Visit Cardiology, [facility] [address] [place] [address] Casimiro Barraza MD [address] [place] [address] Scheduled Procedures Name Priority Associated Diagnoses Date/Ti [...] this encounter Medical Devices Implanted Type Area Credit Collections Manager Device Identifier Shelf Expiration Date Model / Serial / Lot Device Watchman Flx 35mm - [id number] Implanted:Qty: 1 on 02/05/2022 by Diamond Teran IV, MD at [facility] [employer] : INTRV CARD [id number] 10/20/2024 [id number] / / [id number] Cath Thermodilution 6fr - [id number] Implanted:Qty: 1 on 07/31/2022 by Franco Mcgregor MD at [facility] [employer] [id number] 04/30/2024 [id number] / / [id number] Mirtaclip G4 - [id number] Implanted:Qty: 1 on 11/16/[address] [employer] 06/25/2023 [id number] / / [id number] Clip Delivery Sytem G4 Xtw - [id number] Implanted:Qty: 1 on 11/16/[address] [facility] [employer] [id number] 08/10/2023 [id number] / / [id number] Clip Delivery Sytem G4 Xtw - [id number] Implanted:Qty: 1 on 11/16/[address] [facility] [employer] [id number] 09/10/2023 [id number] / / [id number] documented as of this encounter Advance [...] and were consensually agreed upon. Care Teams Information Receptionist Relationship Specialty Start Date End Date Benny Waite DO [address] [place] [address] PCP - General Internal Medicine 11/25/23 documented as of this encounter
--- OUTSIDE RECORDS SUMMARY | 2024-03-26 09:47 | External Medical Summary | Summary of Care ---
Author Name Unknown Organization [facility] Address [address] [place] [address] Phone [phone] Care Team Providers Care Chief Of Service Name Role Phone Benny Waite DO Primary Care Provider [phone] Reason for Visit * Reason Onset Date Comments [facility]: Maintenance 03/23/2024 Encounter Details Date Type Department Care Team (Late st Contact Info) Description 03/23/2024 Telephone [facility], [facility] [address] [place] [id number] Kat Denny, RN [address] [place] [address] [facility]: Maintenance Allergies Active Allergy Reactions Criticality Noted Date Comments Adhesive Tape 02/04/2017 Duloxetine High 07/13/2023 Other Reaction(s): confusion Levofloxacin 09/01/2019 documented as of this encounter (statuses as of 03/23/2024) Medications Medication Sig Dispensed Refills Start Date [...] 137 MCG/SPRAY Nasal SolutionIndication s:Allergies Administer 1 [place] into each nostril 2 times a day [...] as of this encounter (statuses as of 03/23/2024) Active Problems Problem Noted Date Diagnosed Date [...] night without results. He will go to [facility] for abdominal x-ray today to rule [...] MVR (mitral valve repair) 11/16/2022 Atherosclerosis of [place] co 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 pectoris 08/11/2022 Severe tricuspid regurgitation 08/11/2022 Gout, arthropathy 07/20/2022 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 02/05/2022 Permanent atrial fibrillation 12/22/2021 Overview: Added automatically from request for surgery [id number] Last Assessment & Plan: S/p Watchman Current [...] as of this encounter (statuses as of 03/23/2024) Resolved Problems Problem Noted Date Diagnosed Date [...] as of this encounter (statuses as of 03/23/2024) Immunizations Name Administration Dates Next Due COVID-19 mRNA, LNP-s, No Pre serve, 2-Dose Series ([facility] 08/20/2020,07/17/2020 COVID-19 mRNA, LNP-s, No Pre serve, 2-Dose Series (Pfizer) 05/14/2021 COVID-19, LNP-s, No Preserve , Robbie-sucrose, Ages 12+ (Pfizer) 11/04/2021 COVID-19, MRNA-LNP, 23-24, P F, 30 MCG/0.3 mL, 12 YRS AND ABOVE, IM ([facility]) 11/29/2023,04/16/2023 Covid-19, Mrna, Lnp-s, Pf, [...] encounter Miscellaneous Notes * Telephone Encounter - Kat Denny RN - 03/23/2024 12:57 PM EDT Images from the original note were not included. PC from patient states his BP "took a dip today", his weight is low,and his oxygen went up without wearing his O2 Early this am --pt stated his O2 was down to 86% and went up on its own. This is confusing to him Patient states he has not worn his oxygen since 5am this morning I advised patient to put his oxygen on. [place] an odd noise over the phone. Patient was placing his inogen POC on not his continuous oxygen On the inogen O2sat only 86-88%, HR [address] O2 on O2sat 91% 2 LPM NC, HR 71, BP 110/71 Patient is aware per notes in chart providers want him to wear oxygen to maintain O2sat greater than 90% Explained to patient that the inogen (POC) does not provide continuous oxygen and he should be primarily using his continuous O2 given his history of respiratory failure with hypoxia He states his oxygen concentrator is in his bedroom. He uses his inogen when outside or watching TVin the living room He does not want extention tubing for his concentrator he is afraid his dog will puncture the tubing Patient verbalizes frustration over multiple doctors appts and copays States he is sick of doing all this,paying co-pays and getting bills he can not afford Advised he can speak with his insurance company If oxygen is dropping lower than normal stressed again to wear his cont oxygen and discuss with RNCM about possible pulm consult. and ACP, . ACP noted in the chart Advised also for him to write down his concerns as these can also be addressed at next HV Patient reassured repeat vitals taken are stable with him wearing continuous O2 Advised him to assure he weighs properly in the am. Reviewed this in detail with patient Patient states he feels fine.asymtomatic Weights stable. Pt denies edema. He is on lasix Concerns for possible AMC not calibrating correctly Assured patient he can also call cardiology if he is looking for specialty advice + AMC documented in this encounter Plan of Treatment Upcoming Encounters Date Type Department Care Team (Late st Contact Info) Description 03/27/2024 5:30 PM EDT [facility] Visit [facility] 132 [place] [address] Myrtle Allen RN [address] [place] [address] 04/04/2024 8:00 AM EDT Office Visit Family Practice [address] [facility] [place] [address] [place] [address] Benny Waite, [address] [place] [address] 04/13/2024 8:30 AM EDT Office Visit Orthopaedics, [place] [address] [place] [address] Josue Espinosa MD [address] [place] [address] 04/25/2024 1:40 PM EST Telemedicine [facility] [address] [place] [address] Yadira Omalley CRNP [address] [place] [address] Ines Castro, Community Health Pellet Press Operator [address] [place] [facility] [facility] [place] [address] 05/24/2024 9:15 AM EST Hospital Encounter OR [facility], Operating Room [facility] [address] [place] [phone] Amador Christian, DO [address] [place] [phone] 05/24/2024 9:15 AM EST - 05/24/2024 9:40 AM EST Surgery OR [facility], Operating Room [facility] [address] [place] [phone] Amador Christian, DO [address] [place] [address] INJECTION SPINE LUMBAR OR SACRAL 07/12/2024 8:00 AM EST Office Visit Cardiology, [facility] [address] [place] [address] Júnior Coppola PAClifC [address] [place] [address] 08/14/2024 10:00 AM EST Office Visit Cardiology, [facility] [address] [place] [address] Casimiro Barraza MD [address] [place] [address] Scheduled Procedures Name Priority Associated Diagnoses Date/Ti [...] this encounter Medical Devices Implanted Type Area Rehab Director Occupational Therapist Device Identifier Shelf Expiration Date Model / Serial / Lot Device Watchman Flx 35mm - [id number] Implanted:Qty: 1 on 02/05/2022 by Diamond Teran IV, MD at [facility] [facility] [email or web address] : INTRV CARD [id number] 10/20/2024 [id number] 50 / / [id number] Cath Thermodilution 6fr - [id number] Implanted:Qty: 1 on 07/31/2022 by Franco Mcgregor MD at [facility] [facility] [employer] [id number] 04/30/2024 [id number] / / [id number] Mirtaclip G4 - [id number] Implanted:Qty: 1 on 11/16/2022 at [facility] [employer] 06/25/2023 [id number] / / [id number] Clip Delivery Sytem G4 Xtw - [id number] Implanted:Qty: 1 on 11/16/2022 at [facility] [place] [employer] [id number] 08/10/2023 [id number] / / [id number] Clip Delivery Sytem G4 Xtw - [id number] Implanted:Qty: 1 on 11/16/2022 at [facility] [place] [employer] [id number] 09/10/2023 [id number] / / [id number] documented as of this encounter Advance [...] and were consensually agreed upon. Care Teams Chief Of Service Relationship Specialty Start Date End Date Benny Waite DO [address] [place] [address] PCP - General Internal Medicine 11/25/23 documented as of this encounter
--- OUTSIDE RECORDS SUMMARY | 2024-03-26 09:47 | External Medical Summary | Summary of Care ---
Author Name Unknown Organization [facility] Address [address] [facility] [place] [address] Phone [phone] Care Team Providers Care Wagon Driller Name Role Phone Benny Waite DO Primary Care Provider Reason for Visit * Reason Onset Date Comments [facility]: Maintenance 03/21/2024 Encounter Details Date Type Department Care Team (Late st Contact Info) Description 03/21/2024 9:30 AM EDT Scheduled Telephone [facility], [facility] [address] [place] [address] Coordinator, [facility] 132 [facility] [place] [address] Allergies Active Allergy Reactions Criticality Noted Date [...] EVERY MORNING 100 Tablet 2 05/25/2023 Active Additional Information Patient taking differently: 5 mg Oral DAILY(1900), Reported on 03/01/2024 Gabapentin 300 MG Oral Capsule (Neurontin)Indicat ions:Acute [...] 137 MCG/SPRAY Nasal SolutionIndication s:Allergies Administer 1 [place] into each nostril 2 times a day [...] Use with inhaler. 1 Each 03/15/2024 Active documented as of this encounter (statuses [...] night without results. He will go to [facility] for abdominal x-ray today to [...] MVR (mitral valve repair) 11/16/2022 Atherosclerosis of [place] co 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 pectoris 08/11/2022 Severe tricuspid regurgitation 08/11/2022 Gout, arthropathy 07/20/2022 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 02/05/2022 Permanent atrial fibrillation 12/22/2021 Overview: Added automatically from request for surgery [id number] Last Assessment & Plan: S/p Watchman [facility] Device(s): Connected Scale Self - [...] MCG/0.3 mL, 12 YRS AND ABOVE, IM ([facility]) 11/29/2023,04/16/2023 Covid-19, Mrna, Lnp-s, Pf, B ivalent, 30 Mcg, IM, 12 yrs and above ([employer]) 03/17/2022 Pneumococcal Conjugate Vacc, 13 Valent (Prevnar) [...] Miscellaneous Notes * Telephone Encounter - Antonietta Carter RN - 03/21/2024 11:34 AM EDT Pt scheduled for call re: F/u xray results - pt made aware of same by JUAN Padilla yesterday. No call needed this date. documented in this encounter Plan of Treatment Upcoming Encounters Date Type Department Care Team (Late st Contact Info) Description 03/23/2024 10:00 AM EDT Home Visit [facility] [address] [place] [address] Myrtle Allen RN [address] [place] [address] 04/04/2024 8:00 AM EDT Office Visit Family Practice [address] [place] [address] 293 [place] [address] Benny Waite, DO 293 [place] [address] 04/13/2024 8:30 AM EDT Office Visit Orthopaedics, [place] [address] [place] [address] Josue Espinosa MD [address] [place] [address] 04/25/2024 1:40 PM EST [facility]medicine [facility], [facility] [address] [place] [address] Yadira Omalley CRNP [address] [place] [address] Ines Castor, Community Health Senior Research Engineer [address] [place] [address] 05/24/2024 9:15 AM EST Hospital Encounter OR [facility], Operating Room [facility] [address] [place] [phone] Amador Christian, [address] [place] [phone] 05/24/2024 9:15 AM EST - 05/24/2024 9:40 AM EST Surgery OR [facility], Operating Room [facility] [address] [place] [phone] Amador Christian, DO [address] [place] [phone] INJECTION SPINE LUMBAR OR SACRAL 07/12/2024 8:00 AM EST Office Visit Cardiology, [facility] [address] [place] [address] Júnior Coppola PAClifC [address] [place] [address] 08/14/2024 10:00 AM EST Office Visit Cardiology, [facility] [address] [place] [address] Casimiro Barraza MD [address] [place] [address] Scheduled Procedures Name Priority Associated Diagnoses Date/Ti [...] this encounter Medical Devices Implanted Type Area Code Enforcement Inspector Device Identifier Shelf Expiration Date Model / Serial / Lot Device Watchman Flx 35mm - [id number] Implanted:Qty: 1 on 02/05/2022 by Diamond Teran IV, MD [place] [facility] [employer] : INTRV CARD [id number] 10/20/2024 [id number] / / [id number] Cath Thermodilution 6fr - [id number] Implanted:Qty: 1 on 07/31/2022 by Franco Mcgregor MD at [facility] [employer] [id number] 04/30/2024 [id number] / / [id number] Mirtaclip G4 - [id number] Implanted:Qty: 1 on 11/16/2022 at [facility] [employer] 06/25/2023 [id number] / / [id number] Clip Delivery Sytem G4 Xtw - [id number] Implanted:Qty: 1 on 11/16/2022 at [facility] [employer] [id number] 08/10/2023 [id number] / / [id number] Clip Delivery Sytem G4 Xtw - [id number] Implanted:Qty: 1 on 11/16/2022 at [facility] [employer] [id number] 09/10/2023 [id number] / / [id number] documented as of this encounter Advance [...] and were consensually agreed upon. Care Teams Wagon Driller Relationship Specialty Start Date End Date Benny Waite DO [address] [place] [facility] [place] [address] PCP - General Internal Medicine 11/25/23 documented as of this encounter
--- OUTSIDE RECORDS SUMMARY | 2024-03-26 09:47 | External Medical Summary | Summary of Care ---
Author Name Unknown Organization [facility] Address [address] [facility] [place] [address] Phone [phone] Care Team Providers Care Ibm Mainframe Developer Name Role Phone Benny Waite DO Primary Care Provider [phone] Reason for Visit * Reason Onset Date Comments Advice 03/16/2024 Encounter Details Date Type Department Care Team (Late st Contact Info) Description 03/16/2024 Telephone Cardiology, [facility] [address] [place] [id number] Júnior Coppola PA-C [address] [place] [address] Advice Allergies Active Allergy Reactions Criticality Noted Date Comments Adhesive Tape 02/04/2017 Duloxetine High 07/13/2023 Other Reaction(s): confusion Levofloxacin 09/01/2019 documented as of this encounter (statuses as of 03/20/2024) Medications Medication Sig Dispensed Refills Start Date [...] 137 MCG/SPRAY Nasal SolutionIndication s:Allergies Administer 1 [place] into each nostril 2 times a day [...] as of this encounter (statuses as of 03/20/2024) Active Problems Problem Noted Date Diagnosed Date [...] Overview: Added automatically from request for surgery [id number] Last Assessment & Plan: S/p Watchman Current 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 07/09/2021 Last Assessment & Plan: He continue Seroquel and reports he is feeling good. Continue to monitor Moderate to severe mitral regurgitation 10/21/20 21 Lumbar degenerative disc disease 04/03/2021 Last [...] in the Comments) Remote Patient Monitoring Vendor: [facility] Device(s): Connected Scale Self - Management Plan [...] as of this encounter (statuses as of 03/20/2024) Resolved Problems Problem Noted Date Diagnosed Date [...] as of this encounter (statuses as of 03/20/2024) Immunizations Name Administration Dates Next Due COVID-19 mRNA, LNP-s, No Pre serve, 2-Dose Series (Moderna) 08/20/2020,07/17/2020 COVID-19 mRNA, LNP-s, No Pre serve, 2-Dose Series (Pfizer) 05/14/2021 COVID-19, LNP-s, No Preserve , Robbie-sucrose, Ages 12+ (Pfizer) 11/04/2021 COVID-19, MRNA-LNP, 23-24, P F, 30 MCG/0.3 mL, 12 YRS AND ABOVE, IM ([facility] 11/29/2023,04/16/2023 Covid-19, Mrna, Lnp-s, Pf, B ivalent, 30 Mcg, IM, 12 yrs and above ([employer]) 03/17/2022 Pneumococcal Conjugate Vacc, 13 Valent (Prevnar) [...] encounter Miscellaneous Notes * Telephone Encounter - Júnior Coppola PA-C - 03/17/2024 5:38 PM EDT Patient called personally. ? Accuracy of SP02 readings (cool extremities, atrial fibrillation) Feeling OK overall. Recent pneumonia treated circa 2-3 weeks ago No fevers or chills. Congestion improves transiently after using the nasal spray from the hospital. Using oxygen 24/ for about the last month Dyspnea improves when outside and if he takes "that heavy cough pill." Oxygen reading are OK when up and moving around, low in the mornings Awakes with headaches. Thinking about maybe going back to the BiPAP (has not used for a couple of years) No perceived benefit from the recent titration of diuretic. No chest pain, palpitations, PND, or edema. General measures advised. Add nebulizer treatments Send update next week ER with emergencies. Júnior Coppola PA-C Department of Cardiology * Telephone Encounter - Tyree Estrada LPN - 03/17/2024 1:35 PM EDT Patient returned call. Advised to put pulse ox when on while on phone and take a couple of deep breaths and sit and monitor. 93% reading without O2. Advised patient is concerned to repeat this process when checking. If O2 drops to put on oxygen and breath in and let settle and look at readings. If it doesn't come back into the 90's to go ED. Patient verbalized understanding. * Telephone Encounter - Tyree Estrada LPN - 03/17/2024 1:15 PM EDT I don't have access to a computer and cannot call Nikolas back at this time. If his oxygen saturation is truly in the 70s, he needs to be evaluated in the er. I Suspect the readings are not accurate. Is there anyone in the clinic that can address? If not, i will call him from home kingsley Coppola PA-C Called patient and left a message to make aware as patient did not answer. Awaiting call back. * Telephone Encounter - Tyree Estrada LPN - 03/17/2024 9:50 AM EDT Patient called in to check on prior message. Stated he was on O2 last night from 6 pm to 8 am and highest reading was 85%. Please address. * Telephone Encounter - Su Barrett LPN - 03/16/2024 9:50 AM EDT Pt states his spo2 is very low in the morning. SpO2 40-45 on room air, after he takes off supplemental O2. C/o headache when O2 is low. Sometimes his levels increase throughout the morning, but states that sometimes they remain low. He stayed on supplemental O2 @2L all day yesterday and states his SPO2 was in 70's SPO2 on room air, while one phone at this time: 94% At home nurse, Myrtle, checking SpO2 at visits. ProAir inhaler prescribed yesterday, has not picked this up yet. Prescribed by [facility]. Also routing to [facility] nurse Agatha Reddy LPN - see separate encounter 03/16/24 * Telephone Encounter - Yadira Martinez OSA - 03/16/2024 9:48 AM EDT Person calling: Nikolas Relationship to patient: self Phone/Fax to return call: [phone] Reason for call(brief): requesting to speak to nurse Pharmacy: na Provider Name: Júnior Coppola Detailed message to office: Pt requesting to speak to nurse. Wouldn't give me any info. documented in this encounter Plan of Treatment Upcoming Encounters Date Type Department Care Team (Late st Contact Info) Description 03/21/2024 9:30 AM EDT Scheduled Tele[facility] [address] [address] Coordinator, [facility] [address] [place] [address] 03/23/2024 10:00 AM EDT [facility] [address] [address] Mytrle Allen, RN [address] [place] [address] 04/04/2024 8:00 AM EDT Office Visit Family Practice [address], [place] [address] [place] [address] Benny Waite, [address] [place] [address] 04/25/2024 1:40 PM EST Telemedicine [facility] [address] [place] [address] Yadira Omalley CRNP [address] [place] [address] Ines Castro, [facility] [address] [place] [address] 05/24/2024 9:15 AM EST Hospital Encounter [facility], Operating Room [facility] [address] [place] [phone] Amador Christian, [address] [place] [address] 05/24/2024 9:15 AM EST - 05/24/2024 9:40 AM EST Surgery OR [facility], Operating Room [facility] [address] [place] [phone] Amador Christian, DO [address] [place] [address] INJECTION SPINE LUMBAR OR SACRAL 07/12/2024 8:00 AM EST Office Visit Cardiology, [facility] [address] [place] [address] Júnior Coppola PAJaleesa [address] [place] [address] 08/14/2024 10:00 AM EST Office Visit Cardiology, [facility] [address] [place] [address] Casimiro Barraza MD [address] [place] [address] Scheduled Procedures Name Priority Associated Diagnoses Date/Ti [...] this encounter Medical Devices Implanted Type Area Mincemeat Maker Device Identifier Shelf Expiration Date Model / Serial / Lot Device Watchman Flx 35mm - [id number] Implanted:Qty: 1 on 02/05/2022 by Diamond Teran IV, [place] [facility] [employer] : INTRV CARD [id number] 10/20/2024 [id number] 50 / / [id number] Cath Thermodilution 6fr - [id number] Implanted:Qty: 1 on 07/31/2022 by Franco Mcgregor MD at [facility] [employer] [id number] 04/30/2024 [id number] / / [id number] Mirtaclip G4 - [id number] Implanted:Qty: 1 on 11/16/2022 at [facility] [employer] 06/25/2023 [id number] / / [id number] Clip Delivery Sytem G4 Xtw - [id number] Implanted:Qty: 1 on 11/16/2022 at [facility] [employer] [id number] 08/10/2023 [id number] TW / / [id number] Clip Delivery Sytem G4 Xtw - [id number] Implanted:Qty: 1 on 11/16/2022 at [facility] [employer] [id number] 09/10/2023 [id number] / / [id number] documented as of this encounter Advance [...] and were consensually agreed upon. Care Teams Ibm Mainframe Developer Relationship Specialty Start Date End Date Benny Waite DO [address] [place] [place] [address] PCP - General Internal Medicine 11/25/23 documented as of this encounter
--- OUTSIDE RECORDS SUMMARY | 2024-03-26 09:48 | External Medical Summary | Summary of Care ---
Author Name Unknown Organization [facility] Address [address] [facility] [place] [address] Phone [phone] Care Team Providers Care Fagoter Name Role Phone Benny Waite DO Primary Care Provider [phone] Reason for Visit * Reason Onset Date Comments [facility]: Maintenance 03/18/2024 Encounter Details Date Type Department Care Team (Late st Contact Info) Description 03/18/2024 4:15 PM EDT Scheduled Telephone [facility], [facility] [address] [facility] [place] [address] [facility], Nurse [facility] [address] [facility] [place] [address] Allergies Active Allergy Reactions Criticality Noted Date Comments Adhesive Tape 02/04/2017 Duloxetine High 07/13/2023 Other Reaction(s): confusion Levofloxacin 09/01/2019 documented as of this encounter (statuses as of 03/18/2024) Medications Medication Sig Dispensed Refills Start Date [...] 137 MCG/SPRAY Nasal SolutionIndication s:Allergies Administer 1 [place] into each nostril 2 times a day [...] as of this encounter (statuses as of 03/18/2024) Active Problems Problem Noted Date Diagnosed Date [...] night without results. He will go to [facility] for abdominal x-ray today to [...] MVR (mitral valve repair) 11/16/2022 Atherosclerosis of [place] co 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 pectoris 08/11/2022 Severe tricuspid regurgitation 08/11/2022 Gout, arthropathy 07/20/2022 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 02/05/2022 Permanent atrial fibrillation 12/22/2021 Overview: Added automatically from request for surgery [id number] Last Assessment & Plan: S/p Watchman Current [...] in the Comments) Remote Patient Monitoring Vendor: [facility] [place] [place] Device(s): Connected Scale Self - Management Plan [...] as of this encounter (statuses as of 03/18/2024) Resolved Problems Problem Noted Date Diagnosed Date [...] as of this encounter (statuses as of 03/18/2024) Immunizations Name Administration Dates Next Due COVID-19 mRNA, LNP-s, No Pre serve, 2-Dose Series (Moderna) 08/20/2020,07/17/2020 COVID-19 mRNA, LNP-s, No Pre serve, 2-Dose Series (Pfizer) 05/14/2021 COVID-19, LNP-s, No Preserve , Robbie-sucrose, Ages 12+ (Pfizer) 11/04/2021 COVID-19, MRNA-LNP, 23-24, P F, 30 MCG/0.3 mL, 12 YRS AND ABOVE, IM ([facility]) 11/29/2023,04/16/2023 Covid-19, Mrna, Lnp-s, Pf, B ivalent, 30 Mcg, IM, 12 yrs and above ([employer]) 03/17/2022 Pneumococcal Conjugate Vacc, 13 Valent [...] Telephone Encounter - Annmarie Shaikh LPN - 03/18/2024 10:15 AM EDT Images from the original note were not included. [facility] Remote Patient Monitoring Able to contact patient: Trigger type: Abnormal reading(s): AMC (Advanced Monitored Caregiving): Pulse Oximeter: Oxygen saturation per oximeter: 85 measured while on room air Pulse rate per oximeter: no pulse rate transmitted Trigger priority per AMC: high Baseline oxygen requirements: 2 LPM. Diagnosis related to oxygen use: CHF Increased oxygen needs in past 24 hours: No Symptom review: asymptomatic Diet Reviewed: N/A Fluid Intake Reviewed: N/A Self-Management Plan Reviewed: Risk assignment recommendation: Moderate risk findings (check [...] 90 WITH symptoms Additional risk selection justification: [facility] [place] trigger for SPO2 of 85% Call to pt states he doesn't have his O2 on Requested pt put O2 on and recheck readings Pt reporting SPO2 of 95% on 2 L O2, [facility] [place] is showing new reading of 87% Pt denies increased SOB, -CP, -cough, -lightheadedness, -dizziness. Pt using inhalers as directed Pt has radiology appt at [facility] today he is in process of getting ready for. Will continue to monitor Overall risk and identified plan: Instructed to call [facility] at [phone] with any new or worsening symptoms documented in this encounter Plan of Treatment Upcoming Encounters Date Type Department Care Team (Late st Contact Info) Description 03/18/2024 11:55 AM EDT Imaging Radiology [address] 132 [facility] [place] [address] 03/18/2024 1:00 PM EDT Imaging Radiology [address] 132 [facility] [place] [address] 03/23/2024 10:00 AM EDT [facility], [facility] [place] [address] Myrtle Allen, RN [facility] [place] [place] [address] 04/04/2024 8:00 AM EDT Office Visit Family Practice [address] [place] [address] 293 [facility] [place] [address] Benny Waite, DO 293 [place] [address] 04/25/2024 1:40 PM EST Telemedicine [facility], [facility] [address] [place] [address] Yadira Omalley CRNP [address] [facility] [place] [address] Ines Castro, [facility] [employer] [address] [place] [address] 05/24/2024 9:15 AM EST Hospital Encounter [facility], Operating Room [facility] [address] [place] [address] Amador Christian, DO [address] [place] [address] 05/24/2024 9:15 AM EST - 05/24/2024 9:40 AM EST Surgery OR [facility], Operating Room [facility] [address] [place] [address] Amador Christian, DO [address] [place] [address] INJECTION SPINE LUMBAR OR SACRAL 07/12/2024 8:00 AM EST Office Visit Cardiology, [facility] [address] [place] [address] Júnior Coppola PA-C [address] [place] [address] 08/14/2024 10:00 AM EST Office Visit Cardiology, [facility] [address] [place] [address] Casimiro Barraza MD [address] [place] [address] Scheduled Procedures Name Priority Associated Diagnoses Date/Ti [...] encounter Medical Devices Implanted Type Area General Warehouse Associate Device Identifier Shelf Expiration Date Model / Serial / Lot Device Watchman Flx 35mm - [id number] Implanted:Qty: 1 on 02/05/2022 by Diamond Teran IV, [place] [facility] [employer] : INTRV CARD [id number] 10/20/2024 [id number] 50 / / [id number] Cath Thermodilution 6fr - [id number] Implanted:Qty: 1 on 07/31/2022 by Franco Mcgregor MD at [facility] [employer] [id number] 04/30/2024 [id number] / / [id number] Mirtaclip G4 - [id number] Implanted:Qty: 1 on 11/16/2022 at [facility] [employer] 06/25/2023 [id number] / / [id number] Clip Delivery Sytem G4 Xtw - [id number] Implanted:Qty: 1 on 11/16/2022 at [facility] [employer] [id number] 08/10/2023 [id number] TW / / [id number] Clip Delivery Sytem G4 Xtw - [id number] Implanted:Qty: 1 on 11/16/2022 at [facility] [employer] [id number] 09/10/2023 [id number] TW / / [id number] documented as of this encounter Advance [...] and were consensually agreed upon. Care Teams Fagoter Relationship Specialty Start Date End Date Benny Waite DO [address] [place] [address] PCP - General Internal Medicine 11/25/23 documented as of this encounter
--- OUTSIDE RECORDS SUMMARY | 2024-03-26 09:48 | External Medical Summary | Summary of Care ---
Author Name Unknown Organization [facility] Address [address] [facility] [place] [address] Phone [phone] Care Team Providers Care Graduate Studies Dean Name Role Phone Benny Waite DO Primary Care Provider [phone] Reason for Visit * Reason Onset Date Comments [facility]: Maintenance 03/16/2024 Encounter Details Date Type Department Care Team (Late st Contact Info) Description 03/16/2024 12:00 PM EDT Scheduled Telephone [facility], [facility] [address] [place] [address] Coordinator, [facility] 132 [facility] [place] [address] Allergies Active Allergy Reactions Criticality Noted Date Comments Adhesive Tape 02/04/2017 Duloxetine High 07/13/2023 Other Reaction(s): confusion Levofloxacin 09/01/2019 documented as of this encounter (statuses as of 03/16/2024) Medications Medication Sig Dispensed Refills Start Date [...] 137 MCG/SPRAY Nasal SolutionIndication s:Allergies Administer 1 [place] into each nostril 2 times a day [...] as of this encounter (statuses as of 03/16/2024) Active Problems Problem Noted Date Diagnosed Date [...] MVR (mitral valve repair) 11/16/2022 Atherosclerosis of [place] co 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 pectoris 08/11/2022 Severe tricuspid regurgitation 08/11/2022 Gout, arthropathy 07/20/2022 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 02/05/2022 Permanent atrial fibrillation 12/22/2021 Overview: Added automatically from request for surgery [id number] Last Assessment & Plan: S/p Watchman Current [...] as of this encounter (statuses as of 03/16/2024) Resolved Problems Problem Noted Date Diagnosed Date [...] as of this encounter (statuses as of 03/16/2024) Immunizations Name Administration Dates Next Due COVID-19 mRNA, LNP-s, No Pre serve, 2-Dose Series (Moderna) 08/20/2020,07/17/2020 COVID-19 mRNA, LNP-s, No Pre serve, 2-Dose Series (Pfizer) 05/14/2021 COVID-19, LNP-s, No Preserve , Robbie-sucrose, Ages 12+ (Pfizer) 11/04/2021 COVID-19, MRNA-LNP, 23-24, P F, 30 MCG/0.3 mL, 12 YRS AND ABOVE, IM ([facility]) 11/29/2023,04/16/2023 Covid-19, Mrna, Lnp-s, Pf, B ivalent, 30 Mcg, IM, 12 yrs and above ([employer]) 03/17/2022 Pneumococcal Conjugate Vacc, 13 Valent (Prevnar) [...] Telephone Encounter - Claribel Quiles RN - 03/16/2024 11:09 AM EDT Pt spoke to Agatha CLARK. See other documentation from today documented in this encounter Plan of Treatment Upcoming Encounters Date Type Department Care Team (Late st Contact Info) Description 03/18/2024 11:55 AM EDT Imaging Radiology [address] [place] [address] 03/18/2024 1:00 PM EDT Imaging Radiology [address] [place] [address] 03/23/2024 10:00 AM EDT Home Visit [facility] [address] [address] Myrtle Allen, RN [address] [place] [address] 04/04/2024 8:00 AM EDT Office Visit Family Practice [address] [place] [address] 293 [place] [address] Benny Waite, DO 293 [facility] [place] [address] 04/25/2024 1:40 PM EST Telemedicine [facility], [facility] [address] [place] [address] Yadira Omalley CRNP [address] [place] [address] Ines Castro, [facility] Emergency Medical Technician Basic [address] [place] [address] 05/24/2024 9:15 AM EST Hospital Encounter [facility], Operating Room [facility] [address] [place] [address] Amador Christian, [address] [place] [address] 05/24/2024 9:15 AM EST - 05/24/2024 9:40 AM EST Surgery OR [facility], Operating Room [facility] [address] [place] [address] Amador Christian, DO [address] [place] [address] INJECTION SPINE LUMBAR OR SACRAL 07/12/2024 8:00 AM EST Office Visit Cardiology, [facility] [address] [place] [address] Júnior Coppola PA-C [address] [place] [address] 08/14/2024 10:00 AM EST Office Visit Cardiology, [facility] [address] [place] [address] Casimiro Barraza MD [address] [place] [address] Scheduled Procedures Name Priority Associated Diagnoses Date/Ti [...] this encounter Medical Devices Implanted Type Area Church Organist Device Identifier Shelf Expiration Date Model / Serial / Lot Device Watchman Flx 35mm - [id number] Implanted:Qty: 1 on 02/05/2022 by Diamond Teran IV, MD at [facility] [employer] : INTRV CARD [id number] 10/20/2024 [id number] 50 / / [id number] Cath Thermodilution 6fr - [id number] Implanted:Qty: 1 on 07/31/2022 by Franco Mcgregor MD at [facility] [employer] [id number] 04/30/2024 [id number] / / [id number] Mirtaclip G4 - [id number] Implanted:Qty: 1 on 11/16/2022 at [facility] [employer] 06/25/2023 [id number] / / [id number] Clip Delivery Sytem G4 Xtw - [id number] Implanted:Qty: 1 on 11/16/2022 at [facility] [employer] [id number] 08/10/2023 [id number] TW / / [id number] Clip Delivery Sytem G4 Xtw - [id number] Implanted:Qty: 1 on 11/16/2022 at [facility] [employer] [id number] 09/10/2023 [id number] / / [id number] documented as of this encounter Advance [...] and were consensually agreed upon. Care Teams Graduate Studies Dean Relationship Specialty Start Date End Date Benny Waite DO [address] [place] [facility] [place] [address] PCP - General Internal Medicine 11/25/23 documented as of this encounter
--- OUTSIDE RECORDS SUMMARY | 2024-03-26 09:48 | External Medical Summary | Summary of Care ---
Author Name Unknown Organization [facility] Address [address] [facility] [place] [address] Phone [phone] Care Team Providers Care Conversion Worker Name Role Phone Benny Waite DO Primary Care Provider [phone] Encounter Details Date Type Department Care Team (Late st Contact Info) Description 03/06/2024 12:30 PM EDT [facility] [address] [place] [address] Myrtle Allen, RN [address] [place] [address] Allergies Active Allergy Reactions Criticality Noted Date Comments Adhesive Tape 02/04/2017 Duloxetine High 07/13/2023 Other Reaction(s): confusion Levofloxacin 09/01/2019 documented as of this encounter (statuses as of 03/15/2024) Medications Medication Sig Dispensed Refills Start Date [...] 137 MCG/SPRAY Nasal SolutionIndication s:Allergies Administer 1 Limestone into each nostril 2 times a day [...] the morning. 100 Tablet 3 02/22/2024 Active documented as of this encounter (statuses as of 03/15/2024) Active Problems Problem Noted Date Diagnosed Date [...] night without results. He will go to [facility] for abdominal x-ray today to [...] Overview: Added automatically from request for surgery [id number] Last Assessment & Plan: S/p Watchman Current [...] as of this encounter (statuses as of 03/15/2024) Resolved Problems Problem Noted Date Diagnosed Date [...] as of this encounter (statuses as of 03/15/2024) Immunizations Name Administration Dates Next Due COVID-19 mRNA, LNP-s, No Pre serve, 2-Dose Series (Moderna) 08/20/2020,07/17/2020 COVID-19 mRNA, LNP-s, No Pre serve, 2-Dose Series (Pfizer) 05/14/2021 COVID-19, LNP-s, No Preserve , Robbie-sucrose, Ages 12+ (Pfizer) 11/04/2021 COVID-19, MRNA-LNP, 23-24, P F, 30 MCG/0.3 mL, 12 YRS AND ABOVE, IM (PFIZER-Comirnaty) 11/29/2023,04/16/2023 Covid-19, Mrna, Lnp-s, Pf, B ivalent, [...] 07/30/2023 Does the household have a re lar source of income? (Household - for ages [...] Sign Reading Time Taken Comments Blood Pressure 112/68 03/06/2024 12:49 PM EDT Pulse 68 03/06/2024 12:49 PM EDT Temperature 36.4 C (97.5 F) 03/06/2024 1 2:49 PM EDT Respiratory Rate 18 03/06/2024 12:4 9 PM EDT Oxygen Saturation 94% 03/06/2024 12: 49 PM EDT RA at rest Inhaled Oxygen Concentration - - Weight 97.8 kg (215 lb 9.6 oz) 03/06/20 12:49 PM EDT Height - - Body Mass Index 31.84 02/28/2024 8:57 AM EDT documented in this encounter Functional [...] Progress Notes * Myrtle Allen RN - 03/06/2024 10:45 AM EDT Images from the original note were not included. Current Concerns: Pt seen for acute visit Finished Doxy and augmentin for Pneumonia yesterday am Pt reports he still has thick mucus in his throat - reports it is white Denies feeling more SOB than normal States he went to grocery store Wednesday and was unable to walk throughout the store because of his SOB - when asked if he wore his oxygen, stated "no, only in the truck" Discussed at visit last week putting the POC in the shopping cart and he stated "I know I should have done that" Having low readings on [facility] for pulse ox [facility] pulse ox reading is 91% now RNCM pulse ox reading is 93% Pt has his own pulse ox also and is was reading 94% RNCM tested on self and was reading 97% - the other two not [facility] were higher at 98 and 99% Pt concerned his home o2 concentrator isn't getting his oxygen level up Double checked machine and it is functioning properly It is set at 3.5 l/min and can feel the o2 coming out of the NC Recheck level and pulse ox is now 98 with oxygen on at 3.5 l/min [facility] reads 95 with oxygen on at 3.5 l/min Noted a faint crackle of LLL Afebrile - 97.5 - 18 - 112/68 TT sent to [facility] with assessment for further recommendations Per Dr Saenz - recommends goal oxygen level to be between 90-92% Oxygen is on at 2 l/min now and pulse ox is reading at 94% and 97% on pt's own and [facility] pulse ox and 95% on [facility] Pt is also going to be ordered a steroid taper Pt educated again on wearing the oxygen and if he isn't and oxygen level is low, he is to apply theoxygen and recheck his oxygen level after waiting 10-15 minutes Pt took oxygen off during visit and after 10 minutes while sitting and talking, dropped to 86-88% Advised that he should be wearing oxygen at all times Pt had appt with Sleep medicine last week and he voices that he does not want to go back there and does not want to have a sleep study done at [facility] - would not further elaborate as to why. He is reluctant to use a PAP machine but was told it is best that he does He would like to f/u with a sleep med doctor form [facility] and have a sleep study done thru [facility] TE sent to scheduling to assist in getting this set up. Physical Exam: Physical Exam Constitutional: General: He is not in acute distress. Cardiovascular: Rate and Rhythm: Normal rate. Rhythm irregular. Pulses: Normal pulses. Heart sounds: Normal heart sounds. Pulmonary: Effort: Pulmonary effort is normal. Breath sounds: Rales (faint LLL) present. Abdominal: Palpations: Abdomen is soft. Skin: General: Skin is warm and dry. Neurological: Mental Status: He is alert and oriented to person, place, and time. Review of Systems: Review of Systems Constitutional: Negative. HENT: Negative. Eyes: Negative. Respiratory: Positive for cough (mostly in am, white mucus) and shortness of breath (CHESTER - at baseline). Cardiovascular: Negative. Gastrointestinal: Negative. Genitourinary: Negative. Musculoskeletal: Positive for arthralgias and back pain. Skin: Negative. Neurological: Positive for weakness (mild, general). Psychiatric/Behavioral: Negative. Care Plan Goal Progress: Orders Placed: No orders of the defined types were placed in this encounter. Medications Given: Pt will have someone apple picker steroid taper from pharmacy Care Gaps: Care Gaps Care gaps closed this contact:: Education;Medications (03/06/248) Type of education: Clinical/disease (03/06/241317) Type of medication care gap: Medication adherence;Medication optimization (steroid taper ordered) (03/06/241317) documented in this encounter Plan of Treatment Upcoming Encounters Date Type Department Care Team (Late st Contact Info) Description 03/15/2024 11:30 AM EDT Scheduled [facility]phone [facility] [address] [address] [address] Coordinator, [place] [address] [place] [address] 03/16/2024 12:00 PM EDT Scheduled Telephone [facility], [facility] [address] [address] [address] Coordinator, [place] [address] [address] [address] 03/18/2024 11:55 AM EDT Imaging Radiology [address] [place] [address] 03/18/2024 1:00 PM EDT Imaging Radiology [address] [place] [address] 03/23/2024 10:00 AM EDT [facility] [place], [facility] [address] [address] [address] Myrtle Allen RN [address] [place] [address] 04/04/2024 8:00 AM EDT Office Visit Family Practice [address] [place] [address] 293 [place] [address] Benny Waite, DO 293 [facility] [place] [address] 04/25/2024 1:40 PM EST Telemedicine [facility] [address] [place] [address] Yadira Omalley CRNP [address] [place] [address] Ines Castro, Community Health Supply Chain Vice President [address] [place] [address] 05/24/2024 9:15 AM EST Hospital Encounter [facility], Operating Room [facility] [address] [place] [address] Amador Christian, [address] [place] [address] 05/24/2024 9:15 AM EST - 05/24/2024 9:40 AM EST Surgery OR [facility], Operating Room [facility] [address] [phone] Amador Christian, [address] [place] [address] INJECTION SPINE LUMBAR OR SACRAL 07/12/2024 8:00 AM EST Office Visit Cardiology, [facility] [address] [place] [address] Júnior Coppola PA-C [address] [place] [address] 08/14/2024 10:00 AM EST Office Visit Cardiology, [facility] [address] [place] [address] Casimiro Barraza MD [address] [place] [address] Scheduled Procedures Name Priority Associated Diagnoses Date/Ti [...] this encounter Medical Devices Implanted Type Area Adjunct Professor Of Law Device Identifier Shelf Expiration Date Model / Serial / Lot Device Watchman Flx 35mm - [id number] Implanted:Qty: 1 on 02/05/2022 by Diamond Teran IV, MD at [facility] [employer] : INTRV CARD [id number] 10/20/2024 [id number] 50 / / [id number] Cath Thermodilution 6fr - [id number] Implanted:Qty: 1 on 07/31/2022 by Franco Mcgregor MD at [facility] [employer] [id number] 04/30/2024 [id number] / / [id number] Mirtaclip G4 - [id number] Implanted:Qty: 1 on 11/16/2022 at [facility] [employer] 06/25/2023 [id number] / / [id number] Clip Delivery Sytem G4 Xtw - [id number] Implanted:Qty: 1 on 11/16/2022 at [facility] [employer] [id number] 08/10/2023 [id number] / / [id number] Clip Delivery Sytem G4 Xtw - [id number] Implanted:Qty: 1 on 11/16/2022 at [facility] [employer] [id number] 09/10/2023 [id number] / / [id number] documented as of this encounter Advance [...] and were consensually agreed upon. Care Teams Conversion Worker Relationship Specialty Start Date End Date Benny Waite DO [address] [facility], [place] [address] PCP - General Internal Medicine 11/25/23 documented as of this encounter
--- OUTSIDE RECORDS SUMMARY | 2024-03-26 09:48 | External Medical Summary | Summary of Care ---
Author Name Unknown Organization [facility] Address [address] [place] [facility] [place] [address] Phone [phone] Care Team Providers Care Cold Patcher Name Role Phone Benny Waite DO Primary Care Provider [phone] Reason for Visit * Reason Onset Date Comments Test Results 03/15/202403/15 Encounter Details Date Type Department Care Team (Late st Contact Info) Description 03/15/2024 Telephone Family Practice [address] [facility] [place] 293 [place] [address] Benny Waite DO 293 [place] [address] Test Results (03/15) Allergies Active Allergy Reactions Criticality Noted Date [...] 137 MCG/SPRAY Nasal SolutionIndication s:Allergies Administer 1 Gage into each nostril 2 times a day [...] Overview: Added automatically from request for surgery [id number] Last Assessment & Plan: S/p Watchman Current [...] MCG/0.3 mL, 12 YRS AND ABOVE, IM (BigTwist-ComirnatzPerfectGift) 11/29/2023,04/16/2023 Covid-19, Mrna, Lnp-s, Pf, B ivalent, [...] Telephone Encounter - Asiya Bliss LPN - 03/15/2024 12:13 PM EDT Call placed to patient and relayed information from Dr. Waite. Pt acknowledged understanding. States he is feeling a little better, still has a stuffy nose. No questions at this time. * Telephone Encounter - Asiya Bliss LPN - 03/15/2024 12:10 PM EDT ----- Message from Benny Waite DO sent at 03/15/2024 9:05 AM EDT ----- No COVID, FLU or RSV documented in this encounter Plan of Treatment Upcoming Encounters Date Type Department Care Team (Late st Contact Info) Description 03/16/2024 12:00 PM EDT Scheduled Telephone [facility], [facility] 132 [facility] [place] [address] Coordinator, Fanny Leong Pending [facility] [address] [place] [address] 03/18/2024 11:55 AM EDT Imaging Radiology [address] 132 [facility] [place] [address] 03/18/2024 1:00 PM EDT Imaging Radiology [address] 132 [facility] [place] [address] 03/23/2024 10:00 AM EDT [facility] Visit [facility], [facility] 132 [facility] [place] [address] Myrtle Allen RN 132 [facility] [address] 04/04/2024 8:00 AM EDT Office Visit Family Practice [address] [facility] [place] 293 [place] [address] Benny Waite, 293 [facility] [place] [address] 04/25/2024 1:40 PM EST Telemedicine [facility], [facility] 132 [facility] [place] [address] Yadira Omalley CRNP [facility] [place] [address] Ines Castro, Community Health Nuclear Medicine Technician [facility] [place] [address] 05/24/2024 9:15 AM EST Hospital Encounter [facility], Operating Room [facility] [address] [place] [phone] Gino, Max Bruno, DO [address] [place] [address] 05/24/2024 9:15 AM EST - 05/24/2024 9:40 AM EST Surgery [facility], Operating Room [facility] [address] [place] [address] Amador Christian, DO [address] [place] [address] INJECTION SPINE LUMBAR OR SACRAL 07/12/2024 8:00 AM EST Office Visit Cardiology, [facility] [address] [place] [address] Júnior Coppola PA-C [address] [place] [address] 08/14/2024 10:00 AM EST Office Visit Cardiology, [facility] [address] [place] [address] Casimiro Barraza MD [address] [place] [address] Scheduled Procedures Name Priority Associated Diagnoses Date/Ti [...] this encounter Medical Devices Implanted Type Area Storage Center Manager Device Identifier Shelf Expiration Date Model / Serial / Lot Device Watchman Flx 35mm - [id number] Implanted:Qty: 1 on 02/05/2022 by Diamond Teran IV, MD at [facility] [employer] : INTRV CARD [id number] 10/20/2024 [id number] 50 / / [id number] Cath Thermodilution 6fr - [id number] Implanted:Qty: 1 on 07/31/2022 by Franco Mcgregor MD at [facility] [employer] [id number] 04/30/2024 [id number] / / [id number] Mirtaclip G4 - [id number] Implanted:Qty: 1 on 11/16/2022 at [facility] [employer] 06/25/2023 [id number] / / [id number] Clip Delivery Sytem G4 Xtw - [id number] Implanted:Qty: 1 on 11/16/2022 at [facility] [employer] [id number] 08/10/2023 [id number] TW / / [id number] Clip Delivery Sytem G4 Xtw - [id number] Implanted:Qty: 1 on 11/16/2022 at [facility] [employer] [id number] 09/10/2023 [id number] TW / / [id number] documented as of this encounter Advance [...] and were consensually agreed upon. Care Teams Cold Patcher Relationship Specialty Start Date End Date Benny Waite DO 293 [place] [address] PCP - General Internal Medicine 11/25/23 documented as of this encounter
--- OUTSIDE RECORDS SUMMARY | 2024-03-26 09:48 | External Medical Summary | Summary of Care ---
Author Name Unknown Organization [facility] Address [address] [place] [address] Phone [phone] Care Team Providers Care Talent Recruiter Name Role Phone Benny Waite DO Primary Care Provider [phone] Reason for Referral * Evaluate & Treat - Unlimited Visits (Within 10 days (routine)) - Pending Review Specialty Diagnoses / Procedures Referred By Elaina hernandez Referred To Contact Orthopaedic Surgery / Orthopedics Diagnoses Mass of left upper extremity Yadira Omalley CRNP [address] [place] [address] Josue Espinosa MD [address] [place] [address] Referral ID Status Reason Start Date Expiration Date Visits Requested Visits Authorized [id number] Pending Review Specialty Services Required 03/20/[phone] Question Answer Referral Priority Within 10 days (routine) Where should this appointment be scheduled? [facility] What body part is the patient being seen for? Arm/Elbow What condition is the patient being seen for? 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 Orthopaedic oncology evaluation is recommended. Reason for Visit * Reason Onset Date Comments Test Results 03/20/2024 Unexpected or In determinate Result Encounter Details Date Type Department Care Team (Late st Contact Info) Description 03/20/2024 Telephone Laboratory, [place] [address] [place] [address] Yadira Omalley CRNP [address] [place] [address] Test Results (Unexpected or Indeterminate ... Allergies [...] daily. 90 Tablet 3 08/09/2023 5 Active Meclizine HCl 12.5 MG Oral Tablet [...] 137 MCG/SPRAY Nasal SolutionIndication s:Allergies Administer 1 [place] into each nostril 2 times a day [...] night without results. 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 (Household - for ages [...] Addendum Note - Yadira Omalley CRNP - 03/20/2024 11:22 AM EDTAddended by: YADIRA OMALLEY on: 03/20/2024 11:22 AM Modules accepted: Orders * Addendum Note - Yadira Omalley CRNP - 03/20/2024 11:21 AM EDTAddended by: YADIRA OMALLEY on: 03/20/2024 11:21 AM Modules accepted: Orders * Telephone Encounter - Yadiar Omalley CRNP - 03/20/2024 11:19 AM EDT I called pt and made him aware. Pt hoping he can see orthopedic oncology in [place], made aware that I am unsure and appt may need to be in [place]. [facility] scheduling--orthopedic surgery/ortho oncology referral placed--Dr. Jesús Edmondson, please assist with scheduling. Thanks * Telephone Encounter - Ashlee Flannery OSA - 03/20/2024 10:55 AM EDT Hello- The radiologist discovered an unexpected or indeterminate finding on Nikolas Silvestre ([id number]) and asks that you review the following report. 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 Orthopaedic oncology evaluation is recommended. Please respond to this encounter to acknowledge receipt of this message and take responsibility to ensure this report is reviewed. Thank you, DEX Weiner Client Service [facility] documented in this encounter Plan of Treatment Upcoming Encounters Date Type Department Care Team (Late st Contact Info) Description 03/21/2024 9:30 AM EDT Scheduled Telephone [facility], [facility] 132 [facility] [place] [address] Coordinator, [facility] 132 [facility] [place] [address] 03/23/2024 10:00 AM EDT Home Visit [facility], [facility] 132 [facility] [place] [address] Myrtle Allen RN 132 [facility] [place] [address] 04/04/2024 8:00 AM EDT Office Visit Family Practice [address] [place] [address] 293 [place] [address] Benny Waite, DO 293 [place] [address] 04/25/2024 1:40 PM EST Telemedicine [facility], [facility] 132 [facility] [place] [address] Yadira [facility]malley CRNP 132 [facility] [address] Ines Castro, Community Health Lacing Presser [address] [place] [address] 05/24/2024 9:15 AM EST Hospital Encounter [facility], Operating Room [facility] 132 [facility] [place] [address] Amador Christian, 132 [facility] [place] [address] 05/24/2024 9:15 AM EST - 05/24/2024 9:40 AM EST Surgery [facility], Operating Room [facility] [address] [place] [address] Amador Christian DO [address] [place] [address] INJECTION SPINE LUMBAR OR SACRAL 07/12/2024 8:00 AM EST Office Visit Cardiology, [facility] [address] [place] [address] Júnior Coppola PA-C [address] [place] [address] 08/14/2024 10:00 AM EST Office Visit Cardiology, [facility] [address] [place] [address] Casimiro Barraza MD [address] [place] [address] Scheduled Procedures Name Priority Associated Diagnoses Date/Ti me INJECTION SPINE LUMBAR OR SACRAL Spinal stenosis of lumbar region with neurogenic claudication 05/24/2024 9:15 AM EST Scheduled Referrals Name Type Priority Associated Diagnoses Order Schedule ORTHOPAEDICS REFERRAL OP Referral Within 10 days (routine) Mass of left upper extremity Ordered: 03/20/2024 Health Maintenance Due Date Last Done Comments [...] this encounter Medical Devices Implanted Type Area Vice Provost Device Identifier Shelf Expiration Date Model / Serial / Lot Device Watchman Flx 35mm - [id number] Implanted:Qty: 1 on 02/05/2022 by Diamond Teran IV, MD at [facility] [employer] : INTRV CARD [id number] 10/20/2024 [id number] 50 / / [id number] Cath Thermodilution 6fr - [id number] Implanted:Qty: 1 on 07/31/2022 by Franco Mcgregor MD at [facility] [employer] [id number] 04/30/2024 [id number] / / [id number] Mirtaclip G4 - [id number] Implanted:Qty: 1 on 11/16/2022 at [facility] [employer] 06/25/2023 [id number] / / [id number] Clip Delivery Sytem G4 Xtw - [id number] Implanted:Qty: 1 on 11/16/2022 at [facility] [employer] [id number] 08/10/2023 [id number] TW / / [id number] Clip Delivery Sytem G4 Xtw - [id number] Implanted:Qty: 1 on 11/16/2022 at [facility] [employer] [id number] 09/10/2023 [id number] TW / / [id number] documented as of this encounter Visit Diagnoses Diagnosis Mass of left upper extremity- Primary Spinal stenosis of lumbar region with neurogenic [...] and were consensually agreed upon. Care Teams Talent Recruiter Relationship Specialty Start Date End Date Benny Waite DO 293 [place] [address] PCP - General Internal Medicine 11/25/23 documented as of this encounter
--- OUTSIDE RECORDS SUMMARY | 2024-03-26 09:48 | External Medical Summary | Summary of Care ---
Author Name Unknown Organization [facility] Address [address] [address] Phone [phone] Care Team Providers Care Manager Transition Name Role Phone Benny Waite DO Primary Care Provider [phone] Reason for Visit * Reason Onset Date Comments [facility]: Maintenance 03/16/2024 Encounter Details Date Type Department Care Team (Late st Contact Info) Description 03/16/2024 Telephone [facility], [place] [address] [place] [address] Agatha Reddy, [facility]BER [address] [facility] [address] [facility]: Maintenance Allergies Active [...] 137 MCG/SPRAY Nasal SolutionIndication s:Allergies Administer 1 [place] into each nostril 2 times a day [...] MVR (mitral valve repair) 11/16/2022 Atherosclerosis of [place] co 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 pectoris 08/11/2022 Severe tricuspid regurgitation 08/11/2022 Gout, arthropathy 07/20/2022 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 02/05/2022 Permanent atrial fibrillation 12/22/2021 Overview: Added automatically from request for surgery [id number] Last Assessment & Plan: S/p Watchman Current [...] the Comments) Remote Patient Monitoring Vendor: [facility] Device(s): Connected Scale Self - Management Plan [...] MCG/0.3 mL, 12 YRS AND ABOVE, IM ([employer] [facility]) 11/29/2023,04/16/2023 Covid-19, Mrna, Lnp-s, Pf, B ivalent, 30 Mcg, IM, 12 yrs and above ([employer]) 03/17/2022 Pneumococcal Conjugate Vacc, 13 Valent [...] Telephone Encounter - Agatha Reddy LPN - 03/16/2024 9:40 AM EDT Patient calling back asking me to tell Yadira Omalley he is not getting the new scripts at the pharmacy he does not feel he needs them he has other inhalers , and asking what the purpose is of him checking his pulse ox when it is not accurate most days. And he wears the oxygen all night and reads low He states he can call in with issues Will route to Care Team with his concerns * Telephone Encounter - Agatha Reddy LPN - 03/16/2024 9:15 AM EDT [facility] Remote Patient Monitoring Able to contact patient: Trigger type: Abnormal reading(s): AMC (Advanced Monitored Caregiving): Pulse Oximeter: Oxygen saturation per oximeter: 85% measured while on 2 LPM Pulse rate per oximeter: 78 Trigger priority per AMC: moderate Symptom review: None Diet Reviewed: N/A Fluid [...] Additional risk selection justification: Spoke to patient rechecked pulse ox with his own oximeter 91% on 2 liters, he was made aware of CXR results yesterday and the scripts sent to pharmacy, deniesincreased SOB or edema in LE or abdomen will call with any issues Overall risk and identified plan: High risk: Route to RNCM (Registered Nurse Invoice Control Clerk) and Advance Practitioner documented in this encounter Plan of Treatment Upcoming Encounters Date Type Department Care Team (Late st Contact Info) Description 03/16/2024 12:00 PM EDT Scheduled Telephone [facility], [facility] 132 [facility] [place] [address] Coordinator, [facility] [address] [place] [address] 03/18/2024 11:55 AM EDT Imaging Radiology [address] 132 [facility] [place] [address] 03/18/2024 1:00 PM EDT Imaging Radiology [address] [place] [address] 03/23/2024 10:00 AM EDT Home Visit [facility], [facility] [address] [place] [address] Myrtle Allen RN 132 [facility] [place] [address] 04/04/2024 8:00 AM EDT Office Visit Family Practice [address] [place] [address], [place] 293 [place] [address] Benny Waite, 293 [place] [address] 04/25/2024 1:40 PM EST Telemedicine [facility], [facility] 132 [facility] [place] [address] Yadira Omalley CRNP 132 [facility] [place] [address] Ines Castro, Community Health Mechanic Welder Truck Driver [facility] [place] [address] 05/24/2024 9:15 AM EST Hospital Encounter [facility], Operating Room [facility] [address] [place] [address] Amador Christian, DO [address] [place] [address] 05/24/2024 9:15 AM EST - 05/24/2024 9:40 AM EST Surgery OR [facility], Operating Room [facility] [address] [place] [address] Amador Christian, DO [address] [place] [address] INJECTION SPINE LUMBAR OR SACRAL 07/12/2024 8:00 AM EST Office Visit Cardiology, [facility] [address] [place] [address] Júnior Coppola PA-C [address] [place] [address] 08/14/2024 10:00 AM EST Office Visit Cardiology, [facility] [address] [place] [address] Casimiro Barraza MD [address] [place] [address] Scheduled Procedures Name Priority Associated Diagnoses Date/Ti [...] this encounter Medical Devices Implanted Type Area Learning And Development Associate Device Identifier Shelf Expiration Date Model / Serial / Lot Device Watchman Flx 35mm - [id number] Implanted:Qty: 1 on 02/05/2022 by Diamond Teran IV, MD at [facility] [employer] : INTRV CARD [id number] 10/20/2024 [id number] 50 / / [id number] Cath Thermodilution 6fr - [id number] Implanted:Qty: 1 on 07/31/2022 by Franco Mcgregor MD at [facility] [employer] [id number] 04/30/2024 [id number] / / [id number] Mirtaclip G4 - [id number] Implanted:Qty: 1 on 11/16/2022 at [facility] [employer] 06/25/2023 [id number] / / [id number] Clip Delivery Sytem G4 Xtw - [id number] Implanted:Qty: 1 on 11/16/2022 at [facility] [employer] [id number] 08/10/2023 [id number] / / [id number] Clip Delivery Sytem G4 Xtw - [id number] Implanted:Qty: 1 on 11/16/2022 at [facility] [employer] [id number] 09/10/2023 [id number] / / [id number] documented as of this encounter Advance [...] and were consensually agreed upon. Care Teams Manager Transition Relationship Specialty Start Date End Date Benny Waite DO 293 [place] [address] PCP - General Internal Medicine 11/25/23 documented as of this encounter
--- OUTSIDE RECORDS SUMMARY | 2024-03-26 09:48 | External Medical Summary | Summary of Care ---
Author Name Unknown Organization [facility] Address [address] [facility] [address] Phone [phone] Care Team Providers Care Garment Parts Cutter Hand Name Role Phone Benny Waite DO Primary Care Provider [phone] Reason for Visit * Reason Onset Date Comments [facility]: Maintenance 03/16/2024 Encounter Details Date Type Department Care Team (Late st Contact Info) Description 03/16/2024 Telephone [facility], [place] [address] [place] [address] Agatha Reddy, AMBER [address] [facility] [address] [facility]: Maintenance Allergies Active [...] 137 MCG/SPRAY Nasal SolutionIndication s:Allergies Administer 1 [place] into each nostril 2 times a day [...] night without results. He will go to [facility] for abdominal x-ray today to rule [...] Overview: Added automatically from request for surgery [id number] Last Assessment & Plan: S/p Watchman Current [...] [facility] Device(s): Connected Scale Self - Management Plan [...] MCG/0.3 mL, 12 YRS AND ABOVE, IM ([facility]) 11/29/2023,04/16/2023 Covid-19, Mrna, Lnp-s, Pf, B ivalent, 30 Mcg, IM, 12 yrs and above ([employer]) 03/17/2022 Pneumococcal Conjugate Vacc, 13 Valent (Prevnar) [...] Reddy LPN - 03/16/2024 9:15 AM EDT [facility] Remote Patient Monitoring [...] High risk: Route to RNCM (Registered Nurse Ship Captain) and Advance Practitioner documented in this encounter Plan of Treatment Upcoming Encounters Date Type Department Care Team (Late st Contact Info) Description 03/16/2024 12:00 PM EDT Scheduled Telephone [facility] [address] [place] [address] Coordinator, [facility] [address] [place] [address] 03/18/2024 11:55 AM EDT Imaging Radiology [address] [place] [address] 03/18/2024 1:00 PM EDT Imaging Radiology [address] [place] [address] 03/23/2024 10:00 AM EDT Home Visit [facility], [facility] [address] [place] [address] Myrtle Allen, RN [address] [place] [address] 04/04/2024 8:00 AM EDT Office Visit Family Practice [address], [place] 293 [place] [address] Benny Waite, DO 293 [place] [address] 04/25/2024 1:40 PM EST Telemedicine [facility], [facility] [address] [place] [address] Yadira Omalley CRNP [address] [place] [address] Ines Castro, Community Health Bulb Packer [address] [place] [address] 05/24/2024 9:15 AM EST Hospital Encounter OR [facility], Operating Room [facility] [address] [place] [address] Amador Christian, [address] [place] [address] 05/24/2024 9:15 AM EST - 05/24/2024 9:40 AM EST Surgery OR [facility], Operating Room [facility] [address] [place] [address] Amador Christian, [address] [place] [address] INJECTION SPINE LUMBAR OR SACRAL 07/12/2024 8:00 AM EST Office Visit Cardiology, [facility] [address] [place] [address] Júnior Coppola PA-C [address] [place] [address] 08/14/2024 10:00 AM EST Office Visit Cardiology, [facility] [address] [place] [address] Casimiro Barraza MD [address] [place] [address] Scheduled Procedures Name Priority Associated Diagnoses Date/Ti [...] this encounter Medical Devices Implanted Type Area Conservation Educator Device Identifier Shelf Expiration Date Model / Serial / Lot Device Watchman Flx 35mm - [id number] Implanted:Qty: 1 on 02/05/2022 by Diamond Teran IV, MD at [facility] [employer] : INTRV CARD [id number] 10/20/2024 [id number] 50 / / [id number] Cath Thermodilution 6fr - [id number] Implanted:Qty: 1 on 07/31/2022 by Franco Mcgregor MD at [facility] [employer] [id number] 04/30/2024 [id number] / / [id number] Mirtaclip G4 - [id number] Implanted:Qty: 1 on 11/16/2022 at [facility] [employer] 06/25/2023 [id number] / / [id number] Clip Delivery Sytem G4 Xtw - [id number] Implanted:Qty: 1 on 11/16/2022 at [facility] [employer] [id number] 08/10/2023 [id number] TW / / [id number] Clip Delivery Sytem G4 Xtw - [id number] Implanted:Qty: 1 on 11/16/2022 at [facility] [employer] [id number] 09/10/2023 [id number] TW / / [id number] documented as of this encounter Advance [...] and were consensually agreed upon. Care Teams Garment Parts Cutter Hand Relationship Specialty Start Date End Date Benny Waite DO [address] [place] [address] PCP - General Internal Medicine 11/25/23 documented as of this encounter
--- OUTSIDE RECORDS SUMMARY | 2024-03-26 09:48 | External Medical Summary | Summary of Care ---
Author Name Unknown Organization [facility] Address [address] [place] [address] Phone [phone] Care Team Providers Care Cable Reeler Name Role Phone YifansaurabhBenny DO Primary Care Provider [phone] Reason for Visit * Reason Onset Date Comments Test Results 03/20/2024 Unexpected or In determinate Result Encounter Details Date Type Department Care Team (Late st Contact Info) Description 03/20/2024 Telephone Laboratory, [place] [address] [place] [address] Yadira Omalley CRNP [address] [place] [address] Test Results (Unexpected or Indeterminate ... Allergies [...] 137 MCG/SPRAY Nasal SolutionIndication s:Allergies Administer 1 [place] into each nostril 2 times a day [...] without results. He will go to [facility] for abdominal x-ray today to [...] Overview: Added automatically from request for surgery [id number] Last Assessment & Plan: S/p Watchman Current [...] in the Comments) Remote Patient Monitoring Vendor: [facility] Device(s): Connected Scale Self - [...] 12 YRS AND ABOVE, IM ([employer]) 11/29/2023,04/16/2023 Covid-19, Mrna, Lnp-s, Pf, B ivalent, [...] encounter Miscellaneous Notes * Telephone Encounter - Ashlee Flannery OSA - 03/20/2024 10:55 AM EDT Hello- The radiologist discovered an unexpected or indeterminate finding on Nikolas Silvestre ([id number]) and asks that you review the following [...] reviewed. Thank you, DEX Weiner Client Service Rep [facility] documented in this encounter Plan of Treatment Upcoming Encounters Date Type Department Care Team (Late st Contact Info) Description 03/21/2024 9:30 AM EDT Scheduled Telephone [facility] [place], [facility] 132 [place] [address] Coordinator, [facility] [address] [place] [address] 03/23/2024 10:00 AM EDT Home Visit [facility], [facility] [address] [place] [address] Myrtle Allen, RN [address] [place] [address] 04/04/2024 8:00 AM EDT Office Visit Family Practice 65 [facility], [place] 293 [place] [address] Benny Waite, DO 293 [facility] [address] 04/25/2024 1:40 PM EST Telemedicine [facility], [facility] [address] [place] [address] Yadira Omalley CRNP [address] [place] [address] Ines Castro, Community Health Corporate Director Of Pharmacy [address] [place] [address] 05/24/2024 9:15 AM EST Hospital Encounter OR [facility], Operating Room [facility] [address] [place] [address] Amador Christian, [address] [place] [address] 05/24/2024 9:15 AM EST - 05/24/2024 9:40 AM EST Surgery OR [facility], Operating Room [facility] [address] [place] [address] Amador Christian, DO [address] [place] [address] INJECTION SPINE LUMBAR OR SACRAL 07/12/2024 8:00 AM EST Office Visit Cardiology, [facility] [address] [place] [address] Júnior Coppola PA-C [address] [place] [address] 08/14/2024 10:00 AM EST Office Visit Cardiology, [facility] [address] [place] [address] Casimiro Barraza MD [address] [place] [address] Scheduled Procedures Name Priority Associated Diagnoses Date/Ti [...] this encounter Medical Devices Implanted Type Area S Iron Worker Device Identifier Shelf Expiration Date Model / Serial / Lot Device Watchman Flx 35mm - [id number] Implanted:Qty: 1 on 02/05/2022 by Diamond Teran IV, MD at [facility] [employer] : INTRV CARD [id number] 10/20/2024 [id number] 50 / / [id number] Cath Thermodilution 6fr - [id number] Implanted:Qty: 1 on 07/31/2022 by Franco Mcgregor MD at [facility] [employer] [id number] 04/30/2024 [id number] / / [id number] Mirtaclip G4 - [id number] Implanted:Qty: 1 on 11/16/2022 at [facility] [email or web address] 06/25/2023 [id number] / / [id number] Clip Delivery Sytem G4 Xtw - [id number] Implanted:Qty: 1 on 11/16/2022 at [facility] [email or web address] [id number] 08/10/2023 [id number] TW / / [id number] Clip Delivery Sytem G4 Xtw - [id number] Implanted:Qty: 1 on 11/16/2022 at [facility] [email or web address] [id number] 09/10/2023 [id number] TW / / [id number] documented as of this encounter Advance [...] and were consensually agreed upon. Care Teams Cable Reeler Relationship Specialty Start Date End Date Benny Waite DO [address] [place] [address] PCP - General Internal Medicine 11/25/23 documented as of this encounter
--- OUTSIDE RECORDS SUMMARY | 2024-03-26 09:48 | External Medical Summary | Summary of Care ---
Author Name Unknown Organization [facility] Address [address] [place] [address] Phone [phone] Care Team Providers Care Topographical Drafter Name Role Phone Benny Waite DO Primary Care Provider [phone] Reason for Referral * Evaluate & Treat - Unlimited Visits (Within 10 days (routine)) - Pending Review Specialty Diagnoses / Procedures Referred By Elaina hernandez Referred To Contact Orthopaedic Surgery / Orthopedics Diagnoses Mass of left upper extremity Yadira Omalley CRNP [address] [facility] [address] Referral ID Status Reason Start Date Expiration Date Visits Requested Visits Authorized [id number] Pending Review Specialty Services Required 03/20/2024 999 [...] st Contact Info) Description 03/20/2024 Telephone Laboratory, [address] [place] [address] Yadira Omalley, JUAN [address] [place] [address] Test Results (Unexpected or Indeterminate ... 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 Pt hoping he can see orthopedic oncology in [place], made aware that I am unsure and appt may need to be in [place]. [facility] scheduling--orthopedic surgery/ortho oncology referral placed--Dr. Jesús Weber, please assist with scheduling. Thanks * Telephone Encounter - Ashlee Flannery OSA - 03/20/2024 10:55 AM EDT Hello- The radiologist discovered an unexpected or indeterminate finding on Nikolas Silvestre ([id number]) and asks that you review the following [...] reviewed. Thank you, DEX Weiner Client Service [facility] Diagnostic [facility] [place] documented in this encounter Plan of Treatment Upcoming Encounters Date Type Department Care Team (Late st Contact Info) Description 03/21/2024 9:30 AM EDT Scheduled Telephone [facility] [place] 132 [facility] [place] [address] Coordinator, [facility] 132 [facility] [place] [address] 03/23/2024 10:00 AM EDT [facility], [facility] [address] [place] [address] Myrtle Allen RN [address] [place] [address] 04/04/2024 8:00 AM EDT Office Visit Family Practice 65 [facility] 293 [place] [address] Benny Waite, DO 293 [place] [address] 04/25/2024 1:40 PM EST Telemedicine [facility], [facility] [place] [address] Yadira Omalley CRNP [address] [facility] [place] [address] Ines Castro, Community Health Public Address Technician [address] [place] [address] 05/24/2024 9:15 AM EST Hospital Encounter [facility], Operating Room [facility] 132 [place] [address] Amador Christian, DO [address] [place] [address] 05/24/2024 9:15 AM EST - 05/24/2024 9:40 AM EST Surgery OR [facility], Operating Room [facility] [address] [place] [address] Amador Christian, DO [address] [place] [address] INJECTION SPINE LUMBAR OR SACRAL 07/12/2024 8:00 AM EST Office Visit Cardiology, [facility] [address] [place] [address] Júnior Coppola PA-C [address] [place] [address] 08/14/2024 10:00 AM EST Office Visit Cardiology, [facility] [address] [place] [address] Casimiro Barraza MD [address] [place] [address] Scheduled Procedures Name Priority Associated Diagnoses Date/Ti [...] this encounter Medical Devices Implanted Type Area Online Marketing Specialist Device Identifier Shelf Expiration Date Model / Serial / Lot Device Watchman Flx 35mm - [id number] Implanted:Qty: 1 on 02/05/2022 by Diamond Teran IV, MD at [facility] [employer] : INTRV CARD [id number] 10/20/2024 [id number] / / [id number] Cath Thermodilution 6fr - [id number] Implanted:Qty: 1 on 07/31/2022 by Franco Mcgregor MD at [facility] [employer] [id number] 04/30/2024 [id number] / / [id number] Mirtaclip G4 - [id number] Implanted:Qty: 1 on 11/16/2022 at [facility] [employer] 06/25/2023 [id number] / / [id number] Clip Delivery Sytem G4 Xtw - [id number] Implanted:Qty: 1 on 11/16/2022 at [facility] [employer] [id number] 08/10/2023 [id number] TW / / [id number] Clip Delivery Sytem G4 Xtw - [id number] Implanted:Qty: 1 on 11/16/2022 at [facility] [employer] [id number] 09/10/2023 [id number] TW / / [id number] documented as of this encounter Visit [...] and were consensually agreed upon. Care Teams Topographical Drafter Relationship Specialty Start Date End Date Bneny Waite DO [address] [place] [address] PCP - General Internal Medicine 11/25/23 documented as of this encounter
--- OUTSIDE RECORDS SUMMARY | 2024-03-26 09:48 | External Medical Summary | Summary of Care ---
Author Name Unknown Organization [facility] Address [address] [facility] [address] Phone [phone] Care Team Providers Care Senior Paralegal Name Role Phone Benny Waite DO Primary Care Provider [phone] Reason for Visit * Reason Onset Date Comments [facility]: Maintenance 03/15/2024 Encounter Details Date Type Department Care Team (Latest Contact Info) Description 03/15/2024 11:30 AM EDT Scheduled Telephone [facility], [facility] [address] [place] [address] Coordinator, [facility] [address] [facility] [place] [address] Restrictive lung disease* Allergies Active Allergy Reactions Criticality Noted Date [...] 137 MCG/SPRAY Nasal SolutionIndication s:Allergies Administer 1 [place] into each nostril 2 times a day [...] night without results. 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 02/05/2022 Permanent atrial fibrillation 12/22/2021 Overview: Added automatically from request for surgery [id number] Last Assessment & Plan: S/p Watchman Current [...] [facility] Device(s): Connected Scale Self - Management Plan [...] MCG/0.3 mL, 12 YRS AND ABOVE, IM ([email or web address]) 11/29/2023,04/16/2023 Covid-19, Mrna, Lnp-s, Pf, B ivalent, 30 Mcg, IM, 12 yrs and above (Precognate) 03/17/2022 Pneumococcal Conjugate Vacc, 13 Valent (Prevnar) [...] Telephone Encounter - Antonietta Carter RN - 03/15/2024 10:46 AM EDT Call to pt, made aware of provider message and rx for proair inhaler sent. Pt verbalized understanding. Asked pt if he is willing to use nebulizer. Pt states he has a nebulizer and has been using. Nonebulizer noted on med list. Pt unable to identify what solution he is using with it. Chart review indicates pt was previously prescribed proventil neb. Scheduled for f/u call tomorrow. * Telephone Encounter - Yadira Omalley CRNP - 03/15/2024 10:34 AM EDT Viral swab was negative for flu and COVID. He could have some other virus like rhinovirus etc. We discussed this morning, noted patient was just treated for pneumonia 02/23 with Augmentin and doxy. Suspect the chest x-ray that was just completed is showing some residual that-they can take several weeks for the chest x-ray to clear. I think we can continue to monitor, he should wear oxygen to maintain SpO2 greater than 90%. His PFT from 2022 showed some restrictive impairment. I am going to send him a rescue inhaler to use with a spacer. He can use 2 puffs every 4 hours as needed for shortness of breath, coughing or wheezing. We could also consider a nebulizer if he is willing to use that. It looks like he was seen by Pulmonary in December and they recommended rescue albuterol PRN. * Telephone Encounter - Antonietta Carter RN - 03/15/2024 7:54 AM EDT Images from the original note were not included. Acute f/u: Yesterday, pt started DTP (double lasix x 3 days) 03/15 for weight gain of 4.6 lbs in one week, +abdbloating and increased fatigue. Reinforced to wear O2 to keep sats > 90%. CXR and covid/flu swab ordered and complete at clinic. CXR complete, see results below. Swab negative. Today, 03/15: Still feels unwell. Breathing about the same as yesterday, +cough productive for yellow sputum. Throat is sore and feels hoarse. No fever. Weight today = 218.9 lbs (220.2 yesterday). Pt reports he did not start DTP yesterday because he prefers to start in the morning, so he will start today. SpO2 checked while classifications officer cc/cm, started at 83% on RA, increased to 90% over 1 minute while pt talking. Pt reports he is about to eat breakfast and doesn't wear his O2 while on the phone or eating. Advised to wear O2 to keep sat > 90%. [facility] today: documented in this encounter Plan of Treatment Upcoming Encounters Date Type Department Care Team (Late st Contact Info) Description 03/16/2024 12:00 PM EDT Scheduled Telephone [facility], [facility] 132 [facility] [place] [address] Coordinator, [facility] [place] [address] 03/18/2024 11:55 AM EDT Imaging Radiology [address] 132 [facility] [place] [address] 03/18/2024 1:00 PM EDT Imaging Radiology [address] [facility] [place] [address] 03/23/2024 10:00 AM EDT Home Visit [facility], [facility] [address] [facility] [place] [address] Myrtle Allen RN 132 [facility] [address] 04/04/2024 8:00 AM EDT Office Visit Family Practice [address], [place] 293 [place] [address] Benny Waite, 293 [place] [address] 04/25/2024 1:40 PM EST Telemedicine [facility], [facility] 132 [facility] [place] [address] Yadira [facility]malley CRNP 132 [facility] [address] Ines Castro, Community Health Furniture Sprayer [address] [place] [address] 05/24/2024 9:15 AM EST Hospital Encounter [facility], Operating Room [facility] [address] [facility] [place] [id number] Amador Christian DO [address] [place] [address] 05/24/2024 9:15 AM EST - 05/24/2024 9:40 AM EST Surgery OR [facility], Operating Room [facility] [address] [place] [phone] Amador Christian, DO [address] [place] [address] INJECTION SPINE LUMBAR OR SACRAL 07/12/2024 8:00 AM EST Office Visit Cardiology, [facility] [address] [place] [address] Júnior Coppola PA-C [address] [place] [address] 08/14/2024 10:00 AM EST Office Visit Cardiology, [facility] [address] [place] [address] Casimiro Barraza MD [address] [place] [address] Scheduled Procedures Name Priority Associated Diagnoses Date/Ti [...] this encounter Medical Devices Implanted Type Area Clinical Unit Coordinator Device Identifier Shelf Expiration Date Model / Serial / Lot Device Watchman Flx 35mm - [id number] Implanted:Qty: 1 on 02/05/2022 by Diamond Teran IV, MD at [facility] [place] [employer] : INTRV CARD [id number] 10/20/2024 [id number] / / [id number] Cath Thermodilution 6fr - [id number] Implanted:Qty: 1 on 07/31/2022 by Franco Mcgregor MD at [facility] [place] [employer] [id number] 04/30/2024 [id number] / / [id number] Mirtaclip G4 - [id number] Implanted:Qty: 1 on 11/16/2022 at [facility] [place] [employer] 06/25/2023 [id number] / / [id number] Clip Delivery Sytem G4 Xtw - [id number] Implanted:Qty: 1 on 11/16/2022 at [facility] [place] [employer] [id number] 08/10/2023 [id number] / / [id number] Clip Delivery Sytem G4 Xtw - [id number] Implanted:Qty: 1 on 11/16/2022 at [facility] [place] [employer] [id number] 09/10/2023 [id number] / / [id number] documented as of this encounter Visit Diagnoses Diagnosis Restrictive lung disease- Primary Other diseases of lung, not elsewhere classified Spinal stenosis of lumbar region with neurogenic [...] were consensually agreed upon. Care Teams Senior Paralegal Relationship Specialty Start Date End Date Benny Waite DO [address] [place] [address] PCP - General Internal Medicine 11/25/23 documented as of this encounter
--- OUTSIDE RECORDS SUMMARY | 2024-03-26 09:48 | External Medical Summary | Summary of Care ---
Author Name Unknown Organization [facility] Address [address] [place] [address] Phone [phone] Care Team Providers Care Machine Pie Maker Name Role Phone YifansaurabhBenny DO Primary Care Provider [phone] Reason for Visit * Reason Onset Date Comments Test Results 03/20/2024 Unexpected or In determinate Result Encounter Details Date Type Department Care Team (Late st Contact Info) Description 03/20/2024 Telephone Laboratory, [place] [address] [place] [address] Yadira Omalley CRNP [address] [place] [address] Test Results (Unexpected or Indeterminate ... Allergies [...] 137 MCG/SPRAY Nasal SolutionIndication s:Allergies Administer 1 [place] into each nostril 2 times a day [...] valve repair) 11/16/2022 Atherosclerosis of [place] co 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 pectoris 08/11/2022 Severe tricuspid regurgitation 08/11/2022 Gout, arthropathy 07/20/2022 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 02/05/2022 Permanent atrial fibrillation 12/22/2021 Overview: Added automatically from request for surgery [id number] Last Assessment & Plan: S/p Watchman Current [...] MCG/0.3 mL, 12 YRS AND ABOVE, IM ([employer]) 11/29/2023,04/16/2023 Covid-19, Mrna, Lnp-s, Pf, B ivalent, [...] unexpected or indeterminate finding on Nikolas Silvestre ([id number]) and asks that you review the following [...] Thank you, DEX Weiner Client Service Rep [facility] documented in this encounter Plan of Treatment Upcoming Encounters Date Type Department Care Team (Late st Contact Info) Description 03/21/2024 9:30 AM EDT Scheduled Telephone [facility], [facility] 132 [place] [address] Coordinator, [facility] [address] [place] [address] 03/23/2024 10:00 AM EDT Home Visit [facility], [facility] [address] [place] [address] Myrtle Allen, RN [address] [place] [address] 04/04/2024 8:00 AM EDT Office Visit Family Practice [address] [facility] [place] 293 [place] [address] Benny Waite, DO 293 [place] [address] 04/25/2024 1:40 PM EST Telemedicine [facility], [facility] [address] [place] [address] Yadira Omalley CRNP [address] [place] [address] Ines Castro, Community Health Transportation Economics Teacher [address] [place] [address] 05/24/2024 9:15 AM EST Hospital Encounter [facility], Operating Room [facility] [address] [place] [address] Amador Christian, [address] [place] [address] 05/24/2024 9:15 AM EST - 05/24/2024 9:40 AM EST Surgery OR [facility], Operating Room [facility] [address] [place] [address] Amador Christian, DO [address] [place] [address] INJECTION SPINE LUMBAR OR SACRAL 07/12/2024 8:00 AM EST Office Visit Cardiology, [facility] [address] [place] [address] Júnior Coppola PA-C [address] [place] [address] 08/14/2024 10:00 AM EST Office Visit Cardiology, [facility] [address] [place] [address] Casimiro Barraza MD [address] [place] [address] Scheduled Procedures Name Priority Associated Diagnoses Date/Ti [...] this encounter Medical Devices Implanted Type Area Cut File Clerk Device Identifier Shelf Expiration Date Model / Serial / Lot Device Watchman Flx 35mm - [id number] Implanted:Qty: 1 on 02/05/2022 by Diamond Teran IV, MD at [facility] [place] [employer] : INTRV CARD [id number] 10/20/2024 [id number] / / [id number] Cath Thermodilution 6fr - [id number] Implanted:Qty: 1 on 07/31/2022 by Franco Mcgregor MD at [facility] [place] [employer] [id number] 04/30/2024 [id number] / / [id number] Mirtaclip G4 - [id number] Implanted:Qty: 1 on 11/16/2022 at [facility] [place] [employer] 06/25/2023 [id number] / / [id number] Clip Delivery Sytem G4 Xtw - [id number] Implanted:Qty: 1 on 11/16/2022 at [facility] [place] [employer] [id number] 08/10/2023 [id number] TW / / [id number] Clip Delivery Sytem G4 Xtw - [id number] Implanted:Qty: 1 on 11/16/2022 at [facility] [place] [employer] [id number] 09/10/2023 [id number] / / [id number] documented as of this encounter Advance [...] and were consensually agreed upon. Care Teams Machine Pie Maker Relationship Specialty Start Date End Date Benny Waite DO [address] [place] [address] PCP - General Internal Medicine 11/25/23 documented as of this encounter
--- OUTSIDE RECORDS SUMMARY | 2024-03-26 09:48 | External Medical Summary | Summary of Care ---
Author Name Unknown Organization [facility] Address [address] [facility] [address] Phone [phone] Care Team Providers Care Transport Company Manager Name Role Phone Benny Waite DO Primary Care Provider [phone] Reason for Visit * Reason Onset Date Comments [facility]: Maintenance 03/20/2024 Encounter Details Date Type Department Care Team (Late st Contact Info) Description 03/20/2024 Telephone [facility], [place] [address] [place] [address] Agatha Reddy, AMBER [address] [facility] [address] [facility]: Maintenance Allergies [...] 137 MCG/SPRAY Nasal SolutionIndication s:Allergies Administer 1 [place] into each nostril 2 times a day [...] night without results. He will go to [facility] for abdominal x-ray today to [...] MVR (mitral valve repair) 11/16/2022 Atherosclerosis of [place] co 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 pectoris 08/11/2022 Severe tricuspid regurgitation 08/11/2022 Gout, arthropathy 07/20/2022 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 02/05/2022 Permanent atrial fibrillation 12/22/2021 Overview: Added automatically from request for surgery [id number] Last Assessment & Plan: S/p Watchman Current [...] in the Comments) Remote Patient Monitoring Vendor: [facility] Device(s): Connected Scale Self - Management Plan [...] MCG/0.3 mL, 12 YRS AND ABOVE, IM ([facility]) 11/29/2023,04/16/2023 Covid-19, Mrna, Lnp-s, Pf, B ivalent, 30 Mcg, IM, 12 yrs and above (Wuiper) 03/17/2022 Pneumococcal Conjugate Vacc, 13 Valent (Prevnar) [...] Telephone Encounter - Agatha Reddy LPN - 03/20/2024 9:27 AM EDT Patient calling to check on Xray results Not processed yet Will call when availaable Denies any issues of SOB States he can't find the pulse ox to transmit readings this am but he feels good Will continue to monitor Follow up call tomana documented in this encounter Plan of Treatment Upcoming Encounters Date Type Department Care Team (Late st Contact Info) Description 03/21/2024 9:30 AM EDT Scheduled Telephone [facility] [address] [place] [address] Coordinator, [facility] [address] [place] [address] 03/23/2024 10:00 AM EDT [facility], [facility] [address] [facility] [place] [address] Myrtle Allen, RN [address] [facility] [place] [address] 04/04/2024 8:00 AM EDT Office Visit Family Practice [address] [place] [address] 293 [place] [address] Benny Waite, DO 293 [facility] [place] [address] 04/25/2024 1:40 PM EST Telemedicine [facility], [facility] [address] [place] [address] Yadira Omalley CRNP [address] [facility] [address] Ines Castro, Community Health Household Cook [address] [place] [address] 05/24/2024 9:15 AM EST Hospital Encounter OR [facility], Operating Room [facility] [address] [place] [address] Amador Christian, DO [address] [place] [address] 05/24/2024 9:15 AM EST - 05/24/2024 9:40 AM EST Surgery OR [facility], Operating Room [facility] [address] [place] [address] Amador Christian, [address] [place] [address] INJECTION SPINE LUMBAR OR SACRAL 07/12/2024 8:00 AM EST Office Visit Cardiology, [facility] [address] [place] [address] Júnior Coppola PA-C [address] [place] [address] 08/14/2024 10:00 AM EST Office Visit Cardiology, [facility] [address] [place] [address] Casimiro Barraza MD [address] [place] [address] Scheduled Procedures Name Priority Associated Diagnoses Date/Ti [...] this encounter Medical Devices Implanted Type Area Hydrostatic Tester Device Identifier Shelf Expiration Date Model / Serial / Lot Device Watchman Flx 35mm - [id number] Implanted:Qty: 1 on 02/05/2022 by Diamond Teran IV, [place] [facility] [place] [employer] : INTRV CARD [id number] 10/20/2024 [id number] / / [id number] Cath Thermodilution 6fr - [id number] Implanted:Qty: 1 on 07/31/2022 by Franco Mcgregor MD at [facility] [place] [employer] [id number] 04/30/2024 [id number] / / [id number] Mirtaclip G4 - [id number] Implanted:Qty: 1 on 11/16/2022 at [facility] [place] [employer] 06/25/2023 [id number] / / [id number] Clip Delivery Sytem G4 Xtw - [id number] Implanted:Qty: 1 on 11/16/2022 at [facility] [place] [employer] [id number] 08/10/2023 [id number] / / [id number] Clip Delivery Sytem G4 Xtw - [id number] Implanted:Qty: 1 on 11/16/2022 at [facility] [place] [employer] [id number] 09/10/2023 [id number] / / [id number] documented as of this encounter Advance [...] and were consensually agreed upon. Care Teams Transport Company Manager Relationship Specialty Start Date End Date Benny Waite DO [address] [place] [address] PCP - General Internal Medicine 11/25/23 documented as of this encounter
--- OUTSIDE RECORDS SUMMARY | 2024-03-26 09:49 | External Medical Summary | Summary of Care ---
Author Name Unknown Organization [facility] Address [address] [place] [address] Phone [phone] Care Team Providers Care Greens Or Grounds Superintendent Name Role Phone Benny Waite DO Primary Care Provider [phone] Reason for Visit * Reason Onset Date Comments [facility]: Maintenance 03/14/2024 Encounter Details Date Type Department Care Team (Late st Contact Info) Description 03/14/2024 Telephone [facility], [facility] [address] [place] [address] Corwin Block, DEX [address] [place] [address] [facility]: Maintenance Allergies Active Allergy Reactions Criticality Noted Date Comments Adhesive Tape 02/04/2017 Duloxetine High 07/13/2023 Other Reaction(s): confusion Levofloxacin 09/01/2019 documented as of this encounter (statuses as of 03/14/2024) Medications Medication Sig Dispensed Refills Start Date [...] 137 MCG/SPRAY Nasal SolutionIndication s:Allergies Administer 1 [place] into each nostril 2 times a day [...] for 3 days 20 Tablet 03/06/2024 Active documented as of this encounter (statuses as of 03/14/2024) Active Problems Problem Noted Date Diagnosed Date [...] night without results. He will go to [facility] for abdominal x-ray today to rule [...] MVR (mitral valve repair) 11/16/2022 Atherosclerosis of [place] co 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 pectoris 08/11/2022 Severe tricuspid regurgitation 08/11/2022 Gout, arthropathy 07/20/2022 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 02/05/2022 Permanent atrial fibrillation 12/22/2021 Overview: Added automatically from request for surgery [id number] Last Assessment & Plan: S/p Watchman Current [...] as of this encounter (statuses as of 03/14/2024) Resolved Problems Problem Noted Date Diagnosed Date [...] as of this encounter (statuses as of 03/14/2024) Immunizations Name Administration Dates Next Due COVID-19 mRNA, LNP-s, No Pre serve, 2-Dose Series (Moderna) 08/20/2020,07/17/2020 COVID-19 mRNA, LNP-s, No Pre serve, 2-Dose Series (Clearbon) 05/14/2021 COVID-19, LNP-s, No Preserve , Robbie-sucrose, Ages 12+ (Pfizer) 11/04/2021 COVID-19, MRNA-LNP, 23-24, P F, 30 MCG/0.3 mL, 12 YRS AND ABOVE, IM ([employer]) 11/29/2023,04/16/2023 Covid-19, Mrna, Lnp-s, Pf, B ivalent, [...] No 07/30/2023 Does the household have a [facility] source of income? (Household - for ages [...] Telephone Encounter - Yadira Omalley CRNP - 03/14/2024 12:31 PM EDT --Agree with DTP. --Would recommend home COVID test. --He should wear oxygen to maintain SpO2 >90% --I placed CXR order to rule out any acute issue--please see if he can report to clinic (he is not homebound and drives) --he does not sound like he is in any distress and feel we can just follow up with a phone call tomorrow * Telephone Encounter - Claribel Quiles RN - 03/14/2024 12:05 PM EDT PC from pt. Returning call Yea Communication Note Name: Nikolas Silvestre Situation: 83 yr old pt lives in [facility]. Pt with HF exacerbation symptoms. Low O2 sats Background: CHF, AFIB, watchman, Chronic resp failure, back pain, CVA Assessment: pt has a weight gain of 4.6 lbs in one week. O2 sats 88% on RA. HR 68. Pt reports abd bloating with firm abdomen. Pt with increased fatigue. Denies cough, LE edema, chest pain. Reports a sore throat. Pt is afebrile. Denies nausea or vomiting. Eating MOW meals. Reporting ongoing lower back pain. Not relieved with tylenol or heating pad Recommendation: advised to start DTP and apply O2 to keep O2 sat above 90%. Recommend a HV today ortomorrow. TT message sent to Myrtle MARTINEZ with request * Telephone Encounter - Antonietta Carter RN - 03/14/2024 11:48 AM EDT Call rec'd from pt returning call to [facility]. Pt was called (see TE) re: AMC O2 readings. Spoke with pt, no distress noted, pt speaking in full sentences without apparent difficulty. Pt reports he is not currently wearing O2. When asked to check SpO2 while on the phone, line disconnected and call dropped. Call back immediately made to pt, no answer. Unable to leave message. * Telephone Encounter - Claribel Quiles RN - 03/14/2024 11:45 AM EDT Return PC to the pt. No answer. Unable to leave a VM * Telephone Encounter - Charlotte Medel RN - 03/14/2024 11:38 AM EDT Pt called back. I he hung up on me as he states he is not satisfied with speaking to me related to a misspelling ofhis last name. He reports he wants to talk to someone about his AMC readings. Teams message sent to Intake. Charlotte Medel RN [facility] Intake [phone] * Telephone Encounter - Agatha Reddy LPN - 03/14/2024 11:13 AM EDT Images from the original note were not included. Call back to patient UTC on home phone Call to patient UTC VM full on cell And home phone rings and rings then goes busy doctor of podiatric medicine will try later * Telephone Encounter - Corwin Block OSA - 03/14/2024 11:01 AM EDT PC from pt asking to speak to someone regarding his readings last night. SPA ASSISTANT MANAGER asked that a nurse from the enrollment chat via Teams would be able to call pt back to follow up. documented in this encounter Plan of Treatment Upcoming Encounters Date Type Department Care Team (Late st Contact Info) Description 03/18/2024 11:55 AM EDT Imaging Radiology [address] 132 [facility] [place] [address] 03/18/2024 1:00 PM EDT Imaging Radiology [address] 132 [facility] [place] [address] 03/23/2024 10:00 AM EDT [facility] [place], [facility] 132 [facility] [place] [address] Myrtle Allen RN 132 [facility] [place] [address] 04/04/2024 8:00 AM EDT Office Visit Family Practice [facility] [place] 293 [place] [address] Benny Waite, 293 [facility] [address] 04/25/2024 1:40 PM EST [facility]medicine [facility] 132 [facility] [place] [address] Yadira Omalley CRNP 132 [facility] [place] [address] Ines Castro, Community Health Rn First Assist [address] [place] [facility] [address] 05/24/2024 9:15 AM EST Hospital Encounter [facility], Operating Room [facility] [address] [place] [phone] Amador Christian, DO [address] [place] [phone] 05/24/2024 9:15 AM EST - 05/24/2024 9:40 AM EST Surgery OR [facility], Operating Room [facility] [address] [place] [address] Amador Christian, DO [address] [place] [phone] INJECTION SPINE LUMBAR OR SACRAL 07/12/2024 8:00 AM EST Office Visit Cardiology, [facility] [address] [place] [address] Júnior Coppola PA-C [address] [place] [address] 08/14/2024 10:00 AM EST Office Visit Cardiology, [facility] [address] [place] [address] Casimiro Barraza MD [address] [place] [address] Scheduled Procedures Name Priority Associated Diagnoses Date/Ti [...] this encounter Medical Devices Implanted Type Area Research Center Partner Device Identifier Shelf Expiration Date Model / Serial / Lot Device Watchman Flx 35mm - [id number] Implanted:Qty: 1 on 02/05/2022 by Diamond Teran IV, MD at [facility] [place] [employer] : INTRV CARD [id number] 10/20/2024 [id number] / / [id number] Cath Thermodilution 6fr - [id number] Implanted:Qty: 1 on 07/31/2022 by Franco Mcgregor MD at [facility] [place] [employer] [id number] 04/30/2024 [id number] / / [id number] Mirtaclip G4 - [id number] Implanted:Qty: 1 on 11/16/2022 at [facility] [place] [employer] 06/25/2023 [id number] / / [id number] Clip Delivery Sytem G4 Xtw - [id number] Implanted:Qty: 1 on 11/16/2022 at [facility] [place] [employer] [id number] 08/10/2023 [id number] / / [id number] Clip Delivery Sytem G4 Xtw - [id number] Implanted:Qty: 1 on 11/16/2022 at [facility] [place] [employer] [id number] 09/10/2023 [id number] / / [id number] documented as of this encounter Advance [...] and were consensually agreed upon. Care Teams Greens Or Grounds Superintendent Relationship Specialty Start Date End Date Benny Waite DO [address] [place] [address] PCP - General Internal Medicine 11/25/23 documented as of this encounter
--- OUTSIDE RECORDS SUMMARY | 2024-03-26 09:49 | External Medical Summary | Summary of Care ---
Author Name Unknown Organization [facility] Address [address] [facility] [place] [address] Phone [phone] Care Team Providers Care Pv Design And Installation Technician Name Role Phone Benny Waite DO Primary Care Provider [phone] Reason for Visit * Reason Onset Date Comments [facility]: Maintenance 03/13/2024 Encounter Details Date Type Department Care Team (Late st Contact Info) Description 03/13/2024 Telephone [facility], [facility] [address] [facility] [place] [address] Irlanda Real, SUPPLY COORDINATOR [address] [facility] [place] [address] [facility]: Maintenance Allergies Active Allergy [...] 137 MCG/SPRAY Nasal SolutionIndication s:Allergies Administer 1 [place] into each nostril 2 times a day [...] without results. 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 (Household - for [...] Miscellaneous Notes * Telephone Encounter - Irlanda RealAMBER - 03/13/2024 12:53 PM EDT Images from the original note were not included. [facility] at Home Remote Patient Monitoring Able to contact patient: Trigger type: Abnormal reading(s): AMC (Advanced Monitored Caregiving): Pulse Oximeter: Oxygen saturation per oximeter: 82 measured while on room air Trigger priority per AMC: high Baseline oxygen requirements: 2L LPM. Diagnosis related to oxygen use: CHF Increased oxygen needs in past 24 hours: No Scale: Trigger weight: 219.1 lbs; weight increased 2.2 lbs in 1 day(s) Trigger priority per AMC: - Patient takes diuretic medication: Yes, reviewed current diuretic use: Name of medication: furosemide Dose: 40 mg Frequency: daily Symptom review: SOB: + Cough: + Diet Reviewed: Yes. Patient has had [...] 90 WITH symptoms Additional risk selection justification: Called pt to F/U on AMC triggers. Pt c/o continued sore throat and cough. Cough is productive of clear mucous in the morning.He is having difficulty getting comfortable at night to sleep due to back pain. He is unsure if he has increased SOB or if he feels SOB due to pain. Pt did not appear SOB during call. When Sp02 level checked reading 82%. He was not wearing oxygen. Instructed pt to apply oxygen as ordered. He denies increased edema or abdominal bloating. He has not tried heating pad or topical analgesics. Encouraged pt to try heating pad as recommended. He is unable to apply topical without assistance. Last BM a few days ago. Denies any missed do ses of medication. Adherent to sodium/fluid restriction. Encouraged to call [place] with any concerns. Overall risk and identified plan: High risk: Route to RNCM (Registered Nurse Comsec Manager) and Advance Practitioner documented in this encounter Plan of Treatment Upcoming Encounters Date Type Department Care Team ([facility] st Contact Info) Description 03/15/2024 11:30 AM EDT Scheduled Telephone [facility], [facility] 132 [facility] [place] [address] Coordinator, [facility] 132 [facility] [place] [address] 03/16/2024 12:00 PM EDT Scheduled Telephone [facility], [facility] 132 [facility] [place] [address] Coordinator, [facility] 132 [facility] [place] [address] 03/18/2024 11:55 AM EDT Imaging Radiology [address] 132 [facility] [place] [address] 03/18/2024 1:00 PM EDT Imaging Radiology [address] 132 [facility] [place] [address] 03/23/2024 10:00 AM EDT Home Visit [facility], [facility] [address] [facility] [place] [address] Myrtle Allen RN [facility] [address] 04/04/2024 8:00 AM EDT Office Visit Family Practice 65 [facility] [place] [address] [place] [address] Benny Waite, 293 [facility] [place] [address] 04/25/2024 1:40 PM EST Telemedicine [facility], [facility] 132 [facility] [place] [address] Yadira [facility]malley CRNP [facility] [address] Ines Castro, Community Health Receiving And Processing Supervisor [address] [place] [address] 05/24/2024 9:15 AM EST Hospital Encounter OR [facility], Operating Room [facility] [address] [place] [phone] Amador Christian, DO [address] [place] [phone] 05/24/2024 9:15 AM EST - 05/24/2024 9:40 AM EST Surgery OR [facility], Operating Room [facility] [address] [place] [address] Amador Christian, DO [address] [place] [address] INJECTION SPINE LUMBAR OR SACRAL 07/12/2024 8:00 AM EST Office Visit Cardiology, [facility] [address] [place] [address] Júnior Coppola PA-C [address] [place] [address] 08/14/2024 10:00 AM EST Office Visit Cardiology, [facility] [address] [place] [address] Casimiro Barraza MD [address] [place] [address] Scheduled Procedures Name Priority Associated Diagnoses Date/Ti [...] encounter Medical Devices Implanted Type Area Senior Front End Web Developer Device Identifier Shelf Expiration Date Model / Serial / Lot Device Watchman Flx 35mm - [id number] Implanted:Qty: 1 on 02/05/2022 by Diamond Teran IV, MD at [facility] [place] [employer] : INTRV CARD [id number] 10/20/2024 [id number] / / [id number] Cath Thermodilution 6fr - [id number] Implanted:Qty: 1 on 07/31/2022 by Franco Mcgregor MD at [facility] [place] [employer] [id number] 04/30/2024 [id number] / / [id number] Mirtaclip G4 - [id number] Implanted:Qty: 1 on 11/16/2022 at [facility] [place] [employer] 06/25/2023 [id number] / / [id number] Clip Delivery Sytem G4 Xtw - [id number] Implanted:Qty: 1 on 11/16/2022 at [facility] [place] [employer] [id number] 08/10/2023 [id number] / / [id number] Clip Delivery Sytem G4 Xtw - [id number] Implanted:Qty: 1 on 11/16/2022 at [facility] [place] [employer] [id number] 09/10/2023 [id number] / / [id number] documented as of this encounter Advance [...] and were consensually agreed upon. Care Teams Pv Design And Installation Technician Relationship Specialty Start Date End Date Benny Waite DO [address] [facility] [place] [address] PCP - General Internal Medicine 11/25/23 documented as of this encounter
--- OUTSIDE RECORDS SUMMARY | 2024-03-26 09:49 | External Medical Summary | Summary of Care ---
Author Name Unknown Organization [facility] Address [address] [place] [address] Phone [phone] Care Team Providers Care Etl Application Developer Name Role Phone Benny Waite DO Primary Care Provider [phone] Reason for Visit * Reason Onset Date Comments [facility]: Maintenance 03/14/2024 Encounter Details Date Type Department Care Team (Late st Contact Info) Description 03/14/2024 Telephone [facility] [address] [place] [address] Corwin Block, DEX [address] [place] [address] [facility]: Maintenance Allergies [...] 137 MCG/SPRAY Nasal SolutionIndication s:Allergies Administer 1 [place] into each nostril 2 times a day [...] He will go to [facility] for abdominal x-ray today to rule [...] MVR (mitral valve repair) 11/16/2022 Atherosclerosis of [place] co 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 pectoris 08/11/2022 Severe tricuspid regurgitation 08/11/2022 Gout, arthropathy 07/20/2022 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 02/05/2022 Permanent atrial fibrillation 12/22/2021 Overview: Added automatically from request for surgery [id number] Last Assessment & Plan: S/p Watchman Current [facility] Device(s): Connected Scale Self [...] mRNA, LNP-s, No Pre serve, 2-Dose Series ([employer]) 05/14/2021 COVID-19, LNP-s, No Preserve , Robbie-sucrose, Ages 12+ (Pfizer) 11/04/2021 COVID-19, MRNA-LNP, 23-24, P F, 30 MCG/0.3 mL, 12 YRS AND ABOVE, IM ([employer]) 11/29/2023,04/16/2023 Covid-19, Mrna, Lnp-s, Pf, B ivalent, [...] No 07/30/2023 Does the household have a [facility] source [facility] income? (Household [...] Addendum Note - Yadira Omalley CRNP - 03/14/2024 1:25 PM EDTAddended by: YADIRA OMALLEY on: 03/14/2024 01:25 PM Modules accepted: Orders * Telephone Encounter [...] Situation: 83 yr old pt lives in [facility]. Pt with HF exacerbation symptoms. Low O2 [...] Call rec'd from pt returning call to [facility]. Pt was called (see TE) re: [facility] O2 readings. Spoke with pt, no distress [...] message sent to Intake. Charlotte Medel RN [facility] Intake [phone] * Telephone Encounter - Agatha Reddy LPN - 03/14/2024 11:13 AM EDT Images from the original note were not included. Call back to patient UTC on home phone Call to patient UTC VM full on cell And home phone rings and rings then goes busy kalsominer will try later * Telephone Encounter - Corwin Block OSA - 03/14/2024 11:01 AM EDT PC from pt asking to speak to someone regarding his readings last night. GATE PERSON asked that a nurse from the enrollment chat via Teams would be able to call pt back to follow up. documented in this encounter Plan of Treatment Upcoming Encounters Date Type Department Care Team (Late st Contact Info) Description 03/18/2024 11:55 AM EDT Imaging Radiology [address] 132 [facility] [place] [address] 03/18/2024 1:00 PM EDT Imaging Radiology [address] 132 [facility] [place] [address] 03/23/2024 10:00 AM EDT Home Visit [facility] 132 [facility] [place] [address] Myrtle Allen, RN 132 [facility] [place] [address] 04/04/2024 8:00 AM EDT Office Visit Family Practice 65 [facility] [address] [place] [address] Benny Waite, DO 293 [place] [address] 04/25/2024 1:40 PM EST Telemedicine [facility], [facility] [address] [place] [address] Yadira Omalley CRNP [address] [place] [address] Ines Castro, Community Health Slab Polisher [address] [place] [address] 05/24/2024 9:15 AM EST Hospital Encounter OR [facility], Operating Room [facility] [address] [place] [phone] Amador Christian, [address] [place] [address] 05/24/2024 9:15 AM EST - 05/24/2024 9:40 AM EST Surgery OR [facility], Operating Room [facility] [address] [place] [phone] Amador Christian, [address] [place] [phone] INJECTION SPINE LUMBAR OR SACRAL 07/12/2024 8:00 AM EST Office Visit Cardiology, [facility] [address] [place] [address] Júnior Coppola PAClifC [address] [place] [address] 08/14/2024 10:00 AM EST Office Visit Cardiology, [facility] [address] [place] [address] Casimiro Barraza MD [address] [place] [address] Scheduled Orders Name Type Priority Associated Diagnoses Orde r Schedule XR CHEST 2 VIEWS Medical Imaging Routine CHF (congestive heart failure), NYHA class I, chronic, diastolic (HCC) Chronic respiratory failure with hypoxia (HCC) Ordered: 03/14/2024 Scheduled Procedures Name Priority Associated Diagnoses Date/Ti [...] this encounter Medical Devices Implanted Type Area Silo Painter Device Identifier Shelf Expiration Date Model / Serial / Lot Device Watchman Flx 35mm - [id number] Implanted:Qty: 1 on 02/05/2022 by Diamond Teran IV, [place] [facility] [place] [employer] : INTRV CARD [id number] 10/20/2024 [id number] 50 / / [id number] Cath Thermodilution 6fr - [id number] Implanted:Qty: 1 on 07/31/2022 by Franco Mcgregor MD at [facility] [place] [employer] [id number] 04/30/2024 [id number] / / [id number] Mirtaclip G4 - [id number] Implanted:Qty: 1 on 11/16/2022 at [facility] [place] [employer] 06/25/2023 [id number] / / [id number] Clip Delivery Sytem G4 Xtw - [id number] Implanted:Qty: 1 on 11/16/2022 at [facility] [place] [employer] [id number] 08/10/2023 [id number] / / [id number] Clip Delivery Sytem G4 Xtw - [id number] Implanted:Qty: 1 on 11/16/2022 at [facility] [place] [employer] [id number] 09/10/2023 [id number] / / [id number] documented as of this encounter Visit Diagnoses Diagnosis CHF (congestive heart failure), NYHA class I, chronic, diastolic (HCC)- Primary Chronic respiratory failure with hypoxia (HCC) Chronic respiratory failure Spinal stenosis of lumbar region with neurogenic [...] and were consensually agreed upon. Care Teams Etl Application Developer Relationship Specialty Start Date End Date Benny Waite DO [address] [facility] [place] [address] PCP - General Internal Medicine 11/25/23 documented as of this encounter
--- OUTSIDE RECORDS SUMMARY | 2024-03-26 09:49 | External Medical Summary | Summary of Care ---
Author Name Unknown Organization [facility] Address [address] [facility] [address] Phone [phone] Care Team Providers Care Spring Crater Name Role Phone Benny Waite DO Primary Care Provider [phone] Encounter Details Date Type Department Care Team (Late st Contact Info) Description 03/14/2024 3:30 PM EDT Nurse Only Family Practice 65 [facility] [address] [place] [address] College, Nurse [facility] Prac 65 [facility] 293 [place] [address] Allergies Active Allergy Reactions Criticality Noted Date [...] 137 MCG/SPRAY Nasal SolutionIndication s:Allergies Administer 1 [place] into each nostril 2 times a day [...] without results. 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 documented in this encounter Plan of Treatment Upcoming Encounters Date Type Department Care Team (Late st Contact Info) Description 03/15/2024 11:30 AM EDT Scheduled Telephone [facility] [place], [facility] [address] [place] [address] Coordinator, [facility] [place] [address] 03/16/2024 12:00 PM EDT Scheduled Telephone [facility] [address] [place] [address] Coordinator, [facility] 132 [place] [address] 03/18/2024 11:55 AM EDT Imaging Radiology [address] 132 [place] [address] 03/18/2024 1:00 PM EDT Imaging Radiology [address] 132 [place] [address] 03/23/2024 10:00 AM EDT [facility], [facility] [address] Myrtle Allen, RN [address] [facility] [place] [address] 04/04/2024 8:00 AM EDT Office Visit Family Practice [address] [place] [address] 293 [facility] [place] [address] Benny Waite, DO 293 [place] [address] 04/25/2024 1:40 PM EST Telemedicine [facility], [facility] [place] [address] Yadira Omalley CRNP 132 [facility] [address] Ines Castro, Community Health Braille Duplicating Machine Operator [address] [place] [address] 05/24/2024 9:15 AM EST Hospital Encounter [facility], Operating Room [facility] [address] [place] [phone] Amador Christian, DO [address] [place] [address] 05/24/2024 9:15 AM EST - 05/24/2024 9:40 AM EST Surgery OR [facility], Operating Room [facility] [address] [place] [phone] Amador Christian, DO [address] [place] [phone] INJECTION SPINE LUMBAR OR SACRAL 07/12/2024 8:00 AM EST Office Visit Cardiology, [facility] [address] [place] [address] Júnior Coppola PA-C [address] [place] [address] 08/14/2024 10:00 AM EST Office Visit Cardiology, [facility] [address] [place] [address] Casimiro Barraza MD [address] [place] [address] Pending Results Name Type Priority Associated Diagnoses Date /Time INFLUENZA A/B RSV SARS-COV2,PCR Lab Routine URI (upper respiratory infection) 03/14/2024 3:22 PM EDT Scheduled Procedures Name Priority Associated Diagnoses Date/Ti [...] 04/20/2018 Zoster Vaccines Completed 12/13/2019, 0208/2019, 04/18/2015 HPV (Gardasil) Vaccine Aged Out No lo nger eligible based on patient's age to complete this topic Hepatitis B Vaccine Aged Out No longe r eligible based on patient's age to complete this topic MENINGOCOCCAL (MENACTRA/MENVEO) Aged Out No longer eligible based on patient's age to complete this topic documented as of this encounter Medical Devices Implanted Type Area Mobile Security Architect Device Identifier Shelf Expiration Date Model / Serial / Lot Device Watchman Flx 35mm - [id number] Implanted:Qty: 1 on 02/05/2022 by Diamond Teran IV, MD at [facility] [facility] [employer]yano : INTRV CARD [id number] 10/20/2024 [id number] / / [id number] Cath Thermodilution 6fr - [id number] Implanted:Qty: 1 on 07/31/2022 by Franco Mcgregor MD at [facility] [employer] [id number] 04/30/2024 [id number] / / [id number] Mirtaclip G4 - [id number] Implanted:Qty: 1 on 11/16/2022 at [facility] [employer] 06/25/2023 [id number] / / [id number] Clip Delivery Sytem G4 Xtw - [id number] Implanted:Qty: 1 on 11/16/2022 at [facility] [employer] [id number] 08/10/2023 [id number] TW / / [id number] Clip Delivery Sytem G4 Xtw - [id number] Implanted:Qty: 1 on 11/16/2022 at [facility] [employer] [id number] 09/10/2023 [id number] / / [id number] documented as of this encounter Visit Diagnoses Diagnosis URI (upper respiratory infection)- Primary Acute upper respiratory infections of unspecified site Spinal stenosis of lumbar region with neurogenic [...] and were consensually agreed upon. Care Teams Spring Crater Relationship Specialty Start Date End Date Benny Waite DO 293 [place] [address] PCP - General Internal Medicine 11/25/23 documented as of this encounter
--- OUTSIDE RECORDS SUMMARY | 2024-03-26 09:49 | External Medical Summary | Summary of Care ---
Author Name Unknown Organization [facility] Address [address] [place] [address] Phone [phone] Care Team Providers Care Supervisor Fabrication Department Name Role Phone Benny Waite DO Primary Care Provider [phone] Reason for Visit * Reason Onset Date Comments Follow Up 03/14/2024 Encounter Details Date Type Department Care Team (Late st Contact Info) Description 03/14/2024 Telephone [facility]iology [facility] [address] [place] [address] Bebeto Carranza, JJ [address] [place] [address] Follow Up Allergies Active Allergy Reactions Criticality Noted Date [...] 137 MCG/SPRAY Nasal SolutionIndication s:Allergies Administer 1 [place] into each nostril 2 times a day [...] night without results. 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 02/05/2022 Permanent atrial fibrillation 12/22/2021 Overview: Added automatically from request for surgery [id number] Last Assessment & Plan: S/p Watchman Current [...] Comments) Remote Patient Monitoring Vendor: [facility] [place] Device(s): Connected Scale Self - [...] encounter Miscellaneous Notes * Telephone Encounter - Bebeto Carranza DNP - 03/14/2024 6:19 PM EDT Watchman Phone follow-up Interval postprocedure: 2-year Diagnostic Studies since last encounter ECHO: TTE 10/18/2023 LVEF: 55-59% BO: none Device Margin Residual Leak: n/a LABS: (11/29/2023) Creatinine: 1.2 Hemoglobin: 15.5 Carroll Scale: 2 Chet Index Eval: Some limitations due to only having one hand. Has some help with bathing Current Outpatient Medications Medication Sig Dispense Refill Acetaminophen 500 MG Oral Tablet Take 2 Tablets by mouth in the morning and 2 Tablets before bedtime. TAKE 2 IN THE MORNING AND 2 IN THE EVENING. Docusate Sodium 100 MG Oral Capsule Take 1 Capsule by mouth in the morning and 1 Capsule before bedtime. Allopurinol 300 MG Oral Tablet (Zyloprim) Take 1 Tablet by mouth in the morning. 100 Tablet 3 Finasteride 5 MG Oral Tablet (Proscar) TAKE ONE TABLET BY MOUTH EVERY MORNING (Patient taking differently: Take 1 Tablet by mouth every evening.) 100 Tablet 2 Gabapentin 300 MG Oral Capsule (Neurontin) TAKE ONE CAPSULE BY MOUTH THREE TIMES A DAY 300 Capsule 3 Metoprolol Succinate ER 25 MG Oral Tablet Extended Release 24 Hour (toPROL XL) Take 1 Tablet by mouth daily. 90 Tablet 3 Meclizine HCl 12.5 MG Oral Tablet (Antivert) Take 1 Tablet by mouth 2 times a day as needed for Dizziness. 60 Tablet 3 Furosemide 40 MG Oral Tablet (Lasix) Take 1 Tablet by mouth in the morning. 100 Tablet 3 oxygen IN GAS Administer 2 L/min(Oxygen) into nostril continuous. 1 Each 0 DIURETIC TITRATION PLAN If no improvement on day 3, contact heart failure managing provider. 1 Each0 Fluticasone Propionate 50 MCG/ACT Nasal Suspension (Flonase) Administer 2 Sprays into nostril in the morning and 2 Sprays before bedtime. 16 g 2 Azelastine HCl 137 MCG/SPRAY Nasal Solution Administer 1 [place] into each nostril 2 times a day as needed for Allergies (allergy symptoms). 30 mL 3 Ketoconazole 2 % External Cream Apply 1 Application topically to affected area as needed for Itching. Apply to affected area Pantoprazole Sodium 40 MG Oral Tablet Delayed Release (Protonix) Take 1 Tablet by mouth in the morning. 90 Tablet 3 Rosuvastatin Calcium 20 MG Oral Tablet (Crestor) Take 1 Tablet by mouth daily. 90 Tablet 3 QUEtiapine Fumarate 25 MG Oral Tablet (SEROquel) Take 0.5 Tablets by mouth at bedtime. 50 Tablet 3 oxygen IN GAS Administer 2 L/min(Oxygen) into nostril continuous. Portable oxygen concentrator. Please remove his tanks Needs to keep the in home concentrator 1 Each 0 Clopidogrel Bisulfate 75 MG Oral Tablet (Plavix) Take 1 Tablet by mouth in the morning. 100 Tablet 3 predniSONE 20 MG Oral Tablet (Deltasone) Take 3 tabs for 3 days, 2 tabs for 3 days, 1 tab for 3 days, 1/2 tab for 3 days 20 Tablet 0 No current facility-administered medications for this visit. Follow up Anticoagulation Therapy: Remains on Plavix but ASA was stopped this past summer. Any follow up events: He underwent Mitral Clip on 07/31/2022. If follow up events adjudication: none Bebeto Carranza DNP, CRNP Department of Cardiology/[place] [address] Cc: Antonietta Abdalla RN documented in this encounter Plan of Treatment Upcoming Encounters Date Type Department Care Team (Late st Contact Info) Description 03/15/2024 11:30 AM EDT Scheduled Telephone [facility], [facility] 132 [facility] [place] [address] Coordinator, [facility] [address] 03/16/2024 12:00 PM EDT Scheduled Telephone [facility], [address] [place] [address] Coordinator, [address] [place] [address] 03/18/2024 11:55 AM EDT Imaging Radiology [address] 132 [facility] [place] [address] 03/18/2024 1:00 PM EDT Imaging Radiology [address] 132 [facility] [place] [address] 03/23/2024 10:00 AM EDT Home Visit [facility], [facility] 132 [facility] [place]ANJ[place] [address] Myrtle Allne RN 132 [facility] [address] 04/04/2024 8:00 AM EDT Office Visit Family Practice [address] [place] [address], [place] 293 [place] [address] Benny aWite, 293 [place] [address] 04/25/2024 1:40 PM EST Telemedicine [facility], [facility] 132 [facility] [place] [address] Yadira Omalley CRNP 132 [facility] [address] Ines Castro, Community Health Assurance Sourcing Manager [address] [place] [facility] [place] [address] 05/24/2024 9:15 AM EST Hospital Encounter OR [facility], Operating Room [facility] [address] [place] [address] Amador Christian, DO [address] [place] [phone] 05/24/2024 9:15 AM EST - 05/24/2024 9:40 AM EST Surgery OR [facility], Operating Room [facility] [address] [place] [phone] Amador Christian, DO [address] [place] [address] INJECTION SPINE LUMBAR OR SACRAL 07/12/2024 8:00 AM EST Office Visit Cardiology, [facility] [address] [place] [address] Júnior Coppola PAClifC [address] [place] [address] 08/14/2024 10:00 AM EST Office Visit Cardiology, [facility] [address] [place] [address] Casimiro Barraza MD [address] [place] [address] Scheduled Procedures Name Priority Associated Diagnoses Date/Ti [...] this encounter Medical Devices Implanted Type Area Thickener Operator Device Identifier Shelf Expiration Date Model / Serial / Lot Device Watchman Flx 35mm - [id number] Implanted:Qty: 1 on 02/05/2022 by Diamond Teran IV, MD at [facility] [employer] : INTRV CARD [id number] 10/20/2024 [id number] 50 / / [id number] Cath Thermodilution 6fr - [id number] Implanted:Qty: 1 on 07/31/2022 by Franco Mcgregor MD at [facility] [employer] [id number] 04/30/2024 [id number] / / [id number] Mirtaclip G4 - [id number] Implanted:Qty: 1 on 11/16/2022 at [facility] [employer] 06/25/2023 [id number] / / [id number] Clip Delivery Sytem G4 Xtw - [id number] Implanted:Qty: 1 on 11/16/2022 at [facility] [employer] [id number] 08/10/2023 [id number] / / [id number] Clip Delivery Sytem G4 Xtw - [id number] Implanted:Qty: 1 on 11/16/2022 at [facility] [employer] [id number] 09/10/2023 [id number] / / [id number] documented as of this encounter Advance [...] were consensually agreed upon. Care Teams Supervisor Fabrication Department Relationship Specialty Start Date End Date Benny Waite DO [address] [place] [address] PCP - General Internal Medicine 11/25/23 documented as of this encounter
--- OUTSIDE RECORDS SUMMARY | 2024-03-26 09:49 | External Medical Summary | Summary of Care ---
Author Name Unknown Organization [facility] Address [address] [facility] [place] [address] Phone [phone] Care Team Providers Care Bead Worker Sewing Name Role Phone Benny Waite DO Primary Care Provider [phone] Reason for Visit * Reason Onset Date Comments [facility]: Maintenance 03/10/2024 Encounter Details Date Type Department Care Team (Late st Contact Info) Description 03/10/2024 Telephone [facility], [facility] [address] [facility] [place] [address] Claribel Quiles, MICHELLE [address] [facility] JON [place] [phone] [facility]: Maintenance Allergies Active Allergy [...] 137 MCG/SPRAY Nasal SolutionIndication s:Allergies Administer 1 [place] into each nostril 2 times a day [...] night without results. He will go to [facility] for abdominal x-ray today to [...] MVR (mitral valve repair) 11/16/2022 Atherosclerosis of [place] co 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 pectoris 08/11/2022 Severe tricuspid regurgitation 08/11/2022 Gout, arthropathy 07/20/2022 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 02/05/2022 Permanent atrial fibrillation 12/22/2021 Overview: Added automatically from request for surgery [id number] Last Assessment & Plan: S/p Watchman Current [...] [facility] [place] Device(s): Connected Scale Self - Management [...] mRNA, LNP-s, No Pre serve, 2-Dose Series ([employer]) 05/14/2021 COVID-19, LNP-s, No Preserve , Robbie-sucrose, Ages 12+ (Pfizer) 11/04/2021 COVID-19, MRNA-LNP, 23-24, P F, 30 MCG/0.3 mL, 12 YRS AND ABOVE, IM ([employer]On-Comirnat) 11/29/2023,04/16/2023 Covid-19, Mrna, Lnp-s, Pf, B ivalent, [...] No 07/30/2023 Does the household have a mimbres memorial hospitallar source of income? (Household - for ages [...] Telephone Encounter - Claribel Quiles RN - 03/10/2024 2:35 PM EDT Call received from the pt. Calling to express frustration with his ongoing chronic back pain. Pt states that he called his PCP yesterday with c/o of back pain asking for some additional medication to relieve his pain but PCP did not want to order the pt any further pain meds. Pt states that he has chronic 5/10 back pain. Takes gabapentin which is states that he has been on for 10 yrs and it is no longer effective States that he is not able to carry his O2 backpack anymore due to the pain Pt not due for back injections until May. Pt asking if anything can be done to give him relief. Reiterated Dr. Javed's recommendations from 03/03/24 telephone encounter. can maximize tylenol 1 g qid, use heating pad, topical analgesics like biofreeze. Make sure she is taking africa 800 mg tid as rx'd. States that he talked with a nurse about getting an abdominal binder and asked the status of that. Will forward request for binder to pt's care team documented in this encounter Plan of Treatment Upcoming Encounters Date Type Department Care Team (Late st Contact Info) Description 03/15/2024 11:30 AM EDT Scheduled Telephone [facility], [facility] 132 [facility] [place] [address] Coordinator, [facility] [place] [address] 03/16/2024 12:00 PM EDT Scheduled Telephone [facility], [facility] 132 [facility] [place] [address] Coordinator, [facility] 132 [facility] [place] [address] 03/18/2024 11:55 AM EDT Imaging Radiology [address] 132 [facility] [place] [address] 03/18/2024 1:00 PM EDT Imaging Radiology [address] 132 [facility] [place] [address] 03/23/2024 10:00 AM EDT Home Visit [facility], [facility] 132 [facility] [place] [address] Myrtle Allen RN 132 [facility] [address] 04/04/2024 8:00 AM EDT Office Visit Family Practice [address], [place] 293 [place] [address] Benny Waite, 293 [facility] [place] [address] 04/25/2024 1:40 PM EST Telemedicine [facility], [facility] 132 [facility] [place] [address] Yadira Omalley CRNP 132 [facility] [address] Ines Castro, Community Health Caustics Loader [address] [place], [place] [address] 05/24/2024 9:15 AM EST Hospital Encounter OR [facility], Operating Room [facility] [address] [place] [address] Amador Christian, DO [address] [place] [phone] 05/24/2024 9:15 AM EST - 05/24/2024 9:40 AM EST Surgery OR [facility], Operating Room [facility] [address] [place] [address] Amador Christian, DO [address] [place] [address] INJECTION SPINE LUMBAR OR SACRAL 07/12/2024 8:00 AM EST Office Visit Cardiology, [facility] [address] [place] [address] Júnior Coppola PA-C [address] [place] [address] 08/14/2024 10:00 AM EST Office Visit Cardiology, [facility] [address] [place] [address] Casimiro Barraza MD [address] [place] [address] Scheduled Procedures Name Priority Associated Diagnoses Date/Ti [...] this encounter Medical Devices Implanted Type Area Bicycle Ii Assembler Device Identifier Shelf Expiration Date Model / Serial / Lot Device Watchman Flx 35mm - [id number] Implanted:Qty: 1 on 02/05/2022 by Diamond Teran IV, MD at [facility] [employer] : INTRV CARD [id number] 10/20/2024 [id number] / / [id number] Cath Thermodilution 6fr - [id number] Implanted:Qty: 1 on 07/31/2022 by Franco Mcgregor MD at [facility] [employer] [id number] 04/30/2024 [id number] / / [id number] Mirtaclip G4 - [id number] Implanted:Qty: 1 on 11/16/2022 at [facility] [employer] 06/25/2023 [id number] / / [id number] Clip Delivery Sytem G4 Xtw - [id number] Implanted:Qty: 1 on 11/16/2022 at [facility] [employer] [id number] 08/10/2023 [id number] / / [id number] Clip Delivery Sytem G4 Xtw - [id number] Implanted:Qty: 1 on 11/16/2022 at [facility] [employer] [id number] 09/10/2023 [id number] / / [id number] documented as of this encounter Advance [...] and were consensually agreed upon. Care Teams Bead Worker Sewing Relationship Specialty Start Date End Date Benny Waite DO [address] [place] [address] PCP - General Internal Medicine 11/25/23 documented as of this encounter
--- OUTSIDE RECORDS SUMMARY | 2024-03-26 09:49 | External Medical Summary | Summary of Care ---
Author Name Unknown Organization [facility] Address [address] [place] [address] Phone [phone] Care Team Providers Care General Claims Agent Name Role Phone Benny Waite DO Primary Care Provider [phone] Encounter Details Date Type Department Care Team (Late st Contact Info) Description 03/14/2024 Telephone Family Practice 65 [facility] [place] [address] [place] [address] Benny Waite DO [address] [place] [address] Allergies Active Allergy Reactions Criticality [...] 137 MCG/SPRAY Nasal SolutionIndication s:Allergies Administer 1 [place] into each nostril 2 times a day [...] go to [facility] for abdominal x-ray today [...] Overview: Added automatically from request for surgery [id number] Last Assessment & Plan: S/p Watchman Current [...] MCG/0.3 mL, 12 YRS AND ABOVE, IM (QuadROI-Comirnaty) 11/29/2023,04/16/2023 Covid-19, Mrna, Lnp-s, Pf, B ivalent, [...] Telephone Encounter - Benny Waite DO - 03/14/2024 1:49 PM EDT Noted * Telephone Encounter - Marnie Baker LPN - 03/14/2024 1:42 PM EDT Nikolas called, states that [facility] would like him to have a covid swab and chest xray. Per JUAN Padilla-Yadira Omalley CRNP 03/14/24 12:35 PM Note --Agree with DTP. --Would recommend home COVID test. --He should wear oxygen to maintain SpO2 >90% --I placed CXR order to rule out any acute issue--please see if he can report to clinic (he is not homebound and drives) --he does not sound like he is in any distress and feel we can just follow up with a phone call tomorrow Patient does not have home covid test, advised we can do swab here for him Order placed for swab, there is an order for the chest xray documented in this encounter Plan of Treatment Upcoming Encounters Date Type Department Care Team (Late st Contact Info) Description 03/15/2024 11:30 AM EDT Scheduled Telephone [facility] at [place], [address] [place] [address] Coordinator, [facility] [address] [place] [address] 03/16/2024 12:00 PM EDT Scheduled Telephone [facility], [facility] [address] [place] [address] Coordinator, [facility] [place] [address] 03/18/2024 11:55 AM EDT Imaging Radiology [address] [facility] [place] [address] 03/18/2024 1:00 PM EDT Imaging Radiology [address] [facility] [place] [address] 03/23/2024 10:00 AM EDT Home Visit [facility], [facility] 132 [facility] [place] [address] Myrtle Allen RN [facility] [address] 04/04/2024 8:00 AM EDT Office Visit Family Practice 65 [facility] 293 [place] [address] Benny Waite, 293 [place] [address] 04/25/2024 1:40 PM EST Telemedicine [facility], [facility] 132 [facility] [place] [address] Yadira Omalley CRNP 132 [facility] [place] [address] Ines Castro, Community Health Dry Pan Feeder [address] [place] [address] 05/24/2024 9:15 AM EST Hospital Encounter OR [facility], Operating Room [facility] [address] [place] [address] Amador Christian, DO [address] [place] [address] 05/24/2024 9:15 AM EST - 05/24/2024 9:40 AM EST Surgery OR [facility], Operating Room [facility] [address] [place] [address] Amador Christian, DO [address] [place] [address] INJECTION SPINE LUMBAR OR SACRAL 07/12/2024 8:00 AM EST Office Visit Cardiology, [facility] [address] [place] [address] Júnior Coppola PA-C [address] [place] [address] 08/14/2024 10:00 AM EST Office Visit Cardiology, [facility] [address] [place] [address] Casimiro Barraza MD [address] [place] [address] Scheduled Orders Name Type Priority Associated Diagnoses Orde r Schedule INFLUENZA A/B RSV SARS-COV2,PCR Lab Routine URI (upper respiratory infection) Expected: 03/14/2024 (Approximate), Expires: 03/14/2025 Scheduled Procedures Name Priority Associated Diagnoses Date/Ti [...] this encounter Medical Devices Implanted Type Area Provider Relations Manager Device Identifier Shelf Expiration Date Model / Serial / Lot Device Watchman Flx 35mm - [id number] Implanted:Qty: 1 on 02/05/2022 by Diamond Teran IV, MD at [facility] [employer] : INTRV CARD [id number] 10/20/2024 [id number] 50 / / [id number] Cath Thermodilution 6fr - [id number] Implanted:Qty: 1 on 07/31/2022 by Franco Mcgregor MD at [facility] [employer] [id number] 04/30/2024 [id number] / / [id number] Mirtaclip G4 - [id number] Implanted:Qty: 1 on 11/16/2022 at [facility] [employer] 06/25/2023 [id number] / / [id number] Clip Delivery Sytem G4 Xtw - [id number] Implanted:Qty: 1 on 11/16/2022 at [facility] [employer] [id number] 08/10/2023 [id number] TW / / [id number] Clip Delivery Sytem G4 Xtw - [id number] Implanted:Qty: 1 on 11/16/2022 at [facility] [employer] [id number] 09/10/2023 [id number] / / [id number] documented as of this encounter Visit [...] and were consensually agreed upon. Care Teams General Claims Agent Relationship Specialty Start Date End Date Benny Waite DO [address] [place] [place] [address] PCP - General Internal Medicine 11/25/23 documented as of this encounter
--- OUTSIDE RECORDS SUMMARY | 2024-03-26 09:49 | External Medical Summary | Summary of Care ---
Author Name Unknown Organization [facility] Address [address] [place] [address] Phone [phone] Care Team Providers Care Financial Services Director Name Role Phone Benny Waite DO Primary Care Provider [phone] Reason for Visit * Reason Onset Date Comments [facility]: Maintenance 03/14/2024 Encounter Details Date Type Department Care Team (Late st Contact Info) Description 03/14/2024 Telephone [facility], [place] [address] [place] [address] Corwin Block, DEX [address] [place] [address] [facility]: Maintenance Allergies [...] 137 MCG/SPRAY Nasal SolutionIndication s:Allergies Administer 1 [place] into each nostril 2 times a day [...] night without results. He will go to [facility] for abdominal x-ray today to rule [...] MVR (mitral valve repair) 11/16/2022 Atherosclerosis of [place] co 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 pectoris 08/11/2022 Severe tricuspid regurgitation 08/11/2022 Gout, arthropathy 07/20/2022 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 02/05/2022 Permanent atrial fibrillation 12/22/2021 Overview: Added automatically from request for surgery [id number] Last Assessment & Plan: S/p Watchman Current [...] mRNA, LNP-s, No Pre serve, 2-Dose Series ([employer]) 05/14/2021 COVID-19, LNP-s, No Preserve , Robbie-sucrose, Ages 12+ (Pfizer) 11/04/2021 COVID-19, MRNA-LNP, 23-24, P F, 30 MCG/0.3 mL, 12 YRS AND ABOVE, IM ([employer]) 11/29/2023,04/16/2023 Covid-19, Mrna, Lnp-s, Pf, B [...] No 07/30/2023 Does the household have a [facility] source of income? (Household - for [...] Encounter - Claribel Quiles RN - 03/14/2024 1:35 PM EDT Call placed to the pt to make aware of recommendations from Yadira MARTINEZ. Pt verbalized understanding of such. Will go to [facility] today to obtain CXR. FC calls scheduled * Addendum Note - Yadira Omalley CRNP [...] PM EDT PC from pt. Returning call Yemiriam Communication Note Name: Nikolas Silvestre Situation: 83 yr old pt lives in [facility]. Pt with HF exacerbation symptoms. Low O2 [...] Call rec'd from pt returning call to [facility]. Pt was called (see TE) re: [facility] O2 readings. Spoke with pt, no distress [...] message sent to Intake. Charlotte Medel RN [facility] Intake [phone] * Telephone Encounter - Agatha Reddy LPN - 03/14/2024 11:13 AM EDT Images from the original note were not included. Call back to patient UTC on home phone Call to patient UTC VM full on cell And home phone rings and rings then goes busy barley steeper will try later * Telephone Encounter - Corwin Block OSA - 03/14/2024 11:01 AM EDT PC from pt asking to speak to someone regarding his readings last night. CRANE HELPER asked that a nurse from the enrollment chat via Teams would be able to call pt back to follow up. documented in this encounter Plan of Treatment Upcoming Encounters Date Type Department Care Team (Late st Contact Info) Description 03/18/2024 11:55 AM EDT Imaging Radiology [address] [place] [address] 03/18/2024 1:00 PM EDT Imaging Radiology [address] [place] [address] 03/23/2024 10:00 AM EDT Home Visit [facility] at [place], [facility] [address] [place] [address] Myrtle Allen RN [address] [place] [address] 04/04/2024 8:00 AM EDT Office Visit Family Practice [address] [place] [address] 293 [place] [address] Benny Waite, DO 293 [facility] [place] [address] 04/25/2024 1:40 PM EST Telemedicine [facility], [facility] [address] [place] [address] Yadira Omalley CRNP [address] [place] [address] Ines Castro, Community Health Manager Food [address] [place] [address] 05/24/2024 9:15 AM EST Hospital Encounter [facility], Operating Room [facility] [address] [place] [address] Amador Christian, DO [address] [place] [address] 05/24/2024 9:15 AM EST - 05/24/2024 9:40 AM EST Surgery OR [facility], Operating Room [facility] [address] [place] [address] Amador Christian, DO [address] [place] [address] INJECTION SPINE LUMBAR OR SACRAL 07/12/2024 8:00 AM EST Office Visit Cardiology, [facility] [address] [place] [address] Júnior Coppola PA-C [address] [place] [address] 08/14/2024 10:00 AM EST Office Visit Cardiology, [facility] [address] [place] [address] Casimiro Barraza MD [address] [place] [address] Scheduled Orders Name Type Priority Associated Diagnoses [...] this encounter Medical Devices Implanted Type Area Account Receivable Clerk Device Identifier Shelf Expiration Date Model / Serial / Lot Device Watchman Flx 35mm - [id number] Implanted:Qty: 1 on 02/05/2022 by Diamond Teran IV, MD at [facility] [employer] : INTRV CARD [id number] 10/20/2024 [id number] 50 / / [id number] Cath Thermodilution 6fr - [id number] Implanted:Qty: 1 on 07/31/2022 by Franco Mcgregor MD at [facility] [employer] [id number] 04/30/2024 [id number] / / [id number] Mirtaclip G4 - [id number] Implanted:Qty: 1 on 11/16/2022 at [facility] [employer] 06/25/2023 [id number] / / [id number] Clip Delivery Sytem G4 Xtw - [id number] Implanted:Qty: 1 on 11/16/2022 at [facility] [employer] [id number] 08/10/2023 [id number] TW / / [id number] Clip Delivery Sytem G4 Xtw - [id number] Implanted:Qty: 1 on 11/16/2022 at [facility] [employer] [id number] 09/10/2023 [id number] TW / / [id number] documented as of this encounter Visit [...] were consensually agreed upon. Care Teams Financial Services Director Relationship Specialty Start Date End Date Benny Waite DO [address] [place] [address] PCP - General Internal Medicine 11/25/23 documented as of this encounter
--- OUTSIDE RECORDS SUMMARY | 2024-03-26 09:49 | External Medical Summary | Summary of Care ---
Author Name Unknown Organization [facility] Address [address] [place] [address] Phone [phone] Care Team Providers Care Scrap Baller Name Role Phone Benny Waite DO Primary Care Provider [phone] Reason for Visit * Reason Onset Date Comments [facility]: Maintenance 03/14/2024 Encounter Details Date Type Department Care Team (Late st Contact Info) Description 03/14/2024 Telephone [facility] [place] [address] [place] [address] Corwin Block, DEX [address] [place] [address] [facility]: Maintenance Allergies [...] 137 MCG/SPRAY Nasal SolutionIndication s:Allergies Administer 1 [place] into each nostril 2 times a day [...] night without results. 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 (Household [...] Telephone Encounter - Haritha Peña LPN - 03/14/2024 5:06 PM EDT T called to reports CXR completed * Telephone Encounter - Claribel Quiles RN - 03/14/2024 1:35 PM EDT Call placed to the pt to make aware of recommendations from Yadira MARTINEZ. Pt verbalized understanding of such. Will go to [facility] today to obtain CXR. FC calls [...] Situation: 83 yr old pt lives in [facility]. Pt with HF exacerbation symptoms. Low [...] Call rec'd from pt returning call to [facility]. Pt was called (see TE) re: [facility] O2 readings. Spoke with pt, no distress [...] message sent to Intake. Charlotte Medel RN [facility] Intake [phone] * Telephone Encounter - Agatha Reddy LPN - 03/14/2024 11:13 AM EDT Images from the original note were not included. Call back to patient UTC on home phone Call to patient UTC VM full on cell And home phone rings and rings then goes busy filter tender will try later * Telephone Encounter - Corwin Block OSA - 03/14/2024 11:01 AM EDT PC from pt asking to speak to someone regarding his readings last night. CLAIMS AUDITOR asked that a nurse from the enrollment chat via Teams would be able to call pt back to follow up. documented in this encounter Plan of Treatment Upcoming Encounters Date Type Department Care Team (Late st Contact Info) Description 03/15/2024 11:30 AM EDT Scheduled Telephone [facility], [facility] 132 [facility] [place] [address] Coordinator, [facility] 132 [facility] [place] [address] 03/16/2024 12:00 PM EDT Scheduled Telephone [facility], [facility] 132 [facility] [place] [address] Coordinator, [facility] 132 [facility] [place] [address] 03/18/2024 11:55 AM EDT Imaging Radiology [address] 132 [facility] [place] [address] 03/18/2024 1:00 PM EDT Imaging Radiology [address] 132 [facility] [place] [address] 03/23/2024 10:00 AM EDT Home Visit [facility], [facility] 132 [facility] [place] [address] Myrtle Allen RN 132 [place] [address] 04/04/2024 8:00 AM EDT Office Visit Family Practice 65 [facility] [address] [place] [address] Benny Waite, DO 293 [facility] [address] 04/25/2024 1:40 PM EST Telemedicine [facility], [facility] 132 [facility] [place] [address] Yadira [facility]malley CRNP 132 [facility] [address] Ines Castro, Community Health Admin Prog Coord [facility] [place] [address] 05/24/2024 9:15 AM EST Hospital Encounter [facility], Operating Room [facility] 132 [facility] [place] [address] Amador Christian, DO [address] [place] [address] 05/24/2024 9:15 AM EST - 05/24/2024 9:40 AM EST Surgery OR [facility], Operating Room [facility] [address] [place] [address] Amador Christian, DO [address] [place] [address] INJECTION SPINE LUMBAR OR SACRAL 07/12/2024 8:00 AM EST Office Visit Cardiology, [facility] [address] [place] [address] Júnior Coppola PA-C [address] [place] [address] 08/14/2024 10:00 AM EST Office Visit Cardiology, [facility] [address] [place] [address] Casiimro Barraza MD [address] [place] [address] Pending Results Name Type Priority Associated Diagnoses Date /Time XR CHEST 2 VIEWS Medical Imaging Routine CHF (congestive heart failure), NYHA class I, chronic, diastolic (HCC) Chronic respiratory failure with hypoxia (HCC) 03/14/2024 3:18 PM EDT Scheduled Procedures Name Priority Associated [...] this encounter Medical Devices Implanted Type Area [place]ade Hardware Installer Device Identifier Shelf Expiration Date Model / Serial / Lot Device Watchman Flx 35mm - [id number] Implanted:Qty: 1 on 02/05/2022 by Diamond Teran IV, MD at [facility] [employer] : INTRV CARD [id number] 10/20/2024 [id number] 50 / / [id number] Cath Thermodilution 6fr - [id number] Implanted:Qty: 1 on 07/31/2022 by Franco Mcgregor MD at [facility] [employer] [id number] 04/30/2024 [id number] / / [id number] Mirtaclip G4 - [id number] Implanted:Qty: 1 on 11/16/2022 at [facility] [employer] 06/25/2023 [id number] / / [id number] Clip Delivery Sytem G4 Xtw - [id number] Implanted:Qty: 1 on 11/16/2022 at [facility] [employer] [id number] 08/10/2023 [id number] TW / / [id number] Clip Delivery Sytem G4 Xtw - [id number] Implanted:Qty: 1 on 11/16/2022 at [facility] [employer] [id number] 09/10/2023 [id number] / / [id number] documented as of this encounter Visit [...] were consensually agreed upon. Care Teams Scrap Baller Relationship Specialty Start Date End Date Benny Waite DO 293 [place] [address] PCP - General Internal Medicine 11/25/23 documented as of this encounter
--- OUTSIDE RECORDS SUMMARY | 2024-03-26 09:49 | External Medical Summary | Summary of Care ---
Author Name Unknown Organization [facility] Address [address] [place] [address] Phone [phone] Care Team Providers Care Complex Care Nurse Practitioner Name Role Phone Benny Waite DO Primary Care Provider [phone] Reason for Visit * Reason Onset Date Comments [facility]: Maintenance 03/14/2024 Encounter Details Date Type Department Care Team (Late st Contact Info) Description 03/14/2024 Telephone [facility] [place] [address] [place] [address] Corwin Block, DEX [address] [place] [address] [facility]: Maintenance Allergies [...] 137 MCG/SPRAY Nasal SolutionIndication s:Allergies Administer 1 [place] into each nostril 2 times a day [...] night without results. 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 02/05/2022 Permanent atrial fibrillation 12/22/2021 Overview: Added automatically from request for surgery [id number] Last Assessment & Plan: S/p Watchman Current [...] [facility] Device(s): Connected Scale Self - Management Plan [...] mRNA, LNP-s, No Pre serve, 2-Dose Series ([employer]) 05/14/2021 COVID-19, LNP-s, No Preserve , Robbie-sucrose, Ages 12+ (Pfizer) 11/04/2021 COVID-19, MRNA-LNP, 23-24, P F, 30 MCG/0.3 mL, 12 YRS AND ABOVE, IM ([employer]) 11/29/2023,04/16/2023 Covid-19, Mrna, Lnp-s, Pf, B ivalent, [...] No 07/30/2023 Does the household have a [facility] source of income? (Household - for [...] PM EDT PC from pt. Returning call Rafaela Communication Note Name: Nikolas Silvestre Situation: 83 yr old pt lives in [facility]. Pt with HF exacerbation symptoms. [...] sat above 90%. Recommend a HV today or tomorrow. TT message sent to Myrtle MARTINEZ with request * Telephone Encounter - Antonietta Carter RN - 03/14/2024 11:48 AM EDT Call rec'd from pt returning call to [facility]. Pt was called (see TE) re: [...] message sent to Intake. Charlotte Medel RN [facility] Intake [phone] * Telephone Encounter - Agatha Reddy LPN - 03/14/2024 11:13 AM EDT Images from the original note were not included. Call back to patient [facility] on home phone Call to patient [facility] VM full on cell And home phone rings and rings then goes busy equipment technician will try later * Telephone Encounter - Corwin Block OSA - 03/14/2024 11:01 AM EDT PC from pt asking to speak to someone regarding his readings last night. BUDGET EXAMINER asked that a nurse from the enrollment chat via Teams would be able to call pt back to follow up. documented in this encounter Plan of Treatment Upcoming Encounters Date Type Department Care Team (Late st Contact Info) Description 03/18/2024 11:55 AM EDT Imaging Radiology [address] 132 [facility] [place] [address] 03/18/2024 1:00 PM EDT Imaging Radiology [address] 132 [facility] [place] [address] 03/23/2024 10:00 AM EDT [facility] 132 [facility] [place] [address] Myrtle Allen RN 132 [facility] [place] [address] 04/04/2024 8:00 AM EDT Office Visit Family Practice [address], [place] 293 [place] [address] Benny Waite, DO 293 [place] [address] 04/25/2024 1:40 PM EST [facility]medicine [facility] 132 [facility] [place] [address] Yadira Omalley CRNP 132 [facility] [address] Ines Castro, Community Health Floor Person [address] [place] [address] 05/24/2024 9:15 AM EST Hospital Encounter [facility], Operating Room [facility] 132 [facility] [place] [phone] Amador Christian, 132 [facility] [place] [phone] 05/24/2024 9:15 AM EST - 05/24/2024 9:40 AM EST Surgery OR [facility], Operating Room [facility] [address] [place] [address] Amador Christian DO [address] [place] [address] INJECTION SPINE LUMBAR OR SACRAL 07/12/2024 8:00 AM EST Office Visit Cardiology, [facility] [address] [place] [address] Júnior Coppola PA-C [address] [place] [address] 08/14/2024 10:00 AM EST Office Visit Cardiology, [facility] [address] [place] [address] Casimiro Barraza MD [address] [place] [address] Scheduled Procedures Name Priority Associated Diagnoses Date/Ti [...] encounter Medical Devices Implanted Type Area Director Television News Device Identifier Shelf Expiration Date Model / Serial / Lot Device Watchman Flx 35mm - [id number] Implanted:Qty: 1 on 02/05/2022 by Diamond Teran IV, MD at [facility] [employer] : INTRV CARD [id number] 10/20/2024 [id number] 50 / / [id number] Cath Thermodilution 6fr - [id number] Implanted:Qty: 1 on 07/31/2022 by Franco Mcgregor MD at [facility] [employer] [id number] 04/30/2024 [id number] / / [id number] Mirtaclip G4 - [id number] Implanted:Qty: 1 on 11/16/2022 at [facility] [employer] 06/25/2023 [id number] / / [id number] Clip Delivery Sytem G4 Xtw - [id number] Implanted:Qty: 1 on 11/16/2022 at [facility] [employer] [id number] 08/10/2023 [id number] TW / / [id number] Clip Delivery Sytem G4 Xtw - [id number] Implanted:Qty: 1 on 11/16/2022 at [facility] [employer] [id number] 09/10/2023 [id number] TW / / [id number] documented as of this encounter Advance [...] and were consensually agreed upon. Care Teams Complex Care Nurse Practitioner Relationship Specialty Start Date End Date Benny Waite DO [address] [facility] [place] [address] PCP - General Internal Medicine 11/25/23 documented as of this encounter
--- OUTSIDE RECORDS SUMMARY | 2024-03-26 09:50 | External Medical Summary | Summary of Care ---
Author Name Unknown Organization [facility] Address [address] [place] [address] Phone [phone] Care Team Providers Care Can Repairer Name Role Phone Benny Waite DO Primary Care Provider [phone] Reason for Visit * Reason Onset Date Comments [facility]: Maintenance 03/14/2024 Encounter Details Date Type Department Care Team (Late st Contact Info) Description 03/14/2024 Telephone [facility] [place] [facility] [address] [place] [address] Corwin Block, DEX [address] [place] [address] [facility]: Maintenance Allergies [...] 137 MCG/SPRAY Nasal SolutionIndication s:Allergies Administer 1 [place] into each nostril 2 times a day [...] night without results. 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 (Household - for [...] Call rec'd from pt returning call to [facility]. Pt was called (see TE) re: [facility] O2 readings. Spoke with pt, no distress noted, pt speaking in full sentences without apparent difficulty. Pt reports he is not currently wearing O2. When asked to check SpO2 while on the phone, line disconnected and call dropped. Call back immediately made to pt, no answer. Unable to leave message. * Telephone Encounter - Clairbel Quiles RN - 03/14/2024 11:45 AM EDT PC to the pt x 2 attempts. No answer. Unable to leave a VM [...] message sent to Intake. Charlotte Medel RN [facility] Intake [phone] * Telephone Encounter - Agatha Reddy LPN - 03/14/2024 11:13 AM EDT Images from the original note were not included. Call back to patient [facility] on home phone Call to patient [facility] VM full on cell And home phone rings and rings then goes busy cotton tier will try later * Telephone Encounter - Corwin Block OSA - 03/14/2024 11:01 AM EDT PC from pt asking to speak to someone regarding his readings last night. SOFTWARE TEST TECHNICIAN asked that a nurse from the enrollment chat via Teams would be able to call pt back to follow up. documented in this encounter Plan of Treatment Upcoming Encounters Date Type Department Care Team (Late st Contact Info) Description 03/18/2024 11:55 AM EDT Imaging Radiology [address] 132 [facility] [address] [facility] [place] [address] 03/18/2024 1:00 PM EDT Imaging Radiology [address] 132 [facility] [place] [address] 03/23/2024 10:00 AM EDT Home Visit [facility] [place], [facility] 132 [facility] [place] [address] Myrtle Allen, RN 132 [facility] [place] [address] 04/04/2024 8:00 AM EDT Office Visit Family Practice 65 [facility], [place] 293 [place] [address] Benny Waite, DO [address] [place] [address] 04/25/2024 1:40 PM EST Telemedicine [facility], [facility] [address] [place] [address] Yadira Omalley CRNP [address] [place] [address] Ines Castro, Community Health Web Software Engineer [address] [place] [address] 05/24/2024 9:15 AM EST Hospital Encounter [facility], Operating Room [facility] [address] [place] [phone] Amador Christian, [address] [place] [phone] 05/24/2024 9:15 AM EST - 05/24/2024 9:40 AM EST Surgery OR [facility], Operating Room [facility] [address] [place] [address] Amador Christian, [address] [place] [address] INJECTION SPINE LUMBAR OR SACRAL 07/12/2024 8:00 AM EST Office Visit Cardiology, [facility] [address] [place] [address] Júnior Coppola PAJaleesa [address] [place] [address] 08/14/2024 10:00 AM EST Office Visit Cardiology, [facility] [address] [place] [address] Casimiro Barraza MD [address] [place] [address] Scheduled Procedures Name Priority Associated Diagnoses Date/Ti [...] this encounter Medical Devices Implanted Type Area Securities Research Analyst Device Identifier Shelf Expiration Date Model / Serial / Lot Device Watchman Flx 35mm - [id number] Implanted:Qty: 1 on 02/05/2022 by Diamond Teran IV, MD at [facility] [place] [email or web address] : INTRV CARD [id number] 10/20/2024 [id number] 50 / / [id number] Cath Thermodilution 6fr - [id number] Implanted:Qty: 1 on 07/31/2022 by Franco Mcgregor MD at [facility] [employer] [id number] 04/30/2024 [id number] / / [id number] Mirtaclip G4 - [id number] Implanted:Qty: 1 on 11/16/2022 at [facility] [place] [employer] 06/25/2023 [id number] / / [id number] Clip Delivery Sytem G4 Xtw - [id number] Implanted:Qty: 1 on 11/16/2022 at [facility] [employer] [id number] 08/10/2023 [id number] TW / / [id number] Clip Delivery Sytem G4 Xtw - [id number] Implanted:Qty: 1 on 11/16/2022 at [facility] [employer] [id number] 09/10/2023 [id number] / / [id number] documented as of this encounter Advance [...] and were consensually agreed upon. Care Teams Can Repairer Relationship Specialty Start Date End Date Benny Waite DO [address] [place] [facility] [place] [address] PCP - General Internal Medicine 11/25/23 documented as of this encounter
--- OUTSIDE RECORDS SUMMARY | 2024-03-26 09:50 | External Medical Summary | Summary of Care ---
Author Name Unknown Organization [facility] Address [address] [place] [address] Phone [phone] Care Team Providers Care Technology Applications Teacher Name Role Phone Benny Waite DO Primary Care Provider [phone] Reason for Visit * Reason Onset Date Comments [facility]: Maintenance 03/14/2024 Encounter Details Date Type Department Care Team (Late st Contact Info) Description 03/14/2024 Telephone [facility] [place] [address] [place] [address] Corwin Block, DEX [address] [place] [address] [facility]: Maintenance Allergies [...] 137 MCG/SPRAY Nasal SolutionIndication s:Allergies Administer 1 [place] into each nostril 2 times a day [...] He will go to 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 02/05/2022 Permanent atrial fibrillation 12/22/2021 Overview: Added automatically from request for surgery [id number] Last Assessment & Plan: S/p Watchman Current [...] in the Comments) Remote Patient Monitoring Vendor: [facility] Device(s): Connected Scale [...] mRNA, LNP-s, No Pre serve, 2-Dose Series ([email or web address]) 05/14/2021 COVID-19, LNP-s, No Preserve , Robbie-sucrose, Ages 12+ (Pfizer) 11/04/2021 COVID-19, MRNA-LNP, 23-24, P F, 30 MCG/0.3 mL, 12 YRS AND ABOVE, IM ([facility]) 11/29/2023,04/16/2023 Covid-19, Mrna, Lnp-s, Pf, B ivalent, [...] 07/30/2023 Does the household have a [facility] cancer center[facility] source of income? (Household - for [...] talk to someone about his [facility] readings. [employer] message sent to Intake. Charlotte Medel RN [facility] Intake [phone] * Telephone Encounter - Agatha Reddy LPN - 03/14/2024 11:13 AM EDT Images from the original note were not included. Call back to patient [facility] on home phone Call to patient [facility] VM full on cell And home phone rings and rings then goes busy command and control specialist will try later * Telephone Encounter - Corwin Block OSA - 03/14/2024 11:01 AM EDT PC from pt asking to speak to someone regarding his readings last night. STRADDLE TRUCK OPERATOR asked that a nurse from the enrollment chat via Teams would be able to call pt back to follow up. documented in this encounter Plan of Treatment Upcoming Encounters Date Type Department Care Team (Late st Contact Info) Description 03/18/2024 11:55 AM EDT Imaging Radiology [address] 132 [facility] [place] [address] 03/18/2024 1:00 PM EDT Imaging Radiology [address] 132 [facility] [place] [address] 03/23/2024 10:00 AM EDT [facility], [facility] 132 [facility] [place] [address] Myrtle Allen RN 132 [facility] [place] [address] 04/04/2024 8:00 AM EDT Office Visit Family Practice 65 [facility] [place] 293 [place] [address] Benny Waite, 293 [place] [address] 04/25/2024 1:40 PM EST Telemedicine [facility], [facility] 132 [facility] [place] [address] Yadira Omalley CRNP [address] [facility] [address] Ines Castro, Community Health Building And Grounds Supervisor [address] [place] [address] 05/24/2024 9:15 AM EST Hospital Encounter [facility], Operating Room [facility] 132 [facility] [place] [phone] Amador Christian DO [address] [place] [phone] 05/24/2024 9:15 AM EST - 05/24/2024 9:40 AM EST Surgery OR [facility], Operating Room [facility] [address] [place] [phone] Amador Christian DO [address] [place] [address] INJECTION SPINE LUMBAR OR SACRAL 07/12/2024 8:00 AM EST Office Visit Cardiology, [facility] [address] [place] [address] Júnior Coppola PA-C [address] [place] [address] 08/14/2024 10:00 AM EST Office Visit Cardiology, [facility] [address] [place] [address] Casimiro Barraza MD [address] [place] [address] Scheduled Procedures Name Priority Associated Diagnoses Date/Ti [...] encounter Medical Devices Implanted Type Area Teacher Nursery [employer] Device Identifier Shelf Expiration Date Model / Serial / Lot Device Watchman Flx 35mm - [id number] Implanted:Qty: 1 on 02/05/2022 by Diamond Teran IV, MD [place] [facility] [employer] : INTRV CARD [id number] 10/20/2024 [id number] 50 / / [id number] Cath Thermodilution 6fr - [id number] Implanted:Qty: 1 on 07/31/2022 by Franco Mcgregor MD at [facility] [employer] [id number] 04/30/2024 [id number] / / [id number] Mirtaclip G4 - [id number] Implanted:Qty: 1 on 11/16/2022 at [facility] [employer] 06/25/2023 [id number] / / [id number] Clip Delivery Sytem G4 Xtw - [id number] Implanted:Qty: 1 on 11/16/2022 at [facility] [employer] [id number] 08/10/2023 [id number] TW / / [id number] Clip Delivery Sytem G4 Xtw - [id number] Implanted:Qty: 1 on 11/16/2022 at [facility] [employer] [id number] 09/10/2023 [id number] TW / / [id number] documented as of this encounter Advance [...] were consensually agreed upon. Care Teams Technology Applications Teacher Relationship Specialty Start Date End Date Benny Waite DO [address] [place] [address] PCP - General Internal Medicine 11/25/23 documented as of this encounter
--- OUTSIDE RECORDS SUMMARY | 2024-03-26 09:50 | External Medical Summary | Summary of Care ---
Author Name Unknown Organization [facility] Address [address] [place] [address] Phone [phone] Care Team Providers Care Data Consultant Name Role Phone Benny Waite DO Primary Care Provider [phone] Reason for Visit * Reason Onset Date Comments [facility]: Maintenance 03/14/2024 Encounter Details Date Type Department Care Team (Late st Contact Info) Description 03/14/2024 Telephone [facility] [place] [facility] [address] [place] [address] Corwin Block, DEX [address] [place] [address] [facility]: Maintenance Allergies [...] 137 MCG/SPRAY Nasal SolutionIndication s:Allergies Administer 1 [place] into each nostril 2 times a day [...] results. 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 02/05/2022 Permanent atrial fibrillation 12/22/2021 Overview: Added automatically from request for surgery [id number] Last Assessment & Plan: S/p Watchman Current [...] in the Comments) Remote Patient Monitoring Vendor: [facility] Device(s): Connected Scale Self - Management Plan [...] mRNA, LNP-s, No Pre serve, 2-Dose Series ([employer]) 05/14/2021 COVID-19, LNP-s, No Preserve , Robbie-sucrose, Ages 12+ (Pfizer) 11/04/2021 COVID-19, MRNA-LNP, 23-24, P F, 30 MCG/0.3 mL, 12 YRS AND ABOVE, IM ([facility]) 11/29/2023,04/16/2023 Covid-19, Mrna, Lnp-s, Pf, B ivalent, [...] No 07/30/2023 Does the household have a [facility] source of income? (Household - for [...] phone rings and rings then goes busy escort patients will try later * Telephone Encounter - Corwin Block OSA - 03/14/2024 11:01 AM EDT PC from pt asking to speak to someone regarding his readings last night. ATTORNEY RECRUITER asked that a nurse from the enrollment chat via Teams would be able to call pt back to follow up. documented in this encounter Plan of Treatment Upcoming Encounters Date Type Department Care Team (Late st Contact Info) Description 03/18/2024 11:55 AM EDT Imaging Radiology [address] [place] [address] 03/18/2024 1:00 PM EDT Imaging Radiology [address] [place] [address] 03/23/2024 10:00 AM EDT [facility] 132 [facility] [place] [address] Myrtle Allen, RN [facility] [place] [address] 04/04/2024 8:00 AM EDT Office Visit Family Practice [address] [place] [address], [place] 293 [place] [address] Benny Waite, DO [address] [place] [address] 04/25/2024 1:40 PM EST [facility]medicine [facility] [place] [address] Yadira Omalley CRNP 132 [facility] [place] [address] Ines Castro, Community Health Cork Compounder [address] [place] [address] 05/24/2024 9:15 AM EST Hospital Encounter [facility], [facility] [place] [address] Amador Christian, DO [address] [place] [address] 05/24/2024 9:15 AM EST - 05/24/2024 9:40 AM EST Surgery OR [facility], Operating Room [facility] [address] [place] [phone] Amador Christian, DO [address] [place] [phone] INJECTION SPINE LUMBAR OR SACRAL 07/12/2024 8:00 AM EST Office Visit Cardiology, [facility] [address] [place] [address] Júnior Coppola, [facility] [address] [place] [address] 08/14/2024 10:00 AM EST Office Visit Cardiology, [facility] [address] [place] [address] Casimiro Barraza MD [address] [place] [address] Scheduled Procedures Name Priority Associated Diagnoses Date/Ti [...] this encounter Medical Devices Implanted Type Area Brine Maker Device Identifier Shelf Expiration Date Model / Serial / Lot Device Watchman Flx 35mm - [id number] Implanted:Qty: 1 on 02/05/2022 by Diamond Teran IV, MD at [facility] [employer] : INTRV CARD [id number] 10/20/2024 [id number] 50 / / [id number] Cath Thermodilution 6fr - [id number] Implanted:Qty: 1 on 07/31/2022 by Franco Mcgregor MD at [facility] [employer] [id number] 04/30/2024 [id number] / / [id number] Mirtaclip G4 - [id number] Implanted:Qty: 1 on 11/16/2022 at [facility] [employer] 06/25/2023 [id number] / / [id number] Clip Delivery Sytem G4 Xtw - [id number] Implanted:Qty: 1 on 11/16/2022 at [facility] [employer] [id number] 08/10/2023 [id number] TW / / [id number] Clip Delivery Sytem G4 Xtw - [id number] Implanted:Qty: 1 on 11/16/2022 at [facility] [employer] [id number] 09/10/2023 [id number] TW / / [id number] documented as of this encounter Advance [...] and were consensually agreed upon. Care Teams Data Consultant Relationship Specialty Start Date End Date Benny Waite DO [address] [facility] [place] [address] PCP - General Internal Medicine 11/25/23 documented as of this encounter
--- OUTSIDE RECORDS SUMMARY | 2024-03-26 09:50 | External Medical Summary | Summary of Care ---
Author Name Unknown Organization [facility] Address [address] [facility] [place] [address] Phone [phone] Care Team Providers Care Heavy Duty Mechanic Name Role Phone Benny Waite DO Primary Care Provider [phone] Reason for Visit * Reason Onset Date Comments Information 03/08/202403/08, 03/09 Encounter Details Date Type Department Care Team (Late st Contact Info) Description 03/08/2024 Telephone Family Practice [address], [place] [address] [place] [phone] Benny Waite DO [address] [place] [address] Information (03/08, 03/09) Allergies Active Allergy Reactions Criticality Noted Date [...] 137 MCG/SPRAY Nasal SolutionIndication s:Allergies Administer 1 [place] into each nostril 2 times a day [...] without results. He will go to 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 02/05/2022 Permanent atrial fibrillation 12/22/2021 Overview: Added automatically from request for surgery [id number] Last Assessment & Plan: S/p Watchman Current [...] in the Comments) Remote Patient Monitoring Vendor: [facility] Device(s): Connected Scale Self - [...] mRNA, LNP-s, No Pre serve, 2-Dose Series (Endocyte) 05/14/2021 COVID-19, LNP-s, No Preserve , Robbie-sucrose, Ages 12+ (Pfizer) 11/04/2021 COVID-19, MRNA-LNP, 23-24, P F, 30 MCG/0.3 mL, 12 YRS AND ABOVE, IM ([facility]) 11/29/2023,04/16/2023 Covid-19, Mrna, Lnp-s, Pf, B ivalent, 30 Mcg, IM, 12 yrs and above (Endocyte) 03/17/2022 Pneumococcal Conjugate Vacc, 13 Valent (Prevnar) [...] 07/30/2023 Does the household have a [facility] source of income? (Household - for [...] Encounter - Benny Waite DO - 03/14/2024 10:10 AM EDT Noted. * Telephone Encounter - Marnie Baker LPN - 03/13/2024 2:22 PM EDT Patient states he does not want to take to anything else. Is using a heating pad. Thank you * Telephone Encounter - Benny Waite DO - 03/11/2024 2:52 PM EDT There are no other medications to add. Can retry low dose of Tramadol. He is not a candidate for surgery. Medications will not take pain away completely. * Telephone Encounter - Marnie Baker LPN - 03/10/2024 3:56 PM EDT Had injection in back in January, next is due in May. States back is really painful. Not able to get brace on correctly to wear. * Telephone Encounter - Macy Carbajal OSA - 03/09/2024 4:58 PM EDT Wants to speak to Marnie Told him Marnie was gone for day and would call her later He said what does she have bankers hours comes in late and leaves early Told him that she makes her own hours I dont control that. He said will call back and speak to someone who cares * Telephone Encounter - Benny Waite DO - 03/09/2024 2:28 PM EDT No additional recommendations at this time. * Telephone Encounter - Marnie Baker LPN - 03/09/2024 10:48 AM EDT Patient called back, states his back is hurting. Advised to purchase an lidoderm patch, he states he can not use as he can't get it on. States back is very painful problems with oxygen not working. Advised to contact supplier. States his bp is better when he is active however his back is too painful. * Telephone Encounter - Macy Carbajal OSA - 03/09/2024 8:15 AM EDT Returning Angie call * Telephone Encounter - Marnie Baker LPN - 03/08/2024 4:28 PM EDT Called, left message for patient to return call.Thank you Wanted to check status of patient. documented in this encounter Plan of Treatment Upcoming Encounters Date Type Department Care Team (Late st Contact Info) Description 03/18/2024 11:55 AM EDT Imaging Radiology [address] 132 [facility] [place] [address] 03/18/2024 1:00 PM EDT Imaging Radiology [address] 132 [facility] [place] [address] 03/23/2024 10:00 AM EDT [facility], [facility] 132 [facility] [place] [address] Myrtle Allen, RN [facility] [address] 04/04/2024 8:00 AM EDT Office Visit Family Practice [address] [place] [address] 293 [place] [address] Benny Waite, DO [address] [place] [address] 04/25/2024 1:40 PM EST Telemedicine [facility], [facility] 132 [facility] [place] [address] Yadira Omalley CRNP [facility] [address] Ines Castro, Community Health Bilingual [employer] [address] [place] [address] 05/24/2024 9:15 AM EST Hospital Encounter [facility], Operating Room [facility] 132 [facility] [place] [phone] Amador Christian DO 132 [facility] [place] [address] 05/24/2024 9:15 AM EST - 05/24/2024 9:40 AM EST Surgery OR [facility], Operating Room [facility] [address] [place] [address] Amador Christian DO [address] [place] [address] INJECTION SPINE LUMBAR OR SACRAL 07/12/2024 8:00 AM EST Office Visit Cardiology, [facility] [address] [place] [address] Júnior Coppola PA-C [address] [place] [address] 08/14/2024 10:00 AM EST Office Visit Cardiology, [facility] [address] [place] [address] Casimiro Barraza MD [address] [place] [address] Scheduled Procedures Name Priority Associated Diagnoses Date/Ti [...] this encounter Medical Devices Implanted Type Area Chair Installer Device Identifier Shelf Expiration Date Model / Serial / Lot Device Watchman Flx 35mm - [id number] Implanted:Qty: 1 on 02/05/2022 [place] Diamond Teran IV, [place] [facility] [place] Click Contact : INTRV CARD [id number] 10/20/2024 [id number] / / [id number] Cath Thermodilution 6fr - [id number] Implanted:Qty: 1 on 07/31/2022 by Franco Mcgregor MD [place] [facility] [place] [facility] [place] [employer] [id number] 04/30/2024 [id number] / / [id number] Mirtaclip G4 - [id number] Implanted:Qty: 1 on 11/16/2022 at [facility] [place] [employer] 06/25/2023 [id number] / / [id number] Clip Delivery Sytem G4 Xtw - [id number] Implanted:Qty: 1 on 11/16/2022 at [facility] [place] [employer] [id number] 08/10/2023 [id number] TW / / [id number] Clip Delivery Sytem G4 Xtw - [id number] Implanted:Qty: 1 on 11/16/2022 at [facility] [place] [employer] [id number] 09/10/2023 [id number] / / [id number] documented as of this encounter Advance [...] and were consensually agreed upon. Care Teams Heavy Duty Mechanic Relationship Specialty Start Date End Date Benny Waite DO 293 [place] [address] PCP - General Internal Medicine 11/25/23 documented as of this encounter
--- OUTSIDE RECORDS SUMMARY | 2024-03-26 09:50 | External Medical Summary ---
Author Name Unknown Address Unknown Organization K01:[facility] [place] [address] [facility] [address] Laboratory Report Ordering Provider Test Date Status NIKOS MISHRA 03/14/2024 15:22:14 Final Observation Date Value Abnormality Reference (Units ) Status SARS Coronavirus 2 03/14/2024 15:22:14 Negative N egative Final No SARS-CoV2 Coronavirus RNA detected by PCR (amplified probe).
This express test was developed and its performance characteristics determined by [employer]. It has not been cleared or approved by the U.S. Food and Drug Administration (FDA). FDA does not require this test to go thru premarket FDA review. This test is used for clinical purposes. It should not be regarded as investigational or for research. This laboratory is certified under the Clinical Laboratory Improvement Amendments (CLIA) as qualified to perform high complexity clinical laboratory testing.

This test is a nucleic acid amplification test (NAAT), a reverse transcriptase polymerase chain reaction (RT-PCR) test, or a Centers for Disease Control-acceptable equivalent. The test is performed in a high complexity Clinical Laboratory Improvement Amendments-(CLIA) certified laboratory. The test is acceptable for SARS-CoV-2 diagnosis, surveillance, and travel within the [place] and to most countries. Please check with local testing authorities about requirements before travel.

The validation of bronchial specimens, tracheal aspirates, and sputum for this assay was developed and performance characteristics determined by [facility]. The validation of alternate specimen types has not been cleared or approved by the U.S. Food and Drug Administration (FDA). It has been determined that such clearance is not necessary. Influenza virus A RNA [Prese nce] in Specimen by DENNIS with probe detection 03/14/2024 15:22:14 Negative Negative Final No Influenza A RNA detected by PCR (amplified probe) Influenza virus B RNA [Prese nce] in Specimen by DENNIS with probe detection 03/14/2024 15:22:14 Negative Negative Final No Influenza B RNA detected by PCR (amplified probe) Respiratory syncytial virus RNA [Identifier] in Specimen by DENNIS with probe detection 03/14/2024 15:22:14 Negative Negative Final No Respiratory Syncytial Vir us RNA detected by PCR (amplified probe) Performing Location LAB[address]ATORY [address] [facility] [address]
--- OUTSIDE RECORDS SUMMARY | 2024-03-26 09:50 | External Medical Summary | Summary of Care ---
Author Name Unknown Organization [facility] Address [address] [place] [address] Phone [phone] Care Team Providers Care Certified Pharmacy Technician Name Role Phone Benny Waite DO Primary Care Provider [phone] Reason for Visit * Reason Onset Date Comments [facility]: Maintenance 03/14/2024 Encounter Details Date Type Department Care Team (Late st Contact Info) Description 03/14/2024 Telephone [facility], [place] [address] [place] [address] Corwin Block, DEX [address] [place] [address] [facility]: Maintenance Allergies [...] 137 MCG/SPRAY Nasal SolutionIndication s:Allergies Administer 1 [place] into each nostril 2 times a day [...] go to [facility] for abdominal x-ray today to rule out [...] Overview: Added automatically from request for surgery [id number] Last Assessment & Plan: S/p Watchman Current [...] in the Comments) Remote Patient Monitoring Vendor: [facility] [place] Device(s): Connected Scale Self - [...] mRNA, LNP-s, No Pre serve, 2-Dose Series (QuadROI) 05/14/2021 COVID-19, LNP-s, No Preserve , Robbie-sucrose, Ages 12+ (Pfizer) 11/04/2021 COVID-19, MRNA-LNP, 23-24, P F, 30 MCG/0.3 mL, 12 YRS AND ABOVE, IM ([facility]) 11/29/2023,04/16/2023 Covid-19, Mrna, Lnp-s, Pf, B [...] encounter Miscellaneous Notes * Telephone Encounter - Agtaha Reddy LPN - 03/14/2024 11:13 AM EDT Images from the original note were not included. Call back to patient UTC on home phone Call to patient UTC VM full on cell And home phone rings and rings then goes busy mine expert will try later * Telephone Encounter - Corwin Block OSA - 03/14/2024 11:01 AM EDT PC from pt asking to speak to someone regarding his readings last night. BOAT PATCHER PLASTIC asked that a nurse from the enrollment chat via Teams would be able to call pt back to follow up. documented in this encounter Plan of Treatment Upcoming Encounters Date Type Department Care Team (Late st Contact Info) Description 03/18/2024 11:55 AM EDT Imaging Radiology [address] [place] [address] 03/18/2024 1:00 PM EDT Imaging Radiology [address] [place] [address] 03/23/2024 10:00 AM EDT [facility], [facility] 132 [facility] [place] [address] Myrtle Allen, RN [facility] [place] [address] 04/04/2024 8:00 AM EDT Office Visit Family Practice [address] [place] [address], [place] 293 [place] [address] Benny Waite, DO 293 [place] [address] 04/25/2024 1:40 PM EST Telemedicine [facility], [facility] [place] [address] Yadira Omalley CRNP 132 [facility] [place] [address] Ines Castro, Community Health Game Programer [address] [place] [address] 05/24/2024 9:15 AM EST Hospital Encounter [facility] [place] [address] Amador Christian, DO [address] [facility] [place] [address] 05/24/2024 9:15 AM EST - 05/24/2024 9:40 AM EST Surgery OR [facility], Operating Room [facility] [address] [place] [address] Amador Christian, DO [address] [place] [phone] INJECTION SPINE LUMBAR OR SACRAL 07/12/2024 8:00 AM EST Office Visit Cardiology, [facility] [address] [place] [address] Júnior Coppola, CHIPC [address] [place] [address] 08/14/2024 10:00 AM EST Office Visit Cardiology, [facility] [address] [place] [address] Casimiro Barraza MD [address] [place] [address] Scheduled Procedures Name Priority Associated Diagnoses Date/Ti [...] this encounter Medical Devices Implanted Type Area Shipwright Supervisor Device Identifier Shelf Expiration Date Model / Serial / Lot Device Watchman Flx 35mm - [id number] Implanted:Qty: 1 on 02/05/2022 by Diamond Teran IV, [place] [facility] [place] [employer] : INTRV CARD [id number] 10/20/2024 [id number] / / [id number] Cath Thermodilution 6fr - [id number] Implanted:Qty: 1 on 07/31/2022 by Franco Mcgregor MD at [facility] [place] [employer] [id number] 04/30/2024 [id number] / / [id number] Mirtaclip G4 - [id number] Implanted:Qty: 1 on 11/16/2022 at [facility] [place] [employer] 06/25/2023 [id number] / / [id number] Clip Delivery Sytem G4 Xtw - [id number] Implanted:Qty: 1 on 11/16/2022 at [facility] [place] [employer] [id number] 08/10/2023 [id number] TW / / [id number] Clip Delivery Sytem G4 Xtw - [id number] Implanted:Qty: 1 on 11/16/2022 at [facility] [place] [employer] [id number] 09/10/2023 [id number] TW / / [id number] documented as of this encounter Advance [...] and were consensually agreed upon. Care Teams Certified Pharmacy Technician Relationship Specialty Start Date End Date Benny Waite DO [address] [facility] [place] [address] PCP - General Internal Medicine 11/25/23 documented as of this encounter
--- OUTSIDE RECORDS SUMMARY | 2024-03-26 09:50 | External Medical Summary | Summary of Care ---
Author Name Unknown Organization [facility] Address [address] [place] [address] Phone [phone] Care Team Providers Care Shelter Case Manager Name Role Phone Benny Waite DO Primary Care Provider [phone] Reason for Visit * Reason Onset Date Comments [facility]: Maintenance 03/14/2024 Encounter Details Date Type Department Care Team (Late st Contact Info) Description 03/14/2024 Telephone [facility] [place] [address] [place] [address] Corwin Block, DEX [address] [place] [address] [facility]: Maintenance Allergies [...] 137 MCG/SPRAY Nasal SolutionIndication s:Allergies Administer 1 [place] into each nostril 2 times a day [...] without results. 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 02/05/2022 Permanent atrial fibrillation 12/22/2021 Overview: Added automatically from request for surgery [id number] Last Assessment & Plan: S/p Watchman Current [...] mRNA, LNP-s, No Pre serve, 2-Dose Series (ADOMIC (formerly [employer])) 05/14/2021 COVID-19, LNP-s, No Preserve , Robbie-sucrose, Ages 12+ (Pfizer) 11/04/2021 COVID-19, MRNA-LNP, 23-24, P F, 30 MCG/0.3 mL, 12 YRS AND ABOVE, IM ([facility]) 11/29/2023,04/16/2023 Covid-19, Mrna, Lnp-s, Pf, B [...] No 07/30/2023 Does the household have a [facility] [[email or web address]]lar source of income? (Household - for ages [...] wants to talk to someone about his [facility] readings. Teams message sent to Intake. Charlotte Medel RN [facility] Intake [phone] * Telephone Encounter - Agatha Reddy LPN - 03/14/2024 11:13 AM EDT Images from the original note were not included. Call back to patient [place] on home phone Call to patient [facility] full on cell And home phone rings and rings then goes busy rental sales representative will try later * Telephone Encounter - Corwin Block OSA - 03/14/2024 11:01 AM EDT PC from pt asking to speak to someone regarding his readings last night. INSURANCE VERIFICATION REPRESENTATIVE asked that a nurse from the enrollment chat via Teams would be able to call pt back to follow up. documented in this encounter Plan of Treatment Upcoming Encounters Date Type Department Care Team (Late st Contact Info) Description 03/18/2024 11:55 AM EDT Imaging Radiology [address] 132 [facility] [place] [address] 03/18/2024 1:00 PM EDT Imaging Radiology [address] [place] [address] 03/23/2024 10:00 AM EDT [facility], [facility] 132 [facility] [place] [address] Myrtle Allen RN 132 [facility] [address] 04/04/2024 8:00 AM EDT Office Visit Family Practice [address] [place] [address] 293 [place] [address] Benny Waite, 293 [place] [address] 04/25/2024 1:40 PM EST Telemedicine [facility], [facility] 132 [facility] [place] [address] Yadira Omalley CRNP 132 [facility] [place] [address] Ines Castro, Community Health Corn Grower [address] [place] [address] 05/24/2024 9:15 AM EST Hospital Encounter [facility], Operating Room [facility] [address] [place] [address] Amador Christian, DO [address] [place] [address] 05/24/2024 9:15 AM EST - 05/24/2024 9:40 AM EST Surgery OR [facility], Operating Room [facility] [address] [place] [address] Amador Christian, DO [address] [place] [address] INJECTION SPINE LUMBAR OR SACRAL 07/12/2024 8:00 AM EST Office Visit Cardiology, [facility] [address] [place] [address] Júnior Coppola PA-C [address] [place] [address] 08/14/2024 10:00 AM EST Office Visit Cardiology, [facility] [address] [place] [address] Casimiro Barraza MD [address] [place] [address] Scheduled Procedures Name Priority Associated Diagnoses Date/Ti [...] this encounter Medical Devices Implanted Type Area Vp Medical Device Identifier Shelf Expiration Date Model / Serial / Lot Device Watchman Flx 35mm - [id number] Implanted:Qty: 1 on 02/05/2022 by Diamond Teran IV, [place] [facility] [place] [employer] : INTRV CARD [id number] 10/20/2024 [id number] / / [id number] Cath Thermodilution 6fr - [id number] Implanted:Qty: 1 on 07/31/2022 by Franco Mcgregor [place] [facility] [place] [employer] [id number] 04/30/2024 [id number] / / [id number] Mirtaclip G4 - [id number] Implanted:Qty: 1 on 11/16/2022 [place] [facility] [place] [employer] 06/25/2023 [id number] / / [id number] Clip Delivery Sytem G4 Xtw - [id number] Implanted:Qty: 1 on 11/16/2022 [place] [facility] [place] [employer] [id number] 08/10/2023 [id number] / / [id number] Clip Delivery Sytem G4 Xtw - [id number] Implanted:Qty: 1 on 11/16/2022 [place] [facility] [place] [employer] [id number] 09/10/2023 [id number] / / [id number] documented as of this encounter Advance [...] and were consensually agreed upon. Care Teams Shelter Case Manager Relationship Specialty Start Date End Date Benny Waite DO [address] [place] [address] PCP - General Internal Medicine 11/25/23 documented as of this encounter
--- OUTSIDE RECORDS SUMMARY | 2024-03-26 09:50 | External Medical Summary | Summary of Care ---
Author Name Unknown Organization [facility] Address [address] [place] [address] Phone [phone] Care Team Providers Care Director Operations Name Role Phone Benny Waite DO Primary Care Provider [phone] Reason for Visit * Reason Onset Date Comments Appointment 03/10/2024 Encounter Details Date Type Department Care Team (Late st Contact Info) Description 03/10/2024 Telephone [facility], [facility] [address] [place] [address] Zoe Thompson OSA [address] [place], [place] [id number] Appointment Allergies Active Allergy Reactions Criticality Noted Date Comments Adhesive Tape 02/04/2017 Duloxetine High 07/13/2023 Other Reaction(s): confusion Levofloxacin 09/01/2019 documented as of this encounter (statuses as of 03/10/2024) Medications Medication Sig Dispensed Refills Start Date [...] 137 MCG/SPRAY Nasal SolutionIndication s:Allergies Administer 1 [place] into each nostril 2 times a day [...] as of this encounter (statuses as of 03/10/2024) Active Problems Problem Noted Date Diagnosed Date [...] night without results. 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 02/05/2022 Permanent atrial fibrillation 12/22/2021 Overview: Added automatically from request for surgery [id number] Last Assessment & Plan: S/p Watchman Current [...] the Comments) Remote Patient Monitoring Vendor: [facility] Device(s): Connected Scale Self - Management Plan [...] as of this encounter (statuses as of 03/10/2024) Resolved Problems Problem Noted Date Diagnosed Date [...] as of this encounter (statuses as of 03/10/2024) Immunizations Name Administration Dates Next Due COVID-19 [...] encounter Miscellaneous Notes * Telephone Encounter - Zoe Thompson OSA - 03/10/2024 12:18 PM EDT Per Request - spoke with sleep medicine at [facility] - they do not have any sooner appointment. They will put him on a fast pass list so if someone cancels they will contact the patient for a sooner appointment. documented in this encounter Plan of Treatment Upcoming Encounters Date Type Department Care Team (Late st Contact Info) Description 03/18/2024 11:55 AM EDT Imaging Radiology [address] [place] [address] 03/18/2024 1:00 PM EDT Imaging Radiology [address] [place] [address] 03/23/2024 10:00 AM EDT Home Visit [facility] [address] [place] [address] Myrtle Allen, RN 132 [place] [address] 04/04/2024 8:00 AM EDT Office Visit Family Practice [address] [facility] [place] 293 [place] [address] Benny Waite, DO 293 [place] [address] 04/25/2024 1:40 PM EST Telemedicine [facility], [facility] [place] [address] Yadira Omalley CRNP [address] [place] [address] Ines Castro, Community Health Management Professional [address] [place] [address] 05/24/2024 9:15 AM EST Hospital Encounter [facility], Operating Room [facility] [address] [place] [phone] Amador Christian DO [address] [place] [address] 05/24/2024 9:15 AM EST - 05/24/2024 9:40 AM EST Surgery OR [facility], Operating Room [facility] [address] [place] [address] Amador Christian DO [address] [place] [address] INJECTION SPINE LUMBAR OR SACRAL 07/12/2024 8:00 AM EST Office Visit Cardiology, [facility] [address] [place] [address] Júnior Coppola PA-C [address] [place] [address] 08/14/2024 10:00 AM EST Office Visit Cardiology, [facility] [address] [place] [address] Casimiro Barraza MD [address] [place] [address] Scheduled Procedures Name Priority Associated Diagnoses Date/Ti [...] this encounter Medical Devices Implanted Type Area Airport Refueling Handler Device Identifier Shelf Expiration Date Model / Serial / Lot Device Watchman Flx 35mm - [id number] Implanted:Qty: 1 on 02/05/2022 by Diamond Teran IV, [place] [facility] [employer] : INTRV CARD [id number] 10/20/2024 [id number] 50 / / [id number] Cath Thermodilution 6fr - [id number] Implanted:Qty: 1 on 07/31/2022 by Franco Mcgregor MD at [facility] [employer] [id number] 04/30/2024 [id number] / / [id number] Mirtaclip G4 - [id number] Implanted:Qty: 1 on 11/16/2022 at [facility] [employer] 06/25/2023 [id number] / / [id number] Clip Delivery Sytem G4 Xtw - [id number] Implanted:Qty: 1 on 11/16/2022 at [facility] [employer] [id number] 08/10/2023 [id number] / / [id number] Clip Delivery Sytem G4 Xtw - [id number] Implanted:Qty: 1 on 11/16/2022 at [facility] [employer] [id number] 09/10/2023 [id number] / / [id number] documented as of this encounter Advance [...] were consensually agreed upon. Care Teams Director Operations Relationship Specialty Start Date End Date Benny Waite DO [address] [place] [address] PCP - General Internal Medicine 11/25/23 documented as of this encounter
--- OUTSIDE RECORDS SUMMARY | 2024-03-26 09:50 | External Medical Summary | Summary of Care ---
Author Name Unknown Organization [facility] Address [address] [facility] [place] [address] Phone [phone] Care Team Providers Care Debone Processing Supervisor Name Role Phone Benny Waite DO Primary Care Provider Reason for Visit * Reason Onset Date Comments [facility]: Maintenance 03/10/2024 Encounter Details Date Type Department Care Team (Late st Contact Info) Description 03/10/2024 Telephone [facility], [facility] [address] [facility] [place] [address] Claribel Quiles, MICHELLE [address] [facility] [place] [phone] [facility]: Maintenance Allergies Active Allergy [...] 137 MCG/SPRAY Nasal SolutionIndication s:Allergies Administer 1 [place] into each nostril 2 times a day [...] night without results. 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 (Household - for [...] 03/18/2024 11:55 AM EDT Imaging Radiology [address] 132 [facility] [place] [address] 03/18/2024 1:00 PM EDT Imaging Radiology [address] [place] [address] 03/23/2024 10:00 AM EDT Home Visit [facility], [facility] 132 [facility] [place] [address] Myrtle Allen, RN 132 [facility] [place] [address] 04/04/2024 8:00 AM EDT Office Visit Family Practice [address] [place] [address] 293 [facility] [place] [address] Benny Waite, 293 [place] [address] 04/25/2024 1:40 PM EST Telemedicine [facility], [facility] [place] [address] Yadira Omalley CRNP [address] [place] [address] Ines Castro, Community Health Vegetable Picker [address] [place] [address] 05/24/2024 9:15 AM EST Hospital Encounter [facility], Operating Room [facility] [place] [phone] Amador Christian DO [address] [place] [phone] 05/24/2024 9:15 AM EST - 05/24/2024 9:40 AM EST Surgery OR [facility], Operating Room [facility] [place] [phone] Amador Christian DO [address] [place] [address] INJECTION SPINE LUMBAR OR SACRAL 07/12/2024 8:00 AM EST Office Visit Cardiology, [facility] [address] [place] [address] Júnior Coppola PA-C [address] [place] [address] 08/14/2024 10:00 AM EST Office Visit Cardiology, [facility] [address] [place] [address] Casimiro Barraza MD [address] [place] [address] Scheduled Procedures Name Priority Associated Diagnoses Date/Ti [...] this encounter Medical Devices Implanted Type Area Citizenship Teacher Device Identifier Shelf Expiration Date Model / Serial / Lot Device Watchman Flx 35mm - [id number] Implanted:Qty: 1 on 02/05/2022 by Diamond Teran IV, [place] [facility] [employer] : INTRV CARD [id number] 10/20/2024 [id number] 50 / / [id number] Cath Thermodilution 6fr - [id number] Implanted:Qty: 1 on 07/31/2022 by Franco Mcgregor MD at [facility] [employer] [id number] 04/30/2024 [id number] / / [id number] Mirtaclip G4 - [id number] Implanted:Qty: 1 on 11/16/2022 at [facility] [email or web address] 06/25/2023 [id number] / / [id number] Clip Delivery Sytem G4 Xtw - [id number] Implanted:Qty: 1 on 11/16/2022 at [facility] [email or web address] [id number] 08/10/2023 [id number] / / [id number] Clip Delivery Sytem G4 Xtw - [id number] Implanted:Qty: 1 on 11/16/2022 at [facility] [employer] [id number] 09/10/2023 [id number] / / [id number] documented as of this encounter Advance [...] and were consensually agreed upon. Care Teams Debone Processing Supervisor Relationship Specialty Start Date End Date Benny Waite DO [address] [place] [address] PCP - General Internal Medicine 11/25/23 documented as of this encounter
--- OUTSIDE RECORDS SUMMARY | 2024-03-26 09:50 | External Medical Summary | Summary of Care ---
Author Name Unknown Organization [facility] Address [address] [place] [address] Phone [phone] Care Team Providers Care Healthcare Architect Name Role Phone Benny Waite DO Primary Care Provider [phone] Reason for Visit * Reason Onset Date Comments Appointment 03/10/2024 Encounter Details Date Type Department Care Team (Late st Contact Info) Description 03/10/2024 Telephone [facility] [address] [place] [address] Zoe Thompson OSA [address] [place], [place] [address] Appointment Allergies Active Allergy Reactions Criticality Noted [...] 137 MCG/SPRAY Nasal SolutionIndication s:Allergies Administer 1 [place] into each nostril 2 times a day [...] MVR (mitral valve repair) 11/16/2022 Atherosclerosis of [place] co 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 pectoris 08/11/2022 Severe tricuspid regurgitation 08/11/2022 Gout, arthropathy 07/20/2022 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 Spoke with patient and confirmed. documented in this encounter Plan of Treatment Upcoming Encounters Date Type Department Care Team (Late st Contact Info) Description 03/18/2024 11:55 AM EDT Imaging Radiology [address] 132 [facility] [place] [address] 03/18/2024 1:00 PM EDT Imaging Radiology [address] [place] [address] 03/23/2024 10:00 AM EDT Home Visit [facility] [address] [address] Myrtle Allen RN 132 [place] [address] 04/04/2024 8:00 AM EDT Office Visit Family Practice [address] [place] [address], [place] [facility] [address] Benny Waite, DO [address] [place] [address] 04/25/2024 1:40 PM EST Telemedicine [facility], [facility] [address] [place] [address] Yadira Omalley CRNP [address] [place] [address] Ines Castro, Community Health Sheltered Workshop Worker [address] [place] [address] 05/24/2024 9:15 AM EST Hospital Encounter OR [facility], Operating Room [facility] [address] [place] [address] Amador Christian, [address] [place] [phone] 05/24/2024 9:15 AM EST - 05/24/2024 9:40 AM EST Surgery OR [facility], Operating Room [facility] [address] [place] [phone] Amador Christian, [address] [place] [address] INJECTION SPINE LUMBAR OR SACRAL 07/12/2024 8:00 AM EST Office Visit Cardiology, [facility] [address] [place] [address] Júnior Coppola PAClifC [address] [place] [address] 08/14/2024 10:00 AM EST Office Visit Cardiology, [facility] [address] [place] [address] Casimiro Barraza MD [address] [place] [address] Scheduled Procedures Name Priority Associated Diagnoses Date/Ti [...] this encounter Medical Devices Implanted Type Area Quarter Seamer Device Identifier Shelf Expiration Date Model / Serial / Lot Device Watchman Flx 35mm - [id number] Implanted:Qty: 1 on 02/05/2022 by Diamond Teran IV, MD at [facility] [employer] : INTRV CARD [id number] 10/20/2024 [id number] 50 / / [id number] Cath Thermodilution 6fr - [id number] Implanted:Qty: 1 on 07/31/2022 by Franco Mcgregor MD at [facility] [employer] [id number] 04/30/2024 [id number] / / [id number] Mirtaclip G4 - [id number] Implanted:Qty: 1 on 11/16/2022 at [facility] [employer] 06/25/2023 [id number] / / [id number] Clip Delivery Sytem G4 Xtw - [id number] Implanted:Qty: 1 on 11/16/2022 at [facility] [employer] [id number] 08/10/2023 [id number] TW / / [id number] Clip Delivery Sytem G4 Xtw - [id number] Implanted:Qty: 1 on 11/16/2022 at [facility] [employer] [id number] 09/10/2023 [id number] TW / / [id number] documented as of this encounter Advance [...] and were consensually agreed upon. Care Teams Healthcare Architect Relationship Specialty Start Date End Date Benny Waite DO [address] [place] [address] PCP - General Internal Medicine 11/25/23 documented as of this encounter
--- OUTSIDE RECORDS SUMMARY | 2024-03-26 09:50 | External Medical Summary | Summary of Care ---
Author Name Unknown Organization [facility] Address [address] [facility] [place] [address] Phone [phone] Care Team Providers Care Multicultural Internship Name Role Phone Benny Waite DO Primary Care Provider [phone] Reason for Visit * Reason Onset Date Comments [facility]: Maintenance 03/10/2024 Encounter Details Date Type Department Care Team (Late st Contact Info) Description 03/10/2024 Telephone [facility], [facility] [address] [facility] [place] [address] Irlanda Real, LINK CUTTER [address] [facility] [place] [address] [facility]: Maintenance Allergies Active Allergy [...] 137 MCG/SPRAY Nasal SolutionIndication s:Allergies Administer 1 [place] into each nostril 2 times a day [...] MVR (mitral valve repair) 11/16/2022 Atherosclerosis of napaim[place] co 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 pectoris 08/11/2022 Severe tricuspid regurgitation 08/11/2022 Gout, arthropathy 07/20/2022 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) 05/14/2021 COVID-19, LNP-s, No Preserve , Robbie-sucrose, Ages 12+ (Pfizer) 11/04/2021 COVID-19, MRNA-LNP, 23-24, P F, 30 MCG/0.3 mL, 12 YRS AND ABOVE, IM ([employer]-Comirnat) 11/29/2023,04/16/2023 Covid-19, Mrna, Lnp-s, Pf, B ivalent, [...] No 07/30/2023 Does the household have a [facility] source of income? (Household - for [...] Telephone Encounter - Iris Guerra LPN - 03/10/2024 12:22 PM EDT Pt calling back. Reports he took his medications and now rechecked his vitals. BP is 111/71 HR 77. SpO2 85% However, reports he is NOT wearing his O2. Asked pt to apply his oxygen. SpO2 up to 96% now. Pt states he doesn't wear his oxygen all of the time like he is supposed to. Pt also added that he wants to know why we need to call him multiple times about the same thing. I asked what he was referring to and he said for his MRI test. Apologized and explained to pt that it appears they wanted to make sure he knew his results of his US study. Pt verbalized he was getting upset about all of his appointments and ended the call before his BP goes up. Will monitor and send to [facility]. Iris Guerra LPN [facility] 03/10/2024,12:22 PM * Telephone Encounter - Irlanda Real LPN - 03/10/2024 9:04 AM EDT Images from the original note were not included. [facility] Remote Patient Monitoring Able to contact patient: Trigger type: Abnormal reading(s): AMC (Advanced Monitored Caregiving): Blood Pressure Cuff: Blood pressure per cuff: 153/102 Trigger priority per AMC: high Patient takes medication to control blood pressure: No Symptom review: Headache slight Diet Reviewed: N/A Fluid Intake Reviewed: N/A [...] Confirmed SBP greater than 170 WITH symptoms [x] Confirmed DBP greater than 90 WITH symptoms Additional risk selection justification: Called received from pt for BP reading. BP 153/102. Pt c/oslight headache. Denies chest discomfort, - palpitations, - dizziness, - change in vision, - SOB, -edema. He did not take any of his medications this morning. Pt will take his medications and recheck his BP in approx 1 hr and call [facility] with any concerns. Overall risk and identified plan: High risk: Route to RNCM (Registered Nurse Director Child Abuse Therapy) and Advance Practitioner documented in this encounter Plan of Treatment Upcoming Encounters Date Type Department Care Team (Late st Contact Info) Description 03/18/2024 11:55 AM EDT Imaging Radiology [address] 132 [facility] [place] [address] 03/18/2024 1:00 PM EDT Imaging Radiology [address] 132 [facility] [place] [address] 03/23/2024 10:00 AM EDT Home Visit [facility], [facility] 132 [facility] [place] [address] Myrtle Allen RN 132 [facility] [address] 04/04/2024 8:00 AM EDT Office Visit Family Practice [address] [place] [address], [place] 293 [place] [address] Benny Waite, DO [address] [place] [address] 04/25/2024 1:40 PM EST Telemedicine [facility], [facility] 132 [facility] [place] [address] Yadira Omalley CRNP 132 [facility] [address] Ines Castro, Community Health Mother Helper [address] [place] [address] 05/24/2024 9:15 AM EST Hospital Encounter OR [facility], Operating Room [facility] 132 [facility] [place] [phone] Amador Christian, 132 [facility] [place] [address] 05/24/2024 9:15 AM EST - 05/24/2024 9:40 AM EST Surgery OR [facility], Operating Room [facility] [address] [place] [phone] Amador Christian DO [address] [place] [address] INJECTION SPINE LUMBAR OR SACRAL 07/12/2024 8:00 AM EST Office Visit Cardiology, [facility] [address] [place] [address] Júnior Coppola PA-C [address] [place] [address] 08/14/2024 10:00 AM EST Office Visit Cardiology, [facility] [address] [place] [address] Casimiro Barraza MD [address] [place] [address] Scheduled Procedures Name Priority Associated Diagnoses Date/Ti [...] this encounter Medical Devices Implanted Type Area Regional Wildlife Agent Device Identifier Shelf Expiration Date Model / Serial / Lot Device Watchman Flx 35mm - [id number] Implanted:Qty: 1 on 02/05/2022 by Diamond Teran IV, MD at [facility] [employer] : INTRV CARD [id number] 10/20/2024 [id number] / / [id number] Cath Thermodilution 6fr - [id number] Implanted:Qty: 1 on 07/31/2022 by Franco Mcgregor MD at [facility] [employer] [id number] 04/30/2024 [id number] / / [id number] Mirtaclip G4 - [id number] Implanted:Qty: 1 on 11/16/2022 at [facility] [employer] 06/25/2023 [id number] / / [id number] Clip Delivery Sytem G4 Xtw - [id number] Implanted:Qty: 1 on 11/16/2022 at [facility] [employer] [id number] 08/10/2023 [id number] TW / / [id number] Clip Delivery Sytem G4 Xtw - [id number] Implanted:Qty: 1 on 11/16/2022 at [facility] [employer] [id number] 09/10/2023 [id number] / / [id number] documented as of this encounter Advance [...] and were consensually agreed upon. Care Teams Multicultural Internship Relationship Specialty Start Date End Date Benny Waite DO 293 [place] [address] PCP - General Internal Medicine 11/25/23 documented as of this encounter
--- OUTSIDE RECORDS SUMMARY | 2024-03-26 09:50 | External Medical Summary | Summary of Care ---
Author Name Unknown Organization [facility] Address [address] [facility] [place] [address] Phone [phone] Care Team Providers Care Biology Adjunct Instructor Name Role Phone Benny Waite DO Primary Care Provider [phone] Reason for Visit * Reason Onset Date Comments [facility]: Maintenance 03/13/2024 Encounter Details Date Type Department Care Team (Late st Contact Info) Description 03/13/2024 Telephone [facility], [facility] [address] [facility] [place] [address] Irlanda Real, FURNACE CLEANER [address] [facility] [place] [address] [facility]: Maintenance Allergies Active Allergy Reactions Criticality Noted Date Comments Adhesive Tape 02/04/2017 Duloxetine High 07/13/2023 Other Reaction(s): confusion Levofloxacin 09/01/2019 documented as of this encounter (statuses as of 03/13/2024) Medications Medication Sig Dispensed Refills Start Date [...] 137 MCG/SPRAY Nasal SolutionIndication s:Allergies Administer 1 [place] into each nostril 2 times a day [...] as of this encounter (statuses as of 03/13/2024) Active Problems Problem Noted Date Diagnosed Date [...] (mitral valve repair) 11/16/2022 Atherosclerosis of [place] co 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 pectoris 08/11/2022 Severe tricuspid regurgitation 08/11/2022 Gout, arthropathy 07/20/2022 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 02/05/2022 Permanent atrial fibrillation 12/22/2021 Overview: Added automatically from request for surgery [id number] Last Assessment & Plan: S/p Watchman Current [...] as of this encounter (statuses as of 03/13/2024) Resolved Problems Problem Noted Date Diagnosed Date [...] as of this encounter (statuses as of 03/13/2024) Immunizations Name Administration Dates Next Due COVID-19 mRNA, LNP-s, No Pre serve, 2-Dose Series (Moderna) 08/20/2020,07/17/2020 COVID-19 mRNA, LNP-s, No Pre serve, 2-Dose Series (Hammerless) 05/14/2021 COVID-19, LNP-s, No Preserve , Robbie-sucrose, Ages 12+ (Pfizer) 11/04/2021 COVID-19, MRNA-LNP, 23-24, P F, 30 MCG/0.3 mL, 12 YRS AND ABOVE, IM (Ranku-Comirnat) 11/29/2023,04/16/2023 Covid-19, Mrna, Lnp-s, Pf, B ivalent, [...] No 07/30/2023 Does the household have a [facility] source of income? (Household - [...] from the original note were not included. [facility] at Home Remote Patient Monitoring Able to [...] as applicable): [x] High trigger priority on [facility] [] Confirmed tympanic equivalent temperature greater than [...] selection justification: Called pt to F/U on [facility] triggers. Pt c/o continued sore throat and [...] High risk: Route to RNCM (Registered Nurse Telecom Assistant) and Advance Practitioner documented in this encounter Plan of Treatment Upcoming Encounters Date Type Department Care Team (Late st Contact Info) Description 03/18/2024 11:55 AM EDT Imaging Radiology [address] 132 [facility] [place], [place] [address] 03/18/2024 1:00 PM EDT Imaging Radiology [address] [place] [address] 03/23/2024 10:00 AM EDT Home Visit [facility], [facility] 132 [facility] [place] [address] Myrtle Allen, RN 132 [facility] [place], [place] [address] 04/04/2024 8:00 AM EDT Office Visit Family Practice [address] [place] [address] 293 [facility] [place] [address] Benny Waite DO 293 [place] [address] 04/25/2024 1:40 PM EST Telemedicine [facility], [facility] 132 [facility] [place] [address] Yadira Omalley CRNP 132 [facility] [place], [place] [address] Ines Castro, Community Health Ramp And Cargo Supervisor [address] [place] [address] 05/24/2024 9:15 AM EST Hospital Encounter [facility], Operating Room [facility] 132 [facility] [place] [address] Amador Christian, DO 132 [facility] [place] [phone] 05/24/2024 9:15 AM EST - 05/24/2024 9:40 AM EST Surgery [facility], [facility] [place] [phone] Amador Christian DO [address] [place] [address] INJECTION SPINE LUMBAR OR SACRAL 07/12/2024 8:00 AM EST Office Visit Cardiology, [facility] [address] [place] [address] Júnior Coppola PA-C [address] [place] [address] 08/14/2024 10:00 AM EST Office Visit Cardiology, [facility] [address] [place] [address] Casimiro Barraza MD [address] [place] [address] Scheduled Procedures Name Priority Associated Diagnoses Date/Ti [...] this encounter Medical Devices Implanted Type Area Cottage Master Device Identifier Shelf Expiration Date Model / Serial / Lot Device Watchman Flx 35mm - [id number] Implanted:Qty: 1 on 02/05/2022 by Diamond Teran IV, MD at [facility] [employer] : INTRV CARD [id number] 10/20/2024 [id number] 50 / / [id number] Cath Thermodilution 6fr - [id number] Implanted:Qty: 1 on 07/31/2022 by Franco Mcgregor MD at [facility] [employer] [id number] 04/30/2024 [id number] / / [id number] Mirtaclip G4 - [id number] Implanted:Qty: 1 on 11/16/2022 at [facility] [employer] 06/25/2023 [id number] / / [id number] Clip Delivery Sytem G4 Xtw - [id number] Implanted:Qty: 1 on 11/16/2022 at [facility] [employer] [id number] 08/10/2023 [id number] / / [id number] Clip Delivery Sytem G4 Xtw - [id number] Implanted:Qty: 1 on 11/16/2022 at [facility] [employer] [id number] 09/10/2023 [id number] / / [id number] documented as of this encounter Advance [...] and were consensually agreed upon. Care Teams Biology Adjunct Instructor Relationship Specialty Start Date End Date Benny Waite DO [address] [place] [address] PCP - General Internal Medicine 11/25/23 documented as of this encounter
--- OUTSIDE RECORDS SUMMARY | 2024-03-26 09:51 | External Medical Summary | Summary of Care ---
Author Name Unknown Organization [facility] [address] [facility] [address] Phone [phone] Care Team Providers Care Veneer Puller Name Role Phone Benny Waite DO Primary Care Provider [phone] Reason for Visit * Reason Onset Date Comments [facility]: Maintenance 03/09/2024 Encounter Details Date Type Department Care Team (Late st Contact Info) Description 03/09/2024 Telephone [facility], [facility] [address] [place] [id number] Annmarie Shaikh, MICROBIOLOGY MANAGER [address] [place] [address] [facility]: Maintenance Allergies Active Allergy Reactions Criticality Noted Date Comments Adhesive Tape 02/04/2017 Duloxetine High 07/13/2023 Other Reaction(s): confusion Levofloxacin 09/01/2019 documented as of this encounter (statuses as of 03/09/2024) Medications Medication Sig Dispensed Refills Start Date [...] 137 MCG/SPRAY Nasal SolutionIndication s:Allergies Administer 1 [place] into each nostril 2 times a day [...] as of this encounter (statuses as of 03/09/2024) Active Problems Problem Noted Date Diagnosed Date [...] results. 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 02/05/2022 Permanent atrial fibrillation 12/22/2021 Overview: Added automatically from request for surgery [id number] Last Assessment & Plan: S/p Watchman Current [...] as of this encounter (statuses as of 03/09/2024) Resolved Problems Problem Noted Date Diagnosed Date [...] as of this encounter (statuses as of 03/09/2024) Immunizations Name Administration Dates Next Due COVID-19 mRNA, LNP-s, No Pre serve, 2-Dose Series (Moderna) 08/20/2020,07/17/2020 COVID-19 mRNA, LNP-s, No Pre serve, 2-Dose Series ([employer]) 05/14/2021 COVID-19, LNP-s, No Preserve , Robbie-sucrose, Ages 12+ ([employer] Factory) 11/04/2021 COVID-19, MRNA-LNP, 23-24, P F, 30 MCG/0.3 mL, 12 YRS AND ABOVE, IM ([facility]) 11/29/2023,04/16/2023 Covid-19, Mrna, Lnp-s, Pf, B ivalent, 30 Mcg, IM, 12 yrs and above ([employer]) 03/17/2022 Pneumococcal Conjugate Vacc, 13 Valent (Prevnar) [...] Date Recorded PHQ Adult Total Score 15 02/02/2024 Hunger Vital Sign Answer Date Recorded Within [...] No 07/30/2023 Does the household have a rustlar source of income? (Household - for ages [...] Telephone Encounter - Annmarie Shaikh LPN - 03/09/2024 11:37 AM EDT Images from the original note were not included. [facility] Remote Patient Monitoring Unable to contact patient: Trigger type: Abnormal reading(s): Device(s) Triggered: AMC (Advanced Monitored Caregiving): Pulse Oximeter: Oxygen saturation per oximeter: 88-93 Pulse rate per oximeter: 101 Trigger priority per AMC: high Baseline oxygen requirements: 2 LPM. Diagnosis related to oxygen use: CHF Pulse Rate: Pulse: 101 Trigger priority per AMC: high Plan: Call to pt no answer left requesting a return call to [facility] at [phone] opt#3 documented in this encounter Plan of Treatment Upcoming Encounters Date Type Department Care Team (Late st Contact Info) Description 03/09/2024 12:30 PM EDT Imaging Radiology [facility] 132 [place] [address] 03/23/2024 10:00 AM EDT Home Visit ising at [facility] 132 [place] [address] Myrtle Allen RN [address] [place] [address] 04/04/2024 8:00 AM EDT Office Visit Family Practice [address] [place] [address] 293 [facility] [address] Benny Waite, DO 293 [facility] [place] [address] 04/25/2024 1:40 PM EST Telemedicine [facility], [facility] [address] [place] [address] Yadira Omalley CRNP [address] [place] [address] Ines Castro, Community Health E Commerce Solution Architect [address] [place] [address] 05/24/2024 9:15 AM EST Hospital Encounter OR [facility], Operating Room [facility] [address] [place] [address] Amador Christian, [address] [place] [address] 05/24/2024 9:15 AM EST - 05/24/2024 9:40 AM EST Surgery OR [facility], Operating Room [facility] [address] [place] [address] Amador Christian, DO [address] [place] [address] INJECTION SPINE LUMBAR OR SACRAL 07/12/2024 8:00 AM EST Office Visit Cardiology, [facility] [address] [place] [address] Júnior Coppola PA-C [address] [place] [address] 08/14/2024 10:00 AM EST Office Visit Cardiology, [facility] [address] [place] [address] Casimiro Barraza MD [address] [place] [address] Scheduled Procedures Name Priority Associated Diagnoses Date/Ti [...] this encounter Medical Devices Implanted Type Area Speeder Machine Operator Device Identifier Shelf Expiration Date Model / Serial / Lot Device Watchman Flx 35mm - [id number] Implanted:Qty: 1 on 02/05/2022 by Diamond Teran IV, MD at [facility] [employer] : INTRV CARD [id number] 10/20/2024 [id number] 50 / / [id number] Cath Thermodilution 6fr - [id number] Implanted:Qty: 1 on 07/31/2022 by Franco Mcgregor MD at [facility] [employer] [id number] 04/30/2024 [id number] / / [id number] Mirtaclip G4 - [id number] Implanted:Qty: 1 on 11/16/2022 at [facility] [employer] 06/25/2023 [id number] / / [id number] Clip Delivery Sytem G4 Xtw - [id number] Implanted:Qty: 1 on 11/16/2022 at [facility] [employer] [id number] 08/10/2023 [id number] / / [id number] Clip Delivery Sytem G4 Xtw - [id number] Implanted:Qty: 1 on 11/16/2022 at [facility] [employer] [id number] 09/10/2023 [id number] / / [id number] documented as of this encounter Advance [...] and were consensually agreed upon. Care Teams Veneer Puller Relationship Specialty Start Date End Date Benny Waite DO [address] [place] [facility] [place] [address] PCP - General Internal Medicine 11/25/23 documented as of this encounter
--- OUTSIDE RECORDS SUMMARY | 2024-03-26 09:51 | External Medical Summary | Summary of Care ---
Author Name Unknown Organization [facility] Address [address] [facility] [place] [address] Phone [phone] Care Team Providers Care Senior Data Modeler Name Role Phone Benny Waite DO Primary Care Provider [phone] Reason for Visit * Reason Onset Date Comments [facility]: Acute 03/03/2024 Encounter Details Date Type Department Care Team (Late st Contact Info) Description 03/03/2024 Telephone [facility], [facility] [address] [facility] [place] [address] Micheline Medrano RN [address] [facility] [place] Denney [id number] [facility]: Acute Allergies Active Allergy Reactions Criticality Noted Date Comments Adhesive Tape 02/04/2017 Duloxetine High 07/13/2023 Other Reaction(s): confusion Levofloxacin 09/01/2019 documented as of this encounter (statuses as of 03/06/2024) Medications Medication Sig Dispensed Refills Start Date [...] 137 MCG/SPRAY Nasal SolutionIndication s:Allergies Administer 1 [place] into each nostril 2 times a day [...] the morning. 100 Tablet 3 02/22/2024 Active Amoxicillin-Pot Clavulanate 875-125 MG Oral Tablet Take 1 Tablet by mouth in the morning and 1 Tablet before bedtime. Do all this for 10 days. 20 Tablet 02/24/2024 4 Doxycycline Hyclate 100 MG Oral Capsule Take 1 Capsule by mouth in the morning and 1 Capsule before bedtime. Do all this for 10 days. 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 08/20/2020,07/17/2020 COVID-19 mRNA, LNP-s, No Pre serve, 2-Dose Series (Pfizer) 05/14/2021 COVID-19, LNP-s, No Preserve , Robbie-sucrose, Ages 12+ (Pfizer) 11/04/2021 COVID-19, MRNA-LNP, 23-24, P F, 30 MCG/0.3 mL, 12 YRS AND ABOVE, IM ([facility]) 11/29/2023,04/16/2023 Covid-19, Mrna, Lnp-s, Pf, B [...] Telephone Encounter - Micheline Medrano RN - 03/03/2024 4:04 PM EDT I spoke with him * Telephone Encounter - Marnie Baker LPN - 03/03/2024 4:01 PM EDT Thank you, would you like us to call or will you? * Telephone Encounter - Micheline Medrano RN - 03/03/2024 3:31 PM EDT Phone call to patient to make him aware of both doctors recommendations, verbalized understanding. Encouraged to call over the weekend if needed. Please note patient takes Gabapentin 300 mg TID not 800 mg TID Follow up call on Wednesday MERLINE Iverson Registered Nurse Navigator Triage [facility] * Telephone Encounter - Benny Waite DO - 03/03/2024 3:16 PM EDT Start Lidoderm 4 % patch to most painful area. Change daily * Telephone Encounter - Gm Javed MD - 03/03/2024 2:46 PM EDT I recommend she contact her pain doctor and/or PCP about her pain. I'll cc both on this message. [facility] does not manage chronic back pain. Until she can reach them, she can maximize tylenol 1 g qid, use heating pad, topical analgesics like biofreeze. Make sure she is taking africa 800 mg tid as rx'd. * Telephone Encounter - Micheline Medrano RN - 03/03/2024 1:47 PM EDT [facility] guide changer Acute Call Date: 03/03/2024 Time: 1:47 PM Name: Nikolas Silvestre : 1940 Caller: Nikolas Relationship to self No chief complaint on file. HPI: Nikolas Silvestre is a 83 year old male that is calling [facility] to report that 6/10 pain to left lower back that radiates into the left side of neck for the past 2 days, feels its getting progressively worst, compliant with all of his medications. Had back injection several weeks ago and unsure what he could take for the pain. Nursing Assessment: Patient's chief complaint for this call: Other, describe back pain Pain Has pain Pain level: 6 Location: left lower back Quality of Pain: dull stabbing pain Does the pain radiate: Yes Location(s) pain is radiating into neck region Baseline Assessment Able to performing ADLs at baseline (walking, daily tasks, etc.): Yes Chief Complaint is related to a chronic condition: Unknown Patient prescribed oxygen? Yes, 2L/min Patient has been ordered DME equipment (assistive devices, respiratory equipment, etc.): Unknown Medication Reconciliation: Received flu shot this season: No Taking medication as ordered: Yes Medications ordered/taking to treat reason for call: No Heart failure symptoms: No COPD exacerbation symptoms: No Reinforcement Education: Routed to [facility] for recommendations Treatment/Plan: Level of call: Acute Appointment scheduled for same day: No Provider Name: NA Treatment plan until appointment: take all medications as directed Call back instructions provided to patient. MERLINE Iverson Registered Nurse Navigator Triage [facility] documented in this encounter Plan of Treatment Upcoming Encounters Date Type Department Care Team (Late st Contact Info) Description 03/07/2024 9:15 AM EDT Scheduled Telephone [facility], [facility] [address] [place] [address] Coordinator, [facility] [address] [place] [address] 03/08/2024 10:15 AM EDT Scheduled Telephone [facility], [facility] [address] [place] [address] Coordinator, [facility] [address] [place] [address] 03/09/2024 12:30 PM EDT Imaging Radiology [facility] [address] [place] [address] 03/23/2024 10:00 AM EDT Home Visit [facility], [facility] [address] [place] [address] Myrtle Allen, RN 132 [facility] [place] [address] 04/04/2024 8:00 AM EDT Office Visit Family [facility] [address] [facility] [place] 293 [facility] [address] Benny Waite, DO 293 [place] [address] 04/25/2024 1:40 PM EST Telemedicine [facility], [facility] [address] [place] [address] Yadira Omalley CRNP [address] [place] [address] Ines Castro, Community Health Teacher Advisor [address] [place] [address] 05/24/2024 9:15 AM EST Hospital Encounter [facility], Operating Room [facility] [address] [place] [phone] Amador Christian, [address] [place] [phone] 05/24/2024 9:15 AM EST - 05/24/2024 9:40 AM EST Surgery OR [facility], Operating Room [facility] [address] [place] [phone] Amador Christian, [address] [place] [address] INJECTION SPINE LUMBAR OR SACRAL 07/12/2024 8:00 AM EST Office Visit Cardiology, [facility] [address] [place] [address] Júnior Coppola PA-C [address] [place] [address] 08/14/2024 10:00 AM EST Office Visit Cardiology, [facility] [address] [place] [address] Casimiro Barraza MD [address] [place] [address] Scheduled Procedures Name Priority Associated Diagnoses Date/Ti [...] Visit 12/20/2024 12/21/2023, 12/16/2022, 04/10/2022 Depression Monitoring 02/01/2025 02/02/2024 , 12/21/2023, 10/12/2023, Additional history exists Albumin/Creatinine [...] this encounter Medical Devices Implanted Type Area Personal Fitness Trainer Device Identifier Shelf Expiration Date Model / Serial / Lot Device Watchman Flx 35mm - [id number] Implanted:Qty: 1 on 02/05/2022 by Diamond Teran IV, MD at [facility] [employer] : INTRV CARD [id number] 10/20/2024 [id number] / / [id number] Cath Thermodilution 6fr - [id number] Implanted:Qty: 1 on 07/31/2022 by Franco Mcgregor MD at [facility] [employer] [id number] 04/30/2024 [id number] / / [id number] Mirtaclip G4 - [id number] Implanted:Qty: 1 on 11/16/2022 at [facility] [employer] 06/25/2023 [id number] / / [id number] Clip Delivery Sytem G4 Xtw - [id number] Implanted:Qty: 1 on 11/16/2022 at [facility] [employer] [id number] 08/10/2023 [id number] / / [id number] Clip Delivery Sytem G4 Xtw - [id number] Implanted:Qty: 1 on 11/16/2022 at [facility] [employer] [id number] 09/10/2023 [id number] / / [id number] documented as of this encounter Advance [...] were consensually agreed upon. Care Teams Senior Data Modeler Relationship Specialty Start Date End Date Benny Waite DO [address] [facility] [place] [address] PCP - General Internal Medicine 11/25/23 documented as of this encounter
--- OUTSIDE RECORDS SUMMARY | 2024-03-26 09:51 | External Medical Summary | Summary of Care ---
Author Name Unknown Organization [facility] Address [address] [facility] [place] [address] Phone [phone] Care Team Providers Care Staff Mechanical Engineer Name Role Phone Benny Waite DO Primary Care Provider [phone] Reason for Visit * Reason Onset Date Comments [facility]: Maintenance 03/07/2024 Encounter Details Date Type Department Care Team (Late st Contact Info) Description 03/07/2024 9:15 AM EDT Scheduled Telephone [facility], [facility] [address] [place] [address] Coordinator, [facility] 132 [facility] [place] [address] Allergies Active Allergy Reactions Criticality Noted Date Comments Adhesive Tape 02/04/2017 Duloxetine High 07/13/2023 Other Reaction(s): confusion Levofloxacin 09/01/2019 documented as of this encounter (statuses as of 03/07/2024) Medications Medication Sig Dispensed Refills Start Date [...] 137 MCG/SPRAY Nasal SolutionIndication s:Allergies Administer 1 [place] into each nostril 2 times a day [...] as of this encounter (statuses as of 03/07/2024) Active Problems Problem Noted Date Diagnosed Date [...] Overview: Added automatically from request for surgery [id number] Last Assessment & Plan: S/p Watchman Current [...] as of this encounter (statuses as of 03/07/2024) Resolved Problems Problem Noted Date Diagnosed Date [...] as of this encounter (statuses as of 03/07/2024) Immunizations Name Administration Dates Next Due COVID-19 mRNA, LNP-s, No Pre serve, 2-Dose Series (Moderna) 08/20/2020,07/17/2020 COVID-19 mRNA, LNP-s, No Pre serve, 2-Dose Series ([employer]) 05/14/2021 COVID-19, LNP-s, No Preserve , Robbie-sucrose, Ages 12+ (Pfizer) 11/04/2021 COVID-19, MRNA-LNP, 23-24, P F, 30 MCG/0.3 mL, 12 YRS AND ABOVE, IM ([employer]-Comirnat) 11/29/2023,04/16/2023 Covid-19, Mrna, Lnp-s, Pf, B ivalent, [...] Telephone Encounter - Ines Coates RN - 03/07/2024 9:06 AM EDT Images from the original note were not included. [facility] at Home Telephonic Nurse Follow-Up Call [facility] Subprogram: Focused Care Management (3-9 months) Follow Up Call Type: weekend follow up Acute issue requiring follow-up call: Other: low spo2, in 80s. Objective: 03/06/2024 12:49 PM 03/01/2024 2:41 PM 02/28/2024 8:57 AM 02/23/2024 2:45 PM 02/19/2024 4:22 PM VITALS ACROSS ENCOUNTERS BP 112/68 112/62 118/72 112/68 112/62 Pulse 68 66 88 60 68 Weight 97.8 kg 98.9 kg 98.9 kg BMI 32.18 BMI 31.84 kg/m2 32.19 kg/m2 32.19 kg/m2 Remote Patient Monitoring: [facility] Scale: see below [facility] Blood Pressure Cuff: see below [facility] Pulse Ox: see below Oxygen Needs: INCREASED supplemental oxygen needs from baseline (baseline is 2LPM. Currently using at 3LPM) DME Needs: NO DME needs identified Medications: No medication or dose adjustments made during acute episode SpO2 Readings from Last 10 Encounters: 03/06/24 94% 03/01/24 95% 02/28/24 94% 02/23/24 96% 02/19/24 96% 02/07/24 98% 01/28/24 98% 01/25/24 95% 01/07/24 95% 12/30/23 90% Subjective: Condition Status: Improvement in symptoms but not at baseline Current Concerns: Patient on for follow up call due to low pulse ox RPM Triggers over the weekend. Pt recently treated for pneumonia with doxycyline and Augmentin, both of which were completed 03/05.Patient ordered a prednisone taper during yesterday's acute home visit. Patient reports feeling a little better this morning. Currently eating breakfast. States that when he checked his pulse ox reading this morning, he was not wearing his oxygen. Not wearing currently either. Denies fever/chills or feeling more sob than his baseline. Reinforced wearing continuously as ordered. Patient verbalizes understanding, but declines to wear during eating. Patient will finish eating, reapply his oxygen and test pulse ox after 15 minutes. Will follow up on reading later. Disposition: Follow up call scheduled for tomorrow with WEB OPERATIONS ADMINISTRATORAngela ThomasInstructor Physical Future Visits Scheduled: Future Appointments-next 60 days Date/Time Provider Specialty Dept Phone 03/06/2024 9:30 AM CoordinatorFanny [facility] [phone] 03/09/2024 12:30 PM (Arrive by 12:15 PM) [address] Radiology [phone] 03/23/2024 10:00 AM Myrtle Allen RN [facility] [phone] 04/04/2024 8:00 AM (Arrive by 7:45 AM) Benny Waite, Family Medicine [phone] 04/25/2024 1:40 PM Ines Castro, Community Health Tug Captain; Yadira Omalley CRNP [facility] [phone] 07/12/2024 8:00 AM (Arrive by 7:45 AM) Júnior Coppola PA-C Cardiology [phone] 08/14/2024 10:00 AM (Arrive by 9:45 AM) Casimiro Barraza MD Cardiology [phone] Ines Coates RN documented in this encounter Plan of Treatment Upcoming Encounters Date Type Department Care Team (Late st Contact Info) Description 03/08/2024 10:15 AM EDT Scheduled Telephone [facility], [facility] [address] [place] [address] Coordinator, Fanny Thomas [address] [place] [address] 03/09/2024 12:30 PM EDT Imaging Radiology [facility] [address] [place] [address] 03/23/2024 10:00 AM EDT Home Visit [facility], [facility] [address] [place] [address] Myrtle Allen RN 132 [facility] [place] [address] 04/04/2024 8:00 AM EDT Office Visit Family Practice [address] [place] [address] [address] [place] [address] Benny Waite, 293 [place] [address] 04/25/2024 1:40 PM EST Telemedicine [facility], [facility] [address] [place] [address] Yadira Omalley CRNP 132 [facility] [place] [address] Ines Castro, Community Health Tug Captain [address] [place] [address] 05/24/2024 9:15 AM EST Hospital Encounter OR [facility], Operating Room [facility] [address] [place] [phone] Amador Christian DO 132 [facility] [place] [address] 05/24/2024 9:15 AM EST - 05/24/2024 9:40 AM EST Surgery OR [facility], Operating Room [facility] [address] [place] [phone] Amador Christian DO [address] [place] [address] INJECTION SPINE LUMBAR OR SACRAL 07/12/2024 8:00 AM EST Office Visit Cardiology, [facility] [address] [place] [address] Júnior Coppola PA-C [address] [place] [address] 08/14/2024 10:00 AM EST Office Visit Cardiology, [facility] [address] [place] [address] Casimiro Barraza MD [address] [place] [address] Scheduled Procedures Name Priority Associated Diagnoses Date/Ti [...] this encounter Medical Devices Implanted Type Area Optical Effects Line Up Person Device Identifier Shelf Expiration Date Model / Serial / Lot Device Watchman Flx 35mm - [id number] Implanted:Qty: 1 on 02/05/2022 by Diamond Teran IV, MD at [facility] [employer] : INTRV CARD [id number] 10/20/2024 [id number] / / [id number] Cath Thermodilution 6fr - [id number] Implanted:Qty: 1 on 07/31/2022 by Franco Mcgregor MD at [facility] [employer] [id number] 04/30/2024 [id number] / / [id number] Mirtaclip G4 - [id number] Implanted:Qty: 1 on 11/16/2022 at [facility] [employer] 06/25/2023 [id number] / / [id number] Clip Delivery Sytem G4 Xtw - [id number] Implanted:Qty: 1 on 11/16/2022 at [facility] [employer] [id number] 08/10/2023 [id number] TW / / [id number] Clip Delivery Sytem G4 Xtw - [id number] Implanted:Qty: 1 on 11/16/2022 at [facility] [employer] [id number] 09/10/2023 [id number] / / [id number] documented as of this encounter Advance [...] and were consensually agreed upon. Care Teams Staff Mechanical Engineer Relationship Specialty Start Date End Date Benny Waite DO [address] [place] [address] PCP - General Internal Medicine 11/25/23 documented as of this encounter
--- OUTSIDE RECORDS SUMMARY | 2024-03-26 09:51 | External Medical Summary | Summary of Care ---
Author Name Unknown Organization [facility] Address [address] [facility] [place] [address] Phone [phone] Care Team Providers Care Prop And Effects Designer Name Role Phone Benny Waite DO Primary Care Provider [phone] Reason for Visit * Reason Onset Date Comments [facility]: Maintenance 03/08/2024 Encounter Details Date Type Department Care Team (Late st Contact Info) Description 03/08/2024 10:15 AM EDT Scheduled Telephone [facility], [facility] [address] [place] [address] Coordinator, [facility] 132 [facility] [place] [address] Allergies Active Allergy Reactions Criticality Noted Date Comments Adhesive Tape 02/04/2017 Duloxetine High 07/13/2023 Other Reaction(s): confusion Levofloxacin 09/01/2019 documented as of this encounter (statuses as of 03/08/2024) Medications Medication Sig Dispensed Refills Start Date [...] 137 MCG/SPRAY Nasal SolutionIndication s:Allergies Administer 1 [place] into each nostril 2 times a day [...] as of this encounter (statuses as of 03/08/2024) Active Problems Problem Noted Date Diagnosed Date [...] MVR (mitral valve repair) 11/16/2022 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 08/11/2022 Severe tricuspid regurgitation 08/11/2022 Gout, arthropathy 07/20/2022 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 02/05/2022 Permanent atrial fibrillation 12/22/2021 Overview: Added automatically from request for surgery [id number] Last Assessment & Plan: S/p Watchman Current [...] [facility] Device(s): Connected Scale Self - Management Plan [...] as of this encounter (statuses as of 03/08/2024) Resolved Problems Problem Noted Date Diagnosed Date [...] as of this encounter (statuses as of 03/08/2024) Immunizations Name Administration Dates Next Due COVID-19 mRNA, LNP-s, No Pre serve, 2-Dose Series (Moderna) 08/20/2020,07/17/2020 COVID-19 mRNA, LNP-s, No Pre serve, 2-Dose Series ([employer]) 05/14/2021 COVID-19, LNP-s, No Preserve , Robbie-sucrose, Ages 12+ (Pfizer) 11/04/2021 COVID-19, MRNA-LNP, 23-24, P F, 30 MCG/0.3 mL, 12 YRS AND ABOVE, IM ([employer]-Comirnat) 11/29/2023,04/16/2023 Covid-19, Mrna, Lnp-s, Pf, B ivalent, [...] No 07/30/2023 Does the household have a [facility] source [facility] income? (Household [...] Telephone Encounter - Ines Coates RN - 03/08/2024 12:46 PM EDT [facility] Telephonic Nurse Follow-Up Call [facility] Subprogram: Focused Care Management (3-9 months) [...] 32.19 kg/m2 32.19 kg/m2 Remote Patient Monitoring: [facility] Scale: see below [facility] Blood Pressure Cuff: see below [facility] Pulse Ox: see below Oxygen Needs: INCREASED supplemental oxygen needs from baseline (baseline is 2LPM. Currently using at 3LPM) DME Needs: NO DME needs identified Medications: No medication or dose adjustments made during acute episode Subjective: Condition Status: Symptoms resolved and back to baseline Current Concerns: Patient on for follow up call due to low pulse ox RPM Triggers over the weekend, acute home visit this past week. Pt recently treated for pneumonia with doxycyline and Augmentin, both of which were completed 03/05.Patient ordered a prednisone taper during yesterday's acute home visit. Patient reports that he is feeling back to baseline. Denies increased sob from his baseline. Still getting readings of <90% at times, but this morning was 92% with oxygen on. Reinforced making sure fingers are warm prior to testing. Suggested running under warm water a few minutes before testing. Wearing oxygen as ordered. Reinforced wearing continuously as ordered. Patient verbalizes understanding. Patient states that he can't get into sleep medicine at [facility] until August of 2024. He would like to know if there is a [facility] provider that can see him sooner. He is willing to travel as far as [facility] , but does not want to see any of the same providers in sleep medicine that he has seen in the past. Will send to scheduling. Disposition: Issue resolved. All appropriate follow up scheduled. Future Visits Scheduled: Future Appointments-next 60 days Date/Time Provider Specialty Dept Phone 03/06/2024 9:30 AM Coordinator, Fanny Thomas [facility] [phone] 03/09/2024 12:30 PM (Arrive by 12:15 PM) [address] Radiology [phone] 03/23/2024 10:00 AM Myrtle Allen RN [facility] [phone] 04/04/2024 8:00 AM (Arrive by 7:45 AM) Benny Waite, Family Medicine [phone] 04/25/2024 1:40 PM Ines Castro, Community Health Alignment Mechanic; Yadira Omalley CRNP [facility] [phone] 07/12/2024 8:00 AM (Arrive by 7:45 AM) Júnior Coppola PA-C Cardiology [phone] 08/14/2024 10:00 AM (Arrive by 9:45 AM) Casimiro Barraza MD Cardiology [phone] Ines Coates RN documented in this encounter Plan of Treatment Upcoming Encounters Date Type Department Care Team (Late st Contact Info) Description 03/09/2024 12:30 PM EDT Imaging Radiology [facility] [address] [place] [address] 03/23/2024 10:00 AM EDT Home Visit [facility], [facility] [place] [address] Myrtle Allen, RN [address] [place] [address] 04/04/2024 8:00 AM EDT Office Visit Family Practice [address] [place] [address] 293 [place] [address] Benny Waite, DO 293 [place] [address] 04/25/2024 1:40 PM EST Telemedicine [facility], [facility] [address] [place] [address] Yadira Omalley CRNP [address] [place] [address] Ines Castro, Community Health Alignment Mechanic [address] [place] [address] 05/24/2024 9:15 AM EST Hospital Encounter [facility], Operating Room [facility] [address] [place] [address] Amador Christian, [address] [place] [phone] 05/24/2024 9:15 AM EST - 05/24/2024 9:40 AM EST Surgery OR [facility], Operating Room [facility] [address] [place] [phone] Amador Christian, DO [address] [place] [address] INJECTION SPINE LUMBAR OR SACRAL 07/12/2024 8:00 AM EST Office Visit Cardiology, [facility] [address] [place] [address] Júnior Coppola PAClifC [address] [place] [address] 08/14/2024 10:00 AM EST Office Visit Cardiology, [facility] [address] [place] [address] Casimiro Barraza MD [address] [place] [address] Scheduled Procedures Name Priority Associated Diagnoses Date/Ti [...] this encounter Medical Devices Implanted Type Area Fiction And Nonfiction Author Device Identifier Shelf Expiration Date Model / Serial / Lot Device Watchman Flx 35mm - [id number] Implanted:Qty: 1 on 02/05/2022 by Diamond Teran IV, MD at [facility] [place] [employer] : INTRV CARD [id number] 10/20/2024 [id number] 50 / / [id number] Cath Thermodilution 6fr - [id number] Implanted:Qty: 1 on 07/31/2022 by Franco Mcgregor MD at [facility] [place] [place] [employer] [id number] 04/30/2024 [id number] / / [id number] Mirtaclip G4 - [id number] Implanted:Qty: 1 on 11/16/2022 at [facility] [place] [place] [employer] 06/25/2023 [id number] / / [id number] Clip Delivery Sytem G4 Xtw - [id number] Implanted:Qty: 1 on 11/16/2022 at [facility] [place] [place] [employer] [id number] 08/10/2023 [id number] TW / / [id number] Clip Delivery Sytem G4 Xtw - [id number] Implanted:Qty: 1 on 11/16/2022 at [facility] [place] [place] [employer] [id number] 09/10/2023 [id number] TW / / [id number] documented as of this encounter Advance [...] and were consensually agreed upon. Care Teams Prop And Effects Designer Relationship Specialty Start Date End Date Benny Waite DO [address] [facility] [place] [address] PCP - General Internal Medicine 11/25/23 documented as of this encounter
--- OUTSIDE RECORDS SUMMARY | 2024-03-26 09:51 | External Medical Summary | Summary of Care ---
Author Name Unknown Organization [facility] [address] [facility] [facility] [address] [address] Phone [phone] Care Team Providers Care Live Hanger Name Role Phone Benny Waite DO Primary Care Provider [phone] Reason for Visit * Reason Onset Date Comments [facility]: Maintenance 03/06/2024 Encounter Details Date Type Department Care Team (Late st Contact Info) Description 03/06/2024 Telephone [facility], [facility] [address] [place] [address] Myrtle Allen, RN [address] [place] [address] [facility]: Maintenance Allergies Active Allergy [...] 137 MCG/SPRAY Nasal SolutionIndication s:Allergies Administer 1 [place] into each nostril 2 times a day [...] night without results. 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) 11/29/2023,04/16/2023 Covid-19, Mrna, Lnp-s, Pf, B ivalent, 30 Mcg, IM, 12 yrs and above ([employer]) 03/17/2022 Pneumococcal Conjugate Vacc, 13 Valent (Prevnar) [...] No 07/30/2023 Does the household have a [facility] source of income? (Household - for ages [...] Telephone Encounter - Myrtle Allen RN - 03/06/2024 1:30 PM EDT Patient is interested in having further f/u for his sleep apnea. He recently had an appt at [facility] but he does not want to go back there. Could you please assist in getting him an appt with Sleep Medicine with [facility]? He says he needs another sleep study done and would rather have that done through [facility] or [facility]. Please help. Thank you! documented in this encounter Plan of Treatment Upcoming Encounters Date Type Department Care Team (Late st Contact Info) Description 03/09/2024 12:30 PM EDT Imaging Radiology [facility] [address] [place] [address] 03/23/2024 10:00 AM EDT Home Visit [facility] [address] [address] Myrtle Allen RN [address] [place] [address] 04/04/2024 8:00 AM EDT Office Visit Family Practice [address] [place] [address] 293 [place] [address] Benny Waite, DO 293 [facility] [place] [address] 04/25/2024 1:40 PM EST Telemedicine [facility], [facility] [place] [address] Yadira Omalley CRNP [address] [place] [address] Ines Castro, Community Health Precision Crop Manager [address] [place] [address] 05/24/2024 9:15 AM EST Hospital Encounter OR [facility], Operating Room [facility] [address] [place] [phone] Amador Christian, [address] [place] [address] 05/24/2024 9:15 AM EST - 05/24/2024 9:40 AM EST Surgery OR [facility], Operating Room [facility] [address] [place] [address] Amador Christian, [address] [place] [address] INJECTION SPINE LUMBAR OR SACRAL 07/12/2024 8:00 AM EST Office Visit Cardiology, [facility] [address] [place] [address] Júnior Coppola PA-C [address] [place] [address] 08/14/2024 10:00 AM EST Office Visit Cardiology, [facility] [address] [place] [address] Casimiro Barraza MD [address] [place] [address] Scheduled Procedures Name Priority Associated Diagnoses Date/Ti [...] this encounter Medical Devices Implanted Type Area Armament Mechanic Device Identifier Shelf Expiration Date Model / Serial / Lot Device Watchman Flx 35mm - [id number] Implanted:Qty: 1 on 02/05/2022 by Diamond Teran IV, [place] [facility] [place] [employer] : INTRV CARD [id number] 10/20/2024 [id number] / / [id number] Cath Thermodilution 6fr - [id number] Implanted:Qty: 1 on 07/31/2022 by Franco Mcgregor MD at [facility] [employer] [id number] 04/30/2024 [id number] / / [id number] Mirtaclip G4 - [id number] Implanted:Qty: 1 on 11/16/2022 at [facility] [place] [employer] 06/25/2023 [id number] / / [id number] Clip Delivery Sytem G4 Xtw - [id number] Implanted:Qty: 1 on 11/16/2022 at [facility] [employer] [id number] 08/10/2023 [id number] TW / / [id number] Clip Delivery Sytem G4 Xtw - [id number] Implanted:Qty: 1 on 11/16/2022 at [facility] [employer] [id number] 09/10/2023 [id number] / / [id number] documented as of this encounter Advance [...] and were consensually agreed upon. Care Teams Live Hanger Relationship Specialty Start Date End Date Benny Waite DO [address] [place] [address] PCP - General Internal Medicine 11/25/23 documented as of this encounter
--- OUTSIDE RECORDS SUMMARY | 2024-03-26 09:51 | External Medical Summary | Summary of Care ---
Author Name Unknown Organization [facility] Address [address] [facility] [place] [address] Phone [phone] Care Team Providers Care Sap Integration Architect Name Role Phone Benny Waite DO Primary Care Provider [phone] Reason for Visit * Reason Onset Date Comments [facility]: Maintenance 03/07/2024 Encounter Details Date Type Department Care Team (Late st Contact Info) Description 03/07/2024 9:15 AM EDT Scheduled Telephone [facility], [facility] [address] [place] [address] Coordinator, [facility] [address] [facility] [place] [address] Allergies Active Allergy Reactions Criticality Noted Date [...] 137 MCG/SPRAY Nasal SolutionIndication s:Allergies Administer 1 [place] into each nostril 2 times a day [...] night without results. 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 (Household - for [...] Encounter - Ines Coates RN - 03/07/2024 11:46 AM EDT Recheck of pulse ox 91% with oxygen on. * Telephone Encounter - Ines Coates RN - 03/07/2024 9:06 AM EDT Images from the original note were not included. [facility] Telephonic Nurse Follow-Up Call [place] [...] 32.19 kg/m2 32.19 kg/m2 Remote Patient Monitoring: [facility] [place]: see below [facility] Blood Pressure Cuff: see below [facility] Pulse Ox: see below Oxygen Needs: INCREASED [...] Follow up call scheduled for tomorrow with DIGITAL SALES DIRECTOR Managed Care Liaison Future Visits Scheduled: Future Appointments-next 60 days Date/Time Provider Specialty Dept Phone 03/06/2024 9:30 AM CoordinatorFanny [facility] [phone] 03/09/2024 12:30 PM (Arrive by 12:15 PM) [address] Radiology [phone] 03/23/2024 10:00 AM Myrtle Allen RN [facility] [phone] 04/04/2024 8:00 AM (Arrive by 7:45 AM) Benny Waite, Family Medicine [phone] 04/25/2024 1:40 PM Ines Castro, Community Health Fishing Vessel Deckhand; Yadira Omalley CRNP [facility] [phone] 07/12/2024 8:00 AM (Arrive by 7:45 AM) Júnior Coppola PA-C Cardiology [phone] 08/14/2024 10:00 AM (Arrive by 9:45 AM) Casimiro Barraza MD Cardiology [phone] Ines Coates, RN documented in this encounter Plan of Treatment Upcoming Encounters Date Type Department Care Team (Late st Contact Info) Description 03/08/2024 10:15 AM EDT Scheduled Telephone [facility], [facility] [address] [facility] [place] [address] Coordinator, [facility] [address] [facility] [place] [address] 03/09/2024 12:30 PM EDT Imaging Radiology [facility] [address] [facility] [place] [address] 03/23/2024 10:00 AM EDT Home Visit [facility], [facility] [address] [facility] [place] [address] Myrtle Allen, MICHELLE [address] [facility] [place] [address] 04/04/2024 8:00 AM EDT Office Visit Family Practice [address] [place] [address] 293 [place] [address] Benny Waite, 293 [facility] [place] [address] 04/25/2024 1:40 PM EST Telemedicine [facility], [facility] [address] [facility] [place] [address] Yadira Omalley CRNP 132 [facility] [place] [address] Ines Castro, Community Health Fishing Vessel Deckhand [address] [place] [address] 05/24/2024 9:15 AM EST Hospital Encounter [facility], Operating Room [facility] [address] [place] [address] Amador Christian, DO [address] [place] [address] 05/24/2024 9:15 AM EST - 05/24/2024 9:40 AM EST Surgery OR [facility], Operating Room [facility] [address] [place] [address] Amador Christian, DO [address] [place] [address] INJECTION SPINE LUMBAR OR SACRAL 07/12/2024 8:00 AM EST Office Visit Cardiology, [facility] [address] [place] [address] Júnior Coppola PA-C [address] [place] [address] 08/14/2024 10:00 AM EST Office Visit Cardiology, [facility] [address] [place] [address] Casimiro Barraza MD [address] [place] [address] Scheduled Procedures Name Priority Associated Diagnoses Date/Ti [...] this encounter Medical Devices Implanted Type Area Study Coordinator Device Identifier Shelf Expiration Date Model / Serial / Lot Device Watchman Flx 35mm - [id number] Implanted:Qty: 1 on 02/05/2022 by Diamond Teran IV, [place] [facility] [employer] : INTRV CARD [id number] 10/20/2024 [id number] 50 / / [id number] Cath Thermodilution 6fr - [id number] Implanted:Qty: 1 on 07/31/2022 by Franco Mcgregor MD at [facility] [employer] [id number] 04/30/2024 [id number] / / [id number] Mirtaclip G4 - [id number] Implanted:Qty: 1 on 11/16/[address] [employer] 06/25/2023 [id number] / / [id number] Clip Delivery Sytem G4 Xtw - [id number] Implanted:Qty: 1 on 11/16/[address] [facility] [employer] [id number] 08/10/2023 [id number] / / [id number] Clip Delivery Sytem G4 Xtw - [id number] Implanted:Qty: 1 on 11/16/[address] [facility] BERD [id number] 09/10/2023 [id number] / / [id number] documented as of this encounter Advance [...] and were consensually agreed upon. Care Teams Sap Integration Architect Relationship Specialty Start Date End Date Benny Waite DO [address] [place] [address] PCP - General Internal Medicine 11/25/23 documented as of this encounter
--- OUTSIDE RECORDS SUMMARY | 2024-03-26 09:51 | External Medical Summary | Summary of Care ---
Author Name Unknown Organization [facility] Address [address] [place] [address] Phone [phone] Care Team Providers Care Castables Worker Name Role Phone Benny Waite DO Primary Care Provider [phone] Reason for Visit * Reason Onset Date Comments Test Results 03/09/2024 Unexpected or In determinate Result Encounter Details Date Type Department Care Team (Late st Contact Info) Description 03/09/2024 Telephone Laboratory, [place] [address] [place] [address] Yadira Omalley CRNP [address] [place] [address] Test Results (Unexpected or Indeterminate ... Allergies [...] 137 MCG/SPRAY Nasal SolutionIndication s:Allergies Administer 1 [place] into each nostril 2 times a day [...] night without results. 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 02/05/2022 Permanent atrial fibrillation 12/22/2021 Overview: Added automatically from request for surgery [id number] Last Assessment & Plan: S/p Watchman Current [...] the Comments) Remote Patient Monitoring Vendor: [facility] [place] Device(s): Connected Scale [...] mRNA, LNP-s, No Pre serve, 2-Dose Series ([employer]) 05/14/2021 COVID-19, LNP-s, No Preserve , Robbie-sucrose, Ages 12+ (Pfizer) 11/04/2021 COVID-19, MRNA-LNP, 23-24, P F, 30 MCG/0.3 mL, 12 YRS AND ABOVE, IM ([facility]) 11/29/2023,04/16/2023 Covid-19, Mrna, Lnp-s, Pf, [...] Telephone Encounter - Ashlee Flannery OSA - 03/09/2024 2:18 PM EDT Hello- The radiologist discovered an unexpected or indeterminate finding on Nikolas Silvestre ([id number]) and asks that you review the following report. Study Type: US EXTREMITY, NON-VASCULAR LIMITED Date of Study: 03/09/2024 IMPRESSION Indeterminate, solid-appearing mass in the left anterior arm. This is of uncertain etiology, and MRI of the left humerus (with and without IV contrast) is recommended for further characterization. Please respond to this encounter to acknowledge receipt of this message and take responsibility to ensure this report is reviewed. Thank you, DEX Weiner Client Service Rep [facility] Medicine [place] documented in this encounter Plan of Treatment Upcoming Encounters Date Type Department Care Team (Late st Contact Info) Description 03/23/2024 10:00 AM EDT [facility] Visit [facility], [facility] [address] [place] [address] Myrtle Allen, RN 132 [place] [address] 04/04/2024 8:00 AM EDT Office Visit Family Practice [address] [facility] 293 [place] [address] Benny Waite, DO 293 [facility] [place] [address] 04/25/2024 1:40 PM EST Telemedicine [facility], [facility] [address] [place] [address] Yadira Omalley CRNP [address] [facility] [place] [address] Ines Castro, Community Health Optical Dispenser [address] [place] [address] 05/24/2024 9:15 AM EST Hospital Encounter OR [facility], Operating Room [facility] [address] [facility] [place] [address] Amador Christian, DO [address] [place] [address] 05/24/2024 9:15 AM EST - 05/24/2024 9:40 AM EST Surgery OR [facility], Operating Room [facility] [address] [place] [address] Amador Christian, [address] [place] [address] INJECTION SPINE LUMBAR OR SACRAL 07/12/2024 8:00 AM EST Office Visit Cardiology, [facility] [address] [place] [address] Júnior Coppola PAClifC [address] [place] [address] 08/14/2024 10:00 AM EST Office Visit Cardiology, [facility] [address] [place] [address] Casimiro Barraza MD [address] [place] [address] Scheduled Procedures Name Priority Associated Diagnoses Date/Ti [...] this encounter Medical Devices Implanted Type Area Personnel Scheduler Device Identifier Shelf Expiration Date Model / Serial / Lot Device Watchman Flx 35mm - [id number] Implanted:Qty: 1 on 02/05/2022 by Diamond Teran IV, MD at [facility] [employer] : INTRV CARD [id number] 10/20/2024 [id number] 50 / / [id number] Cath Thermodilution 6fr - [id number] Implanted:Qty: 1 on 07/31/2022 by Franoc Mcgregor MD at [facility] [employer] [id number] 04/30/2024 [id number] / / [id number] Mirtaclip G4 - [id number] Implanted:Qty: 1 on 11/16/2022 at [facility] [employer] 06/25/2023 [id number] / / [id number] Clip Delivery Sytem G4 Xtw - [id number] Implanted:Qty: 1 on 11/16/2022 at [facility] [employer] [id number] 08/10/2023 [id number] TW / / [id number] Clip Delivery Sytem G4 Xtw - [id number] Implanted:Qty: 1 on 11/16/2022 at [facility] [employer] [id number] 09/10/2023 [id number] TW / / [id number] documented as of this encounter Advance [...] and were consensually agreed upon. Care Teams Castables Worker Relationship Specialty Start Date End Date Benny Waite DO [address] [place] [address] PCP - General Internal Medicine 11/25/23 documented as of this encounter
--- OUTSIDE RECORDS SUMMARY | 2024-03-26 09:51 | External Medical Summary | Summary of Care ---
Author Name Unknown Organization [facility] [address] [facility] [address] Phone [phone] Care Team Providers Care Web Design Intern Name Role Phone Benny Waite DO Primary Care Provider [phone] Reason for Visit * Reason Onset Date Comments [facility]: Maintenance 03/09/2024 Encounter Details Date Type Department Care Team (Late st Contact Info) Description 03/09/2024 Telephone [facility], [facility] [address] [place] [id number] Annmarie Shaikh, PROBATION MANAGER [address] [place] [address] [facility]: Maintenance Allergies [...] 137 MCG/SPRAY Nasal SolutionIndication s:Allergies Administer 1 [place] into each nostril 2 times a day [...] results. He will go to [facility] for abdominal x-ray today to [...] Overview: Added automatically from request for surgery [id number] Last Assessment & Plan: S/p Watchman Current [...] the Comments) Remote Patient Monitoring Vendor: [facility] [place] Device(s): Connected [...] mRNA, LNP-s, No Pre serve, 2-Dose Series ([employer]) 05/14/2021 COVID-19, LNP-s, No Preserve , Robbie-sucrose, Ages 12+ ([employer]) 11/04/2021 COVID-19, MRNA-LNP, 23-24, P F, 30 MCG/0.3 mL, 12 YRS AND ABOVE, IM ([facility]) 11/29/2023,04/16/2023 Covid-19, Mrna, Lnp-s, Pf, B ivalent, 30 Mcg, IM, 12 yrs and above ([employer]) 03/17/2022 Pneumococcal Conjugate Vacc, 13 Valent (Prevnar) [...] Does the household have a [facility] [facility] source of income? (Household - for [...] Telephone Encounter - Haritha Peña LPN - 03/09/2024 3:02 PM EDT Received CB from pt, below reading were without his baseline 2 l of oxygen. He reports his breathing is at baseline. Primary concern today is his chronic ongoing back pain. He has been wearing a lower back support that velcros around him ( heavily listing back support style) And it is helping but he would like something that covered more area. I inquired if he thought an abdominal binder would work and that it would likely cover more area and he was agreeable to try it if CT agrees that it may help. * Telephone Encounter - Annmarie Shaikh LPN [...] Plan: Call to pt no answer left VM requesting a return call to [facility] at [phone] opt#3 documented in this encounter Plan of Treatment Upcoming Encounters Date Type Department Care Team (Late st Contact Info) Description 03/23/2024 10:00 AM EDT [facility] Visit [facility], [facility] [place] [address] Myrtle Allen, RN [address] [place] [address] 04/04/2024 8:00 AM EDT Office Visit Family Practice [address] [place] [address] 293 [place] [address] Benny Waite DO 293 [place] [address] 04/25/2024 1:40 PM EST Telemedicine [facility], [facility] [place] [address] Yadira Omalley CRNP [address] [place] [address] Ines Castro, Community Health Police Detective [address] [place] [address] 05/24/2024 9:15 AM EST Hospital Encounter OR [facility], Operating [facility] [place] [phone] Amador Christian DO [address] [place] [address] 05/24/2024 9:15 AM EST - 05/24/2024 9:40 AM EST Surgery OR [facility], Operating Room [facility] [address] [place] [address] Amador Christian DO [address] [place] [address] INJECTION SPINE LUMBAR OR SACRAL 07/12/2024 8:00 AM EST Office Visit Cardiology, [facility] [address] [place] [address] Júnior Coppola PA-C [address] [place] [address] 08/14/2024 10:00 AM EST Office Visit Cardiology, [facility] [address] [place] [address] Casimiro Barraza MD [address] [place] [address] Scheduled Procedures Name Priority Associated Diagnoses Date/Ti [...] Zoster Vaccines Completed 12/13/2019, 02/0 08/2019, 04/18/2015 HPV (Gardasil) Vaccine Aged Out No lo nger eligible based on patient's age to complete this topic Hepatitis B Vaccine Aged Out No longe r eligible based on patient's age to complete this topic MENINGOCOCCAL (MENACTRA/MENVEO) Aged Out No longer eligible based on patient's age to complete this topic documented as of this encounter Medical Devices Implanted Type Area Lead Person Device Identifier Shelf Expiration Date Model / Serial / Lot Device Watchman Flx 35mm - [id number] Implanted:Qty: 1 on 02/05/2022 by Diamond Teran IV, MD [place] [facility] [place] [employer] : INTRV CARD [id number] 10/20/2024 [id number] 50 / / [id number] Cath Thermodilution 6fr - [id number] Implanted:Qty: 1 on 07/31/2022 by Franco Mcgregor MD at [facility] [place] [employer] [id number] 04/30/2024 [id number] / / [id number] Mirtaclip G4 - [id number] Implanted:Qty: 1 on 11/16/2022 at [facility] [employer] 06/25/2023 [id number] / / [id number] Clip Delivery Sytem G4 Xtw - [id number] Implanted:Qty: 1 on 11/16/2022 at [facility] [place] [employer] [id number] 08/10/2023 [id number] TW / / [id number] Clip Delivery Sytem G4 Xtw - [id number] Implanted:Qty: 1 on 11/16/2022 at [facility] [place] [employer] [id number] 09/10/2023 [id number] TW / / [id number] documented as of this encounter Advance [...] and were consensually agreed upon. Care Teams Web Design Intern Relationship Specialty Start Date End Date Benny Waite DO [address] [place] [address] PCP - General Internal Medicine 11/25/23 documented as of this encounter
--- OUTSIDE RECORDS SUMMARY | 2024-03-26 09:51 | External Medical Summary | Summary of Care ---
Author Name Unknown Organization [facility] Address [address] [place] [address] Phone [phone] Care Team Providers Care Divemaster Name Role Phone Benny Waite DO Primary Care Provider [phone] Reason for Visit * Reason Onset Date Comments Test Results 03/09/2024 Unexpected or In determinate Result Encounter Details Date Type Department Care Team (Late st Contact Info) Description 03/09/2024 Telephone Laboratory, [place] [address] [place] [address] Yadira Omalley CRNP [address] [place] [address] Test Results (Unexpected or Indeterminate ... Allergies [...] 137 MCG/SPRAY Nasal SolutionIndication s:Allergies Administer 1 [place] into each nostril 2 times a day [...] results. [facility] will go to [facility] for abdominal x-ray today to [...] Overview: Added automatically from request for surgery [id number] Last Assessment & Plan: S/p Watchman Current [...] mRNA, LNP-s, No Pre serve, 2-Dose Series ([employer]) 05/14/2021 COVID-19, LNP-s, No Preserve , Robbie-sucrose, Ages 12+ (Pfizer) 11/04/2021 COVID-19, MRNA-LNP, 23-24, P F, 30 MCG/0.3 mL, 12 YRS AND ABOVE, IM ([facility]) 11/29/2023,04/16/2023 Covid-19, Mrna, Lnp-s, Pf, [...] unexpected or indeterminate finding on Nikolas Silvestre ([id number]) and asks that you review the following [...] Thank you, DEX Weiner Client Service Rep [facility] Medicine [place] documented in this encounter Plan of Treatment Upcoming Encounters Date Type Department Care Team (Late st Contact Info) Description 03/23/2024 10:00 AM EDT Home Visit [facility], [facility] [address] [address] Myrtle Allen, RN [address] [place] [address] 04/04/2024 8:00 AM EDT Office Visit Family Practice [address] [facility] [place] 293 [place] [address] Benny Waite, DO 293 [facility] [place] [address] 04/25/2024 1:40 PM EST Telemedicine [facility], [facility] [address] [place] [address] Yadira Omalley CRNP [address] [facility] [place] [address] Ines Castro, Community Health Keg Raiser [address] [place] [address] 05/24/2024 9:15 AM EST Hospital Encounter OR [facility], Operating Room [facility] 132 [facility] [place] [address] Amador Christian, DO [address] [place] [address] 05/24/2024 9:15 AM EST - 05/24/2024 9:40 AM EST Surgery OR [facility], Operating Room [facility] [address] [place] [address] Amador Christian, [address] [place] [address] INJECTION SPINE LUMBAR OR SACRAL 07/12/2024 8:00 AM EST Office Visit Cardiology, [facility] [address] [place] [address] Júnior Coppola PAClifC [address] [place] [address] 08/14/2024 10:00 AM EST Office Visit Cardiology, [facility] [address] [place] [address] Casimiro Barraza MD [address] [place] [address] Scheduled Procedures Name Priority Associated Diagnoses Date/Ti [...] this encounter Medical Devices Implanted Type Area Subscription Crew Leader Device Identifier Shelf Expiration Date Model / Serial / Lot Device Watchman Flx 35mm - [id number] Implanted:Qty: 1 on 02/05/2022 by Diamond Teran IV, MD at [facility] [place] [employer] : INTRV CARD [id number] 10/20/2024 [id number] 50 / / [id number] Cath Thermodilution 6fr - [id number] Implanted:Qty: 1 on 07/31/2022 by Franco Mcgregor MD at [facility] [place] [employer] [id number] 04/30/2024 [id number] / / [id number] Mirtaclip G4 - [id number] Implanted:Qty: 1 on 11/16/2022 at [facility] [place] [employer] 06/25/2023 [id number] / / [id number] Clip Delivery Sytem G4 Xtw - [id number] Implanted:Qty: 1 on 11/16/2022 at [facility] [place] [employer] [id number] 08/10/2023 [id number] TW / / [id number] Clip Delivery Sytem G4 Xtw - [id number] Implanted:Qty: 1 on 11/16/2022 at [facility] [place] [employer] [id number] 09/10/2023 [id number] TW / / [id number] documented as of this encounter Advance [...] and were consensually agreed upon. Care Teams Divemaster Relationship Specialty Start Date End Date Bneny Waite DO [address] [place] [address] PCP - General Internal Medicine 11/25/23 documented as of this encounter
--- OUTSIDE RECORDS SUMMARY | 2024-03-26 09:51 | External Medical Summary | Summary of Care ---
Author Name Unknown Organization [facility] Address [address] [facility] [place] [address] Phone [phone] Care Team Providers Care Order Runner Name Role Phone Benny Waite DO Primary Care Provider [phone] Reason for Visit * Reason Onset Date Comments [facility]: Acute 03/03/2024 Encounter Details Date Type Department Care Team (Late st Contact Info) Description 03/03/2024 Telephone [facility], [facility] [address] [facility] [place] [address] Micheline Medrano RN [address] [facility] [place] [phone] [facility]: Acute Allergies Active Allergy [...] 137 MCG/SPRAY Nasal SolutionIndication s:Allergies Administer 1 [place] into each nostril 2 times a day [...] results. 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 02/05/2022 Permanent atrial fibrillation 12/22/2021 Overview: Added automatically from request for surgery [id number] Last Assessment & Plan: S/p Watchman Current [facility] Device(s): Connected Scale Self - [...] mRNA, LNP-s, No Pre serve, 2-Dose Series ([facility]) 08/20/2020,07/17/2020 COVID-19 mRNA, LNP-s, No Pre serve, 2-Dose Series (Pfizer) 05/14/2021 COVID-19, LNP-s, No Preserve , Robbie-sucrose, Ages 12+ (Pfizer) 11/04/2021 COVID-19, MRNA-LNP, 23-24, P F, 30 MCG/0.3 mL, 12 YRS AND ABOVE, IM ([facility]) 11/29/2023,04/16/2023 Covid-19, Mrna, Lnp-s, Pf, [...] 03/03/2024 1:47 PM EDT [facility] operations tech Acute Call Date: 03/03/2024 Time: 1:47 PM Name: Nikolas Silvestre : 1940 Caller: Nikolas Relationship to self No chief complaint on file. HPI: Nikolas Silvestre is a 83 year old male that is calling [facility] Intake to report that 6/10 [...] exacerbation symptoms: No Reinforcement Education: Routed to [facility] for recommendations Treatment/Plan: Level of call: Acute [...] AM EDT Scheduled Telephone [facility], [facility] [address] [place] [address] Coordinator, [facility] [address] [place] [address] 03/08/2024 10:15 AM EDT Scheduled Telephone [facility], [facility] [address] [place] [address] Coordinator, [facility] [address] [place] [address] 03/09/2024 12:30 PM EDT Imaging Radiology [facility] [address] [place] [address] 03/23/2024 10:00 AM EDT Home Visit [facility], [facility] [address] [place] [address] Myrtle Allen, RN 132 [facility] [place] [address] 04/04/2024 8:00 AM EDT Office Visit Family [facility] [address] [facility] [address] Benny Waite, DO 293 [place] [address] 04/25/2024 1:40 PM EST Telemedicine [facility], [facility] [address] [place] [address] Yadira Omalley CRNP [address] [place] [address] Ines Castro, Community Health Planning Aide [address] [place] [address] 05/24/2024 9:15 AM EST Hospital Encounter OR [facility], Operating Room [facility] [address] [place] [phone] Amador Christian, [address] [place] [phone] 05/24/2024 9:15 AM EST - 05/24/2024 9:40 AM EST Surgery OR [facility], Operating Room [facility] [address] [place] [phone] Amador Christian, [address] [place] [address] INJECTION SPINE LUMBAR OR SACRAL 07/12/2024 8:00 AM EST Office Visit Cardiology, [facility] [address] [place] [address] Júnior Coppola PA-C [address] [place] [address] 08/14/2024 10:00 AM EST Office Visit Cardiology, [facility] [address] [place] [address] Casimiro Barraza MD [address] [place] [address] Scheduled Procedures Name Priority Associated Diagnoses Date/Ti [...] encounter Medical Devices Implanted Type Area Computer Aided Drafter Device Identifier Shelf Expiration Date Model / Serial / Lot Device Watchman Flx 35mm - [id number] Implanted:Qty: 1 on 02/05/2022 by Diamond Teran IV, MD at [facility] [employer] : INTRV CARD [id number] 10/20/2024 [id number] 50 / / [id number] Cath Thermodilution 6fr - [id number] Implanted:Qty: 1 on 07/31/2022 by Franco Mcgregor MD at [facility] [employer] [id number] 04/30/2024 [id number] / / [id number] Mirtaclip G4 - [id number] Implanted:Qty: 1 on 11/16/2022 at [facility] [employer] 06/25/2023 [id number] / / [id number] Clip Delivery Sytem G4 Xtw - [id number] Implanted:Qty: 1 on 11/16/2022 at [facility] [employer] [id number] 08/10/2023 [id number] / / [id number] Clip Delivery Sytem G4 Xtw - [id number] Implanted:Qty: 1 on 11/16/2022 at [facility] [employer] [id number] 09/10/2023 [id number] / / [id number] documented as of this encounter Advance [...] and were consensually agreed upon. Care Teams Order Runner Relationship Specialty Start Date End Date Benny Waite DO [address] [place] [address] PCP - General Internal Medicine 11/25/23 documented as of this encounter
--- OUTSIDE RECORDS SUMMARY | 2024-03-26 09:51 | External Medical Summary | Summary of Care ---
Author Name Unknown Organization [facility] Address [address] [facility] [place] [address] Phone [phone] Care Team Providers Care Pumper Brewery Name Role Phone Benny Waite DO Primary Care Provider [phone] Reason for Visit * Reason Onset Date Comments [facility]: Maintenance 03/10/2024 Encounter Details Date Type Department Care Team (Late st Contact Info) Description 03/10/2024 Telephone [facility], [facility] [address] [facility] [place] [address] Irlanda Real, FIXTURE RELAMPER [address] [facility] [place] [address] [facility]: Maintenance Allergies Active Allergy [...] 137 MCG/SPRAY Nasal SolutionIndication s:Allergies Administer 1 [place] into each nostril 2 times a day [...] night without results. 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 source of income? (Household - [...] * Telephone Encounter - Irlanda RealAMBER - 03/10/2024 9:04 AM EDT Images from [...] BP in approx 1 hr and call [facility] with any concerns. Overall risk and identified plan: High risk: Route to RNCM (Registered Nurse Dancing Master) and Advance Practitioner documented in this encounter Plan of Treatment Upcoming Encounters Date Type Department Care Team (Late st Contact Info) Description 03/23/2024 10:00 AM EDT [facility] Visit [facility] [address] [facility] [place] [address] Myrtle Allen RN 132 [place] [address] 04/04/2024 8:00 AM EDT Office Visit Family Practice [address] [facility] [place] 293 [facility] [place] [address] Benny Waite DO 293 [place] [address] 04/25/2024 1:40 PM EST Telemedicine [facility] 132 [facility] [place] [address] Yadira Omalley CRNP 132 [place] [address] Ines Castro, Community Health Solar Energy Advisor [address] [place] [facility] [place] [address] 05/24/2024 9:15 AM EST Hospital Encounter OR [facility], Operating Room [facility] [address] [place] [phone] Amador Christian, DO [address] [place] [address] 05/24/2024 9:15 AM EST - 05/24/2024 9:40 AM EST Surgery OR [facility], Operating Room [facility] [address] [place] [address] Amador Christian, DO [address] [place] [phone] INJECTION SPINE LUMBAR OR SACRAL 07/12/2024 8:00 AM EST Office Visit Cardiology, [facility] [address] [place] [address] Júnior Coppola PA-C [address] [place] [address] 08/14/2024 10:00 AM EST Office Visit Cardiology, [facility] [address] [place] [address] Casimiro Barraza MD [address] [place] [address] Scheduled Procedures Name Priority Associated Diagnoses Date/Ti [...] this encounter Medical Devices Implanted Type Area Refuse Laborer Device Identifier Shelf Expiration Date Model / Serial / Lot Device Watchman Flx 35mm - [id number] Implanted:Qty: 1 on 02/05/2022 by Diamond Teran IV, MD at [facility] [employer] : INTRV CARD [id number] 10/20/2024 [id number] 50 / / [id number] Cath Thermodilution 6fr - [id number] Implanted:Qty: 1 on 07/31/2022 by Franco Mcgregor MD at [facility] [employer] [id number] 04/30/2024 [id number] / / [id number] Mirtaclip G4 - [id number] Implanted:Qty: 1 on 11/16/2022 at [facility] [employer] 06/25/2023 [id number] / / [id number] Clip Delivery Sytem G4 Xtw - [id number] Implanted:Qty: 1 on 11/16/2022 at [facility] [employer] [id number] 08/10/2023 [id number] / / [id number] Clip Delivery Sytem G4 Xtw - [id number] Implanted:Qty: 1 on 11/16/2022 at [facility] [employer] [id number] 09/10/2023 [id number] TW / / [id number] documented as of this encounter Advance [...] Date End Date Benny Waite DO [address] [place] [address] PCP - General Internal Medicine 11/25/23 documented as of this encounter
--- OUTSIDE RECORDS SUMMARY | 2024-03-26 09:51 | External Medical Summary | Summary of Care ---
Author Name Unknown Organization [facility] Address [address] [place] [address] Phone [phone] Care Team Providers Care Grade School Teacher Name Role Phone Benny Waite DO Primary Care Provider [phone] Reason for Referral * Precert (Within 10 days (routine)) - Pending Review Specialty Diagnoses / Procedures Referred By Elaina hernandez Referred To Contact Radiology Diagnoses Mass of arm, left Procedures MR HUMERUS NO JOINT LEFT WITH WITHOUT IV CONTRAST Yadira Omalley CRNP [address] [place] [address] Referral ID Status Reason Start Date Expiration Date V isits Requested Visits Authorized [id number] Pending Review 03/16/2024 999 999 Reason for Visit * Reason Onset Date Comments Test Results 03/09/2024 Unexpected or In determinate Result Encounter Details Date Type Department Care Team (Late st Contact Info) Description 03/09/2024 [address] Laboratory, [address] [place] [address] Yadira Omalley CRNP [address] [facility] [place] [address] Test Results (Unexpected or Indeterminate ... 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 02/05/2022 Permanent atrial fibrillation 12/22/2021 Overview: Added automatically from request for surgery [id number] Last Assessment & Plan: S/p Watchman Current [...] with serious comorbidity 04/24/2022 Aortic root enlargement 10/01/202001/123 Enlarged aorta 05/02/2019 08/19/2020 Senile purpura 05/02/2019 [...] MCG/0.3 mL, 12 YRS AND ABOVE, IM ([facility] 11/29/2023,04/16/2023 Covid-19, Mrna, Lnp-s, Pf, B ivalent, 30 Mcg, IM, 12 yrs and above ([employer]) 03/17/2022 Pneumococcal Conjugate Vacc, 13 Valent (Prevnar) [...] Addendum Note - Yadira Omalley CRNP - 03/09/2024 4:52 PM EDTAddended by: YADIRA OMALLEY on: 03/09/2024 04:52 PM Modules accepted: Orders * Telephone Encounter - Yadira Omalley CRNP - 03/09/2024 4:50 PM EDT I called pt made aware of results. He is willing to have MRI. He thinks he may have history of metal in one of his eyes? Had MRI in the past. Scheduling--I placed order for orbital xray and extremity MRI---please schedule. FYI Myrtle * Telephone Encounter - Ashlee Flannery OSA - 03/09/2024 2:18 PM EDT Hello- The radiologist discovered an unexpected or indeterminate finding on Nikolas Silvestre ([id number]) and asks that you review the following [...] reviewed. Thank you, DEX Weiner Client Service [facility] [place] documented in this encounter Plan of Treatment Upcoming Encounters Date Type Department Care Team (Late st Contact Info) Description 03/23/2024 10:00 AM EDT [facility] [place], [facility] 132 [facility] [place] [address] Myrtle Allen, RN 132 [facility] [place] [address] 04/04/2024 8:00 AM EDT Office Visit Family Practice 65 [facility] 293 [place] [address] Benny Waite, 293 [place] [address] 04/25/2024 1:40 PM EST Telemedicine [facility] [place], [facility] [place] [address] Yadira [facility]ley CRNP [facility] [place] [address] Ines Castro, Community Health Deck Cadet [address] [place] [address] 05/24/2024 9:15 AM EST Hospital Encounter OR [facility], Operating Room [facility] [address] [place] [address] Amador Christian, DO [address] [place] [address] 05/24/2024 9:15 AM EST - 05/24/2024 9:40 AM EST Surgery OR [facility], Operating Room [facility] [address] [place] [address] Amador Christian, DO [address] [place] [address] INJECTION SPINE LUMBAR OR SACRAL 07/12/2024 8:00 AM EST Office Visit Cardiology, [facility] [address] [place] [address] Júnior Coppola PA-C [address] [place] [address] 08/14/2024 10:00 AM EST Office Visit Cardiology, [facility] [address] [place] [address] Casimiro Barraza MD [address] [place] [address] Scheduled Orders Name Type Priority Associated Diagnoses Orde r Schedule MR HUMERUS NO JOINT LEFT WITH WITHOUT IV CONTRAST Medical Imaging Routine Mass of arm, left Expected: 03/16/2024, Expires: 04/08/2025 XR EYE FOREIGN BODY PRE MRI Medical Imaging STAT Mass of arm, left Ordered: 03/09/2024 Scheduled Procedures Name Priority Associated Diagnoses Date/Ti [...] this encounter Medical Devices Implanted Type Area And Taxi Instructor Bus Trolley Device Identifier Shelf Expiration Date Model / Serial / Lot Device Watchman Flx 35mm - [id number] Implanted:Qty: 1 on 02/05/2022 by Diamond Teran IV, MD at [facility] [employer] : INTRV CARD [id number] 10/20/2024 [id number] 50 / / [id number] Cath Thermodilution 6fr - [id number] Implanted:Qty: 1 on 07/31/2022 by Franco Mcgregor MD at [facility] [employer] [id number] 04/30/2024 [id number] / / [id number] Mirtaclip G4 - [id number] Implanted:Qty: 1 on 11/16/[address] [employer] 06/25/2023 [id number] / / [id number] Clip Delivery Sytem G4 Xtw - [id number] Implanted:Qty: 1 on 11/16/[address] [facility] [employer] [id number] 08/10/2023 [id number] TW / / [id number] Clip Delivery Sytem G4 Xtw - [id number] Implanted:Qty: 1 on 11/16/[address] [employer] [id number] 09/10/2023 [id number] / / [id number] documented as of this encounter Visit Diagnoses Diagnosis Mass of arm, left- Primary Spinal stenosis of lumbar region with [...] and were consensually agreed upon. Care Teams Grade School Teacher Relationship Specialty Start Date End Date Benny Waite DO 293 [place] [address] PCP - General Internal Medicine 11/25/23 documented as of this encounter
--- OUTSIDE RECORDS SUMMARY | 2024-03-26 09:52 | External Medical Summary | Summary of Care ---
Author Name Unknown Organization [facility] Address [address] [facility] [place] [address] Phone [phone] Care Team Providers Care Roll Repairer Name Role Phone Benny Waite DO Primary Care Provider [phone] Reason for Visit * Reason Onset Date Comments Acute Problem Follow Up 03/05/2024 Encounter Details Date Type Department Care Team (Late st Contact Info) Description 03/05/2024 9:00 AM EDT Scheduled Telephone [facility], [facility] 132 [facility] [place] [address] [facility], Nurse [facility] 132 [facility] [place] [address] Allergies Active Allergy Reactions Criticality Noted Date Comments Adhesive Tape 02/04/2017 Duloxetine High 07/13/2023 Other Reaction(s): confusion Levofloxacin 09/01/2019 documented as of this encounter (statuses as of 03/05/2024) Medications Medication Sig Dispensed Refills Start Date [...] 137 MCG/SPRAY Nasal SolutionIndication s:Allergies Administer 1 [place] into each nostril 2 times a day [...] for 10 days. 20 Tablet 02/24/2024 4 Active Doxycycline Hyclate 100 MG Oral Capsule Take 1 Capsule by mouth in the morning and 1 Capsule before bedtime. Do all this for 10 days. 20 Capsule 02/24/2024 4 Active documented as of this encounter (statuses as of 03/05/2024) Active Problems Problem Noted Date Diagnosed Date [...] results. 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 02/05/2022 Permanent atrial fibrillation 12/22/2021 Overview: Added automatically from request for surgery [id number] Last Assessment & Plan: S/p Watchman Current [...] the Comments) Remote Patient Monitoring Vendor: [facility] Device(s): Connected Scale Self - Management Plan [...] as of this encounter (statuses as of 03/05/2024) Resolved Problems Problem Noted Date Diagnosed Date [...] as of this encounter (statuses as of 03/05/2024) Immunizations Name Administration Dates Next Due COVID-19 mRNA, LNP-s, No Pre serve, 2-Dose Series (Moderna) 08/20/2020,07/17/2020 COVID-19 mRNA, LNP-s, No Pre serve, 2-Dose Series (Pfizer) 05/14/2021 COVID-19, LNP-s, No Preserve , Robbie-sucrose, Ages 12+ (Pfizer) 11/04/2021 COVID-19, MRNA-LNP, 23-24, P F, 30 MCG/0.3 mL, 12 YRS AND ABOVE, IM ([facility]) 11/29/2023,04/16/2023 Covid-19, Mrna, Lnp-s, Pf, B ivalent, [...] encounter Miscellaneous Notes * Telephone Encounter - Le Horta RN - 03/05/2024 8:53 AM EDT Follow up call to patient for c/o low SpO2 yesterday. Kept O2 at 3lpm. He states he slept well overnight, woke this am with a dry and scratchy throat and stuffy nose. His SpO2 this am upon waking was 85% and up to 92% during this call. Denies SOB, cough, edema. No fever. Denies pain. Using cough drops for his throat. Denies need to see a nurse today. Will call with any worsening of symptoms. [facility] to f/u with phone call on 03/06. documented in this encounter Plan of Treatment Upcoming Encounters Date Type Department Care Team (Late st Contact Info) Description 03/06/2024 9:30 AM EDT Scheduled Telephone [facility], [facility] 132 [facility] [place] [address] Coordinator, [facility] [address] [facility] [place] [address] 03/09/2024 12:30 PM EDT Imaging Radiology [facility] 132 [facility] [place] [address] 03/23/2024 10:00 AM EDT [facility] Visit [facility], [facility] [address] [facility] [place] [address] Myrtle Allen, RN 132 [facility] [place] [address] 04/04/2024 8:00 AM EDT Office Visit Family Practice [address] [place] [address] 293 [place] [address] Benny Waite, 293 [place] [address] 04/25/2024 1:40 PM EST Telemedicine [facility], [facility] 132 [facility] [place] [address] Yadira Omalley CRNP 132 [facility] [place] [address] Ines Castro, Community Health Nurse Technician [address] [place] [address] 07/12/2024 8:00 AM EST Office Visit Cardiology, [facility] 132 [facility] [place] [address] Júnior Coppola PA-C [facility] [place] [address] 08/14/2024 10:00 AM EST Office Visit Cardiology, [facility] 132 [facility] [place] [address] Casimiro Barraza MD [address] [place] [address] Health Maintenance Due Date Last Done Comments [...] this encounter Medical Devices Implanted Type Area Coating Line Worker Device Identifier Shelf Expiration Date Model / Serial / Lot Device Watchman Flx 35mm - [id number] Implanted:Qty: 1 on 02/05/2022 by Diamond Teran IV, MD at [facility] [employer] : INTRV CARD [id number] 10/20/2024 [id number] 50 / / [id number] Cath Thermodilution 6fr - [id number] Implanted:Qty: 1 on 07/31/2022 by Franco Mcgregor MD at [facility] [employer] [id number] 04/30/2024 [id number] / / [id number] Mirtaclip G4 - [id number] Implanted:Qty: 1 on 11/16/2022 at [facility] [employer] 06/25/2023 [id number] / / [id number] Clip Delivery Sytem G4 Xtw - [id number] Implanted:Qty: 1 on 11/16/2022 at [facility] [employer] [id number] 08/10/2023 [id number] TW / / [id number] Clip Delivery Sytem G4 Xtw - [id number] Implanted:Qty: 1 on 11/16/2022 at [facility] [employer] [id number] 09/10/2023 [id number] / / [id number] documented as of this encounter Advance [...] and were consensually agreed upon. Care Teams Roll Repairer Relationship Specialty Start Date End Date Benny Waite DO [address] [place] [address] PCP - General Internal Medicine 11/25/23 documented as of this encounter
--- OUTSIDE RECORDS SUMMARY | 2024-03-26 09:52 | External Medical Summary | Summary of Care ---
Author Name Unknown Organization [facility] Address [address] [place] [address] Phone [phone] Care Team Providers Care Manager Government Name Role Phone Benny Waite DO Primary Care Provider [phone] Reason for Visit * Reason Onset Date Comments Referral 03/06/2024 Encounter Details Date Type Department Care Team (Late st Contact Info) Description 03/06/2024 Telephone [facility], [place] [address] [place] [address] Zoe Thompson OSA [address], [place] [id number] Referral Allergies Active Allergy Reactions Criticality Noted Date [...] 137 MCG/SPRAY Nasal SolutionIndication s:Allergies Administer 1 [place] into each nostril 2 times a day [...] MVR (mitral valve repair) 11/16/2022 Atherosclerosis of [place] co ronary artery without angina pectoris 08/11/2022 Severe tricuspid regurgitation 08/11/2022 Gout, arthropathy 07/20/2022 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 They will review and contact patient for an appointment. documented in this encounter Plan of Treatment Upcoming Encounters Date Type Department Care Team (Late st Contact Info) Description 03/07/2024 9:15 AM EDT Scheduled Telephone [facility] [place], [facility] [address] [address] Coordinator, [facility] [address] [address] 03/08/2024 10:15 AM EDT Scheduled Telephone [facility] [place], [facility] [address] [address] Coordinator, [facility] [address] [address] 03/09/2024 12:30 PM EDT Imaging Radiology [facility] [address] [address] 03/23/2024 10:00 AM EDT Home Visit [facility], [facility] [place] [address] Myrtle Allen, RN [facility] [place] [address] 04/04/2024 8:00 AM EDT Office Visit Family Practice [address] [place] [address] 293 [place] [address] Benny Waite, DO 293 [place] [address] 04/25/2024 1:40 PM EST Telemedicine [facility], [facility] [place] [address] Yadira Omalley CRNP 132 [facility] [address] Ines Castro, Community Health Licensed Pharmacist [address] [place] [address] 05/24/2024 9:15 AM EST Hospital Encounter [facility], Operating Room [facility] [address] [place] [phone] Amador Christian, DO 132 [facility] [place] [phone] 05/24/2024 9:15 AM EST - 05/24/2024 9:40 AM EST Surgery OR [facility], Operating Room [facility] [address] [place] [address] Amador Christian, DO [address] [place] [phone] INJECTION SPINE LUMBAR OR SACRAL 07/12/2024 8:00 AM EST Office Visit Cardiology, [facility] [address] [place] [address] Júnior Coppola PA-C [address] [place] [address] 08/14/2024 10:00 AM EST Office Visit Cardiology, [facility] [address] [place] [address] Casimiro Barraza MD [address] [place] [address] Scheduled Procedures Name Priority Associated Diagnoses Date/Ti [...] this encounter Medical Devices Implanted Type Area Humid System Operator Device Identifier Shelf Expiration Date Model / Serial / Lot Device Watchman Flx 35mm - [id number] Implanted:Qty: 1 on 02/05/2022 by Diamond Teran IV, [place] at [facility] [employer] : INTRV CARD [id number] 10/20/2024 [id number] / / [id number] Cath Thermodilution 6fr - [id number] Implanted:Qty: 1 on 07/31/2022 by Franco Mcgregor MD at [facility] [employer] [id number] 04/30/2024 [id number] / / [id number] Mirtaclip G4 - [id number] Implanted:Qty: 1 on 11/16/2022 at [facility] [employer] 06/25/2023 [id number] / / [id number] Clip Delivery Sytem G4 Xtw - [id number] Implanted:Qty: 1 on 11/16/2022 at [facility] [employer] [id number] 08/10/2023 [id number] TW / / [id number] Clip Delivery Sytem G4 Xtw - [id number] Implanted:Qty: 1 on 11/16/2022 at [facility] [employer] [id number] 09/10/2023 [id number] / / [id number] documented as of this encounter Advance [...] were consensually agreed upon. Care Teams Manager Government Relationship Specialty Start Date End Date Benny Waite DO [address] [place] [place] [address] PCP - General Internal Medicine 11/25/23 documented as of this encounter
--- OUTSIDE RECORDS SUMMARY | 2024-03-26 09:52 | External Medical Summary | Summary of Care ---
Author Name Unknown Organization [facility] Address [address] [facility] [place] [address] Phone [phone] Care Team Providers Care Anesthesiologist Name Role Phone Benny Waite DO Primary Care Provider [phone] Reason for Visit * Reason Onset Date Comments [facility]: Acute 03/03/2024 Encounter Details Date Type Department Care Team (Late st Contact Info) Description 03/03/2024 Telephone [facility], [facility] [address] [facility] [place] [address] Micheline Medrano RN [address] [facility] [place] [phone] [facility]: Acute Allergies Active Allergy Reactions Criticality Noted Date Comments Adhesive Tape 02/04/2017 Duloxetine High 07/13/2023 Other Reaction(s): confusion Levofloxacin 09/01/2019 documented as of this encounter (statuses as of 03/03/2024) Medications Medication Sig Dispensed Refills Start Date [...] 137 MCG/SPRAY Nasal SolutionIndication s:Allergies Administer 1 [place] into each nostril 2 times a day [...] as of this encounter (statuses as of 03/03/2024) Active Problems Problem Noted Date Diagnosed Date [...] (mitral valve repair) 11/16/2022 Atherosclerosis of [place] co 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 pectoris 08/11/2022 Severe tricuspid regurgitation 08/11/2022 Gout, arthropathy 07/20/2022 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 02/05/2022 Permanent atrial fibrillation 12/22/2021 Overview: Added automatically from request for surgery [id number] Last Assessment & Plan: S/p Watchman Current [...] in the Comments) Remote Patient Monitoring Vendor: [facility] Device(s): Connected Scale Self - [...] as of this encounter (statuses as of 03/03/2024) Resolved Problems Problem Noted Date Diagnosed Date [...] as of this encounter (statuses as of 03/03/2024) Immunizations Name Administration Dates Next Due COVID-19 mRNA, LNP-s, No Pre serve, 2-Dose Series (Moderna) 08/20/2020,07/17/2020 COVID-19 mRNA, LNP-s, No Pre serve, 2-Dose Series (Pfizer) 05/14/2021 COVID-19, LNP-s, No Preserve , Robbie-sucrose, Ages 12+ (Pfizer) 11/04/2021 COVID-19, MRNA-LNP, 23-24, P F, 30 MCG/0.3 mL, 12 YRS AND ABOVE, IM ([facility]) 11/29/2023,04/16/2023 Covid-19, Mrna, Lnp-s, Pf, B ivalent, [...] pain. I'll cc both on this message. [facility] does not manage chronic back pain. Until she can reach them, she can maximize tylenol 1 g qid, use heating pad, topical analgesics like biofreeze. Make sure she is taking africa 800 mg tid as rx'd. * Telephone Encounter - Micheline Medrano RN - 03/03/2024 1:47 PM EDT [facility] professor of communication and writing Acute Call Date: 03/03/2024 Time: 1:47 PM Name: Nikolas Silvestre : 1940 Caller: Nikolas Relationship to self No chief complaint on file. HPI: Nikolas Silvestre is a 83 year old male that is calling [facility] Intake to report that 6/10 [...] exacerbation symptoms: No Reinforcement Education: Routed to [facility] for recommendations Treatment/Plan: Level of call: Acute [...] Description 03/06/2024 9:30 AM EDT Scheduled Telephone [facility], [facility] 132 [facility] [place] [address] Coordinator, [facility] [address] [place] [address] 03/09/2024 12:30 PM EDT Imaging Radiology [facility] [address] [place] [address] 03/23/2024 10:00 AM EDT Home Visit [facility], [facility] 132 [facility] [place] [address] Myrtle Allen RN 132 [facility] [place] [address] 04/04/2024 8:00 AM EDT Office Visit Family Practice [address] [place] [address] 293 [place] [address] Benny Waite, 293 [place] [address] 04/25/2024 1:40 PM EST Telemedicine [facility], [facility] [address] [place] [address] Yadira Omalley CRNP 132 [facility] [place] [address] Ines Castro, Community Health Ice Cutter [address] [place] [address] 07/12/2024 8:00 AM EST Office Visit Cardiology, [facility] [address] [place] [address] Júnior Coppola PA-C [address] [place] [address] 08/14/2024 10:00 AM EST Office Visit Cardiology, [facility] [address] [place] [address] Casimiro Barraza MD [address] [place] [address] Health Maintenance Due Date Last Done Comments [...] this encounter Medical Devices Implanted Type Area Barrel Liner Device Identifier Shelf Expiration Date Model / Serial / Lot Device Watchman Flx 35mm - [id number] Implanted:Qty: 1 on 02/05/2022 by Diamond Teran IV, MD at [facility] [place] [employer] : INTRV CARD [id number] 10/20/2024 [id number] 50 / / [id number] Cath Thermodilution 6fr - [id number] Implanted:Qty: 1 on 07/31/2022 by Franco Mcgregor MD at [facility] [place] [employer] [id number] 04/30/2024 [id number] / / [id number] Mirtaclip G4 - [id number] Implanted:Qty: 1 on 11/16/2022 at [facility] [employer] 06/25/2023 [id number] / / [id number] Clip Delivery Sytem G4 Xtw - [id number] Implanted:Qty: 1 on 11/16/2022 at [facility] [place] [facility] [employer] [id number] 08/10/2023 [id number] TW / / [id number] Clip Delivery Sytem G4 Xtw - [id number] Implanted:Qty: 1 on 11/16/2022 at [facility] [employer] [id number] 09/10/2023 [id number] TW / / [id number] documented as of this encounter Advance [...] and were consensually agreed upon. Care Teams Anesthesiologist Relationship Specialty Start Date End Date Benny Waite DO [address] [place] [address] PCP - General Internal Medicine 11/25/23 documented as of this encounter
--- OUTSIDE RECORDS SUMMARY | 2024-03-26 09:52 | External Medical Summary | Summary of Care ---
Author Name Unknown Organization [facility] Address [address] [facility] [place] [address] Phone [phone] Care Team Providers Care Geriatrician Name Role Phone Benny Waite DO Primary Care Provider [phone] Reason for Visit * Reason Onset Date Comments [facility]: Acute 03/04/2024 Encounter Details Date Type Department Care Team (Late st Contact Info) Description 03/04/2024 8:30 AM EDT Scheduled Telephone [facility], [facility] 132 [facility] [place] [address] [facility], Nurse [facility] 132 [facility] [place] [address] Allergies Active Allergy Reactions Criticality Noted Date Comments Adhesive Tape 02/04/2017 Duloxetine High 07/13/2023 Other Reaction(s): confusion Levofloxacin 09/01/2019 documented as of this encounter (statuses as of 03/04/2024) Medications Medication Sig Dispensed Refills Start Date [...] 137 MCG/SPRAY Nasal SolutionIndication s:Allergies Administer 1 [place] into each nostril 2 times a day [...] as of this encounter (statuses as of 03/04/2024) Active Problems Problem Noted Date Diagnosed Date [...] night without results. 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 02/05/2022 Permanent atrial fibrillation 12/22/2021 Overview: Added automatically from request for surgery [id number] Last Assessment & Plan: S/p Watchman Current [...] Remote Patient Monitoring Vendor: [facility] Device(s): Connected Scale [...] as of this encounter (statuses as of 03/04/2024) Resolved Problems Problem Noted Date Diagnosed Date [...] as of this encounter (statuses as of 03/04/2024) Immunizations Name Administration Dates Next Due COVID-19 mRNA, LNP-s, No Pre serve, 2-Dose Series (Moderna) 08/20/2020,07/17/2020 COVID-19 mRNA, LNP-s, No Pre serve, 2-Dose Series (Pfizer) 05/14/2021 COVID-19, LNP-s, No Preserve , Robbie-sucrose, Ages 12+ (Pfizer) 11/04/2021 COVID-19, MRNA-LNP, 23-24, P F, 30 MCG/0.3 mL, 12 YRS AND ABOVE, IM ([facility]) 11/29/2023,04/16/2023 Covid-19, Mrna, Lnp-s, Pf, B [...] Telephone Encounter - Micheline Medrano RN - 03/04/2024 4:48 PM EDT [facility] Remote Patient Monitoring Able to contact patient: Trigger type: Abnormal reading(s): Symptom review: Weak/Dizzy: weakness today Diet Reviewed: N/A Fluid Intake Reviewed: Yes. Patient is on a fluid restriction: Yes, restriction amount in milliliters or liters: 2liters Adherent to restriction: Yes Self-Management Plan Reviewed: Risk assignment recommendation: Moderate [...] symptoms Additional risk selection justification: Spoke with Nikolas reports unable to get his pulse ox into the90's all day, denies SOB, has a dry throat, no cough, no edema to ble's no abdominal bloating, weight is stable, instructed to increase O2 to 3lpm and re-check pulse ox, call dropped while waiting for patient to re- check his pulse ox. Is going to change his oxygen tubing tonight. Return call from patient, pulse ox 94% at 3lpm, will call with any change in condition Follow up call on for tomorrow Overall risk and identified plan: Moderate risk: Next day follow up call scheduled Route to RNCM (Registered Nurse Survey Research Associate) and Advance Practitioner MERLINE Iverson Registered Nurse Navigator Triage [facility] documented in this encounter Plan of Treatment Upcoming Encounters Date Type Department Care Team (Late st Contact Info) Description 03/05/2024 9:00 AM EDT Scheduled Telephone [facility], [address] [place] [address] Region, Nurse [address] [place] [address] 03/06/2024 9:30 AM EDT Scheduled Telephone [facility], [address] [place] [address] Coordinator, [facility] [place] [place] [address] 03/09/2024 12:30 PM EDT Imaging Radiology [facility] [place] [address] 03/23/2024 10:00 AM EDT Home Visit [facility], [facility] 132 [facility] [place] [address] Myrtle Allen, RN 132 [place] [address] 04/04/2024 8:00 AM EDT Office Visit Family Practice [address] [place] [address] 293 [facility] [place] [address] Benny Waite, 293 [place] [address] 04/25/2024 1:40 PM EST Telemedicine [facility], [facility] 132 [facility] [place] [address] Yadira Omalley CRNP [facility] [place] [facility] [place] [address] Ines Castro, Community Health Veterinary Pathologist [address] [place] [address] 07/12/2024 8:00 AM EST Office Visit Cardiology, [facility] 132 [facility] [place] [address] Júnior Coppola PAClifC 132 [facility] [place] [address] 08/14/2024 10:00 AM EST Office Visit Cardiology, [facility] 132 [facility] [place] [address] Casimiro Barraza MD [address] [place] [address] Health Maintenance Due Date Last Done Comments [...] this encounter Medical Devices Implanted Type Area Montessori Lead Teacher Device Identifier Shelf Expiration Date Model / Serial / Lot Device Watchman Flx 35mm - [id number] Implanted:Qty: 1 on 02/05/2022 by Diamond Teran IV, MD at [facility] [employer] : INTRV CARD [id number] 10/20/2024 [id number] 50 / / [id number] Cath Thermodilution 6fr - [id number] Implanted:Qty: 1 on 07/31/2022 by Franco Mcgregor MD at [facility] [employer] JACINTO [id number] 04/30/2024 [id number] / / [id number] Mirtaclip G4 - [id number] Implanted:Qty: 1 on 11/16/2022 at [facility] [employer] 06/25/2023 [id number] / / [id number] Clip Delivery Sytem G4 Xtw - [id number] Implanted:Qty: 1 on 11/16/2022 at [facility] [employer] [id number] 08/10/2023 [id number] TW / / [id number] Clip Delivery Sytem G4 Xtw - [id number] Implanted:Qty: 1 on 11/16/2022 at [facility] [employer] [id number] 09/10/2023 [id number] TW / / [id number] documented as of this encounter Advance [...] and were consensually agreed upon. Care Teams Geriatrician Relationship Specialty Start Date End Date Benny Waite DO [address] [place] [place] [address] PCP - General Internal Medicine 11/25/23 documented as of this encounter
--- OUTSIDE RECORDS SUMMARY | 2024-03-26 09:52 | External Medical Summary | Summary of Care ---
Author Name Unknown Organization [facility] Address [address] [facility] [place] [address] Phone [phone] Care Team Providers Care Bottom Liner Name Role Phone Benny Waite DO Primary Care Provider [phone] Reason for Visit * Reason Onset Date Comments [facility]: Acute 03/03/2024 Encounter Details Date Type Department Care Team (Late st Contact Info) Description 03/03/2024 Telephone [facility], [facility] [address] [facility] [place] [address] Micheline Medrano RN [address] [facility] [place] [phone] [facility]: Acute Allergies Active Allergy [...] 137 MCG/SPRAY Nasal SolutionIndication s:Allergies Administer 1 [place] into each nostril 2 times a day [...] MVR (mitral valve repair) 11/16/2022 Atherosclerosis of [place] co ronary artery without angina pectoris 08/11/2022 Severe tricuspid regurgitation 08/11/2022 Gout, arthropathy 07/20/2022 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 Device(s): Connected Scale [...] MCG/0.3 mL, 12 YRS AND ABOVE, IM ([facility]) 11/29/2023,04/16/2023 Covid-19, Mrna, Lnp-s, Pf, B ivalent, [...] 03/03/2024 1:47 PM EDT [facility] digital forensic examiner Acute Call Date: 03/03/2024 Time: 1:47 PM Name: Nikolas Silvestre : 1940 Caller: Nikolas Relationship to self No chief complaint on file. HPI: Nikolas Silvestre is a 83 year old male that is calling [employer] at [facility] Intake to report that 6/10 [...] symptoms: No Reinforcement Education: Routed to [facility] for recommendations Treatment/Plan: Level of [...] AM EDT Scheduled Telephone [facility], [facility] [address] [place] [address] Coordinator, [facility] [address] [place] [address] 03/09/2024 12:30 PM EDT Imaging Radiology [facility] 132 [facility] [place] [address] 03/23/2024 10:00 AM EDT Home Visit [facility], [facility] [address] [place] [address] Myrtle Allen RN [address] [place] [address] 04/04/2024 8:00 AM EDT Office Visit Family Practice [address] [place] [address] 293 [place] [address] Benny Waite DO 293 [facility] [place] [address] 04/25/2024 1:40 PM EST Telemedicine [facility], [facility] 132 [facility] [place] [address] Yadira Omalley CRNP 132 [facility] [place] [address] Ines Castro, Community Health Knitter Machine [address] [place] [address] 07/12/2024 8:00 AM EST Office Visit Cardiology, [facility] 132 [facility] [place] [address] Júnior Coppola PA-C [address] [facility] [place] [address] 08/14/2024 10:00 AM EST Office Visit Cardiology, [facility] [place] [address] Casimiro Barraza MD 132 [facility] [place] [address] Health Maintenance Due Date Last Done Comments [...] this encounter Medical Devices Implanted Type Area Salvage Grinder Device Identifier Shelf Expiration Date Model / Serial / Lot Device Watchman Flx 35mm - [id number] Implanted:Qty: 1 on 02/05/2022 by Diamond Teran IV, MD at [facility] [place] [employer] : INTRV CARD [id number] 10/20/2024 [id number] / / [id number] Cath Thermodilution 6fr - [id number] Implanted:Qty: 1 on 07/31/2022 by Franco Mcgregor MD at [facility] [place] [facility] [employer] [id number] 04/30/2024 [id number] / / [id number] Mirtaclip G4 - [id number] Implanted:Qty: 1 on 11/16/2022 at [facility] [facility] [employer] 06/25/2023 [id number] / / [id number] Clip Delivery Sytem G4 Xtw - [id number] Implanted:Qty: 1 on 11/16/2022 at [facility] [place] [facility] [employer] [id number] 08/10/2023 [id number] TW / / [id number] Clip Delivery Sytem G4 Xtw - [id number] Implanted:Qty: 1 on 11/16/2022 at [facility] [place] [facility] [employer] [id number] 09/10/2023 [id number] / / [id number] documented as of this encounter Advance [...] and were consensually agreed upon. Care Teams Bottom Liner Relationship Specialty Start Date End Date Benny Waite DO 293 [facility] [place] [address] PCP - General Internal Medicine 11/25/23 documented as of this encounter
--- OUTSIDE RECORDS SUMMARY | 2024-03-26 09:52 | External Medical Summary | Summary of Care ---
Author Name Unknown Organization [facility] Address [address] [facility] [place] [address] Phone [phone] Care Team Providers Care Staff Nurse Name Role Phone Benny Waite DO Primary Care Provider [phone] Reason for Visit * Reason Onset Date Comments Advice 03/02/2024 Encounter Details Date Type Department Care Team (Late st Contact Info) Description 03/02/2024 Telephone Interventional Pain Center, 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 Made him aware was not in the office on Wednesday and we didn't receive a message from his pcp regarding plavix hold until yesterday when the clinic was closed. Given plavix instructions and transferred to [facility] to schedule. * Telephone Encounter - Benny Waite DO - 03/05/2024 10:25 AM EDT Patient just completed treatment for pneumonia. He may hold Clopidogrel for 7 days prior to injection. * Telephone Encounter - Alissa Santamaria OSA - 03/03/2024 1:46 PM EDT Call rec'd at [facility] Interventional Pain from Call Center. Pt upset that he did not receive a callback from Pain Office yesterday. "Yesterday must have never happened" since no one called me back. Pt stated he wanted to speak with [facility]. Pt wanted to know why did not call him yesterday. Advised pt, [facility] will not comment on what otheroffices do or don't do. Pt stated if no one wanted to do anything about his pain, he needs to be given something for it. Ptinformed that we do not give out pain medications, we are injection only. He would have to request the medications from his PCP office. Pt stated "Well that will take a month or more to hear anythingback from them" and then he hung up. * Addendum Note - Amador Prasad DO - 03/02/2024 4:40 PM EDTAddended by: AMADOR PRASAD on: 03/02/2024 04:40 PM Modules accepted: Orders * Telephone Encounter - Ale Valentine LPN - 03/02/2024 1:50 PM EDT Low back/waistline, does not radiate into legs or buttocks. flared a few days ago, terrible with walking. Unable to finish grocery shopping. Relieved with sitting. documented in this encounter Plan of Treatment Upcoming Encounters Date Type Department Care Team (Late st Contact Info) Description 03/06/2024 12:30 PM EDT [facility], [facility] [address] [address] Myrtle Allen RN [address] [place] [address] 03/07/2024 9:15 AM EDT Scheduled Telephone [facility] [place], [facility] 132 [place] [address] Coordinator, [facility] [address] [facility] [place] [address] 03/08/2024 10:15 AM EDT Scheduled Telephone [facility], [facility] [place] [address] Coordinator, [facility] [place] [address] 03/09/2024 12:30 PM EDT Imaging Radiology [facility] [address] [facility] [place] [address] 03/23/2024 10:00 AM EDT [facility], [facility] [address] [facility] [place] [address] Myrtle Allen RN 132 [facility] [address] 04/04/2024 8:00 AM EDT Office Visit Family Practice [address] [place] [address] 293 [place] [address] Benny Waite, 293 [place] [address] 04/25/2024 1:40 PM EST Telemedicine [facility], [facility] 132 [facility] [place] [address] Yadira Omalley CRNP 132 [facility] [address] Ines Castro, Community Health Wet Roaster [facility] [address] 05/24/2024 9:15 AM EST Hospital Encounter [facility], Operating Room [facility] [address] [facility] [place] [id number] Gino, Max Bruno, DO [address] [place] [address] 05/24/2024 9:15 AM EST - 05/24/2024 9:40 AM EST Surgery OR [facility], Operating Room [facility] [address] [place] [address] Amador Prasad, DO [address] [place] [address] INJECTION SPINE LUMBAR OR SACRAL 07/12/2024 8:00 AM EST Office Visit Cardiology, [facility] [address] [place] [address] Júnior Coppola PA-C [address] [place] [address] 08/14/2024 10:00 AM EST Office Visit Cardiology, [facility] [address] [place] [address] Casimiro Barraza MD [address] [place] [address] Scheduled Orders Name Type Priority Associated Diagnoses Orde r Schedule INJECT DX/THER SUBSTANCE INTERLAMINAR LUMBAR/SACRAL W IMAGE GUIDE Procedures Routine Spinal stenosis of lumbar region with neurogenic claudication Expected: 03/09/2024, Expires: 06/01/2024 Scheduled Procedures Name Priority Associated Diagnoses Date/Ti [...] this encounter Medical Devices Implanted Type Area Level Designer Device Identifier Shelf Expiration Date Model / Serial / Lot Device Watchman Flx 35mm - [id number] Implanted:Qty: 1 on 02/05/2022 by Diamond Teran IV, MD at [facility] [employer] : INTRV CARD [id number] 10/20/2024 [id number] 50 / / [id number] Cath Thermodilution 6fr - [id number] Implanted:Qty: 1 on 07/31/2022 by Franco Mcgregor MD at [facility] [employer] [id number] 04/30/2024 [id number] / / [id number] Mirtaclip G4 - [id number] Implanted:Qty: 1 on 11/16/2022 at [facility] [employer] 06/25/2023 [id number] / / [id number] Clip Delivery Sytem G4 Xtw - [id number] Implanted:Qty: 1 on 11/16/2022 at [facility] [employer] [id number] 08/10/2023 [id number] TW / / [id number] Clip Delivery Sytem G4 Xtw - [id number] Implanted:Qty: 1 on 11/16/2022 at [facility] [employer] [id number] 09/10/2023 [id number] TW / / [id number] documented as of this encounter Visit Diagnoses Diagnosis Spinal stenosis of lumbar region with neurogenic claudication- Primary Spinal stenosis, lumbar region, with neurogenic claudication Spinal stenosis of lumbar region with neurogenic [...] were consensually agreed upon. Care Teams Staff Nurse Relationship Specialty Start Date End Date Benny Waite DO [address] [place] [address] PCP - General Internal Medicine 11/25/23 documented as of this encounter
--- OUTSIDE RECORDS SUMMARY | 2024-03-26 09:52 | External Medical Summary | Summary of Care ---
Author Name Unknown Organization [facility] Address [address] [facility] [place] [address] Phone [phone] Care Team Providers Care Elementary Principal Name Role Phone Benny Waite DO Primary Care Provider [phone] Reason for Visit * Reason Onset Date Comments Advice 03/02/2024 Encounter Details Date Type Department Care Team (Late st Contact Info) Description 03/02/2024 Telephone Interventional Pain Center, [facility] [address] [place] [id number] Amador Prasad DO [address] [place] [...] 137 MCG/SPRAY Nasal SolutionIndication s:Allergies Administer 1 [place] into each nostril 2 times a day [...] results. He will go to [facility] for abdominal x-ray today to rule [...] MVR (mitral valve repair) 11/16/2022 Atherosclerosis of [place] co ronary artery without angina pectoris 08/11/2022 Severe tricuspid regurgitation 08/11/2022 Gout, arthropathy 07/20/2022 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 02/05/2022 Permanent atrial fibrillation 12/22/2021 Overview: Added automatically from request for surgery [id number] Last Assessment & Plan: S/p Watchman Current [...] MCG/0.3 mL, 12 YRS AND ABOVE, IM (General Fusion-Comirnat) 11/29/2023,04/16/2023 Covid-19, Mrna, Lnp-s, Pf, B ivalent, [...] encounter Miscellaneous Notes * Telephone Encounter - Alissa Santamaria OSA - 03/03/2024 1:46 PM EDT Call rec'd at [facility] Interventional Pain from Call Center. Pt upset that he did not receive a callback from Pain Office yesterday. "Yesterday must have never happened" since no one called me back. Pt stated he wanted to speak with [facility] Pain. Pt wanted to know why did not call him yesterday. Advised pt, [facility] will not comment on what otheroffices do [...] 9:30 AM EDT Scheduled Telephone [facility] [place], [facility] 132 [facility] [place] [address] Coordinator, [facility] [place] [address] 03/09/2024 12:30 PM EDT Imaging Radiology [facility] 132 [facility] [place] [address] 03/23/2024 10:00 AM EDT Home Visit [facility] [place], [facility] 132 [facility] [place] [address] Myrtle Allen, RN 132 [facility] [place] [address] 04/04/2024 8:00 AM EDT Office Visit Family Practice [address] [place] [address] 293 [place] [address] Benny Waite DO 293 [facility], [place] [address] 04/25/2024 1:40 PM EST Telemedicine [facility], [facility] 132 [facility] [place] [address] Yadira Omalley CRNP [address] [facility] [place] [address] Ines Castro, Community Health Level Vial Inside Grinder [address] [place] [address] 07/12/2024 8:00 AM EST Office Visit Cardiology, [facility] [address] [facility] [place] [address] Júnior Coppola PA-C [address] [place] [address] 08/14/2024 10:00 AM EST Office Visit Cardiology, [facility] [address] [facility] [place] [address] Casimiro Barraza MD [address] [place] [address] Scheduled Orders Name Type Priority Associated Diagnoses Orde r Schedule INJECT DX/THER SUBSTANCE INTERLAMINAR LUMBAR/SACRAL W IMAGE GUIDE Procedures Routine Spinal stenosis of lumbar region with neurogenic claudication Expected: 03/09/2024, Expires: 06/01/2024 Health Maintenance Due Date Last Done Comments [...] this encounter Medical Devices Implanted Type Area Police Department Secretary Device Identifier Shelf Expiration Date Model / Serial / Lot Device Watchman Flx 35mm - [id number] Implanted:Qty: 1 on 02/05/2022 by Diamond Teran IV, MD at [facility] Mtime : INTRV CARD [id number] 10/20/2024 [id number] 50 / / [id number] Cath Thermodilution 6fr - [id number] Implanted:Qty: 1 on 07/31/2022 by Franco Mcgregor MD at [facility] [employer] [id number] 04/30/2024 [id number] / / [id number] Mirtaclip G4 - [id number] Implanted:Qty: 1 on 11/16/2022 at [facility] [employer] 06/25/2023 [id number] / / [id number] Clip Delivery Sytem G4 Xtw - [id number] Implanted:Qty: 1 on 11/16/2022 at [facility] [employer] [id number] 08/10/2023 [id number] TW / / [id number] Clip Delivery Sytem G4 Xtw - [id number] Implanted:Qty: 1 on 11/16/2022 at [facility] [employer] [id number] 09/10/2023 [id number] TW / / [id number] documented as of this encounter Visit [...] and were consensually agreed upon. Care Teams Elementary Principal Relationship Specialty Start Date End Date Benny Waite DO 293 [place] [address] PCP - General Internal Medicine 11/25/23 documented as of this encounter
--- OUTSIDE RECORDS SUMMARY | 2024-03-26 09:52 | External Medical Summary | Summary of Care ---
Author Name Unknown Organization [facility] Address [address] [facility] [place] [address] Phone [phone] Care Team Providers Care Unpaid Intern Name Role Phone Benny Waite DO Primary Care Provider [phone] Reason for Visit * Reason Onset Date Comments Acute Problem Follow Up 03/05/2024 Encounter Details Date Type Department Care Team (Late st Contact Info) Description 03/05/2024 9:00 AM EDT Scheduled Telephone [facility], [facility] 132 [facility] [place] [address] [facility], Nurse [facility] [address] [facility] [place] [address] Allergies Active Allergy Reactions Criticality Noted Date [...] 137 MCG/SPRAY Nasal SolutionIndication s:Allergies Administer 1 [place] into each nostril 2 times a day [...] MVR (mitral valve repair) 11/16/2022 Atherosclerosis of [place] co ronary artery without angina pectoris 08/11/2022 Severe tricuspid regurgitation 08/11/2022 Gout, arthropathy 07/20/2022 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 [facility] to f/u with phone call on 03/06. documented in this encounter Plan of Treatment Upcoming Encounters Date Type Department Care Team (Late st Contact Info) Description 03/06/2024 9:30 AM EDT Scheduled Telephone [facility], [facility] 132 [facility] [place] [address] Coordinator, [facility] 132 [facility] [place] [address] 03/09/2024 12:30 PM EDT Imaging Radiology [facility] 132 [facility] [place] [address] 03/23/2024 10:00 AM EDT [facility] Visit [facility], [facility] 132 [facility] [place] [address] Myrtle Allen, RN 132 [facility] [place] [address] 04/04/2024 8:00 AM EDT Office Visit Family Practice [address] [place] [address] 293 [place] [address] Benny Waite, 293 [place] [address] 04/25/2024 1:40 PM EST Telemedicine [facility], [facility] 132 [facility] [place] [address] Yadira Omalley CRNP 132 [facility] [place] [address] Ines Castro, Community Health Radio Maintainer [address] [place] [address] 07/12/2024 8:00 AM EST Office Visit Cardiology, [facility] 132 [facility] [place] [address] Júnior Coppola PA-C [facility] [place] [address] 08/14/2024 10:00 AM EST Office Visit Cardiology, [facility] 132 [facility] [place] [address] Casimiro Barraza MD [address] [place] [address] Health Maintenance Due Date Last Done Comments [...] this encounter Medical Devices Implanted Type Area Tool Crib Manager Device Identifier Shelf Expiration Date Model / Serial / Lot Device Watchman Flx 35mm - [id number] Implanted:Qty: 1 on 02/05/2022 by Diamond Teran IV, [place] at [facility] [employer] : INTRV CARD [id number] 10/20/2024 [id number] 50 / / [id number] Cath Thermodilution 6fr - [id number] Implanted:Qty: 1 on 07/31/2022 by Franco Mcgregor MD at [facility] [employer] [id number] 04/30/2024 [id number] / / [id number] Mirtaclip G4 - [id number] Implanted:Qty: 1 on 11/16/2022 at [facility] [employer] 06/25/2023 [id number] / / [id number] Clip Delivery Sytem G4 Xtw - [id number] Implanted:Qty: 1 on 11/16/2022 at [facility] [employer] [id number] 08/10/2023 [id number] TW / / [id number] Clip Delivery Sytem G4 Xtw - [id number] Implanted:Qty: 1 on 11/16/2022 at [facility] [employer] [id number] 09/10/2023 [id number] TW / / [id number] documented as of this encounter Advance [...] and were consensually agreed upon. Care Teams Unpaid Intern Relationship Specialty Start Date End Date Benny Waite DO [address] [place] [address] PCP - General Internal Medicine 11/25/23 documented as of this encounter
--- OUTSIDE RECORDS SUMMARY | 2024-03-26 09:52 | External Medical Summary | Summary of Care ---
Author Name Unknown Organization [facility] Address [address] [facility] [place] [address] Phone [phone] Care Team Providers Care Multiple Coil Winder Name Role Phone Benny Waite DO Primary Care Provider [phone] Reason for Visit * Reason Onset Date Comments Advice 03/02/2024 Encounter Details Date Type Department Care Team (Late st Contact Info) Description 03/02/2024 Telephone Interventional Pain Center, [facility] [address] [place] [id number] Amador Prasad DO [address] [place] [...] 137 MCG/SPRAY Nasal SolutionIndication s:Allergies Administer 1 [place] into each nostril 2 times a day [...] results. He will go to [facility] for abdominal x-ray today to rule [...] MVR (mitral valve repair) 11/16/2022 Atherosclerosis of [place] co ronary artery without angina pectoris 08/11/2022 Severe tricuspid regurgitation 08/11/2022 Gout, arthropathy 07/20/2022 Presence of Watchman left atrial appendage closu re device 02/05/2022 Permanent atrial fibrillation 12/22/2021 Overview: Added automatically from request for surgery [id number] Last Assessment & Plan: S/p Watchman Current [...] MCG/0.3 mL, 12 YRS AND ABOVE, IM (BioMedFlex-Comirnat) 11/29/2023,04/16/2023 Covid-19, Mrna, Lnp-s, Pf, B ivalent, [...] to injection. * Telephone Encounter - Alissa Santamaria, DEX - 03/03/2024 1:46 PM EDT Call rec'd at [facility] Interventional Pain from Call Center. Pt upset that he did not receive a callback from Pain Office yesterday. "Yesterday must have never happened" since no one called me back. Pt stated he wanted to speak with [facility] Pain. Pt wanted to know why did not call him yesterday. Advised pt, [facility] will not comment on what otheroffices do [...] AM EDT Scheduled Telephone [facility], [facility] [address] [place] [address] Coordinator, [facility] 132 [place] [address] 03/09/2024 12:30 PM EDT Imaging Radiology [facility] [address] [address] 03/23/2024 10:00 AM EDT [facility] [place], [facility] [address] [place] [address] Myrtle Allen, RN 132 [place] [address] 04/04/2024 8:00 AM EDT Office Visit Family [address] 293 [facility], [place] [address] Benny Waite DO 293 [place] [address] 04/25/2024 1:40 PM EST Telemedicine [facility], [facility] 132 [place] [address] Yadira Omalley CRNP 132 [place] [address] Ines Castro, Community Health County Demonstrator [address] [place] [address] 07/12/2024 8:00 AM EST Office Visit Cardiology, [facility] 132 [facility] [place] [address] Júnior Coppola PAClifC 132 [place] [address] 08/14/2024 10:00 AM EST Office Visit Cardiology, [facility] 132 [facility] [place] [address] Casimiro Barraza MD 132 [place] [address] Scheduled Orders Name Type Priority Associated Diagnoses [...] this encounter Medical Devices Implanted Type Area Photographic Machine Operator Device Identifier Shelf Expiration Date Model / Serial / Lot Device Watchman Flx 35mm - [id number] Implanted:Qty: 1 on 02/05/2022 by Diamond Teran IV, MD at [facility] [employer] : INTRV CARD [id number] 10/20/2024 [id number] 50 / / [id number] Cath Thermodilution 6fr - [id number] Implanted:Qty: 1 on 07/31/2022 by Franco Mcgregor MD at [facility] [employer] [id number] 04/30/2024 [id number] / / [id number] Mirtaclip G4 - [id number] Implanted:Qty: 1 on 11/16/2022 at [facility] [employer] 06/25/2023 [id number] / / [id number] Clip Delivery Sytem G4 Xtw - [id number] Implanted:Qty: 1 on 11/16/2022 at [facility] [employer] [id number] 08/10/2023 [id number] TW / / [id number] Clip Delivery Sytem G4 Xtw - [id number] Implanted:Qty: 1 on 11/16/2022 at [facility] [employer] [id number] 09/10/2023 [id number] TW / / [id number] documented as of this encounter Visit [...] and were consensually agreed upon. Care Teams Multiple Coil Winder Relationship Specialty Start Date End Date Benny Waite DO 293 [place] [address] PCP - General Internal Medicine 11/25/23 documented as of this encounter
--- OUTSIDE RECORDS SUMMARY | 2024-03-26 09:52 | External Medical Summary | Summary of Care ---
Author Name Unknown Organization [facility] Address [address] [facility] [place] [address] Phone [phone] Care Team Providers Care Linux Engineer Name Role Phone Benny Waite DO Primary Care Provider [phone] Reason for Visit * Reason Onset Date Comments [facility]: Maintenance 03/06/2024 Encounter Details Date Type Department Care Team (Late st Contact Info) Description 03/06/2024 9:30 AM EDT Scheduled Telephone [facility], [facility] [address] [place] [address] Coordinator, [facility] [address] [facility] [place] [address] Allergies Active Allergy Reactions Criticality Noted Date [...] 137 MCG/SPRAY Nasal SolutionIndication s:Allergies Administer 1 [place] into each nostril 2 times a day [...] night without results. 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 [facility] Telephonic Nurse Follow-Up Call [facility] Subprogram: Focused Care Management (3-9 months) Follow Up Call Type: weekend follow up Acute issue requiring follow-up call: Other: low spo2, in 80s. Objective: 03/01/2024 2:41 PM 02/28/2024 8:57 AM 02/23/2024 2:45 PM 02/19/2024 4:22 PM 02/15/2024 7:55 AM VITALS ACROSS ENCOUNTERS BP 112/62 118/72 112/68 112/62 116/76 Pulse 66 88 60 68 76 Weight 98.9 kg 98.9 kg 100.5 kg BMI 32.18 BMI 32.19 kg/m2 32.19 kg/m2 32.72 kg/m2 Remote Patient Monitoring: [facility] Scale: see below [facility] Blood Pressure Cuff: see below [facility] Pulse Ox: see below Oxygen Needs: INCREASED supplemental oxygen needs from baseline (baseline is 2LPM. Currently using at 3LPM) DME Needs: NO DME needs identified Medications: No medication or dose adjustments made during acute episode SpO2 Readings from Last 10 Encounters: 03/01/24 95% 02/28/24 94% 02/23/24 96% 02/19/24 96% 02/07/24 98% 01/28/24 98% 01/25/24 95% 01/07/24 95% 12/30/23 90% 12/22/23 91% Subjective: Condition Status: Worsening of symptoms Current Concerns: Patient on for follow up call due to low pulse ox RPM Triggers over the weekend. Pt recently treated for pneumonia with doxycyline and Augmentin, both of which were completed yesterday. Patient reports that he is not feeling the greatest this morning. He has had recent pulse ox readings <90% despite increasing his oxygen liter flow to 3LPM from 2LPM. Per chart review, home visit readings have been wnl. Pt states that he is still coughing post antibiotic therapy. He feels better than he did prior to antibiotics, but his sob and increased cough come and go. Not bringing anything up when he coughs currently. Denies fever/chills. Since pulse ox readings are lower recently and patient has increased oxygen use from 2LPM to 3LPM, recommend acute home visit to assess today. Disposition: RNCM visit scheduled Future Visits Scheduled: Future Appointments-next 60 days Date/Time Provider Specialty Dept Phone 03/06/2024 9:30 AM Coordinator, Fanny Thomas [facility] [phone] 03/09/2024 12:30 PM (Arrive by 12:15 PM) [address] Radiology [phone] 03/23/2024 10:00 AM Myrtle Allen RN [facility] [phone] 04/04/2024 8:00 AM (Arrive by 7:45 AM) Benny Waite, Family Medicine [phone] 04/25/2024 1:40 PM Ines Castro, Community Health Station Usher; Yadira Omalley CRNP [facility] [phone] 07/12/2024 8:00 AM (Arrive by 7:45 AM) Júnior Coppola PA-C Cardiology [phone] 08/14/2024 10:00 AM (Arrive by 9:45 AM) Casimiro Barraza MD Cardiology [phone] Ines Coates RN documented in this encounter Plan of Treatment Upcoming Encounters Date Type Department Care Team (Late st Contact Info) Description 03/06/2024 12:30 PM EDT Home Visit [facility], [facility] [address] [place] [address] Myrtle Allen, RN [address] [place] [address] 03/07/2024 9:15 AM EDT Scheduled Telephone [facility], [facility] [address] [place] [address] Coordinator, [facility] [address] [place] [address] 03/08/2024 10:15 AM EDT Scheduled Telephone [facility], [facility] [address] [place] [address] Coordinator, [place] [address] [place] [address] 03/09/2024 12:30 PM EDT Imaging Radiology [facility] [address] [place] [address] 03/23/2024 10:00 AM EDT Home Visit [facility], [facility] [address] [place] [address] Myrtle Allen, RN [address] [place], [place] [address] 04/04/2024 8:00 AM EDT Office Visit Family Practice [address] [place] [address] 293 [place] [address] Benny Waite DO 293 [facility] [place] [address] 04/25/2024 1:40 PM EST Telemedicine [facility], [facility] 132 [facility] [place] [address] Yadira Omalley CRNP 132 [facility] [place] [address] Ines Castro, Community [facility] Station Usher [address] [place] [address] 07/12/2024 8:00 AM EST Office Visit Cardiology, [facility] [address] [place] [address] Júnior Coppola PA-C [address] [place] [address] 08/14/2024 10:00 AM EST Office Visit Cardiology, [facility] [address] [place] [address] Casimiro Barraza MD [address] [place] [address] Scheduled Procedures Name Priority Associated Diagnoses Date/Ti me INJECTION SPINE LUMBAR OR SACRAL Spinal stenosis of lumbar region with neurogenic claudication Health Maintenance Due Date Last Done Comments [...] this encounter Medical Devices Implanted Type Area Stores Despatch Hand Device Identifier Shelf Expiration Date Model / Serial / Lot Device Watchman Flx 35mm - [id number] Implanted:Qty: 1 on 02/05/2022 [place] Diamond Teran IV, [place] [facility] [employer] [place] INTRV CARD [id number] 10/20/2024 [id number] / / [id number] Cath Thermodilution 6fr - [id number] Implanted:Qty: 1 on 07/31/2022 by Franco Mcgregor MD [place] [facility] [employer] [id number] 04/30/2024 [id number] / / [id number] Mirtaclip G4 - [id number] Implanted:Qty: 1 on 11/16/2022 [place] [facility] [employer] 06/25/2023 [id number] / / [id number] Clip Delivery Sytem G4 Xtw - [id number] Implanted:Qty: 1 on 11/16/2022 [place] [facility] [employer] [id number] 08/10/2023 [id number] / / [id number] Clip Delivery Sytem G4 Xtw - [id number] Implanted:Qty: 1 on 11/16/2022 [place] [facility] [employer] [id number] 09/10/2023 [id number] / / [id number] documented as of this encounter Advance [...] and were consensually agreed upon. Care Teams Linux Engineer Relationship Specialty Start Date End Date Benny Waite DO [address] [place] [address] PCP - General Internal Medicine 11/25/23 documented as of this encounter
--- OUTSIDE RECORDS SUMMARY | 2024-03-26 09:52 | External Medical Summary | Summary of Care ---
Author Name Unknown Organization [facility] Address [address] [facility] [place] [address] Phone [phone] Care Team Providers Care Music Industry Intern Name Role Phone Benny Waite DO Primary Care Provider [phone] Encounter Details Date Type Department Care Team (Late st Contact Info) Description 03/06/2024 12:30 PM EDT [facility] [address] [place] [address] Myrtle Allen, RN [address] [place] [address] Allergies Active Allergy Reactions Criticality Noted Date [...] 137 MCG/SPRAY Nasal SolutionIndication s:Allergies Administer 1 [place] into each nostril 2 times a day [...] night without results. He will go to [facility] for abdominal x-ray today to rule [...] MVR (mitral valve repair) 11/16/2022 Atherosclerosis of [place] co ronary artery without angina pectoris 08/11/2022 Severe tricuspid regurgitation 08/11/2022 Gout, arthropathy 07/20/2022 Presence of Watchman left atrial appendage closu re device 02/05/2022 Permanent atrial fibrillation 12/22/2021 Overview: Added automatically from request for surgery [id number] Last Assessment & Plan: S/p Watchman Current [...] 98 with oxygen on at 3.5 l/min [facility] reads 95 with oxygen on at 3.5 l/min Noted a faint crackle of LLL Afebrile - 97.5 - 18 - 112/68 TT sent to [facility] with assessment for further recommendations Per Dr Saenz - recommends goal oxygen level to be between 90-92% Oxygen is on at 2 l/min now and pulse ox is reading at 94% and 97% on pt's own and [facility] pulse ox and 95% on [facility] Pt is also going to be ordered [...] to have a sleep study done at [facility] - would not further elaborate as to why. He is reluctant to use a PAP machine but was told it is best that he does He would like [place] med [place] [facility] [place] a [place] [facility] sent to scheduling to assist in getting this set up. Physical Exam: Physical Exam Constitutional: General: He is not in acute distress. Cardiovascular: Rate and Rhythm: Normal rate. Pulses: Normal pulses. Heart sounds: Normal heart [...] encounter. Medications Given: Pt will have someone hot die picker steroid taper from pharmacy Care Gaps: Care Gaps Care gaps closed this contact:: Education;Medications (03/06/24 1318) Type of education: Clinical/disease (03/06/24 1318) Type of medication care gap: Medication adherence;Medication optimization (steroid taper ordered) (03/06/24 1318) documented in this encounter Plan of Treatment Upcoming Encounters Date Type Department Care Team (Late st Contact Info) Description 03/07/2024 9:15 AM EDT Scheduled Telephone [facility], [facility] 132 [facility] [place] [address] Coordinator, [facility] 132 [facility] [place] [address] 03/08/2024 10:15 AM EDT Scheduled Telephone [facility], [facility] [address] [place] [address] Coordinator, [facility] 132 [facility] [place] [address] 03/09/2024 12:30 PM EDT Imaging Radiology [facility] [address] [place] [address] 03/23/2024 10:00 AM EDT Home Visit [facility], [facility] [address] [place] [address] Myrtle Allen RN 132 [place] [address] 04/04/2024 8:00 AM EDT Office Visit Family [address] [facility] [address] Benny Waite, DO [address] [place] [address] 04/25/2024 1:40 PM EST Telemedicine [facility], [facility] [address] [place] [address] Yadira Omalley CRNP [address] [place] [address] Ines Castro, Community Health Long Lines Operator [address] [facility] [place] [address] 05/24/2024 9:15 AM EST Hospital Encounter [facility], Operating Room [facility] [address] [place] [address] Amador Christian, DO [address] [place] [address] 05/24/2024 9:15 AM EST - 05/24/2024 9:40 AM EST Surgery [facility] [place] [address] Amador Christian, [address] [place] [phone] INJECTION SPINE LUMBAR OR SACRAL 07/12/2024 8:00 AM EST Office Visit Cardiology, [facility] [address] [place] [address] Júnior Coppola PA-C [address] [place] [address] 08/14/2024 10:00 AM EST Office Visit Cardiology, [facility] [address] [place] [address] Casimiro Barraza MD [address] [place] [address] Scheduled Procedures Name Priority Associated Diagnoses Date/Ti [...] this encounter Medical Devices Implanted Type Area Shot Man Device Identifier Shelf Expiration Date Model / Serial / Lot Device Watchman Flx 35mm - [id number] Implanted:Qty: 1 on 02/05/2022 by Diamond Terna IV, MD at [facility] [employer] : INTRV CARD [id number] 10/20/2024 [id number] 50 / / [id number] Cath Thermodilution 6fr - [id number] Implanted:Qty: 1 on 07/31/2022 by Franco Mcgregor MD at [facility] [employer] [id number] 04/30/2024 [id number] / / [id number] Mirtaclip G4 - [id number] Implanted:Qty: 1 on 11/16/2022 at [facility] [employer] 06/25/2023 [id number] / / [id number] Clip Delivery Sytem G4 Xtw - [id number] Implanted:Qty: 1 on 11/16/2022 at [facility] [employer] [id number] 08/10/2023 [id number] / / [id number] Clip Delivery Sytem G4 Xtw - [id number] Implanted:Qty: 1 on 11/16/2022 at [facility] [employer] [id number] 09/10/2023 [id number] / / [id number] documented as of this encounter Advance [...] were consensually agreed upon. Care Teams Music Industry Intern Relationship Specialty Start Date End Date Benny Waite DO [address] [place] [address] PCP - General Internal Medicine 11/25/23 documented as of this encounter
--- OUTSIDE RECORDS SUMMARY | 2024-03-26 09:53 | External Medical Summary | Summary of Care ---
Author Name Unknown Organization [facility] Address [address] [facility] [address] Phone [phone] Care Team Providers Care Hotbed Transfer Operator Name Role Phone Benny Waite DO Primary Care Provider [phone] Reason for Visit * Reason Onset Date Comments [facility]: Maintenance 03/01/2024 Encounter Details Date Type Department Care Team (Late st Contact Info) Description 03/01/2024 Telephone [facility], [facility] [address] [place] [address] Myrtle Allen, RN [address] [place] [address] [facility]: Maintenance Allergies Active Allergy Reactions Criticality Noted Date Comments Adhesive Tape 02/04/2017 Duloxetine High 07/13/2023 Other Reaction(s): confusion Levofloxacin 09/01/2019 documented as of this encounter (statuses as of 03/02/2024) Medications Medication Sig Dispensed Refills Start Date [...] 137 MCG/SPRAY Nasal SolutionIndication s:Allergies Administer 1 [place] into each nostril 2 times a day [...] as of this encounter (statuses as of 03/02/2024) Active Problems Problem Noted Date Diagnosed Date [...] results. He will go to [facility] for abdominal x-ray today to rule [...] Overview: Added automatically from request for surgery [id number] Last Assessment & Plan: S/p Watchman Current [...] in the Comments) Remote Patient Monitoring Vendor: [facility] Device(s): Connected Scale Self - Management Plan [...] as of this encounter (statuses as of 03/02/2024) Resolved Problems Problem Noted Date Diagnosed Date [...] as of this encounter (statuses as of 03/02/2024) Immunizations Name Administration Dates Next Due COVID-19 mRNA, LNP-s, No Pre serve, 2-Dose Series ([facility]) 08/20/2020,07/17/2020 COVID-19 mRNA, LNP-s, No Pre serve, 2-Dose Series ([employer]) 05/14/2021 COVID-19, LNP-s, No Preserve , Robbie-sucrose, Ages 12+ (Pfizer) 11/04/2021 COVID-19, MRNA-LNP, 23-24, P F, 30 MCG/0.3 mL, 12 YRS AND ABOVE, IM ([facility]) 11/29/2023,04/16/2023 Covid-19, Mrna, Lnp-s, Pf, B [...] Addendum Note - Yadira Omalley CRNP - 03/02/2024 10:54 AM EDTAddended by: YADIRA OMALLEY on: 03/02/2024 10:54 AM Modules accepted: Orders * Telephone Encounter - Yadira Omalley CRNP - 03/02/2024 10:54 AM EDT Arm u/s ordered, --scheduling please assist with appt. Thanks ONOFRE Iraheta * Telephone Encounter - Yasmine Leung RN - 03/01/2024 4:56 PM EDT Called and spoke with patient, he is agreeable to have ultrasound of his arm Requested assistance in getting it scheduled Yasmine Leung, RN, BSN principal system software engineerDispatcher [employer] [phone] option #1 * Telephone Encounter - Yadira Omalley CRNP - 03/01/2024 4:49 PM EDT Would recommend ultrasound of the arm if he is willing. * Telephone Encounter - Myrtle Allen RN - 03/01/2024 3:35 PM EDT Images from the original note were not included. Pt has a hard lump measuring 5cm x 6cm on left upper arm Does not recall any injury or immunizations recently Has some mild pain with palpation No warmth or redness Does not seem to move Any advice or recommendations on this? documented in this encounter Plan of Treatment Upcoming Encounters Date Type Department Care Team (Late st Contact Info) Description 03/23/2024 10:00 AM EDT [facility] Visit [facility], [facility] [address] [facility] [place] [address] Myrtle Allen RN 132 [place] [address] 04/04/2024 8:00 AM EDT Office Visit Family Practice [address] [facility] [address] [place] [address] Benny Waite, 293 [place] [address] 04/25/2024 1:40 PM EST Telemedicine [facility] [place], [facility] 132 [facility] [place] [address] Yadira Omalley CRNP 132 [facility] [place] [address] Ines Castro, Community Health Bench Lathe Operator [address] [place] [address] 07/12/2024 8:00 AM EST Office Visit Cardiology, [facility] [address] [facility] [place] [address] Júnior Coppola PA-C [address] [place] [address] 08/14/2024 10:00 AM EST Office Visit Cardiology, [facility] [address] [place] [address] Casimiro Barraza MD [address] [place] [address] Scheduled Orders Name Type Priority Associated Diagnoses Orde r Schedule US EXTREMITY, NON-VASCULAR LIMITED Medical Imaging Routine Mass of left upper extremity Expected: 03/09/2024, Expires: 04/01/2025 Health Maintenance Due Date Last Done Comments [...] this encounter Medical Devices Implanted Type Area Dopeman Device Identifier Shelf Expiration Date Model / Serial / Lot Device Watchman Flx 35mm - [id number] Implanted:Qty: 1 on 02/05/2022 by Diamond Teran IV, MD at [facility] [employer] : INTRV CARD [id number] 10/20/2024 [id number] 50 / / [id number] Cath Thermodilution 6fr - [id number] Implanted:Qty: 1 on 07/31/2022 by Franco Mcgregor MD at [facility] [employer] [id number] 04/30/2024 [id number] / / [id number] Mirtaclip G4 - [id number] Implanted:Qty: 1 on 11/16/2022 at [facility] [employer] 06/25/2023 [id number] / / [id number] Clip Delivery Sytem G4 Xtw - [id number] Implanted:Qty: 1 on 11/16/2022 at [facility] [place] [employer] [id number] 08/10/2023 [id number] / / [id number] Clip Delivery Sytem G4 Xtw - [id number] Implanted:Qty: 1 on 11/16/2022 at [facility] [employer] [id number] 09/10/2023 [id number] / / [id number] documented as of this encounter Visit Diagnoses Diagnosis Mass of left upper extremity- Primary documented in this encounter Advance Directives * [...] and were consensually agreed upon. Care Teams Hotbed Transfer Operator Relationship Specialty Start Date End Date Benny Waite DO [address] [facility] [place] [address] PCP - General Internal Medicine 11/25/23 documented as of this encounter
--- OUTSIDE RECORDS SUMMARY | 2024-03-26 09:53 | External Medical Summary | Summary of Care ---
Author Name Unknown Organization [facility] Address [address] [facility] [place] [address] Phone [phone] Care Team Providers Care Senior Windows Administrator Name Role Phone Benny Waite DO Primary Care Provider Reason for Visit * Reason Onset Date Comments Advice 03/02/2024 Encounter Details Date Type Department Care Team (Late st Contact Info) Description 03/02/2024 Telephone [facility], [facility] [address] [place] [id number] Amador Prasad DO [address] [place] [...] 137 MCG/SPRAY Nasal SolutionIndication s:Allergies Administer 1 [place] into each nostril 2 times a day [...] results. He will go to [facility] for abdominal x-ray today to [...] MVR (mitral valve repair) 11/16/2022 Atherosclerosis of [place] co ronary artery without angina pectoris 08/11/2022 Severe tricuspid regurgitation 08/11/2022 Gout, arthropathy 07/20/2022 Presence of Watchman left atrial appendage closu re device 02/05/2022 Permanent atrial fibrillation 12/22/2021 Overview: Added automatically from request for surgery [id number] Last Assessment & Plan: S/p Watchman Current [...] MCG/0.3 mL, 12 YRS AND ABOVE, IM ([employer]) 11/29/2023,04/16/2023 Covid-19, Mrna, Lnp-s, Pf, B ivalent, [...] encounter Miscellaneous Notes * Addendum Note - Amador Prasad DO [...] Description 03/09/2024 12:30 PM EDT Imaging Radiology [facility] 132 [facility] [place] [address] 03/23/2024 10:00 AM EDT Home Visit [facility] [address] [facility] [place] [address] Myrtle Allen, RN 132 [facility] [place] [address] 04/04/2024 8:00 AM EDT Office Visit Family Practice [address] [facility] [place] 293 [place] [address] Benny Waite, 293 [place] [address] 04/25/2024 1:40 PM EST Telemedicine [facility], [facility] [address] [facility] [place] [address] Yadira Omalley CRNP 132 [place] [address] Ines Castro, Community Health Tag Machine Operator [address] [place] [address] 07/12/2024 8:00 AM EST Office Visit Cardiology, [facility] [address] [facility] [place] [address] Júnior Coppola PA-C 132 [facility] [place] [address] 08/14/2024 10:00 AM EST Office Visit Cardiology, [facility] [address] [facility] [place] [address] Casimiro [facility] MD 132 [facility] [address] Scheduled Orders Name Type Priority Associated Diagnoses Orde r Schedule INJECT DX/THER SUBSTANCE INTERLAMINAR LUMBAR/SACRAL W IMAGE GUIDE Procedures Routine Spinal stenosis of lumbar region with neurogenic claudication Expected: 03/09/2024, Expires: 06/01/2024 Health Maintenance Due Date Last Done Comments COVID-19 Vaccine (8 - 2024-25 season) 2024 11/29/2023, 04/16/2023, 03/17/2022, Additional history [...] this encounter Medical Devices Implanted Type Area Parts Control Clerk Device Identifier Shelf Expiration Date Model / Serial / Lot Device Watchman Flx 35mm - [id number] Implanted:Qty: 1 on 02/05/2022 by Diamond Teran IV, [place] [facility] [employer] : INTRV CARD [id number] 10/20/2024 [id number] / / [id number] Cath Thermodilution 6fr - [id number] Implanted:Qty: 1 on 07/31/2022 by Franco Mcgregor MD at [facility] [employer] [id number] 04/30/2024 [id number] / / [id number] Mirtaclip G4 - [id number] Implanted:Qty: 1 on 11/16/2022 at [facility] [employer] 06/25/2023 [id number] / / [id number] Clip Delivery Sytem G4 Xtw - [id number] Implanted:Qty: 1 on 11/16/2022 at [facility] [employer] [id number] 08/10/2023 [id number] TW / / [id number] Clip Delivery Sytem G4 Xtw - [id number] Implanted:Qty: 1 on 11/16/2022 at [facility] [employer] [id number] 09/10/2023 [id number] / / [id number] documented as of this encounter Visit [...] were consensually agreed upon. Care Teams Senior Windows Administrator Relationship Specialty Start Date End Date Benny Waite DO 293 [place] [address] PCP - General Internal Medicine 11/25/23 documented as of this encounter
--- OUTSIDE RECORDS SUMMARY | 2024-03-26 09:53 | External Medical Summary | Summary of Care ---
Author Name Unknown Organization [facility] Address [address] [place] [address] Phone [phone] Care Team Providers Care Economics Instructor Name Role Phone Benny Waite DO Primary Care Provider [phone] Reason for Visit * Reason Onset Date Comments Appointment 03/02/2024 Encounter Details Date Type Department Care Team (Late st Contact Info) Description 03/02/2024 Telephone [facility] [place] [address] [place] [address] Corwin Block, DEX [address] [place], [place] [id number] Appointment Allergies Active Allergy Reactions Criticality Noted [...] 137 MCG/SPRAY Nasal SolutionIndication s:Allergies Administer 1 [place] into each nostril 2 times a day [...] MVR (mitral valve repair) 11/16/2022 Atherosclerosis of [place] co ronary artery without angina pectoris 08/11/2022 Severe tricuspid regurgitation 08/11/2022 Gout, arthropathy 07/20/2022 Presence of Watchman left atrial appendage closu re device 02/05/2022 Permanent atrial fibrillation 12/22/2021 Overview: Added automatically from request for surgery [id number] Last Assessment & Plan: S/p Watchman Current [...] MCG/0.3 mL, 12 YRS AND ABOVE, IM ([employer]) 11/29/2023,04/16/2023 Covid-19, Mrna, Lnp-s, Pf, B ivalent, [...] encounter Miscellaneous Notes * Telephone Encounter - Corwin Block OSA - 03/02/2024 12:18 PM EDT [facility] assist pt in scheduling [facility]t. [phone][facility] An appt was scheduled for , 03/09 at 12:30 [place] and LMOM with appt details and call back # for [facility] if appt does not work for him. documented in this encounter Plan of Treatment Upcoming Encounters Date Type Department Care Team (Late st Contact Info) Description 03/09/2024 12:30 PM EDT Imaging Radiology [facility] [address] [place] [address] 03/23/2024 10:00 AM EDT Home Visit [facility] [address] [place] [address] Myrtle Allen RN [address] [place] [address] 04/04/2024 8:00 AM EDT Office Visit Family Practice [address] [place] [address] [place] [address] Benny Waite DO 293 [place] [address] 04/25/2024 1:40 PM EST Telemedicine [facility], [facility] 132 [facility] [place] [address] Yadira Omalley CRNP 132 [facility] [address] Ines Castro, Community Health Labor Commissioner [address] [place] [address] 07/12/2024 8:00 AM EST Office Visit [facility], [facility] [address] Júnior Coppola, PAClifC 132 [facility] [address] 08/14/2024 10:00 AM EST Office Visit Cardiology, [facility] 132 [facility] [place] [address] Casimiro Barraza MD 132 [facility] [address] Health Maintenance Due Date Last Done Comments [...] encounter Medical Devices Implanted Type Area Chief Of Anesthesiology Device Identifier Shelf Expiration Date Model / Serial / Lot Device Watchman Flx 35mm - [id number] Implanted:Qty: 1 on 02/05/2022 by Diamond Teran IV, MD at [facility] [employer] : INTRV CARD [id number] 10/20/2024 [id number] 50 / / [id number] Cath Thermodilution 6fr - [id number] Implanted:Qty: 1 on 07/31/2022 by Franco Mcgregor MD at [facility] [employer] [id number] 04/30/2024 [id number] / / [id number] Mirtaclip G4 - [id number] Implanted:Qty: 1 on 11/16/2022 at [facility] [employer] 06/25/2023 [id number] / / [id number] Clip Delivery Sytem G4 Xtw - [id number] Implanted:Qty: 1 on 11/16/2022 at [facility] [email or web address] [id number] 08/10/2023 [id number] TW / / [id number] Clip Delivery Sytem G4 Xtw - [id number] Implanted:Qty: 1 on 11/16/2022 at [facility] [email or web address] [id number] 09/10/2023 [id number] TW / / [id number] documented as of this encounter Advance [...] and were consensually agreed upon. Care Teams Economics Instructor Relationship Specialty Start Date End Date Benny Waite DO 293 [place] [address] PCP - General Internal Medicine 11/25/23 documented as of this encounter
--- OUTSIDE RECORDS SUMMARY | 2024-03-26 09:53 | External Medical Summary | Summary of Care ---
Author Name Unknown Organization [facility] Address [address] [facility] [address] Phone [phone] Care Team Providers Care Pharmaceutical Officer Name Role Phone Benny Waite DO Primary Care Provider [phone] Reason for Visit * Reason Onset Date Comments [facility]: Maintenance 03/01/2024 Encounter Details Date Type Department Care Team (Late st Contact Info) Description 03/01/2024 Telephone [facility], [facility] [address] [place] [address] Myrtle Allen, RN [address] [place] [address] [facility]: Maintenance Allergies Active Allergy Reactions Criticality Noted Date Comments Adhesive Tape 02/04/2017 Duloxetine High 07/13/2023 Other Reaction(s): confusion Levofloxacin 09/01/2019 documented as of this encounter (statuses as of 03/01/2024) Medications Medication Sig Dispensed Refills Start Date [...] 137 MCG/SPRAY Nasal SolutionIndication s:Allergies Administer 1 [place] into each nostril 2 times a day [...] as of this encounter (statuses as of 03/01/2024) Active Problems Problem Noted Date Diagnosed Date [...] results. He will go to [facility] for abdominal x-ray today to rule out [...] Overview: Added automatically from request for surgery [id number] Last Assessment & Plan: S/p Watchman Current [...] in the Comments) Remote Patient Monitoring Vendor: [facility] Device(s): Connected Scale Self [...] as of this encounter (statuses as of 03/01/2024) Resolved Problems Problem Noted Date Diagnosed Date [...] as of this encounter (statuses as of 03/01/2024) Immunizations Name Administration Dates Next Due COVID-19 mRNA, LNP-s, No Pre serve, 2-Dose Series ([facility]) 08/20/2020,07/17/2020 COVID-19 mRNA, LNP-s, No Pre serve, 2-Dose Series ([employer]) 05/14/2021 COVID-19, LNP-s, No Preserve , Robbie-sucrose, Ages 12+ (Pfizer) 11/04/2021 COVID-19, MRNA-LNP, 23-24, P F, 30 MCG/0.3 mL, 12 YRS AND ABOVE, IM ([facility]) 11/29/2023,04/16/2023 Covid-19, Mrna, Lnp-s, Pf, B ivalent, [...] getting it scheduled Yasmine Leung, RN, BSN dispensary clerkValve Inserter [phone] option #1 * Telephone Encounter - Yadira [...] 10:00 AM EDT [facility] Visit [facility] 132 [facility] [place] [address] Myrtle Allen RN 132 [facility] [place] [address] 04/04/2024 8:00 AM EDT Office Visit Family Practice [address] [place] [address] 293 [facility] [place] [address] Benny Waite DO 293 [place] [address] 04/25/2024 1:40 PM EST Telemedicine [facility], [facility] 132 [facility] [place] [address] Yadira Omalley CRNP 132 [facility] [place] [address] Ines Castro, Community Health Mail Processing Associate [address] [place] [address] 07/12/2024 8:00 AM EST Office Visit Cardiology, [facility] 132 [facility] [place] [place] [address] Júnior Coppola PA-C [address] [place] [address] 08/14/2024 10:00 AM EST Office Visit Cardiology, [facility] 132 [facility] [place] [address] Casimiro Barraza MD [address] [place] [address] Health Maintenance Due Date Last Done Comments [...] this encounter Medical Devices Implanted Type Area Information Writer Device Identifier Shelf Expiration Date Model / Serial / Lot Device Watchman Flx 35mm - [id number] Implanted:Qty: 1 on 02/05/2022 by Diamond Teran IV, MD at [facility] [employer] : INTRV CARD [id number] 10/20/2024 [id number] 50 / / [id number] Cath Thermodilution 6fr - [id number] Implanted:Qty: 1 on 07/31/2022 by Franco Mcgregor MD at [facility] [employer] [id number] 04/30/2024 [id number] / / [id number] Mirtaclip G4 - [id number] Implanted:Qty: 1 on 11/16/2022 at [facility] [employer] 06/25/2023 [id number] / / [id number] Clip Delivery Sytem G4 Xtw - [id number] Implanted:Qty: 1 on 11/16/2022 at [facility] [employer] [id number] 08/10/2023 [id number] / / [id number] Clip Delivery Sytem G4 Xtw - [id number] Implanted:Qty: 1 on 11/16/2022 at [facility] [employer] [id number] 09/10/2023 [id number] / / [id number] documented as of this encounter Advance [...] and were consensually agreed upon. Care Teams Pharmaceutical Officer Relationship Specialty Start Date End Date Benny Waite DO [address] [facility] [place] [address] PCP - General Internal Medicine 11/25/23 documented as of this encounter
--- OUTSIDE RECORDS SUMMARY | 2024-03-26 09:53 | External Medical Summary | Summary of Care ---
Author Name Unknown Organization [facility] Address [address] [facility] [place] [address] Phone [phone] Care Team Providers Care Powerhouse Attendant Name Role Phone Benny Waite DO Primary Care Provider [phone] Reason for Visit * Reason Comments Follow Up Sleep Apnea * Evaluate & Treat - Unlimited Visits (Within 10 days (routine)) - Pending Review Specialty Diagnoses / Procedures Referred By Elaina hernandez Referred To Contact Sleep Medicine / Sleep Disorders Diagnoses DEX (obstructive sleep apnea) Yadira Omalley CRNP [address] [place] [address] Referral ID Status Reason Start Date Expiration Date Visits Requested Visits Authorized [id number] Pending Review Specialty Services Required 01/25/2024 2 2 Encounter Details Date Type Department Care Team (Late st Contact Info) Description 02/28/2024 9:00 AM EDT Office Visit Sleep Disorders Ctr [facility] [address] [place] [phone] Miroslava Suárez CRNP [address] [place] [address] Severe obstructive sleep apnea*; Chronic respiratory failure with hypoxia (HCC) Allergies Active Allergy Reactions Criticality Noted Date Comments Adhesive Tape 02/04/2017 Duloxetine High 07/13/2023 Other Reaction(s): confusion Levofloxacin 09/01/2019 documented as of this encounter (statuses as of 02/28/2024) Medications Medication Sig Dispensed Refills Start Date [...] 137 MCG/SPRAY Nasal SolutionIndication s:Allergies Administer 1 [place] into each nostril 2 times a day [...] as of this encounter (statuses as of 02/28/2024) Active Problems Problem Noted Date Diagnosed Date [...] night without results. He will go to [facility] for abdominal x-ray today to rule [...] MVR (mitral valve repair) 11/16/2022 Atherosclerosis of [place] co ronary artery without angina pectoris 08/11/2022 Severe tricuspid regurgitation 08/11/2022 Gout, arthropathy 07/20/2022 Presence of Watchman left atrial appendage closu re device 02/05/2022 Permanent atrial fibrillation 12/22/2021 Overview: Added automatically from request for surgery [id number] Last Assessment & Plan: S/p Watchman Current [...] in the Comments) Remote Patient Monitoring Vendor: [facility] Device(s): Connected Scale Self - Management Plan [...] as of this encounter (statuses as of 02/28/2024) Resolved Problems Problem Noted Date Diagnosed Date [...] as of this encounter (statuses as of 02/28/2024) Immunizations Name Administration Dates Next Due COVID-19 mRNA, LNP-s, No Pre serve, 2-Dose Series (Moderna) 08/20/2020,07/17/2020 COVID-19 mRNA, LNP-s, No Pre serve, 2-Dose Series ([employer]) 05/14/2021 COVID-19, LNP-s, No Preserve , Robbie-sucrose, Ages 12+ (Pfizer) 11/04/2021 COVID-19, MRNA-LNP, 23-24, P F, 30 MCG/0.3 mL, 12 YRS AND ABOVE, IM ([facility]) 11/29/2023,04/16/2023 Covid-19, Mrna, Lnp-s, Pf, B ivalent, 30 Mcg, IM, 12 yrs and above ([employer]) 03/17/2022 Pneumococcal Conjugate Vacc, 13 Valent [...] Sign Reading Time Taken Comments Blood Pressure 118/72 02/28/2024 8:57 AM EDT Pulse 88 02/28/2024 8:57 AM EDT Temperature 35.6 C (96 F) 02/28/2024 8:57 AM EDT Respiratory Rate 18 02/28/2024 8:57 AM EDT Oxygen Saturation 94% 02/28/2024 8:57 AM EDT Inhaled Oxygen Concentration - - Weight 98.9 kg (218 lb) 02/28/2024 8:57 AM EDT Height 175.3 cm (5' 9") 02/28/2024 8:57 AM EDT Body Mass Index 32.19 02/28/2024 8:57 AM EDT documented in this [...] as of this encounter Progress Notes * Miroslava Suárez CRNP - 02/28/2024 9:02 AM EDT [facility] Nikolas Silvestre is a 83 year old male seen today for 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 Split PSG 09/08/2020 (BMI 31.8): RDI 57 (128 hypopnea, 1 RERA), SpO2 claire 75% with 48 minutes <89% BPAP 04/19 to 24/01 with back up rate added for TECSA, some breathing consistent with [employer] Final BPAP 24/01, BUR 10 bpm - AHI 10.9 including REM, SpO2 claire 82% with 5.1 minutes <89% Last seen by Dr. Staton 03/06/2022, at which time Mr Silvestre reported returning his BPAP ST to the DME due to intolerance and cost. He tried using it while in his recliner but had dry mouth and drooling causing intolerance. He had not tried regular use of nasal corticosteroid, xylimelt, biotene or low profile FFM. He was referred to [facility] for HGNS considerateion. He was seen by [facility] 04/2022 and was referred to Nutrition and Weight Management with BMI 36. Interim History: Was recommended to return to clinic to discuss other "headgear" options. He reports having only tried a standard oronasal mask that sits on the bridge of the nose. A chin strap was tried with it but wasn't effective. Was discharged from the hospital on oxygen with desats to low 80's with ambulation, by his report. Wearing 2 LPM oxygen during sleep with water humidifier added to concentrator. Sleeps on his back with head elevated near 45 degrees. Wakes frequently to use the restroom or fromdry mouth. Has 55% humidification in his room. Sleeps from 8p until 7-8a. Unsure how many total hours of sleep due to how frequently he is waking. Wakes with headaches. Occasionally naps during the day. DME Provider: [facility] [place] Sleepiness Scale Question 02/28/2024 9:02 AM EDT - Filed by Madelyn Trevino LPN What is the chance you will doze off in the following situation? Sitting and reading High chance of dozing Watching TV High chance of dozing Sitting inactive in a public place, such as a theater or meeting High chance of dozing As a passenger in a car for an hour without a break High chance of dozing Lying down to rest in the afternoon when circumstances permit Slight chance of dozing When sitting and talking to someone No chance of dozing When sitting quietly after lunch without alcohol No chance of dozing In a car, while stopped for a few minutes in traffic No chance of dozing Score (range: 0 - 24) 13 Problem List: 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 CHF (congestive heart failure), NYHA class I, chronic, diastolic (HCC) Encounter for long-term (current) use of medications DEX (obstructive sleep apnea) Moderate to severe mitral regurgitation Lumbar degenerative disc disease Current 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 ([facility]) Permanent atrial fibrillation ([facility]) Presence of Watchman left atrial appendage closure device Gout, arthropathy Atherosclerosis of [place] coronary artery without angina pectoris Severe tricuspid regurgitation S/P MVR (mitral valve repair) Sacroiliitis, not elsewhere classified (HCC) Visual field loss, post-stroke Rectal bleeding History of CVA (cerebrovascular accident) Constipation HTN, goal below 150/90 Chronic respiratory failure with hypoxia ([facility]) Current Medications: Current Outpatient Medications Medication Sig Dispense Refill Amoxicillin-Pot Clavulanate 875-125 MG Oral Tablet Take 1 Tablet by mouth in the morning and 1 Tablet before bedtime. Do all this for 10 days. 20 Tablet 0 Doxycycline Hyclate 100 MG Oral Capsule Take 1 Capsule by mouth in the morning and 1 Capsule beforebedtime. Do all this for 10 days. 20 Capsule 0 Clopidogrel Bisulfate 75 MG Oral Tablet (Plavix) Take 1 Tablet by mouth in the morning. 100 Tablet 3 oxygen IN GAS Administer 2 L/min(Oxygen) into nostril continuous. Portable oxygen concentrator. Please remove his tanks Needs to keep the in home concentrator 1 Each 0 Pantoprazole Sodium 40 MG Oral Tablet Delayed Release (Protonix) Take 1 Tablet by mouth in the morning. 90 Tablet 3 QUEtiapine Fumarate 25 MG Oral Tablet (SEROquel) Take 0.5 Tablets by mouth at bedtime. 50 Tablet 3 Rosuvastatin Calcium 20 MG Oral Tablet (Crestor) Take 1 Tablet by mouth daily. 90 Tablet 3 Ketoconazole 2 % External Cream Apply 1 Application topically to affected area as needed for Itching. Apply to affected area Azelastine HCl 137 MCG/SPRAY Nasal Solution Administer 1 Lamoni into each nostril 2 times a day as needed for Allergies (allergy symptoms). 30 mL 3 Fluticasone Propionate 50 MCG/ACT Nasal Suspension (Flonase) Administer 2 Sprays into nostril in the morning and 2 Sprays before bedtime. 16 g 2 DIURETIC TITRATION PLAN If no improvement on day 3, contact heart failure managing provider. 1 Each0 Furosemide 40 MG Oral Tablet (Lasix) Take 1 Tablet by mouth in the morning. 100 Tablet 3 oxygen IN GAS Administer 2 L/min(Oxygen) into nostril continuous. 1 Each 0 Meclizine HCl 12.5 MG Oral Tablet (Antivert) Take 1 Tablet by mouth 2 times a day as needed for Dizziness. 60 Tablet 3 Metoprolol Succinate ER 25 MG Oral Tablet Extended Release 24 Hour (toPROL XL) Take 1 Tablet by mouth daily. 90 Tablet 3 Gabapentin 300 MG Oral Capsule (Neurontin) TAKE ONE CAPSULE BY MOUTH THREE TIMES A DAY 300 Capsule 3 Finasteride 5 MG Oral Tablet (Proscar) TAKE ONE TABLET BY MOUTH EVERY MORNING 100 Tablet 2 Allopurinol 300 MG Oral Tablet (Zyloprim) Take 1 Tablet by mouth in the morning. 100 Tablet 3 Docusate Sodium 100 MG Oral Capsule Take 1 Capsule by mouth in the morning and 1 Capsule before bedtime. Acetaminophen 500 MG Oral Tablet Take 2 Tablets by mouth in the morning and 2 Tablets before bedtime. TAKE 2 IN THE MORNING AND 2 IN THE EVENING. No current facility-administered medications for this visit. Physical Exam: BP 118/72 | Pulse 88 | Temp 35.6 C (96 F) (Tympanic) | Resp 18 | Ht 1.753 m (5' 9") | Wt 98.9 kg (218 lb) | SpO2 94% | BMI 32.19 kg/m | BSA 2.19 m Constitutional: Alert, oriented and in no acute distress Chest: Normal respiratory effort at rest Neuro: Fluent speech Psych: Appropriate mood and affect. Assessment & Plan: Severe obstructive sleep apnea, untreated initially diagnosed in 2018 Chronic hypoxemic respiratory failure, wearing 2 liter/minute supplemental oxygen nightly Medical history including CHF, CAD, CVA, HTN, MDD, BMI 32.2 Initially was tolerating CPAP 12 cmH2O in 2018 despite dry throat, later stopping it in 2019 due todry throat and difficulty exhaling. Didn't tolerate a chin strap. Did better on BPAP ST during PAP NAP with ResMed F20 interface. Mask was not tolerated at home causing irritation of nose and ears reported in 2020. A low profile mask was requested but never tried based on his recall. He later turned in his machine due to intolerance and concerns over the cost of the unit. Reviewed severe DEX diagnosis and impacts on health. Discussed the option of re qualify for PAP using lower pressures and low profile oronasal mask with OTC products for dry mouth (Biotene, Xylomelt)while optimizing humidification. Optimizing nasal breathing with saline or nasal corticosteroid spray previously recommended if retrial was pursued. Discussed that there are many different styles of chin straps so one may fit better than another. Reviewed HGNS as an option. If his insurance requires BMI <32, he would need to lose 9 lbs and arepeat PSG to make sure CSA is <25% (CSA wasn't present on last diagnostic PSG). He declined either option today. Declined referral to Weight Management. I asked him to contact us if he wishes to proceed. Continue supplemental oxygen per managing prescriber JUAN Lau [facility] I spent a total of 40-54 minutes (exact time 40 mins) on the date of service in preparation, delivery, and documentation of the care provided to Nikolas Silvestre excluding any time spent in the performance of separately billed services. documented in this encounter Nursing Notes * Madelyn Trevino LPN - 02/28/2024 9:04 AM EDT Chief Complaint Patient presents with Follow Up Sleep Apnea Cpap-has not used in 2+ yrs DME: [employer] Question 02/28/2024 8:55 AM EDT - Filed by Patient Do you have any of the following new or worsening symptoms? None of these Have you recently been in contact with someone who was sick? No / Unsure [place] Sleepiness Scale Question 02/28/2024 9:02 AM EDT - Filed by Madelyn Trevino LPN What is the chance you will doze off in the following situation? Sitting and reading High chance of dozing Watching TV High chance of dozing Sitting inactive in a public place, such as a theater or meeting High chance of dozing As a passenger in a car for an hour without a break High chance of dozing Lying down to rest in the afternoon when circumstances permit Slight chance of dozing When sitting and talking to someone No chance of dozing When sitting quietly after lunch without alcohol No chance of dozing In a car, while stopped for a few minutes in traffic No chance of dozing Score (range: 0 - 24) 13 Pt would like to discuss different treatment options for the DEX documented in this encounter Plan of Treatment Upcoming Encounters Date Type Department Care Team (Late st Contact Info) Description 03/01/2024 4:00 PM EDT [facility] Visit [facility] [address] [facility] [place] [address] Myrtle Allen RN [address] [facility] [place] [address] 04/04/2024 8:00 AM EDT Office Visit Family Practice [address] [place] [address] [address] [place] [address] Benny Waite, [address] [place] [address] 04/25/2024 1:40 PM EST Telemedicine [facility] [address] [facility] [place] [address] Yadira Omalley CRNP [address] [facility] [place] [address] Ines Castro, Community Health Hydrometeorology Teacher [address] [place] [address] 07/12/2024 8:00 AM EST Office Visit Cardiology, [facility] [address] [facility] [place] [address] Júnior Coppola, BRENNA [address] [place] [address] 08/14/2024 10:00 AM EST Office Visit Cardiology, [facility] [address] [place] [address] Casimiro Barraza MD [address] [place] [address] Scheduled Referrals Name Type Priority Associated Diagnoses Orde r Schedule SLEEP MEDICINE REFERRAL OP Referral Within 10 days (routine) DEX (obstructive sleep apnea) Ordered: 01/25/2024 Health Maintenance Due Date Last Done Comments [...] encounter Medical Devices Implanted Type Area Clinical Laboratory Assistant Device Identifier Shelf Expiration Date Model / Serial / Lot Device Watchman Flx 35mm - [id number] Implanted:Qty: 1 on 02/05/2022 by Diamond Teran IV, MD at [facility] Clean Filtration Technology : INTRV CARD [id number] 10/20/2024 [id number] / / [id number] Cath Thermodilution 6fr - [id number] Implanted:Qty: 1 on 07/31/2022 by Franco Mcgregor MD at [facility] [employer] [id number] 04/30/2024 [id number] / / [id number] Mirtaclip G4 - [id number] Implanted:Qty: 1 on 11/16/2022 at [facility] Its Time Compliance 06/25/2023 [id number] / / [id number] Clip Delivery Sytem G4 Xtw - [id number] Implanted:Qty: 1 on 11/16/2022 at [facility] Its Time Compliance [id number] 08/10/2023 [id number] / / [id number] Clip Delivery Sytem G4 Xtw - [id number] Implanted:Qty: 1 on 11/16/2022 at [facility] Its Time Compliance [id number] 09/10/2023 [id number] / / [id number] documented as of this encounter Visit Diagnoses Diagnosis Severe obstructive sleep apnea- Primary Obstructive sleep apnea (adult) (pediatric) Chronic respiratory failure with hypoxia (HCC) Chronic respiratory failure documented in this encounter Advance Directives * [...] and were consensually agreed upon. Care Teams Powerhouse Attendant Relationship Specialty Start Date End Date Benny Waite DO [address] [place] [address] PCP - General Internal Medicine 11/25/23 documented as of this encounter
--- OUTSIDE RECORDS SUMMARY | 2024-03-26 09:53 | External Medical Summary | Summary of Care ---
Author Name Unknown Organization [facility] Address [address] [facility] [place] [address] Phone [phone] Care Team Providers Care Acupressure Therapist Name Role Phone Benny Waite DO Primary Care Provider [phone] Reason for Visit * Reason Onset Date Comments Advice 03/02/2024 Encounter Details Date Type Department Care Team (Late st Contact Info) Description 03/02/2024 Telephone Interventional [facility] [address] [place] [id number] Amador rPasad DO [address] [place] [address] Advice [...] 137 MCG/SPRAY Nasal SolutionIndication s:Allergies Administer 1 [place] into each nostril 2 times a day [...] night without results. 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 Pt upset that he did not receive a callback from Pain Office yesterday. "Yesterday must have never happened" since no one called me back. Pt stated he wanted to speak with [facility] Pain. Pt wanted to know why did not call him yesterday. Advised pt, [facility] will not comment on what otheroffices do [...] Description 03/09/2024 12:30 PM EDT Imaging [facility] [address] [facility] [place] [address] 03/23/2024 10:00 AM EDT [facility] [address] [facility] [place] [address] Myrtle Allen, RN [address] [facility] [address] 04/04/2024 8:00 AM EDT Office Visit Family Practice [address] [place] [address] [address] [place] [address] Benny Waite DO [address] [place] [address] 04/25/2024 1:40 PM EST [facility]medicine [facility] [place] [address] [facility] [place] [address] Yadira Omalley CRNP [address] [facility] [place] [address] Ines Castro, Community Health Orthophotography Technician [facility][note 3] [place] [address] 07/12/2024 8:00 AM EST Office Visit Cardiology, [facility] [address] [place] [address] Júnior Coppola PA-C [address] [place] [address] 08/14/2024 10:00 AM EST Office Visit Cardiology, [facility] [address] [place] [address] Casimiro Barraza MD [address] [place] [address] Scheduled Orders Name Type Priority Associated Diagnoses [...] this encounter Medical Devices Implanted Type Area Boathouse Keeper Device Identifier Shelf Expiration Date Model / Serial / Lot Device Watchman Flx 35mm - [id number] Implanted:Qty: 1 on 02/05/2022 by Diamond Teran IV, MD at [facility] [employer] Software : INTRV CARD [id number] 10/20/2024 [id number] / / [id number] Cath Thermodilution 6fr - [id number] Implanted:Qty: 1 on 07/31/2022 by Franco Mcgregor MD at [facility] [employer] [id number] 04/30/2024 [id number] / / [id number] Mirtaclip G4 - [id number] Implanted:Qty: 1 on 11/16/2022 at [facility] [employer] 06/25/2023 [id number] / / [id number] Clip Delivery Sytem G4 Xtw - [id number] Implanted:Qty: 1 on 11/16/2022 at [facility] [employer] [id number] 08/10/2023 [id number] TW / / [id number] Clip Delivery Sytem G4 Xtw - [id number] Implanted:Qty: 1 on 11/16/2022 at [facility] [employer] [id number] 09/10/2023 [id number] / / [id number] documented as of this encounter Visit [...] and were consensually agreed upon. Care Teams Acupressure Therapist Relationship Specialty Start Date End Date Benny Waite DO [address] [place] [address] PCP - General Internal Medicine 11/25/23 documented as of this encounter
--- OUTSIDE RECORDS SUMMARY | 2024-03-26 09:53 | External Medical Summary | Summary of Care ---
Author Name Unknown Organization [facility] Address [address] [facility] [place] [address] Phone [phone] Care Team Providers Care Health Information Administrator Name Role Phone Benny Waite DO Primary Care Provider [phone] Encounter Details Date Type Department Care Team (Late st Contact Info) Description 03/01/2024 4:00 PM EDT [facility] [address] [place] [address] Myrtle Allen, RN [address] [place] [address] Allergies Active Allergy Reactions Criticality Noted Date [...] 137 MCG/SPRAY Nasal SolutionIndication s:Allergies Administer 1 [place] into each nostril 2 times a day [...] without results. He will go to [facility] for abdominal x-ray today to rule [...] Overview: Added automatically from request for surgery [id number] Last Assessment & Plan: S/p Watchman Current [...] mRNA, LNP-s, No Pre serve, 2-Dose Series (51 Auto) 05/14/2021 COVID-19, LNP-s, No Preserve , Robbie-sucrose, Ages 12+ (Pfizer) 11/04/2021 COVID-19, MRNA-LNP, 23-24, P F, 30 MCG/0.3 mL, 12 YRS AND ABOVE, IM ([employer]) 11/29/2023,04/16/2023 Covid-19, Mrna, Lnp-s, Pf, B ivalent, 30 Mcg, IM, 12 yrs and above (51 Auto) 03/17/2022 Pneumococcal Conjugate Vacc, 13 Valent (Prevnar) [...] Sign Reading Time Taken Comments Blood Pressure 112/62 03/01/2024 2:41 PM EDT Pulse 66 03/01/2024 2:41 PM EDT Temperature 36.3 C (97.3 F) 03/01/2024 2:41 PM ED T Respiratory Rate 18 03/01/2024 2:41 PM EDT Oxygen Saturation 95% 03/01/2024 2:41 PM EDT Inhaled Oxygen Concentration - - [...] Progress Notes * Myrtle Allen RN - 03/01/2024 2:38 PM EDT Images from the original note were not included. Current Concerns: Pt improved since started on abx for pneumonia Remains on course of doxycycline and augmentin - has several days left SOB has improved Has a mild cough with clear mucus Lungs are clear bilaterally today Overall, doing better today Does have a hard lump measuring 5cm x 6cm on left upper arm Does not recall any injury Has some mild pain with palpation No warmth or redness Does not move TE sent to [facility] provider Yadira Omalley for further advice. Physical Exam: Physical Exam Constitutional: General: He [...] time. Review of Systems: Review of Systems HENT: Negative. Eyes: Negative. Respiratory: Positive for cough (clear mucus) and shortness of breath (CHESTER - at baseline). Cardiovascular: Negative. Gastrointestinal: Negative. Genitourinary: Negative. Musculoskeletal: Positive for arthralgias. Skin: Negative. Neurological: Negative. Psychiatric/Behavioral: Negative. Care Plan Goal Progress: Orders Placed: No orders of the defined types were placed in this encounter. Medications Given: Care Gaps: Care Gaps Care gaps closed this contact:: Education;Medications;Plan of Care (POC) (03/01/241518) Type of education: Clinical/disease (03/01/241518) Type of medication care gap: Medication adherence (03/01/241518) Type of plan of care (POC) care gap: Creation of plan of care (POC) and/or Integrated Care Plan (ICP) (03/01/241518) documented in this encounter Plan of Treatment Upcoming Encounters Date Type Department Care Team (Late st Contact Info) Description 03/23/2024 10:00 AM EDT Home Visit [facility] at [facility] 132 [place] [address] Myrtle Allen RN 132 [facility] [place] [address] 04/04/2024 8:00 AM EDT Office Visit Family Practice [address] [facility] [place] 293 [facility], [place] [address] Benny Waite DO 293 [place] [address] 04/25/2024 1:40 PM EST Telemedicine [facility] 132 [facility] [place] [address] Yadira Omalley CRNP [address] [place] [address] Ines Castro, Community Health Patient Registration Rep [address] [place] [address] 07/12/2024 8:00 AM EST Office Visit Cardiology, [facility] 132 [place] [address] Júnior Coppola PA-C 132 [facility] [place] [address] 08/14/2024 10:00 AM EST Office Visit Cardiology, [facility] 132 [place] [address] Casimiro Barraza MD 132 [facility] [place] [address] Health Maintenance Due Date Last Done Comments [...] this encounter Medical Devices Implanted Type Area Analytical Data Miner Device Identifier Shelf Expiration Date Model / Serial / Lot Device Watchman Flx 35mm - [id number] Implanted:Qty: 1 on 02/05/2022 by Diamond Teran IV, [place] [facility] [employer] : INTRV CARD [id number] 10/20/2024 [id number] 50 / / [id number] Cath Thermodilution 6fr - [id number] Implanted:Qty: 1 on 07/31/2022 by Franco Mcgregor MD at [facility] [employer]INTO [id number] 04/30/2024 [id number] / / [id number] Mirtaclip G4 - [id number] Implanted:Qty: 1 on 11/16/2022 at [facility] [email or web address] 06/25/2023 [id number] / / [id number] Clip Delivery Sytem G4 Xtw - [id number] Implanted:Qty: 1 on 11/16/2022 at [facility] [employer] [id number] 08/10/2023 [id number] TW / / [id number] Clip Delivery Sytem G4 Xtw - [id number] Implanted:Qty: 1 on 11/16/2022 at [facility] [employer] [id number] 09/10/2023 [id number] / / [id number] documented as of this encounter Advance [...] were consensually agreed upon. Care Teams Health Information Administrator Relationship Specialty Start Date End Date Benny Waite DO 293 [place] [address] PCP - General Internal Medicine 11/25/23 documented as of this encounter
--- OUTSIDE RECORDS SUMMARY | 2024-03-26 09:53 | External Medical Summary | Summary of Care ---
Author Name Unknown Organization [facility] Address [address] [facility] [place] [address] Phone [phone] Care Team Providers Care Site Superintendent Name Role Phone Benny Waite DO Primary Care Provider Reason for Visit * Reason Onset Date Comments Advice 03/02/2024 Encounter Details Date Type Department Care Team (Late st Contact Info) Description 03/02/2024 Telephone Interventional Pain Center, [facility] [address] [place] [id number] Amador Christian DO [address] [place] [address] Advice [...] 137 MCG/SPRAY Nasal SolutionIndication s:Allergies Administer 1 [place] into each nostril 2 times a day [...] night without results. 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 02/05/2022 Permanent atrial fibrillation 12/22/2021 Overview: Added automatically from request for surgery [id number] Last Assessment & Plan: S/p Watchman Current [...] MCG/0.3 mL, 12 YRS AND ABOVE, IM ([employer]) 11/29/2023,04/16/2023 Covid-19, Mrna, Lnp-s, Pf, B ivalent, [...] Description 03/09/2024 12:30 PM EDT Imaging Radiology [facility] [address] [place] [address] 03/23/2024 10:00 AM EDT Home Visit [facility] [address] [place] [address] Myrtle Allen, RN 132 [place] [address] 04/04/2024 8:00 AM EDT Office Visit Family Practice [address] [place] [address] 293 [place] [address] Benny Waite, 293 [facility] [place] [address] 04/25/2024 1:40 PM EST Telemedicine [facility] 132 [place] [address] Yadira Omalley CRNP 132 [place] [address] Ines Castro, Community Health Intermediate School Teacher [address] [place] [address] 07/12/2024 8:00 AM EST Office Visit Cardiology, [facility] 132 [place] [address] Júnior Coppola PAClifC 132 [place] [address] 08/14/2024 10:00 AM EST Office Visit Cardiology, [facility] 132 [place] [address] Casimiro Barraza MD 132 [place] [address] Health Maintenance Due Date Last Done Comments [...] this encounter Medical Devices Implanted Type Area Baseball Hand Sewer Device Identifier Shelf Expiration Date Model / Serial / Lot Device Watchman Flx 35mm - [id number] Implanted:Qty: 1 on 02/05/2022 by Diamond Teran IV, MD at [facility] [place] [employer] : INTRV CARD [id number] 10/20/2024 [id number] 50 / / [id number] Cath Thermodilution 6fr - [id number] Implanted:Qty: 1 on 07/31/2022 by Franco Mcgregor MD at [facility] [place] [employer] [id number] 04/30/2024 [id number] / / [id number] Mirtaclip G4 - [id number] Implanted:Qty: 1 on 11/16/2022 at [facility] [place] [employer] 06/25/2023 [id number] / / [id number] Clip Delivery Sytem G4 Xtw - [id number] Implanted:Qty: 1 on 11/16/2022 at [facility] [place] [employer] [id number] 08/10/2023 [id number] TW / / [id number] Clip Delivery Sytem G4 Xtw - [id number] Implanted:Qty: 1 on 11/16/2022 at [facility] [place] [employer] [id number] 09/10/2023 [id number] TW / / [id number] documented as of this encounter Advance [...] and were consensually agreed upon. Care Teams Site Superintendent Relationship Specialty Start Date End Date Benny Waite DO 293 [facility] [place] [address] PCP - General Internal Medicine 11/25/23 documented as of this encounter
--- OUTSIDE RECORDS SUMMARY | 2024-03-26 09:53 | External Medical Summary | Summary of Care ---
Author Name Unknown Organization [facility] Address [address] [facility] [address] Phone [phone] Care Team Providers Care Retail Center Receptionist Name Role Phone Benny Waite DO Primary Care Provider [phone] Reason for Visit * Reason Onset Date Comments [facility]: Maintenance 03/01/2024 Encounter Details Date Type Department Care Team (Late st Contact Info) Description 03/01/2024 Telephone [facility] [place] [address] [place] [address] Agatha Reddy, AMBER [address] [facility] [address] [facility]: Maintenance Allergies [...] 137 MCG/SPRAY Nasal SolutionIndication s:Allergies Administer 1 [place] into each nostril 2 times a day [...] results. 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 Has appt with [facility] today ONOFRE vital documented in this encounter Plan of Treatment Upcoming Encounters Date Type Department Care Team (Late st Contact Info) Description 03/01/2024 4:00 PM EDT Home Visit [facility] [address] [place] [address] Myrtle Allen RN 132 [place] [address] 04/04/2024 8:00 AM EDT Office Visit Family Practice [address] [facility] [place] 293 [facility], [place] [address] Benny Waite, 293 [facility], [place] [address] 04/25/2024 1:40 PM EST Telemedicine [facility], [facility] [place] [address] Yadira Omalley CRNP [address] [facility] [place] [address] Ines Castro, Community Health Unemployment Claims Adjudicator [address] [place] [address] 07/12/2024 8:00 AM EST Office Visit Cardiology, [facility] 132 [facility] [place] [address] Júnior Coppola PA-C [facility] [place] [address] 08/14/2024 10:00 AM EST Office Visit Cardiology, [facility] 132 [facility] [place] [address] Casimiro Barraza MD 132 [facility] [address] Health Maintenance Due Date Last Done Comments [...] this encounter Medical Devices Implanted Type Area Refractory Products Supervisor Device Identifier Shelf Expiration Date Model / Serial / Lot Device Watchman Flx 35mm - [id number] Implanted:Qty: 1 on 02/05/2022 by Diamond Teran IV, [place] [facility] [place] [employer] : INTRV CARD [id number] 10/20/2024 [id number] 50 / / [id number] Cath Thermodilution 6fr - [id number] Implanted:Qty: 1 on 07/31/2022 by Franco Mcgregor MD at [facility] [place] [employer] [id number] 04/30/2024 [id number] / / [id number] Mirtaclip G4 - [id number] Implanted:Qty: 1 on 11/16/2022 at [facility] [place] [employer] 06/25/2023 [id number] / / [id number] Clip Delivery Sytem G4 Xtw - [id number] Implanted:Qty: 1 on 11/16/2022 [place] [facility] [place] [employer] [id number] 08/10/2023 [id number] TW / / [id number] Clip Delivery Sytem G4 Xtw - [id number] Implanted:Qty: 1 on 11/16/2022 at [facility] [place] [employer] [id number] 09/10/2023 [id number] TW / / [id number] documented as of this encounter Advance [...] were consensually agreed upon. Care Teams Retail Center Receptionist Relationship Specialty Start Date End Date Benny Waite DO 293 [facility] [place] [address] PCP - General Internal Medicine 11/25/23 documented as of this encounter
--- OUTSIDE RECORDS SUMMARY | 2024-03-26 09:53 | External Medical Summary | Summary of Care ---
Author Name Unknown Organization [facility] Address [address] [facility] [place] [address] Phone [phone] Care Team Providers Care Board Certified Behavioral Analyst Name Role Phone Benny Waite DO Primary Care Provider [phone] Reason for Visit * Reason Onset Date Comments [facility]: Acute 03/03/2024 Encounter Details Date Type Department Care Team (Late st Contact Info) Description 03/03/2024 Telephone [facility], [facility] [address] [facility] [place] [address] Micheline Medrano RN [address] [facility] [place] [id number] [facility]: Acute Allergies Active Allergy [...] 137 MCG/SPRAY Nasal SolutionIndication s:Allergies Administer 1 [place] into each nostril 2 times a [...] MVR (mitral valve repair) 11/16/2022 Atherosclerosis of [place] co ronary artery without angina pectoris 08/11/2022 Severe tricuspid regurgitation 08/11/2022 Gout, arthropathy 07/20/2022 Presence of Watchman left atrial appendage closu re device 02/05/2022 Permanent atrial fibrillation 12/22/2021 Overview: Added automatically from request for surgery [id number] Last Assessment & Plan: S/p Watchman Current [...] MCG/0.3 mL, 12 YRS AND ABOVE, IM ([facility]) 11/29/2023,04/16/2023 Covid-19, Mrna, Lnp-s, [...] pain. I'll cc both on this message. [facility] does not manage chronic back pain. Until she can reach them, she can maximize tylenol 1 g qid, use heating pad, topical analgesics like biofreeze. Make sure she is taking africa 800 mg tid as rx'd. * Telephone Encounter - Micheline Medrano RN - 03/03/2024 1:47 PM EDT [facility] communications writer Acute Call Date: 03/03/2024 Time: 1:47 PM Name: Nikolas Silvestre : 1940 Caller: Nikolas Relationship to self No chief complaint on file. HPI: Nikolas Silvestre is a 83 year old male that is calling [facility] to report that 6/10 [...] exacerbation symptoms: No Reinforcement Education: Routed to [facility] [place] for recommendations Treatment/Plan: Level of call: Acute Appointment scheduled for same day: No Provider Name: KAROL Treatment plan until appointment: take all medications as directed Call back instructions provided to patient. MERLINE Iverson Registered Nurse Navigator Triage [facility] documented in this encounter Plan of Treatment Upcoming Encounters Date Type Department Care Team (Late st Contact Info) Description 03/06/2024 9:30 AM EDT Scheduled Telephone [facility], [facility] 132 [facility] [place] [address] Coordinator, Fanny Thomas [facility] [place] [address] 03/09/2024 12:30 PM EDT Imaging Radiology [facility] 132 [facility] [place] [address] 03/23/2024 10:00 AM EDT Home Visit [facility], [facility] [place] [address] Myrtle Allen RN 132 [facility] [place] [address] 04/04/2024 8:00 AM EDT Office Visit Family Practice [address] [place] [address] 293 [facility] [place] [address] Benny Waite, 293 [place] [address] 04/25/2024 1:40 PM EST Telemedicine [facility], [facility] [address] [facility] [place] [address] Yadira Omalley CRNP 132 [facility] [place] [address] Ines Castro, Community Health Presser Hand [address] [place] [address] 07/12/2024 8:00 AM EST Office Visit Cardiology, [facility] 132 [facility] [place] [address] Júnior Coppola PA-C 132 [facility] [place] [address] 08/14/2024 10:00 AM EST Office Visit Cardiology, [facility] [address] [place] [address] Casimiro Barraza MD [address] [place] [address] Health Maintenance Due Date Last Done Comments [...] this encounter Medical Devices Implanted Type Area Boot Repairer Device Identifier Shelf Expiration Date Model / Serial / Lot Device Watchman Flx 35mm - [id number] Implanted:Qty: 1 on 02/05/2022 by Diamond Teran IV, [place] [facility] [place] [employer] [place] INTRV CARD [id number] 10/20/2024 [id number] 50 / / [id number] Cath Thermodilution 6fr - [id number] Implanted:Qty: 1 on 07/31/2022 by Franco Mcgregor MD [place] [facility] [place] [employer] [id number] 04/30/2024 [id number] / / [id number] Mirtaclip G4 - [id number] Implanted:Qty: 1 on 11/16/2022 [place] [facility] [place] [employer] 06/25/2023 [id number] / / [id number] Clip Delivery Sytem G4 Xtw - [id number] Implanted:Qty: 1 on 11/16/2022 [place] [facility] [place] [employer] [id number] 08/10/2023 [id number] TW / / [id number] Clip Delivery Sytem G4 Xtw - [id number] Implanted:Qty: 1 on 11/16/2022 [place] [facility] [place] [employer] [id number] 09/10/2023 [id number] TW / / [id number] documented as of this encounter Advance [...] and were consensually agreed upon. Care Teams Board Certified Behavioral Analyst Relationship Specialty Start Date End Date Benny Waite DO [address] [place] [address] PCP - General Internal Medicine 11/25/23 documented as of this encounter
--- OUTSIDE RECORDS SUMMARY | 2024-03-26 09:53 | External Medical Summary | Summary of Care ---
Author Name Unknown Organization [facility] Address [address] [facility] [place] [address] Phone [phone] Care Team Providers Care Balloon Pilot Name Role Phone Benny Waite DO Primary Care Provider Reason for Visit * Reason Onset Date Comments [facility]: Maintenance 02/28/2024 Encounter Details Date Type Department Care Team (Late st Contact Info) Description 02/28/2024 12:45 PM EDT Scheduled Telephone [facility], [facility] 132 [facility] [place] [address] Coordinator, [facility] 132 [facility] [place] [address] Allergies Active Allergy Reactions Criticality Noted Date [...] 137 MCG/SPRAY Nasal SolutionIndication s:Allergies Administer 1 [place] into each nostril 2 times a day [...] results. He will go to [facility] for abdominal x-ray today to [...] Overview: Added automatically from request for surgery [id number] Last Assessment & Plan: S/p Watchman Current [...] [facility] Device(s): Connected Scale Self - Management Plan [...] mRNA, LNP-s, No Pre serve, 2-Dose Series ([employer]) 05/14/2021 COVID-19, LNP-s, No Preserve , Robbie-sucrose, Ages 12+ (Pfizer) 11/04/2021 COVID-19, MRNA-LNP, 23-24, P F, 30 MCG/0.3 mL, 12 YRS AND ABOVE, IM ([facility]) 11/29/2023,04/16/2023 Covid-19, Mrna, Lnp-s, Pf, B ivalent, 30 Mcg, IM, 12 yrs and above (Rivalfox) 03/17/2022 Pneumococcal Conjugate Vacc, 13 Valent (Prevnar) [...] Telephone Encounter - Antonietta Carter RN - 02/28/2024 11:16 AM EDT Images from the original note were not included. Call rec'd from pt reporting he called earlier and spoke with triage nurse, was calling back as he thought he may have missed a call from [facility]. Pt reporting an increase in "dreaming" since being on abx (doxy and augmentin prescribed 02/23 for pna seen on 02/22 CXR). Pt reports this dreaming occurs while asleep, denies any occurrence during daytime/awake hours. Pt reports he has also been voiding more at night. Has been increasing fluid intake since on abx, has diagnosis of BPH. No other urinary symptoms. Pt reports he feels overall improved from last week. Denies SOB, CP, fever, n/v/d, or change in appetite. Pt checked vitals while transition coach: BP 105/69, HR 88 spO2 90% on room air at time of call. Pt reports he had been wearing his O2 regularly until 929 today, does not feel he needs it at thistime. Encouraged to wear to keep SpO2 > 90% Encouraged to call [facility] with new or worsening symptoms. Reminded of upcoming HV on 03/01 with RNCM. documented in this encounter Plan of Treatment Upcoming Encounters Date Type Department Care Team (Late st Contact Info) Description 03/01/2024 4:00 PM EDT [facility] Visit [facility] [place], [facility] 132 [facility] [place] [address] Myrtle Allen RN 132 [facility] [place] [address] 04/04/2024 8:00 AM EDT Office Visit Family Practice [address] [place] [address] 293 [place] [address] Benny Waite, 293 [place] [address] 04/25/2024 1:40 PM EST Telemedicine [facility], [facility] [place] [address] Yadira Omalley CRNP 132 [facility] [place] [address] Ines Castro, Community Health Highway Maintainer [facility] [place] [address] 07/12/2024 8:00 AM EST Office Visit Cardiology, [facility] 132 [facility] [place] [address] Júnior Coppola PA-C 132 [facility] [place] [address] 08/14/2024 10:00 AM EST Office Visit Cardiology, [facility] [address] [place] [address] Casimiro Barraza MD 132 [facility] [place] [address] Health Maintenance Due Date Last Done Comments [...] this encounter Medical Devices Implanted Type Area Guide Alpine Device Identifier Shelf Expiration Date Model / Serial / Lot Device Watchman Flx 35mm - [id number] Implanted:Qty: 1 on 02/05/2022 by Diamond Teran IV, [place] at [facility] [employer] : INTRV CARD [id number] 10/20/2024 [id number] / / [id number] Cath Thermodilution 6fr - [id number] Implanted:Qty: 1 on 07/31/2022 by Franco Mcgregor MD at [facility] [employer] [id number] 04/30/2024 [id number] / / [id number] Mirtaclip G4 - [id number] Implanted:Qty: 1 on 11/16/2022 at [facility] [employer] 06/25/2023 [id number] / / [id number] Clip Delivery Sytem G4 Xtw - [id number] Implanted:Qty: 1 on 11/16/2022 at [facility] [employer] [id number] 08/10/2023 [id number] TW / / [id number] Clip Delivery Sytem G4 Xtw - [id number] Implanted:Qty: 1 on 11/16/2022 at [facility] [employer] [id number] 09/10/2023 [id number] / / [id number] documented as of this encounter Advance [...] and were consensually agreed upon. Care Teams Balloon Pilot Relationship Specialty Start Date End Date Benny Waite DO [address] [facility] [place] [address] PCP - General Internal Medicine 11/25/23 documented as of this encounter
--- OUTSIDE RECORDS SUMMARY | 2024-03-26 09:54 | External Medical Summary | Summary of Care ---
Author Name Unknown Organization [facility] Address [address] [facility] [place] [address] Phone [phone] Care Team Providers Care Circuit Manager Name Role Phone Benny Waite DO Primary Care Provider [phone] Reason for Visit * Reason Onset Date Comments Cough 02/24/2024 Encounter Details Date Type Department Care Team (Late st Contact Info) Description 02/24/2024 9:15 AM EDT Scheduled Telephone [facility], [facility] [address] [facility] [place] [address] Coordinator, [facility] [address] [facility] [place] [address] Allergies Active Allergy Reactions Criticality Noted Date Comments Adhesive Tape 02/04/2017 Duloxetine High 07/13/2023 Other Reaction(s): confusion Levofloxacin 09/01/2019 documented as of this encounter (statuses as of 02/24/2024) Medications Medication Sig Dispensed Refills Start Date [...] 137 MCG/SPRAY Nasal SolutionIndication s:Allergies Administer 1 [place] into each nostril 2 times a [...] as of this encounter (statuses as of 02/24/2024) Active Problems Problem Noted Date Diagnosed Date [...] valve repair) 11/16/2022 Atherosclerosis of [place] ronary artery without angina pectoris 08/11/2022 Severe tricuspid regurgitation 08/11/2022 Gout, arthropathy 07/20/2022 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 02/05/2022 Permanent atrial fibrillation 12/22/2021 Overview: Added automatically from request for surgery [id number] Last Assessment & Plan: S/p Watchman Current [...] as of this encounter (statuses as of 02/24/2024) Resolved Problems Problem Noted Date Diagnosed Date [...] as of this encounter (statuses as of 02/24/2024) Immunizations Name Administration Dates Next Due COVID-19 mRNA, LNP-s, No Pre serve, 2-Dose Series (Moderna) 08/20/2020,07/17/2020 COVID-19 mRNA, LNP-s, No Pre serve, 2-Dose Series (Independa) 05/14/2021 COVID-19, LNP-s, No Preserve , Robbie-sucrose, Ages 12+ (Pfizer) 11/04/2021 COVID-19, MRNA-LNP, 23-24, P F, 30 MCG/0.3 mL, 12 YRS AND ABOVE, IM ([facility]) 11/29/2023,04/16/2023 Covid-19, Mrna, Lnp-s, Pf, B ivalent, 30 Mcg, IM, 12 yrs and above ([employer]) 03/17/2022 Pneumococcal Conjugate Vacc, 13 Valent (Prevnar) [...] encounter Miscellaneous Notes * Telephone Encounter - Tobi Vidales MD - 02/24/2024 9:53 AM EDT Recommendations: Given symptoms and positive checks x-ray will treat for pneumonia empirically with doxycycline and amox-clav. Plan Amoxicillin-Pot Clavulanate 875-125 MG Oral Tablet Doxycycline Hyclate 100 MG Oral Capsule E * Telephone Encounter - Micheline Medrano RN - 02/24/2024 9:05 AM EDT Images from the original note were not included. [facility] Telephonic Nurse Follow-Up Call [facility] Subprogram: Focused Care Management (3-9 months) Follow Up Call Type: Routine follow up call / Status Check Acute issue requiring follow-up call: Other: flu like sx Objective: 02/23/2024 2:45 PM 02/19/2024 4:22 PM 02/15/2024 7:55 AM 02/07/2024 12:56 PM 01/28/2024 10:50 AM VITALS ACROSS ENCOUNTERS BP 112/68 112/62 116/76 132/68 139/85 Pulse 60 68 76 64 55 Weight 98.9 kg 100.5 kg 99.6 kg BMI 32.19 kg/m2 32.72 kg/m2 32.43 kg/m2 Remote Patient Monitoring: [facility] [place] Scale: [facility] [place] Blood Pressure Cuff: [facility] [place] Pulse Ox: Oxygen Needs: NO CHANGE from baseline supplemental oxygen needs DME Needs: NO DME needs identified Medications: No medication or dose adjustments made during acute episode Subjective: Condition Status: No change in symptoms Current Concerns: Spoke with Nikolas this morning, reports feeling the same as yesterday, aware that PCR was negative forCOVID, denies any congestion, no fever/chills, some nasal congestion, no wheezing, no SOB, no chestcongestion/wheezing, has "raw" throat Compliant with all medications, wearing O2@2lpm VIcks vapor rub to chest Avoid dairy products Tylenol for headache/pain/fever Eat meals Saline nasal spray Sore throat, use salt water gargles Throat lozenges Take all medications as prescribed Stay hydrated with clear liquids. Good handwashing Use cool mist humidifier Disposition: [place] [facility] and[facility]or [facility] Care Team for further advice Future Visits Scheduled: Future Appointments-next 60 days Date/Time Provider Specialty Dept Phone 02/24/2024 9:15 AM Fanny Lawson [facility] [phone] 02/25/2024 11:00 AM Nurse Kishore Phone Call Interventional [facility] [phone] 02/28/2024 9:00 AM (Arrive by 8:45 AM) Miroslava Suárez CRNP Sleep Disorders [phone] 03/01/2024 4:00 PM Myrtle Allen RN [facility] [phone] 04/04/2024 8:00 AM (Arrive by 7:45 AM) Benny Waite, Family Medicine [phone] 04/25/2024 1:40 PM Ines Castro, Community Health Blacksmith Helper; Yadira Omalley CRNP [facility] [phone] 05/15/2024 1:20 PM (Arrive by 1:05 PM) George Ferrer PA-C Otolaryngology [phone] 07/12/2024 8:00 AM (Arrive by 7:45 AM) Júnior Coppola PA-C Cardiology [phone] 08/14/2024 10:00 AM (Arrive by 9:45 AM) Casimiro Barraza MD Cardiology [phone] Micheline Medrano, RN documented in this encounter Plan of Treatment Upcoming Encounters Date Type Department Care Team (Late st Contact Info) Description 02/25/2024 11:00 AM EDT Scheduled Telephone Interventional Pain Center, [facility] 132 [facility] [place] [address] [facility], Nurse Phone Call Interventional Pain [facility] [address] [place] [address] 02/28/2024 9:00 AM EDT Office Visit Sleep Disorders [facility] 132 [facility] [place] [phone] Miroslava Suárez CRNP [address] [place] [address] 03/01/2024 4:00 PM EDT [facility] Visit [facility], [facility] [address] [place] [address] Myrtle Allen RN [address] [place] [address] 04/04/2024 8:00 AM EDT Office Visit Family Practice [address] [place] [address] 293 [place] [address] Benny Waite, 293 [place] [address] 04/25/2024 1:40 PM EST Telemedicine [facility], [facility] [address] [facility] [place] [address] Yadira Omalley CRNP [address] [facility] [place] [address] Ines Castro, Community Health Blacksmith Helper [address] [place] [address] 05/15/2024 1:20 PM EST Office Visit [facility]olaryngology [facility] [place] [address] George Ferrer PA-C [address] [place] [address] 07/12/2024 8:00 AM EST Office Visit Cardiology, [facility] [place] [address] Júnior Coppola PA-C [address] [place] [address] 08/14/2024 10:00 AM EST Office Visit Cardiology, [facility] 132 [facility] [place] [address] Casimiro Barraza MD [address] [place] [address] Health Maintenance Due Date Last Done Comments [...] encounter Medical Devices Implanted Type Area Food Beverage Manager Device Identifier Shelf Expiration Date Model / Serial / Lot Device Watchman Flx 35mm - [id number] Implanted:Qty: 1 on 02/05/2022 by Diamond Teran IV, MD at [facility] [employer] : INTRV CARD [id number] 10/20/2024 [id number] 50 / / [id number] Cath Thermodilution 6fr - [id number] Implanted:Qty: 1 on 07/31/2022 by Franco Mcgregor MD at [facility] [employer] [id number] 04/30/2024 [id number] / / [id number] Mirtaclip G4 - [id number] Implanted:Qty: 1 on 11/16/2022 at [facility] [employer] 06/25/2023 [id number] / / [id number] Clip Delivery Sytem G4 Xtw - [id number] Implanted:Qty: 1 on 11/16/2022 at [facility] [employer] [id number] 08/10/2023 [id number] / / [id number] Clip Delivery Sytem G4 Xtw - [id number] Implanted:Qty: 1 on 11/16/2022 at [facility] [employer] [id number] 09/10/2023 [id number] / / [id number] documented as of this encounter Advance [...] and were consensually agreed upon. Care Teams Circuit Manager Relationship Specialty Start Date End Date Benny Waite DO 293 [place] [address] PCP - General Internal Medicine 11/25/23 documented as of this encounter
--- OUTSIDE RECORDS SUMMARY | 2024-03-26 09:54 | External Medical Summary | Summary of Care ---
Author Name Unknown Organization [facility] Address [address] [facility] [place] [address] Phone [phone] Care Team Providers Care Department Store Manager Name Role Phone Benny Waite DO Primary Care Provider [phone] Encounter Details Date Type Department Care Team (Late st Contact Info) Description 02/23/2024 2:00 PM EDT [facility] [address] [place] [address] Myrtle Allen, RN [address] [place] [address] Allergies Active Allergy Reactions Criticality Noted Date Comments Adhesive Tape 02/04/2017 Duloxetine High 07/13/2023 Other Reaction(s): confusion Levofloxacin 09/01/2019 documented as of this encounter (statuses as of 02/23/2024) Medications Medication Sig Dispensed Refills Start Date [...] 137 MCG/SPRAY Nasal SolutionIndication s:Allergies Administer 1 [place] into each nostril 2 times a day [...] as of this encounter (statuses as of 02/23/2024) Active Problems Problem Noted Date Diagnosed Date [...] He will go to 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 02/05/2022 Permanent atrial fibrillation 12/22/2021 Overview: Added automatically from request for surgery [id number] Last Assessment & Plan: S/p Watchman Current [...] as of this encounter (statuses as of 02/23/2024) Resolved Problems Problem Noted Date Diagnosed Date [...] as of this encounter (statuses as of 02/23/2024) Immunizations Name Administration Dates Next Due COVID-19 mRNA, LNP-s, No Pre serve, 2-Dose Series (Moderna) 08/20/2020,07/17/2020 COVID-19 mRNA, LNP-s, No Pre serve, 2-Dose Series ([employer]) 05/14/2021 COVID-19, LNP-s, No Preserve , Robbie-sucrose, Ages 12+ (Pfizer) 11/04/2021 COVID-19, MRNA-LNP, 23-24, P F, 30 MCG/0.3 mL, 12 YRS AND ABOVE, IM ([facility]) 11/29/2023,04/16/2023 Covid-19, Mrna, Lnp-s, Pf, B ivalent, [...] Reading Time Taken Comments Blood Pressure 112/68 02/23/2024 2:45 PM EDT Pulse 60 02/23/2024 2:45 PM EDT Temperature 35.9 C (96.6 F) 02/23/2024 2:45 PM ED T Respiratory Rate 18 02/23/2024 2:45 PM EDT Oxygen Saturation 96% 02/23/2024 2:45 PM EDT Inhaled Oxygen Concentration - - [...] Progress Notes * Myrtle Allen RN - 02/23/2024 2:43 PM EDT Current Concerns: Pt seen for f/u of increased SOB, episodes of not feeling well, dizzy/lightheaded Was seen on Wednesday and started DTP PCR collected Wednesday and was negative Chest xray obtained today - waiting on results Covid swab obtained this visit and taken to [facility] lab. Physical Exam: Physical Exam Constitutional: Appearance: He is ill-appearing. Cardiovascular: Rate and Rhythm: Normal rate and regular rhythm. Pulses: Normal pulses. Heart sounds: Normal heart sounds. Pulmonary: Breath sounds: Rales (left lobes) present. Abdominal: Palpations: Abdomen is soft. Skin: General: Skin is warm and dry. Coloration: Skin is pale. Neurological: Mental Status: He is alert and oriented to person, place, and time. Review of Systems: Review of Systems Constitutional: Positive for chills. HENT: Positive for congestion, sore throat and voice change (hoarse, comes and goes). Respiratory: Positive for cough (clear mucus) and shortness of breath (CHESTER - at baseline). Cardiovascular: Negative. Gastrointestinal: Negative. Neurological: Positive for dizziness and light-headedness. Care Plan Goal Progress: Orders Placed: No orders of the defined types were placed in this encounter. Medications Given: Care Gaps: documented in this encounter Plan of Treatment Upcoming Encounters Date Type Department Care Team (Late st Contact Info) Description 02/24/2024 9:15 AM EDT Scheduled Telephone [facility], [facility] 132 [facility] [place] [address] Coordinator, [facility] [place] [address] 02/25/2024 11:00 AM EDT Scheduled Telephone Interventional Pain Center, [facility] 132 [facility] [place] [address] Kishore Nurse Phone Call Interventional Pain [facility] 132 [facility] [place] [address] 02/28/2024 9:00 AM EDT Office Visit Sleep Disorders [facility] [address] [facility] [place] [phone] Miroslava Suárez CRNP 132 [facility] [place] [address] 03/01/2024 4:00 PM EDT [facility] [place], [facility] 132 [facility] [place] [address] Myrtle Allen RN 132 [facility] [place] [address] 04/04/2024 8:00 AM EDT Office Visit Family Practice [address] [place] [address] 293 [place] [address] Benny Waite DO 293 [place] [address] 04/25/2024 1:40 PM EST Telemedicine [facility], [facility] [address] [facility] [place] [address] Yadira Omalley CRNP [address] [place] [address] Ines Castro, Community Health Manager Title [address] [place] [address] 05/15/2024 1:20 PM EST Office Visit [facility]ol[facility]ology [facility] [place] [address] George Ferrer PA-C [address] [place] [address] 07/12/2024 8:00 AM EST Office Visit Cardiology, [facility] 132 [facility] [place] [address] Júnior Coppola PA-C [facility] [place] [address] 08/14/2024 10:00 AM EST Office Visit Cardiology, [facility] 132 [facility] [place] [address] Casimiro Barraza MD [facility] [place] [address] Health Maintenance Due Date Last Done Comments [...] this encounter Medical Devices Implanted Type Area Head Waiter/Waitress Banquet Device Identifier Shelf Expiration Date Model / Serial / Lot Device Watchman Flx 35mm - [id number] Implanted:Qty: 1 on 02/05/2022 by Diamond Teran IV, MD at [facility] [employer] : INTRV CARD [id number] 10/20/2024 [id number] 50 / / [id number] Cath Thermodilution 6fr - [id number] Implanted:Qty: 1 on 07/31/2022 by Franco Mcgregor MD at [facility] [employer] [id number] 04/30/2024 [id number] / / [id number] Mirtaclip G4 - [id number] Implanted:Qty: 1 on 11/16/2022 at [facility] [employer] 06/25/2023 [id number] / / [id number] Clip Delivery Sytem G4 Xtw - [id number] Implanted:Qty: 1 on 11/16/2022 at [facility] [employer] [id number] 08/10/2023 [id number] / / [id number] Clip Delivery Sytem G4 Xtw - [id number] Implanted:Qty: 1 on 11/16/2022 at [facility] [employer] [id number] 09/10/2023 [id number] / / [id number] documented as of this encounter Advance [...] and were consensually agreed upon. Care Teams Department Store Manager Relationship Specialty Start Date End Date Benny Waite DO 293 [place] [address] PCP - General Internal Medicine 11/25/23 documented as of this encounter
--- OUTSIDE RECORDS SUMMARY | 2024-03-26 09:54 | External Medical Summary | Summary of Care ---
Author Name Unknown Organization [facility] Address [address] [facility] [place] [address] Phone [phone] Care Team Providers Care Airplane Engineer Name Role Phone Benny Waite DO Primary Care Provider Reason for Visit * Reason Onset Date Comments Cough 02/24/2024 Encounter Details Date Type Department Care Team (Late st Contact Info) Description 02/24/2024 9:15 AM EDT Scheduled [facility]phone [facility], [facility] 132 [facility] [place] [address] Coordinator, [facility] [address] [facility] [place] [address] Allergies Active Allergy Reactions Criticality Noted Date [...] 137 MCG/SPRAY Nasal SolutionIndication s:Allergies Administer 1 [place] into each nostril 2 times a [...] night without results. He will go to [facility] for abdominal x-ray today to [...] Overview: Added automatically from request for surgery [id number] Last Assessment & Plan: S/p Watchman Current [...] LNP-s, No Pre serve, 2-Dose Series ([employer]) 05/14/2021 COVID-19, LNP-s, No Preserve , Robbie-sucrose, Ages 12+ (Pfizer) 11/04/2021 COVID-19, MRNA-LNP, 23-24, P F, 30 MCG/0.3 mL, 12 YRS AND ABOVE, IM ([employer]) 11/29/2023,04/16/2023 Covid-19, Mrna, Lnp-s, Pf, B ivalent, 30 Mcg, IM, 12 yrs and above ([employer]) 03/17/2022 Pneumococcal Conjugate Vacc, 13 Valent (Prevnar) [...] Encounter - Micheline Medrano RN - 02/24/2024 11:21 AM EDT Spoke with Nikolas, aware that 2 prescriptions were sent to his pharmacy and he will have a family member pick them up Nikolas will call [employer] his oxygen DME company regarding contract or payment. [phone]. Has [facility] home visit next week, will call [facility] with any change in condition MERLINE Iverson Registered Nurse Navigator Triage [facility] * Telephone Encounter - Tobi Vidales MD [...] [facility] Telephonic Nurse Follow-Up Call [facility] Subprogram: Focused Care Management (3-9 months) Follow [...] 32.72 kg/m2 32.43 kg/m2 Remote Patient Monitoring: [facility] Scale: [facility] Blood Pressure Cuff: [facility] Pulse Ox: Oxygen Needs: [...] Use cool mist humidifier Disposition: Routed to [facility] and/or [facility] Care Team for further advice Future Visits Scheduled: Future Appointments-next 60 days Date/Time Provider Specialty Dept Phone 02/24/2024 9:15 AM [facility] [phone] 02/25/2024 11:00 AM Nurse Kishore Phone Call Interventional [facility] [phone] 02/28/2024 9:00 AM (Arrive by 8:45 AM) Miroslava Suárez CRNP Sleep Disorders [phone] 03/01/2024 4:00 PM Myrtle Allen RN [facility] [phone] 04/04/2024 8:00 AM (Arrive by 7:45 AM) Benny Waite, Family Medicine [phone] 04/25/2024 1:40 PM Ines Castro, Community Health Early Childhood Education Worker; Yadira Omalley CRNP [facility] [phone] 05/15/2024 1:20 PM (Arrive by 1:05 PM) George Ferrer PA-C Otolaryngology [phone] 07/12/2024 8:00 AM (Arrive by 7:45 AM) Júnior Coppola PA-C Cardiology [phone] 08/14/2024 10:00 AM (Arrive by 9:45 AM) Casimiro Barraza MD Cardiology [phone] Micheline Medrano RN documented in this encounter Plan of Treatment Upcoming Encounters Date Type Department Care Team (Late st Contact Info) Description 02/25/2024 11:00 AM EDT Scheduled Telephone Interventional Pain Center, [facility] [address] [place] [address] Kishore Nurse Phone Call Interventional Pain [facility] [address] [place] [address] 02/28/2024 9:00 AM EDT Office Visit Sleep Disorders Ctr [facility] [address] [phone] Miroslava Suárez CRNP [address] [place] [address] 03/01/2024 4:00 PM EDT [facility], [facility] [address] [place] [address] Myrtle Allen RN [address] [place] [address] 04/04/2024 8:00 AM EDT Office Visit Family Practice [address] [place] [address] 293 [place] [address] Benny Waite, [address] [place] [address] 04/25/2024 1:40 PM EST Telemedicine [facility], [facility] 132 [place] [address] Yadira Omalley CRNP 132 [facility] [place] [address] Ines Castro, Community Health Early Childhood Education Worker [address] [place] [address] 05/15/2024 1:20 PM EST Office Visit Otolaryngology [facility] 132 [facility] [place] [address] George Ferrer PA-C 132 [facility] [place] [address] 07/12/2024 8:00 AM EST Office Visit Cardiology, [facility] 132 [facility] [place] [address] Júnior Coppola, PA-C 132 [facility] [place] [address] 08/14/2024 10:00 AM EST Office Visit Cardiology, [facility] 132 [facility] [place] [address] Casimiro Barraza MD [address] [place] [address] Health Maintenance Due Date Last Done Comments [...] this encounter Medical Devices Implanted Type Area Human Resource Advisor Device Identifier Shelf Expiration Date Model / Serial / Lot Device Watchman Flx 35mm - [id number] Implanted:Qty: 1 on 02/05/2022 by Diamond Teran IV, MD at [facility] [employer] : INTRV CARD [id number] 10/20/2024 [id number] 50 / / [id number] Cath Thermodilution 6fr - [id number] Implanted:Qty: 1 on 07/31/2022 by Franco Mcgregor MD at [facility] [employer] [id number] 04/30/2024 [id number] / / [id number] Mirtaclip G4 - [id number] Implanted:Qty: 1 on 11/16/2022 at [facility] [employer] 06/25/2023 [id number] / / [id number] Clip Delivery Sytem G4 Xtw - [id number] Implanted:Qty: 1 on 11/16/2022 at [facility] [employer] [id number] 08/10/2023 [id number] / / [id number] Clip Delivery Sytem G4 Xtw - [id number] Implanted:Qty: 1 on 11/16/2022 at [facility] [facility] [employer] [id number] 09/10/2023 [id number] / / [id number] documented as of this encounter Advance [...] and were consensually agreed upon. Care Teams Airplane Engineer Relationship Specialty Start Date End Date Benny Waite DO [address] [place] [address] PCP - General Internal Medicine 11/25/23 documented as of this encounter
--- OUTSIDE RECORDS SUMMARY | 2024-03-26 09:54 | External Medical Summary | Summary of Care ---
Author Name Unknown Organization [facility] Address [address] [facility] [address] Phone [phone] Care Team Providers Care Human Resources Professional Name Role Phone Benny Waite DO Primary Care Provider [phone] Reason for Visit * Reason Onset Date Comments [facility]: Maintenance 02/23/2024 Encounter Details Date Type Department Care Team (Late st Contact Info) Description 02/23/2024 Telephone [facility], [facility] 132 [facility] [place] [address] Tameka Pearl, EXTENSION COURSE COORDINATOR [address] [place] [address] [facility]: Maintenance Allergies [...] 137 MCG/SPRAY Nasal SolutionIndication s:Allergies Administer 1 [place] into each nostril 2 times a day [...] MVR (mitral valve repair) 11/16/2022 Atherosclerosis of [place] co ronary artery without angina pectoris 08/11/2022 Severe tricuspid regurgitation 08/11/2022 Gout, arthropathy 07/20/2022 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 Patient has HV today at 2 pm Will route for FYI documented in this encounter Plan of Treatment Upcoming Encounters Date Type Department Care Team (Late st Contact Info) Description 02/23/2024 2:00 PM EDT [facility] [place], [facility] [address] [place] [address] Myrtle Allen RN 132 [place] [address] 02/24/2024 9:15 AM EDT Scheduled Telephone [facility] [place], [facility] [address] [place] [address] Coordinator, [facility] [address] [place] [address] 02/25/2024 11:00 AM EDT Scheduled Telephone Interventional Pain Center, [facility] [address] [place] [address] Kishore Nurse Phone Call Interventional Pain [facility] 132 [place] [address] 02/28/2024 9:00 AM EDT Office Visit [facility] Disorders Ctr [facility] 132 [facility] [place] [phone] Miroslava Suárez CRNP [facility] [address] 03/01/2024 4:00 PM EDT [facility] Visit [facility], [facility] 132 [facility] [place] [address] Myrtle Allen RN 132 [facility] [place] [address] 04/04/2024 8:00 AM EDT Office Visit Family Practice [address] [place] [address] 293 [place] [address] Benny Waite DO 293 [place] [address] 04/25/2024 1:40 PM EST Telemedicine [facility], [facility] 132 [place] [address] Yadira Omalley CRNP 132 [facility] [place] [address] Ines Castro, Community Health Centrifuge Operator [address] [place] [address] 05/15/2024 1:20 PM EST Office Visit Otolaryngology [facility] 132 [facility] [place] [address] George Ferrer PA-C [facility] [place] [address] 07/12/2024 8:00 AM EST Office Visit Cardiology, [facility] 132 [facility] [place] [address] Júnior Coppola, PAClifC [address] [place] [address] 08/14/2024 10:00 AM EST Office Visit Cardiology, [facility] [address] [place] [address] Casimiro Barraza MD [address] [place] [address] Health Maintenance Due Date Last Done Comments [...] encounter Medical Devices Implanted Type Area Health Science Specialist Device Identifier Shelf Expiration Date Model / Serial / Lot Device Watchman Flx 35mm - [id number] Implanted:Qty: 1 on 02/05/2022 by Diamond Teran IV, MD at [facility] [employer] : INTRV CARD [id number] 10/20/2024 [id number] 50 / / [id number] Cath Thermodilution 6fr - [id number] Implanted:Qty: 1 on 07/31/2022 by Franco Mcgregor MD at [facility] [employer] [id number] 04/30/2024 [id number] / / [id number] Mirtaclip G4 - [id number] Implanted:Qty: 1 on 11/16/2022 at [facility] [employer] 06/25/2023 [id number] / / [id number] Clip Delivery Sytem G4 Xtw - [id number] Implanted:Qty: 1 on 11/16/2022 at [facility] [employer] [id number] 08/10/2023 [id number] TW / / [id number] Clip Delivery Sytem G4 Xtw - [id number] Implanted:Qty: 1 on 11/16/2022 at [facility] [employer] [id number] 09/10/2023 [id number] / / [id number] documented as of this encounter Advance [...] 2:00 PM 09/14/2012 5:59 PM This order re flects the patients wishes and were consensually agreed upon. Question Answer Comments Discussion of Advance Directives occurred with: Not Discussed * Full Code Date Activated Date Inactivated Comments 10/22/2011 4:13 PM 10/23/2011 5:41 PM This order r eflects the patients wishes and were consensually agreed upon. Care Teams Human Resources Professional Relationship Specialty Start Date End Date Benny Waite DO [address] [place] [address] PCP - General Internal Medicine 11/25/23 documented as of this encounter
--- OUTSIDE RECORDS SUMMARY | 2024-03-26 09:54 | External Medical Summary | Summary of Care ---
Author Name Unknown Organization [facility] Address [address] [place] [place] [place] [address] Phone [phone] Care Team Providers Care Tafe Lecturer Name Role Phone Benny Waite DO Primary Care Provider [phone] Reason for Visit * Reason Comments Outpatient Testing Encounter Details Date Type Department Care Team (Late st Contact Info) Description 02/23/2024 3:40 PM EDT Laboratory Laboratory, [address] [address] St, Specimen Drop Off [address] [address] Viral respiratory illness Allergies Active Allergy Reactions Criticality Noted Date [...] 137 MCG/SPRAY Nasal SolutionIndication s:Allergies Administer 1 [place] into each nostril 2 times a day [...] MVR (mitral valve repair) 11/16/2022 Atherosclerosis of [place] co 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 (Household - for ages [...] AM EDT Scheduled Telephone [facility], [facility] [address] [place] [address] Coordinator, [facility] 132 [place] [address] 02/25/2024 11:00 AM EDT Scheduled Telephone Interventional Pain Center, [facility] [address] [place] [address] [facility] Nurse Phone Call Interventional Pain [facility] 132 [place] [address] 02/28/2024 9:00 AM EDT Office Visit Sleep Disorders Ctr [facility] [address] [facility] [place] [address] Miroslava Suárez CRNP [address] [place] [address] 03/01/2024 4:00 PM EDT [facility] [place], [facility] [address] [place] [address] Myrtle Allen, RN 132 [place] [address] 04/04/2024 8:00 AM EDT Office Visit Family Practice [address] [place] [address] 293 [place] [address] Benny Waite, DO 293 [place] [address] 04/25/2024 1:40 PM EST Telemedicine [facility], [facility] 132 [place] [address] Yadira Omalley CRNP 132 [place] [address] Ines Castro, Community Health [employer] [address] [place] [address] 05/15/2024 1:20 PM EST Office Visit Otolaryngology [facility] [place] [address] George Ferrer PA-C 132 [place] [address] 07/12/2024 8:00 AM EST Office Visit Cardiology, [facility] 132 [facility] [place] [address] Júnior Coppola PA-C 132 [facility] [address] 08/14/2024 10:00 AM EST Office Visit Cardiology, [facility] 132 [facility] [place] [address] Casimiro Barraza MD 132 [facility] [address] Pending Results Name Type Priority Associated Diagnoses Date /Time SARS-COV-2 (COVID-19), NAAT Lab Routine Viral respiratory illness 02/23/2024 3:33 PM EDT Health Maintenance Due Date Last Done Comments [...] Medical Devices Implanted Type Area Director Of Vocational Training Device Identifier Shelf Expiration Date Model / Serial / Lot Device Watchman Flx 35mm - [id number] Implanted:Qty: 1 on 02/05/2022 by Diamond Teran IV, MD at [facility] [employer] : INTRV CARD [id number] 10/20/2024 [id number] 50 / / [id number] Cath Thermodilution 6fr - [id number] Implanted:Qty: 1 on 07/31/2022 by Franco Mcgregor MD at [facility] [employer] [id number] 04/30/2024 [id number] / / [id number] Mirtaclip G4 - [id number] Implanted:Qty: 1 on 11/16/2022 at [facility] [employer] 06/25/2023 [id number] / / [id number] Clip Delivery Sytem G4 Xtw - [id number] Implanted:Qty: 1 on 11/16/2022 at [facility] [employer] [id number] 08/10/2023 [id number] TW / / [id number] Clip Delivery Sytem G4 Xtw - [id number] Implanted:Qty: 1 on 11/16/2022 at [facility] [employer] [id number] 09/10/2023 [id number] / / [id number] documented as of this encounter Visit Diagnoses Diagnosis Viral respiratory illness Unspecified viral infection, in conditions classified elsewhere and of unspecified site documented in this encounter Advance Directives * [...] and were consensually agreed upon. Care Teams Tafe Lecturer Relationship Specialty Start Date End Date Benny Wiate DO 293 [place] [address] PCP - General Internal Medicine 11/25/23 documented as of this encounter
--- OUTSIDE RECORDS SUMMARY | 2024-03-26 09:54 | External Medical Summary ---
Author Name Unknown Address Unknown Organization K01:[facility] [place] [address] [facility] [address] [facility] [address] Laboratory Report Ordering Provider Test Date Status SULAIMAN CASTILLO 02/23/2024 15:33:44 Final For PreSurgery, Procedure, O B Admit, or Surveillance testing - Nasal Turbinate source preferred.

For Symptomatic testing - Nasopharyngeal source preferred.
null Observation Date Value Abnormality Reference (Units ) Status SARS Coronavirus 2 02/23/2024 15:33:44 Negative N egative Final 2018 Novel Coronavirus not d etected.

This express test was developed and its performance characteristics determined by [employer]. It has not been cleared or approved [...] was developed and performance characteristics determined by [employer]. The validation of alternate specimen types has not been cleared or approved by the U.S. Food and Drug Administration (FDA). It has been determined that such clearance is not necessary. Performing Location [facility] [place] - [address] [place] [address]
--- OUTSIDE RECORDS SUMMARY | 2024-03-26 09:54 | External Medical Summary | Summary of Care ---
Author Name Unknown Organization [facility] [address] [facility] [address] Phone [phone] Care Team Providers Care Clay Washer Name Role Phone Benny Waite DO Primary Care Provider [phone] Encounter Details Date Type Department Care Team (Late st Contact Info) Description 02/25/2024 Telephone [facility], [facility] [address] [facility] [place] [address] Ines Coates RN [address] [place] [address] Allergies Active Allergy Reactions Criticality Noted Date Comments Adhesive Tape 02/04/2017 Duloxetine High 07/13/2023 Other Reaction(s): confusion Levofloxacin 09/01/2019 documented as of this encounter (statuses as of 02/25/2024) Medications Medication Sig Dispensed Refills Start Date [...] 137 MCG/SPRAY Nasal SolutionIndication s:Allergies Administer 1 [place] into each nostril 2 times a day [...] as of this encounter (statuses as of 02/25/2024) Active Problems Problem Noted Date Diagnosed Date [...] night without results. He will go to [facility] for abdominal x-ray today to rule out [...] Overview: Added automatically from request for surgery [id number] Last Assessment & Plan: S/p Watchman Current [...] in the Comments) Remote Patient Monitoring Vendor: [facility] Device(s): Connected Scale Self - Management Plan [...] as of this encounter (statuses as of 02/25/2024) Resolved Problems Problem Noted Date Diagnosed Date [...] as of this encounter (statuses as of 02/25/2024) Immunizations Name Administration Dates Next Due COVID-19 mRNA, LNP-s, No Pre serve, 2-Dose Series (Moderna) 08/20/2020,07/17/2020 COVID-19 mRNA, LNP-s, No Pre serve, 2-Dose Series ([employer]) 05/14/2021 COVID-19, LNP-s, No Preserve , Robbie-sucrose, Ages 12+ (Pfizer) 11/04/2021 COVID-19, MRNA-LNP, 23-24, P F, 30 MCG/0.3 mL, 12 YRS AND ABOVE, IM (Drill Cycle-Comirnat) 11/29/2023,04/16/2023 Covid-19, Mrna, Lnp-s, Pf, B ivalent, [...] Telephone Encounter - Ines Coates RN - 02/25/2024 11:59 AM EDT Call received from patient asking on update from [employer] phone call last week. Pt informed that as far as orders, notes, that DME supplier stated they had all required documentation from [facility]. Ptstates that his copay for the oxygen is $32.78 per month and he can't afford that. Recommended thathe call them and see if they have a financial assistance program or any discounts that patient would be eligible for. States that his daughter is trying to get through to them, but hasn't had any luck. Recommended they keep trying to reach DME supplier directly with billing concerns. documented in this encounter Plan of Treatment Upcoming Encounters Date Type Department Care Team (Late st Contact Info) Description 02/28/2024 9:00 AM EDT Office Visit Sleep Disorders Ctr [facility] [address] [place] [address] Miroslava Suárez CRNP 132 [place] [address] 03/01/2024 4:00 PM EDT [facility] Visit [facility] 132 [place] [address] Myrtle Allen RN 132 [place] [address] 04/04/2024 8:00 AM EDT Office Visit Family Practice [address] [place] [address] 293 [place] [address] Benny Waite, [address] [place] [address] 04/25/2024 1:40 PM EST Telemedicine [facility], [facility] [address] [facility] [place] [address] Yadira Omalley CRNP 132 [place] [address] Ines Castro, Community Health Supervisor [place] [address] [place] [address] 05/15/2024 1:30 PM EST Office Visit Otolaryngology [facility] 132 [place] [address] George Ferrer PA-C 132 [place] [address] 07/12/2024 8:00 AM EST Office Visit Cardiology, [facility] 132 [facility] [address] Júnior Coppola, PAClifC 132 [place] [address] 08/14/2024 10:00 AM EST Office Visit Cardiology, [facility] 132 [facility] [address] Casimiro Barraza MD [address] [facility] [address] [place] [address] Health Maintenance Due Date Last Done Comments [...] this encounter Medical Devices Implanted Type Area Care Provider Device Identifier Shelf Expiration Date Model / Serial / Lot Device Watchman Flx 35mm - [id number] Implanted:Qty: 1 on 02/05/2022 by Diamond Teran IV, MD at [facility] [employer] : INTRV CARD [id number] 10/20/2024 [id number] 50 / / [id number] Cath Thermodilution 6fr - [id number] Implanted:Qty: 1 on 07/31/2022 by Franco Mcgregor MD at [facility] [employer] [id number] 04/30/2024 [id number] / / [id number] Mirtaclip G4 - [id number] Implanted:Qty: 1 on 11/16/2022 at [facility] [employer] 06/25/2023 [id number] / / [id number] Clip Delivery Sytem G4 Xtw - [id number] Implanted:Qty: 1 on 11/16/2022 at [facility] [employer] [id number] 08/10/2023 [id number] / / [id number] Clip Delivery Sytem G4 Xtw - [id number] Implanted:Qty: 1 on 11/16/2022 at [facility] [employer] [id number] 09/10/2023 [id number] / / [id number] documented as of this encounter Advance [...] and were consensually agreed upon. Care Teams Clay Washer Relationship Specialty Start Date End Date Benny Waite DO [address] [place] [address] PCP - General Internal Medicine 11/25/23 documented as of this encounter
--- OUTSIDE RECORDS SUMMARY | 2024-03-26 09:54 | External Medical Summary | Summary of Care ---
Author Name Unknown Organization [facility] Address [address] [facility] [place] [address] Phone [phone] Care Team Providers Care Cattle Trader Name Role Phone Benny Waite DO Primary Care Provider [phone] Reason for Visit * Reason Onset Date Comments [facility]: Maintenance 02/22/2024 Encounter Details Date Type Department Care Team (Latest Contact Info) Description 02/22/2024 9:30 AM EDT Scheduled Telephone [facility], [facility] 132 [facility] [place] [address] Coordinator, [facility] 132 [facility] [place] [address] Viral respiratory illness* Allergies Active Allergy Reactions Criticality Noted Date Comments Adhesive Tape 02/04/2017 Duloxetine High 07/13/2023 Other Reaction(s): confusion Levofloxacin 09/01/2019 documented as of this encounter (statuses as of 02/22/2024) Medications Medication Sig Dispensed Refills Start Date [...] 137 MCG/SPRAY Nasal SolutionIndication s:Allergies Administer 1 [place] into each nostril 2 times a day [...] as of this encounter (statuses as of 02/22/2024) Active Problems Problem Noted Date Diagnosed Date [...] night without results. 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 02/05/2022 Permanent atrial fibrillation 12/22/2021 Overview: Added automatically from request for surgery [id number] Last Assessment & Plan: S/p Watchman Current [...] as of this encounter (statuses as of 02/22/2024) Resolved Problems Problem Noted Date Diagnosed Date [...] as of this encounter (statuses as of 02/22/2024) Immunizations Name Administration Dates Next Due COVID-19 [...] Telephone Encounter - Micheline Medrano RN - 02/22/2024 2:46 PM EDT Patient scheduled with Myrtle Allen tomorrow per [facility], CXR called into and faxed to [facility] [place] Claim # [id number] Several attempt to call patient to make him aware but unsuccessful as phone goes from ringing to busy tone each time MERLINE Iverson Registered Nurse Navigator Triage [facility] * Telephone Encounter - Arturo Saenz DO - 02/22/2024 1:54 PM EDT [facility] Subprogram: Focused Care Management (3-9 months) Recommendations: I would like to obtain a chest x-ray to rule out pneumonia as it can present in atypical ways in this population. IF we have an available RN, could we repeat a COVID swab - just to assure there wasn't a change from the other day. Orders: Plan SARS-CoV-2 (COVID-19), NAAT : XR Chest 2 Views To Do: Please see below for follow up items to be completed and correspondence: ONOFRE to Nikolas's Care Team journeyman millwright Pool please work on the following: contact the caller with advice and orders as above call in and fax orders to the appropriate agency/company Arturo Saenz DO Remote Medical Command - [facility] 02/22/2024 Scheduled appointments in the next 60 days: Future Appointments-next 60 days Date/Time Provider Specialty Dept Phone 02/23/2024 11:30 AM Coordinator, Fanny Thomas [facility] [phone] 02/25/2024 11:00 AM Nurse Kishore Phone Call [facility] [phone] 02/28/2024 9:00 AM (Arrive by 8:45 AM) Miroslava Suárez CRNP Sleep Disorders [phone] 03/01/2024 4:00 PM Myrtle Allen RN [facility] [phone] 04/04/2024 8:00 AM (Arrive by 7:45 AM) Benny Waite DO Family Medicine [phone] 04/25/2024 1:40 PM Ines Castro, Community Health Collarette Separator; Yadira Omalley CRNP [facility] [phone] 05/15/2024 1:20 PM (Arrive by 1:05 PM) George Ferrer PA-C Otolaryngology [phone] 07/12/2024 8:00 AM (Arrive by 7:45 AM) Júnior Coppola PA-C Cardiology [phone] 08/14/2024 10:00 AM (Arrive by 9:45 AM) Casimiro Barraza MD Cardiology [phone] * Telephone Encounter - Micheline Medrano RN - 02/22/2024 12:02 PM EDT Images from the original note were not included. [facility] Telephonic Nurse Follow-Up Call [facility] Subprogram: Focused Care Management (3-9 months) Follow Up Call Type: Routine follow up call / Status Check Acute issue requiring follow-up call: Other: Cold sx Objective: 02/19/2024 4:22 PM 02/15/2024 7:55 AM 02/07/2024 12:56 PM 01/28/2024 10:50 AM 01/28/2024 10:06 AM VITALS ACROSS ENCOUNTERS BP 112/62 116/76 132/68 139/85 122/77 Pulse 68 76 64 55 57 Weight 98.9 kg 100.5 kg 99.6 kg BMI 32.19 kg/m2 32.72 kg/m2 32.43 kg/m2 Remote Patient Monitoring: [facility] Scale: [facility] Blood Pressure Cuff: [facility] Pulse Ox: BP while on phone with patient was 116/75-85 Oxygen Needs: NO CHANGE from baseline supplemental oxygen needs DME Needs: NO DME needs identified Medications: No medication or dose adjustments made during acute episode Subjective: Condition Status: Worsening of symptoms Current Concerns: Spoke with Nikolas, reports feeling worst today than yesterday, has headache, is dizzy and light headedat times, pulse ox 89-90 on RA, wears O2 prn, has CHESTER, no fever, chills, +sore throat, weighed himself this morning after breakfast, c/o decreased energy, no cough/congestion, no wheezing, tylenol not working for headache. LBM was today, is urinating wnls, appetite is good PCR done at [facility] was negative Reported some pin point drops of blood on pillow case last night, states he had a left ear infection in the past, nothing bothering him now Completed his DTP on Wednesday Was seen by acute nurse on 02/19/24 Encouraged patient to stay hydrated, take all medications as directed, use saline nasal spray prn, tylenol for headache, go slow when changing positions to avoid falls. Disposition: Routed to [facility] and/or [facility] Care [facility] for further advice and Follow up call scheduled for tomorrow with MANAGER CONTENT Balance Screwhead Polisher Future Visits Scheduled: Future Appointments-next 60 days Date/Time Provider Specialty Dept Phone 02/25/2024 11:00 AM Nurse Kishore Phone Call [facility] [phone] 02/28/2024 9:00 AM (Arrive by 8:45 AM) Miroslava Suárez CRNP Sleep Disorders [phone] 03/01/2024 4:00 PM Myrtle Allen RN [facility] at [facility] [phone] 04/04/2024 8:00 AM (Arrive by 7:45 AM) Benny Waite DO Family Medicine [phone] 04/25/2024 1:40 PM Ines Castro, Community Health Collarette Separator; Yadira Omalley CRNP [facility] [phone] 05/15/2024 1:20 PM (Arrive by 1:05 PM) George Ferrer PA-C Otolaryngology [phone] 07/12/2024 8:00 AM (Arrive by 7:45 AM) Júnior Coppola PA-C Cardiology [phone] 08/14/2024 10:00 AM (Arrive by 9:45 AM) Casimiro Barraza MD Cardiology [phone] Micheline Medrano RN documented in this encounter Plan of Treatment Upcoming Encounters Date Type Department Care Team (Late st Contact Info) Description 02/23/2024 11:30 AM EDT Scheduled Telephone [facility], [facility] [address] [place] [address] Coordinator, [facility] [address] [place] [address] 02/23/2024 2:00 PM EDT Home Visit [facility], [facility] [address] [place] [address] Myrtle Allen RN [address] [place] [address] 02/25/2024 11:00 AM EDT Scheduled Telephone Interventional Pain Center, [facility] [address] [address] [facility], Nurse Phone Call Interventional Pain [facility] [address] [address] 02/28/2024 9:00 AM EDT Office Visit Sleep Disorders Ctr [facility] [address] [id number] Miroslava Suárez CRNP 132 [place] [address] 03/01/2024 4:00 PM EDT [facility], [facility] [address] [facility] [place] [place] [address] Myrtle Allen RN 132 [place] [address] 04/04/2024 8:00 AM EDT Office Visit Family Practice [address] [place] [address] 293 [place] [address] Benny Waite, 293 [facility] [address] 04/25/2024 1:40 PM EST Telemedicine [facility], [facility] 132 [facility] [place] [address] Yadira Omalley CRNP 132 [place] [address] Ines Castro, Community Health Collarette Separator [address] [place] [address] 05/15/2024 1:20 PM EST Office Visit Otolaryngology [facility] 132 [facility] [place] [address] George Ferrer PA-C 132 [place] [address] 07/12/2024 8:00 AM EST Office Visit Cardiology, [facility] 132 [facility] [place] [address] Júnior Coppola PAClifC 132 [place] [address] 08/14/2024 10:00 AM EST Office Visit Cardiology, [facility] [address] [place] [address] Casimiro Barraza MD [address] [place] [address] Scheduled Orders Name Type Priority Associated Diagnoses Orde r Schedule XR CHEST 2 VIEWS Medical Imaging Routine Viral respiratory illness Ordered: 02/22/2024 SARS-COV-2 (COVID-19), NAAT Lab Routine Viral respiratory illness Expected: 02/22/2024, Expires: 03/23/2025 Health Maintenance Due Date Last Done Comments [...] this encounter Medical Devices Implanted Type Area Bending Roll Hand Device Identifier Shelf Expiration Date Model / Serial / Lot Device Watchman Flx 35mm - [id number] Implanted:Qty: 1 on 02/05/2022 by Diamond Teran IV, MD at [facility] [employer] : INTRV CARD [id number] 10/20/2024 [id number] 50 / / [id number] Cath Thermodilution 6fr - [id number] Implanted:Qty: 1 on 07/31/2022 by Franco Mcgregor MD at [facility] [employer] [id number] 04/30/2024 [id number] / / [id number] Mirtaclip G4 - [id number] Implanted:Qty: 1 on 11/16/2022 at [facility] [employer] 06/25/2023 [id number] / / [id number] Clip Delivery Sytem G4 Xtw - [id number] Implanted:Qty: 1 on 11/16/2022 at [facility] [employer] [id number] 08/10/2023 [id number] / / [id number] Clip Delivery Sytem G4 Xtw - [id number] Implanted:Qty: 1 on 11/16/2022 at [facility] [employer] [id number] 09/10/2023 [id number] TW / / [id number] documented as of this encounter Visit Diagnoses Diagnosis Viral respiratory illness- Primary Unspecified viral infection, in conditions classified elsewhere [...] and were consensually agreed upon. Care Teams Cattle Trader Relationship Specialty Start Date End Date Benny Waite DO [address] [place] [address] PCP - General Internal Medicine 11/25/23 documented as of this encounter
--- OUTSIDE RECORDS SUMMARY | 2024-03-26 09:54 | External Medical Summary | Summary of Care ---
Author Name Unknown Organization [facility] Address [address] [facility] [place] [address] Phone [phone] Care Team Providers Care Superintendent Plant Protection Name Role Phone Benny Waite DO Primary Care Provider Reason for Visit * Reason Onset Date Comments Follow Up 02/25/2024 Encounter Details Date Type Department Care Team (Late st Contact Info) Description 02/25/2024 11:00 AM EDT Scheduled Telephone Interventional Pain Center, [facility] [address] [place] [address] Kishore Nurse Phone Call Interventional Pain [facility] [address] [place] [address] Arrived Allergies Active Allergy Reactions Criticality Noted [...] 137 MCG/SPRAY Nasal SolutionIndication s:Allergies Administer 1 [place] into each nostril 2 times a day [...] night without results. 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) 11/29/2023,04/16/2023 Covid-19, Mrna, Lnp-s, Pf, B ivalent, 30 Mcg, IM, 12 yrs and above (Xplornet) 03/17/2022 Pneumococcal Conjugate Vacc, 13 Valent (Prevnar) [...] Telephone Encounter - Ale Valentine LPN - 02/25/2024 9:58 AM EDT Patient reports 65% improvement up until 3wks ago after L5/S1 interlaminar epidural steroid injection on the left side. Currently has back pain but is also having kidney issues and on meds-advised to call when kidney issues are cleared up if he is still having back pain. documented in this encounter Plan of Treatment Upcoming Encounters Date Type Department Care Team (Late st Contact Info) Description 02/28/2024 9:00 AM EDT Office Visit Sleep Disorders Ctr [facility] 132 [address] [phone] Miroslava Suárez CRNP 132 [place] [address] 03/01/2024 4:00 PM EDT Home Visit [facility] [address] [address] Myrtle Allen RN [address] [place] [address] 04/04/2024 8:00 AM EDT Office Visit Family Practice [address] [place] [address] 293 [place] [address] Benny Waite DO 293 [facility] [address] 04/25/2024 1:40 PM EST Telemedicine [facility], [facility] 132 [facility] [place] [address] Yadira Omalley CRNP [address] [place] [address] Ines Castro, Community Health Butting Saw Operator [address] [place] [address] 05/15/2024 1:30 PM EST Office Visit Otolaryngology [facility] 132 [facility] [place] [address] George Ferrer PA-C [address] [place] [address] 07/12/2024 8:00 AM EST Office Visit Cardiology, [facility] 132 [facility] [place] [address] Júnior Coppola PA-C [address] [facility] [place] [address] 08/14/2024 10:00 AM EST Office Visit Cardiology, [facility] [place] [address] Casimiro Barraza MD [address] [place] [address] Health Maintenance Due Date Last Done Comments [...] encounter Medical Devices Implanted Type Area Care Analyst Device Identifier Shelf Expiration Date Model / Serial / Lot Device Watchman Flx 35mm - [id number] Implanted:Qty: 1 on 02/05/2022 by Diamond Teran IV, MD at [facility] [employer] : INTRV CARD [id number] 10/20/2024 [id number] / / [id number] Cath Thermodilution 6fr - [id number] Implanted:Qty: 1 on 07/31/2022 by Franco Mcgregor MD at [facility] [employer] [id number] 04/30/2024 [id number] / / [id number] Mirtaclip G4 - [id number] Implanted:Qty: 1 on 11/16/2022 at [facility] [employer] 06/25/2023 [id number] / / [id number] Clip Delivery Sytem G4 Xtw - [id number] Implanted:Qty: 1 on 11/16/2022 at [facility] [employer] [id number] 08/10/2023 [id number] / / [id number] Clip Delivery Sytem G4 Xtw - [id number] Implanted:Qty: 1 on 11/16/2022 at [facility] [employer] [id number] 09/10/2023 [id number] / / [id number] documented as of this encounter Advance [...] and were consensually agreed upon. Care Teams Superintendent Plant Protection Relationship Specialty Start Date End Date Benny Waite DO [address] [place] [address] PCP - General Internal Medicine 11/25/23 documented as of this encounter
--- OUTSIDE RECORDS SUMMARY | 2024-03-26 09:54 | External Medical Summary | Summary of Care ---
Author Name Unknown Organization [facility] Address [address] [facility] [place] [address] Phone [phone] Care Team Providers Care Deicer Inspector Pneumatic Name Role Phone Benny Waite DO Primary Care Provider [phone] Reason for Visit * Reason Onset Date Comments Advice 02/22/2024 Encounter Details Date Type Department Care Team (Late st Contact Info) Description 02/22/2024 Telephone Family Practice [address] [facility] [place] [address] [place] [address] Benny Waite DO [address] [place] [address] Advice Allergies Active Allergy Reactions Criticality Noted [...] 137 MCG/SPRAY Nasal SolutionIndicatio ns:Allergies Administer 1 [place] into each nostril 2 times a day [...] the morning. 100 Tablet 3 02/22/2024 Active Aspirin 81 MG Oral Tablet Chewable Take by mouth 1 Tablet in the morning. Do not start before February 06, 2022. 02/06/2022 4 Discontinu ed(Medicat ion List Clean Up) Clopidogrel Bisulfate 75 MG Oral Tablet (Plavix) Take 1 Tablet by mouth in the morning. 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 02/05/2022 Permanent atrial fibrillation 12/22/2021 Overview: Added automatically from request for surgery [id number] Last Assessment & Plan: S/p Watchman Current [...] mRNA, LNP-s, No Pre serve, 2-Dose Series ([employer]) 05/14/2021 COVID-19, LNP-s, No Preserve , Robbie-sucrose, Ages 12+ ([employer]) 11/04/2021 COVID-19, MRNA-LNP, 23-24, P F, 30 MCG/0.3 mL, 12 YRS AND ABOVE, IM ([facility]) 11/29/2023,04/16/2023 Covid-19, Mrna, Lnp-s, Pf, B ivalent, 30 Mcg, IM, 12 yrs and above ([employer]) 03/17/2022 Pneumococcal Conjugate Vacc, 13 Valent (Prevnar) [...] Telephone Encounter - Marnie Baker LPN - 02/22/2024 12:06 PM EDT Patient is aware and will comply. Thank you * Telephone Encounter - Benny Waite DO - 02/22/2024 11:51 AM EDT Plavix refill sent. Stop ASA * Telephone Encounter - Marnie Baker LPN - 02/22/2024 11:15 AM EDT Patient is aware and will comply. Patient is requesting plavix refill, needs script signed for mail order. * Telephone Encounter - Marnie Baker LPN - 02/22/2024 11:15 AM EDT ----- Message from Benny Waite DO sent at 02/22/2024 8:54 AM EDT ----- Regarding: Lab studies COVID, RSV, and Flu tests are negative. Check status * Telephone Encounter - Macy Carbajal OSA - 02/22/2024 10:52 AM EDT Would like to speak to Antonietta Please call documented in this encounter Plan of Treatment Upcoming Encounters Date Type Department Care Team (Late st Contact Info) Description 02/25/2024 11:00 AM EDT Scheduled Telephone Interventional Pain Center, [facility] [address] [place] [address] Nurse Kishore Phone Call Interventional Pain [facility] [address] [place] [address] 02/28/2024 9:00 AM EDT Office Visit Sleep Disorders Ctr [facility] 132 [facility] [place] [phone] Miroslava Suárez CRNP [address] [place] [address] 03/01/2024 4:00 PM EDT [facility] 132 [facility] [place] [address] Myrtle Allen, RN 132 [facility] [place] [address] 04/04/2024 8:00 AM EDT Office Visit Family Practice [address] [place] [address] 293 [place] [address] Benny Waite DO 293 [place] [address] 04/25/2024 1:40 PM EST Telemedicine [facility] [place] [address] [facility] [place] [address] Yadira Omalley CRNP [address] [place] [address] Ines Castro, Community Health Iron Worker Apprentice [address] [place] [address] 05/15/2024 1:20 PM EST Office Visit Otolaryngology [facility] [place] [address] George Ferrer PA-C [address] [place] [address] 07/12/2024 8:00 AM EST Office Visit Cardiology, [facility] 132 [facility] [place] [address] Júnior Coppola PA-C [address] [place] [address] 08/14/2024 10:00 AM EST Office Visit Cardiology, [facility] 132 [place] [address] Casimiro Barraza MD [address] [place] [address] Health Maintenance Due Date Last Done Comments [...] this encounter Medical Devices Implanted Type Area Knife Setter Grinder Machine Device Identifier Shelf Expiration Date Model / Serial / Lot Device Watchman Flx 35mm - [id number] Implanted:Qty: 1 on 02/05/2022 [place] Diamond Teran IV[place] [facility] [place] [employer] [place] INTRV CARD [id number] 10/20/2024 [id number] / / [id number] Cath Thermodilution 6fr - [id number] Implanted:Qty: 1 on 07/31/2022 by Franco Mcgregor [place] [facility] [place] [employer] [id number] 04/30/2024 [id number] / / [id number] Mirtaclip G4 - [id number] Implanted:Qty: 1 on 11/16/2022 [place] [facility] [place] [employer] 06/25/2023 [id number] / / [id number] Clip Delivery Sytem G4 Xtw - [id number] Implanted:Qty: 1 on 11/16/2022 [place] [facility] [place] [employer] [id number] 08/10/2023 [id number] / / [id number] Clip Delivery Sytem G4 Xtw - [id number] Implanted:Qty: 1 on 11/16/2022 [place] [facility] [place] [employer] [id number] 09/10/2023 [id number] / / [id number] documented as of this encounter Visit Diagnoses Diagnosis History of CVA (cerebrovascular accident)- Primary Transient ischemic attack (TIA), and cerebral infarction without residual deficits documented in this encounter Advance Directives * [...] and were consensually agreed upon. Care Teams Deicer Inspector Pneumatic Relationship Specialty Start Date End Date Benny Waite DO [address] [place] [address] PCP - General Internal Medicine 11/25/23 documented as of this encounter
--- OUTSIDE RECORDS SUMMARY | 2024-03-26 09:54 | External Medical Summary | Summary of Care ---
Author Name Unknown Organization [facility] Address [address] [facility] [place] [address] Phone [phone] Care Team Providers Care Target Protection Specialist Name Role Phone Benny Waite DO Primary Care Provider [phone] Reason for Visit * Reason Onset Date Comments [facility]: Maintenance 02/21/2024 Encounter Details Date Type Department Care Team (Late st Contact Info) Description 02/21/2024 1:30 PM EDT Scheduled Telephone [facility], [facility] [address] [place] [address] Coordinator, [facility] 132 [facility] [place] [address] Allergies Active Allergy Reactions Criticality Noted Date [...] 137 MCG/SPRAY Nasal SolutionIndication s:Allergies Administer 1 [place] into each nostril 2 times a day [...] in home concentrator 1 Each 01/20/2024 Active documented as of this encounter (statuses [...] go to [facility] for abdominal x-ray today to rule out [...] MVR (mitral valve repair) 11/16/2022 Atherosclerosis of [place] co ronary artery without angina pectoris 08/11/2022 Severe tricuspid regurgitation 08/11/2022 Gout, arthropathy 07/20/2022 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 [facility] Telephonic Nurse Follow-Up Call [facility] Subprogram: Focused Care Management (3-9 months) Follow Up Call Type: Routine follow up call / Status Check Acute issue requiring follow-up call: Other: 48 hr f/u on acute visit, resp swab take to [facility] on Wednesday evening Objective: 02/19/2024 4:22 PM 02/15/2024 7:55 AM 02/07/2024 12:56 PM 01/28/2024 10:50 AM 01/28/2024 10:06 AM VITALS ACROSS ENCOUNTERS BP 112/62 116/76 132/68 139/85 122/77 Pulse 68 76 64 55 57 Weight 98.9 kg 100.5 kg 99.6 kg BMI 32.19 kg/m2 32.72 kg/m2 32.43 kg/m2 Remote Patient Monitoring: [facility] Scale: [facility] Blood Pressure Cuff: [facility] Pulse Ox: Oxygen Needs: NO CHANGE from baseline supplemental oxygen needs DME Needs: NO DME needs identified Medications: Current DTP: Double dose of Furosemide for 3 days Subjective: Condition Status: No change in symptoms Current Concerns: Phone call from patient wanting to know what the results of his PCR that was done at [facility], aware results are negative, encouraged patient to wear O2 at all times. States his pulse ox is around 87-89,has trouble in getting it into the 90's. Reports having cough with congestion, coughing up light colored phlegm, Dizziness is subsiding. Feels better since starting DTP, weight this AM was 216.7 lbs,prior to starting DTP was 218 lbs. Recommendations reviewed with patient for head cold Plain Mucinex for increased congestion VIcks vapor rub to chest Avoid dairy products Tylenol for headache/pain/fever Eat meals that are low in sodium Saline nasal spray cough syrup as directed Sore throat, use salt water gargles Throat lozenges Take all medications as prescribed Stay hydrated with clear liquids. Good handwashing Use cool mist humidifier Follow up call scheduled for tomorrow Disposition: Routed to [facility] and/or [facility] Care Team for further advice and Follow up call scheduled for tomorrow with AMBER ThomasHand Stapler Future Visits Scheduled: Future Appointments-next 60 days Date/Time Provider Specialty Dept Phone 02/22/2024 9:30 AM CoordinatorFanny [facility] [phone] 02/25/2024 11:00 AM Nurse Kishore Phone Call Interventional Pain [facility] [phone] 02/28/2024 9:00 AM (Arrive by 8:45 AM) Miroslava Suárez CRNP Sleep Disorders [phone] 03/01/2024 4:00 PM Myrtle Allen RN [facility] [phone] 04/04/2024 8:00 AM (Arrive by 7:45 AM) Benny Waite, Family Medicine [phone] 04/25/2024 1:40 PM Ines Castro, Community Health Cam Milling Machine Operator; Yadira Omalley CRNP [facility] [phone] 05/15/2024 1:20 PM (Arrive by 1:05 PM) George Ferrer PA-C Otolaryngology [phone] 07/12/2024 8:00 AM (Arrive by 7:45 AM) Júnior Coppola PA-C Cardiology [phone] 08/14/2024 10:00 AM (Arrive by 9:45 AM) Casimiro Barraza MD Cardiology [phone] Micheline Medrano RN documented in this encounter Plan of Treatment Upcoming Encounters Date Type Department Care Team (Late st Contact Info) Description 02/25/2024 11:00 AM EDT Scheduled Telephone Interventional Pain Center, [address] [place] [address] Kishore Nurse Phone Call Interventional aMrta Fisher [address] [place] [address] 02/28/2024 9:00 AM EDT Office Visit Sleep Disorders Ctr [facility] 132 [facility] [place] [phone] Miroslava Suárez CRNP [facility] [place] [address] 03/01/2024 4:00 PM EDT [facility] Visit [facility], [facility] 132 [facility] [place] [address] Myrtle Allen RN 132 [facility] [place] [address] 04/04/2024 8:00 AM EDT Office Visit Family Practice [address] [place] [address] 293 [place] [address] Benny Waite, 293 [place] [address] 04/25/2024 1:40 PM EST Telemedicine [facility], [facility] 132 [facility] [place] [address] Yadira Omalley CRNP 132 [facility] [place] [address] Ines Castro, Community Health Cam Milling Machine Operator [address] [place] [address] 05/15/2024 1:30 PM EST Office Visit Otolaryngology [facility] 132 [facility] [place] [address] George Ferrer PA-C [facility] [place] [address] 07/12/2024 8:00 AM EST Office Visit Cardiology, [facility] [address] [place] [address] Júnior Coppola PA-C [address] [place] [address] 08/14/2024 10:00 AM EST Office Visit Cardiology, [facility] [address] [place] [address] Casimiro Barraza MD [address] [place] [address] Health Maintenance Due Date Last Done Comments [...] this encounter Medical Devices Implanted Type Area Proofing Machine Operator Device Identifier Shelf Expiration Date Model / Serial / Lot Device Watchman Flx 35mm - [id number] Implanted:Qty: 1 on 02/05/2022 by Diamond Teran IV, MD at [facility] [place] [employer] : INTRV CARD [id number] 10/20/2024 [id number] 50 / / [id number] Cath Thermodilution 6fr - [id number] Implanted:Qty: 1 on 07/31/2022 by Franco Mcgregor MD at [facility] [place] [employer] [id number] 04/30/2024 [id number] / / [id number] Mirtaclip G4 - [id number] Implanted:Qty: 1 on 11/16/2022 at [facility] [employer] 06/25/2023 [id number] / / [id number] Clip Delivery Sytem G4 Xtw - [id number] Implanted:Qty: 1 on 11/16/2022 at [facility] [employer] [id number] 08/10/2023 [id number] / / [id number] Clip Delivery Sytem G4 Xtw - [id number] Implanted:Qty: 1 on 11/16/2022 at [facility] [employer] [id number] 09/10/2023 [id number] / / [id number] documented as of this encounter Advance [...] and were consensually agreed upon. Care Teams Target Protection Specialist Relationship Specialty Start Date End Date Benny Waite DO [address] [facility] [address] PCP - General Internal Medicine 11/25/23 documented as of this encounter
--- OUTSIDE RECORDS SUMMARY | 2024-03-26 09:54 | External Medical Summary | Summary of Care ---
Author Name Unknown Organization [facility] [address] [facility] [address] Phone [phone] Care Team Providers Care Recycling Manager Name Role Phone Benny Waite DO Primary Care Provider [phone] Reason for Visit * Reason Onset Date Comments [facility]: Maintenance 02/22/2024 Encounter Details Date Type Department Care Team (Latest Contact Info) Description 02/22/2024 9:30 AM EDT Scheduled Telephone [facility], [facility] 132 [facility] [place] [address] Coordinator, [facility] [address] [facility] [place] [address] Viral respiratory illness* Allergies Active Allergy Reactions [...] 137 MCG/SPRAY Nasal SolutionIndication s:Allergies Administer 1 [place] into each nostril 2 times a day [...] Overview: Added automatically from request for surgery [id number] Last Assessment & Plan: S/p Watchman Current [facility] Device(s): Connected Scale Self - [...] Telephone Encounter - Micheline Medrano RN - 02/23/2024 8:12 AM EDT Phone call to patient this morning to make him aware of acute HV today and CXR ordered by [facility], follow up call tomorrow, MERLINE Velazquez Registered Nurse Navigator Triage [facility] * Telephone Encounter - Micheline Medrano RN - 02/22/2024 2:46 PM EDT Patient scheduled with Myrtle Allen tomorrow per [facility], CXR called into and faxed to [facility] [place] imaging Claim # [id number] Several attempt to call patient to make him aware but unsuccessful as phone goes from ringing to busy time each time MERLINE Iverson Registered Nurse Navigator Triage [facility] * Telephone Encounter - Arturo Saenz DO - 02/22/2024 1:54 PM EDT [facility] Remote Medical Command Les Olivarez Subprogram: Focused Care Management (3-9 months) Recommendations: [...] up items to be completed and correspondence: FYI to Nikolas's Care Team commercial lending vice president Pool please work on the following: contact the caller with advice and orders as above call in and fax orders to the appropriate agency/company Arturo Saenz DO Remote Medical Command - [facility] 02/22/2024 Scheduled appointments in the next 60 days: Future Appointments-next 60 days Date/Time Provider Specialty Dept Phone 02/23/2024 11:30 AM Coordinator, Fanny Thomas [facility] [phone] 02/25/2024 11:00 AM Nurse Kishore Phone Call Interventional [facility] [phone] 02/28/2024 9:00 AM (Arrive by 8:45 AM) Miroslava Suárez CRNP Sleep Disorders [phone] 03/01/2024 4:00 PM Myrtle Allen RN [facility] [phone] 04/04/2024 8:00 AM (Arrive by 7:45 AM) Benny Waite DO Family Medicine [phone] 04/25/2024 1:40 PM Ines Castro, Community Health Watershed Tender; Yadira Omalley CRNP [facility] [phone] 05/15/2024 1:20 PM (Arrive by 1:05 PM) George Ferrer PA-C Otolaryngology [phone] 07/12/2024 8:00 AM (Arrive by 7:45 AM) Júnior Coppola PA-C Cardiology [phone] 08/14/2024 10:00 AM (Arrive by 9:45 AM) Casimiro Barraza MD Cardiology [phone] * Telephone Encounter - Micheline Medrano RN - 02/22/2024 12:02 PM EDT Images from the original note were not included. [facility] Telephonic Nurse Follow-Up Call [facility] Subprogram: Focused Care Management (3-9 months) Follow [...] kg/m2 32.43 kg/m2 Remote Patient Monitoring: [facility] Scale: [facility] Blood Pressure Cuff: [facility] Pulse Ox: BP while on phone with [...] wnls, appetite is good PCR done at [facility] was negative Reported some pin point drops [...] positions to avoid falls. Disposition: Routed to [facility] and/or [facility] at Home Care Team for further advice and Follow up call scheduled for tomorrow with AMBER Hygiene Assistant Future Visits Scheduled: Future Appointments-next 60 days Date/Time Provider Specialty Dept Phone 02/25/2024 11:00 AM Nurse Kishore Phone Call [facility] [phone] 02/28/2024 9:00 AM (Arrive by 8:45 AM) Miroslava Suárez CRNP Sleep Disorders [phone] 03/01/2024 4:00 PM Myrtle Allen RN [facility] [phone] 04/04/2024 8:00 AM (Arrive by 7:45 AM) Benny Waite, [facility] Medicine [phone] 04/25/2024 1:40 PM Ines Castro, Community Health Watershed Tender; Yadira Omalley CRNP [facility] [phone] 05/15/2024 1:20 PM (Arrive by 1:05 PM) George Ferrer PA-C Otolaryngology [phone] 07/12/2024 8:00 AM (Arrive by 7:45 AM) Júnior Coppola PA-C Cardiology [phone] 08/14/2024 10:00 AM (Arrive by 9:45 AM) Casimiro Barraza MD Cardiology [phone] Micheline Medrano RN documented in this encounter Plan of Treatment Upcoming Encounters Date Type Department Care Team (Late st Contact Info) Description 02/23/2024 2:00 PM EDT Home Visit [facility], [facility] [address] [place] [address] Myrtle Allen RN 132 [facility] [place] [address] 02/24/2024 9:15 AM EDT Scheduled Telephone [facility], [facility] [address] [place] [address] Coordinator, Fanny Thomas [address] [place] [address] 02/25/2024 11:00 AM EDT Scheduled Telephone Interventional Pain Center, [facility] [address] [place] [address] Kishore Nurse Phone Call Interventional Marta Fisher [address] [place] [address] 02/28/2024 9:00 AM EDT Office Visit Sleep Disorders Ctr [facility] [address] [facility] [place] [phone] Miroslava Suárez CRNP [facility] [place] [address] 03/01/2024 4:00 PM EDT Home Visit [facility], [facility] 132 [facility] [place] [address] Myrtle Allen RN 132 [facility] [place] [address] 04/04/2024 8:00 AM EDT Office Visit Family Practice [address] [place] [address] 293 [place] [address] Benny Waite, 293 [place] [address] 04/25/2024 1:40 PM EST Telemedicine [facility], [facility] 132 [facility] [place] [address] Yadira Omalley CRNP 132 [facility] [place] [address] Ines Castro, Community Health Watershed Tender [address] [place] [address] 05/15/2024 1:20 PM EST Office Visit Otolaryngology [facility] 132 [facility] [place] [address] George Ferrer PA-C 132 [facility] [place] [address] 07/12/2024 8:00 AM EST Office Visit Cardiology, [facility] [address] [place] [address] Júnior Coppola PA-C [address] [place] [address] 08/14/2024 10:00 AM EST Office Visit Cardiology, [facility] [address] [place] [address] Casimiro Barraza MD 132 [facility] [place] [address] Scheduled Orders Name Type Priority Associated Diagnoses [...] encounter Medical Devices Implanted Type Area Manager Nursing Device Identifier Shelf Expiration Date Model / Serial / Lot Device Watchman Flx 35mm - [id number] Implanted:Qty: 1 on 02/05/2022 by Diamond Teran IV, [place] [facility] [place] Method : INTRV CARD [id number] 10/20/2024 [id number] / / [id number] Cath Thermodilution 6fr - [id number] Implanted:Qty: 1 on 07/31/2022 by Franco Mcgregor MD [place] [facility] [employer] [id number] 04/30/2024 [id number] / / [id number] Mirtaclip G4 - [id number] Implanted:Qty: 1 on 11/16/2022 [place] [facility] [place] [employer] 06/25/2023 [id number] / / [id number] Clip Delivery Sytem G4 Xtw - [id number] Implanted:Qty: 1 on 11/16/2022 [place] [facility] [employer] [id number] 08/10/2023 [id number] / / [id number] Clip Delivery Sytem G4 Xtw - [id number] Implanted:Qty: 1 on 11/16/2022 [place] [facility] [id number] 09/10/2023 [id number] / / [id number] documented as of this encounter Visit [...] and were consensually agreed upon. Care Teams Recycling Manager Relationship Specialty Start Date End Date Benny Waite DO [address] [place] [address] PCP - General Internal Medicine 11/25/23 documented as of this encounter
--- OUTSIDE RECORDS SUMMARY | 2024-03-26 09:55 | External Medical Summary | Summary of Care ---
Author Name Unknown Organization [facility] Address [address] [facility] [address] Phone [phone] Care Team Providers Care Malt House Loader Name Role Phone Benny Waite DO Primary Care Provider [phone] Reason for Visit * Reason Onset Date Comments [facility]: Maintenance 02/21/2024 Encounter Details Date Type Department Care Team (Late st Contact Info) Description 02/21/2024 Telephone [facility], [facility] [address] [place] [address] Agatha Reddy, BUILDING MAINTENANCE MECHANIC [address] [facility] [address] [facility]: Maintenance Allergies Active Allergy Reactions Criticality Noted Date Comments Adhesive Tape 02/04/2017 Duloxetine High 07/13/2023 Other Reaction(s): confusion Levofloxacin 09/01/2019 documented as of this encounter (statuses as of 02/21/2024) Medications Medication Sig Dispensed Refills Start Date End Date Status Acetaminophen 500 MG Oral Tablet Take 2 Tablets by mouth in the morning and 2 Tablets before bedtime. TAKE 2 IN THE MORNING AND 2 IN THE EVENING. Active Aspirin 81 MG Oral Tablet Chewable [...] 137 MCG/SPRAY Nasal SolutionIndication s:Allergies Administer 1 [place] into each nostril 2 times a day as needed for Allergies (allergy symptoms). 30 mL 3 12/17/2023 Active Ketoconazole 2 % External Cream Apply 1 Application topically to affected area as needed for Itching. Apply to affected area Active Clopidogrel Bisulfate 75 MG Oral Tablet (Plavix) Take 1 Tablet by mouth in the morning. Active Pantoprazole Sodium 40 MG Oral Tablet [...] as of this encounter (statuses as of 02/21/2024) Active Problems Problem Noted Date Diagnosed Date [...] results. 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 02/05/2022 Permanent atrial fibrillation 12/22/2021 Overview: Added automatically from request for surgery [id number] Last Assessment & Plan: S/p Watchman Current [...] the Comments) Remote Patient Monitoring Vendor: [facility] Device(s): Connected Scale Self [...] as of this encounter (statuses as of 02/21/2024) Resolved Problems Problem Noted Date Diagnosed Date [...] as of this encounter (statuses as of 02/21/2024) Immunizations Name Administration Dates Next Due COVID-19 [...] Telephone Encounter - Agatha Reddy LPN - 02/21/2024 3:47 PM EDT Images from the original note were not included. Noted on [facility] trigger No call made See notes with milk hauler documented in this encounter Plan of Treatment Upcoming Encounters Date Type Department Care Team (Late st Contact Info) Description 02/22/2024 9:30 AM EDT Scheduled Telephone [facility], [facility] [address] [address] Coordinator, [facility] [address] [address] 02/25/2024 11:00 AM EDT Scheduled Telephone Interventional Pain Center, [facility] [address] [address] Kishore, Nurse Phone Call Interventional Pain [facility] [address] [address] 02/28/2024 9:00 AM EDT Office Visit Sleep Disorders Ctr [facility] [address] [phone] Miroslava Suárez CRNP [address] [address] 03/01/2024 4:00 PM EDT [facility] Visit [facility], [facility] 132 [facility] [place] [address] Myrtle Allen RN 132 [place] [address] 04/04/2024 8:00 AM EDT Office Visit Family Practice [address] [place] [address] 293 [place] [address] Benny Waite, 293 [place] [address] 04/25/2024 1:40 PM EST [facility]medicine [facility], [facility] 132 [facility] [place] [address] Yadira Omalley CRNP 132 [place] [address] Ines Castro, Community Health Director Product Safety [address] [place] [address] 05/15/2024 1:20 PM EST Office Visit Otolaryngology [facility] [address] [facility] [place] [address] George Ferrer PA-C 132 [facility] [address] 07/12/2024 8:00 AM EST Office Visit Cardiology, [facility] 132 [facility] [place] [address] Júnior Coppola PAClifC 132 [facility] [place] [address] 08/14/2024 10:00 AM EST Office Visit Cardiology, [facility] 132 [facility] [place] [address] Casimiro Barraza MD [address] [place] [address] Health Maintenance Due Date Last Done Comments Influenza Vaccine (FLU shot) (#1) 2024 02/19/2023, 03/12/2022, 03/13/2021, Additional history exists Adult Wellness Visit 12/20/2024 12/21/2023, 12/16/2022, 04/10/2022 Depression Monitoring 02/01/2025 02/02/2024 , 12/21/2023, 10/12/2023, Additional history exists Albumin/Creatinine Ratio 04/20/2026 04/20/2023 DTap/Tdap Vaccines (2 - Td or Tdap) 04/20/2028 04/20/2018 Pneumococcal Vaccine: 65+ Years Completed 05/02/2019, 04/20/2018 Zoster Vaccines Completed 12/13/2019, 08/2019, 04/18/2015 COVID-19 Vaccine Completed 11/29/2023, 08/2022, 03/17/2022, Additional history exists HPV (Gardasil) Vaccine Aged Out No lo nger eligible based on patient's age to complete this topic Hepatitis B Vaccine Aged Out No longe r eligible based on patient's age to complete this topic MENINGOCOCCAL (MENACTRA/MENVEO) Aged Out No longer eligible based on patient's age to complete this topic documented as of this encounter Medical Devices Implanted Type Area Retail Sales Specialist Device Identifier Shelf Expiration Date Model / Serial / Lot Device Watchman Flx 35mm - [id number] Implanted:Qty: 1 on 02/05/2022 by Diamond Teran IV, MD at [facility] [employer] : INTRV CARD [id number] 10/20/2024 [id number] 50 / / [id number] Cath Thermodilution 6fr - [id number] Implanted:Qty: 1 on 07/31/2022 by Franco Mcgregor MD at [facility] [employer] [id number] 04/30/2024 [id number] / / [id number] Mirtaclip G4 - [id number] Implanted:Qty: 1 on 11/16/2022 at [facility] [employer] 06/25/2023 [id number] / / [id number] Clip Delivery Sytem G4 Xtw - [id number] Implanted:Qty: 1 on 11/16/2022 at [facility] [employer] [id number] 08/10/2023 [id number] TW / / [id number] Clip Delivery Sytem G4 Xtw - [id number] Implanted:Qty: 1 on 11/16/2022 at [facility] [employer] [id number] 09/10/2023 [id number] / / [id number] documented as of this encounter Advance [...] and were consensually agreed upon. Care Teams Malt House Loader Relationship Specialty Start Date End Date Benny Waite DO 293 [facility], [place] [address] PCP - General Internal Medicine 11/25/23 documented as of this encounter
--- OUTSIDE RECORDS SUMMARY | 2024-03-26 09:55 | External Medical Summary | Summary of Care ---
Author Name Unknown Organization [facility] Address [address] [facility] [place] [address] Phone [phone] Care Team Providers Care Md Pediatric Allergist Name Role Phone Benny Waite DO Primary Care Provider [phone] Encounter Details Date Type Department Care Team (Late st Contact Info) Description 02/16/2024 Result Scan Unspecified Department Timothy Eddy DO [address] [address] [address] <No scans attached> Allergies Active Allergy Reactions Criticality Noted Date [...] 137 MCG/SPRAY Nasal SolutionIndication s:Allergies Administer 1 [place] into each nostril 2 times a day [...] MVR (mitral valve repair) 11/16/2022 Atherosclerosis of [place] co ronary artery without angina pectoris 08/11/2022 Severe tricuspid regurgitation 08/11/2022 Gout, arthropathy 07/20/2022 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 02/05/2022 Permanent atrial fibrillation 12/22/2021 Overview: Added automatically from request for surgery [id number] Last Assessment & Plan: S/p Watchman Current [...] MCG/0.3 mL, 12 YRS AND ABOVE, IM ([facility]) 11/29/2023,04/16/2023 Covid-19, Mrna, Lnp-s, Pf, B [...] PM EDT Scheduled Telephone [facility], [facility] [address] [place] [address] Coordinator, [facility] 132 [address] [place] [address] 02/25/2024 11:00 AM EDT Scheduled Telephone Interventional Pain Center, [facility] [address] [place] [address] Novak, Nurse Phone Call Interventional Pain [facility] [address] [place] [address] 02/28/2024 9:00 AM EDT Office Visit Sleep Disorders Ctr [facility] [address] [place] [phone] Miroslava Suárez CRNP 132 [facility] [place] [address] 03/01/2024 4:00 PM EDT [facility] Visit [facility] [address] [place] [address] Myrtle Allen, RN [address] [place] [address] 04/04/2024 8:00 AM EDT Office Visit Family Practice [address] [place] [address] 293 [place] [address] Benny Waite, 293 [place] [address] 04/25/2024 1:40 PM EST Telemedicine [facility], [facility] 132 [facility] [place] [address] Yadira Omalley CRNP 132 [place] [address] Ines Castro, Community Health Link Machine Operator [address] [place] [address] 05/15/2024 1:20 PM EST Office Visit Otolaryngology [facility] 132 [place] [address] George Ferrer PA-C 132 [place] [address] 07/12/2024 8:00 AM EST Office Visit Cardiology, [facility] 132 [facility] [place] [address] Júnior Coppola PAClifC 132 [place] [address] 08/14/2024 10:00 AM EST Office Visit Cardiology, [facility] 132 [facility] [place] [address] Casimiro Barraza MD 132 [place] [address] Health Maintenance Due Date Last Done [...] this encounter Medical Devices Implanted Type Area Executive Assistant To President Device Identifier Shelf Expiration Date Model / Serial / Lot Device Watchman Flx 35mm - [id number] Implanted:Qty: 1 on 02/05/2022 by Diamond Teran IV, MD at [facility] [employer] : INTRV CARD [id number] 10/20/2024 [id number] 50 / / [id number] Cath Thermodilution 6fr - [id number] Implanted:Qty: 1 on 07/31/2022 by Franco Mcgregor MD at [facility] [employer] [id number] 04/30/2024 [id number] / / [id number] Mirtaclip G4 - [id number] Implanted:Qty: 1 on 11/16/2022 at [facility] [employer] 06/25/2023 [id number] / / [id number] Clip Delivery Sytem G4 Xtw - [id number] Implanted:Qty: 1 on 11/16/2022 at [facility] [employer] [id number] 08/10/2023 [id number] TW / / [id number] Clip Delivery Sytem G4 Xtw - [id number] Implanted:Qty: 1 on 11/16/2022 at [facility] [employer] [id number] 09/10/2023 [id number] TW / / [id number] documented as of this encounter Procedures Procedure Name Priority Date/Time Associated Diagnosis Comments OUTSIDE LAB RESULTS 02/16/2024 documented in this encounter Results * OUTSIDE LAB RESULTS (02/16/2024) 02/16/2024 Timothymyah Mejiaalex [facility] documented in this encounter Advance Directives * [...] Date End Date Benny Waite DO 293 [place] [address] PCP - General Internal Medicine 11/25/23 documented as of this encounter
--- OUTSIDE RECORDS SUMMARY | 2024-03-26 09:55 | External Medical Summary | Summary of Care ---
Author Name Unknown Organization [facility] Address [address] [place] [facility] [place] [address] Phone [phone] Care Team Providers Care Assistant Offset Press Operator Name Role Phone Benny Waite DO Primary Care Provider [phone] Reason for Visit * Reason Onset Date Comments Encounter Created in Error 02/21/2024 Encounter Details Date Type Department Care Team (Late st Contact Info) Description 02/21/2024 Telephone [facility] [place] [facility] [address] [place] [address] Micheline Medrano, MICHELLE [address] [place] [address] [place] [address] Encounter Created in Error Allergies Active Allergy Reactions Criticality Noted Date [...] 137 MCG/SPRAY Nasal SolutionIndication s:Allergies Administer 1 [place] into each nostril 2 times a day [...] He will go to [facility] for abdominal x-ray today to [...] MVR (mitral valve repair) 11/16/2022 Atherosclerosis of [place] co ronary artery without angina pectoris 08/11/2022 Severe tricuspid regurgitation 08/11/2022 Gout, arthropathy 07/20/2022 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 02/05/2022 Permanent atrial fibrillation 12/22/2021 Overview: Added automatically from request for surgery [id number] Last Assessment & Plan: S/p Watchman Current [...] Encounter - Micheline Medrano RN - 02/21/2024 1:49 PM EDT Error, see other encounter documented in this encounter Plan of Treatment Upcoming Encounters Date Type Department Care Team (Late st Contact Info) Description 02/22/2024 9:30 AM EDT Scheduled Telephone [facility] [address] [address] Coordinator, [facility] [address] [address] 02/25/2024 11:00 AM EDT Scheduled Telephone Interventional Pain Center, [facility] [address] [address] Kishore, Nurse Phone Call Interventional Pain [facility] [address] [address] 02/28/2024 9:00 AM EDT Office Visit Sleep Disorders Ctr [facility] [address] [phone] Miroslava Suárez CRNP [address] [address] 03/01/2024 4:00 PM EDT [facility] [address] [place] [address] Myrtle Allen RN 132 [place] [address] 04/04/2024 8:00 AM EDT Office Visit Family Practice [address] [place] [address] 293 [place] [address] Benny Waite, 293 [place] [address] 04/25/2024 1:40 PM EST Telemedicine [facility] [place], [facility] 132 [place] [address] Yadira Omalley CRNP 132 [facility] [place] [address] Ines Castro, Community Health Genetic Technologist [address] [place] [address] 05/15/2024 1:20 PM EST Office Visit Otolaryngology [facility] 132 [facility] [place] [address] George Ferrer PA-C 132 [place] [address] 07/12/2024 8:00 AM EST Office Visit Cardiology, [facility] 132 [place] [address] Júnior Coppola PA-C [facility] [place] [address] 08/14/2024 10:00 AM EST Office Visit Cardiology, [facility] 132 [facility] [place] [address] Casimiro Barraza MD [facility] [place] [address] Health Maintenance Due Date Last Done Comments [...] this encounter Medical Devices Implanted Type Area Record Searcher Device Identifier Shelf Expiration Date Model / Serial / Lot Device Watchman Flx 35mm - [id number] Implanted:Qty: 1 on 02/05/2022 by Diamond Teran IV, MD at [facility] [employer] : INTRV CARD [id number] 10/20/2024 [id number] 50 / / [id number] Cath Thermodilution 6fr - [id number] Implanted:Qty: 1 on 07/31/2022 by Franco Mcgregor MD at [facility] [employer] [id number] 04/30/2024 [id number] / / [id number] Mirtaclip G4 - [id number] Implanted:Qty: 1 on 11/16/2022 at [facility] [employer] 06/25/2023 [id number] / / [id number] Clip Delivery Sytem G4 Xtw - [id number] Implanted:Qty: 1 on 11/16/2022 at [facility] [employer] [id number] 08/10/2023 [id number] TW / / [id number] Clip Delivery Sytem G4 Xtw - [id number] Implanted:Qty: 1 on 11/16/2022 at [facility] [employer] [id number] 09/10/2023 [id number] TW / / [id number] documented as of this encounter Advance [...] and were consensually agreed upon. Care Teams Assistant Offset Press Operator Relationship Specialty Start Date End Date Benny Waite DO [address] [place] [address] PCP - General Internal Medicine 11/25/23 documented as of this encounter
--- OUTSIDE RECORDS SUMMARY | 2024-03-26 09:55 | External Medical Summary | Summary of Care ---
Author Name Unknown Organization [facility] Address [address] [facility] [address] Phone [phone] Care Team Providers Care Business Process Engineer Name Role Phone Benny Waite DO Primary Care Provider [phone] Reason for Visit * Reason Onset Date Comments Medication Refill 02/22/2024 Encounter Details Date Type Department Care Team (Late st Contact Info) Description 02/22/2024 Refill [facility], [facility] [address] [facility] [place] [address] Laura Giordano, MICHELLE [address] [facility] [place] [address] Allergies Active Allergy Reactions Criticality Noted Date [...] 137 MCG/SPRAY Nasal SolutionIndicatio ns:Allergies Administer 1 [place] into each nostril 2 times a day [...] IN GASIndications:Ch ronic respiratory failure with hypoxia ([facility]),CHF (congestive heart failure), NYHA class I, chronic, diastolic ([facility]),Shortness of breath Administer 2 L/min(Oxygen) into nostril continuous. Portable oxygen concentrator. Please remove his tanks Needs to keep the in home concentrator 1 Each 01/20/2024 Active Clopidogrel Bisulfate 75 MG Oral Tablet (Plavix) Take 1 Tablet by mouth in the morning. 4 Discontinu ed(Refill) Clopidogrel Bisulfate 75 MG Oral Tablet (Plavix) [...] without results. He will go to [facility] for abdominal x-ray today to [...] Overview: Added automatically from request for surgery [id number] Last Assessment & Plan: S/p Watchman Current [...] MCG/0.3 mL, 12 YRS AND ABOVE, IM ([facility]) 11/29/2023,04/16/2023 Covid-19, Mrna, Lnp-s, Pf, [...] Telephone Encounter - Yadira Omalley CRNP - 02/22/2024 11:37 AM EDTSigned Prescriptions: Disp Refills Clopidogrel Bisulfate 75 MG Oral Tablet (P*90 Tab*3 Sig: Take 1 Tablet by mouth in the morning.Authorizing Provider: YADIRA OMALLEY * Telephone Encounter - Yadira Omalley CRNP - 02/22/2024 11:37 AM EDT Rx sent * Telephone Encounter - Laura Giordano RN - 02/22/2024 11:10 AM EDT Received call from pt who is requesting a refill of Plavix. He states that he did call the [facility] mail order pharmacy who said that they do not have any refills in order to fill this. Nikolas states that he has 4 tablets left. He states that the mail order pharmacy will over night him the medication once they do receive a script. Will send to Provider to request refill Refill pended Laura RICK, RN [facility] Intake Nurse Navigator Triage documented in this encounter Plan of Treatment Upcoming Encounters Date Type Department Care Team (Late st Contact Info) Description 02/25/2024 11:00 AM EDT Scheduled Telephone Interventional Pain Center, [facility] 132 [facility] [address] [address] [facility] Nurse Phone Call Interventional Pain [facility] [address] [place] [address] 02/28/2024 9:00 AM EDT Office Visit Sleep Disorders Ctr [facility] 132 [facility] [place] [phone] Miroslava Suárez CRNP 132 [facility] [place] [address] 03/01/2024 4:00 PM EDT [facility] [place], [facility] [address] [address] Myrtle Allen RN 132 [facility] [place] [address] 04/04/2024 8:00 AM EDT Office Visit Family Practice [address] [place] [address] 293 [place] [address] Benny Waite, 293 [place] [address] 04/25/2024 1:40 PM EST [facility]medicine [facility] [place], [facility] 132 [facility] [place] [address] Yadira Omalley CRNP [address] [place] [address] Ines Castro, Community Health Artist Color Separation [address] [place] [address] 05/15/2024 1:20 PM EST Office Visit Otol[facility]ology [facility] [address] [place] [address] George Ferrer PA-C [address] [place] [address] 07/12/2024 8:00 AM EST Office Visit Cardiology, [facility] [place] [address] Júnior Coppola PA-C [address] [place] [address] 08/14/2024 10:00 AM EST Office Visit Cardiology, [facility] [place] [address] Casimiro Barraza MD [address] [place] [address] Health Maintenance Due Date Last Done Comments [...] this encounter Medical Devices Implanted Type Area Freelance Data Entry Device Identifier Shelf Expiration Date Model / Serial / Lot Device Watchman Flx 35mm - [id number] Implanted:Qty: 1 on 02/05/2022 by Diamond Teran IV, MD at [facility] [employer] : INTRV CARD [id number] 10/20/2024 [id number] 50 / / [id number] Cath Thermodilution 6fr - [id number] Implanted:Qty: 1 on 07/31/2022 by Franco Mcgregor MD at [facility] [employer] [id number] 04/30/2024 [id number] / / [id number] Mirtaclip G4 - [id number] Implanted:Qty: 1 on 11/16/2022 at [facility] [employer] 06/25/2023 [id number] / / [id number] Clip Delivery Sytem G4 Xtw - [id number] Implanted:Qty: 1 on 11/16/2022 at [facility] [employer] [id number] 08/10/2023 [id number] TW / / [id number] Clip Delivery Sytem G4 Xtw - [id number] Implanted:Qty: 1 on 11/16/2022 at [facility] [employer] [id number] 09/10/2023 [id number] / / [id number] documented as of this encounter Advance [...] were consensually agreed upon. Care Teams Business Process Engineer Relationship Specialty Start Date End Date Benny Waite DO 293 [place] [address] PCP - General Internal Medicine 11/25/23 documented as of this encounter
--- NOTE | 2024-03-26 10:03 | Emergency Department Note ---
Impression & Plan Abscess of nose, Facial cellulitis ED Provider Note Name: ASUNCION MENSAH Age: 83 Sex: Male Arrives Via: Walk-In Informant: Patient ED Provider: Domingo Villa MD Chief Complaint: Nasal infection Impression: As per impressions above Medical Decision Making: Kusum 83-year-old gentleman arrives for evaluation of swelling and infection of the right naris. By examination significant infection of the entire right naris with cellulitis which expands over the right maxilla the right lower periorbital area as well as somewhat onto the left naris. Quite uncomfortable. Laboratory workup is not consistent with sepsis or shock. CT of the face with contrast does reveal a abscess. Discussed this with the ENT given the size and location make sense to see how patient responds IV antibiotics prior to attempting drainage. Patient was empirically given IV Unasyn and vancomycin. MRSA testing did end up testing positive. Patient family agreeable to hospitalization. At the time of hospitalization patient is not septic and he does not have any evidence of meningitis nor is or any evidence of necrotizing fasciitis of the face. Triage/Nursing Notes reviewed by Me Differential: cellulitis, abscess, osteomyelitis, sepsis, meningitis, orbital infection, necrotizing fasciitis amongst many other pathologies considered Vital Signs: reviewed and remarkable for mildly hypertensive tachycardic Interventions: Vancomycin IV, Unasyn IV, fentanyl IV, Dilaudid IV Labs:ED labs Reviewed by me and remarkable for no significant abnormalities Imaging:CT of the face with IV contrast as per my informal interpretation reveals a small abscess of the right nares does not extend to the bone. Confirmed the radiologist Consults:Discussed with Dr. Platt Of ENT who agrees with plan for IV antibiotics and monitoring. Discussed with [facility] service for further management Plan: Disposition:Hospitalization. Condition: Good History of Present Illness: 83-year-old gentleman arrives for evaluation of nasal infection. Patient with right naris inflammation redness several days ago. They have been attempting warm compresses. Over the last 24 hours rapid worsening of infection. The entire nose is now swollen erythematous and purpleish. Severe pain noted. This morning he awoke with increasing swelling underneath the right eyelid. Denies any fevers. Associated with some mild runny nose. Patient did have influenza about 3 weeks ago no remaining symptoms. Notes mild shortness of breath but he has chronic shortness of breath issues and uses oxygen chronically. Using Tylenol at home with minimal improvement. Patient denies significant infection issues previously. No known history of MRSA. Denies any known scratches or injuries. Patient notes he currently has a moderate headache. Denies new neurologic deficits or other concerning signs or symptoms. States his breathing is at baseline. Past Medical History:See Below Home Medications:See Below Allergies:See Below Vitals:Blood Pressure: 154/127, Pulse 100, RR 16, T 36.5C, O2 89% on RA Physical Exam: GENERAL: Patient is very uncomfortable, moderate appearing and in moderate distress. FACE: Swelling and erythema over the right nares extending onto right maxilla and right lower eyelid. There is some fluid blister forming over the right maxilla as well. Cellulitis does extend over the left nares as well. Nose is severely tender to palpation no overt abscesses not appreciated. Questionable small pustule developing anterior right naris RESPIRATORY: No dyspnea. Clear to auscultation and equal bilaterally. CARDIOVASCULAR: Regular rate and rhythm.No murmur appreciated. EXTREMITIES: Normal motion all extremities, no cyanosis, mild bilateral lower leg edema. NEUROLOGIC: Alert and oriented. No focal neurologic deficits appreciated SKIN: No rash, no jaundice, no diaphoresis. PSYCH: Appropriate GCS: 15 ED Course: Times/Reassessments: Patient feeling a bit better after pain medications agreeable to hospitalization Domingo Villa MD Past Med/Surg History Problem List (Updated 03/27/24 @ 15:26 by Domingo Villa MD) Facial cellulitis (Acute) Abscess of nose (Acute) Nasal abscess Cellulitis of nose Vision loss, left eye Severe tricuspid regurgitation Lip lesion BPH (benign prostatic hyperplasia) Lumbar disc disease Decompensated heart failure Multifocal PVCs with pairing (Acute) Pleural effusion (Acute) Delirium (Acute) Hypoxia (Acute) On anticoagulant therapy (Acute) eliquis bid Encounter for pre-operative examination Lumbar spinal stenosis (Acute) Achilles tendonitis, bilateral Plantar fasciitis, bilateral History of amputation of left hand History of colonoscopy 2020 Sleep apnea does not use bipap as ordered Medical History Chronic hypoxic respiratory failure, on home oxygen therapy Visual hallucinations AMS (altered mental status) CHF (congestive heart failure) Atrial fibrillation on eliquis bid--follows with Dr. Barraza HTN (hypertension) Mitral regurgitation Presence of Watchman left atrial appendage closure device Occipital stroke Osteoarthritis History of kidney stones Rectal bleeding reason for scheduled colonoscopy Surgical History S/P TURP H/O cystoscopy H/O mitral valve repair Amputation of left hand History of lumbar discectomy History of appendectomy History of tooth extraction all top teeth removed History of tonsillectomy and adenoidectomy History of bilateral cataract extraction 2020 Family History Other No family history of adverse response to anesthesia No pertinent family history Social History Smoking Status: Never smoker Tobacco Type: Cigarettes Second Hand Exposure: No; Do You Dip or Chew Tobacco: No; Hx Alcohol Use: No Hx Substance Use: No Preferred Language: Congolese Communication Ability: Effective Apple Checker Required: No Beliefs That Will Affect Care: None Current Living Situation: Alone Current Living Situation Comment: Has dementia Other Information That Helps Us Care for You: No Feels Safe at Home: Yes Safety Concerns: Feels Safe At This Time Assistive Devices: Cane, Oxygen - Continuous and Walker Allergies Allergies Allergy/AdvReac Type Severity Reaction Status Date / Time adhesive Allergy Mild BLISTER Verified 03/26/24 10:35 SKIN levofloxacin [From Levaquin] Allergy Unknown CAN'T Verified 03/26/24 10:35 REMEMBER sertraline AdvReac Severe hallucinati Verified 03/26/24 10:35 ons duloxetine [From Cymbalta] AdvReac Intermediate confusion Verified 03/26/24 10:35 Home Meds Home Medications Medication Instructions Recorded Confirmed finasteride 5 mg tablet 5 mg PO PM 06/09/21 03/26/24 acetaminophen 500 mg tablet 1,000 mg PO AMPM 07/13/23 03/26/24 allopurinol 300 mg tablet 300 mg PO QAM 07/13/23 03/26/24 aspirin 81 mg chewable tablet 81 mg PO QAM 07/13/23 03/26/24 docusate sodium 100 mg capsule 100 mg PO BID 07/13/23 03/26/24 clopidogrel 75 mg tablet 75 mg PO DAILY 08/26/23 03/26/24 furosemide 20 mg tablet (Lasix) 40 mg PO QAM 12/04/23 03/26/24 ketoconazole 2 % topical cream 1 applic topical UD PRN Itching 12/04/23 03/26/24 azelastine 137 mcg (0.1 %) nasal 2 spray intranasal BID 03/26/24 03/26/24 spray desloratadine 5 mg tablet 10 mg PO UD 03/26/24 03/26/24 hydrocortisone acetate 25 mg 25 mg MN UD 03/26/24 03/26/24 rectal suppository (Anucort-HC) Previous Rx's Medication Instructions Recorded gabapentin 300 mg capsule 300 mg PO TID #90 caps 12/14/23 meclizine 12.5 mg tablet 12.5 mg PO BID PRN Dizziness #30 12/14/23 tabs metoprolol succinate 25 mg 25 mg PO QAM #30 tabs 12/14/23 tablet,extended release 24 hr pantoprazole 40 mg tablet,delayed 40 mg PO QAM #30 tabs 12/14/23 release quetiapine 25 mg tablet 12.5 mg (1/2 x 25 mg) PO HS #30 12/14/23 tabs rosuvastatin 20 mg tablet 20 mg PO QAM #30 tabs 12/14/23 Results & Data (ED) Vital Signs Vital Signs - 24 hr 03/26/24 09:49 Temperature 36.5 C Temperature Source Oral Pulse Rate 100 H Respiratory Rate 16 Blood Pressure 154/127 H Blood Pressure Mean 136 Blood Pressure Position Sitting Pulse Oximetry 89 L Oxygen Delivery Method Room Air Sepsis Recent Fever Within 48 Hours No Sepsis New/Unexplained Change in Mental Status No Sepsis Action Taken by Nursing No Action Required Laboratory Data 03/27/24 06:13 03/27/24 06:13 Lab Results 03/26/24 03/26/24 Range/Units 10:23 10:32 WBC 10.08 (4.8-10.8) K/ul RBC 4.11 L (4.70-6.10) M/uL Hgb 15.0 (14.0-18.0) g/dl POC Hgb 15.6 (14.0-18.0) g/dl Hct 43.6 (42.0-52.0) % POC Hct 46 (42-52) % MCV 106.1 H (80.0-100.0) fL MCH 36.5 H (25.0-34.0) pg MCHC 34.4 (32.0-36.0) g/dL RDW Std Deviation 56.3 H (36.4-46.3) fL RDW Coeff of Neal 14.4 (11.5-14.5) % Plt Count 158 (130-400) K/uL MPV 9.5 (9.4-12.4) fL Immature Gran % (Auto) 0.3 % Neut % (Auto) 82.9 % Lymph % (Auto) 8.5 % Marinette % (Auto) 7.9 % Eos % (Auto) 0.2 % Baso % (Auto) 0.2 % Neut # (Auto) 8.35 H (1.40-6.50) K/uL Lymph # (Auto) 0.86 L (1.20-3.40) K/uL Marinette # (Auto) 0.80 H (0.11-0.59) K/uL Eos # (Auto) 0.02 (0.00-0.50) K/uL Baso # (Auto) 0.02 (0.00-0.20) K/uL Immature Gran # (Auto) 0.03 (0.01-0.20) K/uL POC Sodium 140 (135-144) mmol/L Sodium 139 (136-145) mmol/L POC Potassium 3.3 (3.3-5.0) mmol/L Potassium 3.7 (3.5-5.1) mmol/L POC Chloride 96 L (101-112) mmol/L Chloride 99 (98-107) mmol/L Carbon Dioxide 35 H (21-32) mmol/L POC Total CO2 32 H (24-31) mmol/L Anion Gap 5 (3-11) POC Anion Gap 16.0 (16-25) mmol/L POC BUN 20 H (7-18) mg/dl BUN 19 (6-23) mg/dl Creatinine 0.98 (0.6-1.4) mg/dl POC Creatinine 1.0 (0.6-1.3) mg/dl Est Cr Clr Drug Dosing 62.3 ml/min eGFR 75.57 BUN/Creatinine Ratio 19.4 (10-20) Glucose 146 H (70-99(Fasting)) mg/dl POC Glucose (other) 150 H (70-99) mg/dl Lactate 1.5 (0.4-2.0) mmol/L Calcium 9.0 (8.6-10.3) mg/dl POC Ioniz Calcium Ramon 1.14 (1.12-1.32) mmol/l Magnesium 1.8 (1.7-2.4) mg/dl Troponin I High Sens 14.4 (0-20) pg/ml Procalcitonin < 0.02 (0-0.5) ng/ml Nasal Screen MRSA (PCR) Positive A (Negative) SARS-CoV-2 (PCR) NEGATIVE (Negative) Influenza Type A (PCR) Negative (Neg) Influenza Type B (PCR) Negative (Neg) RSV (RT-PCR) Negative (Neg) Administered Medications Allopurinol (Allopurinol 300 Mg Tab) 300 mg PO QAM [facility] Stop: 04/26/24 08:59 Last Admin: 03/27/24 07:39 Dose: 300 mg Documented By: [facility] Aspirin (Aspirin 81 Mg Chew) [facility] Stop: 04/26/24 08:59 Last Admin: 03/27/24 07:39 Dose: 81 mg Documented By: [facility] Azelastine HCl (Azelastine Hcl 0.1% Nasal 200 Sprays/27,400 Mcg Btl) 2 sprays NA BID [facility] Stop: 04/25/24 20:59 Last Admin: 03/27/24 07:43 Dose: 2 sprays Documented By: [facility] Admin: 03/26/24 20:07 Dose: 2 sprays Documented By: Clopidogrel Bisulfate (Clopidogrel Bisulfate 75 Mg Tab) 75 mg PO DAILY [facility] Stop: 04/26/24 08:59 Last Admin: 03/27/24 07:38 Dose: 75 mg Documented By: [facility] Docusate Sodium (Docusate Sodium 100 Mg Cap) 100 mg PO BID [facility] Stop: 04/25/24 20:59 Last Admin: 03/27/24 07:43 Dose: 100 mg Documented By: [facility] Admin: 03/26/24 20:06 Dose: 100 mg Documented By: Enoxaparin Sodium (Enoxaparin Inj 40 Mg/0.4 Ml Syr) 40 mg SQ QAM [facility] Stop: 04/26/24 08:59 Last Admin: 03/27/24 07:39 Dose: 40 mg Documented By: [facility] Finasteride (Finasteride 5 Mg Tab) 5 mg PO PM DANIELLE Stop: 04/25/24 20:59 Last Admin: 03/26/24 20:07 Dose: 5 mg Documented By: Furosemide (Furosemide 40 Mg Tab) 40 mg PO QAM [facility] Stop: 04/25/24 13:38 Last Admin: 03/27/24 07:39 Dose: 40 mg Documented By: [facility] Admin: 03/26/24 14:42 Dose: Not Given Documented By: KATHY Gabapentin (Gabapentin 300 Mg Cap) 300 mg PO TID [facility] Stop: 04/25/24 13:59 Last Admin: 03/27/24 13:01 Dose: 300 mg Documented By: [facility] Admin: 03/27/24 07:37 Dose: 300 mg Documented By: [facility] Admin: 03/26/24 20:06 Dose: 300 mg Documented By: Admin: 03/26/24 14:42 Dose: 300 mg Documented By: KATHY Ampicillin Sodium/Sulbactam Sodium (Unasyn) 3,000 mg in 100 mls @ 200 mls/hr IV Q6H DANIELLE; Protocol Stop: 04/02/24 17:59 Last Infusion: 03/27/24 13:00 Dose: Infused Documented By: [facility] Admin: 03/27/24 12:18 Dose: 200 mls/hr Documented By: [facility] Infusion: 03/27/24 05:44 Dose: Infused Documented By: Admin: 03/27/24 05:14 Dose: 200 mls/hr Documented By: Infusion: 03/27/24 00:30 Dose: Infused Documented By: Admin: 03/27/24 00:04 Dose: 200 mls/hr Documented By: Infusion: 03/26/24 18:27 Dose: Infused Documented By: Admin: 03/26/24 17:35 Dose: 200 mls/hr Documented By: KATHY Vancomycin HCl 1,500 mg/ (Sodium Chloride) 530 mls @ 200 mls/hr IV Q24H DANIELLE Stop: 04/03/24 04:59 Last Infusion: 03/27/24 08:00 Dose: Infused Documented By: [facility] Admin: 03/27/24 05:14 Dose: 200 mls/hr Documented By: BEL Lactobacillus Acidophilus (Advanced Probiotic 625 Mg Capsule) 1,250 mg PO DAILY DANIELLE Stop: 04/25/24 13:38 Last Admin: 03/27/24 07:38 Dose: 1,250 mg Documented By: Admin: 03/26/24 14:42 Dose: 1,250 mg Documented By: KATHY Loratadine (Loratadine 10 Mg Tab) 10 mg PO DAILY [facility] Stop: 04/25/24 13:59 Last Admin: 03/27/24 07:38 Dose: 10 mg Documented By: Admin: 03/26/24 14:43 Dose: Not Given Documented By: KATHY Menthol (Cough Drop (Sugar Free) Ap 24 Ap/1 Box) 1 ap BUCCAL TID PRN PRN Reason: Sore Throat Stop: 04/25/24 19:54 Last Admin: 03/26/24 20:06 Dose: 1 ap Documented By: BEL Metoprolol Succinate (Metoprolol Succ 25mg Ext Rel Tab) [facility] [place] Stop: 04/26/24 08:59 Last Admin: 03/27/24 07:38 Dose: 25 mg Documented By: IMANI Morphine Sulfate (Morphine Sulfate 2 Mg/Ml Carp) 2 mg IV Q6H PRN PRN Reason: Mod-Sev Pain (Scale 4-10) Stop: 04/09/24 13:38 Last Admin: 03/26/24 14:43 Dose: 2 mg Documented By: KATHY Pantoprazole Sodium (Pantoprazole 40 Mg Tab) [facility] Stop: 04/26/24 08:59 Last Admin: 03/27/24 07:38 Dose: 40 mg Documented By: IMANI Quetiapine Fumarate (Quetiapine Fumarate 25 Mg Tablet) 12.5 mg PO HS [facility] Stop: 04/25/24 20:59 Last Admin: 03/26/24 20:06 Dose: 12.5 mg Documented By: BEL Rosuvastatin Calcium (Rosuvastatin Calcium 20 Mg Tab) 20 mg PO [facility] Stop: 04/26/24 08:59 Last Admin: 03/27/24 07:39 Dose: 20 mg Documented By: IMANI Discontinued Medications Fentanyl Citrate (Fentanyl Citrate Pf 100 Mcg/2 Ml Vial) 50 mcg IV NOW [facility] Stop: 03/26/24 09:59 Last Admin: 03/26/24 10:35 Dose: 50 mcg Documented By: NA Hydromorphone HCl (Hydromorphone Inj 0.5 Mg/0.5 Ml Syr) 0.5 mg IV NOW STA Stop: 03/26/24 11:35 Last Admin: 03/26/24 11:41 Dose: 0.5 mg Documented By: JUDSON Ampicillin Sodium/Sulbactam Sodium (Unasyn) 3,000 mg in 100 mls @ 200 mls/hr IV NOW STA Stop: 03/26/24 11:55 Last Infusion: 03/26/24 12:35 Dose: Infused Documented By: Admin: 03/26/24 11:47 Dose: 200 mls/hr Documented By: JUDSON Vancomycin HCl 2,000 mg/ (Sodium Chloride) 540 mls @ 200 mls/hr IV NOW ONE Stop: 03/26/24 14:07 Last Infusion: 03/26/24 16:07 Dose: Infused Documented By: Admin: 03/26/24 14:08 Dose: 200 mls/hr Documented By: KATHY Influenza Virus Vacc Triv Types A&B (Influenza Vacc [id number](65y+)/Pf (Iiv3) 0.5ml Syr) 0.5 ml IM .ONCE ONE Stop: 03/27/24 10:18 Last Admin: 03/27/24 12:18 Dose: 0.5 ml Documented By: IMANI Ioversol (Optiray 320 100ml) 94 ml IV ONCE ONE Stop: 03/26/24 10:46 Last Admin: 03/26/24 10:45 Dose: 94 ml Documented By: JAR Potassium Chloride (Potassium Chloride Crtab 20 Meq Tabcr) 40 meq PO NOW STA Stop: 03/27/24 07:46 Last Admin: 03/27/24 08:26 Dose: 40 meq Documented By: IMANI Discharge Plan Visit Data Chief Complaint: Facial Injury/Pain Stated Complaint: SWOLLEN FACE ED Provider: Domingo Villa Discharge Problem: Abscess of nose, Facial cellulitis Patient Disposition: Admitted As Inpatient Discharge Instructions Interventions: ED Discharge Assessment Last Done: 03/26/24 12:33
[2024-03-26] MEDS: fentaNYL citrate PF 100 MCG/2 ML VIAL IV STA (10:35)
[2024-03-26 10:42] LABS: Basophils # (auto) 0.02 K/uL (0.00-0.20); Basophils % (auto) 0.2 %; Eosinophils # (auto) 0.02 K/uL (0.00-0.50); Eosinophils % (auto) 0.2 %; Hematocrit (blood only) 43.6 % (42.0-52.0); Immature Granulocytes # (auto) 0.03 K/uL (0.01-0.20); Immature Granulocytes % (auto) 0.3 %; Lymphocytes # (auto) 0.86 K/uL (1.20-3.40); Lymphocytes % (auto) 8.5 %; Mean Corpuscular Hemoglobin 36.5 pg (25.0-34.0); Mean Corpuscular Hgb Conc 34.4 g/dL (32.0-36.0); Mean Corpuscular Volume 106.1 fL (80.0-100.0); Mean Platelet Volume 9.5 fL (9.4-12.4); Monocytes % (auto) 7.9 %; Neutrophils # (auto) 8.35 K/uL (1.40-6.50); Neutrophils % (auto) 82.9 %; Platelet Count 158 K/uL (130-400); RDW Coefficient of Variation 14.4 % (11.5-14.5); RDW Standard Deviation 56.3 fL (36.4-46.3); Red Blood Count 4.11 M/uL (4.70-6.10); White Blood Count 10.08 K/ul (4.8-10.8)
--- NOTE | 2024-03-26 10:42 | XRay Report ---
XR chest 1V portable HISTORY: 83 years-old Male hypoxia acute hypoxia COMPARISON: 12/04/2023 TECHNIQUE: AP view of the chest FINDINGS: Cardiac silhouette is enlarged. Pulmonary vascular congestion. Surgical clips project over the left h eart border. No pneumothorax. Probable trace pleural effusions with mild bibasilar densities. IMPRESSION: 1. Cardiomegaly with pulmonary vascular congestion. 2. Mild bibasilar opacities favor atelectasis. ACT 112: Negative or not required by law. The above report was generated using voice recognition software. It may contain grammatical, syntax o r spelling errors. Electronically signed by: Ozzie Zhao M.D. 03/26/2024 10:40 AM
[2024-03-26] MEDS: OPTIRAY 320 100ml IV ONE (10:45)
[2024-03-26 10:50] LABS: iSTAT Hemoglobin 15.6 g/dl (14.0-18.0); iSTAT Ionized Calcium 1.14 mmol/l (1.12-1.32); iSTAT Potassium 3.3 mmol/L (3.3-5.0)
[2024-03-26 11:00] LABS: BUN Creatinine Ratio 19.4 (10-20); Creatinine Clr Calc Pharmacy 62.3 ml/min; Magnesium 1.8 mg/dl (1.7-2.4); Potassium 3.7 mmol/L (3.5-5.1)
[2024-03-26 11:05] LABS: Troponin I High Sensitivity 14.4 pg/ml (0-20)
--- NOTE | 2024-03-26 11:13 | CT Scan Report ---
CT facial bones w con HISTORY: 83 years-old Male nasal/maxillary cellulitis/abscess acute facial pain with soft tissue swe lling COMPARISON: None TECHNIQUE: Multiple axial CT images of the facial bones were obtained with IV contrast. A dose loweri ng technique was used consistent with the principals of OPAL. FINDINGS: The imaged intracranial structures demonstrate no acute abnormality. The imaged vasculature of the ne ck is within normal limits. Atherosclerosis of the carotid arteries. Prior bilateral lens repair. [place] air cells and middle ear cavities are clear. Prior partial ethmoidectomy with mild mucosal thick ening of the residual ethmoid air cells. There is a small focus of polypoid coastal thickening within the inferior right maxillary sinus. Multilevel degenerative changes of the cervical spine. Patent airway. Subcentimeter calcifications of the left parotid gland. No lymphadenopathy. There is s ubcutaneous edema and enhancement involving the right nasal fold with a centrally hypodense periphera lly enhancing 1.2 x 0.5 x 0.8 cm lesion on image 146 series 3. IMPRESSION: 1. Findings suggestive of right nasal fold cellulitis with 1.2 cm probable abscess. A peripherally en hancing soft tissue mass could appear similarly however considered less likely. 2. No lymphadenopathy. 3. Patent airway. ACT 112: Negative or not required by law. The above report was generated using voice recognition software. It may contain grammatical, syntax o r spelling errors. Electronically signed by: Ozzie Zhao M.D. 03/26/2024 11:10 AM
[2024-03-26 11:15] LABS: Influenza A virus by PCR Negative (Neg); Influenza B virus by PCR Negative (Neg); RSV by PCR Negative (Neg); SARS CoV2 RNA(COVID-19) Ceph NEGATIVE (Negative)
[2024-03-26] MEDS ORDERED: VANCOMYCIN CONSULT ACTIVE PRN (11:26)
[2024-03-26] MEDS: HYDROmorphone INJ 0.5 MG/0.5 ML SYR IV STA (11:41)
[2024-03-26] MEDS: AMPICILLIN/SULBACTAM SOD 3,000 MG/100 ML BAG IV STA (11:47)
--- NOTE | 2024-03-26 11:51 | History & Physical Report ---
Date of Service March 26, 2024 Assessment & Plan (1) Nasal abscess: (2) Cellulitis of nose: Plan Nikolas Silvestre is an 83y/o M with PMHx significant for chronic diastolic heart failure, chronic respiratory failure with hypoxia, DEX intolerant to BiPAP, severe mitral regurgitation s/p MitraClip repair, permanent atrial fibrillation s/p Watchman device placement, CAD, severe tricuspid regurgitation, HTN, BPH, gout, aortic root enlargement, history of CVA and anxiety/mood disorder who presented to the ED for evaluation of a right-sided nasal infection and pain. He was found to have right nasal fold cellulitis with abscess formation on admission. Right Nasal Fold Cellulitis & Abscess: No leukocytosis. RVP and procalcitonin both negative. Vitals stable, no evidence of sepsis. Face CT revealed findings suggestive of right nasal fold cellulitis with 1.2cm probable abscess. ENT surgery was consulted. ED provider spoke with the ENT surgeon on-call, Dr. Andre Platt, whom recommended proceeding with IV antibiotic therapy for now without any emergent need for surgical intervention. The abscess may or may not need to be drained later on depending on the patient's clinical course. S/p IV vancomycin + Unasyn in the ED. MRSA screen positive, therefore will continue with IV vancomycin + Unasyn for now. Blood culture pending. UA also pending. Pain control PRN. Isolation precautions given positive MRSA screen. Probiotic added. Chronic Hypoxic Respiratory Failure: On 2L via NC at baseline, will continue. Monitor respiratory status closely. Persistent Atrial Fibrillation S/P Watchman Procedure: Continue home metoprolol succinate, continuous cardiac monitoring. Prediabetes: Hemoglobin A1c was 5.6% on 07/02/2022. Will repeat his hemoglobin A1c in the AM, follow. Chronic Diastolic Heart Failure, HTN & H/O CVA Severe Mitral Regurgitation S/P Surgery, Tricuspid Regurgitation & Peripheral Vascular Disease: CXR shows cardiomegaly with pulmonary vascular congestion and probable trace pleural effusions with mild bibasilar densities favoring atelectasis. Echocardiogram from 10/18/2023 --> mildly increased concentric LV wall thickness, LVEF of 55 to 59%, severely enlarged left atrium, mild mitral regurgitation and mild tricuspid regurgitation. Monitor volume status closely with strict I's and O's plus daily weights. Patient is down 2kg (99kg to 97kg) from his previous admission. Continue home furosemide, euvolemic on examination. Also can continue home Plavix and ASA. Patient with history of failing just ASA therapy in setting of stroke, hence long-term DAPT candidate given not on oral anticoagulation therapy. Encourage incentive spirometer use. Other Chronic Medical Conditions: BPH, seasonal allergies, gout, GERD, anxiety/mood disorder --> Can continue home medications for these specific conditions. DVT Prophylaxis: SQ Lovenox Code Status: DNR/DNI - As per discussion with the patient at bedside. PCP: Benny Waite DO Disposition: Admit to Med/Surg + Telemetry - PT/OT evaluations pending for routine discharge planning needs. Patient seen in collaboration with Dr. Wagner. Please see addendum. I spent a total of 55 minutes coordinating, documenting, and providing care for this patient excluding time spent in the performance of separately billed services. This included personally reviewing all current laboratories and imaging studies, medical reconciliation, outpatient chart review and discussion with specialists. This chart was completed in part utilizing Speech Voice Recognition Software. Grammatical errors, random word insertions, pronoun errors, and incomplete sentences are an occasional consequence of this system due to software limitations, ambient noise, and hardware issues. Any formal questions or concerns about the content, text, or information contained within the body of this dictation should be directly addressed to the provider for clarification. History of Present Illness Chief Complaint: Right-Sided Nasal Infection & Pain Primary Care Provider: Benny Waite DO Nikolas Silvestre is an 83y/o M with PMHx significant for chronic diastolic heart failure, chronic respiratory failure with hypoxia, DEX intolerant to BiPAP, severe mitral regurgitation s/p MitraClip repair, permanent atrial fibrillation s/p Watchman device placement, CAD, severe tricuspid regurgitation, HTN, BPH, gout, aortic root enlargement, history of CVA and anxiety/mood disorder who presented to the ED for evaluation of a right-sided nasal infection and pain. History obtained from patient and associated chart review. Patient with right nare inflammation, swelling, erythema and pain that has progressively gotten worse over the past 3 days. He mentions that he first noticed a small pimple- like formation on the right side of his nose about a week or so ago. He does endorse a runny nose however he mentions that it is entirely too painful to try and blow his nose. He has been attempting to use warm compresses without much improvement. He has not noticed any drainage from the area. Denies any fevers, chills or body aches. He wears 2L of supplemental O2 at baseline. No increasing SOB or chest pain that he recalls. He does currently have a headache but otherwise denies any other neurological concerns. Allergies Allergy/AdvReac Type Severity Reaction Status Date / Time adhesive Allergy Mild BLISTER Verified 03/26/24 10:35 SKIN levofloxacin [From Levaquin] Allergy Unknown CAN'T Verified 03/26/24 10:35 REMEMBER sertraline AdvReac Severe hallucinati Verified 03/26/24 10:35 ons duloxetine [From Cymbalta] AdvReac Intermediate confusion Verified 03/26/24 10:35 Home Medications Medication Instructions Recorded Confirmed Type finasteride 5 mg tablet 5 mg PO PM 06/09/21 03/26/24 History acetaminophen 500 mg tablet 1,000 mg PO AMPM 07/13/23 03/26/24 History allopurinol 300 mg tablet 300 mg PO QAM 07/13/23 03/26/24 History aspirin 81 mg chewable tablet 81 mg PO QAM 07/13/23 03/26/24 History docusate sodium 100 mg capsule 100 mg PO BID 07/13/23 03/26/24 History clopidogrel 75 mg tablet 75 mg PO DAILY 08/26/23 03/26/24 History furosemide 20 mg tablet (Lasix) 40 mg PO QAM 12/04/23 03/26/24 History ketoconazole 2 % topical cream 1 applic topical UD PRN Itching 12/04/23 03/26/24 History gabapentin 300 mg capsule 300 mg PO TID #90 caps 12/14/23 03/26/24 Rx meclizine 12.5 mg tablet 12.5 mg PO BID PRN Dizziness #30 12/14/23 03/26/24 Rx tabs metoprolol succinate 25 mg 25 mg PO QAM #30 tabs 12/14/23 03/26/24 Rx tablet,extended release 24 hr pantoprazole 40 mg tablet,delayed 40 mg PO QAM #30 tabs 12/14/23 03/26/24 Rx release quetiapine 25 mg tablet 12.5 mg (1/2 x 25 mg) PO HS #30 12/14/23 03/26/24 Rx tabs rosuvastatin 20 mg tablet 20 mg PO QAM #30 tabs 12/14/23 03/26/24 Rx azelastine 137 mcg (0.1 %) nasal 2 spray intranasal BID 03/26/24 03/26/24 History spray desloratadine 5 mg tablet 10 mg PO UD 03/26/24 03/26/24 History hydrocortisone acetate 25 mg 25 mg ME UD 03/26/24 03/26/24 History rectal suppository (Anucort-HC) Past Med/Surg History Problem List (Updated 03/26/24 @ 13:30 by Rosaura Suarez PA-C) Nasal abscess Cellulitis of nose Vision loss, left eye Severe tricuspid regurgitation Lip lesion BPH (benign prostatic hyperplasia) Lumbar disc disease Decompensated heart failure Multifocal PVCs with pairing (Acute) Pleural effusion (Acute) Delirium (Acute) Hypoxia (Acute) On anticoagulant therapy (Acute) eliquis bid Encounter for pre-operative examination Lumbar spinal stenosis (Acute) Achilles tendonitis, bilateral Plantar fasciitis, bilateral History of amputation of left hand History of colonoscopy 2020 Sleep apnea does not use bipap as ordered Medical History Chronic hypoxic respiratory failure, on home oxygen therapy Visual hallucinations AMS (altered mental status) CHF (congestive heart failure) Atrial fibrillation on eliquis bid--follows with Dr. Barraza HTN (hypertension) Mitral regurgitation Presence of Watchman left atrial appendage closure device Occipital stroke Osteoarthritis History of kidney stones Rectal bleeding reason for scheduled colonoscopy Surgical History S/P TURP H/O cystoscopy H/O mitral valve repair Amputation of left hand History of lumbar discectomy History of appendectomy History of tooth extraction all top teeth removed History of tonsillectomy and adenoidectomy History of bilateral cataract extraction 2020 Family History Other No family history of adverse response to anesthesia No pertinent family history Social History Smoking Status: Never smoker Tobacco Type: Cigarettes Second Hand Exposure: No; Do You Dip or Chew Tobacco: No; Hx Alcohol Use: No Hx Substance Use: No Preferred Language: Persian Communication Ability: Effective Memory Care Director Required: No Beliefs That Will Affect Care: None Current Living Situation: Alone Current Living Situation Comment: Has dementia Feels Safe at Home: Yes Assistive Devices: Cane, Oxygen - Continuous and Walker Review of Systems Review of Systems: At least ten systems reviewed and negative, except as noted in the HPI. Physical Exam Physical Exam: Please refer to Dr. Wagner's addendum for physical examination findings. Results & Data Results & Data Vital Signs (Past 12 Hours) Vital Signs Temp Pulse Resp BP Pulse Ox O2 Del Method O2 Flow Rate 03/26/24 09:51 95 Nasal Cannula 2 03/26/24 09:49 36.5 C 100 H 16 154/127 H 89 L Room Air Laboratory Results Short CBC 03/26/24 Range/Units 10:23 WBC 10.08 (4.8-10.8) K/ul Hgb 15.0 (14.0-18.0) g/dl Hct 43.6 (42.0-52.0) % Plt Count 158 (130-400) K/uL BMP 03/26/24 10:23 Sodium 139 Potassium 3.7 Chloride 99 Carbon Dioxide 35 H BUN 19 Creatinine 0.98 Glucose 146 H Calcium 9.[address] 03/26/24 09:58 CT facial bones w con HISTORY: 83 years-old Male nasal/maxillary cellulitis/abscess acute facial pain with soft tissue swelling COMPARISON: None TECHNIQUE: Multiple axial CT images of the facial bones were obtained with IV contrast. A dose lowering technique was used consistent with the principals of ALARA. FINDINGS: The imaged intracranial structures demonstrate no acute abnormality. The imaged vasculature of the neck is within normal limits. Atherosclerosis of the carotid arteries. Prior bilateral lens repair. Mastoid air cells and middle ear cavities are clear. Prior partial ethmoidectomy with mild mucosal thickening of the residual ethmoid air cells. There is a small focus of polypoid coastal thickening within the inferior right maxillary sinus. Multilevel degenerative changes of the cervical spine. Patent airway. Subcentimeter calcifications of the left parotid gland. No lymphadenopathy. There is subcutaneous edema and enhancement involving the right nasal fold with a centrally hypodense peripherally enhancing 1.2 x 0.5 x 0.8 cm lesion on image 146 series 3. IMPRESSION: 1. Findings suggestive of right nasal fold cellulitis with 1.2 cm probable abscess. A peripherally enhancing soft tissue mass could appear similarly however considered less likely. 2. No lymphadenopathy. 3. Patent airway. ACT 112: Negative or not required by law. The above report was generated using voice recognition software. It may contain grammatical, syntax or spelling errors. Electronically signed by: Ozzie Zhao M.D. 03/26/2024 11:10 AM Chest X-Ray 03/26/24 09:59 XR chest 1V portable HISTORY: 83 years-old Male hypoxia acute hypoxia COMPARISON: 12/04/2023 TECHNIQUE: AP view of the chest FINDINGS: Cardiac silhouette is enlarged. Pulmonary vascular congestion. Surgical clips project over the left heart border. No pneumothorax. Probable trace pleural effusions with mild bibasilar densities. IMPRESSION: 1. Cardiomegaly with pulmonary vascular congestion. 2. Mild bibasilar opacities favor atelectasis. ACT 112: Negative or not required by law. The above report was generated using voice recognition software. It may contain grammatical, syntax or spelling errors. Electronically signed by: Ozzie Zhao M.D. 03/26/2024 10:40 AM Medications Administered Discontinued Medications Fentanyl Citrate (Fentanyl Citrate Pf 100 Mcg/2 Ml Vial) 50 mcg IV NOW STA Stop: 03/26/24 09:59 Last Admin: 03/26/24 10:35 Dose: 50 mcg Documented By: NA Hydromorphone HCl (Hydromorphone Inj 0.5 Mg/0.5 Ml Syr) 0.5 mg IV NOW STA Stop: 03/26/24 11:35 Last Admin: 03/26/24 11:41 Dose: 0.5 mg Documented By: JUDSON Ioversol (Optiray 320 100ml) 94 ml IV ONCE ONE Stop: 03/26/24 10:46 Last Admin: 03/26/24 10:45 Dose: 94 ml Documented By: JAR Code Status & VTE Plan Code Status DNR/DNI - No Resuscitation Supervising Physician Co-Signing Physician Notes Patient is an 83-year-old male with history of A-fib S/P watchman's procedure, coronary artery disease, peripheral vascular disease, hypertension, severe MR S/P repair, diastolic heart failure, BPH and other medical problems presents with history of right nasal fold/facial pain, swelling, erythema which is gradually worsening since 1 week duration. Patient initially noted to have a pimple which later burst leading to significant tenderness, erythema, swelling. Patient denies any insect bite, trauma. He admits to have some rhinitis but denies any fever, chills, chest pain, dyspnea. Please review HPI for complete details of presentation. I personally reviewed blood work and imaging studies. Blood work fairly within normal limits with no signs of sepsis. Glucose elevated at 150. Normal procalcitonin, lactate levels. Urinalysis pending. Serology for COVID, flu, RSV negative. Nasal MRSA positive. Facial CT suggest jacinto of nasal fold cellulitis with probable abscess. Chest x-ray showed mild atelectasis with some pulmonary vascular congestion. ED physician discussed with ENT on-call who recommended to continue IV antibiotics and watch for response for now. Physical Exam: Vitals signs as noted above General Appearance:Obese, no apparent distress Head: normocephalic, Atraumatic, + right nasal fold/nose erythema, swelling, tender,+ pustule Eyes: normal inspection, EOMI Neck: supple, Trachea midline Respiratory/Chest: Decreased breath sounds, CTA, No accessory muscle use Cardiovascular: Irregularly irregular, No murmur Abdomen/GI:Soft, Non tender, Bowel sounds present, + abdominal hernia Extremities/Musculoskeletal:normal inspection, no edema, +Left hand amputation Neurologic/Psych:AAOX3, grossly no focal neurological deficits Skin: normal color, warm Facial cellulitis/abscess Hypertensive urgency--situational + Nasal MRSA No signs of sepsis Blood cultures pending Continue Donna Gonzalezsyn If no improvement, discuss ENT/oral maxillary surgery for possible I&D Pain control Incentive spirometry PT OT as able I personally interviewed and examined at bedside. Patient's care is coordinated with Rosaura Suarez PA-C. I have reviewed the advanced practitioner's documentation, and I agree with plan of care. Please refer to the documentation above for details of patient's presentation and for discussion of other issues. I spent a total [id number] coordinating, documenting, and providing care for this patient excluding time spent in the performance of separately billed services.
--- OUTSIDE RECORDS SUMMARY | 2024-03-26 13:20 | External Medical Summary | Summary of Care ---
Author Name Unknown Organization [facility] Address [address] [place] [address] Phone [phone] Care Team Providers Care Otolaryngology Surgeon Name Role Phone Benny Waite DO Primary Care Provider [phone] Reason for Visit * Reason Onset Date Comments [facility]: Maintenance 03/26/2024 Encounter Details Date Type Department Care Team (Late st Contact Info) Description 03/26/2024 11:00 AM EDT Scheduled Telephone [facility] [address] [place] [address] [facility], Nurse [facility] [address] [place] [address] Allergies Active Allergy Reactions Criticality Noted Date Comments Adhesive Tape 02/04/2017 Duloxetine High 07/13/2023 Other Reaction(s): confusion Levofloxacin 09/01/2019 documented as of this encounter (statuses as of 03/26/2024) Medications Medication Sig Dispensed Refills Start Date [...] 137 MCG/SPRAY Nasal SolutionIndication s:Allergies Administer 1 Cadwell into each nostril 2 times a day [...] as of this encounter (statuses as of 03/26/2024) Active Problems Problem Noted Date Diagnosed Date [...] MVR (mitral valve repair) 11/16/2022 Atherosclerosis of stebbins co ronary artery without angina pectoris 08/11/2022 Severe tricuspid regurgitation 08/11/2022 Gout, arthropathy 07/20/2022 Presence of Watchman left atrial appendage closu re device 02/05/2022 Permanent atrial fibrillation 12/22/2021 Overview: Added automatically from request for surgery [id number] Last Assessment & Plan: S/p Watchman Current [...] as of this encounter (statuses as of 03/26/2024) Resolved Problems Problem Noted Date Diagnosed Date [...] as of this encounter (statuses as of 03/26/2024) Immunizations Name Administration Dates Next Due COVID-19 mRNA, LNP-s, No Pre serve, 2-Dose Series (Moderna) 08/20/2020,07/17/2020 COVID-19 mRNA, LNP-s, No Pre serve, 2-Dose Series (Pfizer) 05/14/2021 COVID-19, LNP-s, No Preserve , Robbie-sucrose, Ages 12+ (Pfizer) 11/04/2021 COVID-19, MRNA-LNP, 23-24, P F, 30 MCG/0.3 mL, 12 YRS AND ABOVE, IM (Automsoft-ComirnatKingsoft Cloud) 11/29/2023,04/16/2023 Covid-19, Mrna, Lnp-s, Pf, B ivalent, [...] Telephone Encounter - Micheline Medrano RN - 03/26/2024 10:50 AM EDT Images from the original note were not included. [facility] Remote Patient Monitoring Unable to contact patient: Trigger type: Abnormal reading(s): Device(s) Triggered: AMC (Advanced Monitored Caregiving): Pulse Rate: 107 MERLINE Iverson Registered Nurse Navigator Triage [facility] documented in this encounter Plan of Treatment Upcoming Encounters Date Type Department Care Team (Late st Contact Info) Description 03/27/2024 5:30 PM EDT Home Visit [facility] [address] [place] [address] Myrtle Allen RN [address] [place] [address] 04/04/2024 8:00 AM EDT Office Visit Family Practice [address] [facility] [place] [address] [facility] [address] Benny Waite, DO [address] [place] [address] 04/13/2024 8:30 AM EDT Office Visit Orthopaedics, [place] [address] [place] [address] Josue Espinosa MD [address] [place] [address] 04/25/2024 1:40 PM EST Telemedicine [facility] [address] [place] [address] Yadira Omalley CRNP [address] [facility] [place] [address] Ines Castro, [facility] [address] [place] [address] 05/24/2024 9:15 AM EST Hospital Encounter [facility], Operating Room [facility] [address] [place] [phone] Amador Christian, [address] [place] [phone] 05/24/2024 9:15 AM EST - 05/24/2024 9:40 AM EST Surgery OR [facility], Operating Room [facility] [address] [place] [id number] Amador Christian, DO [address] [place] [id number] INJECTION SPINE LUMBAR OR SACRAL 07/12/2024 8:00 AM EST Office Visit Cardiology, [facility] [address] [place] [address] Júnior Coppola PA-C [address] [place] [address] 08/14/2024 10:00 AM EST Office Visit Cardiology, [facility] [address] [place] [address] Casimiro Barraza MD [address] [place] [address] Scheduled Procedures Name Priority Associated Diagnoses Date/Ti [...] this encounter Medical Devices Implanted Type Area Charge Nurse Device Identifier Shelf Expiration Date Model / Serial / Lot Device Watchman Flx 35mm - [id number] Implanted:Qty: 1 on 02/05/2022 by Diamond Teran IV, MD at [facility] [employer] : INTRV CARD [id number] 10/20/2024 [id number] / / [id number] Cath Thermodilution 6fr - [id number] Implanted:Qty: 1 on 07/31/2022 by Franco Mcgregor MD at [facility] [employer] [id number] 04/30/2024 [id number] / / [id number] Mirtaclip G4 - [id number] Implanted:Qty: 1 on 11/16/2022 at [facility] [employer] 06/25/2023 [id number] / / [id number] Clip Delivery Sytem G4 Xtw - [id number] Implanted:Qty: 1 on 11/16/2022 at [facility] [employer] [id number] 08/10/2023 [id number] / / [id number] Clip Delivery Sytem G4 Xtw - [id number] Implanted:Qty: 1 on 11/16/2022 at [facility] [employer] [id number] 09/10/2023 [id number] / / [id number] documented as of this encounter Advance [...] and were consensually agreed upon. Care Teams Otolaryngology Surgeon Relationship Specialty Start Date End Date Benny Waite DO [address] [facility] [place] [address] PCP - General Internal Medicine 11/25/23 documented as of this encounter
[2024-03-26] MEDS ORDERED: POLYETHYLENE (MIRALAX) 17 GM PACK PO PRN (13:39)
[2024-03-26] MEDS ORDERED: ONDANSETRON INJ 2 MG/ML 2 ML VIAL IV PRN (13:39)
[2024-03-26] MEDS ORDERED: AMPICILLIN/SULBACTAM SOD 1,500 MG/100 ML BAG IV SCH (13:39)
[2024-03-26] MEDS ORDERED: ACETAMINOPHEN 325 MG TAB PO PRN (13:39)
[2024-03-26] MEDS: VANCOMYCIN HCL 2,000 MG in SODIUM CHLORIDE 0.9% 500 ML IV ONE (14:08)
--- NOTE | 2024-03-26 14:19 | Pharmacy Report ---
Pharmacy PK ABX Note - Date of Service March 26, 2024 - Assessment and Plan Assessment 83 year old M receiving vancomycin and Unasyn for treatment of nasal cellulitis/abscess. MRSA nasal (+), blood cultures pending. Renal function stable. Day #1 of antimicrobial therapy. Plan Vancomycin * Loading dose: 2000 mg IV x 1 * Maintenance dose: 1500 mg IV every 24 hours * Regimen is predicted to achieve target AUC/SARA of 400-600 mg/L.hr * Will obtain a level after ~ 48h of therapy if vancomycin continued. Pharmacy will continue to follow and will adjust dose/frequency as necessary. Thank you. Pharmacy has transitioned to AUC monitoring for vancomycin. AUC/SARA is the preferred PK/PD target and is associated with decreased risk of nephrotoxicity compared to traditional trough targets.
[2024-03-26] MEDS: GABAPENTIN 300 MG CAP PO SCH (14:42)
[2024-03-26] MEDS: ADVANCED PROBIOTIC 625 MG CAPSULE PO SCH (14:42)
[2024-03-26] MEDS: FUROSEMIDE 40 MG TAB PO SCH (14:42)
[2024-03-26] MEDS: LORATADINE 10 MG TAB PO SCH (14:43)
[2024-03-26] MEDS: MoRPHine SULFATE 2 MG/ML CARP IV PRN (14:43)
[2024-03-26] MEDS: AMPICILLIN/SULBACTAM SOD 3,000 MG/100 ML BAG IV SCH (17:35)
[2024-03-26] MEDS: QUEtiapine FUMARATE 25 MG TABLET PO SCH (20:06)
[2024-03-26] MEDS: DOCUSATE SODIUM 100 MG CAP PO SCH (20:06)
[2024-03-26] MEDS: COUGH DROP (SUGAR FREE) LOZ 24 LOZ/1 BOX BUCCAL PRN (20:06)
[2024-03-26] MEDS: FINASTERIDE 5 MG TAB PO SCH (20:07)
[2024-03-26] MEDS: AZELASTINE HCL 0.1% NASAL 200 SPRAYS/27,400 MCG BTL SCH (20:07)
[2024-03-26 23:43] LABS: Appearance Urine Clear (Clear); Bacteria Urine Automated None Seen (None Seen); Bilirubin Urine Negative (Negative); Blood Urine Negative (Negative); Cast Urine Automated 0-2 /lpf (0-2); Color Urine Yellow; Epithelial Cell Urine Auto 0-2 /hpf (0-2); Glucose Urine UA Negative (Negative); Ketones Urine Trace (Negative); Leukocyte Esterase Urine Negative (Negative); Nitrite Urine Negative (Negative); Protein Urine 1+ (Negative); RBC Urine Automated 0-2 /hpf (0-2); Urobilinogen Urine Negative (Negative); WBC Urine Automated 0-5 /hpf (0-5); pH Urine 6.5 (4.5-7.5)
[2024-03-27] MEDS: VANCOMYCIN HCL 1,500 MG in SODIUM CHLORIDE 0.9% 500 ML IV SCH (04:07)
[2024-03-27 06:45] LABS: Hematocrit (blood only) 38.2 % (42.0-52.0); Hemoglobin 12.9 g/dl (14.0-18.0); Mean Corpuscular Hemoglobin 36.2 pg (25.0-34.0); Mean Corpuscular Hgb Conc 33.8 g/dL (32.0-36.0); Mean Corpuscular Volume 107.3 fL (80.0-100.0); Mean Platelet Volume 9.7 fL (9.4-12.4); Platelet Count 137 K/uL (130-400); RDW Coefficient of Variation 14.2 % (11.5-14.5); RDW Standard Deviation 56.4 fL (36.4-46.3); Red Blood Count 3.56 M/uL (4.70-6.10); White Blood Count 10.91 K/ul (4.8-10.8)
[2024-03-27 06:57] LABS: BUN Creatinine Ratio 19.4 (10-20); Calcium 8.1 mg/dl (8.6-10.3); Creatinine Clr Calc Pharmacy 59.3 ml/min; Magnesium 1.7 mg/dl (1.7-2.4); Potassium 3.4 mmol/L (3.5-5.1)
[2024-03-27] MEDS: CLOPIDOGREL BISULFATE 75 MG TAB PO SCH (07:38)
[2024-03-27] MEDS: METOPROLOL SUCC 25MG EXT REL TAB PO SCH (07:38)
[2024-03-27] MEDS: PANTOprazole 40 MG TAB PO SCH (07:38)
[2024-03-27] MEDS: ENOXAPARIN INJ 40 MG/0.4 ML SYR SQ SCH (07:39)
[2024-03-27] MEDS: ROSUVASTATIN CALCIUM 20 MG TAB PO SCH (07:39)
[2024-03-27] MEDS: allopurinoL 300 MG TAB PO SCH (07:39)
[2024-03-27] MEDS: ASPIRIN 81 MG CHEW PO SCH (07:39)
[2024-03-27 07:47] LABS: Estimated Average Glucose 123 mg/dl; Hemoglobin A1C 5.9 % (4.5-5.6)
[2024-03-27] MEDS: POTASSIUM CHLORIDE CRTAB 20 MEQ TABCR PO STA ×2 (08:26→20:25)
[2024-03-27] MEDS: INFLUENZA VACC TS2024-25(65y+)/PF (IIV3) 0.5mL Syr IM ONE (12:18)
--- NOTE | 2024-03-27 14:10 | Hospitalist Progress Note ---
Date of Service March 27, 2024 Assessment & Plan (1) Nasal abscess: (2) Cellulitis of nose: Plan Nikolas Silvestre is an 83y/o M with PMHx significant for chronic diastolic heart failure, chronic respiratory failure with hypoxia, DEX intolerant to BiPAP, severe mitral regurgitation s/p MitraClip repair, permanent atrial fibrillation s/p Watchman device placement, CAD, severe tricuspid regurgitation, HTN, BPH, gout, aortic root enlargement, history of CVA and anxiety/mood disorder who presented to the ED for evaluation of a right-sided nasal infection and pain. He was found to have right nasal fold cellulitis with abscess formation on admission. Right Nasal Fold Cellulitis & Abscess: No leukocytosis. RVP and procalcitonin both negative. Vitals stable, no evidence of sepsis. Face CT revealed findings suggestive of right nasal fold cellulitis with 1.2cm probable abscess. Appreciate ENT surgery input and recommendation Awaiting culture and sensitivity from the wound Advised to have repeat CAT scan of the face Will continue current antibiotic-.Unasyn and vancomycin MRSA screen has been positive Chronic Hypoxic Respiratory Failure: On 2L via NC at baseline, will continue. Monitor respiratory status closely. Persistent Atrial Fibrillation S/P Watchman Procedure: Continue home metoprolol succinate, continuous cardiac monitoring. Prediabetes: Hemoglobin A1c was 5.6% on 07/02/2022. Will repeat his hemoglobin A1c in the AM, follow. Chronic Diastolic Heart Failure, HTN & H/O CVA Severe Mitral Regurgitation S/P Surgery, Tricuspid Regurgitation & Peripheral Vascular Disease: Echocardiogram from 10/18/2023 --> mildly increased concentric LV wall thickness, LVEF of 55 to 59%, severely enlarged left atrium, mild mitral regurgitation and mild tricuspid regurgitation. Monitor volume status closely with strict I's and O's plus daily weights. Patient is down 2kg (99kg to 97kg) from his previous admission. Continue home furosemide, euvolemic on examination. Also can continue home Plavix and ASA. Patient with history of failing just ASA therapy in setting of stroke, hence long-term DAPT candidate given not on oral anticoagulation therapy. Encourage incentive spirometer use. Other Chronic Medical Conditions: BPH, seasonal allergies, gout, GERD, anxiety/mood disorder --> Can continue home medications for these specific conditions. DVT Prophylaxis: SQ Lovenox Code Status: DNR/DNI - As per discussion with the patient at bedside. PCP: Benny Waite, DO Disposition: Admit to Med/Surg + Telemetry - PT/OT evaluations pending for routine discharge planning needs. Admission and Anticipated Discharge Date Admission Date: March 26, 2024 Subjective 03/27/2024 The patient was seen and examined in medical telemetry unit He has been complaining of pain in the nose with redness and swelling specially on the right side Denies any fever and or chills no problem with breathing Review of Systems Review of Systems: All systems reviewed and are unremarkable except as noted below Physical Exam Physical Exam: Lying in bed without any acute distress Constitutional: well developed, well nourished, + ill appearing and + obese Eyes: PERRL, conjunctivae normal, anicteric sclerae ENMT: external ear and nose normal, oropharynx normal Nose: + external nose abnormality (Swelling and redness involving the right side of the nose ) Neck: trachea midline, no thyromegaly Respiratory: no respiratory distress Auscultation: + diminished lung sounds and + crackles (Minimal crackles at the bases) Cardiovascular: Rate/Rhythm: regular rate and regular rhythm; not tachycardic Heart Sounds: normal S1 and normal S2; no murmur Extremities: + edema (Trace edema bilaterally) Gastrointestinal (Abdomen): Inspection/Auscultation: normal bowel sounds; abdomen not distended Percussion/Palpation: abdomen soft; abdomen nontender Musculoskeletal: No acute arthritis involving any of the joint Neurologic: normal touch/pain/proprioception and moves all extremities; no focal motor deficits Lymphatic: no cervical or axillary lymphadenopathy Results & Data Results & Data Vital Signs (Past 12 Hours) Vital Signs Temp Pulse Pulse Resp BP Pulse Ox O2 Del Method 03/27/24 11:33 36.8 C 87 18 106/70 94 Nasal Cannula 03/27/24 10:53 95 H 03/27/24 07:55 37.0 C 102 H 20 121/71 95 Nasal Cannula 03/27/24 07:45 Nasal Cannula 03/27/24 07:00 92 H 03/27/24 03:06 36.8 C 89 18 108/71 91 Nasal Cannula O2 Flow Rate 03/27/24 11:33 2 03/27/24 10:53 03/27/24 07:55 3 03/27/24 07:45 2 03/27/24 07:00 03/27/24 03:06 2 Laboratory Results Short CBC 03/27/24 Range/Units 06:13 WBC 10.91 H (4.8-10.8) K/ul Hgb 12.9 L (14.0-18.0) g/dl Hct 38.2 L (42.0-52.0) % Plt Count 137 (130-400) K/uL BMP 03/27/24 06:13 Sodium 139 Potassium 3.4 L Chloride 100 Carbon Dioxide 35 H BUN 20 Creatinine 1.03 Glucose 105 H Calcium 8.1 L Urine 03/26/24 Range/Units 22:47 Urine Color Yellow Urine Appearance Clear (Clear) Urine pH 6.5 (4.5-7.5) Ur Specific [place] 1.040 H (1.000-1.030) Urine Protein 1+ H (Negative) Urine Glucose (UA) Negative (Negative) Medications Administered Current Inpatient Medications Acetaminophen (Acetaminophen 325 Mg Tab) 650 mg PO Q4H PRN PRN Reason: pain/fever Stop: 04/25/24 13:38 Allopurinol ([facility]ol 300 Mg Tab) [facility] [place] Stop: 04/26/24 08:59 Last Admin: 03/27/24 07:39 Dose: 300 mg Aspirin (Aspirin 81 Mg Chew) 81 mg PO QAM [facility] Stop: 04/26/24 08:59 Last Admin: 03/27/24 07:39 Dose: 81 mg Azelastine HCl (Azelastine Hcl 0.1% Nasal 200 Sprays/27,400 Mcg Btl) 2 sprays NA BID [facility] Stop: 04/25/24 20:59 Last Admin: 03/27/24 07:43 Dose: 2 sprays Clopidogrel Bisulfate (Clopidogrel Bisulfate 75 Mg Tab) 75 mg PO DAILY [facility] Stop: 04/26/24 08:59 Last Admin: 03/27/24 07:38 Dose: 75 mg Docusate Sodium (Docusate Sodium 100 Mg Cap) 100 mg PO BID [facility] Stop: 04/25/24 20:59 Last Admin: 03/27/24 07:43 Dose: 100 mg Enoxaparin Sodium (Enoxaparin Inj 40 Mg/0.4 Ml Syr) 40 mg SQ QAM [facility] Stop: 04/26/24 08:59 Last Admin: 03/27/24 07:39 Dose: 40 mg Finasteride (Finasteride 5 Mg Tab) 5 mg PO PM [facility] Stop: 04/25/24 20:59 Last Admin: 03/26/24 20:07 Dose: 5 mg Furosemide (Furosemide 40 Mg Tab) 40 mg PO QAM [facility] Stop: 04/25/24 13:38 Last Admin: 03/27/24 07:39 Dose: 40 mg Gabapentin (Gabapentin 300 Mg Cap) 300 mg PO TID [facility] Stop: 04/25/24 13:59 Last Admin: 03/27/24 13:01 Dose: 300 mg Ampicillin Sodium/Sulbactam Sodium (Unasyn) 3,000 mg in 100 mls @ 200 mls/hr IV Q6H [facility]; Protocol Stop: 04/02/24 17:59 Last Infusion: 03/27/24 13:00 Dose: Infused Vancomycin HCl 1,500 mg/ (Sodium Chloride) 530 mls @ 200 mls/hr IV Q24H [facility] Stop: 04/03/24 04:59 Last Infusion: 03/27/24 08:00 Dose: Infused Lactobacillus Acidophilus (Advanced Probiotic 625 Mg Capsule) 1,250 mg PO DAILY [facility] Stop: 04/25/24 13:38 Last Admin: 03/27/24 07:38 Dose: 1,250 mg Loratadine (Loratadine 10 Mg Tab) 10 mg PO DAILY [facility] Stop: 04/25/24 13:59 Last Admin: 03/27/24 07:38 Dose: 10 mg Menthol (Cough Drop (Sugar Free) Ap 24 Ap/1 Box) 1 ap BUCCAL TID PRN PRN Reason: Sore Throat Stop: 04/25/24 19:54 Last Admin: 03/26/24 20:06 Dose: 1 ap Metoprolol Succinate (Metoprolol Succ 25mg Ext Rel Tab) [facility] [place] Stop: 04/26/24 08:59 Last Admin: 03/27/24 07:38 Dose: 25 mg Miscellaneous Information (Vancomycin Consult Active) 1 each N/A UD PRN PRN Reason: Consult Stop: 04/25/24 11:25 Morphine Sulfate (Morphine Sulfate 2 Mg/Ml Carp) 2 mg IV Q6H PRN PRN Reason: Mod-Sev Pain (Scale 4-10) Stop: 04/09/24 13:38 Last Admin: 03/26/24 14:43 Dose: 2 mg Ondansetron HCl (Ondansetron Inj 2 Mg/Ml 2 Ml Vial) 4 mg IV Q6H PRN PRN Reason: Nausea Stop: 04/25/24 13:38 Oxycodone/Acetaminophen (Oxycodone/Acetaminophen 5mg/325mg Tab) 1 tab PO Q6H PRN PRN Reason: Pain Stop: 04/09/24 13:38 Pantoprazole Sodium (Pantoprazole 40 Mg Tab) [facility] [place] Stop: 04/26/24 08:59 Last Admin: 03/27/24 07:38 Dose: 40 mg Polyethylene Glycol (Polyethylene (Miralax) 17 Gm Pack) 17 gm PO DAILY PRN PRN Reason: Constipation Stop: 04/25/24 13:38 Quetiapine Fumarate (Quetiapine Fumarate 25 Mg Tablet) 12.5 mg PO [facility] Stop: 04/25/24 20:59 Last Admin: 03/26/24 20:06 Dose: 12.5 mg Rosuvastatin Calcium (Rosuvastatin Calcium 20 Mg Tab) [facility] [place] Stop: 04/26/24 08:59 Last Admin: 03/27/24 07:39 Dose: 20 mg
--- NOTE | 2024-03-27 15:27 | ENT Consultation ---
Date of Consultation March 27, 2024 Assessment & Plan (1) Facial cellulitis: Patient is being treated with IV antibiotic therapy. He should improve. He should have vancomycin for methicillin-resistant Staphylococcus bacteria. (2) Abscess of nose: (3) Nasal abscess: History of Present Illness Reason for Consultation: Patient is an 83-year-old male who presents with a history of swelling and redness around his nose. This started several days prior to his admission. This increased despite treatment with medication. Attending Physician: Gigi Willis MD Allergies Allergy/AdvReac Type Severity Reaction Status Date / Time adhesive Allergy Mild BLISTER Verified 03/26/24 10:35 SKIN levofloxacin [From Levaquin] Allergy Unknown CAN'T Verified 03/26/24 10:35 REMEMBER sertraline AdvReac Severe hallucinati Verified 03/26/24 10:35 ons duloxetine [From Cymbalta] AdvReac Intermediate confusion Verified 03/26/24 10:35 Home Medications Medication Instructions Recorded Confirmed Type finasteride 5 mg tablet 5 mg PO PM 06/09/21 03/26/24 History acetaminophen 500 mg tablet 1,000 mg PO AMPM 07/13/23 03/26/24 History allopurinol 300 mg tablet 300 mg PO QAM 07/13/23 03/26/24 History aspirin 81 mg chewable tablet 81 mg PO QAM 07/13/23 03/26/24 History docusate sodium 100 mg capsule 100 mg PO BID 07/13/23 03/26/24 History clopidogrel 75 mg tablet 75 mg PO DAILY 08/26/23 03/26/24 History furosemide 20 mg tablet (Lasix) 40 mg PO QAM 12/04/23 03/26/24 History ketoconazole 2 % topical cream 1 applic topical UD PRN Itching 12/04/23 03/26/24 History gabapentin 300 mg capsule 300 mg PO TID #90 caps 12/14/23 03/26/24 Rx meclizine 12.5 mg tablet 12.5 mg PO BID PRN Dizziness #30 12/14/23 03/26/24 Rx tabs metoprolol succinate 25 mg 25 mg PO QAM #30 tabs 12/14/23 03/26/24 Rx tablet,extended release 24 hr pantoprazole 40 mg tablet,delayed 40 mg PO QAM #30 tabs 12/14/23 03/26/24 Rx release quetiapine 25 mg tablet 12.5 mg (1/2 x 25 mg) PO HS #30 12/14/23 03/26/24 Rx tabs rosuvastatin 20 mg tablet 20 mg PO QAM #30 tabs 12/14/23 03/26/24 Rx azelastine 137 mcg (0.1 %) nasal 2 spray intranasal BID 03/26/24 03/26/24 History spray desloratadine 5 mg tablet 10 mg PO UD 03/26/24 03/26/24 History hydrocortisone acetate 25 mg 25 mg [place] UD 03/26/24 03/26/24 History rectal suppository (Anucort-HC) Patient History Medical History Chronic hypoxic respiratory failure, on home oxygen therapy Visual hallucinations AMS (altered mental status) CHF (congestive heart failure) Atrial fibrillation on eliquis bid--follows with Dr. Barraza HTN (hypertension) Mitral regurgitation Presence of Watchman left atrial appendage closure device Occipital stroke Osteoarthritis History of kidney stones Rectal bleeding reason for scheduled colonoscopy Surgical History S/P TURP H/O cystoscopy H/O mitral valve repair Amputation of left hand History of lumbar discectomy History of appendectomy History of tooth extraction all top teeth removed History of tonsillectomy and adenoidectomy History of bilateral cataract extraction 2020 Family History Other No family history of adverse response to anesthesia No pertinent family history Social History Smoking Status: Never smoker Tobacco Type: Cigarettes Second Hand Exposure: No; Do You Dip or Chew Tobacco: No; Hx Alcohol Use: No Hx Substance Use: No Preferred Language: Ukrainian Communication Ability: Effective Goggles Assembler Required: No Beliefs That Will Affect Care: None Current Living Situation: Alone Current Living Situation Comment: Has dementia Other Information That Helps Us Care for You: No Feels Safe at Home: Yes Safety Concerns: Feels Safe At This Time Assistive Devices: Cane, Oxygen - Continuous and Walker Physical Exam Physical Exam: On examination shows that there is redness on the skin of the nasal bridge and tip. There is swelling as well. The swelling extends beneath his right eye. He does have 2 areas where there is a purulent collection on the skin. The nose is tender to touch but I cannot feel any firmness as seen with an abscess. Results & Data Vital Signs (Past 12 Hours) Vital Signs Temp Pulse Pulse Resp BP Pulse Ox O2 Del Method 03/27/24 15:10 81 03/27/24 11:33 36.8 C 87 18 106/70 94 Nasal Cannula 03/27/24 10:53 95 H 03/27/24 07:55 37.0 C 102 H 20 121/71 95 Nasal Cannula 03/27/24 07:45 Nasal Cannula 03/27/24 07:00 92 H O2 Flow Rate 03/27/24 15:10 03/27/24 11:33 2 03/27/24 10:53 03/27/24 07:55 3 03/27/24 07:45 2 03/27/24 07:00 PG Care Time/CCT Total # of Minutes Spent Total Time Spent with Patient: Total time spent is greater than 50% in coordination of care (as documented) at patient's floor/unit and/or counseling patient: Coding Level of Care Code 12595 IN/OBS CONSULT LVL 3,45M Diagnoses Facial cellulitis L03.211 Abscess of nose J34.0
[2024-03-27] MEDS: OPTIRAY 320 100ml IV ONE (15:38)
--- NOTE | 2024-03-27 16:08 | CT Scan Report ---
CT FACIAL BONES WITH IV CONTRAST CLINICAL HISTORY: Paranasal abscess. Pain and swelling COMPARISON STUDY: Facial bone CT dated 03/26/2024. TECHNIQUE: High resolution CT scan of the facial bones is performed following the IV administration o f 94 cc of Optiray 320. Images are reviewed in the axial, sagittal, and coronal planes. IV contrast w as administered without complication. A dose lowering technique was used consistent with the principa ls of OPAL. FINDINGS: The imaged intracranial structures demonstrate no acute abnormality. The imaged vasculature of the ne ck is within normal limits. Atherosclerosis of the carotid arteries. The bony orbits are intact. Orbi alexia contents are normal as images noting bilateral ocular lens implant. The mastoid air cells are wel l pneumatized. Postsurgical changes noted in the paranasal sinuses. There is mild mucosal thickening within the ethmoid cavity in the right maxillary antrum. The imaged cervical spine appears intact not ing multilevel degenerative change Patent airway. Calcified sialoliths are seen in the left parotid gland. No lymphadenopathy. Again see n is subcutaneous edema and enhancement involving the right nasal fold with a centrally hypodense per ipherally enhancing 0.9 x 1.2 x 0.6 cm fluid collection seen on image #91 of 161. IMPRESSION: 1. There is unchanged appearance of right paranasal cellulitis with a 1.2 cm fluid collection that is typical in appearance for a small abscess. Clinical follow-up to resolution is recommended to exclud e the unlikely possibility of underlying soft tissue lesion. 2. No acute facial bone abnormality is identified. ACT 112: Negative or not required by law. Electronically signed by: Tobi Swenson M.D. 03/27/2024 4:06 PM
[2024-03-27] MEDS: LORazepam 0.5 MG TAB PO STA (20:25)
[2024-03-27] MEDS: MAGNESIUM SULFATE / D5W 1 GM/100 ML BAG IV ONE (20:25)
[2024-03-28] MEDS: oxyCODONE/ACETAMINOPHEN 5mg/325mg TAB PO PRN (02:43)
[2024-03-28 06:35] LABS: BUN Creatinine Ratio 19.4 (10-20); Blood Urea Nitrogen 18 mg/dl (6-23); Calcium 7.9 mg/dl (8.6-10.3); Carbon Dioxide 30 mmol/L (21-32); Chloride 104 mmol/L (98-107); Creatinine Clr Calc Pharmacy 66.3 ml/min; Glucose 101 mg/dl (70-99(Fasting))
[2024-03-28 07:04] LABS: Basophils # (auto) 0.03 K/uL (0.00-0.20); Basophils % (auto) 0.3 %; Eosinophils # (auto) 0.24 K/uL (0.00-0.50); Eosinophils % (auto) 2.7 %; Hematocrit (blood only) 37.2 % (42.0-52.0); Hemoglobin 12.5 g/dl (14.0-18.0); Immature Granulocytes # (auto) 0.04 K/uL (0.01-0.20); Immature Granulocytes % (auto) 0.5 %; Lymphocytes # (auto) 1.09 K/uL (1.20-3.40); Lymphocytes % (auto) 12.4 %; Mean Corpuscular Hemoglobin 36.1 pg (25.0-34.0); Mean Corpuscular Hgb Conc 33.6 g/dL (32.0-36.0); Mean Corpuscular Volume 107.5 fL (80.0-100.0); Mean Platelet Volume 9.8 fL (9.4-12.4); Monocytes # (auto) 0.88 K/uL (0.11-0.59); Neutrophils # (auto) 6.53 K/uL (1.40-6.50); Neutrophils % (auto) 74.1 %; Platelet Count 137 K/uL (130-400); RDW Coefficient of Variation 14.4 % (11.5-14.5); RDW Standard Deviation 57.1 fL (36.4-46.3); Red Blood Count 3.46 M/uL (4.70-6.10); White Blood Count 8.81 K/ul (4.8-10.8)
[2024-03-28 07:14] LABS: Magnesium 2.1 mg/dl (1.7-2.4)
--- NOTE | 2024-03-28 12:40 | History & Physical Bridge Note ---
Date of Service March 28, 2024 History & Physical Bridge Note Patient had a CT scan which shows that there is less swelling over the maxillary area. There is likely a subcutaneous abscess over the tip of the nose on that right side. Patient does feel better. Examination today shows there is much less erythema and edema. There is still 1 pustule over the tip of the nose on the right side. Impression: Patient has improved on IV medication. Results have grown staff aureus. Sensitivities are only not yet available. Plan: We will continue the same treatment. I have asked the nurse to unroof the area over the tip of the nose on the right side where there is a pustule.
--- NOTE | 2024-03-28 13:02 | Hospitalist Progress Note ---
Date of Service March 28, 2024 Assessment & Plan (1) Nasal abscess: Plan: Nikolas Silvestre is an 83y/o M with PMHx significant for chronic diastolic heart failure, chronic respiratory failure with hypoxia, DEX intolerant to BiPAP, severe mitral regurgitation s/p MitraClip repair, permanent atrial fibrillation s/p Watchman device placement, CAD, severe tricuspid regurgitation, HTN, BPH, gout, aortic root enlargement, history of CVA and anxiety/mood disorder who presented to the ED for evaluation of a right-sided nasal infection and pain. He was found to have right nasal fold cellulitis with abscess formation on admission. Right Nasal Fold Cellulitis & Abscess: No leukocytosis. RVP and procalcitonin both negative. Vitals stable, no evidence of sepsis. Face CT revealed findings suggestive of right nasal fold cellulitis with 1.2cm probable abscess. Appreciate ENT surgery input and recommendation Awaiting culture and sensitivity from the wound Advised to have repeat CAT scan of the face Will continue current antibiotic-.Unasyn and vancomycin MRSA screen has been positive Wound culture is growing a Staphylococcus speciesfurther identification and sensitivities are pending Repeat CT scan of the face showed right paranasal cellulitis with 1.2 cm fluid collection likely representing a small abscess Will get advice from infectious disease Awaiting further evaluation by ENT surgeon (2) Cellulitis of nose: Plan Other significant medical conditions are as below: Chronic Hypoxic Respiratory Failure: On 2L via NC at baseline, will continue. Monitor respiratory status closely. Has been saturating normally on 2 L nasal cannula and denies any respiratory symptoms at rest Persistent Atrial Fibrillation S/P Watchman Procedure: Continue home metoprolol succinate, continuous cardiac monitoring. heart rate remains controlled Prediabetes: Hemoglobin A1c was 5.6% on 07/02/2022. Will repeat his hemoglobin A1c - 5.9 Chronic Diastolic Heart Failure, HTN & H/O CVA Severe Mitral Regurgitation S/P Surgery, Tricuspid Regurgitation & Peripheral Vascular Disease: Echocardiogram from 10/18/2023 --> mildly increased concentric LV wall thickness, LVEF of 55 to 59%, severely enlarged left atrium, mild mitral regurgitation and mild tricuspid regurgitation. Monitor volume status closely with strict I's and O's plus daily weights. Patient is down 2kg (99kg to 97kg) from his previous admission. Continue home furosemide, euvolemic on examination. Also can continue home Jessica vix and ASA. Patient with history of failing just ASA therapy in setting of stroke, hence long-term DAPT candidate given not on oral anticoagulation therapy. Encourage incentive spirometer use. Admission chest x-ray did show cardiomegaly with mild congestive CHF So far he has a positive balance of 3850 mL Will give him an additional dose of intravenous Lasix x 1 today Other Chronic Medical Conditions: BPH, seasonal allergies, gout, GERD, anxiety/mood disorder --> Can continue home medications for these specific conditions. DVT Prophylaxis: SQ Lovenox Code Status: DNR/DNI - As per discussion with the patient at bedside. PCP: Benny Waite, DO Disposition: Admit to Med/Surg + Telemetry - PT/OT evaluations pending for routine discharge planning needs. Admission and Anticipated Discharge Date Admission Date: March 26, 2024 Subjective 03/27/2024 The patient was seen and examined in medical telemetry unit He has been complaining of pain in the nose with redness and swelling specially on the right side Denies any fever and or chills no problem with breathing 03/28/2024 The patient was seen and examined in medical telemetry unit He has been complaining of pain in the face especially around the nose on the right side mainly Denies any fever and or chills No other significant symptoms Review of Systems Review of Systems: All systems reviewed and are unremarkable except as noted below Physical Exam Physical Exam: Lying in bed without any acute distress Constitutional: well developed, well nourished, + ill appearing and + obese Eyes: PERRL, conjunctivae normal, anicteric sclerae ENMT: external ear and nose normal, oropharynx normal Nose: + external nose abnormality (Swelling and redness involving the right side of the nose ) Neck: trachea midline, no thyromegaly Respiratory: no respiratory distress Auscultation: + diminished lung sounds and + crackles (Minimal crackles at the bases) Cardiovascular: Rate/Rhythm: regular rate and regular rhythm; not tachycardic Heart Sounds: normal S1 and normal S2; no murmur Extremities: + edema (Trace edema bilaterally) Gastrointestinal (Abdomen): Inspection/Auscultation: normal bowel sounds; abdomen not distended Percussion/Palpation: abdomen soft; abdomen nontender Neurologic: normal touch/pain/proprioception and moves all extremities; no focal motor deficits Lymphatic: no cervical or axillary lymphadenopathy Results & Data Results & Data Vital Signs (Past 12 Hours) Vital Signs Temp Pulse Pulse Resp BP BP Pulse Ox 03/28/24 10:45 36.6 C 89 16 101/71 96 03/28/24 07:45 03/28/24 07:10 36.4 C L 82 18 120/79 96 03/28/24 07:00 83 03/28/24 03:13 36.5 C 87 18 118/74 96 O2 Del Method O2 Flow Rate 03/28/24 10:45 Nasal Cannula 2 03/28/24 07:45 Nasal Cannula 2 03/28/24 07:10 Nasal Cannula 2 03/28/24 07:00 03/28/24 03:13 Nasal Cannula 3 Laboratory Results Short CBC 03/28/24 03/28/24 Range/Units 05:57 06:38 WBC Cancelled 8.81 Hgb Cancelled 12.5 L Hct Cancelled 37.2 L Plt Count Cancelled 137 BMP 03/28/24 03/28/24 05:57 06:38 Sodium TNP 140 Potassium TNP 4.0 Chloride 104 Carbon Dioxide 30 BUN 18 Creatinine 0.93 Glucose 101 H Calcium 7.9 L Medications Administered Current Inpatient Medications Acetaminophen (Acetaminophen 325 Mg Tab) 650 mg PO Q4H PRN PRN Reason: pain/fever Stop: 04/25/24 13:38 Allopurinol ([facility] 300 Mg Tab) [facility] [place] Stop: 04/26/24 08:59 Last Admin: 03/28/24 07:43 Dose: 300 mg Aspirin (Aspirin 81 Mg Chew) 81 mg PO QAM [facility] Stop: 04/26/24 08:59 Last Admin: 03/28/24 07:43 Dose: 81 mg Azelastine HCl (Azelastine Hcl 0.1% Nasal 200 Sprays/27,400 Mcg Btl) 2 sprays NA BID [facility] Stop: 04/25/24 20:59 Last Admin: 03/28/24 07:44 Dose: 2 sprays Clopidogrel Bisulfate (Clopidogrel Bisulfate 75 Mg Tab) 75 mg PO DAILY [facility] Stop: 04/26/24 08:59 Last Admin: 03/28/24 07:43 Dose: 75 mg Docusate Sodium (Docusate Sodium 100 Mg Cap) 100 mg PO BID [facility] Stop: 04/25/24 20:59 Last Admin: 03/28/24 07:49 Dose: 100 mg Enoxaparin Sodium (Enoxaparin Inj 40 Mg/0.4 Ml Syr) 40 mg SQ QAM [facility] Stop: 04/26/24 08:59 Last Admin: 03/28/24 07:44 Dose: 40 mg Finasteride (Finasteride 5 Mg Tab) 5 mg PO PM [facility] Stop: 04/25/24 20:59 Last Admin: 03/27/24 20:37 Dose: 5 mg Furosemide (Furosemide 40 Mg Tab) 40 mg PO QAM [facility] Stop: 04/25/24 13:38 Last Admin: 03/28/24 07:43 Dose: 40 mg Gabapentin (Gabapentin 300 Mg Cap) 300 mg PO TID [facility] Stop: 04/25/24 13:59 Last Admin: 03/28/24 07:44 Dose: 300 mg Ampicillin Sodium/Sulbactam Sodium (Unasyn) 3,000 mg in 100 mls @ 200 mls/hr IV Q6H [facility]; Protocol Stop: 04/02/24 17:59 Last Infusion: 03/28/24 12:06 Dose: Infused Vancomycin HCl 1,500 mg/ (Sodium Chloride) 530 mls @ 200 mls/hr IV Q24H [facility] Stop: 04/03/24 04:59 Last Infusion: 03/28/24 08:20 Dose: Infused Lactobacillus Acidophilus (Advanced Probiotic 625 Mg Capsule) 1,250 mg PO DAILY [facility] Stop: 04/25/24 13:38 Last Admin: 03/28/24 07:43 Dose: 1,250 mg Loratadine (Loratadine 10 Mg Tab) 10 mg PO DAILY [facility] Stop: 04/25/24 13:59 Last Admin: 03/28/24 07:42 Dose: 10 mg Menthol (Cough Drop (Sugar Free) Ap 24 Ap/1 Box) 1 ap BUCCAL TID PRN PRN Reason: Sore Throat Stop: 04/25/24 19:54 Last Admin: 03/26/24 20:06 Dose: 1 ap Metoprolol Succinate (Metoprolol Succ 25mg Ext Rel Tab) 25 mg PO QAM [facility] Stop: 04/26/24 08:59 Last Admin: 03/28/24 07:44 Dose: 25 mg Miscellaneous Information (Vancomycin Consult Active) 1 each N/A UD PRN PRN Reason: Consult Stop: 04/25/24 11:25 Morphine Sulfate (Morphine Sulfate 2 Mg/Ml Carp) 2 mg IV Q6H PRN PRN Reason: Mod-Sev Pain (Scale 4-10) Stop: 04/09/24 13:38 Last Admin: 03/26/24 14:43 Dose: 2 mg Ondansetron HCl (Ondansetron Inj 2 Mg/Ml 2 Ml Vial) 4 mg IV Q6H PRN PRN Reason: Nausea Stop: 04/25/24 13:38 Oxycodone/Acetaminophen (Oxycodone/Acetaminophen 5mg/325mg Tab) 1 tab PO Q6H PRN PRN Reason: Pain Stop: 04/09/24 13:38 Last Admin: 03/28/24 02:43 Dose: 1 tab Pantoprazole Sodium (Pantoprazole 40 Mg Tab) 40 mg PO QAM [facility] Stop: 04/26/24 08:59 Last Admin: 03/28/24 07:44 Dose: 40 mg Polyethylene Glycol (Polyethylene (Miralax) 17 Gm Pack) 17 gm PO DAILY PRN PRN Reason: Constipation Stop: 04/25/24 13:38 Quetiapine Fumarate (Quetiapine Fumarate 25 Mg Tablet) 12.5 mg PO HS [facility] Stop: 04/25/24 20:59 Last Admin: 03/27/24 22:33 Dose: 12.5 mg Rosuvastatin Calcium (Rosuvastatin Calcium 20 Mg Tab) 20 mg PO QAM [facility] Stop: 04/26/24 08:59 Last Admin: 03/28/24 07:42 Dose: 20 mg
[2024-03-28] MEDS: POTASSIUM CHLORIDE CRTAB 20 MEQ TABCR PO STA (13:29)
[2024-03-28] MEDS: FUROSEMIDE 40 MG/4 ML VIAL IV ONE (13:30)
[2024-03-29] MEDS: VANCOMYCIN LEVEL ONE (04:35)
[2024-03-29 04:36] LABS: Basophils # (auto) 0.04 K/uL (0.00-0.20); Basophils % (auto) 0.5 %; Eosinophils # (auto) 0.21 K/uL (0.00-0.50); Eosinophils % (auto) 2.5 %; Hematocrit (blood only) 39.6 % (42.0-52.0); Hemoglobin 13.5 g/dl (14.0-18.0); Immature Granulocytes # (auto) 0.03 K/uL (0.01-0.20); Immature Granulocytes % (auto) 0.4 %; Lymphocytes % (auto) 13.1 %; Mean Corpuscular Hemoglobin 36.5 pg (25.0-34.0); Mean Corpuscular Hgb Conc 34.1 g/dL (32.0-36.0); Mean Platelet Volume 9.4 fL (9.4-12.4); Monocytes # (auto) 0.83 K/uL (0.11-0.59); Monocytes % (auto) 9.9 %; Neutrophils # (auto) 6.17 K/uL (1.40-6.50); Neutrophils % (auto) 73.6 %; Platelet Count 153 K/uL (130-400); RDW Coefficient of Variation 14.4 % (11.5-14.5); White Blood Count 8.38 K/ul (4.8-10.8)
[2024-03-29 04:53] LABS: BUN Creatinine Ratio 20.9 (10-20); Calcium 8.2 mg/dl (8.6-10.3); Creatinine Clr Calc Pharmacy 56.1 ml/min; Potassium 3.9 mmol/L (3.5-5.1)
[2024-03-29 07:38] VITALS: RESP 18
--- NOTE | 2024-03-29 10:47 | Hospitalist Progress Note ---
Date of Service March 29, 2024 Assessment & Plan Admission and Anticipated Discharge Date Admission Date: March 26, 2024 Results & Data Results & Data Vital Signs (Past 12 Hours) Vital Signs Temp Pulse Pulse Pulse Resp BP Pulse Ox 03/29/24 09:49 03/29/24 07:47 82 03/29/24 07:37 36.3 C L 84 18 121/66 94 03/28/24 23:49 37.1 C 85 20 105/72 92 O2 Del Method O2 Flow Rate 03/29/24 09:49 Nasal Cannula 2 03/29/24 07:47 03/29/24 07:37 Nasal Cannula 3 03/28/24 23:49 Room Air
--- NOTE | 2024-03-29 11:12 | Pharmacy Report ---
Pharmacy PK ABX Note - Date of Service March 29, 2024 - Assessment and Plan Assessment 83 year old M receiving vancomycin and Unasyn for treatment of nasal cellulitis/abscess. MRSA nasal (+), nose culture (03/27) growing MRSA. Renal function stable. Discussed w/ hospitalist today, there is concern for possible progression to meningitis so will be continuing vancomycin/Unasyn. ID consulted. Day #4 of antimicrobial therapy. Plan Vancomycin * Current regimen: 1500 mg IV every 24 hours * Trough level obtained 03/29/24 resulted as 7 mcg/mL. * Change to 1000 mg IV every 12 hours * Predicted AUC at steady state: 557 mg/L.hr * Will repeat level on 03/31/24 Ampicillin/sulbactam * 3 g IV q6h - no change Pharmacy will continue to follow and will adjust dose/frequency as necessary. Thank you. Pharmacy has transitioned to AUC monitoring for vancomycin. AUC/SARA is the preferred PK/PD target and is associated with decreased risk of nephrotoxicity compared to traditional trough targets.
[2024-03-29 11:53] VITALS: BP 101/66; TEMP 97.7; O2SAT 96
--- NOTE | 2024-03-29 12:35 | History & Physical Bridge Note ---
Date of Service March 29, 2024 History & Physical Bridge Note Patient has no pain. Grew swab positive MRSA sensitive to vancomycin Exam shows less swelling and erythema Continue same
--- NOTE | 2024-03-29 14:31 | Infectious Disease Consult ---
Date of Service March 29, 2024 Telehealth Information I performed this visit using a real-time telehealth connection between my location and the patients location ([facility]). After connecting through interactive tele-video, patient was identified by name and date of and/or wristband check.Patient (or authorized healthcare product representative) was informed that this was a telemedicine visit and it was being conducted confidentially over secure lines. My office door was closed and no one else was present in the room with me.Patient (or authorized healthcare product representative) provided consent to proceed with the visit, expressed an understanding of privacy and security of the telemedicine visit, and gave permission to have a hospital product representative in the room in order to assist with the visit and to conduct portions of the visit, as needed. I informed the patient (or authorized healthcare product representative) that I reviewed their record and presented the opportunity for them to ask any questions regarding the visit today. The patient agreed to participate. Assessment & Plan (1) Facial cellulitis: Plan: CT imaging shows small nasal abscess, but hopefully small enough to resolve with abx alone. Clinical improvement already noted after 2-3 days of IV abx. No fevers or bacteremia noted. Plan OK to D/C vancomycin and ampicillin-sulbactam. Recommend clindamycin 300mg po qid x 10 more days. If not completely resolved by then, repeat CT imaging would be suggested to reassess abscess. History of Present Illness History of Present Illness Mr. Silvestre is an 83yo male with a h/o CHF, S/P watchmen device implantation, who was admitted to [facility] on 03/26/24 with a 3 day h/o progressive pain, swelling and erythema of his right nose and face. He said it started as an area of redness with "white pimples". He had no known trauma and no prior h/o similar i nfections. He had no fevers, but was noted to have cellulitis on exam. He was started on abx with Unasyn, followed by the addition of vancomycin. CT imaging showed a small 1cm sized abscess and ENT was consulted, but felt no intervention was necessary. The patient believes the swelling has improved in the meantime, but is still uncomfortable. He otherwise feels well. No HYDE, no N/V, no diarrhea, no rash elsewhere. Allergies Allergy/AdvReac Type Severity Reaction Status Date / Time adhesive Allergy Mild BLISTER Verified 03/26/24 10:35 SKIN levofloxacin [From Levaquin] Allergy Unknown CAN'T Verified 03/26/24 10:35 REMEMBER sertraline AdvReac Severe hallucinati Verified 03/26/24 10:35 ons duloxetine [From Cymbalta] AdvReac Intermediate confusion Verified 03/26/24 10:35 Home Medications Medication Instructions Recorded Confirmed Type finasteride 5 mg tablet 5 mg PO PM 06/09/21 03/26/24 History acetaminophen 500 mg tablet 1,000 mg PO AMPM 07/13/23 03/26/24 History allopurinol 300 mg tablet 300 mg PO QAM 07/13/23 03/26/24 History aspirin 81 mg chewable tablet 81 mg PO QAM 07/13/23 03/26/24 History docusate sodium 100 mg capsule 100 mg PO BID 07/13/23 03/26/24 History clopidogrel 75 mg tablet 75 mg PO DAILY 08/26/23 03/26/24 History furosemide 20 mg tablet (Lasix) 40 mg PO QAM 12/04/23 03/26/24 History ketoconazole 2 % topical cream 1 applic topical UD PRN Itching 12/04/23 03/26/24 History gabapentin 300 mg capsule 300 mg PO TID #90 caps 12/14/23 03/26/24 Rx meclizine 12.5 mg tablet 12.5 mg PO BID PRN Dizziness #30 12/14/23 03/26/24 Rx tabs metoprolol succinate 25 mg 25 mg PO QAM #30 tabs 12/14/23 03/26/24 Rx tablet,extended release 24 hr pantoprazole 40 mg tablet,delayed 40 mg PO QAM #30 tabs 12/14/23 03/26/24 Rx release quetiapine 25 mg tablet 12.5 mg (1/2 x 25 mg) PO HS #30 12/14/23 03/26/24 Rx tabs rosuvastatin 20 mg tablet 20 mg PO QAM #30 tabs 12/14/23 03/26/24 Rx azelastine 137 mcg (0.1 %) nasal 2 spray intranasal BID 03/26/24 03/26/24 History spray desloratadine 5 mg tablet 10 mg PO UD 03/26/24 03/26/24 History hydrocortisone acetate 25 mg 25 mg LA UD 03/26/24 03/26/24 History rectal suppository (Anucort-HC) Patient History Medical History Chronic hypoxic respiratory failure, on home oxygen therapy Visual hallucinations AMS (altered mental status) CHF (congestive heart failure) Atrial fibrillation on eliquis bid--follows with Dr. Barraza HTN (hypertension) Mitral regurgitation Presence of Watchman left atrial appendage closure device Occipital stroke Osteoarthritis History of kidney stones Rectal bleeding reason for scheduled colonoscopy Surgical History S/P TURP H/O cystoscopy H/O mitral valve repair Amputation of left hand History of lumbar discectomy History of appendectomy History of tooth extraction all top teeth removed History of tonsillectomy and adenoidectomy History of bilateral cataract extraction 2020 Family History Other No family history of adverse response to anesthesia No pertinent family history Social History Smoking Status: Never smoker Tobacco Type: Cigarettes Second Hand Exposure: No; Do You Dip or Chew Tobacco: No; Hx Alcohol Use: No Hx Substance Use: No Preferred Language: Swedish Communication Ability: Effective 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 Required: No Beliefs That Will Affect Care: None Current Living Situation: Alone Current Living Situation Comment: Has dementia Other Information That Helps Us Care for You: No Feels Safe at Home: Yes Safety Concerns: Feels Safe At This Time Assistive Devices: Cane, Oxygen - Continuous and Walker Review of Systems Gen -No fevers, chills or night sweats HEENT- No HYDE, but nose and face swelling as per HPI Resp- No SOB or cough, but does get winded with exertion CV- No chest pain GI- No N/V or diarrhea - No dysuria MSK- no joint pain or swelling Skin- No rash Neuro- No focal deficit Physical Exam Gen- NAD, cooperative with exam HEENT- Nasal swelling and erythema Resp- Tachypneic on BNC O2 after ambulating back from bathroom Skin- No rash Neuro- Alert and oriented Results & Data Vital Signs (Past 12 Hours) Vital Signs Temp Pulse Pulse Resp BP BP Pulse Ox 03/29/24 11:52 36.5 C 85 18 101/66 96 03/29/24 09:49 03/29/24 07:47 82 03/29/24 07:37 36.3 C L 84 18 121/66 94 O2 Del Method O2 Flow Rate 03/29/24 11:52 Room Air 03/29/24 09:49 Nasal Cannula 2 03/29/24 07:47 03/29/24 07:37 Nasal Cannula 3 Laboratory Results WBC 10.91 -> 8.38 Hgb 13.5 Platelets 153 Creatinine 1.1 BUN 23 Diagnostic Findings RVP negative Blood cultures 03/26/24 NGTD Wound culture from 03/27/24 with MRSA
--- NOTE | 2024-03-29 16:27 | Discharge Summary ---
Discharge Summary Date of Service March 29, 2024 Principal Dx & Hospital Course #1 = Principal Diagnosis (1) Facial cellulitis: (2) Abscess of nose: Plan Nikolas Silvestre is an 83y/o M with PMHx significant for chronic diastolic heart failure, chronic respiratory failure with hypoxia, DEX intolerant to BiPAP, severe mitral regurgitation s/p MitraClip repair, permanent atrial fibrillation s/p Watchman device placement, CAD, severe tricuspid regurgitation, HTN, BPH, gout, aortic root enlargement, history of CVA and anxiety/mood disorder who presented to the ED for evaluation of a right-sided nasal infection and pain. He was found to have right nasal fold cellulitis with abscess formation on admission. Right Nasal Fold Cellulitis & Abscess: No leukocytosis. Procalcitonin negative. Vitals stable, no evidence of sepsis. Face CT revealed findings suggestive of right nasal fold cellulitis with 1.2cm probable abscess. ENT surgery was consulted. recommended or stated the following: -03/27/24-"Patient is being treated with IV antibiotic therapy. He should improve. He should have vancomycin for methicillin-resistant Staphylococcus bacteria." -03/28/24-"History & Physical Bridge Note Patient had a CT scan which shows that there is less swelling over the maxillary area. There is likely a subcutaneous abscess over the tip of the nose on that right side. Patient does feel better. Examination today shows there is much less erythema and edema. There is still 1 pustule over the tip of the nose on the right side. Impression: Patient has improved on IV medication. Results have grown staff aureus. Sensitivities are only not yet available. Plan: We will continue the same treatment. I have asked the nurse to unroof the area over the tip of the nose on the right side where there is a pustule." -ED provider spoke with the ENT surgeon on-call, Dr. Andre Platt, who recommended proceeding with IV antibiotic therapy for now without any emergent need for surgical intervention. - S/p IV vancomycin + Unasyn -MRSA screen positive -Blood culture NGTD -Pain control PRN -Isolation precautions given positive MRSA screen -Probiotic added. Infectious Disease Was consulted and saw the patient on day of discharge 03/29/24 "CT imaging shows small nasal abscess, but hopefully small enough to resolve with abx alone. Clinical improvement already noted after 2-3 days of IV abx. No fevers or bacteremia noted. Plan OK to D/C vancomycin and ampicillin-sulbactam. Recommend clindamycin 300mg po qid x 10 more days. If not completely resolved by then, repeat CT imaging would be suggested to reassess abscess." at the time of discharge patient stable, not septic please ensure follow-up with ENT after discharge. Chronic Hypoxic Respiratory Failure: On 2L via NC at baseline, will continue. Monitor respiratory status closely. PCP follow-up. Persistent Atrial Fibrillation S/P Watchman Procedure: Continue home metoprolol succinate, continuous cardiac monitoring. PCP and cardiology follow-up. Prediabetes: Hemoglobin A1c was 5.6% on 07/02/2022. Patient currently in prediabetic range with hemoglobin A1c of 5.9. PCP follow-up Chronic Diastolic Heart Failure, HTN & H/O CVA Severe Mitral Regurgitation S/P Surgery, Tricuspid Regurgitation & Peripheral Vascular Disease: CXR shows cardiomegaly with pulmonary vascular congestion and probable trace pleural effusions with mild bibasilar densities favoring atelectasis. Echocardiogram from 10/18/2023 --> mildly increased concentric LV wall thickness, LVEF of 55 to 59%, severely enlarged left atrium, mild mitral regurgitation and mild tricuspid regurgitation. Continue home furosemide, euvolemic on examination. continue home Plavix and ASA. PCP and cardiology follow-up Other Chronic Medical Conditions: BPH, seasonal allergies, gout, GERD, anxiety/mood disorder --> Can continue home medications for these specific conditions. PCP follow Notes For Next Care Provider please ensure follow-up with ENT Please ensure repeat imaging to confirm resolution of abscess/symptoms after completion of antibiotics per ID Medication Changes From Visit clindamycin 300 mg 4 times daily for 10 days probiotic Admission HPI Per Admitting Provider Nikolas Silvestre is an 83y/o M with PMHx significant for chronic diastolic heart failure, chronic respiratory failure with hypoxia, DEX intolerant to BiPAP, severe mitral regurgitation s/p MitraClip repair, permanent atrial fibrillation s/p Watchman device placement, CAD, severe tricuspid regurgitation, HTN, BPH, gout, aortic root enlargement, history of CVA and anxiety/mood disorder who presented to the ED for evaluation of a right-sided nasal infection and pain. History obtained from patient and associated chart review. Patient with right nare inflammation, swelling, erythema and pain that has progressively gotten worse over the past 3 days. He mentions that he first noticed a small pimple-li ke formation on the right side of his nose about a week or so ago. He does endorse a runny nose however he mentions that it is entirely too painful to try and blow his nose. He has been attempting to use warm compresses without much improvement. He has not noticed any drainage from the area. Denies any fevers, chills or body aches. He wears 2L of supplemental O2 at baseline. No increasing SOB or chest pain that he recalls. He does currently have a headache but otherwise denies any other neurological concerns. Admission Exam Per Admitting Provider General Appearance:Obese, no apparent distress Head: normocephalic, Atraumatic, + right nasal fold/nose erythema, swelling, tender,+ pustule Eyes: normal inspection, EOMI Neck: supple, Trachea midline Respiratory/Chest: Decreased breath sounds, CTA, No accessory muscle use Cardiovascular: Irregularly irregular, No murmur Abdomen/GI:Soft, Non tender, Bowel sounds present, + abdominal hernia Extremities/Musculoskeletal:normal inspection, no edema, +Left hand amputation Neurologic/Psych:AAOX3, grossly no focal neurological deficits Skin: normal color, warm Discharge Exam General: Alert, oriented. No acute distress Psych: Appropriate mood and affect Neuro: AAOx3, No gross deficits HEENT: NC/AT, R nose with noted black scabs, slight erythema CV: RRR Resp: Breath sounds clear bilaterally, no increased effort of breathing Abdomen: Soft, nontender Extremities: left hand with noted deformity Updated Medication List Medication Instructions Recorded Confirmed Type finasteride 5 mg tablet 5 mg PO PM 06/09/21 03/26/24 History acetaminophen 500 mg tablet 1,000 mg PO AMPM 07/13/23 03/26/24 History allopurinol 300 mg tablet 300 mg PO QAM 07/13/23 03/26/24 History docusate sodium 100 mg capsule 100 mg PO BID 07/13/23 03/26/24 History clopidogrel 75 mg tablet 75 mg PO DAILY 08/26/23 03/26/24 History furosemide 20 mg tablet (Lasix) 40 mg PO QAM 12/04/23 03/26/24 History ketoconazole 2 % topical cream 1 applic topical UD PRN Itching 12/04/23 03/26/24 History gabapentin 300 mg capsule 300 mg PO TID #90 caps 07/02/24 10/13/24 Rx meclizine 12.5 mg tablet 12.5 mg PO BID PRN Dizziness #30 12/14/23 03/26/24 Rx tabs metoprolol succinate 25 mg 25 mg PO QAM #30 tabs 12/14/23 03/26/24 Rx tablet,extended release 24 hr pantoprazole 40 mg tablet,delayed 40 mg PO QAM #30 tabs 12/14/23 03/26/24 Rx release quetiapine 25 mg tablet 12.5 mg (1/2 x 25 mg) PO HS #30 12/14/23 03/26/24 Rx tabs rosuvastatin 20 mg tablet 20 mg PO QAM #30 tabs 12/14/23 03/26/24 Rx azelastine 137 mcg (0.1 %) nasal 2 spray intranasal BID 03/26/24 03/26/24 History spray desloratadine 5 mg tablet 10 mg PO UD 03/26/24 03/26/24 History hydrocortisone acetate 25 mg 25 mg MA UD 03/26/24 03/26/24 History rectal suppository (Anucort-HC) L.acidop,casei,lactis,rham-B.lact,quentin 1 cap PO DAILY #30 caps 03/29/24 Rx 625 mg (10 billion cell) capsule (Advanced Probiotic) clindamycin HCl 300 mg capsule 300 mg PO QID #40 caps 03/29/24 Rx Hospital Stay Data Consultations 03/26/24 11:25 Consult Otolaryngology (Head and Neck) Routine 03/26/24 11:35 ED Decision to Admit Stat 03/27/24 13:42 Consult Patient Rep [Consult Patient Services] Routine 03/28/24 12:52 Consult Infectious Diseases Routine Diagnostic Imagining Performed 03/26/24 09:58 CT face [CT facial bones w con] Stat 03/27/24 14:33 CT face [CT facial bones w con] Routine Face CT 03/26/24 09:58 CT facial bones w con HISTORY: 83 years-old Male nasal/maxillary cellulitis/abscess acute facial pain with soft tissue swelling COMPARISON: None TECHNIQUE: Multiple axial CT images of the facial bones were obtained with IV contrast. A dose lowering technique was used consistent with the principals of OPAL. FINDINGS: The imaged intracranial structures demonstrate no acute abnormality. The imaged vasculature of the neck is within normal limits. Atherosclerosis of the carotid arteries. Prior bilateral lens repair. [place] air cells and middle ear cavities are clear. Prior partial ethmoidectomy with mild mucosal thickening of the residual ethmoid air cells. There is a small focus of polypoid coastal thickening within the inferior right maxillary sinus. Multilevel degenerative changes of the cervical spine. Patent airway. Subcentimeter calcifications of the left parotid gland. No lymphadenopathy. There is subcutaneous edema and enhancement involving the right nasal fold with a centrally hypodense peripherally enhancing 1.2 x 0.5 x 0.8 cm lesion on image 146 series 3. IMPRESSION: 1. Findings suggestive of right nasal fold cellulitis with 1.2 cm probable abscess. A peripherally enhancing soft tissue mass could appear similarly however considered less likely. 2. No lymphadenopathy. 3. Patent airway. ACT 112: Negative or not required by law. The above report was generated using voice recognition software. It may contain grammatical, syntax or spelling errors. Electronically signed by: Ozzie Zhao M.D. 03/26/2024 11:10 AM Chest X-Ray 03/26/24 09:59 XR chest 1V portable HISTORY: 83 years-old Male hypoxia acute hypoxia COMPARISON: 12/04/2023 TECHNIQUE: AP view of the chest FINDINGS: Cardiac silhouette is enlarged. Pulmonary vascular congestion. Surgical clips project over the left heart border. No pneumothorax. Probable trace pleural effusions with mild bibasilar densities. IMPRESSION: 1. Cardiomegaly with pulmonary vascular congestion. 2. Mild bibasilar opacities favor atelectasis. ACT 112: Negative or not required by law. The above report was generated using voice recognition software. It may contain grammatical, syntax or spelling errors. Electronically signed by: Ozzie Zhao M.D. 03/26/2024 10:[address] 03/27/24 14:33 CT FACIAL BONES WITH IV CONTRAST CLINICAL HISTORY: Paranasal abscess. Pain and swelling COMPARISON STUDY: Facial bone CT dated 03/26/2024. TECHNIQUE: High resolution CT scan of the facial bones is performed following the IV administration of 94 cc of Optiray 320. Images are reviewed in the axial, sagittal, and coronal planes. IV contrast was administered without complication. A dose lowering technique was used consistent with the principals of ALARA. FINDINGS: The imaged intracranial structures demonstrate no acute abnormality. The imaged vasculature of the neck is within normal limits. Atherosclerosis of the carotid arteries. The bony orbits are intact. Orbital contents are normal as images noting bilateral ocular lens implant. The mastoid air cells are well pneumatized. Postsurgical changes noted in the paranasal sinuses. There is mild mucosal thickening within the ethmoid cavity in the right maxillary antrum. The imaged cervical spine appears intact noting multilevel degenerative change Patent airway. Calcified sialoliths are seen in the left parotid gland. No lymphadenopathy. Again seen is subcutaneous edema and enhancement involving the right nasal fold with a centrally hypodense peripherally enhancing 0.9 x 1.2 x 0.6 cm fluid collection seen on image #91 of 161. IMPRESSION: 1. There is unchanged appearance of right paranasal cellulitis with a 1.2 cm fluid collection that is typical in appearance for a small abscess. Clinical follow-up to resolution is recommended to exclude the unlikely possibility of underlying soft tissue lesion. 2. No acute facial bone abnormality is identified. ACT 112: Negative or not required by law. Electronically signed by: Tobi Swenson M.D. 03/27/2024 4:06 PM Discharge Instructions Given to Patient (Per Discharging Provider) Yaniv [place], You were seen by the infectious disease specialist and they recommend discharge home with medication clindamycin that you can take orally. Please take 1 pill every 6 hours or 4 times a day for the next 10 days. Please keep close follow- up with your ear, nose, throat specialist as well as your primary care provider after discharge. You will need additional imaging. Again, please keep close follow up with your primary care provider after discharge. Please do not hesitate to come back to the emergency room if your symptoms worsen or return. It was a pleasure taking care of you while you were here. Total Time Total Time Spent Total Time Spent (In Minutes): 65
[2024-03-29 16:47] VITALS: PULSE 85
[2024-03-29] MEDS ORDERED: VANCOMYCIN HCL 1,000 MG in SODIUM CHLORIDE 0.9% 250 ML IV SCH (21:00)
== END 2024-03-29 17:36 | disposition home or self-care (01) | DRG 155 ==
LOC: ED 09:39 → 2N 11:40 → SUATTDRO 11:40 → 2N 12:33